=== PATIENT | female | born 1960 | race Caucasian/White ===

== ENCOUNTER → 2017-05-18 | Outpatient (CLI) | payer OTHER ==
[~2017-05-18] MED LIST: ADVIN25/60 INH; ALL100 PO; AMIL5TAB15 PO; ASPI81TA28 PO; ATOR-22 PO; ATOR-24 PO; BISO10TA4 PO; BISO5TAB3 PO; BUME2TAB3 PO; BUPR-79 PO; BUPR300T43 PO; BUSP-8 PO; BUSP15TA70 PO; CALC500C2 PO; CEFT1INJ6 IV; CHOL20007 PO; CLOP1TAB54 PO; CYAN10005 PO; DULO60CA44 PO; FAMO20TA11 PO; FLNIN; FLUT0.15 NAE; FLUTICASONE PROP INH; GABA-113 PO; HYDR-4079 PO; LVNIS40 SQ; METH-445 PO; METO5TAB2 PO; MONT1TAB5 PO; MULT-506 PO; NORT50CA PO; PANT40TA PO; QUET400T PO; SENN-61 PO; TRAZ100T29 PO; TRAZ1TAB52 PO; VENTOLIN INHALER INH; VNTHFA/IN INH
--- NOTE | 2017-05-18 12:43 | DIAGNOSTIC IMAGING REPORT ---
PELVIC COMPLETE NON OB, TRANSVAG-FEMALE PELVIS CLINICAL HISTORY: 56 years-old Female presenting with R19.00 Abdominal [id number]. TECHNIQUE: Real-time grayscale and color and spectral Doppler ultrasound imaging of the pelvis was performed first using a transabdominal probe and subsequently transvaginal for better characterization. COMPARISON: None. FINDINGS: Limited image quality secondary to patient body habitus. Uterus: Normal. Anteverted. The uterus measures 6.4 x 3.9 x 4.7 cm. Endometrial stripe measures 7 mm in thickness. Endometrium normal-appearing. Cervix normal. Right adnexa: Right ovary not visualized. Left adnexa: Left ovary not visualized. Other: Suspected bladder diverticulum extending into the left adnexa. IMPRESSION: Normal uterus. Nonvisualization of the ovaries. Electronically signed by: Chris Stuart M.D. 05/18/2017 12:42 PM Dictated Date/Time: 05/18/2017 12:39 PM
--- NOTE | 2017-05-18 12:43 | DIAGNOSTIC IMAGING REPORT ---
PELVIC COMPLETE NON OB, TRANSVAG-FEMALE PELVIS CLINICAL HISTORY: 56 years-old Female presenting with R19.00 Abdominal [id number]. TECHNIQUE: Real-time grayscale and color and spectral Doppler ultrasound imaging of the pelvis was performed first using a transabdominal probe and subsequently transvaginal for better characterization. COMPARISON: None. FINDINGS: Limited image quality secondary to patient body habitus. Uterus: Normal. Anteverted. The uterus measures 6.4 x 3.9 x 4.7 cm. Endometrial stripe measures 7 mm in thickness. Endometrium normal-appearing. Cervix normal. Right adnexa: Right ovary not visualized. Left adnexa: Left ovary not visualized. Other: Suspected bladder diverticulum extending into the left adnexa. IMPRESSION: Normal uterus. Nonvisualization of the ovaries. Electronically signed by: Chris Stuart M.D. 05/18/2017 12:42 PM Dictated Date/Time: 05/18/2017 12:39 PM
== END | disposition home or self-care (01) ==
LOC: C.ULTR 11:51
PROVIDERS: ATTEND Family Medicine
DX: R19.00 Intra-abdominal and pelvic swelling, mass and lump, unspecified site (principal)

== ENCOUNTER 2017-07-23 11:32 | Inpatient (IN) | payer OTHER ==
[~2017-07-23] VITALS: Ht 180.3 cm; Wt 193.5 kg
--- NOTE | 2017-07-23 12:25 | EMERGENCY ROOM VISIT NOTE ---
History Report prepared by Diane: Chano Chavarria Under the Supervision of: Dr. Will Crump M.D. First contact with patient: 12:13 Chief Complaint: NEURO SYMPTOMS Stated Complaint: STOKE A MONTH AGO, LEG CANT MOVE, TINGLING History of Present Illness The patient is a 56 year old female who presents to the Emergency Room with complaints of worsening left leg weakness that started around 10 hours ago. She states that she was awake, and around 0200 this morning, she noticed that her left leg "did not feel right", and she had problems moving the leg. The patient says that she also noticed tingling in her bilateral extremities starting around the same time this morning. She adds that she has had worsening balance issues starting this morning. The patient states that she had a similar problem with her left leg 3 weeks ago, where should could not move it, and she was seen at the [facility], and then sent to [place]. The patient says that she was told that she had a mini-stroke, and she received tPA, but it did not make a noticeable difference, so she was sent for rehab. She notes that she was discharged from rehab last week, but was still having some problems with weakness with her left leg, but this morning, the symptoms worsened. Per the patient's family, the patient was not able to walk into the hospital today, and usually is okay using a walker or cane. The patient says that it was not able to be determined what caused the mini-stroke. She states that she was put on Aspirin after the mini-stroke. The patient denies any left arm problems, facial numbness, cough, congestion, fevers, or headaches. The patient notes no history of atrial fibrillation or atrial flutter. She is not on any thyroid medications. Source of History: patient, family Onset: Around 10 hours ago Position: leg (left) Symptom Intensity: hard time moving it Quality: other (weakness) Timing: worsening Associated Symptoms: No fevers, No headache, No cough (or congestion), No numbness (facial) Note: Associated symptoms: Balance difficulties. Tingling bilateral extremities. Denies left arm problems, facial neuro problems. Review of Systems See HPI for pertinent positives & negatives. A total of 10 systems reviewed and were otherwise negative. Past Medical & Surgical Medical Problems: (1) Left leg weakness (2) TIA (transient ischemic attack) Family History No pertinent family history Social History Drug Use: none Marital Status: Occupation Status: disabled Current/Historical Medications Scheduled Allopurinol (Allopurinol), 1 TAB PO BID Amiloride Hcl (Amiloride Hcl), 1 TAB PO QAM Aspirin (Aspirin Ec), 81 MG PO QAM Atorvastatin (Lipitor), 20 MG PO QAM Bisoprolol Fumarate (Bisoprolol Fumarate), 5 MG PO QAM Bumetanide (Bumex), 2 MG PO QAM Bupropion (Wellbutrin Sr), 150 MG PO UD Buspirone Hcl (Buspirone Hcl), 15 MG PO TID Calcium Carbonate (Antacid) (Antacid), 0 PO UD Cholecalciferol (Vitamin D3), 1 TAB PO TID Clopidogrel Bisulfate (Plavix), 75 MG PO QAM Cyanocobalamin (Vitamin B-12), 1,000 MCG PO QAM Duloxetine Hcl (Cymbalta), 60 MG PO DAILY Famotidine (Pepcid), 20 MG PO UD Fluticasone Prop/Salmeterol (Advair Diskus 250/50 60 Dose), 1 PUFF INH BID Gabapentin (Neurontin), 900 MG PO HS Methocarbamol (Robaxin), 500 MG PO TID Metoclopramide Hcl (Metoclopramide Hcl), 5 MG PO QID Montelukast Sodium (Montelukast Sodium), 1 TAB PO DAILY Multivitamin (Multivitamin), 1 TAB PO DAILY Nortriptyline (Pamelor), 150 MG PO HS Quetiapine Fumarate (Seroquel), 400 MG PO HS Trazodone Hcl (Trazodone), 150 MG PO HS [Fluticasone Prop], 2 SPRAYS INH TID Scheduled PRN Hydrocodone/Acetaminophen 10MG/325MG (Dunellen 10MG/325MG), 1 TAB PO Q8H PRN for Pain [Ventolin Inhaler], 2 PUFFS INH Q4H PRN for Shortness of Breath Allergies Coded Allergies: Corticosteroids (Unverified Allergy, Intermediate, RASH, 07/23/17) Morphine (Unverified Allergy, Intermediate, MOUTH SWELLS/FACE SWELLS, ) Penicillins (Unverified Allergy, Intermediate, RASH/HIVES, 07/23/17) Prednisone (Unverified Allergy, Intermediate, RED RASH, 07/23/17) Pregabalin (Unverified Allergy, Intermediate, GOOFY, 07/23/17) Zolpidem (Unverified Allergy, Intermediate, UNSURE, 07/23/17) Physical Exam Vital Signs Date Time Temp Pulse Resp B/P (MAP) Pulse Ox O2 Delivery O2 Flow Rate FiO2 07/23/17 16:30 73 20 132/68 93 Room Air 07/23/17 16:00 72 20 142/94 94 Room Air 07/23/17 14:04 73 20 124/68 93 Room Air 07/23/17 13:11 77 20 130/81 95 Room Air 07/23/17 12:34 78 07/23/17 12:33 93 Room Air 07/23/17 12:29 36.8 78 20 126/81 95 Room Air Physical Exam GENERAL: Patient is in no acute distress. HEENT: No acute trauma, normocephalic atraumatic, mucous membranes moist, no nasal congestion, no scleral icterus. NECK: No stridor, no adenopathy, no meningismus, trachea is midline. LUNGS: Clear to auscultation bilaterally, no wheeze, no rhonchi, breath sounds equal. HEART: Without murmurs gallops or rubs, regular rate and rhythm. ABDOMEN: Soft, nontender, bowel sounds positive, no hernias, no peritonitis. EXTREMITIES: No cyanosis or edema, full range of motion of all the joints without pain or difficulty, no signs for acute trauma. NEUROLOGIC: No cerebellar deficits. Upper extremity strength equal, no facial droop or speech slur. Left leg is definitely weaker than right but exam is difficult secondary to patient's body habitus. SKIN: No rash, no jaundice, no diaphoresis. Medical Decision & Procedures ER Provider Diagnostic Interpretation: CT results as stated below per my review and radiologist interpretation: CT SCAN OF THE BRAIN WITHOUT IV CONTRAST CLINICAL HISTORY: Strokelike symptoms. COMPARISON STUDY: No priors. TECHNIQUE: Unenhanced axial CT scan of the brain is performed from the vertex to the skull base. A dose lowering technique was utilized adhering to the principles of ALARA. The examination is modestly degraded by motion artifact. CT DOSE: 884.08 mGy.cm FINDINGS: Brain parenchyma: The brain parenchyma is normal in appearance. There is no hemorrhage, mass effect, or evidence of acute territorial ischemia by CT criteria. Robles-white matter is preserved. No extra-axial fluid collection is seen. Ventricles, sulci, cisterns: Normal in configuration. Intracranial vasculature: The visualized intracranial vasculature at the skull base is normal in appearance. Calvarium: Unremarkable. Sinuses and mastoids: The visualized paranasal sinuses are clear. The mastoid air cells are well pneumatized. Orbits: The bony orbits are grossly intact. IMPRESSION: There is no hemorrhage, mass effect, or evidence of acute territorial ischemia by CT criteria noting a motion degraded examination. Electronically signed by: Will Hussein M.D. 07/23/2017 1:03 PM Dictated Date/Time: 07/23/2017 1:01 PM Laboratory Results 07/23/17 12:30 Red Blood Count 4.85, Mean Corpuscular Volume 85.4, Mean Corpuscular Hemoglobin 27.8, Mean Corpuscular Hemoglobin Concent 32.6, Mean Platelet Volume 9.8, Neutrophils (%) (Auto) 70.8, Lymphocytes (%) (Auto) 20.2, Monocytes (%) (Auto) 4.5, Eosinophils (%) (Auto) 4.0, Basophils (%) (Auto) 0.2, Neutrophils # (Auto) 6.32, Lymphocytes # (Auto) 1.80, Monocytes # (Auto) 0.40, Eosinophils # (Auto) 0.36, Basophils # (Auto) 0.02 07/23/17 12:30 Test 07/23/17 12:30 White Blood Count 8.93 K/uL (4.8-10.8) Red Blood Count 4.85 M/uL (4.2-5.4) Hemoglobin 13.5 g/dL (12.0-16.0) Hematocrit 41.4 % (37-47) Mean Corpuscular Volume 85.4 fL (80-100) Mean Corpuscular Hemoglobin 27.8 pg (25-34) Mean Corpuscular Hemoglobin Concent 32.6 g/dl (32-36) Platelet Count 268 K/uL (130-400) Mean Platelet Volume 9.8 fL (7.4-10.4) Neutrophils (%) (Auto) 70.8 % Lymphocytes (%) (Auto) 20.2 % Monocytes (%) (Auto) 4.5 % Eosinophils (%) (Auto) 4.0 % Basophils (%) (Auto) 0.2 % Neutrophils # (Auto) 6.32 K/uL (1.4-6.5) Lymphocytes # (Auto) 1.80 K/uL (1.2-3.4) Monocytes # (Auto) 0.40 K/uL (0.11-0.59) Eosinophils # (Auto) 0.36 K/uL (0-0.5) Basophils # (Auto) 0.02 K/uL (0-0.2) RDW Standard Deviation 46.8 fL (36.4-46.3) RDW Coefficient of Variation 15.0 % (11.5-14.5) Immature Granulocyte % (Auto) 0.3 % Immature Granulocyte # (Auto) 0.03 K/uL (0.00-0.02) Prothrombin Time 10.7 SECONDS (9.0-12.0) Prothromb Time International Ratio 1.0 (0.9-1.1) Activated Partial Thromboplast Time 25.4 SECONDS (21.0-31.0) Partial Thromboplastin Ratio 1.0 Urine Color YELLOW Urine Appearance CLEAR (CLEAR) Urine pH 6.0 (4.5-7.5) Urine Specific [place] 1.007 (1.000-1.030) Urine Protein NEG (NEG) Urine Glucose (UA) NEG (NEG) Urine Ketones NEG (NEG) Urine Occult Blood NEG (NEG) Urine Nitrite NEG (NEG) Urine Bilirubin NEG (NEG) Urine Urobilinogen NEG (NEG) Urine Leukocyte Esterase SMALL (NEG) Urine WBC (Auto) 10-30 /hpf (0-5) Urine RBC (Auto) 0-4 /hpf (0-4) Urine Hyaline Casts (Auto) 1-5 /lpf (0-5) Urine Epithelial Cells (Auto) >30 /lpf (0-5) Urine Bacteria (Auto) 1+ (NEG) Anion Gap 5.0 mmol/L (3-11) Est Creatinine Clear Calc Drug Dose 69.8 ml/min Estimated GFR () 39.8 Estimated GFR (Non- 34.3 BUN/Creatinine Ratio 8.3 (10-20) Calcium Level 9.2 mg/dl (8.5-10.1) Magnesium Level 2.1 mg/dl (1.8-2.4) Total Bilirubin 0.5 mg/dl (0.2-1) Direct Bilirubin 0.2 mg/dl (0-0.2) Aspartate Amino Transf (AST/SGOT) 23 U/L (15-37) Alanine Aminotransferase (ALT/SGPT) 42 U/L (12-78) Alkaline Phosphatase 98 U/L (45-117) Total Creatine Kinase 142 U/L (26-192) Creatine Kinase MB 3.0 ng/ml (0.5-3.6) Creatine Kinase MB Ratio 2.1 (0-3.0) Troponin I < 0.015 ng/ml (0-0.045) Total Protein 7.9 gm/dl (6.4-8.2) Albumin 3.6 gm/dl (3.4-5.0) Lipase 100 U/L (73-393) Thyroid Stimulating Hormone (TSH) 2.550 uIu/ml (0.300-4.500) Urine Opiates Screen POS (NEG) Urine Methadone, Qualitative NEG (NEG) Urine Barbiturates NEG (NEG) Urine Phencyclidine (PCP) Level NEG (NEG) Ur Amphetamine/Methamphetamine NEG (NEG) MDMA (Ecstasy) Screen POS (NEG) Urine Benzodiazepines Screen NEG (NEG) Urine Cocaine Metabolite NEG (NEG) Urine Marijuana (THC) NEG (NEG) Laboratory results reviewed by me. ECG Per My Interpretation Indication: weakness Rate (beats per minute): 82 Rhythm: normal sinus Findings: other (old inferior infarct, no ST elevation, no PVCs) ED Course 1213: The patient was evaluated in room C8. A complete history and physical exam was performed. 1413: I discussed the patient with Dr. Izzy De Jesus [facility] neurology - she says that she does not believe that this is a new stroke. We will talk to the patient about options, possibly physical therapy, based on what she can do at home. 1436: I reevaluated the patient and she is interested in some rehab. The shelter case manager is working on potential rehab options for her. 1717: Discussed the patient's case with Dr. Whit De Jesus [facility] stone derrickman and rigger. The patient will be evaluated for further management. 1718: Upon reexamination the patient is resting. I discussed results and treatment plan with the patient. She verbalizes agreement and understanding. The patient will be evaluated for further management. Medical Decision Differential diagnosis includes but is not limited to CVA, intracranial bleeding , UTI, electrolyte imbalance, anemia, infection, stroke. There is no leukocytosis or concerning anemia. No significant electrolyte abnormality, kidney failure or hepatitis. The patient appears to be in a euthyroid state. EKG shows a sinus rhythm, no acute ischemia. Cardiac enzyme testing 1 is not consistent with acute cardiac injury. Brain CT shows no acute bleed or mass-effect. Urinalysis shows contamination, no obvious infection. On exam, the patient's left leg was weaker than her right, no upper extremity findings, no speech slur. The patient was not toxic or febrile. I spoke with the on-call neurologist. The patient's weakness was felt likely secondary to her recent stroke, not a new stroke. The patient is not in any condition to be discharged home, she is too weak as per her family, they believe she requires further rehabilitation. Time was spent trying to get the patient placed into an inpatient rehab facility , this all failed. A hospital stay was recommended for now until placement can be achieved. I did review the records from the [facility], patient was diagnosed with a CVA, her stroke workup was negative. Case management has been involved, the on-call hospitalist was consulted. Medication Reconcilliation Current Medication List: was personally reviewed by me Blood Pressure Screening Patient's blood pressure: Normal blood pressure Consults Time Called: 1400 Consulting Physician: Dr. Izzy DE PAZ neurology Returned Call: 1413 I discussed the patient with Dr. Izzy DE PAZ neurology - she says that she does not believe that this is a new stroke. We will talk to the patient about options, possibly physical therapy, based on what she can do at home. Additional Consults: Time Called: 1715 Consulted Physician: Dr. Whit DE PAZ stone derrickman and rigger Returned Call: 1539 Additional Comments: Discussed the patient's case with Dr. Whit DE PAZ stone derrickman and rigger. The patient will be evaluated for further management. Impression Primary Impression: Left leg weakness Additional Impression: Status post CVA Scribe Attestation The scribe's documentation has been prepared under my direction and personally reviewed by me in its entirety. I confirm that the note above accurately reflects all work, treatment, procedures, and medical decision making performed by me. Departure Information Dispostion Being Evaluated By Hospitalist Referrals Etelvina Cazares DO (PCP) Patient Instructions [facility] Problem Qualifiers
[2017-07-23 12:43] LABS: BASO % 0.2 %; BASO ABS # 0.02 K/uL (0-0.2); EOS ABS # 0.36 K/uL (0-0.5); HEMATOCRIT 41.4 % (37-47); HEMOGLOBIN 13.5 g/dL (12.0-16.0); IG# 0.03 K/uL (0.00-0.02); LYMPH % 20.2 %; MEAN CELL VOLUME 85.4 fL (80-100); MEAN CORPUSCULAR HEMOGLOBIN 27.8 pg (25-34); MEAN CORPUSCULAR HGB CONC 32.6 g/dl (32-36); MEAN PLATELET VOLUME 9.8 fL (7.4-10.4); MONO % 4.5 %; NEUT % 70.8 %; NEUT ABS # 6.32 K/uL (1.4-6.5); PLATELET COUNT 268 K/uL (130-400); RED CELL DISTRIBUTION WIDTH SD 46.8 fL (36.4-46.3); WHITE BLOOD COUNT 8.93 K/uL (4.8-10.8)
[2017-07-23 12:52] LABS: PTT PATIENT 25.4 SECONDS (21.0-31.0)
[2017-07-23 13:01] LABS: ALBUMIN 3.6 gm/dl (3.4-5.0); ALT/SGPT 42 U/L (12-78); BLOOD UREA NITROGEN 14 mg/dl (7-18); CALCIUM 9.2 mg/dl (8.5-10.1); CARBON DIOXIDE 33 mmol/L (21-32); CREATININE 1.67 mg/dl (0.60-1.20); GLUCOSE 108 mg/dl (70-99); LIPASE 100 U/L (73-393); POTASSIUM 3.8 mmol/L (3.5-5.1); SODIUM 138 mmol/L (136-145)
--- NOTE | 2017-07-23 13:05 | DIAGNOSTIC IMAGING REPORT ---
CT SCAN OF THE BRAIN WITHOUT IV CONTRAST CLINICAL HISTORY: Strokelike symptoms. COMPARISON STUDY: No priors. TECHNIQUE: Unenhanced axial CT scan of the brain is performed from the vertex to the skull base. A dose lowering technique was utilized adhering to the principles of ALARA. The examination is modestly degraded by motion artifact. CT DOSE: 884.08 mGy.cm FINDINGS: Brain parenchyma: The brain parenchyma is normal in appearance. There is no hemorrhage, mass effect, or evidence of acute territorial ischemia by CT criteria. Robles-white matter is preserved. No extra-axial fluid collection is seen. Ventricles, sulci, cisterns: Normal in configuration. Intracranial vasculature: The visualized intracranial vasculature at the skull base is normal in appearance. Calvarium: Unremarkable. Sinuses and mastoids: The visualized paranasal sinuses are clear. The mastoid air cells are well pneumatized. Orbits: The bony orbits are grossly intact. IMPRESSION: There is no hemorrhage, mass effect, or evidence of acute territorial ischemia by CT criteria noting a motion degraded examination. Electronically signed by: Will Hussein M.D. 07/23/2017 1:03 PM Dictated Date/Time: 07/23/2017 1:01 PM
[2017-07-23 13:10] LABS: ALKALINE PHOSPHATASE 98 U/L (45-117); AST/SGOT 23 U/L (15-37); TOTAL PROTEIN 7.9 gm/dl (6.4-8.2)
[2017-07-23] MEDS ORDERED: FAMO20TA11 PO (13:15)
[2017-07-23] MEDS ORDERED: METO5TAB2 PO (13:15)
[2017-07-23] MEDS ORDERED: BUSP-8 PO (13:15)
[2017-07-23] MEDS ORDERED: GABA-113 PO (13:15)
[2017-07-23] MEDS ORDERED: ASPI81TA28 PO (13:15)
[2017-07-23] MEDS ORDERED: CYAN10005 PO (13:15)
[2017-07-23] MEDS ORDERED: METH500T37 PO (13:15)
[2017-07-23] MEDS ORDERED: BUPR-79 PO (13:15)
[2017-07-23] MEDS ORDERED: AMIL5TAB15 PO (13:15)
[2017-07-23] MEDS ORDERED: BISO10TA4 PO (13:15)
[2017-07-23] MEDS ORDERED: HYDR-4079 PO (13:15)
[2017-07-23] MEDS ORDERED: ALL100 PO (13:15)
[2017-07-23] MEDS ORDERED: ADVIN25/60 INH (13:15)
[2017-07-23] MEDS ORDERED: NORT50CA PO (13:15)
[2017-07-23] MEDS ORDERED: QUET400T PO (13:15)
[2017-07-23] MEDS ORDERED: MULT-506 PO (13:15)
[2017-07-23] MEDS ORDERED: CHOL20007 PO (13:15)
[2017-07-23] MEDS ORDERED: FLUTICASONE PROP INH (13:15)
[2017-07-23] MEDS ORDERED: BUME2TAB3 PO (13:15)
[2017-07-23] MEDS ORDERED: DULO60CA44 PO (13:15)
[2017-07-23] MEDS ORDERED: ATOR-22 PO (13:15)
[2017-07-23] MEDS ORDERED: CLOP1TAB54 PO (13:15)
[2017-07-23] MEDS ORDERED: TRAZ100T29 PO (13:15)
[2017-07-23] MEDS ORDERED: VENTOLIN INHALER INH (13:15)
[2017-07-23] MEDS ORDERED: MONT1TAB5 PO (13:15)
[2017-07-23] MEDS ORDERED: CALC500C2 PO (13:15)
[2017-07-23] MEDS ORDERED: MAGNESIUM HYDROXIDE SUSP 30 ML UDC PO PRN (17:45)
[2017-07-23] MEDS ORDERED: POLYETHYLENE (MIRALAX) 17 GM PACK PO PRN (17:45)
[2017-07-23] MEDS ORDERED: ONDANSETRON INJ 2 MG/ML 2 ML VIAL IV PRN (17:45)
[2017-07-23] MEDS ORDERED: ACETAMINOPHEN 325 MG TAB PO PRN (17:45)
[2017-07-23] MEDS ORDERED: ALUMINUM/MAGNESIUM/SIMETH (MAALOX MAX) 30 ML UDC PO PRN (17:45)
[2017-07-23 18:10] VITALS: O2SAT 93
--- NOTE | 2017-07-23 18:16 | History and Physical ---
History & Physical Date & Time of Service: Jul 23, 2017 at 17:50 Chief Complaint: Stoke A Month Ago, Leg Cant Move, Tingling Primary Care Physician: Etelvina Cazares DO History of Present Illness Source: patient, clinic records, hospital records Patient is a 56 y/o female, with PMHx of CVA treated w/ tPA, asthma, chronic back pain, depression w/ anxiety, bilateral lower extremity edema, gout, CKD stage III, HTN, HLD, peripheral neuropathy, vitamin D deficiency, and GERD, who presented to the ED because of worsening bilateral lower extremity weakness, L> R. Patient was seen in [facility] last week for LLE weakness. She was treated for CVA w/ tPA and transferred to [place]. Patient was placed on Plavix and ASA at discharged for a "mini stroke" and went to rehab. She was doing well at rehab and discharged home on Wednesday. Since Wednesday, she has noted progressive weakness in her lower extremities. +numbness/tingling to LLE. Has a h/o of peripheral neuropathy. Also noted, patient had bilateral lower extremity weakness prior to event last week- she was seeing outpatient PT. She usually is able to ambulated with a walker/cane, but has become too weak to do so. She states, "it feels like my knees are going to give out." Family is concerned and states they cannot care for her at home- ED tried to get patient into rehab but was unsuccessful; They spoke with Maryellen Shikha who may be able to take patient tomorrow. +edema to LLE, patient states this is chronic and looks better than usual. Patient denies any fever, chills, sweats, lightheadedness, dizziness, vision changes, CP, palpitations, edema, SOB, wheezing, cough, abdominal pain, nausea, vomiting, diarrhea, urinary symptoms, melena, muscle/ joint pain, anxiety/depression, active bleeding, or new skin discoloration/ changes. Past Medical/Surgical History CVA treated w/ tPA asthma chronic back pain depression w/ anxiety bilateral lower extremity edema gout HTN HLD CKD stage III peripheral neuropathy vitamin D deficiency GERD morbid obesity appendectomy cholecystectomy hernia repair bilateral knee replacements Family History Mother/father- heart disease Social History Smoking Status: Never Smoker Alcohol Use: none Drug Use: none Marital Status: Housing status: lives with family Occupational Status: disabled Allergies Coded Allergies: Corticosteroids (Unverified Allergy, Intermediate, RASH, 07/23/17) Morphine (Unverified Allergy, Intermediate, MOUTH SWELLS/FACE SWELLS, ) Penicillins (Unverified Allergy, Intermediate, RASH/HIVES, 07/23/17) Prednisone (Unverified Allergy, Intermediate, RED RASH, 07/23/17) Pregabalin (Unverified Allergy, Intermediate, GOOFY, 07/23/17) Zolpidem (Unverified Allergy, Intermediate, UNSURE, 07/23/17) Home Medications Scheduled Allopurinol (Allopurinol), 1 TAB PO BID Amiloride Hcl (Amiloride Hcl), 1 TAB PO QAM Aspirin (Aspirin Ec), 81 MG PO QAM Atorvastatin (Lipitor), 20 MG PO QAM Bisoprolol Fumarate (Bisoprolol Fumarate), 5 MG PO QAM Bumetanide (Bumex), 2 MG PO QAM Bupropion (Wellbutrin Sr), 150 MG PO UD Buspirone Hcl (Buspirone Hcl), 15 MG PO TID Calcium Carbonate (Antacid) (Antacid), 0 PO UD Cholecalciferol (Vitamin D3), 1 TAB PO TID Clopidogrel Bisulfate (Plavix), 75 MG PO QAM Cyanocobalamin (Vitamin B-12), 1,000 MCG PO QAM Duloxetine Hcl (Cymbalta), 60 MG PO DAILY Famotidine (Pepcid), 20 MG PO UD Fluticasone Prop/Salmeterol (Advair Diskus 250/50 60 Dose), 1 PUFF INH BID Gabapentin (Neurontin), 900 MG PO HS Methocarbamol (Robaxin), 500 MG PO TID Metoclopramide Hcl (Metoclopramide Hcl), 5 MG PO QID Montelukast Sodium (Montelukast Sodium), 1 TAB PO DAILY Multivitamin (Multivitamin), 1 TAB PO DAILY Nortriptyline (Pamelor), 150 MG PO HS Quetiapine Fumarate (Seroquel), 400 MG PO HS Trazodone Hcl (Trazodone), 150 MG PO HS [Fluticasone Prop], 2 SPRAYS INH TID Scheduled PRN Hydrocodone/Acetaminophen 10MG/325MG ([place] 10MG/325MG), 1 TAB PO Q8H PRN for Pain [Ventolin Inhaler], 2 PUFFS INH Q4H PRN for Shortness of Breath Physical Exam Vital Signs Date Time Temp Pulse Resp B/P (MAP) Pulse Ox O2 Delivery O2 Flow Rate FiO2 07/23/17 16:30 73 20 132/68 93 Room Air 07/23/17 16:00 72 20 142/94 94 Room Air 07/23/17 14:04 73 20 124/68 93 Room Air 07/23/17 13:11 77 20 130/81 95 Room Air 07/23/17 12:34 78 07/23/17 12:33 93 Room Air 07/23/17 12:29 36.8 78 20 126/81 95 Room Air General Appearance: no apparent distress, + obese Head: normocephalic, atraumatic Eyes: normal inspection, PERRL ENT: hearing grossly normal Neck: supple Respiratory/Chest: lungs clear, no respiratory distress, no accessory muscle use Cardiovascular: regular rate, rhythm Abdomen/GI: normal bowel sounds, non tender, soft Back: normal inspection Extremities/Musculoskelatal: no calf tenderness, + swelling (+1 pitting edema to LLE ) Neurologic/Psych: alert, normal mood/affect, oriented x 3, + sensory deficit ( decreased sensation to bilateral lower extremities ), + pertinent finding (no significant motor weakness, facial droop, slurred speech, pronator drift) Skin: normal color, warm/dry, no rash Diagnostics Laboratory Results Results Past 24 Hours Test 07/23/17 12:30 Range/Units White Blood Count 8.93 4.8-10.8 K/uL Red Blood Count 4.85 4.2-5.4 M/uL Hemoglobin 13.5 12.0-16.0 g/dL Hematocrit 41.4 37-47 % Mean Corpuscular Volume 85.4 80-100 fL Mean Corpuscular Hemoglobin 27.8 25-34 pg Mean Corpuscular Hemoglobin Concent 32.6 32-36 g/dl Platelet Count 268 130-400 K/uL Mean Platelet Volume 9.8 7.4-10.4 fL Neutrophils (%) (Auto) 70.8 % Lymphocytes (%) (Auto) 20.2 % Monocytes (%) (Auto) 4.5 % Eosinophils (%) (Auto) 4.0 % Basophils (%) (Auto) 0.2 % Neutrophils # (Auto) 6.32 1.4-6.5 K/uL Lymphocytes # (Auto) 1.80 1.2-3.4 K/uL Monocytes # (Auto) 0.40 0.11-0.59 K/uL Eosinophils # (Auto) 0.36 0-0.5 K/uL Basophils # (Auto) 0.02 0-0.2 K/uL RDW Standard Deviation 46.8 36.4-46.3 fL RDW Coefficient of Variation 15.0 11.5-14.5 % Immature Granulocyte % (Auto) 0.3 % Immature Granulocyte # (Auto) 0.03 0.00-0.02 K/uL Prothrombin Time 10.7 9.0-12.0 SECONDS Prothromb Time International Ratio 1.0 0.9-1.1 Activated Partial Thromboplast Time 25.4 21.0-31.0 SECONDS Partial Thromboplastin Ratio 1.0 Urine Color YELLOW Urine Appearance CLEAR CLEAR Urine pH 6.0 4.5-7.5 Urine Specific [place] 1.007 1.000-1.030 Urine Protein NEG NEG Urine Glucose (UA) NEG NEG Urine Ketones NEG NEG Urine Occult Blood NEG NEG Urine Nitrite NEG NEG Urine Bilirubin NEG NEG Urine Urobilinogen NEG NEG Urine Leukocyte Esterase SMALL NEG Urine WBC (Auto) 10-30 0-5 /hpf Urine RBC (Auto) 0-4 0-4 /hpf Urine Hyaline Casts (Auto) 1-5 0-5 /lpf Urine Epithelial Cells (Auto) >30 0-5 /lpf Urine Bacteria (Auto) 1+ NEG Sodium Level 138 136-145 mmol/L Potassium Level 3.8 3.5-5.1 mmol/L Chloride Level 100 98-107 mmol/L Carbon Dioxide Level 33 21-32 mmol/L Anion Gap 5.0 3-11 mmol/L Blood Urea Nitrogen 14 7-18 mg/dl Creatinine 1.67 0.60-1.20 mg/dl Est Creatinine Clear Calc Drug Dose 69.8 ml/min Estimated GFR () 39.8 Estimated GFR (Non- 34.3 BUN/Creatinine Ratio 8.3 10-20 Random Glucose 108 70-99 mg/dl Calcium Level 9.2 8.5-10.1 mg/dl Magnesium Level 2.1 1.8-2.4 mg/dl Total Bilirubin 0.5 0.2-1 mg/dl Direct Bilirubin 0.2 0-0.2 mg/dl Aspartate Amino Transf (AST/SGOT) 23 15-37 U/L Alanine Aminotransferase (ALT/SGPT) 42 12-78 U/L Alkaline Phosphatase 98 45-117 U/L Total Creatine Kinase 142 26-192 U/L Creatine Kinase MB 3.0 0.5-3.6 ng/ml Creatine Kinase MB Ratio 2.1 0-3.0 Troponin I < 0.015 0-0.045 ng/ml Total Protein 7.9 6.4-8.2 gm/dl Albumin 3.6 3.4-5.0 gm/dl Lipase 100 73-393 U/L Thyroid Stimulating Hormone (TSH) 2.550 0.300-4.500 uIu/ml Urine Opiates Screen POS NEG Urine Methadone, Qualitative NEG NEG Urine Barbiturates NEG NEG Urine Phencyclidine (PCP) Level NEG NEG Ur Amphetamine/Methamphetamine NEG NEG MDMA (Ecstasy) Screen POS NEG Urine Benzodiazepines Screen NEG NEG Urine Cocaine Metabolite NEG NEG Urine Marijuana (THC) NEG NEG Microbiology Results 07/23/17 Urine Culture, Received Pending Diagnostic Radiology CT SCAN OF THE BRAIN WITHOUT IV CONTRAST CLINICAL HISTORY: Strokelike symptoms. COMPARISON STUDY: No priors. TECHNIQUE: Unenhanced axial CT scan of the brain is performed from the vertex to the skull base. A dose lowering technique was utilized adhering to the principles of ALARA. The examination is modestly degraded by motion artifact. CT DOSE: 884.08 mGy.cm FINDINGS: Brain parenchyma: The brain parenchyma is normal in appearance. There is no hemorrhage, mass effect, or evidence of acute territorial ischemia by CT criteria. Robles-white matter is preserved. No extra-axial fluid collection is seen. Ventricles, sulci, cisterns: Normal in configuration. Intracranial vasculature: The visualized intracranial vasculature at the skull base is normal in appearance. Calvarium: Unremarkable. Sinuses and mastoids: The visualized paranasal sinuses are clear. The mastoid air cells are well pneumatized. Orbits: The bony orbits are grossly intact. IMPRESSION: There is no hemorrhage, mass effect, or evidence of acute territorial ischemia by CT criteria noting a motion degraded examination. Electronically signed by: Will Hussein M.D. 07/23/2017 1:03 PM Dictated Date/Time: 07/23/2017 1:01 PM The status of this report is Signed. Draft = Not yet reviewed or approved by Radiologist. Signed = Reviewed and approved by Radiologist. EKG CELIO ARGUELLES ID:[id number] 23-JUL-2017 12:28:09 [facility] Normal sinus rhythm Non-specific intra-ventricular conduction delay Cannot rule out Anterior infarct Left axis deviation Cannot rule out Inferior infarct Abnormal ECG No previous ECGs available Confirmed by ALYSON WICK MD ([id number]) on 07/23/2017 4:19:39 PM 25mm/s 10mm/mV 150Hz 8.0 SP2 12SL 241 LISET: 10 Referred by: Confirmed By: MD DELANO SHIELDS Vent. rate 82 BPM NM interval 190 ms QRS duration 124 ms QT/QTc 404/472 ms P-R-T axes 45 1960 (56 yr) Female Room: Loc:15 Rubber Stamp Maker:JEWELL Loja ind: Impression Assessment and Plan Patient is a 56 y/o female, with PMHx of CVA treated w/ tPA, asthma, chronic back pain, depression w/ anxiety, bilateral lower extremity edema, gout, CKD stage III, HTN, HLD, peripheral neuropathy, vitamin D deficiency, and GERD, who presented to the ED because of worsening bilateral lower extremity weakness, L> R. Bilateral lower extremity weakness- L>R: - Admit to med/surg - Head CT unremarkable - PT/OT consulted - CM consulted- hoping for 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: Follow PRP HTN: Continue Amiloride and Bisoprolol Peripheral neuropathy: - Continue b12 supplement and Gabapentin - Check b12/folate due to complaints of numbness/tingling; TSH WNL Vitamin D deficiency: - Continue Vitamin D supplement - Check Vitamin D level due to weakness Chronic lower extremity edema, L>R (normal): Continue Bumex Asthma- STABLE: Continue home inhalers Depression w/ anxiety: Continue Wellbutrin, Buspirone, Cymbalta, Seroquel, Trazodone, Nortriptyline Chronic back pain: Continue Robaxin and [place] PRN Gout: Continue Allopurinol Morbid obesity- noted GERD: Tums + Pepcid DVT prophylaxis: TEDs/SCDs, ambulation Dispo: From home, lives w/ daughter and parents- PT/OT and CM consulted Resident Physician Supervision Note: I was present with CLAUDIA Connelly during the history and exam. I discussed the case with the resident and agree with the findings and plan as documented in the note. Any exceptions or clarifications are listed here: 56 y/o F Hx CVA, morbid obesity, asthma, chronic back pain, depression w/ anxiety, bilateral lower extremity edema, gout, CKD III, HTN, HPL, peripheral neuropathy, GERD The pt essentially presents due to inability to ambulate. She has LE weakness and cannot support her own weight at present. We had intended to direct her from the ER to a rehab facility, however, this was not possible the same day and she therefore was assigned to overnight observation. OE AAO x 3 S1,2 R CTAB NT, ND Minimal LE edema P: Will proceed to rehab 07/24 - PT/OT eval pending Renal function is notably stable Cont Bisoprolol for HTN Cont meds as prescribed for asthma and depression Documented By: Jalen Sherman Resuscitation Status LEVEL I, FULL VTE Prophylaxis Will order VTE Prophylaxis: Yes
[2017-07-23 19:00] VITALS: BP 151/84; PULSE 77; TEMP 36.4; O2SAT 94; Ht 180.3 cm; Wt 193.5 kg
[2017-07-23] MEDS ORDERED: IV FLUIDS COMPLETED PRN (19:15)
[2017-07-23] MEDS ORDERED: ALBUTEROL HFA 8 GM INHALER INH PRN (19:45)
[2017-07-23] MEDS: FLUTICASONE/SALMETEROL 250/50 (ADVAIR) 14 PUFF/1 INHALER INH SCH (20:00)
[2017-07-23] MEDS ORDERED: GABAPENTIN 300 MG CAP PO SCH (21:00)
[2017-07-23] MEDS: FLUTICASONE PROPIONATE NA SPR 16 GM BTL SCH (21:00)
[2017-07-23] MEDS ORDERED: NURSING VERBAL MED ORDER ONE (21:00)
[2017-07-23] MEDS ORDERED: QUETIAPINE FUMARATE 200 MG TAB PO SCH (21:00)
[2017-07-23] MEDS ORDERED: NORTRIPTYLINE HCL 25 MG CAP PO SCH (21:00)
[2017-07-23] MEDS ORDERED: TRAZODONE HCL 50 MG TAB PO SCH (21:00)
[2017-07-23] MEDS: METOCLOPRAMIDE HCL 5 MG TAB PO SCH (21:11)
[2017-07-23] MEDS: METHOCARBAMOL 500 MG TAB PO SCH (21:11)
[2017-07-23] MEDS: BusPIRone 15 MG TAB PO SCH (21:11)
[2017-07-23] MEDS: ALLOPURINOL 100 MG TAB PO SCH (21:12)
[2017-07-23] MEDS: CHOLECALCIFEROL 1000 INTER.UNIT TAB PO SCH (21:12)
[2017-07-24 00:01] VITALS: BP 147/78; PULSE 70; TEMP 36.6; O2SAT 92
[2017-07-24 06:39] VITALS: BP 136/74; PULSE 87; O2SAT 94
[2017-07-24 07:03] VITALS: BP 115/73; PULSE 88; TEMP 36.8; O2SAT 92
[2017-07-24 07:17] VITALS: BP 138/87; PULSE 84; O2SAT 92
[2017-07-24] MEDS: FLUTICASONE/SALMETEROL 250/50 (ADVAIR) 14 PUFF/1 INHALER INH SCH (07:57)
[2017-07-24] MEDS ORDERED: FAMOTIDINE 20 MG TAB PO SCH (08:00)
[2017-07-24] MEDS ORDERED: CYANOCOBALAMIN 500 MCG TAB (VIT B-12) PO SCH (08:00)
[2017-07-24] MEDS ORDERED: BUMETANIDE 1 MG TAB PO SCH (08:00)
[2017-07-24] MEDS ORDERED: MULTIVITAMIN TAB PO SCH (08:00)
[2017-07-24] MEDS ORDERED: DULOXETINE HCL 60 MG CAP PO SCH (08:00)
[2017-07-24] MEDS ORDERED: MONTELUKAST SOD 10 MG TAB PO SCH (08:00)
[2017-07-24] MEDS: BusPIRone 15 MG TAB PO SCH ×2 (08:00→13:46)
[2017-07-24] MEDS: ALLOPURINOL 100 MG TAB PO SCH (08:00)
[2017-07-24] MEDS ORDERED: BuPROPion SR 150 MG TABCR PO SCH (08:00)
[2017-07-24] MEDS ORDERED: CLOPIDOGREL BISULFATE 75 MG TAB PO SCH (08:00)
[2017-07-24] MEDS: METHOCARBAMOL 500 MG TAB PO SCH ×2 (08:00→13:46)
[2017-07-24] MEDS ORDERED: ASPIRIN 81 MG ECTAB PO SCH (08:00)
[2017-07-24] MEDS ORDERED: ATORVASTATIN 20 MG TAB PO SCH (08:00)
[2017-07-24] MEDS: METOCLOPRAMIDE HCL 5 MG TAB PO SCH ×2 (08:01→12:17)
[2017-07-24] MEDS: CHOLECALCIFEROL 1000 INTER.UNIT TAB PO SCH ×2 (08:01→13:46)
[2017-07-24] MEDS: FLUTICASONE PROPIONATE NA SPR 16 GM BTL SCH (08:02)
[2017-07-24] MEDS: HYDROCODONE/ACETAMI 10/325 TAB PO PRN ×2 (08:06→16:04)
--- NOTE | 2017-07-24 10:51 | Hospitalist Progress Note ---
Hospitalist Progress Note Date of Service Jul 24, 2017. Subjective Pt evaluation today including: conversation w/ patient, conversation w/ content management consultant (Neurology) Voiding: no voiding problems Patient reports left lower extremity weakness similar to what took her to the hospital 3 weeks ago in [place] when she received TPA. She reports having a left-sided facial droop also at that time. She was transferred to [facility] where she said she had a number of tests of which she cannot recall the names. She reports she had CTs of the head but was not able to undergo a brain MRI due to claustrophobia. She was told she probably had a stroke. She is on aspirin and Plavix. She reports she went to rehab for 2 weeks and then came home from rehab 1 week ago. She reports her left lower extremity weakness was improved at that time but not completely resolved. She had a fall at home 1 week ago and then since then the left leg weakness returned. She has not been able to ambulate well at all. She denies any other weakness in any other extremity. Denies headaches, vision changes, she did have some paresthesias in the perioral region and bilateral hands and feet from last night through constantly till this morning. She denies chest pain or shortness of breath, denies heart palpitations. Denies abdominal pain or changes in bowel habits. Denies fecal or urinary incontinence. She has chronic lower back pain. Constitutional: No fever, No chills Eyes: + diplopia (Occasional) ENT: + problem reported (Some difficulty with speech for the last month) Respiratory: No problem reported Cardiovascular: No problem reported Abdomen: No problem reported Musculoskeletal: + problem reported (Chronic lower back pain) Psychiatric: + depression symptoms (Worsening lately, denies suicidal or homicidal ideations.) Skin: No rash All Other Systems: Reviewed and Negative Objective Vital Signs Date Time Temp Pulse Resp B/P (MAP) Pulse Ox O2 Delivery O2 Flow Rate FiO2 07/24/17 07:17 84 138/87 (104) 92 07/24/17 07:03 36.8 88 20 115/73 (87) 92 Room Air 07/24/17 06:39 87 18 136/74 (94) 94 Room Air 07/24/17 00:20 Room Air 07/24/17 00:01 36.6 70 21 147/78 (101) 92 Room Air 07/23/17 19:00 36.4 77 18 151/84 Room Air 07/23/17 19:00 36.4 77 18 151/84 (106) 94 Room Air 07/23/17 18:10 69 20 121/89 93 Room Air 07/23/17 16:30 73 20 132/68 93 Room Air 07/23/17 16:00 72 20 142/94 94 Room Air 07/23/17 14:04 73 20 124/68 93 Room Air 07/23/17 13:11 77 20 130/81 95 Room Air 07/23/17 12:34 78 07/23/17 12:33 93 Room Air 07/23/17 12:29 36.8 78 20 126/81 95 Room Air Physical Exam General Appearance: WD/WN, + obese (Morbidly obese) Eyes: normal inspection, sclerae normal ENT: hearing grossly normal, pharynx normal Neck: trachea midline Respiratory/Chest: lungs clear, normal breath sounds, no respiratory distress, no accessory muscle use Cardiovascular: regular rate, rhythm, no edema, no gallop, no murmur Abdomen: normal bowel sounds, non tender, soft, + pertinent finding (Very large pannus, no intertrigo) Extremities: non-tender, no calf tenderness, + swelling (Trace pitting edema left greater than right) Neurologic/Psychiatric: alert, normal mood/affect, oriented x 3, + pertinent finding (5 out of 5 strength throughout upper and lower extremities with the exception of 4-5 strength in the left hip flexors; sensation intact to light touch throughout lower extremities, unable to elicit DTRs in lower extremities) Skin: normal color, warm/dry, no rash Laboratory Results Last 24 Hours Test 07/23/17 12:30 07/24/17 06:47 White Blood Count 8.93 K/uL Red Blood Count 4.85 M/uL Hemoglobin 13.5 g/dL Hematocrit 41.4 % Mean Corpuscular Volume 85.4 fL Mean Corpuscular Hemoglobin 27.8 pg Mean Corpuscular Hemoglobin Concent 32.6 g/dl Platelet Count 268 K/uL Mean Platelet Volume 9.8 fL Neutrophils (%) (Auto) 70.8 % Lymphocytes (%) (Auto) 20.2 % Monocytes (%) (Auto) 4.5 % Eosinophils (%) (Auto) 4.0 % Basophils (%) (Auto) 0.2 % Neutrophils # (Auto) 6.32 K/uL Lymphocytes # (Auto) 1.80 K/uL Monocytes # (Auto) 0.40 K/uL Eosinophils # (Auto) 0.36 K/uL Basophils # (Auto) 0.02 K/uL RDW Standard Deviation 46.8 fL RDW Coefficient of Variation 15.0 % Immature Granulocyte % (Auto) 0.3 % Immature Granulocyte # (Auto) 0.03 K/uL Prothrombin Time 10.7 SECONDS Prothromb Time International Ratio 1.0 Activated Partial Thromboplast Time 25.4 SECONDS Partial Thromboplastin Ratio 1.0 Urine Color YELLOW Urine Appearance CLEAR Urine pH 6.0 Urine Specific [place] 1.007 Urine Protein NEG Urine Glucose (UA) NEG Urine Ketones NEG Urine Occult Blood NEG Urine Nitrite NEG Urine Bilirubin NEG Urine Urobilinogen NEG Urine Leukocyte Esterase SMALL Urine WBC (Auto) 10-30 /hpf Urine RBC (Auto) 0-4 /hpf Urine Hyaline Casts (Auto) 1-5 /lpf Urine Epithelial Cells (Auto) >30 /lpf Urine Bacteria (Auto) 1+ Sodium Level 138 mmol/L Potassium Level 3.8 mmol/L Chloride Level 100 mmol/L Carbon Dioxide Level 33 mmol/L Anion Gap 5.0 mmol/L Blood Urea Nitrogen 14 mg/dl Creatinine 1.67 mg/dl Est Creatinine Clear Calc Drug Dose 69.8 ml/min Estimated GFR () 39.8 Estimated GFR (Non- 34.3 BUN/Creatinine Ratio 8.3 Random Glucose 108 mg/dl Calcium Level 9.2 mg/dl Magnesium Level 2.1 mg/dl Total Bilirubin 0.5 mg/dl Direct Bilirubin 0.2 mg/dl Aspartate Amino Transf (AST/SGOT) 23 U/L Alanine Aminotransferase (ALT/SGPT) 42 U/L Alkaline Phosphatase 98 U/L Total Creatine Kinase 142 U/L Creatine Kinase MB 3.0 ng/ml Creatine Kinase MB Ratio 2.1 Troponin I < 0.015 ng/ml Total Protein 7.9 gm/dl Albumin 3.6 gm/dl Lipase 100 U/L Thyroid Stimulating Hormone (TSH) 2.550 uIu/ml Urine Opiates Screen POS Urine Methadone, Qualitative NEG Urine Barbiturates NEG Urine Phencyclidine (PCP) Level NEG Ur Amphetamine/Methamphetamine NEG MDMA (Ecstasy) Screen POS Urine Benzodiazepines Screen NEG Urine Cocaine Metabolite NEG Urine Marijuana (THC) NEG Vitamin B12 Level 837 pg/mL 25-Hydroxy Vitamin D Total 29.1 ng/ml Folate 5.94 ng/mL Assessment and Plan Patient is a 56 y/o female, with PMHx of recent presumed CVA treated w/ tPA, asthma, chronic lower back pain with spinal stenosis, depression w/ anxiety, bilateral lower extremity edema, gout, CKD stage III, HTN, HLD, peripheral neuropathy, vitamins B12 and d deficiency, and GERD, who presented to the ED because of worsening left lower extremity weakness Acute on chronic left lower extremity weakness-similar presentation to 3 weeks ago when she received TPA for presumed CVA although at that time had a left facial droop. Will request all records from [facility] today. Left lower extremity weakness had improved at rehab and then she fell again last week re-exacerbating the weakness. Suspect either due to spinal stenosis with radiculopathy or exacerbation of symptoms from previous presumed stroke. She was not able to have brain MRI at that time due to claustrophobia so stroke was never ruled in. Also with intermittent perioral and bilateral hand and foot paresthesias-not consistent with stroke symptoms Head CT unremarkable here - PT/OT consulted-will need SNF placement but needs 3 midnight stay -Consult neurology for further evaluation recommendations -Likely needs EMG/NCS as an outpatient -Checking B12 levels UA with contaminated sample-no need to treat with antibiotics h/o CVA, HLD: Continue ASA, Plavix, Lipitor but should be on higher intensity dose-will increase to 40 mg CKD stage III- unsure of baseline parent educator, but patient is aware that she does have this diagnosis. Creatinine here is 1.67 -: Follow PRP -Avoid nephrotoxins -Renally dose medications HTN: Stable -Patient's daughter is to bring her meds in from home to include Amiloride and Bisoprolol Peripheral neuropathy: Stable but likely contributing to falls - Continue b12 supplement and Gabapentin, Cymbalta, nortriptyline -TSH WNL -Follow-up B12 level Vitamin D deficiency: - Continue Vitamin D supplement - Check Vitamin D level due to weakness and falls Chronic lower extremity edema, L>R (normal): Continue Bumex Asthma- STABLE: -Continue home inhalers Advair and albuterol as needed Depression w/ anxiety: States has had worsening depressive symptoms. No SI or HI at this time -Continue home doses of Wellbutrin, Buspirone, Cymbalta, Seroquel, Trazodone, Nortriptyline Chronic back pain: No acute issues -Continue Robaxin and [place] PRN Gout: No acute issues -Continue Allopurinol Morbid obesity- noted Suspected gastroparesis-is on Reglan at home -Patient unsure of diagnosis -Continue Reglan 4 times daily GERD: No acute issues -Tums + Pepcid DVT prophylaxis: TEDs/SCDs, ambulation Dispo: From home, lives w/ daughter and parents- PT/OT and CM consulted-plan for SNF placement after 3 midnight stay on Wednesday
--- NOTE | 2017-07-24 11:41 | Neurology Consultation ---
Neurology Consultation Date of Consultation: Jul 24, 2017. Attending Physician: Neda Turner MD Primary Care Physician: Etelvina Cazares DO Reason for Consultation: Worsening left leg weakness History of Present Illness Source: patient, hospital records This is a 56-year-old female who presents due to worsening left leg weakness. She reports that approximately 3 weeks ago she went to [place] [facility] for sudden left lower extremity weakness. Was felt to likely be a stroke event and she received IV TPA and was transferred to [facility]. She reports that she was there for 4-5 days. Supposedly unremarkable workup. She was discharged to a rehab facility and was discharged from physical therapy on Wednesday and returned home. She lives with her daughter. She denied any significant improvement with her leg weakness after TPA. She was already taking aspirin and Plavix was added to her medications. She reports that she came in because of worsening left lower extremity weakness that seem to slowly be progressive over the week but seemed to be significant only worse on presentation. The only new symptom that she notes is possibly some intermittent double vision. She denies any loss of vision. She reports that her speech has been a little bit off for the last few weeks and then describes it more as easily forgetting what she was saying. She denies any new weakness. She does report some worsening low back pain for last couple months. She denies any shooting pain down her legs. Denies any injury to her back. Denies any numbness that is new in the lower extremities. She does report some baseline neuropathy in her feet. She denied that there was ever any numbness or weakness in her upper extremity with these events. She reports with the initial event 3 weeks ago she did have some possible mild left lower facial droop. She denied any facial droop with this episode. Denies any trouble eating or swallowing. She reports that when she got out of [facility] 3 weeks ago she was mainly in a wheelchair and was able to transfer a little bit. Sounds like she was having significant difficulty walking. Before this episode 3 weeks ago she reportedly would walk with a walker or cane. CT of the head report and images were reviewed by myself and unremarkable. No signs of acute changes or large ischemic stroke Patient reports that she is extremely claustrophobic and cannot do MRI. She reports that MRI was attempted at [facility] but she was not able to do it even with Ativan. Recent labs reviewed. Creatinine 1.6. B12 level and TSH unremarkable. UA was also unremarkable. Review of systems she reports a single episode of diffuse numbness and tingling in all of her extremities and face bilaterally. Past Medical/Surgical History Medical Problems: (1) Left leg weakness Status: Chronic (2) Status post CVA Status: Acute CVA treated w/ tPA 3 weeks ago at [facility] asthma chronic back pain depression w/ anxiety bilateral lower extremity edema gout HTN HLD CKD stage III peripheral neuropathy vitamin D deficiency GERD morbid obesity Family History CAD Social History Patient lives with her daughter. Ambulated with a cane or walker before her stroke like event 3 weeks ago. Since then has mainly been in a wheelchair with transferring. Denies any tobacco use. Alcohol Use: none Drug Use: none Marital Status: Occupation Status: disabled Allergies Coded Allergies: Corticosteroids (Unverified Allergy, Intermediate, RASH, 07/23/17) Morphine (Unverified Allergy, Intermediate, MOUTH SWELLS/FACE SWELLS, ) Penicillins (Unverified Allergy, Intermediate, RASH/HIVES, 07/23/17) Prednisone (Unverified Allergy, Intermediate, RED RASH, 07/23/17) Pregabalin (Unverified Allergy, Intermediate, GOOFY, 07/23/17) Zolpidem (Unverified Allergy, Intermediate, UNSURE, 07/23/17) Current Inpatient Medications Current Inpatient Medications Medications (Trade) Dose Ordered Sig/Nader Route Start Time Stop Time Status Last Admin Dose Admin Acetaminophen (Tylenol Tab) 650 mg Q4H PRN PO 07/23/17 17:45 08/22/17 17:44 Al Hydrox/Mg Hydrox/Simethicone (Maalox Max Susp) 15 ml Q4H PRN PO 07/23/17 17:45 08/22/17 17:44 Magnesium Hydroxide (Milk Of Magnesia Susp) 30 ml Q6H PRN PO 07/23/17 17:45 08/22/17 17:44 Polyethylene (Miralax Powder Packet) 17 gm DAILY PRN PO 07/23/17 17:45 08/22/17 17:44 Ondansetron HCl (Zofran Inj) 4 mg Q6H PRN IV 07/23/17 17:45 08/22/17 17:44 Allopurinol (Zyloprim Tab) 100 mg BID PO 07/23/17 20:00 08/22/17 20:59 07/24/17 08:00 100 MG Aspirin (Ecotrin Tab) 81 mg QAM PO 07/24/17 08:00 08/23/17 08:59 07/24/17 07:58 81 MG Bumetanide (Bumex Tab) 2 mg QAM PO 07/24/17 08:00 08/23/17 08:59 07/24/17 07:59 2 MG Clopidogrel Bisulfate (plAVix TAB) 75 mg QAM PO 07/24/17 08:00 08/23/17 08:59 07/24/17 07:59 75 MG Cyanocobalamin (Vitamin B-12 Tab) 1,000 mcg QAM PO 07/24/17 08:00 08/23/17 08:59 07/24/17 07:58 1,000 MCG Duloxetine HCl (Cymbalta Cap) 60 mg DAILY PO 07/24/17 08:00 08/23/17 08:59 07/24/17 08:00 60 MG Salmeterol Xinafoate/ Fluticasone (Advair Diskus 250/50 Inh) 1 puff BID INH 07/23/17 20:00 08/22/17 20:59 07/24/17 07:57 1 PUFF Gabapentin (Neurontin Cap) 900 mg HS PO 07/23/17 21:00 08/22/17 20:59 07/23/17 21:12 900 MG Acetaminophen/ Hydrocodone Bitart (Kouts 10/325 Tab) 1 tab Q8H PRN PO 07/23/17 17:45 08/06/17 17:44 07/24/17 08:06 1 TAB Methocarbamol (Robaxin Tab) 500 mg TID PO 07/23/17 20:00 08/22/17 20:59 07/24/17 08:00 500 MG Metoclopramide HCl (Reglan Tab) 5 mg QID PO 07/23/17 20:00 08/22/17 20:59 07/24/17 08:01 5 MG Montelukast Sodium (Singulair Tab) 10 mg QAM PO 07/24/17 08:00 08/23/17 07:59 07/24/17 07:59 10 MG Multivitamins (Multivitamin Tab) 1 tab DAILY PO 07/24/17 08:00 08/23/17 08:59 07/24/17 08:00 1 TAB Nortriptyline HCl (Pamelor Cap) 150 mg HS PO 07/23/17 21:00 08/22/17 20:59 07/23/17 21:12 150 MG Quetiapine Fumarate (seroQUEL TAB) 400 mg HS PO 07/23/17 21:00 08/22/17 20:59 07/23/17 21:12 400 MG Trazodone HCl (Desyrel Tab) 150 mg HS PO 07/23/17 21:00 08/22/17 20:59 07/23/17 21:12 150 MG Miscellaneous Information (Order Awaiting Action) 1 ea QS N/A 07/24/17 19:30 08/23/17 19:29 Miscellaneous Information (Order Awaiting Action) 1 ea QS N/A 07/23/17 20:00 08/22/17 19:59 Buspirone HCl (BusPAR TAB) 15 mg TID PO 07/23/17 20:00 08/22/17 19:59 07/24/17 08:00 15 MG Cholecalciferol (Vitamin D Tab) 2,000 inter.unit TID PO 07/23/17 20:00 08/22/17 19:59 07/24/17 08:01 2,000 INTER.UNIT Fluticasone Propionate (Flonase Nasal Watson) 2 sprays BID NA 07/23/17 21:00 08/22/17 20:59 07/24/17 08:02 2 SPRAYS Albuterol (Ventolin Hfa Inhaler) 4 puffs Q4H PRN INH 07/23/17 19:45 08/22/17 19:44 Miscellaneous (Iv Fluids Completed) 1 ea PRN PRN N/A 07/23/17 19:15 07/23/18 19:14 Famotidine (Pepcid Tab) 20 mg QAM PO 07/24/17 08:00 08/23/17 07:59 07/24/17 09:43 20 MG Bupropion HCl (Wellbutrin-Sr Tab) 150 mg QAM PO 07/24/17 08:00 08/23/17 07:59 07/24/17 09:09 150 MG Atorvastatin Calcium (Lipitor Tab) 40 mg QAM PO 07/25/17 08:00 08/23/17 08:59 Review of Systems Complete review of systems otherwise negative except for the above noted in HPI Physical Exam Vital Signs (Past 24 Hrs): Date Time Temp Pulse Resp B/P (MAP) Pulse Ox O2 Delivery O2 Flow Rate FiO2 07/24/17 08:10 Room Air 07/24/17 07:17 84 138/87 (104) 92 07/24/17 07:03 36.8 88 20 115/73 (87) 92 Room Air 07/24/17 06:39 87 18 136/74 (94) 94 Room Air 07/24/17 00:20 Room Air 07/24/17 00:01 36.6 70 21 147/78 (101) 92 Room Air 07/23/17 19:00 36.4 77 18 151/84 Room Air 07/23/17 19:00 36.4 77 18 151/84 (106) 94 Room Air 07/23/17 18:10 69 20 121/89 93 Room Air 07/23/17 16:30 73 20 132/68 93 Room Air 07/23/17 16:00 72 20 142/94 94 Room Air 07/23/17 14:04 73 20 124/68 93 Room Air 07/23/17 13:11 77 20 130/81 95 Room Air 07/23/17 12:34 78 07/23/17 12:33 93 Room Air 07/23/17 12:29 36.8 78 20 126/81 95 Room Air Gen.: Patient is alert and sitting in bed, in no acute distress. HEENT: Normocephalic /atraumatic, no scleral icterus Heart: Regular rate and rhythm Extremities: No gross deformities or rashes noted Neurological examination: Mental status: Patient is alert and oriented x3. Attention and concentration normal for the situation. Good fund of knowledge. Remote and recent memory intact. Speech is fluent without any dysarthria or aphasia noted Cranial nerve: Visual razo intact accounting. Funduscopic examination was unremarkable. No papilledema. Pupils equally round and reactive to light. Extraocular muscles intact without nystagmus. No facial asymmetry noted. Facial sensation intact. Tongue is midline. Good palatal elevation. Good shoulder shrug bilaterally. Hearing grossly intact to voice. Strength: 5/5 both proximal and distally in all extremities. There is no arm drift. Tone is normal. Sensation: Grossly intact to light touch in all extremities. Does report some moderate to severe decreased sensation to sharp in bilateral distal lower extremities Deep tendon reflexes: +1 in bilateral biceps, brachioradialis and patellar. Toes were equivocal to plantar stimulation Coordination: Patient had good finger to nose without dysmetria Station within the bed was normal Laboratory Results Past 24 Hours: 07/23/17 12:30 Red Blood Count 4.85, Mean Corpuscular Volume 85.4, Mean Corpuscular Hemoglobin 27.8, Mean Corpuscular Hemoglobin Concent 32.6, Mean Platelet Volume 9.8, Neutrophils (%) (Auto) 70.8, Lymphocytes (%) (Auto) 20.2, Monocytes (%) (Auto) 4.5, Eosinophils (%) (Auto) 4.0, Basophils (%) (Auto) 0.2, Neutrophils # (Auto) 6.32, Lymphocytes # (Auto) 1.80, Monocytes # (Auto) 0.40, Eosinophils # (Auto) 0.36, Basophils # (Auto) 0.02 07/23/17 12:30 Test 07/23/17 12:30 07/24/17 06:47 White Blood Count 8.93 K/uL (4.8-10.8) Red Blood Count 4.85 M/uL (4.2-5.4) Hemoglobin 13.5 g/dL (12.0-16.0) Hematocrit 41.4 % (37-47) Mean Corpuscular Volume 85.4 fL (80-100) Mean Corpuscular Hemoglobin 27.8 pg (25-34) Mean Corpuscular Hemoglobin Concent 32.6 g/dl (32-36) Platelet Count 268 K/uL (130-400) Mean Platelet Volume 9.8 fL (7.4-10.4) Neutrophils (%) (Auto) 70.8 % Lymphocytes (%) (Auto) 20.2 % Monocytes (%) (Auto) 4.5 % Eosinophils (%) (Auto) 4.0 % Basophils (%) (Auto) 0.2 % Neutrophils # (Auto) 6.32 K/uL (1.4-6.5) Lymphocytes # (Auto) 1.80 K/uL (1.2-3.4) Monocytes # (Auto) 0.40 K/uL (0.11-0.59) Eosinophils # (Auto) 0.36 K/uL (0-0.5) Basophils # (Auto) 0.02 K/uL (0-0.2) RDW Standard Deviation 46.8 fL (36.4-46.3) RDW Coefficient of Variation 15.0 % (11.5-14.5) Immature Granulocyte % (Auto) 0.3 % Immature Granulocyte # (Auto) 0.03 K/uL (0.00-0.02) Prothrombin Time 10.7 SECONDS (9.0-12.0) Prothromb Time International Ratio 1.0 (0.9-1.1) Activated Partial Thromboplast Time 25.4 SECONDS (21.0-31.0) Partial Thromboplastin Ratio 1.0 Urine Color YELLOW Urine Appearance CLEAR (CLEAR) Urine pH 6.0 (4.5-7.5) Urine Specific [place] 1.007 (1.000-1.030) Urine Protein NEG (NEG) Urine Glucose (UA) NEG (NEG) Urine Ketones NEG (NEG) Urine Occult Blood NEG (NEG) Urine Nitrite NEG (NEG) Urine Bilirubin NEG (NEG) Urine Urobilinogen NEG (NEG) Urine Leukocyte Esterase SMALL (NEG) Urine WBC (Auto) 10-30 /hpf (0-5) Urine RBC (Auto) 0-4 /hpf (0-4) Urine Hyaline Casts (Auto) 1-5 /lpf (0-5) Urine Epithelial Cells (Auto) >30 /lpf (0-5) Urine Bacteria (Auto) 1+ (NEG) Anion Gap 5.0 mmol/L (3-11) Est Creatinine Clear Calc Drug Dose 69.8 ml/min Estimated GFR () 39.8 Estimated GFR (Non- 34.3 BUN/Creatinine Ratio 8.3 (10-20) Calcium Level 9.2 mg/dl (8.5-10.1) Magnesium Level 2.1 mg/dl (1.8-2.4) Total Bilirubin 0.5 mg/dl (0.2-1) Direct Bilirubin 0.2 mg/dl (0-0.2) Aspartate Amino Transf (AST/SGOT) 23 U/L (15-37) Alanine Aminotransferase (ALT/SGPT) 42 U/L (12-78) Alkaline Phosphatase 98 U/L (45-117) Total Creatine Kinase 142 U/L (26-192) Creatine Kinase MB 3.0 ng/ml (0.5-3.6) Creatine Kinase MB Ratio 2.1 (0-3.0) Troponin I < 0.015 ng/ml (0-0.045) Total Protein 7.9 gm/dl (6.4-8.2) Albumin 3.6 gm/dl (3.4-5.0) Lipase 100 U/L (73-393) Thyroid Stimulating Hormone (TSH) 2.550 uIu/ml (0.300-4.500) Urine Opiates Screen POS (NEG) Urine Methadone, Qualitative NEG (NEG) Urine Barbiturates NEG (NEG) Urine Phencyclidine (PCP) Level NEG (NEG) Ur Amphetamine/Methamphetamine NEG (NEG) MDMA (Ecstasy) Screen POS (NEG) Urine Benzodiazepines Screen NEG (NEG) Urine Cocaine Metabolite NEG (NEG) Urine Marijuana (THC) NEG (NEG) Vitamin B12 Level 837 pg/mL (211-911) 25-Hydroxy Vitamin D Total 29.1 ng/ml (30-100) Folate 5.94 ng/mL (>5.38) Imaging As noted above in HPI Impression This is a 56-year-old female who presents with worsening left lower extremity weakness. I think this is likely a pseudo-flare from her strokelike event 3 weeks ago, since physical therapy was discontinued on Wednesday. Does not sound like she has any new focal neurological deficits highly specific for new stroke. Episode of full body numbness and tingling is nonspecific and could be related to metabolic or anxiety Episode of diplopia also nonspecific at this time. While the patient does report some worsening back pain over the last 2 months, nothing specific for lumbar radiculopathy such as shooting pain or numbness in that extremity. Plan Discussed the possibility of getting a repeat MRI of the brain to rule out repeat stroke and MRI of the lumbar spine to rule out lumbar lesion that could cause left lower extremity weakness. The patient reports that she is extremely claustrophobic and she has not been able to tolerate MRIs even with Ativan in the past. Recommend inpatient physical therapy and occupational therapy since it appears the family is unable to care for the patient in current state. Patient reports she already has an outpatient neurologist in [place]. Can follow-up with that neurologist for stroke follow-up and if no significant improvement in her left lower extremity weakness, could consider an EMG as an outpatient to rule out lumbar radiculopathy. Thank you for allowing me to participate in this patient's care. If there is any questions or concerns, feel free to call/page me
[2017-07-24 14:35] VITALS: BP 139/54; PULSE 73; TEMP 36.8; O2SAT 90
[2017-07-24] MEDS ORDERED: ATOR-22 PO (16:36)
[2017-07-24] MEDS ORDERED: FLNIN (16:36)
[2017-07-24] MEDS ORDERED: FAMO20TA11 PO (16:36)
--- NOTE | 2017-07-24 16:42 | Discharge Instructions ---
Discharge Instructions Date of Service Jul 24, 2017. Admission Reason for Admission: Left Leg Weakness Discharge Discharge Diagnosis / Problem: Left leg weakness Discharge Goals Goal(s): Improve disease control, Diagnostic testing, Therapeutic intervention Activity Recommendations Activity Level: Assistance Required Therapies: Physical Therapy, Occupational Therapy Exercise/Sports Limitations: gradually increase as tolerated . Additional Information Patient informed of condition: Yes Advance Directives: No DNR: No Level of Care: Acute Rehab Communicable Disease: No Prognosis: Stable Oxygen at (LPM): N/A Instructions / Follow-Up Instructions / Follow-Up Patient is a 56 y/o female, with PMHx of recent presumed CVA treated w/ tPA, asthma, chronic lower back pain with spinal stenosis, depression w/ anxiety, bilateral lower extremity edema, gout, CKD stage III, HTN, HLD, peripheral neuropathy, vitamins B12 and d deficiency, and GERD, who presented to the ED because of worsening left lower extremity weakness Acute on chronic left lower extremity weakness-similar presentation to 3 weeks ago when she received TPA for presumed CVA although at that time had a left facial droop. Requested all records from [facility] but did not arrive prior to discharge. Left lower extremity weakness had improved at rehab but not completely, and then she fell again last week re-exacerbating the weakness. Suspect either due to spinal stenosis with radiculopathy or exacerbation of symptoms from pseudo- flare of her previous presumed stroke. She was not able to have brain MRI at that time due to claustrophobia so stroke was never ruled in. Seen by neurology here who did recommend repeat brain MRI and lumbar spine MRI for further clarification, however patient just absolutely cannot tolerate getting an MRI due to claustrophobia. 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 Creatinine here is 1.67 -: Follow PRP periodically -Avoid nephrotoxins -Renally dose medications HTN: Stable -Continue amiloride and Bisoprolol-of note, the patient's daughter was to bring these in from home and she did not receive them today 07/24 Peripheral neuropathy: Stable but likely contributing to falls, B12 level normal as above - Continue b12 supplement and Gabapentin, Cymbalta, nortriptyline -TSH WNL Vitamin D deficiency: Vitamin D level 29 here - Continue Vitamin D supplement Chronic lower extremity edema, L>R (normal): Continue Bumex, amiloride Asthma- STABLE: -Continue home inhalers Advair and albuterol as needed Depression w/ anxiety: States has had worsening depressive symptoms. No SI or HI at this time -Continue home doses of Wellbutrin, Buspirone, Cymbalta, Seroquel, Trazodone, Nortriptyline Chronic back pain: No acute issues -Continue Robaxin and [place] PRN Gout: No acute issues -Continue Allopurinol Morbid obesity- noted -Could benefit from intensive weight loss program and/or referral for bariatric surgery Suspected gastroparesis? -Continue Reglan 4 times daily GERD: No acute issues -Tums + Pepcid DVT prophylaxis: TEDs/SCDs, ambulation Dispo: From home, lives w/ daughter and parents- PT/OT and CM consulted-plan for transfer to acute inpatient rehab today Current Hospital Diet Patient's current hospital diet: AHA Diet (Heart Healthy) Discharge Diet Recommended Diet: AHA Diet (Heart Healthy) Procedures Procedures Performed: CT head Pending Studies Studies pending at discharge: no Physician Orders On Transfer Special Precautions: Fall risk Vital Signs: Routine Weigh: Routine POLST Discussion: Not Applicable Laboratory Results Last 24 Hours Test 07/24/17 06:47 Vitamin B12 Level 837 pg/mL 25-Hydroxy Vitamin D Total 29.1 ng/ml Folate 5.94 ng/mL Medical Emergencies . Who to Call and When: Medical Emergencies: If at any time you feel your situation is an emergency, please call 911 immediately. . Non-Emergent Contact Non-Emergency issues call your: Primary Care Provider Call Non-Emergent contact if: your pain is not controlled, your pain is worsening, your pain is unusual for you, your pain is concerning you, you have any medication questions . . "Provider Documentation" section prepared by Neda Turner. . Core Measure Problem Core Measures: None
--- NOTE | 2017-07-24 16:46 | Discharge Summary ---
Discharge Summary Date of Service Jul 24, 2017. Discharge Summary Admission Date: Jul 24, 2017 at 10:12 Discharge Date: Jul 24, 2017 Discharge Disposition: Rehab Principal Diagnosis: Left leg weakness Problems/Secondary Diagnoses: History of CVA treated w/ tPA asthma Chronic lower back pain with spinal stenosis Depression w/ anxiety Bilateral lower extremity edema Gout CKD stage III HTN HLD Peripheral neuropathy Vitamin B12 deficiency Vitamin D deficiency GERD Morbid obesity, BMI 59.5 Gastroparesis Procedures: Head CT Consultations: Neurology Medication Reconciliation New Medications: Fluticasone Propionate (Fluticasone Propionate) 50 Mcg/Act Spr 2 SPRAYS NA BID for 30 Days Changed Medications: Atorvastatin (Lipitor) 20 Mg Tab 40 MG PO QAM for 30 Days (Changed from: 20 MG) Famotidine (Pepcid) 20 Mg Tab 20 MG PO QAM for 30 Days (Changed from: UD) Continued Medications: Allopurinol (Allopurinol) 100 Mg Tab 1 TAB PO BID Amiloride Hcl (Amiloride Hcl) 5 Mg Tab 1 TAB PO QAM Aspirin (Aspirin Ec) 81 Mg Tab 81 MG PO QAM Bisoprolol Fumarate (Bisoprolol Fumarate) 10 Mg Tab 5 MG PO QAM Bumetanide (Bumex) 2 Mg Tab 2 MG PO QAM Bupropion (Wellbutrin Sr) 150 Mg Ertab 150 MG PO UD Buspirone Hcl (Buspirone Hcl) 10 Mg Tab 15 MG PO TID Calcium Carbonate (Antacid) (Antacid) 500 Mg Chw 0 PO UD Cholecalciferol (Vitamin D3) 2,000 Unit Tab 1 TAB PO TID Clopidogrel Bisulfate (Plavix) 75 Mg Tab 75 MG PO QAM Cyanocobalamin (Vitamin B-12) 1,000 Mcg Tab 1000 MCG PO QAM Duloxetine Hcl (Cymbalta) 60 Mg Cap 60 MG PO DAILY Fluticasone Prop/Salmeterol (Advair Diskus 250/50 60 Dose) 1 Ea Aerp 1 PUFF INH BID Gabapentin (Neurontin) 300 Mg Cap 900 MG PO HS Hydrocodone/Acetaminophen 10MG/325MG (Yantic 10MG/325MG) Tab 1 TAB PO Q8H PRN for Pain PRN PAIN Methocarbamol (Robaxin) 500 Mg Tab 500 MG PO TID Metoclopramide Hcl (Metoclopramide Hcl) 5 Mg Tab 5 MG PO QID Montelukast Sodium (Montelukast Sodium) 10 Mg Tab 1 TAB PO DAILY Multivitamin (Multivitamin) Tab 1 TAB PO DAILY Nortriptyline (Pamelor) 50 Mg Cap 150 MG PO HS Quetiapine Fumarate (Seroquel) 400 Mg Tab 400 MG PO HS Trazodone Hcl (Trazodone) 100 Mg Tab 150 MG PO HS [Ventolin Inhaler] () 2 PUFFS INH Q4H PRN for Shortness of Breath Discontinued Medications: [Fluticasone Prop] () 2 SPRAYS INH TID Discharge Exam Patient reports left lower extremity weakness similar to what took her to the hospital 3 weeks ago in [place] when she received TPA. She reports having a left-sided facial droop also at that time. She was transferred to [facility] where she said she had a number of tests of which she cannot recall the names. She reports she had CTs of the head but was not able to undergo a brain MRI due to claustrophobia. She was told she probably had a stroke. She is on aspirin and Plavix. She reports she went to rehab for 2 weeks and then came home from rehab 1 week ago. She reports her left lower extremity weakness was improved at that time but not completely resolved. She had a fall at home 1 week ago and then since then the left leg weakness returned. She has not been able to ambulate well at all. She denies any other weakness in any other extremity. Denies headaches, vision changes, she did have some paresthesias in the perioral region and bilateral hands and feet from last night through constantly till this morning. She denies chest pain or shortness of breath, denies heart palpitations. Denies abdominal pain or changes in bowel habits. Denies fecal or urinary incontinence. She has chronic lower back pain. Constitutional: No fever, No chills Eyes: + diplopia (Occasional) ENT: + problem reported (Some difficulty with speech for the last month) Respiratory: No problem reported Cardiovascular: No problem reported Abdomen: No problem reported Musculoskeletal: + problem reported (Chronic lower back pain) Psychiatric: + depression symptoms (Worsening lately, denies suicidal or homicidal ideations.) Skin: No rash All Other Systems: Reviewed and Negative Physical Exam General Appearance: WD/WN, + obese (Morbidly obese) Eyes: normal inspection, sclerae normal ENT: hearing grossly normal, pharynx normal Neck: trachea midline Respiratory/Chest: lungs clear, normal breath sounds, no respiratory distress, no accessory muscle use Cardiovascular: regular rate, rhythm, no edema, no gallop, no murmur Abdomen: normal bowel sounds, non tender, soft, + pertinent finding (Very large pannus, no intertrigo) Extremities: non-tender, no calf tenderness, + swelling (Trace pitting edema left greater than right) Neurologic/Psychiatric: alert, normal mood/affect, oriented x 3, + pertinent finding (5 out of 5 strength throughout upper and lower extremities with the exception of 4-5 strength in the left hip flexors; sensation intact to light touch throughout lower extremities, unable to elicit DTRs in lower extremities) Skin: normal color, warm/dry, no rash Hospital Course Patient is a 56 y/o female, with PMHx of recent presumed CVA treated w/ tPA, asthma, chronic lower back pain with spinal stenosis, depression w/ anxiety, bilateral lower extremity edema, gout, CKD stage III, HTN, HLD, peripheral neuropathy, vitamins B12 and d deficiency, and GERD, who presented to the ED because of worsening left lower extremity weakness Acute on chronic left lower extremity weakness-similar presentation to 3 weeks ago when she received TPA for presumed CVA although at that time had a left facial droop. Requested all records from [facility] but did not arrive prior to discharge. Left lower extremity weakness had improved at rehab but not completely, and then she fell again last week re-exacerbating the weakness. Suspect either due to spinal stenosis with radiculopathy or exacerbation of symptoms from pseudo- flare of her previous presumed stroke. She was not able to have brain MRI at that time due to claustrophobia so stroke was never ruled in. Seen by neurology here who did recommend repeat brain MRI and lumbar spine MRI for further clarification, however patient just absolutely cannot tolerate getting an MRI due to claustrophobia. 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 Creatinine here is 1.67 -: Follow PRP periodically -Avoid nephrotoxins -Renally dose medications HTN: Stable -Continue amiloride and Bisoprolol-of note, the patient's daughter was to bring these in from home and she did not receive them today 07/24 Peripheral neuropathy: Stable but likely contributing to falls, B12 level normal as above - Continue b12 supplement and Gabapentin, Cymbalta, nortriptyline -TSH WNL Vitamin D deficiency: Vitamin D level 29 here - Continue Vitamin D supplement Chronic lower extremity edema, L>R (normal): Continue Bumex, amiloride Asthma- STABLE: -Continue home inhalers Advair and albuterol as needed Depression w/ anxiety: States has had worsening depressive symptoms. No SI or HI at this time -Continue home doses of Wellbutrin, Buspirone, Cymbalta, Seroquel, Trazodone, Nortriptyline Chronic back pain: No acute issues -Continue Robaxin and Yantic PRN Gout: No acute issues -Continue Allopurinol Morbid obesity- noted -Could benefit from intensive weight loss program and/or referral for bariatric surgery Suspected gastroparesis? -Continue Reglan 4 times daily GERD: No acute issues -Tums + Pepcid DVT prophylaxis: TEDs/SCDs, ambulation Dispo: From home, lives w/ daughter and parents- PT/OT and CM consulted-plan for transfer to acute inpatient rehab today Total Time Spent: Greater than 30 minutes This includes examination of the patient, discharge planning, medication reconciliation, and communication with other providers. Discharge Instructions Please refer to the electronic Patient Visit Report (Discharge Instructions) for additional information. Follow-Up With PCP within 1-2 weeks after discharge from rehab With neurology within 1 month-Dr. Eliane Magana at [facility] Additional Copies To Eliane Magana D.O.; Etelvina Cazares,
[2017-07-24 17:56] VITALS: BP 139/54; PULSE 73; TEMP 36.8; O2SAT 90
[2017-07-25] MEDS ORDERED: ATORVASTATIN 40 MG TAB PO SCH (08:00)
== END 2017-07-24 19:07 | DRG 556 ==
LOC: C.EDB 11:33 → C.4E 17:49 → ENRESERV 18:23 → OBSVTOIN 07-24 10:12
PROVIDERS: ADMIT Internal Medicine; ATTEND Family Medicine
DX: R29.898 Other symptoms and signs involving the musculoskeletal system (principal); Z68.43 Body mass index [BMI] 50.0-59.9, adult; I69.344 Monoplegia of lower limb following cerebral infarction affecting left non-dominant side; M54.16 Radiculopathy, lumbar region; M48.061 Spinal stenosis, lumbar region without neurogenic claudication; R60.0 Localized edema; F40.240 Claustrophobia; H53.2 Diplopia; R20.0 Anesthesia of skin; R40.2413 Glasgow coma scale score 13-15, at hospital admission; J45.909 Unspecified asthma, uncomplicated; F41.8 Other specified anxiety disorders; M10.9 Gout, unspecified; G62.9 Polyneuropathy, unspecified; K31.84 Gastroparesis; N18.3 Chronic kidney disease, stage 3 (moderate); I12.9 Hypertensive chronic kidney disease with stage 1 through stage 4 chronic kidney disease, or unspecified chronic kidney disease; K21.9 Gastro-esophageal reflux disease without esophagitis; E55.9 Vitamin D deficiency, unspecified; E53.8 Deficiency of other specified B group vitamins; E66.01 Morbid (severe) obesity due to excess calories; Z79.899 Other long term (current) drug therapy; Z79.82 Long term (current) use of aspirin; Z79.02 Long term (current) use of antithrombotics/antiplatelets; Z91.81 History of falling; Z88.8 Allergy status to other drugs, medicaments and biological substances; Z88.5 Allergy status to narcotic agent; Z88.0 Allergy status to penicillin

== ENCOUNTER 2017-10-01 16:10 | Inpatient (IN) | payer OTHER ==
[~2017-10-01] VITALS: Ht 167.6 cm; Wt 199.2 kg
[2017-10-01] VITALS (7 sets, daily range): BP systolic 90–104; BP diastolic 52–85; PULSE 94–114; TEMP 38.8–38.9; O2SAT 94–99; Ht 167.6 cm; Wt 199.2 kg
[~2017-10-01 16:10] MED LIST changes: -ATOR-24 PO; -BISO5TAB3 PO; -BUPR300T43 PO; -BUSP15TA70 PO; -CEFT1INJ6 IV; -FLUT0.15 NAE; -FLUTICASONE PROP INH; -LVNIS40 SQ; -METH-445 PO; +METH500T37 PO; -PANT40TA PO; -SENN-61 PO; -TRAZ1TAB52 PO; -VNTHFA/IN INH
[2017-10-01] MEDS ORDERED: ACETAMINOPHEN IV 1,000 MG in EMPTY BAG 0 ML IV STA (16:16)
--- NOTE | 2017-10-01 16:19 | EMERGENCY ROOM VISIT NOTE ---
History Report prepared by Diane: Rory Child Under the Supervision of: Dr. Tobi Iglesias M.D. First contact with patient: 16:11 Stated Complaint: SOB History of Present Illness The patient is a 57 year old female who presents to the Emergency Room with complaints of persistent shortness of breath that began prior to arrival. The HPI is limited secondary to the patient's respiratory distress. 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 Past Medical & Surgical Medical Problems: (1) Left leg weakness (2) Respiratory distress (3) TIA (transient ischemic attack) Family History Cancer Diabetes mellitus FH: gallbladder disease FH: lung disease Heart disease Hypertension Kidney disease Kidney stones Social History Smoking Status: Never Smoker Alcohol Use: none Drug Use: none Marital Status: single Housing Status: lives with family Occupation Status: unemployed Current/Historical Medications Scheduled Allopurinol (Allopurinol), 100 MG PO BID Amiloride Hcl (Amiloride Hcl), 5 MG PO QAM Aspirin (Aspirin Ec), 81 MG PO QAM Atorvastatin (Lipitor), 40 MG PO DAILY Bisoprolol Fumarate (Zebeta), 5 MG PO QAM Bumetanide (Bumex), 2 MG PO QAM Bupropion Hcl (Bupropion Hcl Xl), 300 MG PO DAILY Buspirone Hcl (Buspar), 15 MG PO TID Cholecalciferol (Vitamin D3), 2,000 INTER.UNIT PO DAILY Clopidogrel Bisulfate (Plavix), 75 MG PO QAM Cyanocobalamin (Vitamin B-12), 1,000 MCG PO QAM Duloxetine Hcl (Cymbalta), 120 MG PO DAILY Famotidine (Pepcid), 20 MG PO QAM Fluticasone Prop/Salmeterol (Advair Diskus 250/50 60 Dose), 1 PUFF INH BID Fluticasone Propionate (Nasal) (Flonase Allergy Relief), 2 SPRAYS RAQUEL DAILY Gabapentin (Neurontin), 900 MG PO HS Metoclopramide Hcl (Metoclopramide Hcl), 5 MG PO QID Montelukast Sodium (Montelukast Sodium), 10 MG PO DAILY Multivitamin (Multivitamin), 1 TAB PO DAILY Nortriptyline (Pamelor), 150 MG PO HS Pantoprazole (Protonix), 40 MG PO DAILY Quetiapine Fumarate (Seroquel), 400 MG PO HS Trazodone Hcl (Desyrel), 150 MG PO HS Scheduled PRN Albuterol Hfa (Ventolin Hfa), 2 PUFFS INH Q4H PRN for SOB/Wheezing Calcium Carbonate (Antacid) (Antacid), 500 MG PO UD PRN for Indigestion Hydrocodone/Acetaminophen 10MG/325MG ([place] 10MG/325MG), 1 TAB PO Q8H PRN for Pain Methocarbamol (Robaxin), 500 MG PO TID PRN for Muscle Relaxer Allergies Coded Allergies: Corticosteroids (Unverified Allergy, Intermediate, RASH, 07/23/17) Morphine (Unverified Allergy, Intermediate, MOUTH SWELLS/FACE SWELLS, ) Penicillins (Unverified Allergy, Intermediate, RASH/HIVES, 07/23/17) Prednisone (Unverified Allergy, Intermediate, RED RASH, 07/23/17) Pregabalin (Unverified Allergy, Intermediate, GOOFY, 07/23/17) Zolpidem (Unverified Allergy, Intermediate, UNSURE, 07/23/17) Physical Exam Vital Signs Date Time Temp Pulse Resp B/P (MAP) Pulse Ox O2 Delivery O2 Flow Rate FiO2 10/01/17 19:36 101 18 95 10/01/17 19:31 111/59 10/01/17 19:06 100 25 95 10/01/17 19:01 107/62 10/01/17 18:47 90 Room Air 10/01/17 18:47 95 Nasal Cannula 3.0 10/01/17 18:40 37.3 102 31 121/91 97 BiPAP 40 10/01/17 18:36 102 29 89 10/01/17 18:31 106/46 10/01/17 18:18 37.3 10/01/17 18:15 101 30 92 10/01/17 18:14 111/50 10/01/17 18:02 /91 10/01/17 17:45 102 28 98 10/01/17 17:40 102 31 97 10/01/17 17:16 121/91 10/01/17 17:10 0 10/01/17 17:00 98 BiPAP 40 10/01/17 16:42 165/79 10/01/17 16:40 111 0 96 10/01/17 16:28 162/68 10/01/17 16:23 115 10/01/17 16:22 39.5 114 26 162/68 97 CPAP 10/01/17 16:15 114 97 40 10/01/17 16:15 114 32 97 BiPAP/CPAP 40 Physical Exam Physical Exam GENERAL: She does appear distressed. ____ EYES: Conjunctivae and EOM are normal. Pupils are equal, round, and reactive to light. Right eye exhibits no discharge. Left eye exhibits no discharge. No scleral icterus. Exophthalmos noted.____ NECK: Normal range of motion. Neck supple. No JVD present. No spinous process tenderness present. No carotid bruit present. No rigidity. No tracheal deviation and normal range of motion present. No Brudzinski's sign and no Kernig 's sign noted. ____ CV: Normal rate, regular rhythm, normal heart sounds and intact distal pulses. Palpable radial pulses bue. Palpable DP pulses bilaterally. ____ PULM/CHEST: Patient in respiratory distress bilateral rhonchi and expiratory wheezes. ABD: The abdomen is soft. Bowel sounds are normal. She has no distension. No mass is present. There is no tenderness. There is no rebound, no guarding, no Sheets's sign and no tenderness at McBurney's point. Rovsig negative MUSC/SKEL: The left lower extremity is erythematous and swollen. NEURO: She is alert. She answers some questions. She has normal strength. GCS eye subscore is 4. GCS verbal subscore is 4. GCS motor subscore is 6. Cerebellar tests wnl. ____ Medical Decision & Procedures ER Provider Diagnostic Interpretation: Radiology results as stated below per my review and radiologist interpretation: CT HEAD WITHOUT CONTRAST (CT) CLINICAL HISTORY: Acute change in mental status COMPARISON STUDY: 07/23/2017 TECHNIQUE: Axial CT of the brain is performed from the vertex to the skull base. IV contrast was not administered for this examination. A dose lowering technique was utilized adhering to the principles of ALARA. CT DOSE: 712.55 mGy.cm FINDINGS: No intra or extra-axial mass lesions are visualized. There is no CT evidence of acute cortical infarction. There is no evidence of midline shift. There is no acute hemorrhage. No calvarial fractures are visualized. There are minimal white matter hypodensities likely on a small vessel basis. There is no evidence of pathologic ventricular dilatation. There is no evidence of acute sinusitis IMPRESSION: No acute intracranial findings Electronically signed by: Parish Ramesh M.D. 10/01/2017 5:13 PM Dictated Date/Time: 10/01/2017 5:[address] ANGIOGRAM OF THE CHEST CLINICAL HISTORY: Shortness of breath. Change in mental status. COMPARISON STUDY: Chest x-ray dated 10/01/2017 TECHNIQUE: Following the IV administration of 97 mL of Optiray-320, CT angiogram of the thorax was performed from the thoracic inlet to the lung bases utilizing the pulmonary embolus protocol. Images are reviewed in the axial, sagittal, and coronal planes. IV contrast was administered without complication. MIP imaging was performed. A dose lowering technique was utilized adhering to the principles of ALARA. CT DOSE: 669.72 mGy.cm FINDINGS: No pathologically enlarged axillary mediastinal or hilar lymph nodes were visualized. The ascending thoracic aorta measures 38 mm in diameter. The heart is mildly enlarged Pulmonary artery evaluation is limited due to respiratory motion artifact and the patient's large body habitus. No central emboli are visualized. If there is a strong clinical concern over the presence of pulmonary emboli, then correlation with serial leg ultrasonography should be considered in follow-up No pleural effusions are visualized. There is significant respiratory motion artifact. There are dependent airspace opacities, likely atelectatic. 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 IMPRESSION: 1. Technically limited study secondary to respiratory motion artifact and the patient's large body habitus 2. No central emboli identified 3. Tracheomalacia 4. Dependent airspace opacities likely atelectatic Electronically signed by: Parish Ramesh M.D. 10/01/2017 5:17 PM Dictated Date/Time: 10/01/2017 5:13 PM SINGLE VIEW CHEST CLINICAL HISTORY: Hypoxia. FINDINGS: An AP, portable, upright chest radiograph is obtained. No prior studies are available for comparison at the time of dictation. The examination is degraded by portable technique, large body habitus, and patient rotation. The heart appears enlarged. The pulmonary vasculature is noncongested. There are low lung volumes with bibasilar atelectasis. No airspace consolidation or large pleural effusion is identified. No pneumothorax is seen. The skeletal structures are osteopenic. The bony thorax is grossly intact. IMPRESSION: Mild cardiac enlargement with no acute cardiopulmonary abnormality. Electronically signed by: Will Hussein M.D. 10/01/2017 4:37 PM Dictated Date/Time: 10/01/2017 4:36 PM Laboratory Results 10/01/17 16:28 Red Blood Count 4.37, Mean Corpuscular Volume 83.3, Mean Corpuscular Hemoglobin 27.5, Mean Corpuscular Hemoglobin Concent 33.0, Mean Platelet Volume 9.2, Neutrophils (%) (Auto) 92.5, Lymphocytes (%) (Auto) 3.3, Monocytes (%) (Auto) 3.3, Eosinophils (%) (Auto) 0.3, Basophils (%) (Auto) 0.0, Neutrophils # (Auto) 11.49, Lymphocytes # (Auto) 0.41, Monocytes # (Auto) 0.41, Eosinophils # (Auto) 0.04, Basophils # (Auto) 0.00 10/01/17 16:28 Test 10/01/17 16:16 10/01/17 16:26 10/01/17 16:28 10/01/17 16:30 Bedside Blood Gas pH (LAB) 7.45 (7.35-7.45) Bedside Blood Gas pCO2 (LAB) 38 mmHg (35-46) Bedside Blood Gas pO2 (LAB) 53 mmHg (80-95) Bedside Blood Gas HCO3 (LAB) 26 meq/L (19-24) Bedside Blood Gas Total CO2 27 mEq/l (24-31) Bedside Blood Gas Base Excess (LAB) 2.0 meq/L (-9-1.8) Bedside Blood Gas O2 Saturation 89.0 % (90-95) White Blood Count 12.42 K/uL (4.8-10.8) Red Blood Count 4.37 M/uL (4.2-5.4) Hemoglobin 12.0 g/dL (12.0-16.0) Hematocrit 36.4 % (37-47) Mean Corpuscular Volume 83.3 fL (80-100) Mean Corpuscular Hemoglobin 27.5 pg (25-34) Mean Corpuscular Hemoglobin Concent 33.0 g/dl (32-36) Platelet Count 186 K/uL (130-400) Mean Platelet Volume 9.2 fL (7.4-10.4) Neutrophils (%) (Auto) 92.5 % Lymphocytes (%) (Auto) 3.3 % Monocytes (%) (Auto) 3.3 % Eosinophils (%) (Auto) 0.3 % Basophils (%) (Auto) 0.0 % Neutrophils # (Auto) 11.49 K/uL (1.4-6.5) Lymphocytes # (Auto) 0.41 K/uL (1.2-3.4) Monocytes # (Auto) 0.41 K/uL (0.11-0.59) Eosinophils # (Auto) 0.04 K/uL (0-0.5) Basophils # (Auto) 0.00 K/uL (0-0.2) Bedside Hemoglobin 11.9 g/dl (12.0-16.0) Bedside Hematocrit 35 % (37-47) RDW Standard Deviation 47.7 fL (36.4-46.3) RDW Coefficient of Variation 15.6 % (11.5-14.5) Immature Granulocyte % (Auto) 0.6 % Immature Granulocyte # (Auto) 0.07 K/uL (0.00-0.02) Prothrombin Time 11.1 SECONDS (9.0-12.0) Prothromb Time International Ratio 1.1 (0.9-1.1) Activated Partial Thromboplast Time 24.6 SECONDS (21.0-31.0) Partial Thromboplastin Ratio 0.9 Bedside Sodium 141 mEq/L (135-144) Bedside Potassium 3.5 mEq/L (3.3-5.0) Bedside Chloride 100 mEq/L (101-112) Bedside Total CO2 25 mEq/l (24-31) Anion Gap 21.0 mmol/L (16-25) Bedside Blood Urea Nitrogen 15 mg/dl (7-18) Bedside Creatinine 1.5 mg/dl (0.6-1.3) Est Creatinine Clear Calc Drug Dose 73.1 ml/min Estimated GFR () 41.0 Estimated GFR (Non- 35.4 BUN/Creatinine Ratio 9.5 (10-20) Bedside Glucose (other) 132 mg/dl (70-99) Calcium Level 8.7 mg/dl (8.5-10.1) Bedside Ionized Calcium (Ksenia) 1.10 mmol/l (1.12-1.32) Troponin I < 0.015 ng/ml (0-0.045) Pro-B-Type Natriuretic Peptide 576 pg/ml (0-900) Thyroid Stimulating Hormone (TSH) 1.380 uIu/ml (0.300-4.500) Lactic Acid Level 3.5 mmol/L (0.4-2.0) Test 10/01/17 16:52 10/01/17 17:35 10/01/17 18:00 10/01/17 18:58 Bedside Troponin I < 0.030 ng/ml (0-0.045) Influenza Type A Antigen Neg for Influ A (NEG) Influenza Type B Antigen Neg for Influ B (NEG) Urine Opiates Screen POS (NEG) Urine Methadone, Qualitative NEG (NEG) Urine Barbiturates NEG (NEG) Urine Phencyclidine (PCP) Level NEG (NEG) Ur Amphetamine/Methamphetamine NEG (NEG) MDMA (Ecstasy) Screen POS (NEG) Urine Benzodiazepines Screen NEG (NEG) Urine Cocaine Metabolite NEG (NEG) Urine Marijuana (THC) NEG (NEG) Laboratory results reviewed by me Medications Administered Medications (Trade) Dose Ordered Sig/Nader Route Start Time Stop Time Status Last Admin Dose Admin Acetaminophen 1000 mg/Empty Bag 100 ml @ 400 mls/hr NOW STAT IV 10/01/17 16:16 10/01/17 16:30 DC 10/01/17 16:40 400 MLS/HR Vancomycin HCl (Vancomycin 1gm Ed/Asu Omnicell) 1 gm NOW STAT IV 10/01/17 17:23 10/01/17 17:25 DC 10/01/17 18:22 1 GM Piperacillin Sod/ Tazobactam Sod (Zosyn Iv) 4.5 gm NOW STAT IV 10/01/17 17:23 10/01/17 17:25 DC 10/01/17 18:23 4.5 GM Sodium Chloride 500 ml @ 999 mls/hr Q31M STAT IV 10/01/17 17:23 10/01/17 17:53 DC 10/01/17 17:23 999 MLS/HR Thiamine HCl 200 mg/Sodium Chloride 52 ml @ 208 mls/hr NOW STAT IV 10/01/17 18:02 10/01/17 18:16 DC 10/01/17 18:23 208 MLS/HR ECG Per My Interpretation Indication: SOB/dyspnea Rate (beats per minute): 112 Rhythm: sinus tachycardia Findings: other (MI QRS QTC WNL. No ST elevation or depression. ) Change: FIRST EK. 1731: SECOND EKG: Sinus tachycardia with a rate of 103. MI is 208, QRS is 108. QTC is 453. No ST elevation or depression. ED Course 1540: Call from EMS from the field for respiratory distress. The patient was having severe respiratory distress and put on CPAP. Initially was going to be given DuoNeb, however the patient stopped wheezing. EMS reports that the patient appears to be in CHF exacerbation as she has peripheral edema and her blood pressure is elevated in the systolics 180s. One sublingual nitroglycerin was given. EMS reports that they feel like the patient is fatiguing and will need to be intubated. EMS was given authorization to use fentanyl and Versed as needed for post sedation per protocol. 1607: The patient was evaluated in room B01. A complete history and physical exam was performed. Patient was immediately started on BiPAP 12/. On lung auscultation she is wheezing bilaterally. DuoNeb also given. Patient's blood pressure stable, no nitroglycerin started at this time. Patient febrile. Ordered Acetaminophen 1000 mg/Empty Bag 100 ml @ 400 mls/hr IV. 1639: I reevaluated the patient and she is breathing more comfortably on BiPAP. She is answering more questions and following commands. Bedside VBG did not show any significant acidosis or hypercapnia. Cardiomegaly and Cephalization was noted by me on portable chest x-ray. Bedside Creatinine is 1.5. Given large swollen and erythematous left lower extremity, we are concerned for DVT. Given respiratory distress we are concerned for PE. We will proceed with a CT angio. 1648: I reevaluated the patient and her family is at bedside. They report she all of a sudden became ill. They state she developed chills this morning and started to become short of breath. The patient does not have a history of CHF, Diabetes, or thyroid disease. She does have a history of spinal stenosis and has been having trouble walking around due to the pain. She recently had a brain MRI. 1723: Labs show leukocytosis of 12.42, lactic acid of 3.5. Troponin and proBNP within normal limits. TSH within normal limits. Given the elevated lactic acid and proBNP within normal limits, ordered Sodium Chloride 500 ml @ 999 mls/ hr IV IV, Zosyn 4.5 gm IV, Vancomycin HCl 1 gm IV. I discussed the patient's case with Dr. Dickerson, [facility] Hospitalist. She understands the patient's condition and agrees to accept the patient. The patient will be further evaluated. I discussed the patient's case with Dr. Gross, [facility] Arboreal Scientist. He understands the patient's condition and agrees to accept the patient. The patient will be further evaluated. Medical Decision 1540: Call from EMS from the field for respiratory distress. The patient was having severe respiratory distress and put on CPAP. Initially was going to be given DuoNeb, however the patient stopped wheezing. EMS reports that the patient appears to be in CHF exacerbation as she has peripheral edema and her blood pressure is elevated in the systolics 180s. One sublingual nitroglycerin was given. EMS reports that they feel like the patient is fatiguing and will need to be intubated. EMS was given authorization to use fentanyl and Versed as needed for post sedation per protocol. 1607: The patient was evaluated in room B01. A complete history and physical exam was performed. Patient was immediately started on BiPAP 12/5. On lung auscultation she is wheezing bilaterally. DuoNeb also given. Patient's blood pressure stable, no nitroglycerin started at this time. Patient febrile. Ordered Acetaminophen 1000 mg/Empty Bag 100 ml @ 400 mls/hr IV. 1639: I reevaluated the patient and she is breathing more comfortably on BiPAP. She is answering more questions and following commands. Bedside VBG did not show any significant acidosis or hypercapnia. Cardiomegaly and Cephalization was noted by me on portable chest x-ray. Bedside Creatinine is 1.5. Given large swollen and erythematous left lower extremity, we are concerned for DVT. Given respiratory distress we are concerned for PE. We will proceed with a CT angio. 1648: I reevaluated the patient and her family is at bedside. They report she all of a sudden became ill. They state she developed chills this morning and started to become short of breath. The patient does not have a history of CHF, Diabetes, or thyroid disease. She does have a history of spinal stenosis and has been having trouble walking around due to the pain. She recently had a brain MRI. 1723: Labs show leukocytosis of 12.42, lactic acid of 3.5. Troponin and proBNP within normal limits. TSH within normal limits. Given the elevated lactic acid and proBNP within normal limits, ordered Sodium Chloride 500 ml @ 999 mls/ hr IV IV, Zosyn 4.5 gm IV, Vancomycin HCl 1 gm IV. I discussed the patient's case with Dr. Dickerson [facility] Hospitalist. She understands the patient's condition and agrees to accept the patient. The patient will be further evaluated. I discussed the patient's case with Dr. Gross [facility] Arboreal Scientist. He understands the patient's condition and agrees to accept the patient. The patient will be further evaluated. Medication Reconcilliation Current Medication List: was personally reviewed by me Blood Pressure Screening Patient's blood pressure: Normal blood pressure Consults Time Called: 173 Consulting Physician: Dr. Dickerson [facility] Hospitalist Returned Call: 173 I discussed the patient's case with Dr. Dickerson [facility] Hospitalist. She understands the patient's condition and agrees to accept the patient. The patient will be further evaluated. Additional Consults: Time Called: 1830 Consulted Physician: Dr. Gross [facility] Arboreal Scientist Returned Call: 1830 Additional Comments: I discussed the patient's case with Dr. Gross [facility] Arboreal Scientist. He understands the patient's condition and agrees to accept the patient. The patient will be further evaluated. Impression Primary Impression: Respiratory distress Critical Care I have personally spent greater than 90 minutes of critical care time in the direct management of this patient. This includes bedside care, interpretation of diagnostic studies, and testing, discussion with consultants, patient, and family members, and other required patient management activities. This 90 minutes is in excess of all separately billable procedures. Scribe Attestation The scribe's documentation has been prepared under my direction and personally reviewed by me in its entirety. I confirm that the note above accurately reflects all work, treatment, procedures, and medical decision making performed by me. The chart was completed utilizing [employer] Speech voice recognition software. Grammatical errors, random word insertions, pronoun errors, and incomplete sentences are an occasional consequence of this system due to software limitations, ambient noise, and hardware issues. Any formal questions or concerns about the content, text, or information contained within the body of this dictation should be directly addressed to the physician for clarification. Departure Information Dispostion Being Evaluated By Hospitalist
[2017-10-01] MEDS ORDERED: OPTIRAY 320 IV PRN (16:30)
[2017-10-01] MEDS ORDERED: ACETAMINOPHEN 1000 MG/100 ML IV IV ONE (16:38)
--- NOTE | 2017-10-01 16:38 | DIAGNOSTIC IMAGING REPORT ---
SINGLE VIEW CHEST CLINICAL HISTORY: Hypoxia. FINDINGS: An AP, portable, upright chest radiograph is obtained. No prior studies are available for comparison at the time of dictation. The examination is degraded by portable technique, large body habitus, and patient rotation. The heart appears enlarged. The pulmonary vasculature is noncongested. There are low lung volumes with bibasilar atelectasis. No airspace consolidation or large pleural effusion is identified. No pneumothorax is seen. The skeletal structures are osteopenic. The bony thorax is grossly intact. IMPRESSION: Mild cardiac enlargement with no acute cardiopulmonary abnormality. Electronically signed by: Will Hussein M.D. 10/01/2017 4:37 PM Dictated Date/Time: 10/01/2017 4:36 PM
[2017-10-01 16:39] LABS: ISTAT POTASSIUM 3.5 mEq/L (3.3-5.0); ISTAT SODIUM 142 mEq/L (135-144)
[2017-10-01 16:43] LABS: ISTAT CREATININE 1.5 mg/dl (0.6-1.3); ISTAT IONIZED CALCIUM 1.1 mmol/l (1.12-1.32); ISTAT POTASSIUM 3.5 mEq/L (3.3-5.0)
[2017-10-01 16:50] LABS: EOS % 0.3 %; EOS ABS # 0.04 K/uL (0-0.5); HEMATOCRIT 36.4 % (37-47); IG# 0.07 K/uL (0.00-0.02); LYMPH % 3.3 %; LYMPH ABS # 0.41 K/uL (1.2-3.4); MEAN CELL VOLUME 83.3 fL (80-100); MEAN CORPUSCULAR HEMOGLOBIN 27.5 pg (25-34); MEAN PLATELET VOLUME 9.2 fL (7.4-10.4); MONO % 3.3 %; MONO ABS # 0.41 K/uL (0.11-0.59); NEUT % 92.5 %; NEUT ABS # 11.49 K/uL (1.4-6.5); PLATELET COUNT 186 K/uL (130-400); RED CELL DISTRIBUTION WIDTH CV 15.6 % (11.5-14.5); RED CELL DISTRIBUTION WIDTH SD 47.7 fL (36.4-46.3); WHITE BLOOD COUNT 12.42 K/uL (4.8-10.8)
--- NOTE | 2017-10-01 17:14 | DIAGNOSTIC IMAGING REPORT ---
CT HEAD WITHOUT CONTRAST (CT) CLINICAL HISTORY: Acute change in mental status COMPARISON STUDY: 07/23/2017 TECHNIQUE: Axial CT of the brain is performed from the vertex to the skull base. IV contrast was not administered for this examination. A dose lowering technique was utilized adhering to the principles of ALARA. CT DOSE: 712.55 mGy.cm FINDINGS: No intra or extra-axial mass lesions are visualized. There is no CT evidence of acute cortical infarction. There is no evidence of midline shift. There is no acute hemorrhage. No calvarial fractures are visualized. There are minimal white matter hypodensities likely on a small vessel basis. There is no evidence of pathologic ventricular dilatation. There is no evidence of acute sinusitis IMPRESSION: No acute intracranial findings Electronically signed by: Parish Ramesh M.D. 10/01/2017 5:13 PM Dictated Date/Time: 10/01/2017 5:12 PM
[2017-10-01 17:17] LABS: BLOOD UREA NITROGEN 15 mg/dl (7-18); CALCIUM 8.7 mg/dl (8.5-10.1); CARBON DIOXIDE 28 mmol/L (21-32); CREATININE 1.62 mg/dl (0.60-1.20); GLUCOSE 125 mg/dl (70-99); POTASSIUM 3.5 mmol/L (3.5-5.1); SODIUM 140 mmol/L (136-145)
--- NOTE | 2017-10-01 17:18 | DIAGNOSTIC IMAGING REPORT ---
CT ANGIOGRAM OF THE CHEST CLINICAL HISTORY: Shortness of breath. Change in mental status. COMPARISON STUDY: Chest x-ray dated 10/01/2017 TECHNIQUE: Following the IV administration of 97 mL of Optiray-320, CT angiogram of the thorax was performed from the thoracic inlet to the lung bases utilizing the pulmonary embolus protocol. Images are reviewed in the axial, sagittal, and coronal planes. IV contrast was administered without complication. MIP imaging was performed. A dose lowering technique was utilized adhering to the principles of ALARA. CT DOSE: 669.72 mGy.cm FINDINGS: No pathologically enlarged axillary mediastinal or hilar lymph nodes were visualized. The ascending thoracic aorta measures 38 mm in diameter. The heart is mildly enlarged Pulmonary artery evaluation is limited due to respiratory motion artifact and the patient's large body habitus. No central emboli are visualized. If there is a strong clinical concern over the presence of pulmonary emboli, then correlation with serial leg ultrasonography should be considered in follow-up No pleural effusions are visualized. There is significant respiratory motion artifact. There are dependent airspace opacities, likely atelectatic. 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 IMPRESSION: 1. Technically limited study secondary to respiratory motion artifact and the patient's large body habitus 2. No central emboli identified 3. Tracheomalacia 4. Dependent airspace opacities likely atelectatic Electronically signed by: Parish Ramesh M.D. 10/01/2017 5:17 PM Dictated Date/Time: 10/01/2017 5:13 PM
[2017-10-01 17:21] LABS: INR 1.1 (0.9-1.1); PTT PATIENT 24.6 SECONDS (21.0-31.0)
[2017-10-01] MEDS ORDERED: VANCOMYCIN 1GM ED/ASU OMNICELL IV STA (17:23)
[2017-10-01] MEDS ORDERED: SODIUM CHLORIDE 0.9% 500ML 500 ML IV STA (17:23)
[2017-10-01] MEDS ORDERED: PIPERACILLIN/TAZOBACTAM 4.5 GM/100ML D5W IV STA (17:23)
[2017-10-01] MEDS ORDERED: THIAMINE HCL INJ 200 MG in SODIUM CHLORIDE 0.9% 50ML 50 ML IV STA (18:02)
[2017-10-01] MEDS ORDERED: BUPR300T43 PO (18:12)
[2017-10-01] MEDS ORDERED: TRAZ1TAB52 PO (18:12)
[2017-10-01] MEDS ORDERED: PANT40TA PO (18:12)
[2017-10-01] MEDS ORDERED: VNTHFA/IN INH (18:12)
[2017-10-01] MEDS ORDERED: FLUT0.15 NAE (18:12)
[2017-10-01] MEDS ORDERED: FAMO20TA11 PO (18:12)
[2017-10-01] MEDS ORDERED: BISO5TAB3 PO (18:12)
[2017-10-01] MEDS ORDERED: BUSP15TA70 PO (18:12)
[2017-10-01] MEDS ORDERED: ATOR-24 PO (18:12)
[2017-10-01] MEDS ORDERED: SODIUM CHLORIDE 0.9% 1000ML 1,000 ML IV SCH ×3 (18:16→20:15)
[2017-10-01 18:17] LABS: INFLUENZA B ANTIGEN Neg for Influ B (NEG)
--- NOTE | 2017-10-01 18:21 | Critical Care Consultation ---
Critical Care Consultation Date of Consultation: October 01, 2017. Attending Physician: Dr. Gross Reason for Consultation: Acute hypoxic respiratory failure, possible sepsis History of Present Illness 57 yo obese female comes to the ICU with sepsis secondary to possible pulmonary vs skin source. The patient recounts that she was SOB throughout the day and collapsed at home. In the ED, the patient was found to have a fever of 39.5, HR >100, RR>30 and lactic acid of 3.5. She was started on broad spectrum antibiotics and fluid bolus. Past Medical/Surgical History Asthma, former smoker, HTN, HLD, morbid obesity, ANDRZEJ on CPAP at night, CKD III, gout, Depression/Anxiety Family History No pertinent family history Social History Smoking Status: Former Smoker Allergies Coded Allergies: Corticosteroids (Unverified Allergy, Intermediate, RASH, 07/23/17) Morphine (Unverified Allergy, Intermediate, MOUTH SWELLS/FACE SWELLS, ) [place]ay (Verified Allergy, Intermediate, HIVES, 10/02/17) Penicillins (Unverified Allergy, Intermediate, RASH/HIVES, 07/23/17) Prednisone (Unverified Allergy, Intermediate, RED RASH, 07/23/17) Pregabalin (Unverified Allergy, Intermediate, GOOFY, 07/23/17) Zolpidem (Unverified Allergy, Intermediate, UNSURE, 07/23/17) Home Medications Scheduled Allopurinol (Allopurinol), 100 MG PO BID Amiloride Hcl (Amiloride Hcl), 5 MG PO QAM Aspirin (Aspirin Ec), 81 MG PO QAM Atorvastatin (Lipitor), 40 MG PO DAILY Bisoprolol Fumarate (Zebeta), 5 MG PO QAM Bumetanide (Bumex), 2 MG PO QAM Bupropion Hcl (Bupropion Hcl Xl), 300 MG PO DAILY Buspirone Hcl (Buspar), 15 MG PO TID Cholecalciferol (Vitamin D3), 2,000 INTER.UNIT PO DAILY Clopidogrel Bisulfate (Plavix), 75 MG PO QAM Cyanocobalamin (Vitamin B-12), 1,000 MCG PO QAM Duloxetine Hcl (Cymbalta), 120 MG PO DAILY Famotidine (Pepcid), 20 MG PO QAM Fluticasone Prop/Salmeterol (Advair Diskus 250/50 60 Dose), 1 PUFF INH BID Fluticasone Propionate (Nasal) (Flonase Allergy Relief), 2 SPRAYS RAQUEL DAILY Gabapentin (Neurontin), 900 MG PO HS Metoclopramide Hcl (Metoclopramide Hcl), 5 MG PO QID Montelukast Sodium (Montelukast Sodium), 10 MG PO DAILY Multivitamin (Multivitamin), 1 TAB PO DAILY Nortriptyline (Pamelor), 150 MG PO HS Pantoprazole (Protonix), 40 MG PO DAILY Quetiapine Fumarate (Seroquel), 400 MG PO HS Trazodone Hcl (Desyrel), 150 MG PO HS Scheduled PRN Albuterol Hfa (Ventolin Hfa), 2 PUFFS INH Q4H PRN for SOB/Wheezing Calcium Carbonate (Antacid) (Antacid), 500 MG PO UD PRN for Indigestion Hydrocodone/Acetaminophen 10MG/325MG ([place] 10MG/325MG), 1 TAB PO Q8H PRN for Pain Methocarbamol (Robaxin), 500 MG PO TID PRN for Muscle Relaxer Current Inpatient Medications Current Inpatient Medications Medications (Trade) Dose Ordered Sig/Nader Route Start Time Stop Time Status Last Admin Dose Admin Ioversol (Optiray 320) 100 ml UD PRN IV 10/01/17 16:30 10/05/17 16:29 Sodium Chloride 500 ml @ 999 mls/hr Q31M STAT IV 10/01/17 17:23 10/01/17 17:53 Physical Exam Date Time Temp Pulse Resp B/P (MAP) Pulse Ox O2 Delivery O2 Flow Rate FiO2 10/01/17 17:40 102 31 97 10/01/17 17:16 121/91 10/01/17 17:10 0 10/01/17 16:42 165/79 10/01/17 16:40 111 0 96 10/01/17 16:28 162/68 10/01/17 16:23 115 10/01/17 16:22 39.5 114 26 162/68 97 CPAP 10/01/17 16:15 114 97 40 10/01/17 16:15 114 32 97 BiPAP/CPAP 40 General Appearance: uncomfortable, mild distress, obese Eyes: no discharge, EOMI, conjunctivae normal, other (bilateral nystagmus ) Neck: normal range of motion, no tenderness, trachea midline, supple Respiratory: breath sounds normal, clear to auscultation, no respiratory distress Cardiovasular: regular rate/rhythm, normal S1S2, no M/G/R, no murmur Abdomen: non tender, no masses, no guarding, no organomegaly, other (distended ) Back: normal inspection Lower Extremities: edema, other (left LE erythema and edema consistent with cellulitis ) Neuro: alert, oriented x 3 Psychiatric: anxious Laboratory Results Last 24 Hours Test 10/01/17 16:16 10/01/17 16:26 10/01/17 16:28 10/01/17 16:30 Bedside Hemoglobin 11.9 g/dl 11.9 g/dl Bedside Hematocrit 35 % 35 % Bedside Blood Gas pH (LAB) 7.45 Bedside Blood Gas pCO2 (LAB) 38 mmHg Bedside Blood Gas pO2 (LAB) 53 mmHg Bedside Blood Gas HCO3 (LAB) 26 meq/L Bedside Blood Gas Total CO2 27 mEq/l Bedside Blood Gas Base Excess (LAB) 2.0 meq/L Bedside Blood Gas O2 Saturation 89.0 % Bedside Sodium 142 mEq/L 141 mEq/L Bedside Potassium 3.5 mEq/L 3.5 mEq/L White Blood Count 12.42 K/uL Red Blood Count 4.37 M/uL Hemoglobin 12.0 g/dL Hematocrit 36.4 % Mean Corpuscular Volume 83.3 fL Mean Corpuscular Hemoglobin 27.5 pg Mean Corpuscular Hemoglobin Concent 33.0 g/dl Platelet Count 186 K/uL Mean Platelet Volume 9.2 fL Neutrophils (%) (Auto) 92.5 % Lymphocytes (%) (Auto) 3.3 % Monocytes (%) (Auto) 3.3 % Eosinophils (%) (Auto) 0.3 % Basophils (%) (Auto) 0.0 % Neutrophils # (Auto) 11.49 K/uL Lymphocytes # (Auto) 0.41 K/uL Monocytes # (Auto) 0.41 K/uL Eosinophils # (Auto) 0.04 K/uL Basophils # (Auto) 0.00 K/uL RDW Standard Deviation 47.7 fL RDW Coefficient of Variation 15.6 % Immature Granulocyte % (Auto) 0.6 % Immature Granulocyte # (Auto) 0.07 K/uL Prothrombin Time 11.1 SECONDS Prothromb Time International Ratio 1.1 Activated Partial Thromboplast Time 24.6 SECONDS Partial Thromboplastin Ratio 0.9 Sodium Level 140 mmol/L Potassium Level 3.5 mmol/L Bedside Chloride 100 mEq/L Chloride Level 104 mmol/L Carbon Dioxide Level 28 mmol/L Bedside Total CO2 25 mEq/l Anion Gap 21.0 mmol/L Bedside Blood Urea Nitrogen 15 mg/dl Blood Urea Nitrogen 15 mg/dl Creatinine 1.62 mg/dl Bedside Creatinine 1.5 mg/dl Est Creatinine Clear Calc Drug Dose 73.1 ml/min Estimated GFR () 41.0 Estimated GFR (Non- 35.4 BUN/Creatinine Ratio 9.5 Bedside Glucose (other) 132 mg/dl Random Glucose 125 mg/dl Calcium Level 8.7 mg/dl Bedside Ionized Calcium (Ksenia) 1.10 mmol/l Troponin I < 0.015 ng/ml Pro-B-Type Natriuretic Peptide 576 pg/ml Thyroid Stimulating Hormone (TSH) 1.380 uIu/ml Lactic Acid Level 3.5 mmol/L Test 10/01/17 16:52 10/01/17 17:27 Bedside Troponin I < 0.030 ng/ml Assessment & Plan 57 yo female being admitted to the ICU for sepsis and acute hypoxic respiratory failure--pulmonary vs skin source Neuro -Recent h/o MCA stroke requiring tPA--cont. clopidogrel and ASA -H/o anxiety/depression--on numerous psych medications-- Buspirone, Duloxetine, Seroquel, Nortriptyline, Trazodone -Did not discuss patients regimen--defer to night/weekend team -H/o lumbar radiculopathy and neuropathy--> on gabapentin and hydrocodone -On exam, the patient had a questionable bilateral nystagmus--ordered a UDS -CT head was negative for intracranial pathology Cardio -H/o HTN, HLD, obesity -Cont. amlodipine, bisoprolol, atorvastatin, clopidogrel and ASA -Normal EF on ECHO during recent admission -Will repeat ECHO tomorrow -Carotid dopplers with moderate plaque, no critical stenosis -Cerebral vascular duplex scan--no hemodynamic significant stenosis -Lipids--WNL TC 102, LDL 138, HDL 38 Resp -H/o asthma, ANDRZEJ, former smoker -Acute hypoxic respiratory failure--on BIPAP in the ED -VBG demonstrated a metabolic alkalosis -Seen recently by pulm in the outpatient, PFT pending -CXR-showed cardiomegaly, but no consolidations -Chest CT- negative for PE, demonstrated tracheomalacia and atelectasis GI -h/o appendectomy, hernia repair, cholecystectomy -Ulcer ppx; IV Protonix -Follow LFT's, lipase Renal/lytes -Baseline Cr 1.22 jun 2017 -Cr today--1.62, K-3.5 -MIVF, replete electrolytes Heme -Hgb 12, Hct 36.4 , continue to follow CBC ID -Meets criteria for sepsis--fever 39.5, HR >100, RR >30 -WBC 12.42, lactic acid of 3.5 -Trend lactic acid, procalcitonin -Possible source pulmonary vs skin -Patient has a warm, red left lower extremity consistent with cellulitis -Patient given Vanc/Zosyn in the ED -Blood cultures, UA and urine cultures ordered and pending -Follow fever curve Endo -TSH 1.38 -A1C--5.8, follow blood sugars Lines -PIV intact DVT ppx -Lovenox Code status -Full code Resident Physician Supervision Note: Dr. Maxwell was resident physician during care of patient. I separately evaluated patient and did history and exam. I discussed the case with the resident and generally agree with the findings and plan. Sepsis with presumptive lower extremity source, looked at all skin, no obvious perirectal abscess no other complicated skin and soft tissue infection, no panniculitis I have personally spent 60 minutes of critical care time in the direct management of this patient. This is a life/limb threatening event. This includes time spent evaluating patient, direct bedside care, chart review, placing orders, interpretation of diagnostic studies, discussion with consultants, patient, and/or family members regarding treatment decisions, as well as other required patient management activities. This time is exclusive of all separately billable procedures, and teaching time and separate from and in addition to any other critical care service time. Documented By: Jevon Gross DO
[2017-10-01] MEDS ORDERED: PIPERACILL/TAZOBAC CONSULT ACTIVE PRN (18:30)
[2017-10-01] MEDS ORDERED: ICU PROTOCOL FOR HYPERGLYCEMIA PRN (18:30)
[2017-10-01] MEDS ORDERED: VANCOMYCIN CONSULT ACTIVE PRN (18:30)
--- NOTE | 2017-10-01 19:27 | History and Physical ---
History & Physical Date & Time of Service: October 01, 2017 at 17:40 Chief Complaint: SOB Primary Care Physician: Etelvina Cazares DO History of Present Illness Source: patient, family Patient is a 57yo C female with multiple medical comorbidities presenting to [facility] today with respiratory distress requiring rescue BiPAP. History obtained from nursing staff as well as patient's family secondary to patient somnolence. Per family, patient was in her usual state of health this morning. She had a routine appointment with her PCP - was prescribed antibiotics at that appointment presumably for a LLE cellulitis. After the appointment she was in her home with her family who reported her being very pale and cold with shaking chills. They also state that she became very confused and disoriented. She was walking down the [place] when she became acutely short of breath. 911 was called, patient collapsed prior to ambulance arrival. There was no loss of consciousness. Patient maintained a pulse and spontaneous breathing. EMS administered Nitro and placed her on a CPAP. On arrival to the ER she was found to be tachypnic. She was placed on BiPAP for increased work of breathing , ?hypoxia. ER Course: Vancomycin 1gm, Zosyn 4.45gm, Ofirmev 1gm, Tylenol Past Medical/Surgical History Medical Problems: 1. CVA s/p tPA July 2017 2. Asthma 3. Chronic back pain 4. Depression/anxiety 5. LE edema 6. LLE cellulitis 7. Gout 8. CKD Stage III 9. HTN 10. HLP 11. Peripheral neuropathy 12. Vitamin D deficiency 13. GERD 14. Tracheomalacia 15. Morbid obesity Past Surgical History: Appendectomy Cholecystectomy Hernia Bilateral knee repair Family History No pertinent family history Heart disease in mother and father Social History Social history obtained from family. Denies tobacco/EtOH or drug use. Active and independent in ADLs. Smoking Status: Unknown if Ever Smoked Allergies Coded Allergies: Corticosteroids (Unverified Allergy, Intermediate, RASH, 07/23/17) Morphine (Unverified Allergy, Intermediate, MOUTH SWELLS/FACE SWELLS, ) Penicillins (Unverified Allergy, Intermediate, RASH/HIVES, 07/23/17) Prednisone (Unverified Allergy, Intermediate, RED RASH, 07/23/17) Pregabalin (Unverified Allergy, Intermediate, GOOFY, 07/23/17) Zolpidem (Unverified Allergy, Intermediate, UNSURE, 07/23/17) Home Medications Scheduled Allopurinol (Allopurinol), 1 TAB PO BID Amiloride Hcl (Amiloride Hcl), 1 TAB PO QAM Aspirin (Aspirin Ec), 81 MG PO QAM Atorvastatin (Lipitor), 40 MG PO QAM Bisoprolol Fumarate (Bisoprolol Fumarate), 5 MG PO QAM Bumetanide (Bumex), 2 MG PO QAM Bupropion (Wellbutrin Sr), 150 MG PO UD Buspirone Hcl (Buspirone Hcl), 15 MG PO TID Calcium Carbonate (Antacid) (Antacid), 0 PO UD Cholecalciferol (Vitamin D3), 1 TAB PO TID Clopidogrel Bisulfate (Plavix), 75 MG PO QAM Cyanocobalamin (Vitamin B-12), 1,000 MCG PO QAM Duloxetine Hcl (Cymbalta), 60 MG PO DAILY Famotidine (Pepcid), 20 MG PO QAM Fluticasone Prop/Salmeterol (Advair Diskus 250/50 60 Dose), 1 PUFF INH BID Fluticasone Propionate (Fluticasone Propionate), 2 SPRAYS NA BID Gabapentin (Neurontin), 900 MG PO HS Methocarbamol (Robaxin), 500 MG PO TID Metoclopramide Hcl (Metoclopramide Hcl), 5 MG PO QID Montelukast Sodium (Montelukast Sodium), 1 TAB PO DAILY Multivitamin (Multivitamin), 1 TAB PO DAILY Nortriptyline (Pamelor), 150 MG PO HS Quetiapine Fumarate (Seroquel), 400 MG PO HS Trazodone Hcl (Trazodone), 150 MG PO HS Scheduled PRN Hydrocodone/Acetaminophen 10MG/325MG ([place] 10MG/325MG), 1 TAB PO Q8H PRN for Pain [Ventolin Inhaler], 2 PUFFS INH Q4H PRN for Shortness of Breath Review of Systems Unable to obtain secondary to patient somnolence. Family denies patient complaints to include wheeze/cough/SOB/CP/palpitations/abdominal pain/nausea/ vomiting/diarrhea Physical Exam Vital Signs Date Time Temp Pulse Resp B/P (MAP) Pulse Ox O2 Delivery O2 Flow Rate FiO2 10/01/17 16:23 115 10/01/17 16:22 39.5 114 26 162/68 97 CPAP 10/01/17 16:15 114 97 40 10/01/17 16:15 114 32 97 BiPAP/CPAP 40 General: morbidly obese female resting comfortably in bed, BiPAP mask in place , NAD, somnolent but arousable, answers some questions then drifts to sleep Skin: warm, dry, LLE cellulitis - warm/red/+edema with weeping wound, no bullae , no crepitus, no streaking HEENT: NC/AT, PERRL, anicteric sclera, conjunctiva without injection, neck supple, no JVD, no thyromegaly, trachea midline, dry mucus membranes Heart: +S1/S2, regular, tachycardic, no m/r/g Lungs: poor inspiratory effort, limited exam, equal air entry bilaterally, no rales/rhonchi/wheezes, diminished breath sounds in the bases Abd: obese, soft, NT/ND, no masses/organomegaly Extremities: warm, well perfused, 2+ pulses in UE/LE, LLE edema with cellulitis as above Neuro: unable to assess due to AMS. Patient wakes with verbal stimuli, follows some commands, somnolent and confused, moving all extremities with equal strength Diagnostics Laboratory Results Results Past 24 Hours Test 10/01/17 16:16 10/01/17 16:26 10/01/17 16:28 10/01/17 16:30 Range/Units Bedside Hemoglobin 11.9 11.9 12.0-16.0 g/dl Bedside Hematocrit 35 35 37-47 % Bedside Blood Gas pH (LAB) 7.45 7.35-7.45 Bedside Blood Gas pCO2 (LAB) 38 35-46 mmHg Bedside Blood Gas pO2 (LAB) 53 80-95 mmHg Bedside Blood Gas HCO3 (LAB) 26 19-24 meq/L Bedside Blood Gas Total CO2 27 24-31 mEq/l Bedside Blood Gas Base Excess (LAB) 2.0 -9-1.8 meq/L Bedside Blood Gas O2 Saturation 89.0 90-95 % Bedside Sodium 142 141 135-144 mEq/L Bedside Potassium 3.5 3.5 3.3-5.0 mEq/L White Blood Count 12.42 4.8-10.8 K/uL Red Blood Count 4.37 4.2-5.4 M/uL Hemoglobin 12.0 12.0-16.0 g/dL Hematocrit 36.4 37-47 % Mean Corpuscular Volume 83.3 80-100 fL Mean Corpuscular Hemoglobin 27.5 25-34 pg Mean Corpuscular Hemoglobin Concent 33.0 32-36 g/dl Platelet Count 186 130-400 K/uL Mean Platelet Volume 9.2 7.4-10.4 fL Neutrophils (%) (Auto) 92.5 % Lymphocytes (%) (Auto) 3.3 % Monocytes (%) (Auto) 3.3 % Eosinophils (%) (Auto) 0.3 % Basophils (%) (Auto) 0.0 % Neutrophils # (Auto) 11.49 1.4-6.5 K/uL Lymphocytes # (Auto) 0.41 1.2-3.4 K/uL Monocytes # (Auto) 0.41 0.11-0.59 K/uL Eosinophils # (Auto) 0.04 0-0.5 K/uL Basophils # (Auto) 0.00 0-0.2 K/uL RDW Standard Deviation 47.7 36.4-46.3 fL RDW Coefficient of Variation 15.6 11.5-14.5 % Immature Granulocyte % (Auto) 0.6 % Immature Granulocyte # (Auto) 0.07 0.00-0.02 K/uL Prothrombin Time 11.1 9.0-12.0 SECONDS Prothromb Time International Ratio 1.1 0.9-1.1 Activated Partial Thromboplast Time 24.6 21.0-31.0 SECONDS Partial Thromboplastin Ratio 0.9 Sodium Level 140 136-145 mmol/L Potassium Level 3.5 3.5-5.1 mmol/L Bedside Chloride 100 101-112 mEq/L Chloride Level 104 98-107 mmol/L Carbon Dioxide Level 28 21-32 mmol/L Bedside Total CO2 25 24-31 mEq/l Anion Gap 21.0 16-25 mmol/L Bedside Blood Urea Nitrogen 15 7-18 mg/dl Blood Urea Nitrogen 15 7-18 mg/dl Creatinine 1.62 0.60-1.20 mg/dl Bedside Creatinine 1.5 0.6-1.3 mg/dl Est Creatinine Clear Calc Drug Dose 73.1 ml/min Estimated GFR () 41.0 Estimated GFR (Non- 35.4 BUN/Creatinine Ratio 9.5 10-20 Bedside Glucose (other) 132 70-99 mg/dl Random Glucose 125 70-99 mg/dl Calcium Level 8.7 8.5-10.1 mg/dl Bedside Ionized Calcium (Ksenia) 1.10 1.12-1.32 mmol/l Troponin I < 0.015 0-0.045 ng/ml Pro-B-Type Natriuretic Peptide 576 0-900 pg/ml Thyroid Stimulating Hormone (TSH) 1.380 0.300-4.500 uIu/ml Lactic Acid Level 3.5 0.4-2.0 mmol/L Test 10/01/17 16:52 Range/Units Bedside Troponin I < 0.030 0-0.045 ng/ml Diagnostic Radiology SINGLE VIEW CHEST CLINICAL HISTORY: Hypoxia. FINDINGS: An AP, portable, upright chest radiograph is obtained. No prior studies are available for comparison at the time of dictation. The examination is degraded by portable technique, large body habitus, and patient rotation. The heart appears enlarged. The pulmonary vasculature is noncongested. There are low lung volumes with bibasilar atelectasis. No airspace consolidation or large pleural effusion is identified. No pneumothorax is seen. The skeletal structures are osteopenic. The bony thorax is grossly intact. IMPRESSION: Mild cardiac enlargement with no acute cardiopulmonary abnormality. CT ANGIOGRAM OF THE CHEST CLINICAL HISTORY: Shortness of breath. Change in mental status. COMPARISON STUDY: Chest x-ray dated 10/01/2017 TECHNIQUE: Following the IV administration of 97 mL of Optiray-320, CT angiogram of the thorax was performed from the thoracic inlet to the lung bases utilizing the pulmonary embolus protocol. Images are reviewed in the axial, sagittal, and coronal planes. IV contrast was administered without complication. MIP imaging was performed. A dose lowering technique was utilized adhering to the principles of ALARA. CT DOSE: 669.72 mGy.cm FINDINGS: No pathologically enlarged axillary mediastinal or hilar lymph nodes were visualized. The ascending thoracic aorta measures 38 mm in diameter. The heart is mildly enlarged Pulmonary artery evaluation is limited due to respiratory motion artifact and the patient's large body habitus. No central emboli are visualized. If there is a strong clinical concern over the presence of pulmonary emboli, then correlation with serial leg ultrasonography should be considered in follow-up No pleural effusions are visualized. There is significant respiratory motion artifact. There are dependent airspace opacities, likely atelectatic. 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 IMPRESSION: 1. Technically limited study secondary to respiratory motion artifact and the patient's large body habitus 2. No central emboli identified 3. Tracheomalacia 4. Dependent airspace opacities likely atelectatic [~ rep ct add3]] CT HEAD WITHOUT CONTRAST (CT) CLINICAL HISTORY: Acute change in mental status COMPARISON STUDY: 07/23/2017 TECHNIQUE: Axial CT of the brain is performed from the vertex to the skull base. IV contrast was not administered for this examination. A dose lowering technique was utilized adhering to the principles of ALARA. CT DOSE: 712.55 mGy.cm FINDINGS: No intra or extra-axial mass lesions are visualized. There is no CT evidence of acute cortical infarction. There is no evidence of midline shift. There is no acute hemorrhage. No calvarial fractures are visualized. There are minimal white matter hypodensities likely on a small vessel basis. There is no evidence of pathologic ventricular dilatation. There is no evidence of acute sinusitis IMPRESSION: No acute intracranial findings Electronically signed by: Parish Ramesh M.D. EKG Accelerated Junctional rhythm Left axis deviation Low voltage QRS Incomplete right bundle branch block Cannot rule out Anterior infarct , age undetermined Abnormal ECG When compared with ECG of 23-JUL-2017 12:28, Junctional rhythm has replaced Sinus rhythm Minimal criteria for Anterior infarct are now Present Impression Assessment and Plan 57yo C female with multiple medical comorbidities presenting with sepsis (Tc= 39.5, NI=999, RR=26, WBC=12.42 with left shift), elevated lactate=3.5 1. Sepsis - as above, patient 4/4 SIRS, qSOFA score of 2, elevated lactate. Source unclear to include urine, blood, skin (LLE cellulitis). UA +. CXR does not suggest acute PNA or pulmonary source. Influenza negative. -Check urine culture, blood cultures x 2 sets -Check LFTs and Lipase level -Repeat lactate in 6 hours -Procalcitonin -NSS x 1 liter then at 125mL/hr x 3 liters -Vancomycin and Zosyn for empiric antibiotic coverage 2. Respiratory distress - Patient with history of asthma, no prior intubations. On arrival tachypnic, mildly hypoxic per ABG. No wheezing appreciated on exam -Supplemental O2 as needed to maintain SaO2 > 94% -Albuterol PRN -Continue Advair and Singulair -Check 2D echocardiogram -Consider repeat CXR in AM -Consider repeat ABG 3. Prior CVA s/p tPA - patient with no focal deficits, CT head negative -Continue ASA -Continue Plavix -Continue Statin 4. Hypertension - patine presently mildly hypertensive -Hold antihypertensive agents - Amiloride, Bisoprolol and Bumex -Continue to monitor BP, can provide IV PRN agents if SBP markedly elevated 5. Anxiety/Depression - Continue Wellbutrin, Buspirone. Hold Trazodone, Seroquel and Nortriptyline due to sedating effects 6. Gout - stable -Continue Allopurinol 7. Chronic pain/Neuropathy - continue Cymbalta and Neurontin. Hold Robaxin and [place] due to sedating effects. 8. LLE cellulitis - no evidence of deeper soft tissue infection -LLE duplex US -Vancomycin and Zosyn as above -Wound care nursing evaluation -Further imaging if clinical deterioration 9. GERD - continue Reglan, Protonix IV 10. CKD - Monitor I/O, renal panel, electrolytes. Renal dosing where appropriate. Avoid nephrotoxic agents. 11. F/E/N - NSS x 1 liter bolus followed by 125mL/hr x 3 liters. Monitor electrolytes and replete as needed. NPO for now, may advance diet when patient' s mental status improves and no longer requiring NIPPV 12. Ppx - Lovenox, Protonix 13. Code - Full per discussion with family 14. Dispo - admit to MICU for respiratory distress/sepsis requiring rescue BiPAP Resuscitation Status FULL VTE Prophylaxis Will order VTE Prophylaxis: Yes
[2017-10-01] MEDS: BusPIRone 15 MG TAB PO SCH (21:00)
[2017-10-01] MEDS: MONTELUKAST SOD 10 MG TAB PO SCH (21:00)
[2017-10-01] MEDS ORDERED: GABAPENTIN 300 MG CAP PO SCH (21:00)
[2017-10-01] MEDS ORDERED: VANCOMYCIN IV 1,000 MG in SODIUM CHLORIDE 0.9% 250ML 250 ML IV SCH (21:00)
[2017-10-01] MEDS ORDERED: METOCLOPRAMIDE HCL 5 MG TAB PO SCH (21:00)
[2017-10-01] MEDS: FLUTICASONE/SALMETEROL 250/50 (ADVAIR) 14 PUFF/1 INHALER INH SCH (21:00)
[2017-10-01] MEDS: ALLOPURINOL 100 MG TAB PO SCH (21:00)
[2017-10-01 21:42] LABS: ALBUMIN 2.7 gm/dl (3.4-5.0); TOTAL PROTEIN 6.3 gm/dl (6.4-8.2)
[2017-10-01] MEDS: DOXYCYCLINE IV 100 MG in DEXTROSE 5% 100ML 100 ML IV SCH (21:43)
[2017-10-01] MEDS ORDERED: POTASSIUM PHOS 3 MMOL/1 ML INFUSION IV STA (22:13)
[2017-10-01] MEDS ORDERED: POTASSIUM CHLR 10 MEQ / WTR 100 ML IV STA (22:13)
[2017-10-01] MEDS ORDERED: ACETAMINOPHEN IV 650 MG in EMPTY BAG 0 ML IV PRN (22:15)
[2017-10-01] MEDS ORDERED: VANCOMYCIN IV 1,750 MG in SODIUM CHLORIDE 0.9% 500ML 500 ML IV ONE (22:15)
[2017-10-01] MEDS ORDERED: SODIUM CHLORIDE 0.9% 250ML 250 ML IV ONE (22:15)
[2017-10-01] MEDS ORDERED: MAGNESIUM SULFATE 1GM / D5W 100 ML IV STA (22:23)
[2017-10-01] MEDS ORDERED: POTASSIUM PHOSPHATE INJ 9 MMOL in SODIUM CHLORIDE 0.9% 250ML 250 ML IV STA (22:34)
--- NOTE | 2017-10-01 22:42 | Pharmacy Progress Note ---
Pharmacy Antibiotic Consult Date of Service: October 01, 2017. Pharmacy Dosing Scope Pharmacy is consulted to initiate vancomycin IV dosing therapy, order appropriate labs and adjust drug dose/frequency. Subjective The patient is a 57 year old female admitted on October 01, 2017 at 18:30. Objective Height (Feet): 5 Height (Inches): 6 Weight (Kilograms): 206.20 Lab Results (24hrs): Test 10/01/17 16:16 10/01/17 16:26 10/01/17 16:28 10/01/17 16:30 Bedside Hemoglobin 11.9 g/dl (12.0-16.0) 11.9 g/dl (12.0-16.0) Bedside Hematocrit 35 % (37-47) 35 % (37-47) Bedside Blood Gas pH (LAB) 7.45 (7.35-7.45) Bedside Blood Gas pCO2 (LAB) 38 mmHg (35-46) Bedside Blood Gas pO2 (LAB) 53 mmHg (80-95) Bedside Blood Gas HCO3 (LAB) 26 meq/L (19-24) Bedside Blood Gas Total CO2 27 mEq/l (24-31) Bedside Blood Gas Base Excess (LAB) 2.0 meq/L (-9-1.8) Bedside Blood Gas O2 Saturation 89.0 % (90-95) Bedside Sodium 142 mEq/L (135-144) 141 mEq/L (135-144) Bedside Potassium 3.5 mEq/L (3.3-5.0) 3.5 mEq/L (3.3-5.0) White Blood Count 12.42 K/uL (4.8-10.8) Red Blood Count 4.37 M/uL (4.2-5.4) Hemoglobin 12.0 g/dL (12.0-16.0) Hematocrit 36.4 % (37-47) Mean Corpuscular Volume 83.3 fL (80-100) Mean Corpuscular Hemoglobin 27.5 pg (25-34) Mean Corpuscular Hemoglobin Concent 33.0 g/dl (32-36) Platelet Count 186 K/uL (130-400) Mean Platelet Volume 9.2 fL (7.4-10.4) Neutrophils (%) (Auto) 92.5 % Lymphocytes (%) (Auto) 3.3 % Monocytes (%) (Auto) 3.3 % Eosinophils (%) (Auto) 0.3 % Basophils (%) (Auto) 0.0 % Neutrophils # (Auto) 11.49 K/uL (1.4-6.5) Lymphocytes # (Auto) 0.41 K/uL (1.2-3.4) Monocytes # (Auto) 0.41 K/uL (0.11-0.59) Eosinophils # (Auto) 0.04 K/uL (0-0.5) Basophils # (Auto) 0.00 K/uL (0-0.2) RDW Standard Deviation 47.7 fL (36.4-46.3) RDW Coefficient of Variation 15.6 % (11.5-14.5) Immature Granulocyte % (Auto) 0.6 % Immature Granulocyte # (Auto) 0.07 K/uL (0.00-0.02) Prothrombin Time 11.1 SECONDS (9.0-12.0) Prothromb Time International Ratio 1.1 (0.9-1.1) Activated Partial Thromboplast Time 24.6 SECONDS (21.0-31.0) Partial Thromboplastin Ratio 0.9 Sodium Level 140 mmol/L (136-145) Potassium Level 3.5 mmol/L (3.5-5.1) Bedside Chloride 100 mEq/L (101-112) Chloride Level 104 mmol/L (98-107) Carbon Dioxide Level 28 mmol/L (21-32) Bedside Total CO2 25 mEq/l (24-31) Anion Gap 21.0 mmol/L (16-25) Bedside Blood Urea Nitrogen 15 mg/dl (7-18) Blood Urea Nitrogen 15 mg/dl (7-18) Creatinine 1.62 mg/dl (0.60-1.20) Bedside Creatinine 1.5 mg/dl (0.6-1.3) Est Creatinine Clear Calc Drug Dose 73.1 ml/min Estimated GFR () 41.0 Estimated GFR (Non- 35.4 BUN/Creatinine Ratio 9.5 (10-20) Bedside Glucose (other) 132 mg/dl (70-99) Random Glucose 125 mg/dl (70-99) Calcium Level 8.7 mg/dl (8.5-10.1) Bedside Ionized Calcium (Ksenia) 1.10 mmol/l (1.12-1.32) Phosphorus Level 1.0 mg/dl (2.5-4.9) Magnesium Level 1.6 mg/dl (1.8-2.4) Total Bilirubin 1.1 mg/dl (0.2-1) Direct Bilirubin 0.5 mg/dl (0-0.2) Aspartate Amino Transf (AST/SGOT) 30 U/L (15-37) Alanine Aminotransferase (ALT/SGPT) 28 U/L (12-78) Alkaline Phosphatase 81 U/L (45-117) Troponin I < 0.015 ng/ml (0-0.045) Pro-B-Type Natriuretic Peptide 576 pg/ml (0-900) Total Protein 6.3 gm/dl (6.4-8.2) Albumin 2.7 gm/dl (3.4-5.0) Lipase 55 U/L (73-393) Thyroid Stimulating Hormone (TSH) 1.380 uIu/ml (0.300-4.500) Lactic Acid Level 3.5 mmol/L (0.4-2.0) Test 10/01/17 16:52 10/01/17 17:35 10/01/17 18:00 10/01/17 20:59 Bedside Troponin I < 0.030 ng/ml (0-0.045) Influenza Type A Antigen Neg for Influ A (NEG) Influenza Type B Antigen Neg for Influ B (NEG) Urine Opiates Screen POS (NEG) Urine Methadone, Qualitative NEG (NEG) Urine Barbiturates NEG (NEG) Urine Phencyclidine (PCP) Level NEG (NEG) Ur Amphetamine/Methamphetamine NEG (NEG) MDMA (Ecstasy) Screen POS (NEG) Urine Benzodiazepines Screen NEG (NEG) Urine Cocaine Metabolite NEG (NEG) Urine Marijuana (THC) NEG (NEG) Lactic Acid Level 3.1 mmol/L (0.4-2.0) Procalcitonin 66.57 ng/ml (0-0.5) Test 10/01/17 21:22 Blood Gas Sample Site L Radial Bedside Blood Gas pH (LAB) 7.45 (7.35-7.45) Bedside Blood Gas pCO2 (LAB) 38 mmHg (35-46) Bedside Blood Gas pO2 (LAB) 66 mmHg (80-95) Bedside Blood Gas HCO3 (LAB) 26 meq/L (19-24) Bedside Blood Gas Total CO2 27 mEq/l (24-31) Bedside Blood Gas Base Excess (LAB) 2.0 meq/L (-9-1.8) Bedside Blood Gas O2 Saturation 94.0 % (90-95) Lucius Test Pass Oxygen Delivery Device Cannula Assessment & Plan Assessment * 57 yo F admitted to ICU with sepsis 2nd cellulitis vs. other. * Procalcitonin significantly elevated * Morbidly obese - difficult to determine adequate vancomycin load * Will give additional vancomycin now (to supplement dose in ED) - will bring total dose administered up to 13 mg/kg * Will check random level in AM * OF NOTE: THIS LEVEL WILL BE CLOSE TO A PEAK (vs. typically draw trough levels ) and therefore may be significantly higher than therapeutic *trough* values. However, want to ensure loading dose was adequate especially 2nd severity of illness and therefore need to ensure level is not subtherapeutic * SCr 1.62 mg/dL - unknown baseline but has hx of CKD III Plan * Vancomycin 1750 mg IV x1 now * Random level with AM labs Pharmacy will continue to follow and will adjust dose/frequency as necessary. Thank you
[2017-10-01] MEDS: ACETAMINOPHEN IV 650 MG in EMPTY BAG 0 ML IV PRN (22:49)
--- NOTE | 2017-10-01 23:25 | Critical Care Progress Note ---
Critical Care Progress Note Date of Service October 01, 2017. Critical Care Progress Note I was approached by nursing staff at approximately 2200 in regards to patient fluid orders. On review of documentation, the patient received 1 L of normal saline initially in the emergency department. She had orders written for normal saline at 150 mL's per hour for 3 L total. The patient has had a precipitous drop in her blood pressure with systolic blood pressures in the 70s. These have been sustained for the last several minutes. At this point, after thorough review evaluation of the patient, I did elect to actively bolus the patient as she has had a minimal decline in her lactic acid over the last 6 hours. The patient will be actively bolused over the next several hours as she remains febrile as well. Patient is actively septic and becoming somewhat hemodynamically compromised. With a previously documented "normal" echocardiogram during previous visit, I am comfortable aggressively bolusing the patient and escalated care (.i.e vasoactives) in the event that she does not improve despite an aggressive IV fluid challenge. In addition, the patient was found to have multiple electrolyte abnormalities including hypophosphatemia as well as borderline hypokalemia of 3.5. In the critical setting, the patient' s potassium will be replaced to maintain values closer to 4.0. In addition, we will continue to trend labs including lactic acid, PRP, and phosphorus levels throughout the night. Clinically, the patient appears dehydrated. She has dry mucous membranes. Her skin is dry. She reports feeling thirsty. She does report poor p.o. intake over the last few days. She is continuing to mentate well. Patient will continue to be a LEVEL ONE FULL RESUSCITATION in the event of any changes. Will continue to monitor closely for any hemodynamic decompensation. I have personally spent 30 minutes of critical care time in the direct management of this patient. This is a life/limb threatening event. This includes time spent evaluating patient, direct bedside care, chart review, placing orders, interpretation of diagnostic studies, discussion with consultants, patient, and family members, as well as other required patient management activities. This time is exclusive of all separately billable procedures, and teaching time and separate from and in addition to any other critical care service time. Thank you for this consultation allow us to be part of this patient's care. Please refer to my attending physician's documentation for any further recommendations.
--- NOTE | 2017-10-01 23:25 | Procedure Note ---
Procedure Note Procedure Date October 01, 2017. Procedure Description Procedure Name: LEFT Arterial Line Procedure time out: side/site verified, patient ID confirmed, correct procedure Consent obtained: written (Consent obtained, signed, and on the chart per my attending.) Time of procedure: 23:45 Performed by: physician architecture internship Indications: diagnostic, therapeutic Contraindications: none Description: Procedure: Arterial Line Placement Attending: Dr. Gross APC: Tomás Armenta PA-C Indication: Monitoring on Pressors Anesthesia: Lidocaine 1% Consent was signed and placed on the chart prior to procedure. Indication, risks , and benefits were explained at length. A time-out was completed verifying correct patient, procedure, site, positioning , and implant(s) or special equipment if applicable. Lucius's test was performed to ensure adequate perfusion. Patient's LEFT wrist was prepped and draped in the usual sterile fashion. Ultrasound guidance was used to aid needle placement. A 20g Arrow arterial line was introduced into the LEFT Radial artery. Catheter was threaded, and the needle was removed with appropriate blood return. Good waveform was observed. The patient tolerated the procedure well. Confirmation of placement with ultrasound. Images saved to medical record. Blood Loss: Minimal Complications: None Procedural Ultrasound Guidance: Procedure Date: 10/01/2017 Indication: Hypotension, Need for frequent lab draws. Attending: Dr. Gross APC: Tomás Armenta PA-C Artery Identified: YES Line confirmed in Artery with ultrasound: YES Complications: NONE Patient tolerated procedure: WELL Complications: none Patient tolerated procedure: well Post-procedure vital signs: reviewed and stable
[2017-10-02] VITALS (29 sets, daily range): BP systolic 90–145; BP diastolic 52–95; PULSE 83–102; TEMP 37.9–39.1; O2SAT 93–100
[2017-10-02] MEDS ORDERED: PIPERACILL/TAZOBAC IV 3.375 GM in DEXTROSE 5% 100ML 100 ML IV SCH ×2
[2017-10-02] MEDS: PIPERACILL/TAZOBAC IV 4.5 GM in D5W 100 ML IV SCH ×3 (00:16→15:08)
[2017-10-02] MEDS: ENOXAPARIN 40 MG/0.4 ML SYR SQ SCH ×2 (01:07→22:32)
[2017-10-02] MEDS: NORMOSOL R 1,000 ML IV SCH ×4 (01:08→22:31)
[2017-10-02 04:52] LABS: HEMATOCRIT 33.8 % (37-47); HEMOGLOBIN 11.1 g/dL (12.0-16.0); MEAN CELL VOLUME 83.9 fL (80-100); MEAN CORPUSCULAR HEMOGLOBIN 27.5 pg (25-34); MEAN CORPUSCULAR HGB CONC 32.8 g/dl (32-36); MEAN PLATELET VOLUME 9.6 fL (7.4-10.4); PLATELET COUNT 178 K/uL (130-400); RED CELL DISTRIBUTION WIDTH SD 49.3 fL (36.4-46.3); WHITE BLOOD COUNT 22.32 K/uL (4.8-10.8)
[2017-10-02] MEDS: ACETAMINOPHEN IV 650 MG in EMPTY BAG 0 ML IV PRN ×3 (05:06→21:56)
[2017-10-02 05:11] LABS: CALCIUM 7.6 mg/dl (8.5-10.1); CREATININE 1.62 mg/dl (0.60-1.20)
[2017-10-02 05:18] LABS: ALBUMIN 2.4 gm/dl (3.4-5.0); PHOSPHORUS 3.3 mg/dl (2.5-4.9); TOTAL PROTEIN 6.3 gm/dl (6.4-8.2)
[2017-10-02 05:39] LABS: BASO ABS # 0.01 K/uL (0-0.2); IG# 0.15 K/uL (0.00-0.02); LYMPH % 2.9 %; LYMPH ABS # 0.65 K/uL (1.2-3.4); MONO % 3.6 %; MONO ABS # 0.81 K/uL (0.11-0.59); NEUT % 92.8 %
--- NOTE | 2017-10-02 06:56 | DIAGNOSTIC IMAGING REPORT ---
LEFT LOWER EXTREMITY VENOUS DOPPLER HISTORY: Left leg edema COMPARISON STUDY: None. FINDINGS: There is normal compressibility, flow, and augmentation within the left lower extremity deep venous system. IMPRESSION: No DVT within the left lower extremity. Electronically signed by: Ji Velasquez M.D. 10/02/2017 6:55 AM Dictated Date/Time: 10/02/2017 6:55 AM
--- NOTE | 2017-10-02 07:13 | DIAGNOSTIC IMAGING REPORT ---
CHEST ONE VIEW PORTABLE HISTORY: Pneumonia. COMPARISON: Chest 10/01/2017. FINDINGS: No pneumothorax. No pleural effusions. The heart remains mildly enlarged. Diffuse interstitial thickening and bibasilar linear densities persist. No new focal lung consolidations. IMPRESSION: 1. No change in the cardiomegaly and mild diffuse interstitial thickening. This could represent mild congestive change. 2. Bibasilar linear densities favor subsegmental atelectasis. Electronically signed by: Ji Velasuqez M.D. 10/02/2017 7:12 AM Dictated Date/Time: 10/02/2017 7:11 AM
--- NOTE | 2017-10-02 07:38 | Critical Care Progress Note ---
Critical Care Progress Note Date of Service October 02, 2017. ICU Day ICU Day Number: [address] Gross Subjective She is feeling better. No recollection of events last night. Wants something to drink. Left leg is sore. No complaint of dyspnea. No abdominal pain. No new focal neurological issues. Blood cultures showing gram + cocci which is likely from the cellulitic process. Meds reviewed and impressive array of psychoactive meds. Antibiotic coverage is comprehensive and should cover the isolate. WBC count noted and will track the trend. Volume replacement has achieved reduced HR and better B/P. May require additional bolus today. Objective HEENT--no target Pulmonary--diminished Cardio--rate is acceptable now. Tones are distant given the habitus GI--obesity Musculo--no acute target Derm--LLE erythema and warmth noted. Psych--calm and interactive with me today. Assessment & Plan Sepsis-- 1. Cardio--will bolus as required. Will discontinue a-line when consistent stability noted in absence of pressors and additional bolus 2. Pulmonary--BiPAP as required... Obesity/hypoventilation suggested 3. ID--coverage in place--await id of the organism for fine tuning of the treatment--skin care per nursing 4. Psych--impressive array of Rx. Will stop the Reglan. Consider reduction of the neurontin. 5. F/E/N--appropriate monitoring in place Data Medications: Current Inpatient Medications Medications (Trade) Dose Ordered Sig/Nader Route Start Time Stop Time Status Last Admin Dose Admin Ioversol (Optiray 320) 100 ml UD PRN IV 10/01/17 16:30 10/05/17 16:29 Enoxaparin Sodium (Lovenox Inj) 40 mg DAILY@2100 SQ 10/01/17 22:30 10/31/17 22:29 10/02/17 01:07 40 MG Miscellaneous Information (Icu Protocol For Hyperglycemia) 1 ea PRN PRN N/A 10/01/17 18:30 10/03/17 18:29 Miscellaneous Information (Consult) 1 ea UD PRN N/A 10/01/17 18:30 10/31/17 18:29 Miscellaneous Information (Consult) 1 ea UD PRN N/A 10/01/17 18:30 10/31/17 18:29 Acetaminophen 650 mg/Empty Bag 65 ml @ 260 mls/hr Q6H PRN IV 10/01/17 18:30 10/31/17 18:29 10/02/17 05:06 260 MLS/HR Albuterol Sulfate (Ventolin 0.5% 2.5MG/0.5ML Neb) 2.5 mg Q4 PRN INH 10/01/17 18:45 10/31/17 18:44 Allopurinol (Zyloprim Tab) 100 mg BID PO 10/01/17 21:00 10/31/17 20:59 Aspirin (Ecotrin Tab) 81 mg QAM PO 10/02/17 09:00 11/01/17 08:59 Atorvastatin Calcium (Lipitor Tab) 40 mg DAILY PO 10/02/17 09:00 11/01/17 08:59 Bupropion HCl (Wellbutrin-Xl Tab) 300 mg DAILY PO 10/02/17 09:00 11/01/17 08:59 Buspirone HCl (BusPAR TAB) 15 mg TID PO 10/01/17 21:00 10/31/17 20:59 Clopidogrel Bisulfate (plAVix TAB) 75 mg QAM PO 10/02/17 09:00 11/01/17 08:59 Duloxetine HCl (Cymbalta Cap) 120 mg DAILY PO 10/02/17 09:00 11/01/17 08:59 Salmeterol Xinafoate/ Fluticasone (Advair Diskus 250/50 Inh) 1 puff BID INH 10/01/17 21:00 10/31/17 20:59 Gabapentin (Neurontin Cap) 900 mg HS PO 10/01/17 21:00 10/31/17 20:59 Metoclopramide HCl (Reglan Tab) 5 mg QID PO 10/01/17 21:00 10/31/17 20:59 Pantoprazole Sodium 40 mg/ Syringe 10 ml @ 5 mls/min DAILY@11 IV 10/02/17 11:00 11/01/17 10:59 Montelukast Sodium (Singulair Tab) 10 mg HS PO 10/01/17 21:00 10/31/17 20:59 Doxycycline Hyclate 100 mg/ Dextrose 110 ml @ 50 mls/hr BID IV 10/01/17 22:00 10/11/17 21:59 10/01/17 21:43 50 MLS/HR Piperacillin Sod/ Tazobactam Sod 4.5 gm/Dextrose 120 ml @ 30 mls/hr Q8@0000,0800,1600 IV 10/02/17 00:00 10/12/17 00:00 10/02/17 00:16 30 MLS/HR Parenteral Electrolyte Solution 1,000 ml @ 125 mls/hr Q8H IV 10/01/17 22:15 10/31/17 22:14 10/02/17 02:42 125 MLS/HR Vital Signs: Date Time Temp Pulse Resp B/P (MAP) Pulse Ox O2 Delivery O2 Flow Rate FiO2 10/02/17 06:04 89 98 30 10/02/17 06:00 38.6 83 22 128/67 (87) 100 BiPAP 30 10/02/17 04:00 38.4 83 24 131/69 (89) 100 BiPAP 30 10/02/17 04:00 100 BiPAP 30 10/02/17 03:00 38.3 83 26 134/68 (90) 100 BiPAP 30 10/02/17 02:04 102 94 30 10/02/17 02:00 38.2 85 24 118/63 (81) 98 BiPAP 30 10/02/17 01:00 38.2 89 28 113/64 (80) 97 BiPAP 30 10/02/17 00:00 38.6 89 22 94/59 (71) 96 BiPAP 30 10/02/17 00:00 95 BiPAP 30 10/01/17 23:31 94 95 30 10/01/17 23:00 38.8 97 23 104/52 (69) 97 BiPAP 30 10/01/17 22:00 38.9 98 23 90/54 (66) 99 Nasal Cannula 3.0 10/01/17 21:27 100 94 30 10/01/17 20:39 38.9 104 29 103/85 (91) 95 Nasal Cannula 3.0 10/01/17 20:00 38.9 102 14 103/85 99 Nasal Cannula 3.0 30 10/01/17 19:36 101 18 95 10/01/17 19:31 111/59 10/01/17 19:06 100 25 95 10/01/17 19:01 107/62 10/01/17 18:47 90 Room Air 10/01/17 18:47 95 Nasal Cannula 3.0 10/01/17 18:40 37.3 102 31 121/91 97 BiPAP 40 10/01/17 18:36 102 29 89 10/01/17 18:31 106/46 10/01/17 18:18 37.3 10/01/17 18:15 101 30 92 10/01/17 18:14 111/50 10/01/17 18:02 /91 10/01/17 17:45 102 28 98 10/01/17 17:40 102 31 97 10/01/17 17:16 121/91 10/01/17 17:10 0 10/01/17 17:00 98 BiPAP 40 10/01/17 16:42 165/79 10/01/17 16:40 111 0 96 10/01/17 16:28 162/68 10/01/17 16:23 115 10/01/17 16:22 39.5 114 26 162/68 97 CPAP 10/01/17 16:15 114 97 40 10/01/17 16:15 114 32 97 BiPAP/CPAP 40 Laboratory Results: Last 24 Hours Test 10/01/17 16:16 10/01/17 16:26 10/01/17 16:28 10/01/17 16:30 Bedside Hemoglobin 11.9 g/dl 11.9 g/dl Bedside Hematocrit 35 % 35 % Bedside Blood Gas pH (LAB) 7.45 Bedside Blood Gas pCO2 (LAB) 38 mmHg Bedside Blood Gas pO2 (LAB) 53 mmHg Bedside Blood Gas HCO3 (LAB) 26 meq/L Bedside Blood Gas Total CO2 27 mEq/l Bedside Blood Gas Base Excess (LAB) 2.0 meq/L Bedside Blood Gas O2 Saturation 89.0 % Bedside Sodium 142 mEq/L 141 mEq/L Bedside Potassium 3.5 mEq/L 3.5 mEq/L White Blood Count 12.42 K/uL Red Blood Count 4.37 M/uL Hemoglobin 12.0 g/dL Hematocrit 36.4 % Mean Corpuscular Volume 83.3 fL Mean Corpuscular Hemoglobin 27.5 pg Mean Corpuscular Hemoglobin Concent 33.0 g/dl Platelet Count 186 K/uL Mean Platelet Volume 9.2 fL Neutrophils (%) (Auto) 92.5 % Lymphocytes (%) (Auto) 3.3 % Monocytes (%) (Auto) 3.3 % Eosinophils (%) (Auto) 0.3 % Basophils (%) (Auto) 0.0 % Neutrophils # (Auto) 11.49 K/uL Lymphocytes # (Auto) 0.41 K/uL Monocytes # (Auto) 0.41 K/uL Eosinophils # (Auto) 0.04 K/uL Basophils # (Auto) 0.00 K/uL RDW Standard Deviation 47.7 fL RDW Coefficient of Variation 15.6 % Immature Granulocyte % (Auto) 0.6 % Immature Granulocyte # (Auto) 0.07 K/uL Prothrombin Time 11.1 SECONDS Prothromb Time International Ratio 1.1 Activated Partial Thromboplast Time 24.6 SECONDS Partial Thromboplastin Ratio 0.9 Sodium Level 140 mmol/L Potassium Level 3.5 mmol/L Bedside Chloride 100 mEq/L Chloride Level 104 mmol/L Carbon Dioxide Level 28 mmol/L Bedside Total CO2 25 mEq/l Anion Gap 21.0 mmol/L Bedside Blood Urea Nitrogen 15 mg/dl Blood Urea Nitrogen 15 mg/dl Creatinine 1.62 mg/dl Bedside Creatinine 1.5 mg/dl Est Creatinine Clear Calc Drug Dose 73.1 ml/min Estimated GFR () 41.0 Estimated GFR (Non- 35.4 BUN/Creatinine Ratio 9.5 Bedside Glucose (other) 132 mg/dl Random Glucose 125 mg/dl Calcium Level 8.7 mg/dl Bedside Ionized Calcium (Ksenia) 1.10 mmol/l Phosphorus Level 1.0 mg/dl Magnesium Level 1.6 mg/dl Total Bilirubin 1.1 mg/dl Direct Bilirubin 0.5 mg/dl Aspartate Amino Transf (AST/SGOT) 30 U/L Alanine Aminotransferase (ALT/SGPT) 28 U/L Alkaline Phosphatase 81 U/L Troponin I < 0.015 ng/ml Pro-B-Type Natriuretic Peptide 576 pg/ml Total Protein 6.3 gm/dl Albumin 2.7 gm/dl Lipase 55 U/L Thyroid Stimulating Hormone (TSH) 1.380 uIu/ml Lactic Acid Level 3.5 mmol/L Test 10/01/17 16:52 10/01/17 17:35 10/01/17 18:00 10/01/17 20:59 Bedside Troponin I < 0.030 ng/ml Influenza Type A Antigen Neg for Influ A Influenza Type B Antigen Neg for Influ B Urine Opiates Screen POS Urine Methadone, Qualitative NEG Urine Barbiturates NEG Urine Phencyclidine (PCP) Level NEG Ur Amphetamine/Methamphetamine NEG MDMA (Ecstasy) Screen POS Urine Benzodiazepines Screen NEG Urine Cocaine Metabolite NEG Urine Marijuana (THC) NEG Lactic Acid Level 3.1 mmol/L Procalcitonin 66.57 ng/ml Test 10/01/17 21:22 10/02/17 04:37 10/02/17 06:11 10/02/17 06:34 Blood Gas Sample Site L Radial Art Line Bedside Blood Gas pH (LAB) 7.45 7.45 Bedside Blood Gas pCO2 (LAB) 38 mmHg 38 mmHg Bedside Blood Gas pO2 (LAB) 66 mmHg 89 mmHg Bedside Blood Gas HCO3 (LAB) 26 meq/L 26 meq/L Bedside Blood Gas Total CO2 27 mEq/l 27 mEq/l Bedside Blood Gas Base Excess (LAB) 2.0 meq/L 2.0 meq/L Bedside Blood Gas O2 Saturation 94.0 % 97.0 % Lucius Test Pass NA Oxygen Delivery Device Cannula BIPAP White Blood Count 22.32 K/uL Red Blood Count 4.03 M/uL Hemoglobin 11.1 g/dL Hematocrit 33.8 % Mean Corpuscular Volume 83.9 fL Mean Corpuscular Hemoglobin 27.5 pg Mean Corpuscular Hemoglobin Concent 32.8 g/dl Platelet Count 178 K/uL Mean Platelet Volume 9.6 fL Neutrophils (%) (Auto) 92.8 % Lymphocytes (%) (Auto) 2.9 % Monocytes (%) (Auto) 3.6 % Eosinophils (%) (Auto) 0.0 % Basophils (%) (Auto) 0.0 % Neutrophils # (Auto) 20.70 K/uL Lymphocytes # (Auto) 0.65 K/uL Monocytes # (Auto) 0.81 K/uL Eosinophils # (Auto) 0.00 K/uL Basophils # (Auto) 0.01 K/uL RDW Standard Deviation 49.3 fL RDW Coefficient of Variation 16.0 % Immature Granulocyte % (Auto) 0.7 % Immature Granulocyte # (Auto) 0.15 K/uL Toxic Vacuolation 1+ Sodium Level 139 mmol/L Chloride Level 106 mmol/L Carbon Dioxide Level 26 mmol/L Anion Gap 7.0 mmol/L Blood Urea Nitrogen 18 mg/dl Creatinine 1.62 mg/dl Est Creatinine Clear Calc Drug Dose 73.1 ml/min Estimated GFR () 41.0 Estimated GFR (Non- 35.4 BUN/Creatinine Ratio 11.1 Random Glucose 120 mg/dl Lactic Acid Level 2.2 mmol/L Calcium Level 7.6 mg/dl Phosphorus Level 3.3 mg/dl Magnesium Level 1.8 mg/dl Total Bilirubin 1.2 mg/dl Direct Bilirubin 0.6 mg/dl Aspartate Amino Transf (AST/SGOT) 36 U/L Alanine Aminotransferase (ALT/SGPT) 30 U/L Alkaline Phosphatase 88 U/L Total Protein 6.3 gm/dl Albumin 2.4 gm/dl Procalcitonin 74.32 ng/ml Random Vancomycin Level 17.8 mcg/ml Bedside Glucose 118 mg/dl Bedside FiO2 30 %
[2017-10-02] MEDS: FLUTICASONE/SALMETEROL 250/50 (ADVAIR) 14 PUFF/1 INHALER INH SCH ×2 (07:40→22:32)
[2017-10-02] MEDS: DOXYCYCLINE IV 100 MG in DEXTROSE 5% 100ML 100 ML IV SCH ×2 (07:41→21:48)
[2017-10-02 07:53] LABS: POTASSIUM 4.2 mmol/L (3.5-5.1)
[2017-10-02] MEDS ORDERED: VANCOMYCIN IV 2,250 MG in SODIUM CHLORIDE 0.9% 500ML 500 ML IV ONE (08:45)
[2017-10-02] MEDS: BusPIRone 15 MG TAB PO SCH ×2 (09:00→13:22)
[2017-10-02] MEDS: PANTOprazole INJ 40 MG in SYRINGE 0 ML IV SCH (10:23)
[2017-10-02] MEDS: ALBUTEROL 0.5% NEB SOLN 2.5 MG/0.5 ML VIAL INH PRN ×2 (10:27→20:35)
[2017-10-02] MEDS: BuPROPion XL 300 MG TABCR PO SCH (13:20)
[2017-10-02] MEDS: CLOPIDOGREL BISULFATE 75 MG TAB PO SCH (13:20)
[2017-10-02] MEDS: ASPIRIN 81 MG ECTAB PO SCH (13:20)
[2017-10-02] MEDS: DULOXETINE HCL 60 MG CAP PO SCH (13:21)
[2017-10-02] MEDS: ATORVASTATIN 40 MG TAB PO SCH (13:21)
[2017-10-02] MEDS: ALLOPURINOL 100 MG TAB PO SCH (13:21)
--- NOTE | 2017-10-02 13:41 | Progress Note ---
Subjective Date of Service: October 02, 2017. Subjective Pt evaluation today including: conversation w/ patient, conversation w/ excellence consultant Pt states she is feeling much improved. No SOB. She is still on O2, which is not her baseline. Is awaiting her first meal, but no abd concerns. Pt denies fever, chest pain, abd pain, n/v/c/d, LE pain or swelling. Problem List Medical Problems: (1) Status post CVA Status: Acute Review of Systems All Other Systems: Reviewed and Negative Objective Vital Signs Date Time Temp Pulse Resp B/P (MAP) Pulse Ox O2 Delivery O2 Flow Rate FiO2 10/02/17 12:00 Nasal Cannula 2.0 10/02/17 10:30 86 20 93 Nasal Cannula 2.0 10/02/17 10:00 38.9 88 22 123/64 (83) 95 Nasal Cannula 2.0 10/02/17 09:00 38.8 86 19 126/65 (85) 98 Nasal Cannula 2.0 10/02/17 08:00 100 CPAP 30 10/02/17 08:00 38.6 86 15 127/65 (85) 97 Nasal Cannula 2.0 10/02/17 06:04 89 98 30 10/02/17 06:00 38.6 83 22 128/67 (87) 100 BiPAP 30 10/02/17 04:00 38.4 83 24 131/69 (89) 100 BiPAP 30 10/02/17 04:00 100 BiPAP 30 10/02/17 03:00 38.3 83 26 134/68 (90) 100 BiPAP 30 10/02/17 02:04 102 94 30 10/02/17 02:00 38.2 85 24 118/63 (81) 98 BiPAP 30 10/02/17 01:00 38.2 89 28 113/64 (80) 97 BiPAP 30 10/02/17 00:00 38.6 89 22 94/59 (71) 96 BiPAP 30 10/02/17 00:00 95 BiPAP 30 10/01/17 23:31 94 95 30 10/01/17 23:00 38.8 97 23 104/52 (69) 97 BiPAP 30 10/01/17 22:00 38.9 98 23 90/54 (66) 99 Nasal Cannula 3.0 10/01/17 21:27 100 94 30 10/01/17 20:39 38.9 104 29 103/85 (91) 95 Nasal Cannula 3.0 10/01/17 20:00 38.9 102 14 103/85 99 Nasal Cannula 3.0 30 10/01/17 19:36 101 18 95 18 19:31 111/59 18 19:06 100 25 95 10/01/17 19:01 107/62 10/01/17 18:47 90 Room Air 10/01/17 18:47 95 Nasal Cannula 3.0 10/01/17 18:40 37.3 102 31 121/91 97 BiPAP 40 10/01/17 18:36 102 29 89 10/01/17 18:31 106/46 10/01/17 18:18 37.3 10/01/17 18:15 101 30 92 10/01/17 18:14 111/50 10/01/17 18:02 /91 10/01/17 17:45 102 28 98 10/01/17 17:40 102 31 97 10/01/17 17:16 121/91 10/01/17 17:10 0 10/01/17 17:00 98 BiPAP 40 10/01/17 16:42 165/79 10/01/17 16:40 111 0 96 10/01/17 16:28 162/68 10/01/17 16:23 115 10/01/17 16:22 39.5 114 26 162/68 97 CPAP 10/01/17 16:15 114 97 40 10/01/17 16:15 114 32 97 BiPAP/CPAP 40 Physical Exam General Appearance: no apparent distress, + obese Eyes: normal inspection, sclerae normal Respiratory/Chest: normal breath sounds, no respiratory distress Cardiovascular: regular rate, rhythm, no edema Abdomen: non tender, soft Extremities: non-tender, + swelling Neurologic/Psychiatric: alert, normal mood/affect, oriented x 3 Skin: warm/dry, + pertinent finding (LLE redness noted) Laboratory Results Last 24 Hours Test 10/01/17 16:26 10/01/17 16:28 10/01/17 16:30 10/01/17 16:52 Bedside Hemoglobin 11.9 g/dl 11.9 g/dl Bedside Hematocrit 35 % 35 % Bedside Blood Gas pH (LAB) 7.45 Bedside Blood Gas pCO2 (LAB) 38 mmHg Bedside Blood Gas pO2 (LAB) 53 mmHg Bedside Blood Gas HCO3 (LAB) 26 meq/L Bedside Blood Gas Total CO2 27 mEq/l Bedside Blood Gas Base Excess (LAB) 2.0 meq/L Bedside Blood Gas O2 Saturation 89.0 % Bedside Sodium 142 mEq/L 141 mEq/L Bedside Potassium 3.5 mEq/L 3.5 mEq/L White Blood Count 12.42 K/uL Red Blood Count 4.37 M/uL Hemoglobin 12.0 g/dL Hematocrit 36.4 % Mean Corpuscular Volume 83.3 fL Mean Corpuscular Hemoglobin 27.5 pg Mean Corpuscular Hemoglobin Concent 33.0 g/dl Platelet Count 186 K/uL Mean Platelet Volume 9.2 fL Neutrophils (%) (Auto) 92.5 % Lymphocytes (%) (Auto) 3.3 % Monocytes (%) (Auto) 3.3 % Eosinophils (%) (Auto) 0.3 % Basophils (%) (Auto) 0.0 % Neutrophils # (Auto) 11.49 K/uL Lymphocytes # (Auto) 0.41 K/uL Monocytes # (Auto) 0.41 K/uL Eosinophils # (Auto) 0.04 K/uL Basophils # (Auto) 0.00 K/uL RDW Standard Deviation 47.7 fL RDW Coefficient of Variation 15.6 % Immature Granulocyte % (Auto) 0.6 % Immature Granulocyte # (Auto) 0.07 K/uL Prothrombin Time 11.1 SECONDS Prothromb Time International Ratio 1.1 Activated Partial Thromboplast Time 24.6 SECONDS Partial Thromboplastin Ratio 0.9 Sodium Level 140 mmol/L Potassium Level 3.5 mmol/L Bedside Chloride 100 mEq/L Chloride Level 104 mmol/L Carbon Dioxide Level 28 mmol/L Bedside Total CO2 25 mEq/l Anion Gap 21.0 mmol/L Bedside Blood Urea Nitrogen 15 mg/dl Blood Urea Nitrogen 15 mg/dl Creatinine 1.62 mg/dl Bedside Creatinine 1.5 mg/dl Est Creatinine Clear Calc Drug Dose 73.1 ml/min Estimated GFR () 41.0 Estimated GFR (Non- 35.4 BUN/Creatinine Ratio 9.5 Bedside Glucose (other) 132 mg/dl Random Glucose 125 mg/dl Calcium Level 8.7 mg/dl Bedside Ionized Calcium ([place]) 1.10 mmol/l Phosphorus Level 1.0 mg/dl Magnesium Level 1.6 mg/dl Total Bilirubin 1.1 mg/dl Direct Bilirubin 0.5 mg/dl Aspartate Amino Transf (AST/SGOT) 30 U/L Alanine Aminotransferase (ALT/SGPT) 28 U/L Alkaline Phosphatase 81 U/L Troponin I < 0.015 ng/ml Pro-B-Type Natriuretic Peptide 576 pg/ml Total Protein 6.3 gm/dl Albumin 2.7 gm/dl Lipase 55 U/L Thyroid Stimulating Hormone (TSH) 1.380 uIu/ml Lactic Acid Level 3.5 mmol/L Bedside Troponin I < 0.030 ng/ml Test 10/01/17 17:35 10/01/17 18:00 10/01/17 20:59 10/01/17 21:22 Influenza Type A Antigen Neg for Influ A Influenza Type B Antigen Neg for Influ B Urine Opiates Screen POS Urine Methadone, Qualitative NEG Urine Barbiturates NEG Urine Phencyclidine (PCP) Level NEG Ur Amphetamine/Methamphetamine NEG MDMA (Ecstasy) Screen POS Urine Benzodiazepines Screen NEG Urine Cocaine Metabolite NEG Urine Marijuana (THC) NEG Lactic Acid Level 3.1 mmol/L Procalcitonin 66.57 ng/ml Blood Gas Sample Site L Radial Bedside Blood Gas pH (LAB) 7.45 Bedside Blood Gas pCO2 (LAB) 38 mmHg Bedside Blood Gas pO2 (LAB) 66 mmHg Bedside Blood Gas HCO3 (LAB) 26 meq/L Bedside Blood Gas Total CO2 27 mEq/l Bedside Blood Gas Base Excess (LAB) 2.0 meq/L Bedside Blood Gas O2 Saturation 94.0 % Lucius Test Pass Oxygen Delivery Device Cannula Test 10/02/17 04:37 10/02/17 06:11 10/02/17 06:34 10/02/17 08:40 White Blood Count 22.32 K/uL Red Blood Count 4.03 M/uL Hemoglobin 11.1 g/dL Hematocrit 33.8 % Mean Corpuscular Volume 83.9 fL Mean Corpuscular Hemoglobin 27.5 pg Mean Corpuscular Hemoglobin Concent 32.8 g/dl Platelet Count 178 K/uL Mean Platelet Volume 9.6 fL Neutrophils (%) (Auto) 92.8 % Lymphocytes (%) (Auto) 2.9 % Monocytes (%) (Auto) 3.6 % Eosinophils (%) (Auto) 0.0 % Basophils (%) (Auto) 0.0 % Neutrophils # (Auto) 20.70 K/uL Lymphocytes # (Auto) 0.65 K/uL Monocytes # (Auto) 0.81 K/uL Eosinophils # (Auto) 0.00 K/uL Basophils # (Auto) 0.01 K/uL RDW Standard Deviation 49.3 fL RDW Coefficient of Variation 16.0 % Immature Granulocyte % (Auto) 0.7 % Immature Granulocyte # (Auto) 0.15 K/uL Toxic Vacuolation 1+ Sodium Level 139 mmol/L Potassium Level 4.2 mmol/L Chloride Level 106 mmol/L Carbon Dioxide Level 26 mmol/L Anion Gap 7.0 mmol/L Blood Urea Nitrogen 18 mg/dl Creatinine 1.62 mg/dl Est Creatinine Clear Calc Drug Dose 73.1 ml/min Estimated GFR () 41.0 Estimated GFR (Non- 35.4 BUN/Creatinine Ratio 11.1 Random Glucose 120 mg/dl Lactic Acid Level 2.2 mmol/L Calcium Level 7.6 mg/dl Phosphorus Level 3.3 mg/dl Magnesium Level 1.8 mg/dl Total Bilirubin 1.2 mg/dl Direct Bilirubin 0.6 mg/dl Aspartate Amino Transf (AST/SGOT) 36 U/L Alanine Aminotransferase (ALT/SGPT) 30 U/L Alkaline Phosphatase 88 U/L Total Protein 6.3 gm/dl Albumin 2.4 gm/dl Procalcitonin 74.32 ng/ml Random Vancomycin Level 17.8 mcg/ml Bedside Glucose 118 mg/dl Blood Gas Sample Site Art Line Bedside Blood Gas pH (LAB) 7.45 Bedside Blood Gas pCO2 (LAB) 38 mmHg Bedside Blood Gas pO2 (LAB) 89 mmHg Bedside Blood Gas HCO3 (LAB) 26 meq/L Bedside Blood Gas Total CO2 27 mEq/l Bedside Blood Gas Base Excess (LAB) 2.0 meq/L Bedside Blood Gas O2 Saturation 97.0 % Lucius Test NA Oxygen Delivery Device BIPAP Bedside FiO2 30 % Urine Color DK YELLOW Urine Appearance CLEAR Urine pH 5.0 Urine Specific [place] 1.031 Urine Protein TRACE Urine Glucose (UA) NEG Urine Ketones NEG Urine Occult Blood TRACE Urine Nitrite NEG Urine Bilirubin NEG Urine Urobilinogen NEG Urine Leukocyte Esterase NEG Urine WBC (Auto) 1-5 /hpf Urine RBC (Auto) 0-4 /hpf Urine Hyaline Casts (Auto) 1-5 /lpf Urine Epithelial Cells (Auto) 20-30 /lpf Urine Bacteria (Auto) NEG Test 10/02/17 12:53 Bedside Glucose 101 mg/dl Assessment and Plan 57yo C female with multiple medical comorbidities presenting with sepsis (Tc= 39.5, TQ=690, RR=26, WBC=12.42 with left shift), elevated lactate=3.5 Sepsis - as above, patient 4/4 SIRS, qSOFA score of 2, elevated lactate. Source unclear to include urine, blood, skin (LLE cellulitis). UA +. CXR does not suggest acute PNA or pulmonary source. Influenza negative. -Check urine culture, blood cultures x 2 sets -Repeat lactate is trending down -Vancomycin and Zosyn for empiric antibiotic coverage LLE cellulitis - no evidence of deeper soft tissue infection -LLE duplex US neg for DVT -Vancomycin and Zosyn as above -Wound care nursing evaluation Respiratory distress - Patient with history of asthma, no prior intubations. On arrival tachypnic, mildly hypoxic per ABG. -Supplemental O2 as needed to maintain SaO2 > 94% -Albuterol PRN -Continue Advair and Singulair -Check 2D echocardiogram -Repeat CXR neg HypoMg, hypoPhos: replace and monitor Prior CVA s/p tPA - patient with no focal deficits, CT head negative -Continue ASA -Continue Plavix -Continue Statin Hypertension - patine presently mildly hypertensive -Hold antihypertensive agents - Amiloride, Bisoprolol and Bumex -Continue to monitor BP, can provide IV PRN agents if SBP markedly elevated Anxiety/Depression - Continue Wellbutrin, Buspirone. Hold Trazodone, Seroquel and Nortriptyline due to sedating effects Gout - stable -Continue Allopurinol Chronic pain/Neuropathy - continue Cymbalta and Neurontin. Hold Robaxin and [place] due to sedating effects. GERD - continue Reglan, Protonix IV CKD - Monitor I/O, renal panel, electrolytes Cr appears at baseline 1.6 F/E/N - NSS x 1 liter bolus followed by 125mL/hr x 3 liters. Monitor electrolytes and replete as needed. NPO for now, may advance diet when patient' s mental status improves and no longer requiring NIPPV Ppx - Lovenox, Protonix Code - Full per discussion with family L art line placed 10/01
[2017-10-02] MEDS ORDERED: ONDANSETRON INJ 2 MG/ML 2 ML VIAL IV STA (21:36)
[2017-10-02] MEDS ORDERED: ONDANSETRON INJ 2 MG/ML 2 ML VIAL ONE (21:37)
[2017-10-02] MEDS ORDERED: METOCLOPRAMIDE HCL INJ 5 MG/ML 2 ML VIAL IV. STA (21:55)
[2017-10-02] MEDS ORDERED: METOCLOPRAMIDE HCL INJ 5 MG/ML 2 ML VIAL ONE (22:00)
[2017-10-02] MEDS ORDERED: METOCLOPRAMIDE HCL INJ 5 MG/ML 2 ML VIAL IV. PRN (22:00)
[2017-10-03] VITALS (16 sets, daily range): BP systolic 88–154; BP diastolic 60–99; PULSE 89–96; TEMP 36.8–38.2; O2SAT 90–99
[2017-10-03] MEDS ORDERED: VANCOMYCIN IV 2,250 MG in SODIUM CHLORIDE 0.9% 500ML 500 ML IV ONE ×2
[2017-10-03] MEDS: PIPERACILL/TAZOBAC IV 4.5 GM in D5W 100 ML IV SCH ×3 (00:44→16:31)
[2017-10-03] MEDS: BusPIRone 15 MG TAB PO SCH ×4 (00:50→20:45)
[2017-10-03] MEDS: GABAPENTIN 600 MG TAB PO SCH ×2 (00:51→20:45)
[2017-10-03] MEDS: MONTELUKAST SOD 10 MG TAB PO SCH ×2 (00:51→20:45)
[2017-10-03] MEDS: ALLOPURINOL 100 MG TAB PO SCH ×3 (00:52→20:44)
[2017-10-03] MEDS ORDERED: ONDANSETRON INJ 2 MG/ML 2 ML VIAL ONE (03:28)
[2017-10-03] MEDS ORDERED: ONDANSETRON INJ 2 MG/ML 2 ML VIAL IV. PRN (03:30)
[2017-10-03 04:54] LABS: ALBUMIN 2.2 gm/dl (3.4-5.0); CALCIUM 7.5 mg/dl (8.5-10.1); CREATININE 1.38 mg/dl (0.60-1.20); PHOSPHORUS 2.6 mg/dl (2.5-4.9); POTASSIUM 3.6 mmol/L (3.5-5.1); TOTAL PROTEIN 6.2 gm/dl (6.4-8.2)
[2017-10-03] MEDS: ONDANSETRON INJ 2 MG/ML 2 ML VIAL IV. SCH ×3 (04:57→17:57)
[2017-10-03 05:40] LABS: BASO % 0.1 %; BASO ABS # 0.02 K/uL (0-0.2); EOS % 0.1 %; EOS ABS # 0.01 K/uL (0-0.5); HEMATOCRIT 31.5 % (37-47); HEMOGLOBIN 10.3 g/dL (12.0-16.0); IG# 0.07 K/uL (0.00-0.02); LYMPH % 4.5 %; LYMPH ABS # 0.76 K/uL (1.2-3.4); MEAN CELL VOLUME 83.3 fL (80-100); MEAN CORPUSCULAR HEMOGLOBIN 27.2 pg (25-34); MEAN PLATELET VOLUME 9.3 fL (7.4-10.4); MONO % 3.2 %; MONO ABS # 0.55 K/uL (0.11-0.59); NEUT % 91.7 %; NEUT ABS # 15.64 K/uL (1.4-6.5); PLATELET COUNT 159 K/uL (130-400); RED CELL DISTRIBUTION WIDTH CV 16.5 % (11.5-14.5); RED CELL DISTRIBUTION WIDTH SD 50.5 fL (36.4-46.3); WHITE BLOOD COUNT 17.05 K/uL (4.8-10.8)
[2017-10-03 05:57] LABS: MEAN CORPUSCULAR HGB CONC 32.7 g/dl (32-36)
[2017-10-03] MEDS: NORMOSOL R 1,000 ML IV SCH ×3 (05:57→21:34)
--- NOTE | 2017-10-03 06:34 | Critical Care Progress Note ---
Critical Care Progress Note Date of Service October 03, 2017. Critical Care Progress Note Throughout the night, the patient had increasing nausea and vomiting. In addition, she initially complained of a headache. Her physical exam was unremarkable without focal neurological deficits. She did seem to settle down with administration of Reglan after Zofran had failed. In addition, she responded well to IV Tylenol. Late in the morning, the patient did develop return of nausea and vomiting which did not respond to IV Zofran. At this point , given continued symptoms with associated complaints of headache, I did elect to perform CT of the head as well as abdomen and pelvis. CT of the head demonstrated no acute intra-abdominal pathology. Abdomen and pelvis CT demonstrates no acute obstructive changes, however the stomach is dilated. Will continue with Reglan at this point. Question the patient has a component of gastroparesis. We will continue to monitor.
--- NOTE | 2017-10-03 07:23 | DIAGNOSTIC IMAGING REPORT ---
CHEST ONE VIEW PORTABLE CLINICAL HISTORY: Pneumonia. Respiratory distress COMPARISON STUDY: 10/02/2017 FINDINGS: The heart remains enlarged. There is mild superior mediastinal prominence. There is persistent diffuse interstitial thickening. There is no lobar consolidation. There are no pleural effusions.[ IMPRESSION: Stable cardiomegaly and mild interstitial thickening/edema. No evidence of lobar consolidation Electronically signed by: Parish Ramesh M.D. 10/03/2017 7:21 AM Dictated Date/Time: 10/03/2017 7:20 AM
--- NOTE | 2017-10-03 07:30 | DIAGNOSTIC IMAGING REPORT ---
CT HEAD WITHOUT CONTRAST (CT) CLINICAL HISTORY: Severe headache, nausea, vomiting. COMPARISON STUDY: 10/01/2017 TECHNIQUE: Axial CT of the brain is performed from the vertex to the skull base. IV contrast was not administered for this examination. A dose lowering technique was utilized adhering to the principles of ALARA. CT DOSE: 687.98 mGy.cm FINDINGS: No intra or extra-axial mass lesions are visualized. There is no CT evidence of acute cortical infarction. There is no evidence of midline shift. There is no acute hemorrhage. No calvarial fractures are visualized. There are minimal white matter hypodensities likely on a small vessel basis. There is no evidence of pathologic ventricular dilatation. There is no evidence of acute sinusitis IMPRESSION: No acute intracranial findings Electronically signed by: Parish Ramesh M.D. 10/03/2017 7:29 AM Dictated Date/Time: 10/03/2017 7:28 AM
--- NOTE | 2017-10-03 07:43 | DIAGNOSTIC IMAGING REPORT ---
CT SCAN OF THE ABDOMEN AND PELVIS WITHOUT CONTRAST CLINICAL HISTORY: Nausea, vomiting, abdominal pain COMPARISON STUDY: No previous studies for comparison. TECHNIQUE: CT scan of the abdomen and pelvis was performed from the lung bases to the proximal femurs. Images are reviewed in the axial, sagittal, and coronal planes. IV contrast was not administered for this examination. A dose lowering technique was utilized adhering to the principles of ALARA. CT DOSE: 1888.96 mGy.cm FINDINGS: Evaluation is somewhat limited due to the patient's large body habitus, and lack of intravenous and oral contrast. Lower chest: There are dependent atelectatic changes present. Liver: There is hepatomegaly and hepatic steatosis. No focal masses are visualized. Gallbladder: Surgically absent Spleen: The spleen is enlarged measuring 14.7 cm Pancreas: Unremarkable. Adrenal glands: Unremarkable. Kidneys: There are bilateral nonobstructing intrarenal calculi. Left renal cortical calcifications are also suspected. There is right renal atrophy. No ureteral calculi are visualized. Bowel: There are no transition zones indicate a small bowel obstruction. There is no acute diverticulitis. The appendix is not visualized with certainty. There are no findings to indicate acute appendicitis. The stomach is distended. Peritoneum: There is no free air. There is trace free pelvic fluid likely physiologic. Vasculature: The abdominal aorta is normal in course and caliber. Adenopathy: None. Pelvic viscera: The left ovary appears enlarged measuring 56 mm. There is minimal infiltration of the fat superior to the left ovary.. Bladder is empty. There appears to be a Bales catheter present. Skeletal structures: There are multilevel degenerative changes present within the lumbar spine. IMPRESSION: 1. Hepatic steatosis, and hepatosplenomegaly 2. Bilateral nephrolithiasis. Right renal scarring. 3. Distended stomach 4. No evidence of small bowel obstruction. No evidence of free air 5. Nonspecific enlargement of the left ovary which measures 56 mm. There is nonspecific infiltration of the fat superior to the left ovary 6. This examination is limited due to the patient's very large body habitus Electronically signed by: Parish Ramesh M.D. 10/03/2017 7:41 AM Dictated Date/Time: 10/03/2017 7:29 AM
[2017-10-03] MEDS: DOXYCYCLINE IV 100 MG in DEXTROSE 5% 100ML 100 ML IV SCH ×2 (07:51→20:50)
[2017-10-03] MEDS: FLUTICASONE/SALMETEROL 250/50 (ADVAIR) 14 PUFF/1 INHALER INH SCH ×2 (07:54→20:41)
[2017-10-03] MEDS: DULOXETINE HCL 60 MG CAP PO SCH (07:56)
[2017-10-03] MEDS: ATORVASTATIN 40 MG TAB PO SCH (07:56)
[2017-10-03] MEDS: CLOPIDOGREL BISULFATE 75 MG TAB PO SCH (07:56)
[2017-10-03] MEDS: BuPROPion XL 300 MG TABCR PO SCH (07:57)
[2017-10-03] MEDS: ASPIRIN 81 MG ECTAB PO SCH (07:57)
--- NOTE | 2017-10-03 08:19 | Critical Care Progress Note ---
Critical Care Progress Note Date of Service October 03, 2017. ICU Day ICU Day Number: 2 Attending Subjective She is doing better. Cardiopulmonary status has been stable. B/P is stable. Had some GI distress last night. Images ok. Brain image for headache also noted. Temps are down. WBCs are down. Antibiotics tolerated. She was up out of bed yesterday. Objective Gen--she is feeling better and looking better AM today. HEENT--no target Pulmonary--diminished but acceptable Cardio--rate is acceptable now. Tones are distant given the habitus GI--obesity Musculo--no acute target Derm--LLE erythema and warmth noted. no worsening suggested Psych--calm and interactive with me today. Assessment & Plan Sepsis-- 1. Cardio--hemodynamics are stable. Will discontinue the a-line. 2. Pulmonary--BiPAP as required... Obesity/hypoventilation suggested 3. ID--coverage in place--await id of the organism for fine tuning of the treatment--skin care per nursing--gram +s noted 4. Psych--impressive array of Rx. Neurontin was reduced 5. F/E/N--appropriate monitoring in place- 6. Dispo--she can move from the ICU. Data Medications: Current Inpatient Medications Medications (Trade) Dose Ordered Sig/Nader Route Start Time Stop Time Status Last Admin Dose Admin Ioversol (Optiray 320) 100 ml UD PRN IV 10/01/17 16:30 10/05/17 16:29 Enoxaparin Sodium (Lovenox Inj) 40 mg DAILY@2100 SQ 10/01/17 22:30 10/31/17 22:29 10/02/17 22:32 40 MG Miscellaneous Information (Icu Protocol For Hyperglycemia) 1 ea PRN PRN N/A 10/01/17 18:30 10/03/17 18:29 Miscellaneous Information (Consult) 1 ea UD PRN N/A 10/01/17 18:30 10/31/17 18:29 Miscellaneous Information (Consult) 1 ea UD PRN N/A 10/01/17 18:30 10/31/17 18:29 Acetaminophen 650 mg/Empty Bag 65 ml @ 260 mls/hr Q6H PRN IV 10/01/17 18:30 10/31/17 18:29 10/02/17 21:56 260 MLS/HR Albuterol Sulfate (Ventolin 0.5% 2.5MG/0.5ML Neb) 2.5 mg Q4 PRN INH 10/01/17 18:45 10/31/17 18:44 10/02/17 20:35 2.5 MG Allopurinol (Zyloprim Tab) 100 mg BID PO 10/01/17 21:00 10/31/17 20:59 10/03/17 07:57 100 MG Aspirin (Ecotrin Tab) 81 mg QAM PO 10/02/17 09:00 11/01/17 08:59 10/03/17 07:57 81 MG Atorvastatin Calcium (Lipitor Tab) 40 mg DAILY PO 10/02/17 09:00 11/01/17 08:59 10/03/17 07:56 40 MG Bupropion HCl (Wellbutrin-Xl Tab) 300 mg DAILY PO 10/02/17 09:00 11/01/17 08:59 10/03/17 07:57 300 MG Buspirone HCl (BusPAR TAB) 15 mg TID PO 10/01/17 21:00 10/31/17 20:59 10/03/17 07:57 15 MG Clopidogrel Bisulfate (plAVix TAB) 75 mg QAM PO 10/02/17 09:00 11/01/17 08:59 10/03/17 07:56 75 MG Duloxetine HCl (Cymbalta Cap) 120 mg DAILY PO 10/02/17 09:00 11/01/17 08:59 10/03/17 07:56 120 MG Salmeterol Xinafoate/ Fluticasone (Advair Diskus 250/50 Inh) 1 puff BID INH 10/01/17 21:00 10/31/17 20:59 10/03/17 07:54 1 PUFF Pantoprazole Sodium 40 mg/ Syringe 10 ml @ 5 mls/min DAILY@11 IV 10/02/17 11:00 11/01/17 10:59 10/02/17 10:23 5 MLS/MIN Montelukast Sodium (Singulair Tab) 10 mg HS PO 10/01/17 21:00 10/31/17 20:59 10/03/17 00:51 10 MG Doxycycline Hyclate 100 mg/ Dextrose 110 ml @ 50 mls/hr BID IV 10/01/17 22:00 10/11/17 21:59 10/03/17 07:51 50 MLS/HR Piperacillin Sod/ Tazobactam Sod 4.5 gm/Dextrose 120 ml @ 30 mls/hr Q8@0000,0800,1600 IV 10/02/17 00:00 10/12/17 00:00 10/03/17 07:50 30 MLS/HR Parenteral Electrolyte Solution 1,000 ml @ 125 mls/hr Q8H IV 10/01/17 22:15 10/31/17 22:14 10/03/17 05:57 125 MLS/HR Gabapentin (Neurontin Tab) 600 mg HS PO 10/02/17 21:00 10/31/17 20:59 10/03/17 00:51 600 MG Metoclopramide HCl (Reglan Inj) 10 mg Q6H PRN IV. 10/02/17 22:00 11/01/17 21:59 Ondansetron HCl (Zofran Inj) 4 mg Q6H IV. 10/03/17 06:00 11/02/17 05:59 Vital Signs: Date Time Temp Pulse Resp B/P (MAP) Pulse Ox O2 Delivery O2 Flow Rate FiO2 10/03/17 06:00 37.5 95 24 134/75 (94) 96 10/03/17 05:01 37.6 96 20 126/74 (91) 90 10/03/17 05:00 37.6 95 22 154/68 (96) 91 10/03/17 04:44 96 Nasal Cannula 2.0 10/03/17 04:08 37.9 95 26 130/82 (98) 93 10/03/17 04:06 95 13 128/77 (94) 93 10/03/17 03:01 37.5 90 21 88/71 (77) 92 10/03/17 03:00 37.5 89 28 138/91 (107) 93 10/03/17 02:00 37.6 89 24 120/69 (86) 92 10/03/17 01:01 37.8 90 21 120/64 (82) 92 10/03/17 00:01 38.2 93 24 113/99 (104) 90 10/03/17 00:00 96 Nasal Cannula 2.0 10/02/17 23:02 38.8 95 22 90/62 (71) 93 10/02/17 23:00 38.8 95 27 92/68 (76) 93 10/02/17 22:01 38.9 98 20 128/71 (90) 93 10/02/17 22:00 38.9 98 22 111/65 (80) 93 10/02/17 21:01 39.0 101 27 145/95 (112) 94 10/02/17 21:00 39.0 102 17 131/85 (100) 94 10/02/17 20:35 99 18 96 Nasal Cannula 2.0 10/02/17 20:01 39.0 98 28 95/56 (69) 96 10/02/17 20:00 39.0 99 23 105/69 (81) 96 10/02/17 20:00 96 Nasal Cannula 2.0 10/02/17 19:02 38.6 95 23 91/76 (81) 98 10/02/17 19:00 38.6 95 18 140/68 (92) 96 10/02/17 18:00 38.1 90 19 133/63 (86) 94 Nasal Cannula 2.0 10/02/17 16:00 Nasal Cannula 2.0 10/02/17 16:00 37.9 87 25 107/52 (70) 96 10/02/17 15:00 38.6 88 19 95/55 (68) 97 Nasal Cannula 2.0 10/02/17 14:00 38.9 92 24 127/61 (83) 96 Nasal Cannula 2.0 10/02/17 13:01 38.8 90 22 102/58 (73) 98 Nasal Cannula 2.0 10/02/17 12:00 39.1 89 22 119/55 (76) 98 Nasal Cannula 2.0 10/02/17 12:00 Nasal Cannula 2.0 10/02/17 10:30 86 20 93 Nasal Cannula 2.0 10/02/17 10:00 38.9 88 22 123/64 (83) 95 Nasal Cannula 2.0 10/02/17 09:00 38.8 86 19 126/65 (85) 98 Nasal Cannula 2.0 Laboratory Results: Last 24 Hours Test 10/02/17 08:40 10/02/17 12:53 10/02/17 18:13 10/02/17 22:05 Urine Color DK YELLOW Urine Appearance CLEAR Urine pH 5.0 Urine Specific [place] 1.031 Urine Protein TRACE Urine Glucose (UA) NEG Urine Ketones NEG Urine Occult Blood TRACE Urine Nitrite NEG Urine Bilirubin NEG Urine Urobilinogen NEG Urine Leukocyte Esterase NEG Urine WBC (Auto) 1-5 /hpf Urine RBC (Auto) 0-4 /hpf Urine Hyaline Casts (Auto) 1-5 /lpf Urine Epithelial Cells (Auto) 20-30 /lpf Urine Bacteria (Auto) NEG Bedside Glucose 101 mg/dl 104 mg/dl Random Vancomycin Level 14.1 mcg/ml Test 10/03/17 04:19 10/03/17 05:13 10/03/17 05:25 Sodium Level 138 mmol/L Potassium Level 3.6 mmol/L Chloride Level 105 mmol/L Carbon Dioxide Level 24 mmol/L Anion Gap 9.0 mmol/L Blood Urea Nitrogen 16 mg/dl Creatinine 1.38 mg/dl Est Creatinine Clear Calc Drug Dose 85.8 ml/min Estimated GFR () 49.8 Estimated GFR (Non- 42.9 BUN/Creatinine Ratio 11.4 Random Glucose 151 mg/dl Lactic Acid Level 2.5 mmol/L Calcium Level 7.5 mg/dl Phosphorus Level 2.6 mg/dl Magnesium Level 2.1 mg/dl Total Bilirubin 0.8 mg/dl Direct Bilirubin 0.3 mg/dl Aspartate Amino Transf (AST/SGOT) 47 U/L Alanine Aminotransferase (ALT/SGPT) 31 U/L Alkaline Phosphatase 87 U/L Total Protein 6.2 gm/dl Albumin 2.2 gm/dl Procalcitonin 47.39 ng/ml White Blood Count 17.05 K/uL Red Blood Count 3.78 M/uL Hemoglobin 10.3 g/dL Hematocrit 31.5 % Mean Corpuscular Volume 83.3 fL Mean Corpuscular Hemoglobin 27.2 pg Mean Corpuscular Hemoglobin Concent 32.7 g/dl Platelet Count 159 K/uL Mean Platelet Volume 9.3 fL Neutrophils (%) (Auto) 91.7 % Lymphocytes (%) (Auto) 4.5 % Monocytes (%) (Auto) 3.2 % Eosinophils (%) (Auto) 0.1 % Basophils (%) (Auto) 0.1 % Neutrophils # (Auto) 15.64 K/uL Lymphocytes # (Auto) 0.76 K/uL Monocytes # (Auto) 0.55 K/uL Eosinophils # (Auto) 0.01 K/uL Basophils # (Auto) 0.02 K/uL RDW Standard Deviation 50.5 fL RDW Coefficient of Variation 16.5 % Immature Granulocyte % (Auto) 0.4 % Immature Granulocyte # (Auto) 0.07 K/uL Bedside Glucose 161 mg/dl
[2017-10-03] MEDS: PANTOprazole INJ 40 MG in SYRINGE 0 ML IV SCH (10:55)
[2017-10-03] MEDS ORDERED: VANCOMYCIN IV 2,000 MG in SODIUM CHLORIDE 0.9% 500ML 500 ML IV STA (12:15)
--- NOTE | 2017-10-03 12:33 | Pharmacy Progress Note ---
Pharmacy Antibiotic Prog Note Date of Service October 03, 2017. Subjective The patient is currently receiving vancomycin prn levels Objective Height (Feet): 5 Height (Inches): 6.00 Weight (Kilograms): 206.200 Lab Results (24hrs): Test 10/02/17 18:13 10/02/17 22:05 10/03/17 04:19 10/03/17 05:13 Bedside Glucose 104 mg/dl (70-90) Random Vancomycin Level 14.1 mcg/ml Sodium Level 138 mmol/L (136-145) Potassium Level 3.6 mmol/L (3.5-5.1) Chloride Level 105 mmol/L (98-107) Carbon Dioxide Level 24 mmol/L (21-32) Anion Gap 9.0 mmol/L (3-11) Blood Urea Nitrogen 16 mg/dl (7-18) Creatinine 1.38 mg/dl (0.60-1.20) Est Creatinine Clear Calc Drug Dose 85.8 ml/min Estimated GFR () 49.8 Estimated GFR (Non- 42.9 BUN/Creatinine Ratio 11.4 (10-20) Random Glucose 151 mg/dl (70-99) Lactic Acid Level 2.5 mmol/L (0.4-2.0) Calcium Level 7.5 mg/dl (8.5-10.1) Phosphorus Level 2.6 mg/dl (2.5-4.9) Magnesium Level 2.1 mg/dl (1.8-2.4) Total Bilirubin 0.8 mg/dl (0.2-1) Direct Bilirubin 0.3 mg/dl (0-0.2) Aspartate Amino Transf (AST/SGOT) 47 U/L (15-37) Alanine Aminotransferase (ALT/SGPT) 31 U/L (12-78) Alkaline Phosphatase 87 U/L (45-117) Total Protein 6.2 gm/dl (6.4-8.2) Albumin 2.2 gm/dl (3.4-5.0) Procalcitonin 47.39 ng/ml (0-0.5) White Blood Count 17.05 K/uL (4.8-10.8) Red Blood Count 3.78 M/uL (4.2-5.4) Hemoglobin 10.3 g/dL (12.0-16.0) Hematocrit 31.5 % (37-47) Mean Corpuscular Volume 83.3 fL (80-100) Mean Corpuscular Hemoglobin 27.2 pg (25-34) Mean Corpuscular Hemoglobin Concent 32.7 g/dl (32-36) Platelet Count 159 K/uL (130-400) Mean Platelet Volume 9.3 fL (7.4-10.4) Neutrophils (%) (Auto) 91.7 % Lymphocytes (%) (Auto) 4.5 % Monocytes (%) (Auto) 3.2 % Eosinophils (%) (Auto) 0.1 % Basophils (%) (Auto) 0.1 % Neutrophils # (Auto) 15.64 K/uL (1.4-6.5) Lymphocytes # (Auto) 0.76 K/uL (1.2-3.4) Monocytes # (Auto) 0.55 K/uL (0.11-0.59) Eosinophils # (Auto) 0.01 K/uL (0-0.5) Basophils # (Auto) 0.02 K/uL (0-0.2) RDW Standard Deviation 50.5 fL (36.4-46.3) RDW Coefficient of Variation 16.5 % (11.5-14.5) Immature Granulocyte % (Auto) 0.4 % Immature Granulocyte # (Auto) 0.07 K/uL (0.00-0.02) Test 10/03/17 05:25 10/03/17 10:41 Bedside Glucose 161 mg/dl (70-90) Random Vancomycin Level 15.8 mcg/ml Assessment & Plan Assessment * 57 yo F remains in ICU with sepsis 2nd cellulitis vs. other. * Improving per linux administrator progress note today - possible downgrade from ICU status * Antibiotics * Day 3 of Zosyn, vancomycin, doxycycline * Cultures * GPC x2 isolated from blood cultures * Staph species isolated from urine culture (note: Staph in urine can sometimes occur 2nd bloodstream infection seeding urine as compared to typical urine infection causing blood stream infection. Thus, Staph from urine may not be *source* of infection but rather a consequence of Staph bacteremia from other source) * Positive MRSA nasal swab * Renal * SCr improving - trended down from 1.6 to 1.4 mg/dL over 24 hours - unknown baseline but has hx of CKD III Vancomycin * Goal trough 15-20 mcg/mL * Random level ordered this afternoon was therapeutic at 15.8 mcg/mL * This was ordered 10 hours after a dose of 2250 mg of vancomycin * This level trended up from previous random level of 14.1 mcg/mL * OK to schedule vancomycin at this time 2nd improving renal function * Would anticipate that continued dosing of vancomycin 2250 mg IV q10h would likely cause a significant increase in trough level (2nd above) and also 2nd anticipated accumulation 2nd BMI - will dose slightly less aggressively to help maintain trough (or only have a modest increase in trough level) * Will check early trough (prior to 3rd dose of current regimen) 2nd changing renal function and severity of illness Plan * Vancomycin 2000 mg IV q10h * Trough 10/04 @ 0730 Pharmacy will continue to follow and will adjust dose/frequency as necessary. Thank you
[2017-10-03] MEDS ORDERED: SENNA 8.6 MG TAB PO ONE (13:45)
[2017-10-03] MEDS ORDERED: MAGNESIUM HYDROXIDE SUSP 30 ML UDC PO ONE (13:45)
--- NOTE | 2017-10-03 13:58 | Progress Note ---
Subjective Date of Service: October 03, 2017. Subjective Pt evaluation today including: conversation w/ patient Pt feels her R LE has improved in redness, swelling, and pain. She notes that she is very constipated. No SOB but she is still on O2. Pt states no further headache, n/v. She notes that "something was put on my CPAP and it made me sick ". She states some sort of adapter was put on it since she was admitted and she feels that it what made her feel so sick last night. ICU nursing noted AM bowel movement was small and hard. Floor nursing noted same with a smear of blood noted as well. Pt denies fever, chest pain, abd pain. Problem List Medical Problems: (1) Status post CVA Status: Acute Review of Systems All Other Systems: Reviewed and Negative Objective Vital Signs Date Time Temp Pulse Resp B/P (MAP) Pulse Ox O2 Delivery O2 Flow Rate FiO2 10/03/17 11:00 Nasal Cannula 2.0 10/03/17 10:56 36.9 90 20 116/67 (83) 99 Room Air 10/03/17 08:50 37.4 92 21 96 2.0 10/03/17 08:00 96 Nasal Cannula 2.0 10/03/17 08:00 37.4 92 21 133/76 (95) 96 Nasal Cannula 2.0 10/03/17 06:00 37.5 95 24 134/75 (94) 96 10/03/17 05:01 37.6 96 20 126/74 (91) 90 10/03/17 05:00 37.6 95 22 154/68 (96) 91 10/03/17 04:44 96 Nasal Cannula 2.0 10/03/17 04:08 37.9 95 26 130/82 (98) 93 10/03/17 04:06 95 13 128/77 (94) 93 10/03/17 03:01 37.5 90 21 88/71 (77) 92 10/03/17 03:00 37.5 89 28 138/91 (107) 93 10/03/17 02:00 37.6 89 24 120/69 (86) 92 10/03/17 01:01 37.8 90 21 120/64 (82) 92 10/03/17 00:01 38.2 93 24 113/99 (104) 90 5/20/18 00:00 96 Nasal Cannula 2.0 10/02/17 23:02 38.8 95 22 90/62 (71) 93 10/02/17 23:00 38.8 95 27 92/68 (76) 93 10/02/17 22:01 38.9 98 20 128/71 (90) 93 10/02/17 22:00 38.9 98 22 111/65 (80) 93 10/02/17 21:01 39.0 101 27 145/95 (112) 94 10/02/17 21:00 39.0 102 17 131/85 (100) 94 10/02/17 20:35 99 18 96 Nasal Cannula 2.0 10/02/17 20:01 39.0 98 28 95/56 (69) 96 10/02/17 20:00 39.0 99 23 105/69 (81) 96 10/02/17 20:00 96 Nasal Cannula 2.0 10/02/17 19:02 38.6 95 23 91/76 (81) 98 10/02/17 19:00 38.6 95 18 140/68 (92) 96 10/02/17 18:00 38.1 90 19 133/63 (86) 94 Nasal Cannula 2.0 10/02/17 16:00 Nasal Cannula 2.0 10/02/17 16:00 37.9 87 25 107/52 (70) 96 10/02/17 15:00 38.6 88 19 95/55 (68) 97 Nasal Cannula 2.0 10/02/17 14:00 38.9 92 24 127/61 (83) 96 Nasal Cannula 2.0 Physical Exam Comments: General Appearance: no apparent distress, + obese Eyes: normal inspection, sclerae normal Respiratory/Chest: normal breath sounds, no respiratory distress Cardiovascular: regular rate, rhythm, no edema Abdomen: non tender, soft Extremities: non-tender, + swelling-improved Neurologic/Psychiatric: alert, normal mood/affect, oriented x 3 Skin: warm/dry, + pertinent finding (LLE redness improved) Laboratory Results Last 24 Hours Test 10/02/17 18:13 10/02/17 22:05 10/03/17 04:19 10/03/17 05:13 Bedside Glucose 104 mg/dl Random Vancomycin Level 14.1 mcg/ml Sodium Level 138 mmol/L Potassium Level 3.6 mmol/L Chloride Level 105 mmol/L Carbon Dioxide Level 24 mmol/L Anion Gap 9.0 mmol/L Blood Urea Nitrogen 16 mg/dl Creatinine 1.38 mg/dl Est Creatinine Clear Calc Drug Dose 85.8 ml/min Estimated GFR () 49.8 Estimated GFR (Non- 42.9 BUN/Creatinine Ratio 11.4 Random Glucose 151 mg/dl Lactic Acid Level 2.5 mmol/L Calcium Level 7.5 mg/dl Phosphorus Level 2.6 mg/dl Magnesium Level 2.1 mg/dl Total Bilirubin 0.8 mg/dl Direct Bilirubin 0.3 mg/dl Aspartate Amino Transf (AST/SGOT) 47 U/L Alanine Aminotransferase (ALT/SGPT) 31 U/L Alkaline Phosphatase 87 U/L Total Protein 6.2 gm/dl Albumin 2.2 gm/dl Procalcitonin 47.39 ng/ml White Blood Count 17.05 K/uL Red Blood Count 3.78 M/uL Hemoglobin 10.3 g/dL Hematocrit 31.5 % Mean Corpuscular Volume 83.3 fL Mean Corpuscular Hemoglobin 27.2 pg Mean Corpuscular Hemoglobin Concent 32.7 g/dl Platelet Count 159 K/uL Mean Platelet Volume 9.3 fL Neutrophils (%) (Auto) 91.7 % Lymphocytes (%) (Auto) 4.5 % Monocytes (%) (Auto) 3.2 % Eosinophils (%) (Auto) 0.1 % Basophils (%) (Auto) 0.1 % Neutrophils # (Auto) 15.64 K/uL Lymphocytes # (Auto) 0.76 K/uL Monocytes # (Auto) 0.55 K/uL Eosinophils # (Auto) 0.01 K/uL Basophils # (Auto) 0.02 K/uL RDW Standard Deviation 50.5 fL RDW Coefficient of Variation 16.5 % Immature Granulocyte % (Auto) 0.4 % Immature Granulocyte # (Auto) 0.07 K/uL Test 10/03/17 05:25 10/03/17 10:41 Bedside Glucose 161 mg/dl Random Vancomycin Level 15.8 mcg/ml Assessment and Plan 57yo C female with multiple medical comorbidities presenting with sepsis (Tc= 39.5, BB=041, RR=26, WBC=12.42 with left shift), elevated lactate=3.5 Sepsis - as above, patient 4/4 SIRS, qSOFA score of 2, elevated lactate. Source unclear to include urine, blood, skin (LLE cellulitis). UA +. CXR does not suggest acute PNA or pulmonary source. Influenza negative. -Check urine culture, blood cultures x 2 sets -Repeat lactate is trending down -Vancomycin and Zosyn for empiric antibiotic coverage LLE cellulitis - no evidence of deeper soft tissue infection -LLE duplex US neg for DVT -Vancomycin and Zosyn as above -Wound care nursing evaluation Respiratory distress - Patient with history of asthma, no prior intubations. On arrival SOB, mildly hypoxic per ABG. -Supplemental O2 as needed to maintain SaO2 > 94% -Albuterol PRN -Continue Advair and Singulair -Check 2D echocardiogram -Repeat CXR neg HypoMg, hypoPhos: replace and monitor Constipation: added MOM, senna Prior CVA s/p tPA - patient with no focal deficits, CT head negative -Continue ASA -Continue Plavix -Continue Statin Hypertension - patine presently mildly hypertensive -Hold antihypertensive agents - Amiloride, Bisoprolol and Bumex -Continue to monitor BP, can provide IV PRN agents if SBP markedly elevated Anxiety/Depression - Continue Wellbutrin, Buspirone. Resume Trazodone, Seroquel and Nortriptyline due to sedating effects Gout - stable -Continue Allopurinol Chronic pain/Neuropathy - continue Cymbalta and Neurontin. Hold Robaxin and Afton due to sedating effects. GERD - continue Reglan, Protonix IV CKD - Monitor I/O, renal panel, electrolytes Cr appears at baseline 1.6 F/E/N - NSS x 1 liter bolus followed by 125mL/hr x 3 liters. Monitor electrolytes and replete as needed. NPO for now, may advance diet when patient' s mental status improves and no longer requiring NIPPV Ppx - Lovenox, Protonix Code - Full per discussion with family L art line placed 10/01
[2017-10-03] MEDS ORDERED: ALBUTEROL HFA 8 GM INHALER INH PRN (14:00)
[2017-10-03] MEDS ORDERED: NURSING VERBAL MED ORDER ONE (18:45)
[2017-10-03] MEDS ORDERED: HYDROCODONE/ACETAMI 10/325 TAB PO PRN (19:00)
[2017-10-03] MEDS ORDERED: ACETAMINOPHEN 325 MG TAB PO PRN (19:00)
[2017-10-03] MEDS: ENOXAPARIN 40 MG/0.4 ML SYR SQ SCH (20:42)
[2017-10-03] MEDS: NORTRIPTYLINE HCL 25 MG CAP PO SCH (20:43)
[2017-10-03] MEDS: QUETIAPINE FUMARATE 200 MG TAB PO SCH (20:44)
[2017-10-03] MEDS: TRAZODONE HCL 50 MG TAB PO SCH (21:32)
[2017-10-03] MEDS: VANCOMYCIN IV 2,000 MG in SODIUM CHLORIDE 0.9% 500ML 500 ML IV SCH (21:34)
[2017-10-04 00:09] VITALS: BP 113/74; PULSE 92; TEMP 36.9; O2SAT 92
[2017-10-04] MEDS: PIPERACILL/TAZOBAC IV 4.5 GM in D5W 100 ML IV SCH ×2 (00:33→08:10)
[2017-10-04] MEDS: ONDANSETRON INJ 2 MG/ML 2 ML VIAL IV. SCH ×5 (05:52→23:59)
[2017-10-04] MEDS ORDERED: NURSING VERBAL MED ORDER ONE ×3 (06:15→16:15)
--- NOTE | 2017-10-04 06:41 | Progress Note ---
Post ICU Progress Note Date & Time October 04, 2017 at 06:36 Vital Signs Vital Signs Past 12 Hours Date Time Temp Pulse Resp B/P (MAP) Pulse Ox O2 Delivery O2 Flow Rate FiO2 10/04/17 00:09 36.9 92 20 113/74 (87) 92 Room Air 10/04/17 00:00 Room Air Notes Mental Status: alert / awake Nausea / Vomiting: adequately controlled Pain: adequately controlled Airway Patency, RR, SpO2: see Notes BP & HR: stable & adequate Patient is a 57-year-old female initially admitted to the ICU for sepsis likely from her LEFT lower extremity source. In addition, she had had hypoxic respiratory failure for which she recovered well on BiPAP. She received broad- spectrum antibiotics and fluid boluses with good response. She never required pressors. She remained well and was eventually downgraded from ICU status. On evaluation this morning, the patient is sleeping. I did awaken the patient and she did not have her CPAP or oxygen in place. When questioned, she reports that her CPAP mask was dirty and she did not wish to clean it. I educated the patient on the need for continued use of her CPAP while sleeping as she does drop her oxygen saturations precipitously while sleeping. In addition, I did discuss this with nursing staff on the need to encourage CPAP at night. Consider outpatient follow up in 1 to 2 weeks with: PCP Repeat imaging needed: None at this time. Follow up cultures: Would recommend repeat set of blood cultures. Reviewed progress notes, labs, and inpatient medication list Continue current management Additional recommendations: As discussed above, please encourage patient to continue to utilize home CPAP settings while sleeping. Otherwise, she shows continued improvement. Thank you for allowing us to participate in the care of this patient. At this time, Critical Care Services will sign off on this case. Please feel free to reconsult as needed.
[2017-10-04] MEDS ORDERED: VANCOMYCIN TROUGH ONE (07:30)
[2017-10-04 07:37] LABS: BASO % 0.2 %; BASO ABS # 0.02 K/uL (0-0.2); EOS % 1.7 %; HEMOGLOBIN 10.6 g/dL (12.0-16.0); IG# 0.01 K/uL (0.00-0.02); LYMPH % 13.6 %; LYMPH ABS # 1.61 K/uL (1.2-3.4); MEAN CORPUSCULAR HEMOGLOBIN 27.8 pg (25-34); MEAN CORPUSCULAR HGB CONC 33.1 g/dl (32-36); MEAN PLATELET VOLUME 9.5 fL (7.4-10.4); MONO % 3.9 %; MONO ABS # 0.46 K/uL (0.11-0.59); NEUT % 80.5 %; NEUT ABS # 9.58 K/uL (1.4-6.5); PLATELET COUNT 163 K/uL (130-400); RED CELL DISTRIBUTION WIDTH CV 16.5 % (11.5-14.5); RED CELL DISTRIBUTION WIDTH SD 50.5 fL (36.4-46.3); WHITE BLOOD COUNT 11.88 K/uL (4.8-10.8)
[2017-10-04 07:49] VITALS: BP 129/81; PULSE 101; TEMP 36.7; O2SAT 90
[2017-10-04 08:05] LABS: CALCIUM 7.9 mg/dl (8.5-10.1); CREATININE 1.05 mg/dl (0.60-1.20); POTASSIUM 3.8 mmol/L (3.5-5.1)
[2017-10-04] MEDS: VANCOMYCIN IV 2,000 MG in SODIUM CHLORIDE 0.9% 500ML 500 ML IV SCH (08:10)
[2017-10-04] MEDS: FLUTICASONE/SALMETEROL 250/50 (ADVAIR) 14 PUFF/1 INHALER INH SCH ×2 (08:11→21:05)
[2017-10-04] MEDS: FAMOTIDINE 20 MG TAB PO SCH (08:11)
[2017-10-04] MEDS: MAGNESIUM HYDROXIDE SUSP 30 ML UDC PO SCH (08:11)
[2017-10-04] MEDS: ATORVASTATIN 40 MG TAB PO SCH (08:12)
[2017-10-04] MEDS: CLOPIDOGREL BISULFATE 75 MG TAB PO SCH (08:12)
[2017-10-04] MEDS: ALLOPURINOL 100 MG TAB PO SCH ×2 (08:12→21:17)
[2017-10-04] MEDS: DULOXETINE HCL 60 MG CAP PO SCH (08:12)
[2017-10-04] MEDS: BusPIRone 15 MG TAB PO SCH ×3 (08:12→21:13)
[2017-10-04] MEDS: ASPIRIN 81 MG ECTAB PO SCH (08:12)
[2017-10-04] MEDS: SENNA 8.6 MG TAB PO SCH (08:12)
[2017-10-04] MEDS: BuPROPion XL 300 MG TABCR PO SCH (08:12)
[2017-10-04] MEDS: MULTIVITAMIN TAB PO SCH (08:12)
[2017-10-04] MEDS ORDERED: MONTELUKAST SOD 10 MG TAB PO SCH (09:00)
--- NOTE | 2017-10-04 11:00 | Clinical Documentation Query ---
QUERY 1 OF [address] DE LA CRUZ, In your clinical opinion is this patient being managed for: ( x ) Metabolic encephalopathy ( ) Not Agree ( ) Other explanation of clinical findings (No explanation is considered a No Response) ( ) Unable to determine ( ) Need to Discuss (Phone CDS or qliq) (No discussion is considered a No Response) The medical record reflects the following clinical findings, treatment, and risk factors. Clinical Indicators: 57 yo female presenting with sepsis/LLE cellulitis. Per H/P pt became " very confused and disoriented" prior to ER presentation. H/P indicates "wakes with verbal stimuli, follows some commands, somnolent and confused". CT head negative for acute findings. O2 sat 97% on BIPAP, RR 32, HR 114 Treatment: IV fluids including boluses, IV tylenol, IV vancomycin and IV zosyn, follow lactic acid, ICU monitoring, orourke cultures, Risk Factors: age, sepsis, acute respiratory failure, LE cellulitis, UTI QUERY 2 OF 4 In your clinical opinion is this patient being managed for: ( x ) Acute hypoxic respiratory failure ( ) Not Agree ( ) Other explanation of clinical findings (No explanation is considered a No Response) ( ) Unable to determine ( ) Need to Discuss (Phone CDS or qliq) (No discussion is considered a No Response) The medical record reflects the following clinical findings, treatment, and risk factors. Clinical Indicators: Described in H/P as having increased work of breathing, "in respiratory distress". Treatment: BIPAP/O2 support, ABG, IV fluids with boluses, IV vancomycin, IV zosyn, repeat CXR Risk Factors: sepsis, CKD stage III, morbid obesity QUERY 3 OF 4 In your clinical opinion is this patient being managed for: (x ) Urinary tract infection ( ) Not Agree ( ) Other explanation of clinical findings (No explanation is considered a No Response) ( ) Unable to determine ( ) Need to Discuss (Phone CDS or qliq) (No discussion is considered a No Response) The medical record reflects the following clinical findings, treatment, and risk factors. Clinical Indicators: UA cx with coag neg staph, not saprophytic Treatment: UA cx, IV vancomycin Risk Factors: age, gender, morbid obesity QUERY 4 OF 4 In your clinical opinion is this patient being managed for: ( ) Septic shock ( x ) Not Agree - although BP was low it was transient and she never required pressor agents; I have documented that this was severe sepsis/septicemia ( ) Other explanation of clinical findings (No explanation is considered a No Response) ( ) Unable to determine ( ) Need to Discuss (Phone CDS or qliq) (No discussion is considered a No Response) The medical record reflects the following clinical findings, treatment, and risk factors. Clinical Indicators: VS 39.5,114, 26 initially BP 162/68 however within the first 6 hours of treatment, BP down to substantially to 90/54 requiring IV fluid boluses. Mental status somnolent, confused, difficulty following commands Treatment: ICU, IV fluid boluses, orourke cultures, IV vancomycin, IV zosyn, repeat lactic acid Risk Factors: sepsis, acute respiratory failure, cellulitis, UTI Please clarify and document your clinical opinion in the progress notes and discharge summary. Terms such as "probable", "suspected", "likely", "questionable", "possible", or "still to be ruled out" are acceptable. IF IN AGREEMENT, YOU MUST DOCUMENT ABOVE DIAGNOSTIC STATEMENT IN DAILY PROGRESS NOTES AND DISCHARGE SUMMARY. This document is not part of the patient's record. Thank You, Alexia West, ILANA [phone]
[2017-10-04] MEDS: DOXYCYCLINE IV 100 MG in DEXTROSE 5% 100ML 100 ML IV SCH (11:09)
[2017-10-04] MEDS: PANTOprazole INJ 40 MG in SYRINGE 0 ML IV SCH (11:09)
[2017-10-04] MEDS: NORMOSOL R 1,000 ML IV SCH (13:52)
[2017-10-04] MEDS ORDERED: BUMETANIDE IV 2 MG in SYRINGE 0 ML IV ONE (14:45)
[2017-10-04 15:42] VITALS: BP 136/85; PULSE 92; TEMP 36.4; O2SAT 91
[2017-10-04] MEDS: AMPICILLIN/SULBACTAM SOD INJ 3,000 MG in SODIUM CHLORIDE 0.9% 100ML 100 ML IV SCH ×2 (15:49→21:06)
[2017-10-04] MEDS ORDERED: HYDROCODONE/ACETAMI 10/325 TAB PO ONE (16:30)
[2017-10-04] MEDS: LACTOBACILLUS ACIDOPHILUS (FLORANEX) TAB PO SCH (18:26)
[2017-10-04] MEDS ORDERED: HYDROCODONE/ACETAMI 10/325 TAB PO SCH (19:00)
[2017-10-04] MEDS: KETOROLAC TROMETHAMINE 30 MG/ML VIAL IV PRN (19:08)
--- NOTE | 2017-10-04 20:36 | Progress Note ---
Subjective Date of Service: October 04, 2017. Subjective Pt evaluation today including: conversation w/ patient, physical exam, chart review, lab review, review of studies (CT chest, abd, pelvis ), review of inpatient medication list Pain: back (chronic), LLE PO Intake: improving Voiding: no voiding problems pt thinks the LLE (cellulitis) looks better she has dyspnea with minimal activity (moving in the bed causes dyspnea) asks that her hydrocodone 10mg tabs be scheduled TID as she takes it TID scheduled at home "for years" reports her chronic back pain is no different than baseline Problem List Medical Problems: (1) Status post CVA Status: Acute Review of Systems Constitutional: + fatigue, No fever, No chills Respiratory: + wheezing, + dyspnea on exertion, No dyspnea at rest Cardiac: + edema, No chest pain Abdomen: No pain Objective Vital Signs Date Time Temp Pulse Resp B/P (MAP) Pulse Ox O2 Delivery O2 Flow Rate FiO2 10/04/17 16:00 Room Air 10/04/17 15:42 36.4 92 18 136/85 (102) 91 Room Air 10/04/17 08:30 Room Air 10/04/17 07:49 36.7 101 18 129/81 (97) 90 Room Air 10/04/17 00:09 36.9 92 20 113/74 (87) 92 Room Air 10/04/17 00:00 Room Air Physical Exam General Appearance: + obese ENT: pharynx normal Neck: + JVD Respiratory/Chest: no respiratory distress, no accessory muscle use, + decreased breath sounds (bases) Cardiovascular: regular rate, rhythm, no gallop, no murmur Abdomen: normal bowel sounds, non tender, soft, no organomegaly, + pertinent finding (obese) Extremities: + swelling (severe, 4+, entire LLE; RLE about 1-2+ edema) Neurologic/Psychiatric: alert, oriented x 3 Skin: + pertinent finding (significant cellulitis extending from the left foot superior to the left knee/thigh; the redness stops in a linear fashion prior to the left groin; erythema is most intense and most warm medially and anteriorly; the redness is less laterally and posteriorly; no palpable crepitus or abscess of any location; mild tenderness along the length of the LLE ) Laboratory Results Last 24 Hours Test 5/21/18 07:22 White Blood Count 11.88 K/uL Red Blood Count 3.81 M/uL Hemoglobin 10.6 g/dL Hematocrit 32.0 % Mean Corpuscular Volume 84.0 fL Mean Corpuscular Hemoglobin 27.8 pg Mean Corpuscular Hemoglobin Concent 33.1 g/dl Platelet Count 163 K/uL Mean Platelet Volume 9.5 fL Neutrophils (%) (Auto) 80.5 % Lymphocytes (%) (Auto) 13.6 % Monocytes (%) (Auto) 3.9 % Eosinophils (%) (Auto) 1.7 % Basophils (%) (Auto) 0.2 % Neutrophils # (Auto) 9.58 K/uL Lymphocytes # (Auto) 1.61 K/uL Monocytes # (Auto) 0.46 K/uL Eosinophils # (Auto) 0.20 K/uL Basophils # (Auto) 0.02 K/uL RDW Standard Deviation 50.5 fL RDW Coefficient of Variation 16.5 % Immature Granulocyte % (Auto) 0.1 % Immature Granulocyte # (Auto) 0.01 K/uL Sodium Level 140 mmol/L Potassium Level 3.8 mmol/L Chloride Level 105 mmol/L Carbon Dioxide Level 29 mmol/L Anion Gap 5.0 mmol/L Blood Urea Nitrogen 12 mg/dl Creatinine 1.05 mg/dl Est Creatinine Clear Calc Drug Dose 112.8 ml/min Estimated GFR () 69.2 Estimated GFR (Non- 59.7 BUN/Creatinine Ratio 11.0 Random Glucose 86 mg/dl Calcium Level 7.9 mg/dl Vancomycin Level Trough 18.7 mcg/ml Assessment and Plan 57yo female - 1. severe sepsis with septicemia 2nd to group C strep from her severe LLE cellulitis - clinically improving based on her account as well as based on afebrile status and normalizing WBC count. Plan - * can narrow antibiotics from zosyn to unasyn to cover the bacteremia & cellulitis * can d/c vanco, change to doxy (this will cover the leg and urine) * repeat blood cx's in the AM to ensure sterility of blood * consider echo to r/o SBE although echo may be limited due to body habitus * consider ID consultation 2. acute hypoxic respiratory failure - resolved; 2nd to #1 and asthma? 3. suspected acute diastolic CHF - has had copious hydration during her stay. Stop fluids, bumex 2mg IV x 1. Echo. 4. acute kidney injury 2nd to #1 - resolved. 5. hypomagnesemia, hypophosphatemia - resolved. 6. DVT proph - lovenox 40mg daily. 7. morbid obesity with BMI 73 - noted. 8. asthma - w/o exacerbation at this time; continue home inhalers. 9. h/o gout - noted; no exacerbation at this time. 10. h/o stroke in July 2017 - cont asa, plavix for secondary stroke prevention. 11. HTN - controlled. 12. depression w/ anxiety - continue all outpatient medications. 13. chronic pain syndrome 2nd to chronic low back pain - restart hydrocodone/ tylenol 10's, 1 po TID, per her home regimen. 14. left ovarian cyst - she will need coil repair technician f/u after d/c. 15. metabolic encephalopathy 2nd to #1 - resolved. 16. coag neg staph UTI - has received several days of vancomcyin; can change to doxycycline to complete course. This will also cover the LLE cellulitis. PT, OT consults Continued [facility] stay due to: ambulation difficulties, multiple IV medications needed Discharge planning: uncertain
[2017-10-04] MEDS: TRAZODONE HCL 50 MG TAB PO SCH (21:13)
[2017-10-04] MEDS: GABAPENTIN 600 MG TAB PO SCH (21:14)
[2017-10-04] MEDS: HYDROCODONE/ACETAMI 10/325 TAB PO SCH (21:15)
[2017-10-04] MEDS: NORTRIPTYLINE HCL 25 MG CAP PO SCH (21:15)
[2017-10-04] MEDS: MONTELUKAST SOD 10 MG TAB PO SCH (21:16)
[2017-10-04] MEDS: QUETIAPINE FUMARATE 200 MG TAB PO SCH (21:16)
[2017-10-04] MEDS: DOXYCYCLINE HYCLATE 100 MG CAP PO SCH (21:17)
[2017-10-04] MEDS: ENOXAPARIN 40 MG/0.4 ML SYR SQ SCH (21:18)
[2017-10-04 23:41] VITALS: BP 109/70; PULSE 87; TEMP 36.6; O2SAT 92
[2017-10-05] MEDS: AMPICILLIN/SULBACTAM SOD INJ 3,000 MG in SODIUM CHLORIDE 0.9% 100ML 100 ML IV SCH ×4 (04:26→20:45)
[2017-10-05] MEDS: ONDANSETRON INJ 2 MG/ML 2 ML VIAL IV. SCH ×4 (06:00→23:48)
[2017-10-05] MEDS ORDERED: PERFLUTREN LIPID MICROSPHERE (DEFINITY) IV ONE (06:54)
[2017-10-05 07:22] VITALS: BP 107/71; PULSE 87; TEMP 36.6; O2SAT 92
[2017-10-05 07:22] LABS: BASO % 0.4 %; BASO ABS # 0.03 K/uL (0-0.2); EOS % 4.4 %; EOS ABS # 0.31 K/uL (0-0.5); HEMATOCRIT 30.9 % (37-47); HEMOGLOBIN 10.1 g/dL (12.0-16.0); IG# 0.03 K/uL (0.00-0.02); LYMPH % 22.9 %; MEAN CELL VOLUME 84.4 fL (80-100); MEAN CORPUSCULAR HEMOGLOBIN 27.6 pg (25-34); MEAN CORPUSCULAR HGB CONC 32.7 g/dl (32-36); MEAN PLATELET VOLUME 9.6 fL (7.4-10.4); MONO % 8.9 %; MONO ABS # 0.62 K/uL (0.11-0.59); NEUT ABS # 4.41 K/uL (1.4-6.5); PLATELET COUNT 162 K/uL (130-400); RED CELL DISTRIBUTION WIDTH CV 16.2 % (11.5-14.5); RED CELL DISTRIBUTION WIDTH SD 49.7 fL (36.4-46.3)
[2017-10-05 07:53] LABS: CALCIUM 8.1 mg/dl (8.5-10.1); CREATININE 1.06 mg/dl (0.60-1.20); POTASSIUM 3.5 mmol/L (3.5-5.1)
[2017-10-05] MEDS: MAGNESIUM HYDROXIDE SUSP 30 ML UDC PO SCH (08:09)
[2017-10-05] MEDS: FLUTICASONE/SALMETEROL 250/50 (ADVAIR) 14 PUFF/1 INHALER INH SCH ×2 (08:09→20:34)
[2017-10-05] MEDS: DOXYCYCLINE HYCLATE 100 MG CAP PO SCH ×2 (08:10→20:36)
[2017-10-05] MEDS: BuPROPion XL 300 MG TABCR PO SCH (08:10)
[2017-10-05] MEDS: HYDROCODONE/ACETAMI 10/325 TAB PO SCH ×3 (08:10→20:45)
[2017-10-05] MEDS: SENNA 8.6 MG TAB PO SCH (08:10)
[2017-10-05] MEDS: ALLOPURINOL 100 MG TAB PO SCH ×2 (08:10→20:37)
[2017-10-05] MEDS: CLOPIDOGREL BISULFATE 75 MG TAB PO SCH (08:11)
[2017-10-05] MEDS: ASPIRIN 81 MG ECTAB PO SCH (08:11)
[2017-10-05] MEDS: MULTIVITAMIN TAB PO SCH (08:11)
[2017-10-05] MEDS: FAMOTIDINE 20 MG TAB PO SCH (08:11)
[2017-10-05] MEDS: LACTOBACILLUS ACIDOPHILUS (FLORANEX) TAB PO SCH ×3 (08:11→16:37)
[2017-10-05] MEDS: BusPIRone 15 MG TAB PO SCH ×3 (08:11→20:36)
[2017-10-05] MEDS: DULOXETINE HCL 60 MG CAP PO SCH (08:11)
[2017-10-05] MEDS: ATORVASTATIN 40 MG TAB PO SCH (08:11)
--- NOTE | 2017-10-05 09:32 | ECHOCARDIOGRAM REPORT ---
*NOTICE TO RECEIVING LIBERTARIAN AGENCY This information is strictly Confidential and protected under [place] law. [place] law prohibits you from making any further disclosure of this information unless further disclosure is expressly permitted by the written consent of the person to whom it pertains or is authorized by law. A general authorization for the release of medical or other information is not sufficient for this purpose. Hospital accepts no responsibility if the information is made available to any other person, INCLUDING THE PATIENT. Interpretation Summary * Name: CELIO ARGUELLES Study Date: 10/05/2017 06:24 AM BP: 109/70 mmHg * Patient Location: .MS2W\S\W256\S\2 HR: 83 * : 1960 (M/d/yyyy) Gender: Female Height: 65 in * Age: 57 yrs Ethnicity: [place] Weight: 454 lb * Ordering Physician: Candido Bethea * Referring Physician: Self, Referred * Performed By: Felipa Dukes RDCS * * Reason For Study: Endocarditis * BSA: 2.8 m2 * -- Conclusions -- * Left ventricular systolic function is normal. * No regional wall motion abnormalities noted. * Ejection Fraction = 60-65%. * There is mild tricuspid regurgitation. * No obvious left sided valvular pathology. Procedure Details * A complete two-dimensional transthoracic echocardiogram was performed (2D, M-mode, Doppler and color flow Doppler). * The study was technically difficult. * The study was technically difficult, but visualization was adequate with the administration of Definity ultrasound contrast. * There were technical limitations due to patient'sbody habitus * A contrast injection of Definity was performed to improve assessment of LV function. * Contrast was injected into an intravenous site in the right arm. * One vial of Definity ultrasound contrast was diluted in normal saline to a total volume of 10 ml. A total of '2' ml of solution was administered during imaging. * Lot # [id number] of Definity utilized for procedure. * Expiration date 1APR19. * The attending nurse who injected the contrast agent was ILANA Carey. Left Ventricle * The left ventricle is normal in size. * There is normal left ventricular wall thickness. * Ejection Fraction = 60-65%. * Left ventricular systolic function is normal. * No regional wall motion abnormalities noted. Right Ventricle * The right ventricle is not well visualized. * The right ventricular systolic function is normal as assessed by tricuspid annular plane systolic excursion (TAPSE) (normal >1.5 cm). Atria * The left atrium is mildly dilated. * Right atrium not well visualized. * There is no evidence of atrial septal defect, but resolution does not allow assessment for a patent foramen ovale. Mitral Valve * The mitral valve anatomy is normal. * There is no mitral valve stenosis. * Significant mitral regurgitation is absent. Tricuspid Valve * The tricuspid valve is not well visualized, but is grossly normal. * There is no tricuspid stenosis. * There is mild tricuspid regurgitation. Aortic Valve * The aortic valve is trileaflet. * The aortic valve opens well. * No hemodynamically significant valvular aortic stenosis. * There is no significant aortic regurgitation. Pulmonic Valve * The pulmonic valve is not well visualized. Great Vessels * The aortic root is normal size. * The pulmonary is not well visualized. Pericardium/Pleural * There is no pericardial effusion. Great Vessels * Normal inferior vena cava size and collapsability with sniff indicates a normal right atrial pressure of 3 mmHg MMode 2D Measurements and Calculations IVSd 1.1 cm IVSs 2.2 cm LVIDd 6.2 cm LVIDs 4.3 cm LVPWd 1.1 cm LVPWs 1.6 cm IVS/LVPW 1.0 FS 31.1 % EDV(Teich) 194.9 ml ESV(Teich) 82.2 ml EF(Teich) 57.8 % EDV(cubed) 239.8 ml ESV(cubed) 78.5 ml EF(cubed) 67.3 % % IVS thick 99.3 % % LVPW thick 48.1 % LV mass(C)d 289.3 grams LV mass(C)dI 103.2 grams/m\S\2 LV mass(C)s 366.7 grams LV mass(C)sI 130.9 grams/m\S\2 SV(Teich) 112.7 ml SI(Teich) 40.2 ml/m\S\2 SV(cubed) 161.3 ml SI(cubed) 57.6 ml/m\S\2 Ao root diam 3.4 cm Ao root area 9.2 cm\S\2 ACS 2.7 cm LA dimension 4.1 cm LA/Ao 1.2 LVAd ap4 43.7 cm\S\2 LVLd ap4 9.1 cm EDV(MOD-sp4) 180.8 ml EDV(sp4-el) 177.4 ml LVAs ap4 25.4 cm\S\2 LVLs ap4 7.7 cm ESV(MOD-sp4) 76.4 ml ESV(sp4-el) 70.4 ml EF(MOD-sp4) 57.7 % EF(sp4-el) 60.3 % LVAd ap2 30.2 cm\S\2 LVLd ap2 8.3 cm EDV(MOD-sp2) 92.7 ml EDV(sp2-el) 93.1 ml LVAs ap2 17.3 cm\S\2 LVLs ap2 7.5 cm ESV(MOD-sp2) 36.5 ml ESV(sp2-el) 34.2 ml EF(MOD-sp2) 60.7 % EF(sp2-el) 63.3 % LVLd %diff -10.05 % EDV(MOD-bp) 133.9 ml LVLs %diff -3.93 % ESV(MOD-bp) 53.8 ml EF(MOD-bp) 59.8 % SV(MOD-sp4) 104.4 ml SI(MOD-sp4) 37.3 ml/m\S\2 SV(MOD-sp2) 56.3 ml SI(MOD-sp2) 20.1 ml/m\S\2 SV(MOD-bp) 80.1 ml SI(MOD-bp) 28.6 ml/m\S\2 SV(sp4-el) 106.9 ml SI(sp4-el) 38.2 ml/m\S\2 SV(sp2-el) 58.9 ml SI(sp2-el) 21.0 ml/m\S\2 Doppler Measurements and Calculations MV E max sujata 83.3 cm/sec MV A max sujata 54.0 cm/sec MV E/A 1.5 MV dec time 0.19 sec Ao V2 max 89.1 cm/sec Ao max PG 3.2 mmHg Ao max PG (full) -0.84 mmHg LV V1 max PG 4.0 mmHg LV V1 max 100.2 cm/sec PA V2 max 85.7 cm/sec PA max PG 3.0 mmHg TR max sujata 214.2 cm/sec
[2017-10-05] MEDS ORDERED: POTASSIUM CHLORIDE 20 MEQ TABCR PO ONE (10:30)
[2017-10-05] MEDS ORDERED: BUMETANIDE IV 2 MG in SYRINGE 0 ML IV ONE (10:30)
[2017-10-05 11:00] VITALS: O2SAT 85
[2017-10-05 16:12] VITALS: BP 129/86; PULSE 88; TEMP 36.4; O2SAT 94
--- NOTE | 2017-10-05 16:19 | DIAGNOSTIC IMAGING REPORT ---
L LOWER EXTREMITY WITHOUT HISTORY: 57 years-old Female severe cellulitis of entire left leg; eval for any abscess, etc acute pain and swelling of the left lower extremity with cellulitis COMPARISON: Duplex venous Doppler study 10/01/2017 TECHNIQUE: Multiple axial CT images of the left lower extremity were obtained without the use of IV contrast. Coronal and sagittal reformatted images were obtained from the axial data set and were submitted for review. A dose lowering technique was used consistent with the principals of ALARA. FINDINGS: Limited evaluation of the pelvic structures secondary to patient body habitus with beam hardening artifact. No acute process of the imaged pelvis identified. There is mild to moderate osteoarthritis about the bilateral femoral acetabular joints with chondrocalcinosis. The imaged pelvis appears intact. Bilateral knee arthroplasties are noted without evidence of hardware fracture or loosening. Prior patellar resurfacing. No acute fracture or dislocation is identified. Note is made of an os trigonum. Type I accessory navicular. Mild degenerative changes about the midfoot and hindfoot as well as the first MTP joint. Corticated ossifications within the region of the distal quadriceps tendon are noted measuring up to 8 mm. There is a moderate-sized joint effusion about the knee. There is extensive subcutaneous edema about the lower leg, greatest at the level of the mid calf to the level of the imaged foot. Less extensive subcutaneous edema is noted about the bilateral thighs. Skin thickening about the left calf also noted. There are multiple vascular calcifications about the left calf. No drainable fluid collections identified. There is moderate fatty atrophy involving the gastrocnemius musculature bilaterally, greatest within the medial heads. IMPRESSION: 1. Extensive subcutaneous edema about the left greater than right lower extremities, greatest at the level of the mid left calf extending distally without drainable fluid collection or opaque foreign body identified. Findings suggest cellulitis, venous stasis or lymphedema. 2. Bilateral knee arthroplasties with moderate left knee joint effusion. 3. No acute fracture or dislocation. The above report was generated using voice recognition software. It may contain grammatical, syntax or spelling errors. Electronically signed by: Ortega Todd M.D. 10/05/2017 4:17 PM Dictated Date/Time: 10/05/2017 4:09 PM
[2017-10-05] MEDS: ENOXAPARIN 40 MG/0.4 ML SYR SQ SCH (20:34)
[2017-10-05] MEDS: TRAZODONE HCL 50 MG TAB PO SCH (20:35)
[2017-10-05] MEDS: QUETIAPINE FUMARATE 200 MG TAB PO SCH (20:36)
[2017-10-05] MEDS: GABAPENTIN 600 MG TAB PO SCH (20:37)
[2017-10-05] MEDS: NORTRIPTYLINE HCL 25 MG CAP PO SCH (20:38)
[2017-10-05] MEDS: MONTELUKAST SOD 10 MG TAB PO SCH (20:38)
--- NOTE | 2017-10-05 21:37 | Progress Note ---
Subjective Date of Service: October 05, 2017. Subjective Pt evaluation today including: conversation w/ patient, physical exam, chart review, lab review, review of studies (CT LLE), conversation w/ personal consultant ( orthopedics), review of inpatient medication list Pain: LLE - although it may be modestly improved today PO Intake: improved Voiding: no voiding problems patient reports her breathing is more comfortable w/ less dyspnea today she DOES state she has had left knee swelling and pain beginning about the same time as the LLE cellulitis had knee replacement at [facility] several years ago prior to the LLE cellulitis she had not had pain/swelling in the knee moved bowels today Problem List Medical Problems: (1) Status post CVA Status: Acute Review of Systems Constitutional: No fever, No chills Respiratory: No cough, No sputum, No wheezing, No dyspnea at rest Cardiac: + edema, No chest pain Abdomen: No pain, No nausea, No diarrhea Objective Vital Signs Date Time Temp Pulse Resp B/P (MAP) Pulse Ox O2 Delivery O2 Flow Rate FiO2 10/05/17 20:00 Room Air 10/05/17 16:15 Room Air 10/05/17 16:12 36.4 88 18 129/86 (100) 94 Room Air 10/05/17 11:00 85 10/05/17 08:30 Room Air 10/05/17 07:22 36.6 87 20 107/71 (83) 92 Room Air 10/05/17 00:00 CPAP 10/04/17 23:41 36.6 87 20 109/70 (83) 92 CPAP Physical Exam General Appearance: no apparent distress, + obese ENT: pharynx normal Neck: + JVD (but looks better today) Respiratory/Chest: no respiratory distress, no accessory muscle use, + decreased breath sounds (bases) Cardiovascular: regular rate, rhythm, no gallop, no murmur Abdomen: normal bowel sounds, non tender, soft, no organomegaly Extremities: + pedal edema (1+ RLE), + swelling (severe edema, 3-4+, LLE, from the foot to the groin; edema may be slightly better than yesterday; left calf is markedly swollen and even tense; no obvious abscess ) Neurologic/Psychiatric: alert, oriented x 3 Skin: + pertinent finding (mod-severe erythema extending from just below the inguinal crease/upper thigh on left extending down the leg to the foot; the erythema is not as intensely red as yesterday nor is it as warm; no obvious abscess seen; anterior and medial aspects of the leg are worse than the lateral & posterior aspects of the leg ) Comments: musculo - left knee with TKR scar; there is a joint effusion and mild tenderness of the joint with active ROM Laboratory Results Last 24 Hours Test 10/05/17 06:52 10/05/17 21:02 White Blood Count 7.00 K/uL Red Blood Count 3.66 M/uL Hemoglobin 10.1 g/dL Hematocrit 30.9 % Mean Corpuscular Volume 84.4 fL Mean Corpuscular Hemoglobin 27.6 pg Mean Corpuscular Hemoglobin Concent 32.7 g/dl Platelet Count 162 K/uL Mean Platelet Volume 9.6 fL Neutrophils (%) (Auto) 63.0 % Lymphocytes (%) (Auto) 22.9 % Monocytes (%) (Auto) 8.9 % Eosinophils (%) (Auto) 4.4 % Basophils (%) (Auto) 0.4 % Neutrophils # (Auto) 4.41 K/uL Lymphocytes # (Auto) 1.60 K/uL Monocytes # (Auto) 0.62 K/uL Eosinophils # (Auto) 0.31 K/uL Basophils # (Auto) 0.03 K/uL RDW Standard Deviation 49.7 fL RDW Coefficient of Variation 16.2 % Immature Granulocyte % (Auto) 0.4 % Immature Granulocyte # (Auto) 0.03 K/uL Sodium Level 142 mmol/L Potassium Level 3.5 mmol/L Chloride Level 106 mmol/L Carbon Dioxide Level 31 mmol/L Anion Gap 5.0 mmol/L Blood Urea Nitrogen 12 mg/dl Creatinine 1.06 mg/dl Est Creatinine Clear Calc Drug Dose 111.7 ml/min Estimated GFR () 68.5 Estimated GFR (Non- 59.1 BUN/Creatinine Ratio 11.7 Random Glucose 82 mg/dl Calcium Level 8.1 mg/dl Magnesium Level 2.2 mg/dl Assessment and Plan 57yo female - 1. severe sepsis with septicemia 2nd to group C strep from her severe LLE cellulitis - clinically improving on exam. WBC count has normalized. No fever in 48+ hours. Repeat blood cx's today obtained to ensure sterility. Echo w/o obvious valvular vegetations. * continue unasyn to cover the bacteremia & cellulitis * continue doxy as this will cover the leg and urine * CT leg obtained today to r/o abscess, nec fasc, etc - no evidence of such; but does have left-sided joint effusion (see below) 2. acute hypoxic respiratory failure - resolved; 2nd to #1, ?asthma, and acute diastolic CHF. 3. acute diastolic CHF - repeat bumex 2mg IV x 1 today. Echo with preserved EF. Copious diuresis overnight. 4. acute kidney injury 2nd to #1 - resolved. 5. hypomagnesemia, hypophosphatemia - resolved. 6. DVT proph - lovenox 40mg daily. 7. morbid obesity with BMI 73 - noted. 8. asthma - w/o exacerbation at this time; continue home inhalers. 9. h/o gout - noted; no exacerbation at this time although left knee could theoretically be gouty arthritis - see below. 10. h/o stroke in July 2017 - cont asa, plavix for secondary stroke prevention. 11. HTN - controlled. 12. depression w/ anxiety - continue all outpatient medications. 13. chronic pain syndrome 2nd to chronic low back pain - hydrocodone/tylenol 10 's, 1 po TID, per her home regimen. 14. 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 15. metabolic encephalopathy 2nd to #1 - resolved. 16. coag neg staph UTI - finish doxycycline course. 17. left knee effusion in a previously replaced joint (done at [facility] ) - spoke with Dr. Dickerson from ortho who will consult; will likely need arthrocentesis to r/o septic joint. Could be gouty arthritis as well given her h/o gout. Check knee x-rays. Pain control. PT, OT consults Slowly progressing Continued [facility] stay due to: ambulation difficulties, multiple IV medications needed Discharge planning: uncertain
[2017-10-06 00:04] VITALS: BP 121/77; PULSE 83; TEMP 36.7; O2SAT 90
[2017-10-06] MEDS: AMPICILLIN/SULBACTAM SOD INJ 3,000 MG in SODIUM CHLORIDE 0.9% 100ML 100 ML IV SCH ×4 (02:30→21:21)
[2017-10-06] MEDS: ONDANSETRON INJ 2 MG/ML 2 ML VIAL IV. SCH ×4 (06:10→23:07)
[2017-10-06] MEDS: KETOROLAC TROMETHAMINE 30 MG/ML VIAL IV PRN (06:22)
[2017-10-06 07:10] LABS: CALCIUM 8.4 mg/dl (8.5-10.1); CREATININE 1.02 mg/dl (0.60-1.20); POTASSIUM 3.7 mmol/L (3.5-5.1)
[2017-10-06 07:26] VITALS: BP 150/84; PULSE 86; TEMP 36.7; O2SAT 90
[2017-10-06] MEDS: MAGNESIUM HYDROXIDE SUSP 30 ML UDC PO SCH (08:17)
[2017-10-06] MEDS: FLUTICASONE/SALMETEROL 250/50 (ADVAIR) 14 PUFF/1 INHALER INH SCH ×2 (08:17→20:48)
[2017-10-06] MEDS: LACTOBACILLUS ACIDOPHILUS (FLORANEX) TAB PO SCH ×3 (08:25→16:33)
[2017-10-06] MEDS: BusPIRone 15 MG TAB PO SCH ×3 (08:26→20:51)
[2017-10-06] MEDS: ATORVASTATIN 40 MG TAB PO SCH (08:27)
[2017-10-06] MEDS: DULOXETINE HCL 60 MG CAP PO SCH (08:27)
[2017-10-06] MEDS: MULTIVITAMIN TAB PO SCH (08:27)
[2017-10-06] MEDS: ASPIRIN 81 MG ECTAB PO SCH (08:27)
[2017-10-06] MEDS: FAMOTIDINE 20 MG TAB PO SCH (08:28)
[2017-10-06] MEDS: HYDROCODONE/ACETAMI 10/325 TAB PO SCH ×3 (08:28→21:20)
[2017-10-06] MEDS: CLOPIDOGREL BISULFATE 75 MG TAB PO SCH (08:28)
[2017-10-06] MEDS: DOXYCYCLINE HYCLATE 100 MG CAP PO SCH ×2 (08:29→20:52)
[2017-10-06] MEDS: BuPROPion XL 300 MG TABCR PO SCH (08:29)
[2017-10-06] MEDS: SENNA 8.6 MG TAB PO SCH (08:29)
[2017-10-06] MEDS: ALLOPURINOL 100 MG TAB PO SCH ×2 (08:29→21:17)
[2017-10-06] MEDS ORDERED: BUMETANIDE IV 2 MG in SYRINGE 0 ML IV ONE (08:45)
[2017-10-06] MEDS ORDERED: POTASSIUM CHLORIDE 20 MEQ TABCR PO ONE (08:45)
--- NOTE | 2017-10-06 09:56 | DIAGNOSTIC IMAGING REPORT ---
L KNEE 1 OR 2 VIEWS ROUTINE HISTORY: 57 years-old Female S/P LEFT TKA pain and swelling of the left lower extremity with history of prior left knee replacement COMPARISON: CT left lower extremity 10/05/2017 TECHNIQUE: 2 views of the left knee FINDINGS: Left knee arthroplasty with Gated tibial stem and prior patellar resurfacing noted. Crosstable lateral view is limited secondary to oblique positioning. There is asymmetric narrowing about the medial compartment which may be positional. No acute fracture or dislocation. Corticated densities are seen within the soft tissues superior to the patella, better characterized on comparison CT. Extensive soft tissue swelling about the leg without opaque foreign body. Moderate joint effusion. IMPRESSION: 1. Left knee total joint arthroplasty in place with apparent asymmetric medial joint space narrowing, possibly accentuated by patient positioning. 2. Extensive soft tissue prominence about the left leg. 3. Moderate joint effusion. The above report was generated using voice recognition software. It may contain grammatical, syntax or spelling errors. Electronically signed by: Ortega Todd M.D. 10/06/2017 9:55 AM Dictated Date/Time: 10/06/2017 9:52 AM
--- NOTE | 2017-10-06 14:51 | ORTHOPEDIC CONSULTATION ---
DATE OF CONSULTATION: 10/06/2017 CHIEF COMPLAINT: Left lower extremity cellulitis after knee replacement surgery done elsewhere. HISTORY OF PRESENT ILLNESS: The patient is a 57-year-old female, morbidly obese with multiple comorbidities who was admitted to the hospital here on 10/01/2017 with sepsis secondary to Strep. She had both of her knees replaced at the same time by Dr. Larios in [facility] about 5 years ago as per the patient. She states she had done quite well until a couple weeks ago when she started to develop some redness in her left leg. She was seen by her primary care doctor and put on some antibiotics. She subsequently got markedly worse about 5 days ago to the point where she was obtunded and was brought to the Emergency Room. She was admitted to the hospital and placed on antibiotics and she has responded pretty well from the septic standpoint. She continues to have significant redness and swelling of her leg, particularly below her knee. She states her knees have not been painful until just a couple weeks ago this left leg started hurting. No history of trauma. PAST MEDICAL HISTORY: Past medical history is significant for: 1. Cerebrovascular disease, status post TPA. 2. Asthma. 3. Gout. 4. Chronic stage III kidney disease. 5. Hypertension. 6. Peripheral neuropathy. 7. Gastroesophageal reflux disease. 8. Morbid obesity with a BMI of 73. 9. Tracheomalacia. 10. Vitamin D deficiency. 11. Lower extremity edema. 12. Depression/anxiety. PAST SURGICAL HISTORY: Previous surgeries include: 1. Bilateral knee replacement done 5 years ago. 2. Appendectomy. 3. Cholecystectomy. 4. Herniorrhaphy. The remainder of the past medical history is per the admission H and P. OBJECTIVE: VITAL SIGNS: Temperature is 36.7. Vital signs stable. PHYSICAL EXAMINATION: Physical examination shows a morbidly obese female. She is sitting up in a chair with her legs elevated and looks quite comfortable. EXTREMITIES: Examination of the left leg reveals a very large soft tissue envelope. She has got a markedly swollen and ecchymotic leg, particularly below the knee and calf area. She has got a healed incision anteriorly with a bit of a keloid. She does have a small abrasion with a patch over it managed by the wound clinic over the distal leg in the anterior ankle area. She can dorsiflex and plantarflex her foot appropriately. She has difficulty doing a straight leg raise on either side which is normal for her. Fairly mild warmth to the knee. It is difficult to assess for effusion based on her size. She is neurologically intact. X-RAYS: X-rays of the left knee were reviewed. It shows a total knee arthroplasty. She has got a tibial stem in place. It does look like she has even got varus deformity or significant polyethylene wear medially. No obvious lucency around the implant or signs of loosening or bone destruction. It is a posterior cruciate retaining implant. CT SCAN: A CT scan was done and reveals fluid in her knee joint. No obvious other abscess or pus collections. ULTRASOUND: Ultrasound was negative for DVT. LABORATORIES: Her white blood cell count yesterday was 7.0. Hemoglobin 10.1. Hematocrit 30.9. Sed rate 80. C-reactive protein was 10.90. Electrolytes are fairly normal. ASSESSMENT: This is a 57-year-old female, 5 years out from bilateral knee replacement, with multiple comorbidities including morbid obesity. She obvious has left lower extremity cellulitis. The issue is whether this either involves or came from her knee or has secondarily contaminated her knee. Unfortunately, the only way to tell us to aspirate the fluid and assess it. PLAN: We will aspirate her knee today and send it off for analysis. In the meantime, she will continue on IV antibiotics. This, certainly, fluid collection could be related to infection or could be just related to polyethylene wear as viewed on x-rays. We will aspirate today and send the fluid off for analysis. Any orthopedic questions can be directed at [phone]. There is no need from the orthopedic standpoint to alter her activity level. PROCEDURE: The patient's left knee was prepped with alcohol. I then aspirated the left knee with an 18 gauge spinal needle for about 20 mL of a slightly inflammatory fluid. There was no gross pus. We sent this off for a stat gram stain, aerobic, anaerobic culture as well as a cell count with differential and crystal analysis. If this patient does need a formal irrigation, debridement, polyethylene change, and possible antibiotic spacer, I think it is best done somewhere else. Based on her size and medical issues, I feel this is likely best treated at a tertiary care center if needed.
[2017-10-06 15:56] VITALS: BP 138/80; PULSE 85; TEMP 36.5; O2SAT 93
--- NOTE | 2017-10-06 19:07 | Progress Note ---
Subjective Date of Service: October 06, 2017. Subjective Pt evaluation today including: conversation w/ patient, physical exam, chart review, lab review, review of studies (knee x-rays, left), conversation w/ design studio consultant (orthopedics), review of inpatient medication list Pain: mild LLE, mild left knee PO Intake: normal, 100% of meals consumed Voiding: no voiding problems overall feels better left leg w/ less swelling she notes abdominal swelling persists breathing is also better denies any diarrhea left knee still is painful but not as severe has been accepted at [facility] when medically ready Problem List Medical Problems: (1) Status post CVA Status: Acute Review of Systems Constitutional: No fever, No chills Respiratory: No cough, No shortness of breath, No dyspnea on exertion Cardiac: No chest pain Abdomen: No pain, No nausea, No vomiting, No diarrhea Musculoskeletal: + see HPI, + joint pain Objective Vital Signs Date Time Temp Pulse Resp B/P (MAP) Pulse Ox O2 Delivery O2 Flow Rate FiO2 10/06/17 16:00 Room Air 10/06/17 15:56 36.5 85 20 138/80 (99) 93 Room Air High Flow Oxygen 10/06/17 08:45 Room Air 10/06/17 07:26 36.7 86 18 150/84 (106) 90 Room Air 10/06/17 00:04 36.7 83 18 121/77 (92) 90 CPAP 10/06/17 00:00 CPAP 10/05/17 20:00 Room Air Physical Exam General Appearance: no apparent distress, + obese ENT: pharynx normal Neck: + JVD Respiratory/Chest: no respiratory distress, no accessory muscle use, + decreased breath sounds (bases) Cardiovascular: regular rate, rhythm, no gallop, no murmur Abdomen: normal bowel sounds, non tender, soft, no organomegaly Extremities: + pedal edema (1-2+ on right, severe - 3-4+ edema on left; edema today slightly better b/l ), + pertinent finding (left knee with mild effusion and mild discomfort with active flexion/extension) Neurologic/Psychiatric: alert, oriented x 3 Skin: + pertinent finding (cellulitis of LLE improved today with less erythema ; the erythema is receding from the left inguinal region; less intensely red throughout the entire LLE; left calf w/ less edema today ) Laboratory Results Last 24 Hours Test 10/05/17 22:15 10/06/17 00:00 10/06/17 06:00 Erythrocyte Sedimentation Rate 80 mm/hr C-Reactive Protein 10.90 mg/dl Body Fluid Source KNEE Body Fluid Color YELLOW Body Fluid Appearance HAZY Body Fluid WBC 86248 /uL Body Fluid RBC 4000 /uL Body Fluid Polynuclear WBCs (%) 86.7 % Body Fluid Mononuclear WBCs (%) 13.3 % Synovial Fluid Crystals Sodium Level 139 mmol/L Potassium Level 3.7 mmol/L Chloride Level 103 mmol/L Carbon Dioxide Level 32 mmol/L Anion Gap 4.0 mmol/L Blood Urea Nitrogen 10 mg/dl Creatinine 1.02 mg/dl Est Creatinine Clear Calc Drug Dose 116.1 ml/min Estimated GFR () 71.7 Estimated GFR (Non- 61.9 BUN/Creatinine Ratio 9.4 Random Glucose 78 mg/dl Calcium Level 8.4 mg/dl Magnesium Level 2.1 mg/dl Assessment and Plan 57yo female - 1. severe sepsis with septicemia 2nd to group C strep from her severe LLE cellulitis - clinically improving. WBC count has normalized. No fever in 72 hours. Repeat blood cx's from 10/05 thus far negative. Echo w/o obvious valvular vegetations. * continue unasyn to cover the bacteremia & cellulitis * continue doxy as this will cover the leg and urine * CT leg 10/05 without abscess, phlegmon, nec fasc, etc (left knee effusion seen) * 2-week course of IV antibiotics to cover the bacteremia & cellulitis? Wound need midline PICC for such. 2. acute hypoxic respiratory failure - resolved. 3. acute diastolic CHF - repeat bumex 2mg IV x 1 today. Echo with preserved EF. BUN & CR thus far normal. 4. acute kidney injury 2nd to #1 - resolved. 5. hypomagnesemia, hypophosphatemia - resolved. 6. DVT proph - lovenox 40mg daily. 7. morbid obesity with BMI 73 8. asthma - w/o exacerbation at this time; continue home inhalers. 9. h/o gout - left knee aspiration done by orthopedics today. Crystal analysis was negative for gout/pseudogout crystals. 10. h/o stroke in July 2017 - cont asa, plavix for secondary stroke prevention. 11. HTN - controlled. 12. depression w/ anxiety - continue all outpatient medications. 13. chronic pain syndrome 2nd to chronic low back pain - continue hydrocodone/ tylenol 10's TID. 14. left ovarian cyst - she will need tightener f/u after d/c. 15. metabolic encephalopathy 2nd to #1 - resolved. 16. coag neg staph UTI - finish doxycycline course. day #6/7 of antibiotics 17. left knee effusion in a previously replaced joint (done at [facility] ) - s/p arthrocentesis today by Dr. Dickerson's team to r/o septic gout. Gram stain neg for pathogens. Crystal analysis negative for gout/pseudogout. Await culture. Appreciate Dr. iDckerson's consultation. If culture ends up being negative - 2nd to chronic inflammation from previous THR? reactive to her cellulitis left leg? other? cont PT, OT dispo - [facility] when medically ready Continued [facility] stay due to: ambulation difficulties, multiple IV medications needed Discharge planning: rehab hospital
[2017-10-06] MEDS: QUETIAPINE FUMARATE 200 MG TAB PO SCH (20:49)
[2017-10-06] MEDS: TRAZODONE HCL 50 MG TAB PO SCH (20:50)
[2017-10-06] MEDS: GABAPENTIN 600 MG TAB PO SCH (21:17)
[2017-10-06] MEDS: MONTELUKAST SOD 10 MG TAB PO SCH (21:17)
[2017-10-06] MEDS: NORTRIPTYLINE HCL 25 MG CAP PO SCH (21:18)
[2017-10-06] MEDS: ENOXAPARIN 40 MG/0.4 ML SYR SQ SCH (21:21)
[2017-10-06 23:37] VITALS: BP 122/74; PULSE 90; TEMP 36.8; O2SAT 88
[2017-10-06 23:47] VITALS: O2SAT 94
[2017-10-07] MEDS: AMPICILLIN/SULBACTAM SOD INJ 3,000 MG in SODIUM CHLORIDE 0.9% 100ML 100 ML IV SCH ×4 (03:29→20:45)
[2017-10-07] MEDS: ONDANSETRON INJ 2 MG/ML 2 ML VIAL IV. SCH ×4 (06:30→23:35)
[2017-10-07 07:46] LABS: CALCIUM 8.5 mg/dl (8.5-10.1); CREATININE 1.14 mg/dl (0.60-1.20)
[2017-10-07 07:56] VITALS: BP 132/84; PULSE 80; TEMP 36.7; O2SAT 92
[2017-10-07] MEDS ORDERED: POTASSIUM CHLORIDE 20 MEQ TABCR PO STA (08:37)
[2017-10-07] MEDS: DULOXETINE HCL 60 MG CAP PO SCH (09:14)
[2017-10-07] MEDS: ASPIRIN 81 MG ECTAB PO SCH (09:14)
[2017-10-07] MEDS: LACTOBACILLUS ACIDOPHILUS (FLORANEX) TAB PO SCH ×3 (09:14→18:03)
[2017-10-07] MEDS: CLOPIDOGREL BISULFATE 75 MG TAB PO SCH (09:14)
[2017-10-07] MEDS: SENNA 8.6 MG TAB PO SCH (09:14)
[2017-10-07] MEDS: ATORVASTATIN 40 MG TAB PO SCH (09:14)
[2017-10-07] MEDS: DOXYCYCLINE HYCLATE 100 MG CAP PO SCH ×2 (09:15→20:46)
[2017-10-07] MEDS: BuPROPion XL 300 MG TABCR PO SCH (09:15)
[2017-10-07] MEDS: FAMOTIDINE 20 MG TAB PO SCH (09:15)
[2017-10-07] MEDS ORDERED: BUMETANIDE IV 2 MG in SYRINGE 0 ML IV ONE (09:15)
[2017-10-07] MEDS: ALLOPURINOL 100 MG TAB PO SCH ×2 (09:15→20:46)
[2017-10-07] MEDS: BusPIRone 15 MG TAB PO SCH ×3 (09:16→20:45)
[2017-10-07] MEDS: MULTIVITAMIN TAB PO SCH (09:17)
[2017-10-07] MEDS: FLUTICASONE/SALMETEROL 250/50 (ADVAIR) 14 PUFF/1 INHALER INH SCH ×2 (09:17→20:45)
[2017-10-07] MEDS: MAGNESIUM HYDROXIDE SUSP 30 ML UDC PO SCH (09:20)
[2017-10-07] MEDS: HYDROCODONE/ACETAMI 10/325 TAB PO SCH ×3 (09:21→20:50)
[2017-10-07] MEDS ORDERED: BISACODYL 5 MG TABEC PO ONE (14:15)
[2017-10-07 15:08] VITALS: BP 115/76; PULSE 83; TEMP 36.5; O2SAT 93
[2017-10-07] MEDS ORDERED: BUMETANIDE IV 1 MG in SYRINGE 0 ML IV ONE (17:00)
--- NOTE | 2017-10-07 17:59 | PROGRESS NOTE ---
DATE: 10/07/2017 SUBJECTIVE: A 57-year-old female admitted with sepsis and lower extremity cellulitis with an underlying knee replacement in place. She is doing better today. She says her leg hurts less and she is having less knee pain. No other complaints. OBJECTIVE: VITAL SIGNS: Temperature is 36.5. Vital signs stable. PHYSICAL EXAMINATION: EXTREMITIES: Examination of left lower extremity reveals a markedly swollen leg, particularly below the knee. Her redness seems to have her improved slightly. Still markedly swollen. Very large soft tissue envelope. Difficult to appreciate a knee effusion. There is no warmth to her knee. Most all the redness is below her knee. She is neurologically intact. CULTURE RESULTS: Culture results are no growth to date. Gram stain was no organisms. Cell count of joint fluid shows 11 thousand WBCs with 86% PMN's. ASSESSMENT: A 57-year-old female, 5 years out from bilateral knee replacements done elsewhere with left lower extremity cellulitis and resolved sepsis. Her knee aspirate does reveal 11,000 white cells which is concerning for infection. There has been no growth to date. Her implants looked stable. Her knee exam does not appear clearly infectious. This is a very difficult situation to know exactly what to do as even with infection being on the antibiotics her cultures may not grow anything. The inflammatory effusion by cell count is certainly concerning for infection. Concerning this patient's size and stability of implants I would not recommend intervention unless these cultures grow something or her exam is more consistent with infection. Certainly if anyone wants to entertain another opinion I am certainly open to that or referral to a tertiary care center for a second opinion and definitive treatment if necessary. PLAN: At this point will continue to watch her cultures. Once again this is a very difficult to call to make. Any questions can be directed to me at [phone]. Plan for now is to just watch her leg and how her symptoms respond to the antibiotics. Will follow the culture results. She can weightbear as tolerated and resume normal activity. DVT prophylaxis as per the primary care service and she is going to need several weeks of IV antibiotics. CESARIO
[2017-10-07] MEDS: TRAZODONE HCL 50 MG TAB PO SCH (20:45)
[2017-10-07] MEDS: GABAPENTIN 600 MG TAB PO SCH (20:45)
[2017-10-07] MEDS: MONTELUKAST SOD 10 MG TAB PO SCH (20:46)
[2017-10-07] MEDS: QUETIAPINE FUMARATE 200 MG TAB PO SCH (20:46)
[2017-10-07] MEDS: NORTRIPTYLINE HCL 25 MG CAP PO SCH (20:46)
[2017-10-07] MEDS: ENOXAPARIN 40 MG/0.4 ML SYR SQ SCH (21:06)
--- NOTE | 2017-10-07 23:12 | Progress Note ---
Subjective Date of Service: October 07, 2017. Subjective Pt evaluation today including: conversation w/ patient, conversation w/ family (daughter by phone), physical exam, chart review, lab review, review of inpatient medication list Pain: minimal left knee pain today PO Intake: normal, eating all of meals Voiding: no voiding problems overall feels good no dyspnea or cough left leg feels and looks much better no bowel movement in 5+ days despite taking miralax no nausea/emesis/abd pain c/o mild left ankle pain today Problem List Medical Problems: (1) Status post CVA Status: Acute Review of Systems Constitutional: No fever, No chills Respiratory: No shortness of breath Cardiac: No chest pain Abdomen: No pain Musculoskeletal: + see HPI, + joint pain Objective Vital Signs Date Time Temp Pulse Resp B/P (MAP) Pulse Ox O2 Delivery O2 Flow Rate FiO2 10/07/17 15:08 36.5 83 18 115/76 (89) 93 Room Air 10/07/17 08:00 Room Air 10/07/17 07:56 36.7 80 18 132/84 (100) 92 Room Air 10/07/17 00:05 CPAP 10/06/17 23:47 94 CPAP 10/06/17 23:37 36.8 90 20 122/74 (90) 88 Room Air Physical Exam General Appearance: no apparent distress, + obese ENT: pharynx normal Neck: no JVD Respiratory/Chest: lungs clear, no respiratory distress, no accessory muscle use Cardiovascular: regular rate, rhythm, no gallop, no murmur Abdomen: normal bowel sounds, non tender, soft, no organomegaly, + pertinent finding (less distended today) Extremities: + pedal edema (RLE - 1+; LLE about 3+ - improved from prior exams) , + pertinent finding (left knee - mild joint effusion, mildly tender to palpation, large surgical scar present) Neurologic/Psychiatric: alert, normal mood/affect, oriented x 3 Skin: + pertinent finding (LLE - the erythema on the upper thigh is markedly better with near resolution of the erythema from the groin down to the knee; the remaining erythema inferior to the knee is much less and not as intensely red; the left calf is less tense today; blister on medial posterior aspect of left calf ruptured overnight; optifoam is in place) Comments: musculo - left ankle - mild synovitis present; with active ROM there is mild tenderness Laboratory Results Last 24 Hours Test 10/07/17 06:23 Sodium Level 140 mmol/L Potassium Level 4.0 mmol/L Chloride Level 104 mmol/L Carbon Dioxide Level 31 mmol/L Anion Gap 5.0 mmol/L Blood Urea Nitrogen 9 mg/dl Creatinine 1.14 mg/dl Est Creatinine Clear Calc Drug Dose 103.9 ml/min Estimated GFR () 62.7 Estimated GFR (Non- 54.1 BUN/Creatinine Ratio 8.2 Random Glucose 79 mg/dl Calcium Level 8.5 mg/dl Magnesium Level 2.2 mg/dl Assessment and Plan 57yo female - 1. severe sepsis with septicemia 2nd to group C strep from her severe LLE cellulitis - sepsis/septicemia resolved; cellulitis markedly improved. WBC count has normalized. No fever in several days. Repeat blood cx's from 10/05 thus far negative. Echo w/o obvious valvular vegetations. * continue unasyn to cover the bacteremia & cellulitis * continue doxy as this will cover the leg and urine; suspect we can stop the doxy soon * CT leg 10/05 without abscess, phlegmon, nec fasc, etc (left knee effusion seen) * 2-week course of IV antibiotics to cover the bacteremia & cellulitis? Wound need midline PICC for such. 2. acute hypoxic respiratory failure - resolved. 3. acute diastolic CHF - good diuresis over the last few days. Give 2mg of bumex this am, and 1mg this afternoon; repeat labs in am. 4. acute kidney injury 2nd to #1 - resolved. 5. hypomagnesemia, hypophosphatemia - resolved. 6. DVT proph - lovenox 40mg daily. 7. morbid obesity with BMI 73 8. asthma - w/o exacerbation at this time; continue home inhalers. 9. h/o gout - s/p arthrocentesis of left knee. Crystal analysis was negative for gout/pseudogout crystals. Left ankle arthritis could be gout; check uric acid level in am. 10. h/o stroke in July 2017 - cont asa, plavix for secondary stroke prevention. 11. HTN - controlled. 12. depression w/ anxiety - continue all outpatient medications. 13. chronic pain syndrome 2nd to chronic low back pain - continue hydrocodone/ tylenol 10's TID. 14. left ovarian cyst - she will need interior systems carpenter f/u after d/c. 15. metabolic encephalopathy 2nd to #1 - resolved. 16. coag neg staph UTI - finish doxycycline course. day #7/7 of antibiotics 17. left knee effusion in a previously replaced joint (done at [facility] ) - s/p arthrocentesis by Dr. Dickerson's team to r/o septic gout. Gram stain neg for pathogens. Culture thus far negative. Crystal analysis negative for gout/pseudogout. Appreciate Dr. Dickerson's consultation. If culture ends up being negative - 2nd to chronic inflammation from previous THR? reactive to her cellulitis left leg? other? 18. constipation - dulcolax tab x 1. Cont miralax. cont PT, OT dispo - [facility] when medically ready results of #17 will dictate plan of care Continued [facility] stay due to: ambulation difficulties, multiple IV medications needed Discharge planning: rehab hospital
[2017-10-07 23:28] VITALS: BP 127/80; PULSE 84; TEMP 36.5; O2SAT 94
[2017-10-08] MEDS: AMPICILLIN/SULBACTAM SOD INJ 3,000 MG in SODIUM CHLORIDE 0.9% 100ML 100 ML IV SCH ×3 (03:51→14:46)
[2017-10-08] MEDS: ONDANSETRON INJ 2 MG/ML 2 ML VIAL IV. SCH ×5 (05:30→23:39)
[2017-10-08 06:20] LABS: HEMATOCRIT 31.6 % (37-47); HEMOGLOBIN 10.1 g/dL (12.0-16.0); MEAN CELL VOLUME 83.4 fL (80-100); MEAN CORPUSCULAR HEMOGLOBIN 26.6 pg (25-34); MEAN PLATELET VOLUME 9.4 fL (7.4-10.4); PLATELET COUNT 218 K/uL (130-400); RED CELL DISTRIBUTION WIDTH CV 16.5 % (11.5-14.5); RED CELL DISTRIBUTION WIDTH SD 49.9 fL (36.4-46.3); WHITE BLOOD COUNT 9.29 K/uL (4.8-10.8)
[2017-10-08 06:55] LABS: CALCIUM 8.4 mg/dl (8.5-10.1); CREATININE 1.17 mg/dl (0.60-1.20); URIC ACID 4.5 mg/dl (2.6-7.2)
[2017-10-08 07:48] VITALS: BP 130/82; PULSE 82; TEMP 36.5; O2SAT 90
[2017-10-08] MEDS ORDERED: POTASSIUM CHLORIDE 20 MEQ TABCR PO STA (08:16)
[2017-10-08] MEDS ORDERED: SOD PHOSPHATE/SOD BIPHOSPHATE ENEMA 132 ML BTL PR STA (08:16)
[2017-10-08] MEDS ORDERED: BUMETANIDE IV 2 MG in SYRINGE 0 ML IV ONE (08:30)
[2017-10-08] MEDS: MAGNESIUM HYDROXIDE SUSP 30 ML UDC PO SCH (08:32)
[2017-10-08] MEDS: FLUTICASONE/SALMETEROL 250/50 (ADVAIR) 14 PUFF/1 INHALER INH SCH ×2 (08:32→20:38)
[2017-10-08] MEDS: CLOPIDOGREL BISULFATE 75 MG TAB PO SCH (08:33)
[2017-10-08] MEDS: ATORVASTATIN 40 MG TAB PO SCH (08:33)
[2017-10-08] MEDS: ALLOPURINOL 100 MG TAB PO SCH ×2 (08:33→20:47)
[2017-10-08] MEDS: MULTIVITAMIN TAB PO SCH (08:33)
[2017-10-08] MEDS: LACTOBACILLUS ACIDOPHILUS (FLORANEX) TAB PO SCH ×3 (08:34→17:25)
[2017-10-08] MEDS: DULOXETINE HCL 60 MG CAP PO SCH (08:34)
[2017-10-08] MEDS: DOXYCYCLINE HYCLATE 100 MG CAP PO SCH (08:34)
[2017-10-08] MEDS: FAMOTIDINE 20 MG TAB PO SCH (08:35)
[2017-10-08] MEDS: ASPIRIN 81 MG ECTAB PO SCH (08:35)
[2017-10-08] MEDS: BusPIRone 15 MG TAB PO SCH ×3 (08:35→20:45)
[2017-10-08] MEDS: BuPROPion XL 300 MG TABCR PO SCH (08:35)
[2017-10-08] MEDS: SENNA 8.6 MG TAB PO SCH (08:36)
[2017-10-08] MEDS: HYDROCODONE/ACETAMI 10/325 TAB PO SCH ×3 (08:36→20:46)
--- NOTE | 2017-10-08 08:38 | PROGRESS NOTE ---
DATE: 10/08/2017 SUBJECTIVE: This is a 57-year-old female status post bilateral knee replacements, admitted with sepsis and left lower extremity cellulitis. She continues to make improvements daily. Her knee does not bother her much today. She states her leg is getting better slowly daily. No new complaints. OBJECTIVE: VITAL SIGNS: Temperature 36.5. Vital signs stable. PHYSICAL EXAMINATION: Physical examination of the left leg reveals redness mostly all from the distal two-thirds of her coles down to be slightly improved. Still quite a bit of swelling, but redness and erythema have improved. I do not think much in the way of a knee effusion. No real particular pain with any motion. No warmth to the knee itself. CULTURE RESULTS: Culture results show no growth to date. ASSESSMENT: This is a 57-year-old female, 5 years out from bilateral knee replacement, admitted with sepsis and cellulitis. Sepsis is resolved. Her cellulitis is slowly improving. PLAN: Her joint effusion suggests possible infection based on cell count, but cultures have been no growth. She has been on antibiotics which make this a little difficult to interpret. In any case, she is not having much knee pain and the cellulitis seems to be all the below her knee replacement, so I would recommend continued IV antibiotics and observation and see how she does. We will continue to follow cultures. Any orthopedic questions can be directed to me at [phone].
--- NOTE | 2017-10-08 14:43 | Progress Note ---
Progress Note Date of Service October 08, 2017. Progress Note ID Consult Dictated #[id number] A/P: 1. GCS Sepsis 2. LLE cellulitis 3. Infected prosthetic knee joint -Would suggest change to rocephin 2g IV daily -Would give 4-6 weeks IV abx, suspect joint involvement/infected hardware with elevated ESR, knee effusion on ct scan and >11,000 wbc on knee aspirate -Knee culture negative to date, but received multiple IV abx prior to aspiration -Repeat blood culture and echo negative -Will need weekly cbc, cmp, esr while on therapy -Can follow with ID post d/c from hospital, may ultimately require transfer for ortho intervention -thank you
--- NOTE | 2017-10-08 15:15 | INFECT. DISEASE CONSULTATION ---
DATE OF CONSULTATION: 10/08/2017 HISTORY OF PRESENT ILLNESS: This is a 57-year-old female who was admitted 1 week ago secondary to respiratory distress. She was also recently seen by her primary care physician and was given antibiotics for left lower extremity cellulitis which did not improve. She initially had a white blood cell count as high as 22,000 on the which has improved now to 9.2. As part of her initial workup, blood cultures were obtained back on the and grew pansensitive group C strep. Repeat blood cultures were obtained on the and are negative to date. There was some concern for infection of left prosthetic knee and orthopedic surgery was consulted on the . She did undergo a bedside aspiration. Gram stain showed no organisms and cultures are negative; however, she has been on antibiotics since admission to the hospital. She currently is on Unasyn and is tolerating this well. Previously, she was on vancomycin. She states she is due to be discharged within the next few days to [facility] to continue ongoing IV antibiotics. She states she was having fevers and chills when she first presented. Looking back at records, she was persistently febrile from the through the with temperatures as high as 39 degrees consistently. She has been afebrile since 6:00 a.m. on the . Overall, she states she is feeling much better. On my examination, she is out of bed to chair. She denies any nausea, vomiting, diarrhea or abdominal pain. She states she is having significantly less pain in the left lower extremity, but does admit to some ongoing discomfort. Her remaining review of systems is reviewed and is unremarkable. PAST MEDICAL HISTORY: Significant for CVA, asthma, chronic back pain, depression, anxiety, gout, chronic kidney disease, hypertension, high cholesterol, peripheral neuropathy, vitamin D deficiency, GERD, tracheomalacia and morbid obesity. PAST SURGICAL HISTORY: Significant for appendectomy, cholecystectomy, hernia repair and bilateral knee replacements. FAMILY HISTORY: Noncontributory. SOCIAL HISTORY: Negative for alcohol, drug or tobacco use. ALLERGIES: SHE HAS MULTIPLE ALLERGIES INCLUDING CORTICOSTEROIDS, MORPHINE, PENICILLIN, ALTHOUGH SHE IS TOLERATING UNASYN, PREDNISONE AND AMBIEN. CURRENT MEDICATIONS: Dulcolax, bumetanide, potassium, Percocet, doxycycline, Toradol, Floranex, Augmentin, Unasyn, Pepcid, multivitamin, milk of magnesia, Senokot, Seroquel, trazodone, nortriptyline, Tylenol, Ventolin, Reglan, Zofran, Neurontin, aspirin, Lipitor, Plavix, Cymbalta, Lovenox, allopurinol, buspirone, Advair, Singulair. PHYSICAL EXAMINATION: VITAL SIGNS: She is afebrile, pulse 82, respiratory rate 20, blood pressure 130/82, oxygen saturation is 92-94%. GENERAL: She is awake, alert and oriented x3. She is in no acute distress. HEENT: Mucous membranes are moist. Extraocular muscles are intact. HEART: Regular. LUNGS: Clear. ABDOMEN: Soft. There is left lower extremity erythema. EXTREMITIES: There is chronic lower extremity edema bilaterally. Her left lower extremity is not warm to touch. There is minimal tenderness. Incision is clean, dry and intact. There is no wound dehiscence. LABORATORY STUDIES: CBC today, white blood cell count 9.2, hemoglobin 10.1, platelets 218. Sed rate on the was 80. Chemistry panel: Sodium 139, potassium 4.0, chloride 101, bicarbonate 31, BUN 10, creatinine 1.1, glucose 80. LFTs were normal. UA is negative. Knee fluid from the showed hazy appearance with 11,442 white blood cells, 86% neutrophils. Flu swab was negative. Cultures from the ER are growing group C strep, which is pansensitive. Repeat blood cultures on the are negative. A wound culture from the from aspiration is negative. She did have a CAT scan of the lower extremity on 05 of October, which showed subcutaneous edema without drainable fluid collection. There was a moderate left knee effusion noted. Most recent chest x-ray was done on the and was negative for consolidation. ASSESSMENT AND PLAN: Group C septicemia, likely secondary to cellulitis with considerable concern for infection of left knee prosthesis with greater than 11,000 white blood cells seen on aspiration. Her culture from the knee is negative and very well may remain negative secondary to being on multiple broad-spectrum antibiotics prior to knee aspiration. Her CAT scan does show knee effusion and I would err on the side of treating this as an infected knee joint even in the absence of a negative culture, especially with an elevated sed rate. I would recommend changing the patient to Rocephin 2 grams daily and treating for a period of 4-6 weeks. She was evaluated by orthopedic surgery and it was felt that if any surgical intervention would need to be done at a tertiary care center. She did have an echocardiogram done here which did not show any vegetations; however, I would prefer to treat for a longer period of time. Her repeat blood cultures are negative to date. Again, I would give anywhere between 4 and 6 weeks of IV antibiotics. She will need weekly laboratory studies including CBC, chemistry panel and sed rate. Thank you for this consultation.
[2017-10-08 16:00] VITALS: O2SAT 90
[2017-10-08 16:27] VITALS: BP 110/63; PULSE 88; TEMP 36.8; O2SAT 92
[2017-10-08] MEDS ORDERED: CEFTRIAXONE SOD INJ 2,000 MG in DEXTROSE 5% 50ML 50 ML IV SCH (20:00)
[2017-10-08] MEDS: TRAZODONE HCL 50 MG TAB PO SCH (20:45)
[2017-10-08] MEDS: GABAPENTIN 600 MG TAB PO SCH (20:45)
[2017-10-08] MEDS: QUETIAPINE FUMARATE 200 MG TAB PO SCH (20:46)
[2017-10-08] MEDS: NORTRIPTYLINE HCL 25 MG CAP PO SCH (20:46)
[2017-10-08] MEDS: MONTELUKAST SOD 10 MG TAB PO SCH (20:46)
[2017-10-08] MEDS: ENOXAPARIN 40 MG/0.4 ML SYR SQ SCH (20:47)
[2017-10-08 23:53] VITALS: BP 128/79; PULSE 91; TEMP 36.6; O2SAT 92
[2017-10-09] MEDS: ONDANSETRON INJ 2 MG/ML 2 ML VIAL IV. SCH ×2 (06:00→12:24)
[2017-10-09 06:08] LABS: HEMATOCRIT 31.4 % (37-47); HEMOGLOBIN 10.4 g/dL (12.0-16.0); MEAN CELL VOLUME 84.6 fL (80-100); MEAN CORPUSCULAR HGB CONC 33.1 g/dl (32-36); PLATELET COUNT 259 K/uL (130-400); RED CELL DISTRIBUTION WIDTH CV 16.3 % (11.5-14.5); WHITE BLOOD COUNT 8.61 K/uL (4.8-10.8)
[2017-10-09 06:45] LABS: CREATININE 1.15 mg/dl (0.60-1.20)
[2017-10-09 06:52] LABS: CALCIUM 8.6 mg/dl (8.5-10.1)
--- NOTE | 2017-10-09 06:56 | Progress Note ---
Subjective Date of Service: late entry for visit October 08, 2017. Subjective Pt evaluation today including: conversation w/ patient, conversation w/ family (pt's parents & daughter at bedside), physical exam, chart review, lab review, conversation w/ art sales consultant (Dr. Dickerson & Dr. Machado), review of inpatient medication list Pain: mild left knee pain PO Intake: eating 100% meals Voiding: no voiding problems overall feels much better abdomen feels less full of fluid no dyspnea or cough left knee with mild pain only no mention of left ankle pain today ready to go rehab at [facility] Problem List Medical Problems: (1) Status post CVA Status: Acute Review of Systems Constitutional: No fever, No chills Respiratory: No cough, No sputum, No wheezing, No shortness of breath Cardiac: No chest pain Abdomen: No pain, No constipation (finally had 2 stools today) Objective Vital Signs Date Time Temp Pulse Resp B/P (MAP) Pulse Ox O2 Delivery O2 Flow Rate FiO2 10/09/17 00:00 CPAP 10/08/17 23:53 36.6 91 20 128/79 (95) 92 Room Air 10/08/17 16:27 36.8 88 20 110/63 (79) 92 Room Air 10/08/17 16:00 90 Room Air 10/08/17 07:48 36.5 82 20 130/82 (98) 90 Room Air 10/08/17 07:32 Room Air Physical Exam General Appearance: no apparent distress, + obese ENT: pharynx normal Neck: + JVD Respiratory/Chest: lungs clear, no respiratory distress, no accessory muscle use Cardiovascular: regular rate, rhythm, no gallop, no murmur Abdomen: normal bowel sounds, non tender, soft, no organomegaly Extremities: + pedal edema (right leg - <1+; left leg 2-3+ edema extending to above the knee), + pertinent finding (left knee w/ mild effusion & minimal tenderness with active ROM) Neurologic/Psychiatric: alert, oriented x 3 Skin: + pertinent finding (cellulitis ABOVE the knee on left largely resolved; minimal erythema over the knee joint; mild cellulitis of the entire leg below the knee but markedly improved in comparision to prior exams; blistering on posterior calf area, medial aspect ) Laboratory Results Last 24 Hours Test 10/09/17 05:29 White Blood Count 8.61 K/uL Red Blood Count 3.71 M/uL Hemoglobin 10.4 g/dL Hematocrit 31.4 % Mean Corpuscular Volume 84.6 fL Mean Corpuscular Hemoglobin 28.0 pg Mean Corpuscular Hemoglobin Concent 33.1 g/dl RDW Standard Deviation 50.0 fL RDW Coefficient of Variation 16.3 % Platelet Count 259 K/uL Mean Platelet Volume 10.0 fL Assessment and Plan 57yo female - 1. severe sepsis with septicemia 2nd to group C strep from her severe LLE cellulitis - sepsis/septicemia resolved; cellulitis markedly improved. WBC count has normalized. No fever in several days. Repeat blood cx's from 10/05 thus far negative. Echo w/o obvious valvular vegetations. S/p arthrocentesis of left TKR joint - WBC 11,000 on cell counts, but gram stain /culture negative. Spoke with ID - at this time we are erring on side of caution to treat with prolonged IV antibiotic course to cover the joint. There is a possibility that since the arthrocentesis was 5+ days after initiation of antibiotics the culture could be falsely negative. Plan 4-6 weeks of IV rocephin 2gm daily. PICC placed today for this purpose. d/c unasyn d/c doxycycline 2. acute hypoxic respiratory failure - resolved. 3. acute diastolic CHF - continues to diurese very well with IV bumex with stable labs. Give another dose of IV bumex today. Re-eval in am. May need bumex 2mg BID at d/c (was taking 2mg daily before admission) 4. acute kidney injury 2nd to #1 - resolved. 5. hypomagnesemia, hypophosphatemia - resolved. 6. DVT proph - lovenox 40mg daily. 7. morbid obesity with BMI 70 8. asthma - w/o exacerbation at this time; continue home inhalers. 9. h/o gout - s/p arthrocentesis of left knee. Crystal analysis was negative for gout/pseudogout crystals. 10. h/o stroke in July 2017 - cont asa, plavix for secondary stroke prevention. 11. HTN - controlled. 12. depression w/ anxiety - continue all outpatient medications. 13. chronic pain syndrome 2nd to chronic low back pain - continue hydrocodone/ tylenol 10's TID. 14. left ovarian cyst - she will need book sorter f/u after d/c. 15. metabolic encephalopathy 2nd to #1 - resolved. 16. coag neg staph UTI - completed course of doxycycline. 17. left knee effusion in a previously replaced joint (done at [facility] by Dr. Donald Larios) - s/p arthrocentesis by Dr. Dickerson's team to r/o septic gout. Gram stain neg for pathogens. Culture thus far negative. Crystal analysis negative for gout/pseudogout. Appreciate Dr. Dickerson's consultation. See discussion above in #1 Re: antibiotics. Would advise f/u with Dr. Larios after d/c to determine if she would need anything surgical in the future. 18. constipation - resolved family updated at bedside today cont PT, OT dispo - [facility] perhaps on Wednesday Continued [facility] stay due to: ambulation difficulties, multiple IV medications needed Discharge planning: rehab hospital
[2017-10-09 07:56] VITALS: BP 133/78; PULSE 84; TEMP 36.5; O2SAT 94
[2017-10-09] MEDS: LACTOBACILLUS ACIDOPHILUS (FLORANEX) TAB PO SCH ×2 (08:47→12:24)
[2017-10-09] MEDS: FLUTICASONE/SALMETEROL 250/50 (ADVAIR) 14 PUFF/1 INHALER INH SCH (08:48)
[2017-10-09] MEDS: BusPIRone 15 MG TAB PO SCH ×2 (08:48→13:48)
[2017-10-09] MEDS: DULOXETINE HCL 60 MG CAP PO SCH (08:49)
[2017-10-09] MEDS: ATORVASTATIN 40 MG TAB PO SCH (08:50)
[2017-10-09] MEDS: ASPIRIN 81 MG ECTAB PO SCH (08:50)
[2017-10-09] MEDS: MULTIVITAMIN TAB PO SCH (08:50)
[2017-10-09] MEDS: FAMOTIDINE 20 MG TAB PO SCH (08:51)
[2017-10-09] MEDS: SENNA 8.6 MG TAB PO SCH (08:51)
[2017-10-09] MEDS: CLOPIDOGREL BISULFATE 75 MG TAB PO SCH (08:51)
[2017-10-09] MEDS: ALLOPURINOL 100 MG TAB PO SCH (08:52)
[2017-10-09] MEDS: BuPROPion XL 300 MG TABCR PO SCH (08:52)
[2017-10-09] MEDS: MAGNESIUM HYDROXIDE SUSP 30 ML UDC PO SCH (09:03)
[2017-10-09] MEDS: HYDROCODONE/ACETAMI 10/325 TAB PO SCH ×2 (09:03→13:48)
[2017-10-09] MEDS ORDERED: LVNIS40 SQ (10:01)
[2017-10-09] MEDS ORDERED: GABA-113 PO (10:01)
[2017-10-09] MEDS ORDERED: METO5TAB2 PO (10:01)
[2017-10-09] MEDS ORDERED: CEFT1INJ6 IV (10:01)
[2017-10-09] MEDS ORDERED: BUME2TAB3 PO (10:01)
[2017-10-09] MEDS ORDERED: SENN-61 PO (10:01)
--- NOTE | 2017-10-09 10:14 | Discharge Instructions ---
Discharge Instructions Date of Service October 09, 2017. Admission Reason for Admission: Sepsis Discharge Discharge Diagnosis / Problem: Group C Strep Septicemia,LLE cellulitis Discharge Goals Goal(s): Improve disease control, Diagnostic testing, Therapeutic intervention Activity Recommendations Activity Level: Assistance Required Therapies: Physical Therapy, Occupational Therapy Shower/Bathe: no limitations . Additional Information Patient informed of condition: Yes Advance Directives: No DNR: No Level of Care: Acute Rehab Communicable Disease: Yes Prognosis: Stable Oxygen at (LPM): N/A Bales Catheter: No Instructions / Follow-Up Instructions / Follow-Up This patient is a 57 yo female who presented with: 1. severe sepsis with septicemia 2nd to group C strep from her severe LLE cellulitis - sepsis/septicemia resolved; cellulitis markedly improved. WBC count has normalized. No fever in several days. Repeat blood cx's from 10/05 thus far negative. Echo w/o obvious valvular vegetations. S/p arthrocentesis of left TKR joint - WBC 11,000 on cell counts, but gram stain /culture negative however may be due to sterilization from previous antibiotics. Spoke with ID - at this time we are erring on side of caution to treat with prolonged IV antibiotic course to cover the joint. There is a possibility that since the arthrocentesis was 5+ days after initiation of antibiotics the culture could be falsely negative. Plan 6 weeks of IV rocephin 2gm daily. Today day #7 PICC placed today for this purpose. -Check weekly CBC, CMP, ESR, CRP 2. acute hypoxic respiratory failure - resolved. 3. acute diastolic CHF - continues to diurese very well with IV bumex with stable labs. Discharge on bumex 2mg daily with extra dose in PM for weight gain > 3 lbs/24hr (was taking 2mg daily before admission) -restart home amiloride 4. 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 hypomagnesemia, hypophosphatemia - resolved. 6. DVT proph - lovenox 40mg daily and would continue this at rehab given morbid obesity, relative sedentary state and acute inflammation 7. morbid obesity with BMI 70 -needs obesity management aggressively as outpatient 8. asthma - w/o exacerbation at this time; continue home inhalers. 9. h/o gout - s/p arthrocentesis of left knee. Crystal analysis was negative for gout/pseudogout crystals. 10. h/o stroke in July 2017 - cont asa, plavix, statin for secondary stroke prevention. 11. HTN - controlled. -restart home Bisoprolol,Amiloride -continue Bumex 12. depression w/ anxiety - continue all outpatient medications. 13. chronic pain syndrome 2nd to chronic low back pain - continue hydrocodone/ APAP prn 14. left ovarian enlargement seen on CT - she will need behavioral health professional f/u after d/c. 15. metabolic encephalopathy 2nd to #1 - resolved. 16. coag neg staph UTI - completed course of doxycycline. 17. left knee effusion in a previously replaced joint (done at [facility] by Dr. Donald Larios) - s/p arthrocentesis by Dr. Dickerson's team to r/o septic gout. Gram stain neg for pathogens. Culture thus far negative. Crystal analysis negative for gout/pseudogout. Appreciate Dr. Dickerson's consultation. See discussion above in #1 Re: antibiotics. Would advise f/u with Dr. Larios (her Orthopedic Surgeon) after d/c to determine if she would need anything surgical in the future. 18. constipation - resolved -continue Senna 19. GERD-continue pepcid, dc'd PPI and has not had any reflux complaints, especially in setting of terminologist antibiotics and risk of C. diff Discharge to [facility] today Current Hospital Diet Patient's current hospital diet: AHA Diet (Heart Healthy) Discharge Diet Recommended Diet: AHA Diet (Heart Healthy) Pending Studies Studies pending at discharge: no Physician Orders On Transfer Dressing Changes: Left calf daily optifoam changes for blisters IV Therapy: Rocephin 2 gm IV q24 hrs for 5 more weeks Vital Signs: Daily Weigh: Daily Additional Orders: Check CBC, CMP, CRP, ESR once weekly Follow up Orthopedic Surgery within 4 weeks Follow up with [facility] within 1 month Laboratory Results Last 24 Hours Test 10/09/17 05:29 White Blood Count 8.61 K/uL Red Blood Count 3.71 M/uL Hemoglobin 10.4 g/dL Hematocrit 31.4 % Mean Corpuscular Volume 84.6 fL Mean Corpuscular Hemoglobin 28.0 pg Mean Corpuscular Hemoglobin Concent 33.1 g/dl RDW Standard Deviation 50.0 fL RDW Coefficient of Variation 16.3 % Platelet Count 259 K/uL Mean Platelet Volume 10.0 fL Sodium Level 138 mmol/L Potassium Level 4.0 mmol/L Chloride Level 99 mmol/L Carbon Dioxide Level 31 mmol/L Anion Gap 8.0 mmol/L Blood Urea Nitrogen 11 mg/dl Creatinine 1.15 mg/dl Est Creatinine Clear Calc Drug Dose 100.6 ml/min Estimated GFR () 62.0 Estimated GFR (Non- 53.5 BUN/Creatinine Ratio 9.8 Random Glucose 82 mg/dl Calcium Level 8.6 mg/dl Medical Emergencies . Who to Call and When: Medical Emergencies: If at any time you feel your situation is an emergency, please call 911 immediately. . Non-Emergent Contact Non-Emergency issues call your: Primary Care Provider Call Non-Emergent contact if: temperature is above 101, your pain is not controlled, your pain is worsening, your pain is unusual for you, your pain is concerning you, you have any medication questions . . "Provider Documentation" section prepared by Neda Turner. . Core Measure Problem Core Measures: None
--- NOTE | 2017-10-09 10:18 | Discharge Summary ---
Discharge Summary Date of Service October 09, 2017. Discharge Summary Admission Date: October 01, 2017 at 18:30 Discharge Date: October 09, 2017 Discharge Disposition: Rehab ([facility]) Principal Diagnosis: Group C Strep septicemia, LLE cellulitis Problems/Secondary Diagnoses: Severe sepsis Left knee suspected septic arthritis- joint effusion in presence of joint replacement prosthesis Acute hypoxic respiratory failure Acute diastolic CHF Acute kidney injury Hypomagnesemia Hypophosphatemia Morbid obesity with BMI 70 Asthma -mild persistent without exacerbation Gout History of CVA HTN Major depressive disorder w/ anxiety Chronic pain syndrome Chronic low back pain Chronic opioid dependence Left ovarian enlargement Acute metabolic encephalopathy Coagulase negative staph UTI Constipation GERD Procedures: CT Head x 2 CTA Chest CXRx2 Venous Doppler LLE CT abd/pel LLE CT Left knee xray Consultations: Infectious Disease Orthopedic Surgery Medication Reconciliation New Medications: Ceftriaxone Sodium (Rocephin) 1 Gm Inj 2 GM IV Q24H for 35 Days Enoxaparin (Enoxaparin Sodium) 40 Mg/0.4 Ml Inj 40 MG SQ DAILY@2100 for 30 Days for DVT Prophylaxis Senna (Senokot) 8.6 Mg Tab 8.6 MG PO QAM for 30 Days, #30 TAB Changed Medications: Bumetanide (Bumex) 2 Mg Tab 2 MG PO QAM for 30 Days (Medication details modified) and take 2 mg po q1700 prn for weight gain> 3 lbs/24 hours Gabapentin (Neurontin) 300 Mg Cap 600 MG PO HS for 30 Days (Changed from: 900 MG) Metoclopramide Hcl (Metoclopramide Hcl) 5 Mg Tab 5 MG PO QID PRN for nausea for 30 Days (Medication details modified) Continued Medications: Albuterol Hfa (Ventolin Hfa) 200 Puffs/90443 Mcg Aers 2 PUFFS INH Q4H PRN for SOB/Wheezing, INHALER Allopurinol (Allopurinol) 100 Mg Tab 100 MG PO BID Amiloride Hcl (Amiloride Hcl) 5 Mg Tab 5 MG PO QAM Aspirin (Aspirin Ec) 81 Mg Tab 81 MG PO QAM Atorvastatin (Lipitor) 40 Mg Tab 40 MG PO DAILY, TAB Bisoprolol Fumarate (Zebeta) 5 Mg Tab 5 MG PO QAM, TAB Bupropion Hcl (Bupropion Hcl Xl) 300 Mg Tab 300 MG PO DAILY, TAB Buspirone Hcl (Buspar) 15 Mg Tab 15 MG PO TID, TAB Calcium Carbonate (Antacid) (Antacid) 500 Mg Chw 500 MG PO UD PRN for Indigestion TAKE PER PACKAGE DIRECTIONS Cholecalciferol (Vitamin D3) 2,000 Unit Tab 2000 INTER.UNIT PO DAILY Clopidogrel Bisulfate (Plavix) 75 Mg Tab 75 MG PO QAM Cyanocobalamin (Vitamin B-12) 1,000 Mcg Tab 1000 MCG PO QAM Duloxetine Hcl (Cymbalta) 60 Mg Cap 120 MG PO DAILY Famotidine (Pepcid) 20 Mg Tab 20 MG PO QAM, TAB Fluticasone Prop/Salmeterol (Advair Diskus 250/50 60 Dose) 1 Ea Aerp 1 PUFF INH BID Fluticasone Propionate (Nasal) (Flonase Allergy Relief) 50 Mcg/Act Spr 2 SPRAYS RAQUEL DAILY Hydrocodone/Acetaminophen 10MG/325MG (Warren 10MG/325MG) Tab 1 TAB PO Q8H PRN for Pain Methocarbamol (Robaxin) 500 Mg Tab 500 MG PO TID PRN for Muscle Relaxer Montelukast Sodium (Montelukast Sodium) 10 Mg Tab 10 MG PO DAILY Multivitamin (Multivitamin) Tab 1 TAB PO DAILY Nortriptyline (Pamelor) 50 Mg Cap 150 MG PO HS Quetiapine Fumarate (Seroquel) 400 Mg Tab 400 MG PO HS Trazodone Hcl (Desyrel) 150 Mg Tab 150 MG PO HS, TAB Discontinued Medications: Pantoprazole (Protonix) 40 Mg Tab 40 MG PO DAILY, TAB Discharge Exam Pt feeling well. Denies ZENG, dizziness, visual changes, no CP or SOB, no abd pain , no diarrhea or constipation. Thinks LLE is looking better. Physical Exam Vitals reviewed General Appearance: no apparent distress, + morbidly obese ENT: pharynx normal, no thrush Neck: obese, no adenopathy Respiratory/Chest: lungs clear, no respiratory distress, no accessory muscle use Cardiovascular: regular rate, rhythm, no gallop, no murmur Abdomen: normal bowel sounds, non tender, soft, no organomegaly Extremities: + pedal edema (right leg - <1+; left leg 2-3+ edema extending to above the knee), + pertinent finding (left knee w/ mild effusion & minimal tenderness with active ROM) Neurologic/Psychiatric: alert, oriented x 3 Skin: + pertinent finding (cellulitis ABOVE the knee on left largely resolved; minimal erythema over the knee joint; mild cellulitis of the entire leg below the knee but markedly improved in comparison to prior exams; blistering on posterior calf area, medial aspect with Optifoam in place Review of Systems: Constitutional: No fever, No chills Eyes: No worsening of vision ENT: No problem reported Respiratory: No problem reported Cardiovascular: No problem reported Abdomen: No problem reported Musculoskeletal: No problem reported Genitourinary - Female: No problem reported Neurologic: No problem reported Psychiatric: No problem reported Endocrine: No problem reported Hematologic / Lymphatic: No problem reported Integumentary: No problem reported Hospital Course This patient is a 57 yo female who presented with: 1. severe sepsis with septicemia 2nd to group C strep from her severe LLE cellulitis - sepsis/septicemia resolved; cellulitis markedly improved. WBC count has normalized. No fever in several days. Repeat blood cx's from 10/05 thus far negative. Echo w/o obvious valvular vegetations. S/p arthrocentesis of left TKR joint - WBC 11,000 on cell counts, but gram stain /culture negative however may be due to sterilization from previous antibiotics. Spoke with ID - at this time we are erring on side of caution to treat with prolonged IV antibiotic course to cover the joint. There is a possibility that since the arthrocentesis was 5+ days after initiation of antibiotics the culture could be falsely negative. Plan 6 weeks of IV rocephin 2gm daily. Today day #7 PICC placed today for this purpose. -Check weekly CBC, CMP, ESR, CRP 2. acute hypoxic respiratory failure - resolved. 3. acute diastolic CHF - continues to diurese very well with IV bumex with stable labs. Discharge on bumex 2mg daily with extra dose in PM for weight gain > 3 lbs/24hr (was taking 2mg daily before admission) -restart home amiloride 4. 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 hypomagnesemia, hypophosphatemia - resolved. 6. DVT proph - lovenox 40mg daily and would continue this at rehab given morbid obesity, relative sedentary state and acute inflammation 7. morbid obesity with BMI 70 -needs obesity management aggressively as outpatient 8. asthma - w/o exacerbation at this time; continue home inhalers. 9. h/o gout - s/p arthrocentesis of left knee. Crystal analysis was negative for gout/pseudogout crystals. 10. h/o stroke in July 2017 - cont asa, plavix, statin for secondary stroke prevention. 11. HTN - controlled. -restart home Bisoprolol,Amiloride -continue Bumex 12. depression w/ anxiety - continue all outpatient medications. 13. chronic pain syndrome 2nd to chronic low back pain - continue hydrocodone/ APAP prn 14. 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 15. metabolic encephalopathy 2nd to #1 - resolved. 16. coag neg staph UTI - completed course of doxycycline. 17. left knee effusion in a previously replaced joint (done at [facility] by Dr. Donald Larios) - s/p arthrocentesis by Dr. Dickerson's team to r/o septic gout. Gram stain neg for pathogens. Culture thus far negative. Crystal analysis negative for gout/pseudogout. Appreciate Dr. Dickerson's consultation. See discussion above in #1 Re: antibiotics. Would advise f/u with Dr. Larios (her Orthopedic Surgeon) after d/c to determine if she would need anything surgical in the future. 18. constipation - resolved -continue Senna 19. 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 diff Discharge to [facility] today Total Time Spent: Greater than 30 minutes This includes examination of the patient, discharge planning, medication reconciliation, and communication with other providers. Discharge Instructions Please refer to the electronic Patient Visit Report (Discharge Instructions) for additional information. 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
[2017-10-09 10:56] VITALS: O2SAT 94
[2017-10-09 11:04] VITALS: BP 133/78; PULSE 84; TEMP 36.5; O2SAT 94
[2017-10-11] MEDS ORDERED: BUME2TAB3 PO (15:34)
== END 2017-10-09 16:16 | DRG 871 ==
LOC: EDBD 16:10 → C.EDB 16:16 → EDBD 16:16 → MERGE 16:16 → C.MSICU 18:30 → UNDOADMIN 18:30 → ENRESERV 18:51 → C.MS2W 10-03 10:15
PROVIDERS: ADMIT Internal Medicine; ATTEND Family Medicine
PROC: 5A09457 Assistance with Respiratory Ventilation, 24-96 Consecutive Hours, Continuous Positive Airway Pressure (ICD-10-PCS; principal; 2017-10-01)
PROC: 03HC33Z Insertion of Infusion Device into Left Radial Artery, Percutaneous Approach (ICD-10-PCS; 2017-10-01)
PROC: 0S9D3ZX Drainage of Left Knee Joint, Percutaneous Approach, Diagnostic (ICD-10-PCS; 2017-10-06)
DX: A41.9 Sepsis, unspecified organism (principal); G93.41 Metabolic encephalopathy; J96.01 Acute respiratory failure with hypoxia; I50.31 Acute diastolic (congestive) heart failure; N17.9 Acute kidney failure, unspecified; L03.116 Cellulitis of left lower limb; Z68.45 Body mass index [BMI] 70 or greater, adult; F11.20 Opioid dependence, uncomplicated; N39.0 Urinary tract infection, site not specified; I13.0 Hypertensive heart and chronic kidney disease with heart failure and stage 1 through stage 4 chronic kidney disease, or unspecified chronic kidney disease; R65.20 Severe sepsis without septic shock; J45.909 Unspecified asthma, uncomplicated; M54.9 Dorsalgia, unspecified; F32.9 Major depressive disorder, single episode, unspecified; F41.9 Anxiety disorder, unspecified; M10.9 Gout, unspecified; N18.3 Chronic kidney disease, stage 3 (moderate); E78.5 Hyperlipidemia, unspecified; K21.9 Gastro-esophageal reflux disease without esophagitis; E66.01 Morbid (severe) obesity due to excess calories; N83.202 Unspecified ovarian cyst, left side; G62.9 Polyneuropathy, unspecified; E86.0 Dehydration; I95.9 Hypotension, unspecified; E83.42 Hypomagnesemia; K59.00 Constipation, unspecified; G89.4 Chronic pain syndrome; M25.462 Effusion, left knee; Z86.73 Personal history of transient ischemic attack (TIA), and cerebral infarction without residual deficits; Z79.82 Long term (current) use of aspirin; Z90.49 Acquired absence of other specified parts of digestive tract; Z88.5 Allergy status to narcotic agent; Z88.0 Allergy status to penicillin; Z80.9 Family history of malignant neoplasm, unspecified; Z83.3 Family history of diabetes mellitus; Z82.49 Family history of ischemic heart disease and other diseases of the circulatory system; Z84.1 Family history of disorders of kidney and ureter

== ENCOUNTER → 2017-11-15 | Outpatient (CLI) | payer OTHER ==
[~2017-11-15] MED LIST changes: -ATOR-22 PO; +ATOR-24 PO; -BISO10TA4 PO; +BISO5TAB3 PO; -BUPR-79 PO; +BUPR300T43 PO; -BUSP-8 PO; +BUSP15TA70 PO; -FLNIN; +FLUT0.15 NAE; +LVNIS40 SQ; +METH-445 PO; -METH500T37 PO; +SENN-61 PO; -TRAZ100T29 PO; +TRAZ1TAB52 PO; -VENTOLIN INHALER INH; +VNTHFA/IN INH
[2017-11-15 17:25] LABS: HEMATOCRIT 41.5 % (37-47); HEMOGLOBIN 12.8 g/dL (12.0-16.0); MEAN CELL VOLUME 84.7 fL (80-100); MEAN CORPUSCULAR HEMOGLOBIN 26.1 pg (25-34); MEAN CORPUSCULAR HGB CONC 30.8 g/dl (32-36); MEAN PLATELET VOLUME 10.1 fL (7.4-10.4); PLATELET COUNT 321 K/uL (130-400); RED CELL DISTRIBUTION WIDTH CV 15.6 % (11.5-14.5); RED CELL DISTRIBUTION WIDTH SD 48.6 fL (36.4-46.3); WHITE BLOOD COUNT 10.03 K/uL (4.8-10.8)
[2017-11-15 17:59] LABS: ALBUMIN 3.5 gm/dl (3.4-5.0); ALKALINE PHOSPHATASE 126 U/L (45-117); ALT/SGPT 39 U/L (12-78); AST/SGOT 32 U/L (15-37); BLOOD UREA NITROGEN 15 mg/dl (7-18); CARBON DIOXIDE 30 mmol/L (21-32); CREATININE 1.26 mg/dl (0.60-1.20); GLUCOSE 108 mg/dl (70-99); POTASSIUM 3.8 mmol/L (3.5-5.1); SODIUM 136 mmol/L (136-145); TOTAL PROTEIN 8.1 gm/dl (6.4-8.2)
== END | disposition home or self-care (01) ==
LOC: C.LABSPEC 17:11
PROVIDERS: ATTEND Family Medicine
DX: L03.90 Cellulitis, unspecified (principal)

== ENCOUNTER 2018-07-29 14:46 | Inpatient (IN) ==
[2018-07-29] MEDS ORDERED: SODIUM CHLORIDE 0.9% 1000ML 1,000 ML IV ONE (16:09)
[2018-07-29] MEDS ORDERED: ACETAMINOPHEN 325 MG TAB PO STA (16:11)
--- NOTE | 2018-07-29 16:28 | XRay Report ---
XR chest 1V portable CLINICAL HISTORY: weakness LEFT LEG CELLULITIS COMPARISON STUDY: 10/11/2017 FINDINGS: The cardiac and mediastinal contours remain stable. There is no focal pulmonary consolidati on. Slight interstitial prominence is likely secondary to technical factors given the patient's body habitus. This remain stable.[ IMPRESSION: No active disease in the chest. Electronically signed by: Parish Ramesh M.D. 07/29/2018 4:27 PM
[2018-07-29 16:47] LABS: Basophils # (auto) 0.02 K/uL (0-0.2); Basophils % (auto) 0.2 %; Eosinophils % (auto) 1.7 %; Hematocrit (blood only) 36.9 % (37-47); Immature Granulocytes # (auto) 0.03 K/uL (0.00-0.02); Immature Granulocytes % (auto) 0.2 %; Lymphocytes # (auto) 2.32 K/uL (1.2-3.4); Lymphocytes % (auto) 19.3 %; Mean Corpuscular Hgb Conc 32.5 g/dL (32-36); Mean Corpuscular Volume 83.9 fL (80-100); Mean Platelet Volume 9.6 fL (7.4-10.4); Monocytes # (auto) 0.74 K/uL (0.11-0.59); Monocytes % (auto) 6.1 %; Neutrophils # (auto) 8.73 K/uL (1.4-6.5); Neutrophils % (auto) 72.5 %; Platelet Count 239 K/uL (130-400); RDW Coefficient of Variation 15.6 % (11.5-14.5); RDW Standard Deviation 47.5 fL (36.4-46.3); White Blood Count 12.04 K/uL (4.8-10.8)
[2018-07-29 16:59] LABS: INR 1.1 (0.9-1.1); Partial Thromboplastin Time 27.4 Seconds (21.0-31.0); Prothrombin Time 10.9 Seconds (9.0-12.0)
[2018-07-29 17:05] LABS: Albumin Level 3.3 gm/dl (3.4-5.0); BUN Creatinine Ratio 11.5 (10-20); Calcium 8.5 mg/dl (8.5-10.1); Creatinine Clr Calc Pharmacy 86.1 ml/min; Est GFR (African American) 50.6; Est GFR (Non-African American) 43.7; Potassium 3.1 mmol/L (3.5-5.1)
[2018-07-29 17:07] LABS: Albumin Globulin Ratio 0.9 (0.9-2); Bilirubin,Total 0.4 mg/dl (0.2-1); Globulin 3.9 gm/dl (2.5-4.0); Total Protein 7.2 gm/dl (6.4-8.2)
[2018-07-29] MEDS ORDERED: cefTRIAXone SODIUM 2,000 MG in DEXTROSE 5% 50 ML IV STA (17:26)
[2018-07-29] MEDS ORDERED: VANCOMYCIN HCL 2,750 MG in SODIUM CHLORIDE 0.9% 500 ML IV STA (17:27)
--- NOTE | 2018-07-29 18:35 | History & Physical Report ---
Date of Service July 29, 2018 Assessment & Plan (1) Cellulitis of left lower leg: failed outpatient Rx with PO doxycycline. This has been an ongoing chronic issue for some time. Will continue Rocephin and vancomycin started in the emergency department. Consider ID consultation as Dr. Luo knows the patient well. Patient would really benefit from lymphedema treatment as an outpatient. Continue diuretics (2) CVA (cerebral vascular accident): History of 2 lacunar infarcts. No significant residual deficits. Continue aspirin and Plavix for secondary prevention. (3) Hypertension: Continue home medications. (4) Gout: I am concerned that the patient has an active gout flare in the left ankle. Doubt that the ankle is septic. Check uric acid level in the morning and place on indomethacin 25 mg 3 times daily. Obtain left ankle films tonight to exclude any fracture or other process. Continue allopurinol prophylaxis. (5) Asthma: Not in exacerbation at this time. Continue home inhalers. (6) Depression: Patient is on numerous psychotropic medications. I question if she has something to be on straight for depression such as schizoaffective disorder or depression with psychosis given the types of meds that she takes. She appears to have some prolongation of her QTC interval due to the numerous psychotropic medications. Plan to repeat EKG in the morning. She voiced no concerns regarding her mental health tonight. (7) Morbid obesity with BMI of 50.0-59.9, adult: BMI 57 (8) Hypokalemia: Likely due to Bumex diuretic. Replace tonight and recheck potassium in th e morning. Also check magnesium level in morning. Place on standing potassium supplementation. The low potassium is likely contributing to prolonged QTc interval on EKG. (9) Lymphedema: Would benefit from lymphedema treatments as an outpatient. (10) Prolonged QT interval: See discussion above. Repeat EKG in morning. (11) DVT prophylaxis: Placed on Lovenox 40 mg once daily in the morning Obtain PT OT consultations while here as the patient reports weakness. History of Present Illness Chief Complaint: left leg swelling and weeping Primary Care Provider: Etelvina Cazares DO 57yo female with h/o recurrent skin infections of the left leg along with morbid obesity - BMI 57 - presents with 1 month of leg swelling, redness, and weeping. She saw Dr. Candelaria Luo at the ID clinic this am who referred her to the ER for possible admission due to LLE cellulitis. No fevers, chills, or anorexia. She has been taking doxycycline prescribed by the [facility] ER about 1 week. She states that within the last 2 weeks she has had dopplers of both legs neither of which showed DVT. No improvement with the doxy. If anything the cellulitis has worsened. Uses a walker at home to ambulate but walks very little. Has been quite weak. She has had several falls including a fall at home about 1 week ago. NO head injury or syncope. Knees gave out - she felt quite weak. Allergies Allergy/AdvReac Type Severity Reaction Status Date / Time Corticosteroids Allergy Intermediate RASH Verified 07/29/18 18:00 (Glucocorticoids) morphine Allergy Intermediate MOUTH Verified 07/29/18 18:00 SWELLS/FACE SWELLS orange Allergy Intermediate HIVES Verified 07/29/18 18:00 Penicillins Allergy Intermediate RASH/HIVES Verified 07/29/18 18:00 prednisone Allergy Intermediate RED RASH Verified 07/29/18 18:00 pregabalin Allergy Intermediate GOOFY Verified 07/29/18 18:00 zolpidem Allergy Intermediate UNSURE Verified 07/29/18 18:00 Home Medications Home Medications Medication Instructions Recorded Confirmed Type albuterol sulfate [Ventolin HFA] 2 puff INHALATION Q4H PRN 02/08/18 07/29/18 History allopurinol 0 mg PO BID 02/08/18 07/29/18 History amiloride 5 mg PO DAILY 02/08/18 07/29/18 History aspirin [Aspir-81] 81 mg PO DAILY 02/08/18 07/29/18 History atorvastatin 40 mg PO QPM 02/08/18 07/29/18 History bisoprolol fumarate 5 mg PO DAILY 02/08/18 07/29/18 History bumetanide 0 mg PO DAILY 02/08/18 07/29/18 History bupropion HCl 300 mg PO QAM 02/08/18 07/29/18 History buspirone 15 mg PO TID 02/08/18 07/29/18 History cholecalciferol (vitamin D3) 2,000 unit PO TID 02/08/18 07/29/18 History [Vitamin D3] clopidogrel [Plavix] 75 mg PO DAILY 02/08/18 07/29/18 History cyanocobalamin (vitamin B-12) 1,000 mcg PO DAILY 02/08/18 07/29/18 History [Vitamin B-12] famotidine 0 mg PO DAILY 02/08/18 07/29/18 History fluticasone-salmeterol [Advair 1 inh INHALATION Q12H PRN 02/08/18 07/29/18 History Diskus] gabapentin 300 mg PO TID 02/08/18 07/29/18 History hydrocodone-acetaminophen 1 tab PO Q8H PRN 02/08/18 07/29/18 History methocarbamol 500 mg PO TID 02/08/18 07/29/18 History metoclopramide HCl 0 mg PO DAILY 02/08/18 07/29/18 History montelukast 10 mg PO PM 02/08/18 07/29/18 History multivitamin 1 tab PO DAILY 02/08/18 07/29/18 History nortriptyline 150 mg PO HS 02/08/18 07/29/18 History pantoprazole 40 mg PO DAILY 02/08/18 07/29/18 History trazodone 0 mg PO HS 02/08/18 07/29/18 History duloxetine 0 mg PO DAILY 07/29/18 07/29/18 History quetiapine 400 mg PO DAILY 07/29/18 07/29/18 History sertraline 100 mg PO DAILY 07/29/18 07/29/18 History Past Med/Surg History Medical History Cellulitis of left leg (Acute) Chronic pain (Chronic) TIA (transient ischemic attack) (Chronic) Left leg weakness (Chronic) Acquired solitary kidney Acid reflux Allergic rhinitis Asthma CKD (chronic kidney disease) stage 3, GFR 30-59 ml/min Cellulitis Chronic back pain Depression Gout Hyperlipidemia Hypertension 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 Surgical History H/O total knee replacement H/O ventral hernia repair History of appendectomy History of cholecystectomy Social History 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 Ability: Effective 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 Beliefs That Will Affect Care: None marital status details: ; lives with parents & 1 daughter Current Living Situation: Family Current Living Situation Comment: Lives in [place] current occupational status: disabled Other Information That Helps Us Care for You: No other: 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; 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 Feels Safe at Home: Yes Safety Concerns: Feels Safe At This Time Smoking Status: Former smoker Hx Alcohol Use: No Hx Substance Use: No Review of Systems Constitutional: + weight gain (due to edema); no fever, no chills and no anorexia Eyes: no worsening vision Ear, Nose, Mouth, Throat: no sore throat and no dysphagia Respiratory: no dyspnea on exertion Cardiovascular: no chest pain Gastrointestinal: no abdominal pain, no nausea, no vomiting, no diarrhea/loose stools and no blood in stools Genitourinary (Female): no dysuria Musculoskeletal: + back pain (chronic) left leg pain - coles Integumentary: + rash and + erythema Neurologic: no localized weakness 2 strokes - lacunes Psychiatric: + depression and + anxiety no diabetes Hematologic / Lymphatic: no easy bleeding and no easy bruising Physical Exam Vital Signs (Past 24 Hours): Last Vital Signs Temp 36.7 C 07/29/18 14:49 Pulse 71 07/29/18 18:05 Resp 16 07/29/18 18:05 BP 115/47 L 07/29/18 18:05 Pulse Ox 97 07/29/18 18:05 Constitutional: + morbidly obese; no acute distress and not ill appearing Eyes: PERRL ENMT: external ear and nose normal, oropharynx normal Neck: trachea midline, no thyromegaly Respiratory: normal respiratory effort, lungs clear to auscultation Cardiovascular: Rate/Rhythm: regular rate and regular rhythm Heart Sounds: normal S1 and normal S2; no murmur Vessels: posterior tibial pulses present and dorsalis pedis pulses present; no JVD Extremities: + edema severe; 3+ on left leg/calf, 2+ on right leg Gastrointestinal (Abdomen): normal bowel sounds, soft, nontender, no hepatosplenomegaly Musculoskeletal: left ankle with mild warmth and ?synovitis; most tender to touch over lateral malleolus left knee - TKR scar; no warmth, swelling or pain with passive ROM Skin: mod-severe stasis changes of LLE extending from just below the left knee down to the ankle; there are some macerated areas; there is warmth Neurologic: deep tendon reflexes 2+ bilaterally and moves all extremities Psychiatric: A+Ox3, euthymic affect Lymphatic: no cervical lymphadenopathy Results & Data Laboratory Results Laboratory Results - last 24 hr 07/29/18 07/29/18 07/29/18 16:28 16:28 16:28 WBC 12.04 H RBC 4.40 Hgb 12.0 Hct 36.9 L MCV 83.9 MCH 27.3 MCHC 32.5 RDW Std Deviation 47.5 H RDW Coeff of Cleo 15.6 H Plt Count 239 MPV 9.6 Immature Gran % (Auto) 0.2 Neut % (Auto) 72.5 Lymph % (Auto) 19.3 [place] % (Auto) 6.1 Eos % (Auto) 1.7 Baso % (Auto) 0.2 Immature Gran # (Auto) 0.03 H Neut # (Auto) 8.73 H Lymph # (Auto) 2.32 [place] # (Auto) 0.74 H Eos # (Auto) 0.20 Baso # (Auto) 0.02 PT 10.9 INR 1.1 APTT 27.4 PTT Ratio 1.0 Sodium 141 Potassium 3.1 L Chloride 100 Carbon Dioxide 36 H Anion Gap 5.0 BUN 16 Creatinine 1.36 H Est Cr Clr Drug Dosing 86.1 Est GFR ( Amer) 50.6 Est GFR (Non-Af Amer) 43.7 BUN/Creatinine Ratio 11.5 Glucose 100 H Lactate Calcium 8.5 Total Bilirubin 0.4 AST 17 ALT 23 Alkaline Phosphatase 110 Total Protein 7.2 Albumin 3.3 L Globulin 3.9 Albumin/Globulin Ratio 0.9 07/29/18 16:28 WBC RBC Hgb Hct MCV MCH MCHC RDW Std Deviation RDW Coeff of Cleo Plt Count MPV Immature Gran % (Auto) Neut % (Auto) Lymph % (Auto) [place] % (Auto) Eos % (Auto) Baso % (Auto) Immature Gran # (Auto) Neut # (Auto) Lymph # (Auto) [place] # (Auto) Eos # (Auto) Baso # (Auto) PT INR APTT PTT Ratio Sodium Potassium Chloride Carbon Dioxide Anion Gap BUN Creatinine Est Cr Clr Drug Dosing Est GFR ( Amer) Est GFR (Non-Af Amer) BUN/Creatinine Ratio Glucose Lactate 1.5 Calcium Total Bilirubin AST ALT Alkaline Phosphatase Total Protein Albumin Globulin Albumin/Globulin Ratio Diagnostic Findings cxr - no infiltrates EKG - NSR, QTc prolongation, flattened anterolateral ST changes Code Status & VTE Plan Code Status level 1 full code VTE Prophylaxis Plan VTE Prophylaxis will be ordered: Yes (1) CVA (cerebral vascular accident) CVA mechanism: other Qualified Code(s): I63.8 - Other cerebral infarction (2) Hypertension Hypertension type: essential hypertension Qualified Code(s): I10 - Essential (primary) hypertension (3) Gout Gout site: unspecified site Gout etiology: unspecified cause Chronicity: chronic Presence of tophus: without tophus Qualified Code(s): M1A.9XX0 - Chronic gout, unspecified, without tophus (tophi) (4) Asthma Asthma severity: mild Asthma persistence: persistent Asthma complication type: uncomplicated Qualified Code(s): J45.30 - Mild persistent asthma, uncomplicated (5) Depression Depression Type: unspecified Qualified Code(s): F32.9 - Major depressive disorder, single episode, unspecified
[2018-07-29] MEDS ORDERED: METOCLOPRAMIDE HCL 5 MG TABLET PO PRN (21:00)
[2018-07-29] MEDS ORDERED: ALBUTEROL HFA 8 GM INHALER INH PRN (21:00)
[2018-07-29] MEDS ORDERED: METHOCARBAMOL 500 MG TABLET PO SCH (21:00)
[2018-07-29] MEDS ORDERED: ONDANSETRON INJ 2 MG/ML 2 ML VIAL IV PRN (21:00)
[2018-07-29] MEDS ORDERED: FLUTICASONE/SALMETEROL 250/50 (ADVAIR) 14 PUFF/1 INHALER INH PRN (21:00)
--- NOTE | 2018-07-29 21:27 | XRay Report ---
XR ankle LT 2V CLINICAL HISTORY: Ankle pain. COMPARISON: 02/08/2018 DISCUSSION: No acute fractures are visualized. There is mild bimalleolar soft tissue swelling. There is calcaneal spurring. There are mild degenerative changes. IMPRESSION: Mild soft tissue swelling. No acute fractures. Mild degenerative change. No evidence of e rosive disease. Electronically signed by: Parish Ramesh M.D. 07/29/2018 9:26 PM
[2018-07-29] MEDS: TRAZODONE HCL 50 MG TAB PO SCH (22:28)
[2018-07-29] MEDS: BusPIRone 15 MG TAB PO SCH (22:28)
[2018-07-29] MEDS: INDOMETHACIN 25 MG CAP PO SCH (22:29)
[2018-07-29] MEDS: GABAPENTIN 300 MG CAP PO SCH (22:29)
[2018-07-29] MEDS: ATORVASTATIN 40 MG TAB PO SCH (22:29)
[2018-07-29] MEDS: NORTRIPTYLINE HCL 25 MG CAP PO SCH (22:30)
[2018-07-29] MEDS: ALLOPURINOL 100 MG TAB PO SCH (22:33)
[2018-07-29] MEDS: MONTELUKAST SODIUM 10 MG TABLET PO SCH (22:33)
[2018-07-29] MEDS: CHOLECALCIFEROL 1,000 UNITS TAB PO SCH (22:33)
[2018-07-29] MEDS: METHOCARBAMOL 500 MG TABLET PO SCH (22:42)
[2018-07-29] MEDS: HYDROCODONE/ACETAMINOPHEN 10/325 TAB PO PRN (22:45)
--- NOTE | 2018-07-30 00:05 | Emergency Department Note ---
Entered by Ruth Hutson acting as a scribe for Jevon Ng MD History of Present Illness General Chief complaint: Swelling/Edema to Extremity Stated complaint: SWOLEN LEFT LEFT WITH SORES Time Seen by Provider: 07/29/18 15:57 Source: family (daughter) History of Present Illness Onset (ago): week(s) 1 Location: left (leg swelling) Pain Consistency: + other (worsening) Maximum Pain Intensity: 10 Relieved By: + none Associated symptoms: + denies other symptoms (new weakness, abdominal pain) and + other (left leg pain and left ankle pain); no chest pain, no fever/chills, no headaches, no nausea/vomiting and no shortness of breath The patient is a 57 year old F who presents to the Emergency Room with c omplaints of worsening left leg swelling starting 1 week ago. The majority of the HPI was provided by the patients daughter. She states that the patient was hospitalized 1 week ago for a left leg infection and was prescribed Doxycycline. She notes that the patients leg has been getting worse instead of getting better. She adds that the patient has fallen twice in the past two weeks. The patient states that she is currently experiencing leg pain and ankle pain. The patient denies that she is experiencing a fever, chest pain, shortness of breath, new weakness, abdominal pain, headache, nausea, and vomiting. The patients daughter adds that the patient has a history of a stroke 3 years ago, cellulitis, and chronic back problems. She states that the patient is currently on blood thinners. Home Medications Home Medications Medication Instructions Recorded Confirmed Type albuterol sulfate [Ventolin HFA] 2 puff INHALATION Q4H PRN 02/08/18 07/29/18 History allopurinol 0 mg PO BID 02/08/18 07/29/18 History amiloride 5 mg PO DAILY 02/08/18 07/29/18 History aspirin [Aspir-81] 81 mg PO DAILY 02/08/18 07/29/18 History atorvastatin 40 mg PO QPM 02/08/18 07/29/18 History bisoprolol fumarate 5 mg PO DAILY 02/08/18 07/29/18 History bumetanide 0 mg PO DAILY 02/08/18 07/29/18 History bupropion HCl 300 mg PO QAM 02/08/18 07/29/18 History buspirone 15 mg PO TID 02/08/18 07/29/18 History cholecalciferol (vitamin D3) 2,000 unit PO TID 02/08/18 07/29/18 History [Vitamin D3] clopidogrel [Plavix] 75 mg PO DAILY 02/08/18 07/29/18 History cyanocobalamin (vitamin B-12) 1,000 mcg PO DAILY 02/08/18 07/29/18 History [Vitamin B-12] famotidine 0 mg PO DAILY 02/08/18 07/29/18 History fluticasone-salmeterol [Advair 1 inh INHALATION Q12H PRN 02/08/18 07/29/18 History Diskus] gabapentin 300 mg PO TID 02/08/18 07/29/18 History hydrocodone-acetaminophen 1 tab PO Q8H PRN 02/08/18 07/29/18 History methocarbamol 500 mg PO TID 02/08/18 07/29/18 History metoclopramide HCl 0 mg PO DAILY 02/08/18 07/29/18 History montelukast 10 mg PO PM 02/08/18 07/29/18 History multivitamin 1 tab PO DAILY 02/08/18 07/29/18 History nortriptyline 150 mg PO HS 02/08/18 07/29/18 History pantoprazole 40 mg PO DAILY 02/08/18 07/29/18 History trazodone 0 mg PO HS 02/08/18 07/29/18 History duloxetine 0 mg PO DAILY 07/29/18 07/29/18 History quetiapine 400 mg PO DAILY 07/29/18 07/29/18 History sertraline 100 mg PO DAILY 07/29/18 07/29/18 History Allergies Allergy/AdvReac Type Severity Reaction Status Date / Time Corticosteroids Allergy Intermediate RASH Verified 07/29/18 18:00 (Glucocorticoids) morphine Allergy Intermediate MOUTH Verified 07/29/18 18:00 SWELLS/FACE SWELLS orange Allergy Intermediate HIVES Verified 07/29/18 18:00 Penicillins Allergy Intermediate RASH/HIVES Verified 07/29/18 18:00 prednisone Allergy Intermediate RED RASH Verified 07/29/18 18:00 pregabalin Allergy Intermediate GOOFY Verified 07/29/18 18:00 zolpidem Allergy Intermediate UNSURE Verified 07/29/18 18:00 Past Med/Surg History Medical History Cellulitis of left leg (Acute) Chronic pain (Chronic) TIA (transient ischemic attack) (Chronic) Left leg weakness (Chronic) Acquired solitary kidney Acid reflux Allergic rhinitis Asthma CKD (chronic kidney disease) stage 3, GFR 30-59 ml/min Cellulitis Chronic back pain Depression Gout Hyperlipidemia Hypertension 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 Surgical History H/O total knee replacement H/O ventral hernia repair History of appendectomy History of cholecystectomy Social History 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 Ability: Effective [employer] Required: No Beliefs That Will Affect Care: None marital status details: ; lives with parents & 1 daughter Current Living Situation: Family Current Living Situation Comment: Lives in [place] current occupational status: disabled Other Information That Helps Us Care for You: No other: worked in [employer] in [employer]; worked for [employer] district Feels Safe at Home: Yes Safety Concerns: Feels Safe At This Time Smoking Status: Former smoker Hx Alcohol Use: No Hx Substance Use: No Review of Systems See HPI for pertinent positives & negatives. and A total of 10 systems reviewed and were otherwise negative Physical Exam Vital Signs Vital Signs - 24 hr 07/29/18 14:49 07/29/18 16:09 07/29/18 17:18 Temperature 36.7 C Temperature Source Oral Sepsis Recent Fever Within 48 Hours No Sepsis New/Unexplained Change in Mental Status No Sepsis Action Taken by Nursing No Action Required Pulse Rate 86 84 Pulse Rate [Apical] 75 Respiratory Rate 18 18 Respiratory Effort / Characteristics Non-Labored Spontaneous Respiratory Depth Normal Respiratory Pattern Regular Blood Pressure 116/65 Blood Pressure [Left Arm] 122/70 Blood Pressure Mean 82 Blood Pressure Mean [Left Arm] 87 Blood Pressure Position Sitting Pulse Oximetry 94 96 94 Oxygen Delivery Method Room Air Room Air 07/29/18 18:05 07/29/18 19:44 07/29/18 20:42 Temperature Temperature Source Sepsis Recent Fever Within 48 Hours Sepsis New/Unexplained Change in Mental Status Sepsis Action Taken by Nursing Pulse Rate 69 Pulse Rate [Apical] 71 71 Respiratory Rate 16 18 20 Respiratory Effort / Characteristics Respiratory Depth Respiratory Pattern Blood Pressure 112/59 L Blood Pressure [Left Arm] 115/47 L 118/55 L Blood Pressure Mean Blood Pressure Mean [Left Arm] 69 76 Blood Pressure Position Pulse Oximetry 97 95 95 Oxygen Delivery Method Room Air Room Air Room Air 07/29/18 20:57 Temperature 36.4 C L Temperature Source Sepsis Recent Fever Within 48 Hours Sepsis New/Unexplained Change in Mental Status Sepsis Action Taken by Nursing Pulse Rate 77 Pulse Rate [Apical] Respiratory Rate 23 Respiratory Effort / Characteristics Respiratory Depth Respiratory Pattern Blood Pressure 146/84 H Blood Pressure [Left Arm] Blood Pressure Mean Blood Pressure Mean [Left Arm] Blood Pressure Position Pulse Oximetry 95 Oxygen Delivery Method General: Chronically-ill appearing older female in no acute distress. HEENT: Normal cephalic atraumatic. Pupils are equal round and reactive to light. Extraocular movements are intact. Oropharynx is pink with moist mucous membranes. No swelling of the mouth lips or tongue. Neck: Supple with a midline trachea. No meningeal signs or stiffness, no JVD or bruits. No Stridor. Chest: Clear to auscultation bilaterally. No wheezes or rhonchi. No increased work of breathing. Heart: regular rate and rhythm. Abdomen: Soft nontender, nondistended without rebound guarding or rigidity. Large pannus. Extremities: No cyanosis clubbing or edema. No calf tenderness or assymetry. Left lower extremity redness and swelling up to the knee. There is weeping. Normal pulses. Spine/Back. Non tender to palpation. No CVA tenderness Skin: Good turgor without rashes. Neurologic exam: Cranial nerves two through 12 are intact. Motor and sensation are intact and symmetrical throughout. Course 1601: Past medical records reviewed. The patient was evaluated in room C10, and a complete history and physical examination were performed. 1719: I re-evaluated the patient and updated her on her test results. The patients family does not feel that the patient is safe to go home. The patient will be admitted. 1731: I reviewed the patient's case with Dr. Bethea, [facility] Hospitalist. He will evaluate the patient for further management. Consultations Consultation #1: I reviewed the patient's case with Dr. Bethea [facility] Hospitalist. He will evaluate the patient for further management. Time: 17:31 Administered Medications Hydrocodone Bitart/Acetaminophen ([place] 10/325) 1 tab PO Q8H PRN PRN Reason: Pain Stop: 08/12/18 20:59 Last Admin: 07/29/18 22:45 Dose: 1 tab Documented by: [id number] Allopurinol (Zyloprim) 100 mg PO BID [facility] Stop: 08/28/18 20:59 Last Admin: 07/29/18 22:33 Dose: 100 mg Documented by: [id number] Atorvastatin Calcium (Lipitor) 40 mg PO QPM [facility] Stop: 08/28/18 20:59 Last Admin: 07/29/18 22:29 Dose: 40 mg Documented by: [id number] Buspirone HCl (Buspar) 15 mg PO TID [facility] Stop: 08/28/18 20:59 Last Admin: 07/29/18 22:28 Dose: 15 mg Documented by: [id number] Gabapentin (Neurontin) 300 mg PO TID [facility] Stop: 08/28/18 20:59 Last Admin: 07/29/18 22:29 Dose: 300 mg Documented by: [id number] Indomethacin (Indocin) 25 mg PO TID [facility] Stop: 08/28/18 20:59 Last Admin: 07/29/18 22:29 Dose: 25 mg Documented by: [id number] Methocarbamol (Robaxin) 500 mg PO TID [facility] Stop: 08/28/18 20:59 Last Admin: 07/29/18 22:42 Dose: 500 mg Documented by: [id number] Montelukast Sodium (Singulair) 10 mg PO PM [facility] Stop: 08/28/18 20:59 Last Admin: 07/29/18 22:33 Dose: 10 mg Documented by: [id number] Nortriptyline HCl (Pamelor) 150 mg PO HS [facility] Stop: 08/28/18 20:59 Last Admin: 07/29/18 22:30 Dose: 150 mg Documented by: [id number] Trazodone HCl (Desyrel) 150 mg PO HS [facility] Stop: 08/28/18 20:59 Last Admin: 07/29/18 22:28 Dose: 150 mg Documented by: [id number] Vitamin D (Vitamin D3) 2,000 units PO TID [facility] Stop: 08/28/18 20:59 Last Admin: 07/29/18 22:33 Dose: 2,000 units Documented by: [id number] Discontinued Medications Acetaminophen (Tylenol) 650 mg PO NOW STA Stop: 07/29/18 16:12 Last Admin: 07/29/18 16:33 Dose: 650 mg Documented by: [id number] Sodium Chloride (Nss 1000ml) 1,000 mls @ 999 mls/hr IV .Q1H1M ONE Stop: 07/29/18 17:09 Last Infusion: 07/29/18 20:04 Dose: 0 mls/hr Documented by: [id number] Infusion: 07/29/18 20:04 Dose: 0 mls/hr Documented by: [id number] Admin: 07/29/18 16:34 Dose: 999 mls/hr Documented by: [id number] Ceftriaxone Sodium 2,000 mg/ (Dextrose) 70 mls @ 140 mls/hr IV NOW STA Stop: 07/29/18 17:55 Last Infusion: 07/29/18 20:05 Dose: 0 mls/hr Documented by: [id number] Admin: 07/29/18 18:03 Dose: 140 mls/hr Documented by: [id number] Vancomycin HCl 2,750 mg/ (Sodium Chloride) 555 mls @ 200 mls/hr IV NOW STA Stop: 07/29/18 20:13 Last Infusion: 07/29/18 21:42 Dose: 0 mls/hr Documented by: [id number] Admin: 07/29/18 18:04 Dose: 200 mls/hr Documented by: [id number] Methocarbamol (Robaxin) 500 mg PO TID [facility]ARD[facility] Stop: 08/28/18 20:59 Last Admin: 07/29/18 22:59 Dose: Not Given Documented by: [id number] Medical Decision Making Differential Diagnosis Differential Diagnosis includes: cellulitis, sepsis, DVT, electrolyte or metabolic abnormality Medical Records Attestation: I reviewed the patient's medical records. Home Medications Current Medication List: was personally reviewed by me Laboratory Data Attestation: I reviewed the patient's lab results. Result diagrams: 07/29/18 16:28 07/29/18 16:28 Lab Results 07/29/18 07/29/18 07/29/18 Range/Units 16:28 16:28 16:28 WBC 12.04 H (4.8-10.8) K/uL RBC 4.40 (4.2-5.4) M/uL Hgb 12.0 (12.0-16.0) g/dL Hct 36.9 L (37-47) % MCV 83.9 (80-100) fL MCH 27.3 (25-34) pg MCHC 32.5 (32-36) g/dL RDW Std Deviation 47.5 H (36.4-46.3) fL RDW Coeff of Cleo 15.6 H (11.5-14.5) % Plt Count 239 (130-400) K/uL MPV 9.6 (7.4-10.4) fL Immature Gran % (Auto) 0.2 % Neut % (Auto) 72.5 % Lymph % (Auto) 19.3 % [place] % (Auto) 6.1 % Eos % (Auto) 1.7 % Baso % (Auto) 0.2 % Immature Gran # (Auto) 0.03 H (0.00-0.02) K/uL Neut # (Auto) 8.73 H (1.4-6.5) K/uL Lymph # (Auto) 2.32 (1.2-3.4) K/uL [place] # (Auto) 0.74 H (0.11-0.59) K/uL Eos # (Auto) 0.20 (0-0.5) K/uL Baso # (Auto) 0.02 (0-0.2) K/uL PT 10.9 (9.0-12.0) Seconds INR 1.1 (0.9-1.1) APTT 27.4 (21.0-31.0) Seconds PTT Ratio 1.0 Sodium 141 (136-145) mmol/L Potassium 3.1 L (3.5-5.1) mmol/L Chloride 100 (98-107) mmol/L Carbon Dioxide 36 H (21-32) mmol/L Anion Gap 5.0 (3-11) BUN 16 (7-18) mg/dl Creatinine 1.36 H (0.6-1.2) mg/dl Est Cr Clr Drug Dosing 86.1 ml/min Est GFR ( Amer) 50.6 Est GFR (Non-Af Amer) 43.7 BUN/Creatinine Ratio 11.5 (10-20) Glucose 100 H (70-99) mg/dl Lactate (0.4-2.0) mmol/L Calcium 8.5 (8.5-10.1) mg/dl Total Bilirubin 0.4 (0.2-1) mg/dl AST 17 (15-37) U/L ALT 23 (12-78) U/L Alkaline Phosphatase 110 (45-117) U/L Total Protein 7.2 (6.4-8.2) gm/dl Albumin 3.3 L (3.4-5.0) gm/dl Globulin 3.9 (2.5-4.0) gm/dl Albumin/Globulin Ratio 0.9 (0.9-2) 07/29/18 Range/Units 16:28 WBC (4.8-10.8) K/uL RBC (4.2-5.4) M/uL Hgb (12.0-16.0) g/dL Hct (37-47) % MCV (80-100) fL MCH (25-34) pg MCHC (32-36) g/dL RDW Std Deviation (36.4-46.3) fL RDW Coeff of Cleo (11.5-14.5) % Plt Count (130-400) K/uL MPV (7.4-10.4) fL Immature Gran % (Auto) % Neut % (Auto) % Lymph % (Auto) % [place] % (Auto) % Eos % (Auto) % Baso % (Auto) % Immature Gran # (Auto) (0.00-0.02) K/uL Neut # (Auto) (1.4-6.5) K/uL Lymph # (Auto) (1.2-3.4) K/uL [place] # (Auto) (0.11-0.59) K/uL Eos # (Auto) (0-0.5) K/uL Baso # (Auto) (0-0.2) K/uL PT (9.0-12.0) Seconds INR (0.9-1.1) APTT (21.0-31.0) Seconds PTT Ratio Sodium (136-145) mmol/L Potassium (3.5-5.1) mmol/L Chloride (98-107) mmol/L Carbon Dioxide (21-32) mmol/L Anion Gap (3-11) BUN (7-18) mg/dl Creatinine (0.6-1.2) mg/dl Est Cr Clr Drug Dosing ml/min Est GFR ( Amer) Est GFR (Non-Af Amer) BUN/Creatinine Ratio (10-20) Glucose (70-99) mg/dl Lactate 1.5 (0.4-2.0) mmol/L Calcium (8.5-10.1) mg/dl Total Bilirubin (0.2-1) mg/dl AST (15-37) U/L ALT (12-78) U/L Alkaline Phosphatase (45-117) U/L Total Protein (6.4-8.2) gm/dl Albumin (3.4-5.0) gm/dl Globulin (2.5-4.0) gm/dl Albumin/Globulin Ratio (0.9-2) Imaging Data Radiologist's Impression: Radiology results as stated below per my review and the radiologist's interpretation: XR chest 1V portable CLINICAL HISTORY: weakness LEFT LEG CELLULITIS COMPARISON STUDY: 10/11/2017 FINDINGS: The cardiac and mediastinal contours remain stable. There is no focal pulmonary consolidation. Slight interstitial prominence is likely secondary to technical factors given the patient's body habitus. This remain stable.[ IMPRESSION: No active disease in the chest. Electronically signed by: Parsih Ramesh M.D. 07/29/2018 4:27 PM ECG Data Attestation: I personally reviewed and interpreted this ECG as follows: Indication: other (leg swelling) Rate (beats per minute): 83 Rhythm: normal sinus Findings: no acute ischemic change and no ectopy Comparison ECG Date: from (10/11/17) Change: no significant change Blood Pressure Blood Pressure Findings: Low blood pressure Blood Pressure Disposition: further management by hospitalist [facility] Narrative This patient comes in as described above. she has a red left lower extremity consistent with cellulitis .she has had recurrent cellulitis in this leg. She was seen about a week ago and put on doxycycline and despite this is not getting any better she saw Dr. Luo, her infectious disease specialist sent her to the ER. IV access established her white count is mildly elevated. She has no significant electrolyte abnormalities. She does have baseline renal insufficiency. She has no neurologic deficits in the leg. There is no crepitus. I have reviewed her past medical history, we did give her IV Rocephin as well as IV vancomycin blood cultures were obtained. I did talk to the dru nunez's and the family about possibly using [facility] as outpatient treatment however they feel that she is too weak and she keeps falling and given her weakness and inability to care for self, I feel that inpatient treatment is most appropriate the family agrees I have consulted the hospitalist to see her in the ER for these measures. Impression & Plan Cellulitis of left lower leg, Weakness, Platelet inhibition due to Plavix, Leg pain, left Discharge Plan Visit Data *Final* Discharge Date/Time: 07/29/18 20:42 Chief Complaint: Swelling/Edema to Extremity Stated Complaint: SWOLEN LEFT LEFT WITH SORES ED Provider: Jevon Ng Discharge Problem: Cellulitis of left lower leg, Weakness, Platelet inhibition due to Plavix, Leg pain, left Patient Disposition: Admitted As Inpatient Discharge Instructions Interventions: ED Discharge Assessment Last Done: 07/29/18 20:42 The scribe's documentation has been prepared under my direction and personally reviewed by me in its entirety. I confirm that the note above accurately reflects all work, treatment, procedures, and medical decision making performed by me.
[2018-07-30] MEDS ORDERED: VANCOMYCIN CONSULT ACTIVE PRN (00:21)
[2018-07-30] MEDS ORDERED: POTASSIUM CHLORIDE 10 MEQ TABCR PO STA ×2 (00:25→08:00)
[2018-07-30] MEDS ORDERED: VANCOMYCIN HCL 2,750 MG in SODIUM CHLORIDE 0.9% 500 ML IV ONE (01:00)
[2018-07-30 07:29] LABS: BUN Creatinine Ratio 11.8 (10-20); Calcium 8.1 mg/dl (8.5-10.1); Creatinine Clr Calc Pharmacy 106.5 ml/min; Est GFR (African American) 65.5; Est GFR (Non-African American) 56.5; Magnesium 1.7 mg/dl (1.8-2.4); Potassium 3.3 mmol/L (3.5-5.1)
[2018-07-30 07:34] LABS: Uric Acid 8.7 mg/dl (2.6-7.2)
[2018-07-30] MEDS ORDERED: MAGNESIUM SULFATE / D5W 1 GM/100 ML BAG IV ONE (08:15)
[2018-07-30] MEDS: INDOMETHACIN 25 MG CAP PO SCH ×3 (08:33→20:14)
[2018-07-30] MEDS: BusPIRone 15 MG TAB PO SCH ×3 (08:34→20:14)
[2018-07-30] MEDS: CHOLECALCIFEROL 1,000 UNITS TAB PO SCH ×3 (08:34→20:17)
[2018-07-30] MEDS: ALLOPURINOL 100 MG TAB PO SCH ×2 (08:34→20:17)
[2018-07-30] MEDS: CYANOCOBALAMIN 500 MCG TABLET (VITAMIN B-12) PO SCH (08:35)
[2018-07-30] MEDS: QUETIAPINE FUMARATE 200 MG TAB PO SCH (08:35)
[2018-07-30] MEDS: SERTRALINE HCL 100 MG TABLET PO SCH (08:36)
[2018-07-30] MEDS: METOPROLOL SUCC 50MG EXT REL TAB PO SCH (08:36)
[2018-07-30] MEDS: PANTOprazole 40 MG TAB PO SCH (08:36)
[2018-07-30] MEDS: GABAPENTIN 300 MG CAP PO SCH ×3 (08:37→20:15)
[2018-07-30] MEDS: BUMETANIDE 1 MG TAB PO SCH (08:37)
[2018-07-30] MEDS: BuPROPion XL 300 MG TABCR PO SCH (08:38)
[2018-07-30] MEDS: FAMOTIDINE 20 MG TAB PO SCH (08:38)
[2018-07-30] MEDS: DULOXETINE HCL 30 MG CAP PO SCH (08:38)
[2018-07-30] MEDS: MULTIVITAMIN TAB PO SCH (08:38)
[2018-07-30] MEDS: METHOCARBAMOL 500 MG TABLET PO SCH ×3 (08:39→20:17)
[2018-07-30] MEDS: ENOXAPARIN INJ 40 MG/0.4 ML SYR SQ SCH (08:39)
[2018-07-30] MEDS: ASPIRIN 81 MG ECTAB PO SCH (08:41)
[2018-07-30] MEDS: POTASSIUM CHLORIDE 20 MEQ TABCR PO SCH ×3 (08:43→20:15)
[2018-07-30] MEDS: CLOPIDOGREL BISULFATE 75 MG TAB PO SCH (08:46)
[2018-07-30] MEDS: MAGNESIUM OXIDE 400 MG TAB PO SCH ×2 (08:46→20:15)
[2018-07-30] MEDS ORDERED: NON-FORMULARY MEDICATION (Bisoprolol Fumarate 5 MG) PO SCH (09:00)
[2018-07-30] MEDS ORDERED: AMILORIDE 5 MG PO SCH (09:00)
--- NOTE | 2018-07-30 10:56 | Hospitalist Progress Note ---
Date of Service July 30, 2018 Assessment & Plan (1) Cellulitis of left lower leg: (2) CVA (cerebral vascular accident): (3) Hypertension: (4) Gout: (5) Asthma: (6) Depression: (7) Morbid obesity with BMI of 50.0-59.9, adult: (8) Hypokalemia: (9) Lymphedema: (10) Prolonged QT interval: (11) DVT prophylaxis: 57-year-old female admitted because of left lower extremity cellulitis failed outpatient treatment Significant past medical history of cellulitis, MRSA, CVA, hypertension, gout, asthma, CKD, depression, TIA, Cellulitis of left lower leg: failed outpatient Rx with PO doxycycline. History of MRSA Significant improvement after IV Rocephin and vancomycin, will continue current antibiotic, follow-up culture and sensitivities, We will follow-up consult from ID, Patient would really benefit from lymphedema treatment as an outpatient. Has ordered a Doppler ultrasound to rule out DVT PTOT, raise lower extremity when in bed (History of CVA, hypertension, gout, will continue current medication include aspirin and Plavix, Asthma: Stable, continue home inhalers. Depression, morbid obesity, BMI 57, stable continue current medication, DVT prophylaxis: Lovenox, Obtain PT OT consultations while here as the patient reports weakness. Subjective Constitutional: + weight gain (due to edema); no fever, no chills and no anorexia Musculoskeletal: + back pain (chronic) Integumentary: + rash and + erythema Psychiatric: + depression and + anxiety Physical Exam Vital Signs (Past 24 Hours): Last Vital Signs Temp 36.6 C 07/30/18 07:33 Pulse 70 07/30/18 07:33 Resp 20 07/30/18 07:33 BP 122/68 07/30/18 07:33 Pulse Ox 94 07/30/18 07:33 (1) CVA (cerebral vascular accident) CVA mechanism: other Qualified Code(s): I63.8 - Other cerebral infarction (2) Hypertension Hypertension type: essential hypertension Qualified Code(s): I10 - Essential (primary) hypertension (3) Gout Gout site: unspecified site Gout etiology: unspecified cause Chronicity: chronic Presence of tophus: without tophus Qualified Code(s): M1A.9XX0 - Chronic gout, unspecified, without tophus (tophi) (4) Asthma Asthma severity: mild Asthma persistence: persistent Asthma complication type: uncomplicated Qualified Code(s): J45.30 - Mild persistent asthma, uncomplicated (5) Depression Depression Type: unspecified Qualified Code(s): F32.9 - Major depressive disorder, single episode, unspecified
[2018-07-30] MEDS: VANCOMYCIN HCL 2,000 MG in SODIUM CHLORIDE 0.9% 500 ML IV SCH (11:56)
--- NOTE | 2018-07-30 14:58 | Ultrasound Report ---
ULTRASOUND LEFT LOWER EXTREMITY VENOUS CLINICAL HISTORY: Left lower extremity edema and cellulitis. COMPARISON STUDY: Left lower extremity venous ultrasound dated 02/08/2018. TECHNIQUE: Real-time, grayscale, and color Doppler sonography of the deep veins of the left lower ext remity was performed from the inguinal crease to the calf. Compression and augmentation were utilized . The examination is degraded by large body habitus. FINDINGS: There is no sonographic evidence of deep venous thrombosis identified in the left lower ext remity. The common femoral, superficial femoral, and popliteal veins are patent and normally compress ible. The greater saphenous vein and the profunda femoris vein at the junction with the common femora l vein are clear. The calf vessels were not visualized. Soft tissue edema is noted in the calf. IMPRESSION: There is no sonographic evidence of above knee deep venous thrombosis identified in the l eft lower extremity. The calf vessels were not visualized. Electronically signed by: Will Hussein M.D. 07/30/2018 2:57 PM
--- NOTE | 2018-07-30 15:03 | Pharmacy Report ---
Pharmacy Abx Initial Consult - Date of Service July 30, 2018 - Pharmacy Dosing Scope Date of Consult: 07/30/18 Consultation requested by: Dr. Bethea. Pharmacy is consulted to initiate Vancomycin IV dosing therapy, order appropriate labs and adjust drug dose/frequency. - Subjective The patient is a 57 year old F admitted on 07/29/18 19:24. - Objective Height: 5 ft 11 in Weight: 185.6 kg Vital Signs (Past 12hrs): Vital Signs Temp Pulse Resp BP Pulse Ox 07/30/18 07:33 36.6 C 70 20 122/68 94 Lab Results (24hrs): Laboratory Tests (24 Hours) 07/30/18 07/29/18 07/29/18 06:32 16:28 16:28 WBC 12.04 H Neut # (Auto) 8.73 H Creatinine 1.10 1.36 H Est Cr Clr Drug Dosing 106.5 86.1 Micro Results: 07/29/18 16:31 Blood Culture - Pending Blood 07/29/18 16:28 Blood Culture - Pending Blood - Assessment & Plan Assessment * 57 year old F with obesity (BMI > 57 kg/m2) admitted for LLE Cellulitis. * Patient is allergic to Penicillins = rash/hives. Plan Vancomycin ordered for treatment of Cellulitis. Vancomycin IV * Estimated PK Parameters: Vd 0.55 L/kg, Raj 0.093 hr-1, t1/2 7.5 hr * Loading dose: Vancomycin 2750 mg (15 mg/kg) given twice, 8 hrs apart. * Maintenance dose: Vancomycin 2000 mg IV (10.8 mg/kg) every 12 hours * Goal trough level for Cellulitis: 12 to 20 mcg/mL * Trough Vanco level ordered for 07/31/18 before dose at 1200 * A less than traditional dose has been selected due to likelihood of drug accumulation in obese patient. Pharmacy will continue to follow and will adjust dose/frequency as necessary. Thank you.
[2018-07-30] MEDS: HYDROCODONE/ACETAMINOPHEN 10/325 TAB PO PRN (15:51)
[2018-07-30] MEDS: cefTRIAXone SODIUM 2,000 MG in DEXTROSE 5% 50 ML IV SCH (17:58)
[2018-07-30] MEDS: TRAZODONE HCL 50 MG TAB PO SCH (20:14)
[2018-07-30] MEDS: NORTRIPTYLINE HCL 25 MG CAP PO SCH (20:15)
[2018-07-30] MEDS: ATORVASTATIN 40 MG TAB PO SCH (20:15)
[2018-07-30] MEDS: MONTELUKAST SODIUM 10 MG TABLET PO SCH (20:17)
[2018-07-31] MEDS: HYDROCODONE/ACETAMINOPHEN 10/325 TAB PO PRN ×2 (00:10→17:58)
[2018-07-31] MEDS: VANCOMYCIN HCL 2,000 MG in SODIUM CHLORIDE 0.9% 500 ML IV SCH ×2 (00:12→12:04)
[2018-07-31 06:50] LABS: Basophils # (auto) 0.01 K/uL (0-0.2); Basophils % (auto) 0.1 %; Eosinophils # (auto) 0.25 K/uL (0-0.5); Hematocrit (blood only) 34.7 % (37-47); Hemoglobin 10.8 g/dL (12.0-16.0); Immature Granulocytes # (auto) 0.02 K/uL (0.00-0.02); Immature Granulocytes % (auto) 0.2 %; Lymphocytes # (auto) 2.04 K/uL (1.2-3.4); Lymphocytes % (auto) 24.9 %; Mean Corpuscular Hgb Conc 31.1 g/dL (32-36); Mean Corpuscular Volume 85.3 fL (80-100); Mean Platelet Volume 9.8 fL (7.4-10.4); Monocytes # (auto) 0.48 K/uL (0.11-0.59); Monocytes % (auto) 5.9 %; Neutrophils % (auto) 65.9 %; Platelet Count 216 K/uL (130-400); RDW Coefficient of Variation 15.7 % (11.5-14.5); Red Blood Count 4.07 M/uL (4.2-5.4)
[2018-07-31 07:24] LABS: BUN Creatinine Ratio 12.5 (10-20); Creatinine Clr Calc Pharmacy 103.6 ml/min; Est GFR (African American) 63.4; Est GFR (Non-African American) 54.7; Magnesium 2.2 mg/dl (1.8-2.4); Potassium 3.6 mmol/L (3.5-5.1)
[2018-07-31] MEDS: CHOLECALCIFEROL 1,000 UNITS TAB PO SCH ×3 (09:29→20:40)
[2018-07-31] MEDS: MULTIVITAMIN TAB PO SCH (09:29)
[2018-07-31] MEDS: GABAPENTIN 300 MG CAP PO SCH ×3 (09:29→20:39)
[2018-07-31] MEDS: CLOPIDOGREL BISULFATE 75 MG TAB PO SCH (09:30)
[2018-07-31] MEDS: POTASSIUM CHLORIDE 20 MEQ TABCR PO SCH ×3 (09:30→20:38)
[2018-07-31] MEDS: PANTOprazole 40 MG TAB PO SCH (09:30)
[2018-07-31] MEDS: CYANOCOBALAMIN 500 MCG TABLET (VITAMIN B-12) PO SCH (09:30)
[2018-07-31] MEDS: DULOXETINE HCL 30 MG CAP PO SCH (09:30)
[2018-07-31] MEDS: ALLOPURINOL 100 MG TAB PO SCH ×2 (09:30→20:40)
[2018-07-31] MEDS: BusPIRone 15 MG TAB PO SCH ×3 (09:30→20:38)
[2018-07-31] MEDS: SERTRALINE HCL 100 MG TABLET PO SCH (09:30)
[2018-07-31] MEDS: BUMETANIDE 1 MG TAB PO SCH (09:30)
[2018-07-31] MEDS: INDOMETHACIN 25 MG CAP PO SCH ×3 (09:31→20:38)
[2018-07-31] MEDS: MAGNESIUM OXIDE 400 MG TAB PO SCH ×2 (09:31→20:39)
[2018-07-31] MEDS: ASPIRIN 81 MG ECTAB PO SCH (09:31)
[2018-07-31] MEDS: FAMOTIDINE 20 MG TAB PO SCH (09:31)
[2018-07-31] MEDS: BuPROPion XL 300 MG TABCR PO SCH (09:32)
[2018-07-31] MEDS: METOPROLOL SUCC 50MG EXT REL TAB PO SCH (09:32)
[2018-07-31] MEDS: METHOCARBAMOL 500 MG TABLET PO SCH ×3 (09:32→20:46)
[2018-07-31] MEDS: ENOXAPARIN INJ 40 MG/0.4 ML SYR SQ SCH (09:33)
--- NOTE | 2018-07-31 09:35 | Hospitalist Progress Note ---
Date of Service July 31, 2018 Assessment & Plan (1) Cellulitis of left lower leg: (2) CVA (cerebral vascular accident): (3) Hypertension: (4) Gout: (5) Asthma: (6) Depression: (7) Morbid obesity with BMI of 50.0-59.9, adult: (8) Hypokalemia: (9) Lymphedema: (10) Prolonged QT interval: (11) DVT prophylaxis: 57-year-old female admitted because of left lower extremity cellulitis failed outpatient treatment Significant past medical history of cellulitis, MRSA, CVA, hypertension, gout, asthma, CKD, depression, TIA, Cellulitis of left lower leg: failed outpatient Rx with PO doxycycline. History of MRSA ContinueSignificant improvement after IV Rocephin and vancomycin, will continue current antibiotic, follow-up culture and sensitivities, Possible discontinue Rocephin continue Vanco, and oral Zyvox to home follow-up consult from ID, Patient would really benefit from lymphedema treatment as an outpatient. Has ordered a Doppler ultrasound , which has rule out DVT PTOT, raise lower extremity when in bed History of CVA, hypertension, gout, will continue current medication include aspirin and Plavix, Asthma: Stable, continue home inhalers. Depression, morbid obesity, BMI 57, stable continue current medication, DVT prophylaxis: Lovenox, cont PT OT consultations while here as the patient reports weakness. Patient expressed intention to go to rehab Subjective Generally doing well, left lower extremity erythema and hot is obvious improving, the size of Erythema is diminishing, no fever, no chills and no anorexia Mild back pain chronic which is not new Denies fever and chill, Denies cough sputum Denies dysuria urgency and frequency Physical Exam Vital Signs (Past 24 Hours): Last Vital Signs Temp 36.4 C L 07/31/18 07:50 Pulse 66 07/31/18 07:50 Resp 18 07/31/18 07:50 BP 132/78 07/31/18 07:50 Pulse Ox 95 07/31/18 07:50 Physical Exam: Constitutional, Pleasant,Conversational, no acute distress and not ill appearing Eyes, PERRL ENMT, external ear and nose normal, oropharynx normal, trachea midline, no thyromegaly Respiratory, normal respiratory effort, lungs clear to auscultation Cardiovascular: Rate/Rhythm: regular rate and regular rhythm Heart Sounds: normal S1 and normal S2; no murmur Extremities: Left lower extremity+ edema, Seems better than yesterday, Less erythema less hot,The borderline of erythema has been diminished, A few Superficial skin breakdown in different place, measuring 0.5-1 cm,The posterior superficial skin breakdown has minimal drainage , otherwise others no drainage Gastrointestinal (Abdomen) normal bowel sounds, soft, nontender, no hepatosplenomegaly left knee - TKR scar; no warmth, swelling or pain with passive ROM Skin Psychiatric A+Ox3, euthymic affect Neurological evaluation cranial nerves II through XII was intact no deficit Results & Data Laboratory Results Laboratory Results - last 24 hr 07/31/18 07/31/18 06:17 06:17 WBC 8.20 RBC 4.07 L Hgb 10.8 L Hct 34.7 L MCV 85.3 MCH 26.5 MCHC 31.1 L RDW Std Deviation 49.0 H RDW Coeff of Cleo 15.7 H Plt Count 216 MPV 9.8 Immature Gran % (Auto) 0.2 Neut % (Auto) 65.9 Lymph % (Auto) 24.9 [place] % (Auto) 5.9 Eos % (Auto) 3.0 Baso % (Auto) 0.1 Immature Gran # (Auto) 0.02 Neut # (Auto) 5.40 Lymph # (Auto) 2.04 [place] # (Auto) 0.48 Eos # (Auto) 0.25 Baso # (Auto) 0.01 Sodium 140 Potassium 3.6 Chloride 104 Carbon Dioxide 32 Anion Gap 4.0 BUN 14 Creatinine 1.13 Est Cr Clr Drug Dosing 103.6 Est GFR ( Amer) 63.4 Est GFR (Non-Af Amer) 54.7 BUN/Creatinine Ratio 12.5 Glucose 98 Calcium 8.0 L Magnesium 2.2 Microbiology 07/29/18 16:31 Blood Blood Culture - Preliminary No growth to date. 07/29/18 16:28 Blood Blood Culture - Preliminary No growth to date. (1) CVA (cerebral vascular accident) CVA mechanism: other Qualified Code(s): I63.8 - Other cerebral infarction (2) Hypertension Hypertension type: essential hypertension Qualified Code(s): I10 - Essential (primary) hypertension (3) Gout Gout site: unspecified site Gout etiology: unspecified cause Chronicity: chronic Presence of tophus: without tophus Qualified Code(s): M1A.9XX0 - Chronic gout, unspecified, without tophus (tophi) (4) Asthma Asthma severity: mild Asthma persistence: persistent Asthma complication type: uncomplicated Qualified Code(s): J45.30 - Mild persistent asthma, uncomplicated (5) Depression Depression Type: unspecified Qualified Code(s): F32.9 - Major depressive disorder, single episode, unspecified
[2018-07-31] MEDS ORDERED: Nursing to Pharmacy 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 ONE (09:57)
[2018-07-31] MEDS ORDERED: VANCOMYCIN TROUGH ONE (11:30)
--- NOTE | 2018-07-31 15:21 | Pharmacy Report ---
Pharmacy Abx Dose Progress Nt - Date of Service July 31, 2018 - Pharmacy Dosing Scope The patient was receiving the following antimicrobial agents per Pharmacy consult: Vancomycin 2000 mg IV every 12 hours - Objective Vital Signs (Past 12hrs): Vital Signs Temp Pulse Resp BP Pulse Ox 07/31/18 07:50 36.4 C L 66 18 132/78 95 Lab Results (24hrs): Laboratory Tests (24 Hours) 07/31/18 07/31/18 07/31/18 11:25 06:17 06:17 WBC 8.20 Neut # (Auto) 5.40 Creatinine 1.13 Est Cr Clr Drug Dosing 103.6 Vancomycin Trough 23.5 - Risk Factors for Resistance * History of infection with a multidrug-resistant organism: MRSA - Assessment & Plan Assessment * 57 year old F receiving Vancomycin and Rocephin for treatment of LLE Cellu litis. * Day # 3 of antimicrobial therapy * Patient is morbidly obese- BMI = 57 kg/m2 * Blood cultures obtained 07/29 show no growth to date. * Patient has a history of MRSA infection per Dr. Quiñonez's notes. * Vanco level was obtained today before the 3rd maintenance dose even though not at steady state d/t patient being obese and at high risk for accumulation. * Trough = 23.5 mcg/ml was higher than goal as anticipated. Vancomycin dose was started before it could be held and then stopped 1.5 hrs into the infusion. Patient received around 1100 mg of Vanco today at noon. Plan Vancomycin IV * Trough level of 23.5 mcg/mL is supratherapeutic. * Vancomycin on hold for now. Will re-assess tomorrow after we obtain a random Vanco level with AM labs. * Goal trough level for Cellulitis: 12-20 mcg/mL * Will possibly extend interval of Vancomycin dosing based on level tomorrow. Pharmacy will continue to follow and will adjust dose/frequency as necessary. Thank you.
[2018-07-31] MEDS: cefTRIAXone SODIUM 2,000 MG in DEXTROSE 5% 50 ML IV SCH (17:59)
[2018-07-31] MEDS: TRAZODONE HCL 50 MG TAB PO SCH (20:38)
[2018-07-31] MEDS: MICONAZOLE NITRATE POWDER 43 GM EXT PRN (20:38)
[2018-07-31] MEDS: QUETIAPINE FUMARATE 200 MG TAB PO SCH (20:39)
[2018-07-31] MEDS: ATORVASTATIN 40 MG TAB PO SCH (20:39)
[2018-07-31] MEDS: NORTRIPTYLINE HCL 25 MG CAP PO SCH (20:39)
[2018-07-31] MEDS: MONTELUKAST SODIUM 10 MG TABLET PO SCH (20:40)
[2018-08-01] MEDS: QUETIAPINE FUMARATE 200 MG TAB PO SCH ×2 (06:58→21:21)
[2018-08-01] MEDS: ALLOPURINOL 100 MG TAB PO SCH ×2 (07:46→21:21)
[2018-08-01] MEDS: CLOPIDOGREL BISULFATE 75 MG TAB PO SCH (07:46)
[2018-08-01] MEDS: BuPROPion XL 300 MG TABCR PO SCH (07:46)
[2018-08-01] MEDS: GABAPENTIN 300 MG CAP PO SCH ×3 (07:46→21:21)
[2018-08-01] MEDS: SERTRALINE HCL 100 MG TABLET PO SCH (07:46)
[2018-08-01] MEDS: PANTOprazole 40 MG TAB PO SCH (07:46)
[2018-08-01] MEDS: CYANOCOBALAMIN 500 MCG TABLET (VITAMIN B-12) PO SCH (07:46)
[2018-08-01] MEDS: CHOLECALCIFEROL 1,000 UNITS TAB PO SCH ×3 (07:46→21:21)
[2018-08-01] MEDS: MULTIVITAMIN TAB PO SCH (07:46)
[2018-08-01] MEDS: METOPROLOL SUCC 50MG EXT REL TAB PO SCH (07:46)
[2018-08-01] MEDS: BUMETANIDE 1 MG TAB PO SCH (07:47)
[2018-08-01] MEDS: FAMOTIDINE 20 MG TAB PO SCH (07:47)
[2018-08-01] MEDS: ASPIRIN 81 MG ECTAB PO SCH (07:47)
[2018-08-01] MEDS: MAGNESIUM OXIDE 400 MG TAB PO SCH ×2 (07:47→21:20)
[2018-08-01] MEDS: DULOXETINE HCL 30 MG CAP PO SCH (07:47)
[2018-08-01] MEDS: POTASSIUM CHLORIDE 20 MEQ TABCR PO SCH ×3 (07:47→21:20)
[2018-08-01] MEDS: ENOXAPARIN INJ 40 MG/0.4 ML SYR SQ SCH (07:48)
[2018-08-01] MEDS: BusPIRone 15 MG TAB PO SCH ×3 (07:48→21:20)
[2018-08-01] MEDS: INDOMETHACIN 25 MG CAP PO SCH ×3 (07:48→21:20)
[2018-08-01] MEDS: METHOCARBAMOL 500 MG TABLET PO SCH ×3 (07:48→21:22)
[2018-08-01] MEDS: HYDROCODONE/ACETAMINOPHEN 10/325 TAB PO PRN ×2 (08:24→16:13)
[2018-08-01 09:13] LABS: Creatinine Clr Calc Pharmacy 93.9 ml/min; Est GFR (Non-African American) 46.6
--- NOTE | 2018-08-01 10:43 | Pharmacy Report ---
Pharmacy Abx Dose Short Note - Date of Service August 01, 2018 - Assessment & Plan Laboratory Tests 07/31/18 08/01/18 11:25 08:05 Vancomycin Trough 23.5 Random Vancomycin 14.7 Assessment 57 year old F receiving Vancomycin for treatment of LLE cellulitis Day #4 of antimicrobial therapy. Plan Vancomycin * Trough level of 14.7 mcg/mL is therapeutic * Trough level yesterday was 23.5 mcg/mL. Patient received majority of the next scheduled Vanco dose, which would have brought the level up to ~35 mcg/mL. Based on the 2 levels, new calculated half-life is 17 hours. * Change to 2000 mg IV every 20 hours. Patient is expected to accumulate, so extended the dosing interval. * Goal trough level for Cellulitis : ~15 mcg/mL * Trough level ordered for: 08/03/18 at 0230 Pharmacy will continue to follow and will adjust dose/frequency as necessary. Thank you.
[2018-08-01] MEDS: VANCOMYCIN HCL 2,000 MG in SODIUM CHLORIDE 0.9% 500 ML IV SCH (11:24)
--- NOTE | 2018-08-01 17:43 | Hospitalist Progress Note ---
Date of Service August 01, 2018 Assessment & Plan (1) Cellulitis of left lower leg: - Ongoing issue and failed outpatient Doxycycline; follows with ID - Dr. Luo - Initially treated with Rocephin 2 g IV daily and Vancomycin - will convert to just Vancomycin - Reviewed outpatient records and discussed with Dr. Luo - was working process for starting Dalvance she is not sure where in the process this is but her office did start this -- Recommendation was to continue Vancomycin for now with conversion to this - this cannot be given in the hospital and likely either through [facility] vs home infusion and likely needs approval and insurance assessment - Likely will need a US guided peripheral line vs PICC - could continue Vancomycin while in SNF for rehab and close ID follow-up to set up Dalvance Present on Admission?: Yes (2) CVA (cerebral vascular accident): - History of 2 lacunar infarcts. No significant residual deficits. Continue aspirin and Plavix for secondary prevention. Present on Admission?: Yes (3) Hypertension: - STABLE - Toprol XL 50 mg daily Present on Admission?: Yes (4) Gout: - Possible gout flare - uric acid was 8.7 on admission; Can continue Indomethacin 25 mg TID - Allopurinol 100 mg BID Present on Admission?: Yes (5) Asthma: - No current exacerbation - Albuterol PRN; Fluticasone/Salmeterol BID; Montelukast 10 mg daily Present on Admission?: Yes (6) Depression: - STABLE - Bupropion 300 mg AM; Buspirone 15 mg TID; Duloxetine 30 mg daily; Nortriptyline 150 mg HS; Seroquel 400 mg daily Present on Admission?: Yes (7) Lymphedema: - Would benefit from lymphedema treatments as an outpatient - Bumex 2 mg daily Present on Admission?: Yes (8) Morbid obesity with BMI of 50.0-59.9, adult: BMI 60 Present on Admission?: Yes (9) DVT prophylaxis: - Lovenox Disposition: PT/OT; patient is hoping for rehab Subjective Patient reports feeling well today. Erythema is reducing in the lower extremity. She denies any complaints. Review of outpatient records states ID was working on converting to Dalvance for Abx coverage and did discuss this with Dr. Luo Constitutional: + weight gain (due to edema of legs/abdomen); no fever and no chills Eyes: no worsening vision Respiratory: no cough and no dyspnea Cardiovascular: + edema; no chest pain and no palpitations Gastrointestinal: no abdominal pain, no nausea, no vomiting, no constipation and no diarrhea/loose stools Genitourinary (Female): no dysuria Musculoskeletal: + back pain (chronic) Integumentary: + rash and + erythema Physical Exam Vital Signs (Past 24 Hours): Last Vital Signs Temp 36.3 C L 08/01/18 16:04 Pulse 68 08/01/18 16:04 Resp 18 08/01/18 16:04 BP 119/72 08/01/18 16:04 Pulse Ox 95 08/01/18 16:04 Constitutional: + morbidly obese; no acute distress and not ill appearing Eyes: + anicteric sclerae ENMT: Ears: no hearing impairment Neck: normal visual inspection and trachea midline Respiratory: normal respiratory effort, lungs clear to auscultation Cardiovascular: Rate/Rhythm: regular rate and regular rhythm Heart Sounds: no murmur Vessels: no JVD Extremities: + edema (L > R) Gastrointestinal (Abdomen): Inspection/Auscultation: normal bowel sounds Percussion/Palpation: abdomen soft; abdomen nontender Musculoskeletal: Head/Neck/Chest: normocephalic, head atraumatic and neck supple Skin: + rash (reducing erythema of L coles (site is marked); some chronic venous stasis) Neurologic: moves all extremities Psychiatric: A+Ox3, euthymic affect Lymphatic: no cervical lymphadenopathy (1) CVA (cerebral vascular accident) CVA mechanism: other Qualified Code(s): I63.8 - Other cerebral infarction (2) Hypertension Hypertension type: essential hypertension Qualified Code(s): I10 - Essential (primary) hypertension (3) Gout Gout site: unspecified site Gout etiology: unspecified cause Chronicity: chronic Presence of tophus: without tophus Qualified Code(s): M1A.9XX0 - Chronic gout, unspecified, without tophus (tophi) (4) Asthma Asthma severity: mild Asthma persistence: persistent Asthma complication type: uncomplicated Qualified Code(s): J45.30 - Mild persistent asthma, uncomplicated (5) Depression Depression Type: unspecified Qualified Code(s): F32.9 - Major depressive disorder, single episode, unspecified
[2018-08-01] MEDS: TRAZODONE HCL 50 MG TAB PO SCH (21:20)
[2018-08-01] MEDS: ATORVASTATIN 40 MG TAB PO SCH (21:20)
[2018-08-01] MEDS: MONTELUKAST SODIUM 10 MG TABLET PO SCH (21:21)
[2018-08-01] MEDS: NORTRIPTYLINE HCL 25 MG CAP PO SCH (21:21)
[2018-08-02] MEDS: VANCOMYCIN HCL 2,000 MG in SODIUM CHLORIDE 0.9% 500 ML IV SCH (06:16)
[2018-08-02] MEDS: HYDROCODONE/ACETAMINOPHEN 10/325 TAB PO PRN ×2 (06:25→19:51)
[2018-08-02 06:32] LABS: Creatinine Clr Calc Pharmacy 94.7 ml/min; Est GFR (African American) 54.5
[2018-08-02] MEDS: CHOLECALCIFEROL 1,000 UNITS TAB PO SCH ×3 (08:08→21:25)
[2018-08-02] MEDS: MULTIVITAMIN TAB PO SCH (08:08)
[2018-08-02] MEDS: METOPROLOL SUCC 50MG EXT REL TAB PO SCH (08:08)
[2018-08-02] MEDS: ALLOPURINOL 100 MG TAB PO SCH ×2 (08:09→21:25)
[2018-08-02] MEDS: FAMOTIDINE 20 MG TAB PO SCH (08:09)
[2018-08-02] MEDS: METHOCARBAMOL 500 MG TABLET PO SCH ×3 (08:09→21:24)
[2018-08-02] MEDS: BuPROPion XL 300 MG TABCR PO SCH (08:09)
[2018-08-02] MEDS: INDOMETHACIN 25 MG CAP PO SCH ×3 (08:09→21:23)
[2018-08-02] MEDS: PANTOprazole 40 MG TAB PO SCH (08:09)
[2018-08-02] MEDS: MAGNESIUM OXIDE 400 MG TAB PO SCH ×2 (08:09→21:24)
[2018-08-02] MEDS: DULOXETINE HCL 30 MG CAP PO SCH (08:09)
[2018-08-02] MEDS: ASPIRIN 81 MG ECTAB PO SCH (08:09)
[2018-08-02] MEDS: GABAPENTIN 300 MG CAP PO SCH ×3 (08:09→21:24)
[2018-08-02] MEDS: POTASSIUM CHLORIDE 20 MEQ TABCR PO SCH ×3 (08:09→21:23)
[2018-08-02] MEDS: BusPIRone 15 MG TAB PO SCH ×3 (08:09→21:23)
[2018-08-02] MEDS: BUMETANIDE 1 MG TAB PO SCH (08:10)
[2018-08-02] MEDS: CLOPIDOGREL BISULFATE 75 MG TAB PO SCH (08:10)
[2018-08-02] MEDS: ENOXAPARIN INJ 40 MG/0.4 ML SYR SQ SCH ×2 (08:10→21:17)
[2018-08-02] MEDS: SERTRALINE HCL 100 MG TABLET PO SCH (08:10)
[2018-08-02] MEDS: CYANOCOBALAMIN 500 MCG TABLET (VITAMIN B-12) PO SCH (08:12)
[2018-08-02] MEDS ORDERED: BISACODYL 5 MG TABEC PO PRN (09:56)
[2018-08-02] MEDS ORDERED: POLYETHYLENE (MIRALAX) 17 GM PACK PO PRN (09:56)
[2018-08-02] MEDS: DOCUSATE SODIUM 100 MG CAP PO SCH ×2 (11:02→21:29)
--- NOTE | 2018-08-02 16:51 | Hospitalist Progress Note ---
Date of Service August 02, 2018 Assessment & Plan (1) Cellulitis of left lower leg: - Ongoing issue and failed outpatient Doxycycline; follows with ID - Dr. Luo - Initially treated with Rocephin 2 g IV daily and Vancomycin - will convert to just Vancomycin to complete x 14 days - course to complete on 08/11 - Reviewed outpatient records and discussed with Dr. Luo - was working process for starting Dalvance she is not sure where in the process this is but her office did start this -- Recommendation was to continue Vancomycin for now with conversion to this - this cannot be given in the hospital and likely either through [facility] vs home infusion and likely needs approval and insurance assessment - Will place U/S Guided peripheral line but could place PICC if unable to do peripheral - plan to give dose of Vanc in-house - Rx provided to case management (2) CVA (cerebral vascular accident): - History of 2 lacunar infarcts. No significant residual deficits. Continue aspirin and Plavix for secondary prevention. (3) Hypertension: - STABLE - Toprol XL 50 mg daily (4) Gout: - Possible gout flare - uric acid was 8.7 on admission; Can continue Ind omethacin 25 mg TID to complete today 08/02 Ant - Allopurinol 100 mg BID (5) Asthma: - No current exacerbation - Albuterol PRN; Fluticasone/Salmeterol BID; Montelukast 10 mg daily (6) Depression: - STABLE - Bupropion 300 mg AM; Buspirone 15 mg TID; Duloxetine 30 mg daily; Nortriptyline 150 mg HS; Seroquel 400 mg daily (7) Lymphedema: - Would benefit from lymphedema treatments as an outpatient - Bumex 2 mg daily (8) Morbid obesity with BMI of 50.0-59.9, adult: BMI 60 (9) DVT prophylaxis: - Lovenox Disposition: Anticipating D/C to [facility] tomorrow after antibiotics Subjective Reports feeling well overall today. No specific complaints. No pain in the LLE and this continues to reduce in erythema. Has some chronic venous stasis changes and likely will remain with some mild erythema Constitutional: no fever and no chills Respiratory: no cough and no dyspnea Cardiovascular: + edema; no chest pain and no palpitations Gastrointestinal: + constipation; no abdominal pain, no nausea, no vomiting and no diarrhea/loose stools Genitourinary (Female): no dysuria Musculoskeletal: + back pain (chronic) Integumentary: + rash and + erythema Physical Exam Vital Signs (Past 24 Hours): Last Vital Signs Temp 36.5 C 08/02/18 15:57 Pulse 69 08/02/18 15:57 Resp 20 08/02/18 15:57 BP 136/81 08/02/18 15:57 Pulse Ox 95 08/02/18 15:57 Constitutional: + morbidly obese; no acute distress and not ill appearing Eyes: + anicteric sclerae ENMT: Ears: no hearing impairment Neck: normal visual inspection and trachea midline Respiratory: normal respiratory effort, lungs clear to auscultation Auscultation: + diminished lung sounds Cardiovascular: Rate/Rhythm: regular rate and regular rhythm Heart Sounds: no murmur Vessels: no JVD Extremities: + edema (L > R) Gastrointestinal (Abdomen): Inspection/Auscultation: normal bowel sounds Percussion/Palpation: abdomen soft; abdomen nontender Musculoskeletal: Head/Neck/Chest: normocephalic, head atraumatic and neck supple Skin: + rash (reducing erythema of L coles (site is marked); some chronic venous stasis) Neurologic: moves all extremities Psychiatric: A+Ox3, euthymic affect Lymphatic: no cervical lymphadenopathy (1) CVA (cerebral vascular accident) CVA mechanism: other Qualified Code(s): I63.8 - Other cerebral infarction (2) Hypertension Hypertension type: essential hypertension Qualified Code(s): I10 - Essential (primary) hypertension (3) Gout Gout site: unspecified site Gout etiology: unspecified cause Chronicity: chronic Presence of tophus: without tophus Qualified Code(s): M1A.9XX0 - Chronic gout, unspecified, without tophus (tophi) (4) Asthma Asthma severity: mild Asthma persistence: persistent Asthma complication type: uncomplicated Qualified Code(s): J45.30 - Mild persistent asthma, uncomplicated (5) Depression Depression Type: unspecified Qualified Code(s): F32.9 - Major depressive disorder, single episode, unspecified
[2018-08-02] MEDS: MICONAZOLE NITRATE POWDER 43 GM EXT PRN (21:16)
[2018-08-02] MEDS: TRAZODONE HCL 50 MG TAB PO SCH (21:23)
[2018-08-02] MEDS: NORTRIPTYLINE HCL 25 MG CAP PO SCH (21:24)
[2018-08-02] MEDS: ATORVASTATIN 40 MG TAB PO SCH (21:24)
[2018-08-02] MEDS: MONTELUKAST SODIUM 10 MG TABLET PO SCH (21:25)
[2018-08-02] MEDS: QUETIAPINE FUMARATE 200 MG TAB PO SCH (21:25)
[2018-08-02 23:52] VITALS: TEMP 97.5
[2018-08-03 02:30] LABS: Hematocrit (blood only) 35.1 % (37-47); Hemoglobin 11.2 g/dL (12.0-16.0); Mean Corpuscular Hgb Conc 31.9 g/dL (32-36); Mean Corpuscular Volume 84.4 fL (80-100); Mean Platelet Volume 9.5 fL (7.4-10.4); Platelet Count 207 K/uL (130-400); RDW Coefficient of Variation 15.6 % (11.5-14.5); RDW Standard Deviation 47.8 fL (36.4-46.3); Red Blood Count 4.16 M/uL (4.2-5.4); White Blood Count 8.99 K/uL (4.8-10.8)
[2018-08-03] MEDS ORDERED: VANCOMYCIN TROUGH ONE (02:30)
[2018-08-03 02:48] LABS: Creatinine Clr Calc Pharmacy 75.7 ml/min; Est GFR (African American) 41.9; Est GFR (Non-African American) 36.2
[2018-08-03 03:09] LABS: INR 1.1 (0.9-1.1); Partial Thromboplastin Time 27.3 Seconds (21.0-31.0)
[2018-08-03] MEDS: VANCOMYCIN HCL 2,000 MG in SODIUM CHLORIDE 0.9% 500 ML IV SCH (04:05)
[2018-08-03] MEDS: HYDROCODONE/ACETAMINOPHEN 10/325 TAB PO PRN (06:11)
[2018-08-03 07:09] VITALS: O2SAT 94
[2018-08-03] MEDS: ALLOPURINOL 100 MG TAB PO SCH (07:35)
[2018-08-03] MEDS: POTASSIUM CHLORIDE 20 MEQ TABCR PO SCH ×2 (07:35→13:01)
[2018-08-03] MEDS: GABAPENTIN 300 MG CAP PO SCH ×2 (07:35→13:01)
[2018-08-03] MEDS: CYANOCOBALAMIN 500 MCG TABLET (VITAMIN B-12) PO SCH (07:35)
[2018-08-03] MEDS: MAGNESIUM OXIDE 400 MG TAB PO SCH (07:36)
[2018-08-03] MEDS: BUMETANIDE 1 MG TAB PO SCH (07:36)
[2018-08-03] MEDS: DULOXETINE HCL 30 MG CAP PO SCH (07:36)
[2018-08-03] MEDS: CHOLECALCIFEROL 1,000 UNITS TAB PO SCH ×2 (07:36→13:01)
[2018-08-03] MEDS: ASPIRIN 81 MG ECTAB PO SCH (07:36)
[2018-08-03] MEDS: METOPROLOL SUCC 50MG EXT REL TAB PO SCH (07:36)
[2018-08-03] MEDS: SERTRALINE HCL 100 MG TABLET PO SCH (07:36)
[2018-08-03] MEDS: CLOPIDOGREL BISULFATE 75 MG TAB PO SCH (07:36)
[2018-08-03] MEDS: FAMOTIDINE 20 MG TAB PO SCH (07:36)
[2018-08-03] MEDS: MULTIVITAMIN TAB PO SCH (07:36)
[2018-08-03] MEDS: PANTOprazole 40 MG TAB PO SCH (07:37)
[2018-08-03] MEDS: METHOCARBAMOL 500 MG TABLET PO SCH ×2 (07:37→13:01)
[2018-08-03] MEDS: BuPROPion XL 300 MG TABCR PO SCH (07:37)
[2018-08-03] MEDS: BusPIRone 15 MG TAB PO SCH ×2 (07:37→13:01)
[2018-08-03] MEDS: DOCUSATE SODIUM 100 MG CAP PO SCH (07:38)
[2018-08-03] MEDS: ENOXAPARIN INJ 40 MG/0.4 ML SYR SQ SCH (07:38)
--- NOTE | 2018-08-03 11:00 | Pharmacy Report ---
Pharmacy Abx Dose Short Note - Date of Service August 03, 2018 - Assessment & Plan Assessment 57 year old F receiving Vancomycin for treatment of cellulitis Day # 6 of antimicrobial therapy. Plan Laboratory Tests 08/03/18 02:16 Vancomycin Trough 16.5 Vancomycin * Trough level of 16.5 mcg/mL is therapeutic * Goal trough level for cellulitis : 15 to 20 mcg/mL * Patient is being transferred to SNF today. * Spoke with case mgmt regarding dosing as an outpatient. May either continue Vancomcyin 2000 mg IV q20h or Vancomycin 2500mg IV q24h. They will follow up with facililty regarding the dose. * Would recommend rechecking Vanco trough level in 2-3 days and make adjustments as necessary. * Also would recommend checking renal function every 2 days. Pharmacy will continue to follow and will adjust dose/frequency as necessary. Thank you.
[2018-08-03 11:24] VITALS: BP 119/75; PULSE 69
--- NOTE | 2018-08-03 13:47 | Discharge Summary ---
Date of Service August 03, 2018 Admission HPI Per Admitting Provider 57yo female with h/o recurrent skin infections of the left leg along with morbid obesity - BMI 57 - presents with 1 month of leg swelling, redness, and weeping. She saw Dr. Candelaria Luo at the ID clinic this am who referred her to the ER for possible admission due to LLE cellulitis. No fevers, chills, or anorexia. She has been taking doxycycline prescribed by the [facility] ER about 1 week. She states that within the last 2 weeks she has had dopplers of both legs neither of which showed DVT. No improvement with the doxy. If anything the cellulitis has worsened. Uses a walker at home to ambulate but walks very little. Has been quite weak. She has had several falls including a fall at home about 1 week ago. NO head injury or syncope. Knees gave out - she felt quite weak. Principal Diagnosis LLE Cellulitis Discharge Exam Constitutional + morbidly obese; no acute distress and not ill appearing Eyes + anicteric sclerae ENMT external ear and nose normal, oropharynx normal Ears: no hearing impairment Neck trachea midline, no thyromegaly normal visual inspection and trachea midline Respiratory normal respiratory effort, lungs clear to auscultation Auscultation: + diminished lung sounds Cardiovascular Rate/Rhythm: regular rate and regular rhythm Heart Sounds: no murmur Vessels: no JVD Extremities: + edema (L > R) Gastrointestinal (Abdomen) normal bowel sounds, soft, nontender, no hepatosplenomegaly Inspection/Auscultation: normal bowel sounds Percussion/Palpation: abdomen soft; abdomen nontender Musculoskeletal Head/Neck/Chest: normocephalic, head atraumatic and neck supple U/S guided peripheral line placed in R forearm Skin + rash (reducing erythema of L coles (site is marked); some chronic venous stasis) Neurologic moves all extremities Psychiatric A+Ox3, euthymic affect Lymphatic no cervical lymphadenopathy Discharge Data Allergies Allergy/AdvReac Type Severity Reaction Status Date / Time Corticosteroids Allergy Intermediate RASH Verified 07/29/18 18:00 (Glucocorticoids) morphine Allergy Intermediate MOUTH Verified 07/29/18 18:00 SWELLS/FACE SWELLS orange Allergy Intermediate HIVES Verified 07/29/18 18:00 Penicillins Allergy Intermediate RASH/HIVES Verified 07/29/18 18:00 prednisone Allergy Intermediate RED RASH Verified 07/29/18 18:00 pregabalin Allergy Intermediate GOOFY Verified 07/29/18 18:00 zolpidem Allergy Intermediate UNSURE Verified 07/29/18 18:00 Consultations 07/29/18 17:24 ED Decision to Admit Stat 07/31/18 09:26 Consult Case Management - Discharge Planning Routine Ordered Studies ULTRASOUND LEFT LOWER EXTREMITY VENOUS FINDINGS: There is no sonographic evidence of deep venous thrombosis identified in the left lower extremity. The common femoral, superficial femoral, and popliteal veins are patent and normally compressible. The greater saphenous vein and the profunda femoris vein at the junction with the common femoral vein are clear. The calf vessels were not visualized. Soft tissue edema is noted in the calf. IMPRESSION: There is no sonographic evidence of above knee deep venous thrombosis identified in the left lower extremity. The calf vessels were not visualized. XR ankle LT 2V DISCUSSION: No acute fractures are visualized. There is mild bimalleolar soft tissue swelling. There is calcaneal spurring. There are mild degenerative changes. IMPRESSION: Mild soft tissue swelling. No acute fractures. Mild degenerative change. No evidence of erosive disease. Hospital Course (1) Cellulitis of left lower leg: - Ongoing issue and failed outpatient Doxycycline; follows with ID - Dr. Luo - Initially treated with Rocephin 2 g IV daily and Vancomycin - will convert to just Vancomycin to complete x 14 days - course to complete on 08/11 - Reviewed outpatient records and discussed with Dr. Luo - was working process for starting Dalvance, she is not sure where in the process this is but her office did start this -- Recommendation was to continue Vancomycin for now with conversion to this - this cannot be given in the hospital/SNF and likely either through MTU vs home infusion and likely needs approval and insurance assessment - Recommend F/U with ID - U/S Guided peripheral line in R forearm - Rx for Vanc dosing and troughs supplied to facility (2) CVA (cerebral vascular accident): - History of 2 lacunar infarcts. No significant residual deficits. Continue aspirin and Plavix for secondary prevention. (3) Hypertension: - STABLE - Bisoprolol 5 mg daily (4) Gout: - Possible gout flare - uric acid was 8.7 on admission; Indomethacin 25 mg TID completed on 08/02 - Allopurinol 100 mg BID (5) Asthma: - No current exacerbation - Albuterol PRN; Fluticasone/Salmeterol BID; Montelukast 10 mg daily (6) Depression: - STABLE - Bupropion 300 mg AM; Buspirone 15 mg TID; Duloxetine 30 mg daily; Nortriptyline 150 mg HS; Seroquel 400 mg daily (7) Lymphedema: - Would benefit from lymphedema treatments as an outpatient - Bumex 2 mg daily; Amiloride daily (8) Morbid obesity with BMI of 50.0-59.9, adult: BMI 60 Total Time Total Time Spent Total Time Spent (In Minutes): Greater than 30 minutes Discharge Plan Discharge Items Patient Disposition: Transfer Intermediate Fac Reason For Visit: LLE CELLULITIS Discharge Diagnosis: Left Lower Extremity Cellulitis; H/O MRSA Discharge Goals: Decrease discomfort, Improve disease control and Increase independence Activity: Resume your previous activity Weightbearing: Left weightbearing and Right weightbearing Non-emergency contact: Primary Care Provider Call non-emergency contact if: you have any medication questions, your symptoms worsen and you have a fever Follow-up/Referrals: Etelvina Cazares DO [Primary Care Provider] - Diet: Regular Addtl Provider Instructions: Cellulitis of left lower leg: - Initially placed on Doxycycline as outpatient but failed treatment - Was placed on Rocephin and Vancomycin with good response. Given her history of MRSA will continue Vancomyin to complete a 14 day course which is due to end on 08/11/18. - U/S guided peripheral line was placed in R forearm - Patient follows with Infectious Disease - Dr. Luo - recommend close F/U in her office as they are working on getting Dalvance approved for the patient Renal Function: - Baseline appears to be around 1.2-1.47 on labs here. Currently at 1.59 and recommend repeat BMP in 2 days to reassess given need for Vancomyin as this could cause further rise in kidney function - Could also monitor daily weights and hold diuretics 1-2 days to reduce insult on the kidneys. Previous CVA (cerebral vascular accident): - History of 2 lacunar infarcts. No significant residual deficits. Continue aspirin and Plavix for secondary prevention. Hypertension: - STABLE - Bisoprolol 5 mg daily Gout: - Allopurinol 100 mg BID Asthma: - No current exacerbation - Albuterol PRN; Fluticasone/Salmeterol BID; Montelukast 10 mg daily Depression: - STABLE - Bupropion 300 mg AM; Buspirone 15 mg TID; Duloxetine 30 mg daily; Nortriptyline 150 mg HS; Seroquel 400 mg daily Lymphedema: - Would benefit from lymphedema treatments as an outpatient - Bumex 2 mg daily and Amiloride 5 mg daily Prescriptions: New docusate sodium 100 mg Capsule 100 mg PO BID 30 Days Qty: 60 RF: 0 vancomycin 1,000 mg recon soln 2,500 mg IV DAILY Qty: 10 RF: 0 trazodone 150 mg Tablet 150 mg PO HS 3 Days Qty: 3 RF: 0 Continued multivitamin Tablet 1 tab PO DAILY RF: 0 atorvastatin 40 mg tablet 40 mg PO QPM RF: 0 methocarbamol 500 mg Tablet 500 mg PO TID RF: 0 fluticasone propion-salmeterol [Advair Diskus] 250-50 mcg/dose Blister With Device 1 inh INHALATION Q12H PRN (Reason: Shortness Of Breath) RF: 0 cyanocobalamin (vitamin B-12) [Vitamin B-12] 1,000 mcg Tablet 1,000 mcg PO DAILY RF: 0 clopidogrel [Plavix] 75 mg Tablet 75 mg PO DAILY RF: 0 aspirin [Aspir-81] 81 mg Tablet,Delayed Release (Dr/Ec) 81 mg PO DAILY RF: 0 bisoprolol fumarate 5 mg Tablet 5 mg PO DAILY RF: 0 amiloride 5 mg Tablet 5 mg PO DAILY RF: 0 pantoprazole 40 mg Tablet,Delayed Release (Dr/Ec) 40 mg PO DAILY RF: 0 gabapentin 300 mg capsule 300 mg PO TID RF: 0 montelukast 10 mg Tablet 10 mg PO PM RF: 0 albuterol sulfate [Ventolin HFA] 90 mcg/actuation Hfa Aerosol Inhaler 2 puff INHALATION Q4H PRN (Reason: Shortness Of Breath Or Wheezing) RF: 0 nortriptyline 50 mg Capsule 150 mg PO HS RF: 0 buspirone 15 mg Tablet 15 mg PO TID RF: 0 bupropion HCl 300 mg Tablet Extended Release 24 Hr 300 mg PO QAM RF: 0 cholecalciferol (vitamin D3) [Vitamin D3] 2,000 unit Capsule 2,000 unit PO TID RF: 0 sertraline 100 mg tablet 100 mg PO DAILY RF: 0 quetiapine 400 mg tablet 400 mg PO DAILY RF: 0 hydrocodone-acetaminophen 10-325 mg Tablet 1 tab PO Q8H PRN (Reason: Pain) 3 Days Qty: 9 RF: 0 Changed bumetanide 2 mg Tablet 2 mg PO DAILY Qty: 0 RF: 0 allopurinol 100 mg Tablet 100 mg PO BID Qty: 0 RF: 0 famotidine 20 mg Tablet 20 mg PO DAILY Qty: 0 RF: 0 metoclopramide HCl 5 mg Tablet 5 mg PO AC PRN (Reason: nausea) Qty: 0 RF: 0 duloxetine 30 mg capsule,delayed release(DR/EC) 30 mg PO DAILY Qty: 0 RF: 0 Stand-Alone Forms: [facility] Discharge Orders: Discharge Order (Routine); Ordered 08/03/18 Ordered By: Avani Hall Skilled Items Patient informed of condition?: Yes DNR: No Discharge Level of Care: Skilled Communicable Disease: Yes (MRSA) Discharge Prognosis: Stable Admission Data Admit Date/Time: 07/29/18 19:24 Attending Provider: Christian Urbano Admit Provider: Candido Bethea Primary Care Provider: Etelvina Cazares Other Providers: Candido Bethea Service: Medical Other Interventions: Discharge Summary Assessment (RN) Last Done: 08/03/18 11:23 Pending Studies at Discharge: No DC Date/Time DO NOT enter until pt leaves facility: 08/03/18 13:15
== END 2018-08-03 13:15 | DRG 603 ==
LOC: ED 14:46 → 4W 19:24 → SUATTDRO 19:24 → 4W 20:42

== ENCOUNTER 2018-10-17 08:47 | Inpatient (IN) ==
--- NOTE | 2018-09-29 09:38 | PAT Medication Instructions ---
Medication Instructions Date of Service September 29, 2018 Home Medications Medication Instructions Recorded allopurinol 100 mg PO BID #0 tab 08/03/18 metoclopramide HCl 5 mg PO AC PRN #0 tab 08/03/18 albuterol sulfate [Ventolin HFA] 2 puff INHALATION Q4H PRN amiloride 5 mg PO QAM aspirin [Aspir-81] 81 mg PO QAM atorvastatin 40 mg PO QPM bisoprolol fumarate 5 mg PO QAM bupropion HCl 300 mg PO QAM buspirone 15 mg PO TID cholecalciferol (vitamin D3) 2,000 unit PO TID clopidogrel [Plavix] 75 mg PO QAM cyanocobalamin (vitamin B-12) 1,000 mcg PO DAILY fluticasone propion-salmeterol 1 inh INHALATION Q12H PRN gabapentin 300 mg PO TID methocarbamol 500 mg PO TID montelukast 10 mg PO PM multivitamin 1 tab PO QAM nortriptyline 150 mg PO HS pantoprazole 40 mg PO QAM quetiapine 400 mg PO HS sertraline 100 mg PO QAM allopurinol 100 mg PO BID metoclopramide HCl 5 mg PO AC PRN bumetanide 2 mg PO QAM duloxetine 30 mg PO QAM famotidine 20 mg PO QAM ASK your prescriber and surgeon aspirin [Aspir-81] 81 mg PO QAM clopidogrel [Plavix] 75 mg PO QAM DO NOT take the morning of surgery amiloride 5 mg PO QAM cholecalciferol (vitamin D3) 2,000 unit PO TID cyanocobalamin (vitamin B-12) 1,000 mcg PO DAILY methocarbamol 500 mg PO TID multivitamin 1 tab PO QAM metoclopramide HCl 5 mg PO AC PRN bumetanide 2 mg PO QAM Take morning of surgery With a small sip of water, OTHERWISE NOTHING TO EAT OR DRINK AFTER MIDNIGHT: albuterol sulfate [Ventolin HFA] 2 puff INHALATION Q4H PRN (use if needed; please bring with you to hospital day of surgery if possible) bisoprolol fumarate 5 mg PO QAM bupropion HCl 300 mg PO QAM buspirone 15 mg PO TID fluticasone propion-salmeterol 1 inh INHALATION Q12H PRN (if needed) gabapentin 300 mg PO TID pantoprazole 40 mg PO QAM sertraline 100 mg PO QAM allopurinol 100 mg PO BID duloxetine 30 mg PO QAM famotidine 20 mg PO QAM Take evening before surgery albuterol sulfate [Ventolin HFA] 2 puff INHALATION Q4H PRN (if needed) atorvastatin 40 mg PO QPM buspirone 15 mg PO TID cholecalciferol (vitamin D3) 2,000 unit PO TID fluticasone propion-salmeterol 1 inh INHALATION Q12H PRN (if needed) gabapentin 300 mg PO TID methocarbamol 500 mg PO TID montelukast 10 mg PO PM nortriptyline 150 mg PO HS quetiapine 400 mg PO HS allopurinol 100 mg PO BID metoclopramide HCl 5 mg PO AC PRN (if needed) Other Notes If you have any questions please call us at [phone] or [phone] or [phone] or [phone]
--- NOTE | 2018-10-03 11:40 | Anesthesiology Consultation ---
Date of Service October 03, 2018 Assessment & Plan (1) Encounter for pre-operative examination: - ASA/plavix instructions per surgeon/prescriber. Chart Review Chart Review: Acceptable Risk for Surgery and Patient seen in Pre Admission Testing Teaching & Discussion Pre-Anesthesia Teaching/Discussion Notes: Instructed NPO after midnight before surgery,except medications with 15 cc of water. Medication instructions provided according to the PAT guidelines. History Surgery Operation Date: 10/17/18 13:00 Proposed Procedures p Right Reverse Shoulder Replacement - Jevon Longoria DO Height/Weight Height: 5 ft 11 in Weight: 186.7 kg Allergies Allergy/AdvReac Type Severity Reaction Status Date / Time Corticosteroids Allergy Intermediate RASH Verified 09/21/18 08:44 (Glucocorticoids) morphine Allergy Intermediate MOUTH Verified 09/21/18 08:44 SWELLS/FACE SWELLS orange Allergy Intermediate HIVES Verified 09/21/18 08:44 Penicillins Allergy Intermediate RASH/HIVES Verified 09/21/18 08:44 prednisone Allergy Intermediate RED RASH Verified 09/21/18 08:44 pregabalin Allergy Intermediate GOOFY Verified 09/21/18 08:44 zolpidem Allergy Intermediate UNSURE Verified 09/21/18 08:44 Medications Home Medications Medication Instructions Recorded Confirmed Last Taken albuterol sulfate [Ventolin HFA] 2 puff INHALATION Q4H PRN 02/08/18 09/21/18 Unknown amiloride 5 mg PO QAM 02/08/18 09/21/18 07/29/18 aspirin [Aspir-81] 81 mg PO QAM 02/08/18 09/21/18 07/29/18 atorvastatin 40 mg PO QPM 02/08/18 09/21/18 Unknown bisoprolol fumarate 5 mg PO QAM 02/08/18 09/21/18 Unknown bupropion HCl 300 mg PO QAM 02/08/18 09/21/18 07/29/18 buspirone 15 mg PO TID 02/08/18 09/21/18 07/29/18 cholecalciferol (vitamin D3) 2,000 unit PO TID 02/08/18 09/21/18 Unknown [Vitamin D3] clopidogrel [Plavix] 75 mg PO QAM 02/08/18 09/21/18 Unknown cyanocobalamin (vitamin B-12) 1,000 mcg PO DAILY 02/08/18 09/21/18 Unknown [Vitamin B-12] fluticasone propion-salmeterol 1 inh INHALATION Q12H PRN 02/08/18 09/21/18 Unknown [Advair Diskus] gabapentin 300 mg PO TID 02/08/18 09/21/18 Unknown methocarbamol 500 mg PO TID 02/08/18 09/21/18 Unknown montelukast 10 mg PO PM 02/08/18 09/21/18 Unknown multivitamin 1 tab PO QAM 02/08/18 09/21/18 Unknown nortriptyline 150 mg PO HS 02/08/18 09/21/18 Unknown pantoprazole 40 mg PO QAM 02/08/18 09/21/18 Unknown quetiapine 400 mg PO HS 07/29/18 09/21/18 Unknown sertraline 100 mg PO QAM 07/29/18 09/21/18 Unknown allopurinol 100 mg PO BID #0 tab 08/03/18 09/21/18 Unknown metoclopramide HCl 5 mg PO AC PRN #0 tab 08/03/18 09/21/18 Unknown bumetanide 2 mg PO QAM 09/21/18 09/21/18 Unknown duloxetine 30 mg PO QAM 09/21/18 09/21/18 Unknown famotidine 20 mg PO QAM 09/21/18 09/21/18 Unknown Past Medical History Medical History Chronic pain TIA (transient ischemic attack) 2017- ON PLAVIX Left leg weakness Acid reflux CONTROLLED Asthma STABLE CKD (chronic kidney disease) stage 3, GFR 30-59 ml/min Chronic back pain 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; 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- DISCOVERED WITH INCIDENTAL IMAGING Depression Gout Hyperlipidemia Hypertension Morbid obesity Exercise / Class Metabolic Activity III < 4 Walking/Shop/Light housework (USES WALKER PRN) Past Family History Family History Father Coronary heart disease [place] x 2 Diabetes Mother Diabetes Other Cancer Hypertension Past Surgical History Surgical History H/O total knee replacement B/L H/O ventral hernia repair History of appendectomy History of carpal tunnel release B/L History of cholecystectomy Past Anesthesia History No Hx of Anesthesia Complications and No Family Hx of Anesthesia Complications History of PONV No Hx of PONV and No Hx of Motion Sickness Social History Smoking Status: Never smoker Do You Dip or Chew Tobacco: No Hx Alcohol Use: No Hx Substance Use: No substance use type: does not use Review of Systems Controlled acid reflux. Patient denies chest pain, shortness of breath, cough, wheezing, palpitations. Physical Exam Vital Signs VITALS BP 121/66 P 64 TEMP 97.6 SP02 94%RA RESP 18 PHYSICAL Full neck and c-spine range of motion. Full TMJ range of motion. TMD 3 finger breaths Mallampati Score 3 Dentition: edentulous; full dentures on upper Lungs: clear throughout to auscultation Cardiac: regular rate and rhythm, no murmurs noted Spine: normal Carotid arteries: negative bruit Extremities: no edema Testing Laboratory Results 10/03/18 12:27 10/03/18 12:27 10/03/18 10/03/18 12:27 12:27 PT 10.6 INR 1.0 APTT 26.8 Blood Type O Positive Antibody Screen NEGATIVE Electrocardiogram Date: 07/30/18 NSR at 72bpm. Septal infarct (cited on/before 10/01/17 per cardio), possible lateral infarct (cited on/before 10/01/17 per cardio), possible inferior infarct (cannot r/o inferior infarct per 07/23/17 EKG per cardio). Patient s/p ECHO done 10/05/17 Chest X-Ray Date: 07/29/18 Findings: + NAD Echocardiogram Date: 10/05/17 EF 60-65%. No RWMA. Mild TR. Technically difficult study.
[2018-10-03 13:14] LABS: Basophils # (auto) 0.01 K/uL (0-0.2); Basophils % (auto) 0.1 %; Eosinophils # (auto) 0.25 K/uL (0-0.5); Hematocrit (blood only) 39.4 % (37-47); Hemoglobin 12.6 g/dL (12.0-16.0); Immature Granulocytes # (auto) 0.02 K/uL (0.00-0.02); Immature Granulocytes % (auto) 0.2 %; Lymphocytes # (auto) 1.72 K/uL (1.2-3.4); Lymphocytes % (auto) 20.3 %; Mean Corpuscular Volume 82.4 fL (80-100); Mean Platelet Volume 9.7 fL (7.4-10.4); Monocytes # (auto) 0.47 K/uL (0.11-0.59); Monocytes % (auto) 5.6 %; Neutrophils # (auto) 5.99 K/uL (1.4-6.5); Neutrophils % (auto) 70.8 %; Platelet Count 256 K/uL (130-400); RDW Coefficient of Variation 16.1 % (11.5-14.5); RDW Standard Deviation 48.8 fL (36.4-46.3); Red Blood Count 4.78 M/uL (4.2-5.4); White Blood Count 8.46 K/uL (4.8-10.8)
[2018-10-03 13:26] LABS: Partial Thromboplastin Time 26.8 Seconds (21.0-31.0); Prothrombin Time 10.6 Seconds (9.0-12.0)
[2018-10-03 13:30] LABS: BUN Creatinine Ratio 10.3 (10-20); Calcium 9.1 mg/dl (8.5-10.1); Creatinine Clr Calc Pharmacy 93.7 ml/min; Est GFR (African American) 56.2; Est GFR (Non-African American) 48.5
--- NOTE | 2018-10-11 15:15 | History & Physical Report ---
Date of Service October 11, 2018 Assessment & Plan (1) Rotator cuff arthropathy of right shoulder: We will proceed with a right reverse shoulder arthroplasty. Postoperatively she will be kept overnight at the hospital for postop medical management. She plans to use a energy physical therapy upon discharge. We will have to watch her lab values and her medical status closely postoperatively. Present on Admission?: Yes History of Present Illness Chief Complaint: Rotator cuff arthropathy of the right shoulder Primary Care Provider: Etelvina Cazares DO Kriss is a 58-year-old female who is been having a year long history of increasing right shoulder pain. She denies any acute injuries or traumas. MRI and x-rays of her shoulder were diagnostic for advanced osteoarthritis with small rotator cuff tear. She has been unable to get her arm above chest level for a long time. She recently had bilateral knee replacements and did well with those. Unfortunately her shoulders significantly affecting her quality of life. She has failed extensive conservative treatment including injections as well as physical therapy. She has multiple chronic medical comorbidities. After long discussions in the office, she is elected proceed with a reverse right shoulder arthroplasty. Allergies Allergy/AdvReac Type Severity Reaction Status Date / Time Corticosteroids Allergy Intermediate RASH Verified 09/21/18 08:44 (Glucocorticoids) morphine Allergy Intermediate MOUTH Verified 09/21/18 08:44 SWELLS/FACE SWELLS orange Allergy Intermediate HIVES Verified 09/21/18 08:44 Penicillins Allergy Intermediate RASH/HIVES Verified 09/21/18 08:44 prednisone Allergy Intermediate RED RASH Verified 09/21/18 08:44 pregabalin Allergy Intermediate GOOFY Verified 09/21/18 08:44 zolpidem Allergy Intermediate UNSURE Verified 09/21/18 08:44 Home Medications Home Medications Medication Instructions Recorded Confirmed Type albuterol sulfate [Ventolin HFA] 2 puff INHALATION Q4H PRN 02/08/18 09/21/18 History amiloride 5 mg PO QAM 02/08/18 09/21/18 History aspirin [Aspir-81] 81 mg PO QAM 02/08/18 09/21/18 History atorvastatin 40 mg PO QPM 02/08/18 09/21/18 History bisoprolol fumarate 5 mg PO QAM 02/08/18 09/21/18 History bupropion HCl 300 mg PO QAM 02/08/18 09/21/18 History buspirone 15 mg PO TID 02/08/18 09/21/18 History cholecalciferol (vitamin D3) 2,000 unit PO TID 02/08/18 09/21/18 History [Vitamin D3] clopidogrel [Plavix] 75 mg PO QAM 02/08/18 09/21/18 History cyanocobalamin (vitamin B-12) 1,000 mcg PO DAILY 02/08/18 09/21/18 History [Vitamin B-12] fluticasone propion-salmeterol 1 inh INHALATION Q12H PRN 02/08/18 09/21/18 History [Advair Diskus] gabapentin 300 mg PO TID 02/08/18 09/21/18 History methocarbamol 500 mg PO TID 02/08/18 09/21/18 History montelukast 10 mg PO PM 02/08/18 09/21/18 History multivitamin 1 tab PO QAM 02/08/18 09/21/18 History nortriptyline 150 mg PO HS 02/08/18 09/21/18 History pantoprazole 40 mg PO QAM 02/08/18 09/21/18 History quetiapine 400 mg PO HS 07/29/18 09/21/18 History sertraline 100 mg PO QAM 07/29/18 09/21/18 History allopurinol 100 mg PO BID #0 tab 08/03/18 09/21/18 Rx metoclopramide HCl 5 mg PO AC PRN #0 tab 08/03/18 09/21/18 Rx bumetanide 2 mg PO QAM 09/21/18 09/21/18 History duloxetine 30 mg PO QAM 09/21/18 09/21/18 History famotidine 20 mg PO QAM 09/21/18 09/21/18 History Past Med/Surg History Medical History Chronic pain TIA (transient ischemic attack) 2017- ON PLAVIX Left leg weakness Acid reflux CONTROLLED Asthma STABLE CKD (chronic kidney disease) stage 3, GFR 30-59 ml/min Chronic back pain 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; 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- DISCOVERED WITH INCIDENTAL IMAGING Depression Gout Hyperlipidemia Hypertension Morbid obesity Surgical History H/O total knee replacement B/L H/O ventral hernia repair History of appendectomy History of carpal tunnel release B/L History of cholecystectomy Family History Father Coronary heart disease [place] x 2 Diabetes Mother Diabetes Other Cancer Hypertension Social History Preferred Language: Khmer 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 Ability: Effective Vp Scientific Required: No Beliefs That Will Affect Care: None marital status details: ; lives with parents & 1 daughter Current Living Situation: Family Current Living Situation Comment: Lives in [place] current occupational status: disabled Other Information That Helps Us Care for You: No other: worked in [employer] in [employer]; worked for [employer] district Feels Safe at Home: Yes Safety Concerns: Feels Safe At This Time Smoking Status: Never smoker Do You Dip or Chew Tobacco: No Second Hand Expos ure: No Tobacco Cessation Education Requested by Patient: No Hx Alcohol Use: No Hx Substance Use: No Review of Systems All systems reviewed & are unremarkable except as noted in HPI & below Physical Exam Constitutional: WD/WN, vitals as above Eyes: PERRL, conjunctivae normal, anicteric sclerae ENMT: external ear and nose normal, oropharynx normal Neck: trachea midline, no thyromegaly Respiratory: normal respiratory effort Cardiovascular: RRR, no murmur, no edema Gastrointestinal (Abdomen): normal bowel sounds, soft, nontender, no hepatosplenomegaly Musculoskeletal: Physical examination of the right shoulder reveals decreased range of motion and significant weakness. There is tenderness palpation along the anterior glenohumeral joint line. The right upper extremity is neurovascularly intact. Psychiatric: A+Ox3, euthymic affect Results & Data Diagnostic Findings Radiographs of the right shoulder show some signs of osteoarthritis with blunting of the greater tuberosity. There is [id number] articulation, osteophyte formation, and subchondral sclerosis.
[~2018-10-17 08:47] MED LIST changes: +ACETAMINOPHEN 500 MG TAB PO SCH; -ADVIN25/60 INH; -ALL100 PO; -AMIL5TAB15 PO; -ASPI81TA28 PO; -ATOR-24 PO; -BISO5TAB3 PO; -BUME2TAB3 PO; -BUPR300T43 PO; -BUSP15TA70 PO; -CALC500C2 PO; +CEFAZOLIN 3000MG 65 ML IV SCH; -CHOL20007 PO; -CLOP1TAB54 PO; -CYAN10005 PO; -DULO60CA44 PO; -FAMO20TA11 PO; +FAMOTIDINE 20 MG TAB PO SCH; -FLUT0.15 NAE; -GABA-113 PO; +GABAPENTIN 300 MG x 2 PO SCH; -HYDR-4079 PO; +LR 15ML/HR IV SCH; +LR 60ML/HR IV SCH; -LVNIS40 SQ; -METH-445 PO; -METO5TAB2 PO; -MONT1TAB5 PO; -MULT-506 PO; -NORT50CA PO; -QUET400T PO; +ROPIVACAINE 0.5% 5 MG/ML 30 ML VIAL ONE; +ROPIVACAINE 0.5% HCL/PF 150 MG, BUPIVACAINE 0.5% MPF 30 ML, EPINEPHrine 30MG/30ML (OR U... INFIL SCH; -SENN-61 PO; +TRANEXAMIC ACID 1,000 MG **IV Intra-op IV SCH; +TRANEXAMIC ACID 1,000 MG **IV Pre-op IV SCH; -TRAZ1TAB52 PO; -VNTHFA/IN INH
[2018-10-17] MEDS ORDERED: BUPIVACAINE 0.5 % 5 MG/1 ML PF 10ML VIAL ONE (09:11)
[2018-10-17] MEDS ORDERED: VANCOMYCIN HCL 2,750 MG in SODIUM CHLORIDE 0.9% 500 ML IV SCH ×2 (10:00→22:00)
[2018-10-17] MEDS ORDERED: VANCOMYCIN HCL 2,000 MG in SODIUM CHLORIDE 0.9% 500 ML IV SCH (10:00)
[2018-10-17] MEDS ORDERED: MIDAZOLAM HCL 1 MG/ML 2ML VIAL ONE (10:02)
[2018-10-17] MEDS ORDERED: fentaNYL citrate 100 MCG/2 ML VIAL ONE ×2 (10:02→11:47)
[2018-10-17] MEDS ORDERED: ONDANSETRON INJ 2 MG/ML 2 ML VIAL ONE (10:03)
[2018-10-17] MEDS ORDERED: PROPOFOL IV EMULSION 10 MG/ML 20 ML VIAL IV ONE (10:03)
[2018-10-17] MEDS ORDERED: SUCCINYLCHOLINE CHLORIDE 20 MG/ML 10 ML VIAL ONE (10:03)
[2018-10-17] MEDS ORDERED: KETAMINE HCL INJ 50 MG/ML 10 ML VIAL ONE (10:07)
[2018-10-17] MEDS ORDERED: POVIDONE-IODINE OP SOLN 30 ML BTL ONE (11:01)
[2018-10-17] MEDS ORDERED: ROPIVACAINE 0.5% 5 MG/ML 30 ML VIAL ONE (11:02)
--- NOTE | 2018-10-17 11:26 | History & Physical Bridge Note ---
Date of Service October 17, 2018 History & Physical Bridge Note I have examined the patient, reviewed the History & Physical and in the interval since the performance of the History & Physical I have noted the following changes of clinical significance: no changes noted
[2018-10-17] MEDS ORDERED: ONDANSETRON INJ 2 MG/ML 2 ML VIAL IV PRN ×2 (11:58→14:34)
[2018-10-17] MEDS ORDERED: fentaNYL citrate 100 MCG/2 ML VIAL IV PRN (11:58)
[2018-10-17] MEDS ORDERED: ePHEDrine sulfate 50 MG/ML AMP IV PRN (11:58)
[2018-10-17] MEDS ORDERED: ATROPINE SULFATE 0.1 MG/ML 10ML SYR IV PRN (11:58)
[2018-10-17] MEDS ORDERED: PHENYLEPHRINE 100MCG/ML 5ML SYR ONE (12:13)
[2018-10-17] MEDS ORDERED: ePHEDrine sulfate 50 MG/ML SYR ONE (12:13)
--- NOTE | 2018-10-17 13:32 | Operative Report ---
Post Operative Report Pre & Post Diagnosis Operation Date: 10/17/18 11:20 Pre-Op Diagnosis: Primary osteoarthritis of the right shoulder Post-Op Diagnosis: Primary osteoarthritis of the right shoulder Procedure Operation Date: 10/17/18 11:20 Actual Procedures p Right Reverse Shoulder Replacement(Right) - Jevon Longoria DO Surgeon Jevon Longoria DO [employer] Jevon Bain PAC Estimated Blood Loss 350 Findings Consistent with Post-Op Diagnosis Specimens Right humeral head Complications none Disposition Disposition: Recovery Room Indications Kriss is a pleasant 58-year-old female with multiple medical comorbidities. She is been dealing with severe right shoulder pain. X-rays and clinical examination were diagnostic for advanced osteoarthritis of the right shoulder. She is morbidly obese and has chronic kidney disease. She is fairly unhealthy. Her right shoulder has been severely affecting her quality of life. After failing extensive conservative treatment, she elected to proceed with a right reverse shoulder arthroplasty. I thought a reverse shoulder arthroplasty would be her best option given her body habitus and her lack of motion. Description of Procedure This case took about 50% longer than a standard reverse shoulder arthroplasty. She had a BMI of 57. This led to increased time with dissection and increased difficulty with retraction throughout the case. Implants used: I used a [employer] Comprehensive reverse total shoulder arthroplasty system with a size 15 press fit mini humeral stem, a standard humeral tray and a standard humeral bearing, a 25 mm mini baseplate with a 6.5 mm central screw and superior and inferior locking screws, and a size 36 mm eccentric eccentric glenosphere. The patient arrived at [facility] for the above procedure. There w ere seen in the preoperative holding area and the operative extremity was identified and signed. They were given a preoperative antibiotic and an interscalene nerve block. They were taken back to the operating room, laid on table in supine position, and put under general anesthesia. They were then put into the beachchair position. The shoulder was then prepped and draped in sterile fashion. A timeout was done and the patient in the operative extremity was properly identified. A deltopectoral approach was used. Dissection was taken down through the fascia and the deltoid was retracted laterally and the conjoined tendon was retracted medially. The anterior shoulder was exposed. The long head of the biceps tendon was tenodesed to the upper border of the pectoralis major. The subscap ularis was then released off the lesser tuberosity with a centimeter of cuff tissue remaining. The inferior capsule was released and the humeral head was dislocated. A canal finding reamer was sent down the center of the humeral canal. Sequential reaming up to a size 15 reamer was done. Off that reamer, a proximal humeral resection guide was placed. The proximal humerus was resected at 135 of inclination and 25 of retroversion. Osteophytes were then removed and the glenoid was exposed. Time was spent doing a complete capsular and labral release. The glenoid guide was then placed in the inferior aspect of the glenoid. A 3.2 mm Steinmann pin was then placed into the glenoid vault at 10 of inclination. The glenoid baseplate was then reamed. The final size 25 mm mini baseplate was then impacted in the place. A 6.5 mm central screw was then placed followed by superior and inferior locking screws. A 36 mm eccentric glenoid sphere was then impacted into place. Surrounding soft tissues were then injected with 100 cc an orthopedic pain control cocktail. The proximal humerus was then exposed. Sequential broaching of the humerus up to a size 15 broach was done. Off that broach a standard humeral tray was trialed. The shoulder was then reduced, brought through a full range of motion and felt to be stable. The shoulder was then dislocated and the broach was removed. The final size 15 mini press-fit humeral stem was then impacted into place. A standard humeral bearing was then snapped onto a standard humeral tray and the ring-lock mechanism was engaged. The humeral tray was then impacted onto the humeral stem. The shoulder was once again reduced, brought through a full range of motion and felt to be stable. The subscapularis was then tenodesed back to the lesser tuberosity with transosseous FiberWire sutures and side to side sutures with the arm in 45 of external rotation. A dilute betadyne lavage was then done for 3 minutes. The joint was then irrigated with normal saline solution. Hemostasis was obtained. The skin was then closed with 2-0 Vicryl, 3-0V lock suture, and pop. A soft dressing and a regular arm sling was placed. The patient was then extubated and transferred to a hospital bed. They were taken to the postanesthesia care unit in stable condition. They tolerated the procedure well. I attest to the content of the Intraoperative Record and any orders documented therein. Any exceptions are noted below.
--- NOTE | 2018-10-17 14:16 | Anesthesiology Progress Note ---
Date of Service October 17, 2018 Anesthesia Post Procedure Vital Signs Vital Signs: Temp Pulse Resp BP Pulse Ox 10/17/18 14:10 75 16 115/73 97 10/17/18 14:00 74 16 140/65 99 10/17/18 13:52 97.2 F L 76 14 108/74 98 10/17/18 09:38 97.7 F 78 20 135/65 96 Pain Intensity Right Shoulder: Pain Intensity: 8 Transfer of Care Handoff Completed per policy Notes Mental Status: alert / awake / arousable and participated in evaluation Patient Amnestic to Procedure: Yes Nausea / Vomiting: adequately controlled Pain: adequately controlled Airway Patency, RR, SpO2: stable & adequate BP & HR: stable & adequate Hydration State: stable & adequate Anesthetic Complications: no major complications apparent and Pt Satisfied with anesthetic care
--- NOTE | 2018-10-17 14:23 | XRay Report ---
XR shoulder RT min 2V routine HISTORY: 58 years-old Female Post shoulder surgery right shoulder arthroplasty COMPARISON: Chest radiograph 07/29/2018 TECHNIQUE: 2 views of the right shoulder FINDINGS: Reverse right shoulder total joint arthroplasty with overlying skin pop. There is satisfactory al ignment without acute fracture. Expected postsurgical soft tissue swelling and deep tissue air. Moder ate degenerative changes about the right AC joint. IMPRESSION: Reverse right shoulder total joint arthroplasty demonstrates satisfactory alignment. The above report was generated using voice recognition software. It may contain grammatical, syntax o r spelling errors. Electronically signed by: Ortega Todd M.D. 10/17/2018 2:22 PM
[2018-10-17] MEDS ORDERED: VANCOMYCIN CONSULT ACTIVE PRN (14:34)
[2018-10-17] MEDS ORDERED: NALOXONE HCL 0.4 MG/1 ML VIAL/CARP IV PRN (14:34)
[2018-10-17] MEDS ORDERED: BusPIRone 15 MG TAB PO SCH (14:34)
[2018-10-17] MEDS ORDERED: BISACODYL 10 MG SUPP PR PRN (14:34)
[2018-10-17] MEDS ORDERED: MAGNESIUM HYDROXIDE SUSP 30 ML UDC PO PRN (14:34)
[2018-10-17] MEDS ORDERED: HYDROmorphone INJ 0.5 MG/0.5 ML SYR IV PRN (14:34)
[2018-10-17] MEDS ORDERED: FLUTICASONE/SALMETEROL 250/50 (ADVAIR) 14 PUFF/1 INHALER INH PRN (14:34)
[2018-10-17] MEDS ORDERED: METOCLOPRAMIDE HCL INJ 5 MG/ML 2 ML VIAL IV PRN (14:34)
[2018-10-17] MEDS ORDERED: ALBUTEROL HFA 8 GM INHALER INH PRN (14:34)
[2018-10-17] MEDS: SODIUM CHLORIDE 0.9% 1000ML 1,000 ML IV SCH (16:17)
[2018-10-17] MEDS: CHOLECALCIFEROL 1,000 UNITS TAB PO SCH ×2 (16:44→20:10)
[2018-10-17] MEDS: GABAPENTIN 300 MG CAP PO SCH ×2 (16:44→20:09)
[2018-10-17] MEDS: BUSPIRONE HCL 7.5 MG TAB PO SCH ×2 (16:46→21:27)
[2018-10-17] MEDS: HYDROCODONE/ACETAMINOPHEN 10/325 TAB PO PRN (19:51)
[2018-10-17] MEDS: ALLOPURINOL 100 MG TAB PO SCH (20:09)
[2018-10-17] MEDS: DOCUSATE SODIUM 100 MG CAP PO SCH (20:10)
[2018-10-17] MEDS ORDERED: SENNA 8.6 MG TAB PO SCH (21:00)
[2018-10-17] MEDS ORDERED: ATORVASTATIN 40 MG TAB PO SCH (21:00)
[2018-10-17] MEDS ORDERED: QUETIAPINE FUMARATE 200 MG TAB PO SCH (21:00)
[2018-10-17] MEDS ORDERED: MONTELUKAST SODIUM 10 MG TABLET PO SCH (21:00)
[2018-10-17] MEDS ORDERED: NORTRIPTYLINE HCL 25 MG CAP PO SCH (21:00)
[2018-10-18] MEDS ORDERED: MICONAZOLE NITRATE POWDER 43 GM EXT PRN (03:32)
[2018-10-18] MEDS: HYDROCODONE/ACETAMINOPHEN 10/325 TAB PO PRN (03:59)
[2018-10-18] MEDS: SODIUM CHLORIDE 0.9% 1000ML 1,000 ML IV SCH (05:03)
[2018-10-18 06:35] LABS: Basophils # (auto) 0.02 K/uL (0-0.2); Basophils % (auto) 0.2 %; Eosinophils # (auto) 0.12 K/uL (0-0.5); Eosinophils % (auto) 1.2 %; Hematocrit (blood only) 34.8 % (37-47); Hemoglobin 10.9 g/dL (12.0-16.0); Immature Granulocytes # (auto) 0.02 K/uL (0.00-0.02); Immature Granulocytes % (auto) 0.2 %; Lymphocytes # (auto) 1.11 K/uL (1.2-3.4); Lymphocytes % (auto) 10.8 %; Mean Corpuscular Hgb Conc 31.3 g/dL (32-36); Mean Corpuscular Volume 82.5 fL (80-100); Mean Platelet Volume 9.5 fL (7.4-10.4); Monocytes % (auto) 5.9 %; Neutrophils # (auto) 8.38 K/uL (1.4-6.5); Neutrophils % (auto) 81.7 %; Platelet Count 197 K/uL (130-400); RDW Coefficient of Variation 15.9 % (11.5-14.5); RDW Standard Deviation 48.1 fL (36.4-46.3); Red Blood Count 4.22 M/uL (4.2-5.4); White Blood Count 10.25 K/uL (4.8-10.8)
[2018-10-18] MEDS ORDERED: HYDROmorphone HCL 2 MG TAB PO PRN (07:05)
[2018-10-18 07:11] LABS: BUN Creatinine Ratio 8.4 (10-20); Calcium 8.4 mg/dl (8.5-10.1); Creatinine Clr Calc Pharmacy 85.8 ml/min; Est GFR (African American) 59.7; Est GFR (Non-African American) 51.5; Potassium 3.6 mmol/L (3.5-5.1)
--- NOTE | 2018-10-18 07:11 | Orthopedic Progress Note ---
Date of Service October 18, 2018 Assessment & Plan (1) Rotator cuff arthropathy of right shoulder: Overall she is doing fairly well. She is having some soreness in the shoulder but is to be expected. She says the [place] is not helping her at all some going to switch her to oxycodone. She will be seen by physical therapy today for range of motion exercises. She is orthopedically stable for discharge when a bed becomes available at a rehab facility. She can follow-up with orthopedics in 2 weeks. Present on Admission?: Yes Subjective Kriss was seen and examined at bedside this morning. Unfortunately she is having a lot of soreness in the shoulder. There is nothing that is unexpected. She was able to get a little bit of sleep last night. She has no other complaints. Physical Exam Musculoskeletal: On physical examination of her right shoulder, the dressing is clean and dry. She is wearing her sling as instructed. Her radial, median, and ulnar nerves are checked and intact at the wrist. Her axillary nerve was not checked yet. Results & Data Vital Signs (Past 12 Hours) Vital Signs Temp Pulse Resp BP Pulse Ox 10/18/18 04:34 36.6 C 77 18 143/85 H 97 10/17/18 23:50 36.6 C 75 18 121/80 96 10/17/18 19:40 36.8 C 73 18 114/75 98 Laboratory Results H & H 10/03/18 10/18/18 Range/Units 12:27 06:15 Hgb 12.6 10.9 L (12.0-16.0) g/dL Hct 39.4 34.8 L (37-47) % Coagulation 10/03/18 Range/Units 12:27 INR 1.0 (0.9-1.1) Diagnostic Findings Postoperative x-rays of the right shoulder show the prosthesis to be in anatomic alignment without any evidence of fracture, dislocation, or loosening.
[2018-10-18] MEDS ORDERED: OXYCODONE/APAP 7.5/325MG TAB PO PRN (07:12)
[2018-10-18] MEDS ORDERED: OXYCODONE HCL IR 5 MG TAB (IMMEDIATE RELEASE) PO PRN (07:14)
[2018-10-18] MEDS: BUSPIRONE HCL 7.5 MG TAB PO SCH ×2 (08:53→13:31)
[2018-10-18] MEDS: ALLOPURINOL 100 MG TAB PO SCH (08:54)
[2018-10-18] MEDS: CHOLECALCIFEROL 1,000 UNITS TAB PO SCH ×2 (08:54→13:31)
[2018-10-18] MEDS: GABAPENTIN 300 MG CAP PO SCH ×2 (08:54→13:32)
[2018-10-18] MEDS: DOCUSATE SODIUM 100 MG CAP PO SCH (08:55)
[2018-10-18] MEDS: METOCLOPRAMIDE HCL 5 MG TABLET PO PRN ×2 (08:55→13:32)
[2018-10-18] MEDS ORDERED: PANTOprazole 40 MG TAB PO SCH (09:00)
[2018-10-18] MEDS ORDERED: CLOPIDOGREL BISULFATE 75 MG TAB PO SCH (09:00)
[2018-10-18] MEDS ORDERED: DULOXETINE HCL 30 MG CAP PO SCH (09:00)
[2018-10-18] MEDS ORDERED: SERTRALINE HCL 100 MG TABLET PO SCH (09:00)
[2018-10-18] MEDS ORDERED: BuPROPion XL 300 MG TABCR PO SCH (09:00)
[2018-10-18] MEDS ORDERED: ASPIRIN 81 MG ECTAB PO SCH (09:00)
[2018-10-18] MEDS ORDERED: MULTIVITAMIN TAB PO SCH (09:00)
[2018-10-18] MEDS ORDERED: BUMETANIDE 1 MG TAB PO SCH (09:00)
[2018-10-18] MEDS ORDERED: FAMOTIDINE 20 MG TAB PO SCH (09:00)
--- NOTE | 2018-10-18 10:16 | Anesthesiology Progress Note ---
Date of Service October 18, 2018 Anesthesia Post Procedure Vital Signs Vital Signs: Temp Pulse Pulse Pulse Resp BP Pulse Ox 10/18/18 08:30 36.6 C 86 18 139/84 90 10/18/18 04:34 36.6 C 77 18 143/85 H 97 10/17/18 23:50 36.6 C 75 18 121/80 96 10/17/18 19:40 36.8 C 73 18 114/75 98 10/17/18 17:44 36.3 C L 70 17 122/70 97 10/17/18 16:40 36.3 C L 68 16 105/72 96 10/17/18 15:40 36.4 C L 68 17 122/81 94 10/17/18 15:10 70 20 115/79 94 10/17/18 14:40 36.4 C L 73 18 128/81 96 10/17/18 14:25 36.4 C L 72 16 107/78 97 10/17/18 14:10 75 16 115/73 97 10/17/18 14:00 74 16 140/65 99 10/17/18 13:52 36.2 C L 76 14 108/74 98 Notes Mental Status: alert / awake / arousable and participated in evaluation Nausea / Vomiting: adequately controlled Pain: adequately controlled Airway Patency, RR, SpO2: stable & adequate BP & HR: stable & adequate Hydration State: stable & adequate
--- NOTE | 2018-10-19 06:34 | Discharge Summary ---
Date of Service October 19, 2018 Admission HPI Per Admitting Provider Kriss is a 58-year-old female who is been having a year long history of increasing right shoulder pain. She denies any acute injuries or traumas. MRI and x-rays of her shoulder were diagnostic for advanced osteoarthritis with small rotator cuff tear. She has been unable to get her arm above chest level for a long time. She recently had bilateral knee replacements and did well with those. Unfortunately her shoulders significantly affecting her quality of life. She has failed extensive conservative treatment including injections as well as physical therapy. She has multiple chronic medical comorbidities. After long discussions in the office, she is elected proceed with a reverse right shoulder arthroplasty. Specialty Data Orthopedic H & H 10/03/18 10/18/18 Range/Units 12:27 06:15 Hgb 12.6 10.9 L (12.0-16.0) g/dL Hct 39.4 34.8 L (37-47) % Coagulation 10/03/18 Range/Units 12:27 INR 1.0 (0.9-1.1) Discharge Data Consultations 10/17/18 14:34 Consult Case Management - Discharge Planning Routine Procedures Performed Operation Date: 10/17/18 11:20 Actual Procedures p Right Reverse Shoulder Replacement(Right) - Jevon Longoria DO Hospital Course (1) Rotator cuff arthropathy of right shoulder: On October 17, 2018 Trevor arrived at [facility] and underwent a right reverse shoulder arthroplasty without complication. She had a general anesthetic and a right interscalene nerve block. Postoperatively she was placed in arm sling and discharged to general orthopedic floors. Her hospital course was uneventful. On postop day #1 her H&H was stable and her pain was well controlled. She was able to participate well with physical therapy. She had concerns about returning home so [facility]. She will follow-up with orthopedics in 2 weeks. Discharge Instructions Home Medications Medication Instructions Recorded Confirmed amiloride 5 mg PO QAM 02/08/18 10/17/18 aspirin [Aspir-81] 81 mg PO QAM 02/08/18 10/17/18 atorvastatin 40 mg PO QPM 02/08/18 10/17/18 bisoprolol fumarate 5 mg PO QAM 02/08/18 10/17/18 bupropion HCl 300 mg PO QAM 02/08/18 10/17/18 buspirone 15 mg PO TID 02/08/18 10/17/18 cholecalciferol (vitamin D3) 2,000 unit PO TID 02/08/18 10/17/18 [Vitamin D3] clopidogrel [Plavix] 75 mg PO QAM 02/08/18 10/17/18 cyanocobalamin (vitamin B-12) 1,000 mcg PO DAILY 02/08/18 10/17/18 [Vitamin B-12] gabapentin 300 mg PO TID 02/08/18 10/17/18 methocarbamol 500 mg PO TID 02/08/18 10/17/18 montelukast 10 mg PO PM 02/08/18 10/17/18 multivitamin 1 tab PO QAM 02/08/18 10/17/18 nortriptyline 150 mg PO HS 02/08/18 10/17/18 pantoprazole 40 mg PO QAM 02/08/18 10/17/18 quetiapine 400 mg PO HS 07/29/18 10/17/18 sertraline 100 mg PO QAM 07/29/18 10/17/18 bumetanide 2 mg PO QAM 09/21/18 10/17/18 duloxetine 30 mg PO QAM 09/21/18 10/17/18 famotidine 20 mg PO QAM 09/21/18 10/17/18 Previous Rx's Medication Instructions Recorded allopurinol 100 mg PO BID #0 tab 08/03/18 metoclopramide HCl 5 mg PO AC PRN #0 tab 08/03/18 albuterol sulfate HFA 90 2 puff INHALATION Q4H PRN #18 gm 10/17/18 mcg/actuation aerosol inhaler fluticasone 250 mcg-salmeterol 50 1 inh INHALATION Q12H PRN #60 ea 10/17/18 mcg/dose blistr powdr for inhalation oxycodone 5 mg PO Q6H PRN #40 cap 10/18/18
== END 2018-10-18 18:13 | DRG 483 ==
LOC: ASU 08:47 → 3E 13:59

== ENCOUNTER 2019-06-16 16:20 | Inpatient (IN) ==
[2019-06-16] MEDS ORDERED: VANCOMYCIN HCL 2,750 MG in SODIUM CHLORIDE 0.9% 500 ML IV ONE (19:23)
[2019-06-16] MEDS ORDERED: VANCOMYCIN CONSULT ACTIVE PRN ×2 (19:23→21:27)
[2019-06-16] MEDS ORDERED: CEFEPIME 2,000 MG/20 ML VIAL IV STA (19:23)
[2019-06-16 19:55] LABS: Basophils # (auto) 0.02 K/uL (0-0.2); Basophils % (auto) 0.2 %; Eosinophils % (auto) 3.2 %; Hematocrit (blood only) 37.9 % (37-47); Hemoglobin 12.2 g/dL (12.0-16.0); Immature Granulocytes # (auto) 0.02 K/uL (0.00-0.02); Immature Granulocytes % (auto) 0.2 %; Lymphocytes # (auto) 2.36 K/uL (1.2-3.4); Lymphocytes % (auto) 25.1 %; Mean Corpuscular Hemoglobin 25.9 pg (25-34); Mean Corpuscular Hgb Conc 32.2 g/dL (32-36); Mean Corpuscular Volume 80.5 fL (80-100); Monocytes # (auto) 0.66 K/uL (0.11-0.59); Neutrophils # (auto) 6.03 K/uL (1.4-6.5); Neutrophils % (auto) 64.3 %; Platelet Count 262 K/uL (130-400); RDW Coefficient of Variation 15.8 % (11.5-14.5); RDW Standard Deviation 46.6 fL (36.4-46.3); Red Blood Count 4.71 M/uL (4.2-5.4); White Blood Count 9.39 K/uL (4.8-10.8)
--- NOTE | 2019-06-16 20:02 | XRay Report ---
XR chest 1V portable HISTORY: 58 years-old Female SEPSIS acute sepsis COMPARISON: Chest radiograph 07/29/2018 TECHNIQUE: Portable AP view of the chest FINDINGS: Cardiac silhouette is enlarged, unchanged linear subsegmental atelectasis/scarring of the retrocardia c left lung base. No pneumothorax, pleural effusion, focal airspace consolidation or overt pulmonary edema. Right shoulder arthroplasty. Degenerative changes of the left shoulder and spine. IMPRESSION: Cardiomegaly without acute process. ACT 112: Negative or not required by law. The above report was generated using voice recognition software. It may contain grammatical, syntax o r spelling errors. Electronically signed by: Ortega Todd M.D. 06/16/2019 8:01 PM
--- NOTE | 2019-06-16 20:04 | XRay Report ---
XR tibia fibula RT 2V, XR foot RT 2V HISTORY: 58 years-old Female cellulitis eval for osseous involvement acute pain and swelling of the right lower leg and foot COMPARISON: None available TECHNIQUE: 2 views of the right tibia and fibula and 2 views of the right foot FINDINGS: TIBIA/FIBULA: Diffuse soft tissue prominence of the lower leg. There are a few tiny soft tissue calcifications note d. No opaque foreign body identified. No acute fracture, dislocation or bony erosion. Right knee tota l joint arthroplasty with suggested knee joint effusion. No evidence of hardware complication. FOOT: Prominent spurring of the calcaneus with mild to moderate multifocal osteoarthritis. No acute fractur e, dislocation or bony erosion identified. Diffuse soft tissue prominence. Type II accessory navicula r. IMPRESSION: 1. Diffuse soft tissue prominence without acute fracture or dislocation. 2. Degenerative changes as above. ACT 112: Negative or not required by law. The above report was generated using voice recognition software. It may contain grammatical, syntax o r spelling errors. Electronically signed by: Ortega Todd M.D. 06/16/2019 8:03 PM
[2019-06-16 20:11] LABS: Partial Thromboplastin Time 26.7 Seconds (21.0-31.0); Prothrombin Time 10.5 Seconds (9.0-12.0)
--- NOTE | 2019-06-16 20:25 | History & Physical Report ---
Date of Service June 16, 2019 Assessment & Plan (1) Cellulitis of right lower leg: Admit tele failed outpatient treatment with Keflex and Clindamycin Complicated by underlying lymphedema IV Vanco and IV Cefepime Pain control DVT prophylaxis = sub-q heparin (2) CKD (chronic kidney disease) stage 3, GFR 30-59 ml/min: Will monitor renal function. (3) Hypertension: Continue Bystolic, bumetanide, and amiloride. (4) Hyperlipidemia: Continue atorvastatin (5) Depression with anxiety: Continue aripiprazole in am, and Seroquel at night Continue bupropion, buspirone, Cymbalta, sertraline, trazodone, and nortriptyline. (6) Gout: Continue allopurinol (7) Acid reflux: Continue Protonix and Pepcid. (8) History of CVA (cerebrovascular accident): Continue Plavix and aspirin (9) Asthma: Continue Advair diskus, prn albuterol nebs, and montelukast. (10) Lumbar spinal stenosis: Continue gabapentin, methocarbamol prn, and oxycodone prn. History of Present Illness 58 y/o female presented to the ED with redness and pain of the right lower leg and ankle. She reports that she chronically uses Keflex to prevent cellulitis and that she was recently started on Clindamycin. However the redness and the pain worsened. No F/C, cough, SOB, chest pain, N/V/D. Primary Care Provider: Etelvina Cazares DO Allergies Allergy/AdvReac Type Severity Reaction Status Date / Time Corticosteroids Allergy Intermediate RASH Verified 06/16/19 19:43 (Glucocorticoids) morphine Allergy Intermediate MOUTH Verified 06/16/19 19:43 SWELLS/FACE SWELLS orange Allergy Intermediate HIVES Verified 06/16/19 19:43 Penicillins Allergy Intermediate RASH/HIVES Verified 06/16/19 19:43 prednisone Allergy Intermediate RED RASH Verified 06/16/19 19:43 pregabalin Allergy Intermediate GOOFY Verified 06/16/19 19:43 zolpidem Allergy Intermediate UNSURE Verified 06/16/19 19:43 orange (food color) Allergy Mild rash Verified 06/16/19 19:43 Home Medications Home Medications Medication Instructions Recorded Confirmed Type albuterol sulfate 90 mcg/actuation 2 puff INHALATION Q4H PRN #18 gm 10/17/18 06/16/19 Rx aerosol inhaler fluticasone 250 mcg-salmeterol 50 1 inh INHALATION Q12H PRN #60 ea 10/17/18 06/16/19 Rx mcg/dose blistr powdr for inhalation amiloride 5 mg tablet 5 mg PO QAM #30 tab 11/03/18 06/16/19 Rx bisoprolol fumarate 5 mg tablet 5 mg PO QAM #30 tab 11/03/18 06/16/19 Rx bupropion HCl 300 mg 24 hr tablet, 300 mg PO QAM #30 tab 11/03/18 06/16/19 Rx extended release famotidine 20 mg tablet 20 mg PO QAM #30 tab 11/03/18 06/16/19 Rx acetaminophen 500 mg tablet 500 mg PO Q4H PRN #30 tab 11/09/18 06/16/19 Rx aspirin 81 mg tablet,delayed 81 mg PO QAM #30 tab 11/09/18 06/16/19 Rx release buspirone 15 mg tablet 15 mg PO TID #30 tab 11/09/18 06/16/19 Rx calcium carbonate 300 mg (750 mg) 900 mg PO DAILY PRN #30 tab 11/09/18 06/16/19 Rx chewable tablet cholecalciferol (vitamin D3) 50 2,000 unit PO TID #30 cap 11/09/18 06/16/19 Rx mcg (2,000 unit) capsule cyanocobalamin (vitamin B-12) 1,000 mcg PO DAILY #30 tab 11/09/18 06/16/19 Rx 1,000 mcg tablet fluticasone propionate 50 2 sprays INTRANASAL DAILY #9.9 gm 11/09/18 06/16/19 Rx mcg/actuation nasal spray,suspension gabapentin 300 mg capsule 300 mg PO TID #90 cap 11/09/18 06/16/19 Rx methocarbamol 500 mg tablet See Rx Instructions PO TID PRN #90 11/09/18 06/16/19 Rx tab montelukast 10 mg tablet 10 mg PO PM #30 tab 11/09/18 06/16/19 Rx multivitamin 1 tab PO QAM #30 tab 11/09/18 06/16/19 Rx quetiapine 400 mg tablet 400 mg PO HS #30 tab 11/09/18 06/16/19 Rx aripiprazole 2 mg tablet 2 mg PO DAILY 01/31/19 06/16/19 History compress.stocking,knee,reg,med #2 ea 01/31/19 01/31/19 Rx duloxetine 30 mg capsule,delayed 30 mg PO QAM #90 cap 01/31/19 06/16/19 Rx release metoclopramide HCl 5 mg tablet 5 mg PO QID PRN tab 01/31/19 06/16/19 History sertraline 100 mg tablet 200 mg PO DAILY tab 01/31/19 06/16/19 History trazodone 150 mg tablet 150 mg PO HS tab 01/31/19 06/16/19 History cephalexin 500 mg capsule 500 mg PO Q12H #60 cap 02/27/19 06/16/19 Rx bumetanide 2 mg tablet 2 mg PO .COMPLEX #45 tab 04/12/19 06/16/19 Rx pantoprazole 40 mg tablet,delayed 40 mg PO QAM #30 tab 04/17/19 06/16/19 Rx release nortriptyline 50 mg capsule 150 mg PO HS #90 cap 04/24/19 06/16/19 Rx atorvastatin 40 mg tablet 40 mg PO DAILY #90 tab 04/27/19 06/16/19 Rx clopidogrel 75 mg tablet 75 mg PO DAILY #90 tab 04/27/19 06/16/19 Rx oxycodone 5 mg tablet 5 mg PO Q6H PRN #90 tab 06/05/19 06/16/19 Rx allopurinol 100 mg tablet 100 mg PO BID #180 tab 06/07/19 06/16/19 Rx clindamycin HCl 300 mg PO QID 06/16/19 06/16/19 History Past Med/Surg History Medical History Acid reflux Allergic rhinitis Arthritis Asthma Chronic back pain Chronic cutaneous venous stasis ulcer (Resolved) CKD (chronic kidney disease) stage 3, GFR 30-59 ml/min 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; 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- DISCOVERED WITH INCIDENTAL IMAGING Degenerative joint disease, shoulder, right (Resolved) Depression with anxiety Gout History of CVA (cerebrovascular accident) Hyperlipidemia Hypertension Left leg weakness (Resolved) Lumbar spinal stenosis Lymphedema Morbid obesity Other ovarian cyst, left side Peripheral neuropathy TIA (transient ischemic attack) 2017- ON [place] Vitamin D deficiency Surgical History H/O total knee replacement B/L H/O ventral hernia repair History of appendectomy History of carpal tunnel release B/L History of cholecystectomy S/P tonsillectomy and adenoidectomy Status post total shoulder arthroplasty (10/17/18) R Family History Father Coronary heart disease MT x 2 Diabetes Lung disease Hypertension Gallbladder disease Myocardial infarction Mother Diabetes Gallbladder disease Hypertension Coronary heart disease Myocardial infarction S/P CABG x 3 Sister Hodgkins lymphoma Brother Kidney disease Grandmother Breast cancer Aunt Ovarian cancer Other Cancer Social History Preferred Language: Serbian 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 Ability: Effective Art Coordinator Required: No Beliefs That Will Affect Care: None marital status details: ; lives with parents & 1 daughter Current Living Situation: Family Current Living Situation Comment: Lives in [place] current occupational status: disabled Other Information That Helps Us Care for You: No other: 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 Lungs- CTA b/l no R/r/W. Heart- regular rhythm; no murmur, no gallop, no rub appreciated Abdomen- normal bowel sounds, soft, nontender. Extremities- no calf tenderness; peripheral pulses intact, + chronic lymphedema to b/l lower ext. 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 Skin- bright erythema from right ankle to mid calf. +tenderness to the touch. Results & Data Vital Signs (Past 12 Hours) Vital Signs Temp Pulse Resp BP Pulse Ox 06/16/19 16:23 36.8 C 82 18 129/86 98 Laboratory Results Laboratory Results WBC 9.39 K/uL (4.8-10.8) 06/16/19 19:42 RBC 4.71 M/uL (4.2-5.4) 06/16/19 19:42 Hgb 12.2 g/dL (12.0-16.0) 06/16/19 19:42 Hct 37.9 % (37-47) 06/16/19 19:42 MCV 80.5 fL (80-100) 06/16/19 19:42 MCH 25.9 pg (25-34) 06/16/19 19:42 MCHC 32.2 g/dL (32-36) 06/16/19 19:42 RDW Std Deviation 46.6 fL (36.4-46.3) H 06/16/19 19:42 RDW Coeff of Cleo 15.8 % (11.5-14.5) H 06/16/19 19:42 Plt Count 262 K/uL (130-400) 06/16/19 19:42 MPV 10.0 fL (7.4-10.4) 06/16/19 19:42 Immature Gran % (Auto) 0.2 % 06/16/19 19:42 Neut % (Auto) 64.3 % 06/16/19 19:42 Lymph % (Auto) 25.1 % 06/16/19 19:42 Whiteside % (Auto) 7.0 % 06/16/19 19:42 Eos % (Auto) 3.2 % 06/16/19 19:42 Baso % (Auto) 0.2 % 06/16/19 19:42 Immature Gran # (Auto) 0.02 K/uL (0.00-0.02) 06/16/19 19:42 Neut # (Auto) 6.03 K/uL (1.4-6.5) 06/16/19 19:42 Lymph # (Auto) 2.36 K/uL (1.2-3.4) 06/16/19 19:42 Whiteside # (Auto) 0.66 K/uL (0.11-0.59) H 06/16/19 19:42 Eos # (Auto) 0.30 K/uL (0-0.5) 06/16/19 19:42 Baso # (Auto) 0.02 K/uL (0-0.2) 06/16/19 19:42 PT 10.5 Seconds (9.0-12.0) 06/16/19 19:42 INR 1.0 (0.9-1.1) 06/16/19 19:42 APTT 26.7 Seconds (21.0-31.0) 06/16/19 19:42 PTT Ratio 1.0 06/16/19 19:42 Sodium 139 mmol/L (136-145) 06/16/19 19:42 Potassium 3.3 mmol/L (3.5-5.1) L 06/16/19 19:42 Chloride 99 mmol/L (98-107) 06/16/19 19:42 Carbon Dioxide 36 mmol/L (21-32) H 06/16/19 19:42 Anion Gap 4.0 (3-11) 06/16/19 19:42 BUN 12 mg/dl (7-18) 06/16/19 19:42 Creatinine 1.31 mg/dl (0.6-1.2) H 06/16/19 19:42 Est Cr Clr Drug Dosing 86.7 ml/min 06/16/19 19:42 Est GFR ( Amer) 52.6 06/16/19 19:42 Est GFR (Non-Af Amer) 45.4 06/16/19 19:42 BUN/Creatinine Ratio 9.2 (10-20) L 06/16/19 19:42 Glucose 98 mg/dl (70-99) 06/16/19 19:42 Lactate 1.1 mmol/L (0.4-2.0) 06/16/19 19:42 Calcium 8.9 mg/dl (8.5-10.1) 06/16/19 19:42 Magnesium 2.1 mg/dl (1.8-2.4) 06/16/19 19:42 Total Bilirubin 0.4 mg/dl (0.2-1) 06/16/19 19:42 AST 17 U/L (15-37) 06/16/19 19:42 ALT 23 U/L (12-78) 06/16/19 19:42 Alkaline Phosphatase 103 U/L (45-117) 06/16/19 19:42 Total Protein 7.5 gm/dl (6.4-8.2) 06/16/19 19:42 Albumin 3.2 gm/dl (3.4-5.0) L 06/16/19 19:42 Globulin 4.3 gm/dl (2.5-4.0) H 06/16/19 19:42 Albumin/Globulin Ratio 0.8 (0.9-2) L 06/16/19 19:42 Hepatitis C Ab Screen Neg (Neg) 06/16/19 19:42 Diagnostic Findings [facility], [place] [phone] XRay Report Patient: CELIO ARGUELLES Date: 06/16/19 MR#: [id number]: [address] Acct ID:[id number]: [address] Date: 1960[facility] [place] [place] [address] Age: 58Location: ED Sex: F Room/Bed: Att Phy:Diagnosis: SWOLLEN LEG CELLULITIS Ijeoma Phy: Etelvina Cazares, DOService Date: 06/16/19 Fam Phy:Interpreting Phy: Reinaldo Todd Admit Phy: Ordering Phy: Giles Burleson M.D. cc: ~ XR chest 1V portable HISTORY: 58 years-old Female SEPSIS acute sepsis COMPARISON: Chest radiograph 07/29/2018 TECHNIQUE: Portable AP view of the chest FINDINGS: Cardiac silhouette is enlarged, unchanged linear subsegmental atelectasis/scarring of the retrocardiac left lung base. No pneumothorax, pleu ral effusion, focal airspace consolidation or overt pulmonary edema. Right shoulder arthroplasty. Degenerative changes of the left shoulder and spine. IMPRESSION: Cardiomegaly without acute process. ACT 112: Negative or not required by law. The above report was generated using voice recognition software. It may contain grammatical, syntax or spelling errors. Electronically signed by: Ortega Todd M.D. 06/16/2019 8:01 PM Dictated: 06/16/191999 Transcribed: 06/16/191999 [facility] [place] [phone] XRay Report Patient: CELIO ARGUELLES Date: 06/16/19 MR#: [id number]: [address] Acct ID:[id number]: [address] [facility] Zip: [place] [address] Age: 58Location: ED Sex: F Room/Bed: Att Phy:Diagnosis: SWOLLEN LEG CELLULITIS Ijeoma Phy: Etelvina Cazares, DOService Date: 06/16/19 Fam Phy:Interpreting Phy: Reinaldo Todd Admit Phy: Ordering Phy: Giles Burleson M.D. cc: ~ XR tibia fibula RT 2V, XR foot RT 2V HISTORY: 58 years-old Female cellulitis eval for osseous involvement acute pain and swelling of the right lower leg and foot COMPARISON: None available TECHNIQUE: 2 views of the right tibia and fibula and 2 views of the right foot FINDINGS: TIBIA/FIBULA: Diffuse soft tissue prominence of the lower leg. There are a few tiny soft tissue calcifications noted. No opaque foreign body identified. No acute fracture, dislocation or bony erosion. Right knee total joint arthroplasty with suggested knee joint effusion. No evidence of hardware complication. FOOT: Prominent spurring of the calcaneus with mild to moderate multifocal osteoarthritis. No acute fracture, dislocation or bony erosion identified. Diffuse soft tissue prominence. Type II accessory navicular. IMPRESSION: 1. Diffuse soft tissue prominence without acute fracture or dislocation. 2. Degenerative changes as above. ACT 112: Negative or not required by law. The above report was generated using voice recognition software. It may contain grammatical, syntax or spelling errors. Electronically signed by: Ortega Todd M.D. 06/16/2019 8:03 PM Code Status & VTE Plan VTE Prophylaxis Plan VTE Prophylaxis will be ordered: Yes PG Care Time/CCT Total # of Minutes Spent Total Time Spent: 55 Total Time Spent with Patient: Total time spent is greater than 50% in coordination of care (as documented) at patient's floor/unit and/or counseling patient: Coding Level of Care Code 98384 Initial Inpt Care Lvl 3 Diagnoses Cellulitis of right lower leg L03.115 CKD (chronic kidney disease) stage 3, GFR 30-59 ml/min N18.3 Hypertension I10 Hyperlipidemia E78.5 Depression with anxiety F41.8 Gout M1A.9XX0 Gout site: unspecified site Gout etiology: unspecified cause Chronicity: chronic Presence of tophus: without tophus Acid reflux K21.9 History of CVA (cerebrovascular accident) Z86.73 Asthma J45.30 Asthma severity: mild Asthma persistence: persistent Asthma complication type: uncomplicated Lumbar spinal stenosis M48.061 (1) Gout Gout site: unspecified site Gout etiology: unspecified cause Chronicity: chronic Presence of tophus: without tophus Qualified Code(s): M1A.9XX0 - Chronic gout, unspecified, without tophus (tophi) (2) Asthma Asthma severity: mild Asthma persistence: persistent Asthma complication type: uncomplicated Qualified Code(s): J45.30 - Mild persistent asthma, uncomplicated
[2019-06-16 20:28] LABS: Albumin Level 3.2 gm/dl (3.4-5.0); BUN Creatinine Ratio 9.2 (10-20); Calcium 8.9 mg/dl (8.5-10.1); Creatinine Clr Calc Pharmacy 86.7 ml/min; Est GFR (African American) 52.6; Est GFR (Non-African American) 45.4; Magnesium 2.1 mg/dl (1.8-2.4); Potassium 3.3 mmol/L (3.5-5.1)
[2019-06-16 20:31] LABS: Albumin Globulin Ratio 0.8 (0.9-2); Bilirubin,Total 0.4 mg/dl (0.2-1); Globulin 4.3 gm/dl (2.5-4.0); Total Protein 7.5 gm/dl (6.4-8.2)
[2019-06-16] MEDS ORDERED: HYDROmorphone INJ 0.5 MG/0.5 ML SYR ONE (20:54)
[2019-06-16] MEDS ORDERED: HYDROmorphone INJ 0.5 MG/0.5 ML SYR IV PRN (21:27)
[2019-06-16] MEDS ORDERED: ALUMINUM/MAGNESIUM SUSP 30 ML UDC PO PRN (21:27)
[2019-06-16] MEDS ORDERED: ONDANSETRON INJ 2 MG/ML 2 ML VIAL IV PRN (21:27)
[2019-06-16] MEDS ORDERED: ALBUTEROL 0.083% NEBU SOLN 3 ML VIAL NEB PRN (21:27)
[2019-06-16] MEDS ORDERED: INFLUENZA ADMINISTRATION CHARGE ONE (21:37)
[2019-06-16] MEDS ORDERED: INFLUENZA VIRUS QUAD VACCINE 0.5 ML SYR IM ONE (21:37)
[2019-06-16] MEDS: NORTRIPTYLINE HCL 25 MG CAP PO SCH (22:37)
[2019-06-16] MEDS: BusPIRone 15 MG TAB PO SCH (22:38)
[2019-06-16] MEDS: QUETIAPINE FUMARATE 200 MG TAB PO SCH (22:38)
[2019-06-16] MEDS: CHOLECALCIFEROL 1,000 UNITS 25 MCG TAB PO SCH (22:38)
[2019-06-16] MEDS: MONTELUKAST SODIUM 10 MG TABLET PO SCH (22:39)
[2019-06-16] MEDS: TRAZODONE HCL 50 MG TAB PO SCH (22:39)
[2019-06-16] MEDS: allopurinoL 100 MG TAB PO SCH (22:39)
[2019-06-16] MEDS: HEPARIN SOD 5,000 UNIT/0.5 ML VIAL SQ SCH (22:47)
[2019-06-16] MEDS: GABAPENTIN 300 MG CAP PO SCH (22:47)
--- NOTE | 2019-06-17 03:14 | Emergency Department Note ---
Entered by Dena Cordero acting as a scribe for History of Present Illness General Chief complaint: Edema To Extremity Stated complaint: SWOLLEN LEG CELLULITIS Time Seen by Provider: 06/16/19 18:37 History of Present Illness Provider complaint: right ankle infection Onset (ago): day(s) 5 Location: ankle and right Pain Consistency: + other (worsening) Maximum Pain Intensity: 6 Associated symptoms: + denies other symptoms (diarrhea) and + other (right ankle swelling, wrapped ankle today); no fever/chills and no nausea/vomiting Treatments prior to arrival: other (been on suppressive Keflex for 1 year, on clindamycin for 2 days ) The patient is a 58 year old female who presents to the ED with complaints of worsening right ankle infection that started 5 days ago. The patient states that she has a right ankle blister with pain and swelling that radiates up her right leg. The patient states that she went to the ED in [place] 2 days ago and was given IV clindamycin. The patient states that she was discharged with a multiple day course of the same antibiotic. The patient notes that Dr. Ferguson prescri bed her suppressive Kefliex 1 year ago and she has been taking it ever since. The patient states that she spoke with Dr. Ferguson today and she recommended her to come back to the ED for IV antibiotics. The patient notes that she wrapped her ankle today to prevent from further infection. The patient denies having a fever, nausea, vomiting and diarrhea. Home Medications Home Medications Medication Instructions Recorded Confirmed Type albuterol sulfate 90 mcg/actuation 2 puff INHALATION Q4H PRN #18 gm 10/17/18 06/16/19 Rx aerosol inhaler fluticasone 250 mcg-salmeterol 50 1 inh INHALATION Q12H PRN #60 ea 10/17/18 0 06/16/19 Rx mcg/dose blistr powdr for inhalation amiloride 5 mg tablet 5 mg PO QAM #30 tab 11/03/18 06/16/19 Rx bisoprolol fumarate 5 mg tablet 5 mg PO QAM #30 tab 11/03/18 06/16/19 Rx bupropion HCl 300 mg 24 hr tablet, 300 mg PO QAM #30 tab 11/03/18 06/16/19 Rx extended release famotidine 20 mg tablet 20 mg PO QAM #30 tab 11/03/18 06/16/19 Rx acetaminophen 500 mg tablet 500 mg PO Q4H PRN #30 tab 11/09/18 06/16/19 Rx aspirin 81 mg tablet,delayed 81 mg PO QAM #30 tab 11/09/18 06/16/19 Rx release buspirone 15 mg tablet 15 mg PO TID #30 tab 11/09/18 06/16/19 Rx calcium carbonate 300 mg (750 mg) 900 mg PO DAILY PRN #30 tab 11/09/18 06/16/19 Rx chewable tablet cholecalciferol (vitamin D3) 50 2,000 unit PO TID #30 cap 11/09/18 06/16/19 Rx mcg (2,000 unit) capsule cyanocobalamin (vitamin B-12) 1,000 mcg PO DAILY #30 tab 11/09/18 06/16/19 Rx 1,000 mcg tablet fluticasone propionate 50 2 sprays INTRANASAL DAILY #9.9 gm 11/09/18 06/16/19 Rx mcg/actuation nasal spray,suspension gabapentin 300 mg capsule 300 mg PO TID #90 cap 11/09/18 06/16/19 Rx methocarbamol 500 mg tablet See Rx Instructions PO TID PRN #90 11/09/18 06/16/19 Rx tab montelukast 10 mg tablet 10 mg PO PM #30 tab 11/09/18 06/16/19 Rx multivitamin 1 tab PO QAM #30 tab 11/09/18 06/16/19 Rx quetiapine 400 mg tablet 400 mg PO HS #30 tab 11/09/18 06/16/19 Rx aripiprazole 2 mg tablet 2 mg PO DAILY 01/31/19 06/16/19 History compress.stocking,knee,reg,med #2 ea 01/31/19 01/31/19 Rx duloxetine 30 mg capsule,delayed 30 mg PO QAM #90 cap 01/31/19 06/16/19 Rx release metoclopramide HCl 5 mg tablet 5 mg PO QID PRN tab 01/31/19 06/16/19 History sertraline 100 mg tablet 200 mg PO DAILY tab 01/31/19 06/16/19 History trazodone 150 mg tablet 150 mg PO HS tab 01/31/19 06/16/19 History cephalexin 500 mg capsule 500 mg PO Q12H #60 cap 02/27/19 06/16/19 Rx bumetanide 2 mg tablet 2 mg PO .COMPLEX #45 tab 04/12/19 06/16/19 Rx pantoprazole 40 mg tablet,delayed 40 mg PO QAM #30 tab 04/17/19 06/16/19 Rx release nortriptyline 50 mg capsule 150 mg PO HS #90 cap 04/24/19 06/16/19 Rx atorvastatin 40 mg tablet 40 mg PO DAILY #90 tab 04/27/19 06/16/19 Rx clopidogrel 75 mg tablet 75 mg PO DAILY #90 tab 04/27/19 06/16/19 Rx oxycodone 5 mg tablet 5 mg PO Q6H PRN #90 tab 06/05/19 06/16/19 Rx allopurinol 100 mg tablet 100 mg PO BID #180 tab 06/07/19 06/16/19 Rx clindamycin HCl 300 mg PO QID 06/16/19 06/16/19 History Allergies Allergy/AdvReac Type Severity Reaction Status Date / Time Corticosteroids Allergy Intermediate RASH Verified 06/16/19 19:43 (Glucocorticoids) morphine Allergy Intermediate MOUTH Verified 06/16/19 19:43 SWELLS/FACE SWELLS orange Allergy Intermediate HIVES Verified 06/16/19 19:43 Penicillins Allergy Intermediate RASH/HIVES Verified 06/16/19 19:43 prednisone Allergy Intermediate RED RASH Verified 06/16/19 19:43 pregabalin Allergy Intermediate GOOFY Verified 06/16/19 19:43 zolpidem Allergy Intermediate UNSURE Verified 06/16/19 19:43 orange (food color) Allergy Mild rash Verified 06/16/19 19:43 Past Med/Surg History Medical History Acid reflux Allergic rhinitis Arthritis Asthma Chronic back pain Chronic cutaneous venous stasis ulcer (Resolved) CKD (chronic kidney disease) stage 3, GFR 30-59 ml/min 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; 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- DISCOVERED WITH INCIDENTAL IMAGING Degenerative joint disease, shoulder, right (Resolved) Depression with anxiety Gout History of CVA (cerebrovascular accident) Hyperlipidemia Hypertension Left leg weakness (Resolved) Lumbar spinal stenosis Lymphedema Morbid obesity Other ovarian cyst, left side Peripheral neuropathy TIA (transient ischemic attack) 2017- ON [place] Vitamin D deficiency Surgical History H/O total knee replacement B/L H/O ventral hernia repair History of appendectomy History of carpal tunnel release B/L History of cholecystectomy S/P tonsillectomy and adenoidectomy Status post total shoulder arthroplasty (10/17/18) R Family History Father Coronary heart disease [place] x 2 Diabetes Lung disease Hypertension Gallbladder disease Myocardial infarction Mother Diabetes Gallbladder disease Hypertension Coronary heart disease Myocardial infarction S/P CABG x 3 Sister Hodgkins lymphoma Brother Kidney disease Grandmother Breast cancer Aunt Ovarian cancer Other Cancer Social History Preferred Language: Azerbaijani 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 Ability: Effective Device Repair Technician Required: No Beliefs That Will Affect Care: None marital status details: ; lives with parents & 1 daughter Current Living Situation: Family Current Living Situation Comment: Lives in [place] current occupational status: disabled Other Information That Helps Us Care for You: No other: worked in [employer] in [place]; worked for [employer] district Feels Safe at Home: Yes Safety Concerns: Feels Safe At This Time Smoking Status: Never smoker Second Hand Exposure: No ; Hx Alcohol Use: No Hx Substance Use: No Physical Activity Frequency: Does not Exercise Seatbelt Use: sometimes Review of Systems See HPI for pertinent positives & negatives. and A total of 10 systems reviewed and were otherwise negative Physical Exam Vital Signs Vital Signs - 24 hr 06/16/19 16:23 Temperature 36.8 C Temperature Source Oral Pulse Rate 82 Respiratory Rate 18 Blood Pressure 129/86 Blood Pressure Mean 100 Pulse Oximetry 98 Oxygen Delivery Method Room Air Sepsis Recent Fever Within 48 Hours No Sepsis New/Unexplained Change in Mental Status No Sepsis Action Taken by Nursing No Action Required GENERAL: Awake, alert, well-appearing, in no distress, BMI is 55.3 HENT: Normocephalic, atraumatic. Oropharynx unremarkable. EYES: Normal conjunctiva. Sclera non-icteric. NECK: Supple. No nuchal rigidity. FROM. No JVD. RESPIRATORY: Clear to auscultation bilaterally. CARDIAC: Regular rate, normal rhythm. Extremities warm and well perfused. Pulses equal. ABDOMEN: Soft, non-distended. No tenderness to palpation. No rebound or guarding. No masses. RECTAL: Deferred. MUSCULOSKELETAL: Chest examination reveals no tenderness. The back is symmetrical on inspection without obvious abnormality. There is no CVA tenderness to palpation. No joint edema. LOWER EXTREMITIES: 2+ bilateral lower extremity edema. RLE distal with erythema, warmth and tenderness. 3cm right lateral hindfoot bullae with smaller 0.5-1cm bullae of anterior lower leg that are Nikolsky negative. NEURO: Normal sensorium. No sensory or motor deficits noted. SKIN: No rash or jaundice noted. Course Course 1908: Past medical records reviewed. The patient was evaluated in room B10. A complete history and physical exam was performed. 223: I discussed the patient's case with Dr. [facility], Hospitalist. He will evaluate the patient for further management. Consultations Consultation #1: I discussed the patient's case with Dr. Marj LOVE, Hospitalist. He will evaluate the patient for further management. Time: :31 Administered Medications Allopurinol (Zyloprim) 100 mg PO BID LEOBARDO Stop: 07/16/19 21:26 Last Admin: 06/16/19 22:39 Dose: 100 mg Documented by: [id number] Buspirone HCl (Buspar) 15 mg PO TID LEOBARDO Stop: 07/16/19 21:26 Last Admin: 06/16/19 22:38 Dose: 15 mg Documented by: [id number] Gabapentin (Neurontin) 300 mg PO TID LEOBARDO Stop: 07/16/19 21:26 Last Admin: 06/16/19 22:47 Dose: 300 mg Documented by: [id number] Heparin Sodium (Porcine) (Heparin Sodium (Porcine)) 5,000 units SQ Q8 LEOBARDO Stop: 07/16/19 21:59 Last Admin: 06/16/19 22:47 Dose: Not Given Documented by: [id number] Montelukast Sodium (Singulair) 10 mg PO PM LEOBARDO Stop: 07/16/19 21:26 Last Admin: 06/16/19 22:39 Dose: 10 mg Documented by: [id number] Nortriptyline HCl (Pamelor) 150 mg PO HS LEOBARDO Stop: 07/16/19 21:26 Last Admin: 06/16/19 22:37 Dose: 150 mg Documented by: [id number] Quetiapine Fumarate (Seroquel) 400 mg PO HS LEOBARDO Stop: 07/16/19 21:26 Last Admin: 06/16/19 22:38 Dose: 400 mg Documented by: [id number] Trazodone HCl (Desyrel) 150 mg PO HS LEOBARDO Stop: 07/16/19 21:26 Last Admin: 06/16/19 22:39 Dose: 150 mg Documented by: [id number] Vitamin D (Vitamin D3) 2,000 units PO TID LEOBARDO Stop: 07/16/19 21:26 Last Admin: 06/16/19 22:38 Dose: 2,000 units Documented by: [id number] Discontinued Medications Hydromorphone HCl (Dilaudid) Confirm Administered Dose 0.5 mg .ROUTE .STK-MED ONE Stop: 06/16/19 20:55 Last Admin: 06/16/19 20:55 Dose: 0.5 mg Documented by: [id number] Cefepime HCl (Maxipime) 2,000 mg in 20 mls @ 5 mls/min IV NOW STA; Protocol Stop: 06/16/19 19:26 Last Admin: 06/16/19 20:46 Dose: 5 mls/min Documented by: [id number] Vancomycin HCl 2,750 mg/ (Sodium Chloride) 555 mls @ 200 mls/hr IV NOW ONE Stop: 06/16/19 22:09 Last Infusion: 06/16/19 23:13 Dose: 0 mls/hr Documented by: [id number] Admin: 06/16/19 20:26 Dose: 200 mls/hr Documented by: [id number] Miscellaneous Information (Consult) 1 ea N/A UD PRN PRN Reason: Consult Stop: 07/16/19 19:22 Last Admin: 06/16/19 20:46 Dose: 1 ea Documented by: [id number] Medical Decision Making Differential Diagnosis Differential diagnosis: Etiologies such as cellulitis, abscess, osteomyelitis, MRSA infection, DVT, necrotizing fasciitis, dermatitis, drug eruption, as well as others were entertained. Medical Records Attestation: I reviewed the patient's medical records. Home Medications Current Medication List: was personally reviewed by me Laboratory Data Attestation: I reviewed the patient's lab results. Result diagrams: 06/16/19 19:42 06/16/19 19:42 Lab Results 06/16/19 06/16/19 06/16/19 Range/Units 19:42 19:42 19:42 WBC 9.39 (4.8-10.8) K/uL RBC 4.71 (4.2-5.4) M/uL Hgb 12.2 (12.0-16.0) g/dL Hct 37.9 (37-47) % MCV 80.5 (80-100) fL MCH 25.9 (25-34) pg MCHC 32.2 (32-36) g/dL RDW Std Deviation 46.6 H (36.4-46.3) fL RDW Coeff of Cleo 15.8 H (11.5-14.5) % Plt Count 262 (130-400) K/uL MPV 10.0 (7.4-10.4) fL Immature Gran % (Auto) 0.2 % Neut % (Auto) 64.3 % Lymph % (Auto) 25.1 % [place] % (Auto) 7.0 % Eos % (Auto) 3.2 % Baso % (Auto) 0.2 % Immature Gran # (Auto) 0.02 (0.00-0.02) K/uL Neut # (Auto) 6.03 (1.4-6.5) K/uL Lymph # (Auto) 2.36 (1.2-3.4) K/uL [place] # (Auto) 0.66 H (0.11-0.59) K/uL Eos # (Auto) 0.30 (0-0.5) K/uL Baso # (Auto) 0.02 (0-0.2) K/uL PT 10.5 (9.0-12.0) Seconds INR 1.0 (0.9-1.1) APTT 26.7 (21.0-31.0) Seconds PTT Ratio 1.0 Sodium 139 (136-145) mmol/L Potassium 3.3 L (3.5-5.1) mmol/L Chloride 99 (98-107) mmol/L Carbon Dioxide 36 H (21-32) mmol/L Anion Gap 4.0 (3-11) BUN 12 (7-18) mg/dl Creatinine 1.31 H (0.6-1.2) mg/dl Est Cr Clr Drug Dosing 86.7 ml/min Est GFR ( Amer) 52.6 Est GFR (Non-Af Amer) 45.4 BUN/Creatinine Ratio 9.2 L (10-20) Glucose 98 (70-99) mg/dl Lactate (0.4-2.0) mmol/L Calcium 8.9 (8.5-10.1) mg/dl Magnesium 2.1 (1.8-2.4) mg/dl Total Bilirubin 0.4 (0.2-1) mg/dl AST 17 (15-37) U/L ALT 23 (12-78) U/L Alkaline Phosphatase 103 (45-117) U/L Total Protein 7.5 (6.4-8.2) gm/dl Albumin 3.2 L (3.4-5.0) gm/dl Globulin 4.3 H (2.5-4.0) gm/dl Albumin/Globulin Ratio 0.8 L (0.9-2) Hepatitis C Ab Screen (Neg) 06/16/19 06/16/19 Range/Units 19:42 19:42 WBC (4.8-10.8) K/uL RBC (4.2-5.4) M/uL Hgb (12.0-16.0) g/dL Hct (37-47) % MCV (80-100) fL MCH (25-34) pg MCHC (32-36) g/dL RDW Std Deviation (36.4-46.3) fL RDW Coeff of Cleo (11.5-14.5) % Plt Count (130-400) K/uL MPV (7.4-10.4) fL Immature Gran % (Auto) % Neut % (Auto) % Lymph % (Auto) % [place] % (Auto) % Eos % (Auto) % Baso % (Auto) % Immature Gran # (Auto) (0.00-0.02) K/uL Neut # (Auto) (1.4-6.5) K/uL Lymph # (Auto) (1.2-3.4) K/uL [place] # (Auto) (0.11-0.59) K/uL Eos # (Auto) (0-0.5) K/uL Baso # (Auto) (0-0.2) K/uL PT (9.0-12.0) Seconds INR (0.9-1.1) APTT (21.0-31.0) Seconds PTT Ratio Sodium (136-145) mmol/L Potassium (3.5-5.1) mmol/L Chloride (98-107) mmol/L Carbon Dioxide (21-32) mmol/L Anion Gap (3-11) BUN (7-18) mg/dl Creatinine (0.6-1.2) mg/dl Est Cr Clr Drug Dosing ml/min Est GFR ( Amer) Est GFR (Non-Af Amer) BUN/Creatinine Ratio (10-20) Glucose (70-99) mg/dl Lactate 1.1 (0.4-2.0) mmol/L Calcium (8.5-10.1) mg/dl Magnesium (1.8-2.4) mg/dl Total Bilirubin (0.2-1) mg/dl AST (15-37) U/L ALT (12-78) U/L Alkaline Phosphatase (45-117) U/L Total Protein (6.4-8.2) gm/dl Albumin (3.4-5.0) gm/dl Globulin (2.5-4.0) gm/dl Albumin/Globulin Ratio (0.9-2) Hepatitis C Ab Screen Neg (Neg) Imaging Data Radiologist's Impression: Radiology results as stated below per my review and the radiologist's interpretation: XR chest 1V portable HISTORY: 58 years-old Female SEPSIS acute sepsis COMPARISON: Chest radiograph 07/29/2018 TECHNIQUE: Portable AP view of the chest FINDINGS: Cardiac silhouette is enlarged, unchanged linear subsegmental atelectasis/sc arring of the retrocardiac left lung base. No pneumothorax, pleural effusion, focal airspace consolidation or overt pulmonary edema. Right shoulder arthroplasty. Degenerative changes of the left shoulder and spine. IMPRESSION: Cardiomegaly without acute process. ACT 112: Negative or not required by law. The above report was generated using voice recognition software. It may contain grammatical, syntax or spelling errors. Electronically signed by: Ortega Todd M.D. 06/16/2019 8:01 PM XR tibia fibula RT 2V, XR foot RT 2V HISTORY: 58 years-old Female cellulitis eval for osseous involvement acute pain and swelling of the right lower leg and foot COMPARISON: None available TECHNIQUE: 2 views of the right tibia and fibula and 2 views of the right foot FINDINGS: TIBIA/FIBULA: Diffuse soft tissue prominence of the lower leg. There are a few tiny soft tissue calcifications noted. No opaque foreign body identified. No acute fracture, dislocation or bony erosion. Right knee total joint arthroplasty with suggested knee joint effusion. No evidence of hardware complication. FOOT: Prominent spurring of the calcaneus with mild to moderate multifocal osteoarthritis. No acute fracture, dislocation or bony erosion identified. Diffuse soft tissue prominence. Type II accessory navicular. IMPRESSION: 1. Diffuse soft tissue prominence without acute fracture or dislocation. 2. Degenerative changes as above. ACT 112: Negative or not required by law. The above report was generated using voice recognition software. It may contain grammatical, syntax or spelling errors. Electronically signed by: Ortega Todd M.D. 06/16/2019 8:03 PM ECG Data Attestation: I personally reviewed and interpreted this ECG as follows: Indication: + weakness Rate (beats per minute): 74 Rhythm: + normal sinus ECG [place]: + Left axis deviation ECG ST segments: no ST depression and no ST elevation ECG Findings: + Other (QTC 404); no PACs and no PVCs Blood Pressure Blood Pressure Findings: Normal blood pressure Blood Pressure Disposition: did not require urgent referral MDM Narrative The patient is a pleasant 58-year-old woman with a past medical history of recurrent cellulitis on suppressive Keflex chronically, history of lymphedema, HTN, CKD who presents emergency department with worsening right lower leg redness and swelling over the past week seen at [place] emergency department several days ago treated with IV clindamycin and discharged with oral clindamycin per HPI. Of note, blood cultures were drawn per the family and were negative. On arrival the patient is in no acute distress, afebrile stable vital signs. On exam the patient has 2+ edema of bLE, right lower leg and foot with erythema, warmth, and tenderness with intact bullae that is Nikolsky negative. There is no crepitus. Given the patient's risk factors and failed outpatient treatment decision was made for admission for IV antibiotics. The patient was agreeable with this. Blood work was drawn and pending. The patient was ordered for cefepime and vancomycin. Case was discussed with Dr. Cortez, [facility] hospitalist, who evaluate the patient for admission. Chest x-ray negative for acute process. Plain films of the right lower extremity negative for osseous involvement. WBC, H/H and platelets within normal limits. Chemistry without acidosis. Creatinine 1.3 within prior range of values. Lactate within normal limits. Electrolytes and LFTs unremarkable. Impression & Plan Cellulitis, Lymphedema, Recurrent cellulitis of lower extremity, CKD (chronic kidney disease) Discharge Plan Visit Data *Final* Discharge Date/Time: 06/16/19 21:03 Chief Complaint: Edema To Extremity Stated Complaint: SWOLLEN LEG CELLULITIS ED Provider: Giles Burleson Discharge Problem: Cellulitis, Lymphedema, Recurrent cellulitis of lower extremity, CKD (chronic kidney disease) Patient Disposition: Admitted As Inpatient Discharge Instructions Interventions: ED Discharge Assessment Last Done: 06/16/19 21:03 Discharge Problem: Cellulitis Qualifiers: Site of cellulitis: extremity Site of cellulitis of extremity: lower extremity Laterality: right Qualified Code(s): L03.115 - Cellulitis of right lower limb The scribe's documentation has been prepared under my direction and personally reviewed by me in its entirety. I confirm that the note above accurately reflects all work, treatment, procedures, and medical decision making performed by me.
[2019-06-17] MEDS ORDERED: VANCOMYCIN HCL 1,750 MG in SODIUM CHLORIDE 0.9% 500 ML IV SCH (04:00)
[2019-06-17] MEDS: HEPARIN SOD 5,000 UNIT/0.5 ML VIAL SQ SCH ×3 (05:39→20:55)
[2019-06-17] MEDS: OXYCODONE/ACETAMINOPHEN 5mg/325mg TAB PO PRN ×3 (05:44→23:45)
[2019-06-17] MEDS ORDERED: CEFEPIME 2,000 MG in SYRINGE 0 ML IV SCH (08:00)
[2019-06-17 08:06] LABS: Hematocrit (blood only) 36.1 % (37-47); Hemoglobin 11.4 g/dL (12.0-16.0); Mean Corpuscular Hemoglobin 25.4 pg (25-34); Mean Corpuscular Hgb Conc 31.6 g/dL (32-36); Mean Corpuscular Volume 80.4 fL (80-100); Mean Platelet Volume 10.1 fL (7.4-10.4); Platelet Count 215 K/uL (130-400); RDW Coefficient of Variation 15.9 % (11.5-14.5); RDW Standard Deviation 46.7 fL (36.4-46.3); Red Blood Count 4.49 M/uL (4.2-5.4); White Blood Count 6.03 K/uL (4.8-10.8)
[2019-06-17 08:40] LABS: Calcium 8.7 mg/dl (8.5-10.1); Est GFR (African American) 60.3; Potassium 3.2 mmol/L (3.5-5.1)
--- NOTE | 2019-06-17 09:12 | Pharmacy Report ---
Pharmacy Abx Initial Consult - Date of Service June 17, 2019 - Pharmacy Dosing Scope Date of Consult: 06/16/2019 Consultation requested by: Dr. Cortez Pharmacy is consulted to initiate Vancomycin IV dosing therapy, order appropriate labs and adjust drug dose/frequency. - Subjective The patient is a 58 year old F admitted on 06/16/19 20:22. - Objective Height: 5 ft 11 in Weight: 177.1 kg Vital Signs (Past 12hrs): Vital Signs Temp Pulse Pulse Resp BP BP Pulse Ox 06/17/19 08:22 36.5 C 73 20 111/72 94 06/17/19 07:00 72 06/17/19 04:00 36.5 C 70 18 114/56 L 95 06/17/19 00:04 79 06/16/19 23:00 36.5 C 72 19 111/63 95 06/16/19 22:23 74 06/16/19 22:00 36.5 C 74 18 104/72 93 Lab Results (24hrs): Laboratory Tests (24 Hours) 06/17/19 06/17/19 06/16/19 07:25 07:25 19:42 WBC 6.03 Neut # (Auto) Creatinine 1.17 1.31 H Est Cr Clr Drug Dosing 96.0 86.7 06/16/19 19:42 WBC 9.39 Neut # (Auto) 6.03 Creatinine Est Cr Clr Drug Dosing Micro Results: 06/16/19 20:12 Aerobic Blood Culture - Pending Blood Anaerobic Blood Culture - Pending 06/16/19 19:42 Aerobic Blood Culture - Pending Blood Anaerobic Blood Culture - Pending - Risk Factors for Resistance * Antimicrobial use within the last 90 days: * Cephalexin and Clindamycin - Assessment & Plan Assessment 58 year old F admitted on 06/16/2019 for RLE cellulitis that failed outpatient tx * PMHx significant for lymphedema with chronic venous stasis ulcer, CKD-III * Upon presentation, patient was afebrile, WBCs 9400, SCr 1.31, Lactic acid 1.1 * Today, WBCs 6000, SCr 1.17 (Baseline ~1.1) * Blood cultures pending Plan IV Vancomycin and Cefepime for treatment of cellulitis Vancomycin IV * Estimated PK Parameters: Vd 0.55 L/kg, Raj 0.084 hr-1, t1/2 12 hrs * Loading dose: 2750 mg (15 mg/kg) * Maintenance dose: 1750 mg IV (9 mg/kg) every 12 hours * Goal trough level: ~15 mcg/mL * Trough level ordered for 06/18/2019 @ 0330 * A less than traditional dose and/or extended dosing interval has/have been selected due to likelihood of drug accumulation in obese patient/patient with h/o CKD. Cefepime * 2 g IV every 12 hours * Dose appropriate for indication and renal function Pharmacy will continue to follow and will adjust dose/frequency as necessary. Thank you.
[2019-06-17] MEDS: BuPROPion XL 300 MG TABCR PO SCH (09:36)
[2019-06-17] MEDS: CLOPIDOGREL BISULFATE 75 MG TAB PO SCH (09:37)
[2019-06-17] MEDS: FAMOTIDINE 20 MG TAB PO SCH (09:37)
[2019-06-17] MEDS: CYANOCOBALAMIN 500 MCG TABLET (VITAMIN B-12) PO SCH (09:37)
[2019-06-17] MEDS: MULTIVITAMIN TAB PO SCH (09:37)
[2019-06-17] MEDS: ATORVASTATIN 40 MG TAB PO SCH (09:37)
[2019-06-17] MEDS: DULOXETINE HCL 30 MG CAP PO SCH (09:37)
[2019-06-17] MEDS: SERTRALINE HCL 100 MG TABLET PO SCH (09:37)
[2019-06-17] MEDS: PANTOprazole 40 MG TAB PO SCH (09:38)
[2019-06-17] MEDS: FLUTICASONE PROPIONATE NA SPR 16 GM BTL SCH (09:38)
[2019-06-17] MEDS: ARIPIprazole 1 MG/ML ORAL SOLN 150 ML BTL PO SCH (09:38)
[2019-06-17] MEDS: ASPIRIN 81 MG ECTAB PO SCH (09:38)
[2019-06-17] MEDS: BusPIRone 15 MG TAB PO SCH ×3 (09:39→20:54)
[2019-06-17] MEDS: GABAPENTIN 300 MG CAP PO SCH ×3 (09:39→20:53)
[2019-06-17] MEDS: CHOLECALCIFEROL 1,000 UNITS 25 MCG TAB PO SCH ×3 (09:39→20:55)
[2019-06-17] MEDS: allopurinoL 100 MG TAB PO SCH ×2 (09:40→20:50)
[2019-06-17] MEDS: BUMETANIDE 1 MG TAB PO SCH (10:08)
[2019-06-17] MEDS ORDERED: POTASSIUM CHLORIDE 20 MEQ TABCR PO STA (10:09)
[2019-06-17 10:20] LABS: Appearance Urine Clear (Clear); Bacteria Urine Automated Negative (Negative); Bilirubin Urine Negative (Negative); Blood Urine Negative (Negative); Color Urine Yellow; Epithelial Cell Urine Auto >30 /lpf (0-5); Glucose Urine UA Negative (Negative); Ketones Urine Negative (Negative); Leukocyte Esterase Urine 1+ (Negative); Nitrite Urine Negative (Negative); Protein Urine Negative (Negative); RBC Urine Automated 0-4 /hpf (0-4); Specific Gravity Urine 1.016 (1.000-1.030); Urobilinogen Urine Negative (Negative); pH Urine 6.5 (4.5-7.5)
--- NOTE | 2019-06-17 14:41 | Hospitalist Progress Note ---
Date of Service June 17, 2019 Assessment & Plan (1) Cellulitis of right lower leg: failed outpatient treatment with prophylactic Keflex and Clindamycin Complicated by underlying lymphedema since nasal MRSA is neg, will stop Vanco since it is all superficial, will change Cefepime to Cefazolin. even though she was on Keflex prophylactically, the tissue penetration of Cefazolin is far superior to oral Keflex analgesics wound care to blisters (2) CKD (chronic kidney disease) stage 3, GFR 30-59 ml/min: Will monitor renal function. eGFR=52 (3) Hypertension: Continue Bystolic, bumetanide, and amiloride. (4) Hyperlipidemia: Continue atorvastatin (5) Depression with anxiety: Continue aripiprazole in am, and Seroquel at night Continue bupropion, buspirone, Cymbalta, sertraline, trazodone, and nortriptyline. (6) Gout: Continue allopurinol (7) Acid reflux: Continue Protonix and Pepcid. (8) History of CVA (cerebrovascular accident): Continue Plavix and aspirin (9) Asthma: Continue Advair diskus, prn albuterol nebs, and montelukast. (10) Lumbar spinal stenosis: Continue gabapentin, methocarbamol prn, and oxycodone prn. (11) Morbid obesity with BMI of 50.0-59.9, adult: BMI=54.5 would benefit from halfway weight loss measures would even consider gastric sleeve surgery (12) Hypokalemia: due to diuretics replete and monitor Present on Admission?: Yes (13) DVT prophylaxis: sq [facility] mobilize as tolerated MISCELLANEOUS * dispo planned to home Present on Admission?: Yes Subjective 58WF p/w RLE and ankle redness and pain. she reports that the redness and pain are about 25% improved compared to on admission she is chronically on prophylactic Keflex due to recurrent cellulitis and she was recently started on Clindamycin for this cellulitis but the redness and pain are worsening. No F/C or drainage. no trauma. K=3.2 her nasal MRSA is negative. Review of Systems Review of Systems: Positive ROS: as in Subjective Constitutional: no fevers HENT: Negative for sore throat. Respiratory: Negative for cough and SOB. Cardiovascular: Negative for chest pain and palpitations. Gastrointestinal: Negative for abdominal pain, diarrhea, nausea and vomiting. Genitourinary: Negative for dysuria. Neurological: Negative for focal weakness and headaches. Physical Exam Physical Exam: Abnormal Exam: RLE from ankle to half way up coles, there is mild-moderate redness. there are several intact blisters around front and lateral ankle, the largest being over R lateral calcaneus. Constitutional: No distress. morbidly obese HENT: Mouth/Throat: Oropharynx is clear and moist. Eyes: Conjunctivae are normal. No scleral icterus. Cardiovascular: Normal RRR and normal heart sounds. No murmur heard. no gallop and no friction rub. Pulmonary/Chest: Effort normal and breath sounds normal. No respiratory distress. no wheezing no rales. Abdominal: Soft. Bowel sounds are normal. no distension. There is no tenderness. Neurological: alert. Psychiatric: Mood, affect and judgment normal. Results & Data ([facility]) Vital Signs (Past 12 Hours) Vital Signs Temp Pulse Pulse Resp BP Pulse Ox 06/17/19 14:31 36.6 C 67 18 116/79 92 06/17/19 11:56 36.5 C 64 20 113/75 93 06/17/19 08:22 36.5 C 73 20 111/72 94 06/17/19 07:00 72 06/17/19 04:00 36.5 C 70 18 114/56 L 95 Laboratory Results WBC=6 hgb=11.4 (MCV=80.4) yed=549 coags normal creat=1.17 BUN=12 K=3.2 Coding Level of Care Code 91931 Subseq Hosp Care Lvl 2 Diagnoses Cellulitis of right lower leg L03.115 CKD (chronic kidney disease) stage 3, GFR 30-59 ml/min N18.3 Hypertension I10 Hyperlipidemia E78.5 Depression with anxiety F41.8 Gout M1A.9XX0 Chronicity: chronic Gout etiology: unspecified cause Gout site: unspecified site Presence of tophus: without tophus Acid reflux K21.9 History of CVA (cerebrovascular accident) Z86.73 Asthma J45.30 Asthma complication type: uncomplicated Asthma persistence: persistent Asthma severity: mild Lumbar spinal stenosis M48.061 Morbid obesity with BMI of 50.0-59.9, adult E66.01; Z68.43 Hypokalemia E87.6 DVT prophylaxis Z29.9 (1) Gout Chronicity: chronic Gout etiology: unspecified cause Gout site: unspecified site Presence of tophus: without tophus Qualified Code(s): M1A.9XX0 - Chronic gout, unspecified, without tophus (tophi) (2) Asthma Asthma complication type: uncomplicated Asthma persistence: persistent Asthma severity: mild Qualified Code(s): J45.30 - Mild persistent asthma, uncomplicated
--- NOTE | 2019-06-17 17:11 | Electrocardiogram Report ---
Test Reason : Blood Pressure : / mmHG Vent. Rate : 074 BPM Atrial Rate : 074 BPM P-R Int : 200 ms QRS Dur : 090 ms QT Int : 416 ms P-R-T Axes : 041 -30 089 degrees QTc Int : 462 ms Normal sinus rhythm Left axis deviation Inferior infarct Anterior infarct Abnormal ECG When compared with ECG of 30-JUL-2018 06:57, QT has shortened Confirmed by Jai Watkins ([id number]) on 06/17/2019 5:11:17 PM Referred By: Candelaria Luo Confirmed By:Jai Watkins
[2019-06-17] MEDS: CEFAZOLIN 2000MG 2,000 MG/15 ML SYR IV SCH ×2 (17:24→23:45)
[2019-06-17] MEDS: NORTRIPTYLINE HCL 25 MG CAP PO SCH (20:51)
[2019-06-17] MEDS: TRAZODONE HCL 50 MG TAB PO SCH (20:52)
[2019-06-17] MEDS: QUETIAPINE FUMARATE 200 MG TAB PO SCH (20:53)
[2019-06-17] MEDS: POTASSIUM CHLORIDE 20 MEQ TABCR PO SCH (20:54)
[2019-06-17] MEDS: MONTELUKAST SODIUM 10 MG TABLET PO SCH (20:54)
[2019-06-18] MEDS ORDERED: VANCOMYCIN TROUGH ONE (03:30)
[2019-06-18] MEDS: OXYCODONE/ACETAMINOPHEN 5mg/325mg TAB PO PRN ×2 (03:57→16:29)
[2019-06-18] MEDS: HEPARIN SOD 5,000 UNIT/0.5 ML VIAL SQ SCH ×3 (05:32→20:28)
[2019-06-18 07:43] LABS: Hematocrit (blood only) 36.5 % (37-47); Hemoglobin 11.6 g/dL (12.0-16.0); Mean Corpuscular Hemoglobin 25.3 pg (25-34); Mean Corpuscular Hgb Conc 31.8 g/dL (32-36); Mean Corpuscular Volume 79.5 fL (80-100); Platelet Count 243 K/uL (130-400); RDW Coefficient of Variation 15.9 % (11.5-14.5); RDW Standard Deviation 46.7 fL (36.4-46.3); Red Blood Count 4.59 M/uL (4.2-5.4); White Blood Count 7.14 K/uL (4.8-10.8)
[2019-06-18 08:09] LABS: BUN Creatinine Ratio 9.3 (10-20); Calcium 8.7 mg/dl (8.5-10.1); Creatinine Clr Calc Pharmacy 90.2 ml/min; Est GFR (African American) 55.7; Potassium 3.9 mmol/L (3.5-5.1)
[2019-06-18] MEDS: CEFAZOLIN 2000MG 2,000 MG/15 ML SYR IV SCH ×3 (08:47→23:46)
[2019-06-18] MEDS: MULTIVITAMIN TAB PO SCH (08:48)
[2019-06-18] MEDS: CHOLECALCIFEROL 1,000 UNITS 25 MCG TAB PO SCH ×3 (08:49→20:24)
[2019-06-18] MEDS: PANTOprazole 40 MG TAB PO SCH (08:49)
[2019-06-18] MEDS: DULOXETINE HCL 30 MG CAP PO SCH (08:49)
[2019-06-18] MEDS: ATORVASTATIN 40 MG TAB PO SCH (08:49)
[2019-06-18] MEDS: BusPIRone 15 MG TAB PO SCH ×3 (08:49→20:25)
[2019-06-18] MEDS: allopurinoL 100 MG TAB PO SCH ×2 (08:49→20:27)
[2019-06-18] MEDS: CLOPIDOGREL BISULFATE 75 MG TAB PO SCH (08:49)
[2019-06-18] MEDS: POTASSIUM CHLORIDE 20 MEQ TABCR PO SCH ×2 (08:49→20:27)
[2019-06-18] MEDS: FAMOTIDINE 20 MG TAB PO SCH (08:50)
[2019-06-18] MEDS: GABAPENTIN 300 MG CAP PO SCH ×3 (08:50→20:25)
[2019-06-18] MEDS: BUMETANIDE 1 MG TAB PO SCH (08:50)
[2019-06-18] MEDS: ASPIRIN 81 MG ECTAB PO SCH (08:50)
[2019-06-18] MEDS: FLUTICASONE PROPIONATE NA SPR 16 GM BTL SCH (08:51)
[2019-06-18] MEDS: CYANOCOBALAMIN 500 MCG TABLET (VITAMIN B-12) PO SCH (08:51)
[2019-06-18] MEDS: SERTRALINE HCL 100 MG TABLET PO SCH (08:51)
[2019-06-18] MEDS: BuPROPion XL 300 MG TABCR PO SCH (08:51)
[2019-06-18] MEDS: ARIPIprazole 1 MG/ML ORAL SOLN 150 ML BTL PO SCH (08:51)
--- NOTE | 2019-06-18 13:34 | Hospitalist Progress Note ---
Date of Service June 18, 2019 Assessment & Plan (1) Cellulitis of right lower leg: failed outpatient treatment with prophylactic Keflex and Clindamycin Complicated by underlying lymphedema ... since nasal MRSA is neg and clinically not susp for MRSA, stopped Vanco PLAN: * IV Cefazolin. even though she was on Keflex prophylactically, the tissue penetration of Cefazolin is far superior to oral Keflex * analgesics * wound care to blisters (2) CKD (chronic kidney disease) stage 3, GFR 30-59 ml/min: Will monitor renal function. eGFR=52 (3) Hypertension: Continue Bystolic, bumetanide, and amiloride. (4) Hyperlipidemia: Continue atorvastatin (5) Depression with anxiety: Continue aripiprazole in am, and Seroquel at night Continue bupropion, buspirone, Cymbalta, sertraline, trazodone, and nortriptyline. (6) Gout: Continue allopurinol (7) Acid reflux: Continue Protonix and Pepcid. (8) History of CVA (cerebrovascular accident): Continue Plavix and aspirin (9) Asthma: Continue Advair diskus, prn albuterol nebs, and montelukast. (10) Lumbar spinal stenosis: Continue gabapentin, methocarbamol prn, and oxycodone prn. 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 continued slow improvement in cellulitis redness and pain. 35% improved compared to admission. blisters remain intact. no drainage. no fevers. requesting cardiac monitoring to be discontinued. tele stickers making chest wall red, irritated and burning. she is chronically on prophylactic Keflex due to recurrent cellulitis and she was recently started on Clindamycin for this cellulitis but the redness and pain are worsening. nasal MRSA is negative. Review of Systems Review of Systems: Positive ROS: as in Subjective Constitutional: no fevers HENT: Negative for sore throat. Respiratory: Negative for cough and SOB. Cardiovascular: Negative for chest pain and palpitations. Gastrointestinal: Negative for abdominal pain, diarrhea, nausea and vomiting. Genitourinary: Negative for dysuria. Neurological: Negative for focal weakness and headaches. Physical Exam Physical Exam: Abnormal Exam: RLE from ankle to half way up coles, there is mild-moderate redness. there are several intact blisters around front and lateral ankle, the largest being over R lateral calcaneus. chest wall with erythematous patches where prior telemetry stickers were Constitutional: No distress. morbidly obese HENT: Mouth/Throat: Oropharynx is clear and moist. Eyes: Conjunctivae are normal. No scleral icterus. Cardiovascular: Normal RRR and normal heart sounds. No murmur heard. no gallop and no friction rub. Pulmonary/Chest: Effort normal and breath sounds normal. No respiratory distress. no wheezing no rales. Abdominal: Soft. Bowel sounds are normal. no distension. There is no tenderness. Neurological: alert. Psychiatric: Mood, affect and judgment normal. Results & Data ([facility]) Vital Signs (Past 12 Hours) Vital Signs Temp Pulse Pulse Pulse Resp BP Pulse Ox 06/18/19 12:00 36.6 C 62 18 108/67 94 06/18/19 08:10 63 06/18/19 08:04 36.6 C 70 20 127/77 94 06/18/19 04:00 36.5 C 67 18 110/72 92 Coding Level of Care Code 35897 Subseq Hosp Care Lvl 2 Diagnoses Cellulitis of right lower leg L03.115 CKD (chronic kidney disease) stage 3, GFR 30-59 ml/min N18.3 Hypertension I10 Hyperlipidemia E78.5 Depression with anxiety F41.8 Gout M1A.9XX0 Chronicity: chronic Gout etiology: unspecified cause Gout site: unspecified site Presence of tophus: without tophus Acid reflux K21.9 History of CVA (cerebrovascular accident) Z86.73 Asthma J45.30 Asthma complication type: uncomplicated Asthma persistence: persistent Asthma severity: mild Lumbar spinal stenosis M48.061 Morbid obesity with BMI of 50.0-59.9, adult E66.01; Z68.43 Hypokalemia E87.6 DVT prophylaxis Z29.9 (1) Gout Chronicity: chronic Gout etiology: unspecified cause Gout site: unspecified site Presence of tophus: without tophus Qualified Code(s): M1A.9XX0 - Chronic gout, unspecified, without tophus (tophi) (2) Asthma Asthma complication type: uncomplicated Asthma persistence: persistent Asthma severity: mild Qualified Code(s): J45.30 - Mild persistent asthma, uncomplicated
[2019-06-18] MEDS: MONTELUKAST SODIUM 10 MG TABLET PO SCH (20:25)
[2019-06-18] MEDS: TRAZODONE HCL 50 MG TAB PO SCH (20:26)
[2019-06-18] MEDS: QUETIAPINE FUMARATE 200 MG TAB PO SCH (20:26)
[2019-06-18] MEDS: NORTRIPTYLINE HCL 25 MG CAP PO SCH (20:28)
[2019-06-19] MEDS: OXYCODONE/ACETAMINOPHEN 5mg/325mg TAB PO PRN ×3 (04:00→13:56)
[2019-06-19] MEDS: HEPARIN SOD 5,000 UNIT/0.5 ML VIAL SQ SCH ×3 (06:01→21:24)
[2019-06-19] MEDS: ACETAMINOPHEN 325 MG TAB PO PRN (06:06)
[2019-06-19] MEDS: TRIAMCINOLONE ACET 0.025% CR 15 GM TUBE EXT PRN (06:13)
[2019-06-19] MEDS: SERTRALINE HCL 100 MG TABLET PO SCH (08:02)
[2019-06-19] MEDS: FAMOTIDINE 20 MG TAB PO SCH (08:03)
[2019-06-19] MEDS: DULOXETINE HCL 30 MG CAP PO SCH (08:03)
[2019-06-19] MEDS: CEFAZOLIN 2000MG 2,000 MG/15 ML SYR IV SCH ×2 (08:03→16:22)
[2019-06-19] MEDS: ASPIRIN 81 MG ECTAB PO SCH (08:03)
[2019-06-19] MEDS: CLOPIDOGREL BISULFATE 75 MG TAB PO SCH (08:03)
[2019-06-19] MEDS: ATORVASTATIN 40 MG TAB PO SCH (08:03)
[2019-06-19] MEDS: BUMETANIDE 1 MG TAB PO SCH (08:04)
[2019-06-19] MEDS: allopurinoL 100 MG TAB PO SCH ×2 (08:04→20:47)
[2019-06-19] MEDS: ARIPIprazole 1 MG/ML ORAL SOLN 150 ML BTL PO SCH (08:04)
[2019-06-19] MEDS: POTASSIUM CHLORIDE 20 MEQ TABCR PO SCH ×2 (08:04→20:45)
[2019-06-19] MEDS: MULTIVITAMIN TAB PO SCH (08:05)
[2019-06-19] MEDS: PANTOprazole 40 MG TAB PO SCH (08:05)
[2019-06-19] MEDS: BuPROPion XL 300 MG TABCR PO SCH (08:05)
[2019-06-19] MEDS: CYANOCOBALAMIN 500 MCG TABLET (VITAMIN B-12) PO SCH (08:05)
[2019-06-19] MEDS: GABAPENTIN 300 MG CAP PO SCH ×3 (08:06→20:46)
[2019-06-19] MEDS: BusPIRone 15 MG TAB PO SCH ×3 (08:06→20:45)
[2019-06-19] MEDS: CHOLECALCIFEROL 1,000 UNITS 25 MCG TAB PO SCH ×3 (08:07→20:47)
[2019-06-19] MEDS: FLUTICASONE PROPIONATE NA SPR 16 GM BTL SCH (08:09)
[2019-06-19] MEDS: MAGNESIUM HYDROXIDE SUSP 30 ML UDC PO PRN (08:11)
[2019-06-19] MEDS: MICONAZOLE NITRATE POWDER 43 GM EXT PRN (13:43)
--- NOTE | 2019-06-19 17:53 | Hospitalist Progress Note ---
Date of Service June 19, 2019 Assessment & Plan (1) Cellulitis of right lower leg: Failed outpatient treatment with prophylactic Keflex and Clindamycin Complicated by underlying lymphedema since nasal MRSA is neg and clinically not susp for MRSA, stopped Vanco IV Cefazolin. even though she was on Keflex prophylactically, the tissue penetration of Cefazolin is far superior to oral Kefle analgesics wound care to blisters (2) CKD (chronic kidney disease) stage 3, GFR 30-59 ml/min: Will monitor renal function. Avoid nephrotoxic agents eGFR=52 (3) Hypertension: Continue Bystolic, bumetanide, and amiloride. (4) Hyperlipidemia: Continue atorvastatin (5) Depression with anxiety: Continue aripiprazole in am, and Seroquel at night Continue bupropion, buspirone, Cymbalta, sertraline, trazodone, and nortriptyline. (6) Gout: Continue allopurinol (7) Acid reflux: Continue Protonix and Pepcid. (8) History of CVA (cerebrovascular accident): Continue Plavix and aspirin (9) Asthma: Continue Advair diskus, prn albuterol nebs, and montelukast. (10) Lumbar spinal stenosis: Continue gabapentin, methocarbamol prn, and oxycodone prn. (11) Morbid obesity with BMI of 50.0-59.9, adult: BMI=54.5 would benefit from assisted weight loss measures would even consider gastric sleeve surgery (12) Hypokalemia: due to diuretics replete and monitor (13) DVT prophylaxis: sq [facility] mobilize as tolerated dispo planned to home when improved enough discontinue cardiac monitoring triamcinolone cream to chest wall rash Subjective Patient seen and examined at the bedside. She is slowly improving. Tolerating antibiotics okay. Demarcation lines are decreasing of her right lower extremity but it is still swollen and warm to touch. Patient is afebrile. Patient denies fever, chills, chest pain, shortness of breath, abdominal pain, frequency, urgency. Review of Systems Review of Systems: All systems reviewed & are unremarkable except as noted in HPI & below Physical Exam Constitutional: WD/WN, vitals as above well developed and + morbidly obese Eyes: PERRL, conjunctivae normal, anicteric sclerae ENMT: external ear and nose normal, oropharynx normal Neck: trachea midline, no thyromegaly Respiratory: normal respiratory effort, lungs clear to auscultation Cardiovascular: Rate/Rhythm: regular rate and regular rhythm Gastrointestinal (Abdomen): normal bowel sounds, soft, nontender, no hepatosplenomegaly Musculoskeletal: no cyanosis or clubbing, extremities motor strength 5/5 Skin: no rashes, warm and dry Neurologic: patellar DTR's 2+ bilat, sensation intact Psychiatric: A+Ox3, euthymic affect Lymphatic: no cervical or axillary lymphadenopathy Results & Data ([facility]) Vital Signs (Past 12 Hours) Vital Signs Temp Pulse Pulse Resp BP BP Pulse Ox 06/19/19 15:12 36.5 C 67 17 126/82 96 06/19/19 11:30 36.6 C 68 16 104/73 92 06/19/19 08:06 36.5 C 71 18 95/56 L 94 PG Care Time/CCT Total # of Minutes Spent Total Time Spent with Patient: Total time spent is greater than 50% in coordination of care (as documented) at patient's floor/unit and/or counseling patient: Coding Level of Care Code 39084 Subseq Hosp Care Lvl 3 Diagnoses Cellulitis of right lower leg L03.115 CKD (chronic kidney disease) stage 3, GFR 30-59 ml/min N18.3 Hypertension I10 Hyperlipidemia E78.5 Depression with anxiety F41.8 Gout M1A.9XX0 Gout site: unspecified site Gout etiology: unspecified cause Chronicity: chronic Presence of tophus: without tophus Acid reflux K21.9 History of CVA (cerebrovascular accident) Z86.73 Asthma J45.30 Asthma severity: mild Asthma persistence: persistent Asthma complication type: uncomplicated Lumbar spinal stenosis M48.061 Morbid obesity with BMI of 50.0-59.9, adult E66.01; Z68.43 Hypokalemia E87.6 DVT prophylaxis Z29.9 (1) Gout Gout site: unspecified site Gout etiology: unspecified cause Chronicity: chronic Presence of tophus: without tophus Qualified Code(s): M1A.9XX0 - Chronic gout, unspecified, without tophus (tophi) (2) Asthma Asthma severity: mild Asthma persistence: persistent Asthma complication type: uncomplicated Qualified Code(s): J45.30 - Mild persistent asthma, uncomplicated
[2019-06-19] MEDS: TRAZODONE HCL 50 MG TAB PO SCH (20:45)
[2019-06-19] MEDS: QUETIAPINE FUMARATE 200 MG TAB PO SCH (20:46)
[2019-06-19] MEDS: NORTRIPTYLINE HCL 25 MG CAP PO SCH (20:46)
[2019-06-19] MEDS: MONTELUKAST SODIUM 10 MG TABLET PO SCH (20:47)
[2019-06-20] MEDS: CEFAZOLIN 2000MG 2,000 MG/15 ML SYR IV SCH ×3 (00:21→15:39)
[2019-06-20 05:58] LABS: Basophils # (auto) 0.01 K/uL (0-0.2); Basophils % (auto) 0.1 %; Eosinophils # (auto) 0.28 K/uL (0-0.5); Eosinophils % (auto) 4.1 %; Hemoglobin 11.8 g/dL (12.0-16.0); Immature Granulocytes # (auto) 0.01 K/uL (0.00-0.02); Immature Granulocytes % (auto) 0.1 %; Lymphocytes # (auto) 2.36 K/uL (1.2-3.4); Lymphocytes % (auto) 34.8 %; Mean Corpuscular Hemoglobin 25.1 pg (25-34); Mean Corpuscular Hgb Conc 31.1 g/dL (32-36); Mean Corpuscular Volume 80.7 fL (80-100); Mean Platelet Volume 9.8 fL (7.4-10.4); Monocytes # (auto) 0.48 K/uL (0.11-0.59); Monocytes % (auto) 7.1 %; Neutrophils # (auto) 3.64 K/uL (1.4-6.5); Neutrophils % (auto) 53.8 %; Platelet Count 230 K/uL (130-400); RDW Coefficient of Variation 15.8 % (11.5-14.5); RDW Standard Deviation 46.7 fL (36.4-46.3); Red Blood Count 4.71 M/uL (4.2-5.4); White Blood Count 6.78 K/uL (4.8-10.8)
[2019-06-20] MEDS: HEPARIN SOD 5,000 UNIT/0.5 ML VIAL SQ SCH ×3 (06:01→21:01)
[2019-06-20] MEDS: OXYCODONE/ACETAMINOPHEN 5mg/325mg TAB PO PRN ×2 (06:08→14:33)
[2019-06-20 06:29] LABS: Albumin Level 2.8 gm/dl (3.4-5.0); BUN Creatinine Ratio 9.5 (10-20); Calcium 8.6 mg/dl (8.5-10.1); Creatinine Clr Calc Pharmacy 81.5 ml/min; Est GFR (African American) 49.4; Est GFR (Non-African American) 42.6; Potassium 4.2 mmol/L (3.5-5.1)
[2019-06-20 06:32] LABS: Albumin Globulin Ratio 0.7 (0.9-2); Bilirubin,Total 0.2 mg/dl (0.2-1); Globulin 3.8 gm/dl (2.5-4.0); Total Protein 6.6 gm/dl (6.4-8.2)
[2019-06-20] MEDS: ARIPIprazole 1 MG/ML ORAL SOLN 150 ML BTL PO SCH (08:51)
[2019-06-20] MEDS: BUMETANIDE 1 MG TAB PO SCH (08:52)
[2019-06-20] MEDS: ASPIRIN 81 MG ECTAB PO SCH (08:53)
[2019-06-20] MEDS: DULOXETINE HCL 30 MG CAP PO SCH (08:53)
[2019-06-20] MEDS: POTASSIUM CHLORIDE 20 MEQ TABCR PO SCH ×2 (08:53→20:55)
[2019-06-20] MEDS: BusPIRone 15 MG TAB PO SCH ×3 (08:53→20:55)
[2019-06-20] MEDS: FLUTICASONE PROPIONATE NA SPR 16 GM BTL SCH (08:54)
[2019-06-20] MEDS: ATORVASTATIN 40 MG TAB PO SCH (08:54)
[2019-06-20] MEDS: MULTIVITAMIN TAB PO SCH (08:54)
[2019-06-20] MEDS: FAMOTIDINE 20 MG TAB PO SCH (08:55)
[2019-06-20] MEDS: GABAPENTIN 300 MG CAP PO SCH ×3 (08:55→20:53)
[2019-06-20] MEDS: CYANOCOBALAMIN 500 MCG TABLET (VITAMIN B-12) PO SCH (08:56)
[2019-06-20] MEDS: PANTOprazole 40 MG TAB PO SCH (08:56)
[2019-06-20] MEDS: CLOPIDOGREL BISULFATE 75 MG TAB PO SCH (08:56)
[2019-06-20] MEDS: CHOLECALCIFEROL 1,000 UNITS 25 MCG TAB PO SCH ×3 (08:57→20:56)
[2019-06-20] MEDS: BuPROPion XL 300 MG TABCR PO SCH (08:58)
[2019-06-20] MEDS: SERTRALINE HCL 100 MG TABLET PO SCH (08:58)
[2019-06-20] MEDS: allopurinoL 100 MG TAB PO SCH ×2 (08:58→20:53)
[2019-06-20] MEDS: TRIAMCINOLONE ACET 0.025% CR 15 GM TUBE EXT PRN (08:59)
--- NOTE | 2019-06-20 09:04 | Hospitalist Progress Note ---
Date of Service June 20, 2019 Assessment & Plan (1) Cellulitis of right lower leg: Failed outpatient treatment with prophylactic Keflex and Clindamycin Complicated by underlying lymphedema since nasal MRSA is neg and clinically not susp for MRSA, stopped Vanco IV Cefazolin. even though she was on Keflex prophylactically, the tissue penetration of Cefazolin is far superior to oral Kefle analgesics Wound care, consulted Dr. Betts. wound care to blisters (2) CKD (chronic kidney disease) stage 3, GFR 30-59 ml/min: Will monitor renal function. Avoid nephrotoxic agents eGFR=52 (3) Hypertension: Continue Bystolic, bumetanide, and amiloride. (4) Hyperlipidemia: Continue atorvastatin (5) Depression with anxiety: Continue aripiprazole in am, and Seroquel at night Continue bupropion, buspirone, Cymbalta, sertraline, trazodone, and nortriptyline. (6) Gout: Continue allopurinol (7) Acid reflux: Continue Protonix and Pepcid. (8) History of CVA (cerebrovascular accident): Continue Plavix and aspirin (9) Asthma: Continue Advair diskus, prn albuterol nebs, and montelukast. (10) Lumbar spinal stenosis: Continue gabapentin, methocarbamol prn, and oxycodone prn. (11) Morbid obesity with BMI of 50.0-59.9, adult: BMI=54.5 would benefit from snf weight loss measures would even consider gastric sleeve surgery (12) Hypokalemia: due to diuretics replete and monitor (13) DVT prophylaxis: sq [facility] mobilize as tolerated dispo planned to home when improved enough discontinue cardiac monitoring triamcinolone cream to chest wall rash Subjective Patient seen and examined at the bedside. She is slowly improving. Tolerating antibiotics okay. Demarcation lines are decreasing of her right lower extremity but it is still swollen and warm to touch. Patient is afebrile. Patient denies fever, chills, chest pain, shortness of breath, abdominal pain, frequency, urgency. Review of Systems Review of Systems: All systems reviewed & are unremarkable except as noted in HPI & below Physical Exam Constitutional: WD/WN, vitals as above well developed and + morbidly obese Eyes: PERRL, conjunctivae normal, anicteric sclerae ENMT: external ear and nose normal, oropharynx normal Neck: trachea midline, no thyromegaly Respiratory: normal respiratory effort, lungs clear to auscultation Cardiovascular: Rate/Rhythm: regular rate and regular rhythm Gastrointestinal (Abdomen): normal bowel sounds, soft, nontender, no hepatosplenomegaly Musculoskeletal: no cyanosis or clubbing, extremities motor strength 5/5 Skin: no rashes, warm and dry Neurologic: patellar DTR's 2+ bilat, sensation intact Psychiatric: A+Ox3, euthymic affect Lymphatic: no cervical or axillary lymphadenopathy Results & Data ([facility]) Vital Signs (Past 12 Hours) Vital Signs Temp Pulse Resp BP Pulse Ox 06/19/19 22:52 36.5 C 72 18 118/78 92 PG Care Time/CCT Total # of Minutes Spent Total Time Spent with Patient: Total time spent is greater than 50% in coordination of care (as documented) at patient's floor/unit and/or counseling patient: Coding Level of Care Code 24533 Subseq Hosp Care Lvl 3 Diagnoses Cellulitis of right lower leg L03.115 CKD (chronic kidney disease) stage 3, GFR 30-59 ml/min N18.3 Hypertension I10 Hyperlipidemia E78.5 Depression with anxiety F41.8 Gout M1A.9XX0 Chronicity: chronic Gout etiology: unspecified cause Gout site: unspecified site Presence of tophus: without tophus Acid reflux K21.9 History of CVA (cerebrovascular accident) Z86.73 Asthma J45.30 Asthma complication type: uncomplicated Asthma persistence: persistent Asthma severity: mild Lumbar spinal stenosis M48.061 Morbid obesity with BMI of 50.0-59.9, adult E66.01; Z68.43 Hypokalemia E87.6 DVT prophylaxis Z29.9 (1) Gout Chronicity: chronic Gout etiology: unspecified cause Gout site: unspecified site Presence of tophus: without tophus Qualified Code(s): M1A.9XX0 - Chronic gout, unspecified, without tophus (tophi) (2) Asthma Asthma complication type: uncomplicated Asthma persistence: persistent Asthma severity: mild Qualified Code(s): J45.30 - Mild persistent asthma, uncomplicated
[2019-06-20] MEDS ORDERED: INFLUENZA ADMINISTRATION CHARGE ONE (14:45)
[2019-06-20] MEDS: TRAZODONE HCL 50 MG TAB PO SCH (20:53)
--- NOTE | 2019-06-20 20:53 | Wound Consultation ---
Date of Consultation June 20, 2019 Assessment & Plan (1) Cellulitis of right lower leg: Wound of right lateral foot needs debridement. After obtaining permission topical Xylocaine was applied. Using scissors and forceps, the wound was debrided of nonviable skin, fibrin and slough. There is no bleeding. Patient tolerated the procedure well with no complications. This represents non- excisional debridement less than 20 cm. Wound will be dressed with Aquacel Ag and a Coban lite wrap. We will see patient in the office after discharge. Thank you for allowing me to participate in the care of this patient. Patient is to to call with any questions. History of Present Illness Reason for Consultation: Right lower extremity cellulitis Attending Physician: Wilmer Cesar MD History of Present Illness This is a 58-year-old female with a history of GERD, allergic rhinitis, asthma, chronic back pain, CKD stage III, gout, history of CVA, dyslipidemia, hypertension and lymphedema who was admitted with cellulitis with failure of outpatient therapy. Patient at baseline wears compression stockings. She stated that wound began to swell with the cellulitis and she was unable to keep her compression stocking on. She failed a course of Keflex and clindamycin. Patient now with blistering on her right lower extremity. Patient states she is improving and has no other complaints. Allergies Allergy/AdvReac Type Severity Reaction Status Date / Time Corticosteroids Allergy Intermediate RASH Verified 06/16/19 19:43 (Glucocorticoids) morphine Allergy Intermediate MOUTH Verified 06/16/19 19:43 SWELLS/FACE SWELLS orange Allergy Intermediate HIVES Verified 06/16/19 19:43 Penicillins Allergy Intermediate RASH/HIVES Verified 06/16/19 19:43 prednisone Allergy Intermediate RED RASH Verified 06/16/19 19:43 pregabalin Allergy Intermediate GOOFY Verified 06/16/19 19:43 zolpidem Allergy Intermediate UNSURE Verified 06/16/19 19:43 orange (food color) Allergy Mild rash Verified 06/16/19 19:43 Home Medications Home Medications Medication Instructions Recorded Confirmed Type albuterol sulfate 90 mcg/actuation 2 puff INHALATION Q4H PRN #18 gm 10/17/18 06/16/19 Rx aerosol inhaler fluticasone 250 mcg-salmeterol 50 1 inh INHALATION Q12H PRN #60 ea 10/17/18 06/16/19 Rx mcg/dose blistr powdr for inhalation amiloride 5 mg tablet 5 mg PO QAM #30 tab 11/03/18 06/16/19 Rx bisoprolol fumarate 5 mg tablet 5 mg PO QAM #30 tab 11/03/18 06/16/19 Rx bupropion HCl 300 mg 24 hr tablet, 300 mg PO QAM #30 tab 11/03/18 06/16/19 Rx extended release famotidine 20 mg tablet 20 mg PO QAM #30 tab 11/03/18 06/16/19 Rx acetaminophen 500 mg tablet 500 mg PO Q4H PRN #30 tab 11/09/18 06/16/19 Rx aspirin 81 mg tablet,delayed 81 mg PO QAM #30 tab 11/09/18 06/16/19 Rx release buspirone 15 mg tablet 15 mg PO TID #30 tab 11/09/18 06/16/19 Rx calcium carbonate 300 mg (750 mg) 900 mg PO DAILY PRN #30 tab 11/09/18 06/16/19 Rx chewable tablet cholecalciferol (vitamin D3) 50 2,000 unit PO TID #30 cap 11/09/18 06/16/19 Rx mcg (2,000 unit) capsule cyanocobalamin (vitamin B-12) 1,000 mcg PO DAILY #30 tab 11/09/18 06/16/19 Rx 1,000 mcg tablet fluticasone propionate 50 2 sprays INTRANASAL DAILY #9.9 gm 11/09/18 06/16/19 Rx mcg/actuation nasal spray,suspension gabapentin 300 mg capsule 300 mg PO TID #90 cap 11/09/18 06/16/19 Rx methocarbamol 500 mg tablet See Rx Instructions PO TID PRN #90 11/09/18 06/16/19 Rx tab montelukast 10 mg tablet 10 mg PO PM #30 tab 11/09/18 06/16/19 Rx multivitamin 1 tab PO QAM #30 tab 11/09/18 06/16/19 Rx quetiapine 400 mg tablet 400 mg PO HS #30 tab 11/09/18 06/16/19 Rx aripiprazole 2 mg tablet 2 mg PO DAILY 01/31/19 06/16/19 History compress.stocking,knee,reg,med #2 ea 01/31/19 01/31/19 Rx duloxetine 30 mg capsule,delayed 30 mg PO QAM #90 cap 01/31/19 06/16/19 Rx release metoclopramide HCl 5 mg tablet 5 mg PO QID PRN tab 01/31/19 06/16/19 History sertraline 100 mg tablet 200 mg PO DAILY tab 01/31/19 06/16/19 History trazodone 150 mg tablet 150 mg PO HS tab 01/31/19 06/16/19 History cephalexin 500 mg capsule 500 mg PO Q12H #60 cap 02/27/19 06/16/19 Rx bumetanide 2 mg tablet 2 mg PO .COMPLEX #45 tab 04/12/19 06/16/19 Rx pantoprazole 40 mg tablet,delayed 40 mg PO QAM #30 tab 04/17/19 06/16/19 Rx release nortriptyline 50 mg capsule 150 mg PO HS #90 cap 04/24/19 06/16/19 Rx atorvastatin 40 mg tablet 40 mg PO DAILY #90 tab 04/27/19 06/16/19 Rx clopidogrel 75 mg tablet 75 mg PO DAILY #90 tab 04/27/19 06/16/19 Rx oxycodone 5 mg tablet 5 mg PO Q6H PRN #90 tab 06/05/19 06/16/19 Rx allopurinol 100 mg tablet 100 mg PO BID #180 tab 06/07/19 06/16/19 Rx clindamycin HCl 300 mg PO QID 06/16/19 06/16/19 History Patient History Medical History Acid reflux Allergic rhinitis Arthritis Asthma Chronic back pain Chronic cutaneous venous stasis ulcer (Resolved) CKD (chronic kidney disease) stage 3, GFR 30-59 ml/min 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; 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- DISCOVERED WITH INCIDENTAL IMAGING Degenerative joint disease, shoulder, right (Resolved) Depression with anxiety Gout History of CVA (cerebrovascular accident) Hyperlipidemia Hypertension Left leg weakness (Resolved) Lumbar spinal stenosis Lymphedema (Acute) Morbid obesity Other ovarian cyst, left side Peripheral neuropathy TIA (transient ischemic attack) 2017- ON [place] Vitamin D deficiency Surgical History H/O total knee replacement B/L H/O ventral hernia repair History of appendectomy History of carpal tunnel release B/L History of cholecystectomy S/P tonsillectomy and adenoidectomy Status post total shoulder arthroplasty (10/17/18) R Family History Father Coronary heart disease ND x 2 Diabetes Lung disease Hypertension Gallbladder disease Myocardial infarction Mother Diabetes Gallbladder disease Hypertension Coronary heart disease Myocardial infarction S/P CABG x 3 Sister Hodgkins lymphoma Brother Kidney disease Grandmother Breast cancer Aunt Ovarian cancer Other Cancer Social History Preferred Language: French 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 Ability: Effective 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 Beliefs That Will Affect Care: None marital status details: ; lives with parents & 1 daughter Current Living Situation: Family Current Living Situation Comment: Lives in [place] current occupational status: disabled Other Information That Helps Us Care for You: No other: worked in [employer] in [employer]; 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 Wound is an intact blister at this time. Right lateral foot wound measuring 8 x 7 cm. Wound is covered with nonviable skin, fibrin and slough. There is moderate drainage. Wound #3, right medial distal ankle measuring 2.2 x 3.2. Right medial proximal ankle measuring 0.5 x 1 centimeter. Results & Data Vital Signs (Past 12 Hours) Vital Signs Temp Pulse Resp BP Pulse Ox 06/20/19 15:13 36.6 C 70 18 172/85 H 93 PG Care Time/CCT Total # of Minutes Spent Total Time Spent with Patient: Total time spent is greater than 50% in coordination of care (as documented) at patient's floor/unit and/or counseling patient: Coding Level of Care Code 46003 Inpt Consult Level 3 Diagnoses Cellulitis of right lower leg L03.115
[2019-06-20] MEDS: NORTRIPTYLINE HCL 25 MG CAP PO SCH (20:54)
[2019-06-20] MEDS: QUETIAPINE FUMARATE 200 MG TAB PO SCH (20:56)
[2019-06-20] MEDS: MONTELUKAST SODIUM 10 MG TABLET PO SCH (20:57)
[2019-06-20] MEDS: MICONAZOLE NITRATE POWDER 43 GM EXT PRN (20:59)
[2019-06-21] MEDS: CEFAZOLIN 2000MG 2,000 MG/15 ML SYR IV SCH ×4 (00:25→23:27)
[2019-06-21] MEDS: OXYCODONE/ACETAMINOPHEN 5mg/325mg TAB PO PRN ×3 (05:26→19:27)
[2019-06-21] MEDS: HEPARIN SOD 5,000 UNIT/0.5 ML VIAL SQ SCH ×3 (05:27→21:36)
[2019-06-21 06:00] LABS: Basophils # (auto) 0.01 K/uL (0-0.2); Basophils % (auto) 0.1 %; Eosinophils # (auto) 0.27 K/uL (0-0.5); Eosinophils % (auto) 3.7 %; Hematocrit (blood only) 40.2 % (37-47); Hemoglobin 12.6 g/dL (12.0-16.0); Immature Granulocytes # (auto) 0.01 K/uL (0.00-0.02); Immature Granulocytes % (auto) 0.1 %; Lymphocytes # (auto) 2.26 K/uL (1.2-3.4); Lymphocytes % (auto) 31.1 %; Mean Corpuscular Hemoglobin 25.4 pg (25-34); Mean Corpuscular Hgb Conc 31.3 g/dL (32-36); Mean Platelet Volume 9.8 fL (7.4-10.4); Monocytes # (auto) 0.33 K/uL (0.11-0.59); Monocytes % (auto) 4.5 %; Neutrophils # (auto) 4.39 K/uL (1.4-6.5); Neutrophils % (auto) 60.5 %; Platelet Count 253 K/uL (130-400); RDW Coefficient of Variation 16.1 % (11.5-14.5); RDW Standard Deviation 46.9 fL (36.4-46.3); Red Blood Count 4.96 M/uL (4.2-5.4); White Blood Count 7.27 K/uL (4.8-10.8)
[2019-06-21 06:41] LABS: Albumin Level 3.1 gm/dl (3.4-5.0); BUN Creatinine Ratio 10.7 (10-20); Calcium 9.1 mg/dl (8.5-10.1); Creatinine Clr Calc Pharmacy 77.6 ml/min; Est GFR (African American) 46.5; Est GFR (Non-African American) 40.2; Potassium 4.1 mmol/L (3.5-5.1)
[2019-06-21 06:43] LABS: Albumin Globulin Ratio 0.7 (0.9-2); Bilirubin,Total 0.2 mg/dl (0.2-1); Globulin 4.2 gm/dl (2.5-4.0); Total Protein 7.3 gm/dl (6.4-8.2)
--- NOTE | 2019-06-21 07:34 | Hospitalist Progress Note ---
Date of Service June 21, 2019 Assessment & Plan (1) Cellulitis of right lower leg: Failed outpatient treatment with prophylactic Keflex and Clindamycin Complicated by underlying lymphedema since nasal MRSA is neg and clinically not susp for MRSA, stopped Vanco IV Cefazolin.Even though she was on Keflex prophylactically, the tissue penetration of Cefazolin is far superior to oral Keflex analgesics Wound care, consulted Dr. Betts. wound care to blisters (2) CKD (chronic kidney disease) stage 3, GFR 30-59 ml/min: Will monitor renal function. Avoid nephrotoxic agents eGFR=52 (3) Hypertension: Continue Bystolic, bumetanide, and amiloride. (4) Hyperlipidemia: Continue atorvastatin (5) Depression with anxiety: Continue aripiprazole in am, and Seroquel at night Continue bupropion, buspirone, Cymbalta, sertraline, trazodone, and nortriptyline. (6) Gout: Continue allopurinol (7) Acid reflux: Continue Protonix and Pepcid. (8) History of CVA (cerebrovascular accident): Continue Plavix and aspirin (9) Asthma: Continue Advair diskus, prn albuterol nebs, and montelukast. (10) Lumbar spinal stenosis: Continue gabapentin, methocarbamol prn, and oxycodone prn. (11) Morbid obesity with BMI of 50.0-59.9, adult: BMI=54.5 would benefit from group home weight loss measures would even consider gastric sleeve surgery (12) Hypokalemia: due to diuretics replete and monitor (13) DVT prophylaxis: sq [facility] mobilize as tolerated dispo planned to home when improved enough discontinue cardiac monitoring triamcinolone cream to chest wall rash (14) ANDRZEJ (obstructive sleep apnea): Continue BIPAP HS Present on Admission?: Yes Subjective Patient seen and examined at the bedside. She is slowly improving. Tolerating antibiotics okay. Demarcation lines are decreasing of her right lower extremity but it is still swollen and warm to touch. Patient is afebrile. Patient denies fever, chills, chest pain, shortness of breath, abdominal pain, frequency, urgency. Review of Systems Review of Systems: All systems reviewed & are unremarkable except as noted in HPI & below Physical Exam Constitutional: WD/WN, vitals as above well developed and + morbidly obese Eyes: PERRL, conjunctivae normal, anicteric sclerae ENMT: external ear and nose normal, oropharynx normal Neck: trachea midline, no thyromegaly Respiratory: normal respiratory effort, lungs clear to auscultation Cardiovascular: Rate/Rhythm: regular rate and regular rhythm Gastrointestinal (Abdomen): normal bowel sounds, soft, nontender, no hepatosplenomegaly Musculoskeletal: no cyanosis or clubbing, extremities motor strength 5/5 Skin: no rashes, warm and dry Neurologic: patellar DTR's 2+ bilat, sensation intact Psychiatric: A+Ox3, euthymic affect Lymphatic: no cervical or axillary lymphadenopathy Results & Data ([facility]) Vital Signs (Past 12 Hours) Vital Signs Temp Pulse Resp BP BP Pulse Ox 06/21/19 06:39 36.4 C L 74 16 125/76 94 06/20/19 22:57 36.3 C L 73 16 134/80 94 PG Care Time/CCT Total # of Minutes Spent Total Time Spent with Patient: Total time spent is greater than 50% in coordination of care (as documented) at patient's floor/unit and/or counseling patient: Coding Level of Care Code 14151 Subseq Hosp Care Lvl 3 Diagnoses Cellulitis of right lower leg L03.115 CKD (chronic kidney disease) stage 3, GFR 30-59 ml/min N18.3 Hypertension I10 Hyperlipidemia E78.5 Depression with anxiety F41.8 Gout M1A.9XX0 Chronicity: chronic Gout etiology: unspecified cause Gout site: unspecified site Presence of tophus: without tophus Acid reflux K21.9 History of CVA (cerebrovascular accident) Z86.73 Asthma J45.30 Asthma complication type: uncomplicated Asthma persistence: persistent Asthma severity: mild Lumbar spinal stenosis M48.061 Morbid obesity with BMI of 50.0-59.9, adult E66.01; Z68.43 Hypokalemia E87.6 DVT prophylaxis Z29.9 ANDRZEJ (obstructive sleep apnea) G47.33 (1) Gout Chronicity: chronic Gout etiology: unspecified cause Gout site: unspecified site Presence of tophus: without tophus Qualified Code(s): M1A.9XX0 - Chronic gout, unspecified, without tophus (tophi) (2) Asthma Asthma complication type: uncomplicated Asthma persistence: persistent Asthma severity: mild Qualified Code(s): J45.30 - Mild persistent asthma, uncomplicated
[2019-06-21] MEDS: ARIPIprazole 1 MG/ML ORAL SOLN 150 ML BTL PO SCH (09:00)
[2019-06-21] MEDS: PANTOprazole 40 MG TAB PO SCH (09:00)
[2019-06-21] MEDS: BuPROPion XL 300 MG TABCR PO SCH (09:01)
[2019-06-21] MEDS: ASPIRIN 81 MG ECTAB PO SCH (09:01)
[2019-06-21] MEDS: BUMETANIDE 1 MG TAB PO SCH (09:01)
[2019-06-21] MEDS: CYANOCOBALAMIN 500 MCG TABLET (VITAMIN B-12) PO SCH (09:01)
[2019-06-21] MEDS: CHOLECALCIFEROL 1,000 UNITS 25 MCG TAB PO SCH ×3 (09:01→21:42)
[2019-06-21] MEDS: DULOXETINE HCL 30 MG CAP PO SCH (09:02)
[2019-06-21] MEDS: GABAPENTIN 300 MG CAP PO SCH ×3 (09:02→21:42)
[2019-06-21] MEDS: BusPIRone 15 MG TAB PO SCH ×3 (09:02→21:44)
[2019-06-21] MEDS: FLUTICASONE PROPIONATE NA SPR 16 GM BTL SCH (09:02)
[2019-06-21] MEDS: CLOPIDOGREL BISULFATE 75 MG TAB PO SCH (09:02)
[2019-06-21] MEDS: POTASSIUM CHLORIDE 20 MEQ TABCR PO SCH ×2 (09:02→21:46)
[2019-06-21] MEDS: allopurinoL 100 MG TAB PO SCH ×2 (09:02→21:39)
[2019-06-21] MEDS: ATORVASTATIN 40 MG TAB PO SCH (09:02)
[2019-06-21] MEDS: MULTIVITAMIN TAB PO SCH (09:02)
[2019-06-21] MEDS: SERTRALINE HCL 100 MG TABLET PO SCH (09:03)
[2019-06-21] MEDS: FAMOTIDINE 20 MG TAB PO SCH (10:04)
[2019-06-21] MEDS: ACETAMINOPHEN 325 MG TAB PO PRN (15:33)
[2019-06-21] MEDS: QUETIAPINE FUMARATE 200 MG TAB PO SCH (21:40)
[2019-06-21] MEDS: MONTELUKAST SODIUM 10 MG TABLET PO SCH (21:41)
[2019-06-21] MEDS: TRAZODONE HCL 50 MG TAB PO SCH (21:45)
[2019-06-21] MEDS: NORTRIPTYLINE HCL 25 MG CAP PO SCH (21:46)
[2019-06-22] MEDS: HEPARIN SOD 5,000 UNIT/0.5 ML VIAL SQ SCH ×3 (06:17→21:36)
[2019-06-22 06:54] LABS: Basophils # (auto) 0.02 K/uL (0-0.2); Basophils % (auto) 0.3 %; Eosinophils # (auto) 0.32 K/uL (0-0.5); Eosinophils % (auto) 4.6 %; Hematocrit (blood only) 36.5 % (37-47); Hemoglobin 11.7 g/dL (12.0-16.0); Immature Granulocytes # (auto) 0.01 K/uL (0.00-0.02); Immature Granulocytes % (auto) 0.1 %; Lymphocytes % (auto) 34.2 %; Mean Corpuscular Hemoglobin 25.5 pg (25-34); Mean Corpuscular Hgb Conc 32.1 g/dL (32-36); Mean Corpuscular Volume 79.7 fL (80-100); Mean Platelet Volume 9.6 fL (7.4-10.4); Monocytes # (auto) 0.37 K/uL (0.11-0.59); Monocytes % (auto) 5.3 %; Neutrophils % (auto) 55.5 %; Platelet Count 245 K/uL (130-400); RDW Coefficient of Variation 16.1 % (11.5-14.5); RDW Standard Deviation 46.8 fL (36.4-46.3); Red Blood Count 4.58 M/uL (4.2-5.4); White Blood Count 7.02 K/uL (4.8-10.8)
[2019-06-22 07:21] LABS: Albumin Level 2.9 gm/dl (3.4-5.0); BUN Creatinine Ratio 10.9 (10-20); Calcium 8.7 mg/dl (8.5-10.1); Creatinine Clr Calc Pharmacy 81.5 ml/min; Est GFR (African American) 49.4; Est GFR (Non-African American) 42.6; Potassium 4.1 mmol/L (3.5-5.1)
[2019-06-22 07:24] LABS: Albumin Globulin Ratio 0.7 (0.9-2); Bilirubin,Total 0.3 mg/dl (0.2-1); Globulin 3.9 gm/dl (2.5-4.0); Total Protein 6.8 gm/dl (6.4-8.2)
[2019-06-22] MEDS: OXYCODONE/ACETAMINOPHEN 5mg/325mg TAB PO PRN ×3 (07:42→21:59)
[2019-06-22] MEDS: CEFAZOLIN 2000MG 2,000 MG/15 ML SYR IV SCH ×2 (07:58→16:18)
[2019-06-22] MEDS: FLUTICASONE PROPIONATE NA SPR 16 GM BTL SCH (09:26)
[2019-06-22] MEDS: ARIPIprazole 1 MG/ML ORAL SOLN 150 ML BTL PO SCH (09:27)
[2019-06-22] MEDS: ASPIRIN 81 MG ECTAB PO SCH (09:27)
[2019-06-22] MEDS: FAMOTIDINE 20 MG TAB PO SCH (09:27)
[2019-06-22] MEDS: CYANOCOBALAMIN 500 MCG TABLET (VITAMIN B-12) PO SCH (09:27)
[2019-06-22] MEDS: PANTOprazole 40 MG TAB PO SCH (09:27)
[2019-06-22] MEDS: BuPROPion XL 300 MG TABCR PO SCH (09:27)
[2019-06-22] MEDS: GABAPENTIN 300 MG CAP PO SCH ×3 (09:27→21:31)
[2019-06-22] MEDS: MULTIVITAMIN TAB PO SCH (09:28)
[2019-06-22] MEDS: ATORVASTATIN 40 MG TAB PO SCH (09:28)
[2019-06-22] MEDS: BUMETANIDE 1 MG TAB PO SCH (09:28)
[2019-06-22] MEDS: BusPIRone 15 MG TAB PO SCH ×3 (09:28→21:29)
[2019-06-22] MEDS: DULOXETINE HCL 30 MG CAP PO SCH (09:28)
[2019-06-22] MEDS: allopurinoL 100 MG TAB PO SCH ×2 (09:28→21:36)
[2019-06-22] MEDS: SERTRALINE HCL 100 MG TABLET PO SCH (09:28)
[2019-06-22] MEDS: CHOLECALCIFEROL 1,000 UNITS 25 MCG TAB PO SCH ×3 (09:28→21:35)
[2019-06-22] MEDS: CLOPIDOGREL BISULFATE 75 MG TAB PO SCH (09:28)
[2019-06-22] MEDS: POTASSIUM CHLORIDE 20 MEQ TABCR PO SCH ×2 (09:29→21:30)
--- NOTE | 2019-06-22 14:09 | Hospitalist Progress Note ---
Date of Service June 22, 2019 Assessment & Plan (1) Cellulitis of right lower leg: Failed outpatient treatment with prophylactic Keflex and Clindamycin Complicated by underlying lymphedema since nasal MRSA is neg and clinically not susp for MRSA, stopped Vanco IV Cefazolin.Even though she was on Keflex prophylactically, the tissue penetration of Cefazolin is far superior to oral Keflex analgesics Wound care, consulted Dr. Betts. wound care to blisters PICC today for use on d/c (2) CKD (chronic kidney disease) stage 3, GFR 30-59 ml/min: Will monitor renal function. Avoid nephrotoxic agents eGFR=52 (3) Hypertension: Continue Bystolic, bumetanide, and amiloride. (4) Hyperlipidemia: Continue atorvastatin (5) Depression with anxiety: Continue aripiprazole in am, and Seroquel at night Continue bupropion, buspirone, Cymbalta, sertraline, trazodone, and nortriptyline. (6) Gout: Continue allopurinol (7) Acid reflux: Continue Protonix and Pepcid. (8) History of CVA (cerebrovascular accident): Continue Plavix and aspirin (9) Asthma: Continue Advair diskus, prn albuterol nebs, and montelukast. (10) Lumbar spinal stenosis: Continue gabapentin, methocarbamol prn, and oxycodone prn. (11) Morbid obesity with BMI of 50.0-59.9, adult: BMI=54.5 would benefit from [facility] weight loss measures (12) Hypokalemia: due to diuretics replete and monitor (13) DVT prophylaxis: sq [facility] mobilize as tolerated dispo planned to home when improved enough discontinue cardiac monitoring triamcinolone cream to chest wall rash (14) ANDRZEJ (obstructive sleep apnea): Continue BIPAP HS Subjective Pt feels her R LE is much improved. 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 Tolerating PO without issue. Pt denies fever, SOB, chest pain, abd pain, n/v/c/d. No major LE pain. Review of Systems Review of Systems: Pertinent positives and negatives reviewed in HPI--all others negative Physical Exam Constitutional: WD/WN, vitals as above Eyes: normal visual razo by confrontation and + anicteric sclerae Neck: normal visual inspection and trachea midline Respiratory: normal respiratory effort, lungs clear to auscultation Cardiovascular: Rate/Rhythm: regular rate and regular rhythm Gastrointestinal (Abdomen): Inspection/Auscultation: abdomen not distended Percussion/Palpation: abdomen soft; abdomen nontender Musculoskeletal: Head/Neck/Chest: normocephalic and head atraumatic negative for edema, peripheral pulses intact Skin: R LE with bandaging in place, clean and dry. No redness noted above bandaging Neurologic: awake; not confused Speech / Cognition: normal speech Psychiatric: A+Ox3, euthymic affect Results & Data ([facility]) Vital Signs (Past 12 Hours) Vital Signs Temp Pulse Resp BP Pulse Ox 06/22/19 10:50 36.5 C 75 16 142/82 H 95 06/22/19 07:45 36.4 C L 75 16 125/75 95 PG Care Time/CCT Total # of Minutes Spent Total Time Spent with Patient: Total time spent is greater than 50% in coordination of care (as documented) at patient's floor/unit and/or counseling patient: Coding Level of Care Code 77742 Subseq Hosp Care Lvl 3 Diagnoses Cellulitis of right lower leg L03.115 CKD (chronic kidney disease) stage 3, GFR 30-59 ml/min N18.3 Hypertension I10 Hyperlipidemia E78.5 Depression with anxiety F41.8 Gout M1A.9XX0 Gout site: unspecified site Gout etiology: unspecified cause Chronicity: chronic Presence of tophus: without tophus Acid reflux K21.9 History of CVA (cerebrovascular accident) Z86.73 Asthma J45.30 Asthma severity: mild Asthma persistence: persistent Asthma complication type: uncomplicated Lumbar spinal stenosis M48.061 Morbid obesity with BMI of 50.0-59.9, adult E66.01; Z68.43 Hypokalemia E87.6 DVT prophylaxis Z29.9 ANDRZEJ (obstructive sleep apnea) G47.33 (1) Gout Gout site: unspecified site Gout etiology: unspecified cause Chronicity: chronic Presence of tophus: without tophus Qualified Code(s): M1A.9XX0 - Chronic gout, unspecified, without tophus (tophi) (2) Asthma Asthma severity: mild Asthma persistence: persistent Asthma complication type: uncomplicated Qualified Code(s): J45.30 - Mild persistent asthma, uncomplicated
[2019-06-22] MEDS: TRAZODONE HCL 50 MG TAB PO SCH (21:30)
[2019-06-22] MEDS: NORTRIPTYLINE HCL 25 MG CAP PO SCH (21:32)
[2019-06-22] MEDS: QUETIAPINE FUMARATE 200 MG TAB PO SCH (21:33)
[2019-06-22] MEDS: MONTELUKAST SODIUM 10 MG TABLET PO SCH (21:34)
[2019-06-22] MEDS: ACETAMINOPHEN 325 MG TAB PO PRN (22:42)
[2019-06-23] MEDS: CEFAZOLIN 2000MG 2,000 MG/15 ML SYR IV SCH ×4 (00:02→23:51)
[2019-06-23] MEDS: OXYCODONE/ACETAMINOPHEN 5mg/325mg TAB PO PRN ×2 (02:18→07:57)
[2019-06-23] MEDS: HEPARIN SOD 5,000 UNIT/0.5 ML VIAL SQ SCH ×3 (05:30→21:13)
[2019-06-23] MEDS: ACETAMINOPHEN 325 MG TAB PO PRN (05:30)
[2019-06-23 05:40] LABS: Basophils # (auto) 0.02 K/uL (0-0.2); Basophils % (auto) 0.3 %; Eosinophils # (auto) 0.36 K/uL (0-0.5); Eosinophils % (auto) 4.6 %; Hematocrit (blood only) 38.2 % (37-47); Hemoglobin 12.2 g/dL (12.0-16.0); Immature Granulocytes # (auto) 0.01 K/uL (0.00-0.02); Immature Granulocytes % (auto) 0.1 %; Lymphocytes # (auto) 2.45 K/uL (1.2-3.4); Lymphocytes % (auto) 31.6 %; Mean Corpuscular Hemoglobin 25.4 pg (25-34); Mean Corpuscular Hgb Conc 31.9 g/dL (32-36); Mean Corpuscular Volume 79.6 fL (80-100); Mean Platelet Volume 9.3 fL (7.4-10.4); Monocytes # (auto) 0.31 K/uL (0.11-0.59); Neutrophils % (auto) 59.4 %; Platelet Count 258 K/uL (130-400); RDW Standard Deviation 46.5 fL (36.4-46.3); White Blood Count 7.75 K/uL (4.8-10.8)
[2019-06-23 06:10] LABS: Albumin Level 3.2 gm/dl (3.4-5.0); BUN Creatinine Ratio 11.3 (10-20); Calcium 9.1 mg/dl (8.5-10.1); Creatinine Clr Calc Pharmacy 78.1 ml/min; Est GFR (African American) 46.9; Est GFR (Non-African American) 40.5; Potassium 4.2 mmol/L (3.5-5.1)
[2019-06-23 06:12] LABS: Albumin Globulin Ratio 0.8 (0.9-2); Bilirubin,Total 0.2 mg/dl (0.2-1); Globulin 4.2 gm/dl (2.5-4.0); Total Protein 7.4 gm/dl (6.4-8.2)
[2019-06-23] MEDS: allopurinoL 100 MG TAB PO SCH ×2 (09:13→21:17)
[2019-06-23] MEDS: CLOPIDOGREL BISULFATE 75 MG TAB PO SCH (09:14)
[2019-06-23] MEDS: ATORVASTATIN 40 MG TAB PO SCH (09:14)
[2019-06-23] MEDS: ARIPIprazole 1 MG/ML ORAL SOLN 150 ML BTL PO SCH (09:14)
[2019-06-23] MEDS: CHOLECALCIFEROL 1,000 UNITS 25 MCG TAB PO SCH ×3 (09:14→21:18)
[2019-06-23] MEDS: MULTIVITAMIN TAB PO SCH (09:14)
[2019-06-23] MEDS: BuPROPion XL 300 MG TABCR PO SCH (09:15)
[2019-06-23] MEDS: CYANOCOBALAMIN 500 MCG TABLET (VITAMIN B-12) PO SCH (09:15)
[2019-06-23] MEDS: DULOXETINE HCL 30 MG CAP PO SCH (09:15)
[2019-06-23] MEDS: PANTOprazole 40 MG TAB PO SCH (09:15)
[2019-06-23] MEDS: BUMETANIDE 1 MG TAB PO SCH (09:16)
[2019-06-23] MEDS: FAMOTIDINE 20 MG TAB PO SCH (09:16)
[2019-06-23] MEDS: SERTRALINE HCL 100 MG TABLET PO SCH (09:16)
[2019-06-23] MEDS: ASPIRIN 81 MG ECTAB PO SCH (09:16)
[2019-06-23] MEDS: GABAPENTIN 300 MG CAP PO SCH ×3 (09:17→21:14)
[2019-06-23] MEDS: POTASSIUM CHLORIDE 20 MEQ TABCR PO SCH ×2 (09:17→21:15)
[2019-06-23] MEDS: BusPIRone 15 MG TAB PO SCH ×3 (09:18→21:17)
[2019-06-23] MEDS: FLUTICASONE PROPIONATE NA SPR 16 GM BTL SCH (09:19)
[2019-06-23] MEDS: MAGNESIUM HYDROXIDE SUSP 30 ML UDC PO PRN (10:26)
--- NOTE | 2019-06-23 13:20 | Hospitalist Progress Note ---
Date of Service June 23, 2019 Assessment & Plan (1) Cellulitis of right lower leg: Failed outpatient treatment with prophylactic Keflex and Clindamycin Complicated by underlying lymphedema since nasal MRSA is neg and clinically not susp for MRSA, stopped Vanco IV Cefazolin.Even though she was on Keflex prophylactically, the tissue penetration of Cefazolin is far superior to oral Keflex Wound care, consulted Dr. Betts, bedside debridement on 06/20 US guided IV placed on 06/22 and working well (2) CKD (chronic kidney disease) stage 3, GFR 30-59 ml/min: Will monitor renal function. Avoid nephrotoxic agents eGFR=52 (3) Hypertension: Continue Bystolic, bumetanide, and amiloride. (4) Hyperlipidemia: Continue atorvastatin (5) Depression with anxiety: Continue aripiprazole in am, and Seroquel at night Continue bupropion, buspirone, Cymbalta, sertraline, trazodone, and nortriptyline. (6) Gout: Continue allopurinol (7) Acid reflux: Continue Protonix and Pepcid. (8) History of CVA (cerebrovascular accident): Continue Plavix and aspirin (9) Asthma: Continue Advair diskus, prn albuterol nebs, and montelukast. (10) Lumbar spinal stenosis: Continue gabapentin, methocarbamol prn, and oxycodone prn. 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 Tolerating PO without issue. Pt denies fever, SOB, chest pain, abd pain, n/v/c/d. No major LE pain. Review of Systems Review of Systems: Pertinent positives and negatives reviewed in HPI--all others negative Physical Exam Constitutional: WD/WN, vitals as above Eyes: normal visual razo by confrontation and + anicteric sclerae Neck: normal visual inspection and trachea midline Respiratory: normal respiratory effort, lungs clear to auscultation Cardiovascular: Rate/Rhythm: regular rate and regular rhythm Gastrointestinal (Abdomen): Inspection/Auscultation: abdomen not distended Percussion/Palpation: abdomen soft; abdomen nontender Musculoskeletal: Head/Neck/Chest: normocephalic and head atraumatic neg LE swelling Neurologic: awake; not confused Speech / Cognition: normal speech Psychiatric: A+Ox3, euthymic affect Results & Data ([facility]) Vital Signs (Past 12 Hours) Vital Signs Temp Pulse Resp BP Pulse Ox 06/23/19 07:30 36.3 C L 70 18 125/75 94 PG Care Time/CCT Total # of Minutes Spent Total Time Spent with Patient: Total time spent is greater than 50% in coordination of care (as documented) at patient's floor/unit and/or counseling patient: Coding Level of Care Code 88386 Subseq Hosp Care Lvl 2 Diagnoses Cellulitis of right lower leg L03.115 CKD (chronic kidney disease) stage 3, GFR 30-59 ml/min N18.3 Hypertension I10 Hyperlipidemia E78.5 Depression with anxiety F41.8 Gout M1A.9XX0 Gout site: unspecified site Gout etiology: unspecified cause Chronicity: chronic Presence of tophus: without tophus Acid reflux K21.9 History of CVA (cerebrovascular accident) Z86.73 Asthma J45.30 Asthma severity: mild Asthma persistence: persistent Asthma complication type: uncomplicated Lumbar spinal stenosis M48.061 Morbid obesity with BMI of 50.0-59.9, adult E66.01; Z68.43 Hypokalemia E87.6 ANDRZEJ (obstructive sleep apnea) G47.33 DVT prophylaxis Z29.9 (1) Gout Gout site: unspecified site Gout etiology: unspecified cause Chronicity: chronic Presence of tophus: without tophus Qualified Code(s): M1A.9XX0 - Chronic gout, unspecified, without tophus (tophi) (2) Asthma Asthma severity: mild Asthma persistence: persistent Asthma complication type: uncomplicated Qualified Code(s): J45.30 - Mild persistent asthma, uncomplicated
[2019-06-23] MEDS: TRAZODONE HCL 50 MG TAB PO SCH (21:12)
[2019-06-23] MEDS: QUETIAPINE FUMARATE 200 MG TAB PO SCH (21:16)
[2019-06-23] MEDS: MONTELUKAST SODIUM 10 MG TABLET PO SCH (21:17)
[2019-06-23] MEDS: NORTRIPTYLINE HCL 25 MG CAP PO SCH (21:19)
[2019-06-24] MEDS: HEPARIN SOD 5,000 UNIT/0.5 ML VIAL SQ SCH (05:14)
[2019-06-24 07:32] LABS: Basophils # (auto) 0.02 K/uL (0-0.2); Basophils % (auto) 0.3 %; Eosinophils # (auto) 0.45 K/uL (0-0.5); Eosinophils % (auto) 6.1 %; Hematocrit (blood only) 37.8 % (37-47); Hemoglobin 11.9 g/dL (12.0-16.0); Immature Granulocytes # (auto) 0.01 K/uL (0.00-0.02); Immature Granulocytes % (auto) 0.1 %; Lymphocytes # (auto) 2.55 K/uL (1.2-3.4); Lymphocytes % (auto) 34.4 %; Mean Corpuscular Hemoglobin 25.5 pg (25-34); Mean Corpuscular Hgb Conc 31.5 g/dL (32-36); Mean Corpuscular Volume 81.1 fL (80-100); Mean Platelet Volume 10.1 fL (7.4-10.4); Monocytes # (auto) 0.39 K/uL (0.11-0.59); Monocytes % (auto) 5.3 %; Neutrophils # (auto) 3.99 K/uL (1.4-6.5); Neutrophils % (auto) 53.8 %; Platelet Count 216 K/uL (130-400); RDW Coefficient of Variation 16.2 % (11.5-14.5); Red Blood Count 4.66 M/uL (4.2-5.4); White Blood Count 7.41 K/uL (4.8-10.8)
[2019-06-24 08:00] LABS: Albumin Level 3.1 gm/dl (3.4-5.0); BUN Creatinine Ratio 12.1 (10-20); Calcium 9.2 mg/dl (8.5-10.1); Creatinine Clr Calc Pharmacy 83.3 ml/min; Est GFR (African American) 50.7; Est GFR (Non-African American) 43.8; Potassium 4.3 mmol/L (3.5-5.1)
[2019-06-24 08:03] LABS: Albumin Globulin Ratio 0.8 (0.9-2); Bilirubin,Total 0.3 mg/dl (0.2-1); Globulin 3.8 gm/dl (2.5-4.0); Total Protein 6.9 gm/dl (6.4-8.2)
[2019-06-24] MEDS: CEFAZOLIN 2000MG 2,000 MG/15 ML SYR IV SCH (08:26)
[2019-06-24] MEDS: ARIPIprazole 1 MG/ML ORAL SOLN 150 ML BTL PO SCH (09:26)
[2019-06-24] MEDS: BusPIRone 15 MG TAB PO SCH (09:27)
[2019-06-24] MEDS: DULOXETINE HCL 30 MG CAP PO SCH (09:28)
[2019-06-24] MEDS: BUMETANIDE 1 MG TAB PO SCH (09:28)
[2019-06-24] MEDS: FLUTICASONE PROPIONATE NA SPR 16 GM BTL SCH (09:28)
[2019-06-24] MEDS: ASPIRIN 81 MG ECTAB PO SCH (09:28)
[2019-06-24] MEDS: POTASSIUM CHLORIDE 20 MEQ TABCR PO SCH (09:29)
[2019-06-24] MEDS: ATORVASTATIN 40 MG TAB PO SCH (09:29)
[2019-06-24] MEDS: MULTIVITAMIN TAB PO SCH (09:30)
[2019-06-24] MEDS: GABAPENTIN 300 MG CAP PO SCH (09:30)
[2019-06-24] MEDS: FAMOTIDINE 20 MG TAB PO SCH (09:31)
[2019-06-24] MEDS: PANTOprazole 40 MG TAB PO SCH (09:31)
[2019-06-24] MEDS: CLOPIDOGREL BISULFATE 75 MG TAB PO SCH (09:31)
[2019-06-24] MEDS: CYANOCOBALAMIN 500 MCG TABLET (VITAMIN B-12) PO SCH (09:32)
[2019-06-24] MEDS: BuPROPion XL 300 MG TABCR PO SCH (09:32)
[2019-06-24] MEDS: CHOLECALCIFEROL 1,000 UNITS 25 MCG TAB PO SCH (09:32)
[2019-06-24] MEDS: SERTRALINE HCL 100 MG TABLET PO SCH (09:32)
[2019-06-24] MEDS: allopurinoL 100 MG TAB PO SCH (09:33)
[2019-06-24] MEDS: TRIAMCINOLONE ACET 0.025% CR 15 GM TUBE EXT PRN (09:38)
--- NOTE | 2019-06-24 11:05 | Discharge Summary ---
Date of Service June 24, 2019 Principal Diagnosis Pt feels much better today. She is ready to go home. Bandaging was changed this AM and she states that there is no redness or swelling at all. She has no pain to the area at this point either. Eating without issue. Pt denies fever, SOB, chest pain, abd pain, n/v/c/d. Called by nursing just prior to pt d/c. She was transferring to wheelchair for d/c and misjudged positioning leading to a fall to the ground onto her knees. Some pain to b/l LE and nursing reports a superficial abrasion. Pt states no pain out of proportion to fall and still planning for d/c. Discharge Exam Constitutional WD/WN, vitals as above Eyes normal visual razo by confrontation and + anicteric sclerae Neck normal visual inspection and trachea midline Respiratory normal respiratory effort, lungs clear to auscultation Cardiovascular Rate/Rhythm: regular rate and regular rhythm Gastrointestinal (Abdomen) Inspection/Auscultation: abdomen not distended Percussion/Palpation: abdomen soft; abdomen nontender Musculoskeletal Head/Neck/Chest: normocephalic and head atraumatic neg LE edema Skin Bandaging in place, clean and dry. No redness seen around bandage. Neurologic awake; not confused Speech / Cognition: normal speech Psychiatric A+Ox3, euthymic affect Discharge Data Allergies Allergy/AdvReac Type Severity Reaction Status Date / Time Corticosteroids Allergy Intermediate RASH Verified 06/16/19 19:43 (Glucocorticoids) morphine Allergy Intermediate MOUTH Verified 06/16/19 19:43 SWELLS/FACE SWELLS orange Allergy Intermediate HIVES Verified 06/16/19 19:43 Penicillins Allergy Intermediate RASH/HIVES Verified 06/16/19 19:43 prednisone Allergy Intermediate RED RASH Verified 06/16/19 19:43 pregabalin Allergy Intermediate GOOFY Verified 06/16/19 19:43 zolpidem Allergy Intermediate UNSURE Verified 06/16/19 19:43 orange (food color) Allergy Mild rash Verified 06/16/19 19:43 Consultations 06/16/19 19:31 ED Decision to Admit Stat 06/20/19 10:21 Consult Wound Care Provider Routine Hospital Course (1) Cellulitis of right lower leg: Failed outpatient treatment with prophylactic Keflex and Clindamycin Complicated by underlying lymphedema since nasal MRSA is neg and clinically not susp for MRSA, stopped Vanco IV Cefazolin.Even though she was on Keflex prophylactically, the tissue penetration of Cefazolin is far superior to oral Keflex Wound care, consulted Dr. Betts, bedside debridement on 06/20 US guided IV placed on 06/22 and working well HHN in place to deliver abx and equipment. Pt has had outpt IV abx in the past and is able to manage this with help from her family Last day of abx 06/30 Advised f/u with [facility] early next week, pt prefers to arrange herself (2) CKD (chronic kidney disease) stage 3, GFR 30-59 ml/min: Will monitor renal function. Avoid nephrotoxic agents eGFR=52 (3) Hypertension: Continue Bystolic, bumetanide, and amiloride. (4) Hyperlipidemia: Continue atorvastatin (5) Depression with anxiety: Continue aripiprazole in am, and Seroquel at night Continue bupropion, buspirone, Cymbalta, sertraline, trazodone, and nortriptyline. (6) Gout: Continue allopurinol (7) Acid reflux: Continue Protonix and Pepcid. (8) History of CVA (cerebrovascular accident): Continue Plavix and aspirin (9) Asthma: Continue Advair diskus, prn albuterol nebs, and montelukast. (10) Lumbar spinal stenosis: Continue gabapentin, methocarbamol prn, and oxycodone prn. (11) Morbid obesity with BMI of 50.0-59.9, adult: BMI=54.5 would benefit from intermediate weight loss measures (12) Hypokalemia: due to diuretics replete and monitor (13) ANDRZEJ (obstructive sleep apnea): Continue BIPAP HS (14) DVT prophylaxis: sq [facility] triamcinolone cream to chest wall rash Total Time Total Time Spent Total Time Spent (In Minutes): >30 Total Time Includes: Examination of the Patient, Discharge Planning, Medication Reconciliation, 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 With Other Providers and Other Discharge Plan Discharge Items Patient Disposition: Home - Home Health Services Reason For Visit: CELLULITIS R LEG Discharge Diagnosis: Right leg cellulitis Activity: Resume your previous activity Non-emergency contact: Primary Care Provider Call non-emergency contact if: you have any medication questions, your symptoms worsen and your pain is not controlled Follow-up/Referrals: Etelvina Cazares, [Primary Care Provider] - (1-2 weeks We will call you on wednesday with the date and time of your follow up appointment.) Diet: Low Sodium (2gm) Addtl Attending Provider Instructions: Home Health Nursing will meet you at your home around 5:00pm today. Please let them know if you will not be home at that time. They will be dropping off your supplies and teaching you and your family how to use them, so it is important that you are home when they arrive. You should be seen by your [facility] in [place] next week, preferably by Wednesday or Wednesday. Pending Studies at Discharge: No Stand-Alone Forms: [facility], Smoking Cessation Medications and DC Order Prescriptions: New cefazolin in 0.9% sod chloride 2 gram/100 mL solution 2 gm IV Q8H 6 Days Qty: 1800 RF: 0 Continued fluticasone propion-salmeterol [Advair Diskus] 250-50 mcg/dose blister with device 1 inh INHALATION Q12H PRN (Reason: Shortness Of Breath) Qty: 60 RF: 5 albuterol sulfate [Ventolin HFA] 90 mcg/actuation HFA aerosol inhaler 2 puff INHALATION Q4H PRN (Reason: Shortness Of Breath Or Wheezing) Qty: 18 RF: 2 amiloride 5 mg tablet 5 mg PO QAM Qty: 30 RF: 4 bisoprolol fumarate 5 mg tablet 5 mg PO QAM Qty: 30 RF: 5 bupropion HCl 300 mg tablet extended release 24 hr 300 mg PO QAM Qty: 30 RF: 5 famotidine 20 mg tablet 20 mg PO QAM Qty: 30 RF: 0 bumetanide 2 mg tablet 2 mg PO .COMPLEX Qty: 45 RF: 5 pantoprazole 40 mg tablet,delayed release (DR/EC) 40 mg PO QAM Qty: 30 RF: 5 nortriptyline 50 mg capsule 150 mg PO HS Qty: 90 RF: 4 atorvastatin 40 mg tablet 40 mg PO DAILY Qty: 90 RF: 1 clopidogrel [Plavix] 75 mg tablet 75 mg PO DAILY Qty: 90 RF: 1 oxycodone 5 mg tablet 5 mg PO Q6H PRN (Reason: pain) Qty: 90 RF: 0 allopurinol 100 mg tablet 100 mg PO BID Qty: 180 RF: 2 metoclopramide HCl 5 mg tablet 5 mg PO QID PRN (Reason: acid reflux) RF: 0 aripiprazole [Abilify] 2 mg tablet 2 mg PO DAILY RF: 0 trazodone 150 mg tablet 150 mg PO HS RF: 0 sertraline 100 mg tablet 200 mg PO DAILY RF: 0 duloxetine 30 mg capsule,delayed release(DR/EC) 30 mg PO QAM Qty: 90 RF: 1 (DME) compress.stocking,knee,reg,med misc See Dose Instructions .ROUTE .MEDSUPPLY Qty: 2 RF: 0 acetaminophen 500 mg tablet 500 mg PO Q4H PRN (Reason: fever or pain) Qty: 30 RF: 0 aspirin [Aspir-81] 81 mg tablet,delayed release (DR/EC) 81 mg PO QAM Qty: 30 RF: 0 buspirone 15 mg tablet 15 mg PO TID Qty: 30 RF: 0 calcium carbonate 300 mg (750 mg) tablet,chewable 900 mg PO DAILY PRN (Reason: dyspepsia) Qty: 30 RF: 0 fluticasone propionate 50 mcg/actuation spray,suspension 2 sprays intranasal DAILY Qty: 9.9 RF: 3 gabapentin 300 mg capsule 300 mg PO TID Qty: 90 RF: 3 quetiapine 400 mg tablet 400 mg PO HS Qty: 30 RF: 0 multivitamin tablet 1 tab PO QAM Qty: 30 RF: 0 montelukast 10 mg tablet 10 mg PO PM Qty: 30 RF: 0 methocarbamol 500 mg tablet See Patient Comments mg PO TID PRN (Reason: Chronic Back Pain) Qty: 90 RF: 0 cyanocobalamin (vitamin B-12) [Vitamin B-12] 1,000 mcg tablet 1,000 mcg PO DAILY Qty: 30 RF: 0 cholecalciferol (vitamin D3) [Vitamin D3] 2,000 unit capsule 2,000 unit PO TID Qty: 30 RF: 0 Discontinued cephalexin [Keflex] 500 mg capsule 500 mg PO Q12H Qty: 60 RF: 5 clindamycin HCl 300 mg Capsule 300 mg PO QID RF: 0 Discharge Orders: Discharge Order (Routine); Ordered 06/24/19 Ordered By: Paulina Uriarte/Other Patient Handouts: Cellulitis Dc Admission Data Admit Date/Time: 06/16/19 20:22 Attending Provider: Paulina Mckinney Admit Provider: Horace Cortez Primary Care Provider: Etelvina Cazares Other Providers: Horace Cortez ; Charlie Betts Other Interventions: Discharge Summary Assessment (RN) Last Done: 06/24/19 12:37 DC Date/Time DO NOT enter until pt leaves facility: 06/24/19 13:41 Coding Level of Care Code D/C Day Management >30 mins Diagnoses Cellulitis of right lower leg L03.115 CKD (chronic kidney disease) stage 3, GFR 30-59 ml/min N18.3 Hypertension I10 Hyperlipidemia E78.5 Depression with anxiety F41.8 Gout [id number] Chronicity: chronic Gout etiology: unspecified cause Gout site: unspecified site Presence of tophus: without tophus Acid reflux K21.9 History of CVA (cerebrovascular accident) Z86.73 Asthma J45.30 Asthma complication type: uncomplicated Asthma persistence: persistent Asthma severity: mild Lumbar spinal stenosis M48.061 Morbid obesity with BMI of 50.0-59.9, adult E66.01; Z68.43 Hypokalemia E87.6 ANDRZEJ (obstructive sleep apnea) G47.33 DVT prophylaxis Z29.9
== END 2019-06-24 13:41 | disposition home health service (06) | DRG 603 ==
LOC: ED 16:20 → SUATTDRO 20:22 → 2W 20:22 → 3N 06-19 11:31

== ENCOUNTER 2020-10-24 17:28 | Inpatient (IN) ==
--- NOTE | 2020-10-24 19:07 | Emergency Department Note ---
Impression & Plan Recurrent cellulitis of lower leg, CKD (chronic kidney disease) stage 3, GFR 30-59 ml/min, Bilateral lower extremity edema ED Provider Note Provider: Dougie Martinez MD DATE OF SERVICE: 10/24/2020 CHIEF COMPLAINT: Leg swelling and pain HISTORY OF PRESENT ILLNESS: Patient is a 60-year-old female history of CKD, CVA, hypertension, lymphedema presenting here today referred by her primary doctor due to persistent refractory lower extremity swelling. Patient reports she had history of cellulitis here treated at [facility] several times. Has had multiple courses of Keflex and doxycycline per her report without improvement. States the left leg is worse than the right but both are painful and left in particular is been having some clear drainage. Denies fever or chills. Denies any numbness or tingling in the legs. Patient denies any other rashes or systemic symptoms. Patient denies any trauma. Patient referred by her doctor today she states for likely admission given her failed outpatient treatment. Patient does report that she has some difficulty ambulating due to h er legs and at times gets a bit short of breath. No chest pain reported. REVIEW OF SYSTEMS: A total of 10 review of systems was obtained and negative except as stated above in the HPI. PAST MEDICAL HISTORY: As noted above MEDICATIONS: Reviewed home medication list SOCIAL HISTORY: Smoker, lives at home PHYSICAL EXAM: GENERAL: alert and oriented in no acute distress on stretcher Head: normocephalic and atraumatic EYES: No injection, discharge or icterus. NECK: Trachea midline. Supple. ENT: Mucous membranes pink and moist. LUNGS: Airway patent. No retractions. Breath sounds clear but diminished bases HEART: Regular rate and rhythm. No chest wall tenderness ABDOMEN: Soft and non-tender, without guarding or rebound. SKIN: Acyanotic, warm, dry except for the lower extremities as delineated below EXTREMITIES: Bilateral lower extremities with some 1-2+ edema slightly left greater than right. Left greater than right erythema of the feet to mid calves. No posterior calf tenderness. No fluctuance noted. A few healing abrasions on the right coles are appreciated without crepitus or fluctuance. Several areas of weeping serous fluid from the left leg noted. NEUROLOGICAL: No focal deficits. No aphasia. No facial droop or slurred speech. Ambulatory with some assistance from wheelchair Patient's laboratory studies and imaging reviewed. Differential includes Cellulitis, abscess, MRSA infection, DVT, necrotizing fasciitis, dermatitis, drug eruption, allergic reaction, as well as other pathologies. IMPRESSION/MEDICAL DECISION MAKING: Patient presents referred by her doctor for concerns for worsening leg swelling/lymphedema/cellulitis. Patient does not appear septic. Low suspicion given the bilateral nature that this is DVT. Likely combination of her lymphedema possibly infectious but they are quite erythematous on exam. Doubt necrotizing fasciitis. Has been ongoing and failed outpatient treat with antibiotics per her report. Patient does report some slight shortness of breath with ambulation but she does have a somewhat large BMI likely contributing. Not hypoxic or tachycardic. Low suspicion given this and the exam for acute PE. EKG and chest x-ray completed look for possible fluid overload such as CHF although no significant history. Chest x-ray not impressive for this per my review and radiology results. No history of diabetes reported. No significant leukocytosis and renal function appears at baseline with CKD. Given her complaints with the bilateral nature of her legs and some swelling skin culture was taken from the left leg and we will start her on daptomycin. Discussed with the hospitalist further care here at the hospital. The patient was in agreement with this plan. DIAGNOSIS: Lower extremity cellulitis recurrent, lower extremity edema, CKD DISPOSITION: Hospitalist will evaluate Patient was agreeable with this plan. 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- DISCOVERED WITH INCIDENTAL IMAGING Degenerative joint disease, shoulder, right Depression with anxiety Gout History of CVA (cerebrovascular accident) Hyperlipidemia Hypertension Left leg weakness Lumbar spinal stenosis Lymphedema MRSA (methicillin resistant staph aureus) culture positive Other ovarian cyst, left side Peripheral neuropathy Prediabetes Recurrent cellulitis of lower leg TIA (transient ischemic attack) 2017- ON PLAVIX Vitamin D deficiency Surgical History H/O total knee replacement B/L H/O ventral hernia repair History of appendectomy History of carpal tunnel release B/L History of cholecystectomy S/P tonsillectomy and adenoidectomy Status post total shoulder arthroplasty (10/17/18) R Family History Mother Diabetes Gallbladder disease Hypertension Coronary heart disease Myocardial infarction S/P CABG x 3 Sister Hodgkins lymphoma Brother Kidney disease Grandmother Breast cancer Aunt Ovarian cancer Father Peripheral vascular disease Daughter Diabetes Other Cancer Denies family history of Prostate cancer Colorectal cancer Social History Smoking Status: Never smoker Age Started Using Tobacco: 22; Age Quit Using Tobacco: 24; Years Smoked: 2; Second Hand Exposure: No; Hx Alcohol Use: No Hx Substance Use: No Preferred Language: Frisian 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 Ability: Effective Visual Impairment: Limited Hearing Ability: Normal Detention Attendant Required: No Beliefs That Will Affect Care: None marital status details: ; lives with parents & 1 daughter Current Living Situation: Family Current Living Situation Comment: Lives in [place] current occupational status: disabled other: 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 [employer]; 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 Feels Safe at Home: Yes Childhood Exposure to Second-Hand Smoke: No caffeine: Yes Dental Care, Regularly: No Physical Activity Frequency: Does not Exercise Seatbelt Use: always Sunscreen Use: Yes Assistive Devices: Walker Allergies Allergies Allergy/AdvReac Type Severity Reaction Status Date / Time Corticosteroids Allergy Intermediate RASH Verified 10/24/20 15:00 (Glucocorticoids) morphine Allergy Intermediate MOUTH Verified 10/24/20 15:00 SWELLS/FACE SWELLS orange Allergy Intermediate HIVES Verified 10/24/20 15:00 Penicillins Allergy Intermediate RASH/HIVES Verified 10/24/20 15:00 prednisone Allergy Intermediate RED RASH Verified 10/24/20 15:00 pregabalin Allergy Intermediate GOOFY Verified 10/24/20 15:00 zolpidem Allergy Intermediate UNSURE Verified 10/24/20 15:00 orange (food color) Allergy Mild rash Verified 10/24/20 15:00 Home Meds Home Medications Medication Instructions Recorded Confirmed metoclopramide HCl 5 mg tablet 5 mg PO QID PRN tab 01/31/19 10/24/20 trazodone 150 mg tablet 150 mg PO HS tab 01/31/19 10/24/20 acetaminophen 1,000 mg PO Q4H PRN 10/24/20 10/24/20 Previous Rx's Medication Instructions Recorded bupropion HCl 300 mg 24 hr tablet, 300 mg PO QAM #30 tab 11/03/18 extended release aspirin 81 mg tablet,delayed 81 mg PO QAM #30 tab 11/09/18 release buspirone 15 mg tablet 15 mg PO TID #30 tab 11/09/18 calcium carbonate 300 mg (750 mg) 900 mg PO DAILY PRN #30 tab 11/09/18 chewable tablet cholecalciferol (vitamin D3) 50 2,000 unit PO TID #30 cap 11/09/18 mcg (2,000 unit) capsule multivitamin 1 tab PO QAM #30 tab 11/09/18 quetiapine 400 mg tablet 400 mg PO HS #30 tab 11/09/18 aripiprazole 2 mg tablet 2 mg PO DAILY #90 tab 02/20/20 allopurinol 100 mg tablet 100 mg PO BID #180 tab 02/21/20 albuterol sulfate 2.5 mg/0.5 mL 5 mg INHALATION QID PRN #30 ea 03/01/20 solution for nebulization pantoprazole 40 mg tablet,delayed 40 mg PO QAM #30 tab 05/16/20 release atorvastatin 40 mg tablet 40 mg PO DAILY #90 tab 05/21/20 clopidogrel 75 mg tablet 75 mg PO DAILY #90 tab 05/21/20 furosemide 20 mg tablet See Rx Instructions .ROUTE 06/10/20 .COMPLEX #90 tab famotidine 20 mg tablet 20 mg PO QAM #90 tab 06/20/20 nortriptyline 50 mg capsule 150 mg PO HS #90 cap 06/20/20 gabapentin 300 mg capsule 300 mg PO TID #90 cap 07/03/20 amiloride 5 mg tablet 5 mg PO DAILY #90 tab 07/22/20 duloxetine 30 mg capsule,delayed 30 mg PO QAM #90 cap 07/22/20 release bisoprolol fumarate 5 mg tablet 5 mg PO DAILY #90 tab 08/19/20 cyanocobalamin (vitamin B-12) 1,000 mcg PO DAILY #30 tab 09/25/20 1,000 mcg tablet sertraline 100 mg tablet 200 mg PO DAILY #180 tab 10/02/20 albuterol sulfate 90 mcg/actuation 2 puff INHALATION Q4H PRN #18 gm 06/03/21 aerosol inhaler montelukast 10 mg tablet 10 mg PO PM #30 tab 10/17/20 Results & Data (ED) Vital Signs Vital Signs - 24 hr 10/24/20 17:49 10/24/20 19:47 10/24/20 20:00 Temperature 36.8 C Temperature Source Oral Pulse Rate 81 75 Pulse Rate from SpO2 Sensor 75 73 Respiratory Rate 18 15 Blood Pressure 138/61 144/71 H 148/70 H Blood Pressure Mean 86 95 96 Pulse Oximetry 94 97 96 Oxygen Delivery Method Room Air Sepsis Recent Fever Within 48 Hours No Sepsis New/Unexplained Change in Mental Status No Sepsis Action Taken by Nursing No Action Required 10/24/20 20:30 10/24/20 21:00 10/24/20 21:31 Temperature Temperature Source Pulse Rate 75 75 71 Pulse Rate from SpO2 Sensor 76 Respiratory Rate 23 21 18 Blood Pressure 141/93 H 163/94 H 148/62 H Blood Pressure Mean 109 117 90 Pulse Oximetry 97 Oxygen Delivery Method Sepsis Recent Fever Within 48 Hours Sepsis New/Unexplained Change in Mental Status Sepsis Action Taken by Nursing 10/24/20 22:01 10/24/20 22:30 10/24/20 23:00 Temperature Temperature Source Pulse Rate 68 67 71 Pulse Rate from SpO2 Sensor Respiratory Rate 19 20 18 Blood Pressure 120/92 144/94 H 134/86 Blood Pressure Mean 101 110 102 Pulse Oximetry Oxygen Delivery Method Sepsis Recent Fever Within 48 Hours Sepsis New/Unexplained Change in Mental Status Sepsis Action Taken by Nursing Laboratory Data Result diagrams: 10/24/20 19:34 10/24/20 19:34 Lab Results 10/24/20 10/24/20 10/24/20 Range/Units 19:00 19:00 19:34 WBC 8.85 (4.8-10.8) K/uL RBC 4.29 (4.2-5.4) M/uL Hgb 11.1 L (12.0-16.0) g/dL Hct 35.8 L (37-47) % MCV 83.4 (80-100) fL MCH 25.9 (25-34) pg MCHC 31.0 L (32-36) g/dL RDW Std Deviation 51.4 H (36.4-46.3) fL RDW Coeff of Cleo 16.8 H (11.5-14.5) % Plt Count 249 (130-400) K/uL MPV 9.6 (7.4-10.4) fL Immature Gran % (Auto) 0.1 % Neut % (Auto) 65.3 % Lymph % (Auto) 24.4 % Walton % (Auto) 7.5 % Eos % (Auto) 2.6 % Baso % (Auto) 0.1 % Neut # (Auto) 5.78 (1.4-6.5) K/uL Lymph # (Auto) 2.16 (1.2-3.4) K/uL Walton # (Auto) 0.66 H (0.11-0.59) K/uL Eos # (Auto) 0.23 (0-0.5) K/uL Baso # (Auto) 0.01 (0-0.2) K/uL Immature Gran # (Auto) 0.01 (0.00-0.02) K/uL ESR (0-30) mm/hr Sodium (136-145) mmol/L Potassium (3.5-5.1) mmol/L Chloride (98-107) mmol/L Carbon Dioxide (21-32) mmol/L Anion Gap (3-11) BUN (7-18) mg/dl Creatinine (0.6-1.2) mg/dl Est Cr Clr Drug Dosing ml/min Est GFR ( Amer) ml/min Est GFR (Non-Af Amer) ml/min BUN/Creatinine Ratio (10-20) Glucose (70-99) mg/dl Calcium (8.5-10.1) mg/dl Total Bilirubin (0.2-1) mg/dl AST (15-37) U/L ALT (12-78) U/L Alkaline Phosphatase (45-117) U/L Troponin I (0-0.045) ng/ml C-Reactive Protein (0-0.29) mg/dl NT-Pro-B Natriuret Pep (0-900) pg/ml Total Protein (6.4-8.2) gm/dl Albumin (3.4-5.0) gm/dl Globulin (2.5-4.0) gm/dl Albumin/Globulin Ratio (0.9-2) COVID-19 Eval Order Covid19 at [facility] SARS-CoV-2 (PCR) NEGATIVE (Negative) 10/24/20 10/24/20 Range/Units 19:34 19:34 WBC (4.8-10.8) K/uL RBC (4.2-5.4) M/uL Hgb (12.0-16.0) g/dL Hct (37-47) % MCV (80-100) fL MCH (25-34) pg MCHC (32-36) g/dL RDW Std Deviation (36.4-46.3) fL RDW Coeff of Cleo (11.5-14.5) % Plt Count (130-400) K/uL MPV (7.4-10.4) fL Immature Gran % (Auto) % Neut % (Auto) % Lymph % (Auto) % Walton % (Auto) % Eos % (Auto) % Baso % (Auto) % Neut # (Auto) (1.4-6.5) K/uL Lymph # (Auto) (1.2-3.4) K/uL Walton # (Auto) (0.11-0.59) K/uL Eos # (Auto) (0-0.5) K/uL Baso # (Auto) (0-0.2) K/uL Immature Gran # (Auto) (0.00-0.02) K/uL ESR 48 H (0-30) mm/hr Sodium 140 (136-145) mmol/L Potassium 3.7 (3.5-5.1) mmol/L Chloride 105 (98-107) mmol/L Carbon Dioxide 31 (21-32) mmol/L Anion Gap 5.0 (3-11) BUN 15 (7-18) mg/dl Creatinine 1.42 H (0.6-1.2) mg/dl Est Cr Clr Drug Dosing 87.6 ml/min Est GFR ( Amer) 47.1 ml/min Est GFR (Non-Af Amer) 40.6 ml/min BUN/Creatinine Ratio 10.4 (10-20) Glucose 107 H (70-99) mg/dl Calcium 8.5 (8.5-10.1) mg/dl Total Bilirubin 0.4 (0.2-1) mg/dl AST 15 (15-37) U/L ALT 26 (12-78) U/L Alkaline Phosphatase 104 (45-117) U/L Troponin I < 0.015 (0-0.045) ng/ml C-Reactive Protein 2.73 H (0-0.29) mg/dl NT-Pro-B Natriuret Pep 92 (0-900) pg/ml Total Protein 6.9 (6.4-8.2) gm/dl Albumin 3.3 L (3.4-5.0) gm/dl Globulin 3.6 (2.5-4.0) gm/dl Albumin/Globulin Ratio 0.9 (0.9-2) COVID-19 Eval Order SARS-CoV-2 (PCR) (Negative) Administered Medications Miscellaneous Information (Daptomycin Consult Active) 1 ea N/A UD PRN PRN Reason: Consult Stop: 11/23/20 20:03 Last Admin: 10/24/20 21:23 Dose: 1 ea Documented by: [id number] Discontinued Medications Daptomycin 525 mg/ Syringe 10.5 mls @ 5.25 mls/min IV NOW ONE; Protocol Stop: 10/24/20 20:05 Last Admin: 10/24/20 21:14 Dose: 5.25 mls/min Documented by: [id number] Imaging Data Radiologist's Impression: Chest X-Ray 10/24/20 19:19 XR chest 1V portable CLINICAL HISTORY: leg swelling COMPARISON STUDY: 06/16/2019 FINDINGS: The cardiac and mediastinal contours remain stable. There is no evidence of failure. There is no focal pulmonary consolidation. There are no pleural effusions. There are postsurgical changes of a reverse total right shoulder arthroplasty.[ IMPRESSION: No active disease in the chest. ACT 112: Negative or not required by law. Electronically signed by: Parish Ramesh M.D. 10/24/2020 8:08 PM Discharge Plan Visit Data Chief Complaint: Infection Stated Complaint: SENT BY / HOOD ED Provider: Dougie Martinez Discharge Problem: Recurrent cellulitis of lower leg, CKD (chronic kidney disease) stage 3, GFR 30-59 ml/min, Bilateral lower extremity edema Patient Disposition: Being Evaluated by Hospitalist Forms Stand Alone Forms: My [facility] Prescriptions Prescriptions: No Action bupropion HCl 300 mg tablet extended release 24 hr 300 mg PO QAM Qty: 30 RF: 5 allopurinol 100 mg tablet 100 mg PO BID Qty: 180 RF: 2 albuterol sulfate 2.5 mg/0.5 mL solution for nebulization 5 mg inhalation QID PRN (Reason: shortness of breath or wheezing) Qty: 30 RF: 1 pantoprazole 40 mg tablet,delayed release (DR/EC) 40 mg PO QAM Qty: 30 RF: 5 atorvastatin 40 mg tablet 40 mg PO DAILY Qty: 90 RF: 1 clopidogrel [Plavix] 75 mg tablet 75 mg PO DAILY Qty: 90 RF: 1 furosemide [Lasix] 20 mg tablet See Rx Instructions .ROUTE .COMPLEX Qty: 90 RF: 3 gabapentin 300 mg capsule 300 mg PO TID Qty: 90 RF: 3 amiloride 5 mg tablet 5 mg PO DAILY Qty: 90 RF: 1 duloxetine 30 mg capsule,delayed release(DR/EC) 30 mg PO QAM Qty: 90 RF: 1 bisoprolol fumarate 5 mg tablet 5 mg PO DAILY Qty: 90 RF: 1 cyanocobalamin (vitamin B-12) [Vitamin B-12] 1,000 mcg tablet 1,000 mcg PO DAILY Qty: 30 RF: 0 sertraline 100 mg tablet 200 mg PO DAILY Qty: 180 RF: 1 metoclopramide HCl 5 mg tablet 5 mg PO QID PRN (Reason: acid reflux) RF: 0 trazodone 150 mg tablet 150 mg PO HS RF: 0 aspirin [Aspir-81] 81 mg tablet,delayed release (DR/EC) 81 mg PO QAM Qty: 30 RF: 0 buspirone 15 mg tablet 15 mg PO TID Qty: 30 RF: 0 calcium carbonate 300 mg (750 mg) tablet,chewable 900 mg PO DAILY PRN (Reason: dyspepsia) Qty: 30 RF: 0 quetiapine 400 mg tablet 400 mg PO HS Qty: 30 RF: 0 multivitamin tablet 1 tab PO QAM Qty: 30 RF: 0 cholecalciferol (vitamin D3) [Vitamin D3] 2,000 unit capsule 2,000 unit PO TID Qty: 30 RF: 0 aripiprazole [Abilify] 2 mg tablet 2 mg PO DAILY Qty: 90 RF: 1 famotidine 20 mg tablet 20 mg PO QAM Qty: 90 RF: 1 nortriptyline 50 mg capsule 150 mg PO HS Qty: 90 RF: 3 albuterol sulfate [Ventolin HFA] 90 mcg/actuation HFA aerosol inhaler 2 puff INHALATION Q4H PRN (Reason: Shortness Of Breath Or Wheezing) Qty: 18 RF: 2 montelukast 10 mg tablet 10 mg PO PM Qty: 30 RF: 0 acetaminophen 500 mg tablet 1,000 mg PO Q4H PRN (Reason: fever or pain) RF: 0 Referrals Referrals: Etelvina Cazares DO [Primary Care Provider] - Discharge Problem: CKD (chronic kidney disease) stage 3, GFR 30-59 ml/min Qualifiers: Chronic kidney disease stage 3 subtype: stage 3b (GFR 30-44) Qualified Code(s): N18.32 - Chronic kidney disease, stage 3b
[2020-10-24 19:43] LABS: Basophils # (auto) 0.01 K/uL (0-0.2); Basophils % (auto) 0.1 %; Eosinophils # (auto) 0.23 K/uL (0-0.5); Eosinophils % (auto) 2.6 %; Hematocrit (blood only) 35.8 % (37-47); Hemoglobin 11.1 g/dL (12.0-16.0); Immature Granulocytes # (auto) 0.01 K/uL (0.00-0.02); Immature Granulocytes % (auto) 0.1 %; Lymphocytes # (auto) 2.16 K/uL (1.2-3.4); Lymphocytes % (auto) 24.4 %; Mean Corpuscular Hemoglobin 25.9 pg (25-34); Mean Corpuscular Volume 83.4 fL (80-100); Mean Platelet Volume 9.6 fL (7.4-10.4); Monocytes # (auto) 0.66 K/uL (0.11-0.59); Monocytes % (auto) 7.5 %; Neutrophils # (auto) 5.78 K/uL (1.4-6.5); Neutrophils % (auto) 65.3 %; Platelet Count 249 K/uL (130-400); RDW Coefficient of Variation 16.8 % (11.5-14.5); RDW Standard Deviation 51.4 fL (36.4-46.3); Red Blood Count 4.29 M/uL (4.2-5.4); White Blood Count 8.85 K/uL (4.8-10.8)
[2020-10-24 20:00] LABS: Alanine Aminotransferase 26 U/L (12-78); Albumin Level 3.3 gm/dl (3.4-5.0); Aspartate Aminotransferase 15 U/L (15-37); BUN Creatinine Ratio 10.4 (10-20); Blood Urea Nitrogen 15 mg/dl (7-18); C Reactive Protein 2.73 mg/dl (0-0.29); Calcium 8.5 mg/dl (8.5-10.1); Carbon Dioxide 31 mmol/L (21-32); Chloride 105 mmol/L (98-107); Creatinine Clr Calc Pharmacy 87.6 ml/min; Est GFR (African American) 47.1 ml/min; Est GFR (Non-African American) 40.6 ml/min; Glucose 107 mg/dl (70-99); Potassium 3.7 mmol/L (3.5-5.1); Sodium 140 mmol/L (136-145)
[2020-10-24] MEDS ORDERED: DAPTOmycin 525 MG in SYRINGE 0 ML IV ONE (20:04)
[2020-10-24 20:05] LABS: Albumin Globulin Ratio 0.9 (0.9-2); Alkaline Phosphatase 104 U/L (45-117); Bilirubin,Total 0.4 mg/dl (0.2-1); Globulin 3.6 gm/dl (2.5-4.0); NT Pro B Type Natriuretic Pept 92 pg/ml (0-900); Total Protein 6.9 gm/dl (6.4-8.2); Troponin I < 0.015 ng/ml (0-0.045)
--- NOTE | 2020-10-24 20:09 | XRay Report ---
XR chest 1V portable CLINICAL HISTORY: leg swelling COMPARISON STUDY: 06/16/2019 FINDINGS: The cardiac and mediastinal contours remain stable. There is no evidence of failure. There is no focal pulmonary consolidation. There are no pleural effusions. There are postsurgical changes o f a reverse total right shoulder arthroplasty.[ IMPRESSION: No active disease in the chest. ACT 112: Negative or not required by law. Electronically signed by: Parish Ramesh M.D. 10/24/2020 8:08 PM
--- NOTE | 2020-10-24 22:37 | History & Physical Report ---
Date of Service October 24, 2020 Assessment & Plan (1) Cellulitis: Kriss Tristan is a 60-year-old female with past medical history significant for hypertension, hyperlipidemia, prediabetes, history of CVA, recurrent cellulitis, current bilateral lower extremity edema, and asthma; who presents for concerns of worsening lower extremity edema and concerns for cellulitis. Cellulitis left lower extremity: -In the ED was started on daptomycin given concerns for erythematous changes to lower extremity -Elevated CRP, elevated ESR; negative WBC -XR ankle not demonstrating any acute erosions or bony changes -Continue daptomycin at this time, do not think this represents a diabetic foot infection at this time given relatively well-controlled blood sugars -Concern for potential osteomyelitis given difficulty with ambulation and elevated ESR and CRP -Unfortunately due to weight patient is unable to undergo MRI and current CT scan with weight allowance unavailable at this time -Will order CT left lower extremity for potential examination of osteomyelitis concerns Bilateral lower extremity edema: -Notable history of lymphedema requiring multiple neuropathic pain medications and diuretics -Ultrasound duplex of left lower extremity negative for DVT Prediabetes: -Last A1c 6.1 in June 2020 -Recheck A1c in a.m. Hypertension -Continue home regimen Hyperlipidemia: -Continue home regimen Chronic kidney disease stage III: -Baseline creatinine appears to be 1.4 over the last year -No acute change noted on BMP we will continue to monitor in the setting of antibiotic usage Peripheral neuropathy: -Continue home pain management regimen Asthma/COPD: -Consideration of PFTs as outpatient given patient's significant smoking history -Continue albuterol nebs as needed for wheeze/shortness of breath Diet: Heart healthy, carb consistent CODE STATUS: Full code DVT prophylaxis: Heparin (2) Bilateral lower extremity edema: (3) Prediabetes: (4) Hypertension: (5) Hyperlipidemia: (6) CKD (chronic kidney disease) stage 3, GFR 30-59 ml/min: (7) Peripheral neuropathy: (8) Depression with anxiety: (9) Asthma: History of Present Illness Primary Care Provider: Etelvina Cazares DO Kriss Tristan is a 60-year-old female with past medical history significant for hypertension, hyperlipidemia, prediabetes, history of CVA, recurrent cellulitis, current bilateral lower extremity edema, and asthma; who presents for concerns of worsening lower extremity edema and concerns for cellulitis. Over the last 2 months patient has noticed that she is having increasing swelling and difficulty with walking both of her legs. However additionally notes that this has worsened over the last week with her left leg being more swollen than her right also noticing more redness and tenderness to touch over that leg. Noticed that it probably started around her ankle and that has progressed up towards her knee at this point time. Has had increasing difficulty with walking around over this time as she had pain in her left heel, this was new from her normal pains that she experiences on a regular basis as a result of her edema. Endorses that she typically has some redness over her air shins but this is more due to her lymphedema than anything. Denies fevers, chills, sweats, nausea, vomiting, abdominal pain, shortness of breath, wheeze, chest pain, palpitations, lightheadedness. Allergies Allergy/AdvReac Type Severity Reaction Status Date / Time Corticosteroids Allergy Intermediate RASH Verified 10/24/20 15:00 (Glucocorticoids) morphine Allergy Intermediate MOUTH Verified 10/24/20 15:00 SWELLS/FACE SWELLS orange Allergy Intermediate HIVES Verified 10/24/20 15:00 Penicillins Allergy Intermediate RASH/HIVES Verified 10/24/20 15:00 prednisone Allergy Intermediate RED RASH Verified 10/24/20 15:00 pregabalin Allergy Intermediate GOOFY Verified 10/24/20 15:00 zolpidem Allergy Intermediate UNSURE Verified 10/24/20 15:00 orange (food color) Allergy Mild rash Verified 10/24/20 15:00 Home Medications Medication Instructions Recorded Confirmed Type bupropion HCl 300 mg 24 hr tablet, 300 mg PO QAM #30 tab 11/03/18 10/24/20 Rx extended release aspirin 81 mg tablet,delayed 81 mg PO QAM #30 tab 11/09/18 10/24/20 Rx release buspirone 15 mg tablet 15 mg PO TID #30 tab 11/09/18 10/24/20 Rx calcium carbonate 300 mg (750 mg) 900 mg PO DAILY PRN #30 tab 11/09/18 10/24/20 Rx chewable tablet cholecalciferol (vitamin D3) 50 2,000 unit PO TID #30 cap 11/09/18 10/24/20 Rx mcg (2,000 unit) capsule multivitamin 1 tab PO QAM #30 tab 11/09/18 10/24/20 Rx quetiapine 400 mg tablet 400 mg PO HS #30 tab 11/09/18 10/24/20 Rx metoclopramide HCl 5 mg tablet 5 mg PO QID PRN tab 01/31/19 10/24/20 History trazodone 150 mg tablet 150 mg PO HS tab 01/31/19 10/24/20 History aripiprazole 2 mg tablet 2 mg PO DAILY #90 tab 02/20/20 10/24/20 Rx allopurinol 100 mg tablet 100 mg PO BID #180 tab 02/21/20 10/24/20 Rx albuterol sulfate 2.5 mg/0.5 mL 5 mg INHALATION QID PRN #30 ea 03/01/20 10/24/20 Rx solution for nebulization pantoprazole 40 mg tablet,delayed 40 mg PO QAM #30 tab 05/16/20 10/24/20 Rx release atorvastatin 40 mg tablet 40 mg PO DAILY #90 tab 05/21/20 10/24/20 Rx clopidogrel 75 mg tablet 75 mg PO DAILY #90 tab 05/21/20 10/24/20 Rx furosemide 20 mg tablet See Rx Instructions .ROUTE 06/10/20 10/24/20 Rx .COMPLEX #90 tab famotidine 20 mg tablet 20 mg PO QAM #90 tab 06/20/20 10/24/20 Rx nortriptyline 50 mg capsule 150 mg PO HS #90 cap 06/20/20 10/24/20 Rx gabapentin 300 mg capsule 300 mg PO TID #90 cap 07/03/20 10/24/20 Rx amiloride 5 mg tablet 5 mg PO DAILY #90 tab 07/22/20 10/24/20 Rx duloxetine 30 mg capsule,delayed 30 mg PO QAM #90 cap 07/22/20 10/24/20 Rx release bisoprolol fumarate 5 mg tablet 5 mg PO DAILY #90 tab 08/19/20 10/24/20 Rx cyanocobalamin (vitamin B-12) 1,000 mcg PO DAILY #30 tab 09/25/20 10/24/20 Rx 1,000 mcg tablet sertraline 100 mg tablet 200 mg PO DAILY #180 tab 10/02/20 10/24/20 Rx albuterol sulfate 90 mcg/actuation 2 puff INHALATION Q4H PRN #18 gm 10/17/20 10/24/20 Rx aerosol inhaler montelukast 10 mg tablet 10 mg PO PM #30 tab 10/17/20 10/24/20 Rx acetaminophen 1,000 mg PO Q4H PRN 10/24/20 10/24/20 History 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- DISCOVERED WITH INCIDENTAL IMAGING Degenerative joint disease, shoulder, right Depression with anxiety Gout History of CVA (cerebrovascular accident) Hyperlipidemia Hypertension Left leg weakness Lumbar spinal stenosis Lymphedema MRSA (methicillin resistant staph aureus) culture positive Other ovarian cyst, left side Peripheral neuropathy Prediabetes Recurrent cellulitis of lower leg TIA (transient ischemic attack) 2017- ON PLAVIX Vitamin D deficiency Surgical History H/O total knee replacement B/L H/O ventral hernia repair History of appendectomy History of carpal tunnel release B/L History of cholecystectomy S/P tonsillectomy and adenoidectomy Status post total shoulder arthroplasty (10/17/18) R Family History Mother Diabetes Gallbladder disease Hypertension Coronary heart disease Myocardial infarction S/P CABG x 3 Sister Hodgkins lymphoma Brother Kidney disease Grandmother Breast cancer Aunt Ovarian cancer Father Peripheral vascular disease Daughter Diabetes Other Cancer Denies family history of Prostate cancer Colorectal cancer Social History Smoking Status: Former smoker Age Started Using Tobacco: 22; Age Quit Using Tobacco: 24; Years Smoked: 2; Smoking End Date: 20 years ago; Second Hand Exposure: No; Hx Alcohol Use: No Hx Substance Use: No Preferred Language: Mexican 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 Ability: Effective Visual Impairment: Limited Hearing Ability: Normal Sink Maker Required: No Beliefs That Will Affect Care: Religion Religion Beliefs: Jehovah'S Witness marital status details: ; lives with parents & 1 daughter Current Living Situation: Family Current Living Situation Comment: Lives in [place] current occupational status: disabled Other Information That Helps Us Care for You: No other: 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; 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 Feels Safe at Home: Yes Safety Concerns: Feels Safe At This Time Childhood Exposure to Second-Hand Smoke: No caffeine: Yes Dental Care, Regularly: No Physical Activity Frequency: Does not Exercise Seatbelt Use: always Sunscreen Use: Yes Assistive Devices: Denture - Upper and Glasses Review of Systems Review of Systems: All systems reviewed & are unremarkable except as noted in HPI & below Physical Exam Eyes: PERRL, conjunctivae normal, anicteric sclerae Respiratory: normal respiratory effort; no respiratory distress and no labored breathing Auscultation: + wheezes; no crackles, no rales and no rhonchi Cardiovascular: Rate/Rhythm: regular rate and regular rhythm Heart Sounds: no gallop, no murmur and no cardiac rub Vessels: normal peripheral pulses; no JVD Extremities: + calf tenderness and + pedal edema; no varicosities Gastrointestinal (Abdomen): Inspection/Auscultation: normal bowel sounds; abdomen not distended Percussion/Palpation: abdomen soft; abdomen nontender and no guarding Skin: + induration, + skin tightening, + dry skin and + erythema; no wound Neurologic: PERRL, EOMI, accommodation nl, no face palsy, no dysarthria CN's II-XI intact bilaterally and moves all extremities Psychiatric: Orientation: alert and oriented x 3 Results & Data Results & Data ([facility]) Vital Signs (Past 12 Hours) Vital Signs Temp Pulse Resp BP Pulse Ox 10/24/20 17:49 36.8 C 81 18 138/61 94 Laboratory Results 10/24/20 10/24/20 10/24/20 Range/Units 19:34 19:34 19:34 WBC 8.85 (4.8-10.8) K/uL RBC 4.29 (4.2-5.4) M/uL Hgb 11.1 L (12.0-16.0) g/dL Hct 35.8 L (37-47) % MCV 83.4 (80-100) fL MCH 25.9 (25-34) pg MCHC 31.0 L (32-36) g/dL RDW Std Deviation 51.4 H (36.4-46.3) fL RDW Coeff of Cleo 16.8 H (11.5-14.5) % Plt Count 249 (130-400) K/uL MPV 9.6 (7.4-10.4) fL Immature Gran % (Auto) 0.1 % Neut % (Auto) 65.3 % Lymph % (Auto) 24.4 % [place] % (Auto) 7.5 % Eos % (Auto) 2.6 % Baso % (Auto) 0.1 % Neut # (Auto) 5.78 (1.4-6.5) K/uL Lymph # (Auto) 2.16 (1.2-3.4) K/uL [place] # (Auto) 0.66 H (0.11-0.59) K/uL Eos # (Auto) 0.23 (0-0.5) K/uL Baso # (Auto) 0.01 (0-0.2) K/uL Immature Gran # (Auto) 0.01 (0.00-0.02) K/uL ESR 48 H (0-30) mm/hr Sodium 140 (136-145) mmol/L Potassium 3.7 (3.5-5.1) mmol/L Chloride 105 (98-107) mmol/L Carbon Dioxide 31 (21-32) mmol/L Anion Gap 5.0 (3-11) BUN 15 (7-18) mg/dl Creatinine 1.42 H (0.6-1.2) mg/dl Est Cr Clr Drug Dosing 87.6 ml/min Est GFR ( Amer) 47.1 ml/min Est GFR (Non-Af Amer) 40.6 ml/min BUN/Creatinine Ratio 10.4 (10-20) Glucose 107 H (70-99) mg/dl Calcium 8.5 (8.5-10.1) mg/dl Total Bilirubin 0.4 (0.2-1) mg/dl AST 15 (15-37) U/L ALT 26 (12-78) U/L Alkaline Phosphatase 104 (45-117) U/L Troponin I < 0.015 (0-0.045) ng/ml C-Reactive Protein 2.73 H (0-0.29) mg/dl NT-Pro-B Natriuret Pep 92 (0-900) pg/ml Total Protein 6.9 (6.4-8.2) gm/dl Albumin 3.3 L (3.4-5.0) gm/dl Globulin 3.6 (2.5-4.0) gm/dl Albumin/Globulin Ratio 0.9 (0.9-2) COVID-19 Eval Order SARS-CoV-2 (PCR) (Negative) 10/24/20 10/24/20 Range/Units 19:00 19:00 WBC (4.8-10.8) K/uL RBC (4.2-5.4) M/uL Hgb (12.0-16.0) g/dL Hct (37-47) % MCV (80-100) fL MCH (25-34) pg MCHC (32-36) g/dL RDW Std Deviation (36.4-46.3) fL RDW Coeff of Cleo (11.5-14.5) % Plt Count (130-400) K/uL MPV (7.4-10.4) fL Immature Gran % (Auto) % Neut % (Auto) % Lymph % (Auto) % [place] % (Auto) % Eos % (Auto) % Baso % (Auto) % Neut # (Auto) (1.4-6.5) K/uL Lymph # (Auto) (1.2-3.4) K/uL [place] # (Auto) (0.11-0.59) K/uL Eos # (Auto) (0-0.5) K/uL Baso # (Auto) (0-0.2) K/uL Immature Gran # (Auto) (0.00-0.02) K/uL ESR (0-30) mm/hr Sodium (136-145) mmol/L Potassium (3.5-5.1) mmol/L Chloride (98-107) mmol/L Carbon Dioxide (21-32) mmol/L Anion Gap (3-11) BUN (7-18) mg/dl Creatinine (0.6-1.2) mg/dl Est Cr Clr Drug Dosing ml/min Est GFR ( Amer) ml/min Est GFR (Non-Af Amer) ml/min BUN/Creatinine Ratio (10-20) Glucose (70-99) mg/dl Calcium (8.5-10.1) mg/dl Total Bilirubin (0.2-1) mg/dl AST (15-37) U/L ALT (12-78) U/L Alkaline Phosphatase (45-117) U/L Troponin I (0-0.045) ng/ml C-Reactive Protein (0-0.29) mg/dl NT-Pro-B Natriuret Pep (0-900) pg/ml Total Protein (6.4-8.2) gm/dl Albumin (3.4-5.0) gm/dl Globulin (2.5-4.0) gm/dl Albumin/Globulin Ratio (0.9-2) COVID-19 Eval Order Covid19 at [facility] SARS-CoV-2 (PCR) NEGATIVE (Negative) Medications Administered Current Inpatient Medications Miscellaneous Information (Daptomycin Consult Active) 1 ea N/A UD PRN PRN Reason: Consult Stop: 11/23/20 20:03 Last Admin: 10/24/20 21:23 Dose: 1 ea Documented by: Supervising Physician Co-Signing Physician Notes Patient seen and examined, chart reviewed, case discussed with Dr. Jurado and I agree with his assessment and plan as documented above. Briefly, patient is a 60yo female with morbid obesity, chronic venous stasis presenting with LLE cellulitis. She is afebrile, HD stable, non-toxic in appearance. No evidence of ascending infection. On exam she is nontoxic inappearance Skin - chronic venous stasis changes of bilateral LE. LLE with increased edema, redness and warmth, area of serous drainage on lateral portion of leg, small eschar on left 4th toe. Onychomycosis HEENT - NC/AT, PERRL, MMM Heart - +S1/S2, regular, no m/r/g Lungs - CTA Abd - +BS, soft, NT/ND Ext - As above Labs and images reviewed Assessment/Plan - Cellulitis LLE, negative for DVT -Daptomycin -Monitor for progression -Remainder of plan as above Resident Activity Tracking Resident Involvement: Resident Care Provided Care Provided: Adult Hospital Medicine (1) Asthma Asthma complication type: uncomplicated Asthma persistence: persistent Asthma severity: mild Qualified Code(s): J45.30 - Mild persistent asthma, uncomplicated
[2020-10-25] MEDS ORDERED: ALUMINUM/MAGNESIUM SUSP 30 ML UDC PO PRN (02:11)
[2020-10-25] MEDS ORDERED: ALBUTEROL 0.5% NEB SOLN 2.5 MG/0.5 ML VIAL INH PRN (02:11)
[2020-10-25] MEDS ORDERED: MAGNESIUM HYDROXIDE SUSP 30 ML UDC PO PRN (02:11)
[2020-10-25] MEDS ORDERED: POLYETHYLENE (MIRALAX) 17 GM PACK PO PRN (02:11)
[2020-10-25] MEDS ORDERED: ONDANSETRON INJ 2 MG/ML 2 ML VIAL IV PRN (02:11)
--- NOTE | 2020-10-25 05:43 | Billing Data ---
Date of Service October 24, 2020 Coding Level of Care Code 24585 OBS Care - Level 3
[2020-10-25] MEDS: HEPARIN SOD 5,000 UNIT/0.5 ML VIAL SQ SCH ×3 (05:50→20:41)
[2020-10-25 06:10] LABS: Basophils # (auto) 0.02 K/uL (0-0.2); Basophils % (auto) 0.3 %; Eosinophils # (auto) 0.19 K/uL (0-0.5); Eosinophils % (auto) 2.5 %; Hematocrit (blood only) 35.9 % (37-47); Hemoglobin 11.1 g/dL (12.0-16.0); Immature Granulocytes # (auto) 0.01 K/uL (0.00-0.02); Immature Granulocytes % (auto) 0.1 %; Lymphocytes # (auto) 1.94 K/uL (1.2-3.4); Lymphocytes % (auto) 25.4 %; Mean Corpuscular Hemoglobin 25.7 pg (25-34); Mean Corpuscular Hgb Conc 30.9 g/dL (32-36); Mean Corpuscular Volume 83.1 fL (80-100); Mean Platelet Volume 9.4 fL (7.4-10.4); Monocytes # (auto) 0.51 K/uL (0.11-0.59); Monocytes % (auto) 6.7 %; Neutrophils # (auto) 4.97 K/uL (1.4-6.5); Platelet Count 222 K/uL (130-400); RDW Coefficient of Variation 16.9 % (11.5-14.5); RDW Standard Deviation 51.4 fL (36.4-46.3); Red Blood Count 4.32 M/uL (4.2-5.4); White Blood Count 7.64 K/uL (4.8-10.8)
[2020-10-25 06:22] LABS: Estimated Average Glucose 128 mg/dl; Hemoglobin A1C 6.1 % (4.5-5.6)
--- NOTE | 2020-10-25 06:30 | Ultrasound Report ---
US venous doppler LE LT HISTORY: 60 years-old Female calf pain with mobility acute pain and swelling of the left calf COMPARISON: Doppler study 04/04/2020 TECHNIQUE: Multiple real-time sonographic images of the left lower extremity deep venous structures w ere obtained assessing grayscale appearance, color and spectral flow FINDINGS: Normal flow, compressibility, phasicity and augmentation. IMPRESSION: No sonographic evidence of deep venous thrombosis. ACT 112: Negative or not required by law. The above report was generated using voice recognition software. It may contain grammatical, syntax o r spelling errors. Electronically signed by: Reinaldo Todd M.D. 10/25/2020 6:29 AM
[2020-10-25 06:42] LABS: BUN Creatinine Ratio 9.6 (10-20); Creatinine Clr Calc Pharmacy 99.5 ml/min; Est GFR (African American) 54.9 ml/min; Est GFR (Non-African American) 47.4 ml/min; Magnesium 2.2 mg/dl (1.8-2.4); Phosphorus 3.6 mg/dl (2.5-4.9); Potassium 3.9 mmol/L (3.5-5.1)
--- NOTE | 2020-10-25 07:55 | XRay Report ---
LEFT ANKLE 3 VIEWS HISTORY: left ankle pain COMPARISON: None. FINDINGS: There is no fracture or dislocation. Plantar and posterior calcaneal spurs are noted, uncha nged. There is diffuse soft tissue swelling. Mild osteoarthritis at the tibiotalar joint. No soft tis monica gas identified. No radiopaque foreign bodies. No bony destruction to suggest an osteomyelitis. IMPRESSION: Diffuse soft tissue swelling within the left ankle. No underlying bony destruction. ACT 112: Negative or not required by law. Electronically signed by: Ji Velasquez M.D. 10/25/2020 7:54 AM
--- NOTE | 2020-10-25 08:33 | CT Scan Report ---
CT ankle LT wo con CT DOSE: 422.31 mGy.cm CLINICAL HISTORY: Cellulitis. Evaluate for osteomyelitis. TECHNIQUE: Helical images were acquired in the transverse plane. No intravenous contrast was administ ered. A dose lowering technique was utilized adhering to the principles of ALARA. COMPARISON STUDY: X-ray study dated 10/24/2020 FINDINGS: There is diffuse cutaneous and subcutaneous edema consistent with the clinical history of cellulitis. There is diffuse muscular atrophy. No fractures are visualized. There are no bony destructive changes to indicate osteomyelitis. There are mild osteoarthritic changes within the ankle and visualized portions of the midfoot. There is calcaneal spurring. IMPRESSION: 1. Diffuse cutaneous and subcutaneous edema consistent with the clinical history of cellulitis 2. No evidence of acute osteomyelitis 3. General change 4. Muscular atrophy ACT 112: Negative or not required by law. Electronically signed by: Parish Ramesh M.D. 10/25/2020 8:32 AM
[2020-10-25] MEDS: FUROSEMIDE 40 MG TAB PO SCH (08:52)
[2020-10-25] MEDS: aMILoride HCL 5 MG TAB PO SCH (08:53)
[2020-10-25] MEDS: allopurinoL 100 MG TAB PO SCH ×2 (08:53→20:40)
[2020-10-25] MEDS: buPROPion XL 300 MG TABCR PO SCH (08:53)
[2020-10-25] MEDS: busPIRone 15 MG TAB PO SCH ×3 (08:54→20:39)
[2020-10-25] MEDS: BISOPROLOL FUMARATE 5 MG TAB PO SCH (08:54)
[2020-10-25] MEDS: GABAPENTIN 300 MG CAP PO SCH ×3 (08:55→20:40)
[2020-10-25] MEDS: METOCLOPRAMIDE HCL 5 MG TABLET PO PRN (08:56)
[2020-10-25] MEDS: DULoxetine HCL 30 MG CAP PO SCH (08:56)
[2020-10-25] MEDS: SERTRALINE HCL 100 MG TABLET PO SCH (08:57)
[2020-10-25] MEDS: ARIPIprazole 1 MG/ML ORAL SOLN 150 ML BTL PO SCH (08:57)
[2020-10-25] MEDS: FAMOTIDINE 20 MG TAB PO SCH (08:58)
[2020-10-25] MEDS: ASPIRIN 81 MG ECTAB PO SCH (08:58)
[2020-10-25] MEDS: ATORVASTATIN 40 MG TAB PO SCH (08:58)
[2020-10-25] MEDS: CLOPIDOGREL BISULFATE 75 MG TAB PO SCH (08:58)
--- NOTE | 2020-10-25 09:16 | Hospitalist Progress Note ---
Date of Service October 25, 2020 Assessment & Plan (1) Cellulitis: Kriss Tristan is a 60-year-old female with past medical history significant for hypertension, hyperlipidemia, prediabetes, history of CVA, recurrent cellulitis, current bilateral lower extremity edema, and asthma; who presents for concerns of worsening lower extremity edema and concerns for cellulitis. Cellulitis left lower extremity: In the ED was started on daptomycin given concerns for erythematous changes to lower extremity. Elevated CRP, elevated ESR; negative WBC XR ankle not demonstrating any acute erosions or bony changes. Area of erythema outlined, appears to be receding. -Trend daily CBC -Monitor for clinical improvement -Continue Daptomycin day 1 -CT negative for osteomyelitis Bilateral lower extremity edema: -Notable history of lymphedema requiring multiple neuropathic pain medications and diuretics -Ultrasound duplex of left lower extremity negative for DVT Prediabetes: Last A1c 6.1 in June 2020 -A1c on 6.1. Hypertension -Continue home regimen Hyperlipidemia: -Continue home regimen Chronic kidney disease stage III: -Baseline creatinine appears to be 1.4 over the last year -No acute change noted on BMP we will continue to monitor in the setting of antibiotic usage Peripheral neuropathy: -Continue home pain management regimen Asthma/COPD: -Consideration of PFTs as outpatient given patient's significant smoking history -Continue albuterol nebs as needed for wheeze/shortness of breath -Started on LABA/ICS combo FENa: Heart healthy carb consistent Code Status: Full code DVT PPX: Heparin PT/OT: Consulted Dispo: Malgorzata Dickerson MD PGY 2, FCM This chart was completed utilizing [employer] voice recognition software. Grammatical errors, random word insertions, pronoun errors, and in complete sentences are an occasional consequence of the system. Any questions or concerns about the content, text, or information contained within the body of this dictation should be addressed directly to the physician for clarification. Admission and Anticipated Discharge Date Admission Date: October 24, 2020 Supervising Physician Co-Signing Physician Notes I personally examined the patient and verified all mae points of history and exam, discussed case, and agree with decision making with Dr Dickerson. Leg still hurts a lot and still has a large area that is red, but she does notice a good bit better than before. Vitals noted, in general she is awake and alert pleasant no distress. HEENT normocephalic atraumatic mucous membranes moist. Breathing unlabored no accessory muscle use good effort. Left lower extremity shows a large area of erythema completely asymmetric from the right, it is tender to palpation, but the erythema appears to have significantly receded probably a good 3 to 4 inches down from where her line was drawn. Left lower extremity cellulitis in the context of venous stasisseems to have been a fairly large area, reportedly failed multiple outpatient antibiotic regimens, raising high concern for MRSA. Continue daptomycin until there is even more ongoing clinical improvementthen probably safe for home on Doxy or Bactrim. Otherwise as above Subjective Patient lying in bed this morning in no acute distress. Relate a history similar to that described in the H&P. She endorses some left lower extremity pain. Notes that she received a CT scan this morning. Reports tolerating her diet, voiding, stooling no acute distress. Concerns related to cellulitis in her lower extremity questions answered. Physical Exam Physical Exam: General: Morbidly obese female lying in bed in no acute distress HEENT: Normocephalic atraumatic Cardiac: Regular rate and rhythm I did not appreciate significant murmurs rubs or gallops, normal S1, normal S2, 1+ pedal edema, negative calf tenderness Respiratory: Clear to auscultation bilaterally bilateral wheezes appreciated otherwise no crackles or rhonchi. Symmetrical chest expansion GI: Distended abdomen, soft, nontender, no rebound, no guarding MSK: Moves all extremities Neuro: Alert and oriented x4 Psych: Calm and cooperative with interview Results & Data Results & Data ([facility]) Vital Signs (Past 12 Hours) Vital Signs Temp Pulse Pulse Resp BP BP Pulse Ox 10/25/20 08:39 36.7 C 72 18 131/83 96 10/25/20 01:45 36.4 C L 76 16 153/69 H 96 10/25/20 01:35 80 18 155/90 H 98 10/24/20 23:40 84 18 162/88 H 98 10/24/20 23:00 71 18 134/86 10/24/20 22:30 67 20 144/94 H 10/24/20 22:01 68 19 120/92 10/24/20 21:31 71 18 148/62 H Laboratory Results 10/25/20 10/25/20 10/25/20 Range/Units 08:36 05:49 05:49 WBC (4.8-10.8) K/uL RBC (4.2-5.4) M/uL Hgb (12.0-16.0) g/dL Hct (37-47) % MCV (80-100) fL MCH (25-34) pg MCHC (32-36) g/dL RDW Std Deviation (36.4-46.3) fL RDW Coeff of Cleo (11.5-14.5) % Plt Count (130-400) K/uL MPV (7.4-10.4) fL Immature Gran % (Auto) % Neut % (Auto) % Lymph % (Auto) % Holt % (Auto) % Eos % (Auto) % Baso % (Auto) % Neut # (Auto) (1.4-6.5) K/uL Lymph # (Auto) (1.2-3.4) K/uL Holt # (Auto) (0.11-0.59) K/uL Eos # (Auto) (0-0.5) K/uL Baso # (Auto) (0-0.2) K/uL Immature Gran # (Auto) (0.00-0.02) K/uL ESR (0-30) mm/hr Sodium 141 (136-145) mmol/L Potassium 3.9 (3.5-5.1) mmol/L Chloride 107 (98-107) mmol/L Carbon Dioxide 29 (21-32) mmol/L Anion Gap 5.0 (3-11) BUN 12 (7-18) mg/dl Creatinine 1.25 H (0.6-1.2) mg/dl Est Cr Clr Drug Dosing 99.5 ml/min Est GFR ( Amer) 54.9 ml/min Est GFR (Non-Af Amer) 47.4 ml/min BUN/Creatinine Ratio 9.6 L (10-20) Glucose 94 (70-99) mg/dl POC Glucose 101 H (70-99) mg/dl Estimat Average Glucose 128 mg/dl Hemoglobin A1c 6.1 H (4.5-5.6) % Calcium 8.0 L (8.5-10.1) mg/dl Phosphorus 3.6 (2.5-4.9) mg/dl Magnesium 2.2 (1.8-2.4) mg/dl Total Bilirubin (0.2-1) mg/dl AST (15-37) U/L ALT (12-78) U/L Alkaline Phosphatase (45-117) U/L Troponin I (0-0.045) ng/ml C-Reactive Protein (0-0.29) mg/dl NT-Pro-B Natriuret Pep (0-900) pg/ml Total Protein (6.4-8.2) gm/dl Albumin (3.4-5.0) gm/dl Globulin (2.5-4.0) gm/dl Albumin/Globulin Ratio (0.9-2) COVID-19 Eval Order SARS-CoV-2 (PCR) (Negative) 10/25/20 10/25/20 10/24/20 Range/Units 05:49 01:50 19:34 WBC 7.64 (4.8-10.8) K/uL RBC 4.32 (4.2-5.4) M/uL Hgb 11.1 L (12.0-16.0) g/dL Hct 35.9 L (37-47) % MCV 83.1 (80-100) fL MCH 25.7 (25-34) pg MCHC 30.9 L (32-36) g/dL RDW Std Deviation 51.4 H (36.4-46.3) fL RDW Coeff of Cleo 16.9 H (11.5-14.5) % Plt Count 222 (130-400) K/uL MPV 9.4 (7.4-10.4) fL Immature Gran % (Auto) 0.1 % Neut % (Auto) 65.0 % Lymph % (Auto) 25.4 % Holt % (Auto) 6.7 % Eos % (Auto) 2.5 % Baso % (Auto) 0.3 % Neut # (Auto) 4.97 (1.4-6.5) K/uL Lymph # (Auto) 1.94 (1.2-3.4) K/uL Holt # (Auto) 0.51 (0.11-0.59) K/uL Eos # (Auto) 0.19 (0-0.5) K/uL Baso # (Auto) 0.02 (0-0.2) K/uL Immature Gran # (Auto) 0.01 (0.00-0.02) K/uL ESR 48 H (0-30) mm/hr Sodium (136-145) mmol/L Potassium (3.5-5.1) mmol/L Chloride (98-107) mmol/L Carbon Dioxide (21-32) mmol/L Anion Gap (3-11) BUN (7-18) mg/dl Creatinine (0.6-1.2) mg/dl Est Cr Clr Drug Dosing ml/min Est GFR ( Amer) ml/min Est GFR (Non-Af Amer) ml/min BUN/Creatinine Ratio (10-20) Glucose (70-99) mg/dl POC Glucose 105 H (70-99) mg/dl Estimat Average Glucose mg/dl Hemoglobin A1c (4.5-5.6) % Calcium (8.5-10.1) mg/dl Phosphorus (2.5-4.9) mg/dl Magnesium (1.8-2.4) mg/dl Total Bilirubin (0.2-1) mg/dl AST (15-37) U/L ALT (12-78) U/L Alkaline Phosphatase (45-117) U/L Troponin I (0-0.045) ng/ml C-Reactive Protein (0-0.29) mg/dl NT-Pro-B Natriuret Pep (0-900) pg/ml Total Protein (6.4-8.2) gm/dl Albumin (3.4-5.0) gm/dl Globulin (2.5-4.0) gm/dl Albumin/Globulin Ratio (0.9-2) COVID-19 Eval Order SARS-CoV-2 (PCR) (Negative) 10/24/20 10/24/20 10/24/20 Range/Units 19:34 19:34 19:00 WBC 8.85 (4.8-10.8) K/uL RBC 4.29 (4.2-5.4) M/uL Hgb 11.1 L (12.0-16.0) g/dL Hct 35.8 L (37-47) % MCV 83.4 (80-100) fL MCH 25.9 (25-34) pg MCHC 31.0 L (32-36) g/dL RDW Std Deviation 51.4 H (36.4-46.3) fL RDW Coeff of Cleo 16.8 H (11.5-14.5) % Plt Count 249 (130-400) K/uL MPV 9.6 (7.4-10.4) fL Immature Gran % (Auto) 0.1 % Neut % (Auto) 65.3 % Lymph % (Auto) 24.4 % Holt % (Auto) 7.5 % Eos % (Auto) 2.6 % Baso % (Auto) 0.1 % Neut # (Auto) 5.78 (1.4-6.5) K/uL Lymph # (Auto) 2.16 (1.2-3.4) K/uL Holt # (Auto) 0.66 H (0.11-0.59) K/uL Eos # (Auto) 0.23 (0-0.5) K/uL Baso # (Auto) 0.01 (0-0.2) K/uL Immature Gran # (Auto) 0.01 (0.00-0.02) K/uL ESR (0-30) mm/hr Sodium 140 (136-145) mmol/L Potassium 3.7 (3.5-5.1) mmol/L Chloride 105 (98-107) mmol/L Carbon Dioxide 31 (21-32) mmol/L Anion Gap 5.0 (3-11) BUN 15 (7-18) mg/dl Creatinine 1.42 H (0.6-1.2) mg/dl Est Cr Clr Drug Dosing 87.6 ml/min Est GFR ( Amer) 47.1 ml/min Est GFR (Non-Af Amer) 40.6 ml/min BUN/Creatinine Ratio 10.4 (10-20) Glucose 107 H (70-99) mg/dl POC Glucose (70-99) mg/dl Estimat Average Glucose mg/dl Hemoglobin A1c (4.5-5.6) % Calcium 8.5 (8.5-10.1) mg/dl Phosphorus (2.5-4.9) mg/dl Magnesium (1.8-2.4) mg/dl Total Bilirubin 0.4 (0.2-1) mg/dl AST 15 (15-37) U/L ALT 26 (12-78) U/L Alkaline Phosphatase 104 (45-117) U/L Troponin I < 0.015 (0-0.045) ng/ml C-Reactive Protein 2.73 H (0-0.29) mg/dl NT-Pro-B Natriuret Pep 92 (0-900) pg/ml Total Protein 6.9 (6.4-8.2) gm/dl Albumin 3.3 L (3.4-5.0) gm/dl Globulin 3.6 (2.5-4.0) gm/dl Albumin/Globulin Ratio 0.9 (0.9-2) COVID-19 Eval Order SARS-CoV-2 (PCR) NEGATIVE (Negative) 10/24/20 Range/Units 19:00 WBC (4.8-10.8) K/uL RBC (4.2-5.4) M/uL Hgb (12.0-16.0) g/dL Hct (37-47) % MCV (80-100) fL MCH (25-34) pg MCHC (32-36) g/dL RDW Std Deviation (36.4-46.3) fL RDW Coeff of Cleo (11.5-14.5) % Plt Count (130-400) K/uL MPV (7.4-10.4) fL Immature Gran % (Auto) % Neut % (Auto) % Lymph % (Auto) % Holt % (Auto) % Eos % (Auto) % Baso % (Auto) % Neut # (Auto) (1.4-6.5) K/uL Lymph # (Auto) (1.2-3.4) K/uL Holt # (Auto) (0.11-0.59) K/uL Eos # (Auto) (0-0.5) K/uL Baso # (Auto) (0-0.2) K/uL Immature Gran # (Auto) (0.00-0.02) K/uL ESR (0-30) mm/hr Sodium (136-145) mmol/L Potassium (3.5-5.1) mmol/L Chloride (98-107) mmol/L Carbon Dioxide (21-32) mmol/L Anion Gap (3-11) BUN (7-18) mg/dl Creatinine (0.6-1.2) mg/dl Est Cr Clr Drug Dosing ml/min Est GFR ( Amer) ml/min Est GFR (Non-Af Amer) ml/min BUN/Creatinine Ratio (10-20) Glucose (70-99) mg/dl POC Glucose (70-99) mg/dl Estimat Average Glucose mg/dl Hemoglobin A1c (4.5-5.6) % Calcium (8.5-10.1) mg/dl Phosphorus (2.5-4.9) mg/dl Magnesium (1.8-2.4) mg/dl Total Bilirubin (0.2-1) mg/dl AST (15-37) U/L ALT (12-78) U/L Alkaline Phosphatase (45-117) U/L Troponin I (0-0.045) ng/ml C-Reactive Protein (0-0.29) mg/dl NT-Pro-B Natriuret Pep (0-900) pg/ml Total Protein (6.4-8.2) gm/dl Albumin (3.4-5.0) gm/dl Globulin (2.5-4.0) gm/dl Albumin/Globulin Ratio (0.9-2) COVID-19 Eval Order Covid19 at [facility] SARS-CoV-2 (PCR) (Negative) Medications Administered Current Inpatient Medications Acetaminophen (Acetaminophen 500 Mg Tab) 1,000 mg PO Q4H PRN PRN Reason: fever or pain Stop: 11/24/20 02:25 Al Hydrox/Mg Hydrox/Simethicone (Aluminum/Magnesium Susp 30 Ml Udc) 30 ml PO Q6H PRN PRN Reason: Dyspepsia Stop: 11/24/20 02:10 Albuterol (Albuterol 0.5% Neb Soln 2.5 Mg/0.5 Ml Vial) 5 mg INH QIDR PRN PRN Reason: shortness of breath or wheezing Stop: 11/24/20 02:10 Allopurinol (Allopurinol 100 Mg Tab) 100 mg PO BID [facility] Stop: 11/24/20 08:59 Last Admin: 10/25/20 08:53 Dose: 100 mg Documented by: Amiloride HCl (Amiloride Hcl 5 Mg Tab) 5 mg PO DAILY [facility] Stop: 11/24/20 08:59 Last Admin: 10/25/20 08:53 Dose: 5 mg Documented by: Aripiprazole (Aripiprazole 1 Mg/Ml Oral Soln 150 Ml Btl) 2 mg PO DAILY [facility] Stop: 11/24/20 08:59 Last Admin: 10/25/20 08:57 Dose: 2 mg Documented by: Aspirin (Aspirin 81 Mg Ectab) 81 mg PO QAM [facility] Stop: 11/24/20 08:59 Last Admin: 10/25/20 08:58 Dose: 81 mg Documented by: Atorvastatin Calcium (Atorvastatin 40 Mg Tab) 40 mg PO DAILY [facility] Stop: 11/24/20 08:59 Last Admin: 10/25/20 08:58 Dose: 40 mg Documented by: Bisoprolol Fumarate (Bisoprolol Fumarate 5 Mg Tab) 5 mg PO DAILY [facility] Stop: 11/24/20 08:59 Last Admin: 10/25/20 08:54 Dose: 5 mg Documented by: Bupropion HCl (Bupropion Xl 300 Mg Tabcr) 300 mg PO QAM [facility] Stop: 11/24/20 08:59 Last Admin: 10/25/20 08:53 Dose: 300 mg Documented by: Buspirone HCl (Buspirone 15 Mg Tab) 15 mg PO TID [facility] Stop: 11/24/20 08:59 Last Admin: 10/25/20 08:54 Dose: 15 mg Documented by: Clopidogrel Bisulfate (Clopidogrel Bisulfate 75 Mg Tab) 75 mg PO DAILY [facility] Stop: 11/24/20 08:59 Last Admin: 10/25/20 08:58 Dose: 75 mg Documented by: Duloxetine HCl (Duloxetine Hcl 30 Mg Cap) 30 mg PO QAM [facility] Stop: 11/24/20 08:59 Last Admin: 10/25/20 08:56 Dose: 30 mg Documented by: Famotidine (Famotidine 20 Mg Tab) 20 mg PO QAM [facility] Stop: 11/24/20 08:59 Last Admin: 10/25/20 08:58 Dose: 20 mg Documented by: Furosemide (Furosemide 40 Mg Tab) 40 mg PO QAM [facility] Stop: 11/24/20 08:59 Last Admin: 10/25/20 08:52 Dose: 40 mg Documented by: Gabapentin (Gabapentin 300 Mg Cap) 300 mg PO TID [facility] Stop: 11/24/20 08:59 Last Admin: 10/25/20 08:55 Dose: 300 mg Documented by: Heparin Sodium (Porcine) (Heparin Sod 5,000 Unit/0.5 Ml Vial) 5,000 units SQ Q8 [facility] Stop: 11/24/20 05:59 Last Admin: 10/25/20 05:50 Dose: 5,000 units Documented by: Daptomycin 525 mg/ Syringe 10.5 mls @ 0 mls/min IV Q24H [facility]; Protocol Stop: 11/01/20 20:59 Magnesium Hydroxide (Magnesium Hydroxide Susp 30 Ml Udc) 30 ml PO Q6H PRN PRN Reason: Constipation Stop: 11/24/20 02:10 Metoclopramide HCl (Metoclopramide Hcl 5 Mg Tablet) 5 mg PO QID PRN PRN Reason: acid reflux Stop: 11/24/20 02:10 Last Admin: 10/25/20 08:56 Dose: 5 mg Documented by: Miscellaneous Information (Daptomycin Consult Active) 1 ea N/A UD PRN PRN Reason: Consult Stop: 11/23/20 20:03 Last Admin: 10/24/20 21:23 Dose: 1 ea Documented by: Montelukast Sodium (Montelukast Sodium 10 Mg Tablet) 10 mg PO PM [facility] Stop: 11/24/20 20:59 Nortriptyline HCl (Nortriptyline Hcl 25 Mg Cap) 150 mg PO HS [facility] Stop: 11/24/20 20:59 Ondansetron HCl (Ondansetron Inj 2 Mg/Ml 2 Ml Vial) 4 mg IV Q6H PRN PRN Reason: Nausea Stop: 11/24/20 02:10 Polyethylene Glycol (Polyethylene (Miralax) 17 Gm Pack) 17 gm PO DAILY PRN PRN Reason: Constipation Stop: 11/24/20 02:10 Quetiapine Fumarate (Quetiapine Fumarate 200 Mg Tab) 400 mg PO HS [facility] Stop: 11/24/20 20:59 Sertraline HCl (Sertraline Hcl 100 Mg Tablet) 200 mg PO DAILY [facility] Stop: 11/24/20 08:59 Last Admin: 10/25/20 08:57 Dose: 200 mg Documented by: Trazodone HCl (Trazodone Hcl 50 Mg Tab) 150 mg PO HS [facility] Stop: 11/24/20 20:59 Resident Activity Tracking Resident Involvement: Resident Care Provided Care Provided: Adult [facility] Medicine
[2020-10-25] MEDS: ACETAMINOPHEN 500 MG TAB PO PRN (14:30)
--- NOTE | 2020-10-25 19:04 | Billing Data ---
Date of Service October 25, 2020 Coding Level of Care Code 48072 Subseq Obs Care Lvl 3
[2020-10-25] MEDS: DAPTOmycin 525 MG in SYRINGE 0 ML IV SCH (20:36)
[2020-10-25] MEDS: NORTRIPTYLINE HCL 25 MG CAP PO SCH (20:37)
[2020-10-25] MEDS: QUEtiapine FUMARATE 200 MG TAB PO SCH (20:39)
[2020-10-25] MEDS: traZODone HCL 50 MG TAB PO SCH (20:39)
[2020-10-25] MEDS: MONTELUKAST SODIUM 10 MG TABLET PO SCH (20:40)
[2020-10-26] MEDS: HEPARIN SOD 5,000 UNIT/0.5 ML VIAL SQ SCH ×3 (05:37→21:23)
[2020-10-26 07:24] LABS: Basophils # (auto) 0.02 K/uL (0-0.2); Basophils % (auto) 0.3 %; Eosinophils # (auto) 0.22 K/uL (0-0.5); Eosinophils % (auto) 3.4 %; Hematocrit (blood only) 36.4 % (37-47); Hemoglobin 11.2 g/dL (12.0-16.0); Immature Granulocytes # (auto) 0.01 K/uL (0.00-0.02); Immature Granulocytes % (auto) 0.2 %; Lymphocytes # (auto) 2.33 K/uL (1.2-3.4); Lymphocytes % (auto) 35.9 %; Mean Corpuscular Hemoglobin 25.8 pg (25-34); Mean Corpuscular Hgb Conc 30.8 g/dL (32-36); Mean Corpuscular Volume 83.9 fL (80-100); Mean Platelet Volume 9.5 fL (7.4-10.4); Monocytes % (auto) 7.7 %; Neutrophils # (auto) 3.41 K/uL (1.4-6.5); Neutrophils % (auto) 52.5 %; Platelet Count 245 K/uL (130-400); RDW Coefficient of Variation 16.9 % (11.5-14.5); RDW Standard Deviation 52.7 fL (36.4-46.3); Red Blood Count 4.34 M/uL (4.2-5.4); White Blood Count 6.49 K/uL (4.8-10.8)
[2020-10-26 07:44] LABS: BUN Creatinine Ratio 10.6 (10-20); Calcium 7.9 mg/dl (8.5-10.1); Creatinine Clr Calc Pharmacy 101.1 ml/min; Est GFR (Non-African American) 48.3 ml/min
--- NOTE | 2020-10-26 07:45 | Electrocardiogram Report ---
Test Reason : Blood Pressure : / mmHG Vent. Rate : 071 BPM Atrial Rate : 071 BPM P-R Int : 184 ms QRS Dur : 104 ms QT Int : 422 ms P-R-T Axes : 006 -28 016 degrees QTc Int : 458 ms Normal sinus rhythm Low voltage QRS Inferior infarct (cited on or before 23-JUL-2017) Anterior infarct Abnormal ECG When compared with ECG of 16-JUN-2019 19:31, No significant change Confirmed by Jai Watkins ([id number]) on 10/26/2020 7:45:11 AM Referred By: Etelvina Cazares Confirmed By:Jai Watkins
[2020-10-26] MEDS: ACETAMINOPHEN 500 MG TAB PO PRN ×2 (09:35→21:21)
[2020-10-26] MEDS: busPIRone 15 MG TAB PO SCH ×3 (09:35→21:20)
[2020-10-26] MEDS: GABAPENTIN 300 MG CAP PO SCH ×3 (09:36→21:21)
[2020-10-26] MEDS: ASPIRIN 81 MG ECTAB PO SCH (09:37)
[2020-10-26] MEDS: allopurinoL 100 MG TAB PO SCH ×2 (09:37→21:21)
[2020-10-26] MEDS: CLOPIDOGREL BISULFATE 75 MG TAB PO SCH (10:05)
[2020-10-26] MEDS: ARIPIprazole 1 MG/ML ORAL SOLN 150 ML BTL PO SCH (10:06)
[2020-10-26] MEDS: FUROSEMIDE 40 MG TAB PO SCH (10:06)
[2020-10-26] MEDS: buPROPion XL 300 MG TABCR PO SCH (10:07)
[2020-10-26] MEDS: ATORVASTATIN 40 MG TAB PO SCH (10:07)
[2020-10-26] MEDS: aMILoride HCL 5 MG TAB PO SCH (10:07)
[2020-10-26] MEDS: BISOPROLOL FUMARATE 5 MG TAB PO SCH (10:07)
[2020-10-26] MEDS: FAMOTIDINE 20 MG TAB PO SCH (10:08)
[2020-10-26] MEDS: DULoxetine HCL 30 MG CAP PO SCH (10:08)
[2020-10-26] MEDS: SERTRALINE HCL 100 MG TABLET PO SCH (10:08)
--- NOTE | 2020-10-26 17:58 | Hospitalist Progress Note ---
Date of Service October 26, 2020 Assessment & Plan (1) Cellulitis: continue dapto follow area of pustules, may need debrided but hopefully not (2) Prediabetes: A1c 6.1 (3) Ambulatory dysfunction: PT/OT eval and treat, might need rehab (4) Morbid obesity with BMI of 50.0-59.9, adult: (5) CKD (chronic kidney disease) stage 3, GFR 30-59 ml/min: (6) Asthma: (7) DVT prophylaxis: heparin SQ (8) Discharge planning issues: contingent on how she does w PT/OT Admission and Anticipated Discharge Date Admission Date: October 26, 2020 Subjective leg maybe feeling a little better defiitely no worse maybe the same. Also notes that she has had a lot of difficulty getting aroundreally cannot walk around well at home - even preceding cellulitis Review of Systems Review of Systems: All systems reviewed & are unremarkable except as noted in HPI & below Physical Exam Physical Exam: gen aaox3 pleasant nad heent nc at mmm breathing unlabored no accessory muscles good effort skin shows her left lower extremity erythema to be more resolved than yesterday, definitely well down from previously drawn line - probably ~5-6 inches down. erythema now mostly dull maroon consistent with resolving cellulitis, there are a few pustules that are very tender and a little more warm and red, but they do feel very superficial. Results & Data Results & Data ([facility]) Vital Signs (Past 12 Hours) Vital Signs Temp Pulse Resp BP Pulse Ox 10/26/20 15:37 98.1 F 71 18 144/60 H 94 10/26/20 07:53 97.5 F L 67 20 115/73 96 PG Care Time/CCT Total # of Minutes Spent Total Time Spent with Patient: Total time spent is greater than 50% in coordination of care (as documented) at patient's floor/unit and/or counseling patient: Coding Level of Care Code 33821 Subseq Hosp Care Lvl 3 Diagnoses Cellulitis L03.90 Prediabetes R73.03 Ambulatory dysfunction R26.2 Morbid obesity with BMI of 50.0-59.9, adult E66.01; Z68.43 CKD (chronic kidney disease) stage 3, GFR 30-59 ml/min N18.32 Chronic kidney disease stage 3 subtype: stage 3b (GFR 30-44) Asthma J45.30 Asthma severity: mild Asthma persistence: persistent Asthma complication type: uncomplicated DVT prophylaxis Z29.9 Discharge planning issues Z02.9 (1) CKD (chronic kidney disease) stage 3, GFR 30-59 ml/min Chronic kidney disease stage 3 subtype: stage 3b (GFR 30-44) Qualified Code(s): N18.32 - Chronic kidney disease, stage 3b (2) Asthma Asthma severity: mild Asthma persistence: persistent Asthma complication type: uncomplicated Qualified Code(s): J45.30 - Mild persistent asthma, uncomplicated
[2020-10-26] MEDS: DAPTOmycin 525 MG in SYRINGE 0 ML IV SCH (21:21)
[2020-10-26] MEDS: traZODone HCL 50 MG TAB PO SCH (21:25)
[2020-10-26] MEDS: MONTELUKAST SODIUM 10 MG TABLET PO SCH (21:25)
[2020-10-26] MEDS: NORTRIPTYLINE HCL 25 MG CAP PO SCH (21:26)
[2020-10-26] MEDS: QUEtiapine FUMARATE 200 MG TAB PO SCH (21:26)
[2020-10-27] MEDS: HEPARIN SOD 5,000 UNIT/0.5 ML VIAL SQ SCH ×3 (06:19→20:34)
[2020-10-27] MEDS: ACETAMINOPHEN 500 MG TAB PO PRN ×2 (07:27→11:19)
[2020-10-27] MEDS: aMILoride HCL 5 MG TAB PO SCH (08:20)
[2020-10-27] MEDS: ASPIRIN 81 MG ECTAB PO SCH (08:21)
[2020-10-27] MEDS: allopurinoL 100 MG TAB PO SCH ×2 (08:22→20:33)
[2020-10-27] MEDS: busPIRone 15 MG TAB PO SCH ×3 (08:22→20:33)
[2020-10-27] MEDS: ATORVASTATIN 40 MG TAB PO SCH (08:22)
[2020-10-27] MEDS: GABAPENTIN 300 MG CAP PO SCH ×3 (08:23→20:33)
[2020-10-27] MEDS: buPROPion XL 300 MG TABCR PO SCH (08:23)
[2020-10-27] MEDS: FAMOTIDINE 20 MG TAB PO SCH (08:23)
[2020-10-27] MEDS: FUROSEMIDE 40 MG TAB PO SCH (08:24)
[2020-10-27] MEDS: DULoxetine HCL 30 MG CAP PO SCH (08:24)
[2020-10-27] MEDS: ARIPIprazole 1 MG/ML ORAL SOLN 150 ML BTL PO SCH (08:24)
[2020-10-27] MEDS: SERTRALINE HCL 100 MG TABLET PO SCH (08:24)
[2020-10-27] MEDS: CLOPIDOGREL BISULFATE 75 MG TAB PO SCH (08:25)
[2020-10-27] MEDS: BISOPROLOL FUMARATE 5 MG TAB PO SCH (08:25)
[2020-10-27] MEDS: CEFDINIR 300 MG CAP PO SCH ×2 (11:19→20:33)
--- NOTE | 2020-10-27 20:13 | Hospitalist Progress Note ---
Date of Service October 27, 2020 Assessment & Plan (1) Cellulitis: Interestingly MSSAtherefore for that, the daptomycin was not needed, but interestingly she did fail Keflex and doxycycline as an outpatient prior, suggesting that almost certainly this polymicrobial. The recession of her erythema had to have been gram-positive given that she was only on daptomycin, but her concern on wanting to see the final results of the gram-negative is quite reasonable given what all she had failed prior. That said, at this point time after discussion with pharmacy, we will switch her to cefdinir pending final sensitivities. Anticipation of going home once we have a clear-cut antibiotic regimen for discharge. (2) Prediabetes: A1c 6.1, lifestyle change would be of benefit (3) Ambulatory dysfunction: PT/OT eval and treat, and fortunately she appears to be stable for outpatient therapy rather than needing rehab (4) Morbid obesity with BMI of 50.0-59.9, adult: (5) CKD (chronic kidney disease) stage 3, GFR 30-59 ml/min: (6) Asthma: (7) DVT prophylaxis: heparin SQ (8) Discharge planning issues: Anticipate home with outpatient PT/OT, once sensitivities are back and we are able to put together a final antibiotic regimen. Admission and Anticipated Discharge Date Admission Date: October 26, 2020 Subjective Leg still hurts, able to get around some, leg is feeling better than before. In discussion of culture results, and overall clinical progress, given that she had been on 2 courses of antibiotics prior to admission, she would much prefer waiting until cultures are finalized before going home. Review of Systems Review of Systems: All systems reviewed & are unremarkable except as noted in HPI & below Physical Exam Physical Exam: General she is awake and alert pleasant no distress. HEENT normocephalic atraumatic mucous membranes are moist. Skin shows left lower extremity erythema now really faded to more of a dull maroon, almost chronic venous stasis staining type of in appearance. The small areas of pustules from yesterday have now spontaneously opened up and are simply shallow ulcerations with no exudate. And the erythema has dramatically receded (probably 6+ inches) from the previously drawn line. Results & Data Results & Data ([facility]) Vital Signs (Past 12 Hours) Vital Signs Temp Pulse Pulse Resp BP BP Pulse Ox 10/27/20 16:00 98.1 F 75 18 135/84 92 10/27/20 12:03 97.3 F L 63 18 120/69 93 PG Care Time/CCT Total # of Minutes Spent Total Time Spent with Patient: Total time spent is greater than 50% in coordination of care (as documented) at patient's floor/unit and/or counseling patient: Coding Level of Care Code 65056 Subseq Hosp Care Lvl 2 Diagnoses Cellulitis L03.90 Prediabetes R73.03 Ambulatory dysfunction R26.2 Morbid obesity with BMI of 50.0-59.9, adult E66.01; Z68.43 CKD (chronic kidney disease) stage 3, GFR 30-59 ml/min N18.32 Chronic kidney disease stage 3 subtype: stage 3b (GFR 30-44) Asthma J45.30 Asthma severity: mild Asthma persistence: persistent Asthma complication type: uncomplicated DVT prophylaxis Z29.9 Discharge planning issues Z02.9 (1) CKD (chronic kidney disease) stage 3, GFR 30-59 ml/min Chronic kidney disease stage 3 subtype: stage 3b (GFR 30-44) Qualified Code(s): N18.32 - Chronic kidney disease, stage 3b (2) Asthma Asthma severity: mild Asthma persistence: persistent Asthma complication type: uncomplicated Qualified Code(s): J45.30 - Mild persistent asthma, uncomplicated
[2020-10-27] MEDS: MONTELUKAST SODIUM 10 MG TABLET PO SCH (20:33)
[2020-10-27] MEDS: NORTRIPTYLINE HCL 25 MG CAP PO SCH (20:33)
[2020-10-27] MEDS: QUEtiapine FUMARATE 200 MG TAB PO SCH (20:34)
[2020-10-27] MEDS: traZODone HCL 50 MG TAB PO SCH (20:34)
[2020-10-28] MEDS: HEPARIN SOD 5,000 UNIT/0.5 ML VIAL SQ SCH ×3 (05:34→22:27)
[2020-10-28 07:34] LABS: BUN Creatinine Ratio 9.9 (10-20); Calcium 8.3 mg/dl (8.5-10.1); Creatinine Clr Calc Pharmacy 100.3 ml/min; Est GFR (African American) 55.4 ml/min; Est GFR (Non-African American) 47.8 ml/min
[2020-10-28] MEDS: ACETAMINOPHEN 500 MG TAB PO PRN ×3 (08:33→22:33)
[2020-10-28] MEDS: allopurinoL 100 MG TAB PO SCH ×2 (08:39→22:34)
[2020-10-28] MEDS: ARIPIprazole 1 MG/ML ORAL SOLN 150 ML BTL PO SCH (08:39)
[2020-10-28] MEDS: aMILoride HCL 5 MG TAB PO SCH (08:39)
[2020-10-28] MEDS: ASPIRIN 81 MG ECTAB PO SCH (08:39)
[2020-10-28] MEDS: BISOPROLOL FUMARATE 5 MG TAB PO SCH (08:40)
[2020-10-28] MEDS: CEFDINIR 300 MG CAP PO SCH ×2 (08:40→22:33)
[2020-10-28] MEDS: busPIRone 15 MG TAB PO SCH ×3 (08:40→22:25)
[2020-10-28] MEDS: buPROPion XL 300 MG TABCR PO SCH (08:40)
[2020-10-28] MEDS: ATORVASTATIN 40 MG TAB PO SCH (08:40)
[2020-10-28] MEDS: CLOPIDOGREL BISULFATE 75 MG TAB PO SCH (08:43)
[2020-10-28] MEDS: FUROSEMIDE 40 MG TAB PO SCH (08:44)
[2020-10-28] MEDS: SERTRALINE HCL 100 MG TABLET PO SCH (08:44)
[2020-10-28] MEDS: DULoxetine HCL 30 MG CAP PO SCH (08:44)
[2020-10-28] MEDS: GABAPENTIN 300 MG CAP PO SCH ×3 (08:44→22:25)
[2020-10-28] MEDS: FAMOTIDINE 20 MG TAB PO SCH (10:22)
--- NOTE | 2020-10-28 10:48 | Hospitalist Progress Note ---
Date of Service October 28, 2020 Assessment & Plan (1) Cellulitis: Interestingly MSSAtherefore for that, the daptomycin was not needed, but interestingly she did fail Keflex and doxycycline as an outpatient prior, suggesting that almost certainly this polymicrobial. The recession of her erythema had to have been gram-positive given that she was only on daptomycin, but her concern on wanting to see the final results of the gram-negative is quite reasonable given what all she had failed prior. I personally called micro and the gram negative is not yet speciated nor sensitized That said, at this point time after discussion with pharmacy, we will switch her to cefdinir pending final sensitivities. Anticipation of going home once we have a clear-cut antibiotic regimen for discharge. (2) Prediabetes: A1c 6.1, lifestyle change would be of benefit however morbid obesity makes exercise difficult may benefit from nutrition counselling post discharge (3) Ambulatory dysfunction: PT/OT eval and treat, and fortunately she appears to be stable for outpatient therapy rather than needing rehab (4) Morbid obesity with BMI of 50.0-59.9, adult: (5) CKD (chronic kidney disease) stage 3, GFR 30-59 ml/min: (6) Asthma: (7) DVT prophylaxis: heparin SQ (8) Discharge planning issues: Anticipate home with outpatient PT/OT, once sensitivities are back and we are able to put together a final antibiotic regimen. Admission and Anticipated Discharge Date Admission Date: October 26, 2020 Subjective Leg still hurts, able to get around some, leg is feeling better than before. In discussion of culture results, and overall clinical progress, given that she had been on 2 courses of antibiotics prior to admission, she would much prefer waiting until cultures are finalized before going home. I did phone lab and the gram negatives are not identified Review of Systems Review of Systems: Mild distress and fatigue no headache, no visual changes no speech or swallowing issues no chest pain, pressure or palpitations no shortness of breath, cough or wheezes no abdominal pain, nausea or vomiting, diarrhea or constipation no dysuria, hematuria or frequency no focal joint pain or swelling no back pain, CVA tenderness or radicular pain no bruising, bleeding or rashes no focal signs of weakness or numbness or altered sensation no complaints of anxiety or depression.. Physical Exam Physical Exam: The patient appeared well nourished and normally developed. Vital signs as documented. Head exam is normocephalic atraumatic Neck is without JVD, thyromegaly, or carotid bruits. Lungs are clear to auscultation, no focal loss of breath sounds Cardiac exam, Rhythm is regular.. No murmurs, rubs or gallops. Abdominal exam reveals normal bowel sounds, soft non tender, no masses Extremities are venous stasis changes with open areas. Erythema has receded from line of demarcation Neurologic exam is alert and oriented neuropathy is present Skin is with healing open areas to the lower extremity Psychologically is without concerns for anxiety or depression Results & Data Results & Data ([facility]) Vital Signs (Past 12 Hours) Vital Signs Temp Pulse Resp BP Pulse Ox 10/28/20 08:21 97.5 F L 69 16 129/78 94 PG Care Time/CCT Total # of Minutes Spent Total Time Spent with Patient: Total time spent is greater than 50% in coordination of care (as documented) at patient's floor/unit and/or counseling patient: Coding Level of Care Code 61624 Subseq Hosp Care Lvl 2 Diagnoses Cellulitis L03.90 Prediabetes R73.03 Ambulatory dysfunction R26.2 Morbid obesity with BMI of 50.0-59.9, adult E66.01; Z68.43 CKD (chronic kidney disease) stage 3, GFR 30-59 ml/min N18.32 Chronic kidney disease stage 3 subtype: stage 3b (GFR 30-44) Asthma J45.30 Asthma complication type: uncomplicated Asthma persistence: persistent Asthma severity: mild DVT prophylaxis Z29.9 Discharge planning issues Z02.9 (1) CKD (chronic kidney disease) stage 3, GFR 30-59 ml/min Chronic kidney disease stage 3 subtype: stage 3b (GFR 30-44) Qualified Code(s): N18.32 - Chronic kidney disease, stage 3b (2) Asthma Asthma complication type: uncomplicated Asthma persistence: persistent Asthma severity: mild Qualified Code(s): J45.30 - Mild persistent asthma, uncomplicated
[2020-10-28] MEDS: traZODone HCL 50 MG TAB PO SCH (22:36)
[2020-10-28] MEDS: QUEtiapine FUMARATE 200 MG TAB PO SCH (22:36)
[2020-10-28] MEDS: NORTRIPTYLINE HCL 25 MG CAP PO SCH (22:36)
[2020-10-28] MEDS: MONTELUKAST SODIUM 10 MG TABLET PO SCH (22:37)
[2020-10-29] MEDS: HEPARIN SOD 5,000 UNIT/0.5 ML VIAL SQ SCH ×2 (06:45→13:16)
[2020-10-29] MEDS: METOCLOPRAMIDE HCL 5 MG TABLET PO PRN (08:53)
[2020-10-29] MEDS: ARIPIprazole 1 MG/ML ORAL SOLN 150 ML BTL PO SCH (08:53)
[2020-10-29] MEDS: aMILoride HCL 5 MG TAB PO SCH (08:53)
[2020-10-29] MEDS: GABAPENTIN 300 MG CAP PO SCH ×2 (08:53→13:16)
[2020-10-29] MEDS: allopurinoL 100 MG TAB PO SCH (08:53)
[2020-10-29] MEDS: ASPIRIN 81 MG ECTAB PO SCH (08:54)
[2020-10-29] MEDS: BISOPROLOL FUMARATE 5 MG TAB PO SCH (08:54)
[2020-10-29] MEDS: FUROSEMIDE 40 MG TAB PO SCH (08:54)
[2020-10-29] MEDS: DULoxetine HCL 30 MG CAP PO SCH (08:54)
[2020-10-29] MEDS: buPROPion XL 300 MG TABCR PO SCH (08:54)
[2020-10-29] MEDS: busPIRone 15 MG TAB PO SCH ×2 (08:55→13:16)
[2020-10-29] MEDS: ATORVASTATIN 40 MG TAB PO SCH (08:55)
[2020-10-29] MEDS: CLOPIDOGREL BISULFATE 75 MG TAB PO SCH (08:55)
[2020-10-29] MEDS: SERTRALINE HCL 100 MG TABLET PO SCH (08:55)
[2020-10-29] MEDS: CEFDINIR 300 MG CAP PO SCH (08:55)
[2020-10-29] MEDS: ACETAMINOPHEN 500 MG TAB PO PRN (09:02)
[2020-10-29] MEDS: FAMOTIDINE 20 MG TAB PO SCH (09:27)
--- NOTE | 2020-10-29 20:22 | Discharge Summary ---
Date of Service October 29, 2020 Admission HPI Per Admitting Provider Kriss Tristan is a 60-year-old female with past medical history significant for hypertension, hyperlipidemia, prediabetes, history of CVA, recurrent cellulitis, current bilateral lower extremity edema, and asthma; who presents for concerns of worsening lower extremity edema and concerns for cellulitis. Over the last 2 months patient has noticed that she is having increasing swelling and difficulty with walking both of her legs. However additionally notes that this has worsened over the last week with her left leg being more swollen than her right also noticing more redness and tenderness to touch over that leg. Noticed that it probably started around her ankle and that has progressed up towards her knee at this point time. Has had increasing difficulty with walking around over this time as she had pain in her left heel, this was new from her normal pains that she experiences on a regular basis as a result of her edema. Endorses that she typically has some redness over her air shins but this is more due to her lymphedema than anything. Denies fevers, chills, sweats, nausea, vomiting, abdominal pain, shortness of breath, wheeze, chest pain, palpitations, lightheadedness. Principal Diagnosis Polymicrobial lower extremity infection Chronic venous stasis changes to lower extremities secondary to morbid obesity Discharge Exam Emanation of her legs showed continue lack of erythema compared to lines of demarcation 3 open areas on her left leg which will be cared for by wound care and also family. Discharge Data Allergies Allergy/AdvReac Type Severity Reaction Status Date / Time Corticosteroids Allergy Intermediate RASH Verified 10/24/20 15:00 (Glucocorticoids) morphine Allergy Intermediate MOUTH Verified 10/24/20 15:00 SWELLS/FACE SWELLS orange Allergy Intermediate HIVES Verified 10/24/20 15:00 Penicillins Allergy Intermediate RASH/HIVES Verified 10/27/20 09:49 prednisone Allergy Intermediate RED RASH Verified 10/24/20 15:00 pregabalin Allergy Intermediate GOOFY Verified 10/24/20 15:00 zolpidem Allergy Intermediate UNSURE Verified 10/24/20 15:00 orange (food color) Allergy Mild rash Verified 10/24/20 15:00 Consultations 10/24/20 20:12 ED Decision to Admit Stat Ordered Studies 10/24/20 22:04 CT ankle LT wo con Routine 10/24/20 22:46 US venous doppler LE LT Urgent Hospital Course (1) Cellulitis: Interestingly MSSAtherefore for that, the daptomycin was not needed, but interestingly she did fail Keflex and doxycycline as an outpatient prior, suggesting that almost certainly this polymicrobial. The recession of her erythema had to have been gram-positive given that she was only on daptomycin, but her concern on wanting to see the final results of the gram-negative. Labs having difficulty identifying it may be Pasteurella species. Given the fact t hat she is improved dramatically on cefdinir and has been on oral cefdinir for 48 hours we will continue this medication at discharge but call her if the sensitivities result in a way that needs her antibiotics amended. Patient denies animal bites . (2) Prediabetes: A1c 6.1, lifestyle change would be of benefit however morbid obesity makes exercise difficult may benefit from nutrition counselling post discharge (3) Ambulatory dysfunction: PT/OT eval and treat, and fortunately she appears to be stable for ou tpatient therapy rather than needing rehab (4) Morbid obesity with BMI of 50.0-59.9, adult: (5) CKD (chronic kidney disease) stage 3, GFR 30-59 ml/min: (6) Asthma: (7) Discharge planning issues: Anticipate home with outpatient PT/OT, once sensitivities are back and we are able to put together a final antibiotic regimen. Total Time Total Time Spent Total Time Spent (In Minutes): It required greater than 30 minutes to prepare this patient for discharge Discharge Plan Discharge Items Patient Disposition: Home - Self-Care Reason For Visit: LEFT LEG CELLULITIS Discharge Diagnosis: left lower extremity skin infection Activity: Per Instructions section Activity Comment: elevate your legs as much as able Non-emergency contact: Primary Care Provider Call non-emergency contact if: your symptoms worsen and you have a fever Follow-up/Referrals: Etelvina Cazares DO [Primary Care Provider] - 11/05/20 8:30 am Diet: Carb Consistent or DM2 Addtl Attending Provider Instructions: Wash your legs with gentle soap and water and dry all open areas completely, place a dry sterile dressing, even a large band aide over any open areas eat a low salt low sugar diet to help reduce swelling keep legs elevated as much as able when sitting follow up with your primary care doctor in one week or less finish all of your antibiotics Pending Studies at Discharge: Yes Stand-Alone Forms: My [facility], Smoking Cessation Medications and DC Order Prescriptions: New cefdinir 300 mg Capsule 300 mg PO BID Qty: 20 RF: 0 Continued bupropion HCl 300 mg tablet extended release 24 hr 300 mg PO QAM Qty: 30 RF: 5 allopurinol 100 mg tablet 100 mg PO BID Qty: 180 RF: 2 albuterol sulfate 2.5 mg/0.5 mL solution for nebulization 5 mg inhalation QID PRN (Reason: shortness of breath or wheezing) Qty: 30 RF: 1 pantoprazole 40 mg tablet,delayed release (DR/EC) 40 mg PO QAM Qty: 30 RF: 5 atorvastatin 40 mg tablet 40 mg PO DAILY Qty: 90 RF: 1 clopidogrel [Plavix] 75 mg tablet 75 mg PO DAILY Qty: 90 RF: 1 furosemide [Lasix] 20 mg tablet See Rx Instructions .ROUTE .COMPLEX Qty: 90 RF: 3 gabapentin 300 mg capsule 300 mg PO TID Qty: 90 RF: 3 amiloride 5 mg tablet 5 mg PO DAILY Qty: 90 RF: 1 duloxetine 30 mg capsule,delayed release(DR/EC) 30 mg PO QAM Qty: 90 RF: 1 bisoprolol fumarate 5 mg tablet 5 mg PO DAILY Qty: 90 RF: 1 cyanocobalamin (vitamin B-12) [Vitamin B-12] 1,000 mcg tablet 1,000 mcg PO DAILY Qty: 30 RF: 0 sertraline 100 mg tablet 200 mg PO DAILY Qty: 180 RF: 1 metoclopramide HCl 5 mg tablet 5 mg PO QID PRN (Reason: acid reflux) RF: 0 trazodone 150 mg tablet 150 mg PO HS RF: 0 aspirin [Aspir-81] 81 mg tablet,delayed release (DR/EC) 81 mg PO QAM Qty: 30 RF: 0 buspirone 15 mg tablet 15 mg PO TID Qty: 30 RF: 0 calcium carbonate 300 mg (750 mg) tablet,chewable 900 mg PO DAILY PRN (Reason: dyspepsia) Qty: 30 RF: 0 quetiapine 400 mg tablet 400 mg PO HS Qty: 30 RF: 0 multivitamin tablet 1 tab PO QAM Qty: 30 RF: 0 cholecalciferol (vitamin D3) [Vitamin D3] 2,000 unit capsule 2,000 unit PO TID Qty: 30 RF: 0 aripiprazole [Abilify] 2 mg tablet 2 mg PO DAILY Qty: 90 RF: 1 famotidine 20 mg tablet 20 mg PO QAM Qty: 90 RF: 1 nortriptyline 50 mg capsule 150 mg PO HS Qty: 90 RF: 3 albuterol sulfate [Ventolin HFA] 90 mcg/actuation HFA aerosol inhaler 2 puff INHALATION Q4H PRN (Reason: Shortness Of Breath Or Wheezing) Qty: 18 RF: 2 montelukast 10 mg tablet 10 mg PO PM Qty: 30 RF: 0 acetaminophen 500 mg tablet 1,000 mg PO Q4H PRN (Reason: fever or pain) RF: 0 Discharge Orders: Discharge Order (Routine); Ordered 10/29/20 Ordered By: Sundeep Uriarte/Other Patient Handouts: Prediabetes, 5 Steps for Eating Healthier, A1C Admission Data Admit Date/Time: 10/26/20 11:43 Attending Provider: Sundeep Painter Admit Provider: Bret Jurado Primary Care Provider: Etelvina Cazares Other Providers: Awilda Dickerson Other Interventions: Discharge Summary Assessment (RN) Last Done: 10/29/20 08:00 Coding Level of Care Code D/C Day Management >30 mins Diagnoses Cellulitis L03.90 Prediabetes R73.03 Ambulatory dysfunction R26.2 Morbid obesity with BMI of 50.0-59.9, adult E66.01; Z68.43 CKD (chronic kidney disease) stage 3, GFR 30-59 ml/min N18.32 Chronic kidney disease stage 3 subtype: stage 3b (GFR 30-44) Asthma J45.30 Asthma severity: mild Asthma persistence: persistent Asthma complication type: uncomplicated Discharge planning issues Z02.9
== END 2020-10-29 16:28 | disposition home or self-care (01) | DRG 603 ==
LOC: ED 17:28 → 3N 17:28 → SUATTDRO 23:28 → 3N 10-25 01:36 → SUATTDRO 10-26 11:43

== ENCOUNTER 2021-03-29 03:03 | Inpatient (IN) ==
[2021-03-29 05:50] LABS: Basophils # (auto) 0.02 K/uL (0-0.2); Basophils % (auto) 0.2 %; Eosinophils # (auto) 0.48 K/uL (0-0.5); Eosinophils % (auto) 5.1 %; Hematocrit (blood only) 37.3 % (37-47); Hemoglobin 11.5 g/dL (12.0-16.0); Immature Granulocytes # (auto) 0.01 K/uL (0.00-0.02); Immature Granulocytes % (auto) 0.1 %; Lymphocytes # (auto) 2.13 K/uL (1.2-3.4); Lymphocytes % (auto) 22.5 %; Mean Corpuscular Hemoglobin 25.3 pg (25-34); Mean Corpuscular Hgb Conc 30.8 g/dL (32-36); Mean Corpuscular Volume 82.2 fL (80-100); Mean Platelet Volume 9.6 fL (7.4-10.4); Monocytes # (auto) 0.51 K/uL (0.11-0.59); Monocytes % (auto) 5.4 %; Neutrophils % (auto) 66.7 %; Platelet Count 270 K/uL (130-400); RDW Coefficient of Variation 17.2 % (11.5-14.5); RDW Standard Deviation 51.8 fL (36.4-46.3); Red Blood Count 4.54 M/uL (4.2-5.4); White Blood Count 9.45 K/uL (4.8-10.8)
[2021-03-29 05:58] LABS: Prothrombin Time 10.6 Seconds (9.0-12.0)
[2021-03-29 06:07] LABS: Alanine Aminotransferase 34 U/L (12-78); Albumin Level 3.2 gm/dl (3.4-5.0); Aspartate Aminotransferase 24 U/L (15-37); BUN Creatinine Ratio 7.9 (10-20); Blood Urea Nitrogen 10 mg/dl (7-18); Calcium 8.6 mg/dl (8.5-10.1); Carbon Dioxide 35 mmol/L (21-32); Chloride 104 mmol/L (98-107); Creatinine Clr Calc Pharmacy 82.8 ml/min; Est GFR (African American) 51.4 ml/min; Est GFR (Non-African American) 44.4 ml/min; Glucose 90 mg/dl (70-99); Magnesium 2.2 mg/dl (1.8-2.4); Potassium 3.6 mmol/L (3.5-5.1); Sodium 141 mmol/L (136-145)
[2021-03-29 06:18] LABS: Albumin Globulin Ratio 0.8 (0.9-2); Alkaline Phosphatase 108 U/L (45-117); Bilirubin,Total 0.4 mg/dl (0.2-1); Globulin 4.2 gm/dl (2.5-4.0); Total Protein 7.4 gm/dl (6.4-8.2); Troponin I < 0.015 ng/ml (0-0.045)
[2021-03-29 07:18] LABS: Appearance Urine Clear (Clear); Bilirubin Urine Negative (Negative); Blood Urine Negative (Negative); Color Urine Yellow; Glucose Urine UA Negative (Negative); Ketones Urine Negative (Negative); Leukocyte Esterase Urine Negative (Negative); Nitrite Urine Negative (Negative); Protein Urine Negative (Negative); Urobilinogen Urine Negative (Negative); pH Urine 5.5 (4.5-7.5)
[2021-03-29] MEDS ORDERED: cefTRIAXone SODIUM 2,000 MG/70 ML BAG IV STA (08:33)
--- NOTE | 2021-03-29 09:10 | History & Physical Report ---
Date of Service March 29, 2021 History of Present Illness Primary Care Provider: Etelvina Cazares DO Allergies Allergy/AdvReac Type Severity Reaction Status Date / Time Corticosteroids Allergy Intermediate RASH Verified 03/25/21 15:28 (Glucocorticoids) morphine Allergy Intermediate MOUTH Verified 03/25/21 15:28 SWELLS/FACE SWELLS orange Allergy Intermediate HIVES Verified 03/25/21 15:28 Penicillins Allergy Intermediate RASH/HIVES Verified 03/25/21 15:28 prednisone Allergy Intermediate RED RASH Verified 03/25/21 15:28 pregabalin Allergy Intermediate GOOFY Verified 03/25/21 15:28 zolpidem Allergy Intermediate UNSURE Verified 03/25/21 15:28 orange (food color) Allergy Mild rash Verified 03/25/21 15:28 Home Medications Medication Instructions Recorded Confirmed Type clopidogrel 75 mg tablet (Plavix) 75 mg PO DAILY #90 tab 05/21/20 03/29/21 Rx cyanocobalamin (vitamin B-12) 1,000 mcg PO DAILY #30 tab 09/25/20 03/29/21 Rx 1,000 mcg tablet (Vitamin B-12) pantoprazole 40 mg tablet,delayed 40 mg PO QAM #30 tab 11/04/20 03/29/21 Rx release montelukast 10 mg tablet 10 mg PO PM #90 tab 11/12/20 03/29/21 Rx bisoprolol fumarate 5 mg tablet 5 mg PO DAILY #90 tab 11/14/20 03/29/21 Rx aripiprazole 2 mg tablet (Abilify) 2 mg PO DAILY #90 tab 12/02/20 03/29/21 Rx mupirocin 2 % topical ointment 1 applic TOPICAL BID #30 g 01/15/21 03/29/21 Rx albuterol sulfate 90 mcg/actuation 2 puff INHALATION Q4H PRN #18 gm 01/27/21 03/29/21 Rx aerosol inhaler (Ventolin HFA) aspirin 81 mg tablet,delayed 81 mg PO QAM #90 tab 01/29/21 03/29/21 Rx release atorvastatin 40 mg tablet 40 mg PO DAILY #90 tab 01/29/21 03/29/21 Rx bupropion HCl 300 mg 24 hr tablet, 300 mg PO QAM #90 tab 01/29/21 03/29/21 Rx extended release buspirone 15 mg tablet 15 mg PO TID #270 tab 01/29/21 03/29/21 Rx calcium carbonate 300 mg (750 mg) 900 mg PO DAILY PRN #270 tab 01/29/21 03/29/21 Rx chewable tablet cholecalciferol (vitamin D3) 50 2,000 unit PO TID #270 cap 01/29/21 03/29/21 Rx mcg (2,000 unit) capsule (Vitamin D3) famotidine 20 mg tablet 20 mg PO QAM #90 tab 01/29/21 03/29/21 Rx multivitamin 1 tab PO QAM #90 tab 01/29/21 03/29/21 Rx quetiapine 400 mg tablet 400 mg PO HS #90 tab 01/29/21 03/29/21 Rx sertraline 100 mg tablet 200 mg PO DAILY #180 tab 01/29/21 03/29/21 Rx trazodone 150 mg tablet 150 mg PO HS #90 tab 01/29/21 03/29/21 Rx gabapentin 300 mg capsule 300 mg PO TID #270 cap 01/31/21 03/29/21 Rx allopurinol 100 mg tablet 100 mg PO BID #180 tab 02/03/21 03/29/21 Rx amiloride 5 mg tablet 5 mg PO DAILY #90 tab 02/17/21 03/29/21 Rx nortriptyline 50 mg capsule 150 mg PO HS #270 cap 02/17/21 03/29/21 Rx duloxetine 30 mg capsule,delayed 30 mg PO QAM #90 cap 02/19/21 03/29/21 Rx release acetaminophen 500 mg tablet 1,000 mg PO Q4H PRN #90 tab 03/20/21 03/29/21 Rx metoclopramide HCl 5 mg tablet 5 mg PO QID PRN #90 tab 03/20/21 03/29/21 Rx albuterol sulfate 2.5 mg INHALATION Q6H #180 ml 03/21/21 03/29/21 Rx cyclobenzaprine 5 mg tablet 5 mg PO TID PRN #30 tab 03/25/21 03/29/21 Rx furosemide 20 mg tablet (Lasix) 40 mg PO BID #90 tab 03/25/21 03/29/21 Rx sulfamethoxazole 800 1 tab PO BID 10 Days #20 tab 11/09/21 11/13/21 Rx mg-trimethoprim 160 mg tablet (Bactrim DS) Past Med/Surg History Medical History Acid reflux Allergic rhinitis Arthritis Asthma Bilateral lower extremity edema (~08/2020) Chronic back pain Chronic cutaneous venous stasis ulcer CKD (chronic kidney disease) stage 3, GFR 30-59 ml/min Congenital kidney disease Degenerative joint disease, shoulder, right Depression with anxiety Gout History of CVA (cerebrovascular accident) Hyperlipidemia Hypertension Left leg weakness Lumbar spinal stenosis Lymphedema MRSA (methicillin resistant staph aureus) culture positive Other ovarian cyst, left side Peripheral neuropathy Prediabetes Recurrent cellulitis of lower leg TIA (transient ischemic attack) Vitamin D deficiency Surgical History H/O total knee replacement H/O ventral hernia repair History of appendectomy History of carpal tunnel release History of cholecystectomy S/P tonsillectomy and adenoidectomy Status post total shoulder arthroplasty (10/17/18) Family History Mother Diabetes Gallbladder disease Hypertension Coronary heart disease Myocardial infarction S/P CABG x 3 Sister Hodgkins lymphoma Brother Kidney disease Grandmother Breast cancer Aunt Ovarian cancer Father Peripheral vascular disease Daughter Diabetes Other Cancer Denies family history of Prostate cancer Colorectal cancer Social History Smoking Status: Never smoker Age Started Using Tobacco: 22; Age Quit Using Tobacco: 24; Years Smoked: 2; Second Hand Exposure: No; Hx Alcohol Use: No Hx Substance Use: No Preferred Language: Afghan 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 Ability: Effective Visual Impairment: Limited Hearing Ability: Normal [employer] Required: No Beliefs That Will Affect Care: Baptism Baptism Beliefs: Hinduism marital status details: ; lives with parents & 1 daughter Current Living Situation: Family Current Living Situation Comment: Lives in [place] current occupational status: disabled other: 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; 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 Feels Safe at Home: Yes Childhood Exposure to Second-Hand Smoke: No caffeine: Yes Dental Care, Regularly: No Physical Activity Frequency: Does not Exercise Seatbelt Use: always Sunscreen Use: Yes Results & Data Results & Data ([facility]) Vital Signs (Past 12 Hours) Vital Signs Temp Pulse Pulse Resp BP BP Pulse Ox 03/29/21 08:00 80 20 150/104 H 93 03/29/21 07:01 80 18 117/100 94 03/29/21 04:30 84 L 03/29/21 03:20 36.7 C 83 20 120/98 95 Code Status & VTE Plan VTE Prophylaxis Plan VTE Prophylaxis will be ordered: Yes PG Care Time/CCT Total # of Minutes Spent Total Time Spent with Patient: Total time spent is greater than 50% in coordination of care (as documented) at patient's floor/unit and/or counseling patient: Coding
--- NOTE | 2021-03-29 10:49 | XRay Report ---
XR chest 1V portable CLINICAL HISTORY: weakness. Evaluate cardiopulmonary status COMPARISON STUDY: 10/24/2020 TECHNIQUE: 1 view of the chest FINDINGS: Single frontal view of the chest demonstrates the cardiomediastinal silhouette to be within normal li mits. There is a decreased inspiratory effort with elevation of the hemidiaphragms and crowding of th e bronchovascular markings at the lung bases and centrally. The lungs are clear of alveolar opacities . There is no evidence for pleural effusion. There is no evidence for vascular congestion. There is n o acute osseous pathology. IMPRESSION: There is a decreased inspiratory effort with otherwise no acute chest disease. ACT 112: Negative or not required by law. Electronically signed by: Ry Hamm M.D. 03/29/2021 10:47 AM
--- NOTE | 2021-03-29 10:50 | XRay Report ---
XR ankle LT min 3V routine CLINICAL HISTORY: fall. Left ankle pain COMPARISON STUDY: 10/24/2020 TECHNIQUE: 3 left ankle views FINDINGS: Bones: There is no evidence for an acute fracture or dislocation. There is a small calcaneal spur at the origin of the plantar fascia. There is no lytic or blastic lesion. Joints: The joint spaces are maintained. The bones are in anatomic alignment. Soft tissues: There is diffuse soft tissue swelling surrounding the ankle which appears to relate to the patient's body habitus. There is no radiopaque foreign body. IMPRESSION: No acute osseous pathology. ACT 112: Negative or not required by law. Electronically signed by: Ry Hamm M.D. 03/29/2021 10:49 AM
[2021-03-29 11:28] LABS: Creatine Kinase 227 U/L (26-192)
[2021-03-29] MEDS ORDERED: ONDANSETRON INJ 2 MG/ML 2 ML VIAL IV PRN (15:48)
--- NOTE | 2021-03-29 15:57 | 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 Note ---
Date of Service: March 29, 2021 Spoke with admitting provider regarding concern for extensive psychiatric medication polypharmacy and could this be contributing to recent medical chall enges. Plan for full consult but for now based on review of medications and recent family medicine PCP appointment it appears she has been taking: -abilify 2 mg qd -seroquel 400 mg qhs -Wellbutrin XL 300mg qd -trazodone 150mg qhs -sertraline 200mg qd -cymbalta 30 mg qd -buspar 15 mg TID -nortriptyline 150mg qhs -gabapentin 300mg TID Will attempt to verify with patient's psychiatrist on Wednesday when the office is open if she signs TEENA. For now will go off of most recent [facility] med note. Appears psych history of depression and anxiety. Given extensive use of multiple high doses of SSRI/SNRI/buspar/trazodone and then also nortriptyline there is certainly concern for serotonin syndrome on this regimen. Additionally it's unclear what the indication would be for the use of an antipsychotic and if it is being used for depression augmentation then certainly should only be using one medication within this class (there is no data to suggest that dual antipsychotic therapy has any benefit and rather just increases side effect burden and risks). Therefore recommend the following psych medications for current hospitalization: -c/w abilify 2mg qd -c/w wellbutrin xl 300mg qd -decrease trazodone to 50 mg qhs -decrease sertraline to 100 mg qd and then after two days decrease to 50mg and then after 2 more days stop -c/w cymbalta 30 mg qd -hold buspar for now -hold seroquel for now -can c/w nortriptyline and gabapentin if felt to be helpful for nerve pain, otherwise would discontinue Will see for full psych consult tomorrow
[2021-03-29] MEDS ORDERED: metOLazone 5 MG TABLET PO ONE (16:30)
[2021-03-29] MEDS: ACETAMINOPHEN 325 MG TAB PO PRN (16:38)
[2021-03-29] MEDS: ARIPIprazole 1 MG/ML ORAL SOLN 150 ML BTL PO SCH (17:16)
[2021-03-29] MEDS: CHOLECALCIFEROL 1,000 UNITS 25 MCG TAB PO SCH ×2 (17:17→21:21)
[2021-03-29] MEDS: aMILoride HCL 5 MG TAB PO SCH (17:17)
[2021-03-29] MEDS: FAMOTIDINE 20 MG TAB PO SCH (17:17)
[2021-03-29] MEDS: busPIRone 15 MG TAB PO SCH ×2 (17:17→20:39)
[2021-03-29] MEDS: BISOPROLOL FUMARATE 5 MG TAB PO SCH (17:17)
[2021-03-29] MEDS: buPROPion XL 300 MG TABCR PO SCH (17:17)
[2021-03-29] MEDS: GABAPENTIN 300 MG CAP PO SCH ×2 (17:18→21:21)
[2021-03-29] MEDS: ATORVASTATIN 40 MG TAB PO SCH (17:18)
[2021-03-29] MEDS: ASPIRIN 81 MG ECTAB PO SCH (17:18)
[2021-03-29] MEDS: PANTOprazole 40 MG TAB PO SCH (17:18)
[2021-03-29] MEDS: FUROSEMIDE 40 MG TAB PO SCH (17:19)
[2021-03-29] MEDS: DULoxetine HCL 30 MG CAP PO SCH (17:19)
[2021-03-29] MEDS: SERTRALINE HCL 100 MG TABLET PO SCH (17:19)
[2021-03-29] MEDS: CLOPIDOGREL BISULFATE 75 MG TAB PO SCH (17:19)
[2021-03-29] MEDS: ENOXAPARIN INJ 40 MG/0.4 ML SYR SQ SCH (17:20)
[2021-03-29] MEDS: CYANOCOBALAMIN 500 MCG TABLET (VITAMIN B-12) PO SCH (17:20)
--- NOTE | 2021-03-29 18:13 | XRay Report ---
XR KUB/Abdomen 1 view CLINICAL HISTORY: urinary retention- ? stool burden. COMPARISON STUDY: No previous studies for comparison. TECHNIQUE: Single view of the abdomen. FINDINGS: The bowel gas pattern is within normal limits without evidence for dilatation or obstruction. There i s no significant fecal stasis. There is evidence for hepatomegaly with the tip of the liver extending below the iliac crest. No abnormal calcifications are seen along the course of the urinary tracts bi laterally. No acute osseous pathology. IMPRESSION: 1.No acute intra-abdominal abnormality. No evidence for fecal stasis. ACT 112: Negative or not required by law. Electronically signed by: Ry Hamm M.D. 03/29/2021 6:11 PM
--- NOTE | 2021-03-29 18:31 | History & Physical Report ---
Date of Service March 29, 2021 Assessment & Plan (1) Ambulatory dysfunction: Plan: I believe that her ambulatory dysfunction is mostly in part due to her habitus In addition, she is on multiple psychiatric medications that could be contributing to her ambulatory dysfunction. She is on multiple antipsychotics (trazodone, Abilify, and Seroquel), and SSRI and SNRI (Zoloft and Cymbalta) in addition to gabapentin, nortriptyline, BuSpar, and Wellbutrin. I have consulted psychiatry to help guide transition/de-escalation of these medications as some of these have unfavorable side effects that could be contributing to her increasing weight and swelling. Appreciate recommendations I do not see any evidence of infection or metabolic cause to her ambulatory dys function other than possibly polypharmacy (2) Bilateral lower extremity edema: Plan: Likely related to her morbid obesity but also her ANDRZEJ and noncompliance with her CPAP is likely contributing to this Continue her Lasix with 1 dose of Zaroxolyn. Will potentially give additional doses pending response (3) ANDRZEJ (obstructive sleep apnea): Plan: CPAP while she is here She reports that her CPAP was recalled. We will try to attempt setting her up with a new machine upon discharge (4) CKD (chronic kidney disease) stage 3, GFR 30-59 ml/min: Plan: At baseline Renally adjust medications when needed (5) Hypertension: Plan: Continue Amaryl ride, bisoprolol as prior to hospitalization (6) Hyperlipidemia: Plan: Continue Lipitor as prior to hospitalization (7) Depression with anxiety: Plan: As reported above patient is on multiple antipsychiatric medications that are likely contributing to her falls (due to polypharmacy) I have consulted psych to help adjust these medications. Appreciate recommendations (8) Asthma: Plan: Patient with a history of asthma. We will continue her Singulair I suspect she likely has a big component of obesity hypoventilation syndrome Plan: Full code Lovenox for DVT prophylaxis Consult PT/OT Admission and Anticipated Discharge Date Admission Date: March 29, 2021 History of Present Illness Chief Complaint: Cannot walk Primary Care Provider: Etelvina Cazares DO Mrs. Tristan is a 60-year-old white female who is morbidly obese. She has a PMHx of morbid obesity, chronic lymphedema, ANDRZEJ (not using her CPAP), CKD, asthma (although I suspect is likely obesity hypoventilation syndrome), HTN, HLD, peripheral neuropathy, mixed anxiety depression and chronic low back pain. She was brought to the emergency department today due to the inability to walk. She has chronic lymphedema and takes Lasix 80 mg daily. Despite this, reports increasing swelling of her legs which is prohibiting her ability to walk. She came to the ED where she was found to be hemodynamically stable and not hypoxic. Her lab data was unremarkable (creatinine 1.32 which is her baseline). She does have a slightly elevated CK at 222 but otherwise the rest of her lab data was unremarkable. Her Covid test was negative. Chest x-ray was negative. A Phillips catheter was inserted that yielded 1500 cc. Patient reports that she did not feel the urge to urinate and has not been having difficulty urinating. She was found to have multiple wounds of her bilateral lower extremities that were covered in dog care. She reports that these are chronic and she was to see the wound clinic this upcoming week to establish care. She denies fevers, chills, or mucopurulent drainage of the legs. She was unable to ambulate and was an unsafe discharge from the ED thus was hospitalized for further evaluation and care. Allergies Allergy/AdvReac Type Severity Reaction Status Date / Time Corticosteroids Allergy Intermediate RASH Verified 03/25/21 15:28 (Glucocorticoids) morphine Allergy Intermediate MOUTH Verified 03/25/21 15:28 SWELLS/FACE SWELLS orange Allergy Intermediate HIVES Verified 03/25/21 15:28 Penicillins Allergy Intermediate RASH/HIVES Verified 03/25/21 15:28 prednisone Allergy Intermediate RED RASH Verified 03/25/21 15:28 pregabalin Allergy Intermediate GOOFY Verified 03/25/21 15:28 zolpidem Allergy Intermediate UNSURE Verified 03/25/21 15:28 orange (food color) Allergy Mild rash Verified 03/25/21 15:28 Home Medications Medication Instructions Recorded Confirmed Type clopidogrel 75 mg tablet (Plavix) 75 mg PO DAILY #90 tab 05/21/20 03/29/21 Rx cyanocobalamin (vitamin B-12) 1,000 mcg PO DAILY #30 tab 09/25/20 03/29/21 Rx 1,000 mcg tablet (Vitamin B-12) pantoprazole 40 mg tablet,delayed 40 mg PO QAM #30 tab 11/04/20 03/29/21 Rx release montelukast 10 mg tablet 10 mg PO PM #90 tab 11/12/20 03/29/21 Rx bisoprolol fumarate 5 mg tablet 5 mg PO DAILY #90 tab 11/14/20 03/29/21 Rx mupirocin 2 % topical ointment 1 applic TOPICAL BID #30 g 01/15/21 03/29/21 Rx albuterol sulfate 90 mcg/actuation 2 puff INHALATION Q4H PRN #18 gm 01/27/21 03/29/21 Rx aerosol inhaler (Ventolin HFA) aspirin 81 mg tablet,delayed 81 mg PO QAM #90 tab 01/29/21 03/29/21 Rx release atorvastatin 40 mg tablet 40 mg PO DAILY #90 tab 01/29/21 03/29/21 Rx bupropion HCl 300 mg 24 hr tablet, 300 mg PO QAM #90 tab 01/29/21 03/29/21 Rx extended release calcium carbonate 300 mg (750 mg) 900 mg PO DAILY PRN #270 tab 01/29/21 03/29/21 Rx chewable tablet cholecalciferol (vitamin D3) 50 2,000 unit PO TID #270 cap 01/29/21 03/29/21 Rx mcg (2,000 unit) capsule (Vitamin D3) famotidine 20 mg tablet 20 mg PO QAM #90 tab 01/29/21 03/29/21 Rx multivitamin 1 tab PO QAM #90 tab 01/29/21 03/29/21 Rx gabapentin 300 mg capsule 300 mg PO TID #270 cap 01/31/21 03/29/21 Rx allopurinol 100 mg tablet 100 mg PO BID #180 tab 02/03/21 03/29/21 Rx nortriptyline 50 mg capsule 150 mg PO HS #270 cap 02/17/21 03/29/21 Rx duloxetine 30 mg capsule,delayed 30 mg PO QAM #90 cap 02/19/21 03/29/21 Rx release acetaminophen 500 mg tablet 1,000 mg PO Q4H PRN #90 tab 03/20/21 03/29/21 Rx metoclopramide HCl 5 mg tablet 5 mg PO QID PRN #90 tab 03/20/21 03/29/21 Rx albuterol sulfate 2.5 mg INHALATION Q6H #180 ml 03/21/21 03/29/21 Rx amiloride 5 mg tablet 5 mg PO DAILY #90 tab 04/02/21 03/29/21 Rx ciprofloxacin HCl 0.3 % eye drops 1 drp OPR Q4HWA 5 Days #1 btl 04/02/21 Rx furosemide 20 mg tablet (Lasix) 40 mg PO BID #90 tab 04/02/21 03/29/21 Rx sertraline 100 mg tablet 50 mg PO DAILY 5 Days #5 tab 04/02/21 Rx trazodone 50 mg tablet 50 mg PO HS #30 tab 04/02/21 Rx Past Med/Surg History Medical History (Updated 04/02/21 @ 09:51 by Candido Bethea) Acid reflux Allergic rhinitis Arthritis Asthma Bilateral lower extremity edema (~08/2020) Chronic back pain Chronic cutaneous venous stasis ulcer CKD (chronic kidney disease) stage 3, GFR 30-59 ml/min 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; 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- DISCOVERED WITH INCIDENTAL IMAGING Degenerative joint disease, shoulder, right Depression with anxiety Gout History of CVA (cerebrovascular accident) Hyperlipidemia Hypertension Left leg weakness Lumbar spinal stenosis Lymphedema MDD (major depressive disorder), recurrent episode, moderate MRSA (methicillin resistant staph aureus) culture positive Other ovarian cyst, left side Peripheral neuropathy Prediabetes Recurrent cellulitis of lower leg TIA (transient ischemic attack) 2017- ON PLAVIX Vitamin D deficiency Surgical History H/O total knee replacement B/L H/O ventral hernia repair History of appendectomy History of carpal tunnel release B/L History of cholecystectomy S/P tonsillectomy and adenoidectomy Status post total shoulder arthroplasty (10/17/18) R Family History Mother Diabetes Gallbladder disease Hypertension Coronary heart disease Myocardial infarction S/P CABG x 3 Sister Hodgkins lymphoma Brother Kidney disease Grandmother Breast cancer Aunt Ovarian cancer Father , 02/11/20. 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 Beliefs That Will Affect Care: Scientology Scientology Beliefs: Jew marital status details: ; lives with parents & 1 daughter Current Living Situation: Family Current Living Situation Comment: daughter and mom current occupational status: disabled other: worked in [employer] in [employer]; 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 Feels Safe at Home: Yes Childhood Exposure to Second-Hand Smoke: No caffeine: Yes Dental Care, Regularly: No Physical Activity Frequency: Does not Exercise Seatbelt Use: always Sunscreen Use: Yes Assistive Devices: Walker Review of Systems Review of Systems: All systems reviewed and are unremarkable except as noted in HPI and below Denies fevers, chills, headache, nasal congestion, sore throat, cough, chest pain, shortness of breath, palpitations, orthopnea, PND, abdominal pain, nausea, vomiting, diarrhea, constipation, dysuria, hematuria, frequency, back pain, joint pain, easy bruising or bleeding, skin lesions or Physical Exam Physical Exam: General: Resting comfortably in her hospital bed. NAD. HEENT: Head is AT/NC buccal mucosa is moist and pink Neck: Difficult to assess for JVD or hepatojugular reflex due to size of the neck and girth Cardiac: Very distant heart sounds but appears RRR Lungs: Very diminished/distant due to habitus without W/R/R Abdomen: Normoactive X4. Abdomen morbidly obese and difficult to examine. Does not appear to be tender throughout Extremities: Significant lymphedema of the bilateral lower extremities with associated 2+ pitting edema. She does have serous drainage from the legs with multiple superficial wounds that do not have any mucopurulent drainage. They do not appear to be actively infected Neuro: A&O X4 cranial nerves II through XII are grossly intact no focal neuro deficits Skin: See above Psych: Appropriate affect pleasant and cooperative Results & Data Results & Data ([facility]) Vital Signs (Past 12 Hours) Vital Signs Temp Pulse Pulse Pulse Resp BP Pulse Ox 03/29/21 15:50 36.4 C L 84 20 148/81 H 98 03/29/21 15:14 85 20 137/75 98 03/29/21 13:29 76 20 147/75 H 97 03/29/21 13:00 80 20 97 03/29/21 10:00 80 20 139/92 93 03/29/21 08:00 80 20 150/104 H 93 03/29/21 07:01 80 18 117/100 94 Laboratory Results 03/29/21 05:35 03/29/21 05:35 Covid: Negative TSH: 2.6 INR: 1.0 CK: 222 Urinalysis is negative for nitrites and leukocytes Diagnostic Findings CXR: No acute cardiopulmonary process Code Status & VTE Plan VTE Prophylaxis Plan VTE Prophylaxis will be ordered: Yes Supervising Physician Co-Signing Physician Notes Attending note: patient seen and examined with Candelaria TAYLOR. I agree with her assessment and plan, history, ROS and examination. I personally reviewed labs and imaging. I discussed the case with the ED physician. patient feeling better after phillips drained 1500mL of urine, no further abdominal discomfort - Urinary retention: 1500mL, keep phillips, would keep for 10-14 days as bladder likely over distended and would not be able to contract properly for some time - Polypharmacy: patient takes numerous psychiatric medications, can likely be tapered back, will consult psychiatry for their recommendations lives with her elderly mother who cannot lift her or provide care, will get PT/OT assessments to make sure she is strong enough for home, may need rehab PG Care Time/CCT Total # of Minutes Spent Total Time Spent with Patient: Total time spent is greater than 50% in coordination of care (as documented) at patient's floor/unit and/or counseling patient: Coding Level of Care Code 94776 Initial Inpt Care Lvl 3 Diagnoses Ambulatory dysfunction R26.2 Bilateral lower extremity edema R60.0 ANDRZEJ (obstructive sleep apnea) G47.33 CKD (chronic kidney disease) stage 3, GFR 30-59 ml/min N18.32 Chronic kidney disease stage 3 subtype: stage 3b (GFR 30-44) Hypertension I10 Hyperlipidemia E78.5 Depression with anxiety F41.8 Asthma J45.30 Asthma complication type: uncomplicated Asthma persistence: persistent Asthma severity: mild (1) CKD (chronic kidney disease) stage 3, GFR 30-59 ml/min Chronic kidney disease stage 3 subtype: stage 3b (GFR 30-44) Qualified Code(s): N18.32 - Chronic kidney disease, stage 3b (2) Asthma Asthma complication type: uncomplicated Asthma persistence: persistent Asthma severity: mild Qualified Code(s): J45.30 - Mild persistent asthma, uncomplicated
[2021-03-29] MEDS: NORTRIPTYLINE HCL 25 MG CAP PO SCH (20:37)
[2021-03-29] MEDS: allopurinoL 100 MG TAB PO SCH (20:38)
[2021-03-29] MEDS: MONTELUKAST SODIUM 10 MG TABLET PO SCH (20:38)
[2021-03-29] MEDS: MUPIROCIN 2% OINT 22 GM TUBE EXT SCH (20:39)
[2021-03-29] MEDS ORDERED: traZODone HCL 50 MG TAB PO SCH (21:00)
[2021-03-29] MEDS ORDERED: QUEtiapine FUMARATE 200 MG TAB PO SCH (21:00)
[2021-03-29] MEDS ORDERED: FUROSEMIDE 40 MG TAB PO SCH (21:00)
--- NOTE | 2021-03-30 07:14 | Electrocardiogram Report ---
Test Reason : Blood Pressure : / mmHG Vent. Rate : 081 BPM Atrial Rate : 081 BPM P-R Int : 220 ms QRS Dur : 094 ms QT Int : 410 ms P-R-T Axes : 044 -30 144 degrees QTc Int : 476 ms Sinus rhythm with 1st degree A-V block Left axis deviation Low voltage QRS Inferior infarct Possible Anterior infarct Abnormal ECG When compared with ECG of 24-OCT-2020 20:08, NV interval has increased Confirmed by Jai Watkins ([id number]) on 03/30/2021 7:14:04 AM Referred By: Confirmed By:Jai Watkins
[2021-03-30] MEDS ORDERED: PERFLUTREN LIPID MICROSPHERE (DEFINITY) IV ONE (07:46)
[2021-03-30] MEDS: aMILoride HCL 5 MG TAB PO SCH (08:12)
[2021-03-30] MEDS: BISOPROLOL FUMARATE 5 MG TAB PO SCH (08:12)
[2021-03-30] MEDS: CYANOCOBALAMIN 500 MCG TABLET (VITAMIN B-12) PO SCH (08:12)
[2021-03-30] MEDS: buPROPion XL 300 MG TABCR PO SCH (08:13)
[2021-03-30] MEDS: DULoxetine HCL 30 MG CAP PO SCH (08:13)
[2021-03-30] MEDS: ARIPIprazole 1 MG/ML ORAL SOLN 150 ML BTL PO SCH (08:13)
[2021-03-30] MEDS: GABAPENTIN 300 MG CAP PO SCH ×3 (08:13→20:13)
[2021-03-30] MEDS: CLOPIDOGREL BISULFATE 75 MG TAB PO SCH (08:13)
[2021-03-30] MEDS: ASPIRIN 81 MG ECTAB PO SCH (08:13)
[2021-03-30] MEDS: CHOLECALCIFEROL 1,000 UNITS 25 MCG TAB PO SCH ×3 (08:13→20:14)
[2021-03-30] MEDS: PANTOprazole 40 MG TAB PO SCH (08:13)
[2021-03-30] MEDS: SERTRALINE HCL 100 MG TABLET PO SCH (08:13)
[2021-03-30] MEDS: busPIRone 15 MG TAB PO SCH ×2 (08:13→13:09)
[2021-03-30] MEDS: allopurinoL 100 MG TAB PO SCH ×2 (08:13→20:13)
[2021-03-30] MEDS: ATORVASTATIN 40 MG TAB PO SCH (08:13)
[2021-03-30] MEDS: FAMOTIDINE 20 MG TAB PO SCH (08:13)
[2021-03-30] MEDS: MUPIROCIN 2% OINT 22 GM TUBE EXT SCH ×2 (08:13→20:15)
[2021-03-30] MEDS: FUROSEMIDE 40 MG TAB PO SCH ×2 (08:14→17:52)
[2021-03-30] MEDS: ENOXAPARIN INJ 40 MG/0.4 ML SYR SQ SCH ×2 (08:14→20:15)
[2021-03-30] MEDS: ACETAMINOPHEN 325 MG TAB PO PRN (08:19)
--- NOTE | 2021-03-30 09:59 | XCELERA ---
[id number]
[2021-03-30 11:11] LABS: Hematocrit (blood only) 35.6 % (37-47); Hemoglobin 10.7 g/dL (12.0-16.0); Mean Corpuscular Hemoglobin 24.7 pg (25-34); Mean Corpuscular Hgb Conc 30.1 g/dL (32-36); Mean Corpuscular Volume 82.2 fL (80-100); Mean Platelet Volume 9.9 fL (7.4-10.4); Platelet Count 244 K/uL (130-400); RDW Coefficient of Variation 17.2 % (11.5-14.5); RDW Standard Deviation 52.1 fL (36.4-46.3); Red Blood Count 4.33 M/uL (4.2-5.4); White Blood Count 8.11 K/uL (4.8-10.8)
[2021-03-30 11:31] LABS: BUN Creatinine Ratio 7.1 (10-20); Calcium 8.8 mg/dl (8.5-10.1); Creatinine Clr Calc Pharmacy 80.9 ml/min; Est GFR (Non-African American) 43.2 ml/min; Potassium 3.8 mmol/L (3.5-5.1)
--- NOTE | 2021-03-30 13:25 | Psychiatric Consultation ---
Date of Consultation March 30, 2021 Impression / Recommendations Impression 60 yo woman with psych history of depression and anxiety and one prior psychiatric hospitalization (>10 years ago) who was admitted for mobility challenges and lymphedema. Psychiatry was consulted for recommendations regarding her psychiatric medication management. Diagnostically consistent with MDD and likely RAGHU. She has a long history of depression but no history of psychotic features or primary psychotic disorders nor inez. As noted in supplemental note yesterday-she was at very high risk for serotonin syndrome given extensive psychiatric polypharmacy and there remains no justifiable indication for dual antipsychotic treatment. Also given her low motivation, low energy, and metabolic disorder likely now impacting her ability to ambulate this is even more reason to remove any potential medications that can contribute negatively to weight gain and metabolic side effects. Discussed all psychiatric medication changes which she agreed with. Encouraged outpatient therapy to help address ongoing depression which she agrees to, psych liason will attempt to find her a provider. Also discussed trying to set her up with outpt psych follow-up given that she hasn't seen her provider in over a y ear. Discussed that after 3-4 weeks of reduced medication regimen and after starting therapy, if symptoms persist her outpatient providers could consider increasing cymbalta and after maximizing if symptoms persisted could maximize Wellbutrin. Would not add any other psychiatric medications. She is not deemed to be at acute risk of harm to self given denial of SI and no history of past attempts. Appropriate for outpatient level of psychiatric care. (1) MDD (major depressive disorder), recurrent episode, moderate: -discontinue prior to admission medications of buspar, abilify and seroquel; tapering to discontinuation sertraline and reducing trazodone -wellbutrin xl 300mg qd -cymbalta 30 mg qd -trazodone from 150 mg to 50 mg qhs -nortriptyline 150 mg hs -gabapentin 300 mg TID -discontinue abilify 2mg qd -decrease sertraline to 100 mg qd and then on 04/01 decrease to 50mg and then on 04/03 stop -d/c'd buspar -d/c'd seroquel Risk Factors Assessment Do You Have Access To A Gun?: No Previous Attempt: No Protective Factors Assessment Stable Relationships: Yes Supportive Family: Yes Psych History Identifying Data 60 yo woman with psych history of depression and anxiety and one prior psychiatric hospitalization (>10 years ago) who was admitted for mobility challenges and lymphedema. Psychiatry was consulted for recommendations regarding her psychiatric medication management. Chief Complaint "I've been depressed for a long time". History of Present Illness Trevor describes a long history of depression with symptoms of low energy, low motivation, low mood which she thinks do contribute to some of her challenges getting up and moving around at home. Confirmed with her that she had been taking multiple psychiatric medications prior to admission and all at the same time. She noted that she has not seen her psychiatric provider in over a year but that the office has been providing her with refills for her medications. She acknowledges multiple depressive symptoms with PHQ-9 score of 16-highest for anhedonia and low mood as well as sleep, appetite and energy level changes. She answered no to q9 and again denies any thoughts of SI. She can speak to reasons to live and has no access to guns (daughter has them locked away). No substance use and no significant family psychiatric history. Reviewed her medications with her and the changes I recommended. She agreed with this as well with the plan to discontinue abilify. She has not found her medications to be helpful with the exception of cymbalta, nortriptyline and gabapentin for nerve pain. No hx inez or psychosis. Appears antipsyhcotics were started for depression treatment augmentation. Past Psychiatric History Previous Psych History: see HPI Outpatient Services: psychiatrist through [facility], no therapist Do You Have Access To A Gun?: No Allergies Allergy/AdvReac Type Severity Reaction Status Date / Time Corticosteroids Allergy Intermediate RASH Verified 03/25/21 15:28 (Glucocorticoids) morphine Allergy Intermediate MOUTH Verified 03/25/21 15:28 SWELLS/FACE SWELLS orange Allergy Intermediate HIVES Verified 03/25/21 15:28 Penicillins Allergy Intermediate RASH/HIVES Verified 03/25/21 15:28 prednisone Allergy Intermediate RED RASH Verified 03/25/21 15:28 pregabalin Allergy Intermediate GOOFY Verified 03/25/21 15:28 zolpidem Allergy Intermediate UNSURE Verified 03/25/21 15:28 orange (food color) Allergy Mild rash Verified 03/25/21 15:28 Home Medications Medication Instructions Recorded Confirmed Type clopidogrel 75 mg tablet (Plavix) 75 mg PO DAILY #90 tab 05/21/20 03/29/21 Rx cyanocobalamin (vitamin B-12) 1,000 mcg PO DAILY #30 tab 09/25/20 03/29/21 Rx 1,000 mcg tablet (Vitamin B-12) pantoprazole 40 mg tablet,delayed 40 mg PO QAM #30 tab 11/04/20 03/29/21 Rx release montelukast 10 mg tablet 10 mg PO PM #90 tab 11/12/20 03/29/21 Rx bisoprolol fumarate 5 mg tablet 5 mg PO DAILY #90 tab 11/14/20 03/29/21 Rx aripiprazole 2 mg tablet (Abilify) 2 mg PO DAILY #90 tab 12/02/20 03/29/21 Rx mupirocin 2 % topical ointment 1 applic TOPICAL BID #30 g 01/15/21 03/29/21 Rx albuterol sulfate 90 mcg/actuation 2 puff INHALATION Q4H PRN #18 gm 01/27/21 03/29/21 Rx aerosol inhaler (Ventolin HFA) aspirin 81 mg tablet,delayed 81 mg PO QAM #90 tab 01/29/21 03/29/21 Rx release atorvastatin 40 mg tablet 40 mg PO DAILY #90 tab 01/29/21 03/29/21 Rx bupropion HCl 300 mg 24 hr tablet, 300 mg PO QAM #90 tab 01/29/21 03/29/21 Rx extended release buspirone 15 mg tablet 15 mg PO TID #270 tab 01/29/21 03/29/21 Rx calcium carbonate 300 mg (750 mg) 900 mg PO DAILY PRN #270 tab 01/29/21 03/29/21 Rx chewable tablet cholecalciferol (vitamin D3) 50 2,000 unit PO TID #270 cap 01/29/21 03/29/21 Rx mcg (2,000 unit) capsule (Vitamin D3) famotidine 20 mg tablet 20 mg PO QAM #90 tab 01/29/21 03/29/21 Rx multivitamin 1 tab PO QAM #90 tab 01/29/21 03/29/21 Rx quetiapine 400 mg tablet 400 mg PO HS #90 tab 01/29/21 03/29/21 Rx sertraline 100 mg tablet 200 mg PO DAILY #180 tab 01/29/21 03/29/21 Rx trazodone 150 mg tablet 150 mg PO HS #90 tab 01/29/21 03/29/21 Rx gabapentin 300 mg capsule 300 mg PO TID #270 cap 01/31/21 03/29/21 Rx allopurinol 100 mg tablet 100 mg PO BID #180 tab 02/03/21 03/29/21 Rx amiloride 5 mg tablet 5 mg PO DAILY #90 tab 02/17/21 03/29/21 Rx nortriptyline 50 mg capsule 150 mg PO HS #270 cap 02/17/21 03/29/21 Rx duloxetine 30 mg capsule,delayed 30 mg PO QAM #90 cap 02/19/21 03/29/21 Rx release acetaminophen 500 mg tablet 1,000 mg PO Q4H PRN #90 tab 03/20/21 03/29/21 Rx metoclopramide HCl 5 mg tablet 5 mg PO QID PRN #90 tab 03/20/21 03/29/21 Rx albuterol sulfate 2.5 mg INHALATION Q6H #180 ml 03/21/21 03/29/21 Rx cyclobenzaprine 5 mg tablet 5 mg PO TID PRN #30 tab 03/25/21 03/29/21 Rx furosemide 20 mg tablet (Lasix) 40 mg PO BID #90 tab 03/25/21 03/29/21 Rx sulfamethoxazole 800 1 tab PO BID 10 Days #20 tab 03/25/21 03/29/21 Rx mg-trimethoprim 160 mg tablet (Bactrim DS) Family History none Substance Abuse History none Personal History Living Arrangements: Home Employment Status: Disabled Beliefs That Will Affect Care: Uatsdin Patient History Medical History (Updated 03/30/21 @ 13:14 by Myrna Shah MD) Acid reflux Allergic rhinitis Arthritis Asthma Bilateral lower extremity edema (~08/2020) Chronic back pain Chronic cutaneous venous stasis ulcer CKD (chronic kidney disease) stage 3, GFR 30-59 ml/min 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; 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- DISCOVERED WITH INCIDENTAL IMAGING Degenerative joint disease, shoulder, right Depression with anxiety Gout History of CVA (cerebrovascular accident) Hyperlipidemia Hypertension Left leg weakness Lumbar spinal stenosis Lymphedema MDD (major depressive disorder), recurrent episode, moderate MRSA (methicillin resistant staph aureus) culture positive Other ovarian cyst, left side Peripheral neuropathy Prediabetes Recurrent cellulitis of lower leg TIA (transient ischemic attack) 2017- ON PLAVIX Vitamin D deficiency Surgical History H/O total knee replacement B/L H/O ventral hernia repair History of appendectomy History of carpal tunnel release B/L History of cholecystectomy S/P tonsillectomy and adenoidectomy Status post total shoulder arthroplasty (10/17/18) R Family History Mother Diabetes Gallbladder disease Hypertension Coronary heart disease Myocardial infarction S/P CABG x 3 Sister Hodgkins lymphoma Brother Kidney disease Grandmother Breast cancer Aunt Ovarian cancer Father , 02/11/20. Peripheral vascular disease Daughter Diabetes Other Cancer Denies family history of Prostate cancer Colorectal cancer Social History Smoking Status: Former smoker Age Started Using Tobacco: 22; Age Quit Using Tobacco: 24; Years Smoked: 2; Second Hand Exposure: No; Do You Dip or Chew Tobacco: No; Tobacco Cessation Education Requested by Patient: No Hx Alcohol Use: No Hx Substance Use: No Preferred Language: Swedish 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 Ability: Effective Visual Impairment: Limited Hearing Ability: Normal Health Services Rn Required: No Beliefs That Will Affect Care: Uatsdin Uatsdin Beliefs: Mormon marital status details: ; lives with parents & 1 daughter Current Living Situation: Family Current Living Situation Comment: daughter and mom current occupational status: disabled Other Information That Helps Us Care for You: No other: 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; 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 Feels Safe at Home: Yes Safety Concerns: Feels Safe At This Time Childhood Exposure to Second-Hand Smoke: No caffeine: Yes Dental Care, Regularly: No Physical Activity Frequency: Does not Exercise Seatbelt Use: always Sunscreen Use: Yes Assistive Devices: Walker Physical Exam Psychiatric: Orientation: alert and oriented x 3 Apperance: appropriately dressed and appropriately groomed Eye Contact: good eye contact Motor Behavior: no abnormal motor movements Speech: normal rate/rhythm/volume of s peech Affect: + constricted affect Mood: + depressed mood and + anxious mood Thought Process: linear/logical thought process Thought Content: reality based without delusions Suicidal Thoughts: denies suicidal thoughts Homicidal Thoughts: denies homicidal thoughts Hallucinations: no auditory hallucinations and no visual hallucinations Cognition: recent memory grossly intact, remote memory grossly intact, attention grossly intact and language grossly intact Estimated Intelligence: consistent with education level Insight: + fair insight Judgement: + fair judgement Vital Signs (Past 24 Hours): Last Vital Signs Temp 36.6 C 03/30/21 08:16 Pulse 71 03/30/21 08:16 Resp 18 03/30/21 08:16 BP 120/70 03/30/21 08:16 Pulse Ox 96 03/30/21 08:16 Review of Systems All systems reviewed & are unremarkable except as noted in HPI & below Results & Data (PSY) Medications Administered Acetaminophen (Acetaminophen 325 Mg Tab) 650 mg PO Q4H PRN PRN Reason: pain/fever Stop: 04/28/21 15:47 Last Admin: 03/30/21 08:19 Dose: 650 mg Documented by: [id number] Admin: 03/29/21 16:38 Dose: 650 mg Documented by: [id number] Allopurinol (Allopurinol 100 Mg Tab) 100 mg PO BID [facility] Stop: 04/28/21 20:59 Last Admin: 03/30/21 08:13 Dose: 100 mg Documented by: [id number] Admin: 03/29/21 20:38 Dose: 100 mg Documented by: [id number] Amiloride HCl (Amiloride Hcl 5 Mg Tab) 5 mg PO DAILY [facility] Stop: 04/28/21 16:14 Last Admin: 03/30/21 08:12 Dose: 5 mg Documented by: [id number] Admin: 03/29/21 17:17 Dose: 5 mg Documented by: [id number] Aripiprazole (Aripiprazole 1 Mg/Ml Oral Soln 150 Ml Btl) 2 mg PO DAILY LEOBARDO Stop: 04/28/21 16:14 Last Admin: 03/30/21 08:13 Dose: 2 mg Documented by: [id number] Admin: 03/29/21 17:16 Dose: 2 mg Documented by: [id number] Aspirin (Aspirin 81 Mg Ectab) 81 mg PO QAM [facility]ARDO Stop: 04/28/21 16:29 Last Admin: 03/30/21 08:13 Dose: 81 mg Documented by: [id number] Admin: 03/29/21 17:18 Dose: 81 mg Documented by: [id number] Atorvastatin Calcium (Atorvastatin 40 Mg Tab) 40 mg PO DAILY [facility] Stop: 04/28/21 16:29 Last Admin: 03/30/21 08:13 Dose: 40 mg Documented by: [id number] Admin: 03/29/21 17:18 Dose: 40 mg Documented by: [id number] Bisoprolol Fumarate (Bisoprolol Fumarate 5 Mg Tab) 5 mg PO DAILY [facility]ARDO Stop: 04/28/21 16:29 Last Admin: 03/30/21 08:12 Dose: 5 mg Documented by: [id number] Admin: 03/29/21 17:17 Dose: 5 mg Documented by: [id number] Bupropion HCl (Bupropion Xl 300 Mg Tabcr) 300 mg PO QAM [facility] Stop: 04/28/21 16:29 Last Admin: 03/30/21 08:13 Dose: 300 mg Documented by: [id number] Admin: 03/29/21 17:17 Dose: 300 mg Documented by: [id number] Buspirone HCl (Buspirone 15 Mg Tab) 15 mg PO TID LEOBARDO Stop: 04/28/21 16:29 Last Admin: 03/30/21 08:13 Dose: 15 mg Documented by: [id number] Admin: 03/29/21 20:39 Dose: 15 mg Documented by: [id number] Admin: 03/29/21 17:17 Dose: 15 mg Documented by: [id number] Clopidogrel Bisulfate (Clopidogrel Bisulfate 75 Mg Tab) 75 mg PO DAILY [facility] Stop: 04/28/21 16:29 Last Admin: 03/30/21 08:13 Dose: 75 mg Documented by: [id number] Admin: 03/29/21 17:19 Dose: 75 mg Documented by: [id number] Cyanocobalamin (Cyanocobalamin 500 Mcg Tablet (Vitamin B-12)) 1,000 mcg PO DAILY [facility]OB[facility] Stop: 04/28/21 16:29 Last Admin: 03/30/21 08:12 Dose: 1,000 mcg Documented by: [id number] Admin: 03/29/21 17:20 Dose: 1,000 mcg Documented by: [id number] Duloxetine HCl (Duloxetine Hcl 30 Mg Cap) 30 mg PO QAM [facility] Stop: 04/28/21 16:29 Last Admin: 03/30/21 08:13 Dose: 30 mg Documented by: [id number] Admin: 03/29/21 17:19 Dose: 30 mg Documented by: [id number] Enoxaparin Sodium (Enoxaparin Inj 40 Mg/0.4 Ml Syr) 40 mg SQ Q12 [facility] Stop: 04/28/21 16:59 Last Admin: 03/30/21 08:14 Dose: 40 mg Documented by: [id number] Admin: 03/29/21 17:20 Dose: 40 mg Documented by: [id number] Famotidine (Famotidine 20 Mg Tab) 20 mg PO QAM [facility] Stop: 04/28/21 16:29 Last Admin: 03/30/21 08:13 Dose: 20 mg Documented by: [id number] Admin: 03/29/21 17:17 Dose: 20 mg Documented by: [id number] Furosemide (Furosemide 40 Mg Tab) 40 mg PO [id number] [facility] Stop: 04/28/21 16:59 Last Admin: 03/30/21 08:14 Dose: 40 mg Documented by: [id number] Admin: 03/29/21 17:19 Dose: 40 mg Documented by: [id number] Gabapentin (Gabapentin 300 Mg Cap) 300 mg PO TID LEOBARDO Stop: 04/28/21 16:29 Last Admin: 03/30/21 08:13 Dose: 300 mg Documented by: [id number] Admin: 03/29/21 21:21 Dose: 300 mg Documented by: [id number] Admin: 03/29/21 17:18 Dose: 300 mg Documented by: [id number] Montelukast Sodium (Montelukast Sodium 10 Mg Tablet) 10 mg PO PM [facility] Stop: 04/28/21 20:59 Last Admin: 03/29/21 20:38 Dose: 10 mg Documented by: [id number] Mupirocin (Mupirocin 2% Oint 22 Gm Tube) 1 appln EXT BID [facility] Stop: 04/28/21 20:59 Last Admin: 03/30/21 08:13 Dose: 1 appln Documented by: [id number] Admin: 03/29/21 20:39 Dose: 1 appln Documented by: [id number] Nortriptyline HCl (Nortriptyline Hcl 25 Mg Cap) 150 mg PO HS [facility]ARDO Stop: 04/28/21 20:59 Last Admin: 03/29/21 20:37 Dose: 150 mg Documented by: [id number] Pantoprazole Sodium (Pantoprazole 40 Mg Tab) 40 mg PO QAM [facility] Stop: 04/28/21 16:29 Last Admin: 03/30/21 08:13 Dose: 40 mg Documented by: [id number] Admin: 03/29/21 17:18 Dose: 40 mg Documented by: [id number] Quetiapine Fumarate (Quetiapine Fumarate 200 Mg Tab) 400 mg PO HS [facility] Stop: 04/28/21 20:59 Last Admin: 03/29/21 20:37 Dose: 400 mg Documented by: [id number] Sertraline HCl (Sertraline Hcl 100 Mg Tablet) 200 mg PO DAILY [facility] Stop: 04/28/21 16:29 Last Admin: 03/30/21 08:13 Dose: 200 mg Documented by: [id number] Admin: 03/29/21 17:19 Dose: 200 mg Documented by: [id number] Trazodone HCl (Trazodone Hcl 50 Mg Tab) 150 mg PO HS [facility] Stop: 04/28/21 20:59 Last Admin: 03/29/21 20:37 Dose: 150 mg Documented by: [id number] Vitamin D (Cholecalciferol 1,000 Units 25 Mcg Tab) 2,000 units PO TID [facility] Stop: 04/28/21 16:29 Last Admin: 03/30/21 08:13 Dose: 2,000 units Documented by: [id number] Admin: 03/29/21 21:21 Dose: 2,000 units Documented by: [id number] Admin: 03/29/21 17:17 Dose: 2,000 units Documented by: [id number] Coding Level of Care Code 24994 Inpt Consult Level 3 Diagnoses MDD (major depressive disorder), recurrent episode, moderate F33.1
--- NOTE | 2021-03-30 18:01 | Hospitalist Progress Note ---
Date of Service March 30, 2021 Assessment & Plan (1) Ambulatory dysfunction: Plan: I believe that her ambulatory dysfunction is mostly in part due to her habitus In addition, I believe polypharmacy may be contributing to her ambulatory dysfunction she is on multiple antipsychotics (trazodone, Abilify, and Seroquel), and SSRI and SNRI (Zoloft and Cymbalta) in addition to gabapentin, nortriptyline, BuSpar, and Wellbutrin. I have consulted psychiatry to help guide transition/de-escalation of these medications as some of these have unfavorable side effects that could be contributing to her increasing weight and swelling. Appreciate recommendations I do not see any evidence of infection or metabolic cause to her ambulatory dysfunction other than possibly polypharmacy Of note, Bales catheter was inserted while patient was in the emergency department not for retention issues but seemed mostly for convenience. At any rate, this yielded 1500 cc which was alarming. Patient was not complaining of urinary retention. A KUB was done showing no obstructing pattern/stool burden that would cause urinary retention. At any rate, and discussion with her and her routineshe reports that she only voids approximately 3 times a day. I suspect her bladder has been stretched and can likely hold large volumes. Given her habitus, she is not likely getting up to the bathroom often so this is probably normal for her. Will DC Bales catheter and monitor output. Nursing staff can bladder scan if needed (2) Bilateral lower extremity edema: Plan: Likely related to her morbid obesity but also her ANDRZEJ and noncompliance with her CPAP is likely contributing to this Continue her usual dose of Lasix Did receive 1 dose of Zaroxolyn which seemed to have helped her lower extremity edema greatly but this is all lymphedema/habitus related Did obtain an echocardiogram that shows a preserved EF of 60 to 65% with no regional wall motion abnormalities however her right ventricle appears severely dilated (likely due to obesity hypoventilation syndrome) (3) ANDRZEJ (obstructive sleep apnea): Plan: CPAP while she is here She reports that her CPAP was recalled--she likely has obesity hypoventilation syndrome and associated significant right heart strain because of this Would advise case management help with getting her set up with an updated CPAP (4) CKD (chronic kidney disease) stage 3, GFR 30-59 ml/min: Plan: At baseline Renally adjust medications when needed (5) Hypertension: Plan: Continue amiloride, bisoprolol as prior to hospitalization (6) Hyperlipidemia: Plan: Continue Lipitor as prior to hospitalization (7) Depression with anxiety: Plan: As reported above patient is on multiple antipsychiatric medications that are likely contributing to her falls (due to polypharmacy) I have consulted psych to help adjust these medications. Appreciate recommendations (8) Asthma: Plan: Patient with a history of asthma. We will continue her Singulair I suspect she likely has a big component of obesity hypoventilation syndrome Plan: Full code Lovenox for DVT prophylaxis PT/OT on board and recommending rehab. Consult case management Admission and Anticipated Discharge Date Admission Date: March 29, 2021 Subjective Patient seen on daily rounds today. Sitting upright in her wheelchair. Vocalizes no significant complaints or concerns. Reports that the "swelling in her legs is down greatly". She denies fevers, chills, chest pain, shortness of breath, abdominal pain, nausea or vomiting When inquiring further about her voiding, she reports that she only voids approximately 3 times a day and in large amounts. (Inquired as Bales catheter was inserted in the ED not because patient could not void but mostly for convenience but yielded 1500 cc which was a large amount and concerning). KUB showed no evidence of stool burden. Urinalysis is not grossly infected. I did reach out to psych regarding polypharmacy with antipsychotic medications and mood stabilizers. I believe this is likely contributing to her ambulatory dysfunction and weight gain/edema. Psych is helping with medication changes. Review of Systems Review of Systems: All systems reviewed and are unremarkable except as noted in HPI and below Denies fevers, chills, headache, nasal congestion, sore throat, cough, chest pain, shortness of breath, palpitations, orthopnea, PND, abdominal pain, nausea, vomiting, diarrhea, constipation, dysuria, hematuria, frequency, back pain, joint pain or swelling, easy bruising or bleeding, skin lesions or rashes. Physical Exam Physical Exam: General: Resting comfortably in her wheelchair. She is morbidly obese but does not appear to be in any acute distress NAD. HEENT: Head is AT/NC buccal mucosa is moist and pink Neck: No JVD. Negative hepatojugular reflex Cardiac: Very distant heart sounds likely due to habitus without M/G/R Lungs: Speaking full sentences without conversational dyspnea or labored breathing. No accessory muscle use. Diminished breath sounds throughout likely due to habitus without wheezes, rales or rhonchi Abdomen: Abdomen difficult to examine due to her large habitus. Extremely large pannus that is nearly touching the ground while she is sitting in her wheelchair. Bowel sounds appear to be normoactive x4. Soft and nontender Extremities: + Adiposity/lymphedema. She did have superimposed 3+ pitting edema yesterday that seems to have improved greatly today Neuro: A&O X4 cranial nerves II through XII are grossly intact no focal neuro deficits Skin: Stasis dermatitis of the bilateral lower extremities with some sup erficial/noninfected wounds Psych: Appropriate affect pleasant and cooperative Results & Data Results & Data ([facility]) Vital Signs (Past 12 Hours) Vital Signs Temp Pulse Resp BP Pulse Ox 03/30/21 15:07 36.7 C 72 17 125/70 95 03/30/21 08:16 36.6 C 71 18 120/70 96 Laboratory Results 03/30/21 10:58 03/30/21 10:58 PG Care Time/CCT Total # of Minutes Spent Total Time Spent with Patient: Total time spent is greater than 50% in coordination of care (as documented) at patient's floor/unit and/or counseling patient: Coding Level of Care Code 54795 Subseq Hosp Care Lvl 2 Diagnoses Ambulatory dysfunction R26.2 Bilateral lower extremity edema R60.0 ANDRZEJ (obstructive sleep apnea) G47.33 CKD (chronic kidney disease) stage 3, GFR 30-59 ml/min N18.32 Chronic kidney disease stage 3 subtype: stage 3b (GFR 30-44) Hypertension I10 Hyperlipidemia E78.5 Depression with anxiety F41.8 Asthma J45.30 Asthma severity: mild Asthma persistence: persistent Asthma complication type: uncomplicated (1) CKD (chronic kidney disease) stage 3, GFR 30-59 ml/min Chronic kidney disease stage 3 subtype: stage 3b (GFR 30-44) Qualified Code(s): N18.32 - Chronic kidney disease, stage 3b (2) Asthma Asthma severity: mild Asthma persistence: persistent Asthma complication type: uncomplicated Qualified Code(s): J45.30 - Mild persistent asthma, uncomplicated
[2021-03-30] MEDS: NORTRIPTYLINE HCL 25 MG CAP PO SCH (20:13)
[2021-03-30] MEDS: MONTELUKAST SODIUM 10 MG TABLET PO SCH (20:14)
[2021-03-30] MEDS: traZODone HCL 50 MG TAB PO SCH (20:15)
[2021-03-31] MEDS: FAMOTIDINE 20 MG TAB PO SCH (07:36)
[2021-03-31] MEDS: CLOPIDOGREL BISULFATE 75 MG TAB PO SCH (07:36)
[2021-03-31] MEDS: GABAPENTIN 300 MG CAP PO SCH ×3 (07:36→19:48)
[2021-03-31] MEDS: SERTRALINE HCL 100 MG TABLET PO SCH (07:36)
[2021-03-31] MEDS: aMILoride HCL 5 MG TAB PO SCH (07:37)
[2021-03-31] MEDS: CHOLECALCIFEROL 1,000 UNITS 25 MCG TAB PO SCH ×3 (07:37→19:48)
[2021-03-31] MEDS: DULoxetine HCL 30 MG CAP PO SCH (07:37)
[2021-03-31] MEDS: ENOXAPARIN INJ 40 MG/0.4 ML SYR SQ SCH ×2 (07:37→19:49)
[2021-03-31] MEDS: CYANOCOBALAMIN 500 MCG TABLET (VITAMIN B-12) PO SCH (07:37)
[2021-03-31] MEDS: FUROSEMIDE 40 MG TAB PO SCH (07:37)
[2021-03-31] MEDS: PANTOprazole 40 MG TAB PO SCH (07:38)
[2021-03-31] MEDS: ASPIRIN 81 MG ECTAB PO SCH (07:38)
[2021-03-31] MEDS: ATORVASTATIN 40 MG TAB PO SCH (07:38)
[2021-03-31] MEDS: allopurinoL 100 MG TAB PO SCH ×2 (07:38→19:48)
[2021-03-31] MEDS: BISOPROLOL FUMARATE 5 MG TAB PO SCH (07:38)
[2021-03-31] MEDS: buPROPion XL 300 MG TABCR PO SCH (07:38)
[2021-03-31] MEDS: CYCLOBENZAPRINE HCL 5 MG TAB PO PRN ×2 (07:39→19:48)
[2021-03-31] MEDS: MUPIROCIN 2% OINT 22 GM TUBE EXT SCH ×2 (07:39→19:49)
[2021-03-31] MEDS: CIPROFLOXACIN HCL 0.3% OP SOLN 2.5 ML BTL OPR SCH ×2 (18:19→19:49)
[2021-03-31] MEDS: FUROSEMIDE 20 MG TAB PO SCH (18:20)
--- NOTE | 2021-03-31 19:44 | Hospitalist Progress Note ---
Date of Service March 31, 2021 Assessment & Plan (1) Ambulatory dysfunction: Plan: likely multifactorial -- psychotropic polypharmacy, volume overload state, etc. appreciate psych consultation -- meds were pared down. volume overload - diuresing well. check b12 level am. no evidence of gout or inflammatory arthropathy on exam today. cont PT/OT. [facility] at d/c. (2) Bilateral lower extremity edema: Plan: likely acute/chronic diastolic CHF cont lasix cont amiloride (3) ANDRZEJ (obstructive sleep apnea): Plan: CPAP while she is here She reports that her CPAP was recalled--she likely has obesity hypoventilation syndrome and associated significant right heart strain because of this will need referral back to pulmonary/sleep post-d/c to get CPAP set back up for her (4) CKD (chronic kidney disease) stage 3, GFR 30-59 ml/min: Plan: At baseline Renally adjust medications when needed BMP am (5) Hypertension: Plan: Continue amiloride, bisoprolol controlled (6) Hyperlipidemia: Plan: Continue Lipitor (7) Depression with anxiety: Plan: appreciate psych recommendations (8) Asthma: Plan: no exacerbation at this time (9) Morbid obesity with BMI of 50.0-59.9, adult: Plan: BMI 54 (10) Conjunctivitis: Plan: RIGHT start cipro eye drops x 7 days Plan: Full code Lovenox for DVT prophylaxis (40mg BID) PT/OT on board and recommending rehab - [facility] after d/c anemia - check b12, iron studies in am Admission and Anticipated Discharge Date Admission Date: March 29, 2021 Subjective pt states that she is "feeling much better" than from admission abd bloating improved more awake, alert - not so sleepy denies pain in ankles/feet/legs (had such upon admission) eating fine requests phillips be kept in place another 24 hours Review of Systems Review of Systems: gen - improved weakness/fatigue cv - no orthopnea; no cp pulm - no dyspnea at rest Gi - no pain or nausea Physical Exam Physical Exam: gen - NAD, morbidly obese mouth - MMM eyes - injected right conjunctiva neck - no JVD heart - RRR, s1 s2 lungs - decreased BS bases o/w CTA b/l abd - soft NT ND BS+ ext - 2+ edema b/l, wraps in place, stasis changes b/l shins; no cellulitis musculo - ankles/feet w/o synovitis Results & Data Results & Data ([facility]) Vital Signs (Past 12 Hours) Vital Signs Temp Pulse Resp BP Pulse Ox 03/31/21 16:08 36.5 C 61 16 104/67 91 03/31/21 13:43 92 PG Care Time/CCT Total # of Minutes Spent Total Time Spent with Patient: Total time spent is greater than 50% in coordination of care (as documented) at patient's floor/unit and/or counseling patient: Coding Level of Care Code 19229 Subseq Hosp Care Lvl 2 Diagnoses Ambulatory dysfunction R26.2 Bilateral lower extremity edema R60.0 ANDRZEJ (obstructive sleep apnea) G47.33 CKD (chronic kidney disease) stage 3, GFR 30-59 ml/min N18.32 Chronic kidney disease stage 3 subtype: stage 3b (GFR 30-44) Hypertension I10 Hyperlipidemia E78.5 Depression with anxiety F41.8 Asthma J45.30 Asthma complication type: uncomplicated Asthma persistence: persistent Asthma severity: mild Morbid obesity with BMI of 50.0-59.9, adult E66.01; Z68.43 Conjunctivitis H10.9 (1) CKD (chronic kidney disease) stage 3, GFR 30-59 ml/min Chronic kidney disease stage 3 subtype: stage 3b (GFR 30-44) Qualified Code(s): N18.32 - Chronic kidney disease, stage 3b (2) Asthma Asthma complication type: uncomplicated Asthma persistence: persistent Asthma severity: mild Qualified Code(s): J45.30 - Mild persistent asthma, uncomplicated
[2021-03-31] MEDS: traZODone HCL 50 MG TAB PO SCH (19:48)
[2021-03-31] MEDS: MONTELUKAST SODIUM 10 MG TABLET PO SCH (19:49)
[2021-03-31] MEDS: NORTRIPTYLINE HCL 25 MG CAP PO SCH (19:49)
[2021-04-01 06:54] LABS: BUN Creatinine Ratio 8.4 (10-20); Calcium 9.3 mg/dl (8.5-10.1); Creatinine Clr Calc Pharmacy 78.6 ml/min; Est GFR (African American) 48.3 ml/min; Est GFR (Non-African American) 41.7 ml/min; Potassium 3.6 mmol/L (3.5-5.1)
[2021-04-01 07:04] LABS: Ferritin 34.6 ng/ml (8-388)
[2021-04-01] MEDS: CIPROFLOXACIN HCL 0.3% OP SOLN 2.5 ML BTL OPR SCH ×4 (09:06→20:24)
[2021-04-01] MEDS: ENOXAPARIN INJ 40 MG/0.4 ML SYR SQ SCH ×2 (09:07→20:24)
[2021-04-01] MEDS: SERTRALINE HCL 100 MG TABLET PO SCH (09:07)
[2021-04-01] MEDS: aMILoride HCL 5 MG TAB PO SCH (09:07)
[2021-04-01] MEDS: ATORVASTATIN 40 MG TAB PO SCH (09:08)
[2021-04-01] MEDS: CYANOCOBALAMIN 500 MCG TABLET (VITAMIN B-12) PO SCH (09:08)
[2021-04-01] MEDS: ASPIRIN 81 MG ECTAB PO SCH (09:08)
[2021-04-01] MEDS: FAMOTIDINE 20 MG TAB PO SCH (09:09)
[2021-04-01] MEDS: CHOLECALCIFEROL 1,000 UNITS 25 MCG TAB PO SCH ×3 (09:09→20:23)
[2021-04-01] MEDS: FUROSEMIDE 20 MG TAB PO SCH (09:09)
[2021-04-01] MEDS: buPROPion XL 300 MG TABCR PO SCH (09:09)
[2021-04-01] MEDS: CYCLOBENZAPRINE HCL 5 MG TAB PO PRN ×3 (09:10→20:23)
[2021-04-01] MEDS: DULoxetine HCL 30 MG CAP PO SCH (09:10)
[2021-04-01] MEDS: GABAPENTIN 300 MG CAP PO SCH ×3 (09:10→20:24)
[2021-04-01] MEDS: allopurinoL 100 MG TAB PO SCH ×2 (09:10→20:24)
[2021-04-01] MEDS: BISOPROLOL FUMARATE 5 MG TAB PO SCH (09:11)
[2021-04-01] MEDS: PANTOprazole 40 MG TAB PO SCH (09:11)
[2021-04-01] MEDS: CLOPIDOGREL BISULFATE 75 MG TAB PO SCH (09:11)
[2021-04-01] MEDS: MUPIROCIN 2% OINT 22 GM TUBE EXT SCH ×2 (09:12→20:24)
[2021-04-01] MEDS ORDERED: IRON SUCROSE 200 MG in 0.9 % SODIUM CHLORIDE 100 ML IV ONE (10:02)
--- NOTE | 2021-04-01 13:02 | 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 Note ---
Date of Service: April 01, 2021 Attempted to see patient multiple times today but each time she was receiving care or in the midst of another evaluation. Therefore will re-assess tomorrow. Per psych liason's encounter with her yesterday mood and sleep have been stable even with medication reductions which is encouraging. Plan: -attempt re-eval tomorrow
--- NOTE | 2021-04-01 13:34 | Ultrasound Report ---
ULTRASOUND BILATERAL LOWER EXTREMITY VENOUS CLINICAL HISTORY: Chronic lower extremity edema. COMPARISON STUDY: Left lower extremity venous ultrasound dated 10/24/2020 TECHNIQUE: Real-time, grayscale, and color Doppler sonography of the deep veins of the right and left lower extremity was performed from the inguinal crease to the calf. Compression and augmentation wer e utilized. FINDINGS: There is no sonographic evidence of deep venous thrombosis identified in the right or left lower extremity. The common femoral, superficial femoral, and popliteal veins are patent and normally compressible bilaterally. The greater saphenous vein and the profunda femoris vein at the junction w ith the common femoral vein are clear in both legs. The visualized calf veins are patent bilaterally. IMPRESSION: There is no sonographic evidence of deep venous thrombosis identified in the right or lef t lower extremity. ACT 112: Negative or not required by law. Electronically signed by: Will Hussein M.D. 04/01/2021 1:32 PM
[2021-04-01] MEDS: ACETAMINOPHEN 325 MG TAB PO PRN (13:44)
[2021-04-01] MEDS ORDERED: FUROSEMIDE 40 MG TAB PO SCH (17:00)
[2021-04-01] MEDS: traZODone HCL 50 MG TAB PO SCH (20:23)
[2021-04-01] MEDS: MONTELUKAST SODIUM 10 MG TABLET PO SCH (20:23)
[2021-04-01] MEDS: NORTRIPTYLINE HCL 25 MG CAP PO SCH (20:23)
--- NOTE | 2021-04-01 21:59 | Hospitalist Progress Note ---
Date of Service April 01, 2021 Assessment & Plan (1) Ambulatory dysfunction: Plan: likely multifactorial -- psychotropic polypharmacy, volume overload state, probable viral URI. COVID neg again today RSV neg with the conjunctivitis could have rhinovirus, adenovirus, etc appreciate psych consultation -- meds were pared down significantly. volume overload - has diuresed copiously; suspect we are about at euvolemia. b12 level wnl. no evidence of gout or inflammatory arthropathy on exam today. cont PT/OT. [facility] at d/c. (2) Bilateral lower extremity edema: Plan: likely acute/chronic diastolic CHF much improved HCO3 rising on BMP - hold diuretics after tonight's dose re-eval with BMP in am (3) ANDRZEJ (obstructive sleep apnea): Plan: CPAP while she is here She reports that her CPAP was recalled--she likely has obesity hypoventilation syndrome and associated significant right heart strain because of this will need referral back to pulmonary/sleep post-d/c to get CPAP set back up for her (4) CKD (chronic kidney disease) stage 3, GFR 30-59 ml/min: Plan: At baseline Renally adjust medications when needed BMP am (5) Hypertension: Plan: Continue beta rose hold diuretics (6) Hyperlipidemia: Plan: Continue Lipitor (7) Depression with anxiety: Plan: appreciate psych recommendations for her complex med regimen (8) Asthma: Plan: no exacerbation at this time (9) Morbid obesity with BMI of 50.0-59.9, adult: Plan: BMI 54 (10) Conjunctivitis: Plan: RIGHT likely viral, but in the event it is bacterial, cipro eye drops x 7 days (11) Viral URI: Plan: COVID neg x 2 RSV neg 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 d/c phillips Admission and Anticipated Discharge Date Admission Date: March 29, 2021 Subjective pt c/o ongoing runny nose, dry cough, fatigue, occasional chills, right eye itchiness symptoms present for ~1 week no fever eating fair no dyspnea Review of Systems Review of Systems: gen - fatigue, no fever HENT - some mild sore throat CV - no chest pain; no orthopnea GI - no N/V/D Physical Exam Physical Exam: gen - NAD, morbidly obese mouth - MMM eyes - injected right conjunctiva - worse today; no drainage; left eye clear nose - congested neck - mild JVD heart - RRR, s1 s2 lungs - decreased BS bases o/w CTA b/l abd - soft NT ND BS+ ext - 1-2+ edema b/l, wraps in place, stasis changes b/l shins; no cellulitis psych - a/o x 3 Results & Data Results & Data ([facility]) Vital Signs (Past 12 Hours) Vital Signs Temp Pulse Resp BP BP Pulse Ox 04/01/21 12:34 36.6 C 67 16 110/77 92 04/01/21 12:00 37.2 C 66 18 122/77 94 Laboratory Results Laboratory Results - last 24 hr 04/01/21 04/01/21 04/01/21 05:41 05:41 14:30 Sodium 136 Potassium 3.6 Chloride 92 L Carbon Dioxide 40 H Anion Gap 4.0 BUN 12 Creatinine 1.39 H Est Cr Clr Drug Dosing 78.6 Est GFR ( Amer) 48.3 Est GFR (Non-Af Amer) 41.7 BUN/Creatinine Ratio 8.4 L Glucose 94 Calcium 9.3 Ferritin 34.6 Vitamin B12 1323 H COVID-19 Eval Order SARS-CoV-2 (PCR) RSV (Molecular) Negative 04/01/21 04/01/21 14:30 14:30 Sodium Potassium Chloride Carbon Dioxide Anion Gap BUN Creatinine Est Cr Clr Drug Dosing Est GFR ( Amer) Est GFR (Non-Af Amer) BUN/Creatinine Ratio Glucose Calcium Ferritin Vitamin B12 COVID-19 Eval Order Covid19 at [facility] SARS-CoV-2 (PCR) NEGATIVE RSV (Molecular) PG Care Time/CCT Total # of Minutes Spent Total Time Spent with Patient: Total time spent is greater than 50% in coordination of care (as documented) at patient's floor/unit and/or counseling patient: Coding Level of Care Code 38891 Subseq Hosp Care Lvl 3 Diagnoses Ambulatory dysfunction R26.2 Bilateral lower extremity edema R60.0 ANDRZEJ (obstructive sleep apnea) G47.33 CKD (chronic kidney disease) stage 3, GFR 30-59 ml/min N18.32 Chronic kidney disease stage 3 subtype: stage 3b (GFR 30-44) Hypertension I10 Hyperlipidemia E78.5 Depression with anxiety F41.8 Asthma J45.30 Asthma complication type: uncomplicated Asthma persistence: persistent Asthma severity: mild Morbid obesity with BMI of 50.0-59.9, adult E66.01; Z68.43 Conjunctivitis H10.9 Viral URI J06.9 Iron deficiency anemia D50.9 (1) CKD (chronic kidney disease) stage 3, GFR 30-59 ml/min Chronic kidney disease stage 3 subtype: stage 3b (GFR 30-44) Qualified Code(s): N18.32 - Chronic kidney disease, stage 3b (2) Asthma Asthma complication type: uncomplicated Asthma persistence: persistent Asthma severity: mild Qualified Code(s): J45.30 - Mild persistent asthma, uncomplicated
--- NOTE | 2021-04-01 22:43 | Emergency Department Note ---
Impression & Plan Fall as cause of accidental injury at home as place of occurrence, Morbid obesity with BMI of 50.0-59.9, adult, CKD (chronic kidney disease), Venous stasis of both lower extremities, Acute urinary retention ED Provider Note CHIEF COMPLAINT: Fall, could not get up HISTORY OF PRESENT ILLNESS: This 60-year-old female patient presents to the emergency department after falling at home. Patient states she laid on the floor for several hours and finally her mother called 911. She denies any s ignificant injuries from the fall but states that her abdomen is full of fluid. Last time this happened they "needed to drain urine," she states. Patient states she urinated twice today. She does have a history of renal failure. Patient states she also has difficulty with her balance and often falls. She denies hitting her head or losing consciousness. She denies any syncope, chest pain or shortness of breath. REVIEW OF SYSTEMS: A review of systems was performed with positives and pertin ent negatives listed in the history of present illness. 10 systems were reviewed and are otherwise negative. ALLERGIES: see below MEDICATIONS: see below PMH: see below SOCIAL HISTORY: see below DDx: Infection, dehydration, metabolic abnormality, hypo/hyperglycemia, electrolyte disturbance, anemia, hypoxia, cardiac sources, intracerebral event, toxicologic, neurologic, as well as other pathologies. PHYSICAL EXAM: Vital signs reviewed. General: Chronically ill-appearing 60-year-old female, morbidly obese, disheveled but in no significant distress. HEENT: No scleral icterus, PERRLA, neck supple. Atraumatic. Cardiovascular: Regular rate and rhythm, no extra sounds. Pulmonary: Clear to auscultation bilaterally, normal work of breathing. Abdomen: Soft, obese, nontender, nondistended, positive bowel sounds. Exam is significantly limited by body habitus. Musculoskeletal: Venous stasis ulcerations bilaterally with erythema. Animal hair stuck in the wounds to the distal bilateral lower extremities. Tissue appears to be inflamed and erythematous however no clear discharge. No laceration Neurologic: Patient awake alert and oriented x 3, speech is clear Skin: Warm, dry, otherwise see above. EMERGENCY DEPARTMENT COURSE/MDM: This patient was evaluated and appeared to be in no distress. IV access was obtained and laboratory work was drawn. The patient was placed on a shelter monitor. Laboratory work reveals a normal white count, normal lactate and troponin. UA is negative however the Bales catheter drained 1500 cc of urine. Patient was given 2 g of IV ceftriaxone for the lower extremity wounds and nursing staff cleansed and dressed them. to the patient's inability to ambulate, she was referred to the hospitalist service for further management. MONITORING: An order for cardiac monitoring was placed and the patient is noted to be in a sinus rhythm with a first-degree AV block at 80 bpm. RADIOLOGY: See below EKG: Sinus rhythm with a first-degree AV block at 81 bpm. Left axis deviation with anterior Q waves. Overall low voltage. Possible previous anterior and inferior infarct. 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- DISCOVERED WITH INCIDENTAL IMAGING Degenerative joint disease, shoulder, right Depression with anxiety Gout History of CVA (cerebrovascular accident) Hyperlipidemia Hypertension Left leg weakness Lumbar spinal stenosis Lymphedema MDD (major depressive disorder), recurrent episode, moderate MRSA (methicillin resistant staph aureus) culture positive Other ovarian cyst, left side Peripheral neuropathy Prediabetes Recurrent cellulitis of lower leg TIA (transient ischemic attack) 2017- ON PLAVIX Vitamin D deficiency Surgical History H/O total knee replacement B/L H/O ventral hernia repair History of appendectomy History of carpal tunnel release B/L History of cholecystectomy S/P tonsillectomy and adenoidectomy Status post total shoulder arthroplasty (10/17/18) R Family History Mother Diabetes Gallbladder disease Hypertension Coronary heart disease Myocardial infarction S/P CABG x 3 Sister Hodgkins lymphoma Brother Kidney disease Grandmother Breast cancer Aunt Ovarian cancer Father , 02/11/20. Peripheral vascular disease Daughter Diabetes Other Cancer Denies family history of Prostate cancer Colorectal cancer Social History Smoking Status: Former smoker Age Started Using Tobacco: 22; Age Quit Using Tobacco: 24; Years Smoked: 2; Second Hand Exposure: No; Do You Dip or Chew Tobacco: No; Tobacco Cessation Education Requested by Patient: No Hx Alcohol Use: No Hx Substance Use: No Preferred Language: German 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 Ability: Effective Visual Impairment: Limited Hearing Ability: Normal Document Scanner Required: No Beliefs That Will Affect Care: Baptist Baptist Beliefs: Faith marital status details: ; lives with parents & 1 daughter Current Living Situation: Family Current Living Situation Comment: daughter and mom current occupational status: disabled Other Information That Helps Us Care for You: No other: worked in [employer] in [place]; worked for [employer] Feels Safe at Home: Yes Safety Concerns: Feels Safe At This Time Childhood Exposure to Second-Hand Smoke: No caffeine: Yes Dental Care, Regularly: No Physical Activity Frequency: Does not Exercise Seatbelt Use: always Sunscreen Use: Yes Assistive Devices: Walker Allergies Allergies Allergy/AdvReac Type Severity Reaction Status Date / Time Corticosteroids Allergy Intermediate RASH Verified 03/25/21 15:28 (Glucocorticoids) morphine Allergy Intermediate MOUTH Verified 03/25/21 15:28 SWELLS/FACE SWELLS orange Allergy Intermediate HIVES Verified 03/25/21 15:28 Penicillins Allergy Intermediate RASH/HIVES Verified 03/25/21 15:28 prednisone Allergy Intermediate RED RASH Verified 03/25/21 15:28 pregabalin Allergy Intermediate GOOFY Verified 03/25/21 15:28 zolpidem Allergy Intermediate UNSURE Verified 03/25/21 15:28 orange (food color) Allergy Mild rash Verified 03/25/21 15:28 Home Meds Previous Rx's Medication Instructions Recorded clopidogrel 75 mg tablet (Plavix) 75 mg PO DAILY #90 tab 05/21/20 cyanocobalamin (vitamin B-12) 1,000 mcg PO DAILY #30 tab 09/25/20 1,000 mcg tablet (Vitamin B-12) pantoprazole 40 mg tablet,delayed 40 mg PO QAM #30 tab 11/04/20 release montelukast 10 mg tablet 10 mg PO PM #90 tab 11/12/20 bisoprolol fumarate 5 mg tablet 5 mg PO DAILY #90 tab 11/14/20 aripiprazole 2 mg tablet (Abilify) 2 mg PO DAILY #90 tab 12/02/20 mupirocin 2 % topical ointment 1 applic TOPICAL BID #30 g 01/15/21 albuterol sulfate 90 mcg/actuation 2 puff INHALATION Q4H PRN #18 gm 01/27/21 aerosol inhaler (Ventolin HFA) aspirin 81 mg tablet,delayed 81 mg PO QAM #90 tab 01/29/21 release atorvastatin 40 mg tablet 40 mg PO DAILY #90 tab 01/29/21 bupropion HCl 300 mg 24 hr tablet, 300 mg PO QAM #90 tab 01/29/21 extended release buspirone 15 mg tablet 15 mg PO TID #270 tab 01/29/21 calcium carbonate 300 mg (750 mg) 900 mg PO DAILY PRN #270 tab 01/29/21 chewable tablet cholecalciferol (vitamin D3) 50 2,000 unit PO TID #270 cap 01/29/21 mcg (2,000 unit) capsule (Vitamin D3) famotidine 20 mg tablet 20 mg PO QAM #90 tab 01/29/21 multivitamin 1 tab PO QAM #90 tab 01/29/21 quetiapine 400 mg tablet 400 mg PO HS #90 tab 01/29/21 trazodone 150 mg tablet 150 mg PO HS #90 tab 01/29/21 gabapentin 300 mg capsule 300 mg PO TID #270 cap 01/31/21 allopurinol 100 mg tablet 100 mg PO BID #180 tab 02/03/21 amiloride 5 mg tablet 5 mg PO DAILY #90 tab 02/17/21 nortriptyline 50 mg capsule 150 mg PO HS #270 cap 02/17/21 duloxetine 30 mg capsule,delayed 30 mg PO QAM #90 cap 02/19/21 release acetaminophen 500 mg tablet 1,000 mg PO Q4H PRN #90 tab 03/20/21 metoclopramide HCl 5 mg tablet 5 mg PO QID PRN #90 tab 03/20/21 albuterol sulfate 2.5 mg INHALATION Q6H #180 ml 03/21/21 cyclobenzaprine 5 mg tablet 5 mg PO TID PRN #30 tab 03/25/21 furosemide 20 mg tablet (Lasix) 40 mg PO BID #90 tab 03/25/21 sulfamethoxazole 800 1 tab PO BID 10 Days #20 tab 03/25/21 mg-trimethoprim 160 mg tablet (Bactrim DS) sertraline 100 mg tablet 200 mg PO DAILY #180 tab 03/31/21 Results & Data (ED) Home Medications Current Medication List: was personally reviewed by me Laboratory Data Attestation: I reviewed the patient's lab results. Result diagrams: 04/02/21 05:59 04/02/21 05:52 Lab Results 03/29/21 03/29/21 03/29/21 Range/Units 05:35 05:35 05:35 WBC 9.45 (4.8-10.8) K/uL RBC 4.54 (4.2-5.4) M/uL Hgb 11.5 L (12.0-16.0) g/dL Hct 37.3 (37-47) % MCV 82.2 (80-100) fL MCH 25.3 (25-34) pg MCHC 30.8 L (32-36) g/dL RDW Std Deviation 51.8 H (36.4-46.3) fL RDW Coeff of Cleo 17.2 H (11.5-14.5) % Plt Count 270 (130-400) K/uL MPV 9.6 (7.4-10.4) fL Immature Gran % (Auto) 0.1 % Neut % (Auto) 66.7 % Lymph % (Auto) 22.5 % Preston % (Auto) 5.4 % Eos % (Auto) 5.1 % Baso % (Auto) 0.2 % Neut # (Auto) 6.30 (1.4-6.5) K/uL Lymph # (Auto) 2.13 (1.2-3.4) K/uL Preston # (Auto) 0.51 (0.11-0.59) K/uL Eos # (Auto) 0.48 (0-0.5) K/uL Baso # (Auto) 0.02 (0-0.2) K/uL Immature Gran # (Auto) 0.01 (0.00-0.02) K/uL PT 10.6 (9.0-12.0) Seconds INR 1.0 (0.9-1.1) Sodium 141 (136-145) mmol/L Potassium 3.6 (3.5-5.1) mmol/L Chloride 104 (98-107) mmol/L Carbon Dioxide 35 H (21-32) mmol/L Anion Gap 2.0 L (3-11) BUN 10 (7-18) mg/dl Creatinine 1.32 H (0.6-1.2) mg/dl Est Cr Clr Drug Dosing 82.8 ml/min Est GFR ( Amer) 51.4 ml/min Est GFR (Non-Af Amer) 44.4 ml/min BUN/Creatinine Ratio 7.9 L (10-20) Glucose 90 (70-99) mg/dl Lactate (0.4-2.0) mmol/L Calcium 8.6 (8.5-10.1) mg/dl Magnesium 2.2 (1.8-2.4) mg/dl Total Bilirubin 0.4 (0.2-1) mg/dl AST 24 (15-37) U/L ALT 34 (12-78) U/L Alkaline Phosphatase 108 (45-117) U/L Total Creatine Kinase 227 H (26-192) U/L Troponin I < 0.015 (0-0.045) ng/ml Total Protein 7.4 (6.4-8.2) gm/dl Albumin 3.2 L (3.4-5.0) gm/dl Globulin 4.2 H (2.5-4.0) gm/dl Albumin/Globulin Ratio 0.8 L (0.9-2) Procalcitonin (0-0.5) ng/ml TSH 2.670 (0.300-4.500) uIu/ml Urine Color Urine Appearance (Clear) Urine pH (4.5-7.5) Ur Specific [place] (1.000-1.030) Urine Protein (Negative) Urine Glucose (UA) (Negative) Urine Ketones (Negative) Urine Blood (Negative) Urine Nitrite (Negative) Urine Bilirubin (Negative) Urine Urobilinogen (Negative) Ur Leukocyte Esterase (Negative) COVID-19 Eval Order SARS-CoV-2 (PCR) (Negative) 03/29/21 03/29/21 03/29/21 Range/Units 05:35 05:35 06:38 WBC (4.8-10.8) K/uL RBC (4.2-5.4) M/uL Hgb (12.0-16.0) g/dL Hct (37-47) % MCV (80-100) fL MCH (25-34) pg MCHC (32-36) g/dL RDW Std Deviation (36.4-46.3) fL RDW Coeff of Cleo (11.5-14.5) % Plt Count (130-400) K/uL MPV (7.4-10.4) fL Immature Gran % (Auto) % Neut % (Auto) % Lymph % (Auto) % Preston % (Auto) % Eos % (Auto) % Baso % (Auto) % Neut # (Auto) (1.4-6.5) K/uL Lymph # (Auto) (1.2-3.4) K/uL Preston # (Auto) (0.11-0.59) K/uL Eos # (Auto) (0-0.5) K/uL Baso # (Auto) (0-0.2) K/uL Immature Gran # (Auto) (0.00-0.02) K/uL PT (9.0-12.0) Seconds INR (0.9-1.1) Sodium (136-145) mmol/L Potassium (3.5-5.1) mmol/L Chloride (98-107) mmol/L Carbon Dioxide (21-32) mmol/L Anion Gap (3-11) BUN (7-18) mg/dl Creatinine (0.6-1.2) mg/dl Est Cr Clr Drug Dosing ml/min Est GFR ( Amer) ml/min Est GFR (Non-Af Amer) ml/min BUN/Creatinine Ratio (10-20) Glucose (70-99) mg/dl Lactate 1.0 (0.4-2.0) mmol/L Calcium (8.5-10.1) mg/dl Magnesium (1.8-2.4) mg/dl Total Bilirubin (0.2-1) mg/dl AST (15-37) U/L ALT (12-78) U/L Alkaline Phosphatase (45-117) U/L Total Creatine Kinase (26-192) U/L Troponin I (0-0.045) ng/ml Total Protein (6.4-8.2) gm/dl Albumin (3.4-5.0) gm/dl Globulin (2.5-4.0) gm/dl Albumin/Globulin Ratio (0.9-2) Procalcitonin < 0.05 (0-0.5) ng/ml TSH (0.300-4.500) uIu/ml Urine Color Yellow Urine Appearance Clear (Clear) Urine pH 5.5 (4.5-7.5) Ur Specific [place] 1.010 (1.000-1.030) Urine Protein Negative (Negative) Urine Glucose (UA) Negative (Negative) Urine Ketones Negative (Negative) Urine Blood Negative (Negative) Urine Nitrite Negative (Negative) Urine Bilirubin Negative (Negative) Urine Urobilinogen Negative (Negative) Ur Leukocyte Esterase Negative (Negative) COVID-19 Eval Order SARS-CoV-2 (PCR) (Negative) 03/29/21 03/29/21 Range/Units 06:58 06:58 WBC (4.8-10.8) K/uL RBC (4.2-5.4) M/uL Hgb (12.0-16.0) g/dL Hct (37-47) % MCV (80-100) fL MCH (25-34) pg MCHC (32-36) g/dL RDW Std Deviation (36.4-46.3) fL RDW Coeff of Cleo (11.5-14.5) % Plt Count (130-400) K/uL MPV (7.4-10.4) fL Immature Gran % (Auto) % Neut % (Auto) % Lymph % (Auto) % Preston % (Auto) % Eos % (Auto) % Baso % (Auto) % Neut # (Auto) (1.4-6.5) K/uL Lymph # (Auto) (1.2-3.4) K/uL Preston # (Auto) (0.11-0.59) K/uL Eos # (Auto) (0-0.5) K/uL Baso # (Auto) (0-0.2) K/uL Immature Gran # (Auto) (0.00-0.02) K/uL PT (9.0-12.0) Seconds INR (0.9-1.1) Sodium (136-145) mmol/L Potassium (3.5-5.1) mmol/L Chloride (98-107) mmol/L Carbon Dioxide (21-32) mmol/L Anion Gap (3-11) BUN (7-18) mg/dl Creatinine (0.6-1.2) mg/dl Est Cr Clr Drug Dosing ml/min Est GFR ( Amer) ml/min Est GFR (Non-Af Amer) ml/min BUN/Creatinine Ratio (10-20) Glucose (70-99) mg/dl Lactate (0.4-2.0) mmol/L Calcium (8.5-10.1) mg/dl Magnesium (1.8-2.4) mg/dl Total Bilirubin (0.2-1) mg/dl AST (15-37) U/L ALT (12-78) U/L Alkaline Phosphatase (45-117) U/L Total Creatine Kinase (26-192) U/L Troponin I (0-0.045) ng/ml Total Protein (6.4-8.2) gm/dl Albumin (3.4-5.0) gm/dl Globulin (2.5-4.0) gm/dl Albumin/Globulin Ratio (0.9-2) Procalcitonin (0-0.5) ng/ml TSH (0.300-4.500) uIu/ml Urine Color Urine Appearance (Clear) Urine pH (4.5-7.5) Ur Specific [place] (1.000-1.030) Urine Protein (Negative) Urine Glucose (UA) (Negative) Urine Ketones (Negative) Urine Blood (Negative) Urine Nitrite (Negative) Urine Bilirubin (Negative) Urine Urobilinogen (Negative) Ur Leukocyte Esterase (Negative) COVID-19 Eval Order Covid19 at [facility] SARS-CoV-2 (PCR) NEGATIVE (Negative) Administered Medications Acetaminophen (Acetaminophen 325 Mg Tab) 650 mg PO Q4H PRN PRN Reason: pain/fever Stop: 04/28/21 15:47 Last Admin: 04/01/21 13:44 Dose: 650 mg Documented by: [id number] Admin: 03/30/21 08:19 Dose: 650 mg Documented by: [id number] Admin: 03/29/21 16:38 Dose: 650 mg Documented by: [id number] Allopurinol (Allopurinol 100 Mg Tab) 100 mg PO BID LEOBARDO Stop: 04/28/21 20:59 Last Admin: 04/02/21 09:04 Dose: 100 mg Documented by: [id number] Admin: 04/01/21 20:24 Dose: 100 mg Documented by: [id number] Admin: 04/01/21 09:10 Dose: 100 mg Documented by: [id number] Admin: 03/31/21 19:48 Dose: 100 mg Documented by: [id number] Admin: 03/31/21 07:38 Dose: 100 mg Documented by: [id number] Admin: 03/30/21 20:13 Dose: 100 mg Documented by: [id number] Admin: 03/30/21 08:13 Dose: 100 mg Documented by: [id number] Admin: 03/29/21 20:38 Dose: 100 mg Documented by: [id number] Amiloride HCl (Amiloride Hcl 5 Mg Tab) 5 mg PO DAILY LEOBARDO Stop: 04/28/21 16:14 Last Admin: 04/01/21 09:07 Dose: 5 mg Documented by: [id number] Admin: 03/31/21 07:37 Dose: 5 mg Documented by: [id number] Admin: 03/30/21 08:12 Dose: 5 mg Documented by: [id number] Admin: 03/29/21 17:17 Dose: 5 mg Documented by: [id number] Aspirin (Aspirin 81 Mg Ectab) 81 mg PO QAM LEOBARDO Stop: 04/28/21 16:29 Last Admin: 04/02/21 09:03 Dose: 81 mg Documented by: [id number] Admin: 04/01/21 09:08 Dose: 81 mg Documented by: [id number] Admin: 03/31/21 07:38 Dose: 81 mg Documented by: [id number] Admin: 03/30/21 08:13 Dose: 81 mg Documented by: [id number] Admin: 03/29/21 17:18 Dose: 81 mg Documented by: [id number] Atorvastatin Calcium (Atorvastatin 40 Mg Tab) 40 mg PO DAILY LEOBARDO Stop: 04/28/21 16:29 Last Admin: 04/02/21 09:02 Dose: 40 mg Documented by: [id number] Admin: 04/01/21 09:08 Dose: 40 mg Documented by: [id number] Admin: 03/31/21 07:38 Dose: 40 mg Documented by: [id number] Admin: 03/30/21 08:13 Dose: 40 mg Documented by: [id number] Admin: 03/29/21 17:18 Dose: 40 mg Documented by: [id number] Bisoprolol Fumarate (Bisoprolol Fumarate 5 Mg Tab) 5 mg PO DAILY LEOBARDO Stop: 04/28/21 16:29 Last Admin: 04/02/21 09:02 Dose: 5 mg Documented by: [id number] Admin: 04/01/21 09:11 Dose: 5 mg Documented by: [id number] Admin: 03/31/21 07:38 Dose: 5 mg Documented by: [id number] Admin: 03/30/21 08:12 Dose: 5 mg Documented by: [id number] Admin: 03/29/21 17:17 Dose: 5 mg Documented by: [id number] Bupropion HCl (Bupropion Xl 300 Mg Tabcr) 300 mg PO QAM LEOBARDO Stop: 04/28/21 16:29 Last Admin: 04/02/21 09:04 Dose: 300 mg Documented by: [id number] Admin: 04/01/21 09:09 Dose: 300 mg Documented by: [id number] Admin: 03/31/21 07:38 Dose: 300 mg Documented by: [id number] Admin: 03/30/21 08:13 Dose: 300 mg Documented by: [id number] Admin: 03/29/21 17:17 Dose: 300 mg Documented by: [id number] Ciprofloxacin (Ciprofloxacin Hcl 0.3% Op Soln 2.5 Ml Btl) 1 drops OPR Q4HWA LEOBARDO Stop: 04/10/21 16:29 Last Admin: 04/02/21 11:32 Dose: 1 drops Documented by: [id number] Admin: 04/02/21 09:02 Dose: 1 drops Documented by: [id number] Admin: 04/01/21 20:24 Dose: 1 drops Documented by: [id number] Admin: 04/01/21 17:16 Dose: 1 drops Documented by: [id number] Admin: 04/01/21 11:53 Dose: 1 drops Documented by: [id number] Admin: 04/01/21 09:06 Dose: 1 drops Documented by: [id number] Admin: 03/31/21 19:49 Dose: 1 drops Documented by: [id number] Admin: 03/31/21 18:19 Dose: 1 drops Documented by: [id number] Clopidogrel Bisulfate (Clopidogrel Bisulfate 75 Mg Tab) 75 mg PO DAILY [facility] Stop: 04/28/21 16:29 Last Admin: 04/02/21 09:03 Dose: 75 mg Documented by: [id number] Admin: 04/01/21 09:11 Dose: 75 mg Documented by: [id number] Admin: 03/31/21 07:36 Dose: 75 mg Documented by: [id number] Admin: 03/30/21 08:13 Dose: 75 mg Documented by: [id number] Admin: 03/29/21 17:19 Dose: 75 mg Documented by: [id number] Cyanocobalamin (Cyanocobalamin 500 Mcg Tablet (Vitamin B-12)) 1,000 mcg PO VIRGEN LY LEOBARDO Stop: 04/28/21 16:29 Last Admin: 04/02/21 09:04 Dose: 1,000 mcg Documented by: [id number] Admin: 04/01/21 09:08 Dose: 1,000 mcg Documented by: [id number] Admin: 03/31/21 07:37 Dose: 1,000 mcg Documented by: [id number] Admin: 03/30/21 08:12 Dose: 1,000 mcg Documented by: [id number] Admin: 03/29/21 17:20 Dose: 1,000 mcg Documented by: [id number] Cyclobenzaprine HCl (Cyclobenzaprine Hcl 5 Mg Tab) 5 mg PO TID PRN PRN Reason: muscle spasm Stop: 04/28/21 15:47 Last Admin: 04/02/21 11:03 Dose: 5 mg Documented by: [id number] Admin: 04/01/21 20:23 Dose: 5 mg Documented by: [id number] Admin: 04/01/21 13:43 Dose: 5 mg Documented by: [id number] Admin: 04/01/21 09:10 Dose: 5 mg Documented by: [id number] Admin: 03/31/21 19:48 Dose: 5 mg Documented by: [id number] Admin: 03/31/21 07:39 Dose: 5 mg Documented by: [id number] Duloxetine HCl (Duloxetine Hcl 30 Mg Cap) 30 mg PO QAM [facility] Stop: 04/28/21 16:29 Last Admin: 04/02/21 09:02 Dose: 30 mg Documented by: [id number] Admin: 04/01/21 09:10 Dose: 30 mg Documented by: [id number] Admin: 03/31/21 07:37 Dose: 30 mg Documented by: [id number] Admin: 03/30/21 08:13 Dose: 30 mg Documented by: [id number] Admin: 03/29/21 17:19 Dose: 30 mg Documented by: [id number] Enoxaparin Sodium (Enoxaparin Inj 40 Mg/0.4 Ml Syr) 40 mg SQ Q12 LEOBARDO Stop: 04/28/21 16:59 Last Admin: 04/02/21 09:05 Dose: 40 mg Documented by: [id number] Admin: 04/01/21 20:24 Dose: 40 mg Documented by: [id number] Admin: 04/01/21 09:07 Dose: 40 mg Documented by: [id number] Admin: 03/31/21 19:49 Dose: 40 mg Documented by: [id number] Admin: 03/31/21 07:37 Dose: 40 mg Documented by: [id number] Admin: 03/30/21 20:15 Dose: 40 mg Documented by: [id number] Admin: 03/30/21 08:14 Dose: 40 mg Documented by: [id number] Admin: 03/29/21 17:20 Dose: 40 mg Documented by: [id number] Famotidine (Famotidine 20 Mg Tab) 20 mg PO QAM LEOBARDO Stop: 04/28/21 16:29 Last Admin: 04/02/21 09:04 Dose: 20 mg Documented by: [id number] Admin: 04/01/21 09:09 Dose: 20 mg Documented by: [id number] Admin: 03/31/21 07:36 Dose: 20 mg Documented by: [id number] Admin: 03/30/21 08:13 Dose: 20 mg Documented by: [id number] Admin: 03/29/21 17:17 Dose: 20 mg Documented by: [id number] Furosemide (Furosemide 40 Mg Tab) 40 mg PO BID17 LEOBARDO Stop: 05/01/21 16:59 Last Admin: 04/01/21 17:18 Dose: 40 mg Documented by: [id number] Gabapentin (Gabapentin 300 Mg Cap) 300 mg PO TID LEOBARDO Stop: 04/28/21 16:29 Last Admin: 04/02/21 09:03 Dose: 300 mg Documented by: [id number] Admin: 04/01/21 20:24 Dose: 300 mg Documented by: [id number] Admin: 04/01/21 13:41 Dose: 300 mg Documented by: [id number] Admin: 04/01/21 09:10 Dose: 300 mg Documented by: [id number] Admin: 03/31/21 19:48 Dose: 300 mg Documented by: [id number] Admin: 03/31/21 13:40 Dose: 300 mg Documented by: [id number] Admin: 03/31/21 07:36 Dose: 300 mg Documented by: [id number] Admin: 03/30/21 20:13 Dose: 300 mg Documented by: [id number] Admin: 03/30/21 13:09 Dose: 300 mg Documented by: [id number] Admin: 03/30/21 08:13 Dose: 300 mg Documented by: [id number] Admin: 03/29/21 21:21 Dose: 300 mg Documented by: [id number] Admin: 03/29/21 17:18 Dose: 300 mg Documented by: [id number] Iron Sucrose 300 mg/ Sodium (Chloride) 265 mls @ 176.667 mls/hr IV 1100 ONE Stop: 04/02/21 12:29 Last Admin: 04/02/21 11:31 Dose: 176.7 mls/hr Documented by: [id number] Montelukast Sodium (Montelukast Sodium 10 Mg Tablet) 10 mg PO PM LEOBARDO Stop: 04/28/21 20:59 Last Admin: 04/01/21 20:23 Dose: 10 mg Documented by: [id number] Admin: 03/31/21 19:49 Dose: 10 mg Documented by: [id number] Admin: 03/30/21 20:14 Dose: 10 mg Documented by: [id number] Admin: 03/29/21 20:38 Dose: 10 mg Documented by: [id number] Mupirocin (Mupirocin 2% Oint 22 Gm Tube) 1 appln EXT BID LEOBARDO Stop: 04/28/21 20:59 Last Admin: 04/02/21 09:05 Dose: 1 appln Documented by: [id number] Admin: 04/01/21 20:24 Dose: 1 appln Documented by: [id number] Admin: 04/01/21 09:12 Dose: 1 appln Documented by: [id number] Admin: 03/31/21 19:49 Dose: 1 appln Documented by: [id number] Admin: 03/31/21 07:39 Dose: 1 appln Documented by: [id number] Admin: 03/30/21 20:15 Dose: 1 appln Documented by: [id number] Admin: 03/30/21 08:13 Dose: 1 appln Documented by: [id number] Admin: 03/29/21 20:39 Dose: 1 appln Documented by: [id number] Nortriptyline HCl (Nortriptyline Hcl 25 Mg Cap) 150 mg PO HS LEOBARDO Stop: 04/28/21 20:59 Last Admin: 04/01/21 20:23 Dose: 150 mg Documented by: [id number] Admin: 03/31/21 19:49 Dose: 150 mg Documented by: [id number] Admin: 03/30/21 20:13 Dose: 150 mg Documented by: [id number] Admin: 03/29/21 20:37 Dose: 150 mg Documented by: [id number] Pantoprazole Sodium (Pantoprazole 40 Mg Tab) 40 mg PO QAM LEOBARDO Stop: 04/28/21 16:29 Last Admin: 04/02/21 09:03 Dose: 40 mg Documented by: [id number] Admin: 04/01/21 09:11 Dose: 40 mg Documented by: [id number] Admin: 03/31/21 07:38 Dose: 40 mg Documented by: [id number] Admin: 03/30/21 08:13 Dose: 40 mg Documented by: [id number] Admin: 03/29/21 17:18 Dose: 40 mg Documented by: [id number] Sertraline HCl (Sertraline Hcl 100 Mg Tablet) 100 mg PO DAILY LEOBARDO Stop: 04/30/21 08:59 Last Admin: 04/02/21 09:04 Dose: 100 mg Documented by: [id number] Admin: 04/01/21 09:07 Dose: 100 mg Documented by: [id number] Admin: 03/31/21 07:36 Dose: 100 mg Documented by: [id number] Trazodone HCl (Trazodone Hcl 50 Mg Tab) 50 mg PO HS LEOBARDO Stop: 04/29/21 20:59 Last Admin: 04/01/21 20:23 Dose: 50 mg Documented by: [id number] Admin: 03/31/21 19:48 Dose: 50 mg Documented by: [id number] Admin: 03/30/21 20:15 Dose: 50 mg Documented by: [id number] Vitamin D (Cholecalciferol 1,000 Units 25 Mcg Tab) 2,000 units PO TID LEOBARDO Stop: 04/28/21 16:29 Last Admin: 04/02/21 09:03 Dose: 2,000 units Documented by: [id number] Admin: 04/01/21 20:23 Dose: 2,000 units Documented by: [id number] Admin: 04/01/21 13:41 Dose: 2,000 units Documented by: [id number] Admin: 04/01/21 09:09 Dose: 2,000 units Documented by: [id number] Admin: 03/31/21 19:48 Dose: 2,000 units Documented by: [id number] Admin: 03/31/21 13:40 Dose: 2,000 units Documented by: [id number] Admin: 03/31/21 07:37 Dose: 2,000 units Documented by: [id number] Admin: 03/30/21 20:14 Dose: 2,000 units Documented by: [id number] Admin: 03/30/21 13:09 Dose: 2,000 units Documented by: [id number] Admin: 03/30/21 08:13 Dose: 2,000 units Documented by: [id number] Admin: 03/29/21 21:21 Dose: 2,000 units Documented by: [id number] Admin: 03/29/21 17:17 Dose: 2,000 units Documented by: [id number] Discontinued Medications Aripiprazole (Aripiprazole 1 Mg/Ml Oral Soln 150 Ml Btl) 2 mg PO DAILY LEOBARDO Stop: 04/28/21 16:14 Last Admin: 03/30/21 08:13 Dose: 2 mg Documented by: [id number] Admin: 03/29/21 17:16 Dose: 2 mg Documented by: [id number] Buspirone HCl (Buspirone 15 Mg Tab) 15 mg PO TID [facility] Stop: 04/28/21 16:29 Last Admin: 03/30/21 13:09 Dose: 15 mg Documented by: [id number] Admin: 03/30/21 08:13 Dose: 15 mg Documented by: [id number] Admin: 03/29/21 20:39 Dose: 15 mg Documented by: [id number] Admin: 03/29/21 17:17 Dose: 15 mg Documented by: [id number] Furosemide (Furosemide 40 Mg Tab) 40 mg PO [id number] [facility] Stop: 04/28/21 16:59 Last Admin: 03/31/21 07:37 Dose: 40 mg Documented by: [id number] Admin: 03/30/21 17:52 Dose: 40 mg Documented by: [id number] Admin: 03/30/21 08:14 Dose: 40 mg Documented by: [id number] Admin: 03/29/21 17:19 Dose: 40 mg Documented by: [id number] Furosemide (Furosemide 20 Mg Tab) 60 mg PO [id number] [facility] Stop: 04/30/21 16:59 Last Admin: 04/01/21 09:09 Dose: 60 mg Documented by: [id number] Admin: 03/31/21 18:20 Dose: 60 mg Documented by: [id number] Ceftriaxone Sodium (Rocephin) 2,000 mg in 70 mls @ 140 mls/hr IV NOW STA Stop: 03/29/21 09:02 Last Infusion: 03/29/21 09:16 Dose: 0 mls/hr Documented by: [id number] Admin: 03/29/21 08:45 Dose: 140 mls/hr Documented by: [id number] Iron Sucrose 200 mg/ Sodium (Chloride) 110 mls @ 220 mls/hr IV TODAY ONE Stop: 04/01/21 10:31 Last Infusion: 04/01/21 12:31 Dose: 0 mls/hr Documented by: [id number] Admin: 04/01/21 11:53 Dose: 220 mls/hr Documented by: [id number] Metolazone (Metolazone 5 Mg Tablet) 5 mg PO ONE ONE Stop: 03/29/21 16:31 Last Admin: 03/29/21 16:38 Dose: 5 mg Documented by: [id number] Perflutren Lipid Microsphere (Perflutren Lipid Microsphere (Definity)) 2 ml IV ONCE ONE Stop: 03/30/21 07:47 Last Admin: 03/30/21 07:47 Dose: 2 ml Documented by: [id number] Potassium Chloride (Potassium Chloride Crtab 20 Meq Tabcr) 40 meq PO NOW STA Stop: 04/02/21 09:52 Last Admin: 04/02/21 11:02 Dose: 40 meq Documented by: [id number] Quetiapine Fumarate (Quetiapine Fumarate 200 Mg Tab) 400 mg PO HS [facility] Stop: 04/28/21 20:59 Last Admin: 03/29/21 20:37 Dose: 400 mg Documented by: [id number] Sertraline HCl (Sertraline Hcl 100 Mg Tablet) 200 mg PO DAILY [facility] Stop: 04/28/21 16:29 Last Admin: 03/30/21 08:13 Dose: 200 mg Documented by: [id number] Admin: 03/29/21 17:19 Dose: 200 mg Documented by: [id number] Trazodone HCl (Trazodone Hcl 50 Mg Tab) 150 mg PO HS [facility] Stop: 04/28/21 20:59 Last Admin: 03/29/21 20:37 Dose: 150 mg Documented by: [id number] Imaging Data Radiologist's Impression: Ankle X-Ray 03/29/21 05:10 XR ankle LT min 3V routine CLINICAL HISTORY: fall. Left ankle pain COMPARISON STUDY: 10/24/2020 TECHNIQUE: 3 left ankle views FINDINGS: Bones: There is no evidence for an acute fracture or dislocation. There is a small calcaneal spur at the origin of the plantar fascia. There is no lytic or blastic lesion. Joints: The joint spaces are maintained. The bones are in anatomic alignment. Soft tissues: There is diffuse soft tissue swelling surrounding the ankle which appears to relate to the patient's body habitus. There is no radiopaque foreign body. IMPRESSION: No acute osseous pathology. ACT 112: Negative or not required by law. Electronically signed by: Ry Hamm M.D. 03/29/2021 10:49 AM Chest X-Ray 03/29/21 05:11 XR chest 1V portable CLINICAL HISTORY: weakness. Evaluate cardiopulmonary status COMPARISON STUDY: 10/24/2020 TECHNIQUE: 1 view of the chest FINDINGS: Single frontal view of the chest demonstrates the cardiomediastinal silhouette to be within normal limits. There is a decreased inspiratory effort with elevation of the hemidiaphragms and crowding of the bronchovascular markings at the lung bases and centrally. The lungs are clear of alveolar opacities. There is no evidence for pleural effusion. There is no evidence for vascular congestion. There is no acute osseous pathology. IMPRESSION: There is a decreased inspiratory effort with otherwise no acute chest disease. ACT 112: Negative or not required by law. Electronically signed by: Ry Hamm M.D. 03/29/2021 10:47 AM Blood Pressure Blood Pressure Findings: Elevated blood pressure Blood Pressure Disposition: further management by hospitalist Discharge Plan Visit Data Chief Complaint: Fall Stated Complaint: FALL ED Provider: Hellen Mendosa Discharge Problem: Fall as cause of accidental injury at home as place of occurrence, Morbid obesity with BMI of 50.0-59.9, adult, CKD (chronic kidney disease), Venous stasis of both lower extremities, Acute urinary retention Patient Disposition: Admitted As Inpatient Discharge Instructions Interventions: ED Discharge Assessment Last Done: 03/29/21 13:00 Discharge Problem: Fall as cause of accidental injury at home as place of occurrence Qualifiers: Encounter type: initial encounter Qualified Code(s): W19.XXXA - Unspecified fall, initial encounter CKD (chronic kidney disease) Qualifiers: Chronic kidney disease stage: stage 3 (moderate) Chronic kidney disease stage 3 subtype: unspecified whether 3a or 3b Qualified Code(s): N18.30 - Chronic kidney disease, stage 3 unspecified
[2021-04-02 07:01] LABS: BUN Creatinine Ratio 8.2 (10-20); Calcium 9.4 mg/dl (8.5-10.1); Creatinine Clr Calc Pharmacy 74.3 ml/min; Est GFR (African American) 45.1 ml/min; Est GFR (Non-African American) 38.9 ml/min; Magnesium 2.2 mg/dl (1.8-2.4); Potassium 3.2 mmol/L (3.5-5.1)
[2021-04-02] MEDS: ATORVASTATIN 40 MG TAB PO SCH (09:02)
[2021-04-02] MEDS: DULoxetine HCL 30 MG CAP PO SCH (09:02)
[2021-04-02] MEDS: BISOPROLOL FUMARATE 5 MG TAB PO SCH (09:02)
[2021-04-02] MEDS: CIPROFLOXACIN HCL 0.3% OP SOLN 2.5 ML BTL OPR SCH ×3 (09:02→15:16)
[2021-04-02] MEDS: ASPIRIN 81 MG ECTAB PO SCH (09:03)
[2021-04-02] MEDS: CLOPIDOGREL BISULFATE 75 MG TAB PO SCH (09:03)
[2021-04-02] MEDS: CHOLECALCIFEROL 1,000 UNITS 25 MCG TAB PO SCH ×2 (09:03→14:13)
[2021-04-02] MEDS: PANTOprazole 40 MG TAB PO SCH (09:03)
[2021-04-02] MEDS: GABAPENTIN 300 MG CAP PO SCH ×2 (09:03→14:13)
[2021-04-02] MEDS: SERTRALINE HCL 100 MG TABLET PO SCH (09:04)
[2021-04-02] MEDS: allopurinoL 100 MG TAB PO SCH (09:04)
[2021-04-02] MEDS: FAMOTIDINE 20 MG TAB PO SCH (09:04)
[2021-04-02] MEDS: buPROPion XL 300 MG TABCR PO SCH (09:04)
[2021-04-02] MEDS: CYANOCOBALAMIN 500 MCG TABLET (VITAMIN B-12) PO SCH (09:04)
[2021-04-02] MEDS: MUPIROCIN 2% OINT 22 GM TUBE EXT SCH (09:05)
[2021-04-02] MEDS: ENOXAPARIN INJ 40 MG/0.4 ML SYR SQ SCH (09:05)
[2021-04-02] MEDS ORDERED: POTASSIUM CHLORIDE CRTAB 20 MEQ TABCR PO STA (09:51)
[2021-04-02] MEDS ORDERED: IRON SUCROSE 300 MG in SODIUM CHLORIDE 0.9% 250 ML IV ONE (11:00)
[2021-04-02] MEDS: CYCLOBENZAPRINE HCL 5 MG TAB PO PRN (11:03)
--- NOTE | 2021-04-02 12:24 | Psychiatric Progress Note ---
Date of Service April 02, 2021 Impression / Recommendations Impression 60 yo woman with psych history of depression and anxiety and one prior psychiatric hospitalization (>10 years ago) who was admitted for mobility challenges and lymphedema. Psychiatry was consulted for recommendations regarding her psychiatric medication management. Diagnostically consistent with MDD and likely RAGHU. She has a long history of depression but no history of psychotic features or primary psychotic disorders nor inez. As noted in supplemental note yesterday-she was at very high risk for serotonin syndrome given extensive psychiatric polypharmacy and there remains no justifiable indication for dual antipsychotic treatment. Also given her low motivation, low energy, and metabolic disorder likely now impacting her ability to ambulate this is even more reason to remove any potential medications that can contribute negatively to weight gain and metabolic side effects. Remains stable with medication changes. Plan for discontinuation of sertraline in next few days. (1) MDD (major depressive disorder), recurrent episode, moderate: -stable from psychiatric standpoint for discharge -wellbutrin xl 300mg qd -cymbalta 30 mg qd -trazodone 50 mg qhs -nortriptyline 150 mg hs -gabapentin 300 mg TID -decrease sertraline to 50 mg qd today and stop in 5 days. -psych liason setting up follow-up for psychiatry and information to schedule therapy once she completes rehab Risk Factors Assessment Do You Have Access To A Gun?: No Previous Attempt: No Protective Factors Assessment Stable Relationships: Yes Supportive Family: Yes Interval History Identifying Information 60 yo woman with psych history of depression and anxiety and one prior psychiatric hospitalization (>10 years ago) who was admitted for mobility challenges and lymphedema. Psychiatry was consulted for recommendations regarding her psychiatric medication management. Chief Complaint "I'm good, I haven't had to take any naps". Review of Systems Notes See subjective Subjective Subjective Patient was seen & assessed and interval progress reviewed. She hasn't noticed any negative effects from the medication adjustments. Reports euthymic mood without SI. She slept well and hasn't been tired during the day noting she hasn't taken any daytime naps. Reviewed that having her CPAP her has also helped with this. Reviewed medication adjustments made to her psych meds while she was here and plan to discontinue sertraline with ongoing taper to discontinuation which she remains in agreement with. No SSRI withdrawal side effects. No psy chosis. Agrees to follow-up with psychiatry and to start therapy. Physical Exam Psychiatric Orientation: alert and oriented x 3 Apperance: appropriately dressed and appropriately groomed Eye Contact: good eye contact Motor Behavior: no abnormal motor movements Speech: normal rate/rhythm/volume of speech Affect: euthymic affect Mood: no depressed mood and no anxious mood Thought Process: goal directed thought process Thought Content: reality based without delusions Suicidal Thoughts: denies suicidal thoughts Homicidal Thoughts: denies homicidal thoughts Hallucinations: no auditory hallucinations and no visual hallucinations Cognition: attention grossly intact and language grossly intact Estimated Intelligence: consistent with education level Insight: + fair insight Judgement: + fair judgement Vital Signs (Past 24 Hours) Last Vital Signs Temp 36.7 C 04/02/21 11:36 Pulse 69 04/02/21 11:36 Resp 18 04/02/21 11:36 BP 111/68 04/02/21 11:36 Pulse Ox 90 04/02/21 11:36 Results & Data ([facility]) Laboratory Results Laboratory Results - last 24 hr 04/01/21 04/01/21 04/01/21 14:30 14:30 14:30 Hgb Sodium Potassium Chloride Carbon Dioxide Anion Gap BUN Creatinine Est Cr Clr Drug Dosing Est GFR ( Amer) Est GFR (Non-Af Amer) BUN/Creatinine Ratio Glucose Calcium Magnesium Iron Transferrin Transferrin % Sat COVID-19 Eval Order Covid19 at [facility] SARS-CoV-2 (PCR) NEGATIVE RSV (Molecular) Negative 04/02/21 04/02/21 05:52 05:59 Hgb 11.8 L Sodium 136 Potassium 3.2 L Chloride 89 L Carbon Dioxide 42 H* Anion Gap 5.0 BUN 12 Creatinine 1.47 H Est Cr Clr Drug Dosing 74.3 Est GFR ( Amer) 45.1 Est GFR (Non-Af Amer) 38.9 BUN/Creatinine Ratio 8.2 L Glucose 100 H Calcium 9.4 Magnesium 2.2 Iron 52 Transferrin 217 Transferrin % Sat 17 COVID-19 Eval Order SARS-CoV-2 (PCR) RSV (Molecular) Current Inpatient Medications Current Inpatient Medications: Current Inpatient Medications Acetaminophen (Acetaminophen 325 Mg Tab) 650 mg PO Q4H PRN PRN Reason: pain/fever Stop: 04/28/21 15:47 Last Admin: 04/01/21 13:44 Dose: 650 mg Documented by: Allopurinol (Allopurinol 100 Mg Tab) 100 mg PO BID [facility] Stop: 04/28/21 20:59 Last Admin: 04/02/21 09:04 Dose: 100 mg Documented by: Amiloride HCl (Amiloride Hcl 5 Mg Tab) 5 mg PO DAILY [facility] Stop: 04/28/21 16:14 Last Admin: 04/01/21 09:07 Dose: 5 mg Documented by: Aspirin (Aspirin 81 Mg Ectab) 81 mg PO QAM [facility] Stop: 04/28/21 16:29 Last Admin: 04/02/21 09:03 Dose: 81 mg Documented by: Atorvastatin Calcium (Atorvastatin 40 Mg Tab) 40 mg PO DAILY [facility] Stop: 04/28/21 16:29 Last Admin: 04/02/21 09:02 Dose: 40 mg Documented by: Bisoprolol Fumarate (Bisoprolol Fumarate 5 Mg Tab) 5 mg PO DAILY [facility] Stop: 04/28/21 16:29 Last Admin: 04/02/21 09:02 Dose: 5 mg Documented by: Bupropion HCl (Bupropion Xl 300 Mg Tabcr) 300 mg PO QAM [facility] Stop: 04/28/21 16:29 Last Admin: 04/02/21 09:04 Dose: 300 mg Documented by: Ciprofloxacin (Ciprofloxacin Hcl 0.3% Op Soln 2.5 Ml Btl) 1 drops OPR Q4HWA [facility] Stop: 04/10/21 16:29 Last Admin: 04/02/21 11:32 Dose: 1 drops Documented by: Clopidogrel Bisulfate (Clopidogrel Bisulfate 75 Mg Tab) 75 mg PO DAILY [facility] Stop: 04/28/21 16:29 Last Admin: 04/02/21 09:03 Dose: 75 mg Documented by: Cyanocobalamin (Cyanocobalamin 500 Mcg Tablet (Vitamin B-12)) 1,000 mcg PO DAILY [facility] Stop: 04/28/21 16:29 Last Admin: 04/02/21 09:04 Dose: 1,000 mcg Documented by: Cyclobenzaprine HCl (Cyclobenzaprine Hcl 5 Mg Tab) 5 mg PO TID PRN PRN Reason: muscle spasm Stop: 04/28/21 15:47 Last Admin: 04/02/21 11:03 Dose: 5 mg Documented by: Duloxetine HCl (Duloxetine Hcl 30 Mg Cap) 30 mg PO QAM [facility] Stop: 04/28/21 16:29 Last Admin: 04/02/21 09:02 Dose: 30 mg Documented by: Enoxaparin Sodium (Enoxaparin Inj 40 Mg/0.4 Ml Syr) 40 mg SQ Q12 [facility] Stop: 04/28/21 16:59 Last Admin: 04/02/21 09:05 Dose: 40 mg Documented by: Famotidine (Famotidine 20 Mg Tab) 20 mg PO QAM [facility] Stop: 04/28/21 16:29 Last Admin: 04/02/21 09:04 Dose: 20 mg Documented by: Furosemide (Furosemide 40 Mg Tab) 40 mg PO BID17 [facility] Stop: 05/01/21 16:59 Last Admin: 04/01/21 17:18 Dose: 40 mg Documented by: Gabapentin (Gabapentin 300 Mg Cap) 300 mg PO TID [facility] Stop: 04/28/21 16:29 Last Admin: 04/02/21 09:03 Dose: 300 mg Documented by: Iron Sucrose 300 mg/ Sodium (Chloride) 265 mls @ 176.667 mls/hr IV 1100 ONE Stop: 04/02/21 12:29 Last Admin: 04/02/21 11:31 Dose: 176.7 mls/hr Documented by: Montelukast Sodium (Montelukast Sodium 10 Mg Tablet) 10 mg PO PM [facility] Stop: 04/28/21 20:59 Last Admin: 04/01/21 20:23 Dose: 10 mg Documented by: Mupirocin (Mupirocin 2% Oint 22 Gm Tube) 1 appln EXT BID [facility] Stop: 04/28/21 20:59 Last Admin: 04/02/21 09:05 Dose: 1 appln Documented by: Nortriptyline HCl (Nortriptyline Hcl 25 Mg Cap) 150 mg PO HS [facility] Stop: 04/28/21 20:59 Last Admin: 04/01/21 20:23 Dose: 150 mg Documented by: Ondansetron HCl (Ondansetron Inj 2 Mg/Ml 2 Ml Vial) 4 mg IV Q6H PRN PRN Reason: Nausea Stop: 04/28/21 15:47 Pantoprazole Sodium (Pantoprazole 40 Mg Tab) 40 mg PO QAM [facility] Stop: 04/28/21 16:29 Last Admin: 04/02/21 09:03 Dose: 40 mg Documented by: Sertraline HCl (Sertraline Hcl 100 Mg Tablet) 100 mg PO DAILY [facility] Stop: 04/30/21 08:59 Last Admin: 04/02/21 09:04 Dose: 100 mg Documented by: Trazodone HCl (Trazodone Hcl 50 Mg Tab) 50 mg PO HS [facility] Stop: 04/29/21 20:59 Last Admin: 04/01/21 20:23 Dose: 50 mg Documented by: Vitamin D (Cholecalciferol 1,000 Units 25 Mcg Tab) 2,000 units PO TID [facility] Stop: 04/28/21 16:29 Last Admin: 04/02/21 09:03 Dose: 2,000 units Documented by:
--- NOTE | 2021-04-02 14:48 | Discharge Summary ---
Date of Service date of admission - 2020 date of discharge - April 02, 2021 Admission HPI Per Admitting Provider Mrs. Tristan is a 60-year-old white female who is morbidly obese. She has a PMHx of morbid obesity, chronic lymphedema, ANDRZEJ (not using her CPAP), CKD, asthma (although I suspect is likely obesity hypoventilation syndrome), HTN, HLD, peripheral neuropathy, mixed anxiety depression and chronic low back pain. She was brought to the emergency department today due to the inability to walk. She has chronic lymphedema and takes Lasix 80 mg daily. Despite this, reports increasing swelling of her legs which is prohibiting her ability to walk. She came to the ED where she was found to be hemodynamically stable and not hypoxic. Her lab data was unremarkable (creatinine 1.32 which is her baseline). She does have a slightly elevated CK at 222 but otherwise the rest of her lab data was unremarkable. Her Covid test was negative. Chest x-ray was negative. A Phillips catheter was inserted that yielded 1500 cc. Patient reports that she did not feel the urge to urinate and has not been having difficulty urinating. She was found to have multiple wounds of her bilateral lower extremities that were covered in dog care. She reports that these are chronic and she was to see the wound clinic this upcoming week to establish care. She denies fevers, chills, or mucopurulent drainage of the legs. She was unable to ambulate and was an unsafe discharge from the ED thus was hospitalized for further evaluation and care. Principal Diagnosis 1. ambulatory dysfunction 2. acute diastolic CHF 3. urinary retention 4. viral URI 5. psychiatric medication polypharmacy Discharge Exam gen - NAD, morbidly obese mouth - MMM eyes - injected right conjunctiva, no significant drainage; left eye clear nose - congested neck - mild JVD heart - RRR, s1 s2, no obvious murmur lungs - decreased BS bases, o/w CTA b/l abd - soft NT ND BS+ ext - 1-2+ edema b/l, wraps in place, stasis changes b/l shins; no cellulitis psych - a/o x 3 Discharge Data Allergies Allergy/AdvReac Type Severity Reaction Status Date / Time Corticosteroids Allergy Intermediate RASH Verified 03/25/21 15:28 (Glucocorticoids) morphine Allergy Intermediate MOUTH Verified 03/25/21 15:28 SWELLS/FACE SWELLS orange Allergy Intermediate HIVES Verified 03/25/21 15:28 Penicillins Allergy Intermediate RASH/HIVES Verified 03/25/21 15:28 prednisone Allergy Intermediate RED RASH Verified 03/25/21 15:28 pregabalin Allergy Intermediate GOOFY Verified 03/25/21 15:28 zolpidem Allergy Intermediate UNSURE Verified 03/25/21 15:28 orange (food color) Allergy Mild rash Verified 03/25/21 15:28 Consultations Psychiatry Wound Care PT, OT Procedures Performed 1. Venofer x 1 infusion 2. Echocardiogram - * mildly dilated left ventricle with normal systolic function, EF 60-65% * no regional wall motion abnormalities * mild LVH * no diastolic dysfunction * right ventricle with severe dilatation; systolic function normal * dilated right atrium * no valvular abnormalities * normal RV systolic pressure Ordered Studies Ankle X-Ray 03/29/21 05:10 XR ankle LT min 3V routine CLINICAL HISTORY: fall. Left ankle pain COMPARISON STUDY: 10/24/2020 TECHNIQUE: 3 left ankle views FINDINGS: Bones: There is no evidence for an acute fracture or dislocation. There is a small calcaneal spur at the origin of the plantar fascia. There is no lytic or blastic lesion. Joints: The joint spaces are maintained. The bones are in anatomic alignment. Soft tissues: There is diffuse soft tissue swelling surrounding the ankle which appears to relate to the patient's body habitus. There is no radiopaque foreign body. IMPRESSION: No acute osseous pathology. ACT 112: Negative or not required by law. Electronically signed by: Ry Hamm M.D. 03/29/2021 10:49 AM Chest X-Ray 03/29/21 05:11 XR chest 1V portable CLINICAL HISTORY: weakness. Evaluate cardiopulmonary status COMPARISON STUDY: 10/24/2020 TECHNIQUE: 1 view of the chest FINDINGS: Single frontal view of the chest demonstrates the cardiomediastinal silhouette to be within normal limits. There is a decreased inspiratory effort with elevation of the hemidiaphragms and crowding of the bronchovascular markings at the lung bases and centrally. The lungs are clear of alveolar opacities. There is no evidence for pleural effusion. There is no evidence for vascular congestion. There is no acute osseous pathology. IMPRESSION: There is a decreased inspiratory effort with otherwise no acute chest disease. ACT 112: Negative or not required by law. Electronically signed by: Ry Hamm M.D. 03/29/2021 10:47 AM KUB X-Ray 03/29/21 15:48 XR KUB/Abdomen 1 view CLINICAL HISTORY: urinary retention- ? stool burden. COMPARISON STUDY: No previous studies for comparison. TECHNIQUE: Single view of the abdomen. FINDINGS: The bowel gas pattern is within normal limits without evidence for dilatation or obstruction. There is no significant fecal stasis. There is evidence for hepatomegaly with the tip of the liver extending below the iliac crest. No abnormal calcifications are seen along the course of the urinary tracts bilaterally. No acute osseous pathology. IMPRESSION: 1.No acute intra-abdominal abnormality. No evidence for fecal stasis. ACT 112: Negative or not required by law. Electronically signed by: Ry Hamm M.D. 03/29/2021 6:11 PM Venous Doppler Study 04/01/21 10:11 ULTRASOUND BILATERAL LOWER EXTREMITY VENOUS CLINICAL HISTORY: Chronic lower extremity edema. COMPARISON STUDY: Left lower extremity venous ultrasound dated 10/24/2020 TECHNIQUE: Real-time, grayscale, and color Doppler sonography of the deep veins of the right and left lower extremity was performed from the inguinal crease to the calf. Compression and augmentation were utilized. FINDINGS: There is no sonographic evidence of deep venous thrombosis identified in the right or left lower extremity. The common femoral, superficial femoral, and popliteal veins are patent and normally compressible bilaterally. The greater saphenous vein and the profunda femoris vein at the junction with the common femoral vein are clear in both legs. The visualized calf veins are patent bilaterally. IMPRESSION: There is no sonographic evidence of deep venous thrombosis identified in the right or left lower extremity. ACT 112: Negative or not required by law. Electronically signed by: Will Hussein M.D. 04/01/2021 1:32 PM Hospital Course (1) Ambulatory dysfunction: Likely multifactorial -- psychotropic polypharmacy, volume overload state leading to severe lower extremity edema, viral URI, etc may have all contributed. Was seen by psychiatry and her psychotropic medications were pared down significantly. Volume overload - was diuresed during the visit. B12 level was wnl. She no evidence of gout or inflammatory arthropathy on exam that would have caused difficulty ambulating. Received PT/OT while here and will transfer to [facility] at discharge for ongoing rehab. (2) Bilateral lower extremity edema: Acute/chronic diastolic CHF. much improved with IV diuresis. Resume lasix and amiloride post-discharge. (3) ANDRZEJ (obstructive sleep apnea): She reports that her CPAP machine was recalled. In addition to ANDRZEJ she likely has obesity hypoventilation syndrome and associated significant right heart strain because of this (see full echo results above). Will need referral back to pulmonary/sleep post-d/c to get CPAP set back up for her. While at [facility] please continue CPAP 10cm H20. (4) CKD (chronic kidney disease) stage 3, GFR 30-59 ml/min: Baseline Cr 1.2 to 1.4. Discharge Cr level was 1.4. (5) Hypertension: Continue beta rose Continue lasix + amiloride (6) Hyperlipidemia: Continue Lipitor (7) Depression with anxiety: Psychiatry was heavily involved in medication management. Discharge regimen: * wellbutrin XL 300mg daily (no change) * cymbalta 30mg daily (no change) * gabapentin 300mg TID (no change) * nortriptyline 150mg HS (no change) * sertraline 50mg daily x 5 days, then discontinue completely * trazodone 50mg HS (dose decreased from 150mg ) Buspar, abilify, and seroquel were fully discontinued. With the above changes the patient did not feel so groggy/sleepy throughout the day. She will need close psychiatric follow-up post-discharge for her complex med regimen. (8) Asthma: Minimal wheezing during the visit, likely due to her URI. (9) Morbid obesity with BMI of 50.0-59.9, adult: BMI 54 (10) Conjunctivitis: RIGHT likely viral, but in the event it is bacterial, cipro eye drops x 7 days (11) Viral URI: COVID neg x 2 RSV neg with associated right sided conjunctivitis (12) Iron deficiency anemia: Ferritin = 34. 2nd to gastric bypass state. venofer 200mg IV x 1 then venofer 300mg IV x 1 given while here. patient counseled she will need additional IV iron in the future. b12 level wnl. Discharge hemoglobin 11.8. (13) Urinary retention: s/p phillips insertion in the ER at time of presentation. By report had 1000cc of urine in bladder? Phillips was removed just prior to discharge. Will need to watch carefully for recurrent retention while at [facility]. (14) Acute on chronic heart failure with preserved ejection fraction (HFpEF): Acute/chronic diastolic CHF as above. Diuresed copious amount of fluid during the visit. Discharge weight 175kg. She does have significant RV dilatation on echo putting her at risk of cor pulmonale. Cardiology f/u advised. Continue beta rose. Continue lasix. Continue amiloride. Total Time Total Time Spent Total Time Spent (In Minutes): 45 Discharge Plan Discharge Items Patient Disposition: Transfer Inpatient Rehab Fac Reason For Visit: URINARY RETENTION, LEG WOUNDS Discharge Diagnosis: 1. ambulatory dysfunction - likely multifactorial including fluid overload,viral URI, and potentially polypharmacy from numerous psychiatric medications. 2. acute diastolic CHF/fluid overload - improved with aggressive diuresis. 3. bilateral leg wounds from chronic venous insufficiency/lymphedema - stable. 4. iron deficiency anemia - likely due to previous gastric bypass; IV iron given on 04/01 and 04/02. 5. viral upper respiratory infection - COVID x 2 negative; RSV negative. 6. right eye conjunctivitis - likely due to #5; cannot exclude bacterial cause. 7. psychiatric medication polypharmacy - seen by psychiatry during the stay. Activity: Resume your previous activity Non-emergency contact: Primary Care Provider and Junior Financial Analyst Call non-emergency contact if: you have any medication questions and your symptoms worsen Follow-up/Referrals: [facility] [Other] - 04/14/21 2:15 pm (Therapy appointment, please call to reschedule if unable to attend) [facility] [Other] - 04/15/21 10:00 am (Psychiatry ~ Medication Management) Sherman Sanchez MD [Physician] - 04/08/21 10:30 am (WILL HELP WITH CPAP.) Jai Watkins MD [Physician] - 05/01/21 9:45 am Etelvina Cazares DO [Primary Care Provider] - Diet: Heart Healthy Fluids: 2000ml (8 cups) Addtl Attending Provider Instructions: 1. patient will need to see psychiatry after she discharges from [facility]. [facility] will be assisting with those arrangements. While at [facility], if psych services are available, would consult them to follow all of her recent medication changes. 2. sertraline 50mg once daily for 5 days then stop. Last dose will be on 04/07/21. 3. CPAP of 10cm of H20 at night-time/sleep and with naps. 4. recheck BMP and mag levels in 3 days for stability. 5. RESUME LASIX 40mg twice daily on 04/03/21. 6. RESUME AMILORIDE the AM of 04/04/21. 7. wound care to lower extremity wounds per protocol. 8. daily weights please due to recent acute diastolic CHF/volume overload. 9. patient had urinary retention at time of admission on 03/29. Catheter was removed AM of 04/02. Please continue to observe for urinary retention issues. 10. Patient will need to see Dr Sherman Sanchez, her sleep doctor, to obtain a new CPAP machine. The pt's current CPAP machine was recalled. Pending Studies at Discharge: No Stand-Alone Forms: [facility] Skilled Items Patient informed of condition?: Yes DNR: No Discharge Level of Care: Acute rehab Communicable Disease: Yes (nonspecific, resolving viral URI; NOT COVID, NOT RSV) Discharge Prognosis: Improving Lines: None Urinary Catheter: No Medications and DC Order Prescriptions: Continued clopidogrel [Plavix] 75 mg tablet 75 mg PO DAILY Qty: 90 RF: 1 cyanocobalamin (vitamin B-12) [Vitamin B-12] 1,000 mcg tablet 1,000 mcg PO DAILY Qty: 30 RF: 0 pantoprazole 40 mg tablet,delayed release (DR/EC) 40 mg PO QAM Qty: 30 RF: 5 montelukast 10 mg tablet 10 mg PO PM Qty: 90 RF: 1 bisoprolol fumarate 5 mg tablet 5 mg PO DAILY Qty: 90 RF: 1 mupirocin 2 % ointment 1 applic topical BID Qty: 30 RF: 3 albuterol sulfate [Ventolin HFA] 90 mcg/actuation HFA aerosol inhaler 2 puff INHALATION Q4H PRN (Reason: Shortness Of Breath Or Wheezing) Qty: 18 RF: 3 multivitamin Tablet 1 tab PO QAM Qty: 90 RF: 1 famotidine 20 mg tablet 20 mg PO QAM Qty: 90 RF: 1 cholecalciferol (vitamin D3) [Vitamin D3] 50 mcg (2,000 unit) capsule 2,000 unit PO TID Qty: 270 RF: 1 calcium carbonate 300 mg (750 mg) tablet,chewable 900 mg PO DAILY PRN (Reason: dyspepsia) Qty: 270 RF: 0 bupropion HCl 300 mg tablet extended release 24 hr 300 mg PO QAM Qty: 90 RF: 1 atorvastatin 40 mg tablet 40 mg PO DAILY Qty: 90 RF: 1 aspirin 81 mg tablet,delayed release (DR/EC) 81 mg PO QAM Qty: 90 RF: 1 gabapentin 300 mg capsule 300 mg PO TID Qty: 270 RF: 1 allopurinol 100 mg tablet 100 mg PO BID Qty: 180 RF: 1 nortriptyline 50 mg capsule 150 mg PO HS Qty: 270 RF: 1 duloxetine 30 mg capsule,delayed release(DR/EC) 30 mg PO QAM Qty: 90 RF: 1 metoclopramide HCl 5 mg tablet 5 mg PO QID PRN (Reason: acid reflux) Qty: 90 RF: 0 acetaminophen 500 mg tablet 1,000 mg PO Q4H PRN (Reason: fever or pain) Qty: 90 RF: 0 albuterol sulfate 2.5 mg /3 mL (0.083 %) solution for nebulization 2.5 mg inhalation Q6H Qty: 180 RF: 1 amiloride 5 mg tablet 5 mg PO DAILY Qty: 90 RF: 1 furosemide [Lasix] 20 mg tablet 40 mg PO BID Qty: 90 RF: 5 Changed trazodone 50 mg tablet 50 mg PO HS Qty: 30 RF: 2 sertraline 100 mg tablet 50 mg PO DAILY 5 Days Qty: 5 RF: 0 Discontinued aripiprazole [Abilify] 2 mg tablet 2 mg PO DAILY Qty: 90 RF: 1 quetiapine 400 mg tablet 400 mg PO HS Qty: 90 RF: 1 buspirone 15 mg tablet 15 mg PO TID Qty: 270 RF: 1 sulfamethoxazole-trimethoprim [Bactrim DS] 800-160 mg tablet 1 tab PO BID 10 Days Qty: 20 RF: 0 cyclobenzaprine 5 mg tablet 5 mg PO TID PRN (Reason: muscle spasm) Qty: 30 RF: 1 Discharge Orders: Discharge Order (Routine); Ordered 04/02/21 Ordered By: Candido Bethea Admission Data Admit Date/Time: 03/29/21 09:09 Attending Provider: Candido Bethea Admit Provider: Christian Urbano Primary Care Provider: Etelvina Cazares Other Providers: Christian Urbano ; Myrna Shah ; Jayne Bullard ; Janis Silva ; Chris Cornejo ; [facility] Coding Level of Care Code D/C DAY MANAGEMENT >30 MINS Diagnoses Ambulatory dysfunction R26.2 Bilateral lower extremity edema R60.0 ANDRZEJ (obstructive sleep apnea) G47.33 CKD (chronic kidney disease) stage 3, GFR 30-59 ml/min N18.32 Chronic kidney disease stage 3 subtype: stage 3b (GFR 30-44) Hypertension I10 Hyperlipidemia E78.5 Depression with anxiety F41.8 Asthma J45.30 Asthma complication type: uncomplicated Asthma persistence: persistent Asthma severity: mild Morbid obesity with BMI of 50.0-59.9, adult E66.01; Z68.43 Conjunctivitis H10.9 Viral URI J06.9 Iron deficiency anemia D50.9 Urinary retention R33.9 Acute on chronic heart failure with preserved ejection fraction (HFpEF) I50.33
== END 2021-04-02 16:08 | DRG 91 ==
LOC: ED 03:03 → EDINP 09:09 → SUATTDRO 09:09 → EDINP 13:00 → 3E 15:44

== ENCOUNTER 2021-09-16 11:11 | Inpatient (IN) ==
[2021-09-16] MEDS ORDERED: ACETAMINOPHEN 1,000 MG/100 ML VIAL IV STA (11:48)
[2021-09-16] MEDS ORDERED: SODIUM CHLORIDE 0.9% 1000ML 2,000 ML IV ONE (11:48)
[2021-09-16] MEDS ORDERED: ALBUT/IPRATROP 3MG/0.5MG NEB 3 ML VIAL NEB STA (11:48)
[2021-09-16] MEDS ORDERED: FAMOTIDINE 20MG IV PUSH 20 MG/5 ML SYR IV STA (11:49)
[2021-09-16] MEDS ORDERED: CEFEPIME 2,000 MG/20 ML VIAL IV STA (11:50)
[2021-09-16 12:22] LABS: Basophils # (auto) 0.01 K/uL (0-0.2); Basophils % (auto) 0.1 %; Eosinophils # (auto) 0.03 K/uL (0-0.5); Eosinophils % (auto) 0.3 %; Hematocrit (blood only) 38.5 % (37-47); Hemoglobin 12.5 g/dL (12.0-16.0); Immature Granulocytes # (auto) 0.01 K/uL (0.00-0.02); Immature Granulocytes % (auto) 0.1 %; Lymphocytes # (auto) 0.53 K/uL (1.2-3.4); Lymphocytes % (auto) 5.1 %; Mean Corpuscular Hemoglobin 27.4 pg (25-34); Mean Corpuscular Hgb Conc 32.5 g/dL (32-36); Mean Corpuscular Volume 84.2 fL (80-100); Monocytes # (auto) 0.62 K/uL (0.11-0.59); Neutrophils # (auto) 9.17 K/uL (1.4-6.5); Neutrophils % (auto) 88.4 %; Platelet Count 203 K/uL (130-400); RDW Coefficient of Variation 16.3 % (11.5-14.5); RDW Standard Deviation 49.7 fL (36.4-46.3); Red Blood Count 4.57 M/uL (4.2-5.4); White Blood Count 10.37 K/uL (4.8-10.8)
[2021-09-16 12:32] LABS: INR 1.1 (0.9-1.1); Partial Thromboplastin Ratio 0.9; Partial Thromboplastin Time 24.8 Seconds (21.0-31.0); Prothrombin Time 11.4 Seconds (9.0-12.0)
[2021-09-16 12:58] LABS: Albumin Globulin Ratio 1.1 (0.9-2); Albumin Level 3.6 gm/dl (3.4-5.0); BUN Creatinine Ratio 9.8 (10-20); Bilirubin,Total 0.7 mg/dl (0.2-1.0); C Reactive Protein 8.37 mg/dl (0-0.5); Calcium 8.8 mg/dl (8.5-10.1); Creatinine Clr Calc Pharmacy 76.1 ml/min; Est GFR (African American) 42.7 ml/min; Est GFR (Non-African American) 36.8 ml/min; Globulin 3.3 gm/dl (2.5-4.0); Magnesium 1.4 mg/dl (1.7-2.4); Phosphorus 1.8 mg/dl (2.5-4.9); Potassium 3.6 mmol/L (3.5-5.1); Total Protein 6.9 gm/dl (6.0-8.3)
[2021-09-16 13:02] LABS: Troponin I High Sensitivity 5.6 pg/ml (0-14)
--- NOTE | 2021-09-16 13:03 | XRay Report ---
XR chest 1V portable HISTORY: SEPSIS COMPARISON: Chest 08/11/2021. FINDINGS: There is a right shoulder prosthesis again noted. The cardiac silhouette remains borderline enlarged. No focal lung consolidations to suggest pneumonia. No evidence for pulmonary edema. No ple ural effusions. No pneumothorax. IMPRESSION: No significant change compared to the prior study. No acute process. ACT 112: Negative or not required by law. Electronically signed by: Ji Velasquez M.D. 09/16/2021 1:02 PM
--- NOTE | 2021-09-16 13:05 | XRay Report ---
XR foot LT 2V CLINICAL HISTORY: plantar ulcer, fever, eval for bony involvement. COMPARISON STUDY: Left ankle 03/29/2021. FINDINGS: There is a 2.3 cm focal skin ulceration at the plantar aspect of the midfoot. No underlying bony destruction to suggest an osteomyelitis. There is soft tissue swelling within the mid to distal left foot. There are plantar and posterior calcaneal spurs. Mild to moderate degenerative changes wi thin the left foot. The Lisfranc joint is intact. No fracture or dislocation. IMPRESSION: A 2.3 cm skin ulceration at the plantar aspect of the mid foot. No underlying bony destr uction to suggest an osteomyelitis. ACT 112: Negative or not required by law. Electronically signed by: Ji Velasquez M.D. 09/16/2021 1:04 PM
[2021-09-16] MEDS ORDERED: DAPTOmycin 725 MG in SYRINGE 0 ML IV ONE (13:10)
[2021-09-16] MEDS: MAGNESIUM SULFATE / D5W 1 GM/100 ML BAG IV SCH ×5 (14:14→21:02)
--- NOTE | 2021-09-16 14:24 | History & Physical Report ---
Date of Service September 16, 2021 Assessment & Plan (1) Sepsis: Plan: Sepsis without shock and no further evidence of organ dysfunction secondary to likely left lower leg cellulitis - SIRS- 3 qSOFA- 1 - WBC 10 with NLR 4.5:1- normal lactate - PCT 0.32, CRP 8.37 - blood culture and MRSA swab pending- patient with negative MRSA swab in 11/04 - Urine culture pending - X ray performed of the left lower leg- negative for osteo or GAS - COVID/FLU pending to rule out URI symptoms - Continue with Cefepime 2GM IV q8 and Daptomycin 6mg/kg daily IV - Received 1 liter crystalloid in EMD- continue with 1 more liter of LR bolus for tachycardia and urine output (2) Cellulitis: Plan: As above- will obtain Ultrasound of Left lower extremity to rule out DVT (3) COVID-19: Plan: COVID 19 positive- day of illness ~ day 2 - GFR 36.8 - symptoms of nasal congestion and overall body weakness - Follow renal function and consider remdesivir in AM - supportive care at this time - isolation precautions (4) Asthma: Plan: Continue LAVINIA inhaler and PRN nebulizer (5) Severe obstructive sleep apnea: Plan: CPAP 13 with 2L oxygen bled in continue - remains with elevated HCO3 likely component of obesity hypoventilation syndrome as well (6) CKD (chronic kidney disease) stage 3, GFR 30-59 ml/min: Plan: 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 at 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 - continue to follow with volume resuscitation (7) Dyslipidemia: Plan: Continue statin- atorvastatin 40mg - history of TCVA as well - continue with Plavix and ASA (8) Hypertension: Plan: Continue for now- hold bumex and metolazone--- replete electrolytes - likely restart in morning pending hemodyanmics over the pm (9) Chronic heart failure with preserved ejection fraction: Plan: As above- follow hemodyanmics - likely diurese in the morning following volume from crystalloid and electrolyte replacement - Last ECHO 08/05 with EF 60-65% mild LVH normal valves and normal RVSP (10) Acid reflux: Plan: Continue pantoprazole 40 mg PO daily (11) Peripheral neuropathy: Plan: Continue gabapentin (12) DJD (degenerative joint disease): Plan: As above (13) Lymphedema: Plan: Chronic - continue metolazone and bumex in the morning likely (14) Hypomagnesemia: Plan: Secondary to loss with diruetics and decrease intake as well as water loss from fever - replete to ~2.4 until diet picks up - noted with muscle cramps in legs and back (15) Hypophosphatemia: Plan: - As above- 12mmol NAPO4 - replete following mag (16) Allergic rhinitis: Plan: Likely component of sinus congestion and lacrimation - she reports that she does get this every year - follow with COVID and influenza (17) Anxiety and depression: Plan: Continue Buproprion, Nortriptyline, Duloxetine History of Present Illness Primary Care Provider: Etelvina Cazares, DO 61 YOF with medical history of: HTN, COPD, ANDRZEJ, HFpEF, Morbid Obesity, RV dilation, iron deficiency anemia(requiring venofir), GERD, Anxiety/Depression, CKDIII, DJD, bilateral knee replacements, Lymphedema. Patient presents to the EMD today for complaints of fatigue, headache, fevers and increase in left lower leg erythema and swelling. Patient was previously being treated for left lower extremity cellulitis at [facility]- where she just completed a course of doxycycline ~ 2 weeks ago. Since that time she has noted increase in the erythema to the leg. She also has a wound on her left lateral foot that was from a blister that was reportedly cut out- she reports that she is dressing that every day with [employer] at home. It is currently not dressed. Patient also endorses that for the past 2 days she has had an increase in frontal headache with congestion, draining clear sinus drainage and awakening in the morning with sore throat. This was also associated with myalgias, and left eye redness and itching. She reports that she had some optic abx eye drops at home that she used and this is mostly resolved. Lacrimation from that eye was clear. She reports that she has not had any diarrhea and her appetite has remained normal, however she is noted to have low magnesium and low phosphorus. In the EMD she had an appropriate sepsis work up to include blood cultures, PCT, Lactate, and CBC. She was started on Daptomycin and Cefepime. She was given 1 liter of crystalloid and 1 gm of Magnesium. Patient will receive another liter of crystalloid as she has not voided since she has been here and continue with mag and phos placement. Wound care consultation for her left foot ulceration, as well as Ultrasound of left lower leg to evaluate for DVT. Patient overall states she feels better than when she came in but remains febrile. Awaiting COVID and influenza test, will add on MRSA swab as well. Allergies Allergy/AdvReac Type Severity Reaction Status Date / Time Corticosteroids Allergy Intermediate RASH Verified 09/16/21 15:01 (Glucocorticoids) morphine Allergy Intermediate MOUTH Verified 09/16/21 15:01 SWELLS/FACE SWELLS orange Allergy Intermediate HIVES Verified 09/16/21 15:01 Penicillins Allergy Intermediate RASH/HIVES Verified 09/16/21 15:01 prednisone Allergy Intermediate RED RASH Verified 09/16/21 15:01 pregabalin Allergy Intermediate GOOFY Verified 09/16/21 15:01 zolpidem Allergy Intermediate UNSURE Verified 09/16/21 15:01 adhesive Allergy Mild Skin rash Verified 09/20/21 14:42 localized orange (food color) Allergy Mild rash Verified 09/16/21 15:01 Home Medications Medication Instructions Recorded Confirmed Type cyanocobalamin (vitamin B-12) 1,000 mcg PO DAILY #30 tab 09/25/20 09/16/21 Rx 1,000 mcg tablet (Vitamin B-12) bupropion HCl 300 mg 24 hr tablet, 300 mg PO QAM #90 tab 01/29/21 09/16/21 Rx extended release allopurinol 100 mg tablet 100 mg PO BID #180 tab 02/03/21 09/16/21 Rx duloxetine 30 mg capsule,delayed 30 mg PO QAM #90 cap 02/19/21 09/16/21 Rx release amiloride 5 mg tablet 5 mg PO DAILY #90 tab 04/02/21 09/16/21 Rx trazodone 50 mg tablet 50 mg PO HS #30 tab 04/02/21 09/16/21 Rx clopidogrel 75 mg tablet (Plavix) 75 mg PO DAILY #90 tab 04/18/21 09/16/21 Rx pantoprazole 40 mg tablet,delayed 40 mg PO QAM #30 tab 04/18/21 09/16/21 Rx release CPAP Supplies #1 ea 04/22/21 09/12/21 Rx albuterol sulfate 90 mcg/actuation 2 puff INHALATION Q4H PRN #18 gm 05/21/21 09/16/21 Rx aerosol inhaler (Ventolin HFA) montelukast 10 mg tablet 10 mg PO PM #90 tab 05/29/21 09/16/21 Rx fluticasone 250 mcg-salmeterol 50 1 inh INHALATION BID #1 inhaler 06/25/21 09/16/21 Rx mcg/dose blistr powdr for inhalation (Advair Diskus) gabapentin 300 mg capsule 300 mg PO TID #270 cap 06/27/21 09/16/21 Rx bumetanide 2 mg tablet 4 mg PO BID #120 tab 07/15/21 09/16/21 Rx albuterol sulfate 2.5 mg INHALATION Q6H #180 ml 07/18/21 09/16/21 Rx aspirin 81 mg tablet,delayed 81 mg PO QAM #90 tab 07/18/21 09/16/21 Rx release atorvastatin 40 mg tablet 40 mg PO DAILY #90 tab 07/18/21 09/16/21 Rx calcium carbonate 300 mg (750 mg) 900 mg PO DAILY PRN #270 tab 07/18/21 09/16/21 Rx chewable tablet cholecalciferol (vitamin D3) 50 2,000 unit PO TID #270 cap 07/18/21 09/16/21 Rx mcg (2,000 unit) capsule (Vitamin D3) famotidine 20 mg tablet 20 mg PO QAM #90 tab 07/18/21 09/16/21 Rx multivitamin 1 tab PO QAM #90 tab 07/18/21 09/16/21 Rx nortriptyline 50 mg capsule 150 mg PO HS #270 cap 07/18/21 09/16/21 Rx buspirone 15 mg tablet 15 mg PO TID #270 tab 09/11/21 09/16/21 Rx metolazone 5 mg tablet 5 mg PO DAILY PRN #30 tab 09/12/21 09/16/21 Rx acetaminophen 500 mg tablet 1,000 mg PO Q4H PRN #90 tab 09/16/21 09/16/21 Rx metoclopramide HCl 5 mg tablet 5 mg PO QID PRN #90 tab 09/16/21 09/16/21 Rx betamethasone dipropionate 0.05 % 1 applic TOPICAL BID PRN #45 g 09/22/21 Rx topical cream enoxaparin 40 mg/0.4 mL 40 mg SUBCUT QAM #7 ml 09/22/21 Rx subcutaneous syringe (Lovenox) Past Med/Surg History Medical History (Updated 09/20/21 @ 15:03 by Neda Turner MD) Acid reflux Allergic rhinitis Arthritis Cellulitis and abscess of left leg Chronic back pain Chronic cutaneous venous stasis ulcer Chronic heart failure with preserved ejection fraction Chronic knee pain after total replacement of both knee joints CKD (chronic kidney disease) stage 3, GFR 30-59 ml/min 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; 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- DISCOVERED WITH INCIDENTAL IMAGING Degenerative joint disease, shoulder, right Dyslipidemia Gout Heart failure with preserved ejection fraction History of CVA (cerebrovascular accident) Hypertension Left leg weakness Lumbar spinal stenosis Lymphedema Morbid obesity with BMI of 50.0-59.9, adult MRSA (methicillin resistant staph aureus) culture positive Other ovarian cyst, left side Peripheral neuropathy Prediabetes Recurrent cellulitis of lower leg Sepsis TIA (transient ischemic attack) 2017- ON PLAVIX Venous stasis of both lower extremities Vitamin D deficiency Surgical History H/O total knee replacement B/L H/O ventral hernia repair History of appendectomy History of carpal tunnel release B/L History of cholecystectomy S/P tonsillectomy and adenoidectomy Status post total shoulder arthroplasty (10/17/18) R Family History Mother Diabetes Gallbladder disease Hypertension Coronary heart disease Myocardial infarction S/P CABG x 3 Sister Hodgkins lymphoma Brother Kidney disease Grandmother Breast cancer Aunt Ovarian cancer Father , 02/11/20. Peripheral vascular disease Daughter Diabetes Other Cancer Denies family history of Prostate cancer Colorectal cancer Social History Smoking Status: Former smoker Age Started Using Tobacco: 22; Age Quit Using Tobacco: 24; Years Smoked: 2; Second Hand Exposure: No; Hx Alcohol Use: No Hx Substance Use: No Preferred Language: Arabic 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 Ability: Effective Visual Impairment: Limited Hearing Ability: Normal Lining [place] Required: No Beliefs That Will Affect Care: None and [employer] L[employer] Beliefs: Congregational marital status: marital status details: ; lives with parents & 1 daughter Current Living Situation: Family Current Living Situation Comment: daughter and mom current occupational status: disabled other: 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; 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 Feels Safe at Home: Yes Safety Concerns: Feels Safe At This Time Childhood Exposure to Second-Hand Smoke: No caffeine: Yes Dental Care, Regularly: No Physical Activity Frequency: Does not Exercise Seatbelt Use: always Sunscreen Use: Yes Assistive Devices: CPAP, Nebulizer and Walker Review of Systems Review of Systems: REVIEW OF SYSTEMS: Constitutional: (+) fever, sweats or chills Eyes: No diplopia, no worsening or blurred vision ENT: (+) sinus pressure, nasal drainage, left eye lacrimation, sore throat, normal hearing, no trouble swallowing Respiratory: No cough, sputum, dyspnea at rest or on exertion Cardiovascular: No chest pain, tightness or palpitations Abdomen: (+) nausea, No pain, vomiting, diarrhea or constipation Musculoskeletal: (+) knee joint pain, left calf pain, swelling Neurologic: No weakness, numbness/tingling, or balance problems Psychiatric: No anxiety or depression Skin: (+) erythema and warmth left leg, chronic venous ulceration Physical Exam Physical Exam: PHYSICAL EXAM: General: awake, alert, no apparent distress Head: Normocephalic, atraumatic, headache ENT: PERRLA, EOMI, no pharyngeal exudate, mucous membranes drym, left eye with some injectate to medial aspect, no drainage, Neuro: AAO x 3, speech clear and appropriate, strength intact bilaterally 5/5, sensation intact and equal all extremities and dermatomes, no pronator drift Chest: equal rise and fall of the chest, no accessory muscle use, no heaves or thrills, Clear to auscultation, on room air, Cardiac: Regular rate and rhythm, telemetry reviewed, skin warm dry, cap refill <3 seconds, peripheral pulses +2 no JVD, no murmur, +2 edema left leg GI: NABS x 4 quadrants, soft, nontender to palpation, no rebound, guarding or tenderness : Spontaneously voiding, denies pain, no CVA tenderness, Psych: Normal mood and affect Skin: chronic venous ulcerations bilaterally lt>rt, scabs to both legs, left lateral foot ulceration without drainage and granulation of the wound bed, no surrounding pain or bogginess Results & Data Results & Data ([facility]) Vital Signs (Past 12 Hours) Vital Signs Temp Pulse Resp BP Pulse Ox 09/16/21 13:15 101 H 27 H 95 09/16/21 13:00 102 H 27 H 09/16/21 12:45 109 H 29 H 09/16/21 12:30 101 H 23 97 09/16/21 12:15 102 H 26 H 09/16/21 12:00 104 H 27 H 09/16/21 11:46 102 H 18 95 09/16/21 11:45 101 H 24 97 09/16/21 11:40 101 H 26 H 97 09/16/21 11:16 38.2 C H 107 H 18 148/70 H 90 Laboratory Results Abnormal lab results 09/16/21 09/16/21 09/16/21 Range/Units 11:54 11:54 11:54 RDW Std Deviation 49.7 H (36.4-46.3) fL RDW Coeff of Cleo 16.3 H (11.5-14.5) % Neut # (Auto) 9.17 H (1.4-6.5) K/uL Lymph # (Auto) 0.53 L (1.2-3.4) K/uL [place] # (Auto) 0.62 H (0.11-0.59) K/uL ESR 75 H (0-30) mm/hr Sodium 133 L (136-145) mmol/L Chloride 93 L (98-107) mmol/L Carbon Dioxide 33 H (21-32) mmol/L Creatinine 1.53 H (0.6-1.2) mg/dl BUN/Creatinine Ratio 9.8 L (10-20) Glucose 123 H (70-99(Fasting)) mg/dl Phosphorus 1.8 L (2.5-4.9) mg/dl Magnesium 1.4 L (1.7-2.4) mg/dl C-Reactive Protein 8.37 H (0-0.5) mg/dl Diagnostic Findings Chest X-Ray 09/16/21 11:46 XR chest 1V portable HISTORY: SEPSIS COMPARISON: Chest 08/11/2021. FINDINGS: There is a right shoulder prosthesis again noted. The cardiac silhouette remains borderline enlarged. No focal lung consolidations to suggest pneumonia. No evidence for pulmonary edema. No pleural effusions. No pneumothorax. IMPRESSION: No significant change compared to the prior study. No acute process. ACT 112: Negative or not required by law. Electronically signed by: Ji Velasquez M.D. 09/16/2021 1:02 PM Foot X-Ray 09/16/21 11:49 XR foot LT 2V CLINICAL HISTORY: plantar ulcer, fever, eval for bony involvement. COMPARISON STUDY: Left ankle 03/29/2021. FINDINGS: There is a 2.3 cm focal skin ulceration at the plantar aspect of the midfoot. No underlying bony destruction to suggest an osteomyelitis. There is soft tissue swelling within the mid to distal left foot. There are plantar and posterior calcaneal spurs. Mild to moderate degenerative changes within the left foot. The Lisfranc joint is intact. No fracture or dislocation. IMPRESSION: A 2.3 cm skin ulceration at the plantar aspect of the mid foot. No underlying bony destruction to suggest an osteomyelitis. ACT 112: Negative or not required by law. Electronically signed by: Ji Velasquez M.D. 09/16/2021 1:04 PM Medications Administered Home Medications cyanocobalamin (vitamin B-12) 1,000 mcg tablet (Vitamin B-12) 1,000 mcg PO DAILY #30 tab 09/25/20 [Rx Confirmed 09/12/21] bupropion HCl 300 mg 24 hr tablet, extended release 300 mg PO QAM #90 tab 01/29/21 [Rx Confirmed 09/12/21] allopurinol 100 mg tablet 100 mg PO BID #180 tab 02/03/21 [Rx Confirmed 09/12/21] duloxetine 30 mg capsule,delayed release 30 mg PO QAM #90 cap 02/19/21 [Rx Confirmed 09/12/21] amiloride 5 mg tablet 5 mg PO DAILY #90 tab 04/02/21 [Rx Confirmed 09/12/21] trazodone 50 mg tablet 50 mg PO HS #30 tab 04/02/21 [Rx Confirmed 09/12/21] clopidogrel 75 mg tablet (Plavix) 75 mg PO DAILY #90 tab 04/18/21 [Rx Confirmed 09/12/21] pantoprazole 40 mg tablet,delayed release 40 mg PO QAM #30 tab 04/18/21 [Rx Confirmed 09/12/21] CPAP Supplies #1 ea 04/22/21 [Rx Confirmed 09/12/21] albuterol sulfate 90 mcg/actuation aerosol inhaler (Ventolin HFA) 2 puff INHALATION Q4H PRN #18 gm 05/21/21 [Rx Confirmed 09/12/21] montelukast 10 mg tablet 10 mg PO PM #90 tab 05/29/21 [Rx Confirmed 09/12/21] fluticasone 250 mcg-salmeterol 50 mcg/dose blistr powdr for inhalation (Advair Diskus) 1 inh INHALATION BID #1 inhaler 06/25/21 [Rx Confirmed 09/12/21] gabapentin 300 mg capsule 300 mg PO TID #270 cap 06/27/21 [Rx Confirmed 09/12/21] bumetanide 2 mg tablet 4 mg PO BID #120 tab 07/15/21 [Rx Confirmed 09/12/21] albuterol sulfate 2.5 mg INHALATION Q6H #180 ml 07/18/21 [Rx Confirmed 09/12/21] aspirin 81 mg tablet,delayed release 81 mg PO QAM #90 tab 07/18/21 [Rx Confirmed 09/12/21] atorvastatin 40 mg tablet 40 mg PO DAILY #90 tab 07/18/21 [Rx Confirmed 09/12/21] calcium carbonate 300 mg (750 mg) chewable tablet 900 mg PO DAILY PRN #270 tab 07/18/21 [Rx Confirmed 09/12/21] cholecalciferol (vitamin D3) 50 mcg (2,000 unit) capsule (Vitamin D3) 2,000 unit PO TID #270 cap 07/18/21 [Rx Confirmed 09/12/21] famotidine 20 mg tablet 20 mg PO QAM #90 tab 07/18/21 [Rx Confirmed 09/12/21] multivitamin 1 tab PO QAM #90 tab 07/18/21 [Rx Confirmed 09/12/21] nortriptyline 50 mg capsule 150 mg PO HS #270 cap 07/18/21 [Rx Confirmed 09/12/21] betamethasone dipropionate 0.05 % topical cream 1 applic TOPICAL BID PRN #45 g 08/19/21 [Rx Confirmed 09/12/21] buspirone 15 mg tablet 15 mg PO TID #270 tab 09/11/21 [Rx Confirmed 09/12/21] metolazone 5 mg tablet 5 mg PO DAILY PRN #30 tab 09/12/21 [Rx Confirmed 09/12/21] acetaminophen 500 mg tablet 1,000 mg PO Q4H PRN #90 tab 09/16/21 [Rx] metoclopramide HCl 5 mg tablet 5 mg PO QID PRN #90 tab 09/16/21 [Rx] Active Medications Magnesium Sulfate/Dextrose (Magnesium Sulfate / D5w) 1 gm in 100 mls @ 100 mls/hr IV Q1H LEOBARDO Stop: 09/16/21 15:10 Last Admin: 09/16/21 14:14 Dose: 100 mls/hr Documented by: Magnesium Sulfate/Dextrose (Magnesium Sulfate / D5w) 1 gm in 100 mls @ 50 mls/hr IV Q2H LEOBARDO Stop: 09/16/21 20:29 Miscellaneous Information (Daptomycin Consult Active) 1 ea N/A UD PRN PRN Reason: Consult Stop: 10/16/21 13:09 Magnesium Sulfate/Dextrose (Magnesium Sulfate / D5w) 1 gm in 100 mls @ 100 mls/hr IV Q1H LEOBARDO Stop: 09/16/21 15:10 Last Admin: 09/16/21 14:14 Dose: 100 mls/hr Documented by: [id number] Discontinued Medications Albuterol (Albut/Ipratrop 3mg/0.5mg Neb 3 Ml Vial) 3 ml NEB NOW STA; Protocol Stop: 09/16/21 11:49 Last Admin: 09/16/21 12:26 Dose: 3 ml Documented by: [id number] Sodium Chloride (Nss 1000ml) 2,000 mls @ 999 mls/hr IV .Q2H1M ONE Stop: 09/16/21 13:48 Last Infusion: 09/16/21 14:15 Dose: 0 mls/hr Documented by: [id number] Admin: 09/16/21 12:27 Dose: 999 mls/hr Documented by: [id number] Acetaminophen (Ofirmev) 1,000 mg in 100 mls @ 400 mls/hr IV NOW STA Stop: 09/16/21 12:02 Last Infusion: 09/16/21 13:02 Dose: 0 mls/hr Documented by: [id number] Admin: 09/16/21 12:25 Dose: 400 mls/hr Documented by: [id number] Famotidine (Pepcid 20mg Iv Push) 20 mg in 5 mls @ 2.5 mls/min IV NOW STA Stop: 09/16/21 11:50 Last Admin: 09/16/21 12:25 Dose: 2.5 mls/min Documented by: [id number] Cefepime HCl (Maxipime) 2,000 mg in 20 mls @ 5 mls/min IV NOW STA; Protocol Stop: 09/16/21 11:53 Last Admin: 09/16/21 12:25 Dose: 5 mls/min Documented by: [id number] Daptomycin 725 mg/ Syringe 14.5 mls @ 7.25 mls/min IV NOW ONE; Protocol Stop: 09/16/21 13:11 Last Admin: 09/16/21 14:07 Dose: 7.25 mls/min Documented by: [id number] ECG Additional Comments: Accelerated Junctional rhythm Left axis deviation Low voltage QRS Incomplete right bundle branch block Possible Anterolateral infarct (cited on or before 01-OCT-2017) Abnormal ECG When compared with ECG of 29-MAR-2021 05:30, Junctional rhythm has replaced Sinus rhythm Nonspecific T wave abnormality no longer evident in Inferior leads Code Status & VTE Plan Code Status CODE: FULL VTE: SCDS, Lovenox 40mg sub q daily VTE Prophylaxis Plan VTE Prophylaxis will be ordered: Yes Supervising Physician Co-Signing Physician Notes Attending addendum: I have physically seen this patient, have supervised the NOVA's activities, and agree with the H&P unless as otherwise noted. Assessment and Plan: Sepsis/left lower extremity cellulitis- SIRS Follow blood cultures Follow MRSA swab Follow urine culture and sensitivities Empiric cefepime 2 g IV every 8 hours and daptomycin 6 mg kilogram IV daily Order ultrasound left lower extremity assess for possible DVT COVID-19 infection- Primarily head and neck symptoms of nasal congestion, with some generalized body weakness If progressive symptoms, placed on remdesivir IV Asthma/ANDRZEJ- Continue usual inhalers CPAP 13 with 2 L oxygen at bedtime Remaining orders and notations as noted PG Care Time/CCT Total # of Minutes Spent Total Time Spent with Patient: Total time spent is greater than 50% in coordination of care (as documented) at patient's floor/unit and/or counseling patient: Coding Level of Care Code 84565 Initial Inpt Care Lvl 3 Diagnoses Sepsis A41.9 Cellulitis L03.90 Asthma J45.909 Severe obstructive sleep apnea G47.33 CKD (chronic kidney disease) stage 3, GFR 30-59 ml/min N18.32 Chronic kidney disease stage 3 subtype: stage 3b (GFR 30-44) Dyslipidemia E78.5 Hypertension I10 Chronic heart failure with preserved ejection fraction I50.32 Acid reflux K21.9 Peripheral neuropathy G62.9 DJD (degenerative joint disease) M19.90 Lymphedema I89.0 Hypomagnesemia E83.42 Hypophosphatemia E83.39 Allergic rhinitis J30.9 Anxiety and depression F41.9; F32.A COVID-19 U07.1 (1) CKD (chronic kidney disease) stage 3, GFR 30-59 ml/min Chronic kidney disease stage 3 subtype: stage 3b (GFR 30-44) Qualified Code(s): N18.32 - Chronic kidney disease, stage 3b
[2021-09-16 15:15] LABS: Influenza A virus by PCR Negative (Neg); Influenza B virus by PCR Negative (Neg); RSV by PCR Negative (Neg)
[2021-09-16 15:18] LABS: SARS CoV2 RNA(COVID-19) InHosp POSITIVE (Negative)
--- NOTE | 2021-09-16 16:23 | Emergency Department Note ---
Impression & Plan SIRS (systemic inflammatory response syndrome), Hypomagnesemia, Hypophosphatemia, Cellulitis of left lower extremity, Chronic ulcer of left foot, COVID-19 ED Provider Note NAME: CELIO ARGUELLES AGE: 61 SEX: F ARRIVES VIA: Walk-In INFORMANT: Patient ED PROVIDER(S): Giles Burleson MD CHIEF COMPLAINT: SOB, body aches PLAN: Disposition: Admit MEDICAL DECISION MAKING: The patient is a pleasant 61-year-old woman with a past medical history of morb id obesity, CKD, hypertension, hyperlipidemia, chronic heart failure with preserved EF, GERD, chronic back pain, lymphedema who presents to the emergency department from home for evaluation of generalized fatigue, body aches and shortness of breath with mild cough and congestion that evolved over the past several days. The patient follows with the wound clinic for a chronic left plantar ulcer and she reports she was seen yesterday for this. On arrival the patient is acute on chronically ill-appearing but no acute distress, febrile to 38.2 with heart rate in the 100s and vital signs otherwise stable. O2 saturation was 90% upon arrival and so the patient was placed on supplemental oxygen. Left lower extremity with edema of the foot and ankle extending proximally to lower leg with mild warmth and tenderness. There is a chronic 3 cm lateral plantar ulcer of the left midfoot. No crepitus. EKG without overt acute ischemia. Chest x-ray negative for acute cardiopulmonary process. Plan films of the left foot does not show evidence of osseous involvement. WBC, H/H and platelets within normal limits. Chemistry without metabolic acidosis. Creatinine 1.5 similar to prior ranges of values in the setting of CKD. Magnesium 1.4 and phosphorus 1.8 with repletion provided. High-sensitivit y troponin 5.6, within normal limits. ESR and CRP are elevated at 75 and 8.3, respectively. Procalcitonin is not significantly elevated. Influenza and COVID-19 PCR pending. Given the patient's presentation with SIRS criteria infectious source of her left foot ulcer the patient was in agreement with plan for admission. She was treated empirically with cefepime and daptomycin. 30cc/kg of ideal body weight administer. Patient hemodynamically stable. Case was discussed with Dr. Garcia, [facility] hospitalist, who will evaluate the patient for admission. Covid-19 PCR subsequently positive. Management per admitting team who is aware. Triage Nursing notes reviewed and agree them. Prior medical records reviewed Vital Signs: reviewed and remarkable for fever, tachycardia. Differential diagnosis: Viral syndrome, otitis, pharyngitis, pneumonia, influenza, meningitis, urinary tract infection, sepsis, bacteremia, as well as other pathologies. ER treatment provided: See below. Diagnostics interpreted by me: ECG: Sinus tachycardia, 102 bpm, incomplete right bundle branch block, no overt ST elevation or depression, QTC 443, QRS 108. Cardiac Monitoring: An order for continuous cardiac monitoring was placed and de monstrated Sinus tachycardia, 102 bpm, no ectopy., Laboratory studies: See below Imaging studies: See below Consultation(s): Case was discussed with Dr. Garcia, [facility] hospitalist, who will evaluate the patient for admission. HPI: The patient is a pleasant 61-year-old woman with a past medical history of morbid obesity, CKD, hypertension, hyperlipidemia, chronic heart failure with preserved EF, GERD, chronic back pain, lymphedema who presents to the emergency department from home for evaluation of generalized fatigue, body aches and shortness of breath with mild cough and congestion that evolved over the past several days. The patient follows with the wound clinic for a chronic left plantar ulcer and she reports she was seen yesterday for this. ROS: See above HPI for pertinent positives & negatives. A total of 10 systems reviewed and were otherwise negative. VITALS:See Below PHYSICAL EXAMINATION: GENERAL: Awake, alert, acute on chronically ill-appearing, in no distress, BMI 66.8. HENT: Normocephalic, atraumatic. Oropharynx with dry mucous membranes and otherwise unremarkable. EYES: Normal conjunctiva. Sclera non-icteric. NECK: Supple. No nuchal rigidity. FROM. No JVD. RESPIRATORY: Clear to auscultation. CARDIAC: Tachycardic rate, normal rhythm. Extremities warm and well perfused. Pulses equal. ABDOMEN: Soft, non-distended. No tenderness to palpation. No rebound or guarding. No masses. RECTAL: Deferred. MUSCULOSKELETAL: Chest examination reveals no tenderness. The back is symmetrical on inspection without obvious abnormality. There is no CVA tenderness to palpation. No joint edema. LOWER EXTREMITIES: Left lower extremity with edema of the foot and ankle extending proximally to lower leg with mild warmth and tenderness. There is a chronic 3 cm lateral plantar ulcer of the left midfoot. No crepitus. NEURO: Normal sensorium. No sensory or motor deficits noted. SKIN: No rash or jaundice noted. ED COURSE: Times/Reassessments: Procedures: None PDMP: Reviewed and no issues Critical Care: I have personally spent greater than 45 minutes of critical care time in the direct management of this patient. This includes bedside care, interpretation of diagnostic studies, and testing, discussion with consultants, patient, and family members, and other required patient management activities. This 45 minutes is in excess of all separately billable procedures. 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- DISCOVERED WITH INCIDENTAL IMAGING Degenerative joint disease, shoulder, right Dyslipidemia Gout Heart failure with preserved ejection fraction History of CVA (cerebrovascular accident) Hypertension Left leg weakness Lumbar spinal stenosis Lymphedema Morbid obesity with BMI of 50.0-59.9, adult MRSA (methicillin resistant staph aureus) culture positive Other ovarian cyst, left side Peripheral neuropathy Prediabetes Recurrent cellulitis of lower leg TIA (transient ischemic attack) 2017- ON [place] Venous stasis of both lower extremities Vitamin D deficiency Surgical History H/O total knee replacement B/L H/O ventral hernia repair History of appendectomy History of carpal tunnel release B/L History of cholecystectomy S/P tonsillectomy and adenoidectomy Status post total shoulder arthroplasty (10/17/18) R Family History Mother Diabetes Gallbladder disease Hypertension Coronary heart disease Myocardial infarction S/P CABG x 3 Sister Hodgkins lymphoma Brother Kidney disease Grandmother Breast cancer Aunt Ovarian cancer Father , 02/11/20. 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 Beliefs That Will Affect Care: None and Taoist Taoist Beliefs: Jew marital status details: ; lives with parents & 1 daughter Current Living Situation: Family Current Living Situation Comment: daughter and mom current occupational status: disabled other: worked in [employer] in [employer]; worked for [employer] district Feels Safe at Home: Yes Safety Concerns: Feels Safe At This Time Childhood Exposure to Second-Hand Smoke: No caffeine: Yes Dental Care, Regularly: No Physical Activity Frequency: Does not Exercise Seatbelt Use: always Sunscreen Use: Yes Assistive Devices: BiPap, Denture - Upper, Glasses and Walker Allergies Allergies Allergy/AdvReac Type Severity Reaction Status Date / Time Corticosteroids Allergy Intermediate RASH Verified 09/16/21 15:01 (Glucocorticoids) morphine Allergy Intermediate MOUTH Verified 09/16/21 15:01 SWELLS/FACE SWELLS orange Allergy Intermediate HIVES Verified 09/16/21 15:01 Penicillins Allergy Intermediate RASH/HIVES Verified 09/16/21 15:01 prednisone Allergy Intermediate RED RASH Verified 09/16/21 15:01 pregabalin Allergy Intermediate GOOFY Verified 09/16/21 15:01 zolpidem Allergy Intermediate UNSURE Verified 09/16/21 15:01 orange (food color) Allergy Mild rash Verified 09/16/21 15:01 Home Meds Previous Rx's Medication Instructions Recorded cyanocobalamin (vitamin B-12) 1,000 mcg PO DAILY #30 tab 09/25/20 1,000 mcg tablet (Vitamin B-12) bupropion HCl 300 mg 24 hr tablet, 300 mg PO QAM #90 tab 01/29/21 extended release allopurinol 100 mg tablet 100 mg PO BID #180 tab 02/03/21 duloxetine 30 mg capsule,delayed 30 mg PO QAM #90 cap 02/19/21 release amiloride 5 mg tablet 5 mg PO DAILY #90 tab 04/02/21 trazodone 50 mg tablet 50 mg PO HS #30 tab 04/02/21 clopidogrel 75 mg tablet (Plavix) 75 mg PO DAILY #90 tab 04/18/21 pantoprazole 40 mg tablet,delayed 40 mg PO QAM #30 tab 04/18/21 release CPAP Supplies #1 ea 04/22/21 albuterol sulfate 90 mcg/actuation 2 puff INHALATION Q4H PRN #18 gm 05/21/21 aerosol inhaler (Ventolin HFA) montelukast 10 mg tablet 10 mg PO PM #90 tab 05/29/21 fluticasone 250 mcg-salmeterol 50 1 inh INHALATION BID #1 inhaler 06/25/21 mcg/dose blistr powdr for inhalation (Advair Diskus) gabapentin 300 mg capsule 300 mg PO TID #270 cap 06/27/21 bumetanide 2 mg tablet 4 mg PO BID #120 tab 07/15/21 albuterol sulfate 2.5 mg INHALATION Q6H #180 ml 07/18/21 aspirin 81 mg tablet,delayed 81 mg PO QAM #90 tab 07/18/21 release atorvastatin 40 mg tablet 40 mg PO DAILY #90 tab 07/18/21 calcium carbonate 300 mg (750 mg) 900 mg PO DAILY PRN #270 tab 07/18/21 chewable tablet cholecalciferol (vitamin D3) 50 2,000 unit PO TID #270 cap 07/18/21 mcg (2,000 unit) capsule (Vitamin D3) famotidine 20 mg tablet 20 mg PO QAM #90 tab 07/18/21 multivitamin 1 tab PO QAM #90 tab 07/18/21 nortriptyline 50 mg capsule 150 mg PO HS #270 cap 07/18/21 betamethasone dipropionate 0.05 % 1 applic TOPICAL BID PRN #45 g 08/19/21 topical cream buspirone 15 mg tablet 15 mg PO TID #270 tab 09/11/21 metolazone 5 mg tablet 5 mg PO DAILY PRN #30 tab 09/12/21 acetaminophen 500 mg tablet 1,000 mg PO Q4H PRN #90 tab 09/16/21 metoclopramide HCl 5 mg tablet 5 mg PO QID PRN #90 tab 09/16/21 Results & Data (ED) Vital Signs Vital Signs - 24 hr 09/16/21 11:16 09/16/21 11:40 09/16/21 11:45 Temperature 38.2 C H Temperature Source Temporal Artery Scan Pulse Rate 107 H 101 H 101 H Pulse Rate from SpO2 Sensor Respiratory Rate 18 26 H 24 Respiratory Effort / Characteristics Blood Pressure 148/70 H Blood Pressure Mean 96 Pulse Oximetry 90 97 97 Oxygen Delivery Method Room Air Oxygen Flow Rate 1 Sepsis Recent Fever Within 48 Hours Yes Sepsis New/Unexplained Change in Mental Status No Sepsis Action Taken by Nursing Physician Notified 09/16/21 11:46 09/16/21 12:00 09/16/21 12:15 Temperature Temperature Source Pulse Rate 102 H 104 H 102 H Pulse Rate from SpO2 Sensor Respiratory Rate 18 27 H 26 H Respiratory Effort / Characteristics Non-Labored Blood Pressure Blood Pressure Mean Pulse Oximetry 95 Oxygen Delivery Method Nasal Cannula Oxygen Flow Rate 1 Sepsis Recent Fever Within 48 Hours Sepsis New/Unexplained Change in Mental Status Sepsis Action Taken by Nursing 09/16/21 12:16 09/16/21 12:30 09/16/21 12:45 Temperature Temperature Source Pulse Rate 101 H 109 H Pulse Rate from SpO2 Sensor 101 H Respiratory Rate 23 29 H Respiratory Effort / Characteristics Spontaneous Blood Pressure Blood Pressure Mean Pulse Oximetry 97 Oxygen Delivery Method Nasal Cannula Oxygen Flow Rate Sepsis Recent Fever Within 48 Hours Sepsis New/Unexplained Change in Mental Status Sepsis Action Taken by Nursing 09/16/21 13:00 09/16/21 13:15 09/16/21 13:30 Temperature Temperature Source Pulse Rate 102 H 101 H 101 H Pulse Rate from SpO2 Sensor Respiratory Rate 27 H 27 H Respiratory Effort / Characteristics Non-Labored Spontaneous Non-Labored Spontaneous Blood Pressure Blood Pressure Mean Pulse Oximetry 95 93 Oxygen Delivery Method Nasal Cannula Nasal Cannula Oxygen Flow Rate 1 1 Sepsis Recent Fever Within 48 Hours Sepsis New/Unexplained Change in Mental Status Sepsis Action Taken by Nursing 09/16/21 13:45 09/16/21 14:00 Temperature Temperature Source Pulse Rate 101 H 97 H Pulse Rate from SpO2 Sensor Respiratory Rate 19 Respiratory Effort / Characteristics Blood Pressure 114/60 Blood Pressure Mean 78 Pulse Oximetry 99 95 Oxygen Delivery Method Oxygen Flow Rate Sepsis Recent Fever Within 48 Hours Sepsis New/Unexplained Change in Mental Status Sepsis Action Taken by Nursing Laboratory Data Attestation: I reviewed the patient's lab results. Result diagrams: 09/16/21 11:54 09/16/21 11:54 Lab Results 09/16/21 09/16/21 09/16/21 Range/Units 11:54 11:54 11:54 WBC (4.8-10.8) K/uL RBC (4.2-5.4) M/uL Hgb (12.0-16.0) g/dL Hct (37-47) % MCV (80-100) fL MCH (25-34) pg MCHC (32-36) g/dL RDW Std Deviation (36.4-46.3) fL RDW Coeff of Cleo (11.5-14.5) % Plt Count (130-400) K/uL MPV (7.4-10.4) fL Immature Gran % (Auto) % Neut % (Auto) % Lymph % (Auto) % [place] % (Auto) % Eos % (Auto) % Baso % (Auto) % Neut # (Auto) (1.4-6.5) K/uL Lymph # (Auto) (1.2-3.4) K/uL [place] # (Auto) (0.11-0.59) K/uL Eos # (Auto) (0-0.5) K/uL Baso # (Auto) (0-0.2) K/uL Immature Gran # (Auto) (0.00-0.02) K/uL ESR 75 H (0-30) mm/hr PT (9.0-12.0) Seconds INR (0.9-1.1) APTT (21.0-31.0) Seconds PTT Ratio Sodium 133 L (136-145) mmol/L Potassium 3.6 (3.5-5.1) mmol/L Chloride 93 L (98-107) mmol/L Carbon Dioxide 33 H (21-32) mmol/L Anion Gap 7 (3-11) BUN 15 (6-23) mg/dl Creatinine 1.53 H (0.6-1.2) mg/dl Est Cr Clr Drug Dosing 76.1 ml/min Est GFR ( Amer) 42.7 ml/min Est GFR (Non-Af Amer) 36.8 ml/min BUN/Creatinine Ratio 9.8 L (10-20) Glucose 123 H (70-99(Fasting)) mg/dl Lactate (0.4-2.0) mmol/L Calcium 8.8 (8.5-10.1) mg/dl Phosphorus 1.8 L (2.5-4.9) mg/dl Magnesium 1.4 L (1.7-2.4) mg/dl Total Bilirubin 0.7 (0.2-1.0) mg/dl AST 21 (13-39) U/L ALT 17 (7-52) U/L Alkaline Phosphatase 89 (34-104) U/L Troponin I High Sens 5.6 (0-14) pg/ml C-Reactive Protein 8.37 H (0-0.5) mg/dl Total Protein 6.9 (6.0-8.3) gm/dl Albumin 3.6 (3.4-5.0) gm/dl Globulin 3.3 (2.5-4.0) gm/dl Albumin/Globulin Ratio 1.1 (0.9-2) Procalcitonin 0.32 (0-0.5) ng/ml 09/16/21 09/16/21 09/16/21 Range/Units 11:54 11:54 11:54 WBC 10.37 (4.8-10.8) K/uL RBC 4.57 (4.2-5.4) M/uL Hgb 12.5 (12.0-16.0) g/dL Hct 38.5 (37-47) % MCV 84.2 (80-100) fL MCH 27.4 (25-34) pg MCHC 32.5 (32-36) g/dL RDW Std Deviation 49.7 H (36.4-46.3) fL RDW Coeff of Cleo 16.3 H (11.5-14.5) % Plt Count 203 (130-400) K/uL MPV 10.0 (7.4-10.4) fL Immature Gran % (Auto) 0.1 % Neut % (Auto) 88.4 % Lymph % (Auto) 5.1 % [place] % (Auto) 6.0 % Eos % (Auto) 0.3 % Baso % (Auto) 0.1 % Neut # (Auto) 9.17 H (1.4-6.5) K/uL Lymph # (Auto) 0.53 L (1.2-3.4) K/uL [place] # (Auto) 0.62 H (0.11-0.59) K/uL Eos # (Auto) 0.03 (0-0.5) K/uL Baso # (Auto) 0.01 (0-0.2) K/uL Immature Gran # (Auto) 0.01 (0.00-0.02) K/uL ESR (0-30) mm/hr PT 11.4 (9.0-12.0) Seconds INR 1.1 (0.9-1.1) APTT 24.8 (21.0-31.0) Seconds PTT Ratio 0.9 Sodium (136-145) mmol/L Potassium (3.5-5.1) mmol/L Chloride (98-107) mmol/L Carbon Dioxide (21-32) mmol/L Anion Gap (3-11) BUN (6-23) mg/dl Creatinine (0.6-1.2) mg/dl Est Cr Clr Drug Dosing ml/min Est GFR ( Amer) ml/min Est GFR (Non-Af Amer) ml/min BUN/Creatinine Ratio (10-20) Glucose (70-99(Fasting)) mg/dl Lactate 1.4 (0.4-2.0) mmol/L Calcium (8.5-10.1) mg/dl Phosphorus (2.5-4.9) mg/dl Magnesium (1.7-2.4) mg/dl Total Bilirubin (0.2-1.0) mg/dl AST (13-39) U/L ALT (7-52) U/L Alkaline Phosphatase (34-104) U/L Troponin I High Sens (0-14) pg/ml C-Reactive Protein (0-0.5) mg/dl Total Protein (6.0-8.3) gm/dl Albumin (3.4-5.0) gm/dl Globulin (2.5-4.0) gm/dl Albumin/Globulin Ratio (0.9-2) Procalcitonin (0-0.5) ng/ml Administered Medications Acetaminophen (Acetaminophen 325 Mg Tab) 650 mg PO Q4H PRN PRN Reason: Pain or Fever Stop: 10/16/21 18:33 Last Admin: 09/16/21 21:02 Dose: 650 mg Documented by: [id number] Albuterol (Albuterol 0.083% Nebu Soln 3 Ml Vial) 2.5 mg INH Q6R [facility]; Protocol Stop: 10/16/21 18:33 Last Admin: 09/16/21 20:38 Dose: Not Given Documented by: [id number] Admin: 09/16/21 20:35 Dose: 2.5 mg Documented by: [id number] Allopurinol (Allopurinol 100 Mg Tab) 100 mg PO BID [facility] Stop: 10/16/21 20:59 Last Admin: 09/16/21 21:33 Dose: 100 mg Documented by: [id number] Bumetanide (Bumetanide 1 Mg Tab) 4 mg PO BID [facility] Stop: 10/16/21 20:59 Last Admin: 09/16/21 21:33 Dose: 4 mg Documented by: [id number] Buspirone HCl (Buspirone 15 Mg Tab) 15 mg PO TID [facility] Stop: 10/16/21 20:59 Last Admin: 09/16/21 21:33 Dose: 15 mg Documented by: [id number] Gabapentin (Gabapentin 300 Mg Cap) 300 mg PO TID [facility] Stop: 10/16/21 20:59 Last Admin: 09/16/21 21:34 Dose: 300 mg Documented by: [id number] Cefepime HCl 2,000 mg/ Syringe 20 mls @ 5 mls/min IV Q8H [facility]; Protocol Stop: 09/23/21 19:59 Last Admin: 09/16/21 21:32 Dose: 5 mls/min Documented by: [id number] Sodium Phosphate 12 mmol/ (Dextrose) 254 mls @ 88 mls/hr IV NOW ONE Stop: 09/16/21 23:08 Last Admin: 09/16/21 22:14 Dose: 88 mls/hr Documented by: [id number] Nortriptyline HCl (Nortriptyline Hcl 25 Mg Cap) 150 mg PO HS [facility] Stop: 10/16/21 20:59 Last Admin: 09/16/21 21:34 Dose: 150 mg Documented by: [id number] Discontinued Medications Acetaminophen (Acetaminophen 325 Mg Tab) Confirm Administered Dose 650 mg .ROUTE .STK-MED ONE Stop: 09/16/21 18:43 Last Admin: 09/16/21 18:57 Dose: 650 mg Documented by: [id number] Albuterol (Albut/Ipratrop 3mg/0.5mg Neb 3 Ml Vial) 3 ml NEB NOW STA; Protocol Stop: 09/16/21 11:49 Last Admin: 09/16/21 12:26 Dose: 3 ml Documented by: [id number] Sodium Chloride (Nss 1000ml) 2,000 mls @ 999 mls/hr IV .Q2H1M ONE Stop: 09/16/21 13:48 Last Infusion: 09/16/21 14:15 Dose: 0 mls/hr Documented by: [id number] Admin: 09/16/21 12:27 Dose: 999 mls/hr Documented by: [id number] Acetaminophen (Ofirmev) 1,000 mg in 100 mls @ 400 mls/hr IV NOW STA Stop: 09/16/21 12:02 Last Infusion: 09/16/21 13:02 Dose: 0 mls/hr Documented by: [id number] Admin: 09/16/21 12:25 Dose: 400 mls/hr Documented by: [id number] Famotidine (Pepcid 20mg Iv Push) 20 mg in 5 mls @ 2.5 mls/min IV NOW STA Stop: 09/16/21 11:50 Last Admin: 09/16/21 12:25 Dose: 2.5 mls/min Documented by: [id number] Cefepime HCl (Maxipime) 2,000 mg in 20 mls @ 5 mls/min IV NOW STA; Protocol Stop: 09/16/21 11:53 Last Admin: 09/16/21 12:25 Dose: 5 mls/min Documented by: [id number] Magnesium Sulfate/Dextrose (Magnesium Sulfate / D5w) 1 gm in 100 mls @ 100 mls/hr IV Q1H [facility] Stop: 09/16/21 15:10 Last Infusion: 09/16/21 16:32 Dose: 0 mls/hr Documented by: [id number] Admin: 09/16/21 15:17 Dose: 100 mls/hr Documented by: [id number] Infusion: 09/16/21 15:14 Dose: 100 mls/hr Documented by: [id number] Admin: 09/16/21 14:14 Dose: 100 mls/hr Documented by: [id number] Daptomycin 725 mg/ Syringe 14.5 mls @ 7.25 mls/min IV NOW ONE; Protocol Stop: 09/16/21 13:11 Last Admin: 09/16/21 14:07 Dose: 7.25 mls/min Documented by: [id number] Magnesium Sulfate/Dextrose (Magnesium Sulfate / D5w) 1 gm in 100 mls @ 50 mls/hr IV Q2H [facility] Stop: 09/16/21 20:29 Last Admin: 09/16/21 21:02 Dose: 50 mls/hr Documented by: [id number] Infusion: 09/16/21 20:57 Dose: 50 mls/hr Documented by: [id number] Admin: 09/16/21 18:57 Dose: 50 mls/hr Documented by: [id number] Infusion: 09/16/21 18:39 Dose: 0 mls/hr Documented by: [id number] Admin: 09/16/21 16:39 Dose: 50 mls/hr Documented by: [id number] Lactated Ringer's (Lr) 1,000 mls @ 999 mls/hr IV .Q1H1M ONE Stop: 09/16/21 19:34 Last Infusion: 09/16/21 22:07 Dose: 0 mls/hr Documented by: [id number] Admin: 09/16/21 21:02 Dose: 999 mls/hr Documented by: [id number] Imaging Data Radiologist's Impression: Chest X-Ray 09/16/21 11:46 XR chest 1V portable HISTORY: SEPSIS COMPARISON: Chest 08/11/2021. FINDINGS: There is a right shoulder prosthesis again noted. The cardiac silhouette remains borderline enlarged. No focal lung consolidations to suggest pneumonia. No evidence for pulmonary edema. No pleural effusions. No pneumoth orax. IMPRESSION: No significant change compared to the prior study. No acute process. ACT 112: Negative or not required by law. Electronically signed by: Ji Velasquez M.D. 09/16/2021 1:02 PM Foot X-Ray 09/16/21 11:49 XR foot LT 2V CLINICAL HISTORY: plantar ulcer, fever, eval for bony involvement. COMPARISON STUDY: Left ankle 03/29/2021. FINDINGS: There is a 2.3 cm focal skin ulceration at the plantar aspect of the midfoot. No underlying bony destruction to suggest an osteomyelitis. There is soft tissue swelling within the mid to distal left foot. There are plantar and posterior calcaneal spurs. Mild to moderate degenerative changes within the left foot. The Lisfranc joint is intact. No fracture or dislocation. IMPRESSION: A 2.3 cm skin ulceration at the plantar aspect of the mid foot. No underlying bony destruction to suggest an osteomyelitis. ACT 112: Negative or not required by law. Electronically signed by: Ji Velasquez M.D. 09/16/2021 1:04 PM Discharge Plan Visit Data Chief Complaint: Fever Stated Complaint: FEVER ED Provider: Giles Burleson Discharge Problem: SIRS (systemic inflammatory response syndrome), Hypomagnesemia, Hypophosphatemia, Cellulitis of left lower extremity, Chronic ulcer of left foot, COVID-19 Patient Disposition: Admitted As Inpatient Discharge Instructions Interventions: ED Discharge Assessment Last Done: 09/16/21 17:56 Discharge Problem: Chronic ulcer of left foot Qualifiers: Non-pressure ulcer stage: unspecified non-pressure ulcer stage Qualified Code(s): L97.529 - Non-pressure chronic ulcer of other part of left foot with unspecified severity
--- NOTE | 2021-09-16 18:15 | Ultrasound Report ---
LEFT LOWER EXTREMITY VENOUS DOPPLER HISTORY: Left leg swelling. evaluate for DVT COMPARISON STUDY: None. FINDINGS: There is normal compressibility, flow, and augmentation within the left lower extremity manuelito p venous system. IMPRESSION: No DVT within the left lower extremity. ACT 112: Negative or not required by law. Electronically signed by: Ji Velasquez M.D. 09/16/2021 6:13 PM
[2021-09-16] MEDS ORDERED: SODIUM PHOSPHATE 3 MMOL/1 ML INFUSION IV ONE (18:34)
[2021-09-16] MEDS ORDERED: LACTATED RINGER'S 1,000 ML IV ONE (18:34)
[2021-09-16] MEDS ORDERED: ACETAMINOPHEN 500 MG TAB PO PRN (18:34)
[2021-09-16] MEDS ORDERED: ALBUTEROL HFA 8 GM INHALER INH PRN (18:34)
[2021-09-16] MEDS ORDERED: ACETAMINOPHEN 325 MG TAB ONE (18:42)
[2021-09-16] MEDS ORDERED: ALBUTEROL 0.083% NEBU SOLN 3 ML VIAL ONE (19:51)
[2021-09-16] MEDS ORDERED: SODIUM PHOSPHATE 12 MMOL in DEXTROSE 5% 250 ML IV ONE (20:15)
[2021-09-16] MEDS: ALBUTEROL 0.083% NEBU SOLN 3 ML VIAL INH SCH ×3 (20:35→23:39)
[2021-09-16] MEDS: ACETAMINOPHEN 325 MG TAB PO PRN (21:02)
[2021-09-16 21:19] LABS: Appearance Urine Clear (Clear); Bilirubin Urine Negative (Negative); Blood Urine Negative (Negative); Color Urine Yellow; Glucose Urine UA Negative (Negative); Ketones Urine Negative (Negative); Leukocyte Esterase Urine Negative (Negative); Nitrite Urine Negative (Negative); Protein Urine Negative (Negative); Specific Gravity Urine 1.016 (1.000-1.030); Urobilinogen Urine Negative (Negative)
[2021-09-16] MEDS: CEFEPIME 2,000 MG in SYRINGE 0 ML IV SCH (21:32)
[2021-09-16] MEDS: BUMETANIDE 1 MG TAB PO SCH (21:33)
[2021-09-16] MEDS: allopurinoL 100 MG TAB PO SCH (21:33)
[2021-09-16] MEDS: busPIRone 15 MG TAB PO SCH (21:33)
[2021-09-16] MEDS: NORTRIPTYLINE HCL 25 MG CAP PO SCH (21:34)
[2021-09-16] MEDS: GABAPENTIN 300 MG CAP PO SCH (21:34)
[2021-09-17] MEDS: CEFEPIME 2,000 MG in SYRINGE 0 ML IV SCH ×3 (04:02→20:02)
[2021-09-17] MEDS: ACETAMINOPHEN 325 MG TAB PO PRN ×2 (05:43→10:29)
[2021-09-17] MEDS: ALBUTEROL 0.083% NEBU SOLN 3 ML VIAL INH SCH (07:41)
[2021-09-17] MEDS: BUMETANIDE 1 MG TAB PO SCH ×2 (08:58→16:24)
[2021-09-17] MEDS: DULoxetine HCL 30 MG CAP PO SCH (08:58)
[2021-09-17] MEDS: allopurinoL 100 MG TAB PO SCH ×2 (08:58→20:08)
[2021-09-17] MEDS: GABAPENTIN 300 MG CAP PO SCH ×3 (08:59→20:06)
[2021-09-17] MEDS: PANTOprazole 40 MG TAB PO SCH (08:59)
[2021-09-17] MEDS: buPROPion XL 300 MG TABCR PO SCH (08:59)
[2021-09-17] MEDS: CLOPIDOGREL BISULFATE 75 MG TAB PO SCH (08:59)
[2021-09-17] MEDS: ATORVASTATIN 40 MG TAB PO SCH (08:59)
[2021-09-17] MEDS: busPIRone 15 MG TAB PO SCH ×3 (08:59→20:07)
[2021-09-17] MEDS: ASPIRIN 81 MG ECTAB PO SCH (08:59)
[2021-09-17] MEDS: aMILoride HCL 5 MG TAB PO SCH (08:59)
[2021-09-17] MEDS: ENOXAPARIN INJ 40 MG/0.4 ML SYR SQ SCH (09:00)
[2021-09-17] MEDS: FLUTICASONE/VILANTEROL 200/25MCG 14 PUFFS/INHALER INH SCH (09:00)
[2021-09-17] MEDS ORDERED: ALBUTEROL 0.083% NEBU SOLN 3 ML VIAL INH PRN (09:48)
[2021-09-17 10:46] LABS: Basophils # (auto) 0.01 K/uL (0-0.2); Basophils % (auto) 0.1 %; Eosinophils # (auto) 0.09 K/uL (0-0.5); Eosinophils % (auto) 0.9 %; Hematocrit (blood only) 38.6 % (37-47); Hemoglobin 12.3 g/dL (12.0-16.0); Immature Granulocytes # (auto) 0.02 K/uL (0.00-0.02); Immature Granulocytes % (auto) 0.2 %; Lymphocytes # (auto) 1.99 K/uL (1.2-3.4); Lymphocytes % (auto) 19.3 %; Mean Corpuscular Hemoglobin 27.7 pg (25-34); Mean Corpuscular Hgb Conc 31.9 g/dL (32-36); Mean Corpuscular Volume 86.9 fL (80-100); Mean Platelet Volume 9.6 fL (7.4-10.4); Monocytes # (auto) 0.99 K/uL (0.11-0.59); Monocytes % (auto) 9.6 %; Neutrophils # (auto) 7.23 K/uL (1.4-6.5); Neutrophils % (auto) 69.9 %; Platelet Count 211 K/uL (130-400); RDW Coefficient of Variation 16.7 % (11.5-14.5); RDW Standard Deviation 53.6 fL (36.4-46.3); Red Blood Count 4.44 M/uL (4.2-5.4); White Blood Count 10.33 K/uL (4.8-10.8)
[2021-09-17 11:55] LABS: BUN Creatinine Ratio 9.7 (10-20); Calcium 8.4 mg/dl (8.5-10.1); Creatinine Clr Calc Pharmacy 75.9 ml/min; Est GFR (African American) 42.4 ml/min; Est GFR (Non-African American) 36.6 ml/min; Magnesium 2.2 mg/dl (1.7-2.4); Potassium 3.2 mmol/L (3.5-5.1)
[2021-09-17] MEDS: oxyCODONE HCL IR 5 MG TAB (IMMEDIATE RELEASE) PO PRN ×3 (12:40→22:02)
[2021-09-17] MEDS ORDERED: POTASSIUM CHLORIDE CRTAB 20 MEQ TABCR PO STA (13:16)
--- NOTE | 2021-09-17 13:29 | Hospitalist Progress Note ---
Date of Service September 17, 2021 Assessment & Plan (1) Sepsis: Plan: Sepsis without shock and no further evidence of organ dysfunction secondary to likely left lower leg cellulitis With septicemia, now growing Gram positive bacilli in BCxs - SIRS- 3 qSOFA- 1 - WBC 10 with NLR 4.5:1- normal lactate - PCT 0.32, CRP 8.37 -MRSA swab negative -UA neg for infection - X ray performed of the left lower leg- negative for osteo or gas - Continue with Cefepime 2GM IV q8 and Daptomycin 6mg/kg daily IV -repeat BCxs today no further IVFs needed and is now back on home Bumex Wound cx to be collected by Wound Nurse (2) Cellulitis: Plan: As above- Doppler Left lower extremity to rule out DVT is negative (3) COVID-19: Plan: COVID 19 positive symptoms started 09/14 - GFR 36.8 and stable from yesterday - symptoms of nasal congestion and overall body weakness. CXR no PNA, not hypoxic -start Remdesevir 09/17 -is allergic to steroids-will not give Dexamethasone - isolation precautions (4) Hypokalemia: Plan: replace with KCl 20 meq po x 1 today follow BMP in AM (5) Asthma: Plan: Continue LAVINIA inhaler and PRN nebulizer (6) Severe obstructive sleep apnea: Plan: CPAP 13 with 2L oxygen bled in continue - remains with elevated HCO3 likely component of obesity hypoventilation syndrome as well (7) CKD (chronic kidney disease) stage 3, GFR 30-59 ml/min: Plan: CKD IIIa [employer] is at baseline - continue to follow with volume resuscitation (8) Dyslipidemia: Plan: Continue statin- atorvastatin 40mg - history of CVA as well - continue with Plavix and ASA although not sure why on DAPT (9) Hypertension: Plan: continue bumex, amlioride (10) Chronic heart failure with preserved ejection fraction: Plan: As above- follow hemodyanmics - restarted home bumex after receiving IVFs on admission for sepsis - Last ECHO 08/05 with EF 60-65% mild LVH normal valves and normal RVSP (11) Acid reflux: Plan: Continue pantoprazole 40 mg PO daily (12) Peripheral neuropathy: Plan: Continue gabapentin, nortriptyline (13) DJD (degenerative joint disease): (14) Lymphedema: Plan: Chronic - continue bumex, hold metolazone (15) Hypomagnesemia: Plan: Secondary to loss with diruetics and decrease intake as well as water loss from fever had muscle cramps which are now resolved mag repleted and now normal (16) Hypophosphatemia: Plan: - replete following mag (17) Allergic rhinitis: Plan: Likely component of sinus congestion and lacrimation - she reports that she does get this every year - follow with COVID and influenza (18) Anxiety and depression: Plan: Continue Bupropion, Nortriptyline, Duloxetine, buspar Plan: DVT prophylaxis-Lovenox Dispo-continued stay on med tele Admission and Anticipated Discharge Date Admission Date: September 16, 2021 Subjective Pt having a lot of pain in left leg. No SOB or CP. No nausea, is eating and drinking Tele with NSR, rates 70-80s Review of Systems Review of Systems: All systems reviewed & are unremarkable except as noted in HPI & below Physical Exam Constitutional: WD/WN, vitals as above + morbidly obese Eyes: + anicteric sclerae Neck: trachea midline, no thyromegaly Respiratory: normal respiratory effort, lungs clear to auscultation Cardiovascular: Rate/Rhythm: regular rate and regular rhythm Heart Sounds: no murmur Extremities: + edema (1+ pitting edema left leg) Chest (Breasts): Chest: normal inspection of chest Gastrointestinal (Abdomen): normal bowel sounds, soft, nontender, no hepatosplenomegaly Musculoskeletal: Extremities: extremities normal to inspection; no cyanosis and no clubbing Skin: + ulcer (left lateral foot to subcutaneous fat,2x1cm) and + erythema (left leg and medial thigh) Neurologic: moves all extremities and awake; no focal motor deficits Psychiatric: A+Ox3, euthymic affect Results & Data Results & Data ([facility]) Vital Signs (Past 12 Hours) Vital Signs Temp Pulse Pulse Resp BP BP Pulse Ox 09/17/21 12:16 36.7 C 83 19 158/77 H 95 09/17/21 08:13 36.9 C 81 17 116/70 97 09/17/21 07:50 83 09/17/21 07:41 86 20 97 09/17/21 04:49 36.8 C 84 18 129/68 96 09/17/21 02:32 87 21 97 Laboratory Results 09/17/21 09/17/21 09/17/21 Range/Units 10:18 10:18 07:57 WBC 10.33 (4.8-10.8) K/uL RBC 4.44 (4.2-5.4) M/uL Hgb 12.3 (12.0-16.0) g/dL Hct 38.6 (37-47) % MCV 86.9 (80-100) fL MCH 27.7 (25-34) pg MCHC 31.9 L (32-36) g/dL RDW Std Deviation 53.6 H (36.4-46.3) fL RDW Coeff of Cleo 16.7 H (11.5-14.5) % Plt Count 211 (130-400) K/uL MPV 9.6 (7.4-10.4) fL Immature Gran % (Auto) 0.2 % Neut % (Auto) 69.9 % Lymph % (Auto) 19.3 % Custer % (Auto) 9.6 % Eos % (Auto) 0.9 % Baso % (Auto) 0.1 % Neut # (Auto) 7.23 H (1.4-6.5) K/uL Lymph # (Auto) 1.99 (1.2-3.4) K/uL Custer # (Auto) 0.99 H (0.11-0.59) K/uL Eos # (Auto) 0.09 (0-0.5) K/uL Baso # (Auto) 0.01 (0-0.2) K/uL Immature Gran # (Auto) 0.02 (0.00-0.02) K/uL Sodium 138 (136-145) mmol/L Potassium 3.2 L (3.5-5.1) mmol/L Chloride 94 L (98-107) mmol/L Carbon Dioxide 33 H (21-32) mmol/L Anion Gap 11 (3-11) BUN 15 (6-23) mg/dl Creatinine 1.54 H (0.6-1.2) mg/dl Est Cr Clr Drug Dosing 75.9 ml/min Est GFR ( Amer) 42.4 ml/min Est GFR (Non-Af Amer) 36.6 ml/min BUN/Creatinine Ratio 9.7 L (10-20) Glucose 104 H (70-99(Fasting)) mg/dl POC Glucose 131 H (70-99) mg/dl Calcium 8.4 L (8.5-10.1) mg/dl Phosphorus 4.0 D (2.5-4.9) mg/dl Magnesium 2.2 (1.7-2.4) mg/dl Urine Color Urine Appearance (Clear) Urine pH (4.5-7.5) Ur Specific Hooper (1.000-1.030) Urine Protein (Negative) Urine Glucose (UA) (Negative) Urine Ketones (Negative) Urine Blood (Negative) Urine Nitrite (Negative) Urine Bilirubin (Negative) Urine Urobilinogen (Negative) Ur Leukocyte Esterase (Negative) Nasal Screen MRSA (PCR) (Negative) SARS-CoV-2 (PCR) (Negative) Hepatitis C Ab (EIA) Hep C Ab Signal/Cutoff Influenza Type A (PCR) (Neg) Influenza Type B (PCR) (Neg) RSV (RT-PCR) (Neg) 09/16/21 09/16/21 09/16/21 Range/Units 21:08 20:19 14:28 WBC (4.8-10.8) K/uL RBC (4.2-5.4) M/uL Hgb (12.0-16.0) g/dL Hct (37-47) % MCV (80-100) fL MCH (25-34) pg MCHC (32-36) g/dL RDW Std Deviation (36.4-46.3) fL RDW Coeff of Cleo (11.5-14.5) % Plt Count (130-400) K/uL MPV (7.4-10.4) fL Immature Gran % (Auto) % Neut % (Auto) % Lymph % (Auto) % Custer % (Auto) % Eos % (Auto) % Baso % (Auto) % Neut # (Auto) (1.4-6.5) K/uL Lymph # (Auto) (1.2-3.4) K/uL Custer # (Auto) (0.11-0.59) K/uL Eos # (Auto) (0-0.5) K/uL Baso # (Auto) (0-0.2) K/uL Immature Gran # (Auto) (0.00-0.02) K/uL Sodium (136-145) mmol/L Potassium (3.5-5.1) mmol/L Chloride (98-107) mmol/L Carbon Dioxide (21-32) mmol/L Anion Gap (3-11) BUN (6-23) mg/dl Creatinine (0.6-1.2) mg/dl Est Cr Clr Drug Dosing ml/min Est GFR ( Amer) ml/min Est GFR (Non-Af Amer) ml/min BUN/Creatinine Ratio (10-20) Glucose (70-99(Fasting)) mg/dl POC Glucose 150 H (70-99) mg/dl Calcium (8.5-10.1) mg/dl Phosphorus (2.5-4.9) mg/dl Magnesium (1.7-2.4) mg/dl Urine Color Yellow Urine Appearance Clear (Clear) Urine pH 6.0 (4.5-7.5) Ur Specific Hooper 1.016 (1.000-1.030) Urine Protein Negative (Negative) Urine Glucose (UA) Negative (Negative) Urine Ketones Negative (Negative) Urine Blood Negative (Negative) Urine Nitrite Negative (Negative) Urine Bilirubin Negative (Negative) Urine Urobilinogen Negative (Negative) Ur Leukocyte Esterase Negative (Negative) Nasal Screen MRSA (PCR) Negative (Negative) SARS-CoV-2 (PCR) (Negative) Hepatitis C Ab (EIA) Hep C Ab Signal/Cutoff Influenza Type A (PCR) (Neg) Influenza Type B (PCR) (Neg) RSV (RT-PCR) (Neg) 09/16/21 09/16/21 Range/Units 14:14 11:54 WBC (4.8-10.8) K/uL RBC (4.2-5.4) M/uL Hgb (12.0-16.0) g/dL Hct (37-47) % MCV (80-100) fL MCH (25-34) pg MCHC (32-36) g/dL RDW Std Deviation (36.4-46.3) fL RDW Coeff of Cleo (11.5-14.5) % Plt Count (130-400) K/uL MPV (7.4-10.4) fL Immature Gran % (Auto) % Neut % (Auto) % Lymph % (Auto) % Custer % (Auto) % Eos % (Auto) % Baso % (Auto) % Neut # (Auto) (1.4-6.5) K/uL Lymph # (Auto) (1.2-3.4) K/uL Custer # (Auto) (0.11-0.59) K/uL Eos # (Auto) (0-0.5) K/uL Baso # (Auto) (0-0.2) K/uL Immature Gran # (Auto) (0.00-0.02) K/uL Sodium (136-145) mmol/L Potassium (3.5-5.1) mmol/L Chloride (98-107) mmol/L Carbon Dioxide (21-32) mmol/L Anion Gap (3-11) BUN (6-23) mg/dl Creatinine (0.6-1.2) mg/dl Est Cr Clr Drug Dosing ml/min Est GFR ( Amer) ml/min Est GFR (Non-Af Amer) ml/min BUN/Creatinine Ratio (10-20) Glucose (70-99(Fasting)) mg/dl POC Glucose (70-99) mg/dl Calcium (8.5-10.1) mg/dl Phosphorus (2.5-4.9) mg/dl Magnesium (1.7-2.4) mg/dl Urine Color Urine Appearance (Clear) Urine pH (4.5-7.5) Ur Specific Hooper (1.000-1.030) Urine Protein (Negative) Urine Glucose (UA) (Negative) Urine Ketones (Negative) Urine Blood (Negative) Urine Nitrite (Negative) Urine Bilirubin (Negative) Urine Urobilinogen (Negative) Ur Leukocyte Esterase (Negative) Nasal Screen MRSA (PCR) (Negative) SARS-CoV-2 (PCR) POSITIVE A* (Negative) Hepatitis C Ab (EIA) Pending Hep C Ab Signal/Cutoff Pending Influenza Type A (PCR) Negative (Neg) Influenza Type B (PCR) Negative (Neg) RSV (RT-PCR) Negative (Neg) PG Care Time/CCT Total # of Minutes Spent Total Time Spent with Patient: Total time spent is greater than 50% in coordination of care (as documented) at patient's floor/unit and/or counseling patient: Coding Level of Care Code 10183 Subseq Hosp Care Lvl 3 Diagnoses Sepsis A41.9 Cellulitis L03.90 COVID-19 U07.1 Asthma J45.909 Severe obstructive sleep apnea G47.33 CKD (chronic kidney disease) stage 3, GFR 30-59 ml/min N18.32 Chronic kidney disease stage 3 subtype: stage 3b (GFR 30-44) Dyslipidemia E78.5 Hypertension I10 Chronic heart failure with preserved ejection fraction I50.32 Acid reflux K21.9 Peripheral neuropathy G62.9 DJD (degenerative joint disease) M19.90 Lymphedema I89.0 Hypomagnesemia E83.42 Hypophosphatemia E83.39 Allergic rhinitis J30.9 Anxiety and depression F41.9; F32.A Hypokalemia E87.6 (1) CKD (chronic kidney disease) stage 3, GFR 30-59 ml/min Chronic kidney disease stage 3 subtype: stage 3b (GFR 30-44) Qualified Code(s): N18.32 - Chronic kidney disease, stage 3b
[2021-09-17] MEDS ORDERED: REMDESIVIR 200 MG in SODIUM CHLORIDE 0.9% 210 ML IV ONE (13:45)
[2021-09-17] MEDS: DAPTOmycin 725 MG in SYRINGE 0 ML IV SCH (13:56)
[2021-09-17] MEDS: NORTRIPTYLINE HCL 25 MG CAP PO SCH (20:07)
[2021-09-18] MEDS: CEFEPIME 2,000 MG in SYRINGE 0 ML IV SCH ×3 (03:24→19:52)
[2021-09-18 06:42] LABS: Albumin Level 3.2 gm/dl (3.4-5.0); BUN Creatinine Ratio 11.2 (10-20); Bilirubin Direct 0.3 mg/dl (0-0.2); Bilirubin,Total 0.9 mg/dl (0.2-1.0); C Reactive Protein 27.7 mg/dl (0-0.5); Calcium 7.9 mg/dl (8.5-10.1); Creatinine Clr Calc Pharmacy 86.5 ml/min; Est GFR (African American) 50.1 ml/min; Est GFR (Non-African American) 43.3 ml/min; Magnesium 1.9 mg/dl (1.7-2.4); Potassium 3.2 mmol/L (3.5-5.1); Total Protein 6.5 gm/dl (6.0-8.3)
[2021-09-18 06:49] LABS: Basophils # (auto) 0.01 K/uL (0-0.2); Basophils % (auto) 0.1 %; Eosinophils # (auto) 0.26 K/uL (0-0.5); Eosinophils % (auto) 2.8 %; Hematocrit (blood only) 35.7 % (37-47); Hemoglobin 11.6 g/dL (12.0-16.0); Immature Granulocytes # (auto) 0.01 K/uL (0.00-0.02); Immature Granulocytes % (auto) 0.1 %; Lymphocytes % (auto) 17.3 %; Mean Corpuscular Hemoglobin 27.6 pg (25-34); Mean Corpuscular Hgb Conc 32.5 g/dL (32-36); Mean Corpuscular Volume 84.8 fL (80-100); Mean Platelet Volume 9.6 fL (7.4-10.4); Monocytes # (auto) 1.14 K/uL (0.11-0.59); Monocytes % (auto) 12.3 %; Neutrophils # (auto) 6.25 K/uL (1.4-6.5); Neutrophils % (auto) 67.4 %; Platelet Count 192 K/uL (130-400); RDW Coefficient of Variation 16.8 % (11.5-14.5); Red Blood Count 4.21 M/uL (4.2-5.4); White Blood Count 9.27 K/uL (4.8-10.8)
[2021-09-18] MEDS: GABAPENTIN 300 MG CAP PO SCH ×3 (07:55→19:51)
[2021-09-18] MEDS: allopurinoL 100 MG TAB PO SCH ×2 (07:55→19:51)
[2021-09-18] MEDS: CLOPIDOGREL BISULFATE 75 MG TAB PO SCH (07:56)
[2021-09-18] MEDS: ASPIRIN 81 MG ECTAB PO SCH (07:56)
[2021-09-18] MEDS: buPROPion XL 300 MG TABCR PO SCH (07:56)
[2021-09-18] MEDS: PANTOprazole 40 MG TAB PO SCH (07:56)
[2021-09-18] MEDS: DULoxetine HCL 30 MG CAP PO SCH (07:56)
[2021-09-18] MEDS: aMILoride HCL 5 MG TAB PO SCH (07:56)
[2021-09-18] MEDS: ATORVASTATIN 40 MG TAB PO SCH (07:56)
[2021-09-18] MEDS: busPIRone 15 MG TAB PO SCH ×3 (07:57→19:51)
[2021-09-18] MEDS: FLUTICASONE/VILANTEROL 200/25MCG 14 PUFFS/INHALER INH SCH (07:57)
[2021-09-18] MEDS: oxyCODONE HCL IR 5 MG TAB (IMMEDIATE RELEASE) PO PRN ×3 (07:58→19:51)
[2021-09-18] MEDS: ENOXAPARIN INJ 40 MG/0.4 ML SYR SQ SCH (07:58)
--- NOTE | 2021-09-18 09:00 | Electrocardiogram Report ---
Test Reason : Blood Pressure : / mmHG Vent. Rate : 102 BPM Atrial Rate : 104 BPM P-R Int : 000 ms QRS Dur : 108 ms QT Int : 340 ms P-R-T Axes : 000 -41 069 degrees QTc Int : 443 ms Sinus rhythm Left axis deviation Low voltage QRS Incomplete right bundle branch block Anterolateral infarct (cited on or before 01-OCT-2017) Abnormal ECG When compared with ECG of 29-MAR-2021 05:30, No significant change Confirmed by Corey Gross ([id number] on 09/18/2021 8:59:52 AM Referred By: ED Confirmed By:Corey Gross
[2021-09-18] MEDS ORDERED: POTASSIUM CHLORIDE CRTAB 20 MEQ TABCR PO STA (09:29)
[2021-09-18] MEDS ORDERED: MAGNESIUM SULFATE / D5W 1 GM/100 ML BAG IV ONE (09:30)
[2021-09-18] MEDS: REMDESIVIR 100 MG in SODIUM CHLORIDE 0.9% 230 ML IV SCH (12:03)
[2021-09-18] MEDS: DAPTOmycin 725 MG in SYRINGE 0 ML IV SCH (14:11)
[2021-09-18] MEDS: BUMETANIDE 1 MG TAB PO SCH (14:12)
--- NOTE | 2021-09-18 18:48 | Hospitalist Progress Note ---
Date of Service September 18, 2021 Assessment & Plan (1) Sepsis: Plan: Sepsis without shock and no further evidence of organ dysfunction secondary to likely left lower leg cellulitis With septicemia, now growing corynebacterium in BCxs Repeat blood cultures-no growth to date Wound culture from foot with pinpoint growth - WBC 10 with NLR 4.5:1- normal lactate - PCT 0.32, CRP 8.37 and now trended upward to 27 -MRSA swab negative -UA neg for infection - X ray performed of the left lower leg- negative for osteo or gas - Continue with Cefepime 2GM IV q8 and Daptomycin 6mg/kg daily IV but can likely de-escalate antibiotics-we will discuss with pharmacy -Follow repeat blood cultures -Follow wound culture -With some left knee pain but no evidence of septic joint-consult orthopedics and check knee x-ray if persists by tomorrow-does have prosthetic joint (2) Cellulitis: Plan: As above- Doppler Left lower extremity to rule out DVT is negative (3) COVID-19: Plan: COVID 19 positive symptoms started 09/14 - symptoms of nasal congestion and overall body weakness. CXR no PNA, not hypoxic Of note, she also had COVID approximately 3 months ago but would have to consider this a recurrent infection -Continue Remdesevir started on 09/17 -is allergic to steroids-will not give Dexamethasone - isolation precautions (4) Hypokalemia: Plan: Low again today, replace with oral potassium chloride follow BMP and magnesium in AM (5) Asthma: Plan: Continue LAVINIA inhaler and PRN nebulizer (6) Severe obstructive sleep apnea: Plan: CPAP 13 with 2L oxygen bled in continue - remains with elevated HCO3 likely component of obesity hypoventilation syndrome as well (7) CKD (chronic kidney disease) stage 3, GFR 30-59 ml/min: Plan: CKD IIIa [employer] is at baseline - continue to follow with volume resuscitation (8) Dyslipidemia: Plan: Continue statin- atorvastatin 40mg - history of CVA as well - continue with Plavix and ASA although not sure why on DAPT (9) Hypertension: Plan: continue bumex, amlioride (10) Chronic heart failure with preserved ejection fraction: Plan: As above- follow hemodyanmics - restarted home bumex after receiving IVFs on admission for sepsis - Last ECHO 08/05 with EF 60-65% mild LVH normal valves and normal RVSP (11) Acid reflux: Plan: Continue pantoprazole 40 mg PO daily (12) Peripheral neuropathy: Plan: Continue gabapentin, nortriptyline (13) DJD (degenerative joint disease): 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 (14) Lymphedema: Plan: Chronic - continue bumex, hold metolazone (15) Hypomagnesemia: Plan: Secondary to loss with diruetics and decrease intake as well as water loss from fever had muscle cramps which are now resolved mag repleted and now low normal (16) Hypophosphatemia: Plan: Replaced (17) Allergic rhinitis: Plan: Likely component of sinus congestion and lacrimation - she reports that she does get this every year - follow with COVID and influenza (18) Anxiety and depression: Plan: Continue Bupropion, Nortriptyline, Duloxetine, buspar Plan: DVT prophylaxis-Lovenox Dispo-continued stay on med tele Admission and Anticipated Discharge Date Admission Date: September 16, 2021 Subjective Feeling better today having some pain in the left knee but was able to walk on it to the bathroom. No chest pain or shortness of breath. No abdominal pains or diarrhea. No bowel movement today. She is having a runny nose. She reports that she had COVID 12 weeks ago also with URI symptoms. Telemetry with normal sinus rhythm with rates in the 80s Review of Systems Review of Systems: All systems reviewed & are unremarkable except as noted in HPI & below Physical Exam Constitutional: WD/WN, vitals as above + morbidly obese Eyes: + anicteric sclerae Neck: trachea midline, no thyromegaly Respiratory: normal respiratory effort, lungs clear to auscultation Cardiovascular: Rate/Rhythm: regular rate and regular rhythm Heart Sounds: no murmur Extremities: + edema (1+ pitting edema left leg) Chest (Breasts): Chest: normal inspection of chest Gastrointestinal (Abdomen): normal bowel sounds, soft, nontender, no hepatosplenomegaly Musculoskeletal: Extremities: + extremities abnormal to inspection (Left knee positive mild effusion, no erythema, TKA scar), no cyanosis and no clubbing Skin: + ulcer (left lateral foot to subcutaneous fat,2x1cm) and + erythema (left leg and medial thigh, less than previous) Neurologic: moves all extremities and awake; no focal motor deficits Psychiatric: A+Ox3, euthymic affect Results & Data Results & Data ([facility]) Vital Signs (Past 12 Hours) Vital Signs Temp Pulse Resp BP Pulse Ox 09/18/21 18:26 36.6 C 99 H 17 176/78 H 95 09/18/21 14:45 36.6 C 95 H 19 168/73 H 93 09/18/21 11:37 36.6 C 100 H 19 143/69 H 92 09/18/21 07:29 36.9 C 94 H 18 107/68 92 Laboratory Results 09/18/21 09/18/21 09/16/21 Range/Units 05:42 05:42 11:54 WBC 9.27 (4.8-10.8) K/uL RBC 4.21 (4.2-5.4) M/uL Hgb 11.6 L (12.0-16.0) g/dL Hct 35.7 L (37-47) % MCV 84.8 (80-100) fL MCH 27.6 (25-34) pg MCHC 32.5 (32-36) g/dL RDW Std Deviation 52.0 H (36.4-46.3) fL RDW Coeff of Cleo 16.8 H (11.5-14.5) % Plt Count 192 (130-400) K/uL MPV 9.6 (7.4-10.4) fL Immature Gran % (Auto) 0.1 % Neut % (Auto) 67.4 % Lymph % (Auto) 17.3 % Bowie % (Auto) 12.3 % Eos % (Auto) 2.8 % Baso % (Auto) 0.1 % Neut # (Auto) 6.25 (1.4-6.5) K/uL Lymph # (Auto) 1.60 (1.2-3.4) K/uL Bowie # (Auto) 1.14 H (0.11-0.59) K/uL Eos # (Auto) 0.26 (0-0.5) K/uL Baso # (Auto) 0.01 (0-0.2) K/uL Immature Gran # (Auto) 0.01 (0.00-0.02) K/uL Sodium 135 L (136-145) mmol/L Potassium 3.2 L (3.5-5.1) mmol/L Chloride 95 L (98-107) mmol/L Carbon Dioxide 32 (21-32) mmol/L Anion Gap 8 (3-11) BUN 15 (6-23) mg/dl Creatinine 1.34 H (0.6-1.2) mg/dl Est Cr Clr Drug Dosing 86.5 ml/min Est GFR ( Amer) 50.1 ml/min Est GFR (Non-Af Amer) 43.3 ml/min BUN/Creatinine Ratio 11.2 (10-20) Glucose 92 (70-99(Fasting)) mg/dl Calcium 7.9 L (8.5-10.1) mg/dl Magnesium 1.9 (1.7-2.4) mg/dl Total Bilirubin 0.9 (0.2-1.0) mg/dl Direct Bilirubin 0.3 H (0-0.2) mg/dl AST 31 (13-39) U/L ALT 17 (7-52) U/L Alkaline Phosphatase 81 (34-104) U/L C-Reactive Protein 27.70 H (0-0.5) mg/dl Total Protein 6.5 (6.0-8.3) gm/dl Albumin 3.2 L (3.4-5.0) gm/dl Hepatitis C Ab (EIA) NON-REACTIVE (NON-REACTIVE) Hep C Ab Signal/Cutoff 0.02 (<1.00) PG Care Time/CCT Total # of Minutes Spent Total Time Spent with Patient: Total time spent is greater than 50% in coordination of care (as documented) at patient's floor/unit and/or counseling patient: Coding Level of Care Code 05399 Subseq Hosp Care Lvl 2 Diagnoses Sepsis A41.9 Cellulitis L03.90 COVID-19 U07.1 Hypokalemia E87.6 Asthma J45.909 Severe obstructive sleep apnea G47.33 CKD (chronic kidney disease) stage 3, GFR 30-59 ml/min N18.32 Chronic kidney disease stage 3 subtype: stage 3b (GFR 30-44) Dyslipidemia E78.5 Hypertension I10 Chronic heart failure with preserved ejection fraction I50.32 Acid reflux K21.9 Peripheral neuropathy G62.9 DJD (degenerative joint disease) M19.90 Lymphedema I89.0 Hypomagnesemia E83.42 Hypophosphatemia E83.39 Allergic rhinitis J30.9 Anxiety and depression F41.9; F32.A (1) CKD (chronic kidney disease) stage 3, GFR 30-59 ml/min Chronic kidney disease stage 3 subtype: stage 3b (GFR 30-44) Qualified Code(s): N18.32 - Chronic kidney disease, stage 3b
[2021-09-18] MEDS: NORTRIPTYLINE HCL 25 MG CAP PO SCH (19:51)
[2021-09-19] MEDS: oxyCODONE HCL IR 5 MG TAB (IMMEDIATE RELEASE) PO PRN ×3 (03:54→19:48)
[2021-09-19] MEDS: CEFEPIME 2,000 MG in SYRINGE 0 ML IV SCH ×3 (04:48→19:48)
[2021-09-19 06:35] LABS: Creatinine Clr Calc Pharmacy 95.9 ml/min; Est GFR (African American) 56.7 ml/min; Est GFR (Non-African American) 48.9 ml/min
[2021-09-19] MEDS: busPIRone 15 MG TAB PO SCH ×3 (08:12→19:47)
[2021-09-19] MEDS: allopurinoL 100 MG TAB PO SCH ×2 (08:12→19:47)
[2021-09-19] MEDS: GABAPENTIN 300 MG CAP PO SCH ×3 (08:12→19:48)
[2021-09-19] MEDS: aMILoride HCL 5 MG TAB PO SCH (08:13)
[2021-09-19] MEDS: CLOPIDOGREL BISULFATE 75 MG TAB PO SCH (08:13)
[2021-09-19] MEDS: buPROPion XL 300 MG TABCR PO SCH (08:13)
[2021-09-19] MEDS: DULoxetine HCL 30 MG CAP PO SCH (08:13)
[2021-09-19] MEDS: PANTOprazole 40 MG TAB PO SCH (08:14)
[2021-09-19] MEDS: ATORVASTATIN 40 MG TAB PO SCH (08:14)
[2021-09-19] MEDS: ASPIRIN 81 MG ECTAB PO SCH (08:14)
[2021-09-19] MEDS: FLUTICASONE/VILANTEROL 200/25MCG 14 PUFFS/INHALER INH SCH (08:14)
[2021-09-19] MEDS: ENOXAPARIN INJ 40 MG/0.4 ML SYR SQ SCH (08:15)
[2021-09-19 09:17] LABS: BUN Creatinine Ratio 11.8 (10-20); Calcium 8.7 mg/dl (8.5-10.1); Creatinine Clr Calc Pharmacy 97.6 ml/min; Est GFR (African American) 57.9 ml/min; Est GFR (Non-African American) 49.9 ml/min; Potassium 3.6 mmol/L (3.5-5.1)
[2021-09-19] MEDS: REMDESIVIR 100 MG in SODIUM CHLORIDE 0.9% 230 ML IV SCH (12:35)
[2021-09-19] MEDS ORDERED: oxyCODONE HCL IR 5 MG TAB (IMMEDIATE RELEASE) PO STA (12:43)
--- NOTE | 2021-09-19 13:35 | Hospitalist Progress Note ---
Date of Service September 19, 2021 Assessment & Plan (1) Sepsis: Plan: Sepsis without shock and no further evidence of organ dysfunction secondary to likely left lower leg cellulitis With septicemia, now growing corynebacterium in BCxs Repeat blood cultures-no growth to date Wound culture from foot negative - WBC 10 with NLR 4.5:1- normal lactate - PCT 0.32, CRP 8.37 and then trended upward to 27 -MRSA swab negative -UA neg for infection - X ray left foot- negative for osteo or gas -now with pain in left knee with TKA in place and left hip - Continue with Cefepime 2GM IV q8 and Daptomycin 6mg/kg daily IV -Follow repeat blood cultures -check xrays left knee and hip, consult Ortho given severe pain and concern for joint infection--> has TKA in place (2) Cellulitis: Plan: As above- Doppler Left lower extremity to rule out DVT is negative (3) COVID-19: Plan: COVID 19 positive symptoms started 09/14 - symptoms of nasal congestion and overall body weakness. CXR no PNA, not hypoxic DOing well from this stndpoint, very mild symptoms Of note, she also had COVID approximately 3 months ago but would have to consider this a recurrent infection -Continue Remdesevir started on 09/17 -is allergic to steroids-will not give Dexamethasone - isolation precautions (4) Hypokalemia: Plan: replaced and resolved follow BMP and magnesium in AM (5) Asthma: Plan: Continue LAVINIA inhaler and PRN nebulizer no acute issues (6) Severe obstructive sleep apnea: Plan: CPAP 13 with 2L oxygen bled in continue - remains with elevated HCO3 likely component of obesity hypoventilation syndrome as well (7) CKD (chronic kidney disease) stage 3, GFR 30-59 ml/min: Plan: 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 - continue to follow with volume resuscitation (8) Dyslipidemia: Plan: Continue statin- atorvastatin 40mg - history of CVA as well - continue with Plavix and ASA although not sure why on DAPT (9) Hypertension: Plan: continue bumex, amlioride (10) Chronic heart failure with preserved ejection fraction: Plan: As above- follow hemodyanmics - restarted home bumex after receiving IVFs on admission for sepsis - Last ECHO 08/05 with EF 60-65% mild LVH normal valves and normal RVSP (11) Acid reflux: Plan: Continue pantoprazole 40 mg PO daily (12) Peripheral neuropathy: Plan: Continue gabapentin, nortriptyline (13) DJD (degenerative joint disease): 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 (14) Lymphedema: Plan: Chronic - continue bumex, hold metolazone (15) Hypomagnesemia: Plan: Secondary to loss with diruetics and decrease intake as well as water loss from fever had muscle cramps which are now resolved mag repleted and now normal (16) Hypophosphatemia: Plan: Replaced (17) Allergic rhinitis: Plan: Likely component of sinus congestion and lacrimation - she reports that she does get this every year - follow with COVID and influenza (18) Anxiety and depression: Plan: Continue Bupropion, Nortriptyline, Duloxetine, buspar (19) Left knee pain: Plan: check xrays consult Ortho (20) Left hip pain: Plan: check xray consult Ortho Plan: DVT prophylaxis-Lovenox Dispo-continued stay on med tele Admission and Anticipated Discharge Date Admission Date: September 16, 2021 Subjective Having more severe left knee and now left hip pain today. SHe was able to bear weight but was quite painful. Oxycodone 10mg not touching pain now. No SOB or chest pain Tele with NSR normal rates Review of Systems Review of Systems: All systems reviewed & are unremarkable except as noted in HPI & below Physical Exam Constitutional: WD/WN, vitals as above + morbidly obese Eyes: + anicteric sclerae Neck: trachea midline, no thyromegaly Respiratory: normal respiratory effort, lungs clear to auscultation Cardiovascular: Rate/Rhythm: regular rate and regular rhythm Heart Sounds: no murmur Extremities: + edema (1+ pitting edema left leg) Chest (Breasts): Chest: normal inspection of chest Gastrointestinal (Abdomen): normal bowel sounds, soft, nontender, no hepatosplenomegaly Musculoskeletal: Extremities: + extremities abnormal to inspection (Left knee positive mild effusion, mild erythema, TKA scar), no cyanosis and no clubbing Left hip with +TTP over lateral hip and also pain with hip flexion Skin: + rash (left groin darkly erythematous,well demarcated,c/w Joyce), + ulcer (left lateral foot to subcutaneous fat,2x1cm) and + erythema (left leg and medial thigh, less than previous) Neurologic: moves all extremities and awake; no focal motor deficits Psychiatric: A+Ox3, euthymic affect Results & Data Results & Data ([facility]) Vital Signs (Past 12 Hours) Vital Signs Temp Pulse Pulse Resp BP BP Pulse Ox 09/19/21 11:08 36.7 C 93 H 18 123/68 93 09/19/21 07:56 36.7 C 90 16 132/82 88 L 09/19/21 06:27 88 09/19/21 03:26 36.8 C 97 H 20 106/68 91 Laboratory Results 09/19/21 09/19/21 Range/Units 08:41 05:37 Sodium 136 (136-145) mmol/L Potassium 3.6 (3.5-5.1) mmol/L Chloride 94 L (98-107) mmol/L Carbon Dioxide 35 H (21-32) mmol/L Anion Gap 7 (3-11) BUN 14 (6-23) mg/dl Creatinine 1.19 1.21 H (0.6-1.2) mg/dl Est Cr Clr Drug Dosing 97.6 95.9 ml/min Est GFR ( Amer) 57.9 56.7 ml/min Est GFR (Non-Af Amer) 49.9 48.9 ml/min BUN/Creatinine Ratio 11.8 (10-20) Glucose 141 H (70-99(Fasting)) mg/dl Calcium 8.7 (8.5-10.1) mg/dl PG Care Time/CCT Total # of Minutes Spent Total Time Spent with Patient: Total time spent is greater than 50% in coordination of care (as documented) at patient's floor/unit and/or counseling patient: Coding Level of Care Code 77466 Subseq Hosp Care Lvl 3 Diagnoses Sepsis A41.9 Cellulitis L03.90 COVID-19 U07.1 Hypokalemia E87.6 Asthma J45.909 Severe obstructive sleep apnea G47.33 CKD (chronic kidney disease) stage 3, GFR 30-59 ml/min N18.32 Chronic kidney disease stage 3 subtype: stage 3b (GFR 30-44) Dyslipidemia E78.5 Hypertension I10 Chronic heart failure with preserved ejection fraction I50.32 Acid reflux K21.9 Peripheral neuropathy G62.9 DJD (degenerative joint disease) M19.90 Lymphedema I89.0 Hypomagnesemia E83.42 Hypophosphatemia E83.39 Allergic rhinitis J30.9 Anxiety and depression F41.9; F32.A Left knee pain M25.562 Left hip pain M25.552 (1) CKD (chronic kidney disease) stage 3, GFR 30-59 ml/min Chronic kidney disease stage 3 subtype: stage 3b (GFR 30-44) Qualified Code(s): N18.32 - Chronic kidney disease, stage 3b
[2021-09-19] MEDS: BUMETANIDE 1 MG TAB PO SCH (14:35)
[2021-09-19] MEDS: DAPTOmycin 725 MG in SYRINGE 0 ML IV SCH (14:36)
[2021-09-19] MEDS: MICONAZOLE NITRATE POWDER 43 GM EXT SCH ×2 (14:37→22:34)
--- NOTE | 2021-09-19 15:03 | XRay Report ---
XR knee LT 1 or 2V routine CLINICAL HISTORY: left knee pain,bacteremia COMPARISON: Left tibia and fibula radiographs February 08, 2018. Left knee radiographs October 06, 2017. FINDINGS: Evaluation is mildly compromised given difficulty positioning. No acute fracture is noted. Alignment of the total left knee arthroplasty is anatomic. No definite periprosthetic lucency. Suspe cted joint effusion is present. There is left knee soft tissue swelling. Well-corticated ossicles adj acent to the left knee are chronic. IMPRESSION: 1. Status post total left knee arthroplasty. No periprosthetic fracture. No definite periprosthetic l ucency. 2. Probable moderate to large left knee joint effusion. 3. Knee soft tissue swelling. ACT 112: Negative or not required by law. Electronically signed by: Biju Vergara M.D. 09/19/2021 3:01 PM
--- NOTE | 2021-09-19 15:08 | XRay Report ---
XR hip LT min 2V CLINICAL HISTORY: left hip pain,bacteremia COMPARISON STUDY: None. FINDINGS: Study is significantly limited from a technical standpoint due to the patient's body habitu s. No definite fracture or dislocation within the left hip. There is moderate osteoarthritis within t he left hip. The visualized pelvic bones are intact. No erosive changes identified. IMPRESSION: Limited study from a technical standpoint. No definite fracture or dislocation within th e left hip. ACT 112: Negative or not required by law. Electronically signed by: Ji Velasquez M.D. 09/19/2021 3:07 PM
--- NOTE | 2021-09-19 15:16 | Orthopedic Consultation ---
Date of Service September 19, 2021 Assessment & Plan (1) Chronic knee pain after total replacement of both knee joints: Patient has acute on chronic left knee pain with a knee replacement performed 15 years ago. She has multiple Of cellulitis over the years and certainly could have a knee infection. It certainly could be chronic as well. She got severe malalignment of the knee and it so difficult for me to imagine that she walks on this on a regular basis. Organ to aspirate her knee today and sent it off for analysis. Continue medical management and antibiotic treatment. She can mobilize as tolerated. We will follow-up on these results. Patient's knee was prepped with alcohol. I aspirated her knee for about 30 cc of slightly to moderately inflammatory of fluid. We sent this off for stat gram stain aerobic anaerobic culture as well as cell count with a differential and crystal analysis. (2) Cellulitis and abscess of left leg: (3) Sepsis: History of Present Illness Reason for Consultation: . Left leg pain Requesting Physician: . Attending Physician: Neda Turner MD . 61-year-old female with multiple medical comorbidities including morbid obesity who is 15 years out from bilateral knee replacements done in the [facility] by Dr. Larios. She says she is done reasonably well ever since the surgery but that never great. Over the past several days she has had increased pain and discomfort in the left leg. She does have multiple bouts of cellulitis and wounds in her lower left leg and foot. She was admitted for sepsis.We were consulted for evaluation of her left leg pain.Her knee replacements were done approximately 15 years ago and do boys. Describes mostly pain in her entire left leg globally. Allergies Allergy/AdvReac Type Severity Reaction Status Date / Time Corticosteroids Allergy Intermediate RASH Verified 09/16/21 15:01 (Glucocorticoids) morphine Allergy Intermediate MOUTH Verified 09/16/21 15:01 SWELLS/FACE SWELLS orange Allergy Intermediate HIVES Verified 09/16/21 15:01 Penicillins Allergy Intermediate RASH/HIVES Verified 09/16/21 15:01 prednisone Allergy Intermediate RED RASH Verified 09/16/21 15:01 pregabalin Allergy Intermediate GOOFY Verified 09/16/21 15:01 zolpidem Allergy Intermediate UNSURE Verified 09/16/21 15:01 orange (food color) Allergy Mild rash Verified 09/16/21 15:01 Home Medications Medication Instructions Recorded Confirmed Type cyanocobalamin (vitamin B-12) 1,000 mcg PO DAILY #30 tab 09/25/20 09/16/21 Rx 1,000 mcg tablet (Vitamin B-12) bupropion HCl 300 mg 24 hr tablet, 300 mg PO QAM #90 tab 01/29/21 09/16/21 Rx extended release allopurinol 100 mg tablet 100 mg PO BID #180 tab 02/03/21 09/16/21 Rx duloxetine 30 mg capsule,delayed 30 mg PO QAM #90 cap 02/19/21 09/16/21 Rx release amiloride 5 mg tablet 5 mg PO DAILY #90 tab 04/02/21 09/16/21 Rx trazodone 50 mg tablet 50 mg PO HS #30 tab 04/02/21 09/16/21 Rx clopidogrel 75 mg tablet (Plavix) 75 mg PO DAILY #90 tab 04/18/21 09/16/21 Rx pantoprazole 40 mg tablet,delayed 40 mg PO QAM #30 tab 04/18/21 09/16/21 Rx release CPAP Supplies #1 ea 04/22/21 09/12/21 Rx albuterol sulfate 90 mcg/actuation 2 puff INHALATION Q4H PRN #18 gm 05/21/21 09/16/21 Rx aerosol inhaler (Ventolin HFA) montelukast 10 mg tablet 10 mg PO PM #90 tab 05/29/21 09/16/21 Rx fluticasone 250 mcg-salmeterol 50 1 inh INHALATION BID #1 inhaler 06/25/21 09/16/21 Rx mcg/dose blistr powdr for inhalation (Advair Diskus) gabapentin 300 mg capsule 300 mg PO TID #270 cap 06/27/21 09/16/21 Rx bumetanide 2 mg tablet 4 mg PO BID #120 tab 07/15/21 09/16/21 Rx albuterol sulfate 2.5 mg INHALATION Q6H #180 ml 07/18/21 09/16/21 Rx aspirin 81 mg tablet,delayed 81 mg PO QAM #90 tab 07/18/21 09/16/21 Rx release atorvastatin 40 mg tablet 40 mg PO DAILY #90 tab 07/18/21 09/16/21 Rx calcium carbonate 300 mg (750 mg) 900 mg PO DAILY PRN #270 tab 07/18/21 09/16/21 Rx chewable tablet cholecalciferol (vitamin D3) 50 2,000 unit PO TID #270 cap 07/18/21 09/16/21 Rx mcg (2,000 unit) capsule (Vitamin D3) famotidine 20 mg tablet 20 mg PO QAM #90 tab 07/18/21 09/16/21 Rx multivitamin 1 tab PO QAM #90 tab 07/18/21 09/16/21 Rx nortriptyline 50 mg capsule 150 mg PO HS #270 cap 07/18/21 09/16/21 Rx betamethasone dipropionate 0.05 % 1 applic TOPICAL BID PRN #45 g 08/19/21 09/16/21 Rx topical cream buspirone 15 mg tablet 15 mg PO TID #270 tab 09/11/21 09/16/21 Rx metolazone 5 mg tablet 5 mg PO DAILY PRN #30 tab 09/12/21 09/16/21 Rx acetaminophen 500 mg tablet 1,000 mg PO Q4H PRN #90 tab 09/16/21 09/16/21 Rx metoclopramide HCl 5 mg tablet 5 mg PO QID PRN #90 tab 09/16/21 09/16/21 Rx Past Med/Surg History Medical History (Updated 09/19/21 @ 15:14 by Ivan Dickerson MD) Acid reflux Allergic rhinitis Arthritis Cellulitis and abscess of left leg Chronic back pain Chronic cutaneous venous stasis ulcer Chronic heart failure with preserved ejection fraction Chronic knee pain after total replacement of both knee joints CKD (chronic kidney disease) stage 3, GFR 30-59 ml/min 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; 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- DISCOVERED WITH INCIDENTAL IMAGING Degenerative joint disease, shoulder, right Dyslipidemia Gout Heart failure with preserved ejection fraction History of CVA (cerebrovascular accident) Hypertension Left leg weakness Lumbar spinal stenosis Lymphedema Morbid obesity with BMI of 50.0-59.9, adult MRSA (methicillin resistant staph aureus) culture positive Other ovarian cyst, left side Peripheral neuropathy Prediabetes Recurrent cellulitis of lower leg Sepsis TIA (transient ischemic attack) 2017- ON PLAVIX Venous stasis of both lower extremities Vitamin D deficiency Surgical History H/O total knee replacement B/L H/O ventral hernia repair History of appendectomy History of carpal tunnel release B/L History of cholecystectomy S/P tonsillectomy and adenoidectomy Status post total shoulder arthroplasty (10/17/18) R Family History Mother Diabetes Gallbladder disease Hypertension Coronary heart disease Myocardial infarction S/P CABG x 3 Sister Hodgkins lymphoma Brother Kidney disease Grandmother Breast cancer Aunt Ovarian cancer Father , 02/11/20. 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 Beliefs That Will Affect Care: None and Hindu Hindu Beliefs: Quaker marital status: marital status details: ; lives with parents & 1 daughter Current Living Situation: Family Current Living Situation Comment: daughter and mom current occupational status: disabled other: worked in [employer] in [employer]; worked for [employer] district Feels Safe at Home: Yes Safety Concerns: Feels Safe At This Time Childhood Exposure to Second-Hand Smoke: No caffeine: Yes Dental Care, Regularly: No Physical Activity Frequency: Does not Exercise Seatbelt Use: always Sunscreen Use: Yes Assistive Devices: CPAP, Nebulizer and Walker Review of Systems All systems reviewed & are unremarkable except as noted in HPI & below. Physical Exam . Physical examination reveals a morbidly obese Dougie female. She is lying in bed and looks reasonably comfortable. Examination of the left leg reveals very large soft tissue envelope. She got an anterior incision to her left knee. She does have some mild cellulitis distally in both legs. She has pain with any type of palpation of her entire leg. She is got pain with any type of provocative maneuvers. She has difficulty doing a straight leg raise. She can dorsiflex and plantarflex her foot appropriately. She does appear to have some degree of a knee effusion. She is tender over the greater bursa. Does not seem to have as much pain with hip motion. Results & Data Results & Data Laboratory Results . Lab results reveal normal white cell count. Her sed rate and C-reactive protein are elevated. Diagnostic Findings .X-rays of the left knee and hip reveal a left total knee replacement with a tibial stem. She got marked varus alignment to her knee. She does appear to have a knee joint effusion. X-rays of the left hip Are very poor quality due to the soft tissue envelope. Some mild degenerative change. No signs of bone destruction or osteomyelitis. PG Care Time/CCT Total # of Minutes Spent Total Time Spent with Patient: Total time spent is greater than 50% in coordination of care (as documented) at patient's floor/unit and/or counseling patient: Coding Level of Care Code 25356 Inpt Consult Level 4 Diagnoses Chronic knee pain after total replacement of both knee joints M25.561; M25.562; G89.28; Z96.653 Cellulitis and abscess of left leg L03.116; L02.416 Sepsis A41.9
[2021-09-19 16:26] LABS: Appearance Synovial Fluid CLOUDY; Color Synovial Fluid YELLOW; Mononuclear WBC Synovial 3.1 %; Polynuclear WBC Synovial 96.9 %; RBC Synovial Fluid (A) 13000 /uL; Source Synovial Fluid KNEE; WBC Synovial Fluid (A) 26320 /ul (0-200)
[2021-09-19] MEDS: ACETAMINOPHEN 325 MG TAB PO PRN (19:47)
[2021-09-19] MEDS: NORTRIPTYLINE HCL 25 MG CAP PO SCH (19:48)
[2021-09-19] MEDS: HYDROmorphone INJ 0.5 MG/0.5 ML SYR IV PRN (23:18)
[2021-09-20] MEDS: CEFEPIME 2,000 MG in SYRINGE 0 ML IV SCH ×3 (03:42→20:51)
[2021-09-20] MEDS: ACETAMINOPHEN 325 MG TAB PO PRN ×2 (05:35→20:52)
[2021-09-20] MEDS: oxyCODONE HCL IR 5 MG TAB (IMMEDIATE RELEASE) PO PRN ×2 (05:36→20:52)
[2021-09-20] MEDS: HYDROmorphone INJ 0.5 MG/0.5 ML SYR IV PRN ×2 (06:18→12:38)
[2021-09-20 07:42] LABS: Basophils # (auto) 0.02 K/uL (0-0.2); Basophils % (auto) 0.2 %; Eosinophils # (auto) 0.61 K/uL (0-0.5); Eosinophils % (auto) 5.9 %; Hematocrit (blood only) 36.9 % (37-47); Hemoglobin 11.9 g/dL (12.0-16.0); Immature Granulocytes # (auto) 0.02 K/uL (0.00-0.02); Immature Granulocytes % (auto) 0.2 %; Lymphocytes # (auto) 1.63 K/uL (1.2-3.4); Lymphocytes % (auto) 15.9 %; Mean Corpuscular Hemoglobin 27.5 pg (25-34); Mean Corpuscular Hgb Conc 32.2 g/dL (32-36); Mean Corpuscular Volume 85.2 fL (80-100); Mean Platelet Volume 9.6 fL (7.4-10.4); Monocytes # (auto) 0.92 K/uL (0.11-0.59); Monocytes % (auto) 8.9 %; Neutrophils # (auto) 7.08 K/uL (1.4-6.5); Neutrophils % (auto) 68.9 %; Platelet Count 265 K/uL (130-400); RDW Coefficient of Variation 16.3 % (11.5-14.5); RDW Standard Deviation 51.5 fL (36.4-46.3); Red Blood Count 4.33 M/uL (4.2-5.4); White Blood Count 10.28 K/uL (4.8-10.8)
[2021-09-20] MEDS: PANTOprazole 40 MG TAB PO SCH (07:56)
[2021-09-20] MEDS: aMILoride HCL 5 MG TAB PO SCH (07:57)
[2021-09-20] MEDS: ASPIRIN 81 MG ECTAB PO SCH (07:57)
[2021-09-20] MEDS: GABAPENTIN 300 MG CAP PO SCH ×3 (07:57→20:55)
[2021-09-20] MEDS: DULoxetine HCL 30 MG CAP PO SCH (07:58)
[2021-09-20] MEDS: CLOPIDOGREL BISULFATE 75 MG TAB PO SCH (07:58)
[2021-09-20] MEDS: buPROPion XL 300 MG TABCR PO SCH (07:58)
[2021-09-20] MEDS: ATORVASTATIN 40 MG TAB PO SCH (07:59)
[2021-09-20] MEDS: allopurinoL 100 MG TAB PO SCH ×2 (07:59→20:55)
[2021-09-20] MEDS: busPIRone 15 MG TAB PO SCH ×3 (07:59→20:54)
[2021-09-20] MEDS: ENOXAPARIN INJ 40 MG/0.4 ML SYR SQ SCH (08:00)
[2021-09-20] MEDS: MICONAZOLE NITRATE POWDER 43 GM EXT SCH ×2 (08:00→21:06)
[2021-09-20] MEDS: FLUTICASONE/VILANTEROL 200/25MCG 14 PUFFS/INHALER INH SCH (08:00)
[2021-09-20 08:48] LABS: Albumin Globulin Ratio 0.8 (0.9-2); Albumin Level 3.3 gm/dl (3.4-5.0); BUN Creatinine Ratio 15.2 (10-20); Bilirubin,Total 1.5 mg/dl (0.2-1.0); C Reactive Protein 33.39 mg/dl (0-0.5); Creatinine Clr Calc Pharmacy 109.8 ml/min; Est GFR (African American) 67.3 ml/min; Est GFR (Non-African American) 58.1 ml/min; Magnesium 1.9 mg/dl (1.7-2.4); Potassium 3.4 mmol/L (3.5-5.1); Total Protein 7.3 gm/dl (6.0-8.3)
--- NOTE | 2021-09-20 09:04 | Progress Notes ---
DATE OF SERVICE: 09/20/2021. SUBJECTIVE: A 61-year-old female admitted with sepsis, status post bilateral knee replacements with persistent progressive left leg pain and discomfort. Her symptoms are essentially unchanged from yes terday. Continues to have just diffuse leg discomfort. Right leg side seems to be doing okay. No o ther complaints. OBJECTIVE: VITAL SIGNS: Temperature 36.6. Vital signs are stable. GENERAL: Shows a morbidly obese female. She is lying in bed. Does not look uncomfortable. EXTREMITIES: Examination of the left leg reveals a very large soft tissue envelope. She is unable t o do a straight leg raise. Difficult to assess effusion. She is diffusely tender anywhere palpated around her leg. LABORATORY DATA: Her white cell count is normal. Hemoglobin 11.9. Sed rate is 129. Electrolytes a nd CRP are pending. Cell count on her knee joint fluid revealed 26,000 white cells with 97% polys. Crystal analysis is p ending. Gram stain is many WBCs, but no organisms. ASSESSMENT: A 61-year-old white female with multiple medical comorbidities including morbid obesity, now 15 years out from a knee replacement done in [place] with increasing left leg pain, most consiste nt with some degree of infection in this knee replacement based on the aspirate results. This is effie y complex situation in this morbidly obese patient who had an extensive knee surgery 15 years ago wit h a stemmed implant. There are no obvious signs of loosening of the implants. Treatment options typi elvira include irrigation, debridement and placement of antibiotic spacer versus just an I and D and i mplant retention. I feel this case is too complex and outside my comfort zone based on her obesity, the fact that these are revision implants and the fact that she has got instability in her knee on x- ray along with the fact that we do not know what implants are in there. In light of this, I would re commend she be transferred to a tertiary care center where there is better personnel to manage this c omplex problem in this very complex patient with multiple medical comorbidities, instability in her k nee, chronic wear, morbid obesity with an open wounds and infection. Once again, I would recommend a transfer to a tertiary care center for definitive care. In the meantime, continue IV antibiotics. We can continue to follow the culture growths and see if there is any bacteria growing. Any orthoped ic questions can be directed to me at [phone]. Job ID: [id number]
[2021-09-20] MEDS ORDERED: MAGNESIUM SULFATE / D5W 1 GM/100 ML BAG IV ONE (10:16)
[2021-09-20] MEDS ORDERED: POTASSIUM CHLORIDE CRTAB 20 MEQ TABCR PO STA (10:16)
[2021-09-20] MEDS: REMDESIVIR 100 MG in SODIUM CHLORIDE 0.9% 230 ML IV SCH (11:24)
[2021-09-20] MEDS: DAPTOmycin 725 MG in SYRINGE 0 ML IV SCH (13:21)
--- NOTE | 2021-09-20 14:24 | Hospitalist Progress Note ---
Date of Service September 20, 2021 Assessment & Plan (1) Sepsis: Plan: Sepsis without shock and no further evidence of organ dysfunction secondary to likely left lower leg cellulitis and now with left knee septic arthritis With septicemia, growing corynebacterium in BCxs Repeat blood cultures-remain no growth to date Wound culture from foot negative -Has never had a leukocytosis, lactate is negative - PCT initially 0.32 but now trending upward to 0.6, CRP 8.37 on admission and continues to trend upward to 33, sed rate also continues to trend upward to 129 today -MRSA swab negative -UA neg for infection - X ray left foot- negative for osteo or gas, x-ray left hip with arthritis, x- ray of left knee with moderate to large effusion and valgus appearance of artificial knee -now with pain in left knee with TKA in place and left hip-with evidence of left knee septic arthritis on joint aspiration by orthopedics - Continue with Cefepime 2GM IV q8 and Daptomycin 6mg/kg daily IV for broad- spectrum coverage -Follow repeat blood cultures -Pharmacy has asked the microbiology lab to do sensitivities on the corynebacterium -With bilateral TKAs and evidence of left knee septic arthritis, orthopedics has recommended transfer to tertiary care facility for washout and possible hardware removal-patient has been accepted at [facility] but they do not want her transferred until Wednesday as they would not do surgery over the weekend (2) Septic arthritis: Plan: Left knee Status post arthrocentesis by orthopedics-synovial fluid with 26,000 WBCs with 97% polys Gram stain with many WBCs, no organisms Fluid culture pending Continue broad-spectrum antibiotics Plan for transfer to [facility] due to super morbid obesity, also with long stem implant in the left making this a complex surgery if needs removal of hardware. At a minimum, needs a washout of the left knee (3) Elevated LFTs: Plan: Total bilirubin mildly elevated at 1.5 and AST elevated at 55 from previous Could be secondary to ongoing infection, antibiotics She has no abdominal pain or tenderness Follow LFTs (4) Contact dermatitis: Plan: With localized rash at all sites of telemetry pads Removed telemetry Treat with hydrocortisone locally Added adhesive to allergy list (5) Cellulitis: Plan: Treatment with antibiotics Doppler Left lower extremity to rule out DVT is negative (6) COVID-19: Plan: COVID 19 positive symptoms started 5/1 - symptoms of nasal congestion, intermittent headaches and overall body weakness. CXR no PNA, not hypoxic Doing well from this standpoint, very mild symptoms Of note, she also had COVID approximately 3 months ago but would have to consider this a recurrent infection -Continue Remdesevir started on 09/17 -is allergic to steroids-will not give Dexamethasone -Maintain isolation precautions (7) Hypokalemia: Plan: Continues to be mildly low Is on chronic loop diuretics Increase potassium dose to 40 M EQ now and 20 M EQ p.o. 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 at 1.05 - continue to follow with volume resuscitation (11) Dyslipidemia: Plan: Continue statin- atorvastatin 40mg - history of CVA as well - continue with Plavix and ASA although not sure why on DAPT (12) Hypertension: Plan: continue bumex, amlioride (13) Chronic heart failure with preserved ejection fraction: Plan: As above- follow hemodyanmics - restarted home bumex after receiving IVFs on admission for sepsis - Last ECHO 08/05 with EF 60-65% mild LVH normal valves and normal RVSP (14) Acid reflux: Plan: Continue pantoprazole 40 mg PO daily (15) Peripheral neuropathy: Plan: Continue gabapentin, nortriptyline (16) DJD (degenerative joint disease): 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 (17) Lymphedema: Plan: Chronic - continue bumex, holding home metolazone (18) Hypomagnesemia: Plan: Secondary to loss with diruetics and decrease intake as well as water loss from fever had muscle cramps which are now resolved mag repleted and now normal (19) Hypophosphatemia: Plan: Replaced on admission (20) Allergic rhinitis: Plan: Likely component of sinus congestion and lacrimation - she reports that she does get this every year - follow with COVID and influenza (21) Anxiety and depression: Plan: Continue Bupropion, Nortriptyline, Duloxetine, buspar (22) Left hip pain: Plan: X-ray shows arthritis Difficult examination Do not suspect septic joint in the hip Plan: DVT prophylaxis-Lovenox Dispo-continued stay but can downgrade to medical/surgical unit, remain on COVID precautions Admission and Anticipated Discharge Date Admission Date: September 16, 2021 Subjective Patient still having significant pain in the left leg and knee, does not feel its improved from yesterday. Still able to ambulate to the bathroom and back with assistance. Denies chest pain or shortness of breath. Still has an occasional headache which improves with Tylenol. Still some stuffy nose. No diarrhea or abdominal pains. Hip pain is somewhat improved. I discussed her care with orthopedic surgery-recommended transfer to tertiary care facility for surgical washout and possible antibiotic spacer or removal of hardware of the left knee. I discussed her care with orthopedic surgery and hospitalist service at [facility]-they will accept her in transfer but not until Wednesday. Telemetry with normal sinus rhythm, normal rates Review of Systems Review of Systems: All systems reviewed & are unremarkable except as noted in HPI & below Physical Exam Constitutional: WD/WN, vitals as above + morbidly obese Eyes: + anicteric sclerae Neck: trachea midline, no thyromegaly Respiratory: normal respiratory effort, lungs clear to auscultation Cardiovascular: Rate/Rhythm: regular rate and regular rhythm Heart Sounds: no murmur Extremities: + edema (1+ pitting edema left leg) Chest (Breasts): Chest: normal inspection of chest Gastrointestinal (Abdomen): normal bowel sounds, soft, nontender, no hepatosplenomegaly Musculoskeletal: Extremities: + extremities abnormal to inspection (Left knee positive mild effusion, mild erythema, TKA scar), no cyanosis and no clubbing Knee: + effusion, + skin erythema (Mild over lateral knee) and + joint line tenderness (Left knee medial and lateral) Skin: + rash (left groin darkly erythematous,well demarcated,c/w Joyce), + ulcer (left lateral foot to subcutaneous fat,2x1cm) and + erythema (left leg and medial thigh much improved from previous) Neurologic: moves all extremities and awake; no focal motor deficits Psychiatric: A+Ox3, euthymic affect Results & Data Results & Data ([facility]) Vital Signs (Past 12 Hours) Vital Signs Temp Pulse Pulse Resp BP Pulse Ox 09/20/21 11:03 36.5 C 102 H 20 117/69 94 09/20/21 09:11 89 09/20/21 07:38 36.6 C 87 20 112/62 91 09/20/21 03:13 86 20 133/80 98 09/20/21 02:42 22 Laboratory Results 09/20/21 09/20/21 09/20/21 Range/Units 07:10 07:10 07:10 WBC 10.28 (4.8-10.8) K/uL RBC 4.33 (4.2-5.4) M/uL Hgb 11.9 L (12.0-16.0) g/dL Hct 36.9 L (37-47) % MCV 85.2 (80-100) fL MCH 27.5 (25-34) pg MCHC 32.2 (32-36) g/dL RDW Std Deviation 51.5 H (36.4-46.3) fL RDW Coeff of Cleo 16.3 H (11.5-14.5) % Plt Count 265 (130-400) K/uL MPV 9.6 (7.4-10.4) fL Immature Gran % (Auto) 0.2 % Neut % (Auto) 68.9 % Lymph % (Auto) 15.9 % Milam % (Auto) 8.9 % Eos % (Auto) 5.9 % Baso % (Auto) 0.2 % Neut # (Auto) 7.08 H (1.4-6.5) K/uL Lymph # (Auto) 1.63 (1.2-3.4) K/uL Milam # (Auto) 0.92 H (0.11-0.59) K/uL Eos # (Auto) 0.61 H (0-0.5) K/uL Baso # (Auto) 0.02 (0-0.2) K/uL Immature Gran # (Auto) 0.02 (0.00-0.02) K/uL ESR 129 H (0-30) mm/hr Sodium (136-145) mmol/L Potassium (3.5-5.1) mmol/L Chloride (98-107) mmol/L Carbon Dioxide (21-32) mmol/L Anion Gap (3-11) BUN (6-23) mg/dl Creatinine (0.6-1.2) mg/dl Est Cr Clr Drug Dosing ml/min Est GFR ( Amer) ml/min Est GFR (Non-Af Amer) ml/min BUN/Creatinine Ratio (10-20) Glucose (70-99(Fasting)) mg/dl Calcium (8.5-10.1) mg/dl Magnesium (1.7-2.4) mg/dl Total Bilirubin (0.2-1.0) mg/dl AST (13-39) U/L ALT (7-52) U/L Alkaline Phosphatase (34-104) U/L Total Creatine Kinase (26-192) U/L C-Reactive Protein (0-0.5) mg/dl Total Protein (6.0-8.3) gm/dl Albumin (3.4-5.0) gm/dl Globulin (2.5-4.0) gm/dl Albumin/Globulin Ratio (0.9-2) Procalcitonin 0.61 H (0-0.5) ng/ml Fluid Comment Synovial Source Synovial Color Synovial Appearance Synovial WBC (0-200) /ul Synovial RBC /uL Synovial Polynuclear % % Synovial Mononuclear % % Synovial Crystals 09/20/21 09/19/21 09/19/21 Range/Units 07:10 Unknown Unknown WBC (4.8-10.8) K/uL RBC (4.2-5.4) M/uL Hgb (12.0-16.0) g/dL Hct (37-47) % MCV (80-100) fL MCH (25-34) pg MCHC (32-36) g/dL RDW Std Deviation (36.4-46.3) fL RDW Coeff of Cleo (11.5-14.5) % Plt Count (130-400) K/uL MPV (7.4-10.4) fL Immature Gran % (Auto) % Neut % (Auto) % Lymph % (Auto) % Milam % (Auto) % Eos % (Auto) % Baso % (Auto) % Neut # (Auto) (1.4-6.5) K/uL Lymph # (Auto) (1.2-3.4) K/uL Milam # (Auto) (0.11-0.59) K/uL Eos # (Auto) (0-0.5) K/uL Baso # (Auto) (0-0.2) K/uL Immature Gran # (Auto) (0.00-0.02) K/uL ESR (0-30) mm/hr Sodium 136 (136-145) mmol/L Potassium 3.4 L (3.5-5.1) mmol/L Chloride 95 L (98-107) mmol/L Carbon Dioxide 32 (21-32) mmol/L Anion Gap 9 (3-11) BUN 16 (6-23) mg/dl Creatinine 1.05 (0.6-1.2) mg/dl Est Cr Clr Drug Dosing 109.8 ml/min Est GFR ( Amer) 67.3 ml/min Est GFR (Non-Af Amer) 58.1 ml/min BUN/Creatinine Ratio 15.2 (10-20) Glucose 107 H (70-99(Fasting)) mg/dl Calcium 9.0 (8.5-10.1) mg/dl Magnesium 1.9 (1.7-2.4) mg/dl Total Bilirubin 1.5 H (0.2-1.0) mg/dl AST 55 H (13-39) U/L ALT 40 (7-52) U/L Alkaline Phosphatase 117 H (34-104) U/L Total Creatine Kinase 168 (26-192) U/L C-Reactive Protein 33.39 H (0-0.5) mg/dl Total Protein 7.3 (6.0-8.3) gm/dl Albumin 3.3 L (3.4-5.0) gm/dl Globulin 4.0 (2.5-4.0) gm/dl Albumin/Globulin Ratio 0.8 L (0.9-2) Procalcitonin (0-0.5) ng/ml Fluid Comment Synovial Source KNEE Synovial Color YELLOW Synovial Appearance CLOUDY Synovial WBC 96280 H (0-200) /[place] [address] /uL Synovial Polynuclear % 96.9 % Synovial Mononuclear % 3.1 % Synovial Crystals Pending 09/19/21 09/19/21 Range/Units 05:41 05:41 WBC (4.8-10.8) K/uL RBC (4.2-5.4) M/uL Hgb (12.0-16.0) g/dL Hct (37-47) % MCV (80-100) fL MCH (25-34) pg MCHC (32-36) g/dL RDW Std Deviation (36.4-46.3) fL RDW Coeff of Cleo (11.5-14.5) % Plt Count (130-400) K/uL MPV (7.4-10.4) fL Immature Gran % (Auto) % Neut % (Auto) % Lymph % (Auto) % Milam % (Auto) % Eos % (Auto) % Baso % (Auto) % Neut # (Auto) (1.4-6.5) K/uL Lymph # (Auto) (1.2-3.4) K/uL Milam # (Auto) (0.11-0.59) K/uL Eos # (Auto) (0-0.5) K/uL Baso # (Auto) (0-0.2) K/uL Immature Gran # (Auto) (0.00-0.02) K/uL ESR 108 H (0-30) mm/hr Sodium (136-145) mmol/L Potassium (3.5-5.1) mmol/L Chloride (98-107) mmol/L Carbon Dioxide (21-32) mmol/L Anion Gap (3-11) BUN (6-23) mg/dl Creatinine (0.6-1.2) mg/dl Est Cr Clr Drug Dosing ml/min Est GFR ( Amer) ml/min Est GFR (Non-Af Amer) ml/min BUN/Creatinine Ratio (10-20) Glucose (70-99(Fasting)) mg/dl Calcium (8.5-10.1) mg/dl Magnesium (1.7-2.4) mg/dl Total Bilirubin (0.2-1.0) mg/dl AST (13-39) U/L ALT (7-52) U/L Alkaline Phosphatase (34-104) U/L Total Creatine Kinase (26-192) U/L C-Reactive Protein 28.88 H (0-0.5) mg/dl Total Protein (6.0-8.3) gm/dl Albumin (3.4-5.0) gm/dl Globulin (2.5-4.0) gm/dl Albumin/Globulin Ratio (0.9-2) Procalcitonin (0-0.5) ng/ml Fluid Comment Synovial Source Synovial Color Synovial Appearance Synovial WBC (0-200) /ul Synovial RBC /uL Synovial Polynuclear % % Synovial Mononuclear % % Synovial Crystals Diagnostic Findings Hip X-Ray 09/19/21 14:02 XR hip LT min 2V CLINICAL HISTORY: left hip pain,bacteremia COMPARISON STUDY: None. FINDINGS: Study is significantly limited from a technical standpoint due to the patient's body habitus. No definite fracture or dislocation within the left hip. There is moderate osteoarthritis within the left hip. The visualized pelvic bones are intact. No erosive changes identified. IMPRESSION: Limited study from a technical standpoint. No definite fracture or dislocation within the left hip. ACT 112: Negative or not required by law. Electronically signed by: Ji Velasquez M.D. 09/19/2021 3:07 PM Knee X-Ray 09/19/21 14:02 XR knee LT 1 or 2V routine CLINICAL HISTORY: left knee pain,bacteremia COMPARISON: Left tibia and fibula radiographs February 08, 2018. Left knee radiographs October 06, 2017. FINDINGS: Evaluation is mildly compromised given difficulty positioning. No acute fracture is noted. Alignment of the total left knee arthroplasty is anatomic. No definite periprosthetic lucency. Suspected joint effusion is present. There is left knee soft tissue swelling. Well-corticated ossicles adjacent to the left knee are chronic. IMPRESSION: 1. Status post total left knee arthroplasty. No periprosthetic fracture. No definite periprosthetic lucency. 2. Probable moderate to large left knee joint effusion. 3. Knee soft tissue swelling. ACT 112: Negative or not required by law. Electronically signed by: Biju Vergara M.D. 09/19/2021 3:01 PM PG Care Time/CCT Total # of Minutes Spent Total Time Spent with Patient: Total time spent is greater than 50% in coordination of care (as documented) at patient's floor/unit and/or counseling patient: Coding Level of Care Code 87167 Subseq Hosp Care Lvl 3 Diagnoses Sepsis A41.9 Cellulitis L03.90 COVID-19 U07.1 Hypokalemia E87.6 Asthma J45.909 Severe obstructive sleep apnea G47.33 CKD (chronic kidney disease) stage 3, GFR 30-59 ml/min N18.32 Chronic kidney disease stage 3 subtype: stage 3b (GFR 30-44) Dyslipidemia E78.5 Hypertension I10 Chronic heart failure with preserved ejection fraction I50.32 Acid reflux K21.9 Peripheral neuropathy G62.9 DJD (degenerative joint disease) M19.90 Lymphedema I89.0 Hypomagnesemia E83.42 Hypophosphatemia E83.39 Allergic rhinitis J30.9 Anxiety and depression F41.9; F32.A Left hip pain M25.552 Septic arthritis M00.9 Contact dermatitis L25.9 Elevated LFTs R79.89 (1) CKD (chronic kidney disease) stage 3, GFR 30-59 ml/min Chronic kidney disease stage 3 subtype: stage 3b (GFR 30-44) Qualified Code(s): N18.32 - Chronic kidney disease, stage 3b
[2021-09-20] MEDS: BUMETANIDE 1 MG TAB PO SCH (15:47)
[2021-09-20] MEDS: HYDROCORTISONE 1% OINT 30 GM TUBE EXT SCH ×2 (15:47→21:05)
[2021-09-20] MEDS ORDERED: CALCIUM CARBONATE 500 MG CHEWABLE TAB PO PRN (15:58)
[2021-09-20] MEDS: POTASSIUM CHLORIDE CRTAB 20 MEQ TABCR PO SCH (20:53)
[2021-09-20] MEDS: NORTRIPTYLINE HCL 25 MG CAP PO SCH (20:53)
[2021-09-20] MEDS: MONTELUKAST SODIUM 10 MG TABLET PO SCH (21:05)
[2021-09-21] MEDS: CEFEPIME 2,000 MG in SYRINGE 0 ML IV SCH ×3 (03:27→20:58)
[2021-09-21] MEDS: oxyCODONE HCL IR 5 MG TAB (IMMEDIATE RELEASE) PO PRN (04:03)
[2021-09-21] MEDS: ACETAMINOPHEN 325 MG TAB PO PRN (04:04)
[2021-09-21] MEDS: HYDROmorphone INJ 0.5 MG/0.5 ML SYR IV PRN ×2 (05:20→18:07)
[2021-09-21] MEDS: POLYETHYLENE (MIRALAX) 17 GM PACK PO PRN (05:27)
[2021-09-21 06:16] LABS: Basophils # (auto) 0.01 K/uL (0-0.2); Basophils % (auto) 0.1 %; Eosinophils # (auto) 0.57 K/uL (0-0.5); Eosinophils % (auto) 5.3 %; Hematocrit (blood only) 36.2 % (37-47); Hemoglobin 11.9 g/dL (12.0-16.0); Immature Granulocytes # (auto) 0.04 K/uL (0.00-0.02); Immature Granulocytes % (auto) 0.4 %; Lymphocytes # (auto) 1.61 K/uL (1.2-3.4); Lymphocytes % (auto) 14.8 %; Mean Corpuscular Hemoglobin 28.2 pg (25-34); Mean Corpuscular Hgb Conc 32.9 g/dL (32-36); Mean Corpuscular Volume 85.8 fL (80-100); Monocytes # (auto) 0.83 K/uL (0.11-0.59); Monocytes % (auto) 7.6 %; Neutrophils # (auto) 7.79 K/uL (1.4-6.5); Neutrophils % (auto) 71.8 %; Platelet Count 314 K/uL (130-400); RDW Coefficient of Variation 16.2 % (11.5-14.5); RDW Standard Deviation 51.6 fL (36.4-46.3); Red Blood Count 4.22 M/uL (4.2-5.4); White Blood Count 10.85 K/uL (4.8-10.8)
[2021-09-21 06:47] LABS: Albumin Level 3.2 gm/dl (3.4-5.0); Bilirubin Direct 0.3 mg/dl (0-0.2); Bilirubin,Total 1.1 mg/dl (0.2-1.0); C Reactive Protein 27.56 mg/dl (0-0.5); Calcium 8.9 mg/dl (8.5-10.1); Creatinine Clr Calc Pharmacy 100.8 ml/min; Est GFR (Non-African American) 52.6 ml/min; Magnesium 1.9 mg/dl (1.7-2.4); Potassium 3.6 mmol/L (3.5-5.1); Total Protein 7.2 gm/dl (6.0-8.3)
[2021-09-21] MEDS: FLUTICASONE/VILANTEROL 200/25MCG 14 PUFFS/INHALER INH SCH (07:55)
[2021-09-21] MEDS: CYANOCOBALAMIN (B-12) 500 MCG TABLET PO SCH (07:56)
[2021-09-21] MEDS: MULTIVITAMIN TAB PO SCH (07:56)
[2021-09-21] MEDS: FAMOTIDINE 20 MG TAB PO SCH (07:56)
[2021-09-21] MEDS: busPIRone 15 MG TAB PO SCH ×3 (07:57→21:05)
[2021-09-21] MEDS: ENOXAPARIN INJ 40 MG/0.4 ML SYR SQ SCH (07:57)
[2021-09-21] MEDS: POTASSIUM CHLORIDE CRTAB 20 MEQ TABCR PO SCH ×2 (07:57→21:06)
[2021-09-21] MEDS: GABAPENTIN 300 MG CAP PO SCH ×3 (07:58→21:05)
[2021-09-21] MEDS: ATORVASTATIN 40 MG TAB PO SCH (07:58)
[2021-09-21] MEDS: PANTOprazole 40 MG TAB PO SCH (07:58)
[2021-09-21] MEDS: allopurinoL 100 MG TAB PO SCH ×2 (07:58→21:04)
[2021-09-21] MEDS: aMILoride HCL 5 MG TAB PO SCH (07:58)
[2021-09-21] MEDS: ASPIRIN 81 MG ECTAB PO SCH (07:59)
[2021-09-21] MEDS: buPROPion XL 300 MG TABCR PO SCH (07:59)
[2021-09-21] MEDS: CLOPIDOGREL BISULFATE 75 MG TAB PO SCH (07:59)
[2021-09-21] MEDS: HYDROCORTISONE 1% OINT 30 GM TUBE EXT SCH ×2 (07:59→21:05)
[2021-09-21] MEDS: MICONAZOLE NITRATE POWDER 43 GM EXT SCH ×2 (07:59→21:06)
[2021-09-21] MEDS: DULoxetine HCL 30 MG CAP PO SCH (07:59)
--- NOTE | 2021-09-21 08:56 | Progress Notes ---
DATE OF SERVICE: 09/21/2021. SUBJECTIVE: A 61-year-old female admitted with sepsis and what appears to be a left knee infection a fter knee replacement. She continues to just have left leg pain. Really no interval change. Not an y better, not any worse. OBJECTIVE: VITAL SIGNS: Temperature 36.4. Vital signs are stable. GENERAL: Shows a pleasant, obese, middle-aged female. She is sitting up in bed and eating breakfast . She looks comfortable. EXTREMITIES: Examination of the left leg reveals a large soft tissue envelope. She has got well-hea led incision. She is diffusely tender to palpate anywhere. She has difficulty doing a straight leg raise. No redness or warmth. LABORATORY DATA: Shows white cell count 10.85. Hemoglobin 11.9. Electrolytes are stable. Culture results in the left knee are showing no growth. ASSESSMENT: A 61-year-old female with multiple medical comorbidities, status post bilateral knee rep lacements in the past as well as a shoulder replacement with what appears to be a left septic knee. She was admitted with sepsis, which seems to be under control. Based on her size and medical situati on considering the revision implants and then an alignment of the knee, this is too complex of an iss ue for us to manage here. We have contacted [facility] and they are willing to take her early next week for management. She will likely need irrigation, debridement and possible antibiotic spacer and rev ision surgery at some point. She is at high risk of recurrence with her medical comorbidities and op en wounds. PLAN: Continue antibiotic management. Recommend transferring to [facility] when bed available and are willing to accept. If there are any other orthopedic issues or questions, please feel free to contac t me or Dr. Longoria. I can be contacted at [phone]. Job ID: [id number]
[2021-09-21] MEDS: REMDESIVIR 100 MG in SODIUM CHLORIDE 0.9% 230 ML IV SCH (11:24)
[2021-09-21] MEDS: BUMETANIDE 1 MG TAB PO SCH (13:48)
[2021-09-21] MEDS: DAPTOmycin 725 MG in SYRINGE 0 ML IV SCH (13:48)
--- NOTE | 2021-09-21 19:15 | Hospitalist Progress Note ---
Date of Service September 21, 2021 Assessment & Plan (1) Sepsis: Plan: Sepsis without shock and no further evidence of organ dysfunction secondary to likely left lower leg cellulitis and now with left knee septic arthritis With septicemia, growing corynebacterium in BCxs Repeat blood cultures-remain no growth to date Wound culture from foot negative -Has never had a leukocytosis however WBC count now starting to trend upward. Lactate is negative - PCT initially 0.32 but now trending upward to 0.6, CRP 8.37 on admission and trended upward to 33 but now coming back down ESR also continues to trend upward to 129 -MRSA swab negative -UA neg for infection - X ray left foot- negative for osteo or gas, x-ray left hip with arthritis, x- ray of left knee with moderate to large effusion and valgus appearance of artificial knee -with pain in left knee with TKA in place and left hip-with evidence of left knee septic arthritis on joint aspiration by orthopedics -Synovial fluid Gram stain with many polys but no organisms, culture no growth to date preliminary - Continue with Cefepime 2GM IV q8 and Daptomycin 6mg/kg daily IV for broad- spectrum coverage -Follow repeat blood cultures and synovial fluid cultures -Pharmacy has asked the microbiology lab to do sensitivities on the corynebacterium-pending -With bilateral TKAs and evidence of left knee septic arthritis, orthopedics has recommended transfer to tertiary care facility for washout and possible hardware removal-patient has been accepted at [facility] but they do not want her transferred until Wednesday as they would not do surgery over the weekend-equal opportunity specialist to call Wednesday morning to ensure that she is on the waiting list for a bed on Wednesday (2) Septic arthritis: Plan: Left knee Status post arthrocentesis by orthopedics-synovial fluid with 26,000 WBCs with 97% polys Gram stain with many WBCs, no organisms Fluid culture pending but no growth to date Continue broad-spectrum antibiotics Plan for transfer to [facility] due to super morbid obesity, also with long stem implant in the left making this a complex surgery if needs removal of hardware. At a minimum, needs a washout of the left knee (3) Elevated LFTs: Plan: Total bilirubin mildly elevated but now improved to 1.1, AST mildly elevated at 67 alkaline phosphatase mildly elevated 125 Could be secondary to ongoing infection, antibiotics She has no abdominal pain or tenderness Follow LFTs (4) Contact dermatitis: Plan: With localized rash at all sites of telemetry pads on chest Removed telemetry Treat with hydrocortisone locally Added adhesive to allergy list (5) Cellulitis: Plan: Continue treatment with antibiotics Erythema is definitely improving on the left lower extremity since admission Doppler Left lower extremity to rule out DVT is negative (6) COVID-19: Plan: COVID 19 positive symptoms started 09/14 - symptoms of nasal congestion, intermittent headaches and overall body weakness. CXR no PNA, not hypoxic Doing well from this standpoint, very mild symptoms Of note, she also had COVID approximately 3 months ago but would have to consider this a recurrent infection -Has now completed a 5-day course of Remdesevir -is allergic to steroids-will not give Dexamethasone -Maintain isolation precautions (7) Hypokalemia: Plan: Finally improving with replacement Is on chronic loop diuretics Continue potassium chloride 20 M EQ p.o. twice daily follow BMP and magnesium in AM (8) Asthma: Plan: Continue LAVINIA inhaler and PRN nebulizer no acute issues (9) Severe obstructive sleep apnea: Plan: CPAP 13 with 2L oxygen bled in continue - remains with elevated HCO3 likely component of obesity hypoventilation syndrome as well (10) CKD (chronic kidney disease) stage 3, GFR 30-59 ml/min: Plan: CKD IIIa [employer] is at baseline at 1.1 - continue to follow with volume resuscitation (11) Dyslipidemia: Plan: Continue statin- atorvastatin 40mg - history of CVA as well - continue with Plavix and ASA although not sure why on DAPT (12) Hypertension: Plan: continue bumex, amiloride (13) Chronic heart failure with preserved ejection fraction: Plan: As above- follow hemodynamics - restarted home bumex after receiving IVFs on admission for sepsis - Last ECHO 08/05 with EF 60-65% mild LVH normal valves and normal RVSP (14) Acid reflux: Plan: Continue pantoprazole 40 mg PO daily (15) Peripheral neuropathy: Plan: Continue gabapentin, nortriptyline (16) DJD (degenerative joint disease): 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 (17) Lymphedema: Plan: Chronic - continue bumex, holding home metolazone due to significant electrolyte abnormalities on admission (18) Hypomagnesemia: Plan: Secondary to loss with diruetics and decrease intake as well as water loss from fever had muscle cramps which are now resolved mag repleted and now normal (19) Hypophosphatemia: Plan: Replaced on admission (20) Allergic rhinitis: Plan: Likely component of sinus congestion and lacrimation - she reports that she does get this every year - follow with COVID and influenza (21) Anxiety and depression: Plan: Continue Bupropion, Nortriptyline, Duloxetine, buspar (22) Left hip pain: Plan: X-ray shows arthritis Difficult examination Do not suspect septic joint in the hip Plan: DVT prophylaxis-Lovenox Dispo-continued stay on medical/surgical unit, remain on COVID precautions, awaiting transfer to [facility] hopefully on Wednesday if bed available Admission and Anticipated Discharge Date Admission Date: September 16, 2021 Subjective Patient still having significant pain in the left knee but was able to ambulate to the bathroom back a few times today. She has not moved her bowels in 2 days but took MiraLAX today. Denies chest pains or shortness of breath, no nausea. She is eating and drinking, no abdominal pain. Review of Systems Review of Systems: All systems reviewed & are unremarkable except as noted in HPI & below Physical Exam Constitutional: WD/WN, vitals as above + morbidly obese Eyes: + anicteric sclerae Neck: trachea midline, no thyromegaly Respiratory: normal respiratory effort, lungs clear to auscultation Cardiovascular: Rate/Rhythm: regular rate and regular rhythm Heart Sounds: no murmur Extremities: + edema (1+ pitting edema left leg) Chest (Breasts): Chest: normal inspection of chest Gastrointestinal (Abdomen): normal bowel sounds, soft, nontender, no hepatosplenomegaly Musculoskeletal: Extremities: + extremities abnormal to inspection (Left knee positive mild effusion, mild erythema, TKA scar), no cyanosis and no clubbing Knee: + effusion, + skin erythema (Mild over lateral knee) and + joint line tenderness (Left knee medial and lateral) Skin: + rash (left groin rash now completely resolved), + ulcer (left lateral foot to subcutaneous fat,2x1cm) and + erythema (left leg and medial thigh much improved from previous) Neurologic: moves all extremities and awake; no focal motor deficits Psychiatric: A+Ox3, euthymic affect Results & Data Results & Data ([facility]) Vital Signs (Past 12 Hours) Vital Signs Temp Pulse Resp BP Pulse Ox 09/21/21 07:54 36.4 C L 90 18 116/75 96 Laboratory Results 09/21/21 09/21/21 09/21/21 Range/Units 05:38 05:38 05:38 WBC 10.85 H (4.8-10.8) K/uL RBC 4.22 (4.2-5.4) M/uL Hgb 11.9 L (12.0-16.0) g/dL Hct 36.2 L (37-47) % MCV 85.8 (80-100) fL MCH 28.2 (25-34) pg MCHC 32.9 (32-36) g/dL RDW Std Deviation 51.6 H (36.4-46.3) fL RDW Coeff of Cleo 16.2 H (11.5-14.5) % Plt Count 314 (130-400) K/uL MPV 10.0 (7.4-10.4) fL Immature Gran % (Auto) 0.4 % Neut % (Auto) 71.8 % Lymph % (Auto) 14.8 % [place] % (Auto) 7.6 % Eos % (Auto) 5.3 % Baso % (Auto) 0.1 % Neut # (Auto) 7.79 H (1.4-6.5) K/uL Lymph # (Auto) 1.61 (1.2-3.4) K/uL [place] # (Auto) 0.83 H (0.11-0.59) K/uL Eos # (Auto) 0.57 H (0-0.5) K/uL Baso # (Auto) 0.01 (0-0.2) K/uL Immature Gran # (Auto) 0.04 H (0.00-0.02) K/uL ESR 128 H (0-30) mm/hr Sodium 136 (136-145) mmol/L Potassium 3.6 (3.5-5.1) mmol/L Chloride 95 L (98-107) mmol/L Carbon Dioxide 32 (21-32) mmol/L Anion Gap 9 (3-11) BUN 16 (6-23) mg/dl Creatinine 1.14 (0.6-1.2) mg/dl Est Cr Clr Drug Dosing 100.8 ml/min Est GFR ( Amer) 61.0 ml/min Est GFR (Non-Af Amer) 52.6 ml/min BUN/Creatinine Ratio 14.0 (10-20) Glucose 101 H (70-99(Fasting)) mg/dl Calcium 8.9 (8.5-10.1) mg/dl Magnesium 1.9 (1.7-2.4) mg/dl Total Bilirubin 1.1 H (0.2-1.0) mg/dl Direct Bilirubin 0.3 H (0-0.2) mg/dl AST 67 H (13-39) U/L ALT 51 (7-52) U/L Alkaline Phosphatase 125 H (34-104) U/L C-Reactive Protein 27.56 H (0-0.5) mg/dl Total Protein 7.2 (6.0-8.3) gm/dl Albumin 3.2 L (3.4-5.0) gm/dl PG Care Time/CCT Total # of Minutes Spent Total Time Spent with Patient: Total time spent is greater than 50% in coordination of care (as documented) at patient's floor/unit and/or counseling patient: Coding Level of Care Code 76658 Subseq Hosp Care Lvl 2 Diagnoses Sepsis A41.9 Septic arthritis M00.9 Elevated LFTs R79.89 Contact dermatitis L25.9 Cellulitis L03.90 COVID-19 U07.1 Hypokalemia E87.6 Asthma J45.909 Severe obstructive sleep apnea G47.33 CKD (chronic kidney disease) stage 3, GFR 30-59 ml/min N18.32 Chronic kidney disease stage 3 subtype: stage 3b (GFR 30-44) Dyslipidemia E78.5 Hypertension I10 Chronic heart failure with preserved ejection fraction I50.32 Acid reflux K21.9 Peripheral neuropathy G62.9 DJD (degenerative joint disease) M19.90 Lymphedema I89.0 Hypomagnesemia E83.42 Hypophosphatemia E83.39 Allergic rhinitis J30.9 Anxiety and depression F41.9; F32.A Left hip pain M25.552 (1) CKD (chronic kidney disease) stage 3, GFR 30-59 ml/min Chronic kidney disease stage 3 subtype: stage 3b (GFR 30-44) Qualified Code(s): N18.32 - Chronic kidney disease, stage 3b
[2021-09-21] MEDS: MONTELUKAST SODIUM 10 MG TABLET PO SCH (21:06)
[2021-09-21] MEDS: NORTRIPTYLINE HCL 25 MG CAP PO SCH (21:06)
[2021-09-22] MEDS: oxyCODONE HCL IR 5 MG TAB (IMMEDIATE RELEASE) PO PRN ×2 (02:40→21:16)
[2021-09-22] MEDS: CEFEPIME 2,000 MG in SYRINGE 0 ML IV SCH ×3 (04:24→20:18)
[2021-09-22 07:43] LABS: Basophils # (auto) 0.02 K/uL (0-0.2); Basophils % (auto) 0.2 %; Eosinophils # (auto) 0.58 K/uL (0-0.5); Eosinophils % (auto) 5.1 %; Hematocrit (blood only) 35.8 % (37-47); Hemoglobin 11.4 g/dL (12.0-16.0); Immature Granulocytes # (auto) 0.05 K/uL (0.00-0.02); Immature Granulocytes % (auto) 0.4 %; Lymphocytes % (auto) 16.6 %; Mean Corpuscular Hemoglobin 27.3 pg (25-34); Mean Corpuscular Hgb Conc 31.8 g/dL (32-36); Mean Corpuscular Volume 85.9 fL (80-100); Mean Platelet Volume 9.9 fL (7.4-10.4); Monocytes # (auto) 0.89 K/uL (0.11-0.59); Monocytes % (auto) 7.8 %; Neutrophils # (auto) 8.01 K/uL (1.4-6.5); Neutrophils % (auto) 69.9 %; Platelet Count 354 K/uL (130-400); RDW Coefficient of Variation 16.5 % (11.5-14.5); RDW Standard Deviation 51.6 fL (36.4-46.3); Red Blood Count 4.17 M/uL (4.2-5.4); White Blood Count 11.45 K/uL (4.8-10.8)
[2021-09-22] MEDS: FLUTICASONE/VILANTEROL 200/25MCG 14 PUFFS/INHALER INH SCH (07:51)
[2021-09-22] MEDS: PANTOprazole 40 MG TAB PO SCH (07:51)
[2021-09-22] MEDS: HYDROCORTISONE 1% OINT 30 GM TUBE EXT SCH ×2 (07:51→20:26)
[2021-09-22] MEDS: ASPIRIN 81 MG ECTAB PO SCH (07:51)
[2021-09-22] MEDS: CYANOCOBALAMIN (B-12) 500 MCG TABLET PO SCH (07:52)
[2021-09-22] MEDS: DULoxetine HCL 30 MG CAP PO SCH (07:52)
[2021-09-22] MEDS: allopurinoL 100 MG TAB PO SCH ×2 (07:52→20:24)
[2021-09-22] MEDS: busPIRone 15 MG TAB PO SCH ×3 (07:52→20:25)
[2021-09-22] MEDS: MULTIVITAMIN TAB PO SCH (07:53)
[2021-09-22] MEDS: FAMOTIDINE 20 MG TAB PO SCH (07:53)
[2021-09-22] MEDS: GABAPENTIN 300 MG CAP PO SCH ×3 (07:53→20:25)
[2021-09-22] MEDS: ATORVASTATIN 40 MG TAB PO SCH (07:53)
[2021-09-22] MEDS: aMILoride HCL 5 MG TAB PO SCH (07:54)
[2021-09-22] MEDS: POTASSIUM CHLORIDE CRTAB 20 MEQ TABCR PO SCH ×2 (07:54→20:27)
[2021-09-22] MEDS: ENOXAPARIN INJ 40 MG/0.4 ML SYR SQ SCH (07:54)
[2021-09-22] MEDS: CLOPIDOGREL BISULFATE 75 MG TAB PO SCH (07:54)
[2021-09-22] MEDS: buPROPion XL 300 MG TABCR PO SCH (07:54)
[2021-09-22 08:01] LABS: Albumin Globulin Ratio 0.8 (0.9-2); Albumin Level 3.2 gm/dl (3.4-5.0); Bilirubin,Total 0.9 mg/dl (0.2-1.0); C Reactive Protein 22.06 mg/dl (0-0.5); Est GFR (African American) 56.7 ml/min; Est GFR (Non-African American) 48.9 ml/min; Globulin 3.8 gm/dl (2.5-4.0); Magnesium 1.9 mg/dl (1.7-2.4); Potassium 3.7 mmol/L (3.5-5.1)
[2021-09-22] MEDS: HYDROmorphone INJ 0.5 MG/0.5 ML SYR IV PRN ×3 (11:00→22:41)
[2021-09-22] MEDS: MICONAZOLE NITRATE POWDER 43 GM EXT SCH ×2 (11:00→20:26)
[2021-09-22] MEDS: BUMETANIDE 1 MG TAB PO SCH (14:14)
[2021-09-22] MEDS: DAPTOmycin 725 MG in SYRINGE 0 ML IV SCH (14:17)
--- NOTE | 2021-09-22 15:54 | Discharge Summary ---
Date of Service September 22, 2021 Admission HPI Per Admitting Provider 61 YOF with medical history of: HTN, COPD, ANDRZEJ, HFpEF, Morbid Obesity, RV dilation, iron deficiency anemia(requiring venofir), GERD, Anxiety/Depression, CKDIII, DJD, bilateral knee replacements, Lymphedema. Patient presents to the EMD today for complaints of fatigue, headache, fevers and increase in left lower leg erythema and swelling. Patient was previously being treated for left lower extremity cellulitis at [facility]- where she just completed a course of doxycycline ~ 2 weeks ago. Since that time she has noted increase in the erythema to the leg. She also has a wound on her left lateral foot that was from a blister that was reportedly cut out- she reports that she is dressing that every day with [employer] at home. It is currently not dressed. Patient also endorses that for the past 2 days she has had an increase in frontal headache with congestion, draining clear sinus drainage and awakening in the morning with sore throat. This was also associated with myalgias, and left eye redness and itching. She reports that she had some optic abx eye drops at home that she used and this is mostly resolved. Lacrimation from that eye was clear. She reports that she has not had any diarrhea and her appetite has remained normal, however she is noted to have low magnesium and low phosphorus. In the EMD she had an appropriate sepsis work up to include blood cultures, PCT, Lactate, and CBC. She was started on Daptomycin and Cefepime. She was given 1 liter of crystalloid and 1 gm of Magnesium. Patient will receive another liter of crystalloid as she has not voided since she has been here and continue with mag and phos placement. Wound care consultation for her left foot ulceration, as well as Ultrasound of left lower leg to evaluate for DVT. Patient overall states she feels better than when she came in but remains febrile. Awaiting COVID and influenza test, will add on MRSA swab as well. Principal Diagnosis Transfer to tertiary center 1. Sepsis- resolved 2. Prosthetic Joint Infection- left kneeneeds I&D at the least with potential explantation/removal of hardware 3. Covid-19-- asymptomatic Discharge Exam General: Resting comfortably in her hospital bed. She does not appear ill or toxic. NAD. HEENT: Head is AT/NC. Buccal mucosa is moist and pink Neck: No JVD. Negative hepatojugular reflex Cardiac: RRR but very distant heart soundslikely due to habitus Lungs: Breathing comfortably on ambient air. No accessory muscle use. Diminished breath sounds throughout (likely due to habitus) without wheezes, rales or rhonchi Abdomen: Normoactive X4. Soft and nontender in all quadrants. Extremities: Bilateral lower extremities extremely large (from adiposity/habitus). Old incisions over bilateral knees. Left knee is not erythematous but is edematous. Vascular changes to the bilateral lower extremities Neuro: A&O X4. Cranial nerves II through XII are grossly intact. No focal neuro deficits Skin: See above Psych: Appropriate affect. Pleasant and cooperative Discharge Data Allergies Allergy/AdvReac Type Severity Reaction Status Date / Time Corticosteroids Allergy Intermediate RASH Verified 09/16/21 15:01 (Glucocorticoids) morphine Allergy Intermediate MOUTH Verified 09/16/21 15:01 SWELLS/FACE SWELLS orange Allergy Intermediate HIVES Verified 09/16/21 15:01 Penicillins Allergy Intermediate RASH/HIVES Verified 09/16/21 15:01 prednisone Allergy Intermediate RED RASH Verified 09/16/21 15:01 pregabalin Allergy Intermediate GOOFY Verified 09/16/21 15:01 zolpidem Allergy Intermediate UNSURE Verified 09/16/21 15:01 adhesive Allergy Mild Skin rash Verified 09/20/21 14:42 localized orange (food color) Allergy Mild rash Verified 09/16/21 15:01 Consultations 09/16/21 13:12 ED Decision to Admit Stat 09/19/21 13:54 Consult Orthopedic Surgery Routine Assessment & Plan (1) Chronic knee pain after total replacement of both knee joints: Patient has acute on chronic left knee pain with a knee replacement performed 15 years ago. She has multiple Of cellulitis over the years and certainly could have a knee infection. It certainly could be chronic as well. She got severe malalignment of the knee and it so difficult for me to imagine that she walks on this on a regular basis. Organ to aspirate her knee today and sent it off for analysis. Continue medical management and antibiotic treatment. She can mobilize as tolerated. We will follow-up on these results. Patient's knee was prepped with alcohol. I aspirated her knee for about 30 cc of slightly to moderately inflammatory of fluid. We sent this off for stat gram stain aerobic anaerobic culture as well as cell count with a differential and crystal analysis. (2) Cellulitis and abscess of left leg: (3) Sepsis: 09/22/21 10:58 Burn CD for patient Routine Ordered Studies 09/16/21 14:11 US venous doppler LE LT Urgent IMPRESSION: No DVT within the left lower extremity. Hospital Course (1) Sepsis: Initially with tachycardia, tachypnea and fever sepsis without shock and no further evidence of organ dysfunction secondary to likely left lower leg cellulitis and now with left knee septic arthritis - Source is likely left prosthetic joint infection. - Blood cultures positive: corynebacterium in BCxs - Repeat blood cultures-remain no growth to date - Wound culture from foot negative - arthrocentesis (left knee) with high WBC count but NG (taken after started on abx) - Urine culture: No growth - CXR: no acute pathology - X ray left foot- negative for osteo or gas, x-ray left hip with arthritis, x- ray of left knee with moderate to large effusion and valgus appearance of artificial knee Has since defervesced and has remained hemodynamically stable but her inflammatory markers, WBC count, and procalcitonin are uptrending (likely due to PJI)--> transfer to tertiary center for I&D and potential removal of hardware - Continue with Cefepime 2GM IV q8 and Daptomycin 6mg/kg daily IV for broad- spectrum coverage -Pharmacy has asked the microbiology lab to do sensitivities on the corynebacterium-pending -With bilateral TKAs (initial done in [place] by Dr. Larios) and evidence of left knee septic arthritis, orthopedics has recommended transfer to tertiary care facility for I&D and likely removal of hardware/explantation. patient has been accepted at [facility] under the care of Dr. Richmond. Did speak to orthopedic surgeon (Dr. Dhillon) (2) Septic arthritis: Left knee Initial TKA done by Dr. Larios ([place]) Status post arthrocentesis by orthopedics-synovial fluid with 26,000 WBCs with 97% polys Gram stain with many WBCs, no organisms Fluid culture pending but no growth to date Continue broad-spectrum antibiotics Arthrocentesis done after being on antibiotics X days thus likely skewed results Plan is for transfer to [facility] for explantation/removal of hardware and I&D. Given revision rods in place, cannot be done at our facilityneeds tertiary center Would need 6 weeks of IV antibiotics. Would be inclined to utilize blood cultures. That said, linezolid may be an appropriate option. There is concern that corny bacterium can cause a biofilm. Could consider oral rifampin X 3 weeks. Would recommend ID consult to help guide antibiotic regimen and length of treatment (3) Cellulitis: Continue treatment with antibiotics Erythema is definitely improving on the left lower extremity since admission Doppler Left lower extremity is negative for DVT (4) COVID-19: COVID 19 positive symptoms started 09/14 -Patient is vaccinated, boosted, and has a history of COVID diagnosed 07/08 - symptoms initially: Nasal congestion, intermittent headaches and overall body weakness. CXR no PNA, not hypoxic Doing well from this standpoint, very mild symptoms Of note, she also had COVID approximately 3 months ago but would have to consider this a recurrent infection -Has now completed a 5-day course of Remdesevir -Did not give dexamethasone given reported "allergy" -Maintain isolation precautions (5) Elevated LFTs: TB up to 1.5 with AST/ALT of 55/40 She has no abdominal pain or tenderness LFTs downtrendingcontinue to follow Likely COVID induced. Also on statin therapy. Hold statin therapy (especially in the setting of daptomycin). Would benefit from a drug holiday (6) Contact dermatitis: With localized rash at all sites of telemetry pads on chest Removed telemetry Treat with hydrocortisone locally Added adhesive to allergy list (7) Hypokalemia: Finally improving with replacement Is on chronic loop diuretics Continue potassium chloride 20 M EQ p.o. twice daily follow BMP and magnesium in AM (8) Asthma: Continue LAVINIA inhaler and PRN nebulizer no acute issues (9) Severe obstructive sleep apnea: CPAP 13 with 2L oxygen bled in continue - remains with elevated HCO3 likely component of obesity hypoventilation syndrome as well (10) CKD (chronic kidney disease) stage 3, GFR 30-59 ml/min: CKD IIIa [employer]LE[employer] is at baseline at 1.1 - continue to follow with volume resuscitation (11) Dyslipidemia: Currently holding statin therapy - history of CVA as well -takes dual antiplatelet therapy but will hold this given anticipated surgical need (12) Hypertension: continue bumex, amiloride (13) Chronic heart failure with preserved ejection fraction: As above- follow hemodynamics - restarted home bumex after receiving IVFs on admission for sepsis - Last ECHO 08/05 with EF 60-65% mild LVH normal valves and normal RVSP (14) Acid reflux: Continue pantoprazole 40 mg PO daily (15) Peripheral neuropathy: Continue gabapentin, nortriptyline (16) DJD (degenerative joint disease): With a history of bilateral TKAs (17) Lymphedema: Chronic - continue bumex, holding home metolazone due to significant electrolyte abnormalities on admission (18) Hypomagnesemia: Secondary to loss with diruetics and decrease intake as well as water loss from fever had muscle cramps which are now resolved mag repleted and now normal (19) Hypophosphatemia: Replaced on admission (20) Allergic rhinitis: Likely component of sinus congestion and lacrimation - she reports that she does get this every year - follow with COVID and influenza (21) Anxiety and depression: Continue Bupropion, Nortriptyline, Duloxetine, buspar (22) Left hip pain: X-ray shows arthritis Difficult examination Do not suspect septic joint in the hip DVT prophylaxis-Lovenox Dispo-continued stay on medical/surgical unit, remain on COVID precautions, awaiting transfer to [facility] hopefully on Wednesday if bed available Total Time Total Time Spent Total Time Spent (In Minutes): 90 minutes including time spent with patient, preparation of documentation, discussion with [facility] (discussion with hospitalist, and orthopedic surgeon) and coronation of care. Discharge Plan Discharge Items Patient Disposition: Transfer Acute Care Hospital Reason For Visit: SEPSIS Discharge Diagnosis: 1. Sepsis- resolved 2. Prosthetic Joint Infection- left knee 3. Covid-19-- asymptomatic Activity: As commented below Activity Comment: transfer to tertiary clinic Non-emergency contact: Primary Care Provider and Specialist Call non-emergency contact if: you have any medication questions and you have a fever Follow-up/Referrals: Etelvina Cazares DO [Primary Care Provider] - Diet: Low Sodium (2gm) Addtl Attending Provider Instructions: patient hospitalized with sepsis syndrome (tachycardia, fever, tachypnea) from cellulitis of the left leg. Found to have a prosthetic joint infection (arthrocentesis performed) and Bacteremia Seen by Orthopedics who is recommending an I&D (At the least) with likely explantation of revision rods (which is reason for transfer and unable to be performed here) transfer to [facility] under the care of Dr. Domenica Raza (accepting provider). Currently empirically on cefepime and daptomycin. Blood culture with Corynebacterium. Joint aspiration with no growth (but obtained after being on antibiotics X days). Advised infectious disease consult to help guide antibiotic coverage. Likely needs 6 weeks from washout. May consider rifampin; however, Corynebacterium is not a pathogen that typically causes a biofilm) Patient takes chronic Plavix/aspirin. Would hold these until after surgery Patient currently medically and HD stable Pending Studies at Discharge: No Stand-Alone Forms: My [facility] Skilled Items Patient informed of condition?: Yes DNR: No Discharge Level of Care: Other Communicable Disease: No Discharge Prognosis: Stable Lines: Peripheral IV Urinary Catheter: No Medications and DC Order Prescriptions: New enoxaparin [Lovenox] 40 mg/0.4 mL Syringe 40 mg subcut QAM Qty: 7 RF: 0 Continued cyanocobalamin (vitamin B-12) [Vitamin B-12] 1,000 mcg tablet 1,000 mcg PO DAILY Qty: 30 RF: 0 bupropion HCl 300 mg tablet extended release 24 hr 300 mg PO QAM Qty: 90 RF: 1 allopurinol 100 mg tablet 100 mg PO BID Qty: 180 RF: 1 duloxetine 30 mg capsule,delayed release(DR/EC) 30 mg PO QAM Qty: 90 RF: 1 pantoprazole 40 mg tablet,delayed release (DR/EC) 40 mg PO QAM Qty: 30 RF: 5 (DME) CPAP Supplies Misc See Rx Instructions .Route Qty: 1 RF: 0 albuterol sulfate [Ventolin HFA] 90 mcg/actuation HFA aerosol inhaler 2 puff INHALATION Q4H PRN (Reason: Shortness Of Breath Or Wheezing) Qty: 18 RF: 3 montelukast 10 mg tablet 10 mg PO PM Qty: 90 RF: 1 gabapentin 300 mg capsule 300 mg PO TID Qty: 270 RF: 1 albuterol sulfate 2.5 mg /3 mL (0.083 %) solution for nebulization 2.5 mg inhalation Q6H Qty: 180 RF: 1 famotidine 20 mg tablet 20 mg PO QAM Qty: 90 RF: 1 cholecalciferol (vitamin D3) [Vitamin D3] 50 mcg (2,000 unit) capsule 2,000 unit PO TID Qty: 270 RF: 1 multivitamin Tablet 1 tab PO QAM Qty: 90 RF: 1 calcium carbonate 300 mg (750 mg) tablet,chewable 900 mg PO DAILY PRN (Reason: dyspepsia) Qty: 270 RF: 0 nortriptyline 50 mg capsule 150 mg PO HS Qty: 270 RF: 1 buspirone 15 mg tablet 15 mg PO TID Qty: 270 RF: 1 metoclopramide HCl 5 mg tablet 5 mg PO QID PRN (Reason: acid reflux) Qty: 90 RF: 0 acetaminophen 500 mg tablet 1,000 mg PO Q4H PRN (Reason: fever or pain) Qty: 90 RF: 0 betamethasone dipropionate 0.05 % cream 1 applic topical BID PRN (Reason: skin irritation) Qty: 45 RF: 3 fluticasone propion-salmeterol [Advair Diskus] 250-50 mcg/dose blister with device 1 inh inhalation BID Qty: 1 RF: 11 bumetanide 2 mg tablet 4 mg PO BID Qty: 120 RF: 2 metolazone 5 mg tablet 5 mg PO DAILY PRN (Reason: weight gain, edema, dyspnea) Qty: 30 RF: 2 trazodone 50 mg tablet 50 mg PO HS Qty: 30 RF: 2 amiloride 5 mg tablet 5 mg PO DAILY Qty: 90 RF: 1 Discontinued clopidogrel [Plavix] 75 mg tablet 75 mg PO DAILY Qty: 90 RF: 1 atorvastatin 40 mg tablet 40 mg PO DAILY Qty: 90 RF: 1 aspirin 81 mg tablet,delayed release (DR/EC) 81 mg PO QAM Qty: 90 RF: 1 Discharge Orders: Discharge Order (Routine); Ordered 09/23/21 Ordered By: Candelaria Kim Admission Data Admit Date/Time: 09/16/21 14:10 Attending Provider: Naveed Dorantes Admit Provider: Fabian Garcia Primary Care Provider: Etelvina Cazares Other Providers: Sharron Betancourt ; Fabian Garcia ; Jevon Longoria Other Interventions: Discharge Summary Assessment (RN) Last Done: 09/23/21 09:57 Supervising Physician Co-Signing Physician Notes Patient seen and examined at bedside. Discussed discharge planning and obtained phsycial exam. I reviwed case with patient and ZOEY Kim. Answered all questions. I reviewed above note and agree with it. Patient will be discharged. Patient meri be transferred to tertiary care center for further treatment of prosthetic joint. will remain on antibiotics Coding Level of Care Code D/C DAY MANAGEMENT >30 MINS Diagnoses Sepsis A41.9 Septic arthritis M00.9 Elevated LFTs R79.89 Contact dermatitis L25.9 Cellulitis L03.90 COVID-19 U07.1 Hypokalemia E87.6 Asthma J45.909 Severe obstructive sleep apnea G47.33 CKD (chronic kidney disease) stage 3, GFR 30-59 ml/min N18.32 Chronic kidney disease stage 3 subtype: stage 3b (GFR 30-44) Dyslipidemia E78.5 Hypertension I10 Chronic heart failure with preserved ejection fraction I50.32 Acid reflux K21.9 Peripheral neuropathy G62.9 DJD (degenerative joint disease) M19.90 Lymphedema I89.0 Hypomagnesemia E83.42 Hypophosphatemia E83.39 Allergic rhinitis J30.9 Anxiety and depression F41.9; F32.A Left hip pain M25.552
[2021-09-22] MEDS: NORTRIPTYLINE HCL 25 MG CAP PO SCH (20:26)
[2021-09-22] MEDS: MONTELUKAST SODIUM 10 MG TABLET PO SCH (20:26)
[2021-09-23] MEDS: oxyCODONE HCL IR 5 MG TAB (IMMEDIATE RELEASE) PO PRN ×3 (03:33→12:36)
[2021-09-23] MEDS: HYDROmorphone INJ 0.5 MG/0.5 ML SYR IV PRN (04:29)
[2021-09-23] MEDS: CEFEPIME 2,000 MG in SYRINGE 0 ML IV SCH ×2 (04:31→12:36)
[2021-09-23] MEDS: POLYETHYLENE (MIRALAX) 17 GM PACK PO PRN (08:05)
[2021-09-23] MEDS: ENOXAPARIN INJ 40 MG/0.4 ML SYR SQ SCH (08:05)
[2021-09-23] MEDS: PANTOprazole 40 MG TAB PO SCH (08:07)
[2021-09-23] MEDS: MULTIVITAMIN TAB PO SCH (08:07)
[2021-09-23] MEDS: ATORVASTATIN 40 MG TAB PO SCH (08:08)
[2021-09-23] MEDS: FAMOTIDINE 20 MG TAB PO SCH (08:08)
[2021-09-23] MEDS: buPROPion XL 300 MG TABCR PO SCH (08:08)
[2021-09-23] MEDS: CYANOCOBALAMIN (B-12) 500 MCG TABLET PO SCH (08:08)
[2021-09-23] MEDS: aMILoride HCL 5 MG TAB PO SCH (08:08)
[2021-09-23] MEDS: DULoxetine HCL 30 MG CAP PO SCH (08:08)
[2021-09-23] MEDS: allopurinoL 100 MG TAB PO SCH (08:08)
[2021-09-23] MEDS: busPIRone 15 MG TAB PO SCH (08:09)
[2021-09-23] MEDS: FLUTICASONE/VILANTEROL 200/25MCG 14 PUFFS/INHALER INH SCH (08:09)
[2021-09-23] MEDS: GABAPENTIN 300 MG CAP PO SCH (08:09)
[2021-09-23] MEDS: MICONAZOLE NITRATE POWDER 43 GM EXT SCH (08:09)
[2021-09-23] MEDS: POTASSIUM CHLORIDE CRTAB 20 MEQ TABCR PO SCH (08:10)
[2021-09-23] MEDS: HYDROCORTISONE 1% OINT 30 GM TUBE EXT SCH (08:53)
[2021-09-23] MEDS ORDERED: HYDROmorphone INJ 1 MG/ML SYRINGE IV ONE (09:04)
[2021-09-23] MEDS ORDERED: COUGH DROP (SUGAR FREE) LOZ 24 LOZ/1 BOX BUCCAL STA (11:00)
--- NOTE | 2021-09-23 13:28 | Hospitalist Progress Note ---
Date of Service September 22, 2021 Assessment & Plan (1) Sepsis: Plan: Initially with tachycardia, tachypnea and fever sepsis without shock and no further evidence of organ dysfunction secondary to likely left lower leg cellulitis and now with left knee septic arthritis - Source is likely left prosthetic joint infection. 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 Larios) and evidence of left knee septic arthritis, orthopedics has recommended transfer to tertiary care facility for I&D and likely removal of hardware/explantation. patient has been accepted at [facility] under the care of Dr. Richmond. Did speak to orthopedic surgeon (Dr. Dhillon) (2) Septic arthritis: Plan: Left knee Initial TKA done by Dr. Larios ([place]) Status post arthrocentesis by orthopedics-synovial fluid with 26,000 WBCs with 97% polys Gram stain with many WBCs, no organisms Fluid culture pending but no growth to date Continue broad-spectrum antibiotics Arthrocentesis done after being on antibiotics X days thus likely skewed results Plan is for transfer to [facility] for explantation/removal of hardware and I&D. Given revision rods in place, cannot be done at our facilityneeds tertiary center Would need 6 weeks of IV antibiotics. Would be inclined to utilize blood cultures. That said, linezolid may be an appropriate option. There is concern that corny bacterium can cause a biofilm. Could consider oral rifampin X 3 weeks. Would recommend ID consult to help guide antibiotic regimen and length of treatment (3) Cellulitis: Plan: Continue treatment with antibiotics Erythema is definitely improving on the left lower extremity since admission Doppler Left lower extremity is negative for DVT (4) COVID-19: Plan: COVID 19 positive symptoms started 09/14 -Patient is vaccinated, boosted, and has a history of COVID diagnosed 07/08 - symptoms initially: Nasal congestion, intermittent headaches and overall body weakness. CXR no PNA, not hypoxic Doing well from this standpoint, very mild symptoms Of note, she also had COVID approximately 3 months ago but would have to consider this a recurrent infection -Has now completed a 5-day course of Remdesevir -Did not give dexamethasone given reported "allergy" -Maintain isolation precautions (5) Elevated LFTs: Plan: TB up to 1.5 with AST/ALT of 55/40 She has no abdominal pain or tenderness LFTs downtrendingcontinue to follow Likely COVID induced. Also on statin therapy. Hold statin therapy (especially in the setting of daptomycin). Would benefit from a drug holiday (6) Contact dermatitis: Plan: With localized rash at all sites of telemetry pads on chest Removed telemetry Treat with hydrocortisone locally Added adhesive to allergy list (7) Hypokalemia: Plan: Finally improving with replacement Is on chronic loop diuretics Continue potassium chloride 20 M EQ p.o. 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.1 - continue to follow with volume resuscitation (11) Dyslipidemia: Plan: Currently holding statin therapy - history of CVA as well -takes dual antiplatelet therapy but will hold this given anticipated surgical need (12) Hypertension: Plan: continue bumex, amiloride (13) Chronic heart failure with preserved ejection fraction: Plan: As above- follow hemodynamics - restarted home bumex after receiving IVFs on admission for sepsis - Last ECHO 08/05 with EF 60-65% mild LVH normal valves and normal RVSP (14) Acid reflux: Plan: Continue pantoprazole 40 mg PO daily (15) Peripheral neuropathy: Plan: Continue gabapentin, nortriptyline (16) DJD (degenerative joint disease): 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 (17) Lymphedema: Plan: Chronic - continue bumex, holding home metolazone due to significant electrolyte abnormalities on admission (18) Hypomagnesemia: Plan: Secondary to loss with diruetics and decrease intake as well as water loss from fever had muscle cramps which are now resolved mag repleted and now normal (19) Hypophosphatemia: Plan: Replaced on admission (20) Allergic rhinitis: Plan: Likely component of sinus congestion and lacrimation - she reports that she does get this every year - follow with COVID and influenza (21) Anxiety and depression: Plan: Continue Bupropion, Nortriptyline, Duloxetine, buspar (22) Left hip pain: Plan: X-ray shows arthritis Difficult examination Do not suspect septic joint in the hip Plan: DVT prophylaxis-Lovenox Dispo-continued stay on medical/surgical unit, remain on COVID precautions, awaiting transfer to [facility] hopefully on Wednesday if bed available Admission and Anticipated Discharge Date Admission Date: September 16, 2021 Subjective Patient seen on daily rounds today. Awaiting transportation to [facility] for washout of left knee with potential explantation/removal of hardware given prosthetic joint infection. Is having pain and requiring IV Dilaudid. Otherwise, afebrile. Denies fevers, chills, chest pain, shortness of breath, abdominal pain, nausea or vomiting. Review of Systems Review of Systems: All systems reviewed and are unremarkable except as noted in HPI and below Denies fevers, chills, headache, nasal congestion, sore throat, cough, chest pain, shortness of breath, palpitations, orthopnea, PND, abdominal pain, nausea, vomiting, diarrhea, constipation, dysuria, hematuria, frequency, back pain, easy bruising or bleeding, skin lesions or rashes. Physical Exam Physical Exam: General: Resting comfortably in her hospital bed. She does not appear ill or toxic. NAD. HEENT: Head is AT/NC. Buccal mucosa is moist and pink Neck: No JVD. Negative hepatojugular reflex Cardiac: RRR but very distant heart soundslikely due to habitus Lungs: Breathing comfortably on ambient air. No accessory muscle use. Diminished breath sounds throughout (likely due to habitus) without wheezes, rales or rhonchi Abdomen: Normoactive X4. Soft and nontender in all quadrants. Extremities: Bilateral lower extremities extremely large (from adiposity/habitus). Old incisions over bilateral knees. Left knee is not erythematous but is edematous. Vascular changes to the bilateral lower extremities Neuro: A&O X4. Cranial nerves II through XII are grossly intact. No focal neuro deficits Skin: See above Psych: Appropriate affect. Pleasant and cooperative Results & Data Results & Data ([facility]) Vital Signs (Past 12 Hours) Vital Signs Temp Pulse Pulse Resp BP BP Pulse Ox 09/23/21 09:57 36.9 C 84 18 174/75 H 122/63 93 09/23/21 09:55 36.9 C 84 18 174/75 H 122/63 93 09/23/21 08:02 36.9 C 84 18 122/63 93 09/23/21 03:10 86 16 93 PG Care Time/CCT Total # of Minutes Spent Total Time Spent with Patient: Total time spent is greater than 50% in coordination of care (as documented) at patient's floor/unit and/or counseling patient: Prolonged Care Time 90 min including calling [facility] 3X and speaking with multiple providers including the hospitalist, orthopedic surgeon (twice), discussion with case management and attending provider. Coding Level of Care Code 52119 Subseq Hosp Care Lvl 2 Diagnoses Sepsis A41.9 Septic arthritis M00.9 Cellulitis L03.90 COVID-19 U07.1 Elevated LFTs R79.89 Contact dermatitis L25.9 Hypokalemia E87.6 Asthma J45.909 Severe obstructive sleep apnea G47.33 CKD (chronic kidney disease) stage 3, GFR 30-59 ml/min N18.32 Chronic kidney disease stage 3 subtype: stage 3b (GFR 30-44) Dyslipidemia E78.5 Hypertension I10 Chronic heart failure with preserved ejection fraction I50.32 Acid reflux K21.9 Peripheral neuropathy G62.9 DJD (degenerative joint disease) M19.90 Lymphedema I89.0 Hypomagnesemia E83.42 Hypophosphatemia E83.39 Allergic rhinitis J30.9 Anxiety and depression F41.9; F32.A Left hip pain M25.552 (1) CKD (chronic kidney disease) stage 3, GFR 30-59 ml/min Chronic kidney disease stage 3 subtype: stage 3b (GFR 30-44) Qualified Code(s): N18.32 - Chronic kidney disease, stage 3b
== END 2021-09-23 13:48 | disposition short-term general hospital (02) | DRG 559 ==
LOC: ED 11:11 → 2W 14:10 → SUATTDRO 14:10 → 2W 17:56
DX: E83.39 Other disorders of phosphorus metabolism; R09.81 Nasal congestion; M00.9 Pyogenic arthritis, unspecified; Z79.82 Long term (current) use of aspirin; N18.31 Chronic kidney disease, stage 3a; R53.1 Weakness; E87.6 Hypokalemia; R17 Unspecified jaundice; E78.5 Hyperlipidemia, unspecified; K21.9 Gastro-esophageal reflux disease without esophagitis; Z83.3 Family history of diabetes mellitus; Y92.009 Unspecified place in unspecified non-institutional (private) residence as the place of occurrence of the external cause; J44.0 Chronic obstructive pulmonary disease with (acute) lower respiratory infection; I13.0 Hypertensive heart and chronic kidney disease with heart failure and stage 1 through stage 4 chronic kidney disease, or unspecified chronic kidney disease; F41.8 Other specified anxiety disorders; Z88.5 Allergy status to narcotic agent; Y79.2 Prosthetic and other implants, materials and accessory orthopedic devices associated with adverse incidents; L25.9 Unspecified contact dermatitis, unspecified cause; I50.32 Chronic diastolic (congestive) heart failure; T50.2X5A Adverse effect of carbonic-anhydrase inhibitors, benzothiadiazides and other diuretics, initial encounter; U07.1 COVID-19; E83.42 Hypomagnesemia; T84.54XA Infection and inflammatory reaction due to internal left knee prosthesis, initial encounter; L02.416 Cutaneous abscess of left lower limb; Z88.0 Allergy status to penicillin; G62.9 Polyneuropathy, unspecified; E66.2 Morbid (severe) obesity with alveolar hypoventilation; D50.9 Iron deficiency anemia, unspecified; J45.909 Unspecified asthma, uncomplicated; B96.89 Other specified bacterial agents as the cause of diseases classified elsewhere; Z96.653 Presence of artificial knee joint, bilateral; Q60.0 Renal agenesis, unilateral; Z68.44 Body mass index [BMI] 60.0-69.9, adult; L03.116 Cellulitis of left lower limb; A41.9 Sepsis, unspecified organism; L97.529 Non-pressure chronic ulcer of other part of left foot with unspecified severity

== ENCOUNTER 2023-01-15 11:46 | Observation (INO) ==
--- NOTE | 2023-01-15 12:35 | XRay Report ---
XR chest 1V not portable CLINICAL HISTORY: fluid overload TECHNIQUE: Single frontal radiograph of the chest was obtained. Comparison: Comparison is made to chest radiograph 09/16/2021 FINDINGS: Right shoulder arthroplasty is seen. The cardiomediastinal silhouette is normal. The lungs are clear. No evidence of pleural effusion or pneumothorax. IMPRESSION: No acute chest disease. ACT 112: Negative or not required by law. Electronically signed by: Christian Duran M.D. 01/15/2023 12:34 PM
[2023-01-15 12:55] LABS: Basophils # (auto) 0.04 K/uL (0.00-0.20); Basophils % (auto) 0.5 %; Eosinophils # (auto) 0.69 K/uL (0.00-0.50); Eosinophils % (auto) 8.4 %; Hematocrit (blood only) 38.3 % (37.0-47.0); Hemoglobin 11.8 g/dl (12.0-16.0); Immature Granulocytes # (auto) 0.01 K/uL (0.01-0.20); Immature Granulocytes % (auto) 0.1 %; Lymphocytes # (auto) 1.93 K/uL (1.20-3.40); Lymphocytes % (auto) 23.6 %; Mean Corpuscular Hemoglobin 25.8 pg (25.0-34.0); Mean Corpuscular Hgb Conc 30.8 g/dL (32.0-36.0); Mean Corpuscular Volume 83.6 fL (80.0-100.0); Mean Platelet Volume 10.1 fL (9.4-12.4); Monocytes # (auto) 0.57 K/uL (0.11-0.59); Neutrophils # (auto) 4.94 K/uL (1.40-6.50); Neutrophils % (auto) 60.4 %; Platelet Count 295 K/uL (130-400); RDW Coefficient of Variation 16.1 % (11.5-14.5); RDW Standard Deviation 49.2 fL (36.4-46.3); Red Blood Count 4.58 M/uL (4.20-5.40); White Blood Count 8.18 K/ul (4.8-10.8)
[2023-01-15 13:04] LABS: Prothrombin Time 10.9 Seconds (9.0-12.0)
[2023-01-15 13:23] LABS: Albumin Globulin Ratio 1.3 (0.9-2); Albumin Level 3.8 gm/dl (3.4-5.0); BUN Creatinine Ratio 11.9 (10-20); Bilirubin,Total 0.4 mg/dl (0.2-1.0); Calcium 8.9 mg/dl (8.6-10.3); Creatinine Clr Calc Pharmacy 79.7 ml/min; Est GFR (African American) 49.8 ml/min; Globulin 2.9 gm/dl (2.5-4.0); Potassium 4.1 mmol/L (3.5-5.1); Total Protein 6.7 gm/dl (6.0-8.3)
[2023-01-15 13:27] LABS: Troponin I High Sensitivity 4.5 pg/ml (0-14)
[2023-01-15] MEDS ORDERED: FUROSEMIDE 40 MG/4 ML VIAL IV ONE (13:50)
--- NOTE | 2023-01-15 14:15 | Ultrasound Report ---
ULTRASOUND LEFT LOWER EXTREMITY VENOUS CLINICAL HISTORY: Left leg swelling. COMPARISON STUDY: Left lower extremity venous ultrasound dated 10/14/2021. TECHNIQUE: Real-time, grayscale, and color Doppler sonography of the deep veins of the left lower ext remity was performed from the inguinal crease to the calf. Compression and augmentation were utilized . The examination is degraded by large body habitus. FINDINGS: There is no sonographic evidence of deep venous thrombosis identified in the left lower ext remity. The common femoral, superficial femoral, and popliteal veins are patent and normally compress ible. The greater saphenous vein and the profunda femoris vein at the junction with the common femora l vein are clear. The visualized calf veins are patent. Soft tissue edema is noted in the calf. IMPRESSION: There is no sonographic evidence of deep venous thrombosis identified in the left lower e xtremity. ACT 112: Negative or not required by law. Electronically signed by: Will Hussein M.D. 01/15/2023 2:13 PM
[2023-01-15] MEDS ORDERED: IOVERSOL 350 MG 125mL Prefilled Syringe IV ONE (14:33)
--- NOTE | 2023-01-15 14:56 | CT Scan Report ---
CT OF THE ABDOMEN AND PELVIS WITH CONTRAST CLINICAL HISTORY: increased weight, ? ascites, recent L ALLA, obese COMPARISON STUDY: CT of the abdomen and pelvis April 28, 2022. TECHNIQUE: Following IV administration of 60 mL of Optiray, axial images of the abdomen and pelvis we re obtained from the lung bases to the proximal femurs. Images were reviewed in the axial, sagittal, and coronal planes. IV contrast was administered without complication. Automated exposure control wa s utilized for the study. A dose lowering technique was utilized adhering to the principles of ALARA . CT DOSE: 1891.76 mGy.cm FINDINGS: Lung bases are unremarkable. No pneumatosis, free air or portal venous gas is present. Ther e is no biliary ductal dilatation status post cholecystectomy. No hepatic lesions are present. Spleen , adrenal glands and pancreas are unremarkable. There is no peripancreatic infiltration. Marked right renal atrophy is unchanged. There is mild right collecting system dilatation. Scarring within the le ft kidney is noted. Numerous bilateral renal calculi measure up to 7 mm. There are no ureteral calcul i. Bales balloon within the bladder is present. There is no evidence for a bowel obstruction. The george iber and wall thickness of small and large bowel are normal. A low-attenuation 7.5 x 4.3 cm left adne xal lesion remains unchanged since prior CT and ultrasound. No ascites is present. No fluid collectio n is identified within the abdomen or pelvis. Anterior abdominal wall skin thickening and subcutaneou s stranding is partially imaged. No fluid collection is identified. IMPRESSION: 1. No bowel obstruction. No bowel wall thickening. No ascites. 2. Bilateral nephrolithiasis. Mild right collecting system dilatation. No ureteral calculi. Right angelo al atrophy. 3. Subcutaneous stranding and skin thickening of the lower anterior abdominal wall, partially imaged. This could reflect cellulitis or edema. No fluid collection identified. 4. No change in an indeterminate 7.5 x 4.3 cm left ovarian cystic lesion. ACT 112: Negative or not required by law. Electronically signed by: Biju Vergara M.D. 01/15/2023 2:54 PM
--- NOTE | 2023-01-15 15:12 | Emergency Department Note ---
Impression & Plan Abdominal wall cellulitis, Venous stasis dermatitis, Cellulitis of left leg ED Provider Note CHIEF COMPLAINT: Increased weight, abdominal discomfort, left lower extremity swelling and redness HISTORY OF PRESENT ILLNESS: This 62-year-old patient past medical history of morbid obesity, recent left TKA, CHF, venous stasis, dyslipidemia, hypertension, prediabetes, chronic kidney disease and lymphedema presents to the emergency department with complaints of discomfort in the left lower extremity, redness and warmth. She did see her primary care provider prior to arrival who acknowledged weight gain over the last several weeks. Patient is complaining of abdominal swelling and swelling in the left leg. She does not think the right leg is swollen. Patient denies any history of liver disease or alcohol abuse. She has been taking her medications as prescribed. She has recently been on Bumex and states initially her urine output was good but seems to have slowed down since starting medication REVIEW OF SYSTEMS: A review of systems was performed with positives and pertinent negatives listed in the history of present illness. 10 systems were reviewed and are otherwise negative. ALLERGIES: see below MEDICATIONS: see below PMH: see below SOCIAL HISTORY: see below DDx: DVT, CHF, abdominal ascites, venous stasis, cellulitis among others PHYSICAL EXAM: Vital signs reviewed. General: Chronically ill-appearing 62-year-old female, in no significant distress. HEENT: No scleral icterus, PERRLA, neck supple. Atraumatic. Cardiovascular: Regular rate and rhythm, no extra sounds. Pulmonary: Clear to auscultation bilaterally, normal work of breathing. Abdomen: Soft, limited by body habitus. No tympany to percussion. Large abdominal pannus with erythematous change, please see below Musculoskeletal: Atraumatic, no peripheral edema. Neurologic: Patient awake alert and oriented x 3, speech is clear Skin: Warm,Large erythematous rash across the lower abdomen/pannus. No evidence of abscess or open skin. Venous stasis changes in the bilateral lower extremities with more significant erythematous change to the left lower extremity. Positive warmth. EMERGENCY DEPARTMENT COURSE/MDM: This patient was evaluated and appeared to be in no significant distress. External medical records were reviewed. IV access was obtained and laboratory work was drawn. The patient was placed on the vehicle monitor technician noted to be in a normal sinus rhythm. Patient was hydrated with normal saline solution. Physical examination is concerning for cellulitis of the left lower extremity superimposed on venous stasis changes. The abdominal pannus is inflamed and red without obvious source of open skin/drainage. CT imaging of the abdomen pelvis was performed and reveals no fluid collection. Patient was medicated with 2 g of IV ceftriaxone after discussion with the clinical pharmacist. I did discuss the case with Dr. Shaw of the hospitalist service who agreed to evaluate the patient for admission and further management. Patient was made aware of the plan and agreed. MONITORING: An order for cardiac monitoring was placed and the patient is noted to be in a normal sinus rhythm at 81 beats per minute. RADIOLOGY: CT imaging of the abdomen pelvis per radiology below. Large erythematous rash across the lower abdomen/pannus. EKG: To my interpretation reveals a normal sinus rhythm at 76 bpm. Previous inferior infarct, anterior septal infarct with Q waves noted. Possible LVH. QTc is 445. When compared to previous dated September 16, 2021, incomplete right bundle branch block is no longer present but an inferior infarct is now present. DISPOSITION: Admission Past Med/Surg History Medical History Acid reflux Acute urinary retention Allergic rhinitis Ambulatory dysfunction Anemia Arthritis Asthma Cellulitis and abscess of left leg Chronic back pain Chronic cutaneous venous stasis ulcer Chronic heart failure with preserved ejection fraction CKD (chronic kidney disease) stage 3, GFR 30-59 ml/min Congenital kidney disease Conjunctivitis Degenerative joint disease, shoulder, right Dependent lymphedema Depression with anxiety Dyslipidemia Fall as cause of accidental injury at home as place of occurrence Fatty liver Gout History of COVID-19 History of CVA (cerebrovascular accident) History of revision of total replacement of left knee joint Hyperlipidemia Hypertension Hypertension Hypokalemia Iron deficiency anemia Lumbar spinal stenosis Lymphedema MDD (major depressive disorder), recurrent episode, moderate Morbid obesity with BMI of 50.0-59.9, adult MRSA (methicillin resistant staph aureus) culture positive ANDRZEJ (obstructive sleep apnea) Other ovarian cyst, left side Peripheral neuropathy Port-A-Cath in place Prediabetes Recurrent cellulitis of lower leg Sepsis Septic arthritis Sleep apnea Stage 3b chronic kidney disease TIA (transient ischemic attack) Venous stasis of both lower extremities Viral URI Surgical History H/O knee surgery (12/2021) H/O ventral hernia repair History of appendectomy History of bilateral knee replacement (10/16/22) History of carpal tunnel release History of cholecystectomy S/P tonsillectomy and adenoidectomy Status post total shoulder arthroplasty (10/17/18) Family History Mother Diabetes Coronary heart disease Myocardial infarction S/P CABG x 3 Hypertension Gallbladder disease Sister Hodgkins lymphoma Brother Kidney disease Grandmother Breast cancer Aunt Ovarian cancer Father Peripheral vascular disease Daughter Diabetes Other Cancer No family history of adverse response to anesthesia Denies family history of Prostate cancer Colorectal cancer Social History Smoking Status: Former smoker Age Started Using Tobacco: 22; Age Quit Using Tobacco: 24; Second Hand Exposure: No; Do You Dip or Chew Tobacco: No; Hx Alcohol Use: No Hx Substance Use: No Preferred Language: [place] 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 Ability: Effective Visual Impairment: Limited Hearing Ability: Normal 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: No Beliefs That Will Affect Care: None marital status: marital status details: ; lives with parents & 1 daughter Current Living Situation: Family Current Living Situation Comment: daughter and mom current occupational status: disabled other: 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 [employer]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; 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 Feels Safe at Home: Yes Childhood Exposure to Second-Hand Smoke: No Diet: regular Diet Comment: regular caffeine: No Dental Care, Regularly: No Physical Activity Frequency: Does not Exercise Seatbelt Use: always Sunscreen Use: Yes Assistive Devices: CPAP, Denture - Upper, Glasses, Nebulizer and Walker Allergies Allergies Allergy/AdvReac Type Severity Reaction Status Date / Time Corticosteroids Allergy Intermediate RASH Verified 01/15/23 15:23 (Glucocorticoids) morphine Allergy Intermediate MOUTH Verified 01/15/23 15:23 SWELLS/FACE SWELLS orange Allergy Intermediate HIVES Verified 01/15/23 15:23 Penicillins Allergy Intermediate RASH/HIVES Verified 01/15/23 15:23 prednisone Allergy Intermediate RED RASH Verified 01/15/23 15:23 adhesive Allergy Mild Skin rash Verified 01/15/23 15:23 localized zolpidem Allergy Unknown UNSURE Verified 01/15/23 15:23 pregabalin AdvReac Intermediate GOOFY Verified 09/01/23 15:23 Home Meds Home Medications Medication Instructions Recorded Confirmed albuterol sulfate 2.5 mg/3 mL 2.5 mg inhalation Q6H PRN 10/14/21 01/15/23 (0.083 %) solution for nebulization Shortness Of Breath calcium carbonate 300 mg (750 mg) 900 mg PO QAM 03/03/22 01/15/23 chewable tablet (Tums) cyanocobalamin (vitamin B-12) 1,000 mcg PO QAM 03/03/22 01/15/23 1,000 mcg tablet (Vitamin B-12) famotidine 20 mg tablet 20 mg PO HS 10/05/22 01/15/23 metoclopramide HCl 5 mg tablet 5 mg PO DAILY 11/02/22 01/15/23 doxycycline monohydrate 100 mg 100 mg PO BID 01/15/23 01/15/23 capsule Previous Rx's Medication Instructions Recorded albuterol sulfate 90 mcg/actuation 2 puff inhalation Q4H PRN 05/21/21 aerosol inhaler (Ventolin HFA) Shortness Of Breath Or Wheezing #18 grams fluticasone 250 mcg-salmeterol 50 1 inh inhalation BID #1 inhaler 06/25/21 mcg/dose blistr powdr for inhalation (Advair Diskus) cholecalciferol (vitamin D3) 50 2,000 unit PO TID #270 caps 07/18/21 mcg (2,000 unit) capsule (Vitamin D3) multivitamin 1 tab PO QAM #90 tabs 07/18/21 acetaminophen 500 mg tablet 1,000 mg PO Q4H PRN fever or pain 09/16/21 #90 tabs duloxetine 60 mg capsule,delayed 60 mg PO QAM #90 caps 05/01/22 release spironolactone 25 mg tablet 25 mg PO BID #60 tabs 06/09/22 cetirizine 10 mg tablet (Zyrtec) 10 mg PO DAILY #90 tabs 07/03/22 montelukast 10 mg tablet 10 mg PO QPM #90 tabs 10/16/22 bupropion HCl 300 mg 24 hr tablet, 300 mg PO QAM #90 tabs 10/23/22 extended release Klor-Con M20 20 mEq 40 meq PO BID #120 tabs 10/28/22 tablet,extended release (potassium chloride) bumetanide 1 mg tablet 1 mg PO BID #60 tabs 10/29/22 pantoprazole 40 mg tablet,delayed 40 mg PO BID #180 tabs 11/19/22 release buspirone 15 mg tablet 15 mg PO TID #270 tabs 11/20/22 allopurinol 100 mg tablet 100 mg PO BID #180 tabs 12/14/22 gabapentin 300 mg capsule 300 mg PO TID #270 caps 12/14/22 hydralazine 50 mg tablet 50 mg PO BID #60 tabs 12/28/22 cephalexin 500 mg capsule 500 mg PO BID 5 days #10 caps 01/17/23 Results & Data (ED) Vital Signs Vital Signs - 24 hr 01/15/23 11:50 01/15/23 12:38 01/15/23 12:58 Temperature 36.2 C L Temperature Source Temporal Artery Scan Pulse Rate 81 75 Pulse Rate [Left Finger] 77 Pulse Rhythm Regular Pulse Strength Normal Respiratory Rate 18 17 Respiratory Effort / Characteristics Non-Labored Spontaneous Respiratory Depth Normal Normal Blood Pressure 152/82 H Blood Pressure [Left Arm] 169/84 H Blood Pressure Mean 105 Blood Pressure Mean [Left Arm] 112 Blood Pressure Position Sitting Pulse Oximetry 98 97 Oxygen Delivery Method Room Air Room Air Sepsis Recent Fever Within 48 Hours No Sepsis New/Unexplained Change in Mental Status No Sepsis Action Taken by Nursing No Action Required 01/15/23 14:20 01/15/23 16:51 Temperature Temperature Source Pulse Rate 75 Pulse Rate [Left Finger] 82 Pulse Rhythm Pulse Strength Respiratory Rate 20 Respiratory Effort / Characteristics Non-Labored Respiratory Depth Normal Blood Pressure Blood Pressure [Left Arm] 172/82 H Blood Pressure Mean Blood Pressure Mean [Left Arm] 112 Blood Pressure Position Pulse Oximetry 98 Oxygen Delivery Method Room Air Sepsis Recent Fever Within 48 Hours Sepsis New/Unexplained Change in Mental Status Sepsis Action Taken by [facility] Medications Current Medication List: was personally reviewed by me Laboratory Data Attestation: I reviewed the patient's lab results. 01/15/23 12:19 01/15/23 12:19 Lab Results 01/15/23 01/15/23 01/15/23 Range/Units 12:19 12:19 12:19 WBC 8.18 (4.8-10.8) K/ul RBC 4.58 (4.20-5.40) M/uL Hgb 11.8 L (12.0-16.0) g/dl Hct 38.3 (37.0-47.0) % MCV 83.6 (80.0-100.0) fL MCH 25.8 (25.0-34.0) pg MCHC 30.8 L (32.0-36.0) g/dL RDW Std Deviation 49.2 H (36.4-46.3) fL RDW Coeff of Cleo 16.1 H (11.5-14.5) % Plt Count 295 (130-400) K/uL MPV 10.1 (9.4-12.4) fL Immature Gran % (Auto) 0.1 % Neut % (Auto) 60.4 % Lymph % (Auto) 23.6 % [place] % (Auto) 7.0 % Eos % (Auto) 8.4 % Baso % (Auto) 0.5 % Neut # (Auto) 4.94 (1.40-6.50) K/uL Lymph # (Auto) 1.93 (1.20-3.40) K/uL [place] # (Auto) 0.57 (0.11-0.59) K/uL Eos # (Auto) 0.69 H (0.00-0.50) K/uL Baso # (Auto) 0.04 (0.00-0.20) K/uL Immature Gran # (Auto) 0.01 (0.01-0.20) K/uL PT 10.9 (9.0-12.0) Seconds INR 1.0 (0.9-1.1) APTT 29.0 (21.0-31.0) Seconds PTT Ratio 1.0 Sodium 141 (136-145) mmol/L Potassium 4.1 (3.5-5.1) mmol/L Chloride 103 (98-107) mmol/L Carbon Dioxide 32 (21-32) mmol/L Anion Gap 6 (3-11) BUN 16 (6-23) mg/dl Creatinine 1.34 H (0.6-1.2) mg/dl Est Cr Clr Drug Dosing 79.7 ml/min Est GFR ( Amer) 49.8 ml/min Est GFR (Non-Af Amer) 43.0 ml/min BUN/Creatinine Ratio 11.9 (10-20) Glucose 119 H (70-99(Fasting)) mg/dl Calcium 8.9 (8.6-10.3) mg/dl Total Bilirubin 0.4 (0.2-1.0) mg/dl AST 19 (13-39) U/L ALT 16 (7-52) U/L Alkaline Phosphatase 77 (34-104) U/L Troponin I High Sens 4.5 (0-14) pg/ml B-Natriuretic Peptide (0-100) pg/ml Total Protein 6.7 (6.0-8.3) gm/dl Albumin 3.8 (3.4-5.0) gm/dl Globulin 2.9 (2.5-4.0) gm/dl Albumin/Globulin Ratio 1.3 (0.9-2) Urine Color Urine Appearance (Clear) Urine pH (4.5-7.5) Ur Specific [place] (1.000-1.030) Urine Protein (Negative) Urine Glucose (UA) (Negative) Urine Ketones (Negative) Urine Blood (Negative) Urine Nitrite (Negative) Urine Bilirubin (Negative) Urine Urobilinogen (Negative) Ur Leukocyte Esterase (Negative) 01/15/23 01/15/23 Range/Units 12:19 15:20 WBC (4.8-10.8) K/ul RBC (4.20-5.40) M/uL Hgb (12.0-16.0) g/dl Hct (37.0-47.0) % MCV (80.0-100.0) fL MCH (25.0-34.0) pg MCHC (32.0-36.0) g/dL RDW Std Deviation (36.4-46.3) fL RDW Coeff of Cleo (11.5-14.5) % Plt Count (130-400) K/uL MPV (9.4-12.4) fL Immature Gran % (Auto) % Neut % (Auto) % Lymph % (Auto) % [place] % (Auto) % Eos % (Auto) % Baso % (Auto) % Neut # (Auto) (1.40-6.50) K/uL Lymph # (Auto) (1.20-3.40) K/uL [place] # (Auto) (0.11-0.59) K/uL Eos # (Auto) (0.00-0.50) K/uL Baso # (Auto) (0.00-0.20) K/uL Immature Gran # (Auto) (0.01-0.20) K/uL PT (9.0-12.0) Seconds INR (0.9-1.1) APTT (21.0-31.0) Seconds PTT Ratio Sodium (136-145) mmol/L Potassium (3.5-5.1) mmol/L Chloride (98-107) mmol/L Carbon Dioxide (21-32) mmol/L Anion Gap (3-11) BUN (6-23) mg/dl Creatinine (0.6-1.2) mg/dl Est Cr Clr Drug Dosing ml/min Est GFR ( Amer) ml/min Est GFR (Non-Af Amer) ml/min BUN/Creatinine Ratio (10-20) Glucose (70-99(Fasting)) mg/dl Calcium (8.6-10.3) mg/dl Total Bilirubin (0.2-1.0) mg/dl AST (13-39) U/L ALT (7-52) U/L Alkaline Phosphatase (34-104) U/L Troponin I High Sens (0-14) pg/ml B-Natriuretic Peptide 17 (0-100) pg/ml Total Protein (6.0-8.3) gm/dl Albumin (3.4-5.0) gm/dl Globulin (2.5-4.0) gm/dl Albumin/Globulin Ratio (0.9-2) Urine Color Yellow Urine Appearance Clear (Clear) Urine pH 6.5 (4.5-7.5) Ur Specific [place] 1.007 (1.000-1.030) Urine Protein Negative (Negative) Urine Glucose (UA) Negative (Negative) Urine Ketones Negative (Negative) Urine Blood Negative (Negative) Urine Nitrite Negative (Negative) Urine Bilirubin Negative (Negative) Urine Urobilinogen Negative (Negative) Ur Leukocyte Esterase Negative (Negative) Administered Medications Discontinued Medications Acetaminophen (Acetaminophen 325 Mg Tab) 650 mg PO Q6H PRN PRN Reason: pain Stop: 02/14/23 19:14 Last Admin: 01/17/23 08:17 Dose: 650 mg Documented By: Admin: 01/16/23 20:00 Dose: 650 mg Documented By: Admin: 01/16/23 09:56 Dose: 650 mg Documented By: Admin: 01/15/23 19:21 Dose: 650 mg Documented By: Allopurinol (Allopurinol 100 Mg Tab) 100 mg PO BID LEOBARDO Stop: 02/14/23 20:59 Last Admin: 01/17/23 08:17 Dose: 100 mg Documented By: Admin: 01/16/23 20:05 Dose: 100 mg Documented By: Admin: 01/16/23 09:49 Dose: 100 mg Documented By: Admin: 01/15/23 22:48 Dose: 100 mg Documented By: SHEBA Bupropion HCl (Bupropion Xl 300 Mg Tabcr) 300 mg PO QAM LEOBARDO Stop: 02/15/23 08:59 Last Admin: 01/17/23 08:16 Dose: 300 mg Documented By: Admin: 01/16/23 09:49 Dose: 300 mg Documented By: JENNIFER Buspirone HCl (Buspirone 15 Mg Tab) 15 mg PO TID LEOBARDO Stop: 02/14/23 20:59 Last Admin: 01/17/23 08:16 Dose: 15 mg Documented By: Admin: 01/16/23 20:02 Dose: 15 mg Documented By: Admin: 01/16/23 15:21 Dose: 15 mg Documented By: Admin: 01/16/23 09:49 Dose: 15 mg Documented By: Admin: 01/15/23 22:48 Dose: 15 mg Documented By: SHEBA Cetirizine HCl (Cetirizine Hcl 10 Mg Tablet) 10 mg PO DAILY LEOBARDO Stop: 02/15/23 08:59 Last Admin: 01/17/23 08:16 Dose: 10 mg Documented By: Admin: 01/16/23 09:49 Dose: 10 mg Documented By: CEF Cyanocobalamin (Cyanocobalamin (B-12) 500 Mcg Tablet) 1,000 mcg PO QAM LEOBARDO Stop: 02/15/23 08:59 Last Admin: 01/17/23 08:16 Dose: 1,000 mcg Documented By: Admin: 01/16/23 09:48 Dose: 1,000 mcg Documented By: CEF Doxycycline Hyclate (Doxycycline Hyclate 100 Mg Cap) 100 mg PO BID LEOBARDO Stop: 01/23/23 08:59 Last Admin: 01/17/23 08:16 Dose: 100 mg Documented By: Admin: 01/16/23 20:03 Dose: 100 mg Documented By: Admin: 01/16/23 09:48 Dose: 100 mg Documented By: CEF Enoxaparin Sodium (Enoxaparin Inj 40 Mg/0.4 Ml Syr) 40 mg SQ Q12H LEOBARDO Stop: 02/14/23 20:59 Last Admin: 01/17/23 08:20 Dose: 40 mg Documented By: Admin: 01/16/23 20:05 Dose: 40 mg Documented By: Admin: 01/16/23 09:52 Dose: 40 mg Documented By: Admin: 01/15/23 22:51 Dose: 40 mg Documented By: SMN Famotidine (Famotidine 20 Mg Tab) 20 mg PO HS LEOBARDO Stop: 02/14/23 20:59 Last Admin: 01/16/23 20:03 Dose: 20 mg Documented By: Admin: 01/15/23 22:51 Dose: 20 mg Documented By: SMN Fluticasone/Vilanterol (Fluticasone/Vilanterol 200/25mcg 14 Puffs/Inhaler) 1 puffs INH DAILY LEOBARDO Stop: 02/15/23 08:59 Last Admin: 01/17/23 08:17 Dose: 1 puffs Documented By: Admin: 01/16/23 09:49 Dose: 1 puffs Documented By: CEF Furosemide (Furosemide 40 Mg/4 Ml Vial) 40 mg IV ONE ONE Stop: 01/15/23 13:51 Last Admin: 01/15/23 14:19 Dose: 40 mg Documented By: ES Furosemide (Furosemide 40 Mg/4 Ml Vial) 40 mg IV BID17 LEOBARDO Stop: 02/15/23 08:59 Last Admin: 01/17/23 08:21 Dose: 40 mg Documented By: Admin: 01/16/23 17:43 Dose: 40 mg Documented By: Admin: 01/16/23 09:53 Dose: 40 mg Documented By: CEF Gabapentin (Gabapentin 300 Mg Cap) 300 mg PO TID LEOBARDO Stop: 02/14/23 20:59 Last Admin: 01/17/23 08:17 Dose: 300 mg Documented By: Admin: 01/16/23 20:00 Dose: 300 mg Documented By: Admin: 01/16/23 15:21 Dose: 300 mg Documented By: Admin: 01/16/23 09:48 Dose: 300 mg Documented By: Admin: 01/15/23 22:47 Dose: 300 mg Documented By: SHEBA Hydralazine HCl (Hydralazine Tab 50 Mg Tab) 50 mg PO BID LEOBARDO Stop: 02/14/23 20:59 Last Admin: 01/17/23 08:16 Dose: 50 mg Documented By: Admin: 01/16/23 20:01 Dose: 50 mg Documented By: Admin: 01/16/23 09:57 Dose: 50 mg Documented By: Admin: 01/15/23 22:50 Dose: 50 mg Documented By: SHEBA Ceftriaxone Sodium (Rocephin) 2,000 mg in 70 mls @ 140 mls/hr IV NOW STA Stop: 01/15/23 15:48 Last Infusion: 01/15/23 16:10 Dose: 0 mls/hr Documented By: Admin: 01/15/23 15:32 Dose: 140 mls/hr Documented By: Ceftriaxone Sodium 2,000 mg/ (Dextrose) 70 mls @ 100 mls/hr IV Q24H LEOBARDO; Protocol Stop: 01/23/23 14:59 Last Infusion: 01/16/23 16:20 Dose: 0 mls/hr Documented By: Admin: 01/16/23 15:26 Dose: 100 mls/hr Documented By: JENNIFER Ibuprofen (Ibuprofen 200 Mg Tab) 400 mg PO NOW ONE Stop: 01/16/23 14:44 Last Admin: 01/16/23 15:21 Dose: 400 mg Documented By: JENNIFER Ioversol (Ioversol 350 Mg 125ml Prefilled Syringe) 60 ml IV ONCE ONE Stop: 01/15/23 14:34 Last Admin: 01/15/23 14:33 Dose: 60 ml Documented By: VANI Ketorolac Tromethamine (Ketorolac Tromethamine 15 Mg/Ml Vial) 10 mg IV NOW ONE Stop: 01/16/23 00:26 Last Admin: 01/16/23 00:52 Dose: 10 mg Documented By: SHEBA Montelukast Sodium (Montelukast Sodium 10 Mg Tablet) 10 mg PO QPM LEOBARDO Stop: 02/14/23 20:59 Last Admin: 01/16/23 20:04 Dose: 10 mg Documented By: Admin: 01/15/23 22:50 Dose: 10 mg Documented By: SHEBA Nitroglycerin (Nitroglycerin Sl 0.4 Mg/Tab Tab) 0.4 mg SL Q5M PRN PRN Reason: Chest Pain Stop: 02/15/23 09:37 Last Admin: 01/16/23 09:45 Dose: 0.4 mg Documented By: CEF Pantoprazole Sodium (Pantoprazole 40 Mg Tab) 40 mg PO BID LEOBARDO Stop: 02/14/23 20:59 Last Admin: 01/17/23 08:17 Dose: 40 mg Documented By: Admin: 01/16/23 20:01 Dose: 40 mg Documented By: Admin: 01/16/23 09:48 Dose: 40 mg Documented By: Admin: 01/15/23 22:47 Dose: 40 mg Documented By: [facility] Potassium Chloride (Potassium Chloride Crtab 20 Meq Tabcr) 40 meq PO BID LEOBARDO Stop: 02/14/23 20:59 Last Admin: 01/17/23 08:16 Dose: 40 meq Documented By: Admin: 01/16/23 20:04 Dose: 40 meq Documented By: [facility] Admin: 01/16/23 09:47 Dose: 40 meq Documented By: Admin: 01/15/23 22:49 Dose: 40 meq Documented By: [facility] Spironolactone (Spironolactone 25 Mg Tab) 25 mg PO BID LEOBARDO Stop: 02/14/23 20:59 Last Admin: 01/17/23 08:17 Dose: 25 mg Documented By: Admin: 01/16/23 20:02 Dose: 25 mg Documented By: [facility] Admin: 01/16/23 09:48 Dose: 25 mg Documented By: Admin: 01/15/23 22:49 Dose: 25 mg Documented By: [facility] Imaging Data Radiologist's Impression: Chest X-Ray 01/15/23 11:54 XR chest 1V not portable CLINICAL HISTORY: fluid overload TECHNIQUE: Single frontal radiograph of the chest was obtained. Comparison: Comparison is made to chest radiograph 09/16/2021 FINDINGS: Right shoulder arthroplasty is seen. The cardiomediastinal silhouette is normal. The lungs are clear. No evidence of pleural effusion or pneumothorax. IMPRESSION: No acute chest disease. ACT 112: Negative or not required by law. Electronically signed by: Christian Duran M.D. 01/15/2023 12:34 PM Venous Doppler Study 01/15/23 12:57 ULTRASOUND LEFT LOWER EXTREMITY VENOUS CLINICAL HISTORY: Left leg swelling. COMPARISON STUDY: Left lower extremity venous ultrasound dated 10/14/2021. TECHNIQUE: Real-time, grayscale, and color Doppler sonography of the deep veins of the left lower extremity was performed from the inguinal crease to the calf. Compression and augmentation were utilized. The examination is degraded by large body habitus. FINDINGS: There is no sonographic evidence of deep venous thrombosis identified in the left lower extremity. The common femoral, superficial femoral, and popliteal veins are patent and normally compressible. The greater saphenous vein and the profunda femoris vein at the junction with the common femoral vein are clear. The visualized calf veins are patent. Soft tissue edema is noted in the calf. IMPRESSION: There is no sonographic evidence of deep venous thrombosis identified in the left lower extremity. ACT 112: Negative or not required by law. Electronically signed by: Will Hussein M.D. 01/15/2023 2:13 PM Abdomen/Pelvis CT 01/15/23 13:02 CT OF THE ABDOMEN AND PELVIS WITH CONTRAST CLINICAL HISTORY: increased weight, ? ascites, recent L ALLA, obese COMPARISON STUDY: CT of the abdomen and pelvis April 28, 2022. TECHNIQUE: Following IV administration of 60 mL of Optiray, axial images of the abdomen and pelvis were obtained from the lung bases to the proximal femurs. Images were reviewed in the axial, sagittal, and coronal planes. IV contrast was administered without complication. Automated exposure control was utilized for the study. A dose lowering technique was utilized adhering to the principles of ALARA. CT DOSE: 1891.76 mGy.cm FINDINGS: Lung bases are unremarkable. No pneumatosis, free air or portal venous gas is present. There is no biliary ductal dilatation status post cholecystectomy. No hepatic lesions are present. Spleen, adrenal glands and pancreas are unremarkable. There is no peripancreatic infiltration. Marked right renal atrophy is unchanged. There is mild right collecting system dilatation. Scarring within the left kidney is noted. Numerous bilateral renal calculi measure up to 7 mm. There are no ureteral calculi. Bales balloon within the bladder is present. There is no evidence for a bowel obstruction. The caliber and wall thickness of small and large bowel are normal. A low-attenuation 7.5 x 4.3 cm left adnexal lesion remains unchanged since prior CT and ultrasound. No ascites is present. No fluid collection is identified within the abdomen or pelvis. Anterior abdominal wall skin thickening and subcutaneous stranding is partially imaged. No fluid collection is identified. IMPRESSION: 1. No bowel obstruction. No bowel wall thickening. No ascites. 2. Bilateral nephrolithiasis. Mild right collecting system dilatation. No ureteral calculi. Right renal atrophy. 3. Subcutaneous stranding and skin thickening of the lower anterior abdominal wall, partially imaged. This could reflect cellulitis or edema. No fluid collection identified. 4. No change in an indeterminate 7.5 x 4.3 cm left ovarian cystic lesion. ACT 112: Negative or not required by law. Electronically signed by: Biju Vergara M.D. 01/15/2023 2:54 PM Discharge Plan Visit Data Chief Complaint: Swelling/Edema to Extremity Stated Complaint: REF BY DR. CASTRO, SWELLING IN [place] AND L LEG ED Provider: Hellen Mendosa Discharge Problem: Abdominal wall cellulitis, Venous stasis dermatitis, Cellulitis of left leg Patient Disposition: Admitted As Inpatient Discharge Instructions Interventions: ED Discharge Assessment Last Done: 01/15/23 20:19
[2023-01-15] MEDS ORDERED: cefTRIAXone SODIUM 2,000 MG/70 ML BAG IV STA (15:19)
[2023-01-15 15:35] LABS: Appearance Urine Clear (Clear); Bilirubin Urine Negative (Negative); Blood Urine Negative (Negative); Color Urine Yellow; Glucose Urine UA Negative (Negative); Ketones Urine Negative (Negative); Leukocyte Esterase Urine Negative (Negative); Nitrite Urine Negative (Negative); Protein Urine Negative (Negative); Specific Gravity Urine 1.007 (1.000-1.030); Urobilinogen Urine Negative (Negative); pH Urine 6.5 (4.5-7.5)
--- NOTE | 2023-01-15 15:48 | History & Physical Report ---
Date of Service January 15, 2023 Assessment & Plan (1) Edema of left lower extremity: Plan: Pt is a 62 yo female with PMH of anemia, HFpEF, CKD stage 3, CVA/TIA? in 2017, HLD, HTN, and peripheral neuropathy who presents to the hospital from her PCP office due to concerns for CHF exacerbation and DVT/PE. Dyspnea on exertion, LLE edema - possible etiologies include acute on ?chronic HFpEF, obesity hypoventilation syndrome, venous stasis, asthma exacerbation - suspect venous stasis as the main cause of her LE edema considering neg BNP and lack of lung exam findings - left lower extremity doppler negative for DVT - CXR neg; no wheezing or crackles heard on lung exam - last echo 09/2021 showed EF 60-65% w/o significant LV disease; repeat pending - s/p 40 mg IV lasix in ER- robust response with ~4 L out; continue diuresis with IV lasix 40 mg BID Panniculitis, LLE cellulitis - CTAP showed findings consistent with overlying cellulitis - s/p 2g ceftriaxone ER (first day 01/15) - will continue tx with ceftriaxone 2g daily HTN - chronic and uncontrolled with new addition ~2 weeks ago of hydralazine 50 mg BID - suspect untreated ANDRZEJ may be contributing to hard to treat BP - continue home medications: hydralazine 50 mg BID, spironolactone 25 mg BID - despite CKD, may be beneficial to consider use of ACEi/ARB for further BP control CKD, stage 3 - Cr stable and at baseline - in the setting of additional diuresis, continue to follow kidney function Untreated ANDRZEJ - pt previously compliant with CPAP but w/o due to machine recalls - encouraged pt to discuss new CPAP machine with PCP Asthma - do not believe pt is in an acute exacerbation considering her vitals and exam - continue home daily inhaler Hx of left knee joint infection - recent replacement October 2022 - continue outpatient doxy 100 mg BID Diet: heart healthy DVT ppx: lovenox BID Code: full Dispo: admit to med/surg (2) Cellulitis: (3) Chronic venous stasis dermatitis of both lower extremities: (4) Severe obstructive sleep apnea: (5) Asthma: (6) Chronic ulcer of left foot: (7) Morbid obesity with BMI of 50.0-59.9, adult: (8) CKD (chronic kidney disease) stage 3, GFR 30-59 ml/min: (9) Hypertension: (10) History of CVA (cerebrovascular accident): History of Present Illness Chief Complaint: FREDDY Primary Care Provider: Etelvina Cazares DO Pt is a 62 yo female with PMH of anemia, HFpEF, CKD stage 3, CVA/TIA? in 2017, HLD, HTN, and peripheral neuropathy who presents to the hospital from her PCP office due to concerns for CHF exacerbation and DVT/PE. Pt states ~2 weeks ago she noticed that her legs began to swell. She tends to have baseline swelling left>right but this swelling has been progressive. This prompted her to see her PCP today who referred her to the ER. Her left leg is now 3x the normal size- so much that she is unable to wear her typical compression stockings. Her left leg is also painful. She notes that with this swelling came increased shortness of breath with activity. She also has orthopnea- she sleeps sitting up to avoid issues breathing at night which is not new. She has a hx of sleep apnea requiring CPAP which she was previously compliant with but she has been without her CPAP machine for greater than a year due to a machine recall. In the last 1-2 days she has also noticed increased pain and redness of her abdomen. She states she had cellulitis of her leg/abdomen maybe 10 years ago, but no issues with it since. She is currently on doxycycline 100 mg BID x4 weeks due to a left knee joint infection (previously on vanco- C. striatum tx). Pt's left knee was replaced in October 2022. Pt has been compliant with her home medications. She was recently started on hydralazine 50 mg BID for blood pressure control. She measures her BP at home and tends to get no lower than 145/90. Last echo 09/2021 showed normal LV size and function and EF 60-65%. Previous echo to that 07/2021 showed mildly dilated LV and LVH with normal function and EF 60-65%. Pt was hypertensive in the ER. Otherwise, vitals stable. Pt's weight increased 8.3 kg since last documented weight 12/28/2022. Her weight was recorded at 163.3 on 11/19/2022. In the ER, labs showed no leukocytosis, Hgb 11.8 (baseline appears ~10-11), platelets 295, coagulation studies WNL, electrolytes WNL, Cr 1.34 (baseline appears ~1.3-1.5), troponin neg, BNP neg, and UA neg. CXR neg. Doppler of left LE neg. CTAP showed bilateral nephrolithiasis, subcutaneous stranding of the skin of the lower anterior abdominal wall which may represent a cellulitis /edema, and stable left ovarian cyst. Pt received 40 mg IV lasix and 2g ceftriaxone in the ER. Allergies Allergy/AdvReac Type Severity Reaction Status Date / Time Corticosteroids Allergy Intermediate RASH Verified 01/15/23 15:23 (Glucocorticoids) morphine Allergy Intermediate MOUTH Verified 01/15/23 15:23 SWELLS/FACE SWELLS orange Allergy Intermediate HIVES Verified 01/15/23 15:23 Penicillins Allergy Intermediate RASH/HIVES Verified 01/15/23 15:23 prednisone Allergy Intermediate RED RASH Verified 01/15/23 15:23 adhesive Allergy Mild Skin rash Verified 01/15/23 15:23 localized zolpidem Allergy Unknown UNSURE Verified 01/15/23 15:23 pregabalin AdvReac Intermediate GOOFY Verified 01/15/23 15:23 Home Medications Medication Instructions Recorded Confirmed Type albuterol sulfate 90 mcg/actuation 2 puff inhalation Q4H PRN 05/21/21 01/15/23 Rx aerosol inhaler (Ventolin HFA) Shortness Of Breath Or Wheezing #18 grams fluticasone 250 mcg-salmeterol 50 1 inh inhalation BID #1 inhaler 06/25/21 01/15/23 Rx mcg/dose blistr powdr for inhalation (Advair Diskus) cholecalciferol (vitamin D3) 50 2,000 unit PO TID #270 caps 07/18/21 01/15/23 Rx mcg (2,000 unit) capsule (Vitamin D3) multivitamin 1 tab PO QAM #90 tabs 07/18/21 01/15/23 Rx acetaminophen 500 mg tablet 1,000 mg PO Q4H PRN fever or pain 09/16/21 01/15/23 Rx #90 tabs albuterol sulfate 2.5 mg/3 mL 2.5 mg inhalation Q6H PRN 10/14/21 01/15/23 History (0.083 %) solution for nebulization Shortness Of Breath calcium carbonate 300 mg (750 mg) 900 mg PO QAM 03/03/22 01/15/23 History chewable tablet (Tums) cyanocobalamin (vitamin B-12) 1,000 mcg PO QAM 03/03/22 01/15/23 History 1,000 mcg tablet (Vitamin B-12) duloxetine 60 mg capsule,delayed 60 mg PO QAM #90 caps 05/01/22 01/15/23 Rx release spironolactone 25 mg tablet 25 mg PO BID #60 tabs 06/09/22 01/15/23 Rx cetirizine 10 mg tablet (Zyrtec) 10 mg PO DAILY #90 tabs 07/03/22 01/15/23 Rx famotidine 20 mg tablet 20 mg PO HS 10/05/22 01/15/23 History montelukast 10 mg tablet 10 mg PO QPM #90 tabs 10/16/22 01/15/23 Rx bupropion HCl 300 mg 24 hr tablet, 300 mg PO QAM #90 tabs 10/23/22 01/15/23 Rx extended release Klor-Con M20 20 mEq 40 meq PO BID #120 tabs 10/28/22 01/15/23 Rx tablet,extended release (potassium chloride) bumetanide 1 mg tablet 1 mg PO BID #60 tabs 10/29/22 01/15/23 Rx metoclopramide HCl 5 mg tablet 5 mg PO DAILY 11/02/22 01/15/23 History pantoprazole 40 mg tablet,delayed 40 mg PO BID #180 tabs 11/19/22 01/15/23 Rx release buspirone 15 mg tablet 15 mg PO TID #270 tabs 11/20/22 01/15/23 Rx allopurinol 100 mg tablet 100 mg PO BID #180 tabs 12/14/22 01/15/23 Rx gabapentin 300 mg capsule 300 mg PO TID #270 caps 12/14/22 01/15/23 Rx hydralazine 50 mg tablet 50 mg PO BID #60 tabs 12/28/22 01/15/23 Rx doxycycline monohydrate 100 mg 100 mg PO BID 01/15/23 01/15/23 History capsule Past Med/Surg History Medical History Acid reflux Acute urinary retention Allergic rhinitis Ambulatory dysfunction Anemia Arthritis Asthma Cellulitis and abscess of left leg Chronic back pain Chronic cutaneous venous stasis ulcer Chronic heart failure with preserved ejection fraction CKD (chronic kidney disease) stage 3, GFR 30-59 ml/min Congenital kidney disease Conjunctivitis Degenerative joint disease, shoulder, right Dependent lymphedema Depression with anxiety Dyslipidemia Fall as cause of accidental injury at home as place of occurrence Fatty liver Gout History of COVID-19 History of CVA (cerebrovascular accident) History of revision of total replacement of left knee joint Hyperlipidemia Hypertension Hypertension Hypokalemia Iron deficiency anemia Lumbar spinal stenosis Lymphedema MDD (major depressive disorder), recurrent episode, moderate Morbid obesity with BMI of 50.0-59.9, adult MRSA (methicillin resistant staph aureus) culture positive ANDRZEJ (obstructive sleep apnea) Other ovarian cyst, left side Peripheral neuropathy Port-A-Cath in place Prediabetes Recurrent cellulitis of lower leg Sepsis Septic arthritis Sleep apnea Stage 3b chronic kidney disease TIA (transient ischemic attack) Venous stasis of both lower extremities Viral URI Surgical History H/O knee surgery (12/2021) H/O ventral hernia repair History of appendectomy History of bilateral knee replacement (10/16/22) History of carpal tunnel release History of cholecystectomy S/P tonsillectomy and adenoidectomy Status post total shoulder arthroplasty (10/17/18) Family History Mother Diabetes Coronary heart disease Myocardial infarction S/P CABG x 3 Hypertension Gallbladder disease Sister Hodgkins lymphoma Brother Kidney disease Grandmother Breast cancer Aunt Ovarian cancer Father Peripheral vascular disease Daughter Diabetes Other Cancer No family history of adverse response to anesthesia Denies family history of Prostate cancer Colorectal cancer Social History Smoking Status: Former smoker Age Started Using Tobacco: 22; Age Quit Using Tobacco: 24; Second Hand Exposure: No; Do You Dip or Chew Tobacco: No; Hx Alcohol Use: No Hx Substance Use: No Preferred Language: Italian 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 Ability: Effective Visual Impairment: Limited Hearing Ability: Normal 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 Beliefs That Will Affect Care: Orthodox Orthodox Beliefs: Jehovah'S Witness marital status: marital status details: ; lives with parents & 1 daughter Current Living Situation: Family Current Living Situation Comment: daughter and mom current occupational status: disabled other: 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 Eyes: Conjunctivae normal. Respiratory: CTA bilaterally. Non labored breathing. No rhonchi, wheezing, or crackles. Cardiovascular: RRR. No murmurs noted. LLE > RLE edema. LLE 3+ pitting edema. Gastrointestinal (Abdomen): Soft, tender to superficial touch due to overlying soft tissue infection. No discrete masses noted. Skin: Warm to touch and erythematous abdominal pannus. Erythematous left lower extremities from ankle to inferior to left knee- painful to touch. ~1cm open ulcer located on the lateral, plantar surface of left foot. No purulence noted at any site. Chronic venous stasis changes noted of right lower extremities. Neurologic: Sensation grossly intact. No FND appreciated. Psychiatric: Speech of normal pace and content. Mood and affect congruent. Results & Data Results & Data Vital Signs (Past 12 Hours) Vital Signs Temp Pulse Pulse Resp BP BP Pulse Ox 01/15/23 14:20 82 20 172/82 H 98 01/15/23 12:58 75 01/15/23 12:38 77 17 169/84 H 97 01/15/23 11:50 36.2 C L 81 18 152/82 H 98 O2 Del Method 01/15/23 14:20 Room Air 01/15/23 12:58 01/15/23 12:38 Room Air 01/15/23 11:50 Room Air Supervising Physician Co-Signing Physician Notes Patient seen and examined, chart reviewed, case discussed with Isabel Bolden, and I agree with the assessment and plan as above except as otherwise noted Labs and images reviewed Kriss Tristan is a 62-year-old female with a past medical history of pre-DM, CVA, dyslipidemia, CKD 3, chronic left foot ulceration, asthma, severe ANDRZEJ, HFpEF, fatty liver disease, anxiety/depression BNP: 17 High-sensitivity troponin: Normal No transaminitis Creatinine baseline approximately 1.31.5, admitting creatinine 1.34 Coag panel normal No leukocytosis Hemoglobin baseline 10.311.7, admitting creatinine 11.8. Borderline low normocytic. CXR: No acute findings Left lower extremity Doppler: No evidence of DVT CTA/P: No bowel obstruction. No ascites. Bilateral nephrolithiasis, mild right collecting dilatation. Subcutaneous stranding and skin thickening of lower anterior abdominal wall? Cellulitis versus edema. No fluid collection/abscess noted. Unchanged indeterminate 7.5 x 4.3 cm left ovarian cyst noted CTAchest 12/22/2022 without PE or acute findings. This was performed for exertional dyspnea and atypical chest pain. Follows with cardiology for HFpEF. Seen 12/22/2022 for atypical chest pain with a normal cardiac work-up at [place]. Was seen by [facility] cardiology 12/28 for follow-up, exertional dyspnea had improved with minimal edema. Was continued on Bumex twice daily, low-sodium diet, spironolactone. Blood pressure generally elevated at home and was started on hydralazine 50 mg twice daily. Echo 09/2021: Technically limited, EF is 60-65% Dry weight: Approximately 168.2 kg, weight day of admission 177.8 kg standing approximately 9 kg over normal weight. Seen at bedside, erythematous panniculitis in the lower abdomen is noted. Left leg is asymmetrically enlarged, with asymmetrical erythema/warmth and pretibial tenderness suspicious for venous stasis and superimposed left-sided cellulitis. No evidence of DVT on evaluation above. Given that patient has no pulmonary edema and a normal BNP suspect that this is more likely severe venous stasis and volume overload than CHF, she does not have any hypoxia or JVD. Has had a very brisk output to 40 mg of Lasix, recommend continuing twice daily 17 with the addition of venous stasis precautions including leg elevation for at minimum 30 minutes 3 times a day while on diuretics. Agree with treatment of cellulitis with Rocephin. Patient does not appear septic. Patient with inadequately controlled hypertension as an outpatient, significant improvement in pressures following initial Lasix likely due to vasodilatory effect. Continue home medications, recently started hydralazine twice daily, goal inpatient BSG less than systolic 180. May increase to 3 times daily if needed Resident Activity Tracking Resident Involvement: Resident Care Provided Care Provided: Adult Hospital Medicine (2) Cellulitis Laterality: left Site of cellulitis: extremity Site of cellulitis of extremity: lower extremity Qualified Code(s): L03.116 - Cellulitis of left lower limb (6) Chronic ulcer of left foot Non-pressure ulcer stage: unspecified non-pressure ulcer stage Qualified Code(s): L97.529 - Non-pressure chronic ulcer of other part of left foot with unspecified severity (8) CKD (chronic kidney disease) stage 3, GFR 30-59 ml/min Chronic kidney disease stage 3 subtype: stage 3b (GFR 30-44) Qualified Code(s): N18.32 - Chronic kidney disease, stage 3b
[2023-01-15] MEDS: ACETAMINOPHEN 325 MG TAB PO PRN (19:21)
[2023-01-15] MEDS: GABAPENTIN 300 MG CAP PO SCH (22:47)
[2023-01-15] MEDS: PANTOprazole 40 MG TAB PO SCH (22:47)
[2023-01-15] MEDS: allopurinoL 100 MG TAB PO SCH (22:48)
[2023-01-15] MEDS: busPIRone 15 MG TAB PO SCH (22:48)
[2023-01-15] MEDS: POTASSIUM CHLORIDE CRTAB 20 MEQ TABCR PO SCH (22:49)
[2023-01-15] MEDS: SPIRONOLACTONE 25 MG TAB PO SCH (22:49)
[2023-01-15] MEDS: hydrALAZINE TAB 50 MG TAB PO SCH (22:50)
[2023-01-15] MEDS: MONTELUKAST SODIUM 10 MG TABLET PO SCH (22:50)
[2023-01-15] MEDS: FAMOTIDINE 20 MG TAB PO SCH (22:51)
[2023-01-15] MEDS: ENOXAPARIN INJ 40 MG/0.4 ML SYR SQ SCH (22:51)
[2023-01-16] MEDS ORDERED: KETOROLAC TROMETHAMINE 15 MG/ML VIAL IV ONE (00:25)
[2023-01-16 06:01] LABS: BUN Creatinine Ratio 10.3 (10-20); Calcium 8.5 mg/dl (8.6-10.3); Creatinine Clr Calc Pharmacy 67.7 ml/min; Est GFR (African American) 41.7 ml/min; Hematocrit (blood only) 35.4 % (37.0-47.0); Hemoglobin 11.6 g/dl (12.0-16.0); Mean Corpuscular Hemoglobin 26.4 pg (25.0-34.0); Mean Corpuscular Hgb Conc 32.8 g/dL (32.0-36.0); Mean Corpuscular Volume 80.6 fL (80.0-100.0); Platelet Count 278 K/uL (130-400); RDW Coefficient of Variation 15.9 % (11.5-14.5); Red Blood Count 4.39 M/uL (4.20-5.40); White Blood Count 7.99 K/ul (4.8-10.8)
[2023-01-16] MEDS ORDERED: NITROGLYCERIN SL 0.4 MG/TAB TAB SL PRN (09:38)
[2023-01-16] MEDS: POTASSIUM CHLORIDE CRTAB 20 MEQ TABCR PO SCH ×2 (09:47→20:04)
[2023-01-16] MEDS: DOXYCYCLINE HYCLATE 100 MG CAP PO SCH ×2 (09:48→20:03)
[2023-01-16] MEDS: GABAPENTIN 300 MG CAP PO SCH ×3 (09:48→20:00)
[2023-01-16] MEDS: SPIRONOLACTONE 25 MG TAB PO SCH ×2 (09:48→20:02)
[2023-01-16] MEDS: CYANOCOBALAMIN (B-12) 500 MCG TABLET PO SCH (09:48)
[2023-01-16] MEDS: PANTOprazole 40 MG TAB PO SCH ×2 (09:48→20:01)
[2023-01-16] MEDS: CETIRIZINE HCL 10 MG TABLET PO SCH (09:49)
[2023-01-16] MEDS: allopurinoL 100 MG TAB PO SCH ×2 (09:49→20:05)
[2023-01-16] MEDS: buPROPion XL 300 MG TABCR PO SCH (09:49)
[2023-01-16] MEDS: FLUTICASONE/VILANTEROL 200/25MCG 14 PUFFS/INHALER INH SCH (09:49)
[2023-01-16] MEDS: busPIRone 15 MG TAB PO SCH ×3 (09:49→20:02)
[2023-01-16] MEDS: ENOXAPARIN INJ 40 MG/0.4 ML SYR SQ SCH ×2 (09:52→20:05)
[2023-01-16] MEDS: FUROSEMIDE 40 MG/4 ML VIAL IV SCH ×2 (09:53→17:43)
[2023-01-16] MEDS: ACETAMINOPHEN 325 MG TAB PO PRN ×2 (09:56→20:00)
[2023-01-16] MEDS: hydrALAZINE TAB 50 MG TAB PO SCH ×2 (09:57→20:01)
--- NOTE | 2023-01-16 10:50 | XCELERA ---
[id number] \\[email or web address]\[id number]
--- NOTE | 2023-01-16 13:00 | Hospitalist Progress Note ---
Date of Service January 16, 2023 Assessment & Plan (1) Edema of left lower extremity: Plan: Pt is a 62 yo female with PMH of anemia, HFpEF, CKD stage 3, CVA/TIA? in 2017, HLD, HTN, and peripheral neuropathy who presents to the hospital from her PCP office due to concerns for CHF exacerbation and DVT/PE. chest pain: Patient complained of substernal chest pressure this morning said it has been going on and off for a few weeks Stat EKG did not show any ST changes, only evidence of age inderterminate infarct. Trop was normal 2 D ECHO did not show any wall motion abnormality, EF 55-60% She follow up with cardiology outpatient Dyspnea on exertion - possible etiologies include acute on ?chronic HFpEF, obesity hypoventilation syndrome, - CXR neg; no wheezing or crackles heard on lung exam - last echo 09/2021 showed EF 60-65% w/o significant LV disease; repeat pending - s/p 40 mg IV lasix in ER, continue diuresis with IV lasix 40 mg BID Cellulitis - present on left lower extremity and abdominal pannus - CTAP showed findings consistent with overlying cellulitis -- left lower extremity doppler negative for DVT - s/p 2g ceftriaxone ER (first day 01/15) - will continue tx with ceftriaxone 2g daily HTN - chronic and uncontrolled with new addition ~2 weeks ago of hydralazine 50 mg BID - suspect untreated ANDRZEJ may be contributing to hard to treat BP - continue home medications: hydralazine 50 mg BID, spironolactone 25 mg BID - despite CKD, may be beneficial to consider use of ACEi/ARB for further BP control CKD, stage 3 - Cr stable and at baseline - in the setting of additional diuresis, continue to follow kidney function Untreated ANDRZEJ - pt previously compliant with CPAP but w/o due to machine recalls - encouraged pt to discuss new CPAP machine with PCP Diet: heart healthy DVT ppx: lovenox BID Code: full Dispo: admit to med/surg (2) Cellulitis: (3) Chronic venous stasis dermatitis of both lower extremities: (4) Severe obstructive sleep apnea: (5) Asthma: (6) Chronic ulcer of left foot: (7) Morbid obesity with BMI of 50.0-59.9, adult: (8) CKD (chronic kidney disease) stage 3, GFR 30-59 ml/min: (9) Hypertension: (10) History of CVA (cerebrovascular accident): Plan continue to monitor Admission and Anticipated Discharge Date Admission Date: January 15, 2023 Subjective patient complained of substernal chest pain this morning Review of Systems Review of Systems: All systems reviewed are negative, apart from the ones contained in the history. Physical Exam Physical Exam: The patient is awake, alert and oriented 3, well developed and well nourished, normocephalic and atraumatic, lying in bed and in no acute distress. HEENT--PERRL, EOMI, mucous membranes and oropharynx mildly dry Neck--supple. No JVD. No bruits. Thyroid normal, trachea midline, no adenopathy. Heart--normal S1 and S2. No murmurs, rubs or gallops. Lungs--clear bilaterally, no respiratory distress, no accessory muscle use. Abdomen--normal bowel sounds and soft. Mild epigastric and left sided abdominal pain Extremities--no cyanosis or clubbing. No edema. Dermatologic--stasis dermatitis. Neurologic--cranial nerves II through XII grossly intact. Rheumatologic--normal range of motion. Psychiatric--normal affect. Results & Data Results & Data Vital Signs (Past 12 Hours) Vital Signs Temp Pulse Resp BP Pulse Ox O2 Del Method FiO2 01/16/23 09:34 Room Air 01/16/23 09:14 97.7 F 85 16 121/69 97 Room Air 01/16/23 08:09 97.7 F 71 20 111/71 97 Room Air 01/16/23 03:22 17 21 PG Care Time/CCT Total # of Minutes Spent Total Time Spent with Patient: Total time spent is greater than 50% in coordination of care (as documented) at patient's floor/unit and/or counseling patient: Coding Level of Care Code 67002 SUB INP/OBS CARE 2/35MIN Diagnoses Edema of left lower extremity R60.0 Cellulitis L03.116 Site of cellulitis: extremity Site of cellulitis of extremity: lower extremity Laterality: left Chronic venous stasis dermatitis of both lower extremities I87.2 Severe obstructive sleep apnea G47.33 Asthma J45.909 Chronic ulcer of left foot L97.529 Non-pressure ulcer stage: unspecified non-pressure ulcer stage Morbid obesity with BMI of 50.0-59.9, adult E66.01; Z68.43 CKD (chronic kidney disease) stage 3, GFR 30-59 ml/min N18.32 Chronic kidney disease stage 3 subtype: stage 3b (GFR 30-44) Hypertension I10 History of CVA (cerebrovascular accident) Z86.73 Time Spent (min) 35 (2) Cellulitis Site of cellulitis: extremity Site of cellulitis of extremity: lower extremity Laterality: left Qualified Code(s): L03.116 - Cellulitis of left lower limb (6) Chronic ulcer of left foot Non-pressure ulcer stage: unspecified non-pressure ulcer stage Qualified Code(s): L97.529 - Non-pressure chronic ulcer of other part of left foot with unspecified severity (8) CKD (chronic kidney disease) stage 3, GFR 30-59 ml/min Chronic kidney disease stage 3 subtype: stage 3b (GFR 30-44) Qualified Code(s): N18.32 - Chronic kidney disease, stage 3b
[2023-01-16] MEDS ORDERED: IBUPROFEN 200 MG TAB PO ONE (14:43)
[2023-01-16] MEDS ORDERED: cefTRIAXone SODIUM 2,000 MG in DEXTROSE 5% 50 ML IV SCH (15:00)
--- NOTE | 2023-01-16 15:43 | CT Scan Report ---
CT head/brain wo con CLINICAL HISTORY: Headache Technique: Contiguous axial CT images of the head were acquired from the base of the skull to the effie roland without intravenous contrast administration. Images were viewed in brain, subdural and [facility]. Automated dose lowering techniques and/or adjustment according to patient size were utilized for this exam. Comparison: Comparison is made to CT head 10/03/2017 Findings: The ventricles, basal cisterns, and cerebral sulci are normal. There is no acute intracranial hemorrh age or evidence of acute territorial infarction. Neither mass effect, shift of the midline structures , nor abnormal extra-axial fluid collections are shown. Imaged portions of the paranasal sinuses and mastoid air cells are clear. The orbits appear normal. There are no acute fractures of the calvaria or scalp swelling. Impression: No acute intracranial hemorrhage, no evidence of acute territorial infarction or other acute intracra nial disease process. ACT 112: Negative or not required by law. Electronically signed by: Christian Duran M.D. 01/16/2023 3:42 PM
[2023-01-16] MEDS: FAMOTIDINE 20 MG TAB PO SCH (20:03)
[2023-01-16] MEDS: MONTELUKAST SODIUM 10 MG TABLET PO SCH (20:04)
[2023-01-17 06:06] LABS: Hematocrit (blood only) 37.9 % (37.0-47.0); Mean Corpuscular Hgb Conc 31.7 g/dL (32.0-36.0); Mean Corpuscular Volume 82.2 fL (80.0-100.0); Mean Platelet Volume 10.1 fL (9.4-12.4); Platelet Count 270 K/uL (130-400); RDW Coefficient of Variation 16.1 % (11.5-14.5); RDW Standard Deviation 48.4 fL (36.4-46.3); Red Blood Count 4.61 M/uL (4.20-5.40); White Blood Count 7.23 K/ul (4.8-10.8)
[2023-01-17 06:58] LABS: BUN Creatinine Ratio 12.1 (10-20); Calcium 8.8 mg/dl (8.6-10.3); Creatinine Clr Calc Pharmacy 70.4 ml/min; Est GFR (African American) 43.8 ml/min; Est GFR (Non-African American) 37.8 ml/min; Potassium 4.1 mmol/L (3.5-5.1)
[2023-01-17] MEDS: buPROPion XL 300 MG TABCR PO SCH (08:16)
[2023-01-17] MEDS: CETIRIZINE HCL 10 MG TABLET PO SCH (08:16)
[2023-01-17] MEDS: CYANOCOBALAMIN (B-12) 500 MCG TABLET PO SCH (08:16)
[2023-01-17] MEDS: DOXYCYCLINE HYCLATE 100 MG CAP PO SCH (08:16)
[2023-01-17] MEDS: busPIRone 15 MG TAB PO SCH (08:16)
[2023-01-17] MEDS: hydrALAZINE TAB 50 MG TAB PO SCH (08:16)
[2023-01-17] MEDS: POTASSIUM CHLORIDE CRTAB 20 MEQ TABCR PO SCH (08:16)
[2023-01-17] MEDS: allopurinoL 100 MG TAB PO SCH (08:17)
[2023-01-17] MEDS: ACETAMINOPHEN 325 MG TAB PO PRN (08:17)
[2023-01-17] MEDS: PANTOprazole 40 MG TAB PO SCH (08:17)
[2023-01-17] MEDS: FLUTICASONE/VILANTEROL 200/25MCG 14 PUFFS/INHALER INH SCH (08:17)
[2023-01-17] MEDS: SPIRONOLACTONE 25 MG TAB PO SCH (08:17)
[2023-01-17] MEDS: GABAPENTIN 300 MG CAP PO SCH (08:17)
[2023-01-17] MEDS: ENOXAPARIN INJ 40 MG/0.4 ML SYR SQ SCH (08:20)
[2023-01-17] MEDS: FUROSEMIDE 40 MG/4 ML VIAL IV SCH (08:21)
--- NOTE | 2023-01-17 12:00 | Discharge Summary ---
Date of Service January 17, 2023 Admission HPI Per Admitting Provider Pt is a 62 yo female with PMH of anemia, HFpEF, CKD stage 3, CVA/TIA? in 2017, HLD, HTN, and peripheral neuropathy who presents to the hospital from her PCP office due to concerns for CHF exacerbation and DVT/PE. Pt states ~2 weeks ago she noticed that her legs began to swell. She tends to have baseline swelling left>right but this swelling has been progressive. This prompted her to see her PCP today who referred her to the ER. Her left leg is now 3x the normal size- so much that she is unable to wear her typical compression stockings. Her left leg is also painful. She notes that with this swelling came increased shortness of breath with activity. She also has orthopnea- she sleeps sitting up to avoid issues breathing at night which is not new. She has a hx of sleep apnea requiring CPAP which she was previously compliant with but she has been without her CPAP machine for greater than a year due to a machine recall. In the last 1-2 days she has also noticed increased pain and redness of her abdomen. She states she had cellulitis of her leg/abdomen maybe 10 years ago, but no issues with it since. She is currently on doxycycline 100 mg BID x4 weeks due to a left knee joint infection (previously on vanco- C. striatum tx). Pt's left knee was replaced in October 2022. Pt has been compliant with her home medications. She was recently started on hydralazine 50 mg BID for blood pressure control. She measures her BP at home and tends to get no lower than 145/90. Last echo 09/2021 showed normal LV size and function and EF 60-65%. Previous echo to that 07/2021 showed mildly dilated LV and LVH with normal function and EF 60-65%. Pt was hypertensive in the ER. Otherwise, vitals stable. Pt's weight increased 8.3 kg since last documented weight 12/28/2022. Her weight was recorded at 163.3 on 11/19/2022. In the ER, labs showed no leukocytosis, Hgb 11.8 (baseline appears ~10-11), platelets 295, coagulation studies WNL, electrolytes WNL, Cr 1.34 (baseline appears ~1.3-1.5), troponin neg, BNP neg, and UA neg. CXR neg. Doppler of left LE neg. CTAP showed bilateral nephrolithiasis, subcutaneous stranding of the skin of the lower anterior abdominal wall which may represent a cellulitis/edema, and stable left ovarian cyst. Pt received 40 mg IV lasix and 2g ceftriaxone in the ER. Principal Diagnosis left lower extremity cellulitis Discharge Exam The patient is awake, alert and oriented 3, well developed and well nourished, normocephalic and atraumatic, lying in bed and in no acute distress. HEENT--PERRL, EOMI, mucous membranes and oropharynx mildly dry Neck--supple. No JVD. No bruits. Thyroid normal, trachea midline, no adenopathy. Heart--normal S1 and S2. No murmurs, rubs or gallops. Lungs--clear bilaterally, no respiratory distress, no accessory muscle use. Abdomen--normal bowel sounds and soft. Mild epigastric and left sided abdominal pain Extremities--no cyanosis or clubbing. No edema. Dermatologic--stasis dermatitis. Neurologic--cranial nerves II through XII grossly intact. Rheumatologic--normal range of motion. Psychiatric--normal affect. Discharge Data Allergies Allergy/AdvReac Type Severity Reaction Status Date / Time Corticosteroids Allergy Intermediate RASH Verified 01/15/23 15:23 (Glucocorticoids) morphine Allergy Intermediate MOUTH Verified 01/15/23 15:23 SWELLS/FACE SWELLS orange Allergy Intermediate HIVES Verified 01/15/23 15:23 Penicillins Allergy Intermediate RASH/HIVES Verified 01/15/23 15:23 prednisone Allergy Intermediate RED RASH Verified 01/15/23 15:23 adhesive Allergy Mild Skin rash Verified 01/15/23 15:23 localized zolpidem Allergy Unknown UNSURE Verified 01/15/23 15:23 pregabalin AdvReac Intermediate GOOFY Verified 01/15/23 15:23 Consultations 01/15/23 15:26 ED Decision to Admit Stat Ordered Studies 01/15/23 12:57 US venous doppler LE LT Stat 01/15/23 13:02 CT abd pelvis IV con only Stat 01/16/23 14:38 CT head/brain wo con Urgent Hospital Course (1) Edema of left lower extremity: Pt is a 62 yo female with PMH of anemia, HFpEF, CKD stage 3, CVA/TIA? in 2017, HLD, HTN, and peripheral neuropathy who presents to the hospital from her PCP office due to concerns for CHF exacerbation and DVT/PE. chest pain: Patient complained of substernal chest pressure this morning said it has been going on and off for a few weeks Stat EKG did not show any ST changes, only evidence of age inderterminate infarc t. Trop was normal 2 D ECHO did not show any wall motion abnormality, EF 55-60% She follow up with cardiology outpatient Dyspnea on exertion - possible etiologies include acute on ?chronic HFpEF, obesity hypoventilation syndrome, - CXR neg; no wheezing or crackles heard on lung exam - last echo 09/2021 showed EF 60-65% w/o significant LV disease; repeat pending - s/p 40 mg IV lasix in ER, continue diuresis with IV lasix 40 mg BID Cellulitis - present on left lower extremity and abdominal pannus - CTAP showed findings consistent with overlying cellulitis -- left lower extremity doppler negative for DVT - s/p 2g ceftriaxone ER (first day 01/15) - will continue tx with ceftriaxone 2g daily HTN - chronic and uncontrolled with new addition ~2 weeks ago of hydralazine 50 mg BID - suspect untreated ANDRZEJ may be contributing to hard to treat BP - continue home medications: hydralazine 50 mg BID, spironolactone 25 mg BID - despite CKD, may be beneficial to consider use of ACEi/ARB for further BP control CKD, stage 3 - Cr stable and at baseline - in the setting of additional diuresis, continue to follow kidney function Untreated ANDRZEJ - pt previously compliant with CPAP but w/o due to machine recalls - encouraged pt to discuss new CPAP machine with PCP Diet: heart healthy DVT ppx: lovenox BID Code: full Dispo: admit to med/surg (2) Cellulitis: (3) Chronic venous stasis dermatitis of both lower extremities: (4) Severe obstructive sleep apnea: (5) Asthma: (6) Chronic ulcer of left foot: (7) Morbid obesity with BMI of 50.0-59.9, adult: (8) CKD (chronic kidney disease) stage 3, GFR 30-59 ml/min: (9) Hypertension: (10) History of CVA (cerebrovascular accident): Plan continue to monitor Total Time Total Time Spent Total Time Spent (In Minutes): 35 Discharge Plan Discharge Items Patient Disposition: Home - Self-Care Reason For Visit: FLUID OVERLOAD Discharge Diagnosis: left lower extremity cellulitis Activity: Resume your previous activity Non-emergency contact: Primary Care Provider and [employer] Call non-emergency contact if: you have any medication questions and your symptoms worsen Follow-up/Referrals: Etelvina Cazares DO [Primary Care Provider] - Diet: Heart Healthy Addtl Attending Provider Instructions: please make appointment to follow up with your outside sales representative Pending Studies at Discharge: No Stand-Alone Forms: [facility] A Fourth Act, Smoking Cessation Medications and DC Order Prescriptions: New cephalexin 500 mg capsule 500 mg PO BID 5 Days Qty: 10 0RF Continued albuterol sulfate [Ventolin HFA] 90 mcg/actuation HFA aerosol inhaler 2 puff INHALATION Q4H PRN (Reason: Shortness Of Breath Or Wheezing) Qty: 18 3RF cholecalciferol (vitamin D3) [Vitamin D3] 50 mcg (2,000 unit) capsule 2,000 unit PO TID Qty: 270 1RF multivitamin Tablet 1 tab PO QAM Qty: 90 1RF acetaminophen 500 mg tablet 1,000 mg PO Q4H PRN (Reason: fever or pain) Qty: 90 0RF spironolactone 25 mg tablet 25 mg PO BID Qty: 60 11RF montelukast 10 mg tablet 10 mg PO QPM Qty: 90 1RF bupropion HCl 300 mg tablet extended release 24 hr 300 mg PO QAM Qty: 90 1RF potassium chloride [Klor-Con M20] 20 mEq tablet,ER particles/crystals 40 meq PO BID Qty: 120 1RF bumetanide 1 mg tablet 1 mg PO BID Qty: 60 5RF buspirone 15 mg tablet 15 mg PO TID Qty: 270 1RF gabapentin 300 mg capsule 300 mg PO TID Qty: 270 1RF allopurinol 100 mg tablet 100 mg PO BID Qty: 180 1RF duloxetine 60 mg capsule,delayed release(DR/EC) 60 mg PO QAM Qty: 90 1RF metoclopramide HCl 5 mg tablet 5 mg PO DAILY Rx Instructions: last taken months ago hydralazine 50 mg tablet 50 mg PO BID Qty: 60 11RF fluticasone propion-salmeterol [Advair Diskus] 250-50 mcg/dose blister with device 1 inh inhalation BID Qty: 1 11RF cetirizine [Zyrtec] 10 mg tablet 10 mg PO DAILY Qty: 90 1RF pantoprazole 40 mg tablet,delayed release (DR/EC) 40 mg PO BID Qty: 180 1RF albuterol sulfate 2.5 mg /3 mL (0.083 %) solution for nebulization 2.5 mg inhalation Q6H PRN (Reason: Shortness Of Breath) cyanocobalamin (vitamin B-12) [Vitamin B-12] 1,000 mcg tablet 1,000 mcg PO QAM calcium carbonate [Tums] 300 mg (750 mg) tablet,chewable 900 mg PO QAM famotidine 20 mg tablet 20 mg PO HS doxycycline monohydrate 100 mg capsule 100 mg PO BID Rx Instructions: STARTED 01/07/23 FOR 4 WEEKS. Discharge Orders: Discharge Order (Routine); Ordered 01/17/23 Ordered By: Leonel Uriarte/Other Patient Handouts: ED Cellulitis Admission Data Admit Date/Time: 01/15/23 17:06 Attending Provider: Leonel Boyd Admit Provider: Isabel Coats Primary Care Provider: Etelvina Cazares Other Providers: Chris Howell Other Interventions: Discharge Summary Assessment (RN) Last Done: 01/17/23 10:28 Coding Level of Care Code 39225 INP/OBS DISCH >30 MIN Diagnoses Edema of left lower extremity R60.0 Cellulitis L03.116 Site of cellulitis: extremity Site of cellulitis of extremity: lower extremity Laterality: left Chronic venous stasis dermatitis of both lower extremities I87.2 Severe obstructive sleep apnea G47.33 Asthma J45.909 Chronic ulcer of left foot L97.529 Non-pressure ulcer stage: unspecified non-pressure ulcer stage Morbid obesity with BMI of 50.0-59.9, adult E66.01; Z68.43 CKD (chronic kidney disease) stage 3, GFR 30-59 ml/min N18.32 Chronic kidney disease stage 3 subtype: stage 3b (GFR 30-44) Hypertension I10 History of CVA (cerebrovascular accident) Z86.73 Time Spent (min) 35
--- NOTE | 2023-01-18 17:07 | Electrocardiogram Report ---
Test Reason : Blood Pressure : / mmHG Vent. Rate : 076 BPM Atrial Rate : 076 BPM P-R Int : 154 ms QRS Dur : 084 ms QT Int : 396 ms P-R-T Axes : -06 -28 -05 degrees QTc Int : 445 ms Normal sinus rhythm Minimal voltage criteria for LVH, may be normal variant Inferior infarct , age undetermined Anteroseptal infarct (cited on or before 01-OCT-2017) Nonspecific T wave abnormality Abnormal ECG When compared with ECG of 16-SEP-2021 12:09, No significant change Confirmed by Jai Watkins ([id number]) on 01/18/2023 5:06:52 PM Referred By: Isidra Ogden Confirmed By:Jai Watkins
--- NOTE | 2023-01-18 20:26 | Electrocardiogram Report ---
Test Reason : Blood Pressure : / mmHG Vent. Rate : 080 BPM Atrial Rate : 080 BPM P-R Int : 158 ms QRS Dur : 084 ms QT Int : 392 ms P-R-T Axes : 055 -25 008 degrees QTc Int : 452 ms Normal sinus rhythm Inferior infarct (cited on or before 23-JUL-2017) Anteroseptal infarct (cited on or before 01-OCT-2017) Abnormal ECG When compared with ECG of 15-JAN-2023 12:11, No significant change was found Confirmed by Jai Watkins ([id number]) on 01/18/2023 8:26:18 PM Referred By: Isidra Ogden Confirmed By:Jai Watkins
== END 2023-01-17 13:13 | disposition home or self-care (01) | DRG 602 ==
LOC: ED 11:46 → 3E 17:06 → SUATTDRO 17:06 → INTOOBSV 17:06 → 3E 20:19

== ENCOUNTER 2023-08-23 14:49 | Inpatient (IN) ==
[2023-08-23 16:09] LABS: Basophils # (auto) 0.04 K/uL (0.00-0.20); Basophils % (auto) 0.4 %; Eosinophils # (auto) 0.53 K/uL (0.00-0.50); Eosinophils % (auto) 5.4 %; Hematocrit (blood only) 40.9 % (37.0-47.0); Hemoglobin 12.9 g/dl (12.0-16.0); Immature Granulocytes # (auto) 0.02 K/uL (0.01-0.20); Immature Granulocytes % (auto) 0.2 %; Lymphocytes % (auto) 18.3 %; Mean Corpuscular Hemoglobin 27.3 pg (25.0-34.0); Mean Corpuscular Hgb Conc 31.5 g/dL (32.0-36.0); Mean Corpuscular Volume 86.5 fL (80.0-100.0); Mean Platelet Volume 9.8 fL (9.4-12.4); Monocytes # (auto) 0.59 K/uL (0.11-0.59); Neutrophils # (auto) 6.84 K/uL (1.40-6.50); Neutrophils % (auto) 69.7 %; Platelet Count 305 K/uL (130-400); RDW Coefficient of Variation 15.2 % (11.5-14.5); RDW Standard Deviation 47.8 fL (36.4-46.3); Red Blood Count 4.73 M/uL (4.20-5.40); White Blood Count 9.82 K/ul (4.8-10.8)
[2023-08-23 16:23] LABS: Alanine Aminotransferase 16 U/L (7-52); Albumin Level 3.8 gm/dl (3.4-5.0); Alkaline Phosphatase 90 U/L (34-104); Anion Gap 5 (3-11); Aspartate Aminotransferase 19 U/L (13-39); BUN Creatinine Ratio 9.2 (10-20); Bilirubin,Total 0.4 mg/dl (0.2-1.0); Blood Urea Nitrogen 13 mg/dl (6-23); Carbon Dioxide 33 mmol/L (21-32); Chloride 100 mmol/L (98-107); Est GFR (African American) 46.4 ml/min; Globulin 3.8 gm/dl (2.5-4.0); Glucose 98 mg/dl (70-99(Fasting)); Potassium 3.9 mmol/L (3.5-5.1); Sodium 138 mmol/L (136-145); Total Protein 7.6 gm/dl (6.0-8.3)
--- NOTE | 2023-08-23 16:23 | XRay Report ---
XR chest 1V not portable CLINICAL HISTORY: Chest pain, nonspecific TECHNIQUE: Single frontal radiograph of the chest was obtained. Comparison: Comparison is made to chest radiograph 07/03/2023 FINDINGS: Right shoulder reverse arthroplasty is seen. The cardiomediastinal silhouette is stable. The lungs ar e clear. No evidence of pleural effusion or pneumothorax. IMPRESSION: No acute chest disease. ACT 112: Negative or not required by law. Electronically signed by: Christian Duran M.D. 08/23/2023 4:22 PM
[2023-08-23 16:31] LABS: Troponin I High Sensitivity 5.3 pg/ml (0-14)
[2023-08-23 16:38] LABS: Partial Thromboplastin Ratio 1.1; Partial Thromboplastin Time 32 Seconds (21-31); Prothrombin Time 11.1 Seconds (9.0-12.0)
--- NOTE | 2023-08-23 17:30 | Emergency Department Note ---
History of Present Illness General Chief complaint: Swelling/Edema to Extremity Stated complaint: TROUBLE BREATHING,STOMACH PAIN Time Seen by Provider: 08/23/23 17:10 Source: patient, RN notes reviewed and old records reviewed (Cardiology office visit on 07-05-2023 for CHF) Mode of arrival: ambulatory Limitations: no limitations History of Present Illness Maximum Pain Intensity: 9 This patient 62-year-old female who comes in after having extensive swelling of her abdomen and legs. This been going on for 2 to 3 weeks but worse over the last couple days she is on Bumex twice a day as well as spironolactone. She has not been weighing herself but she estimates she may have gained up to 50 pounds. She has had some increasing shortness of breath no fever she says her pannus is gotten significant larger and irritated. No nausea or vomiting she says she cannot eat however because it is uncomfortable due to her large pannus. She called Dr. Cazares who recommend she come to the ER and felt she would likely need IV Lasix and admission according to the patient. Home Medications Medication Instructions Recorded Confirmed Type fluticasone 250 mcg-salmeterol 50 1 inh inhalation BID #1 inhaler 06/25/21 08/23/23 Rx mcg/dose blistr powdr for inhalation (Advair Diskus) cholecalciferol (vitamin D3) 50 2,000 unit PO TID #270 caps 07/18/21 08/23/23 Rx mcg (2,000 unit) capsule (Vitamin D3) acetaminophen 500 mg tablet 1,000 mg (2 x 500 mg) PO Q4H PRN 09/16/21 08/23/23 Rx fever or pain #90 tabs calcium carbonate (Tums) 900 mg PO QAM 03/03/22 08/23/23 History cyanocobalamin (vitamin B-12) 1,000 mcg PO QAM 03/03/22 08/23/23 History 1,000 mcg tablet (Vitamin B-12) cetirizine 10 mg tablet (Zyrtec) 10 mg PO DAILY #90 tabs 07/03/22 08/23/23 Rx buspirone 15 mg tablet 15 mg PO TID #270 tabs 11/20/22 08/23/23 Rx gabapentin 300 mg capsule 300 mg PO TID #270 caps 12/14/22 08/23/23 Rx TENS unit electrodes #1 ea 02/02/23 07/12/23 Rx bupropion HCl 300 mg 24 hr tablet, 300 mg PO QAM #90 tabs 02/08/23 08/23/23 Rx extended release montelukast 10 mg tablet 10 mg PO QPM #90 tabs 02/08/23 08/23/23 Rx doxycycline monohydrate 100 mg 100 mg PO BID #180 caps 03/19/23 08/23/23 Rx capsule famotidine 20 mg tablet 20 mg PO HS #90 tabs 03/23/23 08/23/23 Rx bumetanide 1 mg tablet 2 mg (2 x 1 mg) PO BID #360 tabs 04/28/23 08/23/23 Rx allopurinol 100 mg tablet 100 mg PO BID #180 tabs 05/04/23 08/23/23 Rx pantoprazole 40 mg tablet,delayed 40 mg PO BID #180 tabs 05/26/23 08/23/23 Rx release albuterol sulfate 2.5 mg/3 mL 2.5 mg (3 mL) inhalation Q6H PRN 06/25/23 08/23/23 Rx (0.083 %) solution for nebulization Shortness Of Breath #90 mL albuterol sulfate 90 mcg/actuation 2 puff inhalation Q4H PRN 06/25/23 08/23/23 Rx aerosol inhaler (Ventolin HFA) Shortness Of Breath Or Wheezing #18 grams aspirin 81 mg tablet,delayed 81 mg PO DAILY 06/25/23 08/23/23 History release duloxetine 60 mg capsule,delayed 60 mg PO BID 06/25/23 08/23/23 History release multivitamin 1 tab PO QAM #90 tabs 06/25/23 08/23/23 Rx spironolactone 50 mg tablet 50 mg PO BID 06/25/23 08/23/23 History Klor-Con M20 20 mEq See Rx Instructions PO BID #120 06/30/23 08/23/23 Rx tablet,extended release (potassium tabs chloride) tramadol 50 mg tablet See Rx Instructions PO Q6H PRN 07/27/23 08/23/23 Rx pain #90 tabs Allergies Allergy/AdvReac Type Severity Reaction Status Date / Time Corticosteroids Allergy Intermediate RASH Verified 07/12/23 10:06 (Glucocorticoids) morphine Allergy Intermediate MOUTH Verified 07/12/23 10:06 SWELLS/FACE SWELLS orange Allergy Intermediate HIVES Verified 07/12/23 10:06 Penicillins Allergy Intermediate RASH/HIVES Verified 07/12/23 10:06 prednisone Allergy Intermediate RED RASH Verified 07/12/23 10:06 adhesive Allergy Mild Skin rash Verified 07/12/23 10:06 localized zolpidem Allergy Unknown UNSURE Verified 07/12/23 10:06 pregabalin AdvReac Intermediate GOOFY Verified 07/12/23 10:06 Past Med/Surg History Medical History History of revision of total replacement of left knee joint Fatty liver Dependent lymphedema Stage 3b chronic kidney disease History of COVID-19 09/2021 at [facility] [place], while you being for the knee infection. Anemia reason for procedure. iron infusions recently. Septic arthritis Sepsis 09/2021 r/t left knee infection Dyslipidemia Hypertension Chronic heart failure with preserved ejection fraction Iron deficiency anemia Venous stasis of both lower extremities Morbid obesity with BMI of 50.0-59.9, adult MDD (major depressive disorder), recurrent episode, moderate Ambulatory dysfunction Prediabetes MRSA (methicillin resistant staph aureus) culture positive 09/2021 s/p left knee infection History of CVA (cerebrovascular accident) states it was a "mini stroke" 2017 Other ovarian cyst, left side Peripheral neuropathy Lumbar spinal stenosis Depression with anxiety Degenerative joint disease, shoulder, right Chronic cutaneous venous stasis ulcer hx -- has since resolved. 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- DISCOVERED WITH INCIDENTAL IMAGING Lymphedema left side Gout Asthma Hyperlipidemia CKD (chronic kidney disease) stage 3, GFR 30-59 ml/min monitoring Chronic back pain Acid reflux TIA (transient ischemic attack) 2017- On Plavix Surgical History History of bilateral knee replacement (10/16/22) H/O knee surgery (12/2021) L knee washout w/ polyexchange S/P tonsillectomy and adenoidectomy Status post total shoulder arthroplasty (10/17/18) R History of carpal tunnel release B/L H/O ventral hernia repair History of appendectomy History of cholecystectomy Family History Mother Diabetes Coronary heart disease Myocardial infarction S/P CABG x 3 Hypertension Gallbladder disease Sister Hodgkins lymphoma Brother Kidney disease Grandmother Breast cancer Aunt Ovarian cancer Father , 02/11/20. Peripheral vascular disease Daughter Diabetes Other Cancer No family history of adverse response to anesthesia Denies family history of Prostate cancer Colorectal cancer Social History Smoking Status: Former smoker Tobacco Type: Cigarettes Age Started Using Tobacco: 22; Age Quit Using Tobacco: 24; Second Hand Exposure: No; Do You Dip or Chew Tobacco: No; Hx Alcohol Use: No Hx Substance Use: No Preferred Language: Trinidadian 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 Ability: Effective Visual Impairment: Limited Hearing Ability: Normal Network Security Administrator Required: No Beliefs That Will Affect Care: None marital status: marital status details: ; lives with parents & 1 daughter Current Living Situation: Family Current Living Situation Comment: daughter and mom current occupational status: disabled other: worked in [employer] in [employer]; worked for [employer] Feels Safe at Home: Yes Childhood Exposure to Second-Hand Smoke: No Diet: regular Diet Comment: regular caffeine: No Dental Care, Regularly: No Physical Activity Frequency: Does not Exercise Seatbelt Use: always Sunscreen Use: Yes Assistive Devices: CPAP, Denture - Upper, Glasses, Nebulizer and Walker Review of Systems A total of 10 systems reviewed and were otherwise negative Physical Exam Vital Signs Vital Signs - 24 hr 08/23/23 15:01 08/23/23 19:08 Temperature 36.2 C L Temperature Source Temporal Artery Scan Pulse Rate 98 H Pulse Rate [Finger] 77 Pulse Rhythm Regular Pulse Rhythm [Finger] Regular Pulse Strength Normal Respiratory Rate 20 20 Respiratory Effort / Characteristics Non-Labored Spontaneous Non-Labored Respiratory Depth Normal Normal Respiratory Pattern Regular Regular Blood Pressure 109/75 Blood Pressure [Left Arm] 122/74 Blood Pressure Mean 86 Blood Pressure Mean [Left Arm] 90 Pulse Oximetry 98 96 Oxygen Delivery Method Room Air Room Air Sepsis Recent Fever Within 48 Hours No Sepsis New/Unexplained Change in Mental Status No Sepsis Action Taken by Nursing No Action Required General: Well developed well nourished chronically ill-appearing older female who appears in no acute distress, breathing comfortably on room air. Normal speech HEENT: Normal cephalic atraumatic. Pupils are equal round and reactive to light. Extraocular movements are intact. Oropharynx is pink with moist mucous membranes. No swelling of the mouth lips or tongue. Neck: Supple with a midline trachea. No meningeal signs or stiffness, no JVD or bruits. No Stridor. Chest: Clear to auscultation bilaterally. No wheezes or rhonchi. No increased work of breathing. Heart: Regular rate and rhythm without murmurs or gallops. Abdomen: Soft nontender, nondistended without rebound guarding or rigidity. There is a very large somewhat edematous pannus that extends below her knees Extremities: She does have edema left greater than right. no calf tenderness or assymetry Spine/Back. Non tender to palpation. No CVA tenderness Skin: Good turgor without rashes. Neurologic exam: Cranial nerves two through 12 are intact. Motor and sensation are intact and symmetrical throughout. Course Administered Medications Discontinued Medications Bumetanide 1 mg/ Syringe 4 mls @ 4 mls/min IV ONE ONE Stop: 08/23/23 17:24 Last Admin: 08/23/23 21:11 Dose: 4 mls/min Documented By: BRYN Medical Decision Making Differential Diagnosis CHF, fluid overload, electrolyte or metabolic abnormality, cardiac disease Medical Records Attestation: I reviewed the patient's medical records. Home Medications Current Medication List: was personally reviewed by me Laboratory Data Attestation: I reviewed the patient's lab results. 08/23/23 15:50 08/23/23 15:50 Lab Results 08/23/23 Range/Units 15:50 WBC 9.82 (4.8-10.8) K/ul RBC 4.73 (4.20-5.40) M/uL Hgb 12.9 (12.0-16.0) g/dl Hct 40.9 (37.0-47.0) % MCV 86.5 (80.0-100.0) fL MCH 27.3 (25.0-34.0) pg MCHC 31.5 L (32.0-36.0) g/dL RDW Std Deviation 47.8 H (36.4-46.3) fL RDW Coeff of Cleo 15.2 H (11.5-14.5) % Plt Count 305 (130-400) K/uL MPV 9.8 (9.4-12.4) fL Immature Gran % (Auto) 0.2 % Neut % (Auto) 69.7 % Lymph % (Auto) 18.3 % [place] % (Auto) 6.0 % Eos % (Auto) 5.4 % Baso % (Auto) 0.4 % Neut # (Auto) 6.84 H (1.40-6.50) K/uL Lymph # (Auto) 1.80 (1.20-3.40) K/uL [place] # (Auto) 0.59 (0.11-0.59) K/uL Eos # (Auto) 0.53 H (0.00-0.50) K/uL Baso # (Auto) 0.04 (0.00-0.20) K/uL Immature Gran # (Auto) 0.02 (0.01-0.20) K/uL ESR 65 H (0-30) mm/hr PT 11.1 (9.0-12.0) Seconds INR 1.0 (0.9-1.1) APTT 32 H (21-31) Seconds PTT Ratio 1.1 Sodium 138 (136-145) mmol/L Potassium 3.9 (3.5-5.1) mmol/L Chloride 100 (98-107) mmol/L Carbon Dioxide 33 H (21-32) mmol/L Anion Gap 5 (3-11) BUN 13 (6-23) mg/dl Creatinine 1.42 H (0.6-1.2) mg/dl Est Cr Clr Drug Dosing Not Reportable Est GFR ( Amer) 46.4 ml/min Est GFR (Non-Af Amer) 40.0 ml/min BUN/Creatinine Ratio 9.2 L (10-20) Glucose 98 (70-99(Fasting)) mg/dl Calcium 9.0 (8.6-10.3) mg/dl Magnesium 1.7 (1.7-2.4) mg/dl Total Bilirubin 0.4 (0.2-1.0) mg/dl AST 19 (13-39) U/L ALT 16 (7-52) U/L Alkaline Phosphatase 90 (34-104) U/L Troponin I High Sens 5.3 (0-14) pg/ml C-Reactive Protein 4.32 H (0-0.5) mg/dl B-Natriuretic Peptide 6 (0-100) pg/ml Total Protein 7.6 (6.0-8.3) gm/dl Albumin 3.8 (3.4-5.0) gm/dl Globulin 3.8 (2.5-4.0) gm/dl Albumin/Globulin Ratio 1.0 (0.9-2) Imaging Data Attestation: I personally reviewed and interpreted this imaging study as follows: My Impression: Chest x-rayno acute infiltrate, failure, pneumothorax. There is some mild increased interstitial markings Radiologist's Impression: Chest X-Ray 08/23/23 15:04 XR chest 1V not portable CLINICAL HISTORY: Chest pain, nonspecific TECHNIQUE: Single frontal radiograph of the chest was obtained. Comparison: Comparison is made to chest radiograph 07/03/2023 FINDINGS: Right shoulder reverse arthroplasty is seen. The cardiomediastinal silhouette is stable. The lungs are clear. No evidence of pleural effusion or pneumothorax. IMPRESSION: No acute chest disease. ACT 112: Negative or not required by law. Electronically signed by: Christian Duran M.D. 08/23/2023 4:22 PM ECG Data Attestation: I personally reviewed and interpreted this ECG as follows: Indication: + SOB/dyspnea Rate (beats per minute): 96 Rhythm: + normal sinus ECG Intervals/blocks: + Normal QRS, + Normal QT and + Normal MI ECG [place]: + Normal ECG ST segments: + Normal ST segments ECG Findings: + Poor R wave progression; no PACs or no PVCs Comparison ECG Date: from (07/03/2023) Change: no significant change MDM Narrative This patient comes in described above. I saw her in the [place]. She had a significant weight gain she has some increasing shortness of breath she has a been fluid overloaded. She has had increased size in her pannus and lower extremity edema. She is been taking her Bumex and spironolactone at home. IV access was established and did order 1 mg of IV Bumex. Chest x-ray shows no overt CHF. she may have some mild CHF. She has no significant electrolyte or metabolic abnormality has chronic renal insufficiency. EKG shows no ischemic changes. Given her significant weight gain and difficulty with this at home. I do think she needs to be admitted/observed for further IV diuresis. [facility] Impression & Plan CHF (congestive heart failure), Lower extremity edema, Hypertension, Weakness Discharge Plan Visit Data Chief Complaint: Swelling/Edema to Extremity Stated Complaint: TROUBLE BREATHING,STOMACH PAIN ED Provider: Jevon Ng Discharge Problem: CHF (congestive heart failure), Lower extremity edema, Hypertension, Weakness Discharge Instructions Interventions: ED Discharge Assessment Last Done: 08/23/23 22:47 Discharge Problem: CHF (congestive heart failure) Qualifiers: Heart failure type: unspecified Heart failure chronicity: acute on chronic Q ualified Code(s): I50.9 - Heart failure, unspecified Hypertension Qualifiers: Hypertension type: unspecified Qualified Code(s): I10 - Essential (primary) hypertension
--- NOTE | 2023-08-23 18:34 | History & Physical Report ---
Date of Service August 23, 2023 Assessment & Plan (1) Acute on chronic heart failure with preserved ejection fraction: Plan: Worsening HAYES Last echo on 01/16/2023 revealed LVEF at 60-65% BNP WNL Strict I&O monitoring Daily weights 1500 mL fluid restrict Increase Bumex to 4mg IV BID, consider adding metolazone if not effective Consult [facility] CHF (2) Abdominal pannus: Plan: Significant swelling/pain of the abdominal pannus over the past 2 weeks; patient reports that it is tripled in size Suspect increase in size due to HFpEF as above Continue spironolactone Continue potassium supplementation Acetaminophen as needed for pain 1-5 Tramadol q4h as needed for pain 6-10 CRP and ESR ordered, pending No signs of acute panniculitis on physical exam; given no leukocytosis, will defer antibiotics at this time (3) Severe obstructive sleep apnea: Plan: Patient has an upcoming sleep study Amenable to using CPAP HS while inpatient (4) History of sepsis: Plan: 09/2021 left knee infection Continue doxycycline as chronic suppressive therapy (5) Lower extremity edema: Plan: Clinically, suspect venous stasis (6) Stage 3b chronic kidney disease: (7) Morbid obesity with BMI of 50.0-59.9, adult: (8) Hypertension: Plan Disposition: Admit to [facility] telemetry Full code AHA, low-sodium diet (1500 mL fluid restriction) VTE PPx: Heparin 7500u SQ q12h History of Present Illness Chief Complaint: Swelling/Edema to Extremity Primary Care Provider: Etelvnia Cazares DO Trevor is a 62yo female with PMH of HFpEF, CAD, arthritis, CVA, CKD stage III, DJD, and severe ANDRZEJ. She presented for increased swelling in the abdomen and left lower leg, with associated shortness of breath on 08/22. Patient reports that her abdominal pannus has tripled in size over the past 2 weeks. This has put increased pain on her lower extremities bilaterally, and her legs completely numb. She endorses pain along the crease of her abdominal pannus, which she describes as a burning, constant pain; rates it 10/10 at present. She has been taking tramadol (50 mg x 2 tablets) every 6 hours, which does not help. Patient notes increased dyspnea on exertion as well. She ambulates with a walker at baseline. She had a fall last week (was not using walker at time); no head strike; struck her right knee. No supplemental oxygen at home. Patient reports that she took her regular morning medications today, and that there have been no recent change in medications. She takes Bumex 1mg tablets 4 times daily. Last BM was yesterday. Patient's SpO2 was 98% on RA at time of admission; vitals otherwise stable. ED course: Bumex 1mg IV ROS: Patient endorses headache, dizziness with standing, HAYES, abdominal pain, trouble eating (4 after the first few bites), nausea, and numbness in the lower extremities bilaterally. Patient denies fever, chills, night sweats, chest pain, chest palpitations, cough, pleuritic CP, SOB at rest, vomiting, diarrhea, urinary symptoms, or blood in the urine/stool. Allergies Allergy/AdvReac Type Severity Reaction Status Date / Time Corticosteroids Allergy Intermediate RASH Verified 08/24/23 01:40 (Glucocorticoids) morphine Allergy Intermediate MOUTH Verified 08/24/23 01:40 SWELLS/FACE SWELLS orange Allergy Intermediate HIVES Verified 08/24/23 01:40 Penicillins Allergy Intermediate RASH/HIVES Verified 08/24/23 01:40 prednisone Allergy Intermediate RED RASH Verified 08/24/23 01:40 adhesive Allergy Mild Skin rash Verified 08/24/23 01:40 localized zolpidem Allergy Unknown UNSURE Verified 08/24/23 01:40 pregabalin AdvReac Intermediate GOOFY Verified 08/24/23 01:40 Home Medications Medication Instructions Recorded Confirmed Type fluticasone 250 mcg-salmeterol 50 1 inh inhalation BID #1 inhaler 06/25/21 08/23/23 Rx mcg/dose blistr powdr for inhalation (Advair Diskus) cholecalciferol (vitamin D3) 50 2,000 unit PO TID #270 caps 07/18/21 08/23/23 Rx mcg (2,000 unit) capsule (Vitamin D3) acetaminophen 500 mg tablet 1,000 mg (2 x 500 mg) PO Q4H PRN 09/16/21 08/23/23 Rx fever or pain #90 tabs calcium carbonate (Tums) 900 mg PO QAM 03/03/22 08/23/23 History cyanocobalamin (vitamin B-12) 1,000 mcg PO QAM 10/18/22 04/08/24 History 1,000 mcg tablet (Vitamin B-12) cetirizine 10 mg tablet (Zyrtec) 10 mg PO DAILY #90 tabs 07/03/22 08/23/23 Rx buspirone 15 mg tablet 15 mg PO TID #270 tabs 11/20/22 08/23/23 Rx gabapentin 300 mg capsule 300 mg PO TID #270 caps 12/14/22 08/23/23 Rx TENS unit electrodes #1 ea 02/02/23 07/12/23 Rx bupropion HCl 300 mg 24 hr tablet, 300 mg PO QAM #90 tabs 02/08/23 08/23/23 Rx extended release montelukast 10 mg tablet 10 mg PO QPM #90 tabs 02/08/23 08/23/23 Rx doxycycline monohydrate 100 mg 100 mg PO BID #180 caps 03/19/23 08/23/23 Rx capsule famotidine 20 mg tablet 20 mg PO HS #90 tabs 03/23/23 08/23/23 Rx bumetanide 1 mg tablet 2 mg (2 x 1 mg) PO BID #360 tabs 04/28/23 08/23/23 Rx allopurinol 100 mg tablet 100 mg PO BID #180 tabs 05/04/23 08/23/23 Rx pantoprazole 40 mg tablet,delayed 40 mg PO BID #180 tabs 05/26/23 08/23/23 Rx release albuterol sulfate 2.5 mg/3 mL 2.5 mg (3 mL) inhalation Q6H PRN 06/25/23 08/23/23 Rx (0.083 %) solution for nebulization Shortness Of Breath #90 mL albuterol sulfate 90 mcg/actuation 2 puff inhalation Q4H PRN 06/25/23 08/23/23 Rx aerosol inhaler (Ventolin HFA) Shortness Of Breath Or Wheezing #18 grams aspirin 81 mg tablet,delayed 81 mg PO DAILY 06/25/23 08/23/23 History release duloxetine 60 mg capsule,delayed 60 mg PO BID 06/25/23 08/23/23 History release multivitamin 1 tab PO QAM #90 tabs 06/25/23 08/23/23 Rx spironolactone 50 mg tablet 50 mg PO BID 06/25/23 08/23/23 History Klor-Con M20 20 mEq See Rx Instructions PO BID #120 06/30/23 08/23/23 Rx tablet,extended release (potassium tabs chloride) tramadol 50 mg tablet See Rx Instructions PO Q6H PRN 07/27/23 08/23/23 Rx pain #90 tabs Past Med/Surg History Medical History History of revision of total replacement of left knee joint Fatty liver Dependent lymphedema Stage 3b chronic kidney disease History of COVID-19 09/2021 at [facility] [place], while you being for the knee infection. Anemia reason for procedure. iron infusions recently. Septic arthritis Sepsis 09/2021 r/t left knee infection Dyslipidemia Hypertension Chronic heart failure with preserved ejection fraction Iron deficiency anemia Venous stasis of both lower extremities Morbid obesity with BMI of 50.0-59.9, adult MDD (major depressive disorder), recurrent episode, moderate Ambulatory dysfunction Prediabetes MRSA (methicillin resistant staph aureus) culture positive 09/2021 s/p left knee infection History of CVA (cerebrovascular accident) states it was a "mini stroke" 2017 Other ovarian cyst, left side Peripheral neuropathy Lumbar spinal stenosis Depression with anxiety Degenerative joint disease, shoulder, right Chronic cutaneous venous stasis ulcer hx -- has since resolved. 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- DISCOVERED WITH INCIDENTAL IMAGING Lymphedema left side Gout Asthma Hyperlipidemia CKD (chronic kidney disease) stage 3, GFR 30-59 ml/min monitoring Chronic back pain Acid reflux TIA (transient ischemic attack) 2017- On Plavix Surgical History History of bilateral knee replacement (10/16/22) H/O knee surgery (12/2021) L knee washout w/ polyexchange S/P tonsillectomy and adenoidectomy Status post total shoulder arthroplasty (10/17/18) R History of carpal tunnel release B/L H/O ventral hernia repair History of appendectomy History of cholecystectomy Family History Mother Diabetes Coronary heart disease Myocardial infarction S/P CABG x 3 Hypertension Gallbladder disease Sister Hodgkins lymphoma Brother Kidney disease Grandmother Breast cancer Aunt Ovarian cancer Father , 02/11/20. 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 Beliefs That Will Affect Care: None marital status: marital status details: ; lives with parents & 1 daughter Current Living Situation: Family Current Living Situation Comment: daughter and mom current occupational status: disabled other: worked in [place] in [employer]; worked for [employer] Feels Safe at Home: Yes Safety Concerns: Feels Safe At This Time Childhood Exposure to Second-Hand Smoke: No Diet: regular Diet Comment: regular caffeine: No Dental Care, Regularly: No Physical Activity Frequency: Does not Exercise Seatbelt Use: always Sunscreen Use: Yes Assistive Devices: Denture - Upper, Glasses and Walker Review of Systems Review of Systems: See HPI above Physical Exam Physical Exam: General: no acute distress; pleasant affect; non-toxic appearing; well- nourished; cooperative; SpO2 98% on RA HEENT: normocephalic, atraumatic; no scleral icterus; PERRLA w/ EOMs intact; moist mucus membrane; vision and hearing grossly intact Neck: supple; no lymphadenopathy; trachea midline Skin: warm, dry without signs of tenting; no cyanosis; no rashes, bruising, lesions, or erythema noted CV: chest wall NTP; RRR; S1/S2 normal; no murmurs/rubs/gallops; pulses intact and symmetric at radial, DP, and PT Lungs: no acute respiratory distress; symmetrical chest wall expansion; clear breath sounds across all lung razo w/o adventitious sounds; no wheezing ABD: Soft, NTP; BS present; no rebound/guarding; significant distention secondary to body habitus/abdominal pannus Pannus: Mild erythema in the creases, but no signs of active infection MSK: no tics or fasciculations; +1 pitting edema in the LEs b/l Neuro: A&Ox3; normal mood and affect; fluent speech; no focal deficits; no sensation in the lower extremities bilaterally Results & Data Results & Data Vital Signs (Past 12 Hours) Vital Signs Temp Pulse Resp BP Pulse Ox O2 Del Method 08/23/23 15:01 36.2 C L 98 H 20 109/75 98 Room Air Laboratory Results Abnormal lab results 08/23/23 Range/Units 15:50 MCHC 31.5 L (32.0-36.0) g/dL RDW Std Deviation 47.8 H (36.4-46.3) fL RDW Coeff of Cleo 15.2 H (11.5-14.5) % Neut # (Auto) 6.84 H (1.40-6.50) K/uL Eos # (Auto) 0.53 H (0.00-0.50) K/uL APTT 32 H (21-31) Seconds Carbon Dioxide 33 H (21-32) mmol/L Creatinine 1.42 H (0.6-1.2) mg/dl BUN/Creatinine Ratio 9.2 L (10-20) Diagnostic Findings Chest X-Ray 08/23/23 15:04 XR chest 1V not portable CLINICAL HISTORY: Chest pain, nonspecific TECHNIQUE: Single frontal radiograph of the chest was obtained. Comparison: Comparison is made to chest radiograph 07/03/2023 FINDINGS: Right shoulder reverse arthroplasty is seen. The cardiomediastinal silhouette is stable. The lungs are clear. No evidence of pleural effusion or pneumothorax. IMPRESSION: No acute chest disease. ACT 112: Negative or not required by law. Electronically signed by: Christian Duran M.D. 08/23/2023 4:22 PM Code Status & VTE Plan Code Status Full code VTE Prophylaxis Plan VTE Prophylaxis will be ordered: Yes Supervising Physician Co-Signing Physician Notes I personally saw and examined the patient. I independently reviewed the labs, EKG, imaging, problem list, medication list, past medical history and family h istory. I verified all mae points and agree with Ji Kan PA-C with the following exceptions and/or additions: 8-year-old female with heart failure with preserved ejection fraction presents to the ER with weight gain (30lb), swelling of the pannus, shortness of breath on exertion and bilateral leg edema. Slow progressive worsening of symptoms. O/E A&Ox3, HS RRR, no murmurs, Chest reduced breath sounds throughout, no respiratory distress, Abdomen SNT, large pannus without signs of infection either fungal or bacterial but mildly erythematous with pitting edema, B/l pitting edema 3+ to abdomen A/P Acute on chronic HFpEF - likely obesity hypoventilation, ANDRZEJ leading to mainly right sided heart failure. Consult [facility] provider, Increase bumex to 4mg IV BID, Strict I&Os, daily weights, monitor BMP. TTE withing the last year therefore will not repeat Abdominal pannus - low suspicion of infection at this time given exam and lab work PG Care Time/CCT Total # of Minutes Spent Total Time Spent with Patient: Total time spent is greater than 50% in coordination of care (as documented) at patient's floor/unit and/or counseling patient: Coding [place] [address] INT INP/OBS CARE 3/75MIN Patient Type Established Medical Decision Making High Complexity Diagnoses Acute on chronic heart failure with preserved ejection fraction I50.33 Abdominal pannus E65 Severe obstructive sleep apnea G47.33 History of sepsis Z86.19 Lower extremity edema R60.0 Stage 3b chronic kidney disease N18.32 Morbid obesity with BMI of 50.0-59.9, adult E66.01; Z68.43 Primary hypertension I10 Hypertension type: primary hypertension (8) Hypertension Hypertension type: primary hypertension Qualified Code(s): I10 - Essential (primary) hypertension
[2023-08-23 20:58] LABS: Magnesium 1.7 mg/dl (1.7-2.4)
[2023-08-23] MEDS: BUMETANIDE 1 MG in SYRINGE 0 ML IV ONE (21:11)
[2023-08-23 22:41] LABS: C Reactive Protein 4.32 mg/dl (0-0.5)
[2023-08-23] MEDS ORDERED: ALBUTEROL HFA 8 GM INHALER INH PRN (22:47)
[2023-08-23] MEDS ORDERED: ALBUTEROL 0.083% NEBU SOLN 3 ML VIAL INH PRN (22:47)
[2023-08-24] MEDS: Patient's HEIGHT &/or WEIGHT Needed STA
[2023-08-24] MEDS: PANTOprazole 40 MG TAB PO SCH
[2023-08-24] MEDS: BUMETANIDE 2 MG in SYRINGE 0 ML IV ONE (01:42)
[2023-08-24] MEDS: HEPARIN SOD 5,000 UNIT/0.5 ML VIAL SQ SCH (01:43)
[2023-08-24] MEDS: MICONAZOLE NITRATE POWDER 85 GM EXT SCH (01:44)
[2023-08-24 04:17] LABS: Basophils # (auto) 0.05 K/uL (0.00-0.20); Basophils % (auto) 0.5 %; Eosinophils % (auto) 5.6 %; Hematocrit (blood only) 41.1 % (37.0-47.0); Hemoglobin 12.9 g/dl (12.0-16.0); Immature Granulocytes # (auto) 0.02 K/uL (0.01-0.20); Immature Granulocytes % (auto) 0.2 %; Lymphocytes # (auto) 2.29 K/uL (1.20-3.40); Lymphocytes % (auto) 21.3 %; Mean Corpuscular Hemoglobin 27.1 pg (25.0-34.0); Mean Corpuscular Hgb Conc 31.4 g/dL (32.0-36.0); Mean Corpuscular Volume 86.3 fL (80.0-100.0); Mean Platelet Volume 9.8 fL (9.4-12.4); Monocytes # (auto) 0.75 K/uL (0.11-0.59); Neutrophils # (auto) 7.03 K/uL (1.40-6.50); Neutrophils % (auto) 65.4 %; Platelet Count 334 K/uL (130-400); RDW Coefficient of Variation 15.2 % (11.5-14.5); RDW Standard Deviation 47.7 fL (36.4-46.3); Red Blood Count 4.76 M/uL (4.20-5.40); White Blood Count 10.74 K/ul (4.8-10.8)
[2023-08-24 04:23] LABS: BUN Creatinine Ratio 9.2 (10-20); C Reactive Protein 3.94 mg/dl (0-0.5); Calcium 9.1 mg/dl (8.6-10.3); Creatinine Clr Calc Pharmacy 74.9 ml/min; Est GFR (African American) 46.8 ml/min; Est GFR (Non-African American) 40.4 ml/min; Potassium 3.6 mmol/L (3.5-5.1)
[2023-08-24] MEDS: ACETAMINOPHEN 325 MG TAB PO PRN (06:02)
[2023-08-24] MEDS: DOXYCYCLINE HYCLATE 100 MG CAP PO SCH (06:37)
[2023-08-24] MEDS ORDERED: diphenhydrAMINE 50 MG/ML VIAL IV PRN (06:43)
[2023-08-24] MEDS: HYDROmorphone INJ 0.5 MG/0.5 ML SYR IV ONE (07:57)
[2023-08-24] MEDS: busPIRone 15 MG TAB PO SCH (08:15)
[2023-08-24] MEDS: allopurinoL 100 MG TAB PO SCH (08:15)
[2023-08-24] MEDS: CALCIUM CARBONATE 500 MG CHEWABLE TAB PO SCH (08:16)
[2023-08-24] MEDS: POTASSIUM CHLORIDE CRTAB 20 MEQ TABCR PO SCH ×2 (08:17→20:40)
[2023-08-24] MEDS: SPIRONOLACTONE 25 MG TAB PO SCH (08:17)
[2023-08-24] MEDS: GABAPENTIN 300 MG CAP PO SCH (08:17)
[2023-08-24] MEDS: CETIRIZINE HCL 10 MG TABLET PO SCH (08:18)
[2023-08-24] MEDS: DULoxetine HCL 60 MG CAP PO SCH (08:18)
[2023-08-24] MEDS: ASPIRIN 81 MG ECTAB PO SCH (08:18)
[2023-08-24] MEDS: buPROPion XL 300 MG TABCR PO SCH (08:18)
[2023-08-24] MEDS: FLUTICASONE/VILANTEROL 200/25MCG 14 PUFFS/INHALER INH SCH (08:19)
[2023-08-24] MEDS ORDERED: BUMETANIDE 2 MG in SYRINGE 0 ML IV SCH (09:00)
[2023-08-24] MEDS: BUMETANIDE 4 MG in SYRINGE 0 ML IV SCH (09:08)
[2023-08-24 11:20] LABS: Thyroid Stimulating Hormone 5.274 uIu/ml (0.300-4.500)
[2023-08-24 11:55] LABS: T4 Free Thyroxine 0.99 ng/dl (0.61-1.60)
--- NOTE | 2023-08-24 11:57 | Hospitalist Progress Note ---
Date of Service August 24, 2023 Assessment & Plan (1) Acute on chronic heart failure with preserved ejection fraction: Plan: most of her exam is c/w right heart disease findings (LE edema, body wall edema, JVD, etc) she is voiding very well s/p bumex this am will lower her dose to 3mg BID to avoid VARINDER requests phillips - will place plan limited echo to recheck LV and RV function plan CT a/p - r/o signs of cirrhosis in light of morbid obesity check TFTs cont aldactone at home dose of 50mg BID appreciate Ashlyn Griffin's consultation from CHF clinic (2) Abdominal pannus: Plan: She is very tender over her pannus Plan to obtain CT a/p to r/o abd wall cellulitis, deep abscess, other pathology No discrete signs of acute panniculitis on physical exam (3) Severe obstructive sleep apnea: Plan: Patient has an upcoming sleep study Amenable to using CPAP HS while inpatient (4) History of sepsis: Plan: 09/2021 - left prosthetic knee infection with bacteremia - corynebacterium striatum hospitalized [facility] s/p revision tibial polyethylene liner in her TKR along with arthrotomy and debridement with sharp excisional debridement new rotating platform tibial insert placed initially on IV daptomycin for the next few months following initial surgery, but late summer 2021 had recurrent infection in the left knee requiring additional surgery cultures from the knee showed corynebacterium ultimately was on IV vancomycin fall 2021, then later changed to PO tedizolid 2022 tedizolid no longer available, and linezolid was not an option 12/2022 ID notes indicate she was then placed on doxycycline as chronic suppressive therapy has been on such since that time (5) Lower extremity edema: Plan: LLE with chronic lymphedema, but overall her edema in both legs has been much worse the last few weeks - likely due to #1 due to worsening LLE edema in particular will obtain venous duplex study - r/o DVT (6) Stage 3b chronic kidney disease: Plan: baseline Cr about 1.4 bmp daily while here (7) Morbid obesity with BMI of 50.0-59.9, adult: Plan: BMI 53 today (8) Hypertension: (9) Abdominal pain: Plan: etiology uncertain thus, obtain CT a/p (10) Low back pain: Plan: chronic, but worse acutely b/l "hip" pain may be radicular pain from her l-spine check l-spine CT and go from there (11) Bilateral hip pain: Plan: 2nd to referred pain from l-spine vs intrinsic hip disease vs other check x-rays b/l hips check CT lumbar spine increase tramadol to 75mg prn (12) Solitary kidney, congenital: Plan: 1 functioning kidney only Plan DVT proph - Heparin 7500u SQ q12h if renal function remains stable then increase to TID dosing Admission and Anticipated Discharge Date Admission Date: August 23, 2023 Subjective multiple complaints this am including - 1. shortness of breath with exertion 2. LE edema, L>R, along with increase in abdominal girth and size of her pannus 3. b/l "hip pain" and thigh pain - points to outer lateral aspect of both hips, but then points the groin b/l; states pain radiates to about mid-thigh anteriorly. "sharp" in quality, and hurts "all the time." 4. acute/chronic low back pain - severe pain right now, much worse than baseline. Pain is worst in the midline lumbar region. No recent fall or injury 5. abd pain - multiple locations, but especially the upper abdomen 6. poor appetite for about 1 week; no fevers or chills; feels "full" with trying to eat 7. requests phillips catheter placement Review of Systems Review of Systems: gen - appetite has been poor-fair for several days; +weight gain; no fevers cv - no chest pain pulm - dyspnea GI - no vomiting despite the abd pain Physical Exam Physical Exam: gen - morbidly obese, looks uncomfortable neck - suspected JVD present mouth - MMM heart - RRR, s1 s2 lungs - CTA b/l; no rales abd - very large abdomen with large amount of pannus that hangs over her pelvis and across the upper thighs; she is tender in the upper quadrants of abdomen as well as over her pannus; there is no evidence of abd wall cellulitis although there is macerated skin over the lowest most portion of the pannus; no HSM; BS+ ext - 1-2+ edema b/l shins, pulses 2+ b/l feet skin - stasis changes b/l shins; macerated skin over central/midline pannus neuro - strength 5/5 b/l hip flexion and b/l ankle dorsiflexion/plantarflexion musculo - VERY tender to palpation over R trochanteric bursal area; no pain in either hip with passive ROM Results & Data Results & Data Vital Signs (Past 12 Hours) Vital Signs Temp Pulse Pulse Resp BP BP Pulse Ox 08/24/23 10:07 131/71 08/24/23 10:07 80 17 97 08/24/23 10:00 88 24 08/24/23 09:00 86 15 100 08/24/23 08:00 88 20 110/65 96 08/24/23 08:00 84 14 98 08/24/23 07:33 68 08/24/23 07:00 119/78 08/24/23 07:00 70 20 98 08/24/23 06:05 08/24/23 06:00 116/74 08/24/23 06:00 78 19 97 08/24/23 05:43 89 17 99 08/24/23 05:00 117/77 08/24/23 05:00 82 17 97 08/24/23 04:00 80 23 99 08/24/23 04:00 126/70 08/24/23 03:00 80 28 H 96 08/24/23 03:00 119/70 08/24/23 02:00 135/84 08/24/23 02:00 80 16 97 08/24/23 01:41 89 17 116/74 98 08/24/23 01:32 82 20 99 08/24/23 01:32 116/74 08/24/23 01:31 08/24/23 01:31 36.4 C 84 17 116/74 97 08/24/23 01:00 08/24/23 01:00 87 14 98 08/24/23 00:10 87 13 99 08/24/23 00:00 89 20 97 Laboratory Results Laboratory Results - last 24 hr 08/23/23 08/24/23 15:50 03:41 WBC 9.82 10.74 RBC 4.73 4.76 Hgb 12.9 12.9 Hct 40.9 41.1 MCV 86.5 86.3 MCH 27.3 27.1 MCHC 31.5 L 31.4 L RDW Std Deviation 47.8 H 47.7 H RDW Coeff of Cleo 15.2 H 15.2 H Plt Count 305 334 MPV 9.8 9.8 Immature Gran % (Auto) 0.2 0.2 Neut % (Auto) 69.7 65.4 Lymph % (Auto) 18.3 21.3 Newton % (Auto) 6.0 7.0 Eos % (Auto) 5.4 5.6 Baso % (Auto) 0.4 0.5 Neut # (Auto) 6.84 H 7.03 H Lymph # (Auto) 1.80 2.29 Newton # (Auto) 0.59 0.75 H Eos # (Auto) 0.53 H 0.60 H Baso # (Auto) 0.04 0.05 Immature Gran # (Auto) 0.02 0.02 ESR 65 H PT 11.1 INR 1.0 APTT 32 H PTT Ratio 1.1 Sodium 138 140 Potassium 3.9 3.6 Chloride 100 100 Carbon Dioxide 33 H 34 H Anion Gap 5 6 BUN 13 13 Creatinine 1.42 H 1.41 H Est Cr Clr Drug Dosing Not Reportable 74.9 Est GFR ( Amer) 46.4 46.8 Est GFR (Non-Af Amer) 40.0 40.4 BUN/Creatinine Ratio 9.2 L 9.2 L Glucose 98 108 H Calcium 9.0 9.1 Magnesium 1.7 Total Bilirubin 0.4 AST 19 ALT 16 Alkaline Phosphatase 90 Troponin I High Sens 5.3 C-Reactive Protein 4.32 H 3.94 H B-Natriuretic Peptide 6 Total Protein 7.6 Albumin 3.8 Globulin 3.8 Albumin/Globulin Ratio 1.0 TSH 5.274 H Free T4 Pending PG Care Time/CCT Total # of Minutes Spent Total Time Spent with Patient: Total time spent is greater than 50% in coordination of care (as documented) at patient's floor/unit and/or counseling patient: Coding Level of Care Code 73945 SUB INP/OBS CARE 3/50MIN Diagnoses Acute on chronic heart failure with preserved ejection fraction I50.33 Abdominal pannus E65 Severe obstructive sleep apnea G47.33 History of sepsis Z86.19 Lower extremity edema R60.0 Stage 3b chronic kidney disease N18.32 Morbid obesity with BMI of 50.0-59.9, adult E66.01; Z68.43 Primary hypertension I10 Hypertension type: unspecified Abdominal pain R10.9 Low back pain M54.50 Bilateral hip pain M25.551; M25.552 Solitary kidney, congenital Q60.0 (8) Hypertension Hypertension type: unspecified Qualified Code(s): I10 - Essential (primary) hypertension
--- NOTE | 2023-08-24 14:08 | Heart Failure Consultation ---
Date of Consultation August 24, 2023 Assessment & Plan (1) Acute on chronic heart failure with preserved ejection fraction: (2) Lower extremity edema: (3) Abdominal pannus: (4) Dependent lymphedema: (5) Morbid obesity with BMI of 50.0-59.9, adult: Plan 1. Chronic heart failure with preserved EF: BNP is unremarkable however she is morbidly obese so it may be falsely low. CXR negative. She is likely hypervolemic however difficult exam given morbid obesity. Overall her weight is down from her previous heart failure eval in 2021. Her dry weight is unclear. She has also been actively trying to lose weight over the past year. She estimates she has acutely gained 30-40 lb in the past few weeks. Etiology is unclear. She denies any dietary indiscretion. Suspect her edema is secondary to venous insufficiency/lymphedema. She confirms she's taking Bumex 2 mg BID at home. She is not taking any Metolazone, previously discontinued. She is not having any currently pulmonary symptoms and is tolerating room air. She got 4 mg IV this am. Currently getting IV Bumex 3 mg BID. Continue Spironolactone 50 mg BID. Would continue this with a goal of 1-2L negative per day. Continue to monitor kidney function and electrolytes.Daily STANDING weights. Strict I&Os. 1500 ml fluid restriction. She's requesting a phillips cath which will help with monitoring. Unclear if her volume overload is driving any of her musculoskeletal complaints but will likely benefit from optimization of her volume status regardless. Discussed the nature of heart failure and the goals of the program. She is agreeable to re-establishing follow up. 2. Hypertension: Well controlled. Continue current regimen 3. OHS/ANDRZEJ: Sleep study pending. Continue CPAP. Disposition: Will continue to follow during hospitalization. I will be away from the hospital tomorrow but return . Please contact Dr. Watkins if needed. History of Present Illness Attending Physician: Candido Bethea MD History of Present Illness Ms. Tristan is a very pleasant 62-year-old female with a history significant for heart failure with preserved EF, obstructive sleep apnea, CKD (congenital absent left kidney), TIA, lymphedema, asthma, hypertension, dyslipidemia, morbid obesity, and iron deficiency anemia. She is status post gastric bypass per records. She presented for cardiology consultation on 05/01/2021 regarding CHF and dilated RV. Her last visit with the heart failure program was 08/2021. She was taking Bumex 4 mg BID at that time. She has been routinely following with [facility]. She has had the following studies/procedures: 1. Echo 03/30/2021 [facility]: Mildly dilated LV. EF 60-65%. Normal wall motion. Mild LVH. RV not fully visualized but appears severely dilated with grossly normal systolic function. Dilated right atrium. No significant valvular abnormalities. Normal RVSP. 2. Echo 07/15/2021 [facility]: Mildly dilated LV with normal systolic function. EF 60-65%. Normal wall motion. Mild LVH. RV not well visualized. Normal RV systolic function. No significant valvular abnormalities. Normal RVSP. 3. 09/21/21 Echo: Normal LV size/function. No RWMA. EF 60-65%. No valvular abnormalities. 4. 01/16/23 Echo: Normal LV size/function. E F60-65%. No RWMA. Moderate concentric LVH. No significant valvular disease. Normal RVSP. She presented to the ED yesterday with significant swelling in her legs and abdomen x 2-3 weeks. She notices her pannus has gotten significantly larger. She notes early satiety. CXR negative for acute disease. EKG without changes. BNP 6. She was treated with IV Bumex. Fluid restriction recommended. Patient was evaluated in the ED today. She is laying mostly flat without any complaints of dyspnea. She notes her abdomen/pannus remains edematous. She notes 100 lb weight loss in recent months but suspect she has acutely gained 30-50 lb in the past few weeks. She reports good diuretic compliance at home- 2 mg BID. She does not weigh herself daily. She states she was as low as 363 but suspects she was 379 lb at home this week. She denies cough, wheezing, palpitations. Allergies Allergy/AdvReac Type Severity Reaction Status Date / Time Corticosteroids Allergy Intermediate RASH Verified 08/24/23 01:40 (Glucocorticoids) morphine Allergy Intermediate MOUTH Verified 08/24/23 01:40 SWELLS/FACE SWELLS orange Allergy Intermediate HIVES Verified 08/24/23 01:40 Penicillins Allergy Intermediate RASH/HIVES Verified 08/24/23 01:40 prednisone Allergy Intermediate RED RASH Verified 08/24/23 01:40 adhesive Allergy Mild Skin rash Verified 08/24/23 01:40 localized zolpidem Allergy Unknown UNSURE Verified 08/24/23 01:40 pregabalin AdvReac Intermediate GOOFY Verified 08/24/23 01:40 Home Medications Medication Instructions Recorded Confirmed Type fluticasone 250 mcg-salmeterol 50 1 inh inhalation BID #1 inhaler 06/25/21 08/23/23 Rx mcg/dose blistr powdr for inhalation (Advair Diskus) cholecalciferol (vitamin D3) 50 2,000 unit PO TID #270 caps 07/18/21 08/23/23 Rx mcg (2,000 unit) capsule (Vitamin D3) acetaminophen 500 mg tablet 1,000 mg (2 x 500 mg) PO Q4H PRN 09/16/21 08/23/23 Rx fever or pain #90 tabs calcium carbonate (Tums) 900 mg PO QAM 03/03/22 08/23/23 History cyanocobalamin (vitamin B-12) 1,000 mcg PO QAM 03/03/22 08/23/23 History 1,000 mcg tablet (Vitamin B-12) cetirizine 10 mg tablet (Zyrtec) 10 mg PO DAILY #90 tabs 07/03/22 08/23/23 Rx buspirone 15 mg tablet 15 mg PO TID #270 tabs 11/20/22 08/23/23 Rx gabapentin 300 mg capsule 300 mg PO TID #270 caps 12/14/22 08/23/23 Rx TENS unit electrodes #1 ea 02/02/23 07/12/23 Rx bupropion HCl 300 mg 24 hr tablet, 300 mg PO QAM #90 tabs 02/08/23 08/23/23 Rx extended release montelukast 10 mg tablet 10 mg PO QPM #90 tabs 02/08/23 08/23/23 Rx doxycycline monohydrate 100 mg 100 mg PO BID #180 caps 03/19/23 08/23/23 Rx capsule famotidine 20 mg tablet 20 mg PO HS #90 tabs 03/23/23 08/23/23 Rx bumetanide 1 mg tablet 2 mg (2 x 1 mg) PO BID #360 tabs 04/28/23 08/23/23 Rx allopurinol 100 mg tablet 100 mg PO BID #180 tabs 05/04/23 08/23/23 Rx pantoprazole 40 mg tablet,delayed 40 mg PO BID #180 tabs 05/26/23 08/23/23 Rx release albuterol sulfate 2.5 mg/3 mL 2.5 mg (3 mL) inhalation Q6H PRN 06/25/23 08/23/23 Rx (0.083 %) solution for nebulization Shortness Of Breath #90 mL albuterol sulfate 90 mcg/actuation 2 puff inhalation Q4H PRN 06/25/23 08/23/23 Rx aerosol inhaler (Ventolin HFA) Shortness Of Breath Or Wheezing #18 grams aspirin 81 mg tablet,delayed 81 mg PO DAILY 06/25/23 08/23/23 History release duloxetine 60 mg capsule,delayed 60 mg PO BID 06/25/23 08/23/23 History release multivitamin 1 tab PO QAM #90 tabs 06/25/23 08/23/23 Rx spironolactone 50 mg tablet 50 mg PO BID 06/25/23 08/23/23 History Klor-Con M20 20 mEq See Rx Instructions PO BID #120 06/30/23 08/23/23 Rx tablet,extended release (potassium tabs chloride) tramadol 50 mg tablet See Rx Instructions PO Q6H PRN 07/27/23 08/23/23 Rx pain #90 tabs Patient History Medical History History of revision of total replacement of left knee joint Fatty liver Dependent lymphedema Stage 3b chronic kidney disease History of COVID-19 09/20[place] [facility] [place] while you being for the knee infection. Anemia reason for procedure. iron infusions recently. Septic arthritis Sepsis 09/2021 r/t left knee infection Dyslipidemia Hypertension Chronic heart failure with preserved ejection fraction Iron deficiency anemia Venous stasis of both lower extremities Morbid obesity with BMI of 50.0-59.9, adult MDD (major depressive disorder), recurrent episode, moderate Ambulatory dysfunction Prediabetes MRSA (methicillin resistant staph aureus) culture positive 09/2021 s/p left knee infection History of CVA (cerebrovascular accident) states it was a "mini stroke" 2017 Other ovarian cyst, left side Peripheral neuropathy Lumbar spinal stenosis Depression with anxiety Degenerative joint disease, shoulder, right Chronic cutaneous venous stasis ulcer hx -- has since resolved. 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- DISCOVERED WITH INCIDENTAL IMAGING Lymphedema left side Gout Asthma Hyperlipidemia CKD (chronic kidney disease) stage 3, GFR 30-59 ml/min monitoring Chronic back pain Acid reflux TIA (transient ischemic attack) 2017- On Plavix Surgical History History of bilateral knee replacement (10/16/22) H/O knee surgery (12/2021) L knee washout w/ polyexchange S/P tonsillectomy and adenoidectomy Status post total shoulder arthroplasty (10/17/18) R History of carpal tunnel release B/L H/O ventral hernia repair History of appendectomy History of cholecystectomy Family History Mother Diabetes Coronary heart disease Myocardial infarction S/P CABG x 3 Hypertension Gallbladder disease Sister Hodgkins lymphoma Brother Kidney disease Grandmother Breast cancer Aunt Ovarian cancer Father , 02/11/20. 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 Required: No Beliefs That Will Affect Care: None marital status: marital status details: ; lives with parents & 1 daughter Current Living Situation: Family Current Living Situation Comment: daughter and mom current occupational status: disabled other: 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 Alert and oriented. HEENT: Anicteric sclera. Neck: + JVD usp to the mandible at 30 degrees. +HJR Cardiac: PMI was nonpalpable. No ventricular heave. Regular. Normal S1-S2. No murmurs, rubs, or gallops. Pulmonary: Clear to auscultation bilaterally without wheezes, rales, or rhonchi. Abdomen: Obese. Soft, nontender, nondistended, with normoactive bowel sounds. No bruits noted. Extremities: 2+ radial pulses bilaterally. 2+ posterior tibialis pulses bilaterally. 1+ left lower extremity edema. Trace right lower extremity edema more consistent with lymphedema. No cyanosis. Chronic stasis changes. Psychiatric: Affect appears appropriate. Results & Data Vital Signs (Past 12 Hours) Vital Signs Pulse Resp BP Pulse Ox O2 Del Method O2 Flow Rate 08/24/23 12:00 80 14 98 08/24/23 11:00 77 17 92 08/24/23 10:07 131/71 08/24/23 10:07 80 17 97 08/24/23 10:00 88 24 08/24/23 09:00 86 15 100 08/24/23 08:00 88 20 110/65 96 2 08/24/23 08:00 84 14 98 08/24/23 07:33 68 08/24/23 07:00 119/78 08/24/23 07:00 70 20 98 08/24/23 06:05 Room Air 08/24/23 06:00 116/74 08/24/23 06:00 78 19 97 Room Air 08/24/23 05:43 89 17 99 08/24/23 05:00 117/77 08/24/23 05:00 82 17 97 08/24/23 04:00 80 23 99 08/24/23 04:00 126/70 08/24/23 03:00 80 28 H 96 08/24/23 03:00 119/70 08/24/23 02:00 135/84 08/24/23 02:00 80 16 97 Heart Failure Data/Metrics Heart Failure Type: HFpEF (EF > 50%) Ejection Fraction: 60-65% Coding Level of Care Code 96854 INT INP/OBS CARE 3/75MIN Diagnoses Acute on chronic heart failure with preserved ejection fraction I50.33 Lower extremity edema R60.0 Abdominal pannus E65 Dependent lymphedema I89.0 Morbid obesity with BMI of 50.0-59.9, adult E66.01; Z68.43
[2023-08-24] MEDS: OPTIRAY 320 125ml IV ONE (15:03)
--- NOTE | 2023-08-24 16:21 | Ultrasound Report ---
US venous doppler LE LT CLINICAL HISTORY: severe edema, eval DVT TECHNIQUE: Left lower extremity real-time compression venous ultrasound with Color Doppler imaging. U tilizing real-time ultrasonic imaging multiple real time high-resolution ultrasonic images with compr ession and noncompression maneuvers of the deep venous system in addition to color doppler imaging we re performed from the common femoral vein through the proximal calf veins. COMPARISON: Comparison is made to left lower extremity ultrasound 01/15/2023 FINDINGS/IMPRESSION: Currently there is normal compressibility of the deep venous system from the common femoral vein thro ugh the proximal calf veins. Limited evaluation of the calf veins due to overlying edema. Peroneal v eins are not visualized. ACT 112: Negative or not required by law. Electronically signed by: Christian Duran M.D. 08/24/2023 4:20 PM
--- NOTE | 2023-08-24 16:30 | CT Scan Report ---
ABDOMEN AND PELVIS CT WITH IV CONTRAST CT DOSE: 1489.02 mGy.cm HISTORY: Acute severe generalized abdominal pain severe diffuse abd pain swelling TECHNIQUE: Multiaxial CT images of the abdomen and pelvis were performed following the IV administrat ion of 118 cc of Optiray, A dose lowering technique was utilized adhering to the principles of ALARA . COMPARISON STUDY: CT lumbar spine of same day, CT abdomen and pelvis 04/01/2023 FINDINGS: No acute lower thoracic abnormality identified. No free air. Unremarkable spleen, pancreas and adrenal glands. Cholecystectomy with likely postsurgical biliary ductal dilation. The liver is mi ldly large. Cortical scarring of the right left kidneys with atrophic right kidney. Numerous nonshadowing calculi of the kidneys are felt to 5 mm on the right. Calcifications of the left kidney measure up to 10 mm. No ureteral calculi or hydronephrosis. Decompressed urinary bladder with Bales catheter in place. Un remarkable uterus. 4.4 cm stable cystic focus of the left adnexum which is indeterminate. Atheroscler osis of the aorta and branch vessels. Nonspecific mildly enlarged bilateral iliac and inguinal chain lymph nodes measure up to approximately 10 to 12 mm, similar to prior. Subcutaneous edema of the ante rior abdominal wall pannus. No bowel obstruction or bowel wall thickening. Pelvic floor relaxation. Mild to moderate colonic feca l retention. No CT evidence of acute appendicitis. Multilevel degenerative changes of the spine with multilevel central canal and neural foraminal narrowing. IMPRESSION: 1. Nonobstructing bilateral nephrolithiasis. No ureteral calculi or hydronephrosis. 2. Bilateral cortical scarring with atrophic right kidney redemonstrated. 3. No bowel obstruction or bowel wall thickening. 5. Additional findings as above. ACT 112: Negative or not required by law. The above report was generated using voice recognition software. It may contain grammatical, syntax o r spelling errors. Electronically signed by: Reinaldo Todd M.D. 08/24/2023 4:28 PM
--- NOTE | 2023-08-24 16:50 | CT Scan Report ---
CT lumbar spine w con CLINICAL HISTORY: ?radicular pain of legs, low back pain COMPARISON STUDY: None. TECHNIQUE: Multiaxial CT images of the lumbar spine were performed following the intravenous administ ration of contrast and reformatted in the sagittal and coronal planes. FINDINGS: Mild levoscoliosis of the lumbar spine. No fracture or subluxation. Moderate to severe face t degenerative changes throughout the lumbar spine. There is severe disc space narrowing at L1-L2, L2 -L3, and L5-S1. Mild disc space narrowing at L3-L4 and L4-L5. The visualized sacrum is intact. Bilate ral sacroiliac joints are within normal limits. Left-sided nephrolithiasis. No hydronephrosis. There is an atrophic right kidney. Paravertebral soft tissues are unremarkable. Moderate central canal narr owing at L2-L3 and L3-L4 due to the broad-based posterior disc bulges and ligamentum/facet hypertroph y. Mild central canal narrowing throughout the remaining lumbar spine. There is moderate to severe mu ltilevel neural foraminal narrowing at L2-L3, L3-L4, L4-5, and L5-S1. This most pronounced within the lower lumbar spine. IMPRESSION: 1. No fracture or subluxation within the lumbar spine. 2. Degenerative changes as described above. 3. Mild levoscoliosis. 4. Left-sided nephrolithiasis. ACT 112: Negative or not required by law. Electronically signed by: Ji Velasquez M.D. 08/24/2023 4:49 PM
--- NOTE | 2023-08-24 16:56 | XRay Report ---
XR hip LT min 2V, XR hip RT min 2V CLINICAL HISTORY: L anterior hip pain TECHNIQUE: 2 views of the bilateral hips were obtained. Comparison: None available at the time of this dictation. FINDINGS: Exam is limited by underpenetration. There is no evidence of an acute fracture. Joint spaces are well -preserved. No soft tissue abnormality is seen. IMPRESSION: Exam is limited by underpenetration however there is no acute fracture. ACT 112: Negative or not required by law. Electronically signed by: Christian Duran M.D. 08/24/2023 4:53 PM
[2023-08-24] MEDS: BUMETANIDE 3 MG in SYRINGE 0 ML IV SCH (18:07)
[2023-08-24] MEDS: traMADol HCL 50 MG TABLET PO PRN ×2 (20:36)
[2023-08-24] MEDS: FAMOTIDINE 20 MG TAB PO SCH (20:36)
[2023-08-24] MEDS: MONTELUKAST SODIUM 10 MG TABLET PO SCH (20:37)
--- NOTE | 2023-08-24 21:21 | XCELERA ---
[id number]___[id number]
[2023-08-25 07:22] LABS: BUN Creatinine Ratio 8.7 (10-20); Calcium 8.7 mg/dl (8.6-10.3); Creatinine Clr Calc Pharmacy 76.5 ml/min; Est GFR (Non-African American) 41.5 ml/min; Magnesium 1.8 mg/dl (1.7-2.4); Potassium 3.7 mmol/L (3.5-5.1)
[2023-08-25] MEDS: ONDANSETRON INJ 2 MG/ML 2 ML VIAL IV PRN (08:06)
[2023-08-25] MEDS: BUMETANIDE 2 MG in SYRINGE 0 ML IV SCH (08:10)
[2023-08-25] MEDS: FAMOTIDINE 20MG IV PUSH 20 MG/5 ML SYR IV STA (09:26)
[2023-08-25] MEDS: HEPARIN SOD 5,000 UNIT/0.5 ML VIAL SQ SCH (13:11)
--- NOTE | 2023-08-25 20:49 | Hospitalist Progress Note ---
Date of Service August 25, 2023 Assessment & Plan (1) Acute on chronic heart failure with preserved ejection fraction: Plan: most of her exam is c/w right heart disease findings (LE edema, body wall edema, JVD, etc) repeat limited echo with intact LV and RV function no evidence of cirrhosis on CT abd/pelvis renal function stable TSH minimally elevated cont aldactone at home dose of 50mg BID cont bumex 2mg IV BID - excellent diuresis with these 2 diuretics cause of decompensation -- noncompliance with diet? noncompliance with medicines? appreciate Ashlyn Griffin's consultation from CHF clinic BMP am (2) Abdominal pannus: Plan: She is very tender over her pannus but it is better today following diuresis CT a/p without abd wall cellulitis, deep abscess, panniculitis No discrete signs of acute panniculitis on physical exam does have candidiasis - will Rx as below wound care consult to help with ulcerated skin areas of pannus (3) Severe obstructive sleep apnea: Plan: Patient has an upcoming sleep study Amenable to using CPAP HS while inpatient (4) History of sepsis: Plan: 09/2021 - left prosthetic knee infection with bacteremia - corynebacterium striatum hospitalized [facility] s/p revision tibial polyethylene liner in her TKR along with arthrotomy and debridement with sharp excisional debridement new rotating platform tibial insert placed initially on IV daptomycin for the next few months following initial surgery, but late summer 2021 had recurrent infection in the left knee requiring additional surgery cultures from the knee showed corynebacterium ultimately was on IV vancomycin fall 2021, then later changed to PO tedizolid 2022 tedizolid no longer available, and linezolid was not an option 12/2022 ID notes indicate she was then placed on doxycycline as chronic suppressive therapy has been on such since that time doxy could be contributing to chronic GERD and GI issues (5) Lower extremity edema: Plan: LLE with chronic lymphedema, but overall her edema in both legs has been much worse the last few weeks - likely due to #1 due to worsening LLE edema in particular obtained venous duplex study - NO DVT seen (6) Stage 3b chronic kidney disease: Plan: baseline Cr about 1.4 bmp daily while here Cr stable overnight despite copious diuresis (7) Morbid obesity with BMI of 50.0-59.9, adult: Plan: BMI 50 today (8) Hypertension: Plan: on bumex/aldactone (9) Abdominal pain: Plan: CT a/p yesterday without acute pathology she does have chronic GERD issues as below does have chronic nausea issues as noted in this progress note the sheer weight of her abdominal pannus could be contributing to pain cont PPI/carafate cont diuresis to help with abd wall swelling (10) Low back pain: Plan: chronic, but worse acutely b/l "hip" pain likely radicular pain from her l-spine checked l-spine CT - severe DJD/stenosis/etc no compression fractures seen tramadol prn (11) Bilateral hip pain: Plan: likely 2nd to referred pain from l-spine as l-spine CT showed severe DJD b/l hip x-rays without significant OA can't rule out trochanteric bursitis contributing cont tramadol 75mg prn (12) Solitary kidney, congenital: Plan: 1 functioning kidney only (13) Acid reflux: Plan: severe at baseline despite taking PPI twice daily at home along with pepcid daily add carafate qid EGD 2021 - normal esophagus and stomach, but bx of duodenum showed duodenitis the latter could be due to chronic acid issues, celiac, etc consider H. Pylori stool ag check TTG - r/o celiac the duodenitis could be one of the reasons she has chronic nausea (14) Candidiasis of skin: Plan: pannus, skin folds of groin/pannus, etc mod-severe clotrimazole powder TID liberally to pannus/skin folds add diflucan 100mg BID x 7 days QTc on EKG wnl wound care consult to help heal the macerated/ulcerated regions Plan DVT proph - Heparin 7500u SQ TID (increase dose from BID to TID due to stable renal function) updated pt's daughter by phone this evening Admission and Anticipated Discharge Date Admission Date: August 23, 2023 Subjective all presenting symptoms improved including dyspnea, abd pain, b/l leg pains, and general aches/pains she has less distension of her abd/pannus she did have nausea this am then proceeded to vomit this "came out of the clear blue" she does report frequent nausea at home multiple times each week often worse following meals doesn't typically vomit at home, however does get "heartburn alot" takes copious tums Review of Systems Review of Systems: gen - no fevers; was able to eat breakfast/lunch despite the N/V this am cv - no chest pain; LE edema improved GI - mild abd pain - unchanged from prior visit pulm - dyspnea improved Physical Exam Physical Exam: gen - morbidly obese, looks much better today neck - suspected JVD present - mild mouth - MMM heart - RRR, s1 s2, no murmur lungs - CTA b/l; no rales or wheeze abd - very large abdomen with large amount of pannus that hangs over her pelvis and across the upper thighs - this is much improved today; she is nontender in the upper quadrants of abdomen today but her pannus is still uncomfortable to touch; there is no evidence of abd wall cellulitis although there is macerated skin over the lowest most portion of the pannus; no HSM; BS+ ext - <1+ edema b/l shins, pulses 2+ b/l feet skin - stasis changes b/l shins; macerated skin over central/midline pannus Results & Data Results & Data Vital Signs (Past 12 Hours) Vital Signs Temp Pulse Pulse Resp BP Pulse Ox O2 Del Method 08/25/23 20:47 36.7 C 79 20 125/68 96 Room Air 08/25/23 17:20 133/86 08/25/23 15:54 36.9 C 75 16 113/49 L 94 Room Air 08/25/23 15:00 79 08/25/23 11:52 36.6 C 60 16 147/70 H 96 Room Air Laboratory Results Laboratory Results - last 24 hr 08/25/23 06:13 Sodium 139 Potassium 3.7 Chloride 97 L Carbon Dioxide 36 H Anion Gap 6 BUN 12 Creatinine 1.38 H Est Cr Clr Drug Dosing 76.5 Est GFR ( Amer) 48.0 Est GFR (Non-Af Amer) 41.5 BUN/Creatinine Ratio 8.7 L Glucose 102 H Calcium 8.7 Magnesium 1.8 PG Care Time/CCT Total # of Minutes Spent Total Time Spent with Patient: Total time spent is greater than 50% in coordination of care (as documented) at patient's floor/unit and/or counseling patient: Coding Level of Care Code 82862 SUB INP/OBS CARE 3/50MIN Diagnoses Acute on chronic heart failure with preserved ejection fraction I50.33 Abdominal pannus E65 Severe obstructive sleep apnea G47.33 History of sepsis Z86.19 Lower extremity edema R60.0 Stage 3b chronic kidney disease N18.32 Morbid obesity with BMI of 50.0-59.9, adult E66.01; Z68.43 Primary hypertension I10 Hypertension type: unspecified Abdominal pain R10.9 Low back pain M54.50 Bilateral hip pain M25.551; M25.552 Solitary kidney, congenital Q60.0 Acid reflux K21.9 Candidiasis of skin B37.2 (8) Hypertension Hypertension type: unspecified Qualified Code(s): I10 - Essential (primary) hypertension
[2023-08-25] MEDS: MAGNESIUM OXIDE 400 MG TAB PO SCH (21:25)
[2023-08-25] MEDS: MICONAZOLE NITRATE POWDER 85 GM EXT SCH (21:26)
[2023-08-25] MEDS: FLUCONAZOLE 100 MG TAB PO SCH (21:30)
[2023-08-25] MEDS: SUCRALFATE 1 GM/10 ML UDC PO SCH (21:31)
[2023-08-26 06:52] LABS: BUN Creatinine Ratio 8.1 (10-20); Calcium 8.9 mg/dl (8.6-10.3); Creatinine Clr Calc Pharmacy 63.5 ml/min; Est GFR (African American) 39.9 ml/min; Est GFR (Non-African American) 34.4 ml/min; Potassium 3.9 mmol/L (3.5-5.1)
--- NOTE | 2023-08-26 11:40 | Heart Failure Progress Note ---
Date of Service August 26, 2023 Assessment & Plan (1) Acute on chronic heart failure with preserved ejection fraction: (2) Lower extremity edema: (3) Abdominal pannus: (4) Dependent lymphedema: (5) Morbid obesity with BMI of 50.0-59.9, adult: Plan 1. Chronic heart failure with preserved EF: BNP is unremarkable however she is morbidly obese so it may be falsely low. CXR negative. She is likely hypervolemic however difficult exam given morbid obesity. Weight is trending down. Her actual dry weight is unclear. She has also been actively trying to lose weight over the past year. Etiology is unclear. She denies any dietary indiscretion. She's diuresing well, suspect possibly noncompliance? Suspect her edema is secondary to venous insufficiency/lymphedema. She confirms she's taking Bumex 2 mg BID at home. She is not taking any Metolazone, previously discontinued. She is not having any currently pulmonary symptoms and is tolerating room air. Currently getting IV Bumex 2 mg IV BID. Continue Spironolactone 50 mg BID. Would continue this with a goal of 1-2L negative per day. Continue to monitor kidney function and electrolytes.Daily STANDING weights. Strict I&Os. 1500 ml fluid restriction. She's requesting a phillips cath which will help with monitoring. Unclear if her volume overload is driving any of her musculoskeletal complaints but will likely benefit from optimization of her volume status regardless. Discussed the nature of heart failure and the goals of the program. She is agreeable to re-establishing follow up. 2. Hypertension: Well controlled. Continue current regimen 3. OHS/ANDRZEJ: Sleep study pending. Continue CPAP. Disposition: Will continue to follow during hospitalization. Anticipate close outpatient follow up in the heart failure clinic. Admission and Anticipated Discharge Date Admission Date: August 23, 2023 Subjective Patient reports feeling somewhat improved today. She has had copious amounts of diuresis- net negative 13L in 48 hours. She continues to have pain and pressure in her pannus however it is better than admission. She also has other various MSK complaints which are chronic. She denies shortness of breath. She is not requiring any supplemental O2. Lower extremity edema is improving and erythema is less. Weight was 362 lb today on standing scale. Repeat echo stable from previous. Physical Exam Physical Exam: Gen.: No acute distress. Alert and oriented. HEENT: Anicteric sclera. Neck: + JVD fpc to the mandible at 30 degrees. +HJR Cardiac: PMI was nonpalpable. No ventricular heave. Regular. Normal S1-S2. No murmurs, rubs, or gallops. Pulmonary: Clear to auscultation bilaterally without wheezes, rales, or rhonchi. Abdomen: Obese. Soft, nontender, nondistended, with normoactive bowel sounds. No bruits noted. Extremities: 2+ radial pulses bilaterally. 2+ posterior tibialis pulses bilatera lly. 1+ left lower extremity edema. Trace right lower extremity edema more consistent with lymphedema. No cyanosis. Chronic stasis changes. Psychiatric: Affect appears appropriate. Results & Data Vital Signs (Past 12 Hours) Vital Signs Temp Pulse Pulse Resp BP Pulse Ox O2 Del Method 08/26/23 07:39 98.1 F 69 16 131/79 96 Room Air 08/26/23 07:00 74 08/26/23 03:11 81 23 97 08/26/23 03:08 97.7 F 76 20 148/70 H 94 Room Air, CPAP 08/26/23 00:11 78 08/25/23 23:50 97.9 F 73 20 150/67 H 94 Room Air, CPAP PG Care Time/CCT Total # of Minutes Spent Total Time Spent with Patient: Total time spent is greater than 50% in coordination of care (as documented) at patient's floor/unit and/or counseling patient: Heart Failure Data/Metrics Heart Failure Type: HFpEF (EF > 50%) Ejection Fraction: 60-65% Coding Level of Care Code 74704 SUB INP/OBS CARE 3/50MIN Diagnoses Acute on chronic heart failure with preserved ejection fraction I50.33 Lower extremity edema R60.0 Abdominal pannus E65 Dependent lymphedema I89.0 Morbid obesity with BMI of 50.0-59.9, adult E66.01; Z68.43
--- NOTE | 2023-08-26 19:18 | Hospitalist Progress Note ---
Date of Service August 26, 2023 Assessment & Plan (1) Acute on chronic heart failure with preserved ejection fraction: Plan: most of her exam is c/w right heart disease findings (LE edema, body wall edema, JVD, etc) repeat limited echo with intact LV and RV function no evidence of cirrhosis on CT abd/pelvis renal function stable TSH minimally elevated cont aldactone at home dose of 50mg BID cont bumex 2mg IV BID today; then place on hold pending tomorrow's AM labs (Creatinine gail a little overnight and she is developing contraction alkalosis) cause of decompensation -- noncompliance with diet? noncompliance with medicines? appreciate Ashlyn Griffin's consultation from CHF clinic BMP am (2) Abdominal pannus: Plan: She was very tender over her pannus at time of admission but it is significantly better (pain essentially gone) following diuresis CT a/p without abd wall cellulitis, deep abscess, panniculitis No discrete signs of acute panniculitis on physical exam does have candidiasis of the abdominal wall pannus - will Rx as below wound care consult appreciated (to help with ulcerated skin areas of pannus) (3) Severe obstructive sleep apnea: Plan: Patient has an upcoming sleep study Amenable to using CPAP HS while inpatient (4) History of sepsis: Plan: 09/2021 - left prosthetic knee infection with bacteremia - corynebacterium striatum hospitalized [facility] s/p revision tibial polyethylene liner in her TKR along with arthrotomy and debridement with sharp excisional debridement new rotating platform tibial insert placed initially on IV daptomycin for the next few months following initial surgery, but late summer 2021 had recurrent infection in the left knee requiring additional surgery cultures from the knee showed corynebacterium ultimately was on IV vancomycin fall 2021, then later changed to PO tedizolid 2022 tedizolid no longer available, and linezolid was not an option 12/2022 ID notes indicate she was then placed on doxycycline as chronic suppressive therapy has been on such since that time doxy could be contributing to chronic GERD and GI issues (5) Lower extremity edema: Plan: LLE with chronic lymphedema, but overall her edema in both legs has been much worse the last few weeks - likely due to #1 due to worsening LLE edema in particular obtained venous duplex study - NO DVT seen (6) Stage 3b chronic kidney disease: Plan: baseline Cr about 1.4 Cr today 1.6 may be approaching euvolemia or mildly volume contracted bmp daily while here (7) Morbid obesity with BMI of 50.0-59.9, adult: Plan: BMI 50 (8) Hypertension: Plan: on bumex/aldactone (9) Abdominal pain: Plan: essentially resolved CT a/p without acute pathology she does have chronic GERD issues as below the sheer weight of her abdominal pannus could have been contributing to pain cont PPI/carafate cont diuresis to help with abd wall swelling (10) Low back pain: Plan: chronic, but worse acutely b/l "hip" pain likely radicular pain from her l-spine right thigh pain laterally could be L3 or L4 radicular pain or IT band tendonitis/trochanteric bursitis checked l-spine CT - severe DJD/stenosis/etc no compression fractures seen tramadol prn increase gabapentin to 400mg TID (11) Bilateral hip pain: Plan: likely 2nd to referred pain from l-spine as l-spine CT showed severe DJD b/l hip x-rays without significant OA can't rule out trochanteric bursitis contributing cont tramadol 75mg prn (12) Solitary kidney, congenital: Plan: 1 functioning kidney only (13) Acid reflux: Plan: severe at baseline despite taking PPI twice daily at home along with pepcid daily add carafate qid EGD 2021 - normal esophagus and stomach, but bx of duodenum showed duodenitis the latter could be due to chronic acid issues, celiac, etc consider H. Pylori stool ag checked TTG - r/o celiac the duodenitis could be one of the reasons she has chronic nausea (14) Candidiasis of skin: Plan: pannus, skin folds of groin/pannus, etc mod-severe clotrimazole powder TID liberally to pannus/skin folds diflucan 100mg BID x 7 days QTc on EKG wnl wound care consult to help heal the macerated/ulcerated regions -- recs appreciated Plan DVT proph - Heparin 7500u SQ TID updated pt's daughter by phone 08/25/23 home this weekend? cleared by PT/OT for home Admission and Anticipated Discharge Date Admission Date: August 23, 2023 Subjective tele overnight wnl no further N/V carafate liquid helping her heartburn only complaint is that of right lateral thigh pain from the hip region down to the knee toothache, throbbing in quality abd pain essentially resolved bloating/body wall edema improved dyspnea improved Review of Systems Review of Systems: gen - eating well cv - no orthopnea; Leg edema much better pulm - dyspnea improved GI - no further vomiting episodes Physical Exam Physical Exam: gen - morbidly obese, looks very good today neck - suspected JVD resolved mouth - MMM heart - RRR, s1 s2, no murmur lungs - CTA b/l; no rales or wheeze abd - pannus/body wall edema improved & smaller in size; nontender today to palpation; BS+ skin - stasis changes b/l shins ext - no edema; pulses 2+ b/l Results & Data Results & Data Vital Signs (Past 12 Hours) Vital Signs Temp Pulse Resp BP Pulse Ox O2 Del Method 08/26/23 15:39 36.7 C 77 20 114/73 91 Room Air 08/26/23 07:39 36.7 C 69 16 131/79 96 Room Air Laboratory Results Laboratory Results - last 24 hr 08/26/23 05:58 Sodium 139 Potassium 3.9 Chloride 97 L Carbon Dioxide 37 H Anion Gap 5 BUN 13 Creatinine 1.61 H Est Cr Clr Drug Dosing 63.5 Est GFR ( Amer) 39.9 Est GFR (Non-Af Amer) 34.4 BUN/Creatinine Ratio 8.1 L Glucose 92 Calcium 8.9 IgA Pending Tiss Transglutamin IgA Pending Celiac Disease Interp Pending PG Care Time/CCT Total # of Minutes Spent Total Time Spent with Patient: Total time spent is greater than 50% in coordination of care (as documented) at patient's floor/unit and/or counseling patient: Coding Level of Care Code 91810 SUB INP/OBS CARE 2/35MIN Diagnoses Acute on chronic heart failure with preserved ejection fraction I50.33 Abdominal pannus E65 Severe obstructive sleep apnea G47.33 History of sepsis Z86.19 Lower extremity edema R60.0 Stage 3b chronic kidney disease N18.32 Morbid obesity with BMI of 50.0-59.9, adult E66.01; Z68.43 Primary hypertension I10 Hypertension type: unspecified Abdominal pain R10.9 Low back pain M54.50 Bilateral hip pain M25.551; M25.552 Solitary kidney, congenital Q60.0 Acid reflux K21.9 Candidiasis of skin B37.2 (8) Hypertension Hypertension type: unspecified Qualified Code(s): I10 - Essential (primary) hypertension
[2023-08-26] MEDS: GABAPENTIN 400 MG CAP PO SCH (19:51)
--- NOTE | 2023-08-26 21:02 | Electrocardiogram Report ---
Test Reason : Blood Pressure : / mmHG Vent. Rate : 096 BPM Atrial Rate : 096 BPM P-R Int : 154 ms QRS Dur : 090 ms QT Int : 368 ms P-R-T Axes : 033 -30 018 degrees QTc Int : 465 ms Normal sinus rhythm Left axis deviation Minimal voltage criteria for LVH, may be normal variant ( R in aVL ) Inferior infarct (cited on or before 23-JUL-2017) Anterior infarct (cited on or before 01-OCT-2017) Abnormal ECG When compared with ECG of 03-JUL-2023 15:04, No significant change Confirmed by Jai Watkins ([id number]) on 08/26/2023 9:02:07 PM Referred By: Confirmed By:Jai Watkins
[2023-08-27 07:50] LABS: BUN Creatinine Ratio 10.9 (10-20); Calcium 9.2 mg/dl (8.6-10.3); Est GFR (African American) 38.7 ml/min; Est GFR (Non-African American) 33.4 ml/min; Potassium 3.9 mmol/L (3.5-5.1)
[2023-08-27] MEDS: POLYETHYLENE (MIRALAX) 17 GM PACK PO SCH (09:38)
[2023-08-27] MEDS: diphenhydrAMINE Capsule 25 MG CAP PO ONE (09:38)
[2023-08-27] MEDS: bisacodyL 5 MG TABEC PO ONE (09:38)
--- NOTE | 2023-08-27 12:57 | Heart Failure Progress Note ---
Date of Service August 27, 2023 Assessment & Plan (1) Acute on chronic heart failure with preserved ejection fraction: (2) Lower extremity edema: (3) Abdominal pannus: (4) Dependent lymphedema: (5) Morbid obesity with BMI of 50.0-59.9, adult: Plan 1. Chronic heart failure with preserved EF: BNP is unremarkable however she is morbidly obese so it may be falsely low. CXR negative. She is likely hypervolemic however difficult exam given morbid obesity. Weight is trending down. Her actual dry weight is unclear. She has also been actively trying to lose weight over the past year. Etiology is unclear. She denies any dietary indiscretion. She's diuresing well, suspect possibly noncompliance at home? Suspect her edema is secondary to venous insufficiency/lymphedema. She confirms she's taking Bumex 2 mg BID at home. She is not taking any Metolazone, previously discontinued. She is not having any currently pulmonary symptoms and is tolerating room air. Currently getting IV Bumex 2 mg IV BID. Continue Spironolactone 50 mg BID. Would continue this with a goal of 1-2L negative per day. Continue to monitor kidney function and electrolytes.Daily STANDING weights. Strict I&Os. 1500 ml fluid restriction. She will need to closely monitor her fluid intake at home. Unclear if her volume overload is driving any of her musculoskeletal complaints but will likely benefit from optimization of her volume status regardless. Discussed the nature of heart failure and the goals of the program. She is agreeable to re-establishing follow up. Would recommend adding SGLT2i to further optimize her HFpEF- Jardiance 10 mg daily. 2. Hypertension: Well controlled. Continue current regimen 3. OHS/ANDRZEJ: Sleep study pending. Continue CPAP. Disposition: Will continue to follow during hospitalization. Anticipate close outpatient follow up in the heart failure clinic. 09/03/23 at 1100 Admission and Anticipated Discharge Date Admission Date: August 23, 2023 Subjective Patient feeling well today. Continues to improve each day. Abdomen less edematous. Lower extremity edema improving. She denies orthopnea or PND. She continues to maintain a negative fluid balance each day- net negative 17 L. Weight is downtrending. She denies chest pain, palpitaitons, cough. Physical Exam Physical Exam: Gen.: No acute distress. Alert and oriented. HEENT: Anicteric sclera. Neck: JVD improved. - HJR Cardiac: PMI was nonpalpable. No ventricular heave. Regular. Normal S1-S2. No murmurs, rubs, or gallops. Pulmonary: Clear to auscultation bilaterally without wheezes, rales, or rhonchi. Abdomen: Obese. Soft, nontender, nondistended, with normoactive bowel sounds. No bruits noted. Extremities: 2+ radial pulses bilaterally. 2+ posterior tibialis pulses bilaterally. Trace+ bilateral lower extremity edema. No cyanosis. Chronic stasis changes. Kerlex dressing at the ankles. Psychiatric: Affect appears appropriate. Results & Data Vital Signs (Past 12 Hours) Vital Signs Temp Pulse Pulse Resp BP Pulse Ox O2 Del Method 08/27/23 11:34 97.7 F 67 20 147/90 H 94 Room Air 08/27/23 07:56 97.5 F L 68 18 133/78 92 Room Air 08/27/23 07:03 73 08/27/23 04:01 98.6 F 66 17 111/71 94 Room Air 08/27/23 03:27 62 17 95 PG Care Time/CCT Total # of Minutes Spent Total Time Spent with Patient: Total time spent is greater than 50% in coordination of care (as documented) at patient's floor/unit and/or counseling patient: Heart Failure Data/Metrics Heart Failure Type: HFpEF (EF > 50%) Ejection Fraction: 60-65% Coding Level of Care Code 48481 SUB INP/OBS CARE 3/50MIN Diagnoses Acute on chronic heart failure with preserved ejection fraction I50.33 Lower extremity edema R60.0 Abdominal pannus E65 Dependent lymphedema I89.0 Morbid obesity with BMI of 50.0-59.9, adult E66.01; Z68.43
[2023-08-27] MEDS: MAGNESIUM HYDROXIDE SUSP 30 ML UDC PO ONE (18:28)
[2023-08-27] MEDS: traMADol HCL 50 MG TABLET PO PRN (18:29)
--- NOTE | 2023-08-27 19:04 | Hospitalist Progress Note ---
Date of Service August 27, 2023 Assessment & Plan (1) Acute on chronic heart failure with preserved ejection fraction: Plan: most of her exam is c/w right heart disease findings (LE edema, body wall edema, JVD, etc) repeat limited echo with intact LV and RV function no evidence of cirrhosis on CT abd/pelvis renal function stable TSH minimally elevated cont aldactone at home dose of 50mg BID has had COPIOUS diuresis since admission and now Cr is 1.6 - above her baseline hold bumex today but hopefully can resume tomorrow cause of decompensation -- noncompliance with diet? noncompliance with medicines? suspect latter appreciate Ashlyn Griffin's consultation from CHF clinic adding jardiance BMP am (2) Abdominal pannus: Plan: She was very tender over her pannus at time of admission but it is significantly better following diuresis CT a/p without abd wall cellulitis, deep abscess, panniculitis still with no discrete signs of acute panniculitis on physical exam does have candidiasis of the abdominal wall pannus - will Rx as below wound care consult appreciated (to help with ulcerated skin areas of pannus) (3) Severe obstructive sleep apnea: Plan: Patient has an upcoming sleep study Amenable to using CPAP HS while inpatient (4) History of sepsis: Plan: 09/2021 - left prosthetic knee infection with bacteremia - corynebacterium striatum hospitalized [facility] s/p revision tibial polyethylene liner in her TKR along with arthrotomy and debridement with sharp excisional debridement new rotating platform tibial insert placed initially on IV daptomycin for the next few months following initial surgery, but late summer 2021 had recurrent infection in the left knee requiring additional surgery cultures from the knee showed corynebacterium ultimately was on IV vancomycin fall 2021, then later changed to PO tedizolid 2022 tedizolid no longer available, and linezolid was not an option 12/2022 ID notes indicate she was then placed on doxycycline as chronic suppressive therapy has been on such since that time doxy could be contributing to chronic GERD and GI issues (5) Lower extremity edema: Plan: LLE with chronic lymphedema, but overall her edema in both legs has been much worse the last few weeks - likely due to #1 due to worsening LLE edema in particular obtained venous duplex study - NO DVT seen edema resolved s/p diuresis (6) Stage 3b chronic kidney disease: Plan: baseline Cr about 1.4 Cr today again 1.6 hold bumex today bmp am (7) Morbid obesity with BMI of 50.0-59.9, adult: Plan: BMI 50 (8) Hypertension: Plan: on bumex/aldactone (9) Abdominal pain: Plan: essentially resolved CT a/p without acute pathology she does have chronic GERD issues as below the sheer weight of her abdominal pannus could have been contributing to pain cont PPI/carafate cont diuresis to help with abd wall swelling much of her pain today is due to the ulcerated skin areas on abd wall (10) Low back pain: Plan: chronic, but worse acutely b/l "hip" pain likely radicular pain from her l-spine right thigh pain laterally could be L3 or L4 radicular pain or IT band tendonitis/trochanteric bursitis checked l-spine CT - severe DJD/stenosis/etc no compression fractures seen cont increased gabapentin to 400mg TID increase tramadol to 100mg prn if this doesn't help then change to oxy or norco ideally would use steroids but she has "allergy" to such (11) Bilateral hip pain: Plan: likely 2nd to referred pain from l-spine as l-spine CT showed severe DJD b/l hip x-rays without significant OA can't rule out trochanteric bursitis contributing cont tramadol but increase to 100mg prn (12) Solitary kidney, congenital: Plan: 1 functioning kidney only (13) Acid reflux: Plan: severe at baseline despite taking PPI twice daily at home along with pepcid daily add carafate qid EGD 2021 - normal esophagus and stomach, but bx of duodenum showed duodenitis the latter could be due to chronic acid issues, celiac, etc consider H. Pylori stool ag checked TTG - r/o celiac the duodenitis could be one of the reasons she has chronic nausea (14) Candidiasis of skin: Plan: pannus, skin folds of groin/pannus, etc mod-severe clotrimazole powder TID liberally to pannus/skin folds diflucan 100mg BID x 7 days - day #2 QTc on EKG wnl wound care consult to help heal the macerated/ulcerated regions -- recs appreciated Plan DVT proph - Heparin 7500u SQ TID updated pt's daughter by phone 08/25/23 and at bedside today hopefully home this weekend depending on control of her back pain cleared by PT/OT for home Admission and Anticipated Discharge Date Admission Date: August 23, 2023 Subjective tele overnight wnl dyspnea improved only abd pain is that of discomfort over macerated areas of abdominal wall pannus main complaint is that of low back pain and radicular pain of RLE tramadol helps but only lasts 3-4 hours eating fair family at bedside Review of Systems Review of Systems: gen - no fevers or chills cv - no chest pain pulm - no dyspnea at rest; no HAYES GI - no n/v Physical Exam Physical Exam: gen - morbidly obese, looks well, comfortable neck - JVD resolved mouth - MMM heart - RRR, s1 s2, no murmur lungs - CTA b/l; no rales or wheeze abd - pannus/body wall edema significantly improved; nontender to palpation; BS+ skin - stasis changes b/l shins; areas of macerated skin/ulceration on lower abdominal wall still quite irritated ext - no edema; pulses 2+ b/l Results & Data Results & Data Vital Signs (Past 12 Hours) Vital Signs Temp Pulse Pulse Resp BP Pulse Ox O2 Del Method 08/27/23 15:59 36.6 C 76 18 147/74 H 93 Room Air 08/27/23 15:44 83 08/27/23 11:34 36.5 C 67 20 147/90 H 94 Room Air 08/27/23 07:56 36.4 C L 68 18 133/78 92 Room Air Laboratory Results Laboratory Results - last 24 hr 08/27/23 06:55 Sodium 137 Potassium 3.9 Chloride 97 L Carbon Dioxide 35 H Anion Gap 5 BUN 18 Creatinine 1.65 H Est Cr Clr Drug Dosing 62.0 Est GFR ( Amer) 38.7 Est GFR (Non-Af Amer) 33.4 BUN/Creatinine Ratio 10.9 Glucose 103 H Calcium 9.2 PG Care Time/CCT Total # of Minutes Spent Total Time Spent with Patient: Total time spent is greater than 50% in coordination of care (as documented) at patient's floor/unit and/or counseling patient: Coding Level of Care Code 50445 SUB INP/OBS CARE 2/35MIN Diagnoses Acute on chronic heart failure with preserved ejection fraction I50.33 Abdominal pannus E65 Severe obstructive sleep apnea G47.33 History of sepsis Z86.19 Lower extremity edema R60.0 Stage 3b chronic kidney disease N18.32 Morbid obesity with BMI of 50.0-59.9, adult E66.01; Z68.43 Primary hypertension I10 Hypertension type: unspecified Abdominal pain R10.9 Low back pain M54.50 Bilateral hip pain M25.551; M25.552 Solitary kidney, congenital Q60.0 Acid reflux K21.9 Candidiasis of skin B37.2 (8) Hypertension Hypertension type: unspecified Qualified Code(s): I10 - Essential (primary) hypertension
[2023-08-27] MEDS: DICLOFENAC SOD 1% GEL 100 GM TUBE EXT SCH (20:05)
--- NOTE | 2023-08-27 22:28 | Podiatry Consultation ---
Date of Consultation August 27, 2023 Assessment & Plan (1) Diabetes mellitus type 2 with neurological manifestations: (2) Diabetic foot ulcer: (3) Chronic ulcer of left foot with fat layer exposed: (4) Chronic ulcer of right foot with fat layer exposed: Plan patient was examined and evaluated. We discussed at length etiology and treatment of her bilateral foot ulcerations. We did discuss that because she has not had wound care in a while, they would benefit from sharp debridement. This was performed at bedside utilizing a #15 blade to the level of the subcutaneous fat. This was a sharp excisional debridement. The wounds were dressed with Aquacel AG and a dry sterile dressing. She should continue to have these changed on a regular basis and may benefit from a more regular and dramatic debridement moving forward. This is especially true if she will remain inpatient for a while, rather than having sharp debridement performed every 2 weeks or so. For now, with this debridement, she should continue with wound care by nursing while inpatient here. We will sign off for now, though if the foot becomes more of a problem, we can be reconsulted as necessary. History of Present Illness Reason for Consultation: B/L Diabetic foot ulcers Attending Physician: Candido Bethea MD History of Present Illness patient seen at bedside. She states that she has a long-standing history of bilateral diabetic foot ulcerations and then she sees the [facility] for these on a regular basis. Still, with worsening systemic signs of infection and diabetic concerns, her ulcerations have been neglected for some time. She denies any new foot complaints and believes the ulcers are stable but simply not healing. She mentioned this to her hospitalist to consult us for evaluation and care. She denies any new pain or local infection. She has been having wound care here in the hospital with Aquasol AG applied with a daily dressing change. She states that it was last changed yesterday. She states that she was admitted for treatment of significant abdominal swelling and global health concerns, but has been improving since being in the hospital. She has no new complaints Allergies Allergy/AdvReac Type Severity Reaction Status Date / Time Corticosteroids Allergy Intermediate RASH Verified 08/24/23 01:40 (Glucocorticoids) morphine Allergy Intermediate MOUTH Verified 08/24/23 01:40 SWELLS/FACE SWELLS orange Allergy Intermediate HIVES Verified 08/24/23 01:40 Penicillins Allergy Intermediate RASH/HIVES Verified 08/24/23 01:40 prednisone Allergy Intermediate RED RASH Verified 08/24/23 01:40 adhesive Allergy Mild Skin rash Verified 08/24/23 01:40 localized zolpidem Allergy Unknown UNSURE Verified 08/24/23 01:40 pregabalin AdvReac Intermediate GOOFY Verified 08/24/23 01:40 Home Medications Medication Instructions Recorded Confirmed Type fluticasone 250 mcg-salmeterol 50 1 inh inhalation BID #1 inhaler 06/25/21 08/23/23 Rx mcg/dose blistr powdr for inhalation (Advair Diskus) cholecalciferol (vitamin D3) 50 2,000 unit PO TID #270 caps 07/18/21 08/23/23 Rx mcg (2,000 unit) capsule (Vitamin D3) acetaminophen 500 mg tablet 1,000 mg (2 x 500 mg) PO Q4H PRN 09/16/21 08/23/23 Rx fever or pain #90 tabs calcium carbonate (Tums) 900 mg PO QAM 03/03/22 08/23/23 History cyanocobalamin (vitamin B-12) 1,000 mcg PO QAM 03/03/22 08/23/23 History 1,000 mcg tablet (Vitamin B-12) cetirizine 10 mg tablet (Zyrtec) 10 mg PO DAILY #90 tabs 07/03/22 08/23/23 Rx buspirone 15 mg tablet 15 mg PO TID #270 tabs 11/20/22 08/23/23 Rx gabapentin 300 mg capsule 300 mg PO TID #270 caps 12/14/22 08/23/23 Rx TENS unit electrodes #1 ea 02/02/23 07/12/23 Rx bupropion HCl 300 mg 24 hr tablet, 300 mg PO QAM #90 tabs 02/08/23 08/23/23 Rx extended release montelukast 10 mg tablet 10 mg PO QPM #90 tabs 02/08/23 08/23/23 Rx doxycycline monohydrate 100 mg 100 mg PO BID #180 caps 03/19/23 08/23/23 Rx capsule famotidine 20 mg tablet 20 mg PO HS #90 tabs 03/23/23 08/23/23 Rx bumetanide 1 mg tablet 2 mg (2 x 1 mg) PO BID #360 tabs 04/28/23 08/23/23 Rx allopurinol 100 mg tablet 100 mg PO BID #180 tabs 05/04/23 08/23/23 Rx pantoprazole 40 mg tablet,delayed 40 mg PO BID #180 tabs 05/26/23 08/23/23 Rx release albuterol sulfate 2.5 mg/3 mL 2.5 mg (3 mL) inhalation Q6H PRN 06/25/23 08/23/23 Rx (0.083 %) solution for nebulization Shortness Of Breath #90 mL albuterol sulfate 90 mcg/actuation 2 puff inhalation Q4H PRN 06/25/23 08/23/23 Rx aerosol inhaler (Ventolin HFA) Shortness Of Breath Or Wheezing #18 grams aspirin 81 mg tablet,delayed 81 mg PO DAILY 06/25/23 08/23/23 History release duloxetine 60 mg capsule,delayed 60 mg PO BID 06/25/23 08/23/23 History release multivitamin 1 tab PO QAM #90 tabs 06/25/23 08/23/23 Rx spironolactone 50 mg tablet 50 mg PO BID 06/25/23 08/23/23 History Klor-Con M20 20 mEq See Rx Instructions PO BID #120 06/30/23 08/23/23 Rx tablet,extended release (potassium tabs chloride) tramadol 50 mg tablet See Rx Instructions PO Q6H PRN 07/27/23 08/23/23 Rx pain #90 tabs Patient History Medical History History of revision of total replacement of left knee joint Fatty liver Dependent lymphedema Stage 3b chronic kidney disease History of COVID-19 09/2021 at [facility], while you being for the knee infection. Anemia reason for procedure. iron infusions recently. Septic arthritis Sepsis 09/2021 r/t left knee infection Dyslipidemia Hypertension Chronic heart failure with preserved ejection fraction Iron deficiency anemia Venous stasis of both lower extremities Morbid obesity with BMI of 50.0-59.9, adult MDD (major depressive disorder), recurrent episode, moderate Ambulatory dysfunction Prediabetes MRSA (methicillin resistant staph aureus) culture positive 09/2021 s/p left knee infection History of CVA (cerebrovascular accident) states it was a "mini stroke" 2017 Other ovarian cyst, left side Peripheral neuropathy Lumbar spinal stenosis Depression with anxiety Degenerative joint disease, shoulder, right Chronic cutaneous venous stasis ulcer hx -- has since resolved. 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- DISCOVERED WITH INCIDENTAL IMAGING Lymphedema left side Gout Asthma Hyperlipidemia CKD (chronic kidney disease) stage 3, GFR 30-59 ml/min monitoring Chronic back pain Acid reflux TIA (transient ischemic attack) 2017- On Plavix Surgical History History of bilateral knee replacement (10/16/22) H/O knee surgery (12/2021) L knee washout w/ polyexchange S/P tonsillectomy and adenoidectomy Status post total shoulder arthroplasty (10/17/18) R History of carpal tunnel release B/L H/O ventral hernia repair History of appendectomy History of cholecystectomy Family History Mother Diabetes Coronary heart disease Myocardial infarction S/P CABG x 3 Hypertension Gallbladder disease Sister Hodgkins lymphoma Brother Kidney disease Grandmother Breast cancer Aunt Ovarian cancer Father , 02/11/20. Peripheral vascular disease Daughter Diabetes Other Cancer No family history of adverse response to anesthesia Denies family history of Prostate cancer Colorectal cancer Social History Smoking Status: Former smoker Tobacco Type: Cigarettes Age Started Using Tobacco: 22; Age Quit Using Tobacco: 24; Second Hand Exposure: No; Do You Dip or Chew Tobacco: No; Hx Alcohol Use: No Hx Substance Use: No Preferred Language: Norwegian 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 Ability: Effective Visual Impairment: Limited Hearing Ability: Normal [employer] Work[employer] Required: No Beliefs That Will Affect Care: None marital status: marital status details: ; lives with parents & 1 daughter Current Living Situation: Family Current Living Situation Comment: daughter and mom current occupational status: disabled other: 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; 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 Feels Safe at Home: Yes Childhood Exposure to Second-Hand Smoke: No Diet: regular Diet Comment: regular caffeine: No Dental Care, Regularly: No Physical Activity Frequency: Does not Exercise Seatbelt Use: always Sunscreen Use: Yes Assistive Devices: Denture - Upper, Glasses and Walker Review of Systems Review of Systems: All systems reviewed & are unremarkable except as noted in HPI & below Constitutional: + weakness and + weight gain; no fever a nd no chills Eyes: no problem reported Ear, Nose, Mouth, Throat: no problem reported Respiratory: no problem reported Cardiovascular: no problem reported Gastrointestinal: + nausea Genitourinary: no problem reported Musculoskeletal: + stiffness and + muscle weakness Integumentary: + non-healing lesions and + skin ulcer Neurologic: + loss of sensation, + numbness and + pa resthesia Psychiatric: no behavioral changes and no problem reported Physical Exam Physical Exam: bilateral lower extremity exam: DP/PT pulses 1/4 bilaterally. CFT is brisk to the digits. Advanced trophic changes are noted to the bilateral lower extremity, including thinning skin, absent hair growth, and distal cooling. No necrosis is noted. There are well-circumscribed neuropathic ulcerations noted sub-fifth metatarsal base. They are fairly symmetrical, with the right foot having a 15 mm neuropathic ulcer measuring 0.2 cm deep. The right foot ulcer is around 12 mm in diameter and 0.3 cm deep. Wound beds were 80% granular, he was able to be debrided to 100% granular with sharp debridement at bedside. No deep probing was noted. The wound margins are well adhered. This probes past the level of the skin, to the level of the subcutaneous tissue without any bone involvement. Otherwise, protective sensation is absent with no pain on palpation or sharp debridement as well. No abnormal reflexes noted. Other than moderate semirigid flatfoot deformities, no biomechanical abnormalities are noted. Constitutional: WD/WN, vitals as above + morbidly obese Eyes: PERRL, conjunctivae normal, anicteric sclerae ENMT: external ear and nose normal, oropharynx normal Mouth: + poor dentition Neck: trachea midline, no thyromegaly Respiratory: normal respiratory effort and + respiratory distress Cardiovascular: Rate/Rhythm: regular rate and regular rhythm Vessels: posterior tibial pulses present and dorsalis pedis pulses present Extremities: normal capillary refill, + pedal edema and + edema Gastrointestinal (Abdomen): Inspection/Auscultation: + abdomen distended and + abdominal edema Percussion/Palpation: + abdomen tender Musculoskeletal: Head/Neck/Chest: normocephalic and head atraumatic Spine: + limited cervical ROM Extremities: + limited ROM of extremities and + leg externally rotated Skin: no rashes, warm and dry + ulcer, + hair thinning and + nails dystrophic; no erythema and no eschar Neurologic: moves all extremities; + abnormal sensation to monofilament and no focal motor deficits Psychiatric: A+Ox3, euthymic affect Results & Data Vital Signs (Past 12 Hours) Vital Signs Temp Pulse Pulse Resp BP Pulse Ox O2 Del Method 08/27/23 19:00 36.7 C 74 18 124/77 93 Room Air 08/27/23 15:59 36.6 C 76 18 147/74 H 93 Room Air 08/27/23 15:44 83 08/27/23 11:34 36.5 C 67 20 147/90 H 94 Room Air
[2023-08-28 08:06] LABS: BUN Creatinine Ratio 12.6 (10-20); Calcium 9.4 mg/dl (8.6-10.3); Creatinine Clr Calc Pharmacy 64.2 ml/min; Est GFR (African American) 40.5 ml/min; Est GFR (Non-African American) 34.9 ml/min; Potassium 4.5 mmol/L (3.5-5.1)
[2023-08-28] MEDS: EMPAGLIFLOZIN 10 MG TAB PO SCH (09:27)
[2023-08-28] MEDS: BUMETANIDE 2 MG in SYRINGE 0 ML IV ONE (10:30)
--- NOTE | 2023-08-28 18:33 | Hospitalist Progress Note ---
Date of Service August 28, 2023 Assessment & Plan (1) Acute on chronic heart failure with preserved ejection fraction: Plan: either approaching euvolemia or is indeed compensated today most of her exam has been c/w right heart disease findings (LE edema, body wall edema, JVD, etc) repeat limited echo this admission with intact LV and RV function no evidence of cirrhosis on CT abd/pelvis renal function stable - does have baseline CKD TSH minimally elevated - doubt playing a role in her presentation cont aldactone at home dose of 50mg BID resume bumex today but only give 2mg x 1 Cr today 1.5 cause of decompensation -- noncompliance with diet? noncompliance with medicines? suspect latter appreciate Ashlyn Griffin's consultation from CHF clinic added jardiance BMP am (2) Abdominal pannus: Plan: She was very tender over her pannus at time of admission but it is significantly better following diuresis CT a/p without abd wall cellulitis, deep abscess, panniculitis still with no discrete signs of acute panniculitis on physical exam does have candidiasis of the abdominal wall pannus - will Rx as below wound care consult appreciated (to help with ulcerated skin areas of pannus) she follows with wound care center in [place]; has appointment there on 09/01/23 (3) Severe obstructive sleep apnea: Plan: Patient has an upcoming sleep study Amenable to using CPAP HS while inpatient (4) History of sepsis: Plan: 09/2021 - left prosthetic knee infection with bacteremia - corynebacterium striatum hospitalized [facility] s/p revision tibial polyethylene liner in her TKR along with arthrotomy and debridement with sharp excisional debridement new rotating platform tibial insert placed initially on IV daptomycin for the next few months following initial surgery, but late summer 2021 had recurrent infection in the left knee requiring a dditional surgery cultures from the knee showed corynebacterium ultimately was on IV vancomycin fall 2021, then later changed to PO tedizolid 2022 tedizolid no longer available, and linezolid was not an option 12/2022 ID notes indicate she was then placed on doxycycline as chronic suppressive therapy has been on such since that time doxy could be contributing to chronic GERD and GI issues (5) Lower extremity edema: Plan: resolved with diuresis due to worsening LLE edema in particular obtained venous duplex study early in the hospitalization - NO DVT seen (6) Stage 3b chronic kidney disease: Plan: baseline Cr about 1.4 Cr today 1.5 resume bumex today bmp am (7) Morbid obesity with BMI of 50.0-59.9, adult: Plan: BMI 50 (8) Hypertension: Plan: on bumex/aldactone (9) Abdominal pain: Plan: resolved except for abdominal wall discomfort from the large area of macerated skin left lower pannus CT a/p without acute pathology she does have chronic GERD issues as below the sheer weight of her abdominal pannus could have been contributing to pain cont PPI/carafate cont diuresis to help with abd wall swelling (10) Low back pain: Plan: chronic, but worse acutely b/l "hip" pain likely radicular pain from her l-spine right thigh pain laterally could be L3 or L4 radicular pain or IT band tendonitis/trochanteric bursitis checked l-spine CT - severe DJD/stenosis/etc no compression fractures seen cont increased gabapentin to 400mg TID cont increased tramadol dosing of 100mg prn ideally would use steroids but she has "allergy" to such (11) Bilateral hip pain: Plan: likely 2nd to referred pain from l-spine as l-spine CT showed severe DJD b/l hip x-rays without significant OA can't rule out trochanteric bursitis contributing cont tramadol 100mg prn (12) Solitary kidney, congenital: Plan: 1 functioning kidney only (13) Acid reflux: Plan: severe at baseline despite taking PPI twice daily at home along with pepcid daily add carafate qid EGD 2021 - normal esophagus and stomach, but bx of duodenum showed duodenitis the latter could be due to chronic acid issues, celiac, etc consider H. Pylori stool ag checked TTG - r/o celiac the duodenitis could be one of the reasons she has chronic nausea (14) Candidiasis of skin: Plan: pannus, skin folds of groin/pannus, etc mod-severe clotrimazole powder TID liberally to pannus/skin folds diflucan 100mg BID x 7 days - day #3 QTc on EKG wnl wound care consult to help heal the macerated/ulcerated regions -- recs appreciated Plan DVT proph - Heparin [id number] SQ TID updated pt's daughter by phone 4/10/24 and at bedside yesterday left message for daughter this evening cleared by PT/OT for home d/c phillips in am tomorrow home tomorrow ?? Admission and Anticipated Discharge Date Admission Date: August 23, 2023 Subjective no events overnight tele wnl only complaint is pain over the macerated/ulcerated areas over the lower left ab dominal wall pannus back and right leg pain improved with higher dose of tramadol eating well no dyspnea ok with phillips coming out tomorrow am Review of Systems Review of Systems: cv - no cp, no orthopnea; edema of legs resolved pulm - no dyspnea or cough GI - no N/V Physical Exam Physical Exam: gen - morbidly obese, looks well today neck - no JVD mouth - MMM heart - RRR, s1 s2, no murmur lungs - CTA b/l; no rales or wheeze abd - pannus/body wall edema significantly improved and/or resolved; nontender to palpation; BS+ skin - stasis changes b/l shins; areas of macerated skin/ulceration on lower abdominal wall on left still quite irritated; no active bleeding during my exam ext - no edema; pulses 2+ b/l; left leg is larger than right leg - baseline psych - a/o x 3 Results & Data Results & Data Vital Signs (Past 12 Hours) Vital Signs Temp Pulse Pulse Resp BP BP Pulse Ox 08/28/23 16:08 84 08/28/23 16:02 36.3 C L 75 18 133/78 93 08/28/23 13:08 36.4 C L 76 20 154/80 H 93 08/28/23 12:08 08/28/23 08:00 36.6 C 72 16 121/73 93 08/28/23 07:38 67 O2 Del Method 08/28/23 16:08 08/28/23 16:02 Room Air 08/28/23 13:08 Room Air 08/28/23 12:08 CPAP 08/28/23 08:00 Room Air 08/28/23 07:38 Laboratory Results Laboratory Results - last 24 hr 08/28/23 06:59 Sodium 137 Potassium 4.5 Chloride 98 Carbon Dioxide 34 H Anion Gap 5 BUN 20 Creatinine 1.59 H Est Cr Clr Drug Dosing 64.2 Est GFR ( Amer) 40.5 Est GFR (Non-Af Amer) 34.9 BUN/Creatinine Ratio 12.6 Glucose 86 Calcium 9.4 PG Care Time/CCT Total # of Minutes Spent Total Time Spent with Patient: Total time spent is greater than 50% in coordination of care (as documented) at patient's floor/unit and/or counseling patient: Coding Level of Care Code 91355 SUB INP/OBS CARE 2/35MIN Diagnoses Acute on chronic heart failure with preserved ejection fraction I50.33 Abdominal pannus E65 Severe obstructive sleep apnea G47.33 History of sepsis Z86.19 Lower extremity edema R60.0 Stage 3b chronic kidney disease N18.32 Morbid obesity with BMI of 50.0-59.9, adult E66.01; Z68.43 Primary hypertension I10 Hypertension type: unspecified Abdominal pain R10.9 Low back pain M54.50 Bilateral hip pain M25.551; M25.552 Solitary kidney, congenital Q60.0 Acid reflux K21.9 Candidiasis of skin B37.2 (8) Hypertension Hypertension type: unspecified Qualified Code(s): I10 - Essential (primary) hypertension
[2023-08-29 08:21] LABS: BUN Creatinine Ratio 16.7 (10-20); Calcium 9.5 mg/dl (8.6-10.3); Creatinine Clr Calc Pharmacy 65.5 ml/min; Est GFR (African American) 41.4 ml/min; Est GFR (Non-African American) 35.7 ml/min; Magnesium 2.5 mg/dl (1.7-2.4); Potassium 4.5 mmol/L (3.5-5.1)
[2023-08-29] MEDS: BUMETANIDE 1 MG TAB PO SCH (10:00)
--- NOTE | 2023-08-29 12:00 | Hospitalist Progress Note ---
Date of Service August 29, 2023 Assessment & Plan (1) Acute on chronic heart failure with preserved ejection fraction: Plan: compensated today transitioned back to usual diuretic regimen of bumex 2mg BID + aldactone 50mg BID repeat limited echo this admission with intact LV and RV function no evidence of cirrhosis on CT abd/pelvis renal function stable - does have baseline CKD TSH minimally elevated - doubt playing a role in her presentation - would recheck TSH in about 1 month as outpatient Cr stable today at 1.5 cause of decompensation -- noncompliance with diet? noncompliance with medicines? suspect latter appreciate Ashlyn Griffin's consultation from CHF clinic Ms Tristan will f/u with Ms Griffin post-discharge added jardiance BMP am (2) Abdominal pannus: Plan: She was very tender over her pannus at time of admission but it is significantly better following diuresis CT a/p without abd wall cellulitis, deep abscess, panniculitis still with no discrete signs of acute panniculitis on physical exam does have candidiasis of the abdominal wall pannus - will Rx as below wound care consult appreciated (to help with ulcerated skin areas of pannus) previously kaltostat sheets, ABDs, or skin protector managers advised for these 2 areas of ulceration despite such had significant bleeding this am informal correspondence had with on-call plastic surgery plan - change ABD pads to [employer] ag with optifoams will have wound care see again tomorrow she follows with wound care center in [place]; has appointment there on 09/01/23 (3) Severe obstructive sleep apnea: Plan: Patient has an upcoming sleep study Amenable to using CPAP HS while inpatient (4) History of sepsis: Plan: 09/2021 - left prosthetic knee infection with bacteremia - corynebacterium striatum hospitalized [facility] s/p revision tibial polyethylene liner in her TKR along with arthrotomy and debridement with sharp excisional debridement new rotating platform tibial insert placed initially on IV daptomycin for the next few months following initial surgery, but late summer 2021 had recurrent infection in the left knee requiring additional surgery cultures from the knee showed corynebacterium ultimately was on IV vancomycin fall 2021, then later changed to PO tedizolid 2022 tedizolid no longer available, and linezolid was not an option 12/2022 ID notes indicate she was then placed on doxycycline as chronic suppressive therapy has been on such since that time doxy could be contributing to chronic GERD and GI issues (5) Lower extremity edema: Plan: resolved with diuresis due to worsening LLE edema in particular obtained venous duplex study early in the hospitalization - NO DVT seen (6) Stage 3b chronic kidney disease: Plan: baseline Cr about 1.4 Cr today again 1.5 bmp am (7) Morbid obesity with BMI of 50.0-59.9, adult: Plan: BMI 50 (8) Hypertension: Plan: on bumex/aldactone (9) Abdominal pain: Plan: resolved except for abdominal wall discomfort from the large area of macerated skin left lower pannus CT a/p without acute pathology she does have chronic GERD issues as below the sheer weight of her abdominal pannus could have been contributing to pain cont PPI/carafate cont diuresis to help with abd wall swelling (10) Low back pain: Plan: chronic, but worse acutely b/l "hip" pain likely radicular pain from her l-spine right thigh pain laterally could be L3 or L4 radicular pain or IT band tendonitis/trochanteric bursitis checked l-spine CT - severe DJD/stenosis/etc no compression fractures seen cont increased gabapentin to 400mg TID cont increased tramadol dosing of 100mg prn ideally would use steroids but she has "allergy" to such overall her back & RLE pains are improved today (11) Bilateral hip pain: Plan: likely 2nd to referred pain from l-spine as l-spine CT showed severe DJD b/l hip x-rays without significant OA can't rule out trochanteric bursitis contributing cont tramadol 100mg prn (12) Solitary kidney, congenital: Plan: 1 functioning kidney only (13) Acid reflux: Plan: severe at baseline despite taking PPI twice daily at home along with pepcid daily add carafate qid EGD 2021 - normal esophagus and stomach, but bx of duodenum showed duodenitis the latter could be due to chronic acid issues, celiac, etc check H. Pylori stool ag checked TTG - r/o celiac the duodenitis could be one of the reasons she has chronic nausea (14) Candidiasis of skin: Plan: pannus, skin folds of groin/pannus, etc mod-severe clotrimazole powder TID liberally to pannus/skin folds diflucan 100mg BID x 7 days - day #4 QTc on EKG wnl wound care consult appreciated for macerated/ulcerated regions Plan DVT proph - Heparin [id number] SQ TID but hold this afternoon's dose due to the bleeding she had this am updated pt's daughter by phone again this evening cleared by PT/OT for home home tomorrow if no recurrent bleeding from the pannus Admission and Anticipated Discharge Date Admission Date: August 23, 2023 Subjective tele stable overnight phillips removed - voiding spontaneously scant dyspnea with activity - none at rest no LE edema abdominal pannus edema/body wall edema near baseline had episode of significant bleeding from the abdominal wall pannus this am did stop ultimately, but bleeding was brisk only discomfort is that related to the ulcerated regions eating well feels good overall Review of Systems Review of Systems: cv - no orthopnea or chest pain pulm - no cough GI - no abd pain or N/V Physical Exam Physical Exam: gen - morbidly obese, looks well neck - no or minimal JVD at 30 degrees mouth - MMM heart - RRR, s1 s2, no murmur lungs - CTA b/l; no rales or wheeze; excellent airation abd - pannus/body wall edema resolved; nontender to palpation; BS+; soft skin - stasis changes b/l shins; areas of macerated skin/ulceration on lower abdominal wall on left; 2nd cluster of tiny ulcers on the far left lateral pannus; no active bleeding during my visit; no surrounding cellulitis; recent yeast rash is improved in these areas ext - no edema; pulses 2+ b/l; left leg is larger than right leg - baseline psych - a/o x 3 Results & Data Results & Data Vital Signs (Past 12 Hours) Vital Signs Temp Pulse Pulse Resp BP BP Pulse Ox 08/29/23 11:32 36.7 C 70 18 127/68 92 08/29/23 08:00 69 08/29/23 07:00 36.3 C L 66 18 118/75 92 08/29/23 04:00 36.7 C 66 18 130/80 96 08/29/23 02:27 75 18 96 O2 Del Method 08/29/23 11:32 Room Air 08/29/23 08:00 08/29/23 07:00 Room Air 08/29/23 04:00 CPAP 04/14/24 02:27 Laboratory Results Laboratory Results - last 24 hr 08/29/23 07:35 Sodium 136 Potassium 4.5 Chloride 97 L Carbon Dioxide 34 H Anion Gap 5 BUN 26 H Creatinine 1.56 H Est Cr Clr Drug Dosing 65.5 Est GFR ( Amer) 41.4 Est GFR (Non-Af Amer) 35.7 BUN/Creatinine Ratio 16.7 Glucose 89 Calcium 9.5 Magnesium 2.5 H PG Care Time/CCT Total # of Minutes Spent Total Time Spent with Patient: Total time spent is greater than 50% in coordination of care (as documented) at patient's floor/unit and/or counseling patient: Coding Level of Care Code 64180 SUB INP/OBS CARE 3/50MIN Diagnoses Acute on chronic heart failure with preserved ejection fraction I50.33 Abdominal pannus E65 Severe obstructive sleep apnea G47.33 History of sepsis Z86.19 Lower extremity edema R60.0 Stage 3b chronic kidney disease N18.32 Morbid obesity with BMI of 50.0-59.9, adult E66.01; Z68.43 Primary hypertension I10 Hypertension type: unspecified Abdominal pain R10.9 Low back pain M54.50 Bilateral hip pain M25.551; M25.552 Solitary kidney, congenital Q60.0 Acid reflux K21.9 Candidiasis of skin B37.2 (8) Hypertension Hypertension type: unspecified Qualified Code(s): I10 - Essential (primary) hypertension
[2023-08-29] MEDS: EUCERIN CR 120 GM JAR EXT SCH (14:07)
--- NOTE | 2023-08-30 10:01 | Heart Failure Progress Note ---
Date of Service August 30, 2023 Assessment & Plan (1) Acute on chronic heart failure with preserved ejection fraction: (2) Lower extremity edema: (3) Abdominal pannus: (4) Dependent lymphedema: (5) Morbid obesity with BMI of 50.0-59.9, adult: Plan 1. Chronic heart failure with preserved EF: BNP is unremarkable however she is morbidly obese so it may be falsely low. CXR negative on admission. BUN/Cr bumped yesterday. She is likely near euvolemic however difficult exam given m orbid obesity. Weight is trending down. Suspect her dry weight is between 340- 345 lb. She has also been actively trying to lose weight over the past year. Etiology of exacerbation is unclear. She denies any dietary indiscretion. She's diuresing well, suspect possibly noncompliance at home? however she denies this. Suspect her edema is secondary to venous insufficiency/lymphedema. She confirms she's taking Bumex 2 mg BID at home. She is not taking any Metolazone, previously discontinued. She is not having any currently pulmonary symptoms and is tolerating room air. Continue Bumex 2 mg PO BID on discharge. Continue Spironolactone 50 mg BID. Daily STANDING weights. Strict I&Os. 1500 ml fluid restriction. She will need to closely monitor her fluid intake at home. Unclear if her volume overload is driving any of her musculoskeletal complaints but will likely benefit from optimization of her volume status regardless. Discussed the nature of heart failure and the goals of the program. She is agreeable to re-establishing follow up. Continue Jardiance 10 mg daily. 2. Hypertension: Well controlled. Continue current regimen 3. OHS/ANDRZEJ: Sleep study pending. Continue CPAP. Disposition: Will continue to follow during hospitalization. She is stable for discharge from a HF standpoint. Anticipate close outpatient follow up in the heart failure clinic. 09/06/23 at 1030 Admission and Anticipated Discharge Date Admission Date: August 23, 2023 Subjective Patient is feeling well. No breathing difficulties today. She has been ambulating around her room without difficulty. She continues to have some pain in her abdominal area. Her edema has improved significantly. She is net negative 19L. Weight is 347 lb on the standing scale today. Renal function bumped yesterday. She has been transitioned back to PO Bumex and continues with negative balance. Physical Exam Physical Exam: Gen.: No acute distress. Alert and oriented. HEENT: Anicteric sclera. Neck: JVD improved. - HJR Cardiac: PMI was nonpalpable. No ventricular heave. Regular. Normal S1-S2. No murmurs, rubs, or gallops. Pulmonary: Clear to auscultation bilaterally without wheezes, rales, or rhonchi. Abdomen: Obese. large pannus. Dressing. Soft, nontender, nondistended, with normoactive bowel sounds. No bruits noted. Extremities: 2+ radial pulses bilaterally. 2+ posterior tibialis pulses bilaterally. Trace+ bilateral lower extremity edema. No cyanosis. Chronic stasis changes. Kerlex dressing at the ankles. Psychiatric: Affect appears appropriate. Results & Data Vital Signs (Past 12 Hours) Vital Signs Temp Pulse Pulse Resp BP BP Pulse Ox 08/30/23 07:52 97.9 F 67 16 125/78 92 08/30/23 07:20 67 08/30/23 03:43 97.7 F 73 18 124/76 93 08/29/23 23:42 97.5 F L 76 20 166/83 H 94 08/29/23 23:11 74 O2 Del Method 08/30/23 07:52 Room Air 08/30/23 07:20 08/30/23 03:43 Room Air 08/29/23 23:42 Room Air 08/29/23 23:11 PG Care Time/CCT Total # of Minutes Spent Total Time Spent with Patient: Total time spent is greater than 50% in coordination of care (as documented) at patient's floor/unit and/or counseling patient: Coding Level of Care Code 62019 SUB INP/OBS CARE 3/50MIN Diagnoses Acute on chronic heart failure with preserved ejection fraction I50.33 Lower extremity edema R60.0 Abdominal pannus E65 Dependent lymphedema I89.0 Morbid obesity with BMI of 50.0-59.9, adult E66.01; Z68.43
[2023-08-30 10:16] LABS: Hematocrit (blood only) 44.1 % (37.0-47.0); Hemoglobin 13.9 g/dl (12.0-16.0)
[2023-08-30 10:32] LABS: BUN Creatinine Ratio 16.9 (10-20); Calcium 9.7 mg/dl (8.6-10.3); Est GFR (African American) 35.3 ml/min; Est GFR (Non-African American) 30.5 ml/min; Potassium 4.3 mmol/L (3.5-5.1)
--- NOTE | 2023-08-30 18:12 | Discharge Summary ---
Date of Service August 30, 2023 Admission HPI Per Admitting Provider Trevor is a 62yo female with PMH of HFpEF, CAD, arthritis, CVA, CKD stage III, DJD, and severe ANDRZEJ. She presented for increased swelling in the abdomen and left lower leg, with associated shortness of breath on 08/22. Patient reports that her abdominal pannus has tripled in size over the past 2 weeks. This has put increased pain on her lower extremities bilaterally, and her legs completely numb. She endorses pain along the crease of her abdominal pannus, which she describes as a burning, constant pain; rates it 10/10 at present. She has been taking tramadol (50 mg x 2 tablets) every 6 hours, which does not help. Patient notes increased dyspnea on exertion as well. She ambulates with a walker at baseline. She had a fall last week (was not using walker at time); no head strike; struck her right knee. No supplemental oxygen at home. Patient reports that she took her regular morning medications today, and that there have been no recent change in medications. She takes Bumex 1mg tablets 4 times daily. Last BM was yesterday. Patient's SpO2 was 98% on RA at time of admission; vitals otherwise stable. ED course: Bumex 1mg IV ROS: Patient endorses headache, dizziness with standing, HAYES, abdominal pain, trouble eating (4 after the first few bites), nausea, and numbness in the lower extremities bilaterally. Patient denies fever, chills, night sweats, chest pain, chest palpitations, cough, pleuritic CP, SOB at rest, vomiting, diarrhea, urinary symptoms, or blood in the urine/stool. Discharge Exam gen - morbidly obese, looks well neck - no or minimal JVD at 30 degrees mouth - MMM heart - RRR, s1 s2, no murmur lungs - CTA b/l; no rales or wheeze; excellent airation abd - pannus/body wall edema resolved; nontender to palpation; BS+; soft skin - stasis changes b/l shins; areas of macerated skin/ulceration on lower abdominal wall on left; 2nd cluster of tiny ulcers on the far left lateral pannus; no active bleeding during my visit; no surrounding cellulitis; recent yeast rash is improved in these areas ext - no edema; pulses 2+ b/l; left leg is larger than right leg - baseline psych - a/o x 3 Discharge Data Allergies Allergy/AdvReac Type Severity Reaction Status Date / Time Corticosteroids Allergy Intermediate RASH Verified 08/24/23 01:40 (Glucocorticoids) morphine Allergy Intermediate MOUTH Verified 08/24/23 01:40 SWELLS/FACE SWELLS orange Allergy Intermediate HIVES Verified 08/24/23 01:40 Penicillins Allergy Intermediate RASH/HIVES Verified 08/24/23 01:40 prednisone Allergy Intermediate RED RASH Verified 08/24/23 01:40 adhesive Allergy Mild Skin rash Verified 08/24/23 01:40 localized zolpidem Allergy Unknown UNSURE Verified 08/24/23 01:40 pregabalin AdvReac Intermediate GOOFY Verified 08/24/23 01:40 Consultations 08/23/23 17:59 ED Decision to Admit Stat 08/23/23 23:42 [facility] Program Referral Routine 08/27/23 08:08 Consult Podiatry Routine Ordered Studies 08/24/23 11:50 CT Abd and Pelvis [CT abd pelvis IV con only] Routine CT lumbar spine w con Routine US venous doppler LE LT Routine Hospital Course (1) Acute on chronic heart failure with preserved ejection fraction: compensated today transitioned back to usual diuretic regimen of bumex 2mg BID + aldactone 50mg BID repeat limited echo this admission with intact LV and RV function no evidence of cirrhosis on CT abd/pelvis renal function stable - does have baseline CKD TSH minimally elevated - doubt playing a role in her presentation - would recheck TSH in about 1 month as outpatient Cr stable today at 1.5 cause of decompensation -- noncompliance with diet? noncompliance with medicines? suspect latter appreciate Ashlyn Griffin's consultation from CHF clinic Ms Tristan will f/u with Ms Griffin post-discharge added jardiance BMP am (2) Abdominal pannus: She was very tender over her pannus at time of admission but it is significantly better following diuresis CT a/p without abd wall cellulitis, deep abscess, panniculitis still with no discrete signs of acute panniculitis on physical exam does have candidiasis of the abdominal wall pannus - will Rx as below wound care consult appreciated (to help with ulcerated skin areas of pannus) previously kaltostat sheets, ABDs, or skin protector managers advised for these 2 areas of ulceration despite such had significant bleeding this am informal correspondence had with on-call plastic surgery plan - change ABD pads to aquacel ag with optifoams will have wound care see again tomorrow she follows with wound care center in [place]; has appointment there on 09/01/23 (3) Severe obstructive sleep apnea: Patient has an upcoming sleep study Amenable to using CPAP HS while inpatient (4) History of sepsis: 09/2021 - left prosthetic knee infection with bacteremia - corynebacterium striatum hospitalized [facility] s/p revision tibial polyethylene liner in her TKR along with arthrotomy and debridement with sharp excisional debridement new rotating platform tibial insert placed initially on IV daptomycin for the next few months following initial surgery, but late summer 2021 had recurrent infection in the left knee requiring additional surgery cultures from the knee showed corynebacterium ultimately was on IV vancomycin fall 2021, then later changed to PO tedizolid 2022 tedizolid no longer available, and linezolid was not an option 12/2022 ID notes indicate she was then placed on doxycycline as chronic suppressive therapy has been on such since that time doxy could be contributing to chronic GERD and GI issues (5) Lower extremity edema: resolved with diuresis due to worsening LLE edema in particular obtained venous duplex study early in the hospitalization - NO DVT seen (6) Stage 3b chronic kidney disease: baseline Cr about 1.4 Cr today again 1.5 bmp am (7) Morbid obesity with BMI of 50.0-59.9, adult: BMI 50 (8) Hypertension: on bumex/aldactone (9) Abdominal pain: resolved except for abdominal wall discomfort from the large area of macerated skin left lower pannus CT a/p without acute pathology she does have chronic GERD issues as below the sheer weight of her abdominal pannus could have been contributing to pain cont PPI/carafate cont diuresis to help with abd wall swelling (10) Low back pain: chronic, but worse acutely b/l "hip" pain likely radicular pain from her l-spine right thigh pain laterally could be L3 or L4 radicular pain or IT band tendonitis/trochanteric bursitis checked l-spine CT - severe DJD/stenosis/etc no compression fractures seen cont increased gabapentin to 400mg TID cont increased tramadol dosing of 100mg prn ideally would use steroids but she has "allergy" to such overall her back & RLE pains are improved today (11) Bilateral hip pain: likely 2nd to referred pain from l-spine as l-spine CT showed severe DJD b/l hip x-rays without significant OA can't rule out trochanteric bursitis contributing cont tramadol 100mg prn (12) Solitary kidney, congenital: 1 functioning kidney only (13) Acid reflux: severe at baseline despite taking PPI twice daily at home along with pepcid daily add carafate qid EGD 2021 - normal esophagus and stomach, but bx of duodenum showed duodenitis the latter could be due to chronic acid issues, celiac, etc check H. Pylori stool ag checked TTG - r/o celiac the duodenitis could be one of the reasons she has chronic nausea (14) Candidiasis of skin: pannus, skin folds of groin/pannus, etc mod-severe clotrimazole powder TID liberally to pannus/skin folds diflucan 100mg BID x 7 days - day #4 QTc on EKG wnl wound care consult appreciated for macerated/ulcerated regions Plan DVT proph - Heparin [id number] SQ TID but hold this afternoon's dose due to the bleeding she had this am updated pt's daughter by phone again this evening cleared by PT/OT for home home tomorrow if no recurrent bleeding from the pannus Home Health Attestation I certify that this patient is under my care and that I, or a physicians respiratory therapist assistant working with me, had a face to-face encounter that meets the home health [id number] encounter requirements with this patient. The encounter with the patient was in whole, or in part, for the following medical condition, which is the primary reason for home health care (list medical condition): I certify that, based on my findings, the following services are medically necessary home health services: My clinical findings support the need for the above services because: Further, I certify that my clinical findings support that this patient is homebound (i.e. absences from home require considerable and taxing effort and are for medical reasons or synagogue services or infrequently or of short duration when for other reasons) because: Certification for Home Health Services: Based on the above findings, I certify that this patient is confined to the home and needs intermittent fdc care, physical therapy and/or speech therapy or continues to need occupational therapy. The patient is under my care, and I have initiated the establishment of the plan of care. This patient will be followed by a physician who will periodically review the plan of care. Discharge Plan Discharge Items Patient Disposition: Home - Home Health Services Reason For Visit: Abdominal pain & swelling Discharge Diagnosis: 1. congestive heart failure exacerbation with resulting fluid weight gain - MUCH improved 2. abdominal swelling - due to #1 - much improved 3. lumbar spinal stenosis with resulting pain in your right leg and low back 4. hives - etiology uncertain 5. ulcers of both feet 6. abdominal wall ulcers and skin irritation 7. yeast infection of groin 8. history of infected knee joint 9. severe reflux disease / heartburn Activity: Resume your previous activity Non-emergency contact: Primary Care Provider, Specialist and Director Underwriter Sales Call non-emergency contact if: you have any medication questions, your symptoms worsen, your pain is not controlled, you have a fever, your wound has increased redness, your wound has increased drainage and your wound pain has increased Follow-up/Referrals: Etelvina Cazares DO [Primary Care Provider] - 09/08/23 8:20 am Candelraia Griffin PA-C [Physician 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 Skills Instructor] - 09/06/23 10:30 am (Congestive Heart Failure Program Appointment Information Early follow up is essential to managing your heart failure. An appointment has been scheduled for you with the [facility] within 7 days of discharge. Anticipate this visit to be 30-60 minutes long. Please expect a b2b sales manager phone call from one of our nurses approximately 48 hours from discharge. They will also be placing an order for lab work to be completed 1-2 days prior to your heart failure follow up appointment. Please be sure to have this done so we can go over the results when you come in. Office Location The cardiology office building is located in front of the hospital at [address] Bring the following with you to your follow-up doctor appointments: Please bring your daily weight log any discharge paperwork all of your medication bottles with you to this visit. ) Marv Patel MD [Physician] - 09/01/23 8:30 am (to determine cause of hives; to check to see about your prednisone/steroid allergy) Diet: Heart Healthy Fluids: 1800ml (7 cups) Add Attending Provider Instructions: Call your Primary Care doctor or CLAUDIA Roth (cardiology office) if any of the following symptoms or problems start or get worse: * Shortness of breath or difficulty breathing * Wake up at night short of breath * Chest pain * Cough * Swelling of your hands, feet, or legs * More fatigued or tired with your normal activity * Palpitations - sudden fast heart beats WEIGHT * Weigh yourself every morning after using the bathroom. * Use the same scale. * Wear the same amount of clothing. * Write your weight down on a chart. * Call your Primary Care doctor or global vp creative + content marketing if you gain more than 2-3 pounds in 1-2 days. This is typically one of the first signs of fluid weight gain from heart problems. MEDICATIONS * Use this discharge instruction sheet for medication instructions. * Take your medications at the time your doctor ordered. * Do not skip a dose of your medicines. * If you miss a dose of medicine, take it as soon as possible, but DO NOT DOUBLE A DOSE. * Read your medicine information when you get home. * Know all of the side effects of your medicine. If in doubt, ask your pharmacist * Call your Primary Care doctor's office if you have any side effects. * Be sure all of your doctors know what medicine and herbs you take (including cold, flu, and herbal medicine). Take the following with you to your follow-up doctor appointments: * Weight Chart * Medication List * List of questions Do not drink excessive alcohol, beer or wine. [facility] Bottom Bleacher Provider Instructions: Mrs Tristan, You were treated for fluid build-up in your lungs/abdomen/legs with diuretics during your stay. The fluid build-up was due to congestive heart failure. You improved nicely with a considerable amount of weight loss. Your abdominal pains improved as the fluid improved. Additional problems treated included yeast infection of the skin in the lower abdomen, ulcers on both feet, ulcerations of the lower abdominal wall skin, back pain from spinal stenosis, and heartburn troubles. All of these improved during your stay. Recommendations - 1. please do NOT take your bumetanide or your spironolactone until TOMORROW late afternoon/early evening on 08/31/23. Skip tonight's doses and tomorrow morning's doses. 2. for yeast infection of skin - * fluconazole 100mg x 4 more doses, first dose TONIGHT * nystatin powder - up to three times daily to any red, itchy skin areas under the breasts, skin folds, etc 3. ulcerated areas on the abdominal wall - * TOMORROW please remove the Optifoam dressings and the Aquacel Ag dressings (the latter are light blue) * you may want to wet the Aquacel Ag dressings with some saline (you can buy saline at [facility]) to remove them more easily * cleanse the ulcerated areas with the sterile saline * pat dry with a clean towel * then place NEW Aquacel Ag on the ulcerated areas * cover the Aquacel Ag with the optifoam dressings Then be sure to follow-up on Wednesday, 08/31, with the Wound [facility] in [place] for further guidance 4. ulcers on feet - follow similar instructions as listed in #3 above; change the dressings on your feet TOMORROW 5. HOLD your potassium supplements tonight and tomorrow am; resume tomorrow EVENING, 08/31/23 6. we increased the dose of your gabapentin to 400mg three times daily; note the increased dose 7. we started a new medicine for your congestive heart failure called "jardiance"; take this daily; start TOMORROW 08/31/23 Follow-up - see separate section RETURN to [facility] if - * you have fever over 100 degrees * you have worsening shortness of breath * you have severe abdominal pains * you have any concerns about the ulcers on your feet or the abdominal wall * you have severe back pain that is not responding to your tramadol * any other concerns It was our pleasure to care for you! -Dr Bethea Pending Studies at Discharge: Yes Studies:: Testing for celiac disease; testing for H pylori infection (a bacterium that can cause chronic stomach problems) Stand-Alone Forms: My [facility] [employer], Smoking Cessation Medications and DC Order Prescriptions: New fluconazole [Diflucan] 100 mg Tablet 100 mg PO BID 2 Days Qty: 4 0RF diclofenac sodium [Voltaren Arthritis Pain] 1 % Gel 4 g EXT QID Qty: 1 0RF Rx Instructions: purchase [id number]; may use 4 grams on your lower back, either knee, either hip, back of neck. Jardiance 10 mg Tablet 10 mg PO DAILY Qty: 30 1RF Rx Instructions: for congestive heart failure sucralfate 1 gram tablet 1 g PO AC PRN (Reason: heartburn/stomach upset) Qty: 30 0RF nystatin 100,000 unit/gram powder 1 applic topical TID PRN (Reason: yeast rash under breasts, abdominal skin folds) Qty: 30 0RF Continued cholecalciferol (vitamin D3) [Vitamin D3] 50 mcg (2,000 unit) capsule 2,000 unit PO TID Qty: 270 1RF acetaminophen 500 mg tablet 1,000 mg PO Q4H PRN (Reason: fever or pain) Qty: 90 0RF buspirone 15 mg tablet 15 mg PO TID Qty: 270 1RF montelukast 10 mg tablet 10 mg PO QPM Qty: 90 1RF bupropion HCl 300 mg tablet extended release 24 hr 300 mg PO QAM Qty: 90 1RF allopurinol 100 mg tablet 100 mg PO BID Qty: 180 1RF pantoprazole 40 mg tablet,delayed release (DR/EC) 40 mg PO BID Qty: 180 1RF fluticasone propion-salmeterol [Advair Diskus] 250-50 mcg/dose blister with device 1 inh inhalation BID Qty: 1 11RF cetirizine [Zyrtec] 10 mg tablet 10 mg PO DAILY Qty: 90 1RF (DME) TENS unit electrodes Pad See Rx Instructions .Route Qty: 1 0RF Rx Instructions: As directed famotidine 20 mg tablet 20 mg PO HS Qty: 90 3RF aspirin 81 mg tablet,delayed release (DR/EC) 81 mg PO DAILY duloxetine 60 mg capsule,delayed release(DR/EC) 60 mg PO BID albuterol sulfate [Ventolin HFA] 90 mcg/actuation HFA aerosol inhaler 2 puff INHALATION Q4H PRN (Reason: Shortness Of Breath Or Wheezing) Qty: 18 3RF albuterol sulfate 2.5 mg /3 mL (0.083 %) solution for nebulization 2.5 mg inhalation Q6H PRN (Reason: Shortness Of Breath) Qty: 90 1RF multivitamin Tablet 1 tab PO QAM Qty: 90 1RF doxycycline monohydrate 100 mg capsule 100 mg PO BID Qty: 180 0RF cyanocobalamin (vitamin B-12) [Vitamin B-12] 1,000 mcg tablet 1,000 mcg PO QAM Tums 300 mg (750 mg) tablet,chewable 900 mg PO QAM Changed gabapentin 400 mg capsule 400 mg PO TID Qty: 60 0RF Rx Instructions: note the increased dose tramadol 50 mg tablet 50 - 100 mg PO Q6H PRN (Reason: pain) Qty: 20 0RF Rx Instructions: 1-2 tabs orally every 6 hours PRN; Held bumetanide 1 mg tablet 2 mg PO BID Qty: 360 3RF Hold Instructions: Resume with your evening dose on 08/31/23. potassium chloride [Klor-Con M20] 20 mEq tablet,ER particles/crystals See Rx Instructions PO BID Qty: 120 1RF Hold Instructions: hold until the evening of 08/31/23 Rx Instructions: 40mEq in AM 20mEq in PM spironolactone 50 mg tablet 50 mg PO BID Hold Instructions: resume with your EVENING dose on 08/31/23. Discharge Orders: Discharge Order (Routine); Ordered 08/30/23 Ordered By: Candido Bethea Admission Data Admit Date/Time: 08/23/23 19:15 Attending Provider: Candido Bethea Admit Provider: Candido Varma Primary Care Provider: Etelvina Cazares Other Providers: Candido Varma; Candelaria Griffin; Dougie Kumar Coding Diagnoses Acute on chronic heart failure with preserved ejection fraction I50.33 Abdominal pannus E65 Severe obstructive sleep apnea G47.33 History of sepsis Z86.19 Lower extremity edema R60.0 Stage 3b chronic kidney disease N18.32 Morbid obesity with BMI of 50.0-59.9, adult E66.01; Z68.43 Primary hypertension I10 Hypertension type: unspecified Abdominal pain R10.9 Low back pain M54.50 Bilateral hip pain M25.551; M25.552 Solitary kidney, congenital Q60.0 Acid reflux K21.9 Candidiasis of skin B37.2
[2023-08-31 01:38] LABS: IgA Serum 356 mg/dL (47-310); Tis Trans IgA <1.0 U/mL
== END 2023-08-30 19:18 | disposition home health service (06) | DRG 264 ==
LOC: ED 14:49 → EDINP 19:15 → SUATTDRO 19:15 → 2N 22:47
DX: M70.61 Trochanteric bursitis, right hip; I50.33 Acute on chronic diastolic (congestive) heart failure; I89.0 Lymphedema, not elsewhere classified; Q60.0 Renal agenesis, unilateral; Z79.899 Other long term (current) drug therapy; I13.0 Hypertensive heart and chronic kidney disease with heart failure and stage 1 through stage 4 chronic kidney disease, or unspecified chronic kidney disease; E65 Localized adiposity; B37.2 Candidiasis of skin and nail; E78.5 Hyperlipidemia, unspecified; E66.2 Morbid (severe) obesity with alveolar hypoventilation; L97.422 Non-pressure chronic ulcer of left heel and midfoot with fat layer exposed; N18.32 Chronic kidney disease, stage 3b; E87.3 Alkalosis; K21.9 Gastro-esophageal reflux disease without esophagitis; Z88.0 Allergy status to penicillin; Z88.8 Allergy status to other drugs, medicaments and biological substances; M70.62 Trochanteric bursitis, left hip; L97.412 Non-pressure chronic ulcer of right heel and midfoot with fat layer exposed; Z86.16 Personal history of COVID-19; K29.80 Duodenitis without bleeding; G47.33 Obstructive sleep apnea (adult) (pediatric); E11.40 Type 2 diabetes mellitus with diabetic neuropathy, unspecified; Z87.891 Personal history of nicotine dependence; M54.16 Radiculopathy, lumbar region; E11.22 Type 2 diabetes mellitus with diabetic chronic kidney disease; Z88.5 Allergy status to narcotic agent; Z79.82 Long term (current) use of aspirin; E11.621 Type 2 diabetes mellitus with foot ulcer; Z68.43 Body mass index [BMI] 50.0-59.9, adult

== ENCOUNTER 2023-10-27 14:47 | Inpatient (IN) ==
[2023-10-27 15:55] LABS: Basophils # (auto) 0.06 K/uL (0.00-0.20); Basophils % (auto) 0.6 %; Eosinophils # (auto) 0.58 K/uL (0.00-0.50); Hematocrit (blood only) 42.9 % (37.0-47.0); Hemoglobin 13.8 g/dl (12.0-16.0); Immature Granulocytes # (auto) 0.03 K/uL (0.01-0.20); Immature Granulocytes % (auto) 0.3 %; Lymphocytes # (auto) 1.77 K/uL (1.20-3.40); Lymphocytes % (auto) 18.3 %; Mean Corpuscular Hemoglobin 27.1 pg (25.0-34.0); Mean Corpuscular Hgb Conc 32.2 g/dL (32.0-36.0); Mean Corpuscular Volume 84.1 fL (80.0-100.0); Mean Platelet Volume 10.1 fL (9.4-12.4); Monocytes # (auto) 0.58 K/uL (0.11-0.59); Neutrophils # (auto) 6.64 K/uL (1.40-6.50); Neutrophils % (auto) 68.8 %; Platelet Count 321 K/uL (130-400); RDW Coefficient of Variation 14.6 % (11.5-14.5); RDW Standard Deviation 44.2 fL (36.4-46.3); White Blood Count 9.66 K/ul (4.8-10.8)
[2023-10-27 16:03] LABS: Alanine Aminotransferase 15 U/L (7-52); Albumin Globulin Ratio 0.9 (0.9-2); Alkaline Phosphatase 88 U/L (34-104); Anion Gap 5 (3-11); Aspartate Aminotransferase 18 U/L (13-39); BUN Creatinine Ratio 15.2 (10-20); Bilirubin,Total 0.6 mg/dl (0.2-1.0); Blood Urea Nitrogen 24 mg/dl (6-23); Calcium 9.4 mg/dl (8.6-10.3); Carbon Dioxide 34 mmol/L (21-32); Chloride 98 mmol/L (98-107); Est GFR (African American) 40.5 ml/min; Est GFR (Non-African American) 34.9 ml/min; Globulin 4.3 gm/dl (2.5-4.0); Glucose 92 mg/dl (70-99(Fasting)); Potassium 4.1 mmol/L (3.5-5.1); Sodium 137 mmol/L (136-145); Total Protein 8.3 gm/dl (6.0-8.3)
--- NOTE | 2023-10-27 16:17 | XRay Report ---
XR chest 1V not portable CLINICAL HISTORY: SOB TECHNIQUE: Single frontal radiograph of the chest was obtained. Comparison: Comparison is made to chest radiograph 08/23/2023 FINDINGS: Right shoulder arthroplasty is seen. The cardiomediastinal silhouette is normal. The lungs are clear. No evidence of pleural effusion or pneumothorax. IMPRESSION: No acute abnormalities and in particular no radiographic evidence of pneumonia. ACT 112: Negative or not required by law. Electronically signed by: Christian Duran M.D. 10/27/2023 4:15 PM
--- NOTE | 2023-10-27 17:11 | Emergency Department Note ---
Impression & Plan Edema of abdominal wall, Fluid overload, Edema of both lower extremities, CRF (chronic renal failure), Failure of outpatient treatment ED Provider Note NAME: CELIO ARGUELLES AGE: 63 SEX: F : 1960 ARRIVES VIA: Walk-In INFORMANT: [Patient] ED PROVIDER(S): [Will Crump MD] CHIEF COMPLAINT: Edema, swelling HISTORY OF PRESENT ILLNESS: The patient is a 63-year-old female who states that in the last week, the size of her abdominal wall has doubled. She has had increasing leg edema as well and is a short of breath. No fever. The patient states that her doctors office increased her diuretic but it has not helped. She presents for evaluation, the last time this happened, she required a hospital stay and IV diuresis. There has been no diarrhea or vomiting. She has not had coughing. She has noticed some burning at the end of her urination. PMHx/PSHx/Social Hx: See Below PHYSICAL EXAM: GENERAL: Patient is in no acute distress. HEENT: No acute trauma, normocephalic atraumatic, mucous membranes moist, no nasal congestion. NECK: No stridor, no adenopathy, no meningismus, trachea is midline. LUNGS: Clear to auscultation bilaterally when listening anterior, no wheeze, no rhonchi, breath sounds equal. HEART: 2/6 systolic murmur, regular rate and rhythm. ABDOMEN: Soft, nontender, no peritonitis. Abdominal wall edema that hangs down across the pelvis and upper legs. No warmth to suggest cellulitis. EXTREMITIES: No cyanosis, full range of motion of all the joints without pain or difficulty. Moderate bilateral pedal edema. NEUROLOGIC: Oriented x 3, no acute motor or sensory deficits, no focal weakness. SKIN: No jaundice, no diaphoresis. DIFFERENTIAL DIAGNOSIS: Edema, renal failure, electrolyte imbalance, fluid overload, medication noncompliance, CHF, among others. EMERGENCY DEPARTMENT PROCEDURES: MEDICAL DECISION MAKING: There is no leukocytosis or concerning anemia. There is a normal platelet count. There is some renal insufficiency but this appears baseline when looking back at previous testing. No electrolyte abnormality in need of emergent correction. No concerning liver enzyme elevation. Urinalysis does not show infection. Chest x-ray does not show CHF or pneumonia. On exam, the patient had pedal edema and edema of her abdominal wall. The patient has had this issue before. She is going require IV diuresis. A Bales catheter was placed to help monitor her urine output. She was given 3 mg of IV Bumex. I did speak with the patient, I did speak with case management, the on-call hospitalist was consulted. The reason for the sudden increase in the amount of fluid across her abdominal wall is unclear. She has failed outpatient management this week. Prior/Outside records/notes reviewed: None ECG per my interpretation: Indication was shortness of breath. The ECG shows a normal sinus rhythm with a rate of 84. There is a potential old anterior and old inferior infarct. There is no acute ST elevation, no PVCs. The QTc is 397. Continuous Cardiac Monitoring per my interpretation: An order was placed for continuous cardiac monitoring. The monitor shows a rate of 85 with normal sinus rhythm. Imaging/x-ray results per my interpretation: Chest x-ray does not show CHF or pneumonia. Chronic Medical/Social conditions affecting care: Obesity Care/Management discussed with: Case management, the on-call hospitalist. Level of care consideration(s): After review of the information above and other included data: --I believe the patient requires escalation of care to admission DISPOSITION: Admission Past Med/Surg History Problem List Failure of outpatient treatment (Acute) CRF (chronic renal failure) (Acute) Edema of both lower extremities (Acute) Fluid overload (Acute) Edema of abdominal wall (Acute) Ulcer of both feet Volume overload Preoperative cardiovascular examination Lymphadenopathy of left cervical region Urticaria Chronic ulcer of left foot with fat layer exposed Diabetic foot ulcer Diabetes mellitus type 2 with neurological manifestations Candidiasis of skin Solitary kidney, congenital Bilateral hip pain Low back pain Weakness (Acute) History of sepsis Lower extremity edema (Acute) CHF (congestive heart failure) (Acute) Abdominal pannus Fatty liver Dependent lymphedema Stage 3b chronic kidney disease Anemia reason for procedure. iron infusions recently. 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 Other ovarian cyst, left side Vitamin D deficiency Peripheral neuropathy Lumbar spinal stenosis 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- DISCOVERED WITH INCIDENTAL IMAGING Gout CKD (chronic kidney disease) stage 3, GFR 30-59 ml/min monitoring Chronic back pain Acid reflux Medical History Hx-TIA (transient ischemic attack) 2017 > ASA for prevention > no residual effects Hx of sepsis 09/2021 r/t left knee infection Hx MRSA infection 09/2021 s/p left knee infection > resolved > continues with doxycycline daily for prevention Hypertension Lumbar spinal stenosis Arthritis Allergic rhinitis Gout Other ovarian cyst, left side present, just monitoring Acid reflux Severe obstructive sleep apnea cpap Stage 3 chronic kidney disease follows with Dr. Wood Fatty liver CHF (congestive heart failure) follows with Ashlyn Griffin Solitary kidney, congenital Diabetes mellitus, type 2 Ulcer of foot one ulcer present to bottom of bilat feet > follows with wound clinic at [place] Chronic ulcer of right foot with fat layer exposed sees wound clinic > bilat feet at present History of COVID-19 09/2021 Septic arthritis resolved Iron deficiency anemia Venous stasis of both lower extremities MDD (major depressive disorder), recurrent episode, moderate Ambulatory dysfunction uses walker Depression with anxiety Degenerative joint disease, shoulder, right Lymphedema left leg and abdomen / chronic Asthma well controlled, rare res inh use Hyperlipidemia no meds Surgical History History of revision of total replacement of left knee joint History of cardiac cath History of colonoscopy History of esophagogastroduodenoscopy (EGD) History of bilateral knee replacement (10/16/22) H/O knee surgery (12/2021) S/P tonsillectomy and adenoidectomy Status post total shoulder arthroplasty (10/17/18) History of carpal tunnel release H/O ventral hernia repair History of appendectomy History of cholecystectomy Family History Mother Diabetes Coronary heart disease Myocardial infarction S/P CABG x 3 Hypertension Gallbladder disease Sister Hodgkins lymphoma Brother Kidney disease Grandmother Breast cancer Aunt Ovarian cancer Father Peripheral vascular disease Daughter Diabetes Other Cancer No family history of adverse response to anesthesia Denies family history of Prostate cancer Colorectal cancer Social History Smoking Status: Former smoker Tobacco Type: Cigarettes Age Started Using Tobacco: 22; Age Quit Using Tobacco: 24; Second Hand Exposure: No; Do You Dip or Chew Tobacco: No; Hx Alcohol Use: No Hx Substance Use: No Preferred Language: Mohawk 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 Ability: Effective Visual Impairment: Limited Hearing Ability: Normal Sap Senior Developer Required: No Beliefs That Will Affect Care: None marital status: marital status details: ; lives with parents & 1 daughter Current Living Situation: Parent and Family Current Living Situation Comment: daughter and mom current occupational status: disabled other: worked in [employer] in [employer]; 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 Feels Safe at Home: Yes Childhood Exposure to Second-Hand Smoke: No Diet: regular Diet Comment: regular caffeine: No Dental Care, Regularly: No Physical Activity Frequency: Does not Exercise Seatbelt Use: always Sunscreen Use: Yes Assistive Devices: CPAP and Walker Allergies Allergies Allergy/AdvReac Type Severity Reaction Status Date / Time Corticosteroids Allergy Intermediate RASH Verified 10/21/23 15:37 (Glucocorticoids) morphine Allergy Intermediate MOUTH Verified 10/21/23 15:37 SWELLS/FACE SWELLS Penicillins Allergy Intermediate RASH/HIVES Verified 10/21/23 15:37 prednisone Allergy Intermediate RED RASH Verified 10/21/23 15:37 adhesive Allergy Mild Skin rash Verified 10/21/23 15:37 localized zolpidem Allergy Unknown UNSURE Verified 10/21/23 15:37 pregabalin AdvReac Intermediate GOOFY Verified 10/21/23 15:37 Home Meds Home Medications Medication Instructions Recorded Confirmed calcium carbonate (Tums) 900 mg PO QAM 03/03/22 10/27/23 cyanocobalamin (vitamin B-12) 1,000 mcg PO QAM 03/03/22 10/27/23 1,000 mcg tablet (Vitamin B-12) aspirin 81 mg tablet,delayed 81 mg PO QAM 06/25/23 10/27/23 release duloxetine 60 mg capsule,delayed 60 mg PO BID 06/25/23 10/27/23 release spironolactone 50 mg tablet 50 mg PO BID 06/25/23 10/27/23 gabapentin 400 mg capsule 400 mg PO 4XD 09/09/23 10/27/23 buspirone 15 mg tablet 20 mg PO TID 10/20/23 10/27/23 cetirizine 10 mg tablet (Zyrtec) 10 mg PO BID 10/20/23 10/27/23 doxycycline hyclate 100 mg tablet 100 mg PO BID 10/20/23 10/27/23 empagliflozin 10 mg tablet 10 mg PO QAM 10/20/23 10/27/23 (Jardiance) losartan 25 mg tablet 25 mg PO QAM 10/20/23 10/27/23 Previous Rx's Medication Instructions Recorded fluticasone 250 mcg-salmeterol 50 1 inh inhalation BID #1 inhaler 06/25/21 mcg/dose blistr powdr for inhalation (Advair Diskus) cholecalciferol (vitamin D3) 50 2,000 unit PO TID #270 caps 07/18/21 mcg (2,000 unit) capsule (Vitamin D3) acetaminophen 500 mg tablet 1,000 mg (2 x 500 mg) PO Q4H PRN 09/16/21 fever or pain #90 tabs bupropion HCl 300 mg 24 hr tablet, 300 mg PO QAM #90 tabs 02/08/23 extended release famotidine 20 mg tablet 20 mg PO HS #90 tabs 03/23/23 pantoprazole 40 mg tablet,delayed 40 mg PO BID #180 tabs 05/26/23 release albuterol sulfate 2.5 mg/3 mL 2.5 mg (3 mL) inhalation Q6H PRN 06/25/23 (0.083 %) solution for nebulization Shortness Of Breath #90 mL multivitamin 1 tab PO QAM #90 tabs 06/25/23 diclofenac sodium 1 % topical gel 4 g EXT QID #1 tube 08/30/23 (Voltaren Arthritis Pain) nystatin 100,000 unit/gram topical 1 applic topical TID PRN yeast 08/30/23 powder rash under breasts, abdominal skin folds #30 grams sucralfate 1 gram tablet 1 g PO AC PRN heartburn/stomach 08/30/23 upset #30 tabs Klor-Con M20 20 mEq See Rx Instructions PO BID #120 09/14/23 tablet,extended release (potassium tabs chloride) hydroxyzine HCl 25 mg tablet 25 mg PO .qhs Allergy #30 tabs 09/17/23 allopurinol 100 mg tablet 100 mg PO BID #180 tabs 09/21/23 montelukast 10 mg tablet 10 mg PO QPM #90 tabs 09/21/23 albuterol sulfate 90 mcg/actuation 2 puff inhalation Q4H PRN 09/27/23 aerosol inhaler (Ventolin HFA) Shortness Of Breath Or Wheezing #18 grams CPAP Supplies #1 ea 09/28/23 CPAP Machine #1 ea 09/29/23 bumetanide 1 mg tablet 2 mg (2 x 1 mg) PO BID #360 tabs 10/21/23 Results & Data (ED) Vital Signs Vital Signs - 24 hr 10/27/23 14:48 10/27/23 16:48 Temperature 36.9 C Temperature Source Temporal Artery Scan Pulse Rate 95 H Pulse Rate [Apical] 85 Pulse Rhythm Regular Pulse Strength Normal Respiratory Rate 20 18 Respiratory Effort / Characteristics Non-Labored Spontaneous Respiratory Depth Normal Blood Pressure 155/76 H Blood Pressure [Right Arm] 146/78 H Blood Pressure Mean 102 Blood Pressure Mean [Right Arm] 100 Blood Pressure Position Sitting Pulse Oximetry 98 98 Oxygen Delivery Method Room Air Room Air Sepsis Recent Fever Within 48 Hours No Sepsis New/Unexplained Change in Mental Status N/A Sepsis Action Taken by Nursing No Action Required Home Medications Current Medication List: was personally reviewed by me Laboratory Data Attestation: I reviewed the patient's lab results. 10/27/23 15:26 10/27/23 15:26 Lab Results 10/27/23 Range/Units 15:26 WBC 9.66 (4.8-10.8) K/ul RBC 5.10 (4.20-5.40) M/uL Hgb 13.8 (12.0-16.0) g/dl Hct 42.9 (37.0-47.0) % MCV 84.1 (80.0-100.0) fL MCH 27.1 (25.0-34.0) pg MCHC 32.2 (32.0-36.0) g/dL RDW Std Deviation 44.2 (36.4-46.3) fL RDW Coeff of Cleo 14.6 H (11.5-14.5) % Plt Count 321 (130-400) K/uL MPV 10.1 (9.4-12.4) fL Immature Gran % (Auto) 0.3 % Neut % (Auto) 68.8 % Lymph % (Auto) 18.3 % [place] % (Auto) 6.0 % Eos % (Auto) 6.0 % Baso % (Auto) 0.6 % Neut # (Auto) 6.64 H (1.40-6.50) K/uL Lymph # (Auto) 1.77 (1.20-3.40) K/uL [place] # (Auto) 0.58 (0.11-0.59) K/uL Eos # (Auto) 0.58 H (0.00-0.50) K/uL Baso # (Auto) 0.06 (0.00-0.20) K/uL Immature Gran # (Auto) 0.03 (0.01-0.20) K/uL Sodium 137 (136-145) mmol/L Potassium 4.1 (3.5-5.1) mmol/L Chloride 98 (98-107) mmol/L Carbon Dioxide 34 H (21-32) mmol/L Anion Gap 5 (3-11) BUN 24 H (6-23) mg/dl Creatinine 1.58 H (0.6-1.2) mg/dl Est Cr Clr Drug Dosing Not Reportable Est GFR ( Amer) 40.5 ml/min Est GFR (Non-Af Amer) 34.9 ml/min BUN/Creatinine Ratio 15.2 (10-20) Glucose 92 (70-99(Fasting)) mg/dl Calcium 9.4 (8.6-10.3) mg/dl Magnesium 1.9 (1.7-2.4) mg/dl Total Bilirubin 0.6 (0.2-1.0) mg/dl AST 18 (13-39) U/L ALT 15 (7-52) U/L Alkaline Phosphatase 88 (34-104) U/L Total Protein 8.3 (6.0-8.3) gm/dl Albumin 4.0 (3.4-5.0) gm/dl Globulin 4.3 H (2.5-4.0) gm/dl Albumin/Globulin Ratio 0.9 (0.9-2) Administered Medications Heparin Sodium (Porcine) (Heparin Sod 5,000 Unit/0.5 Ml Vial) 5,000 units SQ Q8 LEOBARDO Stop: 11/26/23 21:59 Last Admin: 10/27/23 22:11 Dose: 5,000 units Documented By: JES Insulin Aspart (Insulin Aspart Per Unit Charge) 0 units SC ACHS LEOBARDO Stop: 11/26/23 20:59 Last Admin: 10/27/23 22:17 Dose: Not Given Documented By: NRTello Discontinued Medications Acetaminophen (Acetaminophen 500 Mg Tab) 1,000 mg PO NOW STA Stop: 10/27/23 17:50 Last Admin: 10/27/23 18:22 Dose: 1,000 mg Documented By: CC Bumetanide 3 mg/ Syringe 12 mls @ 4 mls/min IV ONE ONE Stop: 10/27/23 17:03 Last Admin: 10/27/23 18:31 Dose: 4 mls/min Documented By: CC Bumetanide 3 mg/ Syringe 12 mls @ 4 mls/min IV ONE ONE Stop: 10/27/23 21:02 Last Admin: 10/27/23 20:50 Dose: 4 mls/min Documented By: JES Imaging Data Radiologist's Impression: Chest X-Ray 10/27/23 14:53 XR chest 1V not portable CLINICAL HISTORY: SOB TECHNIQUE: Single frontal radiograph of the chest was obtained. Comparison: Comparison is made to chest radiograph 08/23/2023 FINDINGS: Right shoulder arthroplasty is seen. The cardiomediastinal silhouette is normal. The lungs are clear. No evidence of pleural effusion or pneumothorax. IMPRESSION: No acute abnormalities and in particular no radiographic evidence of pneumonia. ACT 112: Negative or not required by law. Electronically signed by: Christian Duran M.D. 10/27/2023 4:15 PM Discharge Plan Visit Data Chief Complaint: Swelling/Edema to Extremity Stated Complaint: SEVERE SWELLING, FLUID RETENTION ED Provider: Will Crump Discharge Problem: Edema of abdominal wall, Fluid overload, Edema of both lower extremities, CRF (chronic renal failure), Failure of outpatient treatment Patient Disposition: Admitted As Inpatient Condition: Good Discharge Instructions Interventions: ED Discharge Assessment Last Done: 10/27/23 20:19 Discharge Problem: Fluid overload Qualifiers: Hypervolemia type: unspecified Qualified Code(s): E87.70 - Fluid overload, unspecified CRF (chronic renal failure) Qualifiers: Chronic kidney disease stage: unspecified stage Qualified Code(s): N18.9 - Chronic kidney disease, unspecified
--- NOTE | 2023-10-27 17:12 | History & Physical Report ---
Date of Service October 27, 2023 Assessment & Plan (1) Acute on chronic heart failure with preserved ejection fraction: Plan: Admit to [facility] telemetry on pulse oximetry Currently stable and nontoxic-appearing Presented to the ED today due to ongoing swelling and weight gain despite increased doses of home Bumex from 2 mg p.o. twice daily to 3 mg p.o. twice daily Similar to her last admission in August of this year, it appears that dietary indiscretion is the primary factor Continue to stress importance of limiting sodium/fluid intake, patient should not be adding sodium to her food and should limit the amount of soda and total amount of water she drinks daily Bales catheter has been placed and patient was given 3 mg of IV Bumex prior to admission Will plan to continue with 3 mg of IV Bumex twice daily for now, patient was likely over diuresed during last admission when she was initially on 4 mg IV twice daily Monitor intake output every shift, daily renal function electrolytes Monitor daily weight SQ heparin for DVT prophylaxis heart healthy diet with 2 g sodium and 1500 ml fluid restriction AM CBC, CMP, mag, PT/INR (2) Volume overload: Plan: Patient's weight is 175 kg today, up from 165 kg as of 10/21/2023 Heart failure team was consulted during last admission and estimated patient's dry weight to be near [id number] LBS Rest of care per acute on chronic heart failure plan (3) Diabetes mellitus type 2 with neurological manifestations: Plan: Monitor BSG ACHS, goal is [id number] Last hemoglobin A1c 06/25/2023 was 5.9 Will plan to hold Jardiance for now Start conservative management as her glucose on arrival was in the 90s, correction factor 50 with carb ratio of 15 ACHS This regimen is needed (4) Stage 3b chronic kidney disease: Plan: Renal function is currently stable, monitor daily renal function electrolytes with IV diuresis (5) Hypertension: Plan: Stable Continue losartan, will hold spironolactone for now with IV diuresis (6) History of CVA (cerebrovascular accident): Plan: -Continue aspirin and statin (7) Hx MRSA infection: Plan: Continue prophylactic doxycycline (8) Ulcer of both feet: Plan: Patient is followed in the wound care clinic for chronic ulcers on the plantar aspect of the bilateral feet appear clean and noninfected at this time Patient was last seen in the wound care clinic last week Will place a wound care nurse consult to follow the patient while admitted Plan Patient was discussed with Avani at the time of the admission History of Present Illness Chief Complaint: Swelling Primary Care Provider: Etelvina Cazares DO Monterroso is a 63-year-old female with a past medical history significant for heart failure with preserved ejection fraction, coronary artery disease, previous stroke, CKD stage III, severe sleep apnea, morbid obesity history of septic arthritis in the left knee now on chronic doxycycline prophylaxis, GERD who presented to [facility] ED on 10/17/2023 due to progressive abdominal swelling despite increased doses of oral diuretics outpatient. The patient is followed in the heart failure clinic and was admitted to [facility] from 08/23/23-08/30/23 of this year for acute exacerbation of her chronic heart failure thought to mainly be due to dietary indiscretion. She required IV diuresis and had approximately 15 kg weight loss between her last admission and discharge. She was recently seen in the heart failure clinic on 10/21/2023 and was told to increase her p.o. Bumex from 2 mg twice daily to 3 mg twice daily did not have improvement in her swelling. She remained stable while in the ER today. Labs including CBC and CMP were unremarkable. Chest x- ray was read as negative for acute findings. Prior to admission the patient had a Bales catheter placed and was ordered 3 mg IV Bumex. Patient was lying in bed in no acute distress at the time of the exam with her daughter and mother bedside, history was obtained from all. Patient confirms the above history despite increasing dose of Bumex 3 mg twice daily she is continue to gain weight and swelling in her abdomen. Has noticed some increased shortness of breath with exertion but is otherwise been in her normal state of health. I asked to if she was sticking to her sodium and fluid restrictions at home, she initially said yes, I then asked her specifically how much sodium and daily fluid intake she was using. She responded with, "well, I only use salt for cooking and I have been drinking 4 16 ounce bottles of water daily". Her family then added that she is still drinking multiple bottles of Pepsi a day as well. She confirms this stating that she typically drinks 2 -3 16 ounce bottles of Pepsi daily as well. I explained to her that Pepsi will also have a good amount of sodium per bottle, she responded with "oh yeah, I have never thought that". She denies recent fever, chills, chest pain, cough, nausea/vomiting, dysuria, hematuria, melena, diarrhea, and recent trauma. She states that her abdomen is always painful when it becomes the swollen. We discussed CODE STATUS, she wishes to be a full code at this time and for her daughter to make medical decisions for her if she cannot make them herself. Please refer to Dr. Varma's attestation for any changes to the treatment plan Allergies Allergy/AdvReac Type Severity Reaction Status Date / Time Corticosteroids Allergy Intermediate RASH Verified 10/21/23 15:37 (Glucocorticoids) morphine Allergy Intermediate MOUTH Verified 10/21/23 15:37 SWELLS/FACE SWELLS Penicillins Allergy Intermediate RASH/HIVES Verified 10/21/23 15:37 prednisone Allergy Intermediate RED RASH Verified 10/21/23 15:37 adhesive Allergy Mild Skin rash Verified 10/21/23 15:37 localized zolpidem Allergy Unknown UNSURE Verified 10/21/23 15:37 pregabalin AdvReac Intermediate GOOFY Verified 10/21/23 15:37 Home Medications Medication Instructions Recorded Confirmed Type fluticasone 250 mcg-salmeterol 50 1 inh inhalation BID #1 inhaler 06/25/2105/09 Rx mcg/dose blistr powdr for inhalation (Advair Diskus) cholecalciferol (vitamin D3) 50 2,000 unit PO TID #270 caps 07/18/21 10/27/23 Rx mcg (2,000 unit) capsule (Vitamin D3) acetaminophen 500 mg tablet 1,000 mg (2 x 500 mg) PO Q4H PRN 09/16/21 10/27/23 Rx fever or pain #90 tabs calcium carbonate (Tums) 900 mg PO QAM 03/03/22 10/27/23 History cyanocobalamin (vitamin B-12) 1,000 mcg PO QAM 03/03/22 10/27/23 History 1,000 mcg tablet (Vitamin B-12) bupropion HCl 300 mg 24 hr tablet, 300 mg PO QAM #90 tabs 02/08/23 10/27/23 Rx extended release famotidine 20 mg tablet 20 mg PO HS #90 tabs 03/23/23 10/27/23 Rx pantoprazole 40 mg tablet,delayed 40 mg PO BID #180 tabs 05/26/23 10/27/23 Rx release albuterol sulfate 2.5 mg/3 mL 2.5 mg (3 mL) inhalation Q6H PRN 06/25/23 10/27/23 Rx (0.083 %) solution for nebulization Shortness Of Breath #90 mL aspirin 81 mg tablet,delayed 81 mg PO QAM 06/25/23 10/27/23 History release duloxetine 60 mg capsule,delayed 60 mg PO BID 06/25/23 10/27/23 History release multivitamin 1 tab PO QAM #90 tabs 06/25/23 10/27/23 Rx spironolactone 50 mg tablet 50 mg PO BID 06/25/23 10/27/23 History diclofenac sodium 1 % topical gel 4 g EXT QID #1 tube 08/30/23 10/27/23 Rx (Voltaren Arthritis Pain) nystatin 100,000 unit/gram topical 1 applic topical TID PRN yeast 08/30/23 10/27/23 Rx powder rash under breasts, abdominal skin folds #30 grams sucralfate 1 gram tablet 1 g PO AC PRN heartburn/stomach 08/30/23 10/27/23 Rx upset #30 tabs gabapentin 400 mg capsule 400 mg PO 4XD 09/09/23 10/27/23 History Klor-Con M20 20 mEq See Rx Instructions PO BID #120 09/14/23 10/27/23 Rx tablet,extended release (potassium tabs chloride) hydroxyzine HCl 25 mg tablet 25 mg PO .qhs Allergy #30 tabs 09/17/23 10/27/23 Rx allopurinol 100 mg tablet 100 mg PO BID #180 tabs 09/21/23 10/27/23 Rx montelukast 10 mg tablet 10 mg PO QPM #90 tabs 09/21/23 10/27/23 Rx albuterol sulfate 90 mcg/actuation 2 puff inhalation Q4H PRN 09/27/23 10/27/23 Rx aerosol inhaler (Ventolin HFA) Shortness Of Breath Or Wheezing #18 grams CPAP Supplies #1 ea 09/28/23 10/27/23 Rx CPAP Machine #1 ea 09/29/23 10/27/23 Rx buspirone 15 mg tablet 20 mg PO TID 10/20/23 10/27/23 History cetirizine 10 mg tablet (Zyrtec) 10 mg PO BID 10/20/23 10/27/23 History doxycycline hyclate 100 mg tablet 100 mg PO BID 10/20/23 10/27/23 History empagliflozin 10 mg tablet 10 mg PO QAM 10/20/23 10/27/23 History (Jardiance) losartan 25 mg tablet 25 mg PO QAM 10/20/23 10/27/23 History bumetanide 1 mg tablet 2 mg (2 x 1 mg) PO BID #360 tabs 10/21/23 10/27/23 Rx Past Med/Surg History Problem List Failure of outpatient treatment (Acute) CRF (chronic renal failure) (Acute) Edema of both lower extremities (Acute) Fluid overload (Acute) Edema of abdominal wall (Acute) Ulcer of both feet Volume overload Preoperative cardiovascular examination Lymphadenopathy of left cervical region Urticaria Chronic ulcer of left foot with fat layer exposed Diabetic foot ulcer Diabetes mellitus type 2 with neurological manifestations Candidiasis of skin Solitary kidney, congenital Bilateral hip pain Low back pain Weakness (Acute) History of sepsis Lower extremity edema (Acute) CHF (congestive heart failure) (Acute) Abdominal pannus Fatty liver Dependent lymphedema Stage 3b chronic kidney disease Anemia reason for procedure. iron infusions recently. 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 Other ovarian cyst, left side Vitamin D deficiency Peripheral neuropathy Lumbar spinal stenosis 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- DISCOVERED WITH INCIDENTAL IMAGING Gout CKD (chronic kidney disease) stage 3, GFR 30-59 ml/min monitoring Chronic back pain Acid reflux Medical History Hx-TIA (transient ischemic attack) 2017 > ASA for prevention > no residual effects Hx of sepsis 09/2021 r/t left knee infection Hx MRSA infection 09/2021 s/p left knee infection > resolved > continues with doxycycline daily for prevention Hypertension Lumbar spinal stenosis Arthritis Allergic rhinitis Gout Other ovarian cyst, left side present, just monitoring Acid reflux Severe obstructive sleep apnea cpap Stage 3 chronic kidney disease follows with Dr. Wood Fatty liver CHF (congestive heart failure) follows with Ashlyn Gaby Solitary kidney, congenital Diabetes mellitus, type 2 Ulcer of foot one ulcer present to bottom of bilat feet > follows with wound clinic at [place] Chronic ulcer of right foot with fat layer exposed sees wound clinic > bilat feet at present History of COVID-19 09/2021 Septic arthritis resolved Iron deficiency anemia Venous stasis of both lower extremities MDD (major depressive disorder), recurrent episode, moderate Ambulatory dysfunction uses walker Depression with anxiety Degenerative joint disease, shoulder, right Lymphedema left leg and abdomen / chronic Asthma well controlled, rare res inh use Hyperlipidemia no meds Surgical History History of revision of total replacement of left knee joint History of cardiac cath History of colonoscopy History of esophagogastroduodenoscopy (EGD) History of bilateral knee replacement (10/16/22) H/O knee surgery (12/2021) S/P tonsillectomy and adenoidectomy Status post total shoulder arthroplasty (10/17/18) History of carpal tunnel release H/O ventral hernia repair History of appendectomy History of cholecystectomy Family History Mother Diabetes Coronary heart disease Myocardial infarction S/P CABG x 3 Hypertension Gallbladder disease Sister Hodgkins lymphoma Brother Kidney disease Grandmother Breast cancer Aunt Ovarian cancer Father Peripheral vascular disease Daughter Diabetes Other Cancer No family history of adverse response to anesthesia Denies family history of Prostate cancer Colorectal cancer Social History Smoking Status: Former smoker Tobacco Type: Cigarettes Age Started Using Tobacco: 22; Age Quit Using Tobacco: 24; Second Hand Exposure: No; Do You Dip or Chew Tobacco: No; Hx Alcohol Use: No Hx Substance Use: No Preferred Language: Syriac 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 Ability: Effective Visual Impairment: Limited Hearing Ability: Normal 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 Required: No Beliefs That Will Affect Care: None marital status: marital status details: ; lives with parents & 1 daughter Current Living Situation: Parent and Family Current Living Situation Comment: daughter and mom current occupational status: disabled other: worked in [employer] in [employer]; 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 Feels Safe at Home: Yes Childhood Exposure to Second-Hand Smoke: No Diet: regular Diet Comment: regular caffeine: No Dental Care, Regularly: No Physical Activity Frequency: Does not Exercise Seatbelt Use: always Sunscreen Use: Yes Assistive Devices: CPAP and Walker Physical Exam Physical Exam: Physical Exam: General: In no acute distress, stated age, morbidly obese, non-toxic appearing HEENT: Normocephalic, atraumatic, no scleral icterus, pupils around round, symmetrical, and reactive to light, moist mucus membranes, trachea midline, no thyromegaly Chest/Pulm: No respiratory distress, symmetrical chest expansion, clear breath sounds throughout Cardiac: RRR, no murmurs noted Abdomen: Extremely large abdomen/pannus, pannus is erythematous but appears consistent with stasis than infection, normoactive bowel sounds, soft, mildly tender to palpation in the distal pelvis , otherwise non-tender, no signs of infection/skin breakdown on inspection of the underside of the pannus/groin Musculoskeletal: Symmetrical and without signs of acute trauma, upper and lower extremities with full ROM, no atrophy, spasticity, or flaccidity Extremities: Radial, dorsalis pedis, and posterior tibial pulses are intact and symmetrical, 3+ edema noted in the BL LE's Skin: Patient with chronic plantar ulcers on the lateral aspect of the feet which do not appear infected at this time Neuro: Alert and oriented to person, place, month, year, and president, no focal defects, no tremors noted Psych: No acute distress, calm and cooperative during the exam Results & Data Results & Data Vital Signs (Past 12 Hours) Vital Signs Temp Pulse Pulse Resp BP BP Pulse Ox 10/27/23 16:48 85 18 146/78 H 98 10/27/23 14:48 36.9 C 95 H 20 155/76 H 98 O2 Del Method 10/27/23 16:48 Room Air 10/27/23 14:48 Room Air Laboratory Results Abnormal lab results 10/27/23 10/27/23 Range/Units 15:26 Unknown RDW Coeff of Cleo 14.6 H (11.5-14.5) % Neut # (Auto) 6.64 H (1.40-6.50) K/uL Eos # (Auto) 0.58 H (0.00-0.50) K/uL Carbon Dioxide 34 H (21-32) mmol/L BUN 24 H (6-23) mg/dl Creatinine 1.58 H (0.6-1.2) mg/dl Globulin 4.3 H (2.5-4.0) gm/dl Urine Glucose (UA) 2+ H (Negative) Diagnostic Findings Chest X-Ray 10/27/23 14:53 XR chest 1V not portable CLINICAL HISTORY: SOB TECHNIQUE: Single frontal radiograph of the chest was obtained. Comparison: Comparison is made to chest radiograph 08/23/2023 FINDINGS: Right shoulder arthroplasty is seen. The cardiomediastinal silhouette is normal. The lungs are clear. No evidence of pleural effusion or pneumothorax. IMPRESSION: No acute abnormalities and in particular no radiographic evidence of pneumonia. ACT 112: Negative or not required by law. Electronically signed by: Christian Duran M.D. 10/27/2023 4:15 PM ECG Additional Comments: Normal sinus rhythm Low voltage QRS possible Inferior infarct (cited on or before 23-JUL-2017) Poor R wave progression, consider anterior SD vs. lead placement vs. LVH Abnormal ECG Code Status & VTE Plan Code Status full code VTE Prophylaxis Plan VTE Prophylaxis will be ordered: Yes Supervising Physician Co-Signing Physician Notes I personally saw and examined the patient. I verified all mae points and agree with Crow Andrew PA-C with the following exceptions and/or additions: 63 year old female presents to the ER with weight gain and increased abdominal s welling. O/E HS RRR, no murmurs, Chest CTAB, Large abdominal pannus with pitting edema and pedal edema A/P Acute on chronic HFpEF - Bumex 3mg IV BID, spironolactone 50mg PO BID, I&Os, daily weights PG Care Time/CCT Total # of Minutes Spent Total Time Spent with Patient: Total time spent is greater than 50% in coordination of care (as documented) at patient's floor/unit and/or counseling patient: Coding [place] [address] INT INP/OBS CARE 3/75MIN Patient Type Established Medical Decision Making High Complexity Diagnoses Acute on chronic heart failure with preserved ejection fraction I50.33 Volume overload E87.70 Diabetes mellitus type 2 with neurological manifestations E11.49 Stage 3b chronic kidney disease N18.32 Primary hypertension I10 Hypertension type: unspecified History of CVA (cerebrovascular accident) Z86.73 Hx MRSA infection Z86.14 Ulcer of both feet L97.519; L97.529 (5) Hypertension Hypertension type: unspecified Qualified Code(s): I10 - Essential (primary) hypertension
[2023-10-27 17:26] LABS: Magnesium 1.9 mg/dl (1.7-2.4)
[2023-10-27 17:34] LABS: Appearance Urine Clear (Clear); Bilirubin Urine Negative (Negative); Blood Urine Negative (Negative); Color Urine Yellow; Glucose Urine UA 2+ (Negative); Ketones Urine Negative (Negative); Leukocyte Esterase Urine Negative (Negative); Nitrite Urine Negative (Negative); Protein Urine Negative (Negative); Urobilinogen Urine Negative (Negative); pH Urine 6.5 (4.5-7.5)
--- NOTE | 2023-10-27 17:49 | Electrocardiogram Report ---
Test Reason : Blood Pressure : / mmHG Vent. Rate : 084 BPM Atrial Rate : 084 BPM P-R Int : 182 ms QRS Dur : 080 ms QT Int : 336 ms P-R-T Axes : 063 -04 040 degrees QTc Int : 397 ms Normal sinus rhythm Low voltage QRS possible Inferior infarct (cited on or before 23-JUL-2017) Poor R wave progression, consider anterior AR vs. lead placement vs. LVH Abnormal ECG Confirmed by Norris Bower ([id number]) on 10/27/2023 5:48:40 PM Referred By: Confirmed By:Prashanth Bower
[2023-10-27] MEDS ORDERED: GLUCOSE 40% GEL 15 GM TUBE PO PRN (18:06)
[2023-10-27] MEDS ORDERED: GLUCAGON FOR INJ 1 MG VIAL SQ PRN (18:06)
[2023-10-27] MEDS ORDERED: DEXTROSE 50% 50 ML SYRINGE IV PRN (18:06)
[2023-10-27] MEDS ORDERED: CARBOHYDRATES FOR HYPOGLYCEMIA PO PRN (18:06)
[2023-10-27] MEDS ORDERED: GLUCOSE 10 TAB/TUBE PO PRN (18:06)
[2023-10-27] MEDS: ACETAMINOPHEN 500 MG TAB PO STA (18:22)
[2023-10-27] MEDS: BUMETANIDE 3 MG in SYRINGE 0 ML IV ONE ×2 (18:31→20:50)
[2023-10-27] MEDS: HEPARIN SOD 5,000 UNIT/0.5 ML VIAL SQ SCH (22:11)
[2023-10-27] MEDS ORDERED: ALBUTEROL 0.083% NEBU SOLN 3 ML VIAL INH PRN (22:11)
[2023-10-27] MEDS: INSULIN ASPART PER UNIT CHARGE SC SCH (22:17)
[2023-10-27] MEDS: DOXYCYCLINE HYCLATE 100 MG CAP PO SCH (23:26)
[2023-10-27] MEDS: GABAPENTIN 400 MG CAP PO SCH (23:26)
[2023-10-27] MEDS: allopurinoL 100 MG TAB PO STA (23:26)
[2023-10-27] MEDS: DULoxetine HCL 60 MG CAP PO STA (23:26)
[2023-10-27] MEDS: SPIRONOLACTONE 25 MG TAB PO STA (23:27)
[2023-10-27] MEDS: FAMOTIDINE 20 MG TAB PO STA (23:27)
[2023-10-27] MEDS: PANTOprazole 40 MG TAB PO STA (23:27)
[2023-10-28] MEDS: ACETAMINOPHEN 325 MG TAB PO PRN (01:35)
[2023-10-28 08:25] LABS: Basophils # (auto) 0.04 K/uL (0.00-0.20); Basophils % (auto) 0.6 %; Eosinophils # (auto) 0.44 K/uL (0.00-0.50); Eosinophils % (auto) 6.5 %; Hematocrit (blood only) 39.1 % (37.0-47.0); Hemoglobin 12.7 g/dl (12.0-16.0); Immature Granulocytes # (auto) 0.01 K/uL (0.01-0.20); Immature Granulocytes % (auto) 0.1 %; Lymphocytes # (auto) 1.83 K/uL (1.20-3.40); Lymphocytes % (auto) 27.1 %; Mean Corpuscular Hemoglobin 27.3 pg (25.0-34.0); Mean Corpuscular Hgb Conc 32.5 g/dL (32.0-36.0); Mean Corpuscular Volume 84.1 fL (80.0-100.0); Mean Platelet Volume 9.9 fL (9.4-12.4); Monocytes % (auto) 5.9 %; Neutrophils # (auto) 4.04 K/uL (1.40-6.50); Neutrophils % (auto) 59.8 %; Platelet Count 235 K/uL (130-400); RDW Coefficient of Variation 14.5 % (11.5-14.5); RDW Standard Deviation 44.5 fL (36.4-46.3); Red Blood Count 4.65 M/uL (4.20-5.40); White Blood Count 6.76 K/ul (4.8-10.8)
[2023-10-28 08:34] LABS: Albumin Globulin Ratio 0.9 (0.9-2); Albumin Level 3.2 gm/dl (3.4-5.0); BUN Creatinine Ratio 14.2 (10-20); Bilirubin,Total 0.7 mg/dl (0.2-1.0); Calcium 8.5 mg/dl (8.6-10.3); Creatinine Clr Calc Pharmacy 67.4 ml/min; Est GFR (African American) 41.5 ml/min; Est GFR (Non-African American) 35.8 ml/min; Globulin 3.6 gm/dl (2.5-4.0); Magnesium 1.9 mg/dl (1.7-2.4); Potassium 3.6 mmol/L (3.5-5.1); Total Protein 6.8 gm/dl (6.0-8.3)
[2023-10-28 08:42] LABS: Prothrombin Time 11.2 Seconds (9.0-12.0)
[2023-10-28] MEDS: BUMETANIDE 3 MG in SYRINGE 0 ML IV SCH (08:48)
[2023-10-28] MEDS: FLUTICASONE/VILANTEROL 200/25MCG 14 PUFFS/INHALER INH SCH (08:49)
[2023-10-28] MEDS: DULoxetine HCL 60 MG CAP PO SCH (08:49)
[2023-10-28] MEDS: POTASSIUM CHLORIDE CRTAB 20 MEQ TABCR PO SCH ×2 (08:49→18:06)
[2023-10-28] MEDS: ASPIRIN 81 MG ECTAB PO SCH (08:50)
[2023-10-28] MEDS: PANTOprazole 40 MG TAB PO SCH ×2 (08:50→20:45)
[2023-10-28] MEDS: buPROPion XL 300 MG TABCR PO SCH (08:50)
[2023-10-28] MEDS: SPIRONOLACTONE 25 MG TAB PO SCH (08:50)
[2023-10-28] MEDS: allopurinoL 100 MG TAB PO SCH (08:51)
[2023-10-28] MEDS: LOSARTAN POTASSIUM 25 MG TAB PO SCH (08:51)
--- NOTE | 2023-10-28 11:30 | Hospitalist Progress Note ---
Date of Service October 28, 2023 Assessment & Plan (1) Acute on chronic heart failure with preserved ejection fraction: Plan: Admit to [facility] telemetry on pulse oximetry Currently stable and nontoxic-appearing Presented to the ED today due to ongoing swelling and weight gain despite increased doses of home Bumex from 2 mg p.o. twice daily to 3 mg p.o. twice daily Similar to her last admission in August of this year, it appears that dietary indiscretion is the primary factor Continue to stress importance of limiting sodium/fluid intake, patient should not be adding sodium to her food and should limit the amount of soda and total amount of water she drinks daily Bales catheter has been placed and patient was given 3 mg of IV Bumex prior to admission Will plan to continue with 3 mg of IV Bumex twice daily for now, patient was likely over diuresed during last admission when she was initially on 4 mg IV twice daily Monitor intake output every shift, daily renal function electrolytes Monitor daily weight SQ heparin for DVT prophylaxis heart healthy diet with 2 g sodium and 1500 ml fluid restriction AM CBC, CMP, mag, PT/INR (2) Volume overload: Plan: Patient's weight is 175 kg today, up from 165 kg as of 10/21/2023 Heart failure team was consulted during last admission and estimated patient's dry weight to be near [id number] LBS Rest of care per acute on chronic heart failure plan (3) Diabetes mellitus type 2 with neurological manifestations: Plan: Monitor BSG ACHS, goal is [id number] Last hemoglobin A1c 06/25/2023 was 5.9 Will plan to hold Jardiance for now Start conservative management as her glucose on arrival was in the 90s, correction factor 50 with carb ratio of 15 ACHS This regimen is needed (4) Stage 3b chronic kidney disease: Plan: Renal function is currently stable, monitor daily renal function electrolytes with IV diuresis BMP daily (5) Hypertension: Plan: Stable Continue losartan, will hold spironolactone for now with IV diuresis (6) History of CVA (cerebrovascular accident): Plan: -Continue aspirin and statin (7) Hx MRSA infection: Plan: Continue prophylactic doxycycline (8) Ulcer of both feet: Plan: Patient is followed in the wound care clinic for chronic ulcers on the plantar aspect of the bilateral feet appear clean and noninfected at this time Patient was last seen in the wound care clinic last week Will place a wound care nurse consult to follow the patient while admitted Plan Patient was discussed with Avain at the time of the admission Admission and Anticipated Discharge Date Admission Date: October 27, 2023 Subjective reports feet pain, back pain Review of Systems Review of Systems: All systems reviewed & are unremarkable except as noted in Subjective Physical Exam Physical Exam: head atraumatic neck supple chest CTA b/l heart S1S2 , no murmur abdomen obese, nt, nd , bs extremities no edema, pulses decreased Results & Data Results & Data Vital Signs (Past 12 Hours) Vital Signs Temp Pulse Pulse Resp BP Pulse Ox O2 Del Method 10/28/23 11:25 36.7 C 76 20 119/71 93 Room Air 10/28/23 08:04 36.5 C 63 18 133/76 94 Room Air 10/28/23 07:12 83 10/28/23 01:15 81 10/28/23 00:56 Room Air 10/28/23 00:54 36.4 C L 79 18 124/77 97 Room Air PG Care Time/CCT Total # of Minutes Spent Total Time Spent with Patient: Total time spent is greater than 50% in coordination of care (as documented) at patient's floor/unit and/or counseling patient: Coding Level of Care Code 63379 SUB INP/OBS CARE 3/50MIN Diagnoses Acute on chronic heart failure with preserved ejection fraction I50.33 Volume overload E87.70 Diabetes mellitus type 2 with neurological manifestations E11.49 Stage 3b chronic kidney disease N18.32 Primary hypertension I10 Hypertension type: unspecified History of CVA (cerebrovascular accident) Z86.73 Hx MRSA infection Z86.14 Ulcer of both feet L97.519; L97.529 (5) Hypertension Hypertension type: unspecified Qualified Code(s): I10 - Essential (primary) hypertension
--- NOTE | 2023-10-28 16:32 | Cardiology Consultation ---
Date of Consultation October 28, 2023 Assessment & Plan (1) Acute on chronic heart failure with preserved ejection fraction: Plan 1. Acute on chronic heart failure with preserved ejection fraction: Unclear precipitant. Possibly some dietary indiscretion. Diuretics were increased recently without significant effect. However, she seems to have had a robust diuresis with intravenous bumetanide. Electrolytes and renal function are stable. He would seem reasonable to continue the current regimen until we see some element hypovolemia represented either by vital signs or lab results. At that point we can consider switching her back to her usual outpatient diuretic regimen. Already on Jardiance and spironolactone for HFpEF. History of Present Illness Reason for Consultation: Decompensated heart failure with preserved ejection fraction Requesting Physician: Lesley Attending Physician: Tanya Sutton MD History of Present Illness The patient is a 63-year-old woman with a long history of heart failure with preserved ejection fraction. She monitors her weight at home and typically experiences some increased abdominal girth with volume overload. She has been seen on an outpatient basis in diuretics adjusted in order to prevent recurrent edema. However, she states that over the past 2 weeks she has noticed some worsening edema in her abdomen and presented to the emergency room for evaluation. She thinks she has gained between 10 and 20 lb over that time frame. Curiously, she did not report any associated symptoms. She has not had significant breathing difficulty or orthopnea. She does have a fleeting sense of palpitation which is not new. No associated chest pain. Some dizziness which she describes more as a woozy feeling at times, but no presyncope or syncope. She does have some chronic lower extremity swelling in the left leg but none in the right. She has not noticed any change recently. She is minimally ambulatory due to a remote back injury. However, she is ambulatory with a walker around her residence and uses scooter or electric wheelchair when she is out for more extended durations. She states she is currently feeling better than she did at admission and has noted significant improvement in her ab dominal swelling. Allergies Allergy/AdvReac Type Severity Reaction Status Date / Time Corticosteroids Allergy Intermediate RASH Verified 10/21/23 15:37 (Glucocorticoids) morphine Allergy Intermediate MOUTH Verified 10/21/23 15:37 SWELLS/FACE SWELLS Penicillins Allergy Intermediate RASH/HIVES Verified 10/21/23 15:37 prednisone Allergy Intermediate RED RASH Verified 10/21/23 15:37 adhesive Allergy Mild Skin rash Verified 10/21/23 15:37 localized zolpidem Allergy Unknown UNSURE Verified 10/21/23 15:37 pregabalin AdvReac Intermediate GOOFY Verified 10/21/23 15:37 Home Medications Medication Instructions Recorded Confirmed Type fluticasone 250 mcg-salmeterol 50 1 inh inhalation BID #1 inhaler 06/25/21 10/27/23 Rx mcg/dose blistr powdr for inhalation (Advair Diskus) cholecalciferol (vitamin D3) 50 2,000 unit PO TID #270 caps 07/18/21 10/27/23 Rx mcg (2,000 unit) capsule (Vitamin D3) acetaminophen 500 mg tablet 1,000 mg (2 x 500 mg) PO Q4H PRN 09/16/21 10/27/23 Rx fever or pain #90 tabs calcium carbonate (Tums) 900 mg PO QAM 03/03/22 10/27/23 History cyanocobalamin (vitamin B-12) 1,000 mcg PO QAM 03/03/22 10/27/23 History 1,000 mcg tablet (Vitamin B-12) bupropion HCl 300 mg 24 hr tablet, 300 mg PO QAM #90 tabs 02/08/23 10/27/23 Rx extended release famotidine 20 mg tablet 20 mg PO HS #90 tabs 03/23/23 10/27/23 Rx pantoprazole 40 mg tablet,delayed 40 mg PO BID #180 tabs 05/26/23 10/27/23 Rx release albuterol sulfate 2.5 mg/3 mL 2.5 mg (3 mL) inhalation Q6H PRN 06/25/23 10/27/23 Rx (0.083 %) solution for nebulization Shortness Of Breath #90 mL aspirin 81 mg tablet,delayed 81 mg PO QAM 06/25/23 10/27/23 History release duloxetine 60 mg capsule,delayed 60 mg PO BID 06/25/23 10/27/23 History release multivitamin 1 tab PO QAM #90 tabs 06/25/23 10/27/23 Rx spironolactone 50 mg tablet 50 mg PO BID 06/25/23 10/27/23 History diclofenac sodium 1 % topical gel 4 g EXT QID #1 tube 08/30/23 10/27/23 Rx (Voltaren Arthritis Pain) nystatin 100,000 unit/gram topical 1 applic topical TID PRN yeast 08/30/23 10/27/23 Rx powder rash under breasts, abdominal skin folds #30 grams sucralfate 1 gram tablet 1 g PO AC PRN heartburn/stomach 08/30/23 10/27/23 Rx upset #30 tabs gabapentin 400 mg capsule 400 mg PO 4XD 09/09/23 10/27/23 History Klor-Con M20 20 mEq See Rx Instructions PO BID #120 09/14/23 10/27/23 Rx tablet,extended release (potassium tabs chloride) hydroxyzine HCl 25 mg tablet 25 mg PO .qhs Allergy #30 tabs 09/17/23 10/27/23 Rx allopurinol 100 mg tablet 100 mg PO BID #180 tabs 09/21/23 10/27/23 Rx montelukast 10 mg tablet 10 mg PO QPM #90 tabs 09/21/23 10/27/23 Rx albuterol sulfate 90 mcg/actuation 2 puff inhalation Q4H PRN 09/27/23 10/27/23 Rx aerosol inhaler (Ventolin HFA) Shortness Of Breath Or Wheezing #18 grams CPAP Supplies #1 ea 09/28/23 10/27/23 Rx CPAP Machine #1 ea 09/29/23 10/27/23 Rx buspirone 15 mg tablet 20 mg PO TID 10/20/23 10/27/23 History cetirizine 10 mg tablet (Zyrtec) 10 mg PO BID 10/20/23 10/27/23 History doxycycline hyclate 100 mg tablet 100 mg PO BID 10/20/23 10/27/23 History empagliflozin 10 mg tablet 10 mg PO QAM 10/20/23 10/27/23 History (Jardiance) losartan 25 mg tablet 25 mg PO QAM 10/20/23 10/27/23 History bumetanide 1 mg tablet 2 mg (2 x 1 mg) PO BID #360 tabs 10/21/23 10/27/23 Rx Patient History Medical History Hx-TIA (transient ischemic attack) 2017 > ASA for prevention > no residual effects Hx of sepsis 09/2021 r/t left knee infection Hx MRSA infection 09/2021 s/p left knee infection > resolved > continues with doxycycline daily for prevention Hypertension Lumbar spinal stenosis Arthritis Allergic rhinitis Gout Other ovarian cyst, left side present, just monitoring Acid reflux Severe obstructive sleep apnea cpap Stage 3 chronic kidney disease follows with Dr. Wood Fatty liver CHF (congestive heart failure) follows with Ashlyn Gaby Solitary kidney, congenital Diabetes mellitus, type 2 Ulcer of foot one ulcer present to bottom of bilat feet > follows with wound clinic at [facility] Chronic ulcer of right foot with fat layer exposed sees wound clinic > bilat feet at present History of COVID-19 09/2021 Septic arthritis resolved Iron deficiency anemia Venous stasis of both lower extremities MDD (major depressive disorder), recurrent episode, moderate Ambulatory dysfunction uses walker Depression with anxiety Degenerative joint disease, shoulder, right Lymphedema left leg and abdomen / chronic Asthma well controlled, rare res inh use Hyperlipidemia no meds Surgical History History of revision of total replacement of left knee joint History of cardiac cath History of colonoscopy History of esophagogastroduodenoscopy (EGD) History of bilateral knee replacement (10/16/22) H/O knee surgery (12/2021) S/P tonsillectomy and adenoidectomy Status post total shoulder arthroplasty (10/17/18) History of carpal tunnel release H/O ventral hernia repair History of appendectomy History of cholecystectomy Family History Mother Diabetes Coronary heart disease Myocardial infarction S/P CABG x 3 Hypertension Gallbladder disease Sister Hodgkins lymphoma Brother Kidney disease Grandmother Breast cancer Aunt Ovarian cancer Father Peripheral vascular disease Daughter Diabetes Other Cancer No family history of adverse response to anesthesia Denies family history of Prostate cancer Colorectal cancer Social History Smoking Status: Former smoker Tobacco Type: Cigarettes Age Started Using Tobacco: 22; Age Quit Using Tobacco: 24; Second Hand Exposure: No; Do You Dip or Chew Tobacco: No; Hx Alcohol Use: No Hx Substance Use: No Preferred Language: Belarusian 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 Ability: Effective Visual Impairment: Limited Hearing Ability: Normal Auditing Control Clerk Required: No Beliefs That Will Affect Care: None marital status: marital status details: ; lives with parents & 1 daughter Current Living Situation: Parent and Family Current Living Situation Comment: daughter and mom current occupational status: disabled other: worked in [employer] in [employer]; 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 Mood affect appear normal. She answered all questions appropriately. HEENT: Sclerae are anicteric. Pupils are equal and reactive to light and accommodation. Extraocular movements were intact. Neuro: Cranial nerves intact Lungs: Lungs are clear to auscultation bilaterally. There are no rales wheezes or rhonchi. She has normal respiratory effort without use of accessory muscles. There is normal pulmonary excursion. Cardiac: The rhythm was regular. S1 and S2 were normal. Systolic murmur. The PMI was not markedly displaced on palpation. Abdomen: Obese Extremities: Patient has bilateral radial pulses that are equal in intensity. There is no evidence cyanosis or clubbing. Mild lower extremity edema involving the left leg. Protective boot in place. No edema on the right leg. Skin: There are no rashes noted on examination today. Multiple small scabs diffusely. Results & Data Vital Signs (Past 12 Hours) Vital Signs Temp Pulse Pulse Resp BP Pulse Ox O2 Del Method 10/28/23 15:24 75 10/28/23 15:03 36.6 C 100 H 20 108/71 95 Room Air 10/28/23 11:25 36.7 C 76 20 119/71 93 Room Air 10/28/23 08:04 36.5 C 63 18 133/76 94 Room Air 10/28/23 07:12 83 Laboratory Results Abnormal Lab Results 10/27/23 10/27/23 10/27/23 15:26 18:58 22:17 WBC RBC Hgb Hct MCV MCH MCHC RDW Std Deviation RDW Coeff of Cleo Plt Count MPV Immature Gran % (Auto) Neut % (Auto) Lymph % (Auto) [place] % (Auto) Eos % (Auto) Baso % (Auto) Neut # (Auto) Lymph # (Auto) [place] # (Auto) Eos # (Auto) Baso # (Auto) Immature Gran # (Auto) PT INR Sodium Potassium Chloride Carbon Dioxide Anion Gap BUN Creatinine Est Cr Clr Drug Dosing Est GFR ( Amer) Est GFR (Non-Af Amer) BUN/Creatinine Ratio Glucose POC Glucose 83 92 Calcium Magnesium 1.9 Total Bilirubin AST ALT Alkaline Phosphatase Total Protein Albumin Globulin Albumin/Globulin Ratio Urine Color Urine Appearance Urine pH Ur Specific [place] Urine Protein Urine Glucose (UA) Urine Ketones Urine Blood Urine Nitrite Urine Bilirubin Urine Urobilinogen Ur Leukocyte Esterase Nasal Screen MRSA (PCR) 10/27/23 10/28/23 10/28/23 Unknown 07:56 08:21 WBC 6.76 RBC 4.65 Hgb 12.7 Hct 39.1 MCV 84.1 MCH 27.3 MCHC 32.5 RDW Std Deviation 44.5 RDW Coeff of Cleo 14.5 Plt Count 235 MPV 9.9 Immature Gran % (Auto) 0.1 Neut % (Auto) 59.8 Lymph % (Auto) 27.1 [place] % (Auto) 5.9 Eos % (Auto) 6.5 Baso % (Auto) 0.6 Neut # (Auto) 4.04 Lymph # (Auto) 1.83 [place] # (Auto) 0.40 Eos # (Auto) 0.44 Baso # (Auto) 0.04 Immature Gran # (Auto) 0.01 PT 11.2 INR 1.0 Sodium 139 Potassium 3.6 Chloride 99 Carbon Dioxide 35 H Anion Gap 5 BUN 22 Creatinine 1.55 H Est Cr Clr Drug Dosing 67.4 Est GFR ( Amer) 41.5 Est GFR (Non-Af Amer) 35.8 BUN/Creatinine Ratio 14.2 Glucose 89 POC Glucose 106 H Calcium 8.5 L Magnesium 1.9 Total Bilirubin 0.7 AST 16 ALT 12 Alkaline Phosphatase 71 Total Protein 6.8 Albumin 3.2 L Globulin 3.6 Albumin/Globulin Ratio 0.9 Urine Color Yellow Urine Appearance Clear Urine pH 6.5 Ur Specific [place] 1.010 Urine Protein Negative Urine Glucose (UA) 2+ H Urine Ketones Negative Urine Blood Negative Urine Nitrite Negative Urine Bilirubin Negative Urine Urobilinogen Negative Ur Leukocyte Esterase Negative Nasal Screen MRSA (PCR) Negative 10/28/23 10/28/23 12:13 16:42 WBC RBC Hgb Hct MCV MCH MCHC RDW Std Deviation RDW Coeff of Cleo Plt Count MPV Immature Gran % (Auto) Neut % (Auto) Lymph % (Auto) [place] % (Auto) Eos % (Auto) Baso % (Auto) Neut # (Auto) Lymph # (Auto) [place] # (Auto) Eos # (Auto) Baso # (Auto) Immature Gran # (Auto) PT INR Sodium Potassium Chloride Carbon Dioxide Anion Gap BUN Creatinine Est Cr Clr Drug Dosing Est GFR ( Amer) Est GFR (Non-Af Amer) BUN/Creatinine Ratio Glucose POC Glucose 87 98 Calcium Magnesium Total Bilirubin AST ALT Alkaline Phosphatase Total Protein Albumin Globulin Albumin/Globulin Ratio Urine Color Urine Appearance Urine pH Ur Specific [place] Urine Protein Urine Glucose (UA) Urine Ketones Urine Blood Urine Nitrite Urine Bilirubin Urine Urobilinogen Ur Leukocyte Esterase Nasal Screen MRSA (PCR) Diagnostic Findings Echocardiogram 08/24/2023: Ejection fraction 65-70%. Mild LVH. Dilated right ventricle normal RV function. No significant valvular heart disease. Chest x-ray obtained the time admission did not reveal any acute cardiopulmonary abnormalities. No pneumonia. ECG Additional Comments: EKG obtained the time admission revealed normal sinus rhythm poor R-wave progression in the precordial leads. PG Care Time/CCT Total # of Minutes Spent Total Time Spent with Patient: Total time spent is greater than 50% in coordination of care (as documented) at patient's floor/unit and/or counseling patient: Coding Level of Care Code 49161 IN/OBS CONSULT LVL 4,60M Diagnoses Acute on chronic heart failure with preserved ejection fraction I50.33
--- NOTE | 2023-10-28 17:50 | Electrocardiogram Report ---
Test Reason : Blood Pressure : / mmHG Vent. Rate : 071 BPM Atrial Rate : 071 BPM P-R Int : 162 ms QRS Dur : 080 ms QT Int : 472 ms P-R-T Axes : -03 -24 -09 degrees QTc Int : 512 ms Normal sinus rhythm Poor R wave progression, consider anterior MD vs. lead placement vs. LVH Abnormal ECG When compared with ECG of 27-OCT-2023 15:14, QT has lengthened Confirmed by Norris Bower ([id number]) on 10/28/2023 5:50:28 PM Referred By: REFERRED SELF Confirmed By:Prashanth Bower
[2023-10-28] MEDS: BUMETANIDE 2 MG in SYRINGE 0 ML IV SCH (17:58)
[2023-10-28] MEDS: SUCRALFATE 1 GM TAB PO PRN (20:34)
[2023-10-28] MEDS ORDERED: FAMOTIDINE 20 MG TAB PO SCH (21:00)
[2023-10-28] MEDS: NYSTATIN POWDER 15GM BTL EXT SCH (21:19)
[2023-10-29 05:52] LABS: Basophils # (auto) 0.04 K/uL (0.00-0.20); Basophils % (auto) 0.5 %; Eosinophils # (auto) 0.41 K/uL (0.00-0.50); Hematocrit (blood only) 38.7 % (37.0-47.0); Hemoglobin 12.7 g/dl (12.0-16.0); Immature Granulocytes # (auto) 0.02 K/uL (0.01-0.20); Immature Granulocytes % (auto) 0.2 %; Lymphocytes # (auto) 2.27 K/uL (1.20-3.40); Lymphocytes % (auto) 27.6 %; Mean Corpuscular Hemoglobin 27.6 pg (25.0-34.0); Mean Corpuscular Hgb Conc 32.8 g/dL (32.0-36.0); Mean Corpuscular Volume 84.1 fL (80.0-100.0); Mean Platelet Volume 9.9 fL (9.4-12.4); Monocytes # (auto) 0.52 K/uL (0.11-0.59); Monocytes % (auto) 6.3 %; Neutrophils # (auto) 4.96 K/uL (1.40-6.50); Neutrophils % (auto) 60.4 %; Platelet Count 246 K/uL (130-400); RDW Coefficient of Variation 14.6 % (11.5-14.5); RDW Standard Deviation 44.4 fL (36.4-46.3); White Blood Count 8.22 K/ul (4.8-10.8)
[2023-10-29 06:09] LABS: Albumin Globulin Ratio 0.9 (0.9-2); Albumin Level 3.2 gm/dl (3.4-5.0); BUN Creatinine Ratio 12.6 (10-20); Bilirubin,Total 0.6 mg/dl (0.2-1.0); Calcium 8.7 mg/dl (8.6-10.3); Creatinine Clr Calc Pharmacy 62.4 ml/min; Est GFR (African American) 37.9 ml/min; Est GFR (Non-African American) 32.7 ml/min; Globulin 3.4 gm/dl (2.5-4.0); Magnesium 1.9 mg/dl (1.7-2.4); Potassium 3.7 mmol/L (3.5-5.1); Total Protein 6.6 gm/dl (6.0-8.3)
[2023-10-29 06:21] LABS: Prothrombin Time 11.1 Seconds (9.0-12.0)
--- NOTE | 2023-10-29 13:36 | Hospitalist Progress Note ---
Date of Service October 29, 2023 Assessment & Plan (1) Acute on chronic heart failure with preserved ejection fraction: Plan: Admit to [facility] telemetry on pulse oximetry on Bumex 2 mg bid (2) Volume overload: Plan: Patient's weight is 175 kg today, up from 165 kg as of 10/21/2023 Heart failure team was consulted during last admission and estimated patient's dry weight to be near [id number] LBS Rest of care per acute on chronic heart failure plan (3) Diabetes mellitus type 2 with neurological manifestations: Plan: Monitor BSG ACHS, goal is [id number] Last hemoglobin A1c 06/25/2023 was 5.9 Will plan to hold Jardiance for now Start conservative management as her glucose on arrival was in the 90s, correction factor 50 with carb ratio of 15 ACHS This regimen is needed (4) Stage 3b chronic kidney disease: Plan: Renal function is currently stable, monitor daily renal function electrolytes with IV diuresis BMP daily creatinine is trending up stop spironolactone repeat bmp (5) Hypertension: Plan: Stable hold losartan, will hold spironolactone for now with IV diuresis (6) History of CVA (cerebrovascular accident): Plan: -Continue aspirin and statin (7) Hx MRSA infection: Plan: Continue prophylactic doxycycline (8) Ulcer of both feet: Plan: Patient is followed in the wound care clinic for chronic ulcers on the plantar aspect of the bilateral feet appear clean and noninfected at this time Patient was last seen in the wound care clinic last week Will place a wound care nurse consult to follow the patient while admitted (9) Chest pain: Plan: chest wall tenderness, pain with cough obtain CT chest cough meds Plan Patient was discussed with Avani at the time of the admission Admission and Anticipated Discharge Date Admission Date: October 27, 2023 Subjective right chest pain Review of Systems Review of Systems: All systems reviewed & are unremarkable except as noted in Subjective Physical Exam Physical Exam: head atraumatic neck supple chest CTA b/l heart S1S2 , no murmur abdomen obese, nt, nd , bs extremities no edema, pulses decreased Results & Data Results & Data Vital Signs (Past 12 Hours) Vital Signs Temp Pulse Pulse Resp BP Pulse Ox O2 Del Method 10/29/23 11:37 36.7 C 76 18 119/76 90 Room Air 10/29/23 09:25 Room Air 10/29/23 07:46 70 10/29/23 07:42 36.6 C 77 18 113/76 95 Room Air 10/29/23 03:49 36.6 C 70 16 107/71 94 Room Air PG Care Time/CCT Total # of Minutes Spent Total Time Spent with Patient: Total time spent is greater than 50% in coordination of care (as documented) at patient's floor/unit and/or counseling patient: Coding Level of Care Code 57346 SUB INP/OBS CARE 2/35MIN Diagnoses Acute on chronic heart failure with preserved ejection fraction I50.33 Volume overload E87.70 Diabetes mellitus type 2 with neurological manifestations E11.49 Stage 3b chronic kidney disease N18.32 Primary hypertension I10 Hypertension type: unspecified History of CVA (cerebrovascular accident) Z86.73 Hx MRSA infection Z86.14 Ulcer of both feet L97.519; L97.529 Chest pain R07.9 (5) Hypertension Hypertension type: unspecified Qualified Code(s): I10 - Essential (primary) hypertension
--- NOTE | 2023-10-29 14:37 | CT Scan Report ---
CT SCAN OF THE CHEST WITHOUT IV CONTRAST CLINICAL HISTORY: Atypical chest pain. COMPARISON STUDY: Chest x-ray dated 10/27/2023. Chest CT dated 10/11/2017 TECHNIQUE: CT scan of the thorax was performed from the thoracic inlet to the upper abdomen. Images are reviewed in the axial, sagittal, and coronal planes. IV contrast was not administered for this ex amination as per the referring clinician. A dose lowering technique was utilized [facility]. [facility] DOSE: 899.64 mGy.cm FINDINGS: Thyroid: Mildly enlarged and heterogeneous. Thoracic aorta: There is atherosclerotic calcification of the thoracic aorta, which is normal in whit serenity and demonstrates standard 3-vessel arch anatomy. Heart: The heart is top normal in size and without pericardial effusion. The coronary arteries are de nsely calcified. Lungs and pleural spaces: There is no airspace consolidation or pleural effusion. The trachea and norma tral airways are clear. Scarring/atelectasis is noted at the lung bases. Foci of air trapping are see n in the lower lungs. Mediastinum: There is no mediastinal lymphadenopathy. Libby: Not well assessed without IV contrast. Axillae: There is no axillary lymphadenopathy. Upper abdomen: Partially visualized upper abdominal viscera is within normal limits. Skeletal structures: The skeletal structures are osteopenic. No lytic or blastic bony lesions are see n. A right shoulder arthroplasty is in place. Arthritic change is noted at the left sternoclavicular joint and in the left shoulder. IMPRESSION: 1. There is no airspace consolidation or pleural effusion. 2. Advanced coronary artery atherosclerosis. 3. Additional findings as above. ACT 112: Negative or not required by law. Electronically signed by: Will Hussein M.D. 10/29/2023 2:35 PM
--- NOTE | 2023-10-29 19:22 | Cardiology Progress Note ---
Date of Service October 29, 2023 Assessment & Plan (1) Acute on chronic heart failure with preserved ejection fraction: Plan 1. Acute on chronic heart failure with preserved ejection fraction: She has affected a very aggressive diuresis. Feeling better. Renal function and electr olytes are stable. At this point I think we can continue her current diuretic regimen. At some point will see a rise in the BUN and creatinine will know that she has an element of intravascular depletion at that point we can resume her outpatient diuretic regimen. 2. Chest pain: Tender to palpation. I do not believe this is cardiac in nature. Admission and Anticipated Discharge Date Admission Date: October 27, 2023 Subjective This afternoon the patient claimed he feeling well. She did report some right- sided chest discomfort that was worse with palpation. No breathing difficulty. She feels like her edema is improving. Review of Systems Review of Systems: Per HPI Physical Exam Physical Exam: She is alert and oriented x3. Mood affect appear normal. She answered all questions appropriately. HEENT: Sclerae are anicteric. Pupils are equal and reactive to light and accommodation. Extraocular movements were intact. Neuro: Cranial nerves intact Chest: Tender to palpation along the right pectoral area. Lungs: Lungs are clear to auscultation bilaterally. There are no rales wheezes or rhonchi. She has normal respiratory effort without use of accessory muscles. There is normal pulmonary excursion. Cardiac: The rhythm was regular. S1 and S2 were normal. Systolic murmur. The PMI was not markedly displaced on palpation. Abdomen: Obese Extremities: Patient has bilateral radial pulses that are equal in intensity. There is no evidence cyanosis or clubbing. Mild lower extremity edema involving the left leg. Protective boot in place. No edema on the right leg. Skin: There are no rashes noted on examination today. Multiple small scabs diffusely. Results & Data Vital Signs (Past 12 Hours) Vital Signs Temp Pulse Pulse Resp BP BP Pulse Ox 10/29/23 15:58 36.8 C 76 18 104/66 98 10/29/23 15:09 84 10/29/23 11:37 36.7 C 76 18 119/76 90 10/29/23 09:25 10/29/23 07:46 70 10/29/23 07:42 36.6 C 77 18 113/76 95 O2 Del Method 10/29/23 15:58 Room Air 10/29/23 15:09 10/29/23 11:37 Room Air 10/29/23 09:25 Room Air 10/29/23 07:46 10/29/23 07:42 Room Air Laboratory Results Abnormal Lab Results 10/28/23 10/29/23 10/29/23 20:07 05:18 08:04 WBC 8.22 RBC 4.60 Hgb 12.7 Hct 38.7 MCV 84.1 MCH 27.6 MCHC 32.8 RDW Std Deviation 44.4 RDW Coeff of Cleo 14.6 H Plt Count 246 MPV 9.9 Immature Gran % (Auto) 0.2 Neut % (Auto) 60.4 Lymph % (Auto) 27.6 [place] % (Auto) 6.3 Eos % (Auto) 5.0 Baso % (Auto) 0.5 Neut # (Auto) 4.96 Lymph # (Auto) 2.27 [place] # (Auto) 0.52 Eos # (Auto) 0.41 Baso # (Auto) 0.04 Immature Gran # (Auto) 0.02 PT 11.1 INR 1.0 Sodium 139 Potassium 3.7 Chloride 99 Carbon Dioxide 34 H Anion Gap 6 BUN 21 Creatinine 1.67 H Est Cr Clr Drug Dosing 62.4 Est GFR ( Amer) 37.9 Est GFR (Non-Af Amer) 32.7 BUN/Creatinine Ratio 12.6 Glucose 92 POC Glucose 109 H 84 Calcium 8.7 Magnesium 1.9 Total Bilirubin 0.6 AST 15 ALT 11 Alkaline Phosphatase 65 Total Protein 6.6 Albumin 3.2 L Globulin 3.4 Albumin/Globulin Ratio 0.9 10/29/23 10/29/23 12:12 17:06 WBC RBC Hgb Hct MCV MCH MCHC RDW Std Deviation RDW Coeff of Cleo Plt Count MPV Immature Gran % (Auto) Neut % (Auto) Lymph % (Auto) [place] % (Auto) Eos % (Auto) Baso % (Auto) Neut # (Auto) Lymph # (Auto) [place] # (Auto) Eos # (Auto) Baso # (Auto) Immature Gran # (Auto) PT INR Sodium Potassium Chloride Carbon Dioxide Anion Gap BUN Creatinine Est Cr Clr Drug Dosing Est GFR ( Amer) Est GFR (Non-Af Amer) BUN/Creatinine Ratio Glucose POC Glucose 95 96 Calcium Magnesium Total Bilirubin AST ALT Alkaline Phosphatase Total Protein Albumin Globulin Albumin/Globulin Ratio PG Care Time/CCT Total # of Minutes Spent Total Time Spent with Patient: Total time spent is greater than 50% in coordination of care (as documented) at patient's floor/unit and/or counseling patient: Coding Level of Care Code 40675 SUB INP/OBS CARE 2/35MIN Diagnoses Acute on chronic heart failure with preserved ejection fraction I50.33
[2023-10-30 07:46] LABS: Basophils # (auto) 0.03 K/uL (0.00-0.20); Basophils % (auto) 0.4 %; Eosinophils # (auto) 0.53 K/uL (0.00-0.50); Eosinophils % (auto) 6.2 %; Hematocrit (blood only) 39.1 % (37.0-47.0); Hemoglobin 12.8 g/dl (12.0-16.0); Immature Granulocytes # (auto) 0.02 K/uL (0.01-0.20); Immature Granulocytes % (auto) 0.2 %; Lymphocytes # (auto) 2.33 K/uL (1.20-3.40); Lymphocytes % (auto) 27.4 %; Mean Corpuscular Hemoglobin 27.4 pg (25.0-34.0); Mean Corpuscular Hgb Conc 32.7 g/dL (32.0-36.0); Mean Corpuscular Volume 83.7 fL (80.0-100.0); Mean Platelet Volume 9.8 fL (9.4-12.4); Monocytes % (auto) 7.1 %; Neutrophils # (auto) 4.99 K/uL (1.40-6.50); Neutrophils % (auto) 58.7 %; Platelet Count 233 K/uL (130-400); RDW Coefficient of Variation 14.6 % (11.5-14.5); Red Blood Count 4.67 M/uL (4.20-5.40)
[2023-10-30] MEDS: guaiFENesin SUGAR FREE 200 MG/10 ML UDC PO PRN (07:46)
[2023-10-30 08:20] LABS: Albumin Globulin Ratio 0.9 (0.9-2); Albumin Level 3.3 gm/dl (3.4-5.0); BUN Creatinine Ratio 12.7 (10-20); Bilirubin,Total 0.5 mg/dl (0.2-1.0); Calcium 8.9 mg/dl (8.6-10.3); Creatinine Clr Calc Pharmacy 62.1 ml/min; Est GFR (African American) 38.2 ml/min; Est GFR (Non-African American) 32.9 ml/min; Globulin 3.6 gm/dl (2.5-4.0); Potassium 3.6 mmol/L (3.5-5.1); Total Protein 6.9 gm/dl (6.0-8.3)
[2023-10-30] MEDS: ONDANSETRON INJ 2 MG/ML 2 ML VIAL IV PRN (09:22)
--- NOTE | 2023-10-30 11:43 | CT Scan Report ---
CT hip RT wo con HISTORY: 63 years-old Female hip pain acute right hip pain status post trauma COMPARISON: Radiograph 08/24/2023, CT abdomen and pelvis 08/24/2023 TECHNIQUE: Multiple axial CT images of the right hip were obtained without IV contrast. A dose loweri ng technique was used consistent with the principals of ISELA. FINDINGS: Indeterminate partially imaged left adnexal cystic structure redemonstrated, or 0.6 cm. Bales cathete r noted within a decompressed urinary bladder. Nonspecific mildly enlarged right inguinal chain lymph nodes measuring up to 1.4 cm. No drainable flu id collections. Moderate to severe right hip osteoarthritis. No acute fracture, dislocation or avascu lar necrosis. The imaged right hemipelvis appears intact. IMPRESSION: 1. Moderate to severe right hip osteoarthritis. 2. No acute fracture or dislocation. 3. Likely physiologic mildly enlarged right inguinal chain lymph nodes. ACT 112: Negative or not required by law. The above report was generated using voice recognition software. It may contain grammatical, syntax o r spelling errors. Electronically signed by: Reinaldo Todd M.D. 10/30/2023 11:42 AM
--- NOTE | 2023-10-30 13:10 | Hospitalist Progress Note ---
Date of Service October 30, 2023 Assessment & Plan (1) Acute on chronic heart failure with preserved ejection fraction: Plan: Admit to [facility] telemetry on pulse oximetry on Bumex 2 mg bid (2) Volume overload: Plan: Patient's weight is 175 kg today, up from 165 kg as of 10/21/2023 Heart failure team was consulted during last admission and estimated patient's dry weight to be near [id number] LBS Rest of care per acute on chronic heart failure plan (3) Diabetes mellitus type 2 with neurological manifestations: Plan: Monitor BSG ACHS, goal is [id number] Last hemoglobin A1c 06/25/2023 was 5.9 Will plan to hold Jardiance for now Start conservative management as her glucose on arrival was in the 90s, correction factor 50 with carb ratio of 15 ACHS This regimen is needed (4) Stage 3b chronic kidney disease: Plan: Renal function is currently stable, monitor daily renal function electrolytes with IV diuresis BMP daily creatinine is trending up stop spironolactone (5) Hypertension: Plan: Stable hold losartan, will hold spironolactone for now with IV diuresis (6) History of CVA (cerebrovascular accident): Plan: -Continue aspirin and statin (7) Hx MRSA infection: Plan: Continue prophylactic doxycycline (8) Ulcer of both feet: Plan: Patient is followed in the wound care clinic for chronic ulcers on the plantar aspect of the bilateral feet appear clean and noninfected at this time Patient was last seen in the wound care clinic last week Will place a wound care nurse consult to follow the patient while admitted (9) Chest pain: Plan: chest wall tenderness, pain with cough CT chest no acute findings cough meds (10) Hip pain, right: Plan: can not walk obtain CT right hip Plan Patient was discussed with Avani at the time of the admission Admission and Anticipated Discharge Date Admission Date: October 27, 2023 Subjective This afternoon the patient claimed he feeling well. She did report some right- sided chest discomfort that was worse with palpation. No breathing difficulty. She feels like her edema is improving. 10/29 reports right hip pain , vomiting today Review of Systems Review of Systems: All systems reviewed & are unremarkable except as noted in Subjective Physical Exam Physical Exam: head atraumatic neck supple chest CTA b/l heart S1S2 , no murmur abdomen obese, nt, nd , bs extremities no edema, pulses decreased Results & Data Results & Data Vital Signs (Past 12 Hours) Vital Signs Temp Pulse Pulse Resp BP Pulse Ox O2 Del Method 10/30/23 12:28 36.7 C 74 18 114/67 93 Room Air 10/30/23 07:56 36.6 C 73 18 101/57 L 95 Room Air 10/30/23 07:08 72 10/30/23 03:35 37 C 74 18 112/75 93 Room Air PG Care Time/CCT Total # of Minutes Spent Total Time Spent with Patient: Total time spent is greater than 50% in coordination of care (as documented) at patient's floor/unit and/or counseling patient: Coding Level of Care Code 72653 SUB INP/OBS CARE 2/35MIN Diagnoses Acute on chronic heart failure with preserved ejection fraction I50.33 Volume overload E87.70 Diabetes mellitus type 2 with neurological manifestations E11.49 Stage 3b chronic kidney disease N18.32 Primary hypertension I10 Hypertension type: unspecified History of CVA (cerebrovascular accident) Z86.73 Hx MRSA infection Z86.14 Ulcer of both feet L97.519; L97.529 Chest pain R07.9 Hip pain, right M25.551 (5) Hypertension Hypertension type: unspecified Qualified Code(s): I10 - Essential (primary) h ypertension
--- NOTE | 2023-10-30 13:28 | Cardiology Progress Note ---
Date of Service October 30, 2023 Assessment & Plan (1) Acute on chronic heart failure with preserved ejection fraction: Plan 1. Acute on chronic heart failure with preserved ejection fraction: She has affected a very aggressive diuresis. Feeling better. Renal function and electr olytes are stable. At this point I think we can continue her current diuretic regimen. At some point will see a rise in the BUN and creatinine will know that she has an element of intravascular depletion at that point we can resume her outpatient diuretic regimen. 2. Chest pain: Improved Admission and Anticipated Discharge Date Admission Date: October 27, 2023 Subjective This afternoon the patient claimed he feeling well. She denies breathing difficulty. She feels like she is losing weight and her edema is improving. Review of Systems Review of Systems: Per HPI. Chest pain improved Physical Exam Physical Exam: She is alert and oriented x3. Mood affect appear normal. She answered all questions appropriately. HEENT: Sclerae are anicteric. Pupils are equal and reactive to light and accommodation. Extraocular movements were intact. Lungs: Normal respiratory effort. Abdomen: Obese Extremities: Patient has bilateral radial pulses that are equal in intensity. There is no evidence cyanosis or clubbing. Mild lower extremity edema involving the left leg. Protective boot in place. No edema on the right leg. Skin: There are no rashes noted on examination today. Multiple small scabs diffusely. Results & Data Vital Signs (Past 12 Hours) Vital Signs Temp Pulse Pulse Resp BP Pulse Ox O2 Del Method 10/30/23 12:28 36.7 C 74 18 114/67 93 Room Air 10/30/23 07:56 36.6 C 73 18 101/57 L 95 Room Air 10/30/23 07:08 72 10/30/23 03:35 37 C 74 18 112/75 93 Room Air Laboratory Results Abnormal Lab Results 10/29/23 10/29/23 10/30/23 17:06 20:07 06:42 WBC 8.50 RBC 4.67 Hgb 12.8 Hct 39.1 MCV 83.7 MCH 27.4 MCHC 32.7 RDW Std Deviation 44.0 RDW Coeff of Cleo 14.6 H Plt Count 233 MPV 9.8 Immature Gran % (Auto) 0.2 Neut % (Auto) 58.7 Lymph % (Auto) 27.4 Travis % (Auto) 7.1 Eos % (Auto) 6.2 Baso % (Auto) 0.4 Neut # (Auto) 4.99 Lymph # (Auto) 2.33 Travis # (Auto) 0.60 H Eos # (Auto) 0.53 H Baso # (Auto) 0.03 Immature Gran # (Auto) 0.02 PT 11.0 INR 1.0 Sodium 138 Potassium 3.6 Chloride 97 L Carbon Dioxide 36 H Anion Gap 5 BUN 21 Creatinine 1.66 H Est Cr Clr Drug Dosing 62.1 Est GFR ( Amer) 38.2 Est GFR (Non-Af Amer) 32.9 BUN/Creatinine Ratio 12.7 Glucose 87 POC Glucose 96 107 H Calcium 8.9 Magnesium 2.0 Total Bilirubin 0.5 AST 14 ALT 11 Alkaline Phosphatase 65 Total Protein 6.9 Albumin 3.3 L Globulin 3.6 Albumin/Globulin Ratio 0.9 10/30/23 10/30/23 08:14 12:06 WBC RBC Hgb Hct MCV MCH MCHC RDW Std Deviation RDW Coeff of Cleo Plt Count MPV Immature Gran % (Auto) Neut % (Auto) Lymph % (Auto) Travis % (Auto) Eos % (Auto) Baso % (Auto) Neut # (Auto) Lymph # (Auto) Travis # (Auto) Eos # (Auto) Baso # (Auto) Immature Gran # (Auto) PT INR Sodium Potassium Chloride Carbon Dioxide Anion Gap BUN Creatinine Est Cr Clr Drug Dosing Est GFR ( Amer) Est GFR (Non-Af Amer) BUN/Creatinine Ratio Glucose POC Glucose 102 H 98 Calcium Magnesium Total Bilirubin AST ALT Alkaline Phosphatase Total Protein Albumin Globulin Albumin/Globulin Ratio PG Care Time/CCT Total # of Minutes Spent Total Time Spent with Patient: Total time spent is greater than 50% in coordination of care (as documented) at patient's floor/unit and/or counseling patient: Coding Level of Care Code 42579 SUB INP/OBS CARE 2/35MIN Diagnoses Acute on chronic heart failure with preserved ejection fraction I50.33
[2023-10-30] MEDS: POLYETHYLENE (MIRALAX) 17 GM PACK PO SCH (20:46)
[2023-10-31 07:34] LABS: Hemoglobin 12.6 g/dl (12.0-16.0); Mean Corpuscular Hemoglobin 27.5 pg (25.0-34.0); Mean Corpuscular Hgb Conc 32.3 g/dL (32.0-36.0); Mean Corpuscular Volume 85.2 fL (80.0-100.0); Mean Platelet Volume 9.8 fL (9.4-12.4); Platelet Count 220 K/uL (130-400); RDW Coefficient of Variation 14.5 % (11.5-14.5); RDW Standard Deviation 44.5 fL (36.4-46.3); Red Blood Count 4.58 M/uL (4.20-5.40); White Blood Count 8.11 K/ul (4.8-10.8)
[2023-10-31 08:06] LABS: Est GFR (African American) 40.5 ml/min; Est GFR (Non-African American) 34.9 ml/min; Potassium 4.5 mmol/L (3.5-5.1)
[2023-10-31 08:07] LABS: BUN Creatinine Ratio 14.6 (10-20); Calcium 9.5 mg/dl (8.6-10.3); Creatinine Clr Calc Pharmacy 64.4 ml/min
--- NOTE | 2023-10-31 11:02 | Hospitalist Progress Note ---
Date of Service October 31, 2023 Assessment & Plan (1) Acute on chronic heart failure with preserved ejection fraction: Plan: Admit to [facility] telemetry on pulse oximetry on Bumex 2 mg bid reports feeling better (2) Volume overload: Plan: Patient's weight is 175 kg today, up from 165 kg as of 10/21/2023 Heart failure team was consulted during last admission and estimated patient's dry weight to be near [id number] LBS Rest of care per acute on chronic heart failure plan (3) Diabetes mellitus type 2 with neurological manifestations: Plan: Monitor BSG ACHS, goal is [id number] Last hemoglobin A1c 06/25/2023 was 5.9 Will plan to hold Jardiance for now Start conservative management as her glucose on arrival was in the 90s, co rrection factor 50 with carb ratio of 15 ACHS This regimen is needed (4) Stage 3b chronic kidney disease: Plan: Renal function is currently stable, monitor daily renal function electrolytes with IV diuresis BMP daily creatinine is stable stopped spironolactone (5) Hypertension: Plan: Stable hold losartan, will hold spironolactone for now with IV diuresis (6) History of CVA (cerebrovascular accident): Plan: -Continue aspirin and statin (7) Hx MRSA infection: Plan: Continue prophylactic doxycycline (8) Ulcer of both feet: Plan: Patient is followed in the wound care clinic for chronic ulcers on the plantar aspect of the bilateral feet appear clean and noninfected at this time Patient was last seen in the wound care clinic last week Will place a wound care nurse consult to follow the patient while admitted (9) Chest pain: Plan: chest wall tenderness, pain with cough CT chest no acute findings cough meds (10) Hip pain, right: Plan: can not walk CT right hip moderate to severe OA PT recommends rehab (11) Lymphoma: Plan: newly diagnosed follow up with oncology as outpatient Plan Patient was discussed with Avani at the time of the admission Admission and Anticipated Discharge Date Admission Date: October 27, 2023 Subjective reports right hip pain , denies SOB, reports right chest pain Review of Systems Review of Systems: All systems reviewed & are unremarkable except as noted in Subjective Physical Exam Physical Exam: head atraumatic neck supple chest CTA b/l heart S1S2 , no murmur abdomen obese, nt, nd , bs extremities no edema, pulses decreased Results & Data Results & Data Vital Signs (Past 12 Hours) Vital Signs Temp Pulse Pulse Resp BP Pulse Ox O2 Del Method 10/31/23 07:57 36.6 C 64 18 122/73 96 Room Air 10/31/23 07:06 73 10/31/23 03:40 36.6 C 68 16 106/68 95 Room Air, BiPAP 10/30/23 23:14 36.5 C 68 16 107/71 97 Room Air Laboratory Results Abnormal lab results 10/30/23 10/30/23 10/31/23 Range/Units 17:14 20:18 07:11 Carbon Dioxide 36 H (21-32) mmol/L Creatinine 1.58 H (0.6-1.2) mg/dl POC Glucose 112 H 101 H (70-99) mg/dl 10/31/23 Range/Units 08:11 Carbon Dioxide (21-32) mmol/L Creatinine (0.6-1.2) mg/dl POC Glucose 104 H (70-99) mg/dl PG Care Time/CCT Total # of Minutes Spent Total Time Spent with Patient: Total time spent is greater than 50% in coordination of care (as documented) at patient's floor/unit and/or counseling patient: Coding Level of Care Code 96602 SUB INP/OBS CARE 2/35MIN Diagnoses Acute on chronic heart failure with preserved ejection fraction I50.33 Volume overload E87.70 Diabetes mellitus type 2 with neurological manifestations E11.49 Stage 3b chronic kidney disease N18.32 Primary hypertension I10 Hypertension type: unspecified History of CVA (cerebrovascular accident) Z86.73 Hx MRSA infection Z86.14 Ulcer of both feet L97.519; L97.529 Chest pain R07.9 Hip pain, right M25.551 Lymphoma C85.90 (5) Hypertension Hypertension type: unspecified Qualified Code(s): I10 - Essential (primary) hypertension
[2023-11-01] MEDS: traMADol HCL 50 MG TABLET PO STA (05:38)
[2023-11-01] MEDS: MAGNESIUM HYDROXIDE SUSP 30 ML UDC PO ONE (11:07)
[2023-11-01 12:06] LABS: BUN Creatinine Ratio 16.3 (10-20); Calcium 9.8 mg/dl (8.6-10.3); Est GFR (African American) 39.9 ml/min; Est GFR (Non-African American) 34.4 ml/min
--- NOTE | 2023-11-01 16:07 | Hospitalist Progress Note ---
Date of Service November 01, 2023 Assessment & Plan (1) Acute on chronic heart failure with preserved ejection fraction: Plan: Continue on med/tele with ongoing significant volume loss Continue Bumex 2 mg IV BID - current daily net negative 2160 over 24 hours is appropriate rate Given increasing bicarb however will give a dose of acetazolamide 250mg IV today Daily standing weights, strict I&Os Reduce potassium supplementation to allow for re-introduction of spironolactone and possibly reduction of bumex Weight at end of admission 08/29 (which may have been an over shot as Cr significantly bumped on discharge) 157kg. Current weight this admission 176kg -> 168.3kg although this is recorded as the bed scale and should be standing weight. [facility] CHF referral consult (2) Constipation: Plan: Add milk of magnesia to MiraLAX - if not effective will discuss enema tomorrow (3) Diabetes mellitus type 2 with neurological manifestations: Plan: Hemoglobin A1c 5.9 in June, repeat with a.m. labs Not requiring insulin for multiple doses and glucose well controlled - stop insulin and BSG checks Mainly on Jardiance for heart failure rather than diabetes - will restart on this (4) Stage 3b chronic kidney disease: Plan: Stable - continue to monitor as weight gets closer to her dry weight (5) Hypertension: Plan: Stable with current diuresis (6) History of CVA (cerebrovascular accident): Plan: -Continue aspirin and statin (7) Hx MRSA infection: Plan: Continue prophylactic doxycycline (8) Ulcer of both feet: Plan: - Continue wound care per wound care nurse (9) Hip pain, right: Plan: can not walk CT right hip moderate to severe OA PT recommends rehab, OT ordered (10) Lymphoma: Plan: newly diagnosed follow up with oncology as outpatient Plan VTE Prophylaxis - heparin 5000 units q8h Diet - heart healthy, low Na, T2DM Disposition - continued admission on med/tele Admission and Anticipated Discharge Date Admission Date: October 27, 2023 Subjective Patient last seen by myself on admission. She reports feeling significant improvement since admission with weight reduction and abdominal girth size. Bales catheter remains in place which she still feels like she needs given poor mobilization. PT recommending rehabilitation. She reports no BM since Wednesday - reports milk of magnesia usually works. Review of Systems Review of Systems: All systems reviewed & are unremarkable except as noted in HPI & below Physical Exam Constitutional: well developed; + not well nourished and no acute distress Respiratory: normal respiratory effort, lungs clear to auscultation Cardiovascular: Rate/Rhythm: regular rate and regular rhythm Heart Sounds: no murmur Extremities: + pedal edema (trace, wrinkled skin) Gastrointestinal (Abdomen): normal bowel sounds, soft, nontender, no hepatosplenomegaly Inspection/Auscultation: + abdomen abnormal to inspection (large abdominal pannus much less edematous than admission) Results & Data Results & Data Vital Signs (Past 12 Hours) Vital Signs Temp Pulse Pulse Resp BP Pulse Ox O2 Del Method 11/01/23 15:45 64 11/01/23 14:34 36.4 C L 68 18 123/75 93 Room Air 11/01/23 12:03 36.4 C L 63 18 122/76 96 Room Air 11/01/23 07:27 36.7 C 64 18 120/76 94 Room Air 11/01/23 06:11 62 Laboratory Results Abnormal lab results 11/01/23 11/01/23 11/01/23 Range/Units 08:00 11:27 12:16 Chloride 95 L (98-107) mmol/L Carbon Dioxide 34 H (21-32) mmol/L BUN 26 H (6-23) mg/dl Creatinine 1.60 H (0.6-1.2) mg/dl POC Glucose 100 H 114 H (70-99) mg/dl PG Care Time/CCT Total # of Minutes Spent Total Time Spent with Patient: Total time spent is greater than 50% in coordination of care (as documented) at patient's floor/unit and/or counseling patient: Coding Level of Care Code 56969 SUB INP/OBS CARE 2/35MIN Diagnoses Acute on chronic heart failure with preserved ejection fraction I50.33 Constipation K59.00 Diabetes mellitus type 2 with neurological manifestations E11.49 Stage 3b chronic kidney disease N18.32 Primary hypertension I10 Hypertension type: unspecified History of CVA (cerebrovascular accident) Z86.73 Hx MRSA infection Z86.14 Ulcer of both feet L97.519; L97.529 Hip pain, right M25.551 Lymphoma C85.90 (5) Hypertension Hypertension type: unspecified Qualified Code(s): I10 - Essential (primary) hypertension
[2023-11-01] MEDS: acetaZOLAMIDE 250 MG in SYRINGE 0 ML IV ONE (16:54)
[2023-11-01] MEDS: MAGNESIUM HYDROXIDE SUSP 30 ML UDC PO PRN (20:44)
[2023-11-02 06:23] LABS: Hematocrit (blood only) 41.1 % (37.0-47.0); Hemoglobin 13.4 g/dl (12.0-16.0); Mean Corpuscular Hemoglobin 27.5 pg (25.0-34.0); Mean Corpuscular Hgb Conc 32.6 g/dL (32.0-36.0); Mean Corpuscular Volume 84.4 fL (80.0-100.0); Platelet Count 243 K/uL (130-400); RDW Coefficient of Variation 14.4 % (11.5-14.5); RDW Standard Deviation 43.8 fL (36.4-46.3); Red Blood Count 4.87 M/uL (4.20-5.40); White Blood Count 7.77 K/ul (4.8-10.8)
[2023-11-02 06:28] LABS: Calcium 9.4 mg/dl (8.6-10.3); Creatinine Clr Calc Pharmacy 57.7 ml/min; Est GFR (African American) 37.9 ml/min; Est GFR (Non-African American) 32.7 ml/min; Potassium 3.5 mmol/L (3.5-5.1)
[2023-11-02 07:07] LABS: Estimated Average Glucose 117 mg/dl; Hemoglobin A1C 5.7 % (4.5-5.6)
[2023-11-02] MEDS: EMPAGLIFLOZIN 10 MG TAB PO SCH (08:45)
[2023-11-02] MEDS: POTASSIUM CHLORIDE CRTAB 20 MEQ TABCR PO SCH (08:45)
[2023-11-02] MEDS ORDERED: BUMETANIDE 1 MG in SYRINGE 0 ML IV SCH (09:00)
[2023-11-02] MEDS: SPIRONOLACTONE 25 MG TAB PO SCH (09:35)
[2023-11-02] MEDS: BUMETANIDE 1 MG TAB PO SCH (09:35)
--- NOTE | 2023-11-02 14:46 | Hospitalist Progress Note ---
Date of Service November 02, 2023 Assessment & Plan (1) Acute on chronic heart failure with preserved ejection fraction: Plan: Continue on med/tele with ongoing significant volume loss Reduce bumetanide to 1mg PO BID (possibly will need 1-2mg BID on discharge and will see if she is still having a negative balance with spironolactone Daily standing weights, strict I&Os Continue to monitor potassium on reduced supplementation and spironolactone Weight at end of admission 08/29 (which may have been an over shot as Cr significantly bumped on discharge) 157kg. 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 labs Not requiring insulin for multiple doses and glucose well controlled - stop insulin and BSG checks Mainly on Jardiance for heart failure rather than diabetes - restarted on this (4) Stage 3b chronic kidney disease: Plan: Stable - continue to monitor as weight gets closer to her dry weight (5) Hypertension: Plan: Stable with current diuresis (6) History of CVA (cerebrovascular accident): Plan: -Continue aspirin and statin (7) Hx MRSA infection: Plan: Continue prophylactic doxycycline (8) Ulcer of both feet: Plan: - Continue wound care per wound care nurse (9) Hip pain, right: Plan: can not walk CT right hip moderate to severe OA PT/OT - planning on rehab on discharge (10) Lymphoma: Plan: newly diagnosed follow up with oncology as outpatient Plan VTE Prophylaxis - heparin 5000 units q8h Diet - heart healthy, low Na, T2DM Disposition - continued admission on med/tele, if stable on current oral regimen can be discharged once rehab bed available Admission and Anticipated Discharge Date Admission Date: October 27, 2023 Subjective Stable from yesterday. She reports much improved since admission. Feels she is the lightest she has been for some time. Review of Systems Review of Systems: All systems reviewed & are unremarkable except as noted in HPI & below Physical Exam Constitutional: well developed; + not well nourished and no acute distress Respiratory: normal respiratory effort, lungs clear to auscultation Cardiovascular: Rate/Rhythm: regular rate and regular rhythm Heart Sounds: no murmur Extremities: + pedal edema (trace, wrinkled skin) Gastrointestinal (Abdomen): normal bowel sounds, soft, nontender, no hepatosplenomegaly Inspection/Auscultation: + abdomen abnormal to inspection (large abdominal pannus much less edematous than admission) Results & Data Results & Data Vital Signs (Past 12 Hours) Vital Signs Temp Pulse Pulse Pulse Resp BP Pulse Ox 11/02/23 11:30 36.4 C L 68 18 119/75 96 11/02/23 07:40 69 11/02/23 07:36 36.6 C 66 99/63 L 94 11/02/23 07:25 11/02/23 03:33 36.4 C L 75 20 136/83 97 O2 Del Method 11/02/23 11:30 Room Air 11/02/23 07:40 11/02/23 07:36 Room Air 11/02/23 07:25 Room Air 11/02/23 03:33 CPAP PG Care Time/CCT Total # of Minutes Spent Total Time Spent with Patient: Total time spent is greater than 50% in coordination of care (as documented) at patient's floor/unit and/or counseling patient: Coding Level of Care Code 20096 SUB INP/OBS CARE 2/35MIN Diagnoses Acute on chronic heart failure with preserved ejection fraction I50.33 Constipation K59.00 Diabetes mellitus type 2 with neurological manifestations E11.49 Stage 3b chronic kidney disease N18.32 Primary hypertension I10 Hypertension type: unspecified History of CVA (cerebrovascular accident) Z86.73 Hx MRSA infection Z86.14 Ulcer of both feet L97.519; L97.529 Hip pain, right M25.551 Lymphoma C85.90 (5) Hypertension Hypertension type: unspecified Qualified Code(s): I10 - Essential (primary) hypertension
[2023-11-03 07:56] LABS: BUN Creatinine Ratio 19.1 (10-20); Calcium 9.4 mg/dl (8.6-10.3); Creatinine Clr Calc Pharmacy 55.7 ml/min; Est GFR (African American) 36.3 ml/min; Est GFR (Non-African American) 31.3 ml/min; Potassium 3.6 mmol/L (3.5-5.1)
[2023-11-03] MEDS: hydrOXYzine HCl 25 MG TAB PO PRN (17:10)
--- NOTE | 2023-11-03 21:23 | Hospitalist Progress Note ---
Date of Service November 03, 2023 Assessment & Plan (1) Acute on chronic heart failure with preserved ejection fraction: Plan: appears compensated current weight is well below any prior listed weight in the record remains on bumex 1mg BID + aldactone 25mg qam BMP is stable remains on empaglifozin 10mg daily f/u with [facility] - Ashlyn TAYLOR - post-d/c cause of decompensation - dietary indiscretion? of note - echo 08/2023 with preserved biventricular function (2) Constipation: Plan: resolved (3) Diabetes mellitus type 2 with neurological manifestations: Plan: Hemoglobin A1c 5.7% this admission Mainly on Jardiance for heart failure rather than diabetes BSGs have been stopped (4) Stage 3b chronic kidney disease: Plan: baseline Cr mid 1's BMP stable today repeat BMP am (5) Hypertension: Plan: stable, controlled (6) History of CVA (cerebrovascular accident): Plan: Continue aspirin and statin for secondary prevention (7) Hx MRSA infection: Plan: left knee Continue chronic, suppressive, prophylactic doxycycline 100mg BID (8) Ulcer of both feet: Plan: Plantar aspect - b/l Continue wound care per wound care nurse (9) Hip pain, right: Plan: CT right hip moderate to severe OA She has exquisite tenderness of the right trochanteric bursa c/w hip bursitis Would need to discuss with Dr Patel from allergy safety of using IV or PO dexamethasone or intra-bursal injection Can't exclude L-spine DJD contributing to pain but much less likely (10) Lymphoma: Plan: newly diagnosed spring 2023 needs excisional lymph node bx per patient, a-port placement, etc prior to starting chemo follow up with oncology as outpatient Plan * VTE Prophylaxis - heparin 5000 units q8h * Morbid obesity - BMI 46.8 * Rash on chest - contact dermatitis - atarax prn itching; ideally steroids would be helpful but would need to speak with Dr Patel from allergy * Right chest dermatomal pain - t-spine DJD? Prior CT of thoracic spine in early 2023 showed -- There is moderate multilevel intervertebral disc space narrowing and spondylotic spurring with moderate to severe facet arthrosis. No acute fracture or subluxation. There is suboptimal dilation of the central canal and neuroforamina by CT technique. There is a moderate-sized left lateral recess disc osteophyte complex at the T6-T7 level resulting in at least moderate left lateral recess and mild to moderate left foraminal narrowing. If we utilize steroids for suspected R hip bursitis this should help this issue as well. CT chest this admission without acute pathology. It was a non-contrast study but the description of the pain is not suggestive of PE. * Dispo - rehab at [facility] (first choice); 2nd choice - SNF at [facility] or [facility] Admission and Anticipated Discharge Date Admission Date: October 27, 2023 Subjective tele stable overnight pt sitting in the chair comfortably denies any dyspnea states that her abdominal swelling is MUCH better has 3 main complaints - 1. itching and redness at prior sites of monitor leads 2. right lateral hip pain - worse at night, can't lay on that side, turning of the leg makes the pain worse 3. pain starting anterior chest at about the nipple line or slightly lower, moving in a dermatomal fashion to the right and wrapping around to the posterior back at the same dermatomal area; hurts with movement, taking deep breaths when asked about her recently diagnosed B-cell lymphoma she reports she was to have port placement recently and chemo was being planned but due to recurrent admissions unable to do such Review of Systems Review of Systems: gen - good appetite cv - no substernal chest pain; edema much improved pulm - no cough, no dyspnea at rest skin - only 1 area of open skin irritation on left (lower abd wall pannus) Physical Exam Physical Exam: gen - morbidly obese, NAD, sitting in chair, pleasant neck - no JVD mouth - MMM, no thrush heart - RRR, s1 s2 lungs - CTA b/l abd - large abdominal wall pannus; NT; ND; soft; no obvious HSM skin - scattered erythematous papules on upper chest, arms, etc; area of skin irritation/skin breakdown left sided abd wall pannus (undersurface); rest of skin looks good; there are multiple patches of erythema in the shape of tele monitor leads on chest wall ext - trace edema b/l, pulses 2+ b/l musculo - very tender over the expected location of the greater trochanter of right hip; +tenderness with internal and external rotation of hip and forced adduction; overall passive ROM is reduced relative to left hip Results & Data Results & Data Vital Signs (Past 12 Hours) Vital Signs Temp Pulse Pulse Resp BP Pulse Ox O2 Del Method 11/03/23 19:48 36.6 C 63 16 115/76 93 Room Air 11/03/23 15:58 72 11/03/23 15:15 36.6 C 65 18 143/78 H 93 Room Air 11/03/23 11:29 36.7 C 77 20 128/87 97 Room Air Laboratory Results Laboratory Results - last 24 hr 11/03/23 05:26 Sodium 138 Potassium 3.6 Chloride 101 Carbon Dioxide 30 Anion Gap 7 BUN 33 H Creatinine 1.73 H Est Cr Clr Drug Dosing 55.7 Est GFR ( Amer) 36.3 Est GFR (Non-Af Amer) 31.3 BUN/Creatinine Ratio 19.1 Glucose 86 Calcium 9.4 PG Care Time/CCT Total # of Minutes Spent Total Time Spent with Patient: Total time spent is greater than 50% in coordination of care (as documented) at patient's floor/unit and/or counseling patient: Coding Level of Care Code 05305 SUB INP/OBS CARE 2/35MIN Diagnoses Acute on chronic heart failure with preserved ejection fraction I50.33 Constipation K59.00 Diabetes mellitus type 2 with neurological manifestations E11.49 Stage 3b chronic kidney disease N18.32 Primary hypertension I10 Hypertension type: unspecified History of CVA (cerebrovascular accident) Z86.73 Hx MRSA infection Z86.14 Ulcer of both feet L97.519; L97.529 Hip pain, right M25.551 Lymphoma C85.90 (5) Hypertension Hypertension type: unspecified Qualified Code(s): I10 - Essential (primary) hypertension
[2023-11-04 06:35] LABS: BUN Creatinine Ratio 19.5 (10-20); Creatinine Clr Calc Pharmacy 56.9 ml/min; Est GFR (African American) 37.3 ml/min; Est GFR (Non-African American) 32.2 ml/min; Potassium 3.7 mmol/L (3.5-5.1)
[2023-11-04] MEDS ORDERED: EPINEPHrine INJ 1 MG/ML AMP IM PRN (19:23)
--- NOTE | 2023-11-04 20:59 | Hospitalist Progress Note ---
Date of Service November 04, 2023 Assessment & Plan (1) Acute on chronic heart failure with preserved ejection fraction: Plan: appears compensated current weight is well below any prior listed weight in the record remains on bumex 1mg BID + aldactone 25mg qam with stable BMPs cont empaglifozin 10mg daily f/u with [facility] clinic - Ashlyn TAYLOR - post-d/c cause of decompensation - dietary indiscretion? of note - echo 08/2023 with preserved biventricular function (2) Constipation: Plan: resolved (3) Diabetes mellitus type 2 with neurological manifestations: Plan: Hemoglobin A1c 5.7% this admission Mainly on Jardiance for heart failure rather than diabetes BSGs have been stopped (4) Stage 3b chronic kidney disease: Plan: baseline Cr mid 1's BMP stable again today repeat BMP am (5) Hypertension: Plan: stable, controlled (6) History of CVA (cerebrovascular accident): Plan: Continue aspirin and statin for secondary prevention (7) Hx MRSA infection: Plan: left knee Continue chronic, suppressive, prophylactic doxycycline 100mg BID (8) Ulcer of both feet: Plan: Plantar aspect - b/l Continue wound care per wound care nurse (9) Hip pain, right: Plan: CT right hip moderate to severe OA She has exquisite tenderness of the right trochanteric bursa c/w hip bursitis I sent [place] Correspondence to Dr Patel from allergy and Dr Patel is ok with use of dexamethasone Even if patient has true prednisone allergy typically dexamethasone is tolerated in fact, I see in her records she has had dexamethasone on at least 2 other occasions w/o incident Can't exclude L-spine DJD contributing to pain but much less likely (10) Lymphoma: Plan: newly diagnosed spring 2023 needs excisional lymph node bx per patient, a-port placement, etc prior to starting chemo follow up with oncology as outpatient Plan * VTE Prophylaxis - heparin 5000 units q8h * Morbid obesity - BMI 46.8 * Rash on chest - contact dermatitis - dexamethasone 4mg po x 1 now * Right chest dermatomal pain - t-spine DJD? Prior CT of thoracic spine in early 2023 showed -- There is moderate multilevel intervertebral disc space narrowing and spondylotic spurring with moderate to severe facet arthrosis. No acute fracture or subluxation. There is suboptimal dilation of the central canal and neuroforamina by CT technique. There is a moderate-sized left lateral recess disc osteophyte complex at the T6-T7 level resulting in at least moderate left lateral recess and mild to moderate left foraminal narrowing. If we utilize steroids for suspected R hip bursitis this should help this issue as well. CT chest this admission without acute pathology. It was a non-contrast study but the description of the pain is not suggestive of PE. * Dispo - rehab I called & spoke with biomedical equipment support specialist (Dr Brennen walton) - unfortunately the denial for [facility] was upheld, but director willing to approve SNF Made patient aware of the [facility] denial Admission and Anticipated Discharge Date Admission Date: October 27, 2023 Subjective patient sitting in chair denies any new complaints right hip pain continues to be problematic continues with dermatomal pain right chest that wraps around to the right back skin continues to be itchy upper chest (multiple lesions) she is willing to try dexamethasone for the above issues tele overnight wnl Review of Systems Review of Systems: gen - no fevers or chills; good appetite cv - no orthopnea pulm - no dyspnea GI - no abd pain Physical Exam Physical Exam: gen - morbidly obese, NAD, sitting in chair, looks well neck - no JVD mouth - MMM, no thrush heart - RRR, s1 s2, no murmur lungs - CTA b/l abd - large abdominal wall pannus; NT; ND; soft; no obvious HSM skin - scattered erythematous papules on upper chest, arms, etc; there are multiple patches of erythema in the shape of tele monitor leads on chest wall - unchanged ext - no edema b/l, pulses 2+ b/l musculo - very tender over the expected location of the greater trochanter of right hip Results & Data Results & Data Vital Signs (Past 12 Hours) Vital Signs Temp Pulse Pulse Resp BP Pulse Ox O2 Del Method 11/04/23 19:37 36.6 C 76 18 152/80 H 97 Room Air 11/04/23 15:22 36.4 C L 63 18 114/82 96 Room Air 11/04/23 15:00 Room Air 11/04/23 12:57 66 11/04/23 11:37 36.3 C L 73 18 156/87 H 97 Room Air Laboratory Results Laboratory Results - last 24 hr 11/04/23 05:52 Sodium 140 Potassium 3.7 Chloride 103 Carbon Dioxide 30 Anion Gap 7 BUN 33 H Creatinine 1.69 H Est Cr Clr Drug Dosing 56.9 Est GFR ( Amer) 37.3 Est GFR (Non-Af Amer) 32.2 BUN/Creatinine Ratio 19.5 Glucose 97 Calcium 9.0 PG Care Time/CCT Total # of Minutes Spent Total Time Spent with Patient: Total time spent is greater than 50% in coordination of care (as documented) at patient's floor/unit and/or counseling patient: Coding Level of Care Code 03627 SUB INP/OBS CARE 2/35MIN Diagnoses Acute on chronic heart failure with preserved ejection fraction I50.33 Constipation K59.00 Diabetes mellitus type 2 with neurological manifestations E11.49 Stage 3b chronic kidney disease N18.32 Primary hypertension I10 Hypertension type: unspecified History of CVA (cerebrovascular accident) Z86.73 Hx MRSA infection Z86.14 Ulcer of both feet L97.519; L97.529 Hip pain, right M25.551 Lymphoma C85.90 (5) Hypertension Hypertension type: unspecified Qualified Code(s): I10 - Essential (primary) hypertension
[2023-11-04] MEDS: dexAMETHasone 4 MG TAB PO ONE (21:16)
[2023-11-05 06:15] LABS: Hematocrit (blood only) 42.6 % (37.0-47.0); Hemoglobin 13.9 g/dl (12.0-16.0); Mean Corpuscular Hemoglobin 27.7 pg (25.0-34.0); Mean Corpuscular Hgb Conc 32.6 g/dL (32.0-36.0); Mean Platelet Volume 10.3 fL (9.4-12.4); Platelet Count 279 K/uL (130-400); RDW Coefficient of Variation 14.9 % (11.5-14.5); RDW Standard Deviation 45.2 fL (36.4-46.3); Red Blood Count 5.01 M/uL (4.20-5.40); White Blood Count 8.77 K/ul (4.8-10.8)
[2023-11-05 06:30] LABS: BUN Creatinine Ratio 20.5 (10-20); Calcium 9.6 mg/dl (8.6-10.3); Creatinine Clr Calc Pharmacy 57.9 ml/min; Est GFR (African American) 38.2 ml/min; Est GFR (Non-African American) 32.9 ml/min; Potassium 4.1 mmol/L (3.5-5.1)
[2023-11-05] MEDS: dexAMETHasone 4 MG TAB PO SCH (11:48)
[2023-11-05 15:51] VITALS: BP 152/76; PULSE 77; RESP 15; TEMP 98.1; O2SAT 93
--- NOTE | 2023-11-05 17:45 | Discharge Summary ---
Date of Service November 05, 2023 Admission HPI Per Admitting Provider Kriss is a 63-year-old female with a past medical history significant for heart failure with preserved ejection fraction, coronary artery disease, previous stroke, CKD stage III, severe sleep apnea, morbid obesity history of septic arthritis in the left knee now on chronic doxycycline prophylaxis, GERD who presented to the [facility] ED on 10/17/2023 due to progressive abdominal swelling despite increased doses of oral diuretics outpatient. The patient is followed in the heart failure clinic and was admitted to [facility] from 08/23/23-08/30/23 of this year for acute exacerbation of her chronic heart failure thought to mainly be due to dietary indiscretion. She required IV diuresis and had approximately 15 kg weight loss between her last admission and discharge. She was recently seen in the heart failure clinic on 10/21/2023 and was told to increase her p.o. Bumex from 2 mg twice daily to 3 mg twice daily did not have improvement in her swelling. She remained stable while in the ER today. Labs including CBC and CMP were unremarkable. Chest x- ray was read as negative for acute findings. Prior to admission the patient had a Bales catheter placed and was ordered 3 mg IV Bumex. Patient was lying in bed in no acute distress at the time of the exam with her daughter and mother bedside, history was obtained from all. Patient confirms the above history despite increasing dose of Bumex 3 mg twice daily she is continue to gain weight and swelling in her abdomen. Has noticed some increased shortness of breath with exertion but is otherwise been in her normal state of health. I asked to if she was sticking to her sodium and fluid restrictions at home, she initially said yes, I then asked her specifically how much sodium and daily fluid intake she was using. She responded with, "well, I only use salt for cooking and I have been drinking 4 16 ounce bottles of water daily". Her family then added that she is still drinking multiple bottles of Pepsi a day as well. She confirms this stating that she typically drinks 2 -3 16 ounce bottles of Pepsi daily as well. I explained to her that Pepsi will also have a good amount of sodium per bottle, she responded with "oh yeah, I have never thought that". She denies recent fever, chills, chest pain, cough, nausea/vomiting, dysuria, hematuria, melena, diarrhea, and recent trauma. She states that her abdomen is always painful when it becomes the swollen. We discussed CODE STATUS, she wishes to be a full code at this time and for her daughter to make medical decisions for her if she cannot make them herself. Please refer to Dr. Varma's attestation for any changes to the treatment plan Discharge Exam gen - morbidly obese, NAD, sitting in chair, looks well neck - no JVD mouth - MMM, no thrush heart - RRR, s1 s2, no murmur lungs - CTA b/l abd - large abdominal wall pannus; NT; ND; soft; no obvious HSM skin - scattered erythematous papules on upper chest, arms, etc; there are multiple patches of erythema in the shape of tele monitor leads on chest wall - unchanged ext - no edema b/l, pulses 2+ b/l musculo - very tender over the expected location of the greater trochanter of right hip Discharge Data Allergies Allergy/AdvReac Type Severity Reaction Status Date / Time Corticosteroids Allergy Intermediate RASH Verified 10/21/23 15:37 (Glucocorticoids) morphine Allergy Intermediate MOUTH Verified 10/21/23 15:37 SWELLS/FACE SWELLS Penicillins Allergy Intermediate RASH/HIVES Verified 10/21/23 15:37 prednisone Allergy Intermediate RED RASH Verified 10/21/23 15:37 adhesive Allergy Mild Skin rash Verified 10/21/23 15:37 localized zolpidem Allergy Unknown UNSURE Verified 10/21/23 15:37 pregabalin AdvReac Intermediate GOOFY Verified 10/21/23 15:37 Consultations 10/28/23 11:31 Consult Cardiology Routine 11/01/23 16:30 [facility] Referral Routine Ordered Studies 10/29/23 13:17 CT chest without contrast [CT chest diagnostic wo con] Urgent 10/30/23 10:37 CT hip RT wo con Stat Hospital Course (1) Acute on chronic heart failure with preserved ejection fraction: appears compensated current weight is well below any prior listed weight in the record remains on bumex 1mg BID + aldactone 25mg qam with stable BMPs cont empaglifozin 10mg daily f/u with [facility]F clinic - Ashlyn TAYLOR - post-d/c cause of decompensation - dietary indiscretion? of note - echo 08/2023 with preserved biventricular function (2) Constipation: resolved (3) Diabetes mellitus type 2 with neurological manifestations: Hemoglobin A1c 5.7% this admission Mainly on Jardiance for heart failure rather than diabetes BSGs have been stopped (4) Stage 3b chronic kidney disease: baseline Cr mid 1's BMP stable again today repeat BMP am (5) Hypertension: stable, controlled (6) History of CVA (cerebrovascular accident): Continue aspirin and statin for secondary prevention (7) Hx MRSA infection: left knee Continue chronic, suppressive, prophylactic doxycycline 100mg BID (8) Ulcer of both feet: Plantar aspect - b/l Continue wound care per wound care nurse (9) Hip pain, right: CT right hip moderate to severe OA She has exquisite tenderness of the right trochanteric bursa c/w hip bursitis I sent [place] Correspondence to Dr Patel from allergy and Dr Patel is ok with use of dexamethasone Even if patient has true prednisone allergy typically dexamethasone is tolerated in fact, I see in her records she has had dexamethasone on at least 2 other occasions w/o incident Can't exclude L-spine DJD contributing to pain but much less likely (10) Lymphoma: newly diagnosed spring 2023 needs excisional lymph node bx per patient, a-port placement, etc prior to starting chemo follow up with oncology as outpatient Plan * VTE Prophylaxis - heparin 5000 units q8h * Morbid obesity - BMI 46.8 * Rash on chest - contact dermatitis - dexamethasone 4mg po x 1 now * Right chest dermatomal pain - t-spine DJD? Prior CT of thoracic spine in early 2023 showed -- There is moderate multilevel intervertebral disc space narrowing and spondylotic spurring with moderate to severe facet arthrosis. No acute fracture or subluxation. There is suboptimal dilation of the central canal and neuroforamina by CT technique. There is a moderate-sized left lateral recess disc osteophyte complex at the T6-T7 level resulting in at least moderate left lateral recess and mild to moderate left foraminal narrowing. If we utilize steroids for suspected R hip bursitis this should help this issue as well. CT chest this admission without acute pathology. It was a non-contrast study but the description of the pain is not suggestive of PE. * Dispo - rehab I called & spoke with adjunct faculty for medical terminology (Dr Brennen walton) - unfortunately the denial for [facility] was upheld, but director willing to approve SNF Made patient aware of the [facility] denial Discharge Plan Discharge Items Reason For Visit: VOLUME OVERLOAD, HFPEF EXACERBATION Discharge Diagnosis: 1. fluid overload from congestive heart failure - improved 2. right hip arthritis 3. suspected right hip bursitis 4. bilateral foot ulcers 5. diabetes Condition on Discharge: Good Activity: Resume your previous activity Non-emergency contact: Primary Care Provider and [facility] Call non-emergency contact if: you have any medication questions, your symptoms worsen, your wound has increased redness, your wound has increased drainage and your wound pain has increased Follow-up/Referrals: Etelvina Cazares DO [Primary Care Provider] - Candelaria Griffin PA-C [Physician Liaison Officer] - 11/11/23 3:30 pm (CHF clinic) Naz Zepeda MD [Physician] - (please contact the [facility] to reschedule your appointment ) Diet: Carb Consistent or DM2 and Heart Healthy Fluids: 1800ml (7 cups) Addtl Attending Provider Instructions: Mrs Tristan, You were treated for fluid overload/water retention due to congestive heart failure. You improved with use of IV diuretics. During your stay you also complained of severe right hip pain. CT scan of the hip showed moderate to severe hip arthritis (see handout). I also believe you have bursitis of your hip (see handout). We initiated dexamethasone steroid for your hip arthritis/bursitis, your rash on your chest/arms, and the mild discomfort on the right chest that radiates to the back. You tolerated the dexamethasone well while here without any side effects or reaction. Recommendations - 1. Dexamethasone steroid - 4mg daily x 5 days, first dose 11/06/23. Know that steroids can cause fluid retention. Take with food. 2. Lower your potassium supplement to 20meq once daily. 3. Lower your spironolactone to 25mg twice daily (you had been on 50mg twice daily). 4. Check your weight every morning. If you gain more than 3 pounds in 1-2 days please contact Ms Griffin's office. Use the same scale each day. 5. I have prescribed an epi-pen in the event you have an anaphylactic reaction to one of your medicines. See handout on its use. This is for emergency purposes only in the event of an anaphylactic reaction. See handout on anaphylaxis. 6. We will contact you next week with follow-up appointment information with your family doctor. 7. Please contact the cancer center to reschedule your visit with them to discuss the lymphoma. Return to [facility] if - * you have fevers over 100 degrees * you have severe, intractable pain of your right hip * you have severe chest pain or back pain * you have any concerns about your skin * you have worsening shortness of breath * any other concerns It was our pleasure to care for you! Pending Studies at Discharge: No Stand-Alone Forms: My [facility] Dedicated Devices, Smoking Cessation Medications and DC Order Prescriptions: New epinephrine 0.3 mg/0.3 mL auto-injector 0.3 mg IM .qdaily PRN (Reason: anaphylaxis) Qty: 2 0RF dexamethasone 4 mg tablet 4 mg PO DAILY 5 Days Qty: 5 0RF Rx Instructions: start 11/06/23; take with food. Continued cholecalciferol (vitamin D3) [Vitamin D3] 50 mcg (2,000 unit) capsule 2,000 unit PO TID Qty: 270 1RF acetaminophen 500 mg tablet 1,000 mg PO Q4H PRN (Reason: fever or pain) Qty: 90 0RF bupropion HCl 300 mg tablet extended release 24 hr 300 mg PO QAM Qty: 90 1RF pantoprazole 40 mg tablet,delayed release (DR/EC) 40 mg PO BID Qty: 180 1RF montelukast 10 mg tablet 10 mg PO QPM Qty: 90 1RF allopurinol 100 mg tablet 100 mg PO BID Qty: 180 1RF albuterol sulfate [Ventolin HFA] 90 mcg/actuation HFA aerosol inhaler 2 puff INHALATION Q4H PRN (Reason: Shortness Of Breath Or Wheezing) Qty: 18 3RF (DME) CPAP Supplies Misc See Rx Instructions .Route Qty: 1 0RF Rx Instructions: As directed (DME) CPAP Machine Misc See Rx Instructions .Route Qty: 1 0RF Rx Instructions: As directed 11cm water pressure fluticasone propion-salmeterol [Advair Diskus] 250-50 mcg/dose blister with device 1 inh inhalation BID Qty: 1 11RF famotidine 20 mg tablet 20 mg PO HS Qty: 90 3RF aspirin 81 mg tablet,delayed release (DR/EC) 81 mg PO QAM duloxetine 60 mg capsule,delayed release(DR/EC) 60 mg PO BID albuterol sulfate 2.5 mg /3 mL (0.083 %) solution for nebulization 2.5 mg inhalation Q6H PRN (Reason: Shortness Of Breath) Qty: 90 1RF Rx Instructions: needed multivitamin Tablet 1 tab PO QAM Qty: 90 1RF gabapentin 400 mg capsule 400 mg PO 4XD hydroxyzine HCl 25 mg tablet 25 mg PO .qhs Qty: 30 11RF cyanocobalamin (vitamin B-12) [Vitamin B-12] 1,000 mcg tablet 1,000 mcg PO QAM Tums 300 mg (750 mg) tablet,chewable 900 mg PO QAM diclofenac sodium [Voltaren Arthritis Pain] 1 % Gel 4 g EXT QID Qty: 1 0RF Rx Instructions: purchase [id number]; may use 4 grams on your lower back, either knee, either hip, back of neck. nystatin 100,000 unit/gram powder 1 applic topical TID PRN (Reason: yeast rash under breasts, abdominal skin folds) Qty: 30 0RF sucralfate 1 gram tablet 1 g PO AC PRN (Reason: heartburn/stomach upset) Qty: 30 0RF bumetanide 1 mg tablet 2 mg PO BID Qty: 360 3RF Rx Instructions: take every morning and every afternoon. Increase to 3 mg twice daily as needed for weight gains. doxycycline hyclate 100 mg Tablet 100 mg PO BID cetirizine [Zyrtec] 10 mg tablet 10 mg PO BID losartan 25 mg tablet 25 mg PO QAM buspirone 15 mg tablet 20 mg PO TID Jardiance 10 mg tablet 10 mg PO QAM Rx Instructions: for congestive heart failure Changed potassium chloride [Klor-Con M20] 20 mEq tablet,ER particles/crystals 20 meq PO DAILY Qty: 120 1RF spironolactone 50 mg tablet 25 mg PO BID Qty: 0 0RF Krames/Other Patient Handouts: Using an Epinephrine Autoinjector, OA Hip, Understanding Trochanteric Bursitis, ED Anaphylaxis Admission Data Admit Date/Time: 10/27/23 17:25 Attending Provider: Candido Bethea Admit Provider: Candido Varma Primary Care Provider: Etelvina Cazares Other Providers: Rafiq Torre; [facility]; Candelaria Griffin; [facility]; [place] Coding Diagnoses Acute on chronic heart failure with preserved ejection fraction I50.33 Constipation K59.00 Diabetes mellitus type 2 with neurological manifestations E11.49 Stage 3b chronic kidney disease N18.32 Primary hypertension I10 Hypertension type: unspecified History of CVA (cerebrovascular accident) Z86.73 Hx MRSA infection Z86.14 Ulcer of both feet L97.519; L97.529 Hip pain, right M25.551 Lymphoma C85.90
[2023-11-05] MEDS ORDERED: EPINEPHrine ADULT AUTO-INJECT 0.3 MG SYR IM PRN (18:10)
== END 2023-11-05 18:50 | disposition home or self-care (01) | DRG 291 ==
LOC: ED 14:47 → EDINP 17:25 → SUATTDRO 17:25 → EDINP 20:19 → 2N 10-28 00:48
DX: E11.42 Type 2 diabetes mellitus with diabetic polyneuropathy; M16.11 Unilateral primary osteoarthritis, right hip; E11.22 Type 2 diabetes mellitus with diabetic chronic kidney disease; Z88.5 Allergy status to narcotic agent; Z86.73 Personal history of transient ischemic attack (TIA), and cerebral infarction without residual deficits; M70.61 Trochanteric bursitis, right hip; Q60.0 Renal agenesis, unilateral; Z88.0 Allergy status to penicillin; K59.00 Constipation, unspecified; N18.32 Chronic kidney disease, stage 3b; C85.90 Non-Hodgkin lymphoma, unspecified, unspecified site; Z87.891 Personal history of nicotine dependence; L97.518 Non-pressure chronic ulcer of other part of right foot with other specified severity; I25.10 Atherosclerotic heart disease of native coronary artery without angina pectoris; E66.01 Morbid (severe) obesity due to excess calories; E11.621 Type 2 diabetes mellitus with foot ulcer; Z68.43 Body mass index [BMI] 50.0-59.9, adult; Z86.14 Personal history of Methicillin resistant Staphylococcus aureus infection; L97.528 Non-pressure chronic ulcer of other part of left foot with other specified severity; I50.33 Acute on chronic diastolic (congestive) heart failure; I13.0 Hypertensive heart and chronic kidney disease with heart failure and stage 1 through stage 4 chronic kidney disease, or unspecified chronic kidney disease

== ENCOUNTER 2023-11-21 17:24 | Inpatient (IN) ==
--- NOTE | 2023-11-21 17:49 | Emergency Department Note ---
Impression & Plan Cellulitis, Acute exacerbation of CHF (congestive heart failure), CKD (chronic kidney disease) stage 3, GFR 30-59 ml/min, HAYES (dyspnea on exertion) ED Provider Note NAME: CELIO ARGUELLES AGE: 63 SEX: F : 1960 ARRIVES VIA: Walk-In INFORMANT: Patient, triage note ED PROVIDER(S): Du Bella MD CHIEF COMPLAINT: Shortness of breath, abdominal swelling MEDICAL DECISION MAKING: Patient presented due to concern for increasing shortness of breath. IV was established and blood work is obtained as the patient does have associated lower abdominal swelling and redness CT abdomen pelvis was ordered. This was ordered without IV contrast given the prior history of CKD. Blood work shows a white count of 11. The patient did receive empiric Rocephin at the time of presentation due to concern for cellulitis. H&H is normal with a normal platelet count. Kidney function with a creatinine 2.2. This is slightly worse compared to her prior. Magnesium slight low at 1.3. Troponin and BNP negative procalcitonin is not elevated. Urinalysis does not show signs of blood or infection. Patient CT of the abdomen pelvis does show skin thickening and fat stranding in the lower pannus. Nonobstructive kidney stones and cortical scarring noted. The patient's chest x-ray does not show any evidence of obvious pneumonia. I did inform the patient of the findings. Patient was ordered Bumex IV 2 mg. I did speak with the inpatient medicine service Dr. Lim and the patient was admitted to the medicine service. Discussion w/ other healthcare providers: None Prior /Outside records reviewed: None Differential diagnosis: Reactive airway disease, pneumonia, pneumothorax, COPD, CHF, ACS, pulmonary embolism, musculoskeletal, GERD as well as other pathologies were considered. Diagnostics, as interpreted by me: ECG: Normal sinus rhythm, rate of 99, normal DC and QRS, prolonged QTc, left axis deviation, Q waves anteriorly and laterally. No significant changes from comparison EKG from October 28, 2023. Cardiac monitoring: An order was placed for continuous cardiac monitoring. The monitor shows a rate of 95 with sinus rhythm. Patient was placed on pulse oximetry Medical decision rules: None Imaging studies: I informally interpreted the patient's chest x-ray does not show obvious pneumonia or pneumothorax with formal report to follow. HPI: Patient presents due to concern for worsening shortness of breath and associated abdominal swelling. The patient states that she has had more distended and fluid-filled abdomen. Patient does complain of lower abdominal pain. She does state that she did lose 100 pounds and that she did have a lot of excess tissue but this has been more prominent in the last week or so. The patient believes she is gained about 20 pounds in a week. Patient was recently started on metolazone yesterday in combination with her Bumex treatments but she has not noticed a difference. The patient does complain of exertional dyspnea. The patient does not sleep laying down. She cannot describe whether or not she has orthopnea or PND. Patient denies any cough or fever. She does follow with Ashlyn Griffin with heart failure clinic. Patient denies any increase in salt or processed foods in the diet states that she is compliant with her medications. Patient denies any leg swelling or calf pain. PAST MEDICAL HISTORY: See Below PAST SURGICAL HISTORY: See Below SOCIAL HISTORY: See Below HOME MEDICATIONS: See Below ALLERGIES: See Below VITALS: See Below PHYSICAL EXAMINATION: GENERAL: NAD, non-toxic. BMI 53. EYE EXAM: Normal conjunctiva. PERRL, no anisocoria and EOM's grossly intact w/o pain. OROPHARYNX: Moist mucus membranes, grossly normal dentition. NECK: Trachea midline, no stridor. LUNGS: Bibasilar crackles. Normal chest wall mechanics. HEART: NSR, no MRG. ABDOMEN: Abdomen soft, lower abdominal pain with pannus extending well below her pelvis, associated soft tissue redness and occasional breaks in the skin, TTP but without crepitus. No masses, no rebound or guarding. BACK: No CVA TTP. SKIN: No rashes and no bruising. UPPER EXTREMITIES: Upper extremities are grossly normal. LOWER EXTREMITIES: Grossly normal, no edema. NEURO EXAM: A&O x3, cranial nerves II-XII grossly intact, normal speech, moves all 4 extremities. Past Med/Surg History Problem List (Updated 11/21/23 @ 21:52 by Du Bella MD) HAYES (dyspnea on exertion) (Acute) CKD (chronic kidney disease) stage 3, GFR 30-59 ml/min (Acute) Acute exacerbation of CHF (congestive heart failure) (Acute) Cellulitis (Acute) Hx MRSA infection 09/2021 s/p left knee infection > resolved > continues with doxycycline daily for prevention Cellulitis of suprapubic region Acute on chronic heart failure VARINDER (acute kidney injury) Osteoarthritis of hip Constipation Lymphoma Hip pain, right Failure of outpatient treatment (Acute) CRF (chronic renal failure) (Acute) Edema of both lower extremities (Acute) Fluid overload (Acute) Edema of abdominal wall (Acute) Ulcer of both feet Volume overload Lymphadenopathy of left cervical region Urticaria Chronic ulcer of left foot with fat layer exposed Diabetic foot ulcer Diabetes mellitus type 2 with neurological manifestations Candidiasis of skin Solitary kidney, congenital Bilateral hip pain Low back pain Weakness (Acute) History of sepsis Lower extremity edema (Acute) CHF (congestive heart failure) (Acute) Abdominal pannus Fatty liver Dependent lymphedema Stage 3b chronic kidney disease Anemia reason for procedure. iron infusions recently. 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 Other ovarian cyst, left side Vitamin D deficiency Peripheral neuropathy Lumbar spinal stenosis 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- DISCOVERED WITH INCIDENTAL IMAGING Gout CKD (chronic kidney disease) stage 3, GFR 30-59 ml/min monitoring Chronic back pain Acid reflux Medical History Hx-TIA (transient ischemic attack) 2017 > ASA for prevention > no residual effects Hx of sepsis 09/2021 r/t left knee infection Hypertension Lumbar spinal stenosis Arthritis Allergic rhinitis Gout Other ovarian cyst, left side present, just monitoring Acid reflux Severe obstructive sleep apnea cpap Stage 3 chronic kidney disease follows with Dr. Wood Fatty liver CHF (congestive heart failure) follows with Ashlyn Griffin Solitary kidney, congenital Diabetes mellitus, type 2 Ulcer of foot one ulcer present to bottom of bilat feet > follows with wound clinic at [facility] Chronic ulcer of right foot with fat layer exposed sees wound clinic > bilat feet at present History of COVID-19 09/2021 Septic arthritis resolved Iron deficiency anemia Venous stasis of both lower extremities MDD (major depressive disorder), recurrent episode, moderate Ambulatory dysfunction uses walker Depression with anxiety Degenerative joint disease, shoulder, right Lymphedema left leg and abdomen / chronic Asthma well controlled, rare res inh use Hyperlipidemia no meds Surgical History History of revision of total replacement of left knee joint History of cardiac cath remote hx over 20 yrs ago, no stents History of colonoscopy History of esophagogastroduodenoscopy (EGD) History of bilateral knee replacement (10/16/22) H/O knee surgery (12/2021) L knee washout w/ polyexchange S/P tonsillectomy and adenoidectomy Status post total shoulder arthroplasty (10/17/18) right History of carpal tunnel release B/L H/O ventral hernia repair History of appendectomy History of cholecystectomy Family History Mother Diabetes Coronary heart disease Myocardial infarction S/P CABG x 3 Hypertension Gallbladder disease Sister Hodgkins lymphoma Brother Kidney disease Grandmother Breast cancer Aunt Ovarian cancer Father , 02/11/20. 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 Required: No Beliefs That Will Affect Care: None marital status: marital status details: ; lives with parents & 1 daughter Current Living Situation: Parent and Family Current Living Situation Comment: daughter and mom current occupational status: disabled other: worked in [place] in [employer]; 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 Feels Safe at Home: Yes Childhood Exposure to Second-Hand Smoke: No Diet: regular Diet Comment: regular caffeine: No Dental Care, Regularly: No Physical Activity Frequency: Does not Exercise Seatbelt Use: always Sunscreen Use: Yes Assistive Devices: Walker Allergies Allergies Allergy/AdvReac Type Severity Reaction Status Date / Time Corticosteroids Allergy Intermediate RASH Verified 11/19/23 10:22 (Glucocorticoids) morphine Allergy Intermediate MOUTH Verified 11/19/23 10:22 SWELLS/FACE SWELLS Penicillins Allergy Intermediate RASH/HIVES Verified 11/19/23 10:22 prednisone Allergy Intermediate RED RASH Verified 11/19/23 10:22 adhesive Allergy Mild Skin rash Verified 11/19/23 10:22 localized zolpidem Allergy Unknown UNSURE Verified 11/19/23 10:22 pregabalin AdvReac Intermediate GOOFY Verified 11/19/23 10:22 Home Meds Home Medications Medication Instructions Recorded Confirmed calcium carbonate (Tums) 900 mg PO QAM 03/03/22 11/21/23 cyanocobalamin (vitamin B-12) 1,000 mcg PO QAM 03/03/22 11/21/23 1,000 mcg tablet (Vitamin B-12) aspirin 81 mg tablet,delayed 81 mg PO QAM 06/25/23 11/21/23 release duloxetine 60 mg capsule,delayed 60 mg PO BID 06/25/23 11/21/23 release gabapentin 400 mg capsule 400 mg PO 4XD 09/09/23 11/21/23 buspirone 15 mg tablet 20 mg PO TID 10/20/23 11/21/23 cetirizine 10 mg tablet (Zyrtec) 10 mg PO BID 10/20/23 11/21/23 doxycycline hyclate 100 mg tablet 100 mg PO BID 10/20/23 11/21/23 empagliflozin 10 mg tablet 10 mg PO QAM 10/20/23 11/21/23 (Jardiance) losartan 25 mg tablet 25 mg PO QAM 10/20/23 11/21/23 Previous Rx's Medication Instructions Recorded fluticasone 250 mcg-salmeterol 50 1 inh inhalation BID #1 inhaler 06/25/21 mcg/dose blistr powdr for inhalation (Advair Diskus) cholecalciferol (vitamin D3) 50 2,000 unit PO TID #270 caps 07/18/21 mcg (2,000 unit) capsule (Vitamin D3) acetaminophen 500 mg tablet 1,000 mg (2 x 500 mg) PO Q4H PRN 09/16/21 fever or pain #90 tabs bupropion HCl 300 mg 24 hr tablet, 300 mg PO QAM #90 tabs 02/08/23 extended release famotidine 20 mg tablet 20 mg PO HS #90 tabs 11/07/23 pantoprazole 40 mg tablet,delayed 40 mg PO BID #180 tabs 05/26/23 release albuterol sulfate 2.5 mg/3 mL 2.5 mg (3 mL) inhalation Q6H PRN 06/25/23 (0.083 %) solution for nebulization Shortness Of Breath #90 mL multivitamin 1 tab PO QAM #90 tabs 06/25/23 diclofenac sodium 1 % topical gel 4 g EXT QID #1 tube 08/30/23 (Voltaren Arthritis Pain) nystatin 100,000 unit/gram topical 1 applic topical TID PRN yeast 08/30/23 powder rash under breasts, abdominal skin folds #30 grams hydroxyzine HCl 25 mg tablet 25 mg PO .qhs Allergy #30 tabs 09/17/23 allopurinol 100 mg tablet 100 mg PO BID #180 tabs 09/21/23 montelukast 10 mg tablet 10 mg PO QPM #90 tabs 09/21/23 albuterol sulfate 90 mcg/actuation 2 puff inhalation Q4H PRN 09/27/23 aerosol inhaler (Ventolin HFA) Shortness Of Breath Or Wheezing #18 grams CPAP Supplies #1 ea 09/28/23 CPAP Machine #1 ea 09/29/23 bumetanide 1 mg tablet 2 mg (2 x 1 mg) PO BID #360 tabs 11/05/23 epinephrine 0.3 mg/0.3 mL 0.3 mg (0.3 mL) IM .qdaily PRN 11/05/23 injection, auto-injector anaphylaxis #2 ea spironolactone 50 mg tablet 25 mg (1/2 x 50 mg) PO BID #0 tabs 11/05/23 sucralfate 1 gram tablet 1 g PO AC PRN heartburn/stomach 11/05/23 upset #30 tabs Klor-Con M20 20 mEq 20 meq PO DAILY #90 tabs 11/10/23 tablet,extended release (potassium chloride) metolazone 5 mg tablet 5 mg PO DAILY PRN Fluid Retention 11/19/23 #14 tabs Results & Data (ED) Vital Signs Vital Signs - 24 hr 11/21/23 17:33 11/21/23 17:46 11/21/23 19:04 Temperature 36.6 C Temperature Source Temporal Artery Scan Pulse Rate 104 H 95 H Pulse Rate [Apical] 93 H Respiratory Rate 19 18 Respiratory Effort / Characteristics Non-Labored Spontaneous Non-Labored Respiratory Depth Normal Normal Respiratory Pattern Regular Blood Pressure 102/61 Blood Pressure [Left Arm] 138/97 Blood Pressure Mean 74 Blood Pressure Mean [Left Arm] 110 Pulse Oximetry 94 96 Oxygen Delivery Method Room Air Room Air Sepsis Recent Fever Within 48 Hours No Sepsis New/Unexplained Change in Mental Status No Sepsis Action Taken by Nursing No Action Required 11/21/23 19:04 Temperature Temperature Source Pulse Rate Pulse Rate [Apical] Respiratory Rate Respiratory Effort / Characteristics Respiratory Depth Respiratory Pattern Blood Pressure Blood Pressure [Left Arm] Blood Pressure Mean Blood Pressure Mean [Left Arm] Pulse Oximetry 96 Oxygen Delivery Method Room Air Sepsis Recent Fever Within 48 Hours Sepsis New/Unexplained Change in Mental Status Sepsis Action Taken by Residential Medications Current Medication List: was personally reviewed by me Laboratory Data Attestation: I reviewed the patient's lab results. 11/21/23 17:50 11/21/23 17:50 Lab Results 11/21/23 11/21/23 Range/Units 17:50 20:00 WBC 11.08 H (4.8-10.8) K/ul RBC 5.15 (4.20-5.40) M/uL Hgb 14.3 (12.0-16.0) g/dl Hct 43.1 (37.0-47.0) % MCV 83.7 (80.0-100.0) fL MCH 27.8 (25.0-34.0) pg MCHC 33.2 (32.0-36.0) g/dL RDW Std Deviation 44.3 (36.4-46.3) fL RDW Coeff of Cleo 14.5 (11.5-14.5) % Plt Count 335 (130-400) K/uL MPV 10.1 (9.4-12.4) fL Immature Gran % (Auto) 0.3 % Neut % (Auto) 71.7 % Lymph % (Auto) 16.5 % [place] % (Auto) 6.3 % Eos % (Auto) 4.7 % Baso % (Auto) 0.5 % Neut # (Auto) 7.95 H (1.40-6.50) K/uL Lymph # (Auto) 1.83 (1.20-3.40) K/uL [place] # (Auto) 0.70 H (0.11-0.59) K/uL Eos # (Auto) 0.52 H (0.00-0.50) K/uL Baso # (Auto) 0.05 (0.00-0.20) K/uL Immature Gran # (Auto) 0.03 (0.01-0.20) K/uL ESR 66 H (0-30) mm/hr PT 11.3 (9.0-12.0) Seconds INR 1.0 (0.9-1.1) APTT 27 (21-31) Seconds PTT Ratio 1.0 Sodium 137 (136-145) mmol/L Potassium 3.5 (3.5-5.1) mmol/L Chloride 97 L (98-107) mmol/L Carbon Dioxide 30 (21-32) mmol/L Anion Gap 10 (3-11) BUN 35 H (6-23) mg/dl Creatinine 2.26 H (0.6-1.2) mg/dl Est Cr Clr Drug Dosing 43.7 ml/min Est GFR ( Amer) 26.3 ml/min Est GFR (Non-Af Amer) 22.7 ml/min BUN/Creatinine Ratio 15.5 (10-20) Glucose 98 (70-99(Fasting)) mg/dl Calcium 9.7 (8.6-10.3) mg/dl Magnesium 1.3 L (1.7-2.4) mg/dl Total Bilirubin 0.5 (0.2-1.0) mg/dl AST 19 (13-39) U/L ALT 22 (7-52) U/L Alkaline Phosphatase 87 (34-104) U/L Troponin I High Sens 4.4 (0-14) pg/ml B-Natriuretic Peptide 13 (0-100) pg/ml Total Protein 7.6 (6.0-8.3) gm/dl Albumin 3.9 (3.4-5.0) gm/dl Globulin 3.7 (2.5-4.0) gm/dl Albumin/Globulin Ratio 1.1 (0.9-2) Procalcitonin 0.04 (0-0.5) ng/ml Urine Color Yellow Urine Appearance Clear (Clear) Urine pH 5.5 (4.5-7.5) Ur Specific [place] 1.010 (1.000-1.030) Urine Protein Negative (Negative) Urine Glucose (UA) Negative (Negative) Urine Ketones Negative (Negative) Urine Blood Negative (Negative) Urine Nitrite Negative (Negative) Urine Bilirubin Negative (Negative) Urine Urobilinogen Negative (Negative) Ur Leukocyte Esterase Negative (Negative) Administered Medications Daptomycin 425 mg/ Syringe 8.5 mls @ 4.25 mls/min IV Q24H [facility]; Protocol Stop: 11/28/23 19:59 Last Admin: 11/21/23 21:05 Dose: 4.25 mls/min Documented By: VIKRAM Discontinued Medications Ceftriaxone Sodium (Rocephin) 2,000 mg in 50 mls @ 100 mls/hr IV NOW STA Stop: 11/21/23 18:28 Last Infusion: 11/21/23 19:11 Dose: Infused Documented By: Admin: 11/21/23 18:37 Dose: 100 mls/hr Documented By: JES Bumetanide 2 mg/ Syringe 8 mls @ 4 mls/min IV ONE ONE Stop: 11/21/23 19:06 Last Admin: 11/21/23 19:48 Dose: Not Given Documented By: VIKRAM Cefepime HCl 2,000 mg/ Syringe 20 mls @ 5 mls/min IV NOW STA; Protocol Stop: 11/21/23 20:01 Last Admin: 11/21/23 21:06 Dose: 5 mls/min Documented By: VIKRAM Potassium Chloride (Potassium Chloride Crtab 20 Meq Tabcr) 20 meq PO NOW STA Stop: 11/21/23 20:22 Last Admin: 11/21/23 21:05 Dose: 20 meq Documented By: VIKRAM Imaging Data Radiologist's Impression: Abdomen/Pelvis CT 11/21/23 17:59 CT abd pelvis wo con CLINICAL HISTORY: lower abdominal pain/swelling TECHNIQUE: Helical axial images of the abdomen and pelvis were obtained. Automated dose lowering techniques and/or adjustment according to patient size were utilized for this exam. This exam was performed without intravenous contrast. CT DOSE: 2862.97 mGy.cm COMPARISON: Comparison is made to CT abdomen pelvis 08/24/2023 FINDINGS: Lower chest: No acute abnormality. Liver: Unremarkable. No focal lesions are seen. Gallbladder and biliary tree: Patient is status post cholecystectomy. No intra- or extrahepatic biliary ductal dilation. Pancreas: Unremarkable, no focal lesions. Spleen: Unremarkable. Adrenals: Unremarkable. Kidneys and ureters: Atrophic appearance of the right kidney is seen with bilateral cortical scarring. Calcifications are seen in the left kidney. Bladder: Unremarkable. Reproductive organs: Left ovarian cyst is seen. Bowel: Unremarkable. Lymph nodes Retroperitoneal: Unremarkable. Pelvic: Subcentimeter lymph nodes are noted. Mesenteric: Unremarkable. Peritoneum: Normal. Vessels: Atherosclerotic calcifications are seen. Abdominal wall: There is prominent skin thickening and fat stranding in the inferior pannus. No abnormal fluid collection is seen. Bones: Degenerative changes in the visualized spine. IMPRESSION: 1. Skin thickening and fat stranding in the lower pannus. Clinical correlation is recommended to exclude cellulitis. No acute abnormality within the abdomen. 2. Nonobstructive nephrolithiasis and cortical scarring. ACT 112: Negative or not required by law. Electronically signed by: Christian Duran M.D. 11/21/2023 6:40 PM Chest X-Ray 11/21/23 17:59 XR chest 1V portable CLINICAL HISTORY: Dyspnea TECHNIQUE: Single frontal radiograph of the chest was obtained. Comparison: Comparison is made to chest radiograph 10/27/2023 FINDINGS: Right reverse arthroplasty is seen. Calcified aortic knob is seen. The lungs are clear. No evidence of pleural effusion or pneumothorax. IMPRESSION: No acute abnormalities and in particular no radiographic evidence of pneumonia. ACT 112: Negative or not required by law. Electronically signed by: Christian Duran M.D. 11/21/2023 6:54 PM Discharge Plan Visit Data Chief Complaint: Abdominal Pain Stated Complaint: ABDOMINAL PAIN, SWELLING ED Provider: Du Bella Discharge Problem: Cellulitis, Acute exacerbation of CHF (congestive heart failure), CKD (chronic kidney disease) stage 3, GFR 30-59 ml/min, HAYES (dyspnea on exertion) Patient Disposition: Admitted As Inpatient Discharge Instructions Interventions: ED Discharge Assessment Last Done: 11/21/23 20:50 Discharge Problem: Cellulitis Qualifiers: Site of cellulitis: trunk Site of cellulitis of trunk: abdominal wall Qualified Code(s): L03.311 - Cellulitis of abdominal wall Acute exacerbation of CHF (congestive heart failure) Qualifiers: Heart failure type: unspecified Qualified Code(s): I50.9 - Heart failure, unspecified CKD (chronic kidney disease) stage 3, GFR 30-59 ml/min Qualifiers: Chronic kidney disease stage 3 subtype: stage 3a (GFR 45-59) Qualified Code(s): N18.31 - Chronic kidney disease, stage 3a
[2023-11-21 18:33] LABS: Basophils # (auto) 0.05 K/uL (0.00-0.20); Basophils % (auto) 0.5 %; Eosinophils # (auto) 0.52 K/uL (0.00-0.50); Eosinophils % (auto) 4.7 %; Hematocrit (blood only) 43.1 % (37.0-47.0); Hemoglobin 14.3 g/dl (12.0-16.0); Immature Granulocytes # (auto) 0.03 K/uL (0.01-0.20); Immature Granulocytes % (auto) 0.3 %; Lymphocytes # (auto) 1.83 K/uL (1.20-3.40); Lymphocytes % (auto) 16.5 %; Mean Corpuscular Hemoglobin 27.8 pg (25.0-34.0); Mean Corpuscular Hgb Conc 33.2 g/dL (32.0-36.0); Mean Corpuscular Volume 83.7 fL (80.0-100.0); Mean Platelet Volume 10.1 fL (9.4-12.4); Monocytes % (auto) 6.3 %; Neutrophils # (auto) 7.95 K/uL (1.40-6.50); Neutrophils % (auto) 71.7 %; Platelet Count 335 K/uL (130-400); RDW Coefficient of Variation 14.5 % (11.5-14.5); RDW Standard Deviation 44.3 fL (36.4-46.3); Red Blood Count 5.15 M/uL (4.20-5.40); White Blood Count 11.08 K/ul (4.8-10.8)
[2023-11-21] MEDS: cefTRIAXone SODIUM 2,000 MG/50 ML BAG IV STA (18:37)
[2023-11-21 18:39] LABS: Albumin Globulin Ratio 1.1 (0.9-2); Albumin Level 3.9 gm/dl (3.4-5.0); BUN Creatinine Ratio 15.5 (10-20); Bilirubin,Total 0.5 mg/dl (0.2-1.0); Calcium 9.7 mg/dl (8.6-10.3); Creatinine Clr Calc Pharmacy 43.7 ml/min; Est GFR (African American) 26.3 ml/min; Est GFR (Non-African American) 22.7 ml/min; Globulin 3.7 gm/dl (2.5-4.0); Magnesium 1.3 mg/dl (1.7-2.4); Potassium 3.5 mmol/L (3.5-5.1); Total Protein 7.6 gm/dl (6.0-8.3)
--- NOTE | 2023-11-21 18:41 | CT Scan Report ---
CT abd pelvis wo con CLINICAL HISTORY: lower abdominal pain/swelling TECHNIQUE: Helical axial images of the abdomen and pelvis were obtained. Automated dose lowering tech niques and/or adjustment according to patient size were utilized for this exam. This exam was perfor med without intravenous contrast. CT DOSE: 2862.97 mGy.cm COMPARISON: Comparison is made to CT abdomen pelvis 08/24/2023 FINDINGS: Lower chest: No acute abnormality. Liver: Unremarkable. No focal lesions are seen. Gallbladder and biliary tree: Patient is status post cholecystectomy. No intra- or extrahepatic bilia ry ductal dilation. Pancreas: Unremarkable, no focal lesions. Spleen: Unremarkable. Adrenals: Unremarkable. Kidneys and ureters: Atrophic appearance of the right kidney is seen with bilateral cortical scarring . Calcifications are seen in the left kidney. Bladder: Unremarkable. Reproductive organs: Left ovarian cyst is seen. Bowel: Unremarkable. Lymph nodes Retroperitoneal: Unremarkable. Pelvic: Subcentimeter lymph nodes are noted. Mesenteric: Unremarkable. Peritoneum: Normal. Vessels: Atherosclerotic calcifications are seen. Abdominal wall: There is prominent skin thickening and fat stranding in the inferior pannus. No abnor mal fluid collection is seen. Bones: Degenerative changes in the visualized spine. IMPRESSION: 1. Skin thickening and fat stranding in the lower pannus. Clinical correlation is recommended to exc lude cellulitis. No acute abnormality within the abdomen. 2. Nonobstructive nephrolithiasis and cortical scarring. ACT 112: Negative or not required by law. Electronically signed by: Christian Duran M.D. 11/21/2023 6:40 PM
[2023-11-21 18:46] LABS: Troponin I High Sensitivity 4.4 pg/ml (0-14)
--- NOTE | 2023-11-21 18:55 | XRay Report ---
XR chest 1V portable CLINICAL HISTORY: Dyspnea TECHNIQUE: Single frontal radiograph of the chest was obtained. Comparison: Comparison is made to chest radiograph 10/27/2023 FINDINGS: Right reverse arthroplasty is seen. Calcified aortic knob is seen. The lungs are clear. No evidence o f pleural effusion or pneumothorax. IMPRESSION: No acute abnormalities and in particular no radiographic evidence of pneumonia. ACT 112: Negative or not required by law. Electronically signed by: Christian Duran M.D. 11/21/2023 6:54 PM
[2023-11-21 19:04] LABS: Partial Thromboplastin Time 27 Seconds (21-31); Prothrombin Time 11.3 Seconds (9.0-12.0)
--- NOTE | 2023-11-21 19:19 | History & Physical Report ---
Date of Service November 21, 2023 Assessment & Plan (1) Cellulitis of suprapubic region: Plan: Worsening abdominal pain over the past week Hx of cellulitis of abdominal pannus Hx of MRSA infection Mild leukocytosis at 11.08; afebrile CRP/ESR ordered, pending Daptomycin IV q24h Cefepime IV q8h A.m. CBC, BMP, mag, CRP (2) VARINDER (acute kidney injury): Plan: BUN 35, creatinine 2.26 (baseline 1.5), EGFR 22.7 on arrival Avoid all nephrotoxic agents Patient with a left sided absent kidney; congenital Hold losartan, Jardiance Suspect this acute kidney injury may be secondary to starting metolazone 2 days ago Will hold off on Bumex for now and continue to monitor fluids (3) Diabetes mellitus type 2 with neurological manifestations: Plan: Last A1c at 5.7% on 11/02/2023 Patient with controlled glucoses on most recent hospital admission not requiring insulin Will defer for now (4) CHF (congestive heart failure): Plan: Patient follows with the heart failure clinic Last echo on 08/24/2023 revealed LVEF at 65 to 70% Daily weights Strict I&O monitoring Given patient is euvolemic on arrival and the main concern is abdominal pain/VARINDER, will hold diuretics at this time Hold Bumex, spironolactone Discontinue metolazone Continue potassium as it is low normal, and can restart diuresis pending a.m. BMP (5) Congenital kidney disease: Plan: Left-sided absent kidney; congenital Avoid nephrotoxic agents (6) Hypomagnesemia: Plan: Magnesium 1.3 on arrival Magnesium sulfate 1 g IV x 2 Recheck a.m. mag (7) Severe obstructive sleep apnea: Plan: CPAP at bedtime (8) Hx MRSA infection: Plan: Left knee infection 09/2021 Daptomycin (as above) (9) Abdominal pannus: (10) Hypertension: Plan Disposition: Admit to [facility] telemetry Full code Heart healthy, low-sodium diet; will defer fluid restriction at this time VTE PPx: Heparin 7500u SQ q12h History of Present Illness Chief Complaint: Abdominal Pain Primary Care Provider: CARRIE Monaco Trevor is a 63-year-old female with a PMH of congenital kidney disease, CVA, gout, CKD, HTN, dyslipidemia, severe ANDRZEJ, anxiety, depression, CHF, abdominal pannus, sepsis secondary to MRSA infection, and T2DM. She presented on 11/20 for worsening abdominal pain over the past several days. Patient reports she is up around 20 pounds over the past week. Recent discharge from [facility] on 11/04. The patient was started on metolazone on Saturday 11/18 in combination with Bumex, but she has not felt it has helped with her weight gain. She endorses swelling in her abdominal pannus. Her pain is generalized, and she characterizes it as a sharp, constant pain; rated 9/10 at present. She took Tylenol this morning, but this did not help. Pain is usually exacerbated when she lays flat. Not worse when she eats. She took all her regular morning medications today; no recent changes other than starting metolazone 2 days ago. She does watch her salt intake at home; no recent change in diet. She ambulates with a walker at baseline. No supplemental oxygen at home. She reports good compliance with her CPAP at night. SOB is mostly with exertion; she denies orthopnea. The rash on her abdominal pannus is not itchy, but it does hurt. History of cellulitis. She has been applying powder to her pannus, but this does not help. Patient denies smoking, tobacco use, and recent alcohol use. ED course: Rocephin 2000 mg IV ROS: Patient endorses lightheadedness when walking, ZENG, HAYES, generalized abdominal pain across the pannus, rash on abdomen, nausea, and swelling in legs. Patient denies fever, chills, night-sweats, dizziness, changes in vision, chest pain, chest palpitations, chest pressure/tightness, SOB at rest, wheezing, cough, vomiting, diarrhea, changes in urinary/bowel habits, burning with urination, itchy abdomen or blood in the urine/stool. Allergies Allergy/AdvReac Type Severity Reaction Status Date / Time Corticosteroids Allergy Intermediate RASH Verified 11/19/23 10:22 (Glucocorticoids) morphine Allergy Intermediate MOUTH Verified 11/19/23 10:22 SWELLS/FACE SWELLS Penicillins Allergy Intermediate RASH/HIVES Verified 11/19/23 10:22 prednisone Allergy Intermediate RED RASH Verified 11/19/23 10:22 adhesive Allergy Mild Skin rash Verified 11/19/23 10:22 localized zolpidem Allergy Unknown UNSURE Verified 11/19/23 10:22 pregabalin AdvReac Intermediate GOOFY Verified 11/19/23 10:22 Home Medications Medication Instructions Recorded Confirmed Type fluticasone 250 mcg-salmeterol 50 1 inh inhalation BID #1 inhaler 06/25/21 11/21/23 Rx mcg/dose blistr powdr for inhalation (Advair Diskus) cholecalciferol (vitamin D3) 50 2,000 unit PO TID #270 caps 07/18/21 11/21/23 Rx mcg (2,000 unit) capsule (Vitamin D3) acetaminophen 500 mg tablet 1,000 mg (2 x 500 mg) PO Q4H PRN 09/16/21 11/21/23 Rx fever or pain #90 tabs calcium carbonate (Tums) 900 mg PO QAM 03/03/22 11/21/23 History cyanocobalamin (vitamin B-12) 1,000 mcg PO QAM 03/03/22 11/21/23 History 1,000 mcg tablet (Vitamin B-12) bupropion HCl 300 mg 24 hr tablet, 300 mg PO QAM #90 tabs 02/08/23 11/21/23 Rx extended release famotidine 20 mg tablet 20 mg PO HS #90 tabs 03/23/23 11/21/23 Rx pantoprazole 40 mg tablet,delayed 40 mg PO BID #180 tabs 05/26/23 11/21/23 Rx release albuterol sulfate 2.5 mg/3 mL 2.5 mg (3 mL) inhalation Q6H PRN 06/25/23 11/21/23 Rx (0.083 %) solution for nebulization Shortness Of Breath #90 mL aspirin 81 mg tablet,delayed 81 mg PO QAM 06/25/23 11/21/23 History release duloxetine 60 mg capsule,delayed 60 mg PO BID 06/25/23 11/21/23 History release multivitamin 1 tab PO QAM #90 tabs 06/25/23 11/21/23 Rx diclofenac sodium 1 % topical gel 4 g EXT QID #1 tube 08/30/23 11/21/23 Rx (Voltaren Arthritis Pain) nystatin 100,000 unit/gram topical 1 applic topical TID PRN yeast 08/30/23 11/21/23 Rx powder rash under breasts, abdominal skin folds #30 grams gabapentin 400 mg capsule 400 mg PO 4XD 09/09/23 11/21/23 History hydroxyzine HCl 25 mg tablet 25 mg PO .qhs Allergy #30 tabs 09/17/23 11/21/23 Rx allopurinol 100 mg tablet 100 mg PO BID #180 tabs 09/21/23 11/21/23 Rx montelukast 10 mg tablet 10 mg PO QPM #90 tabs 09/21/23 11/21/23 Rx albuterol sulfate 90 mcg/actuation 2 puff inhalation Q4H PRN 09/27/23 11/21/23 Rx aerosol inhaler (Ventolin HFA) Shortness Of Breath Or Wheezing #18 grams CPAP Supplies #1 ea 09/28/23 11/19/23 Rx CPAP Machine #1 ea 09/29/23 11/19/23 Rx buspirone 15 mg tablet 20 mg PO TID 10/20/23 11/21/23 History cetirizine 10 mg tablet (Zyrtec) 10 mg PO BID 10/20/23 11/21/23 History doxycycline hyclate 100 mg tablet 100 mg PO BID 10/20/23 11/21/23 History empagliflozin 10 mg tablet 10 mg PO QAM 10/20/23 11/21/23 History (Jardiance) losartan 25 mg tablet 25 mg PO QAM 10/20/23 11/21/23 History bumetanide 1 mg tablet 2 mg (2 x 1 mg) PO BID #360 tabs 11/05/23 11/21/23 Rx epinephrine 0.3 mg/0.3 mL 0.3 mg (0.3 mL) IM .qdaily PRN 11/05/23 11/21/23 Rx injection, auto-injector anaphylaxis #2 ea spironolactone 50 mg tablet 25 mg (1/2 x 50 mg) PO BID #0 tabs 11/05/23 11/21/23 Rx sucralfate 1 gram tablet 1 g PO AC PRN heartburn/stomach 11/05/23 11/21/23 Rx upset #30 tabs Klor-Con M20 20 mEq 20 meq PO DAILY #90 tabs 11/10/23 11/21/23 Rx tablet,extended release (potassium chloride) metolazone 5 mg tablet 5 mg PO DAILY PRN Fluid Retention 11/19/23 11/21/23 Rx #14 tabs Past Med/Surg History Problem List (Updated 11/21/23 @ 21:52 by Du Bella MD) HAYES (dyspnea on exertion) (Acute) CKD (chronic kidney disease) stage 3, GFR 30-59 ml/min (Acute) Acute exacerbation of CHF (congestive heart failure) (Acute) Cellulitis (Acute) Hx MRSA infection 09/2021 s/p left knee infection > resolved > continues with doxycycline daily for prevention Cellulitis of suprapubic region Acute on chronic heart failure VARINDER (acute kidney injury) Osteoarthritis of hip Constipation Lymphoma Hip pain, right Failure of outpatient treatment (Acute) CRF (chronic renal failure) (Acute) Edema of both lower extremities (Acute) Fluid overload (Acute) Edema of abdominal wall (Acute) Ulcer of both feet Volume overload Lymphadenopathy of left cervical region Urticaria Chronic ulcer of left foot with fat layer exposed Diabetic foot ulcer Diabetes mellitus type 2 with neurological manifestations Candidiasis of skin Solitary kidney, congenital Bilateral hip pain Low back pain Weakness (Acute) History of sepsis Lower extremity edema (Acute) CHF (congestive heart failure) (Acute) Abdominal pannus Fatty liver Dependent lymphedema Stage 3b chronic kidney disease Anemia reason for procedure. iron infusions recently. 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 Other ovarian cyst, left side Vitamin D deficiency Peripheral neuropathy Lumbar spinal stenosis 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- DISCOVERED WITH INCIDENTAL IMAGING Gout CKD (chronic kidney disease) stage 3, GFR 30-59 ml/min monitoring Chronic back pain Acid reflux Medical History Hx-TIA (transient ischemic attack) 2017 > ASA for prevention > no residual effects Hx of sepsis 09/2021 r/t left knee infection Hypertension Lumbar spinal stenosis Arthritis Allergic rhinitis Gout Other ovarian cyst, left side present, just monitoring Acid reflux Severe obstructive sleep apnea cpap Stage 3 chronic kidney disease follows with Dr. Wood Fatty liver CHF (congestive heart failure) follows with [facility] Solitary kidney, congenital Diabetes mellitus, type 2 Ulcer of foot one ulcer present to bottom of bilat feet > follows with wound clinic at [place] Chronic ulcer of right foot with fat layer exposed sees wound clinic > bilat feet at present History of COVID-19 09/2021 Septic arthritis resolved Iron deficiency anemia Venous stasis of both lower extremities MDD (major depressive disorder), recurrent episode, moderate Ambulatory dysfunction uses walker Depression with anxiety Degenerative joint disease, shoulder, right Lymphedema left leg and abdomen / chronic Asthma well controlled, rare res inh use Hyperlipidemia no meds Surgical History History of revision of total replacement of left knee joint History of cardiac cath remote hx over 20 yrs ago, no stents History of colonoscopy History of esophagogastroduodenoscopy (EGD) History of bilateral knee replacement (10/16/22) H/O knee surgery (12/2021) L knee washout w/ polyexchange S/P tonsillectomy and adenoidectomy Status post total shoulder arthroplasty (10/17/18) right History of carpal tunnel release B/L H/O ventral hernia repair History of appendectomy History of cholecystectomy Family History Mother Diabetes Coronary heart disease Myocardial infarction S/P CABG x 3 Hypertension Gallbladder disease Sister Hodgkins lymphoma Brother Kidney disease Grandmother Breast cancer Aunt Ovarian cancer Father , 02/11/20. Peripheral vascular disease Daughter Diabetes Other Cancer No family history of adverse response to anesthesia Denies family history of Prostate cancer Colorectal cancer Social History Smoking Status: Former smoker Tobacco Type: Cigarettes Age Started Using Tobacco: 22; Age Quit Using Tobacco: 24; Second Hand Exposure: No; Do You Dip or Chew Tobacco: No; Hx Alcohol Use: No Hx Substance Use: No Preferred Language: Citizen Of [place] 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 Ability: Effective Visual Impairment: Limited Hearing Ability: Normal Precision Grinder External Required: No Beliefs That Will Affect Care: None marital status: marital status details: ; lives with parents & 1 daughter Current Living Situation: Parent and Family Current Living Situation Comment: daughter and mom current occupational status: disabled other: worked in [employer] in [place]; 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 Feels Safe at Home: Yes Childhood Exposure to Second-Hand Smoke: No Diet: regular Diet Comment: regular caffeine: No Dental Care, Regularly: No Physical Activity Frequency: Does not Exercise Seatbelt Use: always Sunscreen Use: Yes Assistive Devices: Walker Review of Systems Review of Systems: See HPI above Physical Exam Physical Exam: General: no acute distress; pleasant affect; non-toxic appearing; well- nourished; cooperative; SpO2 96% on RA HEENT: normocephalic, atraumatic; no scleral icterus; PERRLA w/ EOMs intact; moist mucus membrane; vision and hearing grossly intact Neck: supple; no lymphadenopathy; trachea midline Skin: warm, dry without signs of tenting; no cyanosis; no rashes, bruising, lesions, or erythema noted CV: chest wall NTP; RRR; S1/S2 normal; no murmurs/rubs/gallops; pulses intact and symmetric at radial, DP, and PT Lungs: no acute respiratory distress; symmetrical chest wall expansion; clear breath sounds across all lung razo w/o adventitious sounds; no wheezing ABD: Soft, NTP; BS present; suboptimal exam secondary to patient's body habitus; abdominal pannus with mild erythema in the lower transverse quadrants bilaterally; skin breakdown along the left under crease of pannus MSK: no tics or fasciculations; no edema noted in the LEs b/l; dark brown skin crackling extending from the knees to the ankles; patient demonstrates ability to wiggle toes bilaterally Neuro: A&Ox3; normal mood and affect; fluent speech; no focal deficits; diminish ed sensation bilaterally in the lower extremities Results & Data Results & Data Vital Signs (Past 12 Hours) Vital Signs Temp Pulse Pulse Resp BP BP Pulse Ox 11/21/23 19:04 96 11/21/23 19:04 93 H 18 138/97 96 11/21/23 17:46 95 H 11/21/23 17:33 36.6 C 104 H 19 102/61 94 O2 Del Method 11/21/23 19:04 Room Air 11/21/23 19:04 Room Air 11/21/23 17:46 11/21/23 17:33 Room Air Laboratory Results Abnormal lab results 11/21/23 Range/Units 17:50 WBC 11.08 H (4.8-10.8) K/ul Neut # (Auto) 7.95 H (1.40-6.50) K/uL [place] # (Auto) 0.70 H (0.11-0.59) K/uL Eos # (Auto) 0.52 H (0.00-0.50) K/uL Chloride 97 L (98-107) mmol/L BUN 35 H (6-23) mg/dl Creatinine 2.26 H (0.6-1.2) mg/dl Magnesium 1.3 L (1.7-2.4) mg/dl Diagnostic Findings Abdomen/Pelvis CT 11/21/23 17:59 CT abd pelvis wo con CLINICAL HISTORY: lower abdominal pain/swelling TECHNIQUE: Helical axial images of the abdomen and pelvis were obtained. Automated dose lowering techniques and/or adjustment according to patient size were utilized for this exam. This exam was performed without intravenous contrast. CT DOSE: 2862.97 mGy.cm COMPARISON: Comparison is made to CT abdomen pelvis 08/24/2023 FINDINGS: Lower chest: No acute abnormality. Liver: Unremarkable. No focal lesions are seen. Gallbladder and biliary tree: Patient is status post cholecystectomy. No intra- or extrahepatic biliary ductal dilation. Pancreas: Unremarkable, no focal lesions. Spleen: Unremarkable. Adrenals: Unremarkable. Kidneys and ureters: Atrophic appearance of the right kidney is seen with bilateral cortical scarring. Calcifications are seen in the left kidney. Bladder: Unremarkable. Reproductive organs: Left ovarian cyst is seen. Bowel: Unremarkable. Lymph nodes Retroperitoneal: Unremarkable. Pelvic: Subcentimeter lymph nodes are noted. Mesenteric: Unremarkable. Peritoneum: Normal. Vessels: Atherosclerotic calcifications are seen. Abdominal wall: There is prominent skin thickening and fat stranding in the inferior pannus. No abnormal fluid collection is seen. Bones: Degenerative changes in the visualized spine. IMPRESSION: 1. Skin thickening and fat stranding in the lower pannus. Clinical correlation is recommended to exclude cellulitis. No acute abnormality within the abdomen. 2. Nonobstructive nephrolithiasis and cortical scarring. ACT 112: Negative or not required by law. Electronically signed by: Christian Duran M.D. 11/21/2023 6:40 PM Chest X-Ray 11/21/23 17:59 XR chest 1V portable CLINICAL HISTORY: Dyspnea TECHNIQUE: Single frontal radiograph of the chest was obtained. Comparison: Comparison is made to chest radiograph 10/27/2023 FINDINGS: Right reverse arthroplasty is seen. Calcified aortic knob is seen. The lungs are clear. No evidence of pleural effusion or pneumothorax. IMPRESSION: No acute abnormalities and in particular no radiographic evidence of pneumonia. ACT 112: Negative or not required by law. Electronically signed by: Christian Duran M.D. 11/21/2023 6:54 PM ECG Additional Comments: ECG revealed NSR at 99 bpm; QTc 541 (caution use of QT prolonging agents) Code Status & VTE Plan Code Status Full code VTE Prophylaxis Plan VTE Prophylaxis will be ordered: Yes Supervising Physician Co-Signing Physician Notes Attending addendum: I have physically seen this patient, have supervised the NOVA's activities, and agree with the H&P unless as otherwise noted. Assessment and Plan: Cellulitis of abdominal wall/suprapubic region- History of MRSA infection Daptomycin IV Cefepime IV Serial CBC with differential, BMP, mag and CRP Acute kidney injury superimposed on CKD- Creatinine 2.26, with base 1.51 Likely brought on by addition of metolazone to bumetanide while on losartan and Jardiance, all of which will be held Repeat laboratories in a.m., and restart bumetanide when indicated Diabetes mellitus- Most recent A1c 5.7 on 11/02/2023 Hold on testing at this point unless a.m. glucose on BMP is abnormal Hypomagnesemia- Magnesium 1.3 on admission Will replace with IV mag 2 g and recheck laboratories in a.m. Holding bumetanide and metolazone as noted above CHF/hypertension- Holding medications as noted above Restart as needed PG Care Time/CCT Total # of Minutes Spent Total Time Spent with Patient: Total time spent is greater than 50% in coordination of care (as documented) at patient's floor/unit and/or counseling patient: Coding [place] [address] INT INP/OBS CARE 3/75MIN Patient Type Established Medical Decision Making High Complexity Diagnoses Cellulitis of suprapubic region L03.319 VARINDER (acute kidney injury) N17.9 Diabetes mellitus type 2 with neurological manifestations E11.49 CHF (congestive heart failure) I50.9 Heart failure chronicity: acute on chronic Heart failure type: unspecified Congenital kidney disease N28.9 Hypomagnesemia E83.42 Severe obstructive sleep apnea G47.33 Hx MRSA infection Z86.14 Abdominal pannus E65 Primary hypertension I10 Hypertension type: unspecified (4) CHF (congestive heart failure) Heart failure chronicity: acute on chronic Heart failure type: unspecified Qualified Code(s): I50.9 - Heart failure, unspecified (10) Hypertension Hypertension type: unspecified Qualified Code(s): I10 - Essential (primary) hypertension
[2023-11-21] MEDS: BUMETANIDE 2 MG in SYRINGE 0 ML IV ONE (19:48)
[2023-11-21 20:12] LABS: Appearance Urine Clear (Clear); Bilirubin Urine Negative (Negative); Blood Urine Negative (Negative); Color Urine Yellow; Glucose Urine UA Negative (Negative); Ketones Urine Negative (Negative); Leukocyte Esterase Urine Negative (Negative); Nitrite Urine Negative (Negative); Protein Urine Negative (Negative); Urobilinogen Urine Negative (Negative); pH Urine 5.5 (4.5-7.5)
[2023-11-21] MEDS ORDERED: SUCRALFATE 1 GM TAB PO PRN (20:50)
[2023-11-21] MEDS ORDERED: ALBUTEROL HFA 8 GM INHALER INH PRN (20:50)
[2023-11-21] MEDS ORDERED: ALBUTEROL 0.083% NEBU SOLN 3 ML VIAL INH PRN (20:50)
[2023-11-21] MEDS: POTASSIUM CHLORIDE CRTAB 20 MEQ TABCR PO STA (21:05)
[2023-11-21] MEDS: DAPTOmycin 425 MG in SYRINGE 0 ML IV SCH (21:05)
[2023-11-21] MEDS: CEFEPIME 2,000 MG in SYRINGE 0 ML IV STA (21:06)
[2023-11-21] MEDS: PANTOprazole 40 MG TAB PO SCH (22:20)
[2023-11-21] MEDS: CETIRIZINE HCL 10 MG TABLET PO SCH (22:20)
[2023-11-21] MEDS: GABAPENTIN 400 MG CAP PO SCH (22:20)
[2023-11-21] MEDS: allopurinoL 100 MG TAB PO SCH (22:20)
[2023-11-21] MEDS: DULoxetine HCL 60 MG CAP PO SCH (22:20)
[2023-11-21] MEDS: busPIRone 5 MG TAB PO SCH (22:21)
[2023-11-21] MEDS: FAMOTIDINE 20 MG TAB PO SCH (22:21)
[2023-11-21] MEDS: MONTELUKAST SODIUM 10 MG TABLET PO SCH (22:21)
[2023-11-21] MEDS: HEPARIN SOD 5,000 UNIT/0.5 ML VIAL SQ SCH (22:21)
[2023-11-21] MEDS: hydrOXYzine HCl 25 MG TAB PO SCH (22:21)
[2023-11-21] MEDS: DICLOFENAC SOD 1% GEL 100 GM TUBE EXT SCH (22:31)
[2023-11-21 22:35] LABS: C Reactive Protein 4.1 mg/dl (0-0.5)
[2023-11-22 04:48] LABS: BUN Creatinine Ratio 18.6 (10-20); C Reactive Protein 3.69 mg/dl (0-0.5); Calcium 8.5 mg/dl (8.6-10.3); Creatinine Clr Calc Pharmacy 50.9 ml/min; Est GFR (African American) 31.6 ml/min; Est GFR (Non-African American) 27.3 ml/min; Magnesium 1.4 mg/dl (1.7-2.4)
[2023-11-22 04:49] LABS: Basophils # (auto) 0.05 K/uL (0.00-0.20); Basophils % (auto) 0.5 %; Eosinophils % (auto) 4.7 %; Hematocrit (blood only) 35.8 % (37.0-47.0); Hemoglobin 11.9 g/dl (12.0-16.0); Immature Granulocytes # (auto) 0.02 K/uL (0.01-0.20); Immature Granulocytes % (auto) 0.2 %; Lymphocytes # (auto) 2.56 K/uL (1.20-3.40); Lymphocytes % (auto) 24.1 %; Mean Corpuscular Hemoglobin 27.7 pg (25.0-34.0); Mean Corpuscular Hgb Conc 33.2 g/dL (32.0-36.0); Mean Corpuscular Volume 83.3 fL (80.0-100.0); Mean Platelet Volume 10.3 fL (9.4-12.4); Monocytes # (auto) 0.93 K/uL (0.11-0.59); Monocytes % (auto) 8.7 %; Neutrophils # (auto) 6.58 K/uL (1.40-6.50); Neutrophils % (auto) 61.8 %; Platelet Count 266 K/uL (130-400); RDW Coefficient of Variation 14.6 % (11.5-14.5); RDW Standard Deviation 43.8 fL (36.4-46.3); White Blood Count 10.64 K/ul (4.8-10.8)
[2023-11-22] MEDS: FLUTICASONE/VILANTEROL 200/25MCG 14 PUFFS/INHALER INH SCH (07:46)
[2023-11-22] MEDS: POTASSIUM CHLORIDE CRTAB 20 MEQ TABCR PO SCH (07:49)
[2023-11-22] MEDS: buPROPion XL 300 MG TABCR PO SCH (07:51)
[2023-11-22] MEDS: CEFEPIME 2,000 MG in SYRINGE 0 ML IV SCH (07:52)
[2023-11-22] MEDS: CALCIUM CARBONATE 500 MG CHEWABLE TAB PO SCH (07:54)
[2023-11-22] MEDS: ASPIRIN 81 MG ECTAB PO SCH (07:55)
--- NOTE | 2023-11-22 12:07 | Hospitalist Progress Note ---
Date of Service November 22, 2023 Assessment & Plan (1) Cellulitis of suprapubic region: Plan: Patient presents to the hospital with Worsening abdominal pain over the past week Hx of cellulitis of abdominal pannus Hx of MRSA infection Leukocytosis and also elevated CRP on admission Daptomycin IV q24h Cefepime IV q8h A.m. CBC, BMP, mag, CRP (2) VARINDER (acute kidney injury): Plan: Serum creatinine 1.9 today Avoid all nephrotoxic agents Patient with a left sided absent kidney; congenital Hold losartan, Jardiance Will continue IV Bumex in spite of the elevated creatinine, patient still has significant abdominal wall edema which is impairing wound healing. (3) Diabetes mellitus type 2 with neurological manifestations: Plan: Last A1c at 5.7% on 11/02/2023 Patient with controlled glucoses on most recent hospital admission not requiring insulin Will defer for now (4) CHF (congestive heart failure): Plan: Patient follows with the heart failure clinic Last echo on 08/24/2023 revealed LVEF at 65 to 70% Daily weights Strict I&O monitoring Given patient is euvolemic on arrival and the main concern is abdominal pain/VARINDER, will hold diuretics at this time Hold Bumex, spironolactone Discontinue metolazone Continue potassium as it is low normal, and can restart diuresis pending a.m. BMP (5) Congenital kidney disease: Plan: Left-sided absent kidney; congenital Avoid nephrotoxic agents (6) Hypomagnesemia: Plan: Magnesium 1.3 on arrival Magnesium sulfate 1 g IV x 2 Recheck a.m. mag (7) Severe obstructive sleep apnea: Plan: CPAP at bedtime (8) Hx MRSA infection: Plan: Left knee infection 09/2021 Daptomycin (as above) (9) Abdominal pannus: Plan: Significant abdominal wall edema which is impairing wound healing Will continue IV Bumex and antibiotics (10) Hypertension: (11) Chronic heart failure with preserved ejection fraction: Plan: Ejection fraction is preserved Patient appears compensated however still has abdominal edema which mostly could be due to lymphedema. However we will continue Bumex for now Monitor input and output, daily weight. Plan Disposition: Continue to monitor in the hospital, continue antibiotics and diuretics. Full code Heart healthy, low-sodium diet; will defer fluid restriction at this time VTE PPx: Heparin 7500u SQ q12h Admission and Anticipated Discharge Date Admission Date: November 21, 2023 Subjective Patient seen and examined, still feels she has a lot of weight around the abdomen and also she has gained about 20 to 30 pounds of weight overall in the past few months. Review of Systems Review of Systems: All systems reviewed are negative, apart from the ones contained in the history. Physical Exam Physical Exam: The patient is awake, alert and oriented 3, Morbidly obese HEENT--PERRL, EOMI, mucous membranes and oropharynx mildly dry Neck--supple. No JVD. No bruits. Thyroid normal, trachea midline, no adenopathy. Heart--normal S1 and S2. No murmurs, rubs or gallops. Lungs--clear bilaterally, no respiratory distress, no accessory muscle use. Abdomen--normal bowel sounds and soft. Area of cellulitis around the pannus Extremities--no cyanosis or clubbing. No edema. Dermatologic--normal skin turgor, normal color, no abnormal lymph nodes, no rash. Neurologic--cranial nerves II through XII grossly intact. Rheumatologic--normal range of motion. Psychiatric--normal affect. Results & Data Results & Data Vital Signs (Past 12 Hours) Vital Signs Temp Pulse Pulse Resp BP BP Pulse Ox 11/22/23 10:28 98.4 F 70 20 142/68 H 95 11/22/23 07:20 11/22/23 07:20 11/22/23 07:20 84 20 126/60 98 11/22/23 06:41 83 11/22/23 06:12 76 18 97 11/22/23 06:06 65 23 141/63 H 97 11/22/23 05:51 66 19 98 11/22/23 05:42 64 23 97 11/22/23 05:30 77 19 96 11/22/23 05:21 75 16 97 11/22/23 05:00 77 18 98 11/22/23 04:51 68 17 96 11/22/23 04:33 66 15 93 11/22/23 04:18 83 18 142/70 H 96 11/22/23 04:03 83 22 96 11/22/23 04:00 142/70 H 11/22/23 04:00 142/70 H 11/22/23 04:00 142/70 H 11/22/23 03:41 82 17 96 11/22/23 03:35 83 17 95 11/22/23 03:29 84 19 95 11/22/23 03:14 82 16 94 11/22/23 02:50 87 16 96 11/22/23 02:42 84 21 94 11/22/23 02:39 85 20 94 11/22/23 02:24 86 16 95 11/22/23 02:12 88 14 96 11/22/23 02:03 90 18 97 11/22/23 02:00 115/57 L 11/22/23 02:00 115/57 L 11/22/23 01:51 89 22 96 11/22/23 01:24 90 20 95 11/22/23 01:12 87 19 96 11/22/23 01:09 88 20 96 11/22/23 00:54 85 19 96 11/22/23 00:48 86 18 96 11/22/23 00:36 88 21 95 11/22/23 00:21 92 H 20 97 11/22/23 00:15 90 20 96 11/22/23 00:06 89 19 96 Pulse Ox O2 Del Method O2 Del Method O2 Flow Rate 11/22/23 10:28 Nasal Cannula 2 11/22/23 07:20 Room Air 11/22/23 07:20 95 Room Air 11/22/23 07:20 Room Air 11/22/23 06:41 11/22/23 06:12 11/22/23 06:06 11/22/23 05:51 11/22/23 05:42 11/22/23 05:30 11/22/23 05:21 11/22/23 05:00 11/22/23 04:51 11/22/23 04:33 11/22/23 04:18 11/22/23 04:03 11/22/23 04:00 11/22/23 04:00 11/22/23 04:00 11/22/23 03:41 11/22/23 03:35 11/22/23 03:29 11/22/23 03:14 11/22/23 02:50 11/22/23 02:42 11/22/23 02:39 11/22/23 02:24 11/22/23 02:12 11/22/23 02:03 11/22/23 02:00 11/22/23 02:00 11/22/23 01:51 11/22/23 01:24 11/22/23 01:12 11/22/23 01:09 11/22/23 00:54 11/22/23 00:48 11/22/23 00:36 11/22/23 00:21 11/22/23 00:15 11/22/23 00:06 PG Care Time/CCT Total # of Minutes Spent Total Time Spent with Patient: Total time spent is greater than 50% in coordination of care (as documented) at patient's floor/unit and/or counseling patient: Coding Level of Care Code 37616 SUB INP/OBS CARE 2/35MIN Diagnoses Cellulitis of suprapubic region L03.319 VARINDER (acute kidney injury) N17.9 Diabetes mellitus type 2 with neurological manifestations E11.49 CHF (congestive heart failure) I50.9 Heart failure chronicity: acute on chronic Heart failure type: unspecified Congenital kidney disease N28.9 Hypomagnesemia E83.42 Severe obstructive sleep apnea G47.33 Hx MRSA infection Z86.14 Abdominal pannus E65 Primary hypertension I10 Hypertension type: unspecified Chronic heart failure with preserved ejection fraction I50.32 Time Spent (min) 35 (4) CHF (congestive heart failure) Heart failure chronicity: acute on chronic Heart failure type: unspecified Qualified Code(s): I50.9 - Heart failure, unspecified (10) Hypertension Hypertension type: unspecified Qualified Code(s): I10 - Essential (primary) hypertension
[2023-11-22] MEDS: traMADol HCL 50 MG TABLET PO STA (12:36)
[2023-11-22] MEDS: POTASSIUM CHLORIDE CRTAB 20 MEQ TABCR PO STA (12:36)
[2023-11-22] MEDS: MAGNESIUM SULFATE / D5W 1 GM/100 ML BAG IV SCH (12:40)
--- NOTE | 2023-11-22 15:56 | Electrocardiogram Report ---
Test Reason : Blood Pressure : / mmHG Vent. Rate : 099 BPM Atrial Rate : 099 BPM P-R Int : 176 ms QRS Dur : 078 ms QT Int : 422 ms P-R-T Axes : 049 -37 073 degrees QTc Int : 541 ms Normal sinus rhythm Left axis deviation Minimal voltage criteria for LVH, may be normal variant Nonspecific ST abnormality Inferior infarct (cited on or before 21-NOV-2023) Anterolateral infarct (cited on or before 21-NOV-2023) Abnormal ECG When compared with ECG of 28-OCT-2023 16:21, Nonspecific T wave abnormality, improved in Anterior leads Confirmed by Norris Bower ([id number]) on 11/22/2023 3:56:29 PM Referred By: REFERRED SELF Confirmed By:Prashanth Bower
[2023-11-22] MEDS: BUMETANIDE 2 MG in SYRINGE 0 ML IV SCH (16:45)
[2023-11-22] MEDS: ACETAMINOPHEN 500 MG TAB PO PRN (18:25)
[2023-11-23 07:58] LABS: Basophils # (auto) 0.02 K/uL (0.00-0.20); Basophils % (auto) 0.3 %; Eosinophils # (auto) 0.39 K/uL (0.00-0.50); Eosinophils % (auto) 5.9 %; Hematocrit (blood only) 35.3 % (37.0-47.0); Hemoglobin 11.5 g/dl (12.0-16.0); Immature Granulocytes # (auto) 0.01 K/uL (0.01-0.20); Immature Granulocytes % (auto) 0.2 %; Lymphocytes # (auto) 2.27 K/uL (1.20-3.40); Lymphocytes % (auto) 34.3 %; Mean Corpuscular Hemoglobin 27.3 pg (25.0-34.0); Mean Corpuscular Hgb Conc 32.6 g/dL (32.0-36.0); Mean Corpuscular Volume 83.8 fL (80.0-100.0); Monocytes # (auto) 0.45 K/uL (0.11-0.59); Monocytes % (auto) 6.8 %; Neutrophils # (auto) 3.48 K/uL (1.40-6.50); Neutrophils % (auto) 52.5 %; Platelet Count 227 K/uL (130-400); RDW Coefficient of Variation 14.6 % (11.5-14.5); RDW Standard Deviation 44.7 fL (36.4-46.3); Red Blood Count 4.21 M/uL (4.20-5.40); White Blood Count 6.62 K/ul (4.8-10.8)
[2023-11-23 08:13] LABS: BUN Creatinine Ratio 18.8 (10-20); C Reactive Protein 4.26 mg/dl (0-0.5); Calcium 8.4 mg/dl (8.6-10.3); Creatinine Clr Calc Pharmacy 62.3 ml/min; Est GFR (African American) 43.5 ml/min; Est GFR (Non-African American) 37.5 ml/min; Magnesium 1.6 mg/dl (1.7-2.4); Potassium 2.9 mmol/L (3.5-5.1)
[2023-11-23] MEDS: traMADol HCL 50 MG TABLET PO STA (10:26)
--- NOTE | 2023-11-23 14:23 | Hospitalist Progress Note ---
Date of Service November 23, 2023 Assessment & Plan (1) Cellulitis of suprapubic region: Plan: Worsening abdominal pain over the past week Hx of cellulitis of abdominal pannus Hx of MRSA infection Elevated inflammatory markers Daptomycin IV q24h Cefepime IV q8h Wound care consult (2) VARINDER (acute kidney injury): Plan: Avoid all nephrotoxic agents Patient with a left sided absent kidney; congenital Hold losartan, Jardiance (3) Diabetes mellitus type 2 with neurological manifestations: Plan: Last A1c at 5.7% on 11/02/2023 Patient with controlled glucoses on most recent hospital admission not requiring insulin Will defer for now (4) CHF (congestive heart failure): Plan: Patient follows with the heart failure clinic Last echo on 08/24/2023 revealed LVEF at 65 to 70% Daily weights Strict I&O monitoring continue Bumex, spironolactone Discontinue metolazone (5) Congenital kidney disease: Plan: Left-sided absent kidney; congenital Avoid nephrotoxic agents (6) Morbid obesity: Plan: Morbid obesity with BMI 48.7 (7) Hypomagnesemia: Plan: Replace (8) Severe obstructive sleep apnea: Plan: CPAP at bedtime (9) Hx MRSA infection: Plan: Left knee infection 09/2021 Daptomycin (as above) (10) Abdominal pannus: (11) Hypertension: Plan Disposition: Continue hospitalization Full code Heart healthy, low-sodium diet; will defer fluid restriction at this time VTE PPx: Heparin 7500u SQ q12h Admission and Anticipated Discharge Date Admission Date: November 21, 2023 Subjective Patient seen and examined, still feels she has a lot of weight around the abdomen and also she has gained about 20 to 30 pounds of weight overall in the past few months. Review of Systems Review of Systems: All systems reviewed are negative, apart from the ones contained in the history. Physical Exam Physical Exam: The patient is awake, alert and oriented 3, Morbidly obese HEENT--PERRL, EOMI, mucous membranes and oropharynx mildly dry Neck--supple. No JVD. No bruits. Thyroid normal, trachea midline, no adenopathy. Heart--normal S1 and S2. No murmurs, rubs or gallops. Lungs--clear bilaterally, no respiratory distress, no accessory muscle use. Abdomen--normal bowel sounds and soft. Area of cellulitis around the pannus Extremities--no cyanosis or clubbing. No edema. Dermatologic--normal skin turgor, normal color, no abnormal lymph nodes, no rash. Neurologic--cranial nerves II through XII grossly intact. Rheumatologic--normal range of motion. Psychiatric--normal affect. Results & Data Results & Data Vital Signs (Past 12 Hours) Vital Signs Temp Pulse Pulse Resp BP Pulse Ox O2 Del Method 11/23/23 14:16 72 11/23/23 11:37 98.2 F 96 H 18 114/67 97 Room Air 11/23/23 10:42 Nasal Cannula 11/23/23 07:31 98.2 F 70 18 107/69 99 Room Air 11/23/23 07:00 64 O2 Flow Rate 11/23/23 14:16 11/23/23 11:37 11/23/23 10:42 2 11/23/23 07:31 11/23/23 07:00 PG Care Time/CCT Total # of Minutes Spent Total Time Spent with Patient: Total time spent is greater than 50% in coordination of care (as documented) at patient's floor/unit and/or counseling patient: Coding Level of Care Code 90704 SUB INP/OBS CARE 2/35MIN Diagnoses Cellulitis of suprapubic region L03.319 VARINDER (acute kidney injury) N17.9 Diabetes mellitus type 2 with neurological manifestations E11.49 CHF (congestive heart failure) I50.9 Heart failure chronicity: acute on chronic Heart failure type: unspecified Congenital kidney disease N28.9 Morbid obesity E66.01 Hypomagnesemia E83.42 Severe obstructive sleep apnea G47.33 Hx MRSA infection Z86.14 Abdominal pannus E65 Primary hypertension I10 Hypertension type: unspecified Time Spent (min) 35 (4) CHF (congestive heart failure) Heart failure chronicity: acute on chronic Heart failure type: unspecified Qualified Code(s): I50.9 - Heart failure, unspecified (11) Hypertension Hypertension type: unspecified Qualified Code(s): I10 - Essential (primary) hypertension
[2023-11-23] MEDS: NYSTATIN POWDER 15GM BTL EXT PRN (21:43)
[2023-11-24 06:45] LABS: Basophils # (auto) 0.03 K/uL (0.00-0.20); Basophils % (auto) 0.4 %; Eosinophils # (auto) 0.39 K/uL (0.00-0.50); Hematocrit (blood only) 36.6 % (37.0-47.0); Immature Granulocytes # (auto) 0.01 K/uL (0.01-0.20); Immature Granulocytes % (auto) 0.1 %; Lymphocytes # (auto) 2.63 K/uL (1.20-3.40); Lymphocytes % (auto) 33.6 %; Mean Corpuscular Hemoglobin 27.6 pg (25.0-34.0); Mean Corpuscular Hgb Conc 32.8 g/dL (32.0-36.0); Mean Corpuscular Volume 84.1 fL (80.0-100.0); Mean Platelet Volume 10.1 fL (9.4-12.4); Monocytes # (auto) 0.45 K/uL (0.11-0.59); Monocytes % (auto) 5.8 %; Neutrophils # (auto) 4.31 K/uL (1.40-6.50); Neutrophils % (auto) 55.1 %; Platelet Count 212 K/uL (130-400); RDW Coefficient of Variation 14.5 % (11.5-14.5); RDW Standard Deviation 44.5 fL (36.4-46.3); Red Blood Count 4.35 M/uL (4.20-5.40); White Blood Count 7.82 K/ul (4.8-10.8)
[2023-11-24 07:10] LABS: C Reactive Protein 3.96 mg/dl (0-0.5); Calcium 8.6 mg/dl (8.6-10.3); Creatinine Clr Calc Pharmacy 64.1 ml/min; Est GFR (African American) 44.9 ml/min; Est GFR (Non-African American) 38.8 ml/min; Potassium 3.2 mmol/L (3.5-5.1)
[2023-11-24] MEDS: POTASSIUM CHLORIDE CRTAB 20 MEQ TABCR PO STA (08:13)
[2023-11-24] MEDS: traMADol HCL 50 MG TABLET PO STA (08:14)
--- NOTE | 2023-11-24 11:48 | Hospitalist Progress Note ---
Date of Service November 24, 2023 Assessment & Plan (1) Cellulitis of suprapubic region: Plan: Patient was admitted on account of Worsening abdominal pain over the past week Hx of cellulitis of abdominal pannus Hx of MRSA infection Elevated inflammatory markers Daptomycin IV q24h Cefepime IV q8h Wound care consult Some improvement in area of inflammation and swelling (2) VARINDER (acute kidney injury): Plan: Avoid all nephrotoxic agents Patient with a left sided absent kidney; congenital Hold losartan, Jardiance (3) Diabetes mellitus type 2 with neurological manifestations: Plan: Last A1c at 5.7% on 11/02/2023 Patient with controlled glucoses on most recent hospital admission not requiring insulin Will defer for now (4) CHF (congestive heart failure): Plan: Patient follows with the heart failure clinic Last echo on 08/24/2023 revealed LVEF at 65 to 70% Daily weights Strict I&O monitoring continue Bumex, spironolactone Discontinue metolazone (5) Congenital kidney disease: Plan: Left-sided absent kidney; congenital Avoid nephrotoxic agents (6) Hypokalemia: Plan: Due to diuretics Replace (7) Morbid obesity: Plan: Morbid obesity with BMI 48.7 (8) Hypomagnesemia: Plan: Replace (9) Severe obstructive sleep apnea: Plan: CPAP at bedtime (10) Hx MRSA infection: Plan: Left knee infection 09/2021 Daptomycin (as above) (11) Abdominal pannus: (12) Hypertension: Plan Disposition: Continue hospitalization Full code Heart healthy, low-sodium diet; will defer fluid restriction at this time VTE PPx: Heparin 7500u SQ q12h Admission and Anticipated Discharge Date Admission Date: November 21, 2023 Subjective Patient seen and examined, feels overall better, feels that the abdominal pain and swelling is also better. Review of Systems Review of Systems: All systems reviewed are negative, apart from the ones contained in the history. Physical Exam Physical Exam: The patient is awake, alert and oriented 3, Morbidly obese HEENT--PERRL, EOMI, mucous membranes and oropharynx mildly dry Neck--supple. No JVD. No bruits. Thyroid normal, trachea midline, no adenopathy. Heart--normal S1 and S2. No murmurs, rubs or gallops. Lungs--clear bilaterally, no respiratory distress, no accessory muscle use. Abdomen--normal bowel sounds and soft. Area of cellulitis around the pannus Extremities--no cyanosis or clubbing. No edema. Dermatologic--normal skin turgor, normal color, no abnormal lymph nodes, no rash. Neurologic--cranial nerves II through XII grossly intact. Rheumatologic--normal range of motion. Psychiatric--normal affect. Results & Data Results & Data Vital Signs (Past 12 Hours) Vital Signs Temp Pulse Pulse Resp BP BP Pulse Ox 11/24/23 11:16 97.9 F 74 18 114/73 95 11/24/23 08:01 97.9 F 88 18 110/64 98 11/24/23 07:19 67 11/24/23 03:46 97.5 F L 73 18 101/63 93 O2 Del Method 11/24/23 11:16 Room Air 11/24/23 08:01 Room Air 11/24/23 07:19 11/24/23 03:46 CPAP PG Care Time/CCT Total # of Minutes Spent Total Time Spent with Patient: Total time spent is greater than 50% in coordination of care (as documented) at patient's floor/unit and/or counseling patient: Coding Level of Care Code 39200 SUB INP/OBS CARE 2/35MIN Diagnoses Cellulitis of suprapubic region L03.319 VARINDER (acute kidney injury) N17.9 Diabetes mellitus type 2 with neurological manifestations E11.49 CHF (congestive heart failure) I50.9 Heart failure chronicity: acute on chronic Heart failure type: unspecified Congenital kidney disease N28.9 Hypokalemia E87.6 Morbid obesity E66.01 Hypomagnesemia E83.42 Severe obstructive sleep apnea G47.33 Hx MRSA infection Z86.14 Abdominal pannus E65 Primary hypertension I10 Hypertension type: unspecified Time Spent (min) 35 (4) CHF (congestive heart failure) Heart failure chronicity: acute on chronic Heart failure type: unspecified Qualified Code(s): I50.9 - Heart failure, unspecified (12) Hypertension Hypertension type: unspecified Qualified Code(s): I10 - Essential (primary) hypertension
[2023-11-25 06:52] LABS: Hematocrit (blood only) 35.1 % (37.0-47.0); Hemoglobin 11.5 g/dl (12.0-16.0); Mean Corpuscular Hemoglobin 27.5 pg (25.0-34.0); Mean Corpuscular Hgb Conc 32.8 g/dL (32.0-36.0); Mean Platelet Volume 10.2 fL (9.4-12.4); Platelet Count 214 K/uL (130-400); RDW Coefficient of Variation 14.4 % (11.5-14.5); RDW Standard Deviation 44.2 fL (36.4-46.3); Red Blood Count 4.18 M/uL (4.20-5.40); White Blood Count 7.64 K/ul (4.8-10.8)
--- NOTE | 2023-11-25 12:39 | Hospitalist Progress Note ---
Date of Service November 25, 2023 Assessment & Plan (1) Cellulitis of suprapubic region: Plan: Patient was admitted on account of Worsening abdominal pain over the past week Hx of cellulitis of abdominal pannus Hx of MRSA infection Elevated inflammatory markers Daptomycin IV q24h Cefepime IV q8h Wound care consult Appreciated A lot of improvement in swelling and area of inflammation (2) VARINDER (acute kidney injury): Plan: Avoid all nephrotoxic agents Patient with a left sided absent kidney; congenital Hold losartan, Jardiance (3) Diabetic foot ulcer: Plan: Chronic diabetic foot ulcer of the left foot Continue wound care here Outpatient follow-up with wound care and podiatry (4) Diabetes mellitus type 2 with neurological manifestations: Plan: Last A1c at 5.7% on 11/02/2023 Patient with controlled glucoses on most recent hospital admission not requiring insulin Will defer for now (5) CHF (congestive heart failure): Plan: Patient follows with the heart failure clinic Last echo on 08/24/2023 revealed LVEF at 65 to 70% Daily weights Strict I&O monitoring continue Bumex, spironolactone Discontinue metolazone (6) Congenital kidney disease: Plan: Left-sided absent kidney; congenital Avoid nephrotoxic agents (7) Hypokalemia: Plan: Due to diuretics Replace (8) Morbid obesity: Plan: Morbid obesity with BMI 48.7 (9) Hypomagnesemia: Plan: Replace (10) Severe obstructive sleep apnea: Plan: CPAP at bedtime (11) Hx MRSA infection: Plan: Left knee infection 09/2021 Daptomycin (as above) (12) Abdominal pannus: (13) Hypertension: Plan Disposition: Continue hospitalization,Hopefully discharge in next 24 to 48 hours Full code Heart healthy, low-sodium diet; will defer fluid restriction at this time VTE PPx: Heparin 7500u SQ q12h Admission and Anticipated Discharge Date Admission Date: November 21, 2023 Subjective Patient seen and examined, feels overall better, feels that the abdominal pain and swelling is also better. Review of Systems Review of Systems: All systems reviewed are negative, apart from the ones contained in the history. Physical Exam Physical Exam: The patient is awake, alert and oriented 3, Morbidly obese HEENT--PERRL, EOMI, mucous membranes and oropharynx mildly dry Neck--supple. No JVD. No bruits. Thyroid normal, trachea midline, no adenopathy. Heart--normal S1 and S2. No murmurs, rubs or gallops. Lungs--clear bilaterally, no respiratory distress, no accessory muscle use. Abdomen--normal bowel sounds and soft. Area of cellulitis around the pannus Extremities--no cyanosis or clubbing. No edema. Dermatologic--normal skin turgor, normal color, no abnormal lymph nodes, no rash. Neurologic--cranial nerves II through XII grossly intact. Rheumatologic--normal range of motion. Psychiatric--normal affect. Results & Data Results & Data Vital Signs (Past 12 Hours) Vital Signs Temp Pulse Resp BP BP Pulse Ox O2 Del Method 11/25/23 12:30 Room Air 11/25/23 11:31 98.4 F 63 19 121/68 95 Room Air 11/25/23 10:00 11/25/23 07:26 98.1 F 79 20 114/72 96 Room Air 11/25/23 03:15 97.7 F 70 18 106/65 97 Room Air, BiPAP O2 Del Method 11/25/23 12:30 11/25/23 11:31 11/25/23 10:00 Room Air 11/25/23 07:26 11/25/23 03:15 PG Care Time/CCT Total # of Minutes Spent Total Time Spent with Patient: Total time spent is greater than 50% in coordination of care (as documented) at patient's floor/unit and/or counseling patient: Coding Level of Care Code 70463 SUB INP/OBS CARE 2/35MIN Diagnoses Cellulitis of suprapubic region L03.319 VARINDER (acute kidney injury) N17.9 Diabetic foot ulcer E11.621; L97.509 Diabetes mellitus type 2 with neurological manifestations E11.49 CHF (congestive heart failure) I50.9 Heart failure chronicity: acute on chronic Heart failure type: unspecified Congenital kidney disease N28.9 Hypokalemia E87.6 Morbid obesity E66.01 Hypomagnesemia E83.42 Severe obstructive sleep apnea G47.33 Hx MRSA infection Z86.14 Abdominal pannus E65 Primary hypertension I10 Hypertension type: unspecified Time Spent (min) 35 (5) CHF (congestive heart failure) Heart failure chronicity: acute on chronic Heart failure type: unspecified Qualified Code(s): I50.9 - Heart failure, unspecified (13) Hypertension Hypertension type: unspecified Qualified Code(s): I10 - Essential (primary) hypertension
[2023-11-26 05:58] LABS: Hematocrit (blood only) 36.8 % (37.0-47.0); Hemoglobin 12.1 g/dl (12.0-16.0); Mean Corpuscular Hemoglobin 27.6 pg (25.0-34.0); Mean Corpuscular Hgb Conc 32.9 g/dL (32.0-36.0); Mean Corpuscular Volume 83.8 fL (80.0-100.0); Mean Platelet Volume 9.7 fL (9.4-12.4); Platelet Count 202 K/uL (130-400); RDW Coefficient of Variation 14.2 % (11.5-14.5); RDW Standard Deviation 43.6 fL (36.4-46.3); Red Blood Count 4.39 M/uL (4.20-5.40); White Blood Count 7.83 K/ul (4.8-10.8)
--- NOTE | 2023-11-26 11:32 | Discharge Summary ---
Date of Service November 26, 2023 Admission HPI Per Admitting Provider Trevor is a 63-year-old female with a PMH of congenital kidney disease, CVA, gout, CKD, HTN, dyslipidemia, severe ANDRZEJ, anxiety, depression, CHF, abdominal pannus, sepsis secondary to MRSA infection, and T2DM. She presented on 11/20 for worsening abdominal pain over the past several days. Patient reports she is up around 20 pounds over the past week. Recent discharge from [facility] on 11/04. The patient was started on metolazone on Saturday 11/18 in combination with Bumex, but she has not felt it has helped with her weight gain. She endorses swelling in her abdominal pannus. Her pain is generalized, and she characterizes it as a sharp, constant pain; rated 9/10 at present. She took Tylenol this morning, but this did not help. Pain is usually exacerbated when she lays flat. Not worse when she eats. She took all her regular morning medications today; no recent changes other than starting metolazone 2 days ago. She does watch her salt intake at home; no recent change in diet. She ambulates with a walker at [facility]. No supplemental oxygen at home. She reports good compliance with her CPAP at night. SOB is mostly with exertion; she denies orthopnea. The rash on her abdominal pannus is not itchy, but it does hurt. History of cellulitis. She has been applying powder to her pannus, but this does not help. Patient denies smoking, tobacco use, and recent alcohol use. ED course: Rocephin 2000 mg IV ROS: Patient endorses lightheadedness when walking, ZENG, HAYES, generalized abdominal pain across the pannus, rash on abdomen, nausea, and swelling in legs. Patient denies fever, chills, night-sweats, dizziness, changes in vision, chest pain, chest palpitations, chest pressure/tightness, SOB at rest, wheezing, cough, vomiting, diarrhea, changes in urinary/bowel habits, burning with urination, itchy abdomen or blood in the urine/stool. Principal Diagnosis Abdominal wall cellulitis Discharge Exam The patient is awake, alert and oriented 3, Morbidly obese HEENT--PERRL, EOMI, mucous membranes and oropharynx mildly dry Neck--supple. No JVD. No bruits. Thyroid normal, trachea midline, no adenopat hy. Heart--normal S1 and S2. No murmurs, rubs or gallops. Lungs--clear bilaterally, no respiratory distress, no accessory muscle use. Abdomen--normal bowel sounds and soft. Area of cellulitis around the pannus Extremities--no cyanosis or clubbing. No edema. Dermatologic--normal skin turgor, normal color, no abnormal lymph nodes, no rash. Neurologic--cranial nerves II through XII grossly intact. Rheumatologic--normal range of motion. Psychiatric--normal affect. Discharge Data Allergies Allergy/AdvReac Type Severity Reaction Status Date / Time Corticosteroids Allergy Intermediate RASH Verified 11/19/23 10:22 (Glucocorticoids) morphine Allergy Intermediate MOUTH Verified 11/19/23 10:22 SWELLS/FACE SWELLS Penicillins Allergy Intermediate RASH/HIVES Verified 11/19/23 10:22 prednisone Allergy Intermediate RED RASH Verified 11/19/23 10:22 adhesive Allergy Mild Skin rash Verified 11/19/23 10:22 localized zolpidem Allergy Unknown UNSURE Verified 11/19/23 10:22 pregabalin AdvReac Intermediate GOOFY Verified 11/19/23 10:22 Consultations 11/21/23 19:06 ED Decision to Admit Stat Ordered Studies 11/21/23 17:59 CT abd pelvis wo con Stat Hospital Course (1) Cellulitis of suprapubic region: Patient was admitted on account of Worsening abdominal pain over the past week Hx of cellulitis of abdominal pannus Hx of MRSA infection Elevated inflammatory markers Completed a course of IV daptomycin and cefepime Wound care consult Appreciated A lot of improvement in swelling and area of inflammation Will discharge on p.o. Bactrim double strength for 5 more days (2) VARINDER (acute kidney injury): Avoid all nephrotoxic agents Patient with a left sided absent kidney; congenital Hold losartan, Jardiance, Resume upon discharge (3) Diabetic foot ulcer: Chronic diabetic foot ulcer of the left foot Continue wound care here Outpatient follow-up with wound care and podiatry (4) Diabetes mellitus type 2 with neurological manifestations: Last A1c at 5.7% on 11/02/2023 Patient with controlled glucoses on most recent hospital admission not requiring insulin Will defer for now (5) CHF (congestive heart failure): Patient follows with the heart failure clinic Last echo on 08/24/2023 revealed LVEF at 65 to 70% Daily weights Strict I&O monitoring continue Bumex, spironolactone Discontinue metolazone (6) Congenital kidney disease: Left-sided absent kidney; congenital Avoid nephrotoxic agents (7) Hypokalemia: Due to diuretics Replace (8) Morbid obesity: Morbid obesity with BMI 48.7 (9) Hypomagnesemia: Replace (10) Severe obstructive sleep apnea: CPAP at bedtime (11) Hx MRSA infection: Left knee infection 09/2021 Daptomycin (as above) (12) Abdominal pannus: (13) Hypertension: Plan Disposition: Discharge home, outpatient follow-up with wound care Full code Heart healthy, low-sodium diet; will defer fluid restriction at this time VTE PPx: Heparin 7500u SQ q12h Total Time Total Time Spent Total Time Spent (In Minutes): 35 Discharge Plan Discharge Items Patient Disposition: Home - Self-Care Reason For Visit: ABDOMINAL PAIN Discharge Diagnosis: Abdominal wall cellulitis Activity: Resume your previous activity Non-emergency contact: Primary Care Provider Call non-emergency contact if: you have any medication questions Follow-up/Referrals: Awilda Eric CRNP [Primary Care Provider] - 12/14/23 1:30 pm (Kina Polk) Diet: Regular Ambulatory Orders: Basic Metabolic Panel (Routine) Timeframe: 1 Week Location: Determined by Patient Ordered By: Leonel Arias Attending Provider Instructions: Please continue to follow-up with wound care regarding your chronic foot ulcer also follow-up with your regular PCP. Pending Studies at Discharge: No Stand-Alone Forms: My [facility] [employer], Smoking Cessation Medications and DC Order Prescriptions: New sulfamethoxazole-trimethoprim [Bactrim DS] 800-160 mg tablet 1 tab PO DAILY 7 Days Qty: 7 0RF Continued cholecalciferol (vitamin D3) [Vitamin D3] 50 mcg (2,000 unit) capsule 2,000 unit PO TID Qty: 270 1RF acetaminophen 500 mg tablet 1,000 mg PO Q4H PRN (Reason: fever or pain) Qty: 90 0RF bupropion HCl 300 mg tablet extended release 24 hr 300 mg PO QAM Qty: 90 1RF pantoprazole 40 mg tablet,delayed release (DR/EC) 40 mg PO BID Qty: 180 1RF montelukast 10 mg tablet 10 mg PO QPM Qty: 90 1RF allopurinol 100 mg tablet 100 mg PO BID Qty: 180 1RF albuterol sulfate [Ventolin HFA] 90 mcg/actuation HFA aerosol inhaler 2 puff INHALATION Q4H PRN (Reason: Shortness Of Breath Or Wheezing) Qty: 18 3RF (DME) CPAP Supplies Misc See Rx Instructions .Route Qty: 1 0RF Rx Instructions: As directed (DME) CPAP Machine Misc See Rx Instructions .Route Qty: 1 0RF Rx Instructions: As directed 11cm water pressure potassium chloride [Klor-Con M20] 20 mEq tablet,ER particles/crystals 20 meq PO DAILY Qty: 90 3RF fluticasone propion-salmeterol [Advair Diskus] 250-50 mcg/dose blister with device 1 inh inhalation BID Qty: 1 11RF famotidine 20 mg tablet 20 mg PO HS Qty: 90 3RF aspirin 81 mg tablet,delayed release (DR/EC) 81 mg PO QAM duloxetine 60 mg capsule,delayed release(DR/EC) 60 mg PO BID albuterol sulfate 2.5 mg /3 mL (0.083 %) solution for nebulization 2.5 mg inhalation Q6H PRN (Reason: Shortness Of Breath) Qty: 90 1RF Rx Instructions: needed multivitamin Tablet 1 tab PO QAM Qty: 90 1RF gabapentin 400 mg capsule 400 mg PO 4XD hydroxyzine HCl 25 mg tablet 25 mg PO .qhs Qty: 30 11RF metolazone 5 mg tablet 5 mg PO DAILY PRN (Reason: Fluid Retention) Qty: 14 1RF Rx Instructions: Take 1 tablet by mouth 1 hour before taking your morning Bumex dose. Take until body weight and breathing are at baseline, then discontinue. cyanocobalamin (vitamin B-12) [Vitamin B-12] 1,000 mcg tablet 1,000 mcg PO QAM Tums 300 mg (750 mg) tablet,chewable 900 mg PO QAM diclofenac sodium [Voltaren Arthritis Pain] 1 % Gel 4 g EXT QID Qty: 1 0RF Rx Instructions: purchase [id number]; may use 4 grams on your lower back, either knee, either hip, back of neck. nystatin 100,000 unit/gram powder 1 applic topical TID PRN (Reason: yeast rash under breasts, abdominal skin folds) Qty: 30 0RF epinephrine 0.3 mg/0.3 mL auto-injector 0.3 mg IM .qdaily PRN (Reason: anaphylaxis) Qty: 2 0RF sucralfate 1 gram tablet 1 g PO AC PRN (Reason: heartburn/stomach upset) Qty: 30 0RF bumetanide 1 mg tablet 2 mg PO BID Qty: 360 3RF Rx Instructions: take every morning and every afternoon. Increase to 3 mg twice daily as needed for weight gains. spironolactone 50 mg tablet 25 mg PO BID Qty: 0 0RF doxycycline hyclate 100 mg Tablet 100 mg PO BID cetirizine [Zyrtec] 10 mg tablet 10 mg PO BID losartan 25 mg tablet 25 mg PO QAM buspirone 15 mg tablet 20 mg PO TID Jardiance 10 mg tablet 10 mg PO QAM Rx Instructions: for congestive heart failure Discharge Orders: Discharge Order (Routine); Ordered 11/26/23 Ordered By: Leonel Boyd Admission Data Admit Date/Time: 11/21/23 20:07 Attending Provider: Leonel Boyd Admit Provider: Fabian Garcia Primary Care Provider: Awilda Eric Other Providers: Fabian Garcia Coding Level of Care Code 96651 INP/OBS DISCH >30 MIN Diagnoses Cellulitis of suprapubic region L03.319 VARINDER (acute kidney injury) N17.9 Diabetic foot ulcer E11.621; L97.509 Diabetes mellitus type 2 with neurological manifestations E11.49 CHF (congestive heart failure) I50.9 Heart failure chronicity: acute on chronic Heart failure type: unspecified Congenital kidney disease N28.9 Hypokalemia E87.6 Morbid obesity E66.01 Hypomagnesemia E83.42 Severe obstructive sleep apnea G47.33 Hx MRSA infection Z86.14 Abdominal pannus E65 Primary hypertension I10 Hypertension type: unspecified Time Spent (min) 35
== END 2023-11-26 14:35 | disposition home or self-care (01) | DRG 603 ==
LOC: ED 17:24 → SUATTDRO 20:07 → EDINP 20:07 → 2N 20:50

== ENCOUNTER 2024-01-06 11:13 | Inpatient (IN) ==
--- NOTE | 2024-01-06 11:55 | Emergency Department Note ---
Impression & Plan Cellulitis, Failure of outpatient treatment, Obesity ED Provider Note NAME: CELIO ARGUELLES AGE: 63 SEX: F : 1960 ARRIVES VIA: Walk-In INFORMANT: [Patient] ED PROVIDER(S): [Will Crump MD] CHIEF COMPLAINT: Infection HISTORY OF PRESENT ILLNESS: The patient is a 63-year-old female who presents to the ER as directed by the wound center. The patient is on doxycycline twice a day chronically. This is to prevent infection across her pannus. The patient states that in the last week, she has developed erythema along the left side of the pannus. She saw the wound center and was placed on Keflex 2 days ago. The wound center saw her today, things were worse, she was referred to the ER. She has been hospitalized before for similar issues. Patient also has some wounds on the underside of her left foot. These are ongoing and at this point, chronic. They are not giving her difficulty at the present. There has been no fever, no cough or congestion, no respiratory complaints. She was told by the wound center that she likely needed IV antibiotic therapy. PMHx/PSHx/Social Hx: See Below PHYSICAL EXAM: GENERAL: Patient is in no acute distress. HEENT: No acute trauma, normocephalic atraumatic, mucous membranes moist, no nasal congestion. NECK: No stridor, no adenopathy, no meningismus, trachea is midline. LUNGS: Clear to auscultation bilaterally, no wheeze, no rhonchi, breath sounds equal. HEART: 2/6 systolic murmur, regular rate and rhythm. ABDOMEN: Soft, quite obese. The patient has a large pannus. The left aspect of the pannus that lies against her thigh is erythematous and warm. There is a bandage across the anterior aspect of the pannus as there has been some seepage of liquid secondary to all the edema. EXTREMITIES: No cyanosis, full range of motion of all the joints without pain or difficulty. Patient does have an ulcer to the lateral plantar aspect of her foot. This does not show any surrounding erythema. NEUROLOGIC: Oriented x 3, no acute motor or sensory deficits, no focal weakness. SKIN: No jaundice, no diaphoresis. DIFFERENTIAL DIAGNOSIS: Cellulitis, abscess, failed outpatient management, electrolyte imbalance, fluid overload, among others. EMERGENCY DEPARTMENT PROCEDURES: MEDICAL DECISION MAKING: There is no leukocytosis or concerning anemia. There is a normal platelet count. Potassium is slightly low but not in need of emergent correction. There was some renal insufficiency with a creatinine of 1.24, the patient carries a history of mild renal insufficiency. There was no concerning liver enzyme elevation. Urinalysis did not show infection. On exam, the patient had a cellulitis of her pannus. She was not toxic, she was not febrile. The patient was given IV daptomycin, she received IV cefepime. The patient is failing outpatient treatment for this cellulitis, she has had this issue previously. She is in need of a hospital stay and IV antibiotic therapy. I spoke with the patient and case management, the on-call hospitalist was consulted. Prior/Outside records/notes reviewed: Today's wound center notes describing her presentation and the need for an ED referral. Imaging/x-ray results per my interpretation: Chronic Medical/Social conditions affecting care: Obesity Care/Management discussed with: Case management, the on-call hospitalist. Level of care consideration(s): After review of the information above and other included data: --I believe the patient requires escalation of care to admission DISPOSITION: Admission Past Med/Surg History Problem List (Updated 01/06/24 @ 19:33 by Will Crump MD) Obesity (Acute) Failure of outpatient treatment (Acute) Cellulitis (Acute) Supraclavicular lymphadenopathy Acute on chronic heart failure with preserved ejection fraction Open wound of abdomen (Acute) Morbid obesity HAYES (dyspnea on exertion) (Acute) CKD (chronic kidney disease) stage 3, GFR 30-59 ml/min (Acute) Acute exacerbation of CHF (congestive heart failure) (Acute) Cellulitis (Acute) Cellulitis of suprapubic region Acute on chronic heart failure VARINDER (acute kidney injury) Osteoarthritis of hip Constipation Lymphoma Hip pain, right Failure of outpatient treatment (Acute) CRF (chronic renal failure) (Acute) Edema of both lower extremities (Acute) Fluid overload (Acute) Edema of abdominal wall (Acute) Ulcer of both feet Volume overload Hx MRSA infection 09/2021 s/p left knee infection > resolved > continues with doxycycline daily for prevention Lymphadenopathy of left cervical region Urticaria Chronic ulcer of left foot with fat layer exposed Diabetic foot ulcer (Acute) Diabetes mellitus type 2 with neurological manifestations Candidiasis of skin Solitary kidney, congenital Bilateral hip pain Low back pain Weakness (Acute) Lower extremity edema (Acute) CHF (congestive heart failure) (Acute) Abdominal pannus Fatty liver Dependent lymphedema Stage 3b chronic kidney disease Anemia reason for procedure. iron infusions recently. 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 Other ovarian cyst, left side Vitamin D deficiency Peripheral neuropathy Lumbar spinal stenosis 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- DISCOVERED WITH INCIDENTAL IMAGING Gout CKD (chronic kidney disease) stage 3, GFR 30-59 ml/min monitoring Chronic back pain Acid reflux Medical History Mast cell disease B-cell lymphoma Hx-TIA (transient ischemic attack) 2017 > ASA for prevention > no residual effects Hx of sepsis 09/2021 r/t left knee infection Hypertension Lumbar spinal stenosis Arthritis Allergic rhinitis Gout Other ovarian cyst, left side present, just monitoring Acid reflux Severe obstructive sleep apnea cpap Stage 3 chronic kidney disease follows with Dr. Wood Fatty liver CHF (congestive heart failure) follows with Ashlyn Griffin Solitary kidney, congenital Diabetes mellitus, type 2 Ulcer of foot one ulcer present to bottom of bilat feet > follows with wound clinic at [facility], improving per pt Chronic ulcer of right foot with fat layer exposed sees wound clinic > bilat feet at present History of COVID-19 09/2021 Iron deficiency anemia Venous stasis of both lower extremities MDD (major depressive disorder), recurrent episode, moderate Ambulatory dysfunction uses walker Depression with anxiety Degenerative joint disease, shoulder, right Lymphedema left leg and abdomen / chronic Asthma well controlled, rare res inh use Hyperlipidemia no meds Surgical History (Updated 01/03/24 @ 10:48 by Lily Novoa RN) Hx of biopsy (12/29/23) Left Neck Lymph Node Biopsy(Left) - Yohan Maldonado, DO, FACS History of insertion of central venous access port removed in 2022 History of revision of total replacement of left knee joint History of cardiac cath remote hx over 20 yrs ago, no stents History of colonoscopy History of esophagogastroduodenoscopy (EGD) History of bilateral knee replacement (10/16/22) H/O knee surgery (12/2021) L knee washout w/ polyexchange S/P tonsillectomy and adenoidectomy Status post total shoulder arthroplasty (10/17/18) right History of carpal tunnel release B/L H/O ventral hernia repair History of appendectomy History of cholecystectomy Family History Mother Diabetes Coronary heart disease Myocardial infarction S/P CABG x 3 Hypertension Gallbladder disease Sister Hodgkins lymphoma Brother Kidney disease Grandmother Breast cancer Aunt Ovarian cancer Father Peripheral vascular disease Daughter Diabetes Other Cancer No family history of adverse response to anesthesia Denies family history of Prostate cancer Colorectal cancer Social History Smoking Status: Former smoker Tobacco Type: Cigarettes Age Started Using Tobacco: 22; Age Quit Using Tobacco: 24; Second Hand Exposure: No; Do You Dip or Chew Tobacco: No; Hx Alcohol Use: No Hx Substance Use: No Preferred Language: Uzbek 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 Ability: Effective Visual Impairment: Limited Hearing Ability: Normal Grain Wafer Machine Operator Required: No Beliefs That Will Affect Care: None marital status: marital status details: ; lives with parents & 1 daughter Current Living Situation: Alone, Parent and Family Current Living Situation Comment: daughter and mom current occupational status: disabled other: worked in [employer] in [employer]; 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 Feels Safe at Home: Yes Childhood Exposure to Second-Hand Smoke: No Diet: regular Diet Comment: regular caffeine: No Dental Care, Regularly: No Physical Activity Frequency: Does not Exercise Seatbelt Use: always Sunscreen Use: Yes Assistive Devices: Denture - Upper, Glasses and Walker Allergies Allergies Allergy/AdvReac Type Severity Reaction Status Date / Time Corticosteroids Allergy Severe Anaphylaxis Unverified 01/06/24 13:56 (Glucocorticoids) dog dander Allergy Intermediate Rash Verified 01/06/24 09:31 morphine Allergy Intermediate mouth and Verified 01/06/24 09:31 face swells Penicillins Allergy Intermediate rash/hives Verified 01/06/24 09:31 adhesive Allergy Mild Skin rash Verified 01/06/24 09:31 localized zolpidem Allergy Unknown Unknown Verified 01/06/24 09:31 pregabalin AdvReac Intermediate "makes Verified 01/06/24 09:31 goofy" Home Meds Home Medications Medication Instructions Recorded Confirmed calcium carbonate (Tums) 900 mg PO QAM 03/03/22 01/06/24 cyanocobalamin (vitamin B-12) 1,000 mcg PO QAM 03/03/22 01/06/24 1,000 mcg tablet (Vitamin B-12) aspirin 81 mg tablet,delayed 81 mg PO QAM 06/25/23 01/06/24 release duloxetine 60 mg capsule,delayed 60 mg PO BID 06/25/23 01/06/24 release (Cymbalta) buspirone 15 mg tablet See Rx Instructions .Route .COMPLEX 10/20/23 01/06/24 cetirizine 10 mg tablet (Zyrtec) 10 mg PO BID 10/20/23 01/06/24 doxycycline hyclate 100 mg tablet 100 mg PO BID 10/20/23 01/06/24 losartan 25 mg tablet 25 mg PO QAM 10/20/23 01/06/24 hydroxyzine HCl 25 mg tablet 25 mg PO HS 12/24/23 01/06/24 potassium chloride 20 mEq 20 meq PO QAM 12/24/23 01/06/24 tablet,extended release(part/cryst) (Klor-Con M) bupropion HCl 300 mg 24 hr tablet, 300 mg PO QAM 12/29/23 01/06/24 extended release (Wellbutrin XL) famotidine 20 mg tablet (Pepcid) 20 mg PO HS 12/29/23 01/06/24 pantoprazole 40 mg tablet,delayed 40 mg PO BID 12/29/23 01/06/24 release (Protonix) sucralfate 1 gram tablet (Carafate) 1 g PO AC PRN heartburn/stomach 12/29/23 01/06/24 upset buspirone 5 mg tablet See Rx Instructions .Route .COMPLEX 01/06/24 01/06/24 epinephrine 0.3 mg/0.3 mL 0.3 mg IM UD PRN anaphylaxis 01/06/24 01/06/24 injection, auto-injector nystatin 100,000 unit/gram topical 1 applic topical BID PRN Rash 01/06/24 01/06/24 cream Previous Rx's Medication Instructions Recorded fluticasone 250 mcg-salmeterol 50 1 inh inhalation BID #1 inhaler 06/25/21 mcg/dose blistr powdr for inhalation (Advair Diskus) cholecalciferol (vitamin D3) 50 2,000 unit PO TID #270 caps 07/18/21 mcg (2,000 unit) capsule (Vitamin D3) acetaminophen 500 mg tablet 1,000 mg (2 x 500 mg) PO Q4H PRN 09/16/21 fever or pain #90 tabs albuterol sulfate 2.5 mg/3 mL 2.5 mg (3 mL) inhalation Q6H PRN 06/25/23 (0.083 %) solution for nebulization Shortness Of Breath #90 mL diclofenac sodium 1 % topical gel 4 g EXT QID #1 tube 08/30/23 (Voltaren Arthritis Pain) nystatin 100,000 unit/gram topical 1 applic topical TID PRN yeast 08/30/23 powder rash under breasts, abdominal skin folds #30 grams allopurinol 100 mg tablet 100 mg PO BID #180 tabs 09/21/23 CPAP Supplies #1 ea 09/28/23 CPAP Machine #1 ea 09/29/23 bumetanide 1 mg tablet 2 mg (2 x 1 mg) PO BID #360 tabs 11/05/23 spironolactone 50 mg tablet 25 mg (1/2 x 50 mg) PO BID #0 tabs 11/05/23 empagliflozin 10 mg tablet 10 mg PO QAM #90 tabs 12/02/23 (Jardiance) multivitamin 1 tab PO QAM #90 tabs 12/20/23 gabapentin 400 mg capsule 400 mg PO QID #360 caps 12/24/23 metoprolol succinate 50 mg 50 mg PO DAILY #90 tabs 12/27/23 tablet,extended release 24 hr tramadol 50 mg tablet 50 mg PO Q6H PRN pain, for initial 12/29/23 therapy, max 4tabs/day #5 tabs montelukast 10 mg tablet 10 mg PO QPM #90 tabs 01/03/24 (Singulair) albuterol sulfate 90 mcg/actuation 2 puff inhalation Q4H PRN 01/04/24 aerosol inhaler (Ventolin HFA) Shortness Of Breath Or Wheezing #18 grams cephalexin 500 mg capsule 500 mg PO TID 14 days #42 caps 01/04/24 Results & Data (ED) Vital Signs Vital Signs - 24 hr 01/06/24 11:26 01/06/24 12:57 Temperature 36.2 C L Temperature Source Skin Pulse Rate 71 Pulse Rate [Finger] 67 Respiratory Rate 16 18 Respiratory Effort / Characteristics Non-Labored Non-Labored Respiratory Depth Normal Normal Respiratory Pattern Regular Blood Pressure 123/47 L Blood Pressure [Right Arm] 119/69 Blood Pressure Mean 72 Blood Pressure Mean [Right Arm] 85 Pulse Oximetry 96 96 Oxygen Delivery Method Room Air Room Air Sepsis Recent Fever Within 48 Hours No Sepsis New/Unexplained Change in Mental Status No Sepsis Action Taken by Nursing No Action Required Home Medications Current Medication List: was personally reviewed by me Laboratory Data Attestation: I reviewed the patient's lab results. 01/06/24 11:32 01/06/24 11:56 Lab Results 01/06/24 01/06/24 01/06/24 Range/Units 11:32 11:51 11:56 WBC 10.24 (4.8-10.8) K/ul RBC 4.49 (4.20-5.40) M/uL Hgb 12.4 (12.0-16.0) g/dl Hct 38.4 (37.0-47.0) % MCV 85.5 (80.0-100.0) fL MCH 27.6 (25.0-34.0) pg MCHC 32.3 (32.0-36.0) g/dL RDW Std Deviation 47.7 H (36.4-46.3) fL RDW Coeff of Cleo 15.4 H (11.5-14.5) % Plt Count 315 (130-400) K/uL MPV 10.4 (9.4-12.4) fL Immature Gran % (Auto) 0.2 % Neut % (Auto) 71.4 % Lymph % (Auto) 19.4 % [place] % (Auto) 5.4 % Eos % (Auto) 3.4 % Baso % (Auto) 0.2 % Neut # (Auto) 7.31 H (1.40-6.50) K/uL Lymph # (Auto) 1.99 (1.20-3.40) K/uL [place] # (Auto) 0.55 (0.11-0.59) K/uL Eos # (Auto) 0.35 (0.00-0.50) K/uL Baso # (Auto) 0.02 (0.00-0.20) K/uL Immature Gran # (Auto) 0.02 (0.01-0.20) K/uL ESR 56 H (0-30) mm/hr Sodium 140 (136-145) mmol/L Potassium TNP 3.4 L Chloride 102 (98-107) mmol/L Carbon Dioxide 32 (21-32) mmol/L Anion Gap 6 (3-11) BUN 18 (6-23) mg/dl Creatinine 1.24 H (0.6-1.2) mg/dl Est Cr Clr Drug Dosing 77.8 ml/min Est GFR ( Amer) 54.3 ml/min Est GFR (Non-Af Amer) 46.8 ml/min BUN/Creatinine Ratio 14.5 (10-20) Glucose 98 (70-99(Fasting)) mg/dl Calcium 9.2 (8.6-10.3) mg/dl Magnesium 1.7 (1.7-2.4) mg/dl Total Bilirubin 0.6 (0.2-1.0) mg/dl AST TNP 20 ALT 18 (7-52) U/L Alkaline Phosphatase 78 (34-104) U/L C-Reactive Protein 1.99 H (0-0.5) mg/dl Total Protein 7.4 (6.0-8.3) gm/dl Albumin 3.8 (3.4-5.0) gm/dl Globulin 3.6 (2.5-4.0) gm/dl Albumin/Globulin Ratio 1.1 (0.9-2) Procalcitonin < 0.02 (0-0.5) ng/ml Urine Color Yellow Urine Appearance Clear (Clear) Urine pH 6.5 (4.5-7.5) Ur Specific [place] 1.008 (1.000-1.030) Urine Protein Negative (Negative) Urine Glucose (UA) 2+ H (Negative) Urine Ketones Negative (Negative) Urine Blood Negative (Negative) Urine Nitrite Negative (Negative) Urine Bilirubin Negative (Negative) Urine Urobilinogen Negative (Negative) Ur Leukocyte Esterase Negative (Negative) Administered Medications Buspirone HCl (Buspirone 5 Mg Tab) 5 mg PO TID [facility] Stop: 02/05/24 16:14 Last Admin: 01/06/24 17:19 Dose: 5 mg Documented By: MAURILIO Buspirone HCl (Buspirone 15 Mg Tab) 15 mg PO TID [facility] Stop: 02/05/24 16:14 Last Admin: 01/06/24 17:19 Dose: 15 mg Documented By: MAURILIO Diclofenac Sodium (Diclofenac Sod 1% Gel 100 Gm Tube) 4 gm EXT QID [facility]; Protocol Stop: 02/05/24 16:59 Last Admin: 01/06/24 17:23 Dose: Not Given Documented By: MAURILIO Gabapentin (Gabapentin 400 Mg Cap) 400 mg PO QID [facility] Stop: 02/05/24 16:59 Last Admin: 01/06/24 17:19 Dose: 400 mg Documented By: MAURILIO Heparin Sodium (Porcine) (Heparin Sod 5,000 Unit/0.5 Ml Vial) 7,500 units SQ Q8 [facility] Stop: 02/05/24 16:14 Last Admin: 01/06/24 17:19 Dose: 7,500 units Documented By: MAURILIO Tramadol HCl (Tramadol Hcl 50 Mg Tablet) 50 mg PO Q6H PRN PRN Reason: pain, for initial therapy, max Stop: 02/05/24 15:39 Last Admin: 01/06/24 19:27 Dose: 50 mg Documented By: MARK Vitamin D (Cholecalciferol 25 Mcg (1000 Units) Tab) 50 mcg PO TID [facility] Stop: 02/05/24 16:14 Last Admin: 01/06/24 17:19 Dose: 50 mcg Documented By: MAURILIO Discontinued Medications Cefepime HCl (Maxipime) 2,000 mg in 20 mls @ 5 mls/min IV NOW STA; Protocol Stop: 01/06/24 11:51 Last Admin: 01/06/24 12:00 Dose: 5 mls/min Documented By: ARCADIO Daptomycin 600 mg/ Syringe 12 mls @ 6 mls/min IV NOW ONE; Protocol Stop: 01/06/24 12:01 Last Admin: 01/06/24 12:54 Dose: 6 mls/min Documented By: ARCADIO Bumetanide 3 mg/ Syringe 12 mls @ 4 mls/min IV ONE ONE Stop: 01/06/24 14:02 Last Admin: 01/06/24 14:34 Dose: 4 mls/min Documented By: ARCADIO Potassium Chloride (Potassium Chloride Crtab 20 Meq Tabcr) 40 meq PO NOW STA Stop: 01/06/24 12:54 Last Admin: 01/06/24 14:34 Dose: 40 meq Documented By: ARCADIO Discharge Plan Visit Data Chief Complaint: Infection, Wound Stated Complaint: SIDE INFECTION, REF BY WOUND CLINIC ED Provider: Will Crump Discharge Problem: Cellulitis, Failure of outpatient treatment, Obesity Patient Disposition: Admitted As Inpatient Condition: Fair Discharge Instructions Interventions: ED Discharge Assessment Last Done: 01/06/24 15:41 Discharge Problem: Cellulitis Qualifiers: Site of cellulitis: trunk Site of cellulitis of trunk: abdominal wall Qualified Code(s): L03.311 - Cellulitis of abdominal wall Obesity Qualifiers: Obesity type: unspecified obesity type Obesity classification: unspecified obesity classification Serious obesity comorbidity presence: unspecified whether serious comorbidity present Qualified Code(s): E66.9 - Obesity, unspecified
[2024-01-06 12:00] LABS: Basophils # (auto) 0.02 K/uL (0.00-0.20); Basophils % (auto) 0.2 %; Eosinophils # (auto) 0.35 K/uL (0.00-0.50); Eosinophils % (auto) 3.4 %; Hematocrit (blood only) 38.4 % (37.0-47.0); Hemoglobin 12.4 g/dl (12.0-16.0); Immature Granulocytes # (auto) 0.02 K/uL (0.01-0.20); Immature Granulocytes % (auto) 0.2 %; Lymphocytes # (auto) 1.99 K/uL (1.20-3.40); Lymphocytes % (auto) 19.4 %; Mean Corpuscular Hemoglobin 27.6 pg (25.0-34.0); Mean Corpuscular Hgb Conc 32.3 g/dL (32.0-36.0); Mean Corpuscular Volume 85.5 fL (80.0-100.0); Mean Platelet Volume 10.4 fL (9.4-12.4); Monocytes # (auto) 0.55 K/uL (0.11-0.59); Monocytes % (auto) 5.4 %; Neutrophils # (auto) 7.31 K/uL (1.40-6.50); Neutrophils % (auto) 71.4 %; Platelet Count 315 K/uL (130-400); RDW Coefficient of Variation 15.4 % (11.5-14.5); RDW Standard Deviation 47.7 fL (36.4-46.3); Red Blood Count 4.49 M/uL (4.20-5.40); White Blood Count 10.24 K/ul (4.8-10.8)
[2024-01-06] MEDS: CEFEPIME 2,000 MG/20 ML VIAL IV STA (12:00)
[2024-01-06] MEDS ORDERED: Patient's HEIGHT &/or WEIGHT Needed ONE (12:00)
[2024-01-06 12:18] LABS: Alanine Aminotransferase 18 U/L (7-52); Albumin Globulin Ratio 1.1 (0.9-2); Albumin Level 3.8 gm/dl (3.4-5.0); Alkaline Phosphatase 78 U/L (34-104); Anion Gap 6 (3-11); BUN Creatinine Ratio 14.5 (10-20); Bilirubin,Total 0.6 mg/dl (0.2-1.0); Blood Urea Nitrogen 18 mg/dl (6-23); Calcium 9.2 mg/dl (8.6-10.3); Carbon Dioxide 32 mmol/L (21-32); Chloride 102 mmol/L (98-107); Creatinine Clr Calc Pharmacy 77.8 ml/min; Est GFR (African American) 54.3 ml/min; Est GFR (Non-African American) 46.8 ml/min; Globulin 3.6 gm/dl (2.5-4.0); Glucose 98 mg/dl (70-99(Fasting)); Sodium 140 mmol/L (136-145); Total Protein 7.4 gm/dl (6.0-8.3)
[2024-01-06 12:35] LABS: Appearance Urine Clear (Clear); Bilirubin Urine Negative (Negative); Blood Urine Negative (Negative); Color Urine Yellow; Glucose Urine UA 2+ (Negative); Ketones Urine Negative (Negative); Leukocyte Esterase Urine Negative (Negative); Nitrite Urine Negative (Negative); Protein Urine Negative (Negative); Specific Gravity Urine 1.008 (1.000-1.030); Urobilinogen Urine Negative (Negative); pH Urine 6.5 (4.5-7.5)
[2024-01-06 12:43] LABS: Potassium 3.4 mmol/L (3.5-5.1)
--- NOTE | 2024-01-06 12:52 | History & Physical Report ---
Date of Service January 06, 2024 Assessment & Plan (1) Cellulitis: Plan: Chronic doxycycline for MRSA prophylaxis after prior knee infection Start cefepime / daptomycin - previously responded well to this (2) Acute on chronic heart failure with preserved ejection fraction: Plan: Mainly dependant edema of pannus however weight overall increased (per patient but chart shows she is close to baseline) and historically this has responded to diuretics to a point Will start with Bumex 3mg IV BID as we have done previously along with her usual spironolactone Strict I&Os, phillips catheter inserted on admission for accurate output and help with wound healing Daily standing weights (3) Supraclavicular lymphadenopathy: Plan: Biopsy from 12/29 pending at this time Plan ANDRZEJ - CPAP HS Anxiety - continue her usual buspirone and bupropion Pruritus - continue her usual anti-histamines VTE prophylaxis - heparin 7500 units q.8 hourly Diet - heart healthy, low-sodium, type 2 diabetes Disposition - admit to med telemetry In my clinical judgment this beneficiary meets acute admission criteria, established by [facility] that includes being hospitalized through two midnights. Admission and Anticipated Discharge Date Admission Date: January 06, 2024 History of Present Illness Chief Complaint: Pannus infection Primary Care Provider: CARRIE Monaco Trevor Tristna is a 63 year old female with recurrent panniculitis infections who presents to the ER with weight gain, erythema of pannus. She reports slowly increasing weight of 40lb since her last discharge in November. Over the last week her pannus has become much more painful and erythematous with increased discharge. She reports a tearing sensation over time she moves it. No chest pain or shortness of breath. Abdominal pain only over erythematous pannus area. No worsening leg swelling. No fever or chills. She reports this is similar to her prior hospitalizations with cellulitis. She takes doxycycline chronically for MRSA prophylaxis and has been compliant with this. She was seen by diabetic foot care clinic today and sent ot the ER due to concerns for worsening cellulitis of her pannus despite cephalexin added to her antibiotics started 2 days ago. Allergies Allergy/AdvReac Type Severity Reaction Status Date / Time Corticosteroids Allergy Severe Anaphylaxis Unverified 01/06/24 13:56 (Glucocorticoids) dog dander Allergy Intermediate Rash Verified 01/06/24 09:31 morphine Allergy Intermediate mouth and Verified 01/06/24 09:31 face swells Penicillins Allergy Intermediate rash/hives Verified 01/06/24 09:31 adhesive Allergy Mild Skin rash Verified 01/06/24 09:31 localized zolpidem Allergy Unknown Unknown Verified 01/06/24 09:31 pregabalin AdvReac Intermediate "makes Verified 01/06/24 09:31 goofy" Home Medications Medication Instructions Recorded Confirmed Type fluticasone 250 mcg-salmeterol 50 1 inh inhalation BID #1 inhaler 06/25/21 01/06/24 Rx mcg/dose blistr powdr for inhalation (Advair Diskus) cholecalciferol (vitamin D3) 50 2,000 unit PO TID #270 caps 07/18/21 01/06/24 Rx mcg (2,000 unit) capsule (Vitamin D3) acetaminophen 500 mg tablet 1,000 mg (2 x 500 mg) PO Q4H PRN 09/16/21 01/06/24 Rx fever or pain #90 tabs calcium carbonate (Tums) 900 mg PO QAM 03/03/22 01/06/24 History cyanocobalamin (vitamin B-12) 1,000 mcg PO QAM 03/03/22 01/06/24 History 1,000 mcg tablet (Vitamin B-12) albuterol sulfate 2.5 mg/3 mL 2.5 mg (3 mL) inhalation Q6H PRN 06/25/23 01/06/24 Rx (0.083 %) solution for nebulization Shortness Of Breath #90 mL aspirin 81 mg tablet,delayed 81 mg PO QAM 06/25/23 01/06/24 History release duloxetine 60 mg capsule,delayed 60 mg PO BID 06/25/23 01/06/24 History release (Cymbalta) diclofenac sodium 1 % topical gel 4 g EXT QID #1 tube 08/30/23 01/06/24 Rx (Voltaren Arthritis Pain) nystatin 100,000 unit/gram topical 1 applic topical TID PRN yeast 08/30/23 01/06/24 Rx powder rash under breasts, abdominal skin folds #30 grams allopurinol 100 mg tablet 100 mg PO BID #180 tabs 09/21/23 01/06/24 Rx CPAP Supplies #1 ea 09/28/23 01/06/24 Rx CPAP Machine #1 ea 09/29/23 01/06/24 Rx buspirone 15 mg tablet See Rx Instructions .Route .COMPLEX 10/20/23 01/06/24 History cetirizine 10 mg tablet (Zyrtec) 10 mg PO BID 10/20/23 01/06/24 History doxycycline hyclate 100 mg tablet 100 mg PO BID 10/20/23 01/06/24 History losartan 25 mg tablet 25 mg PO QAM 10/20/23 01/06/24 History bumetanide 1 mg tablet 2 mg (2 x 1 mg) PO BID #360 tabs 11/05/23 01/06/24 Rx spironolactone 50 mg tablet 25 mg (1/2 x 50 mg) PO BID #0 tabs 11/05/23 01/06/24 Rx empagliflozin 10 mg tablet 10 mg PO QAM #90 tabs 12/02/23 01/06/24 Rx (Jardiance) multivitamin 1 tab PO QAM #90 tabs 12/20/23 01/06/24 Rx gabapentin 400 mg capsule 400 mg PO QID #360 caps 12/24/23 01/06/24 Rx hydroxyzine HCl 25 mg tablet 25 mg PO HS 12/24/23 01/06/24 History potassium chloride 20 mEq 20 meq PO QAM 12/24/23 01/06/24 History tablet,extended release(part/cryst) (Klor-Con M) metoprolol succinate 50 mg 50 mg PO DAILY #90 tabs 12/27/23 01/06/24 Rx tablet,extended release 24 hr bupropion HCl 300 mg 24 hr tablet, 300 mg PO QAM 12/29/23 01/06/24 History extended release (Wellbutrin XL) famotidine 20 mg tablet (Pepcid) 20 mg PO HS 12/29/23 01/06/24 History pantoprazole 40 mg tablet,delayed 40 mg PO BID 12/29/23 01/06/24 History release (Protonix) sucralfate 1 gram tablet (Carafate) 1 g PO AC PRN heartburn/stomach 12/29/23 01/06/24 History upset tramadol 50 mg tablet 50 mg PO Q6H PRN pain, for initial 12/29/23 01/06/24 Rx therapy, max 4tabs/day #5 tabs montelukast 10 mg tablet 10 mg PO QPM #90 tabs 01/03/24 01/06/24 Rx (Singulair) albuterol sulfate 90 mcg/actuation 2 puff inhalation Q4H PRN 01/04/24 01/06/24 Rx aerosol inhaler (Ventolin HFA) Shortness Of Breath Or Wheezing #18 grams cephalexin 500 mg capsule 500 mg PO TID 14 days #42 caps 01/04/24 01/06/24 Rx buspirone 5 mg tablet See Rx Instructions .Route .COMPLEX 01/06/24 01/06/24 History epinephrine 0.3 mg/0.3 mL 0.3 mg IM UD PRN anaphylaxis 01/06/24 01/06/24 History injection, auto-injector nystatin 100,000 unit/gram topical 1 applic topical BID PRN Rash 01/06/24 01/06/24 History cream Past Med/Surg History Problem List (Updated 01/06/24 @ 19:33 by Will Crump MD) Obesity (Acute) Failure of outpatient treatment (Acute) Cellulitis (Acute) Supraclavicular lymphadenopathy Acute on chronic heart failure with preserved ejection fraction Open wound of abdomen (Acute) Morbid obesity HAYES (dyspnea on exertion) (Acute) CKD (chronic kidney disease) stage 3, GFR 30-59 ml/min (Acute) Acute exacerbation of CHF (congestive heart failure) (Acute) Cellulitis (Acute) Cellulitis of suprapubic region Acute on chronic heart failure VARINDER (acute kidney injury) Osteoarthritis of hip Constipation Lymphoma Hip pain, right Failure of outpatient treatment (Acute) CRF (chronic renal failure) (Acute) Edema of both lower extremities (Acute) Fluid overload (Acute) Edema of abdominal wall (Acute) Ulcer of both feet Volume overload Hx MRSA infection 09/2021 s/p left knee infection > resolved > continues with doxycycline daily for prevention Lymphadenopathy of left cervical region Urticaria Chronic ulcer of left foot with fat layer exposed Diabetic foot ulcer (Acute) Diabetes mellitus type 2 with neurological manifestations Candidiasis of skin Solitary kidney, congenital Bilateral hip pain Low back pain Weakness (Acute) Lower extremity edema (Acute) CHF (congestive heart failure) (Acute) Abdominal pannus Fatty liver Dependent lymphedema Stage 3b chronic kidney disease Anemia reason for procedure. iron infusions recently. 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 Other ovarian cyst, left side Vitamin D deficiency Peripheral neuropathy Lumbar spinal stenosis 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- DISCOVERED WITH INCIDENTAL IMAGING Gout CKD (chronic kidney disease) stage 3, GFR 30-59 ml/min monitoring Chronic back pain Acid reflux Medical History Mast cell disease B-cell lymphoma Hx-TIA (transient ischemic attack) 2017 > ASA for prevention > no residual effects Hx of sepsis 09/2021 r/t left knee infection Hypertension Lumbar spinal stenosis Arthritis Allergic rhinitis Gout Other ovarian cyst, left side present, just monitoring Acid reflux Severe obstructive sleep apnea cpap Stage 3 chronic kidney disease follows with Dr. Wood Fatty liver CHF (congestive heart failure) follows with Ashlyn Griffin Solitary kidney, congenital Diabetes mellitus, type 2 Ulcer of foot one ulcer present to bottom of bilat feet > follows with wound clinic at [facility], improving per pt Chronic ulcer of right foot with fat layer exposed sees wound clinic > bilat feet at present History of COVID-19 09/2021 Iron deficiency anemia Venous stasis of both lower extremities MDD (major depressive disorder), recurrent episode, moderate Ambulatory dysfunction uses walker Depression with anxiety Degenerative joint disease, shoulder, right Lymphedema left leg and abdomen / chronic Asthma well controlled, rare res inh use Hyperlipidemia no meds Surgical History (Updated 01/03/24 @ 10:48 by Lily Novoa RN) Hx of biopsy (12/29/23) Left Neck Lymph Node Biopsy(Left) - Yohan Maldonado, DO, FACS History of insertion of central venous access port removed in 2022 History of revision of total replacement of left knee joint History of cardiac cath remote hx over 20 yrs ago, no stents History of colonoscopy History of esophagogastroduodenoscopy (EGD) History of bilateral knee replacement (10/16/22) H/O knee surgery (12/2021) L knee washout w/ polyexchange S/P tonsillectomy and adenoidectomy Status post total shoulder arthroplasty (10/17/18) right History of carpal tunnel release B/L H/O ventral hernia repair History of appendectomy History of cholecystectomy Family History Mother Diabetes Coronary heart disease Myocardial infarction S/P CABG x 3 Hypertension Gallbladder disease Sister Hodgkins lymphoma Brother Kidney disease Grandmother Breast cancer Aunt Ovarian cancer Father Peripheral vascular disease Daughter Diabetes Other Cancer No family history of adverse response to anesthesia Denies family history of Prostate cancer Colorectal cancer Social History Smoking Status: Never smoker Tobacco Type: Cigarettes Age Started Using Tobacco: 22; Age Quit Using Tobacco: 24; Second Hand Exposure: No; Do You Dip or Chew Tobacco: No; Hx Alcohol Use: No Hx Substance Use: No Preferred Language: Iraqi 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 Ability: Effective Visual Impairment: Limited Hearing Ability: Normal Drop Forger Required: No Beliefs That Will Affect Care: None marital status: marital status details: ; lives with parents & 1 daughter Current Living Situation: Parent and Family Current Living Situation Comment: Lives with mother and daughter current occupational status: disabled other: worked in [employer] in [place] 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 Feels Safe at Home: Yes Safety Concerns: Feels Safe At This Time Childhood Exposure to Second-Hand Smoke: No Diet: regular Diet Comment: regular caffeine: No Dental Care, Regularly: No Physical Activity Frequency: Does not Exercise Seatbelt Use: always Sunscreen Use: Yes Assistive Devices: CPAP, Denture - Upper and Walker Review of Systems 2 Review of Systems: All systems reviewed & are unremarkable except as noted in HPI & below Physical Exam 2 Constitutional: well developed; + not well nourished and no acute distress Respiratory: normal respiratory effort, lungs clear to auscultation Cardiovascular: RRR, no murmur, no edema Gastrointestinal (Abdomen): Inspection/Auscultation: + abdomen abnormal to inspection (see pictures below) Percussion/Palpation: + abdomen tender (over erythematous areas) Skin: Psychiatric: A+Ox3, euthymic affect Results & Data Results & Data Vital Signs (Past 12 Hours) Vital Signs Temp Pulse Resp BP Pulse Ox O2 Del Method 01/06/24 11:26 36.2 C L 71 16 123/47 L 96 Room Air Laboratory Results Abnormal lab results 01/06/24 01/06/24 01/06/24 Range/Units 11:32 11:51 11:56 RDW Std Deviation 47.7 H (36.4-46.3) fL RDW Coeff of Cleo 15.4 H (11.5-14.5) % Neut # (Auto) 7.31 H (1.40-6.50) K/uL Potassium 3.4 L (3.5-5.1) mmol/L Creatinine 1.24 H (0.6-1.2) mg/dl Urine Glucose (UA) 2+ H (Negative) Diagnostic Findings None Medications Administered ER Medications Given: Cefepime 2g IV Daptomycin 600mg IV Code Status & VTE Plan Code Status Full VTE Prophylaxis Plan VTE Prophylaxis will be ordered: Yes PG Care Time/CCT Total # of Minutes Spent Total Time Spent with Patient: Total time spent is greater than 50% in coordination of care (as documented) at patient's floor/unit and/or counseling patient: Coding Level of Care Code 08179 INT INP/OBS CARE 3/75MIN Diagnoses Cellulitis L03.311 Site of cellulitis: trunk Site of cellulitis of trunk: abdominal wall Acute on chronic heart failure with preserved ejection fraction I50.33 Supraclavicular lymphadenopathy R59.0 (1) Cellulitis Site of cellulitis: trunk Site of cellulitis of trunk: abdominal wall Qualified Code(s): L03.311 - Cellulitis of abdominal wall
[2024-01-06] MEDS: DAPTOmycin 600 MG in SYRINGE 0 ML IV ONE (12:54)
[2024-01-06 13:32] LABS: Magnesium 1.7 mg/dl (1.7-2.4)
[2024-01-06 13:37] LABS: C Reactive Protein 1.99 mg/dl (0-0.5)
[2024-01-06] MEDS: BUMETANIDE 3 MG in SYRINGE 0 ML IV ONE (14:34)
[2024-01-06] MEDS: POTASSIUM CHLORIDE CRTAB 20 MEQ TABCR PO STA (14:34)
[2024-01-06] MEDS ORDERED: SUCRALFATE 1 GM TAB PO PRN (15:40)
[2024-01-06] MEDS: HEPARIN SOD 5,000 UNIT/0.5 ML VIAL SQ SCH (17:19)
[2024-01-06] MEDS: GABAPENTIN 400 MG CAP PO SCH (17:19)
[2024-01-06] MEDS: busPIRone 5 MG TAB PO SCH (17:19)
[2024-01-06] MEDS: CHOLECALCIFEROL 25 MCG (1000 UNITS) TAB PO SCH (17:19)
[2024-01-06] MEDS: busPIRone 15 MG TAB PO SCH (17:19)
[2024-01-06] MEDS: DICLOFENAC SOD 1% GEL 100 GM TUBE EXT SCH (17:23)
[2024-01-06] MEDS: traMADol HCL 50 MG TABLET PO PRN (19:27)
[2024-01-06] MEDS: CEFEPIME 2,000 MG in SYRINGE 0 ML IV SCH (20:02)
[2024-01-06] MEDS: SPIRONOLACTONE 25 MG TAB PO SCH (20:02)
[2024-01-06] MEDS: MONTELUKAST SODIUM 10 MG TABLET PO SCH (20:03)
[2024-01-06] MEDS: CETIRIZINE HCL 10 MG TABLET PO SCH (20:03)
[2024-01-06] MEDS: allopurinoL 100 MG TAB PO SCH (20:03)
[2024-01-06] MEDS: FAMOTIDINE 20 MG TAB PO SCH (20:03)
[2024-01-06] MEDS: hydrOXYzine HCl 25 MG TAB PO SCH (20:03)
[2024-01-06] MEDS: PANTOprazole 40 MG TAB PO SCH (20:03)
[2024-01-06] MEDS: DULoxetine HCL 60 MG CAP PO SCH (20:03)
[2024-01-06] MEDS: BUMETANIDE 3 MG in SYRINGE 0 ML IV SCH (20:13)
[2024-01-07 08:41] LABS: Basophils # (auto) 0.03 K/uL (0.00-0.20); Basophils % (auto) 0.3 %; Eosinophils # (auto) 0.28 K/uL (0.00-0.50); Eosinophils % (auto) 3.1 %; Hematocrit (blood only) 35.3 % (37.0-47.0); Hemoglobin 11.2 g/dl (12.0-16.0); Immature Granulocytes # (auto) 0.02 K/uL (0.01-0.20); Immature Granulocytes % (auto) 0.2 %; Lymphocytes # (auto) 2.21 K/uL (1.20-3.40); Lymphocytes % (auto) 24.6 %; Mean Corpuscular Hemoglobin 27.1 pg (25.0-34.0); Mean Corpuscular Hgb Conc 31.7 g/dL (32.0-36.0); Mean Corpuscular Volume 85.3 fL (80.0-100.0); Mean Platelet Volume 10.3 fL (9.4-12.4); Monocytes # (auto) 0.56 K/uL (0.11-0.59); Monocytes % (auto) 6.2 %; Neutrophils # (auto) 5.89 K/uL (1.40-6.50); Neutrophils % (auto) 65.6 %; Platelet Count 249 K/uL (130-400); RDW Coefficient of Variation 15.1 % (11.5-14.5); RDW Standard Deviation 46.5 fL (36.4-46.3); Red Blood Count 4.14 M/uL (4.20-5.40); White Blood Count 8.99 K/ul (4.8-10.8)
[2024-01-07] MEDS: CYANOCOBALAMIN (B-12) 500 MCG TABLET PO SCH (09:07)
[2024-01-07] MEDS: EMPAGLIFLOZIN 10 MG TAB PO SCH (09:07)
[2024-01-07] MEDS: MULTIVITAMIN TAB PO SCH (09:08)
[2024-01-07] MEDS: ASPIRIN 81 MG ECTAB PO SCH (09:08)
[2024-01-07] MEDS: POTASSIUM CHLORIDE CRTAB 20 MEQ TABCR PO SCH (09:08)
[2024-01-07] MEDS: LOSARTAN POTASSIUM 25 MG TAB PO SCH (09:08)
[2024-01-07] MEDS: METOPROLOL SUCC 50MG EXT REL TAB PO SCH (09:08)
[2024-01-07] MEDS: FLUTICASONE/VILANTEROL 200/25MCG 14 PUFFS/INHALER INH SCH (09:09)
[2024-01-07 09:20] LABS: BUN Creatinine Ratio 13.2 (10-20); Calcium 8.3 mg/dl (8.6-10.3); Creatinine Clr Calc Pharmacy 79.7 ml/min; Est GFR (African American) 55.9 ml/min; Est GFR (Non-African American) 48.3 ml/min; Potassium 3.5 mmol/L (3.5-5.1)
[2024-01-07] MEDS: buPROPion XL 300 MG TABCR PO SCH (11:19)
--- NOTE | 2024-01-07 12:41 | Hospitalist Progress Note ---
Date of Service January 07, 2024 Assessment & Plan (1) Cellulitis: Plan: Chronic doxycycline for MRSA prophylaxis after prior knee infection Continue cefepime / daptomycin - previously responded well to this Improved today clinically (2) Acute on chronic heart failure with preserved ejection fraction: Plan: Mainly dependant edema of pannus however weight overall increased (per patient but chart shows she is close to baseline) and historically this has responded to diuretics to a point Continue Bumex 3mg IV BID as we have done previously along with her usual spironolactone Strict I&Os, phillips catheter inserted on admission for accurate output and help with wound healing Daily standing weights (3) Supraclavicular lymphadenopathy: Plan: Biopsy from 12/29 pending at this time Plan ANDRZEJ - CPAP HS Anxiety - continue her usual buspirone and bupropion Pruritus - continue her usual anti-histamines VTE prophylaxis - heparin 7500 units q.8 hourly Diet - heart healthy, low-sodium, type 2 diabetes Admission and Anticipated Discharge Date Admission Date: January 06, 2024 Subjective Patient says she feels better. Her belly does not feel as tight anymore. Review of Systems Review of Systems: All systems reviewed & are unremarkable except as noted in Subjective Physical Exam Physical Exam: General: Awake, conversant. Morbidly obese Heart: S1, S2/regular rate and rhythm, no murmur rubs or gallops Lungs: Clear to auscultation bilaterally. Normal effort Abdomen: Soft/nondistended. Cellulitis improving. No hepatosplenomegaly Extremities: No clubbing/cyanosis. No edema Behavior: Appropriate, cooperative Results & Data Results & Data Vital Signs (Past 12 Hours) Vital Signs Temp Pulse Pulse Resp BP BP Pulse Ox 01/07/24 11:37 36.6 C 64 18 110/66 94 01/07/24 07:39 36.5 C 92 H 18 121/58 L 97 01/07/24 07:30 70 01/07/24 02:54 36.4 C L 69 18 108/66 94 O2 Del Method 01/07/24 11:37 Room Air 01/07/24 07:39 Room Air 01/07/24 07:30 01/07/24 02:54 Room Air Laboratory Results Abnormal lab results 01/06/24 01/07/24 Range/Units 11:56 07:55 RBC 4.14 L (4.20-5.40) M/uL Hgb 11.2 L (12.0-16.0) g/dl Hct 35.3 L (37.0-47.0) % MCHC 31.7 L (32.0-36.0) g/dL RDW Std Deviation 46.5 H (36.4-46.3) fL RDW Coeff of Cleo 15.1 H (11.5-14.5) % ESR 56 H (0-30) mm/hr Carbon Dioxide 36 H (21-32) mmol/L Creatinine 1.21 H (0.6-1.2) mg/dl Calcium 8.3 L (8.6-10.3) mg/dl C-Reactive Protein 1.99 H (0-0.5) mg/dl PG Care Time/CCT Total # of Minutes Spent Total Time Spent with Patient: Total time spent is greater than 50% in coordination of care (as documented) at patient's floor/unit and/or counseling patient: Coding Level of Care Code 86602 SUB INP/OBS CARE MIN Diagnoses Cellulitis L03.311 Site of cellulitis: trunk Site of cellulitis of trunk: abdominal wall Acute on chronic heart failure with preserved ejection fraction I50.33 Supraclavicular lymphadenopathy R59.0 (1) Cellulitis Site of cellulitis: trunk Site of cellulitis of trunk: abdominal wall Qualified Code(s): L03.311 - Cellulitis of abdominal wall
[2024-01-07] MEDS: DAPTOmycin 425 MG in SYRINGE 0 ML IV SCH (13:53)
[2024-01-07] MEDS: NYSTATIN POWDER 15GM BTL EXT PRN (20:56)
--- NOTE | 2024-01-08 12:33 | Hospitalist Progress Note ---
Date of Service January 08, 2024 Assessment & Plan (1) Cellulitis: Plan: cellulitis of abd wall, with panniculitis Admitted on account of worsening panniculitis Chronic doxycycline for MRSA prophylaxis after prior knee infection Continue cefepime / daptomycin - previously responded well to this Improved today clinically Will continue diuresis, which helps reduce the size of the swelling (2) Acute on chronic heart failure with preserved ejection fraction: Plan: Mainly dependant edema of pannus however weight overall increased (per patient but chart shows she is close to baseline) and historically this has responded to diuretics to a point Continue Bumex 3mg IV BID as we have done previously along with her usual spironolactone Strict I&Os, phillips catheter inserted on admission for accurate output and help with wound healing (3) Supraclavicular lymphadenopathy: Plan: Biopsy from 12/29 pending at this time Plan ANDRZEJ - CPAP HS Anxiety - continue her usual buspirone and bupropion Pruritus - continue her usual anti-histamines VTE prophylaxis - heparin 7500 units q.8 hourly Diet - heart healthy, low-sodium, type 2 diabetes Admission and Anticipated Discharge Date Admission Date: January 06, 2024 Subjective Patient seen and examined says she feels a lot, her belly is no longer swollen Review of Systems Review of Systems: All systems reviewed are negative, apart from the ones contained in the history. Physical Exam Physical Exam: The patient is awake, alert and oriented 3, well developed and well nourished, normocephalic and atraumatic, lying in bed and in no acute distress. HEENT--PERRL, EOMI, mucous membranes and oropharynx mildly dry Neck--supple. No JVD. No bruits. Thyroid normal, trachea midline, no adenopathy. Heart--normal S1 and S2. No murmurs, rubs or gallops. Lungs--clear bilaterally, no respiratory distress, no accessory muscle use. Abdomen--panniculitis Extremities--no cyanosis or clubbing. No edema. Dermatologic--normal skin turgor, normal color, no abnormal lymph nodes, no rash. Neurologic--cranial nerves II through XII grossly intact. Rheumatologic--normal range of motion. Psychiatric--normal affect. Results & Data Results & Data Vital Signs (Past 12 Hours) Vital Signs Temp Pulse Resp BP BP Pulse Ox O2 Del Method 01/08/24 10:49 Room Air 01/08/24 07:49 97.9 F 79 18 112/71 93 Room Air 01/08/24 02:55 65 18 93/57 L 95 Room Air, CPAP PG Care Time/CCT Total # of Minutes Spent Total Time Spent with Patient: Total time spent is greater than 50% in coordination of care (as documented) at patient's floor/unit and/or counseling patient: Coding Level of Care Code 31921 SUB INP/OBS CARE 2/35MIN Diagnoses Cellulitis L03.311 Site of cellulitis: trunk Site of cellulitis of trunk: abdominal wall Acute on chronic heart failure with preserved ejection fraction I50.33 Supraclavicular lymphadenopathy R59.0 Time Spent (min) 35 (1) Cellulitis Site of cellulitis: trunk Site of cellulitis of trunk: abdominal wall Qualified Code(s): L03.311 - Cellulitis of abdominal wall
[2024-01-09 08:39] LABS: Creatinine Clr Calc Pharmacy 69.7 ml/min; Est GFR (African American) 47.7 ml/min; Est GFR (Non-African American) 41.2 ml/min; Potassium 3.9 mmol/L (3.5-5.1)
--- NOTE | 2024-01-09 13:20 | Hospitalist Progress Note ---
Date of Service January 09, 2024 Assessment & Plan (1) Cellulitis: Plan: cellulitis of abd wall, with panniculitis Admitted on account of worsening panniculitis Chronic doxycycline for MRSA prophylaxis after prior knee infection Continue cefepime / daptomycin - previously responded well to this Improved today clinically Will continue diuresis, which helps reduce the size of the swelling (2) Acute on chronic heart failure with preserved ejection fraction: Plan: Mainly dependant edema of pannus however weight overall increased (per patient but chart shows she is close to baseline) and historically this has responded to diuretics to a point Reduce Bumex to 2mg BID and hold spironolactone and Losartan on account of low BP Strict I&Os, phillips catheter inserted on admission for accurate output and help with wound healing (3) Supraclavicular lymphadenopathy: Plan: Biopsy from 12/29 pending at this time Plan ANDRZEJ - CPAP HS Anxiety - continue her usual buspirone and bupropion Pruritus - continue her usual anti-histamines VTE prophylaxis - heparin 7500 units q.8 hourly Diet - heart healthy, low-sodium, type 2 diabetes Hopefully d/c in the next 48 hrs Admission and Anticipated Discharge Date Admission Date: January 06, 2024 Subjective Patient seen and examined says she feels a lot, her belly is no longer swollen Review of Systems Review of Systems: All systems reviewed are negative, apart from the ones contained in the history. Physical Exam Physical Exam: The patient is awake, alert and oriented 3, well developed and well nourished, normocephalic and atraumatic, lying in bed and in no acute distress. HEENT--PERRL, EOMI, mucous membranes and oropharynx mildly dry Neck--supple. No JVD. No bruits. Thyroid normal, trachea midline, no adenopa thy. Heart--normal S1 and S2. No murmurs, rubs or gallops. Lungs--clear bilaterally, no respiratory distress, no accessory muscle use. Abdomen--panniculitis Extremities--no cyanosis or clubbing. No edema. Dermatologic--normal skin turgor, normal color, no abnormal lymph nodes, no rash. Neurologic--cranial nerves II through XII grossly intact. Rheumatologic--normal range of motion. Psychiatric--normal affect. Results & Data Results & Data Vital Signs (Past 12 Hours) Vital Signs Temp Pulse Pulse Resp BP BP Pulse Ox 01/09/24 11:38 97.9 F 66 18 98/64 L 93 01/09/24 07:15 97.7 F 58 L 18 120/61 93 01/09/24 06:57 48 L 01/09/24 03:04 97.3 F L 58 L 18 95/59 L 97 O2 Del Method 01/09/24 11:38 Room Air 01/09/24 07:15 Room Air 01/09/24 06:57 01/09/24 03:04 Room Air PG Care Time/CCT Total # of Minutes Spent Total Time Spent with Patient: Total time spent is greater than 50% in coordination of care (as documented) at patient's floor/unit and/or counseling patient: Coding Level of Care Code 77004 SUB INP/OBS CARE 2/35MIN Diagnoses Cellulitis L03.311 Site of cellulitis: trunk Site of cellulitis of trunk: abdominal wall Acute on chronic heart failure with preserved ejection fraction I50.33 Supraclavicular lymphadenopathy R59.0 Time Spent (min) 35 (1) Cellulitis Site of cellulitis: trunk Site of cellulitis of trunk: abdominal wall Qualified Code(s): L03.311 - Cellulitis of abdominal wall
[2024-01-09] MEDS: BUMETANIDE 2 MG in SYRINGE 0 ML IV SCH (20:22)
[2024-01-10 08:03] LABS: BUN Creatinine Ratio 14.9 (10-20); Calcium 8.6 mg/dl (8.6-10.3); Est GFR (African American) 46.5 ml/min; Est GFR (Non-African American) 40.1 ml/min; Potassium 3.9 mmol/L (3.5-5.1)
--- NOTE | 2024-01-10 14:13 | Hospitalist Progress Note ---
Date of Service January 10, 2024 Assessment & Plan (1) Cellulitis: Plan: cellulitis of abd wall, with panniculitis Admitted on account of worsening panniculitis Chronic doxycycline for MRSA prophylaxis after prior knee infection Continue cefepime / daptomycin - previously responded well to this Improved today clinically Will continue diuresis, which helps reduce the size of the swelling (2) Acute on chronic heart failure with preserved ejection fraction: Plan: Mainly dependant edema of pannus however weight overall increased (per patient but chart shows she is close to baseline) and historically this has responded to diuretics to a point Reduce Bumex to 2mg BID and hold spironolactone and Losartan on account of low BP Strict I&Os, phillips catheter inserted on admission for accurate output and help with wound healing (3) Supraclavicular lymphadenopathy: Plan: Biopsy from 12/29 pending at this time Plan ANDRZEJ - CPAP HS Anxiety - continue her usual buspirone and bupropion Pruritus - continue her usual anti-histamines VTE prophylaxis - heparin 7500 units q.8 hourly Diet - heart healthy, low-sodium, type 2 diabetes Hopefully d/c in the next 48 hrs Admission and Anticipated Discharge Date Admission Date: January 06, 2024 Subjective Patient seen and examined says she feels a lot, her belly is no longer swollen Review of Systems Review of Systems: All systems reviewed are negative, apart from the ones contained in the history. Physical Exam Physical Exam: The patient is awake, alert and oriented 3, well developed and well nourished, normocephalic and atraumatic, lying in bed and in no acute distress. HEENT--PERRL, EOMI, mucous membranes and oropharynx mildly dry Neck--supple. No JVD. No bruits. Thyroid normal, trachea midline, no adenopa thy. Heart--normal S1 and S2. No murmurs, rubs or gallops. Lungs--clear bilaterally, no respiratory distress, no accessory muscle use. Abdomen--panniculitis Extremities--no cyanosis or clubbing. No edema. Dermatologic--normal skin turgor, normal color, no abnormal lymph nodes, no rash. Neurologic--cranial nerves II through XII grossly intact. Rheumatologic--normal range of motion. Psychiatric--normal affect. Results & Data Results & Data Vital Signs (Past 12 Hours) Vital Signs Temp Pulse Pulse Resp BP Pulse Ox O2 Del Method 01/10/24 11:42 97.7 F 59 L 18 112/68 96 Room Air 01/10/24 10:33 58 L 01/10/24 08:13 97.7 F 61 18 103/55 L 96 Room Air 01/10/24 02:40 54 L 16 95/62 L 54 L CPAP PG Care Time/CCT Total # of Minutes Spent Total Time Spent with Patient: Total time spent is greater than 50% in coordination of care (as documented) at patient's floor/unit and/or counseling patient: Coding Level of Care Code 39512 SUB INP/OBS CARE 2/35MIN Diagnoses Cellulitis L03.311 Site of cellulitis: trunk Site of cellulitis of trunk: abdominal wall Acute on chronic heart failure with preserved ejection fraction I50.33 Supraclavicular lymphadenopathy R59.0 Time Spent (min) 35 (1) Cellulitis Site of cellulitis: trunk Site of cellulitis of trunk: abdominal wall Qualified Code(s): L03.311 - Cellulitis of abdominal wall
[2024-01-11 08:19] LABS: BUN Creatinine Ratio 15.2 (10-20); Calcium 8.9 mg/dl (8.6-10.3); Creatinine Clr Calc Pharmacy 65.4 ml/min; Est GFR (African American) 44.9 ml/min; Est GFR (Non-African American) 38.8 ml/min; Potassium 3.7 mmol/L (3.5-5.1)
[2024-01-11] MEDS: MAGNESIUM HYDROXIDE SUSP 30 ML UDC PO PRN (08:34)
--- NOTE | 2024-01-11 15:45 | Hospitalist Progress Note ---
Date of Service January 11, 2024 Assessment & Plan (1) Cellulitis: Plan: cellulitis of abd wall, with panniculitis Admitted on account of worsening panniculitis Chronic doxycycline for MRSA prophylaxis after prior knee infection Continue cefepime / daptomycin - previously responded well to this Improved today clinically Will continue diuresis, which helps reduce the size of the swelling (2) Acute on chronic heart failure with preserved ejection fraction: Plan: Mainly dependant edema of pannus however weight overall increased (per patient but chart shows she is close to baseline) and historically this has responded to diuretics to a point Reduce Bumex to 2mg BID and hold spironolactone and Losartan on account of low BP Strict I&Os, phillips catheter inserted on admission for accurate output and help with wound healing (3) Supraclavicular lymphadenopathy: Plan: Biopsy from 12/29 pending at this time Plan ANDRZEJ - CPAP HS Anxiety - continue her usual buspirone and bupropion Pruritus - continue her usual anti-histamines VTE prophylaxis - heparin 7500 units q.8 hourly Diet - heart healthy, low-sodium, type 2 diabetes Hopefully d/c in the next 48 hrs Admission and Anticipated Discharge Date Admission Date: January 06, 2024 Subjective Patient seen and examined says she feels a lot, her belly is no longer swollen Review of Systems Review of Systems: All systems reviewed are negative, apart from the ones contained in the history. Physical Exam Physical Exam: The patient is awake, alert and oriented 3, well developed and well nourished, normocephalic and atraumatic, lying in bed and in no acute distress. HEENT--PERRL, EOMI, mucous membranes and oropharynx mildly dry Neck--supple. No JVD. No bruits. Thyroid normal, trachea midline, no adenopa thy. Heart--normal S1 and S2. No murmurs, rubs or gallops. Lungs--clear bilaterally, no respiratory distress, no accessory muscle use. Abdomen--panniculitis Extremities--no cyanosis or clubbing. No edema. Dermatologic--normal skin turgor, normal color, no abnormal lymph nodes, no rash. Neurologic--cranial nerves II through XII grossly intact. Rheumatologic--normal range of motion. Psychiatric--normal affect. Results & Data Results & Data Vital Signs (Past 12 Hours) Vital Signs Temp Pulse Pulse Resp BP Pulse Ox O2 Del Method 01/11/24 15:29 70 01/11/24 11:34 97.5 F L 60 18 103/59 L 97 Room Air 01/11/24 08:16 97.5 F L 114 H 18 143/75 H 96 Room Air 01/11/24 07:29 61 PG Care Time/CCT Total # of Minutes Spent Total Time Spent with Patient: Total time spent is greater than 50% in coordination of care (as documented) at patient's floor/unit and/or counseling patient: Coding Level of Care Code 08252 SUB INP/OBS CARE 2/35MIN Diagnoses Cellulitis L03.311 Site of cellulitis: trunk Site of cellulitis of trunk: abdominal wall Acute on chronic heart failure with preserved ejection fraction I50.33 Supraclavicular lymphadenopathy R59.0 Time Spent (min) 35 (1) Cellulitis Site of cellulitis: trunk Site of cellulitis of trunk: abdominal wall Qualified Code(s): L03.311 - Cellulitis of abdominal wall
[2024-01-11] MEDS: BUMETANIDE 1 MG in SYRINGE 0 ML IV SCH (21:48)
[2024-01-12 07:53] LABS: BUN Creatinine Ratio 14.6 (10-20); Calcium 9.1 mg/dl (8.6-10.3); Est GFR (African American) 36.8 ml/min; Est GFR (Non-African American) 31.8 ml/min; Potassium 4.2 mmol/L (3.5-5.1)
[2024-01-12] MEDS ORDERED: Nursing to Pharmacy 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 SCH (08:00)
--- NOTE | 2024-01-12 11:43 | Hospitalist Progress Note ---
Date of Service January 12, 2024 Assessment & Plan (1) Cellulitis: Plan: cellulitis of abd wall, with panniculitis Admitted on account of worsening panniculitis Chronic doxycycline for MRSA prophylaxis after prior knee infection Continue cefepime / daptomycin - previously responded well to this Improved today clinically Will continue diuresis, which helps reduce the size of the swelling (2) Acute on chronic heart failure with preserved ejection fraction: Plan: Mainly dependant edema of pannus however weight overall increased (per patient but chart shows she is close to baseline) and historically this has responded to diuretics to a point Reduce Bumex to 2mg BID and hold spironolactone and Losartan on account of low BP Strict I&Os, phillips catheter inserted on admission for accurate output and help with wound healing (3) Supraclavicular lymphadenopathy: Plan: Biopsy from 12/29 pending at this time (4) Acute kidney injury superimposed on CKD: Plan: Worsening VARINDER on CKD Due to diuresis monitor renal functions Plan ANDRZEJ - CPAP HS Anxiety - continue her usual buspirone and bupropion Pruritus - continue her usual anti-histamines VTE prophylaxis - heparin 7500 units q.8 hourly Diet - heart healthy, low-sodium, type 2 diabetes Hopefully d/c in the next 24 hrs Admission and Anticipated Discharge Date Admission Date: January 06, 2024 Subjective Patient seen and examined says she feels a lot, her belly is no longer swollen Review of Systems Review of Systems: All systems reviewed are negative, apart from the ones contained in the history. Physical Exam Physical Exam: The patient is awake, alert and oriented 3, well developed and well nourished, normocephalic and atraumatic, lying in bed and in no acute distress. HEENT--PERRL, EOMI, mucous membranes and oropharynx mildly dry Neck--supple. No JVD. No bruits. Thyroid normal, trachea midline, no adenopathy. Heart--normal S1 and S2. No murmurs, rubs or gallops. Lungs--clear bilaterally, no respiratory distress, no accessory muscle use. Abdomen--panniculitis Extremities--no cyanosis or clubbing. No edema. Dermatologic--normal skin turgor, normal color, no abnormal lymph nodes, no rash. Neurologic--cranial nerves II through XII grossly intact. Rheumatologic--normal range of motion. Psychiatric--normal affect. Results & Data Results & Data Vital Signs (Past 12 Hours) Vital Signs Temp Pulse Pulse Resp BP BP Pulse Ox 01/12/24 07:58 97.3 F L 58 L 16 131/63 95 01/12/24 07:27 60 01/12/24 02:50 54 L 18 100/63 97 O2 Del Method 01/12/24 07:58 Room Air 01/12/24 07:27 01/12/24 02:50 Room Air, CPAP PG Care Time/CCT Total # of Minutes Spent Total Time Spent with Patient: Total time spent is greater than 50% in coordination of care (as documented) at patient's floor/unit and/or counseling patient: Coding Level of Care Code 05234 SUB INP/OBS CARE 235MIN Diagnoses Cellulitis L03.311 Site of cellulitis: trunk Site of cellulitis of trunk: abdominal wall Acute on chronic heart failure with preserved ejection fraction I50.33 Supraclavicular lymphadenopathy R59.0 Acute kidney injury superimposed on CKD N17.9; N18.9 Time Spent (min) 35 (1) Cellulitis Site of cellulitis: trunk Site of cellulitis of trunk: abdominal wall Qualified Code(s): L03.311 - Cellulitis of abdominal wall
[2024-01-12] MEDS: CEFEPIME 2,000 MG in SYRINGE 0 ML IV SCH (16:56)
[2024-01-13 08:43] LABS: BUN Creatinine Ratio 16.2 (10-20); Calcium 9.2 mg/dl (8.6-10.3); Creatinine Clr Calc Pharmacy 63.2 ml/min; Est GFR (African American) 43.8 ml/min; Est GFR (Non-African American) 37.8 ml/min; Potassium 4.3 mmol/L (3.5-5.1)
--- NOTE | 2024-01-13 10:51 | Hospitalist Progress Note ---
Date of Service January 13, 2024 Assessment & Plan (1) Cellulitis: Plan: cellulitis of abd wall, with panniculitis Admitted on account of worsening panniculitis Chronic doxycycline for MRSA prophylaxis after prior knee infection Continue cefepime / daptomycin - previously responded well to this Improved today clinically, The abdominal wall cellulitis and edema better Will continue diuresis, which helps reduce the size of the swelling Transition to p.o. antibiotics prior to discharge tomorrow (2) Acute on chronic heart failure with preserved ejection fraction: Plan: Mainly dependant edema of pannus however weight overall increased (per patient but chart shows she is close to baseline) and historically this has responded to diuretics to a point Reduce Bumex to 2mg BID and hold spironolactone and Losartan on account of low BP Strict I&Os, phillips catheter inserted on admission for accurate output and help with wound healing (3) Supraclavicular lymphadenopathy: Plan: Biopsy from 12/29 Pathology report follicular lymphoma in situ, positive stain for CD10 outpatient follow up with oncology (4) Acute kidney injury superimposed on CKD: Plan: Worsening VARINDER on CKD Due to diuresis monitor renal functions Plan ANDRZEJ - CPAP HS Anxiety - continue her usual buspirone and bupropion Pruritus - continue her usual anti-histamines VTE prophylaxis - heparin 7500 units q.8 hourly Diet - heart healthy, low-sodium, type 2 diabetes Hopefully d/c in the next 24 hrs Admission and Anticipated Discharge Date Admission Date: January 06, 2024 Subjective Patient seen and examined, She continues to improve, her belly swelling has gotten better. Review of Systems Review of Systems: All systems reviewed are negative, apart from the ones contained in the history. Physical Exam Physical Exam: The patient is awake, alert and oriented 3, well developed and well nourished, normocephalic and atraumatic, lying in bed and in no acute distress. HEENT--PERRL, EOMI, mucous membranes and oropharynx mildly dry Neck--supple. No JVD. No bruits. Thyroid normal, trachea midline, no adenopathy. Heart--normal S1 and S2. No murmurs, rubs or gallops. Lungs--clear bilaterally, no respiratory distress, no accessory muscle use. Abdomen--panniculitis Extremities--no cyanosis or clubbing. No edema. Dermatologic--normal skin turgor, normal color, no abnormal lymph nodes, no rash. Neurologic--cranial nerves II through XII grossly intact. Rheumatologic--normal range of motion. Psychiatric--normal affect. Results & Data Results & Data Vital Signs (Past 12 Hours) Vital Signs Temp Pulse Resp BP Pulse Ox O2 Del Method 01/13/24 08:01 97.5 F L 58 L 18 123/82 96 Room Air 01/13/24 03:03 97.3 F L 63 18 122/80 94 Room Air PG Care Time/CCT Total # of Minutes Spent Total Time Spent with Patient: Total time spent is greater than 50% in coordination of care (as documented) at patient's floor/unit and/or counseling patient: Coding Level of Care Code 92662 SUB INP/OBS CARE 235MIN Diagnoses Cellulitis L03.311 Site of cellulitis: trunk Site of cellulitis of trunk: abdominal wall Acute on chronic heart failure with preserved ejection fraction I50.33 Supraclavicular lymphadenopathy R59.0 Acute kidney injury superimposed on CKD N17.9; N18.9 Time Spent (min) 35 (1) Cellulitis Site of cellulitis: trunk Site of cellulitis of trunk: abdominal wall Qualified Code(s): L03.311 - Cellulitis of abdominal wall
[2024-01-13] MEDS: MIDODRINE HCL 2.5 MG TAB PO SCH (11:23)
--- NOTE | 2024-01-14 11:57 | Hospitalist Progress Note ---
Date of Service January 14, 2024 Assessment & Plan (1) Cellulitis: Plan: cellulitis of abd wall, with panniculitis Admitted on account of worsening panniculitis Chronic doxycycline for MRSA prophylaxis after prior knee infection Continue cefepime / daptomycin - previously responded well to this Improved today clinically, The abdominal wall cellulitis and edema better Will continue diuresis, which helps reduce the size of the swelling Transition to p.o. antibiotics prior to discharge tomorrow (2) Acute on chronic heart failure with preserved ejection fraction: Plan: Mainly dependant edema of pannus however weight overall increased (per patient but chart shows she is close to baseline) and historically this has responded to diuretics to a point Increase the Bumex back to 3 mg twice daily, current of worsening abdominal wall edema. Who had p.o. midodrine to help prop up his blood pressure.Hold spironolactone and Losartan on account of low BP Strict I&Os, phillips catheter inserted on admission for accurate output and help with wound healing (3) Supraclavicular lymphadenopathy: Plan: Biopsy from 12/29 Pathology report follicular lymphoma in situ, positive stain for CD10 outpatient follow up with oncology (4) Acute kidney injury superimposed on CKD: Plan: Worsening VARINDER on CKD Due to diuresis monitor renal functions Plan ANDRZEJ - CPAP HS Anxiety - continue her usual buspirone and bupropion Pruritus - continue her usual anti-histamines VTE prophylaxis - heparin 7500 units q.8 hourly Diet - heart healthy, low-sodium, type 2 diabetes Hopefully d/c in the next 24 hrs Admission and Anticipated Discharge Date Admission Date: January 06, 2024 Subjective Patient seen and examined, She is beginning to reaccumulate fluid in her belly, given the reduced doses of diuretics Review of Systems Review of Systems: All systems reviewed are negative, apart from the ones contained in the history. Physical Exam Physical Exam: The patient is awake, alert and oriented 3, well developed and well nourished, normocephalic and atraumatic, lying in bed and in no acute distress. HEENT--PERRL, EOMI, mucous membranes and oropharynx mildly dry Neck--supple. No JVD. No bruits. Thyroid normal, trachea midline, no adenopathy. Heart--normal S1 and S2. No murmurs, rubs or gallops. Lungs--clear bilaterally, no respiratory distress, no accessory muscle use. Abdomen--panniculitis Extremities--no cyanosis or clubbing. No edema. Dermatologic--normal skin turgor, normal color, no abnormal lymph nodes, no rash. Neurologic--cranial nerves II through XII grossly intact. Rheumatologic--normal range of motion. Psychiatric--normal affect. Results & Data Results & Data Vital Signs (Past 12 Hours) Vital Signs Temp Pulse Pulse Resp BP Pulse Ox O2 Del Method 01/14/24 11:41 97.5 F L 55 L 18 130/78 97 Room Air 01/14/24 08:07 97.3 F L 59 L 18 100/64 97 Room Air 01/14/24 07:42 Room Air 01/14/24 05:32 52 L 01/14/24 02:10 97.7 F 61 16 122/72 98 Room Air PG Care Time/CCT Total # of Minutes Spent Total Time Spent with Patient: Total time spent is greater than 50% in coordination of care (as documented) at patient's floor/unit and/or counseling patient: Coding Level of Care Code 58006 SUB INP/OBS CARE 2/35MIN Diagnoses Cellulitis L03.311 Site of cellulitis: trunk Site of cellulitis of trunk: abdominal wall Acute on chronic heart failure with preserved ejection fraction I50.33 Supraclavicular lymphadenopathy R59.0 Acute kidney injury superimposed on CKD N17.9; N18.9 Time Spent (min) 35 (1) Cellulitis Site of cellulitis: trunk Site of cellulitis of trunk: abdominal wall Qualified Code(s): L03.311 - Cellulitis of abdominal wall
[2024-01-14] MEDS: MIDODRINE HCL 10 MG TAB PO SCH (12:33)
[2024-01-14] MEDS: BUMETANIDE 3 MG in SYRINGE 0 ML IV SCH (16:03)
[2024-01-15 07:44] LABS: BUN Creatinine Ratio 17.1 (10-20); Calcium 9.1 mg/dl (8.6-10.3); Creatinine Clr Calc Pharmacy 57.2 ml/min; Est GFR (African American) 38.7 ml/min; Est GFR (Non-African American) 33.4 ml/min; Potassium 4.5 mmol/L (3.5-5.1)
--- NOTE | 2024-01-15 11:14 | Hospitalist Progress Note ---
Date of Service January 15, 2024 Assessment & Plan (1) Cellulitis: Plan: cellulitis of abd wall, with panniculitis Admitted on account of worsening panniculitis Chronic doxycycline for MRSA prophylaxis after prior knee infection Continue cefepime / daptomycin - previously responded well to this There was an initial improvement in the size of the abdominal swelling, however had dose of Bumex had to be reduced because her blood pressure could not tolerate it. This has led to worsening of the abdominal edema. I will increase her Bumex back to 3 mg twice daily, but will also increase the dose of her midodrine to help support her blood pressure. Continue wound care (2) Acute on chronic heart failure with preserved ejection fraction: Plan: Mainly dependant edema of pannus however weight overall increased (per patient but chart shows she is close to baseline) and historically this has responded to diuretics to a point Increase the Bumex back to 3 mg twice daily, current of worsening abdominal wall edema. Who had p.o. midodrine to help prop up his blood pressure.Hold spironolactone and Losartan on account of low BP Strict I&Os, phillips catheter inserted on admission for accurate output and help with wound healing (3) Supraclavicular lymphadenopathy: Plan: Biopsy from 12/29 Pathology report follicular lymphoma in situ, positive stain for CD10 outpatient follow up with oncology (4) Acute kidney injury superimposed on CKD: Plan: Worsening VARINDER on CKD Due to diuresis monitor renal functions Plan ANDRZEJ - CPAP HS Anxiety - continue her usual buspirone and bupropion Pruritus - continue her usual anti-histamines VTE prophylaxis - heparin 7500 units q.8 hourly Diet - heart healthy, low-sodium, type 2 diabetes Disposition: Patient will need a few more days of diuresis to help reduce the abdominal wall edema Admission and Anticipated Discharge Date Admission Date: January 06, 2024 Subjective Patient seen and examined, She is beginning to reaccumulate fluid in her belly, given the reduced doses of diuretics Review of Systems Review of Systems: All systems reviewed are negative, apart from the ones contained in the history. Physical Exam Physical Exam: The patient is awake, alert and oriented 3, well developed and well nourished, normocephalic and atraumatic, lying in bed and in no acute distress. HEENT--PERRL, EOMI, mucous membranes and oropharynx mildly dry Neck--supple. No JVD. No bruits. Thyroid normal, trachea midline, no adenopathy. Heart--normal S1 and S2. No murmurs, rubs or gallops. Lungs--clear bilaterally, no respiratory distress, no accessory muscle use. Abdomen--panniculitis Extremities--no cyanosis or clubbing. No edema. Dermatologic--normal skin turgor, normal color, no abnormal lymph nodes, no rash. Neurologic--cranial nerves II through XII grossly intact. Rheumatologic--normal range of motion. Psychiatric--normal affect. Results & Data Results & Data Vital Signs (Past 12 Hours) Vital Signs Temp Pulse Pulse Resp BP Pulse Ox O2 Del Method 01/15/24 08:30 61 01/15/24 07:43 97.9 F 58 L 16 113/69 93 Room Air 01/15/24 07:09 Room Air 01/15/24 05:30 50 L 01/15/24 03:43 97.5 F L 95 H 20 108/69 96 Room Air, CPAP 01/15/24 00:15 97.3 F L 56 L 18 114/59 L 92 Room Air 01/14/24 23:25 51 L 01/14/24 23:15 Room Air PG Care Time/CCT Total # of Minutes Spent Total Time Spent with Patient: Total time spent is greater than 50% in coordination of care (as documented) at patient's floor/unit and/or counseling patient: Coding Level of Care Code 23211 SUB INP/OBS CARE 2/35MIN Diagnoses Cellulitis L03.311 Site of cellulitis: trunk Site of cellulitis of trunk: abdominal wall Acute on chronic heart failure with preserved ejection fraction I50.33 Supraclavicular lymphadenopathy R59.0 Acute kidney injury superimposed on CKD N17.9; N18.9 Time Spent (min) 35 (1) Cellulitis Site of cellulitis: trunk Site of cellulitis of trunk: abdominal wall Qualified Code(s): L03.311 - Cellulitis of abdominal wall
[2024-01-16 07:20] LABS: Hematocrit (blood only) 39.3 % (37.0-47.0); Hemoglobin 12.6 g/dl (12.0-16.0); Mean Corpuscular Hemoglobin 27.9 pg (25.0-34.0); Mean Corpuscular Hgb Conc 32.1 g/dL (32.0-36.0); Mean Corpuscular Volume 86.9 fL (80.0-100.0); Mean Platelet Volume 10.5 fL (9.4-12.4); Platelet Count 253 K/uL (130-400); RDW Coefficient of Variation 15.1 % (11.5-14.5); RDW Standard Deviation 47.3 fL (36.4-46.3); Red Blood Count 4.52 M/uL (4.20-5.40); White Blood Count 9.06 K/ul (4.8-10.8)
[2024-01-16 07:40] LABS: BUN Creatinine Ratio 18.1 (10-20); Calcium 9.1 mg/dl (8.6-10.3); Creatinine Clr Calc Pharmacy 62.2 ml/min; Est GFR (African American) 43.5 ml/min; Est GFR (Non-African American) 37.5 ml/min; Potassium 4.1 mmol/L (3.5-5.1)
--- NOTE | 2024-01-16 14:20 | Hospitalist Progress Note ---
Date of Service January 16, 2024 Assessment & Plan (1) Cellulitis: Plan: cellulitis of abd wall, with panniculitis Admitted on account of worsening panniculitis Chronic doxycycline for MRSA prophylaxis after prior knee infection Continue cefepime / daptomycin - previously responded well to this There was an initial improvement in the size of the abdominal swelling, however had dose of Bumex had to be reduced because her blood pressure could not tolerate it. This has led to worsening of the abdominal edema. She is now on Bumex 3 mg IV twice daily, along with increased dose of midodrine to help support her blood pressure. Continue wound care (2) Acute on chronic heart failure with preserved ejection fraction: Plan: Mainly dependant edema of pannus however weight overall increased (per patient but chart shows she is close to baseline) and historically this has responded to diuretics to a point Increased the Bumex back to 3 mg twice daily, current of worsening abdominal wall edema. Also on midodrine to help increase her blood pressure. Continue to hold spironolactone and Losartan on account of low BP Will continue Bumex 3 mg IV twice daily today. Will hold further dosing tomorrow until labs reviewed. Creatinine stable at this time and tolerating Bumex dose. Strict I&Os, phillips catheter inserted on admission for accurate output and help with wound healing (3) Supraclavicular lymphadenopathy: Plan: Biopsy from 12/29 Pathology report follicular lymphoma in situ, positive stain for CD10 outpatient follow up with oncology (4) Acute kidney injury superimposed on CKD: Plan: Worsening VARINDER on CKD Due to diuresis monitor renal functions Plan ANDRZEJ - CPAP HS Anxiety - continue her usual buspirone and bupropion Pruritus - continue her usual anti-histamines VTE prophylaxis - heparin 7500 units q.8 hourly Diet - heart healthy, low-sodium, type 2 diabetes Disposition: Patient will need a few more days of diuresis to help reduce the abdominal wall edema Admission and Anticipated Discharge Date Admission Date: January 06, 2024 Subjective Patient says that she feels better. Her belly is not as distended and swollen. She says that he she had a good amount of urine out. No chest pain or shortness of breath. She denies dizziness or lightheadedness. Review of Systems Review of Systems: All systems reviewed & are unremarkable except as noted in Subjective Physical Exam Physical Exam: General: Awake, conversant. Morbidly obese Heart: S1, S2/regular rate and rhythm, no murmur rubs or gallops Lungs: Clear to auscultation bilaterally. Normal effort Abdomen: Soft/nondistended. Cellulitis improving. No hepatosplenomegaly. Wrinkles noted in the belly. Extremities: No clubbing/cyanosis. No edema Behavior: Appropriate, cooperative Results & Data Results & Data Vital Signs (Past 12 Hours) Vital Signs Temp Pulse Pulse Resp BP Pulse Ox O2 Del Method 01/16/24 11:28 36.7 C 53 L 18 137/74 96 Room Air 01/16/24 07:48 49 L 01/16/24 07:45 36.5 C 53 L 18 127/79 95 Room Air 01/16/24 04:06 36.5 C 01/16/24 03:55 35.8 C L 50 L 18 94/57 L 97 CPAP Laboratory Results Abnormal lab results 01/16/24 Range/Units 06:44 RDW Std Deviation 47.3 H (36.4-46.3) fL RDW Coeff of Cleo 15.1 H (11.5-14.5) % Chloride 97 L (98-107) mmol/L Carbon Dioxide 37 H (21-32) mmol/L BUN 27 H (6-23) mg/dl Creatinine 1.49 H (0.6-1.2) mg/dl PG Care Time/CCT Total # of Minutes Spent Total Time Spent with Patient: Total time spent is greater than 50% in coordination of care (as documented) at patient's floor/unit and/or counseling patient: Coding Level of Care Code 68703 SUB INP/OBS CARE MIN Diagnoses Cellulitis L03.311 Site of cellulitis: trunk Site of cellulitis of trunk: abdominal wall Acute on chronic heart failure with preserved ejection fraction I50.33 Supraclavicular lymphadenopathy R59.0 Acute kidney injury superimposed on CKD N17.9; N18.9 (1) Cellulitis Site of cellulitis: trunk Site of cellulitis of trunk: abdominal wall Qualified Code(s): L03.311 - Cellulitis of abdominal wall
[2024-01-17 08:49] LABS: BUN Creatinine Ratio 16.8 (10-20); Calcium 9.3 mg/dl (8.6-10.3); Creatinine Clr Calc Pharmacy 52.9 ml/min; Est GFR (African American) 36.3 ml/min; Est GFR (Non-African American) 31.3 ml/min; Potassium 4.3 mmol/L (3.5-5.1)
--- NOTE | 2024-01-17 12:31 | Hospitalist Progress Note ---
Date of Service January 17, 2024 Assessment & Plan (1) Cellulitis: Plan: cellulitis of abd wall, with panniculitis Admitted on account of worsening panniculitis Chronic doxycycline for MRSA prophylaxis after prior knee infection Completed course of cefepime / daptomycin There was an initial improvement in the size of the abdominal swelling, however had dose of Bumex had to be reduced because her blood pressure could not tolerate it. This has led to worsening of the abdominal edema. She got Bumex 3 mg IV twice daily, along with increased dose of midodrine to help support her blood pressure Abdominal swelling improved significantly. However creatinine went up slightly. Will hold Bumex and midodrine. Continue wound care (2) Acute on chronic heart failure with preserved ejection fraction: Plan: Mainly dependant edema of pannus however weight overall increased (per patient but chart shows she is close to baseline) and historically this has responded to diuretics to a point Was on increased dose of Bumex 3 mg twice daily, due to worsening abdominal wall edema. Also on midodrine to help increase her blood pressure. Will give her a diuretic holiday today since creatinine is slightly bumped Will hold midodrine as well as blood pressure is holding fairly well. Continue to hold spironolactone and Losartan on account of low BP Discontinue Bales catheter (3) Supraclavicular lymphadenopathy: Plan: Biopsy from 12/29 Pathology report follicular lymphoma in situ, positive stain for CD10 outpatient follow up with oncology (4) Acute kidney injury superimposed on CKD: Plan: Worsening VARINDER on CKD Due to diuresis monitor renal functions Plan ANDRZEJ - CPAP HS Anxiety - continue her usual buspirone and bupropion Pruritus - continue her usual anti-histamines VTE prophylaxis - heparin 7500 units q.8 hourly Diet - heart healthy, low-sodium, type 2 diabetes Disposition: Discharge soon once creatinine stabilizes Admission and Anticipated Discharge Date Admission Date: January 06, 2024 Subjective Patient feels well today. She says that her abdomen size is very close to her usual baseline. Review of Systems Review of Systems: All systems reviewed & are unremarkable except as noted in Subjective Physical Exam Physical Exam: General: Awake, conversant. Morbidly obese Heart: S1, S2/regular rate and rhythm, no murmur rubs or gallops Lungs: Clear to auscultation bilaterally. Normal effort Abdomen: Soft/nondistended. Cellulitis improved. No hepatosplenomegaly. Wrinkles noted in the belly. Extremities: No clubbing/cyanosis. No edema Behavior: Appropriate, cooperative Results & Data Results & Data Vital Signs (Past 12 Hours) Vital Signs Temp Pulse Pulse Resp BP Pulse Ox O2 Del Method 01/17/24 11:41 36.7 C 53 L 18 153/89 H 95 Room Air 01/17/24 07:56 36.5 C 50 L 17 133/81 95 Room Air 01/17/24 07:03 54 L 01/17/24 04:52 36.5 C 58 L 16 108/73 93 Room Air PG Care Time/CCT Total # of Minutes Spent Total Time Spent with Patient: Total time spent is greater than 50% in coordination of care (as documented) at patient's floor/unit and/or counseling patient: Coding Level of Care Code 99196 SUB INP/OBS CARE 2/35MIN Diagnoses Cellulitis L03.311 Site of cellulitis: trunk Site of cellulitis of trunk: abdominal wall Acute on chronic heart failure with preserved ejection fraction I50.33 Supraclavicular lymphadenopathy R59.0 Acute kidney injury superimposed on CKD N17.9; N18.9 (1) Cellulitis Site of cellulitis: trunk Site of cellulitis of trunk: abdominal wall Qualified Code(s): L03.311 - Cellulitis of abdominal wall
[2024-01-18 08:50] LABS: BUN Creatinine Ratio 17.7 (10-20); Calcium 9.5 mg/dl (8.6-10.3); Creatinine Clr Calc Pharmacy 65.6 ml/min; Est GFR (African American) 46.5 ml/min; Est GFR (Non-African American) 40.1 ml/min; Potassium 4.4 mmol/L (3.5-5.1)
[2024-01-18] MEDS: BUMETANIDE 1 MG TAB PO SCH (12:30)
--- NOTE | 2024-01-18 14:38 | Hospitalist Progress Note ---
Date of Service January 18, 2024 Assessment & Plan (1) Cellulitis: Plan: cellulitis of abd wall, with panniculitis Admitted on account of worsening panniculitis Chronic doxycycline for MRSA prophylaxis after prior knee infection Completed course of cefepime / daptomycin There was an initial improvement in the size of the abdominal swelling, however had dose of Bumex had to be reduced because her blood pressure could not tolerate it. This has led to worsening of the abdominal edema. She got Bumex 3 mg IV twice daily, along with increased dose of midodrine to help support her blood pressure Abdominal swelling improved significantly. However creatinine went up slightly. Her Bumex and midodrine were held on 01/16. Bumex 2 mg p.o. twice daily resumed 01/17 Continue wound care (2) Acute on chronic heart failure with preserved ejection fraction: Plan: Mainly dependant edema of pannus however weight overall increased (per patient but chart shows she is close to baseline) and historically this has responded to diuretics to a point Was on increased dose of Bumex 3 mg twice daily, due to worsening abdominal wall edema. Also on midodrine to help increase her blood pressure. She got a diuretic holiday on 01/16 Resume Bumex 2 mg p.o. twice daily today Continue to hold spironolactone and Losartan (3) Supraclavicular lymphadenopathy: Plan: Biopsy from 12/29 Pathology report follicular lymphoma in situ, positive stain for CD10 outpatient follow up with oncology. Patient states that she is in contact with oncology and has plans. (4) Acute kidney injury superimposed on CKD: Plan: Worsening VARINDER on CKD Due to diuresis Patient got a diuretic holiday on 01/16 Bumex p.o. home dose 2 mg twice daily started today 01/17 Plan ANDRZEJ - CPAP HS Anxiety - continue her usual buspirone and bupropion Pruritus - continue her usual anti-histamines VTE prophylaxis - heparin 7500 units q.8 hourly Diet - heart healthy, low-sodium, type 2 diabetes Disposition: Discharge in the next 1 to 2 days Admission and Anticipated Discharge Date Admission Date: January 06, 2024 Subjective Patient feels well. Denies chest pain or shortness of breath. She has gained 5 pounds since yesterday Review of Systems Review of Systems: All systems reviewed & are unremarkable except as noted in Subjective Physical Exam Physical Exam: General: Awake, conversant. Morbidly obese Heart: S1, S2/regular rate and rhythm, no murmur rubs or gallops Lungs: Clear to auscultation bilaterally. Normal effort Abdomen: Soft/nondistended. Cellulitis improved. No hepatosplenomegaly. Less wrinkles noted in the belly. Extremities: No clubbing/cyanosis. No edema Behavior: Appropriate, cooperative Results & Data Results & Data Vital Signs (Past 12 Hours) Vital Signs Temp Pulse Pulse Resp BP Pulse Ox O2 Del Method 01/18/24 14:09 57 L 01/18/24 11:24 36.3 C L 59 L 20 145/78 H 97 Room Air 01/18/24 07:35 36.6 C 57 L 18 118/74 95 Room Air 01/18/24 07:19 51 L 01/18/24 03:12 36.4 C L 52 L 16 124/72 97 CPAP PG Care Time/CCT Total # of Minutes Spent Total Time Spent with Patient: Total time spent is greater than 50% in coordination of care (as documented) at patient's floor/unit and/or counseling patient: Coding Level of Care Code 99860 SUB INP/OBS CARE MIN Diagnoses Cellulitis L03.311 Site of cellulitis: trunk Site of cellulitis of trunk: abdominal wall Acute on chronic heart failure with preserved ejection fraction I50.33 Supraclavicular lymphadenopathy R59.0 Acute kidney injury superimposed on CKD N17.9; N18.9 (1) Cellulitis Site of cellulitis: trunk Site of cellulitis of trunk: abdominal wall Qualified Code(s): L03.311 - Cellulitis of abdominal wall
[2024-01-19 07:51] LABS: BUN Creatinine Ratio 17.2 (10-20); Calcium 9.4 mg/dl (8.6-10.3); Creatinine Clr Calc Pharmacy 60.8 ml/min; Est GFR (African American) 42.8 ml/min; Est GFR (Non-African American) 36.9 ml/min; Potassium 4.3 mmol/L (3.5-5.1)
--- NOTE | 2024-01-19 12:05 | Hospitalist Progress Note ---
Date of Service January 19, 2024 Assessment & Plan (1) Cellulitis: Plan: cellulitis of abd wall, with panniculitis Admitted on account of worsening panniculitis Chronic doxycycline for MRSA prophylaxis after prior knee infection Completed course of cefepime / daptomycin There was an initial improvement in the size of the abdominal swelling, however had dose of Bumex had to be reduced because her blood pressure could not tolerate it. This has led to worsening of the abdominal edema. She got Bumex 3 mg IV twice daily, along with increased dose of midodrine to help support her blood pressure Abdominal swelling improved significantly. However creatinine went up slightly. Her Bumex and midodrine were held on 01/16. Bumex 2 mg p.o. twice daily resumed 01/17 Continue wound care (2) Acute on chronic heart failure with preserved ejection fraction: Plan: Mainly dependant edema of pannus however weight overall increased (per patient but chart shows she is close to baseline) and historically this has responded to diuretics to a point Was on increased dose of Bumex 3 mg twice daily, due to worsening abdominal wall edema. Also on midodrine to help increase her blood pressure. She got a diuretic holiday on 01/16 Resume Bumex 2 mg p.o. twice daily 01/17 Continue Monitor renal function Continue to hold spironolactone and Losartan (3) Supraclavicular lymphadenopathy: Plan: Biopsy from 12/29 Pathology report follicular lymphoma in situ, positive stain for CD10 outpatient follow up with oncology. Patient states that she is in contact with oncology and has plans. (4) Acute kidney injury superimposed on CKD: Plan: Worsening VARINDER on CKD Due to diuresis Patient got a diuretic holiday on 01/16 Bumex p.o. home dose 2 mg twice daily started 01/17. Continue Plan ANDRZEJ - CPAP HS Anxiety - continue her usual buspirone and bupropion Pruritus - continue her usual anti-histamines VTE prophylaxis - heparin 7500 units q.8 hourly Diet - heart healthy, low-sodium, type 2 diabetes Disposition: Discharge likely tomorrow Admission and Anticipated Discharge Date Admission Date: January 06, 2024 Subjective Patient feels well. Denies chest pain or shortness of breath. She does not feel like she is building up fluid. Review of Systems Review of Systems: All systems reviewed & are unremarkable except as noted in Subjective Physical Exam Physical Exam: General: Awake, conversant. Morbidly obese Heart: S1, S2/regular rate and rhythm, no murmur rubs or gallops Lungs: Clear to auscultation bilaterally. Normal effort Abdomen: Soft/nondistended. Cellulitis improved. No hepatosplenomegaly. Less wrinkles noted in the belly. Extremities: No clubbing/cyanosis. No edema Behavior: Appropriate, cooperative Results & Data Results & Data Vital Signs (Past 12 Hours) Vital Signs Temp Pulse Resp BP Pulse Ox O2 Del Method 01/19/24 11:31 36.7 C 56 L 20 136/79 96 Room Air 01/19/24 07:39 36.6 C 56 L 18 105/68 96 Room Air 01/19/24 02:54 52 L 18 115/75 99 Room Air, CPAP Laboratory Results Abnormal lab results 01/19/24 Range/Units 07:07 Carbon Dioxide 36 H (21-32) mmol/L BUN 26 H (6-23) mg/dl Creatinine 1.51 H (0.6-1.2) mg/dl PG Care Time/CCT Total # of Minutes Spent Total Time Spent with Patient: Total time spent is greater than 50% in coordination of care (as documented) at patient's floor/unit and/or counseling patient: Coding Level of Care Code 98285 SUB INP/OBS CARE 2MIN Diagnoses Cellulitis L03.311 Site of cellulitis: trunk Site of cellulitis of trunk: abdominal wall Acute on chronic heart failure with preserved ejection fraction I50.33 Supraclavicular lymphadenopathy R59.0 Acute kidney injury superimposed on CKD N17.9; N18.9 (1) Cellulitis Site of cellulitis: trunk Site of cellulitis of trunk: abdominal wall Qualified Code(s): L03.311 - Cellulitis of abdominal wall
[2024-01-20 07:35] LABS: BUN Creatinine Ratio 17.8 (10-20); Calcium 9.5 mg/dl (8.6-10.3); Creatinine Clr Calc Pharmacy 60.4 ml/min; Est GFR (African American) 42.4 ml/min; Est GFR (Non-African American) 36.6 ml/min; Potassium 4.1 mmol/L (3.5-5.1)
[2024-01-20 07:38] VITALS: RESP 20
--- NOTE | 2024-01-20 10:56 | Discharge Summary ---
Date of Service January 20, 2024 Admission HPI Per Admitting Provider Trevor Tristan is a 63 year old female with recurrent panniculitis infections who presents to the ER with weight gain, erythema of pannus. She reports slowly increasing weight of 40lb since her last discharge in November. Over the last week her pannus has become much more painful and erythematous with increased discharge. She reports a tearing sensation over time she moves it. No chest pain or shortness of breath. Abdominal pain only over erythematous pannus area. No worsening leg swelling. No fever or chills. She reports this is similar to her prior hospitalizations with cellulitis. She takes doxycycline chronically for MRSA prophylaxis and has been compliant with this. She was seen by diabetic foot care clinic today and sent ot the ER due to concerns for worsening cellulitis of her pannus despite cephalexin added to her antibiotics started 2 days ago. Admission Exam Per Admitting Provider well developed; + not well nourished and no acute distress Respiratory: normal respiratory effort, lungs clear to auscultation Cardiovascular: RRR, no murmur, no edema Gastrointestinal (Abdomen): Inspection/Auscultation: + abdomen abnormal to inspection (see pictures below) Percussion/Palpation: + abdomen tender (over erythematous areas) Skin: Psychiatric: A+Ox3, euthymic affect Principal Diagnosis Abdominal wall cellulitis/panniculitis Acute on chronic diastolic congestive heart failure Supraclavicular lymphadenopathy, diagnosed as follicular lymphoma in situ, biopsy-proven Acute kidney injury on CKD Discharge Exam General: Awake, conversant. Morbidly obese Heart: S1, S2/regular rate and rhythm, no murmur rubs or gallops Lungs: Clear to auscultation bilaterally. Normal effort Abdomen: Soft/nondistended. Cellulitis improved. No hepatosplenomegaly. Less wrinkles noted in the belly. Extremities: No clubbing/cyanosis. No edema Behavior: Appropriate, cooperative Discharge Data Allergies Allergy/AdvReac Type Severity Reaction Status Date / Time Corticosteroids Allergy Severe Anaphylaxis Unverified 01/06/24 13:56 (Glucocorticoids) dog dander Allergy Intermediate Rash Verified 01/06/24 09:31 morphine Allergy Intermediate mouth and Verified 01/06/24 09:31 face swells Penicillins Allergy Intermediate rash/hives Verified 01/06/24 09:31 adhesive Allergy Mild Skin rash Verified 01/06/24 09:31 localized zolpidem Allergy Unknown Unknown Verified 01/06/24 09:31 pregabalin AdvReac Intermediate "makes Verified 01/06/24 09:31 goofy" Consultations 01/06/24 12:37 ED Decision to Admit Stat Hospital Course (1) Cellulitis: cellulitis of abd wall, with panniculitis Admitted on account of worsening panniculitis Chronic doxycycline for MRSA prophylaxis after prior knee infection Completed course of cefepime / daptomycin There was an initial improvement in the size of the abdominal swelling, however had dose of Bumex had to be reduced because her blood pressure could not tolerate it. This has led to worsening of the abdominal edema. She got Bumex 3 mg IV twice daily, along with increased dose of midodrine to h elp support her blood pressure Abdominal swelling improved significantly. However creatinine went up slightly. Her Bumex and midodrine were held on 01/16. Bumex 2 mg p.o. twice daily resumed 01/17. Creatinine now stable on Bumex 2 mg twice daily. Continue wound care (2) Acute on chronic heart failure with preserved ejection fraction: Mainly dependant edema of pannus however weight overall increased (per patient but chart shows she is close to baseline) and historically this has responded to diuretics to a point Was on increased dose of Bumex 3 mg twice daily, due to worsening abdominal wall edema. Also on midodrine to help increase her blood pressure. She got a diuretic holiday on 01/16 Resume Bumex 2 mg p.o. twice daily 01/17 Continue Renal function stable on 2 mg Bumex twice daily. Will discharge on this regimen. Continue to hold spironolactone and Losartan (3) Supraclavicular lymphadenopathy: Biopsy from 12/29 Pathology report follicular lymphoma in situ, positive stain for CD10 outpatient follow up with oncology. Patient states that she is in contact with oncology and has plans. (4) Acute kidney injury superimposed on CKD: Worsening VARINDER on CKD Due to diuresis Patient got a diuretic holiday on 01/16 Bumex p.o. home dose 2 mg twice daily started 01/17. Continue Plan ANDRZEJ - CPAP HS Anxiety - continue her usual buspirone and bupropion Pruritus - continue her usual anti-histamines Discharge to home today Total Time Total Time Spent Total Time Spent (In Minutes): 35 Discharge Plan Discharge Items Patient Disposition: Home - Self-Care Reason For Visit: ABDOMINAL CELLULITIS Discharge Diagnosis: Abdominal wall cellulitis/panniculitis Acute on chronic diastolic congestive heart failure Supraclavicular lymphadenopathy, diagnosed as follicular lymphoma in situ, biopsy-proven Acute kidney injury on CKD Condition on Discharge: Fair Activity: Resume your previous activity Non-emergency contact: Primary Care Provider and Oncologist Call non-emergency contact if: you have any medication questions and your symptoms worsen Follow-up/Referrals: Awilda Eric CRNP [Primary Care Provider] - 01/31/24 10:00 am Diet: Heart Healthy and Low Sodium (2gm) Addtl Attending Provider Instructions: - Advised to follow-up with oncology and follow their instructions for newly diagnosed lymphoma Advised to follow-up with PCP in 1 week Advised to note that you are being discharged off of some of your blood pressure medications since her blood pressure has been stable without them while you are on Bumex Pending Studies at Discharge: No Stand-Alone Forms: My [facility] Medications and DC Order Prescriptions: Continued cholecalciferol (vitamin D3) [Vitamin D3] 50 mcg (2,000 unit) capsule 2,000 unit PO TID Qty: 270 1RF acetaminophen 500 mg tablet 1,000 mg PO Q4H PRN (Reason: fever or pain) Qty: 90 0RF allopurinol 100 mg tablet 100 mg PO BID Qty: 180 1RF (DME) CPAP Supplies Misc See Rx Instructions .Route Qty: 1 0RF Rx Instructions: As directed (DME) CPAP Machine Misc See Rx Instructions .Route Qty: 1 0RF Rx Instructions: As directed 11cm water pressure Jardiance 10 mg tablet 10 mg PO QAM Qty: 90 3RF Rx Instructions: for congestive heart failure multivitamin Tablet 1 tab PO QAM Qty: 90 1RF gabapentin 400 mg capsule 400 mg PO QID Qty: 360 0RF montelukast [Singulair] 10 mg tablet 10 mg PO QPM Qty: 90 3RF albuterol sulfate [Ventolin HFA] 90 mcg/actuation HFA aerosol inhaler 2 puff INHALATION Q4H PRN (Reason: Shortness Of Breath Or Wheezing) Qty: 18 3RF famotidine [Pepcid] 20 mg tablet 20 mg PO HS Qty: 90 3RF fluticasone propion-salmeterol [Advair Diskus] 250-50 mcg/dose blister with device 1 inh inhalation BID Qty: 1 11RF aspirin 81 mg tablet,delayed release (DR/EC) 81 mg PO QAM duloxetine [Cymbalta] 60 mg capsule,delayed release(DR/EC) 60 mg PO BID albuterol sulfate 2.5 mg /3 mL (0.083 %) solution for nebulization 2.5 mg inhalation Q6H PRN (Reason: Shortness Of Breath) Qty: 90 1RF Rx Instructions: needed metoprolol succinate 50 mg tablet extended release 24 hr 50 mg PO DAILY Qty: 90 3RF Rx Instructions: pt has not started medication cyanocobalamin (vitamin B-12) [Vitamin B-12] 1,000 mcg tablet 1,000 mcg PO QAM Tums 300 mg (750 mg) tablet,chewable 900 mg PO QAM diclofenac sodium [Voltaren Arthritis Pain] 1 % Gel 4 g EXT QID Qty: 1 0RF Rx Instructions: purchase [id number]; may use 4 grams on your lower back, either knee, either hip, back of neck. nystatin 100,000 unit/gram powder 1 applic topical TID PRN (Reason: yeast rash under breasts, abdominal skin folds) Qty: 30 0RF cetirizine [Zyrtec] 10 mg tablet 10 mg PO BID buspirone 15 mg tablet See Rx Instructions .ROUTE .COMPLEX Rx Instructions: Take 15mg w/ 5mg tablet to equal 20mg by mouth three times daily. potassium chloride [Klor-Con M20] 20 mEq tablet,ER particles/crystals 20 meq PO QAM hydroxyzine HCl 25 mg tablet 25 mg PO HS sucralfate [Carafate] 1 gram tablet 1 g PO AC PRN (Reason: heartburn/stomach upset) pantoprazole [Protonix] 40 mg tablet,delayed release (DR/EC) 40 mg PO BID bupropion HCl [Wellbutrin XL] 300 mg tablet extended release 24 hr 300 mg PO QAM tramadol 50 mg tablet 50 mg PO Q6H PRN (Reason: pain, for initial therapy, max 4tabs/day) Qty: 5 0RF buspirone 5 mg tablet See Rx Instructions .ROUTE .COMPLEX Rx Instructions: Take 5mg w/ 15mg tablet to equal 20mg by mouth three times daily. nystatin 100,000 unit/gram cream 1 applic topical BID PRN (Reason: Rash) epinephrine 0.3 mg/0.3 mL auto-injector 0.3 mg IM UD PRN (Reason: anaphylaxis) Held spironolactone 50 mg tablet 25 mg PO BID Qty: 0 0RF Hold Instructions: Resume on 02/03/24. On hold until okayed by PCP losartan 25 mg tablet 25 mg PO QAM Hold Instructions: Resume on 02/03/24. Or hold until okayed by PCP Discontinued cephalexin 500 mg capsule 500 mg PO TID 14 Days Qty: 42 0RF Rx Instructions: Start Date 01/04/24 x14 day supply doxycycline hyclate 100 mg Tablet 100 mg PO BID No Action bumetanide 1 mg tablet 2 mg PO BID Qty: 360 3RF Rx Instructions: take every morning and every afternoon. Increase to 3 mg twice daily as needed for weight gains. Discharge Orders: Discharge Order (Routine); Ordered 01/20/24 Ordered By: Nicolas Uriarte/Other Patient Handouts: Cellulitis Dc Admission Data Admit Date/Time: 01/06/24 12:58 Attending Provider: Nicolas Maya Admit Provider: Candido Varma Primary Care Provider: Awilda Eric Other Providers: Candido Varma Other Interventions: Discharge Summary Assessment (RN) Last Done: 01/20/24 11:14
[2024-01-20 11:02] VITALS: TEMP 98.1; O2SAT 95
[2024-01-20 11:16] VITALS: BP 117/71; PULSE 55
== END 2024-01-20 16:41 | disposition home or self-care (01) | DRG 602 ==
LOC: ED 11:13 → EDINP 12:58 → SUATTDRO 12:58 → 2N 15:41
DX: E11.22 Type 2 diabetes mellitus with diabetic chronic kidney disease; M79.3 Panniculitis, unspecified; I50.33 Acute on chronic diastolic (congestive) heart failure; Z88.0 Allergy status to penicillin; Z68.43 Body mass index [BMI] 50.0-59.9, adult; L97.529 Non-pressure chronic ulcer of other part of left foot with unspecified severity; N18.30 Chronic kidney disease, stage 3 unspecified; L03.311 Cellulitis of abdominal wall; E11.42 Type 2 diabetes mellitus with diabetic polyneuropathy; Z87.891 Personal history of nicotine dependence; I13.0 Hypertensive heart and chronic kidney disease with heart failure and stage 1 through stage 4 chronic kidney disease, or unspecified chronic kidney disease; Z79.82 Long term (current) use of aspirin; E66.01 Morbid (severe) obesity due to excess calories; L97.519 Non-pressure chronic ulcer of other part of right foot with unspecified severity; E11.621 Type 2 diabetes mellitus with foot ulcer; C82.82 Other types of follicular lymphoma, intrathoracic lymph nodes

== ENCOUNTER 2024-01-31 11:27 | Observation (INO) ==
[2024-01-31 13:23] LABS: Basophils # (auto) 0.05 K/uL (0.00-0.20); Basophils % (auto) 0.4 %; Eosinophils # (auto) 0.49 K/uL (0.00-0.50); Eosinophils % (auto) 4.3 %; Hematocrit (blood only) 43.2 % (37.0-47.0); Hemoglobin 14.3 g/dl (12.0-16.0); Immature Granulocytes # (auto) 0.03 K/uL (0.01-0.20); Immature Granulocytes % (auto) 0.3 %; Lymphocytes # (auto) 2.23 K/uL (1.20-3.40); Lymphocytes % (auto) 19.8 %; Mean Corpuscular Hemoglobin 27.8 pg (25.0-34.0); Mean Corpuscular Hgb Conc 33.1 g/dL (32.0-36.0); Mean Corpuscular Volume 83.9 fL (80.0-100.0); Mean Platelet Volume 10.4 fL (9.4-12.4); Monocytes # (auto) 0.67 K/uL (0.11-0.59); Monocytes % (auto) 5.9 %; Neutrophils # (auto) 7.81 K/uL (1.40-6.50); Neutrophils % (auto) 69.3 %; Platelet Count 354 K/uL (130-400); RDW Coefficient of Variation 14.5 % (11.5-14.5); RDW Standard Deviation 44.3 fL (36.4-46.3); Red Blood Count 5.15 M/uL (4.20-5.40); White Blood Count 11.28 K/ul (4.8-10.8)
[2024-01-31 13:45] LABS: Alanine Aminotransferase 15 U/L (7-52); Albumin Globulin Ratio 1.2 (0.9-2); Albumin Level 4.4 gm/dl (3.4-5.0); Alkaline Phosphatase 91 U/L (34-104); Anion Gap 8 (3-11); Aspartate Aminotransferase 17 U/L (13-39); BUN Creatinine Ratio 21.4 (10-20); Bilirubin,Total 0.5 mg/dl (0.2-1.0); Blood Urea Nitrogen 30 mg/dl (6-23); Calcium 9.6 mg/dl (8.6-10.3); Carbon Dioxide 33 mmol/L (21-32); Chloride 98 mmol/L (98-107); Est GFR (African American) 46.9 ml/min; Est GFR (Non-African American) 40.5 ml/min; Globulin 3.6 gm/dl (2.5-4.0); Glucose 100 mg/dl (70-99(Fasting)); Potassium 3.4 mmol/L (3.5-5.1); Sodium 139 mmol/L (136-145)
--- NOTE | 2024-01-31 14:18 | Emergency Department Note ---
History of Present Illness General Chief complaint: Leg Injury/Pain Stated complaint: FLUID GAIN, LEG AND BACK PAIN Time Seen by Provider: 01/31/24 14:00 Source: patient, RN notes reviewed and old records reviewed (Outpatient visit from today from primary care visit) Mode of arrival: ambulatory Limitations: no limitations History of Present Illness Maximum Pain Intensity: 8 This patient is a 63-year-old female who has a history of a significantly large pannus that tends to get infected and CHF, comes in with increasing swelling of her pannus and redness. She was seen by her primary doctor today for follow-up for recent hospitalization. She had finished her antibiotic she is still on Bumex 2 mg twice daily. She is missed no dosage. No dyspnea on exertion beyond her baseline no shortness of breath at rest she had a cough and runny nose yesterday but none today no fever or chills no fall or trauma no chest pain. No bowel or bladder problems. She has gained 20 pounds in the last week. Her doctor sent her over here for diuresis Home Medications Medication Instructions Recorded Confirmed Type fluticasone 250 mcg-salmeterol 50 1 inh inhalation BID #1 inhaler 06/25/21 01/31/24 Rx mcg/dose blistr powdr for inhalation (Advair Diskus) cholecalciferol (vitamin D3) 50 2,000 unit PO TID #270 caps 07/18/21 01/31/24 Rx mcg (2,000 unit) capsule (Vitamin D3) acetaminophen 500 mg tablet 1,000 mg (2 x 500 mg) PO Q4H PRN 09/16/21 01/31/24 Rx fever or pain #90 tabs calcium carbonate (Tums) 900 mg PO QAM 03/03/22 01/31/24 History cyanocobalamin (vitamin B-12) 1,000 mcg PO QAM 03/03/22 01/31/24 History 1,000 mcg tablet (Vitamin B-12) albuterol sulfate 2.5 mg/3 mL 2.5 mg (3 mL) inhalation Q6H PRN 06/25/23 01/31/24 Rx (0.083 %) solution for nebulization Shortness Of Breath #90 mL aspirin 81 mg tablet,delayed 81 mg PO QAM 06/25/23 01/31/24 History release duloxetine 60 mg capsule,delayed 60 mg PO BID 06/25/23 01/31/24 History release (Cymbalta) diclofenac sodium 1 % topical gel 4 g EXT QID #1 tube 08/30/23 01/31/24 Rx (Voltaren Arthritis Pain) nystatin 100,000 unit/gram topical 1 applic topical TID PRN yeast 08/30/23 01/31/24 Rx powder rash under breasts, abdominal skin folds #30 grams allopurinol 100 mg tablet 100 mg PO BID #180 tabs 09/21/23 01/31/24 Rx CPAP Supplies #1 ea 09/28/23 01/31/24 Rx CPAP Machine #1 ea 09/29/23 01/31/24 Rx buspirone 15 mg tablet 15 mg PO UD 10/20/23 01/31/24 History cetirizine 10 mg tablet (Zyrtec) 10 mg PO BID 10/20/23 01/31/24 History losartan 25 mg tablet 25 mg PO QAM 10/20/23 01/31/24 History spironolactone 50 mg tablet 25 mg (1/2 x 50 mg) PO BID #0 tabs 11/05/23 01/31/24 Rx empagliflozin 10 mg tablet 10 mg PO QAM #90 tabs 12/02/23 01/31/24 Rx (Jardiance) multivitamin 1 tab PO QAM #90 tabs 12/20/23 01/31/24 Rx gabapentin 400 mg capsule 400 mg PO QID #360 caps 12/24/23 01/31/24 Rx hydroxyzine HCl 25 mg tablet 25 mg PO HS 12/24/23 01/31/24 History potassium chloride 20 mEq 20 meq PO QAM 12/24/23 01/31/24 History tablet,extended release(part/cryst) (Klor-Con M) metoprolol succinate 50 mg 50 mg PO DAILY #90 tabs 12/27/23 01/31/24 Rx tablet,extended release 24 hr bupropion HCl 300 mg 24 hr tablet, 300 mg PO QAM 12/29/23 01/31/24 History extended release (Wellbutrin XL) pantoprazole 40 mg tablet,delayed 40 mg PO BID 12/29/23 01/31/24 History release (Protonix) sucralfate 1 gram tablet (Carafate) 1 g PO AC PRN heartburn/stomach 12/29/23 01/31/24 History upset tramadol 50 mg tablet 50 mg PO Q6H PRN pain, for initial 12/29/23 01/31/24 Rx therapy, max 4tabs/day #5 tabs montelukast 10 mg tablet 10 mg PO QPM #90 tabs 01/03/24 01/31/24 Rx (Singulair) albuterol sulfate 90 mcg/actuation 2 puff inhalation Q4H PRN 01/04/24 01/31/24 Rx aerosol inhaler (Ventolin HFA) Shortness Of Breath Or Wheezing #18 grams buspirone 5 mg tablet 5 mg PO UD 01/06/24 01/31/24 History epinephrine 0.3 mg/0.3 mL 0.3 mg IM UD PRN anaphylaxis 01/06/24 01/31/24 History injection, auto-injector nystatin 100,000 unit/gram topical 1 applic topical BID PRN Rash 01/06/24 01/31/24 History cream famotidine 20 mg tablet (Pepcid) 20 mg PO HS #90 tabs 01/10/24 01/31/24 Rx bumetanide 1 mg tablet 2 mg (2 x 1 mg) PO BID #360 tabs 01/20/24 01/31/24 Rx Allergies Allergy/AdvReac Type Severity Reaction Status Date / Time Corticosteroids Allergy Severe Anaphylaxis Unverified 01/31/24 10:45 (Glucocorticoids) dog dander Allergy Intermediate Rash Verified 01/31/24 10:45 morphine Allergy Intermediate mouth and Verified 01/31/24 10:45 face swells Penicillins Allergy Intermediate rash/hives Verified 01/31/24 10:45 adhesive Allergy Mild Skin rash Verified 01/31/24 10:45 localized zolpidem Allergy Unknown Unknown Verified 01/31/24 10:45 pregabalin AdvReac Intermediate "makes Verified 01/31/24 10:45 goofy" Past Med/Surg History Problem List (Updated 01/31/24 @ 21:41 by Jevon Ng MD) Weakness (Acute) Weight gain (Acute) CHF (congestive heart failure) (Acute) Panniculitis (Acute) Acute kidney injury superimposed on CKD Obesity (Acute) Failure of outpatient treatment (Acute) Cellulitis (Acute) Supraclavicular lymphadenopathy Acute on chronic heart failure with preserved ejection fraction Open wound of abdomen (Acute) Morbid obesity HAYES (dyspnea on exertion) (Acute) CKD (chronic kidney disease) stage 3, GFR 30-59 ml/min (Acute) Acute exacerbation of CHF (congestive heart failure) (Acute) Cellulitis (Acute) Cellulitis of suprapubic region Acute on chronic heart failure VARINDER (acute kidney injury) Osteoarthritis of hip Constipation Lymphoma Hip pain, right Failure of outpatient treatment (Acute) CRF (chronic renal failure) (Acute) Edema of both lower extremities (Acute) Fluid overload (Acute) Edema of abdominal wall (Acute) Ulcer of both feet Volume overload Hx MRSA infection 09/2021 s/p left knee infection > resolved > continues with doxycycline daily for prevention Lymphadenopathy of left cervical region Urticaria Chronic ulcer of left foot with fat layer exposed Diabetic foot ulcer (Acute) Diabetes mellitus type 2 with neurological manifestations Candidiasis of skin Solitary kidney, congenital Bilateral hip pain Low back pain Weakness (Acute) Lower extremity edema (Acute) CHF (congestive heart failure) (Acute) Abdominal pannus Fatty liver Dependent lymphedema Stage 3b chronic kidney disease Anemia reason for procedure. iron infusions recently. 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 Other ovarian cyst, left side Vitamin D deficiency Peripheral neuropathy Lumbar spinal stenosis 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- DISCOVERED WITH INCIDENTAL IMAGING Gout CKD (chronic kidney disease) stage 3, GFR 30-59 ml/min monitoring Chronic back pain Acid reflux Medical History Mast cell disease B-cell lymphoma Hx-TIA (transient ischemic attack) 2017 > ASA for prevention > no residual effects Hx of sepsis 09/2021 r/t left knee infection Hypertension Lumbar spinal stenosis Arthritis Allergic rhinitis Gout Other ovarian cyst, left side present, just monitoring Acid reflux Severe obstructive sleep apnea cpap Stage 3 chronic kidney disease follows with Dr. Wood Fatty liver CHF (congestive heart failure) follows with Ashlyn Griffin Solitary kidney, congenital Diabetes mellitus, type 2 Ulcer of foot one ulcer present to bottom of bilat feet > follows with wound clinic at [place], improving per pt Chronic ulcer of right foot with fat layer exposed sees wound clinic > bilat feet at present History of COVID-19 09/2021 Iron deficiency anemia Venous stasis of both lower extremities MDD (major depressive disorder), recurrent episode, moderate Ambulatory dysfunction uses walker Depression with anxiety Degenerative joint disease, shoulder, right Lymphedema left leg and abdomen / chronic Asthma well controlled, rare res inh use Hyperlipidemia no meds Surgical History Hx of biopsy (12/29/23) Left Neck Lymph Node Biopsy(Left) - Yohan Maldonado, DO, FACS History of insertion of central venous access port removed in 2022 History of revision of total replacement of left knee joint History of cardiac cath remote hx over 20 yrs ago, no stents History of colonoscopy History of esophagogastroduodenoscopy (EGD) History of bilateral knee replacement (10/16/22) H/O knee surgery (12/2021) L knee washout w/ polyexchange S/P tonsillectomy and adenoidectomy Status post total shoulder arthroplasty (10/17/18) right History of carpal tunnel release B/L H/O ventral hernia repair History of appendectomy History of cholecystectomy Family History Mother Diabetes Coronary heart disease Myocardial infarction S/P CABG x 3 Hypertension Gallbladder disease Sister Hodgkins lymphoma Brother Kidney disease Grandmother Breast cancer Aunt Ovarian cancer Father , 02/11/20. 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: No Beliefs That Will Affect Care: None marital status: marital status details: ; lives with parents & 1 daughter Current Living Situation: Parent and Family Current Living Situation Comment: Lives with mother and daughter current occupational status: disabled Other Information That Helps Us Care for You: No other: worked in [employer] in [employer]; 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 Feels Safe at Home: Yes Safety Concerns: Feels Safe At This Time Childhood Exposure to Second-Hand Smoke: No Diet: regular Diet Comment: regular caffeine: No Dental Care, Regularly: No Physical Activity Frequency: Does not Exercise Seatbelt Use: always Sunscreen Use: Yes Assistive Devices: CPAP, Denture - Upper, Glasses and Walker Review of Systems A total of 10 systems reviewed and were otherwise negative Physical Exam Vital Signs Vital Signs - 24 hr 01/31/24 11:56 Temperature 37 C Temperature Source Temporal Artery Scan Pulse Rate 78 Respiratory Rate 18 Respiratory Effort / Characteristics Non-Labored Spontaneous Respiratory Depth Normal Respiratory Pattern Regular Blood Pressure 122/80 Blood Pressure Mean 94 Blood Pressure Position Sitting Pulse Oximetry 98 Oxygen Delivery Method Room Air Sepsis Recent Fever Within 48 Hours No Sepsis New/Unexplained Change in Mental Status No Sepsis Action Taken by Nursing No Action Required General: Well developed well nourished older female who appears in no acute distress, breathing comfortably on room air. Normal speech HEENT: Normal cephalic atraumatic. Pupils are equal round and reactive to light. Extraocular movements are intact. Oropharynx is pink with moist mucous membranes. No swelling of the mouth lips or tongue. Neck: Supple with a midline trachea. No meningeal signs or stiffness, no JVD or bruits. No Stridor. Chest: Clear to auscultation bilaterally. No wheezes or rhonchi. No increased work of breathing. Heart: Regular rate and rhythm without murmurs or gallops. Abdomen: Soft nontender, nondistended without rebound guarding or rigidity. She has a very large pannus which extends down to almost her knees. It is red and has skin breakdown on it. It is tender. Extremities: No cyanosis clubbing or edema. No calf tenderness or assymetry Spine/Back. Non tender to palpation. No CVA tenderness Skin: Good turgor without rashes. Neurologic exam: Cranial nerves two through 12 are intact. Motor and sensation are intact and symmetrical throughout. Course Administered Medications Allopurinol (Allopurinol 100 Mg Tab) 100 mg PO BID LEOBARDO Stop: 03/01/24 20:59 Last Admin: 01/31/24 20:34 Dose: 100 mg Documented By: SRW Buspirone HCl (Buspirone 15 Mg Tab) 15 mg PO TID [facility] Stop: 03/01/24 20:59 Last Admin: 01/31/24 20:34 Dose: 15 mg Documented By: SRW Buspirone HCl (Buspirone 5 Mg Tab) 5 mg PO TID [facility] Stop: 03/01/24 20:59 Last Admin: 01/31/24 20:34 Dose: 5 mg Documented By: SRW Duloxetine HCl (Duloxetine Hcl 60 Mg Cap) 60 mg PO BID [facility] Stop: 03/01/24 20:59 Last Admin: 01/31/24 20:34 Dose: 60 mg Documented By: SRW Famotidine (Famotidine 20 Mg Tab) 20 mg PO HS [facility] Stop: 03/01/24 20:59 Last Admin: 01/31/24 20:34 Dose: 20 mg Documented By: SRW Gabapentin (Gabapentin 400 Mg Cap) 400 mg PO QID [facility] Stop: 03/01/24 20:59 Last Admin: 01/31/24 20:35 Dose: 400 mg Documented By: SRW Heparin Sodium (Porcine) (Heparin Sod 5,000 Unit/0.5 Ml Vial) 7,500 units SQ Q12 [facility] Stop: 03/01/24 20:59 Last Admin: 01/31/24 20:41 Dose: 7,500 units Documented By: SRW Hydroxyzine HCl (Hydroxyzine Hcl 25 Mg Tab) 25 mg PO HS [facility] Stop: 03/01/24 20:59 Last Admin: 01/31/24 20:35 Dose: 25 mg Documented By: SRW Cefepime HCl 2,000 mg/ Syringe 20 mls @ 5 mls/min IV Q8H [facility]; Protocol Stop: 02/07/24 21:59 Last Admin: 01/31/24 20:37 Dose: 5 mls/min Documented By: SRW Insulin Aspart (Insulin Aspart Per Unit Charge) 0 units SC ACHS [facility] Stop: 03/01/24 16:29 Last Admin: 01/31/24 20:35 Dose: Not Given Documented By: Admin: 01/31/24 18:05 Dose: Not Given Documented By: VLR Nystatin (Nystatin Powder 15gm Btl) 1 appln EXT TID [facility] Stop: 03/01/24 20:59 Last Admin: 01/31/24 20:35 Dose: 1 appln Documented By: GREG Pantoprazole Sodium (Pantoprazole 40 Mg Tab) 40 mg PO BID [facility] Stop: 03/01/24 20:59 Last Admin: 01/31/24 20:34 Dose: 40 mg Documented By: GREG Spironolactone (Spironolactone 25 Mg Tab) 25 mg PO BID17 [facility] Stop: 03/01/24 20:59 Last Admin: 01/31/24 20:34 Dose: 25 mg Documented By: GREG Discontinued Medications Bumetanide 2 mg/ Syringe 8 mls @ 4 mls/min IV NOW STA Stop: 01/31/24 14:18 Last Admin: 01/31/24 15:01 Dose: 4 mls/min Documented By: STEVIE Cefepime HCl (Maxipime) 20 mls @ 5 mls/min IV NOW STA Stop: 01/31/24 14:20 Last Admin: 01/31/24 15:40 Dose: 5 mls/min Documented By: STEVIE Daptomycin 425 mg/ Syringe 8.5 mls @ 4.25 mls/min IV NOW STA; Protocol Stop: 01/31/24 14:20 Last Admin: 01/31/24 15:02 Dose: 4.25 mls/min Documented By: STEVIE Bumetanide 2 mg/ Syringe 8 mls @ 4 mls/min IV ONE ONE Stop: 01/31/24 21:01 Last Admin: 01/31/24 20:37 Dose: 4 mls/min Documented By: GREG Potassium Chloride (Potassium Chloride Crtab 20 Meq Tabcr) 40 meq PO NOW STA Stop: 01/31/24 14:31 Last Admin: 01/31/24 15:40 Dose: 40 meq Documented By: STEVIE Medical Decision Making Differential Diagnosis Panniculitis, cellulitis, CHF, electrolyte or metabolic abnormality, renal failure, sepsis Medical Records Attestation: I reviewed the patient's medical records. Home Medications Current Medication List: was personally reviewed by me Laboratory Data Attestation: I reviewed the patient's lab results. 01/31/24 12:47 01/31/24 19:44 Lab Results 01/31/24 Range/Units 12:47 WBC 11.28 H (4.8-10.8) K/ul RBC 5.15 (4.20-5.40) M/uL Hgb 14.3 (12.0-16.0) g/dl Hct 43.2 (37.0-47.0) % MCV 83.9 (80.0-100.0) fL MCH 27.8 (25.0-34.0) pg MCHC 33.1 (32.0-36.0) g/dL RDW Std Deviation 44.3 (36.4-46.3) fL RDW Coeff of Cleo 14.5 (11.5-14.5) % Plt Count 354 (130-400) K/uL MPV 10.4 (9.4-12.4) fL Immature Gran % (Auto) 0.3 % Neut % (Auto) 69.3 % Lymph % (Auto) 19.8 % Hitchcock % (Auto) 5.9 % Eos % (Auto) 4.3 % Baso % (Auto) 0.4 % Neut # (Auto) 7.81 H (1.40-6.50) K/uL Lymph # (Auto) 2.23 (1.20-3.40) K/uL Hitchcock # (Auto) 0.67 H (0.11-0.59) K/uL Eos # (Auto) 0.49 (0.00-0.50) K/uL Baso # (Auto) 0.05 (0.00-0.20) K/uL Immature Gran # (Auto) 0.03 (0.01-0.20) K/uL Sodium 139 (136-145) mmol/L Potassium 3.4 L (3.5-5.1) mmol/L Chloride 98 (98-107) mmol/L Carbon Dioxide 33 H (21-32) mmol/L Anion Gap 8 (3-11) BUN 30 H (6-23) mg/dl Creatinine 1.40 H (0.6-1.2) mg/dl Est Cr Clr Drug Dosing Not Reportable Est GFR ( Amer) 46.9 ml/min Est GFR (Non-Af Amer) 40.5 ml/min BUN/Creatinine Ratio 21.4 H (10-20) Glucose 100 H (70-99(Fasting)) mg/dl Calcium 9.6 (8.6-10.3) mg/dl Magnesium 1.6 L (1.7-2.4) mg/dl Total Bilirubin 0.5 (0.2-1.0) mg/dl AST 17 (13-39) U/L ALT 15 (7-52) U/L Alkaline Phosphatase 91 (34-104) U/L Troponin I High Sens 6.7 (0-14) pg/ml B-Natriuretic Peptide 13 (0-100) pg/ml Total Protein 8.0 (6.0-8.3) gm/dl Albumin 4.4 (3.4-5.0) gm/dl Globulin 3.6 (2.5-4.0) gm/dl Albumin/Globulin Ratio 1.2 (0.9-2) Imaging Data Attestation: I personally reviewed and interpreted this imaging study as follows: My Impression: Chest x-rayno acute infiltrate, failure, pneumothorax seen Radiologist's Impression: Chest X-Ray 01/31/24 14:07 XR chest 1V portable CLINICAL HISTORY: Congestive heart failure. COMPARISON STUDY: Chest CT October 29, 2023. Chest radiograph December 06, 2023. FINDINGS: Right shoulder arthroplasty is partially imaged. Lung volumes are normal. Lungs are clear. There is no pneumothorax or pleural effusion. Cardiac size is stable. Mediastinal contours are normal. There is no evidence for pulmonary edema. IMPRESSION: No acute cardiopulmonary findings. No change in appearance of the chest. ACT 112: Negative or not required by law. Electronically signed by: Biju Vergara M.D. 01/31/2024 2:28 PM ECG Data Attestation: I personally reviewed and interpreted this ECG as follows: Indication: + weakness Rate (beats per minute): 71 Rhythm: + normal sinus ECG Intervals/blocks: + Normal QRS, + Normal QT and + Normal HI ECG ST segments: + Normal ST segments ECG Findings: + Poor R wave progression and + Other (Nonspecific lateral T wave inversion); no PACs or no PVCs Comparison ECG Date: from (12/06/23) Change: the following changes noted (Possible lateral T wave changes) MDM Narrative This patient is a 63-year-old female who has a history of CHF and panniculitis comes in with exacerbation of both of these. She is a 20 pound weight gain her vital signs are stable she is afebrile but her pannus is red and swollen with skin breakdown. I did discuss case with Jos, our ED pharmacis,t and we have ordered IV daptomycin and IV cefepime based on previous history and visits. Also Bumex 2 mg IV. EKG shows some possible lateral T wave changes but no changes suggest acute STEMI. Her renal function is baseline her white counts mildly elevated. I did COVID test her as well. COVID testing was negative. I do think the patient needs to be admitted/observed for IV antibiotics and treatment of her panniculitis as well as IV diuresis. [facility] the [facility] will admit/observe the patient for these measures. 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: Orders placed in EMR for continuous cardiac monitoring call upon my evaluation patient noted to be in normal sinus rhythm rate of 70 Impression & Plan Panniculitis, CHF (congestive heart failure), Weight gain, Weakness Discharge Plan Visit Data Chief Complaint: Leg Injury/Pain Stated Complaint: FLUID GAIN, LEG AND BACK PAIN ED Provider: Jevon Ng Discharge Problem: Panniculitis, CHF (congestive heart failure), Weight gain, Weakness Patient Disposition: Admitted As Inpatient Discharge Instructions Interventions: ED Discharge Assessment Last Done: 01/31/24 15:59 Discharge Problem: CHF (congestive heart failure) Qualifiers: Heart failure type: unspecified Heart failure chronicity: acute on chronic Q ualified Code(s): I50.9 - Heart failure, unspecified
--- NOTE | 2024-01-31 14:26 | History & Physical Report ---
Date of Service January 31, 2024 Assessment & Plan (1) Acute on chronic heart failure with preserved ejection fraction: Plan: Admit to med/telemetry on pulse oximetry Currently stable nontoxic-appearing Presented with very similar presentation to last admission earlier this month for volume overload and concerns for possible panniculitis Has had approximately 20 LB weight gain since her discharge from our service on 01/20/2024 Reports compliance with home Bumex and spironolactone, however, she may need to reduce her home sodium and fluid intake moving forward Was given 20 mg IV Bumex in the ED prior to admission, will plan to continue with 2 mg IV Bumex twice daily 17 for now as she developed mild hypotension and VARINDER on 3 mg IV during her last admission Will plan to continue home spironolactone Continue Bales catheter for now while on IV diuretics due to baseline ambulatory function from her morbid obesity Monitor daily weight, intake/output every shift Heart healthy/DM type II diet with 2 g sodium and 1800 mL fluid restriction SQ heparin for DVT prophylaxis AM CBC, BMP, mag, PT/INR (2) Open wound of abdomen: Plan: Patient noted with ongoing skin breakdown in the folds of the abdomen worse on the left abdominal fold than right with surrounding erythema For now we will continue with cefepime/daptomycin although, her erythema could be more consistent with volume overload, difficult to tell at this point with her morbid obesity Will also order scheduled nystatin powder and wound care consult to follow during admission Monitor for improvement with current treatment plans (3) Hypokalemia: Plan: Potassium of 3.4 on arrival Will add on mag level time admission Likely due to ongoing home diuretic use Ordered 40 mEq p.o. KCl now prior to receiving 2 mg IV Bumex in the ED Will obtain repeat potassium level this evening Monitor daily renal function electrolytes appropriately (4) Diabetes mellitus type 2 with neurological manifestations: Plan: Monitor BSG ACHS goal is [id number] Will start conservative management for now she is not on insulin at home with CF of 50 and CR of 15 ACHS Hold Jardiance for now Adjust regimen as needed (5) CKD (chronic kidney disease) stage 3, GFR 30-59 ml/min: Plan: Creatinine currently stable at previous baseline of 1.4 Monitor daily renal function electrolytes as she had mild VARINDER during IV diuresis last admission (6) Severe obstructive sleep apnea: Plan: At bedtime CPAP/BiPAP ordered Plan The patient was discussed with Dr. Howell at the time of the admission History of Present Illness Chief Complaint: Lower extremity/abdominal swelling, recurrent pannus cellulitis Primary Care Provider: CARRIE Monaco Kriss is a 63-year-old female the past medical history significant for recurrent panniculitis, HFpEF, follicular lymphoma in situ, CKD, ANDRZEJ, asthma, previous CVA, and morbid obesity who presented to the [facility] ED from her PCPs office on 01/31/2024 due to concerns for recurrent CHF exacerbation and panniculitis. Patient had just been admitted to our service from 01/06/2024 - 01/20/2024 due to similar presentation with significant abdominal edema/erythema. During her admission she was treated with a course of daptomycin/cefepime for her panniculitis. She was diuresed with initial 3 mg IV Bumex twice daily but had complications of mild hypotension and elevated creatinine. She had a holiday off Bumex and midodrine on 01/17/2024 and was then resumed on 2 mg p.o. Bumex twice daily on 01/18/2024. Renal function remained at baseline after her diuretic holiday. She was standing by her PCP today after seen in their office for follow-up due to concerns for approximately 20 pound weight gain with recurrent abdominal wall edema/erythema. Patient remained stable in the ED. Labs were significant for a leukocytosis of 11 with neutrophil predominance of 7.8, stable renal function, potassium of 3.4, with high-sensitivity troponin and BNP in process. Chest x-ray was read as negative for acute findings. ECG showed normal sinus rhythm without acute changes compared to previous. Prior to admission the patient was given a dose of cefepime, daptomycin, and ordered 2 mg IV Bumex. Bales catheter was placed in the ED due to patient having limited mobility at baseline and will be requiring ongoing IV diuresis during this admission. Patient was sitting in bed in no acute distress at time of exam. Confirms that since her discharge on 01/20/2024 she has gained approximately 20-25 pounds, feels as though her swelling in the lower abdomen in the bilateral lower extremities recurred quickly. Confirms that she has been taking her 2 mg p.o. Bumex daily without recent missed doses. When asked about diet she states that she does not put extra salt on her food, states that she often cooks Pasta, ground beef, chicken for dinner. When asked if she had salt while cooking she confirms that she does but is unsure how much. She states that she normally drinks approximately 8 glasses of water a day as recommended by her funeral greeter. No recent fever/chills, chest pain, shortness of breath, productive cough, nausea/vomiting, dysuria/hematuria, diarrhea/constipation, or recent trauma. She confirms that she is a full code and want her daughter to make medical decisions for her if she cannot make them herself. Please refer to Dr. Howell's attestation for any changes to the treatment plan Allergies Allergy/AdvReac Type Severity Reaction Status Date / Time Corticosteroids Allergy Severe Anaphylaxis Unverified 01/31/24 10:45 (Glucocorticoids) dog dander Allergy Intermediate Rash Verified 01/31/24 10:45 morphine Allergy Intermediate mouth and Verified 01/31/24 10:45 face swells Penicillins Allergy Intermediate rash/hives Verified 01/31/24 10:45 adhesive Allergy Mild Skin rash Verified 01/31/24 10:45 localized zolpidem Allergy Unknown Unknown Verified 01/31/24 10:45 pregabalin AdvReac Intermediate "makes Verified 01/31/24 10:45 goofy" Home Medications Medication Instructions Recorded Confirmed Type fluticasone 250 mcg-salmeterol 50 1 inh inhalation BID #1 inhaler 06/25/21 01/31/24 Rx mcg/dose blistr powdr for inhalation (Advair Diskus) cholecalciferol (vitamin D3) 50 2,000 unit PO TID #270 caps 07/18/21 01/31/24 Rx mcg (2,000 unit) capsule (Vitamin D3) acetaminophen 500 mg tablet 1,000 mg (2 x 500 mg) PO Q4H PRN 09/16/21 01/31/24 Rx fever or pain #90 tabs calcium carbonate (Tums) 900 mg PO QAM 03/03/22 01/31/24 History cyanocobalamin (vitamin B-12) 1,000 mcg PO QAM 03/03/22 01/31/24 History 1,000 mcg tablet (Vitamin B-12) albuterol sulfate 2.5 mg/3 mL 2.5 mg (3 mL) inhalation Q6H PRN 06/25/23 01/31/24 Rx (0.083 %) solution for nebulization Shortness Of Breath #90 mL aspirin 81 mg tablet,delayed 81 mg PO QAM 06/25/23 01/31/24 History release duloxetine 60 mg capsule,delayed 60 mg PO BID 06/25/23 01/31/24 History release (Cymbalta) diclofenac sodium 1 % topical gel 4 g EXT QID #1 tube 08/30/23 01/31/24 Rx (Voltaren Arthritis Pain) nystatin 100,000 unit/gram topical 1 applic topical TID PRN yeast 08/30/23 01/31/24 Rx powder rash under breasts, abdominal skin folds #30 grams allopurinol 100 mg tablet 100 mg PO BID #180 tabs 09/21/23 01/31/24 Rx CPAP Supplies #1 ea 09/28/23 01/31/24 Rx CPAP Machine #1 ea 09/29/23 01/31/24 Rx buspirone 15 mg tablet See Rx Instructions .Route .COMPLEX 10/20/23 01/31/24 History cetirizine 10 mg tablet (Zyrtec) 10 mg PO BID 10/20/23 01/31/24 History losartan 25 mg tablet 25 mg PO QAM 10/20/23 01/31/24 History spironolactone 50 mg tablet 25 mg (1/2 x 50 mg) PO BID #0 tabs 11/05/23 01/31/24 Rx empagliflozin 10 mg tablet 10 mg PO QAM #90 tabs 12/02/23 01/31/24 Rx (Jardiance) multivitamin 1 tab PO QAM #90 tabs 12/20/23 01/31/24 Rx gabapentin 400 mg capsule 400 mg PO QID #360 caps 12/24/23 01/31/24 Rx hydroxyzine HCl 25 mg tablet 25 mg PO HS 12/24/23 01/31/24 History potassium chloride 20 mEq 20 meq PO QAM 12/24/23 01/31/24 History tablet,extended release(part/cryst) (Klor-Con M) metoprolol succinate 50 mg 50 mg PO DAILY #90 tabs 12/27/23 01/31/24 Rx tablet,extended release 24 hr bupropion HCl 300 mg 24 hr tablet, 300 mg PO QAM 12/29/23 01/31/24 History extended release (Wellbutrin XL) pantoprazole 40 mg tablet,delayed 40 mg PO BID 12/29/23 01/31/24 History release (Protonix) sucralfate 1 gram tablet (Carafate) 1 g PO AC PRN heartburn/stomach 12/29/23 01/31/24 History upset tramadol 50 mg tablet 50 mg PO Q6H PRN pain, for initial 12/29/23 01/31/24 Rx therapy, max 4tabs/day #5 tabs montelukast 10 mg tablet 10 mg PO QPM #90 tabs 01/03/24 01/31/24 Rx (Singulair) albuterol sulfate 90 mcg/actuation 2 puff inhalation Q4H PRN 01/04/24 01/31/24 Rx aerosol inhaler (Ventolin HFA) Shortness Of Breath Or Wheezing #18 grams buspirone 5 mg tablet See Rx Instructions .Route .COMPLEX 01/06/24 01/31/24 History epinephrine 0.3 mg/0.3 mL 0.3 mg IM UD PRN anaphylaxis 01/06/24 01/31/24 History injection, auto-injector nystatin 100,000 unit/gram topical 1 applic topical BID PRN Rash 01/06/24 01/31/24 History cream famotidine 20 mg tablet (Pepcid) 20 mg PO HS #90 tabs 01/10/24 01/31/24 Rx bumetanide 1 mg tablet 2 mg (2 x 1 mg) PO BID #360 tabs 01/20/24 01/31/24 Rx Past Med/Surg History Problem List (Updated 01/31/24 @ 14:18 by Jevon Ng MD) Weight gain (Acute) CHF (congestive heart failure) (Acute) Panniculitis (Acute) Acute kidney injury superimposed on CKD Obesity (Acute) Failure of outpatient treatment (Acute) Cellulitis (Acute) Supraclavicular lymphadenopathy Acute on chronic heart failure with preserved ejection fraction Open wound of abdomen (Acute) Morbid obesity HAYES (dyspnea on exertion) (Acute) CKD (chronic kidney disease) stage 3, GFR 30-59 ml/min (Acute) Acute exacerbation of CHF (congestive heart failure) (Acute) Cellulitis (Acute) Cellulitis of suprapubic region Acute on chronic heart failure VARINDER (acute kidney injury) Osteoarthritis of hip Constipation Lymphoma Hip pain, right Failure of outpatient treatment (Acute) CRF (chronic renal failure) (Acute) Edema of both lower extremities (Acute) Fluid overload (Acute) Edema of abdominal wall (Acute) Ulcer of both feet Volume overload Hx MRSA infection 09/2021 s/p left knee infection > resolved > continues with doxycycline daily for prevention Lymphadenopathy of left cervical region Urticaria Chronic ulcer of left foot with fat layer exposed Diabetic foot ulcer (Acute) Diabetes mellitus type 2 with neurological manifestations Candidiasis of skin Solitary kidney, congenital Bilateral hip pain Low back pain Weakness (Acute) Lower extremity edema (Acute) CHF (congestive heart failure) (Acute) Abdominal pannus Fatty liver Dependent lymphedema Stage 3b chronic kidney disease Anemia reason for procedure. iron infusions recently. 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 Other ovarian cyst, left side Vitamin D deficiency Peripheral neuropathy Lumbar spinal stenosis 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- DISCOVERED WITH INCIDENTAL IMAGING Gout CKD (chronic kidney disease) stage 3, GFR 30-59 ml/min monitoring Chronic back pain Acid reflux Medical History Mast cell disease B-cell lymphoma Hx-TIA (transient ischemic attack) 2017 > ASA for prevention > no residual effects Hx of sepsis 09/2021 r/t left knee infection Hypertension Lumbar spinal stenosis Arthritis Allergic rhinitis Gout Other ovarian cyst, left side present, just monitoring Acid reflux Severe obstructive sleep apnea cpap Stage 3 chronic kidney disease follows with Dr. Nina Piña liver CHF (congestive heart failure) follows with Ashlyn Griffin Solitary kidney, congenital Diabetes mellitus, type 2 Ulcer of foot one ulcer present to bottom of bilat feet > follows with wound clinic at [place], improving per pt Chronic ulcer of right foot with fat layer exposed sees wound clinic > bilat feet at present History of COVID-19 09/2021 Iron deficiency anemia Venous stasis of both lower extremities MDD (major depressive disorder), recurrent episode, moderate Ambulatory dysfunction uses walker Depression with anxiety Degenerative joint disease, shoulder, right Lymphedema left leg and abdomen / chronic Asthma well controlled, rare res inh use Hyperlipidemia no meds Surgical History Hx of biopsy (12/29/23) Left Neck Lymph Node Biopsy(Left) - Yohan Maldonado, DO, FACS History of insertion of central venous access port removed in 2022 History of revision of total replacement of left knee joint History of cardiac cath remote hx over 20 yrs ago, no stents History of colonoscopy History of esophagogastroduodenoscopy (EGD) History of bilateral knee replacement (10/16/22) H/O knee surgery (12/2021) L knee washout w/ polyexchange S/P tonsillectomy and adenoidectomy Status post total shoulder arthroplasty (10/17/18) right History of carpal tunnel release B/L H/O ventral hernia repair History of appendectomy History of cholecystectomy Family History Mother Diabetes Coronary heart disease Myocardial infarction S/P CABG x 3 Hypertension Gallbladder disease Sister Hodgkins lymphoma Brother Kidney disease Grandmother Breast cancer Aunt Ovarian cancer Father , 02/11/20. Peripheral vascular disease Daughter Diabetes Other Cancer No family history of adverse response to anesthesia Denies family history of Prostate cancer Colorectal cancer Social History Smoking Status: Former smoker Tobacco Type: Cigarettes Age Started Using Tobacco: 22; Age Quit Using Tobacco: 24; Second Hand Exposure: No; Do You Dip or Chew Tobacco: No; Hx Alcohol Use: No Hx Substance Use: No Preferred Language: Syriac 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 Ability: Effective Visual Impairment: Limited Hearing Ability: Normal Zigzag Elastic Attacher Required: No Beliefs That Will Affect Care: None marital status: marital status details: ; lives with parents & 1 daughter Current Living Situation: Parent and Family Current Living Situation Comment: Lives with mother and daughter current occupational status: disabled other: 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 [employer]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; 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 Feels Safe at Home: Yes Childhood Exposure to Second-Hand Smoke: No Diet: regular Diet Comment: regular caffeine: No Dental Care, Regularly: No Physical Activity Frequency: Does not Exercise Seatbelt Use: always Sunscreen Use: Yes Assistive Devices: CPAP, Glasses, Nebulizer and Walker Physical Exam Physical Exam: Physical Exam: General: In no acute distress, stated age, chronically ill-appearing but nontoxic HEENT: Normocephalic, atraumatic, no scleral icterus, pupils around round, symmetrical, and reactive to light, moist mucus membranes, trachea midline, no thyromegaly Chest/Pulm: No respiratory distress, symmetrical chest expansion, clear breath sounds throughout Cardiac: RRR, no murmurs noted Abdomen: Obese abdomen with significant swelling and skin thickening of the lower abdomen with signs of mild erythema and skin breakdown in the abdominal folds consistent with fungal infection, normoactive bowel sounds, soft and nontender to palpation throughout Musculoskeletal: Symmetrical and without signs of acute trauma, upper and lower extremities with full ROM, no atrophy, spasticity, or flaccidity Extremities: Radial, dorsalis pedis, and posterior tibial pulses are intact and symmetrical, 1+ pitting edema in the bilateral lower extremities Skin: Multiple healing sites of skin breakdown on the chest due to chronic itching appear to be non-infected and not currently draining, abdominal skin findings as described above Neuro: Alert and oriented to person, place, month, year, and president, no focal defects, no tremors noted Psych: No acute distress, calm and cooperative during the exam Results & Data Results & Data Vital Signs (Past 12 Hours) Vital Signs Temp Pulse Resp BP Pulse Ox O2 Del Method 01/31/24 11:56 37 C 78 18 122/80 98 Room Air Laboratory Results Abnormal lab results 01/31/24 Range/Units 12:47 WBC 11.28 H (4.8-10.8) K/ul Neut # (Auto) 7.81 H (1.40-6.50) K/uL [place] # (Auto) 0.67 H (0.11-0.59) K/uL Potassium 3.4 L (3.5-5.1) mmol/L Carbon Dioxide 33 H (21-32) mmol/L BUN 30 H (6-23) mg/dl Creatinine 1.40 H (0.6-1.2) mg/dl BUN/Creatinine Ratio 21.4 H (10-20) Glucose 100 H (70-99(Fasting)) mg/dl Diagnostic Findings Chest X-Ray 01/31/24 14:07 XR chest 1V portable CLINICAL HISTORY: Congestive heart failure. COMPARISON STUDY: Chest CT October 29, 2023. Chest radiograph December 06, 2023. FINDINGS: Right shoulder arthroplasty is partially imaged. Lung volumes are normal. Lungs are clear. There is no pneumothorax or pleural effusion. Cardiac size is stable. Mediastinal contours are normal. There is no evidence for pulmonary edema. IMPRESSION: No acute cardiopulmonary findings. No change in appearance of the chest. ACT 112: Negative or not required by law. Electronically signed by: Biju Vergara M.D. 01/31/2024 2:28 PM ECG Additional Comments: Normal sinus rhythm without acute ST segment or T wave changes compared to previous Code Status & VTE Plan Code Status Full code VTE Prophylaxis Plan VTE Prophylaxis will be ordered: Yes Supervising Physician Co-Signing Physician Notes Patient seen and examined, chart reviewed, case discussed with Crow Andrew PA-C and I agree with the assessment and plan as above except as otherwise noted Labs and images reviewed Kriss Tristan is a 63-year-old female with a past medical history of B-cell lymphoma, TIA, lumbar stenosis, severe ANDRZEJ, CKD 3, CHF, DM 2, MDD, depression/anxiety, asthma, lymphedema and panniculitis who presents to the ER on PCP referral after recent hospitalization for 20 pound weight gain and increasing erythema of her pannus. She was recently discharged 01/20/2024 after an admission for abdominal wall panniculitis despite chronic doxycycline MRSA prophylaxis due to prior knee infection, she completed course of cefepime/daptomycin. She was also treated for acute on chronic HFpEF but was poorly tolerant of Bumex and required midodrine adjunct to support blood pressur e; creatinine stabilized on Bumex twice daily. At that time supraclavicular lymphadenopathy with pathology reporting follicular lymphoma in situ was noted, patient was pending outpatient follow-up with oncology for further. On ER assessment she has a recurrent leukocytosis creatinine is at 1.48 which is within her baseline approximately 1.38-1.7. Patient has had difficulty voiding frequently due to her pannus, ambulation, and is at risk of skin breakdown with her pannus. Bales was placed in the ER for skin protection while diuresing. Chest x-ray without overt edema. At the bedside panniculitis with demarcated erythema stretching bilaterally, and rising towards the superior abdomen on the left side is present, scattered ulcerations are present on the left. No purulence. There is prominent tenderness to palpation and warmth, greatly increased in the last few days per patient. Panniculitis ? Infectious versus inflammatory. Does have a leukocytosis, demarcated erythema, and increased warmth however her leukocytosis has no left shift. May also be inflammatory change from significant swelling/stretching. Given recent history will treat empirically with antibiotics and trend CRP at this time. For her swelling and 20 pounds of weight gain/CHF component agree with Cautious diuresis however she does not have an elevated BNP or significant pulmonary component, suspect this is more gravity dependent edema so we will have to diurese slowly with fluid mobilization strategies as tolerated. She is pending outpatient follow-up for a panniculectomy once stable per pt. Agree with above PG Care Time/CCT Total # of Minutes Spent Total Time Spent with Patient: Total time spent is greater than 50% in coordination of care (as documented) at patient's floor/unit and/or counseling patient: Coding [place] [address] INT INP/OBS CARE 3/75MIN Patient Type Established History Comprehensive Exam Comprehensive Medical Decision Making High Complexity Diagnoses Acute on chronic heart failure with preserved ejection fraction I50.33 Open wound of abdomen, subsequent encounter S31.109D Encounter type: subsequent encounter Hypokalemia E87.6 Diabetes mellitus type 2 with neurological manifestations E11.49 CKD (chronic kidney disease) stage 3, GFR 30-59 ml/min N18.31 Chronic kidney disease stage 3 subtype: stage 3a (GFR 45-59) Severe obstructive sleep apnea G47.33 (2) Open wound of abdomen Encounter type: subsequent encounter Qualified Code(s): S31.109D - Unspecified open wound of abdominal wall, unspecified quadrant without penetration into peritoneal cavity, subsequent encounter (5) CKD (chronic kidney disease) stage 3, GFR 30-59 ml/min Chronic kidney disease stage 3 subtype: stage 3a (GFR 45-59) Qualified Code(s): N18.31 - Chronic kidney disease, stage 3a
--- NOTE | 2024-01-31 14:29 | XRay Report ---
XR chest 1V portable CLINICAL HISTORY: Congestive heart failure. COMPARISON STUDY: Chest CT October 29, 2023. Chest radiograph December 06, 2023. FINDINGS: Right shoulder arthroplasty is partially imaged. Lung volumes are normal. Lungs are clear. There is no pneumothorax or pleural effusion. Cardiac size is stable. Mediastinal contours are normal . There is no evidence for pulmonary edema. IMPRESSION: No acute cardiopulmonary findings. No change in appearance of the chest. ACT 112: Negative or not required by law. Electronically signed by: Biju Vergara M.D. 01/31/2024 2:28 PM
[2024-01-31 14:42] LABS: Troponin I High Sensitivity 6.7 pg/ml (0-14)
[2024-01-31] MEDS ORDERED: CARBOHYDRATES FOR HYPOGLYCEMIA PO PRN (14:58)
[2024-01-31] MEDS ORDERED: GLUCAGON FOR INJ 1 MG VIAL SQ PRN (14:58)
[2024-01-31] MEDS ORDERED: GLUCOSE 10 TAB/TUBE PO PRN (14:58)
[2024-01-31] MEDS ORDERED: GLUCOSE 40% GEL 15 GM TUBE PO PRN (14:58)
[2024-01-31] MEDS ORDERED: DEXTROSE 50% 50 ML SYRINGE IV PRN (14:58)
[2024-01-31] MEDS: BUMETANIDE 2 MG in SYRINGE 0 ML IV STA (15:01)
[2024-01-31] MEDS: DAPTOmycin 425 MG in SYRINGE 0 ML IV STA (15:02)
[2024-01-31 15:30] LABS: Appearance Urine Clear (Clear); Bilirubin Urine Negative (Negative); Blood Urine Negative (Negative); Color Urine Yellow; Glucose Urine UA 2+ (Negative); Ketones Urine Negative (Negative); Leukocyte Esterase Urine Negative (Negative); Nitrite Urine Negative (Negative); Protein Urine Negative (Negative); Specific Gravity Urine 1.013 (1.000-1.030); Urobilinogen Urine Negative (Negative); pH Urine 5.5 (4.5-7.5)
[2024-01-31 15:40] LABS: Magnesium 1.6 mg/dl (1.7-2.4)
[2024-01-31] MEDS: POTASSIUM CHLORIDE CRTAB 20 MEQ TABCR PO STA (15:40)
[2024-01-31] MEDS: CEFEPIME 20 ML IV STA (15:40)
[2024-01-31] MEDS ORDERED: BUMETANIDE 2 MG in SYRINGE 0 ML IV SCH (17:00)
[2024-01-31] MEDS: INSULIN ASPART PER UNIT CHARGE SC SCH (18:05)
[2024-01-31] MEDS ORDERED: ALBUTEROL 0.083% NEBU SOLN 3 ML VIAL INH PRN (18:27)
[2024-01-31] MEDS ORDERED: SUCRALFATE 1 GM TAB PO PRN (18:27)
--- NOTE | 2024-01-31 19:05 | Electrocardiogram Report ---
Test Reason : Blood Pressure : */* mmHG Vent. Rate : 71 BPM Atrial Rate : 71 BPM P-R Int : 148 ms QRS Dur : 88 ms QT Int : 420 ms P-R-T Axes : -15 -8 -15 degrees QTcB Int : 456 ms Normal sinus rhythm Minimal voltage criteria for LVH, may be normal variant ( R in aVL ) Inferior infarct (cited on or before 23-Jul-2017) Anteroseptal infarct (cited on or before 01-Oct-2017) Abnormal ECG When compared with ECG of 06-Dec-2023 13:26, No significant change was found Confirmed by Corey Gross ([id number]) on 01/31/2024 7:05:10 PM Referred By: Confirmed By: Corey Gross
[2024-01-31] MEDS: allopurinoL 100 MG TAB PO SCH (20:34)
[2024-01-31] MEDS: DULoxetine HCL 60 MG CAP PO SCH (20:34)
[2024-01-31] MEDS: SPIRONOLACTONE 25 MG TAB PO SCH (20:34)
[2024-01-31] MEDS: FAMOTIDINE 20 MG TAB PO SCH (20:34)
[2024-01-31] MEDS: PANTOprazole 40 MG TAB PO SCH (20:34)
[2024-01-31] MEDS: busPIRone 5 MG TAB PO SCH (20:34)
[2024-01-31] MEDS: busPIRone 15 MG TAB PO SCH (20:34)
[2024-01-31] MEDS: GABAPENTIN 400 MG CAP PO SCH (20:35)
[2024-01-31] MEDS: NYSTATIN POWDER 15GM BTL EXT SCH (20:35)
[2024-01-31] MEDS: hydrOXYzine HCl 25 MG TAB PO SCH (20:35)
[2024-01-31] MEDS: BUMETANIDE 2 MG in SYRINGE 0 ML IV ONE (20:37)
[2024-01-31] MEDS: CEFEPIME 2,000 MG in SYRINGE 0 ML IV SCH (20:37)
[2024-01-31] MEDS: HEPARIN SOD 5,000 UNIT/0.5 ML VIAL SQ SCH (20:41)
[2024-01-31] MEDS: ACETAMINOPHEN 325 MG TAB PO PRN (22:54)
[2024-02-01 05:01] LABS: Basophils # (auto) 0.05 K/uL (0.00-0.20); Basophils % (auto) 0.4 %; Eosinophils # (auto) 0.35 K/uL (0.00-0.50); Eosinophils % (auto) 2.6 %; Hematocrit (blood only) 40.2 % (37.0-47.0); Immature Granulocytes # (auto) 0.04 K/uL (0.01-0.20); Immature Granulocytes % (auto) 0.3 %; Lymphocytes # (auto) 1.91 K/uL (1.20-3.40); Lymphocytes % (auto) 14.1 %; Mean Corpuscular Hemoglobin 27.6 pg (25.0-34.0); Mean Corpuscular Hgb Conc 32.3 g/dL (32.0-36.0); Mean Corpuscular Volume 85.4 fL (80.0-100.0); Mean Platelet Volume 9.8 fL (9.4-12.4); Monocytes # (auto) 0.68 K/uL (0.11-0.59); Neutrophils # (auto) 10.53 K/uL (1.40-6.50); Neutrophils % (auto) 77.6 %; Platelet Count 280 K/uL (130-400); RDW Coefficient of Variation 14.3 % (11.5-14.5); RDW Standard Deviation 44.1 fL (36.4-46.3); Red Blood Count 4.71 M/uL (4.20-5.40); White Blood Count 13.56 K/ul (4.8-10.8)
[2024-02-01 05:16] LABS: Calcium 9.1 mg/dl (8.6-10.3); Creatinine Clr Calc Pharmacy 72.2 ml/min; Est GFR (Non-African American) 42.3 ml/min; Magnesium 1.6 mg/dl (1.7-2.4); Potassium 3.6 mmol/L (3.5-5.1)
[2024-02-01] MEDS: FLUTICASONE/VILANTEROL 200/25MCG 14 PUFFS/INHALER INH SCH (07:52)
[2024-02-01] MEDS: METOPROLOL SUCC 50MG EXT REL TAB PO SCH (07:54)
[2024-02-01] MEDS: ASPIRIN 81 MG ECTAB PO SCH (07:55)
[2024-02-01] MEDS: buPROPion XL 300 MG TABCR PO SCH (07:55)
[2024-02-01] MEDS: BUMETANIDE 2 MG in SYRINGE 0 ML IV SCH (07:56)
[2024-02-01] MEDS: POTASSIUM CHLORIDE CRTAB 20 MEQ TABCR PO STA (09:05)
[2024-02-01] MEDS: MAGNESIUM OXIDE 400 MG TAB PO SCH (09:48)
[2024-02-01] MEDS: METOPROLOL SUCC 25MG EXT REL TAB PO SCH (09:49)
--- NOTE | 2024-02-01 13:02 | Infectious Disease Consult ---
Date of Consultation February 01, 2024 Assessment & Plan (1) CHF (congestive heart failure): (2) Weight gain: (3) Panniculitis: Plan #pannicultitis #leukocytosis #MO with significant weight gain Unable to fully assess without Telepresenter but given erythema described and elevated wbc can c/w abx for now 63 yo F with h/o CHF, follicular lymphoma in situ, CKD, ANDRZEJ, asthma, previous CVA, and morbid obesity who presented to the [facility] ED from her PCPs office on 01/31/2024 due to significant Weight gain and panniculitis. Patient was recently admitted through 01/20/24 with similar presentation- ID not consulted then but she was treated with Daptomycin and Cefepime then. She was also diuresed. She was discharged but RT after having inc weight gain Labs were significant for a leukocytosis of 11 (now 13) with neutrophil predominance of 7.8, stable renal function, potassium of 3.4, with high- sensitivity troponin and BNP in process. Chest x-ray was read as negative for acute findings. ECG showed normal sinus rhythm RECOMMEND -Wound care -Nystatin to area -Check MRSA nares if negative then would dc Daptomycin Maddi Darling MD Infectious Diseases Consultation Information This patient recommendation is based on a telemedicine consult request which was completed asynchronously through chart review and information provided by the primary physician. The patient was not seen or examined today. The evaluation is consultative in nature and all patient care and treatment decisions can either be accepted or rejected by the patient's primary hospital-based treating physician using their own independent medical judgment for their patient. Fixture Relamper contact information: Please call [facility] [place] [phone]. (Phone Number For Physician Use Only) Time Spent Reviewing Chart: 31+ minutes History of Present Illness Reason for Consultation: Panniculitis Requesting Physician: Dr. Harper Attending Physician: Henry Harper MD History of Present Illness 63 yo F with h/o CHF, follicular lymphoma in situ, CKD, ANDRZEJ, asthma, previous CVA, and morbid obesity who presented to the [facility] ED from her PCPs office on 01/31/2024 due to significant Weight gain and panniculitis. Patient was recently admitted through 01/20/24 with similar presentation- ID not consulted then but she was treated with Daptomycin and Cefepime then. She was also diuresed. She was discharged but RT after having inc weight gain Labs were significant for a leukocytosis of 11 (now 13) with neutrophil predominance of 7.8, stable renal function, potassium of 3.4, with high- sensitivity troponin and BNP in process. Chest x-ray was read as negative for acute findings. ECG showed normal sinus rhythm ID Consulted - No Telepresenter available currently Allergies Allergy/AdvReac Type Severity Reaction Status Date / Time Corticosteroids Allergy Severe Anaphylaxis Unverified 01/31/24 10:45 (Glucocorticoids) dog dander Allergy Intermediate Rash Verified 01/31/24 10:45 morphine Allergy Intermediate mouth and Verified 01/31/24 10:45 face swells Penicillins Allergy Intermediate rash/hives Verified 01/31/24 10:45 adhesive Allergy Mild Skin rash Verified 01/31/24 10:45 localized zolpidem Allergy Unknown Unknown Verified 01/31/24 10:45 pregabalin AdvReac Intermediate "makes Verified 01/31/24 10:45 goofy" Home Medications Medication Instructions Recorded Confirmed Type fluticasone 250 mcg-salmeterol 50 1 inh inhalation BID #1 inhaler 06/25/21 01/31/24 Rx mcg/dose blistr powdr for inhalation (Advair Diskus) cholecalciferol (vitamin D3) 50 2,000 unit PO TID #270 caps 07/18/21 01/31/24 Rx mcg (2,000 unit) capsule (Vitamin D3) acetaminophen 500 mg tablet 1,000 mg (2 x 500 mg) PO Q4H PRN 09/16/21 01/31/24 Rx fever or pain #90 tabs calcium carbonate (Tums) 900 mg PO QAM 03/03/22 01/31/24 History cyanocobalamin (vitamin B-12) 1,000 mcg PO QAM 03/03/22 01/31/24 History 1,000 mcg tablet (Vitamin B-12) albuterol sulfate 2.5 mg/3 mL 2.5 mg (3 mL) inhalation Q6H PRN 06/25/23 01/31/24 Rx (0.083 %) solution for nebulization Shortness Of Breath #90 mL aspirin 81 mg tablet,delayed 81 mg PO QAM 06/25/23 01/31/24 History release duloxetine 60 mg capsule,delayed 60 mg PO BID 06/25/23 01/31/24 History release (Cymbalta) diclofenac sodium 1 % topical gel 4 g EXT QID #1 tube 08/30/23 01/31/24 Rx (Voltaren Arthritis Pain) nystatin 100,000 unit/gram topical 1 applic topical TID PRN yeast 08/30/23 01/31/24 Rx powder rash under breasts, abdominal skin folds #30 grams allopurinol 100 mg tablet 100 mg PO BID #180 tabs 09/21/23 01/31/24 Rx CPAP Supplies #1 ea 09/28/23 01/31/24 Rx CPAP Machine #1 ea 09/29/23 01/31/24 Rx buspirone 15 mg tablet 15 mg PO UD 10/20/23 01/31/24 History cetirizine 10 mg tablet (Zyrtec) 10 mg PO BID 10/20/23 01/31/24 History losartan 25 mg tablet 25 mg PO QAM 10/20/23 01/31/24 History spironolactone 50 mg tablet 25 mg (1/2 x 50 mg) PO BID #0 tabs 11/05/23 01/31/24 Rx empagliflozin 10 mg tablet 10 mg PO QAM #90 tabs 12/02/23 01/31/24 Rx (Jardiance) multivitamin 1 tab PO QAM #90 tabs 12/20/23 01/31/24 Rx gabapentin 400 mg capsule 400 mg PO QID #360 caps 12/24/23 01/31/24 Rx hydroxyzine HCl 25 mg tablet 25 mg PO HS 12/24/23 01/31/24 History potassium chloride 20 mEq 20 meq PO QAM 12/24/23 01/31/24 History tablet,extended release(part/cryst) (Klor-Con M) metoprolol succinate 50 mg 50 mg PO DAILY #90 tabs 12/27/23 01/31/24 Rx tablet,extended release 24 hr bupropion HCl 300 mg 24 hr tablet, 300 mg PO QAM 12/29/23 01/31/24 History extended release (Wellbutrin XL) pantoprazole 40 mg tablet,delayed 40 mg PO BID 12/29/23 01/31/24 History release (Protonix) sucralfate 1 gram tablet (Carafate) 1 g PO AC PRN heartburn/stomach 12/29/23 01/31/24 History upset tramadol 50 mg tablet 50 mg PO Q6H PRN pain, for initial 12/29/23 01/31/24 Rx therapy, max 4tabs/day #5 tabs montelukast 10 mg tablet 10 mg PO QPM #90 tabs 01/03/24 01/31/24 Rx (Singulair) albuterol sulfate 90 mcg/actuation 2 puff inhalation Q4H PRN 01/04/24 01/31/24 Rx aerosol inhaler (Ventolin HFA) Shortness Of Breath Or Wheezing #18 grams buspirone 5 mg tablet 5 mg PO UD 01/06/24 01/31/24 History epinephrine 0.3 mg/0.3 mL 0.3 mg IM UD PRN anaphylaxis 01/06/24 01/31/24 History injection, auto-injector nystatin 100,000 unit/gram topical 1 applic topical BID PRN Rash 01/06/24 01/31/24 History cream famotidine 20 mg tablet (Pepcid) 20 mg PO HS #90 tabs 01/10/24 01/31/24 Rx bumetanide 1 mg tablet 2 mg (2 x 1 mg) PO BID #360 tabs 01/20/24 01/31/24 Rx Patient History Medical History Mast cell disease B-cell lymphoma Hx-TIA (transient ischemic attack) 2017 > ASA for prevention > no residual effects Hx of sepsis 09/2021 r/t left knee infection Hypertension Lumbar spinal stenosis Arthritis Allergic rhinitis Gout Other ovarian cyst, left side present, just monitoring Acid reflux Severe obstructive sleep apnea cpap Stage 3 chronic kidney disease follows with Dr. Wood Fatty liver CHF (congestive heart failure) follows with Ashlyn Griffin Solitary kidney, congenital Diabetes mellitus, type 2 Ulcer of foot one ulcer present to bottom of bilat feet > follows with wound clinic at [place], improving per pt Chronic ulcer of right foot with fat layer exposed sees wound clinic > bilat feet at present History of COVID-19 09/2021 Iron deficiency anemia Venous stasis of both lower extremities MDD (major depressive disorder), recurrent episode, moderate Ambulatory dysfunction uses walker Depression with anxiety Degenerative joint disease, shoulder, right Lymphedema left leg and abdomen / chronic Asthma well controlled, rare res inh use Hyperlipidemia no meds Surgical History Hx of biopsy (12/29/23) Left Neck Lymph Node Biopsy(Left) - Yohan Maldonado DO, FACS History of insertion of central venous access port removed in 2022 History of revision of total replacement of left knee joint History of cardiac cath remote hx over 20 yrs ago, no stents History of colonoscopy History of esophagogastroduodenoscopy (EGD) History of bilateral knee replacement (10/16/22) H/O knee surgery (12/2021) L knee washout w/ polyexchange S/P tonsillectomy and adenoidectomy Status post total shoulder arthroplasty (10/17/18) right History of carpal tunnel release B/L H/O ventral hernia repair History of appendectomy History of cholecystectomy Family History Mother Diabetes Coronary heart disease Myocardial infarction S/P CABG x 3 Hypertension Gallbladder disease Sister Hodgkins lymphoma Brother Kidney disease Grandmother Breast cancer Aunt Ovarian cancer Father , 02/11/20. 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: No Beliefs That Will Affect Care: None marital status: marital status details: ; lives with parents & 1 daughter Current Living Situation: Parent and Family Current Living Situation Comment: Lives with mother and daughter current occupational status: disabled Other Information That Helps Us Care for You: No other: worked in [employer] in [employer]; 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 Feels Safe at Home: Yes Safety Concerns: Feels Safe At This Time Childhood Exposure to Second-Hand Smoke: No Diet: regular Diet Comment: regular caffeine: No Dental Care, Regularly: No Physical Activity Frequency: Does not Exercise Seatbelt Use: always Sunscreen Use: Yes Assistive Devices: CPAP, Denture - Upper, Glasses and Walker Results & Data Vital Signs (Past 12 Hours) Vital Signs Temp Pulse Pulse Pulse Resp BP BP 02/01/24 12:28 36.6 C 59 L 14 108/62 02/01/24 11:45 36.3 C L 66 18 126/82 02/01/24 07:56 36.5 C 55 L 18 100/69 02/01/24 07:40 55 L 02/01/24 04:00 36.5 C 68 18 127/81 Pulse Ox O2 Del Method 02/01/24 12:28 98 Room Air 02/01/24 11:45 93 Room Air 02/01/24 07:56 95 Room Air 02/01/24 07:40 02/01/24 04:00 94 Room Air Laboratory Results Short CBC 01/31/24 02/01/24 Range/Units 12:47 04:37 WBC 11.28 H 13.56 H (4.8-10.8) K/ul Hgb 14.3 13.0 (12.0-16.0) g/dl Hct 43.2 40.2 (37.0-47.0) % Plt Count 354 280 (130-400) K/uL BMP 01/31/24 01/31/24 02/01/24 12:47 19:44 04:37 Sodium 139 141 Potassium 3.4 L 3.4 L 3.6 Chloride 98 101 Carbon Dioxide 33 H 33 H BUN 30 H 31 H Creatinine 1.40 H 1.35 H Glucose 100 H 109 H Calcium 9.6 9.1 Liver Function 01/31/24 Range/Units 12:47 Total Bilirubin 0.5 (0.2-1.0) mg/dl AST 17 (13-39) U/L ALT 15 (7-52) U/L Alkaline Phosphatase 91 (34-104) U/L Albumin 4.4 (3.4-5.0) gm/dl Urine 01/31/24 Range/Units 15:00 Urine Color Yellow Urine Appearance Clear (Clear) Urine pH 5.5 (4.5-7.5) Ur Specific [place] 1.013 (1.000-1.030) Urine Protein Negative (Negative) Urine Glucose (UA) 2+ H (Negative) (1) CHF (congestive heart failure) Heart failure chronicity: acute on chronic Heart failure type: unspecified Qualified Code(s): I50.9 - Heart failure, unspecified
--- NOTE | 2024-02-01 13:25 | Hospitalist Progress Note ---
Date of Service February 01, 2024 Assessment & Plan (1) Acute on chronic heart failure with preserved ejection fraction: (2) Panniculitis: (3) B-cell lymphoma: (4) Hx-TIA (transient ischemic attack): (5) Stage 3 chronic kidney disease: (6) Diabetes mellitus type 2 with neurological manifestations: (7) Stage 3b chronic kidney disease: (8) Morbid obesity with BMI of 50.0-59.9, adult: Plan 63-year-old female the past medical history significant for recurrent panniculitis, HFpEF, follicular lymphoma in situ, CKD, ANDRZEJ, asthma, previous CVA, and morbid obesity who presented to the [facility] ED from her PCPs office on 01/31/2024 due to concerns for recurrent CHF exacerbation and panniculitis. Patient had just been admitted to our service from 01/06/2024 - 01/20/2024 due to similar presentation with significant abdominal edema/erythema. During her admission she was treated with a course of daptomycin/cefepime for her panniculitis. #Acute on chronic diastolic congestive heart failure with preserved ejection fraction #History of TIA EF is 65% Continue Bumex 2 mg IV twice daily along with spironolactone 20 mg p.o. twice daily Continue aspirin 81 mg daily Continue Toprol-XL 25 mg daily I/O monitoring Daily weights Continue Bales catheter while patient is undergoing IV diuresis #Panniculitis ID was consulted As per ID continue cefepime plus daptomycin Start nystatin to abdominal folds Check MRSA nasal screen #CKD stage IIIb #Hypokalemia #Hypomagnesemia Outpatient neurology tech is Dr. Wood Renal function is at baseline Monitor renal function specially on diuresis Monitor potassium and magnesium Replace as needed Avoid nephrotoxic agents including NSAIDs #Type 2 diabetes mellitus with peripheral neuropathy A1c is 5.7 on November 02, 2023 Accu-Cheks before every meal and nightly with sliding scale insulin coverage Continue gabapentin Monitor glycemic control #ANDRZEJ Continue CPAP at bedtime #Follicular lymphoma in situ Outpatient follow-up with oncology CODE STATUS: Full code DVT prophylaxis: Heparin subcutaneous Discharge planning to home based on ID recommendations regarding antibiotics Care plan discussed with patient, nursing staff Admission and Anticipated Discharge Date Admission Date: January 31, 2024 Subjective Patient seen and examined H&P reviewed Denies any headache, dizziness, lightheadedness, fever, chills, nausea, vomiting, diarrhea, abdominal pain, chest pain, shortness of breath Patient states she feels better today, is urinating better and feels IV Bumex is working better than the oral Bumex at home. Patient endorses 20 pound weight gain since last admission Patient lives with her daughter, denies tobacco use and alcohol use. She ambulates with a walker Review of Systems Review of Systems: As per HPI Physical Exam Physical Exam: General: No acute distress, speaking in full sentences Psych: Awake and alert HEENT: Anicteric sclera, moist oral mucosa CVS: Regular rate and rhythm Lungs: Bilateral air entry, no wheezing noted Abdomen: Soft, obese with skin thickening noted on the pannus with erythema and skin breakdown in the abdominal folds, nontender, no rebound, no guarding Ext: lower extremity pitting edema with chronic skin changes, no calf tenderness Neuro: No focal motor deficits noted Results & Data Results & Data Vital Signs (Past 12 Hours) Vital Signs Temp Pulse Pulse Pulse Resp BP BP 02/01/24 12:28 36.6 C 59 L 14 108/62 02/01/24 11:45 36.3 C L 66 18 126/82 02/01/24 07:56 36.5 C 55 L 18 100/69 02/01/24 07:40 55 L 02/01/24 04:00 36.5 C 68 18 127/81 Pulse Ox O2 Del Method 02/01/24 12:28 98 Room Air 02/01/24 11:45 93 Room Air 02/01/24 07:56 95 Room Air 02/01/24 07:40 02/01/24 04:00 94 Room Air Laboratory Results Laboratory Results - last 24 hr 01/31/24 01/31/24 01/31/24 19:15 19:44 20:17 WBC RBC Hgb Hct MCV MCH MCHC RDW Std Deviation RDW Coeff of Cleo Plt Count MPV Immature Gran % (Auto) Neut % (Auto) Lymph % (Auto) [place] % (Auto) Eos % (Auto) Baso % (Auto) Neut # (Auto) Lymph # (Auto) [place] # (Auto) Eos # (Auto) Baso # (Auto) Immature Gran # (Auto) Sodium Potassium 3.4 L Chloride Carbon Dioxide Anion Gap BUN Creatinine Est Cr Clr Drug Dosing Est GFR ( Amer) Est GFR (Non-Af Amer) BUN/Creatinine Ratio Glucose POC Glucose 116 H Calcium Magnesium Nasal Screen MRSA (PCR) SARS-CoV-2 (PCR) NEGATIVE 02/01/24 02/01/24 02/01/24 04:37 08:08 11:59 WBC 13.56 H RBC 4.71 Hgb 13.0 Hct 40.2 MCV 85.4 MCH 27.6 MCHC 32.3 RDW Std Deviation 44.1 RDW Coeff of Cleo 14.3 Plt Count 280 MPV 9.8 Immature Gran % (Auto) 0.3 Neut % (Auto) 77.6 Lymph % (Auto) 14.1 [place] % (Auto) 5.0 Eos % (Auto) 2.6 Baso % (Auto) 0.4 Neut # (Auto) 10.53 H Lymph # (Auto) 1.91 [place] # (Auto) 0.68 H Eos # (Auto) 0.35 Baso # (Auto) 0.05 Immature Gran # (Auto) 0.04 Sodium 141 Potassium 3.6 Chloride 101 Carbon Dioxide 33 H Anion Gap 7 BUN 31 H Creatinine 1.35 H Est Cr Clr Drug Dosing 72.2 Est GFR ( Amer) 49.0 Est GFR (Non-Af Amer) 42.3 BUN/Creatinine Ratio 23.0 H Glucose 109 H POC Glucose 103 H 128 H Calcium 9.1 Magnesium 1.6 L Nasal Screen MRSA (PCR) SARS-CoV-2 (PCR) 02/01/24 02/01/24 17:09 17:30 WBC RBC Hgb Hct MCV MCH MCHC RDW Std Deviation RDW Coeff of Cleo Plt Count MPV Immature Gran % (Auto) Neut % (Auto) Lymph % (Auto) [place] % (Auto) Eos % (Auto) Baso % (Auto) Neut # (Auto) Lymph # (Auto) [place] # (Auto) Eos # (Auto) Baso # (Auto) Immature Gran # (Auto) Sodium Potassium Chloride Carbon Dioxide Anion Gap BUN Creatinine Est Cr Clr Drug Dosing Est GFR ( Amer) Est GFR (Non-Af Amer) BUN/Creatinine Ratio Glucose POC Glucose 97 Calcium Magnesium Nasal Screen MRSA (PCR) Negative SARS-CoV-2 (PCR) PG Care Time/CCT Total # of Minutes Spent Total Time Spent: 50 Total Time Spent with Patient: Total time spent is greater than 50% in coordination of care (as documented) at patient's floor/unit and/or counseling patient: Coding Level of Care Code 91761 SUB INP/OBS CARE MIN Diagnoses Acute on chronic heart failure with preserved ejection fraction I50.33 Panniculitis M79.3 B-cell lymphoma C85.10 Hx-TIA (transient ischemic attack) Z86.73 Stage 3 chronic kidney disease N18.30 Diabetes mellitus type 2 with neurological manifestations E11.49 Stage 3b chronic kidney disease N18.32 Morbid obesity with BMI of 50.0-59.9, adult E66.01; Z68.43 Time Spent (min) 50
[2024-02-01] MEDS: DAPTOmycin 425 MG in SYRINGE 0 ML IV SCH (17:57)
[2024-02-02 06:42] LABS: Basophils # (auto) 0.04 K/uL (0.00-0.20); Basophils % (auto) 0.5 %; Eosinophils # (auto) 0.37 K/uL (0.00-0.50); Eosinophils % (auto) 4.6 %; Hematocrit (blood only) 39.5 % (37.0-47.0); Hemoglobin 12.5 g/dl (12.0-16.0); Immature Granulocytes # (auto) 0.02 K/uL (0.01-0.20); Immature Granulocytes % (auto) 0.2 %; Lymphocytes # (auto) 2.35 K/uL (1.20-3.40); Lymphocytes % (auto) 29.2 %; Mean Corpuscular Hemoglobin 27.2 pg (25.0-34.0); Mean Corpuscular Hgb Conc 31.6 g/dL (32.0-36.0); Mean Corpuscular Volume 86.1 fL (80.0-100.0); Monocytes # (auto) 0.56 K/uL (0.11-0.59); Neutrophils % (auto) 58.5 %; Platelet Count 220 K/uL (130-400); RDW Coefficient of Variation 14.3 % (11.5-14.5); RDW Standard Deviation 44.4 fL (36.4-46.3); Red Blood Count 4.59 M/uL (4.20-5.40); White Blood Count 8.04 K/ul (4.8-10.8)
[2024-02-02 06:59] LABS: BUN Creatinine Ratio 22.4 (10-20); Calcium 8.6 mg/dl (8.6-10.3); Creatinine Clr Calc Pharmacy 75.9 ml/min; Est GFR (African American) 53.8 ml/min; Est GFR (Non-African American) 46.4 ml/min; Magnesium 1.7 mg/dl (1.7-2.4); Potassium 3.4 mmol/L (3.5-5.1)
[2024-02-02 07:36] LABS: Estimated Average Glucose 114 mg/dl; Hemoglobin A1C 5.6 % (4.5-5.6)
[2024-02-02] MEDS: POTASSIUM CHLORIDE CRTAB 20 MEQ TABCR PO STA (08:49)
--- NOTE | 2024-02-02 10:06 | Infectious Disease Progress Nt ---
Date of Service February 02, 2024 Assessment & Plan (1) CHF (congestive heart failure): (2) Weight gain: (3) Panniculitis: Plan #pannicultitis #leukocytosis, resolved #MO with significant weight gain Unable to fully assess without Telepresenter but given erythema described and elevated wbc can c/w abx for now 63 yo F with h/o CHF, follicular lymphoma in situ, CKD, ANDRZEJ, asthma, previous CVA, and morbid obesity who presented to the [facility] ED from her PCPs office on 01/31/2024 due to significant Weight gain and panniculitis. Patient was recently admitted through 01/20/24 with similar presentation- ID not consulted then but she was treated with Daptomycin and Cefepime then. She was also diuresed. She was discharged but RT after having inc weight gain Labs were significant for a leukocytosis of 11 (now 13) with neutrophil predominance of 7.8, stable renal function, potassium of 3.4, with high- sensitivity troponin and BNP in process. Chest x-ray was read as negative for acute findings. ECG showed normal sinus rhythm RECOMMEND -Wound care -Nystatin to area -MRSA nares negative -Cand dc daptomycin -Would narrow treatment to Cefazolin 2G IV TID to cover strep/mssa on discharge can change to keflex 500mg po q6 hours to cover cellulitis - would treat for a total of 2 weeks from admission 01/30-02/11 ID will s/o please call with questions Maddi Darling MD Infectious Diseases Admission and Anticipated Discharge Date Admission Date: January 31, 2024 Subjective Subsequent visit was provided via telemedicine using two-way real-time interactive telecommunication between the patient and the telemedicine provider. For the duration of the visit, the provider was performing the assessment from a different facility than the patient. This includesuse of bluetooth stethoscope forauscultationperformed by the telepresenter that the telemedicine provider can hear if described in the physical exam. Brickmason Supervisor contact information: Please call [facility] . (Phone Number For Physician Use Only) After establishing a telemedicine visit, patient was: Patient was verified with two unique identifiers, Patient/authorized rep acknowledged consent and understanding and Gave permission to continue telehealth session Time Spent with Patient: Subsequent => 35 min Physical Exam Physical Exam: OOB to chair Large pannus iwth open lesions on left erythema along pannus groin b/l Results & Data Vital Signs (Past 12 Hours) Vital Signs Temp Pulse Pulse Resp BP Pulse Ox O2 Del Method 02/02/24 08:34 71 02/02/24 07:54 36.5 C 69 16 113/68 95 Room Air 02/02/24 04:00 36.5 C 64 18 109/66 95 Room Air 02/01/24 23:30 36.8 C 86 18 120/72 97 Room Air (1) CHF (congestive heart failure) Heart failure chronicity: acute on chronic Heart failure type: unspecified Qualified Code(s): I50.9 - Heart failure, unspecified
--- NOTE | 2024-02-02 11:01 | Hospitalist Progress Note ---
Date of Service February 02, 2024 Assessment & Plan (1) Acute on chronic heart failure with preserved ejection fraction: (2) Panniculitis: (3) B-cell lymphoma: (4) Hx-TIA (transient ischemic attack): (5) Stage 3 chronic kidney disease: (6) Diabetes mellitus type 2 with neurological manifestations: (7) Stage 3b chronic kidney disease: (8) Morbid obesity with BMI of 50.0-59.9, adult: Plan 63-year-old female the past medical history significant for recurrent panniculitis, HFpEF, follicular lymphoma in situ, CKD, ANDRZEJ, asthma, previous CVA, and morbid obesity who presented to the [facility] ED from her PCPs office on 01/31/2024 due to concerns for recurrent CHF exacerbation and panniculitis. Patient had just been admitted to our service from 01/06/2024 - 01/20/2024 due to similar presentation with significant abdominal edema/erythema. During her admission she was treated with a course of daptomycin/cefepime for her panniculitis. #Acute on chronic diastolic congestive heart failure with preserved ejection fraction #History of TIA EF is 65% Continue Bumex 2 mg IV twice daily along with spironolactone 25 mg p.o. twice daily Continue aspirin 81 mg daily Continue Toprol-XL 25 mg daily I/O monitoring Daily weights: Weight has come down from 162 kg on admission to 155 kg Continue Bales catheter while patient is undergoing IV diuresis #Panniculitis ID was consulted ID saw the patient, MRSA screen was negative ID has changed antibiotics from IV cefepime plus IV daptomycin to IV cefazolin 2 g IV every 8 hours and have recommended that patient can be switched to oral Keflex 500 mg p.o. every 6 hours for total of 2 weeks until 02/12/2024 Wound care following the patient Continue nystatin to abdominal folds #CKD stage IIIb #Hypokalemia #Hypomagnesemia Outpatient v groove cutter is Dr. Wood Renal function is at baseline Monitor renal function specially on diuresis Monitor potassium and magnesium Replace as needed Avoid nephrotoxic agents including NSAIDs #Type 2 diabetes mellitus with peripheral neuropathy A1c is 5.6 Accu-Cheks before every meal and nightly with sliding scale insulin coverage Continue gabapentin Monitor glycemic control #ANDRZEJ Continue CPAP at bedtime #Follicular lymphoma in situ Outpatient follow-up with oncology on discharge CODE STATUS: Full code DVT prophylaxis: Heparin subcutaneous Discharge planning Home with home health care likely in the next 48 hours on oral antibiotics Care plan discussed with patient, nursing staff Admission and Anticipated Discharge Date Admission Date: January 31, 2024 Subjective Patient seen and examined Overall feels much better Denies any fever, chills, chest pain or shortness of breath Tolerating oral diet without any issues Review of Systems Review of Systems: As per HPI Physical Exam Physical Exam: General: No acute distress, speaking in full sentences Psych: Awake and alert HEENT: Anicteric sclera, moist oral mucosa CVS: Regular rate and rhythm Lungs: Bilateral air entry, no wheezing noted Abdomen: Soft, obese with skin thickening noted on the pannus with erythema and skin breakdown in the abdominal folds, nontender, no rebound, no guarding Ext: lower extremity pitting edema with chronic skin changes, no calf tenderness Neuro: No focal motor deficits noted : Bales catheter in place Results & Data Results & Data Vital Signs (Past 12 Hours) Vital Signs Temp Pulse Pulse Resp BP Pulse Ox O2 Del Method 02/02/24 08:34 71 02/02/24 07:54 36.5 C 69 16 113/68 95 Room Air 02/02/24 04:00 36.5 C 64 18 109/66 95 Room Air 02/01/24 23:30 36.8 C 86 18 120/72 97 Room Air Laboratory Results Laboratory Results - last 24 hr 02/01/24 02/01/24 02/02/24 17:09 17:30 06:03 WBC 8.04 RBC 4.59 Hgb 12.5 Hct 39.5 MCV 86.1 MCH 27.2 MCHC 31.6 L RDW Std Deviation 44.4 RDW Coeff of Cleo 14.3 Plt Count 220 MPV 10.0 Immature Gran % (Auto) 0.2 Neut % (Auto) 58.5 Lymph % (Auto) 29.2 [place] % (Auto) 7.0 Eos % (Auto) 4.6 Baso % (Auto) 0.5 Neut # (Auto) 4.70 Lymph # (Auto) 2.35 [place] # (Auto) 0.56 Eos # (Auto) 0.37 Baso # (Auto) 0.04 Immature Gran # (Auto) 0.02 Sodium 143 Potassium 3.4 L Chloride 103 Carbon Dioxide 33 H Anion Gap 7 BUN 28 H Creatinine 1.25 H Est Cr Clr Drug Dosing 75.9 Est GFR ( Amer) 53.8 Est GFR (Non-Af Amer) 46.4 BUN/Creatinine Ratio 22.4 H Glucose 87 POC Glucose 97 Estimat Average Glucose 114 Hemoglobin A1c 5.6 Calcium 8.6 Magnesium 1.7 Nasal Screen MRSA (PCR) Negative PG Care Time/CCT Total # of Minutes Spent Total Time Spent with Patient: Total time spent is greater than 50% in coordination of care (as documented) at patient's floor/unit and/or counseling patient: Coding Level of Care Code 78761 SUB INP/OBS CARE 3/50MIN Diagnoses Acute on chronic heart failure with preserved ejection fraction I50.33 Panniculitis M79.3 B-cell lymphoma C85.10 Hx-TIA (transient ischemic attack) Z86.73 Stage 3 chronic kidney disease N18.30 Diabetes mellitus type 2 with neurological manifestations E11.49 Stage 3b chronic kidney disease N18.32 Morbid obesity with BMI of 50.0-59.9, adult E66.01; Z68.43
[2024-02-02] MEDS: ceFAZolin 2000MG 2,000 MG/15 ML SYR IV SCH (12:47)
[2024-02-02] MEDS: POTASSIUM CHLORIDE CRTAB 20 MEQ TABCR PO ONE (21:37)
[2024-02-03 06:49] LABS: BUN Creatinine Ratio 18.3 (10-20); Calcium 8.7 mg/dl (8.6-10.3); Creatinine Clr Calc Pharmacy 75.4 ml/min; Est GFR (African American) 53.3 ml/min; Est GFR (Non-African American) 45.9 ml/min; Magnesium 1.8 mg/dl (1.7-2.4); Potassium 3.8 mmol/L (3.5-5.1)
--- NOTE | 2024-02-03 12:16 | Hospitalist Progress Note ---
Date of Service February 03, 2024 Assessment & Plan (1) Acute on chronic heart failure with preserved ejection fraction: (2) Panniculitis: (3) B-cell lymphoma: (4) Hx-TIA (transient ischemic attack): (5) Stage 3 chronic kidney disease: (6) Diabetes mellitus type 2 with neurological manifestations: (7) Stage 3b chronic kidney disease: (8) Morbid obesity with BMI of 50.0-59.9, adult: Plan 63-year-old female the past medical history significant for recurrent panniculitis, HFpEF, follicular lymphoma in situ, CKD, ANDRZEJ, asthma, previous CVA, and morbid obesity who presented to the [facility] ED from her PCPs office on 01/31/2024 due to concerns for recurrent CHF exacerbation and panniculitis. Patient had just been admitted to our service from 01/06/2024 - 01/20/2024 due to similar presentation with significant abdominal edema/erythema. During her admission she was treated with a course of daptomycin/cefepime for her panniculitis. #Acute on chronic diastolic congestive heart failure with preserved ejection fraction #History of TIA EF is 65% Continue Bumex 2 mg IV twice daily along with spironolactone 25 mg p.o. twice daily, switch IV Bumex to oral Bumex starting tomorrow Continue aspirin 81 mg daily Continue Toprol-XL 25 mg daily I/O monitoring Daily weights: Weight has come down from 162 kg on admission to 155 kg and she is 12-1/2 L in negative fluid balance Remove Bales catheter #Panniculitis ID was consulted ID saw the patient, MRSA screen was negative ID has changed antibiotics from IV cefepime plus IV daptomycin to IV cefazolin 2 g IV every 8 hours and have recommended that patient can be switched to oral Keflex 500 mg p.o. every 6 hours for total of 2 weeks until 02/12/2024 Wound care following the patient Continue nystatin to abdominal folds #CKD stage IIIb #Hypokalemia #Hypomagnesemia Outpatient gusset edger is Dr. Wood Renal function is at baseline Monitor renal function specially on diuresis Monitor potassium and magnesium Replace as needed Avoid nephrotoxic agents including NSAIDs #Type 2 diabetes mellitus with peripheral neuropathy A1c is 5.6 Accu-Cheks before every meal and nightly with sliding scale insulin coverage Continue gabapentin Monitor glycemic control #ANDRZEJ Continue CPAP at bedtime #Follicular lymphoma in situ Outpatient follow-up with oncology on discharge CODE STATUS: Full code DVT prophylaxis: Heparin subcutaneous Discharge planning Home with home health care likely tomorrow on oral antibiotics Care plan discussed with patient, nursing staff Admission and Anticipated Discharge Date Admission Date: January 31, 2024 Subjective Patient seen and examined Overall feels much better and feels [employer] vice [employer] (ex ) Eyes and nose show the patient is 12-1/2 L in negative balance Denies any chest pain or shortness of breath Review of Systems Review of Systems: As per HPI Physical Exam Physical Exam: General: No acute distress, speaking in full sentences Psych: Awake and alert HEENT: Anicteric sclera, moist oral mucosa CVS: Regular rate and rhythm Lungs: Bilateral air entry, no wheezing noted Abdomen: Soft, obese with skin thickening noted on the pannus with erythema and skin breakdown in the abdominal folds, nontender, no rebound, no guarding Ext: lower extremity pitting edema with chronic skin changes, no calf tenderness Neuro: No focal motor deficits noted : Bales catheter in place Results & Data Results & Data Vital Signs (Past 12 Hours) Vital Signs Temp Pulse Pulse Resp BP Pulse Ox O2 Del Method 02/03/24 07:58 36.4 C L 62 16 125/77 96 Room Air 02/03/24 07:49 Room Air 02/03/24 07:27 57 L 02/03/24 04:29 36.3 C L 60 16 110/67 95 Room Air Laboratory Results Laboratory Results - last 24 hr 02/03/24 05:50 Sodium 143 Potassium 3.8 Chloride 101 Carbon Dioxide 38 H Anion Gap 4 BUN 23 Creatinine 1.26 H Est Cr Clr Drug Dosing 75.4 Est GFR ( Amer) 53.3 Est GFR (Non-Af Amer) 45.9 BUN/Creatinine Ratio 18.3 Glucose 87 Calcium 8.7 Magnesium 1.8 PG Care Time/CCT Total # of Minutes Spent Total Time Spent with Patient: Total time spent is greater than 50% in coordination of care (as documented) at patient's floor/unit and/or counseling patient: Coding Level of Care Code 20923 SUB INP/OBS CARE 2/35MIN Diagnoses Acute on chronic heart failure with preserved ejection fraction I50.33 Panniculitis M79.3 B-cell lymphoma C85.10 Hx-TIA (transient ischemic attack) Z86.73 Stage 3 chronic kidney disease N18.30 Diabetes mellitus type 2 with neurological manifestations E11.49 Stage 3b chronic kidney disease N18.32 Morbid obesity with BMI of 50.0-59.9, adult E66.01; Z68.43
[2024-02-03] MEDS: POTASSIUM CHLORIDE CRTAB 20 MEQ TABCR PO STA (17:14)
[2024-02-03] MEDS: NYSTATIN OINT 15 GM TUBE EXT SCH (20:51)
[2024-02-04 04:09] VITALS: RESP 18
[2024-02-04 04:59] LABS: BUN Creatinine Ratio 16.8 (10-20); Calcium 8.8 mg/dl (8.6-10.3); Creatinine Clr Calc Pharmacy 71.6 ml/min; Est GFR (African American) 50.8 ml/min; Est GFR (Non-African American) 43.8 ml/min; Magnesium 1.7 mg/dl (1.7-2.4); Potassium 3.6 mmol/L (3.5-5.1)
[2024-02-04] MEDS: POTASSIUM CHLORIDE CRTAB 20 MEQ TABCR PO ONE (08:01)
[2024-02-04] MEDS: BUMETANIDE 1 MG TAB PO SCH (08:04)
[2024-02-04] MEDS: cephALEXin 500 MG CAP PO SCH (09:25)
[2024-02-04 11:37] VITALS: BP 116/74; PULSE 59; TEMP 97.5; O2SAT 97
--- NOTE | 2024-02-04 12:50 | Discharge Summary ---
Discharge Summary Date of Service February 04, 2024 Principal Dx & Hospital Course #1 = Principal Diagnosis (1) Acute on chronic heart failure with preserved ejection fraction: (2) Panniculitis: (3) B-cell lymphoma: (4) Hx-TIA (transient ischemic attack): (5) Stage 3 chronic kidney disease: (6) Diabetes mellitus type 2 with neurological manifestations: (7) Stage 3b chronic kidney disease: (8) Morbid obesity with BMI of 50.0-59.9, adult: Plan 63-year-old female the past medical history significant for recurrent panniculitis, HFpEF, follicular lymphoma in situ, CKD, ANDRZEJ, asthma, previous CVA, and morbid obesity who presented to the [facility] ED from her PCPs office on 01/31/2024 due to concerns for recurrent CHF exacerbation and panniculitis. Patient had just been admitted to our service from 01/06/2024 - 01/20/2024 due to similar presentation with significant abdominal edema/erythema. During her admission she was treated with a course of daptomycin/cefepime for her panniculitis. #Acute on chronic diastolic congestive heart failure with preserved ejection fraction #History of TIA EF is 65% Patient was diuresed with 2 mg of IV Bumex twice daily and has diuresed ap proximately 15 L since admission. She has not been transitioned to her home dose of oral Bumex 2 mg p.o. twice daily and to continue with spironolactone 25 mg p.o. twice daily Continue aspirin 81 mg daily Continue Toprol-XL 25 mg daily She has been advised that she should monitor her weights daily on the same scale at the same time every morning and if weight gain of greater than 2 pounds in 24 hours then she can take an extra dose of Bumex that day Outpatient follow-up with PCP and heart failure clinic #Panniculitis ID was consulted ID saw the patient, MRSA screen was negative ID has changed antibiotics from IV cefepime plus IV daptomycin to IV cefazolin 2 g IV every 8 hours and have recommended that patient can be switched to oral Keflex 500 mg p.o. every 6 hours for total of 2 weeks until 02/12/2024 Wound care following the patient Continue nystatin to abdominal folds Outpatient follow-up with wound care clinic on discharge #CKD stage IIIb #Hypokalemia #Hypomagnesemia Outpatient sawmill manager is Dr. Wood Renal function is at baseline Potassium and magnesium levels have improved Continue oral potassium 20 mill colons p.o. daily Avoid nephrotoxic agents including NSAIDs Outpatient follow-up with PCP and sawmill manager on discharge #Type 2 diabetes mellitus with peripheral neuropathy A1c is 5.6 Resume Jardiance on discharge Continue gabapentin Outpatient follow-up with PCP #ANDRZEJ Continue CPAP at bedtime #Follicular lymphoma in situ Outpatient follow-up with oncology on discharge Patient states her PET scan has been rescheduled for 02/09/2024 I spoke to the patient about home health: She declined home health. Patient seen and examined today and she is stable for discharge home. I gone over the discharge care plan, instructions and follow-up with the patient in great detail and answered all her questions. This discharge took greater than 30 minutes to coordinate Admission HPI Per Admitting Provider Kriss is a 63-year-old female the past medical history significant for recurrent panniculitis, HFpEF, follicular lymphoma in situ, CKD, ANDRZEJ, asthma, previous CVA, and morbid obesity who presented to the [facility] ED from her PCPs office on 01/31/2024 due to concerns for recurrent CHF exacerbation and panniculitis. Patient had just been admitted to our service from 01/06/2024 - 01/20/2024 due to similar presentation with significant abdominal edema/erythema. During her admission she was treated with a course of daptomycin/cefepime for her panniculitis. She was diuresed with initial 3 mg IV Bumex twice daily but had complications of mild hypotension and elevated creatinine. She had a holiday off Bumex and midodrine on 01/17/2024 and was then resumed on 2 mg p.o. Bumex twice daily on 01/18/2024. Renal function remained at baseline after her diuretic holiday. She was standing by her PCP today after seen in their office for follow-up due to concerns for approximately 20 pound weight gain with recurrent abdominal wall edema/erythema. Patient remained stable in the ED. Labs were significant for a leukocytosis of 11 with neutrophil predominance of 7.8, stable renal function, potassium of 3.4, with high-sensitivity troponin and BNP in process. Chest x-ray was read as negative for acute findings. ECG showed normal sinus rhythm without acute changes compared to previous. Prior to admission the patient was given a dose of cefepime, daptomycin, and ordered 2 mg IV Bumex. Bales catheter was placed in the ED due to patient having limited mobility at baseline and will be requiring ongoing IV diuresis during this admission. Patient was sitting in bed in no acute distress at time of exam. Confirms that since her discharge on 01/20/2024 she has gained approximately 20-25 pounds, feels as though her swelling in the lower abdomen in the bilateral lower extremities recurred quickly. Confirms that she has been taking her 2 mg p.o. Bumex daily without recent missed doses. When asked about diet she states that she does not put extra salt on her food, states that she often cooks Pasta, ground beef, chicken for dinner. When asked if she had salt while cooking she confirms that she does but is unsure how much. She states that she normally drinks approximately 8 glasses of water a day as recommended by her distribution superintendent. No recent fever/chills, chest pain, shortness of breath, productive cough, nausea/vomiting, dysuria/hematuria, diarrhea/constipation, or recent trauma. She confirms that she is a full code and want her daughter to make medical decisions for her if she cannot make them herself. Please refer to Dr. Howell's attestation for any changes to the treatment plan Discharge Exam General: No acute distress, speaking in full sentences Psych: Awake and alert HEENT: Anicteric sclera, moist oral mucosa CVS: Regular rate and rhythm Lungs: Bilateral air entry, no wheezing noted Abdomen: Soft, obese with skin thickening noted on the pannus with improving erythema in the abdominal folds, nontender, no rebound, no guarding Ext: lower extremity trace edema with chronic skin changes, no calf tenderness Discharge Plan Discharge Items Patient Disposition: Home - Self-Care Reason For Visit: ACUTE CHF EXACERBATION, CELLULITIS, HYPOKALEMIA Discharge Diagnosis: #Acute on chronic diastolic congestive heart failure with preserved ejection fraction #History of TIA #Panniculitis #CKD stage IIIb #Type 2 diabetes mellitus with peripheral neuropathy #Follicular lymphoma in situ #ANDRZEJ Condition on Discharge: Good Activity: Resume your previous activity Non-emergency contact: Primary Care Provider Call non-emergency contact if: you have any medication questions, your symptoms worsen, your pain is not controlled, you have a fever, your wound has increased redness, your wound has increased drainage and your wound pain has increased Follow-up/Referrals: Kate Wood MD [Physician] - Enid Fournier, PANealC [Physician Sailing Master] - Awilda Eric CRNP [Primary Care Provider] - Diet: Carb Consistent or DM2, Heart Healthy and Low Sodium (2gm) Fluids: 1800ml (7 cups) Addtl Attending Provider Instructions: DISCHARGE INSTRUCTION TO PATIENT/FAMILY: Follow-up with your primary care provider within 1 week regarding: Posthospital discharge, medication review, medication refills and follow-up on all your medical problems, LABS Please take all your discharge medications, discharge information and discharge instructions to all your doctors appointments. Avoid all NSAIDs including ibuprofen, Motrin, Advil, Aleve, naproxen, meloxicam, Toradol, diclofenac Labs through PCP in 1 week: CBC, CMP, MG Follow-up with wound care clinic within 5 days for review and follow-up You have been prescribed Keflex 500 mg 4 times a day for infection in the abdominal folds as per infectious disease recommendations: Please take your medications until February 12, 2024 and follow-up with wound care clinic for review Please follow-up with your oncologist as outpatient Take Bumex 2 mg twice daily at 8 AM and 3 PM twice a day. Weigh yourself daily on the same scale at the same time in the morning. If you experience weight gain of greater than 2 pounds in 24 hours, please take an extra dose of Bumex 2 mg in addition to your twice daily dosing of Bumex. Follow-up with your outpatient sawmill manager in 1 to 2 weeks time regarding kidney disease Pending Studies at Discharge: No Stand-Alone Forms: My [employer], Smoking Cessation Medications and DC Order Prescriptions: New cephalexin 500 mg Capsule 500 mg PO QID Qty: 35 0RF Rx Instructions: TAKE UNTIL 02/12/24 metoprolol succinate 25 mg Tablet Extended Release 24 Hr 25 mg PO DAILY Qty: 30 0RF nystatin 100,000 unit/gram Ointment 1 applic EXT TID Qty: 120 0RF Continued cholecalciferol (vitamin D3) [Vitamin D3] 50 mcg (2,000 unit) capsule 2,000 unit PO TID Qty: 270 1RF allopurinol 100 mg tablet 100 mg PO BID Qty: 180 1RF (DME) CPAP Supplies Misc See Rx Instructions .Route Qty: 1 0RF Rx Instructions: As directed (DME) CPAP Machine Misc See Rx Instructions .Route Qty: 1 0RF Rx Instructions: As directed 11cm water pressure Jardiance 10 mg tablet 10 mg PO QAM Qty: 90 3RF Rx Instructions: for congestive heart failure multivitamin Tablet 1 tab PO QAM Qty: 90 1RF gabapentin 400 mg capsule 400 mg PO QID Qty: 360 0RF montelukast [Singulair] 10 mg tablet 10 mg PO QPM Qty: 90 3RF albuterol sulfate [Ventolin HFA] 90 mcg/actuation HFA aerosol inhaler 2 puff INHALATION Q4H PRN (Reason: Shortness Of Breath Or Wheezing) Qty: 18 3RF famotidine [Pepcid] 20 mg tablet 20 mg PO HS Qty: 90 3RF bumetanide 1 mg tablet 2 mg PO BID Qty: 360 3RF Rx Instructions: take every morning and every afternoon. Increase to 3 mg twice daily as needed for weight gains. fluticasone propion-salmeterol [Advair Diskus] 250-50 mcg/dose blister with device 1 inh inhalation BID Qty: 1 11RF aspirin 81 mg tablet,delayed release (DR/EC) 81 mg PO QAM duloxetine [Cymbalta] 60 mg capsule,delayed release(DR/EC) 60 mg PO BID albuterol sulfate 2.5 mg /3 mL (0.083 %) solution for nebulization 2.5 mg inhalation Q6H PRN (Reason: Shortness Of Breath) Qty: 90 1RF Rx Instructions: needed cyanocobalamin (vitamin B-12) [Vitamin B-12] 1,000 mcg tablet 1,000 mcg PO QAM Tums 300 mg (750 mg) tablet,chewable 900 mg PO QAM diclofenac sodium [Voltaren Arthritis Pain] 1 % Gel 4 g EXT QID Qty: 1 0RF Rx Instructions: purchase [id number]; may use 4 grams on your lower back, either knee, either hip, back of neck. nystatin 100,000 unit/gram powder 1 applic topical TID PRN (Reason: yeast rash under breasts, abdominal skin folds) Qty: 30 0RF spironolactone 50 mg tablet 25 mg PO BID Qty: 0 0RF Hold Instructions: Resume on 02/03/24. On hold until okayed by PCP cetirizine [Zyrtec] 10 mg tablet 10 mg PO BID buspirone 15 mg tablet 15 mg PO UD Rx Instructions: Take 15mg w/ 5mg tablet to equal 20mg by mouth three times daily. potassium chloride [Klor-Con M20] 20 mEq tablet,ER particles/crystals 20 meq PO QAM hydroxyzine HCl 25 mg tablet 25 mg PO HS sucralfate [Carafate] 1 gram tablet 1 g PO AC PRN (Reason: heartburn/stomach upset) pantoprazole [Protonix] 40 mg tablet,delayed release (DR/EC) 40 mg PO BID bupropion HCl [Wellbutrin XL] 300 mg tablet extended release 24 hr 300 mg PO QAM tramadol 50 mg tablet 50 mg PO Q6H PRN (Reason: pain, for initial therapy, max 4tabs/day) Qty: 5 0RF epinephrine 0.3 mg/0.3 mL auto-injector 0.3 mg IM UD PRN (Reason: anaphylaxis) buspirone 5 mg tablet 5 mg PO UD Qty: 0 0RF Rx Instructions: Take 5mg w/ 15mg tablet to equal 20mg by mouth three times daily. Changed acetaminophen 500 mg tablet 1,000 mg PO TID PRN (Reason: fever or pain) Qty: 90 0RF Discontinued metoprolol succinate 50 mg tablet extended release 24 hr 50 mg PO DAILY Qty: 90 3RF Rx Instructions: pt has not started medication losartan 25 mg tablet 25 mg PO QAM Hold Instructions: Resume on 02/03/24. Or hold until okayed by PCP nystatin 100,000 unit/gram cream 1 applic topical BID PRN (Reason: Rash) Discharge Orders: Discharge Order- CHF (Routine); Ordered 02/04/24 Ordered By: Henry Harper Admission Data Admit Date/Time: 01/31/24 14:37 Attending Provider: Henry Harper Admit Provider: Chris Howell Primary Care Provider: Awilda Eric Other Providers: Chris Howell Other Interventions: Discharge Summary Assessment (RN) Last Done: 02/04/24 09:35 Hospital Stay Data Consultations 01/31/24 14:42 ED Decision to Admit Stat Diagnostic Imagining Performed Chest X-Ray 01/31/24 14:07 XR chest 1V portable CLINICAL HISTORY: Congestive heart failure. COMPARISON STUDY: Chest CT October 29, 2023. Chest radiograph December 06, 2023. FINDINGS: Right shoulder arthroplasty is partially imaged. Lung volumes are normal. Lungs are clear. There is no pneumothorax or pleural effusion. Cardiac size is stable. Mediastinal contours are normal. There is no evidence for pulmonary edema. IMPRESSION: No acute cardiopulmonary findings. No change in appearance of the chest. ACT 112: Negative or not required by law. Electronically signed by: Biju Vergara M.D. 01/31/2024 2:28 PM Laboratory Results - last 48 hr 02/03/24 02/04/24 05:50 03:55 Sodium 143 141 Potassium 3.8 3.6 Chloride 101 99 Carbon Dioxide 38 H 37 H Anion Gap 4 5 BUN 23 22 Creatinine 1.26 H 1.31 H Est Cr Clr Drug Dosing 75.4 71.6 Est GFR ( Amer) 53.3 50.8 Est GFR (Non-Af Amer) 45.9 43.8 BUN/Creatinine Ratio 18.3 16.8 Glucose 87 99 Calcium 8.7 8.8 Magnesium 1.8 1.7 Pending Results Patient Have Any Pending Studies at Discharge: No Discharge Instructions Given to Patient (Per Discharging Provider) DISCHARGE INSTRUCTION TO PATIENT/FAMILY: Follow-up with your primary care provider within 1 week regarding: Posthospital discharge, medication review, medication refills and follow-up on all your medical problems, LABS Please take all your discharge medications, discharge information and discharge instructions to all your doctors appointments. Avoid all NSAIDs including ibuprofen, Motrin, Advil, Aleve, naproxen, meloxicam, Toradol, diclofenac Labs through PCP in 1 week: CBC, CMP, MG Follow-up with wound care clinic within 5 days for review and follow-up You have been prescribed Keflex 500 mg 4 times a day for infection in the abdominal folds as per infectious disease recommendations: Please take your medications until February 12, 2024 and follow-up with wound care clinic for review Please follow-up with your oncologist as outpatient Take Bumex 2 mg twice daily at 8 AM and 3 PM twice a day. Weigh yourself daily on the same scale at the same time in the morning. If you experience weight gain of greater than 2 pounds in 24 hours, please take an extra dose of Bumex 2 mg in addition to your twice daily dosing of Bumex. Follow-up with your outpatient sawmill manager in 1 to 2 weeks time regarding kidney disease Total Time Total Time Spent Total Time Spent (In Minutes): 40 Coding Level of Care Code 33744 INP/OBS DISCH >30 MIN Diagnoses Acute on chronic heart failure with preserved ejection fraction I50.33 Panniculitis M79.3 B-cell lymphoma C85.10 Hx-TIA (transient ischemic attack) Z86.73 Stage 3 chronic kidney disease N18.30 Diabetes mellitus type 2 with neurological manifestations E11.49 Stage 3b chronic kidney disease N18.32 Morbid obesity with BMI of 50.0-59.9, adult E66.01; Z68.43
== END 2024-02-04 14:58 | disposition home or self-care (01) | DRG 291 ==
LOC: ED 11:27 → INTOOBSV 14:37 → 2W 14:37 → SUATTDRO 14:37 → 2W 15:59

== ENCOUNTER 2024-02-16 14:09 | Inpatient (IN) ==
[2024-02-16 15:10] LABS: Basophils # (auto) 0.03 K/uL (0.00-0.20); Basophils % (auto) 0.3 %; Eosinophils # (auto) 0.56 K/uL (0.00-0.50); Eosinophils % (auto) 5.9 %; Hematocrit (blood only) 40.7 % (37.0-47.0); Hemoglobin 12.9 g/dl (12.0-16.0); Immature Granulocytes # (auto) 0.02 K/uL (0.01-0.20); Immature Granulocytes % (auto) 0.2 %; Lymphocytes # (auto) 1.99 K/uL (1.20-3.40); Lymphocytes % (auto) 21.1 %; Mean Corpuscular Hemoglobin 27.3 pg (25.0-34.0); Mean Corpuscular Hgb Conc 31.7 g/dL (32.0-36.0); Mean Corpuscular Volume 86.2 fL (80.0-100.0); Monocytes % (auto) 6.3 %; Neutrophils # (auto) 6.25 K/uL (1.40-6.50); Neutrophils % (auto) 66.2 %; Platelet Count 310 K/uL (130-400); RDW Standard Deviation 43.8 fL (36.4-46.3); Red Blood Count 4.72 M/uL (4.20-5.40); White Blood Count 9.45 K/ul (4.8-10.8)
[2024-02-16 15:28] LABS: Alanine Aminotransferase 13 U/L (7-52); Albumin Level 3.8 gm/dl (3.4-5.0); Alkaline Phosphatase 86 U/L (34-104); Anion Gap 7 (3-11); Aspartate Aminotransferase 15 U/L (13-39); BUN Creatinine Ratio 11.8 (10-20); Bilirubin,Total 0.5 mg/dl (0.2-1.0); Blood Urea Nitrogen 17 mg/dl (6-23); Calcium 9.1 mg/dl (8.6-10.3); Carbon Dioxide 34 mmol/L (21-32); Chloride 100 mmol/L (98-107); Globulin 3.7 gm/dl (2.5-4.0); Glucose 92 mg/dl (70-99(Fasting)); Potassium 3.4 mmol/L (3.5-5.1); Sodium 141 mmol/L (136-145); Total Protein 7.5 gm/dl (6.0-8.3)
[2024-02-16 15:33] LABS: Troponin I High Sensitivity 4.5 pg/ml (0-14)
--- NOTE | 2024-02-16 15:49 | Emergency Department Note ---
Impression & Plan Abdominal wall cellulitis, Cellulitis of left leg ED Provider Note NAME: CELIO ARGUELLES AGE: 63 SEX: F : 1960 ARRIVES VIA: Walk-In INFORMANT: Patient, ED PROVIDER(S): Rafiq Souza DO CHIEF COMPLAINT: Cellulitis HPI: The patient is a 63-year-old female who presented to the emergency department for an evaluation of cellulitis. The patient has a history of cellulitis on her lower abdominal wall as well as her left leg. The patient was recently admitted to our facility for similar complaints. She went home on oral antibiotics but symptoms worsen. She went to see her family doctor's office and was sent to the emergency department to return for IV antibiotics and readmission. ROS: See above HPI for pertinent positives & negatives. A total of 10 systems reviewed and were otherwise negative. PAST MEDICAL HISTORY: See Below PAST SURGICAL HISTORY: See Below FAMILY HISTORY: See Below SOCIAL HISTORY: See Below HOME MEDICATIONS: See Below ALLERGIES: See Below VITALS: See Below PHYSICAL EXAMINATION: GENERAL: Patient is awake alert in no acute distress patient is resting comfortably and showing no signs of anxiety EYES: The conjunctivae are clear. The pupils are round and reactive. EARS, NOSE, MOUTH AND THROAT: The nose is without any evidence of any deformity. Mucous membranes are moist. Tongue is midline. NECK: The neck is nontender and supple. RESPIRATORY: Normal respiratory effort is noted there is no evidence of wheezing rhonchi or rales CARDIOVASCULAR: Regular rate and rhythm noted there no murmurs rubs or gallops normal S1 normal S2. GASTROINTESTINAL: The abdomen is soft. Abdomen is nontender. MUSCULOSKELETAL/EXTREMITIES: There is no evidence of gross deformity full range of motion is noted in the hips and shoulders. SKIN: Chronic venous stasis changes were noted in both legs. There was significant swelling and cellulitis in the abdominal wall. NEUROLOGIC: Patient is awake alert and oriented x3 MEDICAL DECISION MAKING: The patient is a 63-year-old female who presented to the emergency department for an evaluation of cellulitis on her abdominal wall. The patient has a history of this in the past. The patient has been admitted for this previously with. She is on oral antibiotics but the symptoms continue to worsen. She was sent to the emergency department by her primary care physician for further evaluation as well as inpatient management. The patient was treated with IV antibiotics in the emergency department. Laboratory studies are reassuring. I discussed this case with the [facility] hospitalist group. Triage Nursing notes reviewed. Prior medical records reviewed Vital Signs: reviewed and remarkable for no significant abnormalities Differential diagnosis: Cellulitis, abscess, MRSA infection, DVT, necrotizing fasciitis, dermatitis, drug eruption, allergic reaction, as well as other pathologies. ER treatment provided: See below Diagnostics interpreted by me: ECG: none Cardiac Monitoring: An order was placed for continuous cardiac monitoring. The monitor shows a rate of 76 bpm with sinus rhythm. Laboratory studies: As stated above and show below. Imaging studies: See below. Consultation(s): I discussed this case with Lilly who [facility] Past Med/Surg History Problem List (Updated 02/16/24 @ 18:30 by Rafiq Souza DO) Cellulitis of left leg (Acute) Abdominal wall cellulitis (Acute) Hypokalemia Weakness (Acute) Weight gain (Acute) CHF (congestive heart failure) (Acute) Panniculitis (Acute) Acute kidney injury superimposed on CKD Obesity (Acute) Failure of outpatient treatment (Acute) Cellulitis (Acute) Supraclavicular lymphadenopathy Acute on chronic heart failure with preserved ejection fraction Open wound of abdomen (Acute) Morbid obesity HAYES (dyspnea on exertion) (Acute) CKD (chronic kidney disease) stage 3, GFR 30-59 ml/min (Acute) Acute exacerbation of CHF (congestive heart failure) (Acute) Cellulitis (Acute) Cellulitis of suprapubic region Acute on chronic heart failure VARINDER (acute kidney injury) Osteoarthritis of hip Constipation Lymphoma Hip pain, right Failure of outpatient treatment (Acute) CRF (chronic renal failure) (Acute) Edema of both lower extremities (Acute) Fluid overload (Acute) Edema of abdominal wall (Acute) Ulcer of both feet Volume overload Hx MRSA infection 09/2021 s/p left knee infection > resolved > continues with doxycycline daily for prevention Lymphadenopathy of left cervical region Urticaria Chronic ulcer of left foot with fat layer exposed Diabetic foot ulcer (Acute) Diabetes mellitus type 2 with neurological manifestations Candidiasis of skin Solitary kidney, congenital Bilateral hip pain Low back pain Weakness (Acute) Lower extremity edema (Acute) CHF (congestive heart failure) (Acute) Abdominal pannus Fatty liver Dependent lymphedema Stage 3b chronic kidney disease Anemia reason for procedure. iron infusions recently. 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 Other ovarian cyst, left side Vitamin D deficiency Peripheral neuropathy Lumbar spinal stenosis 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- DISCOVERED WITH INCIDENTAL IMAGING Gout CKD (chronic kidney disease) stage 3, GFR 30-59 ml/min monitoring Chronic back pain Acid reflux Medical History Mast cell disease B-cell lymphoma Hx-TIA (transient ischemic attack) 2017 > ASA for prevention > no residual effects Hx of sepsis 09/2021 r/t left knee infection Hypertension Lumbar spinal stenosis Arthritis Allergic rhinitis Gout Other ovarian cyst, left side present, just monitoring Acid reflux Severe obstructive sleep apnea cpap Stage 3 chronic kidney disease follows with Dr. Wood Fatty liver CHF (congestive heart failure) follows with Ashlyn Griffin Solitary kidney, congenital Diabetes mellitus, type 2 Ulcer of foot one ulcer present to bottom of bilat feet > follows with wound clinic at [facility], improving per pt Chronic ulcer of right foot with fat layer exposed sees wound clinic > bilat feet at present History of COVID-19 09/2021 Iron deficiency anemia Venous stasis of both lower extremities MDD (major depressive disorder), recurrent episode, moderate Ambulatory dysfunction uses walker Depression with anxiety Degenerative joint disease, shoulder, right Lymphedema left leg and abdomen / chronic Asthma well controlled, rare res inh use Hyperlipidemia no meds Surgical History Hx of biopsy (12/29/23) Left Neck Lymph Node Biopsy(Left) - Yohan Maldonado, , FACS History of insertion of central venous access port removed in 2022 History of revision of total replacement of left knee joint History of cardiac cath remote hx over 20 yrs ago, no stents History of colonoscopy History of esophagogastroduodenoscopy (EGD) History of bilateral knee replacement (10/16/22) H/O knee surgery (12/2021) L knee washout w/ polyexchange S/P tonsillectomy and adenoidectomy Status post total shoulder arthroplasty (10/17/18) right History of carpal tunnel release B/L H/O ventral hernia repair History of appendectomy History of cholecystectomy Family History Mother Diabetes Coronary heart disease Myocardial infarction S/P CABG x 3 Hypertension Gallbladder disease Sister Hodgkins lymphoma Brother Kidney disease Grandmother Breast cancer Aunt Ovarian cancer Father , 02/11/20. Peripheral vascular disease Daughter Diabetes Other Cancer No family history of adverse response to anesthesia Denies family history of Prostate cancer Colorectal cancer Social History Smoking Status: Never smoker Tobacco Type: Cigarettes Age Started Using Tobacco: 22; Age Quit Using Tobacco: 24; Second Hand Exposure: No; Do You Dip or Chew Tobacco: No; Hx Alcohol Use: No Hx Substance Use: No Preferred Language: Hebrew 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 Ability: Effective Visual Impairment: Limited Hearing Ability: Normal Slat Basket Top Maker Required: No Beliefs That Will Affect Care: None marital status: marital status details: ; lives with parents & 1 daughter Current Living Situation: Alone Current Living Situation Comment: Lives with mother and daughter current occupational status: disabled other: worked in [employer] in [employer]; 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 Feels Safe at Home: Yes Safety Concerns: Feels Safe At This Time Childhood Exposure to Second-Hand Smoke: No Diet: regular Diet Comment: regular caffeine: No Dental Care, Regularly: No Physical Activity Frequency: Does not Exercise Seatbelt Use: always Sunscreen Use: Yes Assistive Devices: Denture - Upper and Walker Allergies Allergies Allergy/AdvReac Type Severity Reaction Status Date / Time Corticosteroids Allergy Severe Anaphylaxis Unverified 02/16/24 09:00 (Glucocorticoids) dog dander Allergy Intermediate Rash Verified 02/16/24 09:00 morphine Allergy Intermediate mouth and Verified 02/16/24 09:00 face swells Penicillins Allergy Intermediate rash/hives Verified 02/16/24 09:00 adhesive Allergy Mild Skin rash Verified 02/16/24 09:00 localized zolpidem Allergy Unknown Unknown Verified 02/16/24 09:00 pregabalin AdvReac Intermediate "makes Verified 02/16/24 09:00 goofbert" Home Meds Home Medications Medication Instructions Recorded Confirmed calcium carbonate (Tums) 900 mg PO QAM 03/03/22 02/16/24 cyanocobalamin (vitamin B-12) 1,000 mcg PO QAM 03/03/22 02/16/24 1,000 mcg tablet (Vitamin B-12) aspirin 81 mg tablet,delayed 81 mg PO QAM 06/25/23 02/16/24 release duloxetine 60 mg capsule,delayed 60 mg PO BID 06/25/23 02/16/24 release (Cymbalta) buspirone 15 mg tablet 15 mg PO UD 10/20/23 02/16/24 cetirizine 10 mg tablet (Zyrtec) 10 mg PO BID 10/20/23 02/16/24 hydroxyzine HCl 25 mg tablet 25 mg PO HS 12/24/23 02/16/24 potassium chloride 20 mEq 20 meq PO QAM 12/24/23 02/16/24 tablet,extended release(part/cryst) (Klor-Con M) bupropion HCl 300 mg 24 hr tablet, 300 mg PO QAM 12/29/23 02/16/24 extended release (Wellbutrin XL) pantoprazole 40 mg tablet,delayed 40 mg PO BID 12/29/23 02/16/24 release (Protonix) sucralfate 1 gram tablet (Carafate) 1 g PO AC PRN heartburn/stomach 12/29/23 02/16/24 upset epinephrine 0.3 mg/0.3 mL 0.3 mg IM UD PRN anaphylaxis 01/06/24 02/16/24 injection, auto-injector Previous Rx's Medication Instructions Recorded fluticasone 250 mcg-salmeterol 50 1 inh inhalation BID #1 inhaler 06/25/21 mcg/dose blistr powdr for inhalation (Advair Diskus) cholecalciferol (vitamin D3) 50 2,000 unit PO TID #270 caps 07/18/21 mcg (2,000 unit) capsule (Vitamin D3) albuterol sulfate 2.5 mg/3 mL 2.5 mg (3 mL) inhalation Q6H PRN 06/25/23 (0.083 %) solution for nebulization Shortness Of Breath #90 mL diclofenac sodium 1 % topical gel 4 g EXT QID #1 tube 08/30/23 (Voltaren Arthritis Pain) nystatin 100,000 unit/gram topical 1 applic topical TID PRN yeast 08/30/23 powder rash under breasts, abdominal skin folds #30 grams allopurinol 100 mg tablet 100 mg PO BID #180 tabs 09/21/23 CPAP Supplies #1 ea 09/28/23 CPAP Machine #1 ea 09/29/23 spironolactone 50 mg tablet 25 mg (1/2 x 50 mg) PO BID #0 tabs 11/05/23 empagliflozin 10 mg tablet 10 mg PO QAM #90 tabs 12/02/23 (Jardiance) multivitamin 1 tab PO QAM #90 tabs 12/20/23 gabapentin 400 mg capsule 400 mg PO QID #360 caps 12/24/23 tramadol 50 mg tablet 50 mg PO Q6H PRN pain, for initial 12/29/23 therapy, max 4tabs/day #5 tabs montelukast 10 mg tablet 10 mg PO QPM #90 tabs 01/03/24 (Singulair) albuterol sulfate 90 mcg/actuation 2 puff inhalation Q4H PRN 01/04/24 aerosol inhaler (Ventolin HFA) Shortness Of Breath Or Wheezing #18 grams famotidine 20 mg tablet (Pepcid) 20 mg PO HS #90 tabs 01/10/24 bumetanide 1 mg tablet 2 mg (2 x 1 mg) PO BID #360 tabs 01/20/24 acetaminophen 500 mg tablet 1,000 mg (2 x 500 mg) PO TID PRN 02/04/24 fever or pain #90 tabs buspirone 5 mg tablet 5 mg PO UD #0 tabs 02/04/24 metoprolol succinate 25 mg 25 mg PO DAILY #30 tabs 02/04/24 tablet,extended release 24 hr nystatin 100,000 unit/gram topical 1 applic EXT TID #120 grams 02/04/24 ointment Results & Data (ED) Vital Signs Vital Signs - 24 hr 02/16/24 14:12 02/16/24 15:34 02/16/24 15:34 Temperature 37 C Temperature Source Temporal Artery Scan Pulse Rate 74 Pulse Rate [Apical] 78 Respiratory Rate 18 23 Respiratory Effort / Characteristics Non-Labored Spontaneous Respiratory Depth Normal Blood Pressure 134/78 Blood Pressure [Right Arm] 118/67 Blood Pressure Mean 96 Blood Pressure Mean [Right Arm] 84 Blood Pressure Position Sitting Pulse Oximetry 98 99 99 Oxygen Delivery Method Room Air Room Air Room Air Sepsis Recent Fever Within 48 Hours No Sepsis New/Unexplained Change in Mental Status No Sepsis Action Taken by Nursing No Action Required 02/16/24 15:34 02/16/24 15:59 Temperature Temperature Source Pulse Rate 77 Pulse Rate [Apical] Respiratory Rate Respiratory Effort / Characteristics Respiratory Depth Blood Pressure Blood Pressure [Right Arm] Blood Pressure Mean Blood Pressure Mean [Right Arm] Blood Pressure Position Pulse Oximetry 99 Oxygen Delivery Method Room Air Sepsis Recent Fever Within 48 Hours Sepsis New/Unexplained Change in Mental Status Sepsis Action Taken by Half-Way Medications Current Medication List: was personally reviewed by me Laboratory Data Attestation: I reviewed the patient's lab results. 02/16/24 14:40 02/16/24 14:40 Lab Results 02/16/24 Range/Units 14:40 WBC 9.45 (4.8-10.8) K/ul RBC 4.72 (4.20-5.40) M/uL Hgb 12.9 (12.0-16.0) g/dl Hct 40.7 (37.0-47.0) % MCV 86.2 (80.0-100.0) fL MCH 27.3 (25.0-34.0) pg MCHC 31.7 L (32.0-36.0) g/dL RDW Std Deviation 43.8 (36.4-46.3) fL RDW Coeff of Cleo 14.0 (11.5-14.5) % Plt Count 310 (130-400) K/uL MPV 10.0 (9.4-12.4) fL Immature Gran % (Auto) 0.2 % Neut % (Auto) 66.2 % Lymph % (Auto) 21.1 % Chambers % (Auto) 6.3 % Eos % (Auto) 5.9 % Baso % (Auto) 0.3 % Neut # (Auto) 6.25 (1.40-6.50) K/uL Lymph # (Auto) 1.99 (1.20-3.40) K/uL Chambers # (Auto) 0.60 H (0.11-0.59) K/uL Eos # (Auto) 0.56 H (0.00-0.50) K/uL Baso # (Auto) 0.03 (0.00-0.20) K/uL Immature Gran # (Auto) 0.02 (0.01-0.20) K/uL PT 10.9 (9.0-12.0) Seconds INR 1.0 (0.9-1.1) APTT 29 (21-31) Seconds PTT Ratio 1.1 Sodium 141 (136-145) mmol/L Potassium 3.4 L (3.5-5.1) mmol/L Chloride 100 (98-107) mmol/L Carbon Dioxide 34 H (21-32) mmol/L Anion Gap 7 (3-11) BUN 17 (6-23) mg/dl Creatinine 1.44 H (0.6-1.2) mg/dl Est Cr Clr Drug Dosing Not Reportable eGFR 41.38 BUN/Creatinine Ratio 11.8 (10-20) Glucose 92 (70-99(Fasting)) mg/dl Calcium 9.1 (8.6-10.3) mg/dl Total Bilirubin 0.5 (0.2-1.0) mg/dl AST 15 (13-39) U/L ALT 13 (7-52) U/L Alkaline Phosphatase 86 (34-104) U/L Troponin I High Sens 4.5 (0-14) pg/ml C-Reactive Protein 4.52 H (0-0.5) mg/dl B-Natriuretic Peptide 17 (0-100) pg/ml Total Protein 7.5 (6.0-8.3) gm/dl Albumin 3.8 (3.4-5.0) gm/dl Globulin 3.7 (2.5-4.0) gm/dl Albumin/Globulin Ratio 1.0 (0.9-2) Procalcitonin < 0.02 (0-0.5) ng/ml Administered Medications Discontinued Medications Ceftriaxone Sodium (Rocephin) 2,000 mg in 50 mls @ 100 mls/hr IV NOW STA Stop: 02/16/24 16:16 Last Infusion: 02/16/24 16:37 Dose: Infused Documented By: Admin: 02/16/24 16:04 Dose: 100 mls/hr Documented By: FLORESITA Potassium Chloride (Potassium Chloride Crtab 20 Meq Tabcr) 40 meq PO NOW STA Stop: 02/16/24 16:53 Last Admin: 02/16/24 17:07 Dose: 40 meq Documented By: FLORESITA Imaging Data Attestation: I personally reviewed and interpreted this imaging study as follows: My Impression: 1 view chest x-ray was obtained in the emergency department. My interpretation is no free air or definite infiltrate, final report below. Radiologist's Impression: Chest X-Ray 02/16/24 14:15 XR chest 1V portable HISTORY: 63 years-old Female Chest pain, nonspecific COMPARISON: 01/31/2024 TECHNIQUE: AP view of the chest FINDINGS: Right shoulder arthroplasty. Cardiomediastinal and hilar silhouettes are unchanged. No pneumothorax, pleural effusion or airspace consolidation. Bones appear grossly intact. IMPRESSION: No acute process. ACT 112: Negative or not required by law. The above report was generated using voice recognition software. It may contain grammatical, syntax or spelling errors. Electronically signed by: Reinaldo Todd M.D. 02/16/2024 4:18 PM Discharge Plan Visit Data Chief Complaint: Swelling/Edema to Extremity Stated Complaint: SWELLING IN STOMACH AND LT LEG ED Provider: Rafiq Souza Discharge Problem: Abdominal wall cellulitis, Cellulitis of left leg Patient Disposition: Admitted As Inpatient Discharge Instructions Interventions: ED Discharge Assessment Last Done: 02/16/24 17:20
[2024-02-16 15:55] LABS: Partial Thromboplastin Ratio 1.1; Partial Thromboplastin Time 29 Seconds (21-31); Prothrombin Time 10.9 Seconds (9.0-12.0)
[2024-02-16] MEDS: cefTRIAXone SODIUM 2,000 MG/50 ML BAG IV STA (16:04)
[2024-02-16 16:05] LABS: C Reactive Protein 4.52 mg/dl (0-0.5)
--- NOTE | 2024-02-16 16:19 | XRay Report ---
XR chest 1V portable HISTORY: 63 years-old Female Chest pain, nonspecific COMPARISON: 01/31/2024 TECHNIQUE: AP view of the chest FINDINGS: Right shoulder arthroplasty. Cardiomediastinal and hilar silhouettes are unchanged. No pneumothorax, pleural effusion or airspace consolidation. Bones appear grossly intact. IMPRESSION: No acute process. ACT 112: Negative or not required by law. The above report was generated using voice recognition software. It may contain grammatical, syntax o r spelling errors. Electronically signed by: Reinaldo Todd M.D. 02/16/2024 4:18 PM
--- NOTE | 2024-02-16 16:47 | History & Physical Report ---
Date of Service February 16, 2024 Assessment & Plan (1) Panniculitis: Plan: Acute and recurrent - Admit in patient to med/tele - No cultures collected - Dose of ceftriaxone x1, broaden coverage to cefepime 2g IV q8 and daptomycin 4mg/kg q24 - Pt has a h/o MRSA, although last admission MRSA screen was negative, and was to be on ppx Doxycycline which was not resumed at the time she completed her Keflex on 02/11 - Nystatin powder to folds - AM labs including CBC, BMP, Mag - Consult mud plant operator, appreciate assistance (2) CHF (congestive heart failure): Plan: Acute on chronic HFpEF - Initiate diuresis with IV Bumex 4mg q12 - Would advise increased dose upon transition back to oral (not to resume 2mg BID, but would consider 6mg total) - Continue spironolactone 25mg bid - Low salt diet and 1800 cc fluid restriction - Obtain daily standing weights - I/O q shift and place phillips for accurate output measurement - Follow up with HF clinic upon d/c (3) Hypokalemia: Plan: Acute - Treat with dose of KCl 40meq po x1 - BMP in AM (4) Diabetes mellitus type 2 with neurological manifestations: Plan: Chronic - Controlled with oral meds, a1c 5.6% - Check one touches ac and hs - add SSI coverage if BSG >180 - Continue Jardiance 10mg daily - Continue gabapentin 400mg QID (5) CKD (chronic kidney disease) stage 3, GFR 30-59 ml/min: Plan: Chronic - Baseline creatinine 1.2-1.5 - Monitor in setting of IV diuresis - Avoid nephrotoxic meds and renally adjust when appropriate Plan Chronic medical issues - HTN - continue metoprolol tartrate - GERD - continue carafate, protonix and famotidine - ANDRZEJ - continue cpap at hs - Depression/anxiety - continue duloxetine, buspirone, and wellbutrin VTE ppx with Lovenox 40mg SQ BID. AM labs ordered. Above plan of care discussed with Dr. Varma who will also see and evaluate this patient. Further orders as warranted by attending. History of Present Illness Chief Complaint: Redness/swelling of abdominal folds, weight gain 22 lbs x1 week Primary Care Provider: CARRIE Monaco is a 63 yo F with a pmhx of morbid obesity, DMT2 with peripheral neuropathy, HFpEF, and recurrent panniculitis who presents to the ER today c/o redness, swelling and tenderness of her abdominal folds as well as a weight gain of 22 lbs in the past week. She was hospitalized most recently 01/30-02/03 for panniculitis and HF exacerbation. She was empirically started on daptomycin and cefepime, seen by ID and transitioned to Ancef, then discharged on course of Keflex which she completed on 02/11. She was also diuresed and then appears to have resumed her usual oral diuretic regimen of Bumex 2mg BID + spironolactone 25mg BID. She notes that shortly after stopping her antibiotics, the redness and swelling began and progressed. She denies fever or chills, but does endorse soreness of the area. She was seen by her PCP for on 02/14 who recommended that she return to the ER for readmission and IV antibiotics. Today, she is noted to be afebrile with a normal wbc count and no shift. She has a creatinine of 1.44 and a potassium of 3.4. Remaining lab studies are unremarkable. She was medicated with a dose of ceftriaxone 2g IV x1 and was referred to the hospital medicine team for admission. Allergies Allergy/AdvReac Type Severity Reaction Status Date / Time Corticosteroids Allergy Severe Anaphylaxis Unverified 02/16/24 09:00 (Glucocorticoids) dog dander Allergy Intermediate Rash Verified 02/16/24 09:00 morphine Allergy Intermediate mouth and Verified 02/16/24 09:00 face swells Penicillins Allergy Intermediate rash/hives Verified 02/16/24 09:00 adhesive Allergy Mild Skin rash Verified 02/16/24 09:00 localized zolpidem Allergy Unknown Unknown Verified 02/16/24 09:00 pregabalin AdvReac Intermediate "makes Verified 02/16/24 09:00 goclyde" Home Medications Medication Instructions Recorded Confirmed Type fluticasone 250 mcg-salmeterol 50 1 inh inhalation BID #1 inhaler 06/25/21 02/16/24 Rx mcg/dose blistr powdr for inhalation (Advair Diskus) cholecalciferol (vitamin D3) 50 2,000 unit PO TID #270 caps 07/18/21 02/16/24 Rx mcg (2,000 unit) capsule (Vitamin D3) calcium carbonate (Tums) 900 mg PO QAM 03/03/22 02/16/24 History cyanocobalamin (vitamin B-12) 1,000 mcg PO QAM 03/03/22 02/16/24 History 1,000 mcg tablet (Vitamin B-12) albuterol sulfate 2.5 mg/3 mL 2.5 mg (3 mL) inhalation Q6H PRN 06/25/23 02/16/24 Rx (0.083 %) solution for nebulization Shortness Of Breath #90 mL aspirin 81 mg tablet,delayed 81 mg PO QAM 06/25/23 02/16/24 History release duloxetine 60 mg capsule,delayed 60 mg PO BID 06/25/23 02/16/24 History release (Cymbalta) diclofenac sodium 1 % topical gel 4 g EXT QID #1 tube 08/30/23 02/16/24 Rx (Voltaren Arthritis Pain) nystatin 100,000 unit/gram topical 1 applic topical TID PRN yeast 08/30/23 02/16/24 Rx powder rash under breasts, abdominal skin folds #30 grams allopurinol 100 mg tablet 100 mg PO BID #180 tabs 09/21/23 02/16/24 Rx CPAP Supplies #1 ea 09/28/23 02/16/24 Rx CPAP Machine #1 ea 09/29/23 02/16/24 Rx buspirone 15 mg tablet 15 mg PO UD 10/20/23 02/16/24 History cetirizine 10 mg tablet (Zyrtec) 10 mg PO BID 10/20/23 02/16/24 History spironolactone 50 mg tablet 25 mg (1/2 x 50 mg) PO BID #0 tabs 11/05/23 02/16/24 Rx empagliflozin 10 mg tablet 10 mg PO QAM #90 tabs 12/02/23 02/16/24 Rx (Jardiance) multivitamin 1 tab PO QAM #90 tabs 12/20/23 02/16/24 Rx gabapentin 400 mg capsule 400 mg PO QID #360 caps 12/24/23 02/16/24 Rx hydroxyzine HCl 25 mg tablet 25 mg PO HS 12/24/23 02/16/24 History potassium chloride 20 mEq 20 meq PO QAM 12/24/23 02/16/24 History tablet,extended release(part/cryst) (Klor-Con M) bupropion HCl 300 mg 24 hr tablet, 300 mg PO QAM 12/29/23 02/16/24 History extended release (Wellbutrin XL) pantoprazole 40 mg tablet,delayed 40 mg PO BID 12/29/23 02/16/24 History release (Protonix) sucralfate 1 gram tablet (Carafate) 1 g PO AC PRN heartburn/stomach 12/29/23 02/16/24 History upset tramadol 50 mg tablet 50 mg PO Q6H PRN pain, for initial 12/29/23 02/16/24 Rx therapy, max 4tabs/day #5 tabs montelukast 10 mg tablet 10 mg PO QPM #90 tabs 01/03/24 02/16/24 Rx (Singulair) albuterol sulfate 90 mcg/actuation 2 puff inhalation Q4H PRN 01/04/24 02/16/24 Rx aerosol inhaler (Ventolin HFA) Shortness Of Breath Or Wheezing #18 grams epinephrine 0.3 mg/0.3 mL 0.3 mg IM UD PRN anaphylaxis 01/06/24 02/16/24 History injection, auto-injector famotidine 20 mg tablet (Pepcid) 20 mg PO HS #90 tabs 01/10/24 02/16/24 Rx bumetanide 1 mg tablet 2 mg (2 x 1 mg) PO BID #360 tabs 01/20/24 02/16/24 Rx acetaminophen 500 mg tablet 1,000 mg (2 x 500 mg) PO TID PRN 02/04/24 02/16/24 Rx fever or pain #90 tabs buspirone 5 mg tablet 5 mg PO UD #0 tabs 02/04/24 02/16/24 Rx metoprolol succinate 25 mg 25 mg PO DAILY #30 tabs 02/04/24 02/16/24 Rx tablet,extended release 24 hr nystatin 100,000 unit/gram topical 1 applic EXT TID #120 grams 02/04/24 02/16/24 Rx ointment Past Med/Surg History Problem List (Updated 02/16/24 @ 18:30 by Rafiq Souaz DO) Cellulitis of left leg (Acute) Abdominal wall cellulitis (Acute) Hypokalemia Weakness (Acute) Weight gain (Acute) CHF (congestive heart failure) (Acute) Panniculitis (Acute) Acute kidney injury superimposed on CKD Obesity (Acute) Failure of outpatient treatment (Acute) Cellulitis (Acute) Supraclavicular lymphadenopathy Acute on chronic heart failure with preserved ejection fraction Open wound of abdomen (Acute) Morbid obesity HAYES (dyspnea on exertion) (Acute) CKD (chronic kidney disease) stage 3, GFR 30-59 ml/min (Acute) Acute exacerbation of CHF (congestive heart failure) (Acute) Cellulitis (Acute) Cellulitis of suprapubic region Acute on chronic heart failure VARINDER (acute kidney injury) Osteoarthritis of hip Constipation Lymphoma Hip pain, right Failure of outpatient treatment (Acute) CRF (chronic renal failure) (Acute) Edema of both lower extremities (Acute) Fluid overload (Acute) Edema of abdominal wall (Acute) Ulcer of both feet Volume overload Hx MRSA infection 09/2021 s/p left knee infection > resolved > continues with doxycycline daily for prevention Lymphadenopathy of left cervical region Urticaria Chronic ulcer of left foot with fat layer exposed Diabetic foot ulcer (Acute) Diabetes mellitus type 2 with neurological manifestations Candidiasis of skin Solitary kidney, congenital Bilateral hip pain Low back pain Weakness (Acute) Lower extremity edema (Acute) CHF (congestive heart failure) (Acute) Abdominal pannus Fatty liver Dependent lymphedema Stage 3b chronic kidney disease Anemia reason for procedure. iron infusions recently. 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 Other ovarian cyst, left side Vitamin D deficiency Peripheral neuropathy Lumbar spinal stenosis 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- DISCOVERED WITH INCIDENTAL IMAGING Gout CKD (chronic kidney disease) stage 3, GFR 30-59 ml/min monitoring Chronic back pain Acid reflux Medical History Mast cell disease B-cell lymphoma Hx-TIA (transient ischemic attack) 2017 > ASA for prevention > no residual effects Hx of sepsis 09/2021 r/t left knee infection Hypertension Lumbar spinal stenosis Arthritis Allergic rhinitis Gout Other ovarian cyst, left side present, just monitoring Acid reflux Severe obstructive sleep apnea cpap Stage 3 chronic kidney disease follows with Dr. Wood Fatty liver CHF (congestive heart failure) follows with Ashlyn Gaby Solitary kidney, congenital Diabetes mellitus, type 2 Ulcer of foot one ulcer present to bottom of bilat feet > follows with wound clinic at [place], improving per pt Chronic ulcer of right foot with fat layer exposed sees wound clinic > bilat feet at present History of COVID-19 09/2021 Iron deficiency anemia Venous stasis of both lower extremities MDD (major depressive disorder), recurrent episode, moderate Ambulatory dysfunction uses walker Depression with anxiety Degenerative joint disease, shoulder, right Lymphedema left leg and abdomen / chronic Asthma well controlled, rare res inh use Hyperlipidemia no meds Surgical History Hx of biopsy (12/29/23) Left Neck Lymph Node Biopsy(Left) - Yohan Maldonado DO, FACS History of insertion of central venous access port removed in 2022 History of revision of total replacement of left knee joint History of cardiac cath remote hx over 20 yrs ago, no stents History of colonoscopy History of esophagogastroduodenoscopy (EGD) History of bilateral knee replacement (10/16/22) H/O knee surgery (12/2021) L knee washout w/ polyexchange S/P tonsillectomy and adenoidectomy Status post total shoulder arthroplasty (10/17/18) right History of carpal tunnel release B/L H/O ventral hernia repair History of appendectomy History of cholecystectomy Family History Mother Diabetes Coronary heart disease Myocardial infarction S/P CABG x 3 Hypertension Gallbladder disease Sister Hodgkins lymphoma Brother Kidney disease Grandmother Breast cancer Aunt Ovarian cancer Father , 02/11/20. Peripheral vascular disease Daughter Diabetes Other Cancer No family history of adverse response to anesthesia Denies family history of Prostate cancer Colorectal cancer Social History Smoking Status: Never smoker Tobacco Type: Cigarettes Age Started Using Tobacco: 22; Age Quit Using Tobacco: 24; Second Hand Exposure: No; Do You Dip or Chew Tobacco: No; Hx Alcohol Use: No Hx Substance Use: No Preferred Language: Turkmen 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 Ability: Effective Visual Impairment: Limited Hearing Ability: Normal Technical Assistant Required: No Beliefs That Will Affect Care: None marital status: marital status details: ; lives with parents & 1 daughter Current Living Situation: Alone Current Living Situation Comment: Lives with mother and daughter current occupational status: disabled other: worked in [employer] in [employer]; 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 Denies fever, chills, fatigue, headache, nasal congestion, sore throat, cough, chest pain, shortness of breath, palpitations, orthopnea, PND, abdominal pain, n/v/d, constipation, dysuria, hematuria, frequency, back pain, joint pain, easy bruising or bleeding. Physical Exam 2 Physical Exam: GENERAL: 63 yo morbidly obese WF. NAD. EYES: EOMI. PERRLA. Anicteric. HENT: Moist mucous membranes. No scleral icterus. No cervical lymphadenopathy. LUNGS: Clear to auscultation bilaterally. No accessory muscle use. No W/R/R. CARDIOVASCULAR: Regular rate and rhythm +murmur. ABDOMEN: Soft, nondistended. Large pannus with erythema and edema worse along the left lateral aspect and overlying bottom portion of pannus. BS normoactive x 4 quad. EXTREMITIES: +1 b/l LE edema. Non-tender. Peripheral pulses +2/4. NEUROLOGIC: A&O x3. No focal neurological deficits. CN II-XII grossly intact. PSYCHIATRIC: Cooperative. Appropriate mood and affect. SKIN: Warm, dry, intact. Redness noted over both lower extremities from ankle to mid calf. Not hot. Not open sores. Results & Data Results & Data Vital Signs (Past 12 Hours) Vital Signs Temp Pulse Pulse Resp BP BP Pulse Ox 02/16/24 15:59 77 02/16/24 15:34 99 02/16/24 15:34 99 02/16/24 15:34 78 23 118/67 99 02/16/24 14:12 37 C 74 18 134/78 98 O2 Del Method 02/16/24 15:59 02/16/24 15:34 Room Air 02/16/24 15:34 Room Air 02/16/24 15:34 Room Air 02/16/24 14:12 Room Air Laboratory Results 02/16/24 14:40 02/16/24 14:40 Diagnostic Findings Chest X-Ray 02/16/24 14:15 XR chest 1V portable HISTORY: 63 years-old Female Chest pain, nonspecific COMPARISON: 01/31/2024 TECHNIQUE: AP view of the chest FINDINGS: Right shoulder arthroplasty. Cardiomediastinal and hilar silhouettes are unchanged. No pneumothorax, pleural effusion or airspace consolidation. Bones appear grossly intact. IMPRESSION: No acute process. ACT 112: Negative or not required by law. The above report was generated using voice recognition software. It may contain grammatical, syntax or spelling errors. Electronically signed by: Reinaldo Todd M.D. 02/16/2024 4:18 PM Code Status & VTE Plan Code Status Full - d/w patient VTE Prophylaxis Plan VTE Prophylaxis will be ordered: Yes Supervising Physician Co-Signing Physician Notes I personally saw and examined the patient. I independently reviewed the labs, EKG, imaging, problem list, medication list, past medical history and family history. I verified all mae points and agree with Verna Galo PA-C with the following exceptions and/or additions: 63 year old female presents to the ER with similar symptoms to prior admissions with weight gain and panniculus swelling and erythema especially on the left side. She reports this is similar to prior occasions and starts whenever she stops taking antibiotics O/E A&Ox3, HS RRR, no murmurs, Chest CTAB, Large abdominal pannus with bright erythema on left side surrounding open areas of skin tracking down upper thigh, right side with darker erythema does not appear infected A/P Acute on chronic HFpEF - Bumex 4mg IV, although all her fluid is in her pannus historically this has responded well to Bumex. I&Os, daily standing weights Panniculitis - Always difficult to tell whether this is acutely infected vs. just swollen, given one sided appearance will elect to treat with antibiotics but consider shorter duration. Daptomycin + cefepime. She should be placed back on her chronic doxycycline if MRSA coverage is discontinued Chronic left foot ulcer - does not appear acutely infected at this time PG Care Time/CCT Total # of Minutes Spent Total Time Spent with Patient: Total time spent is greater than 50% in coordination of care (as documented) at patient's floor/unit and/or counseling patient: 77 minutes Coding Level of Care Code 45334 INT INP/OBS CARE 3/75MIN Diagnoses Panniculitis M79.3 CHF (congestive heart failure) I50.9 Heart failure chronicity: acute on chronic Heart failure type: unspecified Hypokalemia E87.6 Diabetes mellitus type 2 with neurological manifestations E11.49 CKD (chronic kidney disease) stage 3, GFR 30-59 ml/min N18.31 Chronic kidney disease stage 3 subtype: stage 3a (GFR 45-59) (2) CHF (congestive heart failure) Heart failure chronicity: acute on chronic Heart failure type: unspecified Qualified Code(s): I50.9 - Heart failure, unspecified (5) CKD (chronic kidney disease) stage 3, GFR 30-59 ml/min Chronic kidney disease stage 3 subtype: stage 3a (GFR 45-59) Qualified Code(s): N18.31 - Chronic kidney disease, stage 3a
[2024-02-16] MEDS: POTASSIUM CHLORIDE CRTAB 20 MEQ TABCR PO STA (17:07)
[2024-02-16] MEDS ORDERED: ALBUTEROL 0.083% NEBU SOLN 3 ML VIAL INH PRN (17:49)
[2024-02-16] MEDS ORDERED: MELATONIN 3 MG TAB PO PRN (17:49)
[2024-02-16] MEDS ORDERED: MAGNESIUM HYDROXIDE SUSP 30 ML UDC PO PRN (17:49)
[2024-02-16] MEDS ORDERED: CARBOHYDRATES FOR HYPOGLYCEMIA PO PRN (17:49)
[2024-02-16] MEDS ORDERED: GLUCOSE 10 TAB/TUBE PO PRN (17:49)
[2024-02-16] MEDS ORDERED: GLUCOSE 40% GEL 15 GM TUBE PO PRN (17:49)
[2024-02-16] MEDS ORDERED: GLUCAGON FOR INJ 1 MG VIAL SQ PRN (17:49)
[2024-02-16] MEDS ORDERED: DEXTROSE 50% 50 ML SYRINGE IV PRN (17:49)
[2024-02-16] MEDS ORDERED: SUCRALFATE 1 GM TAB PO PRN (17:49)
[2024-02-16] MEDS ORDERED: ALUMINUM/MAGNESIUM SUSP 30 ML UDC PO PRN (17:49)
--- NOTE | 2024-02-16 18:19 | Electrocardiogram Report ---
Test Reason : Blood Pressure : */* mmHG Vent. Rate : 73 BPM Atrial Rate : 73 BPM P-R Int : 172 ms QRS Dur : 92 ms QT Int : 362 ms P-R-T Axes : 32 -28 7 degrees QTcB Int : 398 ms Normal sinus rhythm Minimal voltage criteria for LVH, may be normal variant possible Inferior infarct (cited on or before 23-Jul-2017) Anterolateral infarct (cited on or before 01-Oct-2017) Abnormal ECG When compared with ECG of 31-Jan-2024 12:49, QT has shortened Confirmed by Norris Bower ([id number]) on 02/16/2024 6:19:06 PM Referred By: Confirmed By: Norris Bower
[2024-02-16] MEDS: BUMETANIDE 4 MG in SYRINGE 0 ML IV SCH (18:34)
[2024-02-16] MEDS: GABAPENTIN 400 MG CAP PO SCH (18:48)
[2024-02-16] MEDS: ENOXAPARIN INJ 40 MG/0.4 ML SYR SQ SCH (18:48)
[2024-02-16] MEDS: CEFEPIME 2000MG 2,000 MG/20 ML SYR IV SCH (18:49)
[2024-02-16] MEDS: DAPTOmycin 425 MG in SYRINGE 0 ML IV SCH (19:38)
[2024-02-16] MEDS: PANTOprazole 40 MG TAB PO SCH (20:31)
[2024-02-16] MEDS: DULoxetine HCL 60 MG CAP PO SCH (20:31)
[2024-02-16] MEDS: FAMOTIDINE 20 MG TAB PO SCH (20:32)
[2024-02-16] MEDS: SPIRONOLACTONE 25 MG TAB PO SCH (20:32)
[2024-02-16] MEDS: NYSTATIN POWDER 15GM BTL EXT SCH (20:33)
[2024-02-17 06:35] LABS: Basophils # (auto) 0.02 K/uL (0.00-0.20); Basophils % (auto) 0.2 %; Eosinophils # (auto) 0.53 K/uL (0.00-0.50); Eosinophils % (auto) 5.5 %; Hematocrit (blood only) 38.3 % (37.0-47.0); Hemoglobin 12.3 g/dl (12.0-16.0); Immature Granulocytes # (auto) 0.02 K/uL (0.01-0.20); Immature Granulocytes % (auto) 0.2 %; Lymphocytes # (auto) 2.06 K/uL (1.20-3.40); Lymphocytes % (auto) 21.5 %; Mean Corpuscular Hemoglobin 27.6 pg (25.0-34.0); Mean Corpuscular Hgb Conc 32.1 g/dL (32.0-36.0); Mean Corpuscular Volume 86.1 fL (80.0-100.0); Mean Platelet Volume 9.7 fL (9.4-12.4); Monocytes # (auto) 0.51 K/uL (0.11-0.59); Monocytes % (auto) 5.3 %; Neutrophils # (auto) 6.42 K/uL (1.40-6.50); Neutrophils % (auto) 67.3 %; Platelet Count 285 K/uL (130-400); RDW Coefficient of Variation 13.9 % (11.5-14.5); RDW Standard Deviation 43.3 fL (36.4-46.3); Red Blood Count 4.45 M/uL (4.20-5.40); White Blood Count 9.56 K/ul (4.8-10.8)
[2024-02-17 06:44] LABS: BUN Creatinine Ratio 11.3 (10-20); Calcium 8.7 mg/dl (8.6-10.3); Creatinine Clr Calc Pharmacy 80.6 ml/min; Magnesium 1.7 mg/dl (1.7-2.4); Potassium 3.5 mmol/L (3.5-5.1)
--- NOTE | 2024-02-17 07:38 | Hospitalist Progress Note ---
Date of Service February 17, 2024 Assessment & Plan (1) Panniculitis: Plan: Acute and recurrent - Admit in patient to med/tele - No cultures collected - Dose of ceftriaxone x1, broaden coverage to cefepime 2g IV q8 and daptomycin 4mg/kg q24 - Pt has a h/o MRSA, although last admission MRSA screen was negative, and was to be on ppx Doxycycline which was not resumed at the time she completed her Keflex on 02/11 - Nystatin powder to folds - AM labs including CBC, BMP, Mag - ecg technician on board, appreciate assistance (2) CHF (congestive heart failure): Plan: Acute on chronic HFpEF - Initiate diuresis with IV Bumex 4mg q12 - Would advise increased dose upon transition back to oral (not to resume 2mg BID, but would consider 6mg total) - Continue spironolactone 25mg bid - Low salt diet and 1800 cc fluid restriction - Obtain daily standing weights - I/O q shift and place phillips for accurate output measurement - Follow up with HF clinic upon d/c (3) Hypokalemia: Plan: Acute - Treat with dose of KCl 40meq po x1 - BMP in AM (4) Diabetes mellitus type 2 with neurological manifestations: Plan: Chronic - Well-controlled with oral meds, last a1c (02/01) 5.6% - Check one touches ac and hs - add SSI coverage if BSG >180 - Continue Jardiance 10mg daily - Continue gabapentin 400mg QID (5) CKD (chronic kidney disease) stage 3, GFR 30-59 ml/min: Plan: Chronic - Baseline creatinine 1.2-1.5; currently 1.24 - Monitor in setting of IV diuresis - Avoid nephrotoxic meds and renally adjust when appropriate Plan Chronic medical issues - HTN - continue metoprolol tartrate - GERD - continue carafate, protonix and famotidine - ANDRZEJ - continue cpap at hs - Depression/anxiety - continue duloxetine, buspirone, and wellbutrin VTE ppx with Lovenox 40mg SQ BID. AM labs ordered. Above plan of care discussed with Dr. Varma who will also see and evaluate this patient. Further orders as warranted by attending. Admission and Anticipated Discharge Date Admission Date: February 16, 2024 Supervising Physician Co-Signing Physician Notes Attending attestation Pt seen and examined in concert with Dr. Vega. In agreement with the documented findings as noted in the resident documentation with any exceptions or additions as noted here. Resting in bed with improvement in presenting symptoms. On examination, S1/S2 nl RRR no MCG. CTAB. Abd NT/ND BS+ve Panniculitis, recurrent - continue cefepime and daptomycin. No Cx pending. Trend daily CBC, BMP, Mg HFpEF, acute on chronic - IV bumetanide, spironolactone. Monitor I/O/weight. Reinforced fluid restriction. Else see resident documentation as noted. Subjective Explained she's been having recurrent panniculitis, in the past few months having been in and out of the hospital every other week. After latest discharge, finished keflex course, and within 2 days had gained > 20 lbs in the pannus + warmth, redness, itching. Feeling well today. No SOB, CP, joint or muscle aches. Doesn't feel her condition has improved, but says she trusts she's in good hands. Review of Systems 2 Review of Systems: Per HPI Physical Exam 2 Physical Exam: Gen: obese, pleasant, alert, resting comfortably HEENT: NCAT, PERRL CV: RRR, no m/r/g, S1/S2 normal Resp: CTAB, breathing non-labored Abd: Soft, NT, Large pannus w warmth & erythema, worse along the left lateral aspect w several small open wounds; approx 12 in. linear lesion along midline Ext: Normal str & ROM, b/l LE edema and discoloration, diabetic foot ulcers on both feet, L foot w several nails broken off Neuro: AOx3, CN II-XII grossly intact, No sensation b/l LE distal to mid-[place] Psych: Mood-affect congruent. Speech pace and content normal. Results & Data Results & Data Vital Signs (Past 12 Hours) Vital Signs Temp Pulse Pulse Pulse Resp BP Pulse Ox 02/17/24 07:29 36.6 C 69 18 114/73 95 02/17/24 03:37 37 C 84 18 124/72 95 02/16/24 23:40 36.6 C 73 18 116/66 93 02/16/24 21:52 71 02/16/24 21:27 02/16/24 19:47 36.7 C 75 18 108/67 98 O2 Del Method 02/17/24 07:29 Room Air 02/17/24 03:37 Room Air 02/16/24 23:40 Room Air 02/16/24 21:52 02/16/24 21:27 Room Air 02/16/24 19:47 Room Air Laboratory Results 02/17/24 06:03 02/17/24 06:03 Resident Activity Tracking Resident Involvement: Resident Care Provided Care Provided: Adult Hospital Medicine (2) CHF (congestive heart failure) Heart failure chronicity: acute on chronic Heart failure type: unspecified Qualified Code(s): I50.9 - Heart failure, unspecified (5) CKD (chronic kidney disease) stage 3, GFR 30-59 ml/min Chronic kidney disease stage 3 subtype: stage 3a (GFR 45-59) Qualified Code(s): N18.31 - Chronic kidney disease, stage 3a
[2024-02-17] MEDS: busPIRone 5 MG TAB PO SCH (08:06)
[2024-02-17] MEDS: METOPROLOL SUCC 25MG EXT REL TAB PO SCH (08:06)
[2024-02-17] MEDS: buPROPion XL 300 MG TABCR PO SCH (08:07)
[2024-02-17] MEDS: FLUTICASONE/VILANTEROL 200/25MCG 14 PUFFS/INHALER INH SCH (08:07)
[2024-02-17] MEDS: EMPAGLIFLOZIN 10 MG TAB PO SCH (08:07)
[2024-02-17] MEDS: CYANOCOBALAMIN (B-12) 500 MCG TABLET PO SCH (08:07)
[2024-02-17] MEDS: ASPIRIN 81 MG ECTAB PO SCH (08:07)
[2024-02-17] MEDS: POTASSIUM CHLORIDE CRTAB 20 MEQ TABCR PO SCH (08:09)
[2024-02-17] MEDS: PNEUMOCOCCAL VACCINE (PCV20) 20-VAL CONJ-DIP CRM/PF 0.5 ML SYR IM ONE (17:28)
[2024-02-17] MEDS: traMADol HCL 50 MG TABLET PO PRN (19:25)
[2024-02-18] MEDS: ONDANSETRON INJ 2 MG/ML 2 ML VIAL IV PRN (05:53)
--- NOTE | 2024-02-18 07:29 | Hospitalist Progress Note ---
Date of Service February 18, 2024 Assessment & Plan (1) Panniculitis: Plan: Acute and recurrent - No cultures collected - Dose of ceftriaxone x1, broaden coverage to cefepime 2g IV q8h and daptomycin 425mg IV q24h - Pt has a h/o MRSA (although last admission MRSA screen was negative) and was to be on ppx Doxycycline which was not resumed at the time she completed her Keflex on 02/11 - Nystatin powder to folds - cardroom plastic card grader on board, appreciate assistance - Follow up w surgery for regarding panniculectomy (2) CHF (congestive heart failure): Plan: Acute on chronic HFpEF - Initiate diuresis with IV Bumex 4mg q12 - Would advise increased dose upon transition back to oral (not to resume 2mg BID, but would consider 6mg total) - Continue spironolactone 25mg bid - Low salt diet and 1800 cc fluid restriction - Obtain daily standing weights; goal weight 150kg/~330lbs - I/O q shift and place phillips for accurate output measurement - Follow up with HF clinic upon d/c (3) Hypokalemia: Plan: Acute - 3.4 at arrival, up to 3.5 after 1x KCl 40meq po - Back down to 3.4 today - Continue monitoring w daily BMP (4) Diabetes mellitus type 2 with neurological manifestations: Plan: Chronic - Well-controlled with oral meds, last a1c (02/01) 5.6% - Check one touches ac and hs - add SSI coverage if BSG >180 - Continue Jardiance 10mg daily - Continue gabapentin 400mg QID (5) CKD (chronic kidney disease) stage 3, GFR 30-59 ml/min: Plan: Chronic - Baseline creatinine 1.2-1.5; currently 1.28 - Monitor closely in setting of IV diuresis - Avoid nephrotoxic meds and renally adjust when appropriate Plan Chronic medical issues - HTN - continue metoprolol tartrate - GERD - continue carafate, protonix and famotidine - ANDRZEJ - continue cpap at hs - Depression/anxiety - continue duloxetine, buspirone, and wellbutrin VTE ppx with Lovenox 40mg SQ BID. AM labs ordered. Above plan of care discussed with Dr. Varma who will also see and evaluate this patient. Further orders as warranted by attending. Admission and Anticipated Discharge Date Admission Date: February 16, 2024 Supervising Physician Co-Signing Physician Notes ATTESTATION I also saw the patient and confirmed mae portions of the history and exam. I agree with the impression and plan in the resident documentation, and as summarized below. Patient without new complaints. Notes increase weight at home - some of which she attributes to lymphedema, some to fluid. She has diuresed about 4L thus far. EXAM VSS Alert and oriented. NAD CV regular Lungs CTA Abdomen soft and nontender DATA Labs CBC unremarkable Sodium 140, potassium 3.4, BUN 15, creatinine 1.28 IMPRESSION & PLAN Panniculitis, recurrent Continue cefepime and daptomycin. Follow clinically HFpEF, acute on chronic Continue IV bumetanide, spironolactone. Monitor I/O/weight; limitation will be serum creatinine Reinforced fluid restriction. May take several days of monitored diuresis to get her ready for discharge Additional per resident documentation Subjective Feeling well today. No SOB, CP, joint or muscle aches. Doesn't feel her condition has improved, but says she's done this before and understands it takes a few days. Is trying to get in touch w plastic surgeon for definitive treatment of recurring panniculitis. Review of Systems 2 Review of Systems: Per HPI Physical Exam 2 Physical Exam: Gen: NAD, alert, pleasant HEENT: NCAT, PERRL CV: RRR, no m/r/g, S1/S2 normal Resp: CTAB, breathing non-labored Abd: Soft, NT, Large pannus w warmth & erythema, worse along the left lateral aspect w several small open wounds; approx 12 in. linear lesion along midline Ext: Normal str & ROM, b/l LE edema and discoloration, diabetic foot ulcers b/l, L foot w nails broken off Neuro: AOx3, CN II-XII grossly intact, No sensation b/l LE distal to [place] Psych: Mood-affect congruent. Speech pace and content normal. Results & Data Results & Data Vital Signs (Past 12 Hours) Vital Signs Temp Pulse Pulse Resp BP Pulse Ox O2 Del Method 02/18/24 15:53 36.5 C 68 18 97/60 L 92 Room Air 02/18/24 15:53 75 02/18/24 11:21 36.7 C 71 18 109/72 94 Room Air 02/18/24 07:25 36.7 C 60 18 110/62 100 Room Air 02/18/24 07:20 59 L Laboratory Results 02/18/24 07:27 02/18/24 07:27 Resident Activity Tracking Resident Involvement: Resident Care Provided Care Provided: Adult Hospital Medicine (2) CHF (congestive heart failure) Heart failure chronicity: acute on chronic Heart failure type: unspecified Qualified Code(s): I50.9 - Heart failure, unspecified (5) CKD (chronic kidney disease) stage 3, GFR 30-59 ml/min Chronic kidney disease stage 3 subtype: stage 3a (GFR 45-59) Qualified Code(s): N18.31 - Chronic kidney disease, stage 3a
[2024-02-18 07:51] LABS: Basophils # (auto) 0.03 K/uL (0.00-0.20); Basophils % (auto) 0.3 %; Eosinophils # (auto) 0.44 K/uL (0.00-0.50); Eosinophils % (auto) 4.9 %; Hematocrit (blood only) 38.3 % (37.0-47.0); Immature Granulocytes # (auto) 0.03 K/uL (0.01-0.20); Immature Granulocytes % (auto) 0.3 %; Lymphocytes # (auto) 2.36 K/uL (1.20-3.40); Lymphocytes % (auto) 26.5 %; Mean Corpuscular Hemoglobin 27.3 pg (25.0-34.0); Mean Corpuscular Hgb Conc 31.3 g/dL (32.0-36.0); Mean Platelet Volume 9.6 fL (9.4-12.4); Monocytes # (auto) 0.61 K/uL (0.11-0.59); Monocytes % (auto) 6.9 %; Neutrophils # (auto) 5.43 K/uL (1.40-6.50); Neutrophils % (auto) 61.1 %; Platelet Count 265 K/uL (130-400)
[2024-02-18 08:03] LABS: Calcium 8.9 mg/dl (8.6-10.3); Potassium 3.4 mmol/L (3.5-5.1)
[2024-02-18 08:09] LABS: BUN Creatinine Ratio 11.7 (10-20)
[2024-02-19 06:59] LABS: Hematocrit (blood only) 37.5 % (37.0-47.0); Hemoglobin 11.9 g/dl (12.0-16.0); Mean Corpuscular Hemoglobin 27.5 pg (25.0-34.0); Mean Corpuscular Hgb Conc 31.7 g/dL (32.0-36.0); Mean Corpuscular Volume 86.6 fL (80.0-100.0); Mean Platelet Volume 9.6 fL (9.4-12.4); Platelet Count 254 K/uL (130-400); RDW Coefficient of Variation 13.9 % (11.5-14.5); RDW Standard Deviation 43.9 fL (36.4-46.3); Red Blood Count 4.33 M/uL (4.20-5.40); White Blood Count 7.99 K/ul (4.8-10.8)
[2024-02-19 07:14] LABS: BUN Creatinine Ratio 12.3 (10-20); Calcium 8.6 mg/dl (8.6-10.3); Creatinine Clr Calc Pharmacy 68.5 ml/min; Potassium 3.4 mmol/L (3.5-5.1)
--- NOTE | 2024-02-19 07:16 | Hospitalist Progress Note ---
Date of Service February 19, 2024 Assessment & Plan (1) Panniculitis: Plan: Acute and recurrent - No cultures collected - Dose of ceftriaxone x1, broaden coverage to cefepime 2g IV q8h and daptomycin 425mg IV q24h - Pt has a h/o MRSA (although last admission MRSA screen was negative) and was to be on ppx Doxycycline which was not resumed at the time she completed her Keflex on 02/11 - Nystatin powder to folds --- reports nystatin ointment works better - canvas shop laborer on board, appreciate assistance - Follow up w surgery for regarding panniculectomy (2) CHF (congestive heart failure): Plan: Acute on chronic HFpEF - Decrease IV Bumex to 3mg q12 Having good UO (-7230ml), recorded weight decreased (now 154kg), and Cr slightly increased - Plan keeping this increased dose (3mg BID) upon transition back to oral - Continue spironolactone 25mg bid - Low salt diet and 1800 cc fluid restriction - Obtain daily standing weights; goal weight 150kg/~330lbs - I/O q shift and place phillips for accurate output measurement - Follow up with HF clinic upon d/c (3) Hypokalemia: Plan: Acute - 3.4 at arrival, up to 3.5 after 1x KCl 40meq po - Back down to 3.4 today - Continue monitoring w daily BMP (4) Diabetes mellitus type 2 with neurological manifestations: Plan: Chronic - Well-controlled with oral meds, last a1c (02/01) 5.6% - Check one touches ac and hs - add SSI coverage if BSG >180 - Continue Jardiance 10mg daily - Continue gabapentin 400mg QID (5) CKD (chronic kidney disease) stage 3, GFR 30-59 ml/min: Plan: Chronic condition - Baseline creatinine 1.2-1.5; Monitor closely in setting of IV diuresis - 1.38 today; will lower diuretic dose since good UO and decreased recorded weight - Avoid nephrotoxic meds and renally adjust when appropriate Plan Chronic medical issues - HTN - continue metoprolol tartrate - GERD - continue carafate, protonix and famotidine - ANDRZEJ - continue cpap at hs - Depression/anxiety - continue duloxetine, buspirone, and wellbutrin VTE ppx with Lovenox 40mg SQ BID. AM labs ordered. Above plan of care discussed with Dr. Varma who will also see and evaluate this patient. Further orders as warranted by attending. Admission and Anticipated Discharge Date Admission Date: February 16, 2024 Supervising Physician Co-Signing Physician Notes ATTESTATION I also saw the patient and confirmed mae portions of the history and exam. I agree with the impression and plan in the resident documentation, and as summarized below. Greater than 7L diuresis thus far. EXAM 115/71, 68, 18, 96% Alert and oriented. NAD CV regular Lungs CTA Patient seen at the time of wound care being provided - superficial skin breakdown underside of pannus with pale erythema underlying. DATA Labs WBC 7.99, HgB 11.9 Sodium 140, potassium 3.4, BUN 17, creatinine 1.38 IMPRESSION & PLAN Panniculitis, recurrent Progressed in terms of pain and erythema after discharge on Keflex Continue cefepime and daptomycin; wound care Follow clinically HFpEF, acute on chronic Continue IV bumetanide, spironolactone; reduce Bumex today Monitor I/O/weight; limitation will be serum creatinine Reinforced fluid restriction. May take several days of monitored diuresis to get her ready for discharge Additional per resident documentation Subjective Feeling well today. Asking about underlying cause of her foot/nail problems. Was weighed differently this morning (scale) than prior days (bed). No ZENG, SOB, CP, joint or muscle aches. Review of Systems 2 Review of Systems: Per HPI Physical Exam 2 Physical Exam: Gen: NAD, alert, pleasant HEENT: NCAT, PERRL CV: RRR, no m/r/g, S1/S2 normal Resp: CTAB, breathing non-labored Abd: Soft, NT, Large pannus w erythema & wounds along the left lateral aspect, Approx 12 in. linear lesion along midline Ext: Normal str & ROM, b/l LE edema and discoloration, diabetic foot ulcers b/l, L foot w nails broken off Neuro: AOx3, CN II-XII grossly intact, No sensation b/l LE distal to [place] Psych: Mood-affect congruent. Speech pace and content normal. Results & Data Results & Data Vital Signs (Past 12 Hours) Vital Signs Temp Pulse Pulse Resp BP Pulse Ox O2 Del Method 02/19/24 02:19 36.4 C L 70 18 104/67 93 Room Air, CPAP 02/19/24 00:40 Room Air, CPAP 02/18/24 23:00 80 02/18/24 22:59 36.7 C 75 18 118/68 97 Room Air, CPAP 02/18/24 19:22 36.8 C 73 18 126/81 94 Room Air Laboratory Results 02/19/24 05:32 02/19/24 05:32 Resident Activity Tracking Resident Involvement: Resident Care Provided Care Provided: Adult Hospital Medicine (2) CHF (congestive heart failure) Heart failure chronicity: acute on chronic Heart failure type: unspecified Qualified Code(s): I50.9 - Heart failure, unspecified (5) CKD (chronic kidney disease) stage 3, GFR 30-59 ml/min Chronic kidney disease stage 3 subtype: stage 3a (GFR 45-59) Qualified Code(s): N18.31 - Chronic kidney disease, stage 3a
[2024-02-19] MEDS: BUMETANIDE 3 MG in SYRINGE 0 ML IV SCH (16:35)
[2024-02-19] MEDS: ACETAMINOPHEN 325 MG TAB PO PRN (21:21)
[2024-02-19] MEDS: HYDROmorphone INJ 0.5 MG/0.5 ML SYR IV STA (23:17)
[2024-02-20] MEDS: MAGNESIUM SULFATE / D5W 1 GM/100 ML BAG IV SCH (03:21)
[2024-02-20 03:43] LABS: Hemoglobin 11.8 g/dl (12.0-16.0); Mean Corpuscular Hemoglobin 27.4 pg (25.0-34.0); Mean Corpuscular Hgb Conc 31.9 g/dL (32.0-36.0); Mean Corpuscular Volume 85.8 fL (80.0-100.0); Mean Platelet Volume 9.4 fL (9.4-12.4); Platelet Count 250 K/uL (130-400); RDW Coefficient of Variation 13.7 % (11.5-14.5); RDW Standard Deviation 42.9 fL (36.4-46.3); Red Blood Count 4.31 M/uL (4.20-5.40); White Blood Count 8.36 K/ul (4.8-10.8)
[2024-02-20 03:53] LABS: BUN Creatinine Ratio 14.1 (10-20); Calcium 8.8 mg/dl (8.6-10.3); Creatinine Clr Calc Pharmacy 70.1 ml/min; Potassium 3.3 mmol/L (3.5-5.1)
[2024-02-20 04:00] LABS: Troponin I High Sensitivity 3.1 pg/ml (0-14)
[2024-02-20] MEDS: POTASSIUM CHLORIDE CRTAB 20 MEQ TABCR PO STA (04:48)
--- NOTE | 2024-02-20 07:04 | XRay Report ---
XR chest 1V portable CLINICAL HISTORY: Chest Pain COMPARISON STUDY: Chest CT October 29, 2023. Chest radiograph February 16, 2024. FINDINGS: Right shoulder arthroplasty is incidentally noted. Lung volumes are normal. Lungs are clear . There is no pneumothorax or pleural effusion. Cardiac size is normal. Mediastinal contours are norm al. There is no evidence for pulmonary edema. IMPRESSION: No acute cardiopulmonary findings. ACT 112: Negative or not required by law. Electronically signed by: Biju Vergara M.D. 02/20/2024 7:03 AM
--- NOTE | 2024-02-20 07:38 | Hospitalist Progress Note ---
Date of Service February 20, 2024 Assessment & Plan (1) Panniculitis: Plan: Acute and recurrent - No cultures collected - Dose of ceftriaxone x1, broaden coverage to cefepime 2g IV q8h and daptomycin 425mg IV q24h - Pt has a h/o MRSA (although last admission MRSA screen was negative) and was to be on ppx Doxycycline which was not resumed at the time she completed her Keflex on 02/11 - Nystatin powder to folds --- reports nystatin ointment works better - theatrical variety agent on board, appreciate assistance - Follow up w surgery for regarding panniculectomy (2) CHF (congestive heart failure): Plan: Acute on chronic HFpEF - Continue IV Bumex to 3mg q12 - Plan keeping this increased dose upon transition back to oral (vs current home regimen 2mg BID) - Continue spironolactone 25mg bid - Low salt diet and 1800 cc fluid restriction - Obtain daily standing weights; goal weight 150kg/~330lbs - I/O q shift and place phillips for accurate output measurement - Having good UO (-5525 mL, for net -3610); recorded weight decreased (now 152.1kg) - Follow up with HF clinic upon d/c (3) Hypokalemia: Plan: Acute - 3.4 at arrival, up to 3.5 after 1x KCl 40meq po - Back down to 3.3 today - Continue monitoring w daily BMP (4) Diabetes mellitus type 2 with neurological manifestations: Plan: Chronic - Well-controlled with oral meds, last a1c (02/01) 5.6% - Check one touches ac and hs - add SSI coverage if BSG >180 - Continue Jardiance 10mg daily - Continue gabapentin 400mg QID (5) CKD (chronic kidney disease) stage 3, GFR 30-59 ml/min: Plan: Chronic condition - Baseline creatinine 1.2-1.5; Monitor closely in setting of IV diuresis - Down slightly from yesterday 1.38 to today 1.35; good UO - Avoid nephrotoxic meds and renally adjust when appropriate (6) Musculoskeletal pain: Plan: - Began ~03:00 on 02/19 w R side pain spreading across upper chest to left side, 02/23 - Relieved w IV Mg and dilaudid and heating pad - Worse w turning head to L and moving R arm - Reproducible w palpation along scm/trap muscles - CXR and trop neg - Continue symptom relief Plan Chronic medical issues - HTN - continue metoprolol tartrate - GERD - continue carafate, protonix and famotidine - ANDRZEJ - continue cpap at hs - Depression/anxiety - continue duloxetine, buspirone, and wellbutrin VTE ppx with Lovenox 40mg SQ BID. AM labs ordered. Above plan of care discussed with Dr. Varma who will also see and evaluate this patient. Further orders as warranted by attending. Admission and Anticipated Discharge Date Admission Date: February 16, 2024 Supervising Physician Co-Signing Physician Notes ATTESTATION I also saw the patient and confirmed mae portions of the history and exam. I agree with the impression and plan in the resident documentation, and as summarized below. Continues impressive diuresis. She developed a right sided neck/trapezius pain that radiated to the anterior chest overnight. Intermittent today; reproducible with palpation and when she looks to the left. EXAM 115/71, 68, 18, 96% Alert and oriented. NAD Tenderness right trapezius, right lateral neck into right anterior shoulder. Cervical rotation restricted to the left. Right upper arm without pain or edema CV regular Lungs CTA DATA Labs WBC 8.36, HgB 11.8 Sodium 139, potassium 3.3, BUN 19, creatinine 1.35 Imaging CXR overnight shows no acute processes. IMPRESSION & PLAN Panniculitis, recurrent Progressed in terms of pain and erythema after discharge on Keflex Continue cefepime and daptomycin; wound care Follow clinically HFpEF, acute on chronic Continue IV bumetanide, spironolactone; consider PO Bumex tomorrow Monitor I/O/weight; limitation will be serum creatinine Reinforced fluid restriction. May take several days of monitored diuresis to get her ready for discharge Left neck pain No concerning features; reproducible with palpation and certain neck movements Symptomatic care Additional per resident documentation Subjective Feeling okay this morning but had a lot of pain last night. Started in R side and spread across chest. No triggering position or action; was just sitting in bedside chair as usual. Says it was 10/10 at that time. Worse when turning head to left or lifting right arm. Better w turning head to right. Relieved w Dilaudid & IV Mg. Currently rates it 4~5/10, more localized to the right once again. No ZENG, dizziness, weakness, CP, abd pain. Review of Systems 2 Review of Systems: Per HPI Physical Exam 2 Physical Exam: Gen: NAD, alert, pleasant HEENT: NCAT, PERRL CV: RRR, no m/r/g, S1/S2 normal Resp: CTAB, breathing non-labored Abd: Soft, NT, Large pannus w erythema & wounds along the left lateral aspect, Approx 12 in. linear lesion along midline Ext: Normal str & ROM, b/l LE edema and discoloration, diabetic foot ulcers b/l, L foot w nails broken off Neuro: AOx3, CN II-XII grossly intact, No sensation b/l LE distal to [place] Psych: Mood-affect congruent. Speech pace and content normal. Results & Data Results & Data Vital Signs (Past 12 Hours) Vital Signs Temp Pulse Pulse Resp BP Pulse Ox O2 Del Method 02/20/24 02:23 36.4 C L 74 16 146/75 H 96 Room Air, CPAP 02/19/24 22:23 36.6 C 68 18 115/76 96 Room Air, CPAP 02/19/24 22:19 71 02/19/24 20:00 Room Air, CPAP Laboratory Results 02/20/24 03:23 02/20/24 03:23 Diagnostic Findings Chest X-Ray 02/20/24 03:01 XR chest 1V portable CLINICAL HISTORY: Chest Pain COMPARISON STUDY: Chest CT October 29, 2023. Chest radiograph February 16, 2024. FINDINGS: Right shoulder arthroplasty is incidentally noted. Lung volumes are normal. Lungs are clear. There is no pneumothorax or pleural effusion. Cardiac size is normal. Mediastinal contours are normal. There is no evidence for pulmonary edema. IMPRESSION: No acute cardiopulmonary findings. Electronically signed by: Biju Vergara M.D. 02/20/2024 7:03 AM Resident Activity Tracking Resident Involvement: Resident Care Provided Care Provided: Adult Hospital Medicine (2) CHF (congestive heart failure) Heart failure chronicity: acute on chronic Heart failure type: unspecified Qualified Code(s): I50.9 - Heart failure, unspecified (5) CKD (chronic kidney disease) stage 3, GFR 30-59 ml/min Chronic kidney disease stage 3 subtype: stage 3a (GFR 45-59) Qualified Code(s): N18.31 - Chronic kidney disease, stage 3a
[2024-02-20 07:42] VITALS: RESP 18
[2024-02-20] MEDS: MAGNESIUM SULFATE / D5W 1 GM/100 ML BAG IV ONE (13:30)
[2024-02-20] MEDS: DICLOFENAC SOD 1% GEL 100 GM TUBE EXT SCH (22:01)
[2024-02-21] MEDS: HYDROmorphone INJ 0.5 MG/0.5 ML SYR IV STA (04:05)
[2024-02-21 06:07] LABS: Hematocrit (blood only) 41.1 % (37.0-47.0); Mean Corpuscular Hemoglobin 27.3 pg (25.0-34.0); Mean Corpuscular Hgb Conc 31.6 g/dL (32.0-36.0); Mean Corpuscular Volume 86.3 fL (80.0-100.0); Mean Platelet Volume 9.6 fL (9.4-12.4); Platelet Count 279 K/uL (130-400); RDW Coefficient of Variation 13.8 % (11.5-14.5); RDW Standard Deviation 42.9 fL (36.4-46.3); Red Blood Count 4.76 M/uL (4.20-5.40); White Blood Count 9.38 K/ul (4.8-10.8)
[2024-02-21 06:22] LABS: BUN Creatinine Ratio 15.3 (10-20); Creatinine Clr Calc Pharmacy 75.6 ml/min; Magnesium 2.2 mg/dl (1.7-2.4); Potassium 3.6 mmol/L (3.5-5.1)
--- NOTE | 2024-02-21 06:43 | Hospitalist Progress Note ---
Date of Service February 21, 2024 Assessment & Plan (1) Panniculitis: Plan: Acute and recurrent - No cultures collected - Dose of ceftriaxone x1, broaden coverage to cefepime 2g IV q8h and daptomycin 425mg IV q24h - Pt has a h/o MRSA (although last admission MRSA screen was negative) and was to be on ppx Doxycycline which was not resumed at the time she completed her Keflex on 02/11 - Nystatin powder to folds --- reports nystatin ointment works better - liberal arts dean on board, appreciate assistance - Follow up w surgery for regarding panniculectomy (2) CHF (congestive heart failure): Plan: Acute on chronic HFpEF - Transitioned IV Bumex to 3mg po BID Keep this increased dose upon discharge (vs prior home regimen of 2mg BID) - Continue spironolactone 25mg bid - Low salt diet and 1800 cc fluid restriction - Obtain daily standing weights; goal weight 150kg/~330lbs - I/O q shift and place phillips for accurate output measurement - Having good UO (-5600 mL, for net -4340); recorded weight now at goal - Follow up with HF clinic upon d/c (3) Hypokalemia: Plan: Acute - 3.4 at arrival, up to 3.5 after 1x KCl 40meq po - Back down to 3.3 today - Continue monitoring w daily BMP (4) Diabetes mellitus type 2 with neurological manifestations: Plan: Chronic - Well-controlled with oral meds, last a1c (02/01) 5.6% - Check one touches ac and hs - add SSI coverage if BSG >180 - Continue Jardiance 10mg daily - Continue gabapentin 400mg QID (5) CKD (chronic kidney disease) stage 3, GFR 30-59 ml/min: Plan: Chronic condition - Baseline creatinine 1.2-1.5; Monitor closely in setting of IV diuresis - Down slightly from yesterday 1.38 to today 1.35; good UO - Avoid nephrotoxic meds and renally adjust when appropriate (6) Musculoskeletal pain: Plan: - Began ~03:00 on 02/19 w R side pain spreading across upper chest to left side, 02/23 - Relieved w IV Mg and dilaudid and heating pad - Worse w turning head to L and moving R arm - Reproducible w palpation along scm/trap muscles - CXR and trop neg - Continue symptom relief Plan Chronic medical issues - HTN - continue metoprolol tartrate - GERD - continue carafate, protonix and famotidine - ANDRZEJ - continue cpap at hs - Depression/anxiety - continue duloxetine, buspirone, and wellbutrin VTE ppx with Lovenox 40mg SQ BID. AM labs ordered. Above plan of care discussed with Dr. Varma who will also see and evaluate this patient. Further orders as warranted by attending. Admission and Anticipated Discharge Date Admission Date: February 16, 2024 Subjective Reports being "not good" this morning. Still having 8/10 neck pain. Now, it hurts to turn head in either direction or tilt it back. Does report the chest/side pain is improved. Had some cold sweats o.n. Review of Systems Review of Systems: Per HPI Physical Exam Physical Exam: Gen: NAD, alert, pleasant HEENT: NCAT, PERRL CV: RRR, no m/r/g, S1/S2 normal Resp: CTAB, breathing non-labored Abd: Soft, NT, Large pannus w erythema & wounds along the left lateral aspect, Approx 12 in. linear lesion along midline Ext: Normal str & ROM, b/l LE edema and discoloration, diabetic foot ulcers b/l, L foot w nails broken off Neuro: AOx3, CN II-XII grossly intact, No sensation b/l LE distal to [place] Psych: Mood-affect congruent. Speech pace and content normal. Results & Data Results & Data Vital Signs (Past 12 Hours) Vital Signs Temp Pulse Pulse Resp BP Pulse Ox O2 Del Method 02/21/24 03:27 36.6 C 75 18 102/60 95 Room Air 02/20/24 22:18 36.5 C 71 18 116/77 96 Room Air 02/20/24 21:50 67 02/20/24 19:03 36.5 C 65 18 111/73 91 Room Air (2) CHF (congestive heart failure) Heart failure chronicity: acute on chronic Heart failure type: unspecified Qualified Code(s): I50.9 - Heart failure, unspecified (5) CKD (chronic kidney disease) stage 3, GFR 30-59 ml/min Chronic kidney disease stage 3 subtype: stage 3a (GFR 45-59) Qualified Code(s): N18.31 - Chronic kidney disease, stage 3a
[2024-02-21 07:40] VITALS: TEMP 97.7
[2024-02-21] MEDS ORDERED: DICLOFENAC SOD 1% GEL 100 GM TUBE EXT SCH (09:00)
[2024-02-21] MEDS ORDERED: BUMETANIDE 1 MG TAB PO SCH (09:00)
[2024-02-21] MEDS: BUMETANIDE 1 MG TAB PO SCH (09:21)
[2024-02-21] MEDS ORDERED: HYDROmorphone INJ 0.5 MG/0.5 ML SYR IV PRN (09:55)
[2024-02-21 11:27] VITALS: O2SAT 91
--- NOTE | 2024-02-21 14:20 | Electrocardiogram Report ---
Test Reason : Blood Pressure : */* mmHG Vent. Rate : 69 BPM Atrial Rate : 69 BPM P-R Int : 176 ms QRS Dur : 80 ms QT Int : 430 ms P-R-T Axes : 47 -20 3 degrees QTcB Int : 460 ms Normal sinus rhythm Inferior infarct (cited on or before 23-Jul-2017) Anteroseptal infarct (cited on or before 01-Oct-2017) Abnormal ECG When compared with ECG of 16-Feb-2024 14:26, No significant change Confirmed by Corey Gross ([id number]) on 02/21/2024 2:20:05 PM Referred By: REFERRED SELF Confirmed By: Corey Gross
--- NOTE | 2024-02-21 14:21 | Electrocardiogram Report ---
Test Reason : Blood Pressure : */* mmHG Vent. Rate : 73 BPM Atrial Rate : 73 BPM P-R Int : 166 ms QRS Dur : 92 ms QT Int : 420 ms P-R-T Axes : 37 -20 2 degrees QTcB Int : 462 ms Normal sinus rhythm Inferior infarct (cited on or before 23-Jul-2017) Anterior infarct (cited on or before 01-Oct-2017) Abnormal ECG When compared with ECG of 19-Feb-2024 22:57, (unconfirmed) No significant change Confirmed by Corey Gross ([id number] on 02/21/2024 2:21:25 PM Referred By: REFERRED SELF Confirmed By: Corey Gross
[2024-02-21 16:23] VITALS: BP 97/60; PULSE 66
--- NOTE | 2024-02-21 18:14 | Discharge Summary ---
Date of Service February 21, 2024 Admission HPI Per Admitting Provider Trevor is a 63 yo F with a pmhx of morbid obesity, DMT2 with peripheral neuropathy, HFpEF, and recurrent panniculitis who presents to the ER today c/o redness, swelling and tenderness of her abdominal folds as well as a weight gain of 22 lbs in the past week. She was hospitalized most recently 01/30-02/03 for panniculitis and HF exacerbation. She was empirically started on daptomycin and cefepime, seen by ID and transitioned to Ancef, then discharged on course of Keflex which she completed on 02/11. She was also diuresed and then appears to have resumed her usual oral diuretic regimen of Bumex 2mg BID + spironolactone 25mg BID. She notes that shortly after stopping her antibiotics, the redness and swelling began and progressed. She denies fever or chills, but does endorse soreness of the area. She was seen by her PCP for on 02/14 who recommended that she return to the ER for readmission and IV antibiotics. Today, she is noted to be afebrile with a normal wbc count and no shift. She has a creatinine of 1.44 and a potassium of 3.4. Remaining lab studies are unremarkable. She was medicated with a dose of ceftriaxone 2g IV x1 and was referred to the hospital medicine team for admission. Admission Exam Per Admitting Provider GENERAL: 63 yo morbidly obese WF. NAD. EYES: EOMI. PERRLA. Anicteric. HENT: Moist mucous membranes. No scleral icterus. No cervical lymphadenopathy. LUNGS: Clear to auscultation bilaterally. No accessory muscle use. No W/R/R. CARDIOVASCULAR: Regular rate and rhythm +murmur. ABDOMEN: Soft, nondistended. Large pannus with erythema and edema worse along the left lateral aspect and overlying bottom portion of pannus. BS normoactive x 4 quad. EXTREMITIES: +1 b/l LE edema. Non-tender. Peripheral pulses +2/4. NEUROLOGIC: A&O x3. No focal neurological deficits. CN II-XII grossly intact. PSYCHIATRIC: Cooperative. Appropriate mood and affect. SKIN: Warm, dry, intact. Redness noted over both lower extremities from ankle to mid calf. Not hot. Not open sores. Principal Diagnosis Panniculitis, CHF Discharge Exam Gen: NAD, alert, pleasant HEENT: NCAT, PERRL, back of neck ttp CV: RRR, no m/r/g, S1/S2 normal Resp: CTAB, breathing non-labored Abd: Soft, NT, Large pannus w erythema & wounds along the left lateral aspect, Approx 12 in. linear lesion along midline Ext: Normal str & ROM, b/l LE edema and discoloration, diabetic foot ulcers b/l, L foot w nails broken off Neuro: AOx3, CN II-XII grossly intact, No sensation b/l LE distal to mid-[place] Psych: Mood-affect congruent. Speech pace and content normal. Discharge Data Allergies Allergy/AdvReac Type Severity Reaction Status Date / Time Corticosteroids Allergy Severe Anaphylaxis Unverified 02/16/24 09:00 (Glucocorticoids) dog dander Allergy Intermediate Rash Verified 02/16/24 09:00 morphine Allergy Intermediate mouth and Verified 02/16/24 09:00 face swells Penicillins Allergy Intermediate rash/hives Verified 02/16/24 09:00 adhesive Allergy Mild Skin rash Verified 02/16/24 09:00 localized zolpidem Allergy Unknown Unknown Verified 02/16/24 09:00 pregabalin AdvReac Intermediate "makes Verified 02/16/24 09:00 goofy" Consultations 02/16/24 16:12 ED Decision to Admit Stat Ordered Studies 02/21/24 05:35 02/21/24 05:35 Hospital Course (1) Panniculitis: (2) CHF (congestive heart failure): (3) Hypokalemia: (4) Diabetes mellitus type 2 with neurological manifestations: (5) CKD (chronic kidney disease) stage 3, GFR 30-59 ml/min: (6) Musculoskeletal pain: Ricky Murray is a 63 yo F with a pmhx of morbid obesity, T2DM c/b peripheral neuropathy, HFpEF, and recurrent panniculitis who is admitted for panniculitis and HF exacerbation. #Panniculitis: - No cultures collected - Treated with 2g IV cefepime q8h and 425mg IV daptomycin q24h h/o MRSA (although last admission MRSA screen was negative) Meant to be on ppx Doxycycline but was not resumed after completing course of Keflex on 02/11 - Nystatin powder to folds; pt reported nystatin ointment works better - Seen regularly by regulatory technician - Follow up w surgery regarding panniculectomy - Discharged on suppressive/prophylactic abx: Keflex 500mg BID #CHF (congestive heart failure): - Echo 08/24/23 w EF 65-70% - Transitioned IV Bumex q12h to 3mg po BID Keep this increased dose upon discharge (vs prior home regimen of 2mg BID) Monitor kidney fxn closely w weekly BMP Consider returning to lower dose if Cr > 1.4 - Continue spironolactone 25mg bid - Low salt diet and 1800 cc fluid restriction - Daily standing weights were obtained & pt at goal weight 150kg/~330lbs on day of discharge - I/O recorded per shift (w phillips in place); total UO during stay [id number] for net -[id number] - Follow up with HF clinic upon d/c #Hypokalemia: Acute - 3.4 at arrival, improved after 1x KCl 40meq po - 3.6 on day of discharge #Diabetes mellitus, type 2, with neurological manifestations: - Well-controlled with oral meds, last a1c (02/01) 5.6% - Continue Jardiance 10mg daily - Continue gabapentin 400mg QID #CKD stage 3, GFR 30-59 ml/min: - Baseline creatinine 1.2-1.5; Monitor closely in setting of chronic diuresis - 1.24 on day of discharge - Avoid nephrotoxic meds and renally adjust when appropriate #Musculoskeletal pain: - Began ~03:00 on 02/19 w R side pain spreading across upper chest to left side, 02/23 - Relieved w IV Mg and dilaudid and heating pad; worse w turning head to L and moving R arm - Reproducible w palpation along lev scap muscle and to lesser extent on pt's R side - CXR and trop neg - Expect sx resolution after hospital discharge; recc topical NSAID/analgesia while pain continues Total Time Total Time Spent Total Time Spent (In Minutes): <30 Discharge Plan Discharge Items Patient Disposition: Home - Self-Care Reason For Visit: PANNICULITIS AND CHF Discharge Diagnosis: Panniculitis, CHF Activity: Per Instructions section Non-emergency contact: Primary Care Provider Call non-emergency contact if: you have any medication questions, your symptoms worsen and your pain is not controlled Follow-up/Referrals: Awilda Eric CRNP [Primary Care Provider] - 02/28/24 10:00 am (AT [facility] [address]) Jose David Vega MD [Resident] - Diet: Regular and Low Sodium (2gm) Addtl Attending Provider Instructions: You were admitted to the hospital for recurrence of panniculitis, after substantial weight/fluid gain in that area upon stopping antibiotics. You were given IV daptomycin and cefepime for the infection, and IV Bumex at double your home dosage to take off excess fluid. You came in weighing 167 kg (~368 lbs), and at discharge you are at your typical weight of 150 kg (330 lbs). You were also seen regularly by wound care throughout your admission. We do not feel as though you have active panniculitis infection at this time, and along with your normalized weight, this made us feel you are safe to discharge. Despite the lack of active infection, you do still have many wounds that are prone to re-infection. For this reason, we want to start you on suppressive/prophylactic antibiotics: Keflex (cephalexin) 500 mg twice daily Near the end of your hospitalization, you started to have severe neck and chest/side pain on your right. Upon examination, we localized the issue to the levator scapulae muscle, which stretches along the back of your neck, from the cervical vertebrae to the shoulder blade. It attaches near the serratus anterior, which connects from your shoulder blade to the upper, outer surface of most of your ribs. This is why spasms and tension in your neck can also result in chest/side pain, especially with movement of your shoulder, arm, or turning your head. We anticipate this issue resolving on its own after discharge. If needed, you can apply Voltaren gel where it hurts. Massage the gel in for a few minutes, 3-4 times per day. Follow-up appointments: Make a follow-up appointment with your PCP within the next week. It is very important that you follow up with them shortly after discharge from the hospital. * We are also changing your home dose of Bumex, to 3mg (3 tablets) twice a day * Therefore, your kidney function should be closely monitored, with weekly BMP * If kidney function seems to worsen, your Bumex can be decreased. Also follow up with your plastic surgeon at [facility] regarding the panniculectomy You may call [phone] and ask to leave a message for Dr. Vega if you have any questions about your hospitalization. Contact your PCP if your pain persists or your symptoms return. Call [phone] or go to the ER if you experience any of the following: Sudden, severe abdominal pain or nausea/vomiting Severe chest pain, or chest pain that radiates (moves) to your jaw or arm Sudden, severe shortness of breath or difficulty breathing Thank you for allowing us to participate in your care. Pending Studies at Discharge: No Stand-Alone Forms: My [facility], Smoking Cessation Medications and DC Order Prescriptions: New cephalexin 500 mg capsule 500 mg PO BID 30 Days Qty: 60 0RF Continued cholecalciferol (vitamin D3) [Vitamin D3] 50 mcg (2,000 unit) capsule 2,000 unit PO TID Qty: 270 1RF allopurinol 100 mg tablet 100 mg PO BID Qty: 180 1RF (DME) CPAP Supplies Misc See Rx Instructions .Route Qty: 1 0RF Rx Instructions: As directed (DME) CPAP Machine Misc See Rx Instructions .Route Qty: 1 0RF Rx Instructions: As directed 11cm water pressure Jardiance 10 mg tablet 10 mg PO QAM Qty: 90 3RF Rx Instructions: for congestive heart failure multivitamin Tablet 1 tab PO QAM Qty: 90 1RF gabapentin 400 mg capsule 400 mg PO QID Qty: 360 0RF montelukast [Singulair] 10 mg tablet 10 mg PO QPM Qty: 90 3RF albuterol sulfate [Ventolin HFA] 90 mcg/actuation HFA aerosol inhaler 2 puff INHALATION Q4H PRN (Reason: Shortness Of Breath Or Wheezing) Qty: 18 3RF famotidine [Pepcid] 20 mg tablet 20 mg PO HS Qty: 90 3RF fluticasone propion-salmeterol [Advair Diskus] 250-50 mcg/dose blister with device 1 inh inhalation BID Qty: 1 11RF aspirin 81 mg tablet,delayed release (DR/EC) 81 mg PO QAM duloxetine [Cymbalta] 60 mg capsule,delayed release(DR/EC) 60 mg PO BID albuterol sulfate 2.5 mg /3 mL (0.083 %) solution for nebulization 2.5 mg inhalation Q6H PRN (Reason: Shortness Of Breath) Qty: 90 1RF Rx Instructions: needed cyanocobalamin (vitamin B-12) [Vitamin B-12] 1,000 mcg tablet 1,000 mcg PO QAM Tums 300 mg (750 mg) tablet,chewable 900 mg PO QAM diclofenac sodium [Voltaren Arthritis Pain] 1 % Gel 4 g EXT QID Qty: 1 0RF Rx Instructions: purchase [id number]; may use 4 grams on your lower back, either knee, either hip, back of neck. nystatin 100,000 unit/gram powder 1 applic topical TID PRN (Reason: yeast rash under breasts, abdominal skin folds) Qty: 30 0RF spironolactone 50 mg tablet 25 mg PO BID Qty: 0 0RF Hold Instructions: Resume on 02/03/24. On hold until okayed by PCP cetirizine [Zyrtec] 10 mg tablet 10 mg PO BID buspirone 15 mg tablet 15 mg PO UD Rx Instructions: Take 15mg w/ 5mg tablet to equal 20mg by mouth three times daily. potassium chloride [Klor-Con M20] 20 mEq tablet,ER particles/crystals 20 meq PO QAM hydroxyzine HCl 25 mg tablet 25 mg PO HS sucralfate [Carafate] 1 gram tablet 1 g PO AC PRN (Reason: heartburn/stomach upset) pantoprazole [Protonix] 40 mg tablet,delayed release (DR/EC) 40 mg PO BID bupropion HCl [Wellbutrin XL] 300 mg tablet extended release 24 hr 300 mg PO QAM tramadol 50 mg tablet 50 mg PO Q6H PRN (Reason: pain, for initial therapy, max 4tabs/day) Qty: 5 0RF epinephrine 0.3 mg/0.3 mL auto-injector 0.3 mg IM UD PRN (Reason: anaphylaxis) metoprolol succinate 25 mg Tablet Extended Release 24 Hr 25 mg PO DAILY Qty: 30 0RF nystatin 100,000 unit/gram Ointment 1 applic EXT TID Qty: 120 0RF buspirone 5 mg tablet 5 mg PO UD Qty: 0 0RF Rx Instructions: Take 5mg w/ 15mg tablet to equal 20mg by mouth three times daily. acetaminophen 500 mg tablet 1,000 mg PO TID PRN (Reason: fever or pain) Qty: 90 0RF Changed bumetanide 1 mg tablet 3 mg PO BID Qty: 360 0RF Rx Instructions: take every morning and every afternoon Discharge Orders: Discharge Order (Routine); Ordered 02/21/24 Ordered By: Jose David Vega Admission Data Admit Date/Time: 02/16/24 16:38 Attending Provider: Chaitanya Chand Admit Provider: Candido Varma Primary Care Provider: Awilda Eric Other Providers: Candido Varma Other Interventions: Discharge Summary Assessment (RN) Last Done: 02/21/24 16:19 Supervising Physician Co-Signing Physician Notes I personally examined the patient and verified all mae points of history and exam, discussed case, and agree with decision making with Dr Vega Feeling better. Feels up to going home. No new complaints. Notes that whenever she is off of antibiotics pannus gets worse. Vitals noted, in general she is awake and alert pleasant no distress. HEENT normocephalic atraumatic mucous membranes moist. Large pannus with ulcerations and what appeared to be predominantly stasis changes but no erythema nothing consistent with cellulitis. Right-sided lower C-spine/upper thoracic musculature high tone, tender, decreased range of motioninhibitory pressure/pelvic masstissue texture improved improved some. Patient tolerated well. IMPRESSION & PLAN Panniculitis, recurrent On review of her history, physical, and labsI highly doubt she has having recurrent/refractory cellulitis of her abdominal wall; rather, I strongly suspect she has chronic ulcerations that are slow to heal, and because of the area involved are reasonable susceptible to repeated secondary bacterial infections. I doubt she is harboring resistant pathogens or stubborn/difficult to eradicate infection, but rather that the wounds provide repeated "portal entry" for recurrent infections. Safe for home on p.o. antibioticsdefinitely needs ongoing wound care, surgical resection of pannus would likely fix the problem. HFpEF, acute on chronic Pannus venous stasis seems to respond to Bumexgiven that the swelling gets in the way of wound healing, need to continue higher dosing for now. Discussed with patient the risk/benefit of thisshe expresses good understanding and an expectation that she will follow-up lab work closely, and will have diuretic dose adjusted accordingly. Right-sided neck painconsistent with tight levator Scapinhibitory pressuresome improvement. Additional per resident documentation Resident Activity Tracking Resident Involvement: Resident Care Provided Care Provided: Adult Hospital Medicine
--- NOTE | 2024-02-21 19:08 | Billing Data ---
Date of Service February 21, 2024 Coding Level of Care Code 49501 IN/OBS DISCH 30 MIN/LESS
== END 2024-02-21 17:45 | disposition home or self-care (01) | DRG 606 ==
LOC: ED 14:09 → 2N 16:38 → SUATTDRO 16:38 → 2N 17:20

== ENCOUNTER 2024-07-23 14:36 | Inpatient (IN) ==
--- NOTE | 2024-07-23 15:25 | Emergency Department Note ---
Impression & Plan Diabetic infection of left foot, Volume overload, Acute osteomyelitis of toe of left foot ED Provider Note Provider: Dougie Martinez MD CHIEF COMPLAINT: Leg swelling and leaking, foot wound HISTORY OF PRESENT ILLNESS: Patient is a 63-year-old female past medical history including CHF, CKD, obesity, diabetes, CVA, and gout presenting here today reporting she has had significant weight loss and had appendectomy in February. Was having significant urination with the Bumex and spironolactone she was on to stop Bumex about a month ago. Has been taking the spironolactone now. States he has been losing weight. Noted prickly last several days increased swelling of her legs. No difficulty breathing or abdominal swelling. Abdominal penectomy wound is well. Maybe some subjective chills or fever but no measured fever. No trauma to the legs. The third toe on her left foot has a significant wound. Does follow the wound clinic for some chronic lateral and plantar wounds on the right and left foot. Does state again just over the past 2 to 3 days she has noticed this wound on her third left toe. Is concerned about this with the significant weeping has been soaking through things at home. PAST MEDICAL HISTORY: As noted above MEDICATIONS: Reviewed home medications not currently taking Bumex SOCIAL HISTORY: Resides at home PHYSICAL EXAM: GENERAL: alert and oriented in no acute distress on stretcher Head: normocephalic and atraumatic EYES: No injection, discharge or icterus. NECK: Trachea midline. Supple. ENT: Mucous membranes pink and moist. LUNGS: Airway patent. No retractions. Breath sounds clear HEART: Regular rate and rhythm. No chest wall tenderness ABDOMEN: Soft and non-tender, without guarding or rebound. SKIN: Acyanotic, warm, dry, without rashes EXTREMITIES: 2-3+ edema the bilateral lower extremities some left greater than right erythema through the mid calf. There is weeping clear serous fluid in the bilateral legs with some mild skin breakdown here. There is some more chronic appearing about centimeter bilateral midfoot ulcers as well as a chronic area the base of the first toe on the plantar aspect of just over centimeter chronic wound. The left third toe is red and macerated with what appears to be a bit of exposed blackish brown bone at the tip. NEUROLOGICAL: No focal deficits. No aphasia. No facial droop or slurred speech. Ambulatory. EK bpm normal sinus rhythm. No PVC or PAC. No acute ST segment elevation or depression with QTc of 462. Some nonspecific T wave flattening. CONTINUOUS CARDIAC MONITORING: was ordered and showed a heart rate of 70s to 90s bpm in normal sinus rhythm Patient's laboratory studies and imaging reviewed. Differential includes DVT, musculoskeletal, infection, joint effusion, trauma, lymphedema, idiopathic, CHF, as well as other pathologies. IMPRESSION/MEDICAL DECISION MAKING: Exposed bone in the left third toe concern for gangrene and some cellulitis left greater than right. BMP sent does appear fluid overloaded. Has stopped Bumex. Will check renal function given her CKD. Chest x-ray be obtained but not complaining of shortness of breath. EKG and troponins have been again not complaining of chest pain or shortness of breath. Will cover empirically with cefepime, daptomycin, and Flagyl for microbial coverage and a wound culture from the toe was obtained. Blood culture sent. Does appear septic. X-rays obtained as well as inflammatory markers with concern for osteomyelitis of this toe with exposed bone and gangrene. X-ray concerning for acute on chronic osteo of the toe. Inflammatory markers all elevated. No significant leukocytosis or anemia. No troponin elevation. Kidney function looks well with creatinine 1.1 today. I do believe she will tolerate a dose of Bumex here for some diuresis given this to help with swelling and the infection. Again not systemically septic. Covered broadly with cefepime, Flagyl, & daptomycin in discussion with pharmacy. Will likely need surgical evaluation for possible amputation of the toe. Will bring in for further care and she is agreeable for this. Hospitalist team contacted. DIAGNOSIS: Left toe osteomyelitis, fluid overload DISPOSITION: Hospitalist will evaluate Patient was agreeable with this plan. Past Med/Surg History Problem List (Updated 07/23/24 @ 20:28 by Dougie Martinez M.D.) Acute osteomyelitis of toe of left foot (Acute) Diabetic infection of left foot (Acute) Toe gangrene Cellulitis of both lower extremities 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 Status post panniculectomy Musculoskeletal pain Cellulitis of left leg (Acute) Weakness (Acute) Weight gain (Acute) CHF (congestive heart failure) (Acute) Panniculitis (Acute) Acute kidney injury superimposed on CKD Obesity (Acute) Failure of outpatient treatment (Acute) Cellulitis (Acute) Supraclavicular lymphadenopathy Acute on chronic heart failure with preserved ejection fraction Open wound of abdomen (Acute) Morbid obesity HAYES (dyspnea on exertion) (Acute) CKD (chronic kidney disease) stage 3, GFR 30-59 ml/min (Acute) Acute exacerbation of CHF (congestive heart failure) (Acute) Cellulitis (Acute) Cellulitis of suprapubic region Acute on chronic heart failure VARINDER (acute kidney injury) Osteoarthritis of hip Constipation Lymphoma Hip pain, right Failure of outpatient treatment (Acute) CRF (chronic renal failure) (Acute) Edema of both lower extremities (Acute) Fluid overload (Acute) Edema of abdominal wall (Acute) Ulcer of both feet Volume overload Hx MRSA infection 09/2021 s/p left knee infection > resolved > continues with doxycycline daily for prevention Lymphadenopathy of left cervical region Urticaria Chronic ulcer of left foot with fat layer exposed Diabetic foot ulcer (Acute) Diabetes mellitus type 2 with neurological manifestations Candidiasis of skin Solitary kidney, congenital Bilateral hip pain Low back pain Weakness (Acute) Lower extremity edema (Acute) CHF (congestive heart failure) (Acute) Abdominal pannus Fatty liver Dependent lymphedema Stage 3b chronic kidney disease Anemia reason for procedure. iron infusions recently. 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 Other ovarian cyst, left side Vitamin D deficiency Peripheral neuropathy Lumbar spinal stenosis 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- DISCOVERED WITH INCIDENTAL IMAGING Gout CKD (chronic kidney disease) stage 3, GFR 30-59 ml/min monitoring Chronic back pain Acid reflux Medical History Abdominal wall cellulitis Hypokalemia Mast cell disease B-cell lymphoma Hx-TIA (transient ischemic attack) Hx of sepsis Hypertension Lumbar spinal stenosis Arthritis Allergic rhinitis Gout Other ovarian cyst, left side Acid reflux Severe obstructive sleep apnea Stage 3 chronic kidney disease Fatty liver CHF (congestive heart failure) Solitary kidney, congenital Diabetes mellitus, type 2 Ulcer of foot Chronic ulcer of right foot with fat layer exposed History of COVID-19 Iron deficiency anemia Venous stasis of both lower extremities MDD (major depressive disorder), recurrent episode, moderate Ambulatory dysfunction Depression with anxiety Degenerative joint disease, shoulder, right Lymphedema Asthma Hyperlipidemia Surgical History Hx of biopsy (12/29/23) History of insertion of central venous access port History of revision of total replacement of left knee joint History of cardiac cath History of colonoscopy History of esophagogastroduodenoscopy (EGD) History of bilateral knee replacement (10/16/22) H/O knee surgery (12/2021) S/P tonsillectomy and adenoidectomy Status post total shoulder arthroplasty (10/17/18) History of carpal tunnel release H/O ventral hernia repair History of appendectomy History of cholecystectomy Family History Mother Diabetes Coronary heart disease Myocardial infarction S/P CABG x 3 Hypertension Gallbladder disease Sister Hodgkins lymphoma Brother Kidney disease Grandmother Breast cancer Aunt Ovarian cancer Father Peripheral vascular disease Daughter Diabetes Other Cancer No family history of adverse response to anesthesia Denies family history of Prostate cancer Colorectal cancer Social History Smoking Status: Former smoker Tobacco Type: Cigarettes Age Started Using Tobacco: 22; Age Quit Using Tobacco: 24; packs per day: 1; Second Hand Exposure: No; Do You Dip or Chew Tobacco: No; Hx Alcohol Use: No Hx Substance Use: No Preferred Language: [place]an 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 Ability: Effective Visual Impairment: Limited Hearing Ability: Normal Core Maker Helper Required: No Beliefs That Will Affect Care: None marital status: marital status details: ; lives with parents & 1 daughter Current Living Situation: Alone Current Living Situation Comment: Lives with mother and daughter current occupational status: disabled 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: 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; 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 Feels Safe at Home: Yes Childhood Exposure to Second-Hand Smoke: No Diet: regular Diet Comment: regular caffeine: No Dental Care, Regularly: No Physical Activity Frequency: Does not Exercise Seatbelt Use: always Sunscreen Use: Yes Assistive Devices: CPAP and Walker Allergies Allergies Allergy/AdvReac Type Severity Reaction Status Date / Time Corticosteroids Allergy Severe Anaphylaxis Unverified 07/23/24 17:40 (Glucocorticoids) dog dander Allergy Intermediate Rash Verified 07/23/24 17:40 morphine Allergy Intermediate mouth and Verified 07/23/24 17:40 face swells Penicillins Allergy Intermediate rash/hives Verified 07/23/24 17:40 adhesive Allergy Mild Skin rash Verified 07/23/24 17:40 localized zolpidem Allergy Unknown Unknown Verified 07/23/24 17:40 pregabalin AdvReac Intermediate "makes Verified 07/23/24 17:40 goofy" Home Meds Home Medications Medication Instructions Recorded Confirmed calcium carbonate (Tums) 900 mg PO QAM 03/03/22 07/23/24 cyanocobalamin (vitamin B-12) 1,000 mcg PO QAM 03/03/22 07/23/24 1,000 mcg tablet (Vitamin B-12) aspirin 81 mg tablet,delayed 81 mg PO QAM 06/25/23 07/23/24 release duloxetine 60 mg capsule,delayed 60 mg PO BID 06/25/23 07/23/24 release (Cymbalta) buspirone 15 mg tablet 15 mg PO TID 10/20/23 07/23/24 cetirizine 10 mg tablet (Zyrtec) 10 mg PO BID 10/20/23 07/23/24 hydroxyzine HCl 25 mg tablet 25 mg PO HS 12/24/23 07/23/24 potassium chloride 20 mEq 20 meq PO QAM 12/24/23 07/23/24 tablet,extended release(part/cryst) (Klor-Con M) epinephrine 0.3 mg/0.3 mL 0.3 mg IM UD PRN anaphylaxis 01/06/24 07/23/24 injection, auto-injector bumetanide 1 mg tablet 0 mg PO BID 06/09/24 07/23/24 losartan 25 mg tablet 25 mg PO QAM 07/23/24 07/23/24 nystatin 100,000 unit/gram topical 1 applic EXT TID PRN FLARE 07/23/24 07/23/24 ointment Previous Rx's Medication Instructions Recorded cholecalciferol (vitamin D3) 50 2,000 unit PO TID #270 caps 07/18/21 mcg (2,000 unit) capsule (Vitamin D3) albuterol sulfate 2.5 mg/3 mL 2.5 mg (3 mL) inhalation Q6H PRN 06/25/23 (0.083 %) solution for nebulization Shortness Of Breath #90 mL diclofenac sodium 1 % topical gel 4 g EXT QID #1 tube 08/30/23 (Voltaren Arthritis Pain) nystatin 100,000 unit/gram topical 1 applic topical TID PRN yeast 08/30/23 powder rash under breasts, abdominal skin folds #30 grams CPAP Supplies #1 ea 09/28/23 CPAP Machine #1 ea 09/29/23 empagliflozin 10 mg tablet 10 mg PO QAM #90 tabs 12/02/23 (Jardiance) multivitamin 1 tab PO QAM #90 tabs 12/20/23 montelukast 10 mg tablet 10 mg PO QPM #90 tabs 01/03/24 (Singulair) albuterol sulfate 90 mcg/actuation 2 puff inhalation Q4H PRN 01/04/24 aerosol inhaler (Ventolin HFA) Shortness Of Breath Or Wheezing #18 grams famotidine 20 mg tablet (Pepcid) 20 mg PO HS #90 tabs 01/10/24 acetaminophen 500 mg tablet 1,000 mg (2 x 500 mg) PO TID PRN 02/04/24 fever or pain #90 tabs allopurinol 100 mg tablet 100 mg PO BID #180 tabs 03/17/24 pantoprazole 40 mg tablet,delayed 40 mg PO BID #90 tabs 05/31/24 release (Protonix) bupropion HCl 150 mg 24 hr tablet, 150 mg PO QAM #90 tabs 06/08/24 extended release gabapentin 400 mg capsule 400 mg PO QID #360 caps 06/30/24 Results & Data (ED) Vital Signs Vital Signs - 24 hr 07/23/24 14:41 07/23/24 15:04 07/23/24 15:27 Temperature 36.5 C Temperature Source Temporal Artery Scan Pulse Rate 89 85 Pulse Rate [Left Apical] 85 Respiratory Rate 18 19 Respiratory Effort / Characteristics Non-Labored Spontaneous Non-Labored Spontaneous Respiratory Depth Normal Normal Respiratory Pattern Regular Blood Pressure 125/82 Blood Pressure [Right Arm] 126/67 Blood Pressure Mean 96 Blood Pressure Mean [Right Arm] 86 Pulse Oximetry 99 99 Oxygen Delivery Method Room Air Room Air Sepsis Recent Fever Within 48 Hours No Sepsis New/Unexplained Change in Mental Status No Sepsis Action Taken by Nursing No Action Required 07/23/24 15:30 07/23/24 16:00 07/23/24 16:05 Temperature Temperature Source Pulse Rate 80 88 Pulse Rate [Left Apical] Respiratory Rate 18 21 Respiratory Effort / Characteristics Respiratory Depth Respiratory Pattern Blood Pressure 134/68 118/69 Blood Pressure [Right Arm] Blood Pressure Mean 90 80 Blood Pressure Mean [Right Arm] Pulse Oximetry 99 Oxygen Delivery Method Room Air Sepsis Recent Fever Within 48 Hours Sepsis New/Unexplained Change in Mental Status Sepsis Action Taken by Nursing 07/23/24 16:27 07/23/24 16:33 Temperature Temperature Source Pulse Rate 85 84 Pulse Rate [Left Apical] Respiratory Rate 23 20 Respiratory Effort / Characteristics Respiratory Depth Respiratory Pattern Blood Pressure Blood Pressure [Right Arm] Blood Pressure Mean Blood Pressure Mean [Right Arm] Pulse Oximetry 100 100 Oxygen Delivery Method Room Air Room Air Sepsis Recent Fever Within 48 Hours Sepsis New/Unexplained Change in Mental Status Sepsis Action Taken by Nursing Laboratory Data 07/23/24 15:02 07/23/24 15:02 Lab Results 07/23/24 07/23/24 Range/Units 15:02 16:04 WBC 10.80 (4.8-10.8) K/ul RBC 5.00 (4.20-5.40) M/uL Hgb 12.3 (12.0-16.0) g/dl Hct 39.4 (37.0-47.0) % MCV 78.8 L (80.0-100.0) fL MCH 24.6 L (25.0-34.0) pg MCHC 31.2 L (32.0-36.0) g/dL RDW Std Deviation 43.4 (36.4-46.3) fL RDW Coeff of Cleo 15.1 H (11.5-14.5) % Plt Count 422 H (130-400) K/uL MPV 9.7 (9.4-12.4) fL Immature Gran % (Auto) 0.4 % Neut % (Auto) 72.9 % Lymph % (Auto) 15.8 % [place] % (Auto) 7.0 % Eos % (Auto) 3.6 % Baso % (Auto) 0.3 % Neut # (Auto) 7.87 H (1.40-6.50) K/uL Lymph # (Auto) 1.71 (1.20-3.40) K/uL [place] # (Auto) 0.76 H (0.11-0.59) K/uL Eos # (Auto) 0.39 (0.00-0.50) K/uL Baso # (Auto) 0.03 (0.00-0.20) K/uL Immature Gran # (Auto) 0.04 (0.01-0.20) K/uL ESR > 130 H (0-30) mm/hr PT 11.2 (9.0-12.0) Seconds INR 1.0 (0.9-1.1) Sodium 137 (136-145) mmol/L Potassium 3.9 (3.5-5.1) mmol/L Chloride 102 (98-107) mmol/L Carbon Dioxide 28 (21-32) mmol/L Anion Gap 7 (3-11) BUN 10 (6-23) mg/dl Creatinine 1.10 (0.6-1.2) mg/dl Est Cr Clr Drug Dosing 84.7 ml/min eGFR 57.17 BUN/Creatinine Ratio 9.1 L (10-20) Glucose 103 H (70-99(Fasting)) mg/dl Lactate 1.7 (0.4-2.0) mmol/L Calcium 8.8 (8.6-10.3) mg/dl Magnesium 1.7 (1.7-2.4) mg/dl Total Bilirubin 0.5 (0.2-1.0) mg/dl AST 14 (13-39) U/L ALT 14 (7-52) U/L Alkaline Phosphatase 84 (34-104) U/L Troponin I High Sens < 2.3 (0-14) pg/ml C-Reactive Protein 9.93 H (0-0.5) mg/dl B-Natriuretic Peptide 25 (0-100) pg/ml Total Protein 7.7 (6.0-8.3) gm/dl Albumin 3.5 (3.4-5.0) gm/dl Globulin 4.2 H (2.5-4.0) gm/dl Albumin/Globulin Ratio 0.8 L (0.9-2) Procalcitonin 0.07 (0-0.5) ng/ml Administered Medications Discontinued Medications Cefepime HCl (Maxipime 2000mg) 2,000 mg in 20 mls @ 5 mls/min IV NOW STA; Protocol Stop: 07/23/24 15:28 Last Admin: 07/23/24 16:32 Dose: 5 mls/min Documented By: NAIN Bumetanide 2 mg/ Syringe 8 mls @ 4 mls/min IV ONE ONE Stop: 07/23/24 16:11 Last Admin: 07/23/24 17:44 Dose: 4 mls/min Documented By: NAIN Clindamycin Phosphate (Cleocin/D5w) 600 mg in 50 mls @ 100 mls/hr IV NOW ONE Stop: 07/23/24 17:01 Last Infusion: 07/23/24 18:22 Dose: Infused Documented By: Admin: 07/23/24 17:44 Dose: 100 mls/hr Documented By: NAIN Metronidazole (Metronidazole 500 Mg Tab) 500 mg PO NOW STA; Protocol Stop: 07/23/24 15:27 Last Admin: 07/23/24 16:31 Dose: 500 mg Documented By: NAIN Imaging Data Radiologist's Impression: Chest X-Ray 07/23/24 15:19 EXAM: Radiograph of the Chest 1 View INDICATION: Foot swelling. Possible osteomyelitis. TECHNIQUE: Frontal view of the chest. COMPARISON: 02/16/2024 FINDINGS: Lungs and pleural spaces: No consolidation or pulmonary edema. No pleural effusion or pneumothorax. Heart: Stable large cardiac shadow. Mediastinum: Normal contour. Bones/joints: Visualized portion of right shoulder arthroplasty intact and well-seated. Soft tissues: No abnormality noted. No radiopaque foreign body noted. Upper abdomen: No abnormality noted. IMPRESSION: No acute cardiopulmonary disease. ACT 112: N/A Electronically signed by Brooklyn Javier 07-23-2024 3:51 PM Foot X-Ray 07/23/24 15:19 EXAM: Radiographs of the Left Foot Complete 3 Views INDICATION: Swelling. Third toe wound. TECHNIQUE: Frontal, lateral and oblique views of the left foot. COMPARISON: No relevant prior studies available. FINDINGS: Bones/joints: There is flattening deformity of the tuft of the third distal phalanx. No aggressive periosteal reaction noted. No fracture. There is mild plantar and Achilles surface calcaneal spurring. Soft tissues: Cutaneous ulceration noted over the third distal phalanx. There is a soft tissue gas collection plantar and lateral to the proximal fifth metatarsal. Generalized soft tissue swelling noted. No radiopaque foreign body noted. IMPRESSION: 1. Acute versus chronic osteomyelitis of the tuft of the third distal phalanx with overlying skin ulceration. 2. Generalized swelling with a soft tissue gas collection dorsal and lateral to the base of the fifth metatarsal. Abscess not excluded. ACT 112: N/A Electronically signed by Brooklyn Javier 07-23-2024 3:51 PM Discharge Plan Visit Data Chief Complaint: Swelling/Edema to Extremity Stated Complaint: SWELLING AND SEEPING OF LEGS, BAD TOES ED Provider: Dougie Martinez Discharge Problem: Diabetic infection of left foot, Volume overload, Acute osteomyelitis of toe of left foot Patient Disposition: Admitted As Inpatient Discharge Instructions Interventions: ED Discharge Assessment Last Done: 07/23/24 19:35 Discharge Problem: Volume overload Qualifiers: Hypervolemia type: other Qualified Code(s): E87.79 - Other fluid overload
[2024-07-23] MEDS ORDERED: DAPTOmycin 900 MG in SYRINGE 0 ML IV SCH (15:30)
[2024-07-23 15:35] LABS: Basophils # (auto) 0.03 K/uL (0.00-0.20); Basophils % (auto) 0.3 %; Eosinophils # (auto) 0.39 K/uL (0.00-0.50); Eosinophils % (auto) 3.6 %; Hematocrit (blood only) 39.4 % (37.0-47.0); Hemoglobin 12.3 g/dl (12.0-16.0); Immature Granulocytes # (auto) 0.04 K/uL (0.01-0.20); Immature Granulocytes % (auto) 0.4 %; Lymphocytes # (auto) 1.71 K/uL (1.20-3.40); Lymphocytes % (auto) 15.8 %; Mean Corpuscular Hemoglobin 24.6 pg (25.0-34.0); Mean Corpuscular Hgb Conc 31.2 g/dL (32.0-36.0); Mean Corpuscular Volume 78.8 fL (80.0-100.0); Mean Platelet Volume 9.7 fL (9.4-12.4); Monocytes # (auto) 0.76 K/uL (0.11-0.59); Neutrophils # (auto) 7.87 K/uL (1.40-6.50); Neutrophils % (auto) 72.9 %; Platelet Count 422 K/uL (130-400); RDW Coefficient of Variation 15.1 % (11.5-14.5); RDW Standard Deviation 43.4 fL (36.4-46.3)
[2024-07-23 15:43] LABS: Alanine Aminotransferase 14 U/L (7-52); Albumin Globulin Ratio 0.8 (0.9-2); Albumin Level 3.5 gm/dl (3.4-5.0); Alkaline Phosphatase 84 U/L (34-104); Anion Gap 7 (3-11); Aspartate Aminotransferase 14 U/L (13-39); BUN Creatinine Ratio 9.1 (10-20); Bilirubin,Total 0.5 mg/dl (0.2-1.0); Blood Urea Nitrogen 10 mg/dl (6-23); C Reactive Protein 9.93 mg/dl (0-0.5); Calcium 8.8 mg/dl (8.6-10.3); Carbon Dioxide 28 mmol/L (21-32); Chloride 102 mmol/L (98-107); Creatinine Clr Calc Pharmacy 84.7 ml/min; Globulin 4.2 gm/dl (2.5-4.0); Glucose 103 mg/dl (70-99(Fasting)); Magnesium 1.7 mg/dl (1.7-2.4); Potassium 3.9 mmol/L (3.5-5.1); Sodium 137 mmol/L (136-145); Total Protein 7.7 gm/dl (6.0-8.3)
[2024-07-23 15:49] LABS: Troponin I High Sensitivity < 2.3 pg/ml (0-14)
--- NOTE | 2024-07-23 15:51 | XRay Report ---
EXAM: Radiograph of the Chest 1 View INDICATION: Foot swelling. Possible osteomyelitis. TECHNIQUE: Frontal view of the chest. COMPARISON: 02/16/2024 FINDINGS: Lungs and pleural spaces: No consolidation or pulmonary edema. No pleural effusion or pneumothorax. Heart: Stable large cardiac shadow. Mediastinum: Normal contour. Bones/joints: Visualized portion of right shoulder arthroplasty intact and well-seated. Soft tissues: No abnormality noted. No radiopaque foreign body noted. Upper abdomen: No abnormality noted. IMPRESSION: No acute cardiopulmonary disease. ACT 112: N/A Electronically signed by Brooklyn Javier 07-23-2024 3:51 PM
--- NOTE | 2024-07-23 15:52 | XRay Report ---
EXAM: Radiographs of the Left Foot Complete 3 Views INDICATION: Swelling. Third toe wound. TECHNIQUE: Frontal, lateral and oblique views of the left foot. COMPARISON: No relevant prior studies available. FINDINGS: Bones/joints: There is flattening deformity of the tuft of the third distal phalanx. No aggressive periosteal reaction noted. No fracture. There is mild plantar and Achilles surface calcaneal spurring. Soft tissues: Cutaneous ulceration noted over the third distal phalanx. There is a soft tissue gas collection plantar and lateral to the proximal fifth metatarsal. Generalized soft tissue swelling noted. No radiopaque foreign body noted. IMPRESSION: 1. Acute versus chronic osteomyelitis of the tuft of the third distal phalanx with overlying skin ulceration. 2. Generalized swelling with a soft tissue gas collection dorsal and lateral to the base of the fifth metatarsal. Abscess not excluded. ACT 112: N/A Electronically signed by Brooklyn Javier 07-23-2024 3:51 PM
[2024-07-23 16:16] LABS: Prothrombin Time 11.2 Seconds (9.0-12.0)
[2024-07-23] MEDS: metroNIDAZOLE 500 MG TAB PO STA (16:31)
[2024-07-23] MEDS: CEFEPIME 2000MG 2,000 MG/20 ML SYR IV STA (16:32)
--- NOTE | 2024-07-23 16:59 | History & Physical Report ---
Date of Service July 23, 2024 Assessment & Plan (1) Cellulitis of both lower extremities: (2) Toe gangrene: (3) Acute on chronic heart failure with preserved ejection fraction: (4) CKD (chronic kidney disease) stage 3, GFR 30-59 ml/min: (5) Diabetes mellitus, type 2: Plan This is a 63 year old female with past medical history of arthritis, allergic rhinitis, gout, CHF, Type 2 DM, CKD, asthma who presented to the ED on 07/23 with a complaint of lower extremity edema and foot wound. #B/L LE cellulitis/gangrene left third toe Patient w/ new wound on left third toe ~3 days [employer]PER[employer]. 1 week of chills. Patient w/ chronic lower extremity wounds, follows w/ outpatient wound clinic. Has noticed worsening seepage and edema of LE along w/ left foot pain. On PE patient appears to have LE cellulitis on both extremities, L worse than R w/ a 3rd toe wound w/ what appears to be down to the bone. Left foot XR: acute vs chronic osteomyelitis of tuft of third distal phalanx w/ overlying skin ulceration. generalized swelling w/ soft tissue gas collection & lateral to base of 5th metatarsal. abscess not excluded. CBC w/o leukocytosis. BMP stable. CRP 9.93, ESR > 130, procal 0.07 s/p IV Cefepime, Flagyl, Clindamycin in the ED. Continue Cefepime & Clindamycin upon admission. Continue Allopurinol (hx of gout) 3rd toe wound & BC pending. Left foot MRI pending. Podiatry consulted, appreciate recommendations. Wound nurse consulted. AM CBC, BMP, Procal, CRP, ESR #Acute on chronic heart failure Patient reportedly been off her bumex for ~ 1 month due to weight loss. Follows w/ CHF clinic outpatient. EKG on admission normal sinus rhythm Last Echo 08/2023: EF 65-70%. dilated RV w/ nl systolic function. no change from previous (2022) Update Echo in AM CXR negative s/p 2mg IV Bumex in ED, continue 2mg IV BID upon admission & monitor kidney function. Continue spironolactone 25mg BID, Metoprolol 25mg daily. #Type 2 DM On Jardiance outpatient, hold while inpatient. A1c 01/2024 5.6% BG 103 on admission, hold sliding scale insulin but check BG frequently and add insulin if necessary. Continue gabapentin for neuropathy Updated A1c in AM #CKD stage 3 Baseline creatinine 1.2-1.5 Creatinine @ baseline on admission, 1.10. Electrolytes stable, continue potassium supplement daily AM BMP Chronic conditions: Asthma/allergic rhinitis: Albuterol prn, Cetirizine, Montelukast Mental health: bupropion, buspirone, Duloxetine, Hydroxyzine GERD: Pepcid, PPI DVT prophylaxis: hold pending podiatry eval in event patient would require surgery. Code: full Case discussed w/ Dr. Serrano at time of admission. History of Present Illness Primary Care Provider: CARRIE Monaco This is a 63 year old female with past medical history of arthritis, allergic rhinitis, gout, CHF, Type 2 DM, CKD, asthma who presented to the ED on 07/23 with a complaint of lower extremity edema and foot wound. Patient was seen and examined at bedside this afternoon. Patient reports that she has been having chills for approximately one week with no fevers. Then about 3 days ago she noticed that she had a new wound on her left 3rd toe. She routinely follows with the wound clinic for the remainder of her wounds but she reports this one was new. She also has had increased seeping and lower extremity edema/redness b/l. Her legs have been warm to the touch recently. She reports she has been having left foot pain as well. Patient stopped taking her Bumex outpatient for about a month. Reports she was losing too much weight. She denied SOB or CP. Denied abdominal pain or any urinary symptoms. While in the ED she was found to have osteomyelitis of her left 3rd toe. CXR read as negative. CBC w/o leukocytosis. Troponins were not elevated. Creatinine was within normal limits. ESR/CRP elevated She was given 2mg IV Bumex on admission along with Cefepime, flagyl and clindamycin. Allergies Allergy/AdvReac Type Severity Reaction Status Date / Time Corticosteroids Allergy Severe Anaphylaxis Unverified 07/23/24 17:40 (Glucocorticoids) dog dander Allergy Intermediate Rash Verified 07/23/24 17:40 morphine Allergy Intermediate mouth and Verified 07/23/24 17:40 face swells Penicillins Allergy Intermediate rash/hives Verified 07/23/24 17:40 adhesive Allergy Mild Skin rash Verified 07/23/24 17:40 localized zolpidem Allergy Unknown Unknown Verified 07/23/24 17:40 pregabalin AdvReac Intermediate "makes Verified 07/23/24 17:40 goofy" Home Medications Medication Instructions Recorded Confirmed Type cholecalciferol (vitamin D3) 50 2,000 unit PO TID #270 caps 07/18/21 07/23/24 Rx mcg (2,000 unit) capsule (Vitamin D3) calcium carbonate (Tums) 900 mg PO QAM 03/03/22 07/23/24 History cyanocobalamin (vitamin B-12) 1,000 mcg PO QAM 03/03/22 07/23/24 History 1,000 mcg tablet (Vitamin B-12) albuterol sulfate 2.5 mg/3 mL 2.5 mg (3 mL) inhalation Q6H PRN 06/25/23 07/23/24 Rx (0.083 %) solution for nebulization Shortness Of Breath #90 mL aspirin 81 mg tablet,delayed 81 mg PO QAM 06/25/23 07/23/24 History release duloxetine 60 mg capsule,delayed 60 mg PO BID 06/25/23 07/23/24 History release (Cymbalta) diclofenac sodium 1 % topical gel 4 g EXT QID #1 tube 08/30/23 07/23/24 Rx (Voltaren Arthritis Pain) nystatin 100,000 unit/gram topical 1 applic topical TID PRN yeast 08/30/23 07/23/24 Rx powder rash under breasts, abdominal skin folds #30 grams CPAP Supplies #1 ea 09/28/23 06/09/24 Rx CPAP Machine #1 ea 09/29/23 06/09/24 Rx buspirone 15 mg tablet 15 mg PO TID 10/20/23 07/23/24 History cetirizine 10 mg tablet (Zyrtec) 10 mg PO BID 10/20/23 07/23/24 History empagliflozin 10 mg tablet 10 mg PO QAM #90 tabs 12/02/23 07/23/24 Rx (Jardiance) multivitamin 1 tab PO QAM #90 tabs 12/20/23 07/23/24 Rx hydroxyzine HCl 25 mg tablet 25 mg PO HS 12/24/23 07/23/24 History potassium chloride 20 mEq 20 meq PO QAM 12/24/23 07/23/24 History tablet,extended release(part/cryst) (Klor-Con M) montelukast 10 mg tablet 10 mg PO QPM #90 tabs 01/03/24 07/23/24 Rx (Singulair) albuterol sulfate 90 mcg/actuation 2 puff inhalation Q4H PRN 01/04/24 07/23/24 Rx aerosol inhaler (Ventolin HFA) Shortness Of Breath Or Wheezing #18 grams epinephrine 0.3 mg/0.3 mL 0.3 mg IM UD PRN anaphylaxis 01/06/24 07/23/24 History injection, auto-injector famotidine 20 mg tablet (Pepcid) 20 mg PO HS #90 tabs 01/10/24 07/23/24 Rx acetaminophen 500 mg tablet 1,000 mg (2 x 500 mg) PO TID PRN 02/04/24 07/23/24 Rx fever or pain #90 tabs allopurinol 100 mg tablet 100 mg PO BID #180 tabs 03/17/24 07/23/24 Rx pantoprazole 40 mg tablet,delayed 40 mg PO BID #90 tabs 05/31/24 07/23/24 Rx release (Protonix) bupropion HCl 150 mg 24 hr tablet, 150 mg PO QAM #90 tabs 06/08/24 07/23/24 Rx extended release bumetanide 1 mg tablet 0 mg PO BID 06/09/24 07/23/24 History gabapentin 400 mg capsule 400 mg PO QID #360 caps 06/30/24 07/23/24 Rx losartan 25 mg tablet 25 mg PO QAM 07/23/24 07/23/24 History nystatin 100,000 unit/gram topical 1 applic EXT TID PRN FLARE 07/23/24 07/23/24 History ointment Past Med/Surg History Problem List (Updated 07/23/24 @ 17:04 by Mansi Pascual PA-C) Toe gangrene Cellulitis of both lower extremities 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 Status post panniculectomy Musculoskeletal pain Cellulitis of left leg (Acute) Weakness (Acute) Weight gain (Acute) CHF (congestive heart failure) (Acute) Panniculitis (Acute) Acute kidney injury superimposed on CKD Obesity (Acute) Failure of outpatient treatment (Acute) Cellulitis (Acute) Supraclavicular lymphadenopathy Acute on chronic heart failure with preserved ejection fraction Open wound of abdomen (Acute) Morbid obesity HAYES (dyspnea on exertion) (Acute) CKD (chronic kidney disease) stage 3, GFR 30-59 ml/min (Acute) Acute exacerbation of CHF (congestive heart failure) (Acute) Cellulitis (Acute) Cellulitis of suprapubic region Acute on chronic heart failure VARINDER (acute kidney injury) Osteoarthritis of hip Constipation Lymphoma Hip pain, right Failure of outpatient treatment (Acute) CRF (chronic renal failure) (Acute) Edema of both lower extremities (Acute) Fluid overload (Acute) Edema of abdominal wall (Acute) Ulcer of both feet Volume overload Hx MRSA infection 09/2021 s/p left knee infection > resolved > continues with doxycycline daily for prevention Lymphadenopathy of left cervical region Urticaria Chronic ulcer of left foot with fat layer exposed Diabetic foot ulcer (Acute) Diabetes mellitus type 2 with neurological manifestations Candidiasis of skin Solitary kidney, congenital Bilateral hip pain Low back pain Weakness (Acute) Lower extremity edema (Acute) CHF (congestive heart failure) (Acute) Abdominal pannus Fatty liver Dependent lymphedema Stage 3b chronic kidney disease Anemia reason for procedure. iron infusions recently. 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 Other ovarian cyst, left side Vitamin D deficiency Peripheral neuropathy Lumbar spinal stenosis 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- DISCOVERED WITH INCIDENTAL IMAGING Gout CKD (chronic kidney disease) stage 3, GFR 30-59 ml/min monitoring Chronic back pain Acid reflux Medical History Abdominal wall cellulitis Hypokalemia Mast cell disease B-cell lymphoma Hx-TIA (transient ischemic attack) Hx of sepsis Hypertension Lumbar spinal stenosis Arthritis Allergic rhinitis Gout Other ovarian cyst, left side Acid reflux Severe obstructive sleep apnea Stage 3 chronic kidney disease Fatty liver CHF (congestive heart failure) Solitary kidney, congenital Diabetes mellitus, type 2 Ulcer of foot Chronic ulcer of right foot with fat layer exposed History of COVID-19 Iron deficiency anemia Venous stasis of both lower extremities MDD (major depressive disorder), recurrent episode, moderate Ambulatory dysfunction Depression with anxiety Degenerative joint disease, shoulder, right Lymphedema Asthma Hyperlipidemia Surgical History Hx of biopsy (12/29/23) History of insertion of central venous access port History of revision of total replacement of left knee joint History of cardiac cath History of colonoscopy History of esophagogastroduodenoscopy (EGD) History of bilateral knee replacement (10/16/22) H/O knee surgery (12/2021) S/P tonsillectomy and adenoidectomy Status post total shoulder arthroplasty (10/17/18) History of carpal tunnel release H/O ventral hernia repair History of appendectomy History of cholecystectomy Family History Mother Diabetes Coronary heart disease Myocardial infarction S/P CABG x 3 Hypertension Gallbladder disease Sister Hodgkins lymphoma Brother Kidney disease Grandmother Breast cancer Aunt Ovarian cancer Father Peripheral vascular disease Daughter Diabetes Other Cancer No family history of adverse response to anesthesia Denies family history of Prostate cancer Colorectal cancer Social History Smoking Status: Former smoker Tobacco Type: Cigarettes Age Started Using Tobacco: 22; Age Quit Using Tobacco: 24; packs per day: 1; Second Hand Exposure: No; Do You Dip or Chew Tobacco: No; Hx Alcohol Use: No Hx Substance Use: No Preferred Language: Estonian 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 Ability: Effective Visual Impairment: Limited Hearing Ability: Normal 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 Beliefs That Will Affect Care: None marital status: marital status details: ; lives with parents & 1 daughter Current Living Situation: Alone Current Living Situation Comment: Lives with mother and daughter current occupational status: disabled other: 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 b/l lower extremity edema & cellulitis. Skin: 2-3+ edema the bilateral LE. left >right erythema through the mid calf. Weeping clear serous fluid in the b/l legs with mild skin breakdown. More chronic appearing about cm b/l midfoot ulcers as well as chronic area the base of the first toe on the plantar aspect of just over cm chronic wound. The left 3rd toe is red and macerated with what appears to be a bit of exposed blackish brown bone at the tip. Psychiatric: A+Ox3, euthymic affect Results & Data Results & Data Vital Signs (Past 12 Hours) Vital Signs Temp Pulse Pulse Resp BP BP Pulse Ox 07/23/24 16:33 84 20 100 07/23/24 16:27 85 23 100 07/23/24 16:05 118/69 07/23/24 16:00 88 21 07/23/24 15:30 80 18 134/68 99 07/23/24 15:27 85 07/23/24 15:04 85 19 126/67 99 07/23/24 14:41 36.5 C 89 18 125/82 99 O2 Del Method 07/23/24 16:33 Room Air 07/23/24 16:27 Room Air 07/23/24 16:05 07/23/24 16:00 07/23/24 15:30 Room Air 07/23/24 15:27 07/23/24 15:04 Room Air 07/23/24 14:41 Room Air Supervising Physician Co-Signing Physician Notes The patient was seen by me. The left third toe appears gangrenous. She has been placed on intravenous clindamycin and cefepime. Surgical amputation will probably be necessary. Podiatry consultation has been requested. Case discussed with CLAUDIA Jarquin. Agree with assessment and plan PG Care Time/CCT Total # of Minutes Spent Total Time Spent with Patient: Total time spent is greater than 50% in coordination of care (as documented) at patient's floor/unit and/or counseling patient: Coding Level of Care Code 77532 INT INP/OBS CARE 3/75MIN Diagnoses Cellulitis of both lower extremities L03.115; L03.116 Toe gangrene I96 Acute on chronic heart failure with preserved ejection fraction I50.33 CKD (chronic kidney disease) stage 3, GFR 30-59 ml/min N18.31 Chronic kidney disease stage 3 subtype: stage 3a (GFR 45-59) Diabetes mellitus, type 2 E11.9 (4) CKD (chronic kidney disease) stage 3, GFR 30-59 ml/min Chronic kidney disease stage 3 subtype: stage 3a (GFR 45-59) Qualified Code(s): N18.31 - Chronic kidney disease, stage 3a
[2024-07-23] MEDS: CLINDAMYCIN/D5W 600 MG/50 ML BAG IV ONE (17:44)
[2024-07-23] MEDS: BUMETANIDE 2 MG in SYRINGE 0 ML IV ONE (17:44)
[2024-07-23] MEDS ORDERED: ALBUTEROL HFA 8 GM INHALER INH PRN (19:36)
[2024-07-23] MEDS: CHOLECALCIFEROL 25 MCG (1000 UNITS) TAB PO SCH (21:20)
[2024-07-23] MEDS: NYSTATIN OINT 15 GM TUBE EXT SCH (21:20)
[2024-07-23] MEDS: traMADol HCL 50 MG TABLET PO PRN (21:21)
[2024-07-23] MEDS: CETIRIZINE HCL 10 MG TABLET PO SCH (21:21)
[2024-07-23] MEDS: PANTOprazole 40 MG TAB PO SCH (21:21)
[2024-07-23] MEDS: busPIRone 5 MG TAB PO SCH (21:21)
[2024-07-23] MEDS: GABAPENTIN 400 MG CAP PO SCH (21:21)
[2024-07-23] MEDS: allopurinoL 100 MG TAB PO SCH (21:21)
[2024-07-23] MEDS: FAMOTIDINE 20 MG TAB PO SCH (21:21)
[2024-07-23] MEDS: hydrOXYzine HCl 25 MG TAB PO SCH (21:21)
[2024-07-23] MEDS: SPIRONOLACTONE 25 MG TAB PO SCH (21:21)
[2024-07-23] MEDS: DULoxetine HCL 60 MG CAP PO SCH (21:21)
[2024-07-23] MEDS: MONTELUKAST SODIUM 10 MG TABLET PO SCH (21:21)
[2024-07-23] MEDS: GADOBUTROL 15ML VIAL IV ONE (23:48)
[2024-07-24] MEDS: ACETAMINOPHEN 500 MG TAB PO PRN (00:14)
--- NOTE | 2024-07-24 01:07 | Magnetic Resonance Report ---
Exam(s): MRI LEFT FOOT W/WO Contrast IV Amt: GADAVIST 15CC EXAM: MR Left Lower Extremity Without and With Intravenous Contrast, Foot CLINICAL HISTORY: gangrene left third toe, concern osteomyelitis. TECHNIQUE: Multiplanar magnetic resonance images of the left foot without and with intravenous contrast. CONTRAST: Patient received GADAVIST 15CC of IV contrast COMPARISON: No relevant prior studies available. FINDINGS: Bones/joints: Erosions and edema of the distal third phalanx are present. There is also edema of the distal first phalanx. Soft tissues: There is nonspecific subcutaneous edema. No organized fluid collection to suggest abscess. IMPRESSION: 1. Erosions and edema of the distal third phalanx are present. There is also edema of the distal first phalanx. These findings are consistent with osteomyelitis. 2. There is nonspecific subcutaneous edema. No organized fluid collection to suggest abscess. Electronically signed by: Francheska Lux MD 07/24/24 01:06 AM
[2024-07-24] MEDS: CLINDAMYCIN/D5W 600 MG/50 ML BAG IV SCH (01:57)
[2024-07-24] MEDS: CEFEPIME 2000MG 2,000 MG/20 ML SYR IV SCH (04:31)
[2024-07-24] MEDS: PERFLUTREN LIPID MICROSPHERE (DEFINITY) IV ONE (07:43)
[2024-07-24] MEDS: ASPIRIN 81 MG ECTAB PO SCH (07:56)
[2024-07-24] MEDS: CYANOCOBALAMIN (B-12) 500 MCG TABLET PO SCH (07:57)
[2024-07-24] MEDS: buPROPion XL 150 MG TABCR PO SCH (07:57)
[2024-07-24] MEDS: MULTIVITAMIN TAB PO SCH (07:58)
[2024-07-24] MEDS: CALCIUM CARBONATE 500 MG CHEWABLE TAB PO SCH (07:58)
[2024-07-24] MEDS: LOSARTAN POTASSIUM 25 MG TAB PO SCH (07:58)
[2024-07-24] MEDS: METOPROLOL SUCC 25MG EXT REL TAB PO SCH (07:59)
[2024-07-24] MEDS: BUMETANIDE 2 MG in SYRINGE 0 ML IV SCH (08:00)
[2024-07-24] MEDS: FLUTICASONE/VILANTEROL 100/25MCG 14 PUFFS/INHALER INH SCH (08:01)
[2024-07-24 08:03] LABS: Basophils # (auto) 0.03 K/uL (0.00-0.20); Basophils % (auto) 0.3 %; Eosinophils # (auto) 0.41 K/uL (0.00-0.50); Eosinophils % (auto) 3.9 %; Hematocrit (blood only) 36.8 % (37.0-47.0); Hemoglobin 11.7 g/dl (12.0-16.0); Immature Granulocytes # (auto) 0.03 K/uL (0.01-0.20); Immature Granulocytes % (auto) 0.3 %; Lymphocytes # (auto) 2.08 K/uL (1.20-3.40); Lymphocytes % (auto) 19.5 %; Mean Corpuscular Hemoglobin 25.1 pg (25.0-34.0); Mean Corpuscular Hgb Conc 31.8 g/dL (32.0-36.0); Mean Platelet Volume 9.5 fL (9.4-12.4); Monocytes # (auto) 0.78 K/uL (0.11-0.59); Monocytes % (auto) 7.3 %; Neutrophils # (auto) 7.31 K/uL (1.40-6.50); Neutrophils % (auto) 68.7 %; Platelet Count 380 K/uL (130-400); RDW Coefficient of Variation 15.1 % (11.5-14.5); RDW Standard Deviation 42.9 fL (36.4-46.3); Red Blood Count 4.66 M/uL (4.20-5.40); White Blood Count 10.64 K/ul (4.8-10.8)
[2024-07-24 08:16] LABS: BUN Creatinine Ratio 8.6 (10-20); C Reactive Protein 10.69 mg/dl (0-0.5); Calcium 8.7 mg/dl (8.6-10.3); Creatinine Clr Calc Pharmacy 70.2 ml/min; Potassium 4.2 mmol/L (3.5-5.1)
[2024-07-24] MEDS: POTASSIUM CHLORIDE CRTAB 20 MEQ TABCR PO SCH (08:49)
--- NOTE | 2024-07-24 13:52 | Hospitalist Progress Note ---
Date of Service July 24, 2024 Assessment & Plan (1) Cellulitis of both lower extremities: (2) Toe gangrene: (3) Acute on chronic heart failure with preserved ejection fraction: (4) CKD (chronic kidney disease) stage 3, GFR 30-59 ml/min: (5) Diabetes mellitus, type 2: (6) Perforated ear drum: Plan This is a 63 year old female with past medical history of arthritis, allergic rhinitis, gout, CHF, Type 2 DM, CKD, asthma who presented to the ED on 07/23 with a complaint of lower extremity edema and foot wound. #B/L LE cellulitis/gangrene left third toe Patient w/ new wound on left third toe ~3 days TANK CHARGER. 1 week of chills. Patient w/ chronic lower extremity wounds, follows w/ outpatient wound clinic. Has noticed worsening seepage and edema of LE along w/ left foot pain. On PE patient appears to have LE cellulitis on both extremities, L worse than R w/ a 3rd toe wound w/ what appears to be down to the bone. Left foot XR: acute vs chronic osteomyelitis of tuft of third distal phalanx w/ overlying skin ulceration. generalized swelling w/ soft tissue gas collection & lateral to base of 5th metatarsal. abscess not excluded. CBC w/o leukocytosis. CRP 10.69, ESR 86, procal 0.06 Left Foot MRI 07/23: erosions & edema of distal 3rd phalanx present. edema of distal 1st phalanx. consistent w/ osteomyelitis. nonspecific subcutaneous edema. no organized fluid collection to suggest abscess. Prelim wound culture of left 3rd toe: staph aureus & proteus mirabilis s/p IV Cefepime, Flagyl, Clindamycin in the ED. Continue Cefepime & Clindamycin upon admission. Continue Allopurinol (hx of gout) BC pending Podiatry consulted discussed via tiger text 07/24 --> plan for left third toe amputation & other wound debridement. Date of operation TBD. NPO after midnight incase it is 07/25. Wound nurse consulted, appreciate recommendations. AM CBC, BMP, Procal, CRP, ESR #Acute on chronic heart failure Patient reportedly been off her bumex for ~ 1 month due to weight loss. Follows w/ CHF clinic outpatient. EKG on admission normal sinus rhythm Last Echo 08/2023: EF 65-70%. dilated RV w/ nl systolic function. no change from previous (2022) Slight increase of creatinine to 1.28 (within baseline) Update Echo pending CXR negative s/p 2mg IV Bumex x2 --> transition to Bumex 2mg PO once daily starting 07/25 Continue spironolactone 25mg BID, Metoprolol 25mg daily. #Perforated left ear drum patient reportedly was using q tip to clean ear a few days ago and had pain followed by blood drainage Otoscope eval shows bloody drainage, no signs of infection but perforated left tympanic membrane Cefepime should cover if infection. Follow up w/ ENT outpatient if still painful at end of discharge, supportive care in meantime. #Type 2 DM On Jardiance outpatient, hold while inpatient. A1c 01/2024 5.6% BG 103 on admission, hold sliding scale insulin but check BG frequently and add insulin if necessary. Continue gabapentin for neuropathy #CKD stage 3 Baseline creatinine 1.2-1.5 Creatinine @ baseline 1.28 Electrolytes stable, continue potassium supplement daily AM BMP Chronic conditions: Asthma/allergic rhinitis: Albuterol prn, Cetirizine, Montelukast Mental health: bupropion, buspirone, Duloxetine, Hydroxyzine GERD: Pepcid, PPI DVT prophylaxis: hold pending podiatry eval in event patient would require surgery. Code: full Discussed w/ podiatry 07/24. Admission and Anticipated Discharge Date Admission Date: July 23, 2024 Subjective Patient seen and examined this morning. Patient complaining of left foot pain and left ear pain. Reports her foot pain has not improved since her admission. Patient also reports that a few days ago she was cleaning her ears with a q tip and she had some pain followed by bloody discharge from her ear. She denies any CP or SOB. Reports that she has been urinating a lot since recieving the Bumex. Physical Exam Constitutional: WD/WN, vitals as above Eyes: PERRL, conjunctivae normal, anicteric sclerae ENMT: perforated left tympanic membrane. Bloody drainage. no pus visualized Respiratory: normal respiratory effort, lungs clear to auscultation Cardiovascular: RRR. No murmur. b/l LE edema & erythema. Legs wrapped Psychiatric: A+Ox3, euthymic affect Results & Data Results & Data Vital Signs (Past 12 Hours) Vital Signs Temp Pulse Pulse Resp BP Pulse Ox O2 Del Method 07/24/24 11:45 36.5 C 71 16 109/68 97 Room Air 07/24/24 08:05 36.3 C L 82 16 116/73 97 Room Air 07/24/24 07:14 71 07/24/24 03:11 36.8 C 74 16 111/68 95 Room Air PG Care Time/CCT Total # of Minutes Spent Total Time Spent with Patient: Total time spent is greater than 50% in coordination of care (as documented) at patient's floor/unit and/or counseling patient: Coding Level of Care Code 35035 SUB INP/OBS CARE 350MIN Diagnoses Cellulitis of both lower extremities L03.115; L03.116 Toe gangrene I96 Acute on chronic heart failure with preserved ejection fraction I50.33 CKD (chronic kidney disease) stage 3, GFR 30-59 ml/min N18.31 Chronic kidney disease stage 3 subtype: stage 3a (GFR 45-59) Diabetes mellitus, type 2 E11.9 Perforated ear drum H72.90 (4) CKD (chronic kidney disease) stage 3, GFR 30-59 ml/min Chronic kidney disease stage 3 subtype: stage 3a (GFR 45-59) Qualified Code(s): N18.31 - Chronic kidney disease, stage 3a
--- NOTE | 2024-07-24 18:57 | XCELERA ---
[id number]
--- NOTE | 2024-07-24 20:54 | Podiatry Consultation ---
Date of Consultation July 24, 2024 Assessment & Plan (1) Acute osteomyelitis of toe of left foot: (2) Diabetic infection of left foot: (3) Toe gangrene: (4) Cellulitis of both lower extremities: (5) Diabetic foot ulcer: Diabetic foot ulcer location: midfoot Diabetes mellitus type: type 2 Laterality: unspecified laterality Non-pressure ulcer stage: with fat layer exposed Qualified Code(s): E11.621 - Type 2 diabetes mellitus with foot ulcer; L97.402 - Non-pressure chronic ulcer of unspecified heel and midfoot with fat layer exposed (6) Chronic ulcer of left foot with fat layer exposed: (7) Chronic ulcer of right foot with fat layer exposed: Plan Patient examined and evaluated. - Ulceration examined, redressed. Clinical evidence of osteomyelitis, confirmed on MR imaging. - Will require amputation and will work on adding this on this week, likely tomorrow. - Will debride b/l foot ulcerations concurrently to help encourage healing and take pathology/cultures as needed. - Patient is amenable to this. - Thank you for the consult. Will plan NPO as surgery is scheduled. History of Present Illness Reason for Consultation: Left third toe osteomyelitis; b/l foot ulcerations Attending Physician: Naveed Dorantes History of Present Illness Patient seen at bedside at lunchtime. She states that for the last three days she has had worsening ulceration to the third toe that has progressed rapidly. This is what led her to seek treatment at the ED. She is under [facility] care for plantar midfoot ulcerations, stemming back over a year now. She believes these are improving, but are still present. She has been treated by the [facility] and has had them evaluated by us, here, on an admission last year. Now, with the toe worsening so quickly, she was concerned about her infection status overall. Denies any systemic signs of infection and is feeling good on IV antibiotics for now. Allergies Allergy/AdvReac Type Severity Reaction Status Date / Time Corticosteroids Allergy Severe Anaphylaxis Unverified 07/23/24 17:40 (Glucocorticoids) dog dander Allergy Intermediate Rash Verified 07/23/24 17:40 morphine Allergy Intermediate mouth and Verified 07/23/24 17:40 face swells Penicillins Allergy Intermediate rash/hives Verified 07/23/24 17:40 adhesive Allergy Mild Skin rash Verified 07/23/24 17:40 localized zolpidem Allergy Unknown Unknown Verified 07/23/24 17:40 pregabalin AdvReac Intermediate "makes Verified 07/23/24 17:40 goofy" Home Medications Medication Instructions Recorded Confirmed Type cholecalciferol (vitamin D3) 50 2,000 unit PO TID #270 caps 07/18/21 07/23/24 Rx mcg (2,000 unit) capsule (Vitamin D3) calcium carbonate (Tums) 900 mg PO QAM 03/03/22 07/23/24 History cyanocobalamin (vitamin B-12) 1,000 mcg PO QAM 03/03/22 07/23/24 History 1,000 mcg tablet (Vitamin B-12) albuterol sulfate 2.5 mg/3 mL 2.5 mg (3 mL) inhalation Q6H PRN 06/25/23 07/23/24 Rx (0.083 %) solution for nebulization Shortness Of Breath #90 mL aspirin 81 mg tablet,delayed 81 mg PO QAM 06/25/23 07/23/24 History release duloxetine 60 mg capsule,delayed 60 mg PO BID 06/25/23 07/23/24 History release (Cymbalta) diclofenac sodium 1 % topical gel 4 g EXT QID #1 tube 08/30/23 07/23/24 Rx (Voltaren Arthritis Pain) nystatin 100,000 unit/gram topical 1 applic topical TID PRN yeast 08/30/23 07/23/24 Rx powder rash under breasts, abdominal skin folds #30 grams CPAP Supplies #1 ea 09/28/23 06/09/24 Rx CPAP Machine #1 ea 09/29/23 06/09/24 Rx buspirone 15 mg tablet 15 mg PO TID 10/20/23 07/23/24 History cetirizine 10 mg tablet (Zyrtec) 10 mg PO BID 10/20/23 07/23/24 History empagliflozin 10 mg tablet 10 mg PO QAM #90 tabs 12/02/23 07/23/24 Rx (Jardiance) hydroxyzine HCl 25 mg tablet 25 mg PO HS 12/24/23 07/23/24 History potassium chloride 20 mEq 20 meq PO QAM 12/24/23 07/23/24 History tablet,extended release(part/cryst) (Klor-Con M) montelukast 10 mg tablet 10 mg PO QPM #90 tabs 01/03/24 07/23/24 Rx (Singulair) albuterol sulfate 90 mcg/actuation 2 puff inhalation Q4H PRN 01/04/24 07/23/24 Rx aerosol inhaler (Ventolin HFA) Shortness Of Breath Or Wheezing #18 grams epinephrine 0.3 mg/0.3 mL 0.3 mg IM UD PRN anaphylaxis 01/06/24 07/23/24 History injection, auto-injector famotidine 20 mg tablet (Pepcid) 20 mg PO HS #90 tabs 01/10/24 07/23/24 Rx acetaminophen 500 mg tablet 1,000 mg (2 x 500 mg) PO TID PRN 02/04/24 07/23/24 Rx fever or pain #90 tabs allopurinol 100 mg tablet 100 mg PO BID #180 tabs 03/17/24 07/23/24 Rx pantoprazole 40 mg tablet,delayed 40 mg PO BID #90 tabs 05/31/24 07/23/24 Rx release (Protonix) bupropion HCl 150 mg 24 hr tablet, 150 mg PO QAM #90 tabs 06/08/24 07/23/24 Rx extended release bumetanide 1 mg tablet 0 mg PO BID 06/09/24 07/23/24 History gabapentin 400 mg capsule 400 mg PO QID #360 caps 06/30/24 07/23/24 Rx losartan 25 mg tablet 25 mg PO QAM 07/23/24 07/23/24 History nystatin 100,000 unit/gram topical 1 applic EXT TID PRN FLARE 07/23/24 07/23/24 History ointment multivitamin 1 tab PO QAM #90 tabs 07/24/24 Rx Patient History Medical History Abdominal wall cellulitis Hypokalemia Mast cell disease B-cell lymphoma Hx-TIA (transient ischemic attack) 2016 > ASA for prevention > no residual effects Hx of sepsis 09/2021 r/t left knee infection Hypertension Lumbar spinal stenosis Arthritis Allergic rhinitis Gout Other ovarian cyst, left side present, just monitoring Acid reflux Severe obstructive sleep apnea cpap Stage 3 chronic kidney disease follows with Dr. Wood Fatty liver CHF (congestive heart failure) follows with [facility] Solitary kidney, congenital Diabetes mellitus, type 2 Ulcer of foot one ulcer present to bottom of bilat feet > follows with wound clinic at [place], improving per pt Chronic ulcer of right foot with fat layer exposed sees wound clinic > bilat feet at present History of COVID-19 09/2021 Iron deficiency anemia Venous stasis of both lower extremities MDD (major depressive disorder), recurrent episode, moderate Ambulatory dysfunction uses walker Depression with anxiety Degenerative joint disease, shoulder, right Lymphedema left leg and abdomen / chronic Asthma well controlled, rare res inh use Hyperlipidemia no meds Surgical History Hx of biopsy (12/29/23) Left Neck Lymph Node Biopsy(Left) - Yohan Maldonado, DO, FACS History of insertion of central venous access port removed in 2022 History of revision of total replacement of left knee joint History of cardiac cath remote hx over 20 yrs ago, no stents History of colonoscopy History of esophagogastroduodenoscopy (EGD) History of bilateral knee replacement (10/16/22) H/O knee surgery (12/2021) L knee washout w/ polyexchange S/P tonsillectomy and adenoidectomy Status post total shoulder arthroplasty (10/17/18) right History of carpal tunnel release B/L H/O ventral hernia repair History of appendectomy History of cholecystectomy Family History Mother Diabetes Coronary heart disease Myocardial infarction S/P CABG x 3 Hypertension Gallbladder disease Sister Hodgkins lymphoma Brother Kidney disease Grandmother Breast cancer Aunt Ovarian cancer Father , 02/11/20. Peripheral vascular disease Daughter Diabetes Other Cancer No family history of adverse response to anesthesia Denies family history of Prostate cancer Colorectal cancer Social History Smoking Status: Former smoker Tobacco Type: Cigarettes Age Started Using Tobacco: 22; Age Quit Using Tobacco: 24; packs per day: 1; Second Hand Exposure: No; Do You Dip or Chew Tobacco: No; Hx Alcohol Use: No Hx Substance Use: No Preferred Language: Azerbaijani 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 Ability: Effective Visual Impairment: Limited Hearing Ability: Normal Peer Educator Required: No Beliefs That Will Affect Care: None marital status: marital status details: ; lives with parents & 1 daughter Current Living Situation: Family Current Living Situation Comment: Lives with mother & daughter current occupational status: disabled other: 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 [employer]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; 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 Feels Safe at Home: Yes Childhood Exposure to Second-Hand Smoke: No Diet: regular Diet Comment: regular caffeine: No Dental Care, Regularly: No Physical Activity Frequency: Does not Exercise Seatbelt Use: always Sunscreen Use: Yes Assistive Devices: CPAP, Glasses and Walker Review of Systems Review of Systems: All systems reviewed & are unremarkable except as noted in HPI & below Constitutional: no fever, no chills and no fatigue Eyes: no problem reported Ear, Nose, Mouth, Throat: no problem reported Respiratory: no problem reported Cardiovascular: + edema; no problem reported Gastrointestinal: no nausea, no vomiting and no problem reported Genitourinary: no problem reported Musculoskeletal: no problem reported Integumentary: + skin ulcer, + wounds and + erythema Neurologic: + loss of sensation, + numbness and + pa resthesia; no generalized weakness Psychiatric: no problem reported Physical Exam Physical Exam: Lower extremity focused exam: DP/PT pulses faintly palpable. CFT brisk to toes. Left third toe ulcerated at distal phalanx with distal phalanx immediately palpable. Purulent drainage is noted; digit is erythematous without ascending lymphangitis/cellulitis. This ulcer has no base other than the palpable bone. Ulcers are noted to the bilateal styloid process, measuring 1.8 cm in diameter each with a 100% granular wound bed. No deep probing to bone noted here on clinical exam. No evidence of local infection noted to these wounds. No pain on palpation of proximal wounds; pain is noted on probing of third toe osteomyelitis. Protective sensation is absent. Constitutional: WD/WN, vitals as above + ill appearing and + morbidly obese Eyes: PERRL, conjunctivae normal, anicteric sclerae ENMT: external ear and nose normal, oropharynx normal Mouth: + edentulous and + poor dentition Neck: trachea midline, no thyromegaly normal visual inspection Respiratory: normal respiratory effort; no respiratory distress Cardiovascular: Rate/Rhythm: regular rate and regular rhythm Vessels: posterior tibial pulses present and dorsalis pedis pulses present Extremities: normal capillary refill, + pedal edema and + edema; no calf tenderness Chest (Breasts): Chest: normal inspection of chest Gastrointestinal (Abdomen): Inspection/Auscultation: abdomen normal to inspection Percussion/Palpation: + abdomen tender and abdomen soft Musculoskeletal: no cyanosis or clubbing, extremities motor strength 5/5 Head/Neck/Chest: normocephalic and head atraumatic Extremities: extremities normal to inspection and + limited ROM of extremities Skin: + ulcer, + wound, + skin atrophy and + n ails dystrophic Neurologic: awake; no focal motor deficits Psychiatric: A+Ox3, euthymic affect Results & Data Vital Signs (Past 12 Hours) Vital Signs Temp Pulse Pulse Resp BP Pulse Ox O2 Del Method 07/24/24 19:29 36.4 C L 84 18 107/71 98 Room Air 07/24/24 15:50 36.5 C 62 16 129/72 95 Room Air 07/24/24 14:54 77 07/24/24 11:45 36.5 C 71 16 109/68 97 Room Air
--- NOTE | 2024-07-25 06:23 | Electrocardiogram Report ---
Test Reason : Blood Pressure : */* mmHG Vent. Rate : 81 BPM Atrial Rate : 81 BPM P-R Int : 168 ms QRS Dur : 94 ms QT Int : 398 ms P-R-T Axes : 44 -16 31 degrees QTcB Int : 462 ms Normal sinus rhythm Anteroseptal infarct (cited on or before 01-Oct-2017) Possible Inferior infarct Abnormal ECG When compared with ECG of 20-Feb-2024 02:49, No significant change Confirmed by Jai Watkins ([id number]) on 07/25/2024 6:23:29 AM Referred By: REFERRED SELF Confirmed By: Jai Watkins
[2024-07-25 07:32] LABS: Hematocrit (blood only) 35.8 % (37.0-47.0); Hemoglobin 11.3 g/dl (12.0-16.0); Mean Corpuscular Hemoglobin 24.5 pg (25.0-34.0); Mean Corpuscular Hgb Conc 31.6 g/dL (32.0-36.0); Mean Corpuscular Volume 77.5 fL (80.0-100.0); Mean Platelet Volume 9.8 fL (9.4-12.4); Platelet Count 377 K/uL (130-400); RDW Standard Deviation 42.1 fL (36.4-46.3); Red Blood Count 4.62 M/uL (4.20-5.40); White Blood Count 8.44 K/ul (4.8-10.8)
[2024-07-25 07:39] LABS: BUN Creatinine Ratio 10.1 (10-20); C Reactive Protein 9.06 mg/dl (0-0.5); Calcium 8.5 mg/dl (8.6-10.3); Creatinine Clr Calc Pharmacy 75.1 ml/min; Potassium 3.9 mmol/L (3.5-5.1)
[2024-07-25] MEDS: BUMETANIDE 1 MG TAB PO SCH (09:38)
--- NOTE | 2024-07-25 14:13 | History & Physical Bridge Note ---
Date of Service July 25, 2024 History & Physical Bridge Note I have examined the patient, reviewed the History & Physical and in the interval since the performance of the History & Physical I have noted the following changes of clinical significance: no changes noted. Plan for left third toe amputation and bilateral ulcer debridement. Discussed procedure in detail, including relative risks, outcomes, instructions, and benefits. Will obtain written consent at bedside preoperatively. All questions answered.
[2024-07-25] MEDS ORDERED: LIDOCAINE 2% 2 ML VIAL/AMP(20MG/ML) INFIL ONE (15:14)
[2024-07-25] MEDS ORDERED: fentaNYL citrate PF 100 MCG/2 ML VIAL ONE (15:14)
[2024-07-25] MEDS ORDERED: ONDANSETRON INJ 2 MG/ML 2 ML VIAL ONE (15:14)
[2024-07-25] MEDS ORDERED: MIDAZOLAM HCL 1 MG/ML 2ML VIAL ONE (15:14)
[2024-07-25] MEDS ORDERED: PROPOFOL IV EMULSION 10 MG/ML 20 ML VIAL IV ONE (15:14)
[2024-07-25] MEDS ORDERED: GLYCOPYRROLATE 0.2 MG/ML VIAL ONE (15:16)
[2024-07-25] MEDS ORDERED: fentaNYL citrate PF 100 MCG/2 ML VIAL IV PRN (15:19)
[2024-07-25] MEDS ORDERED: ATROPINE SULFATE 0.1 MG/ML 10ML SYR IV PRN (15:19)
[2024-07-25] MEDS ORDERED: ONDANSETRON INJ 2 MG/ML 2 ML VIAL IV PRN (15:19)
[2024-07-25] MEDS ORDERED: ePHEDrine sulfate 50 MG/ML AMP IV PRN (15:19)
--- NOTE | 2024-07-25 15:19 | Anesthesiology Consultation ---
Date of Service July 25, 2024 Assessment & Plan (1) Encounter for pre-operative examination: Chart Review Chart Review: Acceptable Risk for Surgery and Patient NOT seen in Pre Admission Testing Consults Requested none History Surgery Operation Date: 07/25/24 07:00 Proposed Procedures p Left Third Toe Amputation - Dougie Kumar DPM s Bilateral Foot Ulcer Debridement - Dougie Kumar DPM Height/Weight Height: 5 ft 9 in Weight: 140.4 kg Allergies Allergy/AdvReac Type Severity Reaction Status Date / Time Corticosteroids Allergy Severe Anaphylaxis Unverified 07/23/24 17:40 (Glucocorticoids) dog dander Allergy Intermediate Rash Verified 07/23/24 17:40 morphine Allergy Intermediate mouth and Verified 07/23/24 17:40 face swells Penicillins Allergy Intermediate rash/hives Verified 07/23/24 17:40 adhesive Allergy Mild Skin rash Verified 07/23/24 17:40 localized zolpidem Allergy Unknown Unknown Verified 07/23/24 17:40 pregabalin AdvReac Intermediate "makes Verified 07/23/24 17:40 goofy" Medications Home Medications Medication Instructions Recorded Confirmed Last Taken cholecalciferol (vitamin D3) 50 2,000 unit PO TID #270 caps 07/18/21 07/23/24 07/23/24 mcg (2,000 unit) capsule (Vitamin D3) calcium carbonate (Tums) 900 mg PO QAM 03/03/22 07/23/24 07/23/24 cyanocobalamin (vitamin B-12) 1,000 mcg PO QAM 03/03/22 07/23/24 07/23/24 1,000 mcg tablet (Vitamin B-12) albuterol sulfate 2.5 mg/3 mL 2.5 mg (3 mL) inhalation Q6H PRN 06/25/23 07/23/24 Unknown (0.083 %) solution for nebulization Shortness Of Breath #90 mL aspirin 81 mg tablet,delayed 81 mg PO QAM 06/25/23 07/23/24 07/23/24 release duloxetine 60 mg capsule,delayed 60 mg PO BID 06/25/23 07/23/24 07/23/24 release (Cymbalta) diclofenac sodium 1 % topical gel 4 g EXT QID #1 tube 08/30/23 07/23/24 07/23/24 (Voltaren Arthritis Pain) nystatin 100,000 unit/gram topical 1 applic topical TID PRN yeast 08/30/23 07/23/24 12/28/23 powder rash under breasts, abdominal skin folds #30 grams CPAP Supplies #1 ea 09/28/23 06/09/24 Unknown CPAP Machine #1 ea 09/29/23 06/09/24 Unknown buspirone 15 mg tablet 15 mg PO TID 10/20/23 07/23/24 07/23/24 cetirizine 10 mg tablet (Zyrtec) 10 mg PO BID 10/20/23 07/23/24 07/23/24 empagliflozin 10 mg tablet 10 mg PO QAM #90 tabs 12/02/23 07/23/24 07/23/24 (Jardiance) hydroxyzine HCl 25 mg tablet 25 mg PO HS 12/24/23 07/23/24 07/22/24 potassium chloride 20 mEq 20 meq PO QAM 12/24/23 07/23/24 07/23/24 tablet,extended release(part/cryst) (Klor-Con M) montelukast 10 mg tablet 10 mg PO QPM #90 tabs 01/03/24 07/23/24 07/22/24 (Singulair) albuterol sulfate 90 mcg/actuation 2 puff inhalation Q4H PRN 01/04/24 07/23/24 Unknown aerosol inhaler (Ventolin HFA) Shortness Of Breath Or Wheezing #18 grams epinephrine 0.3 mg/0.3 mL 0.3 mg IM UD PRN anaphylaxis 01/06/24 07/23/24 Unknown injection, auto-injector famotidine 20 mg tablet (Pepcid) 20 mg PO HS #90 tabs 01/10/24 07/23/24 07/22/24 acetaminophen 500 mg tablet 1,000 mg (2 x 500 mg) PO TID PRN 02/04/24 07/23/24 12/28/23 00:00 fever or pain #90 tabs allopurinol 100 mg tablet 100 mg PO BID #180 tabs 03/17/24 07/23/24 07/23/24 pantoprazole 40 mg tablet,delayed 40 mg PO BID #90 tabs 05/31/24 07/23/24 07/23/24 release (Protonix) bupropion HCl 150 mg 24 hr tablet, 150 mg PO QAM #90 tabs 06/08/24 07/23/24 07/23/24 extended release bumetanide 1 mg tablet 0 mg PO BID 06/09/24 07/23/24 07/23/24 gabapentin 400 mg capsule 400 mg PO QID #360 caps 06/30/24 07/23/24 07/23/24 losartan 25 mg tablet 25 mg PO QAM 07/23/24 07/23/24 07/23/24 nystatin 100,000 unit/gram topical 1 applic EXT TID PRN FLARE 07/23/24 07/23/24 Unknown ointment multivitamin 1 tab PO QAM #90 tabs 07/24/24 Unknown Active Medications Generic Name Dose Route Start Last Admin Trade Name Freq PRN Reason Stop Dose Admin Acetaminophen 1,000 mg 07/23/24 19:36 07/24/24 00:14 Acetaminophen 500 Mg Tab PO 08/22/24 19:35 1,000 mg TID PRN Administration fever or pain Allopurinol 100 mg 07/23/24 21:00 07/25/24 09:37 Allopurinol 100 Mg Tab PO 08/22/24 20:59 Not Given BID LEOBARDO Aspirin 81 mg 07/24/24 09:00 07/25/24 09:37 Aspirin 81 Mg Ectab PO 08/23/24 08:59 Not Given QAM [facility] Bumetanide 2 mg 07/25/24 09:00 07/25/24 09:38 Bumetanide 1 Mg Tab PO 08/24/24 08:59 Not Given QAM [facility] Bupropion HCl 150 mg 07/24/24 09:00 07/25/24 09:38 Bupropion Xl 150 Mg Tabcr PO 08/23/24 08:59 Not Given QAM [facility] Buspirone HCl 20 mg 07/23/24 21:00 07/25/24 13:46 Buspirone 5 Mg Tab PO 08/22/24 20:59 Not Given TID LEOBARDO Calcium Carbonate 1,000 mg 07/24/24 09:00 07/25/24 09:38 Calcium Carbonate 500 Mg Chewable Tab PO 08/23/24 08:59 Not Given QAM [facility] Cetirizine HCl 10 mg 07/23/24 21:00 07/25/24 09:38 Cetirizine Hcl 10 Mg Tablet PO 08/22/24 20:59 Not Given BID LEOBARDO Cyanocobalamin 1,000 mcg 07/24/24 09:00 07/25/24 09:38 Cyanocobalamin (B-12) 500 Mcg Tablet PO 08/23/24 08:59 Not Given QAM LEOBRADO Duloxetine HCl 60 mg 07/23/24 21:00 07/25/24 09:38 Duloxetine Hcl 60 Mg Cap PO 08/22/24 20:59 Not Given BID LEOBARDO Famotidine 20 mg 07/23/24 21:00 07/24/24 21:32 Famotidine 20 Mg Tab PO 08/22/24 20:59 20 mg HS LEOBARDO Administration Fluticasone/Vilanterol 1 puffs 07/24/24 09:00 07/25/24 09:38 Fluticasone/Vilanterol 100/25mcg 14 Puffs/Inhaler INH 08/23/24 08:59 Not Given DAILY LEOBARDO Gabapentin 400 mg 07/23/24 21:00 07/25/24 13:27 Gabapentin 400 Mg Cap PO 08/22/24 20:59 Not Given QID LEOBARDO Hydroxyzine HCl 25 mg 07/23/24 21:00 07/24/24 21:30 Hydroxyzine Hcl 25 Mg Tab PO 08/22/24 20:59 25 mg HS LEOBARDO Administration Cefepime HCl 2,000 mg in 20 mls @ 5 mls/min 07/24/24 04:00 07/25/24 04:39 Maxipime 2000mg IV 07/31/24 03:59 5 mls/min Q12H LEOBARDO Administration Protocol Clindamycin Phosphate 600 mg in 50 mls @ 100 mls/hr 07/24/24 02:00 07/25/24 13:45 Cleocin/D5w IV 07/31/24 01:59 Infused Q8H LEOBARDO Infusion Losartan Potassium 25 mg 07/24/24 09:00 07/25/24 09:39 Losartan Potassium 25 Mg Tab PO 08/23/24 08:59 Not Given QAM LEOBARDO Metoprolol Succinate 25 mg 07/24/24 09:00 07/25/24 09:39 Metoprolol Succ 25mg Ext Rel Tab PO 08/23/24 08:59 Not Given DAILY LEOBARDO Montelukast Sodium 10 mg 07/23/24 21:00 07/24/24 21:26 Montelukast Sodium 10 Mg Tablet PO 08/22/24 20:59 10 mg QPM LEOBARDO Administration Multivitamins 1 tab 07/24/24 09:00 07/25/24 09:39 Multivitamin Tab PO 08/23/24 08:59 Not Given QAM [facility] Nystatin 1 appln 07/23/24 21:00 07/25/24 13:47 Nystatin Oint 15 Gm Tube EXT 08/22/24 20:59 Not Given TID LEOBARDO Pantoprazole Sodium 40 mg 07/23/24 21:00 07/25/24 09:39 Pantoprazole 40 Mg Tab PO 08/22/24 20:59 Not Given BID LEOBARDO Potassium Chloride 20 meq 07/24/24 09:00 07/25/24 09:39 Potassium Chloride Crtab 20 Meq Tabcr PO 08/23/24 08:59 Not Given QAM LEOBARDO Spironolactone 25 mg 07/23/24 21:00 07/25/24 09:39 Spironolactone 25 Mg Tab PO 08/22/24 20:59 Not Given BID [facility] Tramadol HCl 50 mg 07/23/24 19:36 07/24/24 21:39 Tramadol Hcl 50 Mg Tablet PO 08/22/24 19:35 50 mg Q6H PRN Administration pain, for initial therapy, max 4tabs/day Vitamin D 50 mcg 07/23/24 21:00 07/25/24 13:47 Cholecalciferol 25 Mcg (1000 Units) Tab PO 08/22/24 20:59 Not Given TID [facility] Past Medical History Medical History Abdominal wall cellulitis Hypokalemia Mast cell disease B-cell lymphoma Hx-TIA (transient ischemic attack) 2016 > ASA for prevention > no residual effects Hx of sepsis 09/2021 r/t left knee infection Hypertension Lumbar spinal stenosis Arthritis Allergic rhinitis Gout Other ovarian cyst, left side present, just monitoring Acid reflux Severe obstructive sleep apnea cpap Stage 3 chronic kidney disease follows with Dr. Wood Fatty liver CHF (congestive heart failure) follows with [facility] Solitary kidney, congenital Diabetes mellitus, type 2 Ulcer of foot one ulcer present to bottom of bilat feet > follows with wound clinic at [place], improving per pt Chronic ulcer of right foot with fat layer exposed sees wound clinic > bilat feet at present History of COVID-19 09/2021 Iron deficiency anemia Venous stasis of both lower extremities MDD (major depressive disorder), recurrent episode, moderate Ambulatory dysfunction uses walker Depression with anxiety Degenerative joint disease, shoulder, right Lymphedema left leg and abdomen / chronic Asthma well controlled, rare res inh use Hyperlipidemia no meds Past Family History Family History Mother Diabetes Coronary heart disease Myocardial infarction S/P CABG x 3 Hypertension Gallbladder disease Sister Hodgkins lymphoma Brother Kidney disease Grandmother Breast cancer Aunt Ovarian cancer Father , 02/11/20. Peripheral vascular disease Daughter Diabetes Other Cancer No family history of adverse response to anesthesia Denies family history of Prostate cancer Colorectal cancer Past Surgical History Surgical History Hx of biopsy (12/29/23) Left Neck Lymph Node Biopsy(Left) - Yohan Maldonado DO, FACS History of insertion of central venous access port removed in 2022 History of revision of total replacement of left knee joint History of cardiac cath remote hx over 20 yrs ago, no stents History of colonoscopy History of esophagogastroduodenoscopy (EGD) History of bilateral knee replacement (10/16/22) H/O knee surgery (12/2021) L knee washout w/ polyexchange S/P tonsillectomy and adenoidectomy Status post total shoulder arthroplasty (10/17/18) right History of carpal tunnel release B/L H/O ventral hernia repair History of appendectomy History of cholecystectomy Social History Smoking Status: Former smoker tobacco type: cigarettes Do You Dip or Chew Tobacco: No Smoking End Date: Quit 20+ yrs ago Hx Alcohol Use: No Hx Substance Use: No substance use type: does not use Physical Exam Vital Signs Last Vital Signs Temp 97.7 F 07/25/24 11:39 Pulse 75 07/25/24 11:39 Resp 16 07/25/24 11:39 BP 107/67 07/25/24 11:39 Pulse Ox 93 07/25/24 11:39 O2 Del Method Room Air 07/25/24 11:39 Testing Laboratory Results 07/25/24 06:40 07/25/24 06:40 PT 11.2 Seconds (9.0-12.0) 07/23/24 15:02 INR 1.0 (0.9-1.1) 07/23/24 15:02 07/23/24 15:35 Gram Stain - Final Toe,Left Third Wound Culture - Preliminary Staphylococcus aureus Proteus mirabilis 07/23/24 16:04 Aerobic Blood Culture - Preliminary Blood No growth in Aerobic bottle after 24 hours. Anaerobic Blood Culture - Final 07/23/24 16:04 Aerobic Blood Culture - Preliminary Blood No growth in Aerobic bottle after 24 hours. Anaerobic Blood Culture - Preliminary No growth in Anaerobic bottle after 24 hours. Electrocardiogram Date: 07/23/24 Findings: + NSR @ anteroseptal infarct, poss inferior infarct Echocardiogram Date: 07/24/24 EF: 65-70 RV dilation? Mild
[2024-07-25] MEDS: BUPIVACAINE 0.5 % 5 MG/1 ML MPF 30ML VIAL ONE (18:00)
--- NOTE | 2024-07-25 18:12 | Post Operative Brief Note ---
Immediate Post Op Note Date of Surgery July 25, 2024 Pre & Post Diagnosis Operation Date: 07/25/24 07:00 Pre-Op Diagnosis: Acute Osteomyelitis of Toe of Left Foot Diabetic Infection of Left and Right Foot Post-Op Diagnosis: Acute Osteomyelitis of Toe of Left Foot Diabetic Infection of Left and Right Foot I identified the patient and participated in the time-out.: Yes Procedure Operation Date: 07/25/24 07:00 Actual Procedures p Left Third Toe Amputation(Left) - Dougie Kumar DPM s Bilateral Foot Ulcer Debridement - Dougie Kumar DPM Surgeon Dougie Kumar DPM Conservation Specialist None Estimated Blood Loss 30 Findings Consistent with Post-Op Diagnosis Specimens Third toe gross pathology Third toe proximal margin Third toe bone culture Anesthesia Type MAC Complications none Disposition Accompanied Patient To Recovery: Yes Disposition: Recovery Room
--- NOTE | 2024-07-25 18:41 | Anesthesiology Progress Note ---
Date of Service July 25, 2024 Anesthesia Post Procedure Vital Signs Vital Signs: Temp Pulse Pulse Pulse Resp BP Pulse Ox 07/25/24 18:35 97.9 F 79 22 111/68 94 07/25/24 18:25 77 17 120/59 L 92 07/25/24 18:15 98.6 F 83 16 103/67 99 07/25/24 16:35 98.2 F 75 24 124/68 97 07/25/24 16:10 97.9 F 66 16 110/70 96 07/25/24 11:39 97.7 F 75 16 107/67 93 07/25/24 10:09 72 07/25/24 07:57 98.1 F 70 16 106/64 98 07/25/24 03:07 97.7 F 74 18 113/66 97 07/24/24 22:28 97.9 F 76 18 99/64 L 96 07/24/24 21:45 74 07/24/24 19:29 97.5 F L 84 18 107/71 98 O2 Del Method O2 Flow Rate 07/25/24 18:35 Room Air 07/25/24 18:25 Room Air 07/25/24 18:15 Oxymask 5 07/25/24 16:35 Room Air 07/25/24 16:10 Room Air 07/25/24 11:39 Room Air 07/25/24 10:09 07/25/24 07:57 Room Air 07/25/24 03:07 Room Air 07/24/24 22:28 Room Air 07/24/24 21:45 07/24/24 19:29 Room Air Pain Intensity Bilateral Lower Leg: Pain Intensity: 7 Transfer of Care Handoff Completed per policy Notes Mental Status: alert / awake / arousable and participated in evaluation Patient Amnestic to Procedure: Yes Nausea / Vomiting: adequately controlled Pain: adequately controlled Airway Patency, RR, SpO2: stable & adequate BP & HR: stable & adequate Hydration State: stable & adequate Anesthetic Complications: no major complications apparent and Pt Satisfied with anesthetic care
--- NOTE | 2024-07-25 23:14 | Hospitalist Progress Note ---
Date of Service July 25, 2024 Assessment & Plan (1) Cellulitis of both lower extremities: (2) Toe gangrene: (3) Acute on chronic heart failure with preserved ejection fraction: (4) CKD (chronic kidney disease) stage 3, GFR 30-59 ml/min: (5) Diabetes mellitus, type 2: (6) Perforated ear drum: Plan This is a 63 year old female with past medical history of arthritis, allergic rhinitis, gout, CHF, Type 2 DM, CKD, asthma who presented to the ED on 07/23 with a complaint of lower extremity edema and foot wound. #B/L LE cellulitis/gangrene left third toe Patient w/ new wound on left third toe ~3 days [employer]. 1 week of chills. Patient w/ chronic lower extremity wounds, follows w/ outpatient wound clinic. Has noticed worsening seepage and edema of LE along w/ left foot pain. On PE patient appears to have LE cellulitis on both extremities, L worse than R w/ a 3rd toe wound w/ what appears to be down to the bone. Left foot XR: acute vs chronic osteomyelitis of tuft of third distal phalanx w/ overlying skin ulceration. generalized swelling w/ soft tissue gas collection & lateral to base of 5th metatarsal. abscess not excluded. CBC w/o leukocytosis. CRP 10.69, ESR 86, procal 0.06 Left Foot MRI 07/23: erosions & edema of distal 3rd phalanx present. edema of distal 1st phalanx. consistent w/ osteomyelitis. nonspecific subcutaneous edema. no organized fluid collection to suggest abscess. Prelim wound culture of left 3rd toe: staph aureus & proteus mirabilis s/p IV Cefepime, Flagyl, Clindamycin in the ED. Continue Cefepime & Clindamycin upon admission. Continue Allopurinol (hx of gout) Podiatry consulted discussed via tiger text 07/24 --> plan for left third toe amputation & other wound debridement. Date of operation TBD. NPO after midnight incase it is 07/25. Wound nurse consulted, appreciate recommendations. s/p toe amputation done by podiatry. #Acute on chronic heart failure Patient reportedly been off her bumex for ~ 1 month due to weight loss. Follows w/ CHF clinic outpatient. EKG on admission normal sinus rhythm Last Echo 08/2023: EF 65-70%. dilated RV w/ nl systolic function. no change from previous (2022) Slight increase of creatinine to 1.28 (within baseline) Update Echo pending CXR negative s/p 2mg IV Bumex x2 --> transition to Bumex 2mg PO once daily starting 07/25 Continue spironolactone 25mg BID, Metoprolol 25mg daily. #Perforated left ear drum patient reportedly was using q tip to clean ear a few days ago and had pain followed by blood drainage Otoscope eval shows bloody drainage, no signs of infection but perforated left tympanic membrane Cefepime should cover if infection. Follow up w/ ENT outpatient if still painful at end of discharge, supportive care in meantime. #Type 2 DM On Jardiance outpatient, hold while inpatient. A1c 01/2024 5.6% BG 103 on admission, hold sliding scale insulin but check BG frequently and add insulin if necessary. Continue gabapentin for neuropathy #CKD stage 3 Baseline creatinine 1.2-1.5 Creatinine @ baseline 1.28 Electrolytes stable, continue potassium supplement daily AM BMP Chronic conditions: Asthma/allergic rhinitis: Albuterol prn, Cetirizine, Montelukast Mental health: bupropion, buspirone, Duloxetine, Hydroxyzine GERD: Pepcid, PPI DVT prophylaxis: hold pending podiatry eval in event patient would require surgery. Code: full Admission and Anticipated Discharge Date Admission Date: July 23, 2024 Subjective Patient reports tolerating surgery. Physical Exam Constitutional: WD/WN, vitals as above Neck: trachea midline, no thyromegaly Respiratory: normal respiratory effort, lungs clear to auscultation Cardiovascular: RRR, no murmur, no edema Results & Data Results & Data Vital Signs (Past 12 Hours) Vital Signs Temp Pulse Pulse Pulse Resp BP Pulse Ox 07/25/24 22:34 36.7 C 82 18 112/69 93 07/25/24 21:15 36.6 C 83 18 107/68 93 07/25/24 20:15 36.7 C 89 20 120/70 93 07/25/24 19:49 36.5 C 94 H 18 115/79 93 07/25/24 19:21 85 07/25/24 19:19 36.6 C 74 16 108/63 94 07/25/24 19:00 36.6 C 77 18 105/68 91 07/25/24 18:45 80 19 103/62 94 07/25/24 18:35 36.6 C 79 22 111/68 94 07/25/24 18:25 77 17 120/59 L 92 07/25/24 18:15 37 C 83 16 103/67 99 07/25/24 16:35 36.8 C 75 24 124/68 97 07/25/24 16:10 36.6 C 66 16 110/70 96 07/25/24 11:39 36.5 C 75 16 107/67 93 O2 Del Method O2 Flow Rate 07/25/24 22:34 Room Air 07/25/24 21:15 Room Air 07/25/24 20:15 Room Air 07/25/24 19:49 Room Air 07/25/24 19:21 07/25/24 19:19 Room Air 07/25/24 19:00 Room Air 07/25/24 18:45 Room Air 07/25/24 18:35 Room Air 07/25/24 18:25 Room Air 07/25/24 18:15 Oxymask 5 07/25/24 16:35 Room Air 07/25/24 16:10 Room Air 07/25/24 11:39 Room Air PG Care Time/CCT Total # of Minutes Spent Total Time Spent with Patient: Total time spent is greater than 50% in coordination of care (as documented) at patient's floor/unit and/or counseling patient: Coding Level of Care Code 32086 SUB INP/OBS CARE 2/35MIN Diagnoses Cellulitis of both lower extremities L03.115; L03.116 Toe gangrene I96 Acute on chronic heart failure with preserved ejection fraction I50.33 CKD (chronic kidney disease) stage 3, GFR 30-59 ml/min N18.31 Chronic kidney disease stage 3 subtype: stage 3a (GFR 45-59) Diabetes mellitus, type 2 E11.9 Perforated ear drum H72.90 (4) CKD (chronic kidney disease) stage 3, GFR 30-59 ml/min Chronic kidney disease stage 3 subtype: stage 3a (GFR 45-59) Qualified Code(s): N18.31 - Chronic kidney disease, stage 3a
[2024-07-26 06:27] LABS: Hematocrit (blood only) 34.6 % (37.0-47.0); Hemoglobin 11.1 g/dl (12.0-16.0); Mean Corpuscular Hemoglobin 24.9 pg (25.0-34.0); Mean Corpuscular Hgb Conc 32.1 g/dL (32.0-36.0); Mean Corpuscular Volume 77.8 fL (80.0-100.0); Mean Platelet Volume 9.4 fL (9.4-12.4); Platelet Count 347 K/uL (130-400); RDW Coefficient of Variation 14.9 % (11.5-14.5); RDW Standard Deviation 41.8 fL (36.4-46.3); Red Blood Count 4.45 M/uL (4.20-5.40); White Blood Count 8.62 K/ul (4.8-10.8)
[2024-07-26 06:59] LABS: BUN Creatinine Ratio 10.3 (10-20); C Reactive Protein 5.06 mg/dl (0-0.5); Calcium 8.4 mg/dl (8.6-10.3); Creatinine Clr Calc Pharmacy 83.7 ml/min; Potassium 4.2 mmol/L (3.5-5.1)
--- NOTE | 2024-07-26 19:08 | Hospitalist Progress Note ---
Date of Service July 26, 2024 Assessment & Plan (1) Cellulitis of both lower extremities: (2) Toe gangrene: (3) Acute on chronic heart failure with preserved ejection fraction: (4) CKD (chronic kidney disease) stage 3, GFR 30-59 ml/min: (5) Diabetes mellitus, type 2: (6) Perforated ear drum: Plan This is a 63 year old female with past medical history of arthritis, allergic rhinitis, gout, CHF, Type 2 DM, CKD, asthma who presented to the ED on 07/23 with a complaint of lower extremity edema and foot wound. #B/L LE cellulitis/gangrene left third toe Patient w/ new wound on left third toe ~3 days [employer]. 1 week of chills. Patient w/ chronic lower extremity wounds, follows w/ outpatient wound clinic. Has noticed worsening seepage and edema of LE along w/ left foot pain. On PE patient appears to have LE cellulitis on both extremities, L worse than R w/ a 3rd toe wound w/ what appears to be down to the bone. Left foot XR: acute vs chronic osteomyelitis of tuft of third distal phalanx w/ overlying skin ulceration. generalized swelling w/ soft tissue gas collection & lateral to base of 5th metatarsal. abscess not excluded. CBC w/o leukocytosis. CRP 10.69, ESR 86, procal 0.06 Left Foot MRI 07/23: erosions & edema of distal 3rd phalanx present. edema of distal 1st phalanx. consistent w/ osteomyelitis. nonspecific subcutaneous edema. no organized fluid collection to suggest abscess. Prelim wound culture of left 3rd toe: staph aureus & proteus mirabilis s/p IV Cefepime, Flagyl, Clindamycin in the ED. Continue Cefepime & Clindamycin upon admission. Continue Allopurinol (hx of gout) Podiatry consulted discussed via tiger text 07/24 --> plan for left third toe amputation & other wound debridement. Date of operation TBD. NPO after midnight incase it is 07/25. Wound nurse consulted, appreciate recommendations. s/p toe amputation done by podiatry. awaiting final wound cultures from OR #Acute on chronic heart failure Patient reportedly been off her bumex for ~ 1 month due to weight loss. Follows w/ CHF clinic outpatient. EKG on admission normal sinus rhythm Last Echo 08/2023: EF 65-70%. dilated RV w/ nl systolic function. no change from previous (2022) Slight increase of creatinine to 1.28 (within baseline) Update Echo pending CXR negative s/p 2mg IV Bumex x2 --> transition to Bumex 2mg PO once daily starting 07/25 Continue spironolactone 25mg BID, Metoprolol 25mg daily. #Perforated left ear drum patient reportedly was using q tip to clean ear a few days ago and had pain followed by blood drainage Otoscope eval shows bloody drainage, no signs of infection but perforated left tympanic membrane Cefepime should cover if infection. Follow up w/ ENT outpatient if still painful at end of discharge, supportive care in meantime. #Type 2 DM On Jardiance outpatient, hold while inpatient. A1c 01/2024 5.6% BG 103 on admission, hold sliding scale insulin but check BG frequently and add insulin if necessary. Continue gabapentin for neuropathy #CKD stage 3 Baseline creatinine 1.2-1.5 Creatinine @ baseline: stable on 07/26 Electrolytes stable, continue potassium supplement daily AM BMP Chronic conditions: Asthma/allergic rhinitis: Albuterol prn, Cetirizine, Montelukast Mental health: bupropion, buspirone, Duloxetine, Hydroxyzine GERD: Pepcid, PPI Code: full Admission and Anticipated Discharge Date Admission Date: July 23, 2024 Subjective Patient reports having no new symptoms, ambulating well. Physical Exam Constitutional: WD/WN, vitals as above Neck: trachea midline, no thyromegaly Respiratory: normal respiratory effort, lungs clear to auscultation Cardiovascular: RRR, no murmur, no edema Results & Data Results & Data Vital Signs (Past 12 Hours) Vital Signs Temp Pulse Pulse Resp BP Pulse Ox O2 Del Method 07/26/24 16:00 36.6 C 69 16 103/61 97 Room Air 07/26/24 15:48 79 07/26/24 12:23 36.6 C 72 16 113/72 97 Room Air 07/26/24 07:38 36.7 C 72 16 146/78 H 98 07/26/24 07:27 74 PG Care Time/CCT Total # of Minutes Spent Total Time Spent with Patient: Total time spent is greater than 50% in coordination of care (as documented) at patient's floor/unit and/or counseling patient: Coding Level of Care Code 29161 SUB INP/OBS CARE MIN Diagnoses Cellulitis of both lower extremities L03.115; L03.116 Toe gangrene I96 Acute on chronic heart failure with preserved ejection fraction I50.33 CKD (chronic kidney disease) stage 3, GFR 30-59 ml/min N18.31 Chronic kidney disease stage 3 subtype: stage 3a (GFR 45-59) Diabetes mellitus, type 2 E11.9 Perforated ear drum H72.90 (4) CKD (chronic kidney disease) stage 3, GFR 30-59 ml/min Chronic kidney disease stage 3 subtype: stage 3a (GFR 45-59) Qualified Code(s): N18.31 - Chronic kidney disease, stage 3a
--- NOTE | 2024-07-26 21:00 | Podiatry Progress Note ---
Date of Service July 26, 2024 Assessment & Plan (1) Acute osteomyelitis of toe of left foot: (2) Diabetic infection of left foot: (3) Toe gangrene: (4) Cellulitis of both lower extremities: (5) Diabetic foot ulcer: (6) Chronic ulcer of left foot with fat layer exposed: (7) Chronic ulcer of right foot with fat layer exposed: Plan Patient examined and evaluated. - Dressing left intact today, POD#1. - Surgically clean margins obtained for the amputation, wounds are clinically clean, though chronic. - Can d/c home from podiatry standpoint with outpatient wound care. - We will follow-up within one week, likely on Wednesday. Should keep dressing clean, dry, and intact until then. - If she remains inpatient until Wednesday, will change the dressing by then. - Otherwise, would recommend two weeks oral antibiotics for cellulitis and close outpatient follow-up. Admission and Anticipated Discharge Date Admission Date: July 23, 2024 Subjective Pt seen at bedside, POD#1 s/p left third toe amputation and b/l wound debridement. Doing well without any pain. Denies chest pain, calf pain. Denies new s/s of infection. Review of Systems Constitutional: no fever, no chills and no fatigue Eyes: no problem reported Ear, Nose, Mouth, Throat: no problem reported Respiratory: no problem reported Cardiovascular: + edema; no problem reported Gastrointestinal: no nausea, no vomiting and no problem reported Genitourinary: no problem reported Musculoskeletal: no problem reported Integumentary: + skin ulcer, + wounds and + erythema Neurologic: + loss of sensation, + numbness and + pa resthesia; no generalized weakness Psychiatric: no problem reported Physical Exam Physical Exam: Lower extremity focused exam: DP/PT pulses faintly palpable. CFT brisk to toes. Dressing clean, dry, and intact without strikethrough. No ascending cellulitis. B/l superficial ulcerations/excoriations to the calves are unchanged. Constitutional: WD/WN, vitals as above + ill appearing and + morbidly obese Eyes: PERRL, conjunctivae normal, anicteric sclerae ENMT: external ear and nose normal, oropharynx normal Mouth: + edentulous and + poor dentition Neck: trachea midline, no thyromegaly normal visual inspection Respiratory: normal respiratory effort; no respiratory distress Cardiovascular: Rate/Rhythm: regular rate and regular rhythm Vessels: posterior tibial pulses present and dorsalis pedis pulses present Extremities: normal capillary refill, + pedal edema and + edema; no calf tenderness Chest (Breasts): Chest: normal inspection of chest Gastrointestinal (Abdomen): Inspection/Auscultation: abdomen normal to inspection Percussion/Palpation: + abdomen tender and abdomen soft Musculoskeletal: no cyanosis or clubbing, extremities motor strength 5/5 Head/Neck/Chest: normocephalic and head atraumatic Extremities: extremities normal to inspection and + limited ROM of extremities Skin: + ulcer, + wound, + skin atrophy and + n ails dystrophic Neurologic: awake; no focal motor deficits Psychiatric: A+Ox3, euthymic affect Results & Data Results & Data Vital Signs (Past 12 Hours) Vital Signs Temp Pulse Pulse Resp BP Pulse Ox O2 Del Method 07/26/24 20:02 36.7 C 67 20 103/68 92 Room Air 07/26/24 16:00 36.6 C 69 16 103/61 97 Room Air 07/26/24 15:48 79 07/26/24 12:23 36.6 C 72 16 113/72 97 Room Air (5) Diabetic foot ulcer Diabetic foot ulcer location: midfoot Diabetes mellitus type: type 2 Laterality: unspecified laterality Non-pressure ulcer stage: with fat layer exposed Qualified Code(s): E11.621 - Type 2 diabetes mellitus with foot ulcer; L97.402 - Non-pressure chronic ulcer of unspecified heel and midfoot with fat layer exposed
[2024-07-27 08:06] LABS: Hematocrit (blood only) 36.8 % (37.0-47.0); Hemoglobin 11.7 g/dl (12.0-16.0); Mean Corpuscular Hemoglobin 24.8 pg (25.0-34.0); Mean Corpuscular Hgb Conc 31.8 g/dL (32.0-36.0); Mean Platelet Volume 9.4 fL (9.4-12.4); Platelet Count 367 K/uL (130-400); RDW Standard Deviation 42.4 fL (36.4-46.3); Red Blood Count 4.72 M/uL (4.20-5.40); White Blood Count 7.57 K/ul (4.8-10.8)
[2024-07-27 08:11] LABS: BUN Creatinine Ratio 11.3 (10-20); Calcium 8.8 mg/dl (8.6-10.3); Creatinine Clr Calc Pharmacy 70.6 ml/min
[2024-07-27] MEDS: IRON SUCROSE 300 MG in SODIUM CHLORIDE 0.9% 250 ML IV ONE (12:12)
--- NOTE | 2024-07-27 15:00 | Hospitalist Progress Note ---
Date of Service July 27, 2024 Assessment & Plan (1) Cellulitis of both lower extremities: Plan: Debrided by podiatry July 21. Cultures growing staph, group B strep, and Proteus. She remains on clindamycin and cefepime, day 5 (2) Toe gangrene: Plan: Left third toe has been amputated. Local care. Appreciate podiatry consultation recommendations (3) Iron deficiency anemia: Plan: Parenteral iron replacement day 1. Oral iron replacement at discharge. No overt melena or hematochezia (4) CKD (chronic kidney disease) stage 3, GFR 30-59 ml/min: Plan: Stable. Monitor intake and output. Serial labs (5) Diabetes mellitus, type 2: Plan: ADA diet. Sliding scale coverage. (6) Perforated ear drum: Plan: Left. Local care (7) Morbid obesity: Plan: BMI greater than 40. Significant weight loss recommended (8) Chronic diastolic (congestive) heart failure: Plan: Stable. Monitor intake and output. Continue current medical management Plan OT and PT evaluations requested. The patient is hopeful to go home with home health services. Anticipate discharge within the next day or 2 Admission and Anticipated Discharge Date Admission Date: July 23, 2024 Subjective Alert and oriented. No complaints. Iron deficiency documented. Parenteral iron replacement ordered, day 1. Wound cultures of the left third toe which has been amputated are growing Staphylococcus, group B strep, and Proteus. She is currently on clindamycin and cefepime, day 5. Postoperative day #2 after toe amputation. OT and PT assessments requested Review of Systems 2 Review of Systems: Constitutionalno fever or chills ENTno blurred vision, no double vision, no epistaxis, no sore throat Respiratoryno cough, no wheezing, no shortness of breath Cardiacno palpitations, no chest pain, no syncope Edith nausea, vomiting, diarrhea, melena, hematochezia GUno urinary retention, no urinary incontinence, no dysuria, no hematuria Musculoskeletalno joint pain, no muscle tenderness Skinno bruising, no rashes, no pruritus Neurono isolated weakness, no paresthesia, no weakness Psychno depression, no anxiety Physical Exam 2 Physical Exam: General-alert and oriented x3, no fever, no chills HEENT-head atraumatic and normocephalic, pupils equal and reactive to light, extraocular muscles intact Neck-no lymphadenopathy or thyromegaly, trachea midline Chest-clear to auscultation. No rales, wheezing or rhonchi Cardiac-regular rate and rhythm, normal S1 and S2 Abdomen-normal bowel sounds, no hepatosplenomegaly Extremities-no cyanosis, clubbing, or edema. Left forefoot is heavily bandaged Neuro-cranial nerves II through XII intact, motor and sensory function within normal limits, strength symmetrical, no focal deficits Psych-normal affect, normal mood Results & Data Results & Data Vital Signs (Past 12 Hours) Vital Signs Temp Pulse Pulse Resp BP Pulse Ox O2 Del Method 07/27/24 11:15 36.7 C 67 18 101/67 96 Room Air 07/27/24 08:04 36.5 C 68 18 104/63 94 Room Air 07/27/24 08:00 90 07/27/24 04:00 36.4 C L 64 20 109/74 93 Room Air Laboratory Results 07/27/24 07:30 07/27/24 07:30 PG Care Time/CCT Total # of Minutes Spent Total Time Spent with Patient: Total time spent is greater than 50% in coordination of care (as documented) at patient's floor/unit and/or counseling patient: Coding Level of Care Code 97576 SUB INP/OBS CARE 350MIN Diagnoses Cellulitis of both lower extremities L03.115; L03.116 Toe gangrene I96 Iron deficiency anemia D50.9 CKD (chronic kidney disease) stage 3, GFR 30-59 ml/min N18.31 Chronic kidney disease stage 3 subtype: stage 3a (GFR 45-59) Diabetes mellitus, type 2 E11.9 Perforated ear drum H72.90 Morbid obesity E66.01 Chronic diastolic (congestive) heart failure I50.32 (4) CKD (chronic kidney disease) stage 3, GFR 30-59 ml/min Chronic kidney disease stage 3 subtype: stage 3a (GFR 45-59) Qualified Code(s): N18.31 - Chronic kidney disease, stage 3a
[2024-07-28 06:18] LABS: Basophils # (auto) 0.04 K/uL (0.00-0.20); Basophils % (auto) 0.5 %; Eosinophils # (auto) 0.44 K/uL (0.00-0.50); Hematocrit (blood only) 39.1 % (37.0-47.0); Hemoglobin 12.4 g/dl (12.0-16.0); Immature Granulocytes # (auto) 0.04 K/uL (0.01-0.20); Immature Granulocytes % (auto) 0.5 %; Lymphocytes # (auto) 2.52 K/uL (1.20-3.40); Lymphocytes % (auto) 28.4 %; Mean Corpuscular Hemoglobin 24.7 pg (25.0-34.0); Mean Corpuscular Hgb Conc 31.7 g/dL (32.0-36.0); Mean Corpuscular Volume 77.9 fL (80.0-100.0); Mean Platelet Volume 9.5 fL (9.4-12.4); Monocytes # (auto) 0.56 K/uL (0.11-0.59); Monocytes % (auto) 6.3 %; Neutrophils # (auto) 5.26 K/uL (1.40-6.50); Neutrophils % (auto) 59.3 %; Platelet Count 398 K/uL (130-400); RDW Coefficient of Variation 15.1 % (11.5-14.5); RDW Standard Deviation 42.3 fL (36.4-46.3); Red Blood Count 5.02 M/uL (4.20-5.40); White Blood Count 8.86 K/ul (4.8-10.8)
[2024-07-28 06:28] LABS: BUN Creatinine Ratio 13.6 (10-20); Calcium 8.9 mg/dl (8.6-10.3); Creatinine Clr Calc Pharmacy 70.3 ml/min; Potassium 3.8 mmol/L (3.5-5.1)
[2024-07-28] MEDS: IRON SUCROSE 300 MG in SODIUM CHLORIDE 0.9% 250 ML IV ONE (10:13)
[2024-07-28] MEDS: CLINDAMYCIN HCL 150 MG CAP PO SCH (12:38)
--- NOTE | 2024-07-28 13:03 | Hospitalist Progress Note ---
Date of Service July 28, 2024 Assessment & Plan (1) Cellulitis of both lower extremities: Plan: Debrided by podiatry July 21. Cultures growing staph, group B strep. Initially treated with intravenous lindamycin and cefepime and now switched to oral clindamycin only, July 28. (2) Toe gangrene: Plan: Left third toe has been amputated. Local care. Appreciate podiatry consultation recommendations. Pathology report remains pending (3) Iron deficiency anemia: Plan: Parenteral iron replacement day 2 of 3. Oral iron replacement at discharge. No overt melena or hematochezia (4) CKD (chronic kidney disease) stage 3, GFR 30-59 ml/min: Plan: Stable. Monitor intake and output. Serial labs (5) Diabetes mellitus, type 2: Plan: ADA diet. Sliding scale coverage. (6) Perforated ear drum: Plan: Left side. Local care (7) Morbid obesity: Plan: BMI greater than 40. Significant weight loss recommended (8) Chronic diastolic (congestive) heart failure: Plan: Stable. Monitor intake and output. Continue current medical management Plan OT and PT evaluations requested and pending. She may need short-term placement before she can return home. Admission and Anticipated Discharge Date Admission Date: July 23, 2024 Subjective Alert and oriented. No distress. Postoperative day 3 after left third toe amputation. Pathology report remains pending. Cultures are growing MSSA and group B strep. Intravenous cefepime and intravenous clindamycin switched to oral clindamycin dosing. She is receiving her second day of parenteral iron replacement today, July 28. OT and PT assessments remain pending. She may need placement before she can return home glucose 97 this morning, July 28 Review of Systems 2 Review of Systems: Constitutionalno fever or chills ENTno blurred vision, no double vision, no epistaxis, no sore throat Respiratoryno cough, no wheezing, no shortness of breath Cardiacno palpitations, no chest pain, no syncope Edith nausea, vomiting, diarrhea, melena, hematochezia GUno urinary retention, no urinary incontinence, no dysuria, no hematuria Musculoskeletalno joint pain, no muscle tenderness Skinno bruising, no rashes, no pruritus Neurono isolated weakness, no paresthesia, no weakness Psychno depression, no anxiety Physical Exam 2 Physical Exam: General-alert and oriented x3, no fever, no chills HEENT-head atraumatic and normocephalic, pupils equal and reactive to light, extraocular muscles intact Neck-no lymphadenopathy or thyromegaly, trachea midline Chest-clear to auscultation. No rales, wheezing or rhonchi Cardiac-regular rate and rhythm, normal S1 and S2 Abdomen-normal bowel sounds, no hepatosplenomegaly Extremities-no cyanosis, clubbing, or edema. Left forefoot is heavily bandaged Neuro-cranial nerves II through XII intact, motor and sensory function within normal limits, strength symmetrical, no focal deficits Psych-normal affect, normal mood Results & Data Results & Data Vital Signs (Past 12 Hours) Vital Signs Temp Pulse Pulse Resp BP Pulse Ox O2 Del Method 07/28/24 11:46 36.6 C 67 18 110/73 93 Room Air 07/28/24 09:42 62 07/28/24 09:02 36.6 C 70 18 105/67 97 Room Air 07/28/24 04:15 36.4 C L 66 20 106/73 97 Room Air Laboratory Results 07/28/24 05:32 07/28/24 05:32 PG Care Time/CCT Total # of Minutes Spent Total Time Spent with Patient: Total time spent is greater than 50% in coordination of care (as documented) at patient's floor/unit and/or counseling patient: Coding Level of Care Code 61957 SUB INP/OBS CARE 350MIN Diagnoses Cellulitis of both lower extremities L03.115; L03.116 Toe gangrene I96 Iron deficiency anemia D50.9 CKD (chronic kidney disease) stage 3, GFR 30-59 ml/min N18.31 Chronic kidney disease stage 3 subtype: stage 3a (GFR 45-59) Diabetes mellitus, type 2 E11.9 Perforated ear drum H72.90 Morbid obesity E66.01 Chronic diastolic (congestive) heart failure I50.32 (4) CKD (chronic kidney disease) stage 3, GFR 30-59 ml/min Chronic kidney disease stage 3 subtype: stage 3a (GFR 45-59) Qualified Code(s): N18.31 - Chronic kidney disease, stage 3a
[2024-07-28] MEDS ORDERED: methylPREDNISolone 125 MG/2 ML VIAL IV ONE (19:32)
[2024-07-28] MEDS: methylPREDNISolone 60 MG in SYRINGE 0 ML IV ONE (20:21)
--- NOTE | 2024-07-28 21:00 | Podiatry Progress Note ---
Date of Service July 28, 2024 Assessment & Plan (1) Acute osteomyelitis of toe of left foot: (2) Diabetic infection of left foot: (3) Toe gangrene: (4) Cellulitis of both lower extremities: (5) Diabetic foot ulcer: (6) Chronic ulcer of left foot with fat layer exposed: (7) Chronic ulcer of right foot with fat layer exposed: Plan Patient examined and evaluated POD#3 - Surgically clean margins obtained for the amputation, wounds are clinically clean, though chronic. - Pathology confirms no retained OM to third toe. - Can d/c home from podiatry standpoint with outpatient wound care. - We will follow-up within one week, likely on Wednesday. Should keep dressing clean, dry, and intact until then. - Orders for wound care by nursing with sterile, bulky dressings until she is d/c home. - Otherwise, would recommend two weeks oral antibiotics for cellulitis and close outpatient follow-up. Admission and Anticipated Discharge Date Admission Date: July 23, 2024 Subjective Seen at bedside at lunch, POD #3. No new concerns. Feeling well. No pain to foot, either amputation site or ulcerations. Sitting up and eating. Anxious for discharge, though knows she'll be here today. Review of Systems Constitutional: no fever, no chills and no fatigue Eyes: no problem reported Ear, Nose, Mouth, Throat: no problem reported Respiratory: no problem reported Cardiovascular: + edema; no problem reported Gastrointestinal: no nausea, no vomiting and no problem reported Genitourinary: no problem reported Musculoskeletal: no problem reported Integumentary: + skin ulcer, + wounds and + erythema Neurologic: + loss of sensation, + numbness and + pa resthesia; no generalized weakness Psychiatric: no problem reported Physical Exam Physical Exam: Lower extremity focused exam: DP/PT pulses faintly palpable. CFT brisk to toes. Dressing clean, dry, and intact without strikethrough. No ascending cellulitis. B/l superficial ulcerations/excoriations to the calves are unchanged. Sutures intact with no periwound infection or maceration. No abscess formation or dehiscence. Wounds are granular. Constitutional: WD/WN, vitals as above + ill appearing and + morbidly obese Eyes: PERRL, conjunctivae normal, anicteric sclerae ENMT: external ear and nose normal, oropharynx normal Mouth: + edentulous and + poor dentition Neck: trachea midline, no thyromegaly normal visual inspection Respiratory: normal respiratory effort; no respiratory distress Cardiovascular: Rate/Rhythm: regular rate and regular rhythm Vessels: posterior tibial pulses present and dorsalis pedis pulses present Extremities: normal capillary refill, + pedal edema and + edema; no calf tenderness Chest (Breasts): Chest: normal inspection of chest Gastrointestinal (Abdomen): Inspection/Auscultation: abdomen normal to inspection Percussion/Palpation: + abdomen tender and abdomen soft Musculoskeletal: no cyanosis or clubbing, extremities motor strength 5/5 Head/Neck/Chest: normocephalic and head atraumatic Extremities: extremities normal to inspection and + limited ROM of extremities Skin: + ulcer, + wound, + skin atrophy and + n ails dystrophic Neurologic: awake; no focal motor deficits Psychiatric: A+Ox3, euthymic affect Results & Data Results & Data Vital Signs (Past 12 Hours) Vital Signs Temp Pulse Pulse Resp BP Pulse Ox O2 Del Method 07/28/24 19:30 36.5 C 68 18 107/67 97 Room Air 07/28/24 16:09 36.5 C 66 18 103/69 96 Room Air 07/28/24 15:24 70 07/28/24 11:46 36.6 C 67 18 110/73 93 Room Air 07/28/24 09:42 62 07/28/24 09:02 36.6 C 70 18 105/67 97 Room Air (5) Diabetic foot ulcer Diabetic foot ulcer location: midfoot Diabetes mellitus type: type 2 Laterality: unspecified laterality Non-pressure ulcer stage: with fat layer exposed Qualified Code(s): E11.621 - Type 2 diabetes mellitus with foot ulcer; L97.402 - Non-pressure chronic ulcer of unspecified heel and midfoot with fat layer exposed
[2024-07-28] MEDS: BUTT PASTE (ZINC OXIDE 16%) 171 APPLN/57 GM JAR EXT PRN (21:28)
[2024-07-29 06:20] LABS: Hematocrit (blood only) 42.5 % (37.0-47.0); Hemoglobin 13.4 g/dl (12.0-16.0); Mean Corpuscular Hemoglobin 24.6 pg (25.0-34.0); Mean Corpuscular Hgb Conc 31.5 g/dL (32.0-36.0); Mean Corpuscular Volume 78.1 fL (80.0-100.0); Mean Platelet Volume 9.8 fL (9.4-12.4); Platelet Count 420 K/uL (130-400); RDW Coefficient of Variation 15.1 % (11.5-14.5); RDW Standard Deviation 42.5 fL (36.4-46.3); Red Blood Count 5.44 M/uL (4.20-5.40); White Blood Count 7.55 K/ul (4.8-10.8)
[2024-07-29 06:38] LABS: BUN Creatinine Ratio 14.5 (10-20); Calcium 9.4 mg/dl (8.6-10.3); Creatinine Clr Calc Pharmacy 67.2 ml/min; Potassium 4.5 mmol/L (3.5-5.1)
[2024-07-29 06:44] LABS: Basophils # (auto) 0.01 K/uL (0.00-0.20); Basophils % (auto) 0.1 %; Eosinophils # (auto) 0.01 K/uL (0.00-0.50); Eosinophils % (auto) 0.1 %; Immature Granulocytes # (auto) 0.03 K/uL (0.01-0.20); Immature Granulocytes % (auto) 0.4 %; Lymphocytes # (auto) 0.52 K/uL (1.20-3.40); Lymphocytes % (auto) 6.9 %; Monocytes # (auto) 0.04 K/uL (0.11-0.59); Monocytes % (auto) 0.5 %; Neutrophils # (auto) 6.94 K/uL (1.40-6.50); RBC Morphology Unremarkable
[2024-07-29] MEDS: ADVANCED PROBIOTIC 625 MG CAPSULE PO SCH (10:47)
--- NOTE | 2024-07-29 12:02 | Hospitalist Progress Note ---
Date of Service July 29, 2024 Assessment & Plan (1) Cellulitis of both lower extremities: Plan: marked improvement by history previously on cefepime & clindamycin --> both d/c on 07/28; transitioned to PO clindamycin at that time I am uncertain if the new onset rash over the legs/thighs is a drug allergy to clindamycin vs IV iron either way will stop clindamycin, change to PO cefuroxime 500mg TID culture data available is from the left 3rd toe -- this grew MSSA, group B strep, and proteus; all sensitive to 3rd gen cephalosporins - hence the cefuroxime moving forward (2) Toe gangrene: Plan: 07/25/24 - s/p L third amputation by Dr Kumar from podiatry appreciate his assistance pathology with clear margins culture data from OR -- MSSA, Group B strep See #1 re: abx selection cont dressing changes, etc. (3) Iron deficiency anemia: Plan: received 2 doses of IV iron - 07/27 and 07/28 she developed a new rash on her legs on 07/28 - uncertain if due to parenteral Fe vs clindamycin vs other will not give any additional IV iron at this time given her stable H/H (4) CKD (chronic kidney disease) stage 3, GFR 30-59 ml/min: Plan: stable Cr at 1.2-1.3 giving an additional dose of bumex this afternoon (1mg) due to patient concern of ongoing abdominal wall edema repeat BMP am (5) Diabetes mellitus, type 2: Plan: check a1c in am she has lost considerable amount of weight since her panniculectomy in 2023 she is not receiving any insulin or PO therapies for DM at this time (6) Perforated ear drum: Plan: Left side per prior attending MD will need ENT f/u (7) Morbid obesity: Plan: BMI 44 (8) Chronic diastolic (congestive) heart failure: Plan: appears euvolemic, but patient feels she still has abdominal wall edema thus, will give additional dose of bumex 1mg x 1 this afternoon and re-eval tomorrow cont AM bumex cont meto succ echo from earlier this admission noted (9) Postprandial nausea: Plan: etiology? gastroparesis? gastritis? other? 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 drug rxn to clindamycin? other? no further IV iron at this time stop clindamycin s/p steroids yesterday will give another dose today (dexamethasone 6mg x1) send back to Dr Patel as she has known h/o mast cell d/o, allergies, etc Plan passed PT/OT priti can return home at d/c d/c next 1-2 days hopefully Admission and Anticipated Discharge Date Admission Date: July 23, 2024 Subjective sometime late afternoon/early evening on 07/28 patient developed a rash on her lower legs that then spread to both thighs she was given a dose of IV solumedrol and within a few hours the rash was much better she never had rash on her arms, abdominal wall, back, or chest she does have some chronic skin lesions on her chest wall but these are different than the rash that broke out last pm the previous cellulitis on her distal legs and feet are MUCH better in addition to the above she complains of post-prandial nausea for several weeks she had the flu several weeks ago and ever since has had the nausea she is moving her bowels no vomiting fortunately denies abd pain did have a successful panniculectomy in fall 2023 at [facility] Review of Systems 2 Review of Systems: gen - no fevers or chills cv - no chest pain pulm - no dyspnea GI - see HPI Physical Exam 2 Physical Exam: gen - NAD, lying comfortably in bed, morbidly obese neck - no JVD mouth - MMM heart - RRR, s1 s2, no murmur lungs - CTA b/l, no rales abd - soft NT ND BS+; large well-healed scar running horizontally along the inferior border of abdominal wall ext - <1+ edema b/l distal shins/feet, pulses 2+ b/l skin - see scanned photos; clean-based ulcer over first MTP joint left foot; no surrounding cellulitis; clean-based ulcer 5th metatarsal plantar aspect left foot; similar clean-based ulcer 5th metatarsal plantar aspect right foot; stasis changes b/l distal shins; absent 3rd toe left foot; sutures intact; no drainage. Erythematous macularpapular rash mainly inner thighs b/l legs and a small amount more distal legs. No involvement of arms, abdominal wall or chest. Scattered scaly plaques on chest wall Results & Data Results & Data Vital Signs (Past 12 Hours) Vital Signs Temp Pulse Pulse Resp BP Pulse Ox O2 Del Method 07/29/24 08:01 36.5 C 69 16 112/74 93 Room Air 07/29/24 07:06 Room Air 07/29/24 06:52 79 07/29/24 04:00 36.6 C 75 18 115/67 96 Room Air Laboratory Results Laboratory Results - last 24 hr 07/29/24 05:38 WBC 7.55 RBC 5.44 H Hgb 13.4 Hct 42.5 MCV 78.1 L MCH 24.6 L MCHC 31.5 L RDW Std Deviation 42.5 RDW Coeff of Cleo 15.1 H Plt Count 420 H MPV 9.8 Immature Gran % (Auto) 0.4 Neut % (Auto) 92.0 Lymph % (Auto) 6.9 [place] % (Auto) 0.5 Eos % (Auto) 0.1 Baso % (Auto) 0.1 Neut # (Auto) 6.94 H Lymph # (Auto) 0.52 L [place] # (Auto) 0.04 L Eos # (Auto) 0.01 Baso # (Auto) 0.01 Immature Gran # (Auto) 0.03 RBC Morphology Unremarkable Sodium 136 Potassium 4.5 Chloride 98 Carbon Dioxide 33 H Anion Gap 5 BUN 19 Creatinine 1.31 H Est Cr Clr Drug Dosing 67.2 eGFR 46.36 BUN/Creatinine Ratio 14.5 Glucose 198 H Calcium 9.4 Diagnostic Findings PG Care Time/CCT Total # of Minutes Spent Total Time Spent with Patient: Total time spent is greater than 50% in coordination of care (as documented) at patient's floor/unit and/or counseling patient: Coding Level of Care Code 21173 SUB INP/OBS CARE 3/50MIN Diagnoses Cellulitis of both lower extremities L03.115; L03.116 Toe gangrene I96 Iron deficiency anemia D50.9 CKD (chronic kidney disease) stage 3, GFR 30-59 ml/min N18.31 Chronic kidney disease stage 3 subtype: stage 3a (GFR 45-59) Diabetes mellitus, type 2 E11.9 Perforated ear drum H72.90 Morbid obesity E66.01 Chronic diastolic (congestive) heart failure I50.32 Postprandial nausea R11.0 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 S52.042A Diabetic ulcer of midfoot associated with type 2 diabetes mellitus, with fat layer exposed, unspecified laterality E11.621; L97.402 Diabetic foot ulcer location: midfoot Diabetes mellitus type: type 2 Laterality: unspecified laterality Non-pressure ulcer stage: with fat layer exposed Rash R21 (4) CKD (chronic kidney disease) stage 3, GFR 30-59 ml/min Chronic kidney disease stage 3 subtype: stage 3a (GFR 45-59) Qualified Code(s): N18.31 - Chronic kidney disease, stage 3a (11) Diabetic foot ulcer Diabetic foot ulcer location: midfoot Diabetes mellitus type: type 2 L aterality: unspecified laterality Non-pressure ulcer stage: with fat layer exposed Qualified Code(s): E11.621 - Type 2 diabetes mellitus with foot ulcer; L97.402 - Non-pressure chronic ulcer of unspecified heel and midfoot with fat layer exposed
[2024-07-29] MEDS: SUCRALFATE 1 GM/10 ML UDC PO SCH (13:22)
[2024-07-29] MEDS: cefUROXime axetil 500 MG TAB PO SCH (13:24)
[2024-07-29] MEDS: dexAMETHasone 6 MG in SYRINGE 0 ML IV ONE (13:40)
[2024-07-29] MEDS: BUMETANIDE 1 MG TAB PO ONE (16:55)
[2024-07-30 07:33] LABS: BUN Creatinine Ratio 20.2 (10-20); Calcium 9.4 mg/dl (8.6-10.3); Creatinine Clr Calc Pharmacy 74.2 ml/min; Potassium 4.1 mmol/L (3.5-5.1)
[2024-07-30 07:48] LABS: Thyroid Stimulating Hormone 0.392 uIu/ml (0.300-4.500)
[2024-07-30 08:32] LABS: Estimated Average Glucose 123 mg/dl; Hemoglobin A1C 5.9 % (4.5-5.6)
[2024-07-30] MEDS: dexAMETHasone 4 MG in SYRINGE 0 ML IV ONE (14:25)
--- NOTE | 2024-07-30 15:05 | CT Scan Report ---
EXAMINATION: Abdomen and pelvis CT without CLINICAL HISTORY: Early satiety, abdominal pain, bloating PRIORS: 11/21/2023, 08/24/2023 CT abdomen TECHNIQUE: Contiguous axial images were obtained through the abdomen and pelvis without the use of intravenous contrast. Sagittal and coronal reformations are supplied. FINDINGS: Lung bases show no pleural effusion. Evaluation of solid organs is limited without the use of intravenous contrast. Allowing for this, the liver is enlarged measuring 20 cm, unchanged. The gallbladder is surgically absent. Stomach contains solid and liquid material is partly distended and morphologically unremarkable. No surrounding adenopathy. The noncontrast enhanced pancreas, spleen, adrenals, aorta and IVC are morphologically unremarkable. Advanced atherosclerotic disease of the celiac trunk, image 113, series 3. Nonobstructing renal calcifications present bilaterally. Moderate to high-grade atrophy of the right kidney, asymmetric with the left. An extremely large amount of formed stool is present throughout the colon. No dilated loops of bowel or pericolonic inflammatory change. No ascites or adenopathy. No dilated loops of small bowel. Urinary bladder is distended with normal morphology. A left adnexal cyst is present, image 44, series 2 measuring 5.6 x 4.9 x 7.4 Cm. No free fluid or adenopathy in the pelvis.uterus is atrophic. No right adnexal cyst. No abdominal, mesenteric or retroperitoneal adenopathy. In bone windows, osseous demineralization is noted with moderate to advanced degenerative change of the lumbar spine. No compression fracture. IMPRESSION: 1. No CT evidence of an acute abdominal or pelvic abnormality. 2. Extremely large amount of formed stool throughout the colon with no dilated loops of bowel or inflammatory change. 3. Left adnexal/ovarian cyst measuring 7.4 cm. Pelvic ultrasound is suggested which could be performed on an outpatient basis ACT 112: Positive. There are findings on this examination that require communication between the performing entity and the patient following Patient Test Result Information Act ([place] ACT 112) guidelines. Electronically signed by Theresa Sánchez 07-30-2024 3:05 PM
--- NOTE | 2024-07-30 19:19 | Hospitalist Progress Note ---
Date of Service July 30, 2024 Assessment & Plan (1) Cellulitis of both lower extremities: Plan: marked improvement/resolved previously on cefepime & clindamycin --> both d/c on 07/28; transitioned to PO clindamycin at that time I am uncertain if the new onset rash over the legs/thighs was a drug allergy to clindamycin vs IV iron either way stopped clindamycin on 07/29 and changed to PO cefuroxime 500mg TID at that time cont such for 1 additional week culture data available is from the left 3rd toe -- this grew MSSA, group B strep, and proteus; all sensitive to 3rd gen cephalosporins - hence the cefuroxime moving forward (2) Toe gangrene: Plan: 07/25/24 - s/p L third amputation by Dr Kumar from podiatry appreciate his assistance pathology with clear margins culture data from OR -- MSSA, Group B strep See #1 re: abx selection cont dressing changes, etc. operative site clean once again today will need f/u with Dr Kumar post-d/c (3) Iron deficiency anemia: Plan: received 2 doses of IV iron - 07/27 and 07/28 she developed a new rash on her legs on 07/28 - uncertain if due to parenteral Fe vs clindamycin vs other will not give any additional IV iron at this time given her stable H/H (4) CKD (chronic kidney disease) stage 3, GFR 30-59 ml/min: Plan: stable Cr at 1.1 today (5) Diabetes mellitus, type 2: Plan: a1c 5.9% c/w pre-DM made patient aware of this she has lost considerable amount of weight since her panniculectomy in 2023 she is not receiving any insulin or PO therapies for DM at this time (6) Perforated ear drum: Plan: Left side per prior attending MD will need ENT f/u post-d/c (7) Morbid obesity: Plan: BMI 44 (8) Chronic diastolic (congestive) heart failure: Plan: appears euvolemic cont AM bumex cont meto succ echo from earlier this admission noted (9) Postprandial nausea: Plan: etiology? gastroparesis? gastritis? other? 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 drug rxn to clindamycin? other? no further IV iron at this time stop clindamycin s/p steroids 07/28 and 07/29 will give another dose today (dexamethasone 4mg x1) send back to Dr Patel as she has known h/o mast cell d/o, allergies, etc Plan passed PT/OT evals can return home - hopefully tomorrow Admission and Anticipated Discharge Date Admission Date: July 23, 2024 Subjective no events overnight major complaint continues to be early satiety and post-prandial nausea present for several weeks no vomiting no abd pain moving bowels rash on thighs improving no new areas of rash Review of Systems Review of Systems: cv - no chest pain pulm - no dyspnea GI - no diarrhea Physical Exam Physical Exam: gen - NAD, lying comfortably in bed, morbidly obese - looks same as yesterday neck - no JVD mouth - MMM heart - RRR, s1 s2, no murmur lungs - CTA b/l, no rales abd - soft NT ND BS+; large well-healed scar running horizontally along the inferior border of abdominal wall ext - trace edema b/l distal shins/feet, pulses 2+ b/l skin - clean-based ulcer over first MTP joint left foot; no surrounding cellulitis; clean-based ulcer 5th metatarsal plantar aspect left foot; similar clean-based ulcer 5th metatarsal plantar aspect right foot; stasis changes b/l distal shins; absent 3rd toe left foot; sutures intact; no drainage - looks same as yesterday. Fading macularpapular rash mainly inner thighs b/l legs and a small amount more distal legs - rash today is pink rather than red. No involvement of arms, abdominal wall or chest. Scattered scaly plaques on chest wall also improved today. Results & Data Results & Data Vital Signs (Past 12 Hours) Vital Signs Temp Pulse Pulse Resp BP Pulse Ox Pulse Ox 07/30/24 16:08 36.6 C 58 L 18 104/72 93 07/30/24 16:00 93 07/30/24 11:35 36.7 C 63 16 120/68 95 07/30/24 07:42 36.4 C L 60 16 115/73 94 07/30/24 07:23 O2 Del Method O2 Del Method 07/30/24 16:08 Room Air 07/30/24 16:00 Room Air 07/30/24 11:35 07/30/24 07:42 Room Air 07/30/24 07:23 Room Air Laboratory Results Laboratory Results - last 24 hr 07/30/24 06:38 Sodium 137 Potassium 4.1 Chloride 97 L Carbon Dioxide 34 H Anion Gap 6 BUN 24 H Creatinine 1.19 Est Cr Clr Drug Dosing 74.2 eGFR 52.02 BUN/Creatinine Ratio 20.2 H Glucose 115 H Estimat Average Glucose 123 Hemoglobin A1c 5.9 H Calcium 9.4 TSH 0.392 PG Care Time/CCT Total # of Minutes Spent Total Time Spent with Patient: Total time spent is greater than 50% in coordination of care (as documented) at patient's floor/unit and/or counseling patient: Coding Level of Care Code 36980 SUB INP/OBS CARE 3/50MIN Diagnoses Cellulitis of both lower extremities L03.115; L03.116 Toe gangrene I96 Iron deficiency anemia D50.9 CKD (chronic kidney disease) stage 3, GFR 30-59 ml/min N18.31 Chronic kidney disease stage 3 subtype: stage 3a (GFR 45-59) Diabetes mellitus, type 2 E11.9 Perforated ear drum H72.90 Morbid obesity E66.01 Chronic diastolic (congestive) heart failure I50.32 Postprandial nausea R11.0 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 S52.042A Diabetic ulcer of midfoot associated with type 2 diabetes mellitus, with fat layer exposed, unspecified laterality E11.621; L97.402 Diabetes mellitus type: type 2 Diabetic foot ulcer location: midfoot Laterality: unspecified laterality Non-pressure ulcer stage: with fat layer exposed Rash R21 (4) CKD (chronic kidney disease) stage 3, GFR 30-59 ml/min Chronic kidney disease stage 3 subtype: stage 3a (GFR 45-59) Qualified Code(s): N18.31 - Chronic kidney disease, stage 3a (11) Diabetic foot ulcer Diabetes mellitus type: type 2 Diabetic foot ulcer location: midfoot Laterality: unspecified laterality Non-pressure ulcer stage: with fat layer exposed Qualified Code(s): E11.621 - Type 2 diabetes mellitus with foot ulcer; L97.402 - Non-pressure chronic ulcer of unspecified heel and midfoot with fat layer exposed
[2024-07-30] MEDS: SENNA 8.6 MG TAB PO SCH (20:18)
[2024-07-31 06:46] LABS: BUN Creatinine Ratio 20.7 (10-20); Creatinine Clr Calc Pharmacy 65.2 ml/min; Potassium 4.1 mmol/L (3.5-5.1)
[2024-07-31 08:10] VITALS: RESP 16; O2SAT 95
--- NOTE | 2024-07-31 09:27 | XRay Report ---
XR elbow LT min 3V routine CLINICAL HISTORY: recent radial head fracture, interval change COMPARISON: 06/21/2024. Findings: Coronoid process fracture and intra-articular radial head fracture has stable alignment. Th ere is a persistent joint effusion. IMPRESSION: Stable alignment. ACT 112: Negative or not required by law. Electronically signed by: Yohan Wright M.D. 07/31/2024 9:25 AM
[2024-07-31] MEDS: dexAMETHasone 4 MG TAB PO ONE (13:01)
--- NOTE | 2024-07-31 14:34 | Discharge Summary ---
Discharge Summary Date of Service date of admission - July 23, 2024 date of discharge - July 31, 2024 Principal Dx & Hospital Course #1 = Principal Diagnosis (1) Cellulitis of both lower extremities: marked improvement/resolved with use of IV antibiotic therapy. previously on cefepime & clindamycin --> both d/c on 07/28/24; transitioned to PO clindamycin at that time. within 24 hours of starting clindamycin she had a new rash on both legs. I was uncertain if the new rash was a drug allergy to clindamycin vs IV venofer as she received IV iron around the same time as clindamycin. due to this uncertainty clindamycin was stopped on 07/29/24 and changed to PO cefuroxime 500mg TID at that time. she will take cefuroxime for 1 week post-discharge. culture data from the left 3rd toe --> MSSA, group B strep, and proteus; all sensitive to 3rd gen cephalosporins - hence the cefuroxime moving forward. see #2 below re: gangrene of left 3rd toe. (2) Toe gangrene: the patient presented with a left 3rd toe wound. x-rays of the left foot demonstrated evidence of 3rd toe osteomyelitis. she was seen in consult by Dr Dougie Kumar, podiatry. on 07/25/24 patient underwent left third amputation by Dr Kumar. pathology from the toe showed clear margins. operative wound culture grew MSSA and Group B strep. she received IV antibiotics during the hospitalization, transitioning to PO cefuroxime at discharge. she will continue daily dressing changes at home. will need f/u with Dr Kumar post-d/c for recheck of the amputation site. an appointment was arranged for her for 08/07/24. (3) Iron deficiency anemia: received 2 doses of IV iron - 07/27 and 07/28 she developed a new rash on her legs on 07/28 - uncertain if due to IV iron vs clindamycin vs other after she developed this rash she received no further IV iron discharge hemoglobin was 13.4 (4) CKD (chronic kidney disease) stage 3, GFR 30-59 ml/min: stable Creatinine of 1.3 at time of discharge (5) Diabetes mellitus, type 2: Hba1c 5.9% c/w pre-DM made patient aware of this she has lost considerable amount of weight since her panniculectomy in 2023 she is not receiving any insulin or PO therapies for DM at this time (6) Perforated ear drum: Left side This occurred about 2 months prior will need ENT f/u post-d/c for such (7) Morbid obesity: BMI 44 (8) Chronic diastolic (congestive) heart failure: euvolemic at time of discharge did receive some diuresis while here she was asked to resume bumex at home -- 2mg qam cont metoprolol succinate 25mg daily echocardiogram performed while here showed preserved EF and mild aortic stenosis and preserved RV function (9) Postprandial nausea: present for several weeks before this admission etiology? gastroparesis? gastritis? other? added carafate QID to her PPI twice daily but she was still having the postprandial symptoms obtained CT abd/pelvis - severe constipation noted she was asked to start a bowel regimen to have 1-2 soft BMs/day miralax has not been effective for her thus add senna 2 tabs daily could consider additional agents such as lactulose or Linzess or other agent she has f/u with [facility] [place] 08/04/24 in clinic (10) 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: suffered such in 05/2024 [facility] has been managing last office visit - pt was told she could be out of a sling x-rays of the left elbow showed healing fracture and good alignment she should continue gentle ROM exercises of the left elbow and f/u with [facility] within 2 weeks of discharge (11) Diabetic foot ulcer: b/l plantar aspect chronic [facility] these ulcers were debrided by Dr Kumar at the time of her left 3rd toe amputation continue local wound care upon discharge home and f/u with [facility] as well as Dr Kumar (12) Rash: b/l legs, particularly her thighs drug rxn to IV venofer? drug rxn to clindamycin? other? both clindamycin & IV iron were stopped s/p IV steroids 07/28, 07/29, 07/30, and 07/31 at discharge the rash is fading she will complete a few more days of oral dexamethasone at home send back to Dr Marv Patel, [facility], as she has known h/o mast cell d/o, multiple allergies, etc. (13) Adnexal cyst: seen incidentally on CT abd/pelvis Left adnexal/ovarian cyst measuring 7.4cm dedicated pelvic u/s recommended in the near-future as outpatient Plan passed PT/OT evals can return home with home health Notes For Next Care Provider f/u Dr Kumar for Left 3rd toe amp f/u [facility] f/u [facility] f/u [facility] pelvic ultrasound for left adnexal cyst as seen on CT abd/pelvis Medication Changes From Visit Cefuroxime 500mg TID x 7 days Dexamethasone taper Carafate 1gm AC prn Senna 2 tabs daily Admission HPI Per Admitting Provider This is a 63 year old female with past medical history of arthritis, allergic rhinitis, gout, CHF, Type 2 DM, CKD, asthma who presented to the ED on 07/23 with a complaint of lower extremity edema and foot wound. Patient was seen and examined at bedside this afternoon. Patient reports that she has been having chills for approximately one week with no fevers. Then about 3 days ago she noticed that she had a new wound on her left 3rd toe. She routinely follows with the wound clinic for the remainder of her wounds but she reports this one was new. She also has had increased seeping and lower extremity edema/redness b/l. Her legs have been warm to the touch recently. She reports she has been having left foot pain as well. Patient stopped taking her Bumex outpatient for about a month. Reports she was losing too much weight. She denied SOB or CP. Denied abdominal pain or any urinary symptoms. While in the ED she was found to have osteomyelitis of her left 3rd toe. CXR read as negative. CBC w/o leukocytosis. Troponins were not elevated. Creatinine was within normal limits. ESR/CRP elevated She was given 2mg IV Bumex on admission along with Cefepime, flagyl and clindamycin. Discharge Exam gen - NAD, sitting in stacie, morbidly obese - looks good today neck - no JVD mouth - MMM heart - RRR, s1 s2, 1/6 systolic murmur LSB lungs - CTA b/l, no rales abd - soft NT ND BS+; large well-healed scar running horizontally along the inferior border of abdominal wall ext - trace edema b/l distal shins/feet, pulses 2+ b/l skin - clean-based ulcer over first MTP joint left foot; no surrounding cellulitis; clean-based ulcer 5th metatarsal plantar aspect left foot; similar clean-based ulcer 5th metatarsal plantar aspect right foot; stasis changes b/l distal shins; absent 3rd toe left foot; sutures intact; no drainage - looks same as yesterday. Fading maculopapular rash mainly inner thighs b/l legs and a small amount more distal legs - rash today is pink rather than red. No involvement of arms, abdominal wall or chest. Scattered scaly plaques on chest wall also improved Discharge Plan Discharge Items Patient Disposition: Home - Self-Care Reason For Visit: FOOT WOUND Discharge Diagnosis: 1. left 3rd toe bone infection with amputation by Dr Kumar 07/25/24 2. bilateral foot ulcers 3. cellulitis of legs bilaterally 4. drug reaction with rash on legs - either due to clindamycin vs IV iron - follow-up with Dr Patel recommended 5. constipation as seen on CT scan 6. recent left elbow fracture - healing 7. gastroesophageal reflux disease 8. congestive heart failure 9. perforated left ear drum Activity: As commented below Activity Comment: please use special surgical shoes at all times with ambulation Bathing Comment: keep left 3rd toe amputation site clean/dry; no tub baths; ok to shower Non-emergency contact: Primary Care Provider, Surgeon and Specialist Call non-emergency contact if: you have any medication questions, your symptoms worsen, you have a fever, your wound has increased redness, your wound has increased drainage and your wound pain has increased Follow-up/Referrals: Awilda Eric CRNP [Primary Care Provider] - 08/08/24 11:00 am Avani Holman PA-C [Physician [employer]] - 08/16/24 9:45 am Rosendo Monique PA-C [Physician [employer]] - 08/04/24 10:00 am (gastroenterology follow-up ) Dougie Kumar DPM [Physician] - 08/07/24 4:15 pm Wound Care,Nurse [Registered Nurse] - 08/07/24 8:00 am Diet: Heart Healthy Addtl Attending Provider Instructions: Ms Tristan, You were hospitalized due to infection of your 3rd toe on the left foot. Unfortunately your MRI of this foot showed that the infection had moved into the bone of the toe. You were given IV antibiotics and you were evaluated by Dr Dougie Kumar from podiatry. He recommended surgery for the toe. Thus, on 07/25/24 he performed amputation of the 3rd toe. Dr Kumar also cleaned up the ulcers on the bottom of both feet. Following surgery you were continued on IV antibiotics and then these were changed to oral antibiotics prior to discharge home. Other issues addressed while here included - fluid overload from congestive heart failure, nausea/bloating following meals (CT scan of the abdomen showed considerable amounts of stool), and a recheck of your recent left elbow fracture (x-rays were taken and show healing along with good alignment of the bones). During the stay you received 2 doses of IV iron. On 07/28 you developed a rash on your legs. It was uncertain if this was a drug reaction to clindamycin antibiotic or the IV iron. Either way your rash got better with steroids. Recommendations - 1. antibiotics for your recent foot infection - * cefuroxime 500mg three times daily x 7 days * most common side effect - diarrhea 2. steroids for drug reaction/rash on legs - * dexamethasone 2mg - take 1 tablet on 08/01, then 1 tablet on 08/02, then stop * take with food 3. diuretics for heart failure - * please resume your bumex (bumetanide) and take 2mg every morning * continue your spironolactone twice daily as previous * try to weigh yourself every morning on the same scale * if you gain more than 3 pounds over 1-[address] Wood know and she may need to adjust your diuretics 4. for heartburn - * carafate (sucralfate) 1gm before meals NEEDED 5. for constipation - * take iuaf-tyq-jurrqth senna (senokot) 2 tablets daily * shoot for at least 1 soft BM/day 6. continue your dressing changes daily to both feet as previous. With respect to the 3rd toe, left foot, amputation site - keep this covered with a sterile dressing of your choosing (4x4's with Kerlix dressing are both acceptable to use for this). You may use MADDIE wraps as desired to keep everything in place. 7. use your surgical shoes at all times with ambulation 8. it is OK to do range of motion exercises of the left elbow as tolerated to promote improved mobility of the arm 9. perforated ear drum on left - avoid getting water in the left ear (no tub baths, swimming, etc). Have your family doctor recheck your ear at time of follow-up and they can arrange ENT consultation if necessary. Follow-up appointments - see separate section Return to [facility] if - * you have fevers over 100 degrees * you have worsening redness, swelling, warmth, drainage, foul odor, etc from any wound of either foot * you have any concerns about the amputation site on the left foot * you have worsening shortness of breath * any other concerns It was our pleasure to care for you! -Dr Bethea Pending Studies at Discharge: No Stand-Alone Forms: My [facility], Smoking Cessation Medications and DC Order Prescriptions: New sennosides [Senokot] 8.6 mg Tablet 17.2 mg PO QAM Qty: 60 0RF Rx Instructions: purchase adst-hjx-thizvdc cefuroxime axetil 500 mg Tablet 500 mg PO TID 7 Days Qty: 21 0RF sucralfate [Carafate] 1 gram tablet 1 g PO AC PRN (Reason: heartburn) Qty: 30 0RF dexamethasone 2 mg tablet 2 mg PO DAILY Qty: 2 0RF Rx Instructions: take on 08/01 and 08/02 then stop. Take with food. Continued cholecalciferol (vitamin D3) [Vitamin D3] 50 mcg (2,000 unit) capsule 2,000 unit PO TID Qty: 270 1RF (DME) CPAP Supplies [facility] See Rx Instructions .Route Qty: 1 0RF Rx Instructions: As directed (DME) CPAP Machine Misc See Rx Instructions .Route Qty: 1 0RF Rx Instructions: As directed 11cm water pressure Jardiance 10 mg tablet 10 mg PO QAM Qty: 90 3RF Rx Instructions: for congestive heart failure montelukast [Singulair] 10 mg tablet 10 mg PO QPM Qty: 90 3RF albuterol sulfate [Ventolin HFA] 90 mcg/actuation HFA aerosol inhaler 2 puff INHALATION Q4H PRN (Reason: Shortness Of Breath Or Wheezing) Qty: 18 3RF famotidine [Pepcid] 20 mg tablet 20 mg PO HS Qty: 90 3RF allopurinol 100 mg tablet 100 mg PO BID Qty: 180 1RF pantoprazole [Protonix] 40 mg tablet,delayed release (DR/EC) 40 mg PO BID Qty: 90 3RF bupropion HCl 150 mg tablet extended release 24 hr 150 mg PO QAM Qty: 90 2RF gabapentin 400 mg capsule 400 mg PO QID Qty: 360 0RF multivitamin Tablet 1 tab PO QAM Qty: 90 1RF aspirin 81 mg tablet,delayed release (DR/EC) 81 mg PO QAM duloxetine [Cymbalta] 60 mg capsule,delayed release(DR/EC) 60 mg PO BID albuterol sulfate 2.5 mg /3 mL (0.083 %) solution for nebulization 2.5 mg inhalation Q6H PRN (Reason: Shortness Of Breath) Qty: 90 1RF Rx Instructions: needed cyanocobalamin (vitamin B-12) [Vitamin B-12] 1,000 mcg tablet 1,000 mcg PO QAM Tums 300 mg (750 mg) tablet,chewable 900 mg PO QAM diclofenac sodium [Voltaren Arthritis Pain] 1 % Gel 4 g EXT QID Qty: 1 0RF Rx Instructions: purchase ylon-zvc-cufagdg; may use 4 grams on your lower back, either knee, either hip, back of neck. nystatin 100,000 unit/gram powder 1 applic topical TID PRN (Reason: yeast rash under breasts, abdominal skin folds) Qty: 30 0RF cetirizine [Zyrtec] 10 mg tablet 10 mg PO BID potassium chloride [Klor-Con M20] 20 mEq tablet,ER particles/crystals 20 meq PO QAM hydroxyzine HCl 25 mg tablet 25 mg PO HS epinephrine 0.3 mg/0.3 mL auto-injector 0.3 mg IM UD PRN (Reason: anaphylaxis) acetaminophen 500 mg tablet 1,000 mg PO TID PRN (Reason: fever or pain) Qty: 90 0RF losartan 25 mg tablet 25 mg PO QAM nystatin 100,000 unit/gram ointment 1 applic EXT TID PRN (Reason: FLARE) spironolactone 25 mg tablet 25 mg PO BID metoprolol succinate 25 mg tablet extended release 24 hr 25 mg PO DAILY Changed bumetanide 1 mg tablet 2 mg PO QAM Qty: 0 0RF No Action buspirone 15 mg tablet 15 mg PO TID Rx Instructions: pt states she also take a 5 mg tab with this to make 20 MG? Discharge Orders: Discharge Order (Routine); Ordered 07/31/24 Ordered By: Candido Bethea Admission Data Admit Date/Time: 07/23/24 16:34 Attending Provider: Candido Bethea Admit Provider: Donald Serrano Primary Care Provider: Awilda Eric Other Providers: Dougie Kumar Other Interventions: Discharge Summary Assessment (RN) Last Done: 07/31/24 15:37 Hospital Stay Data Consultations Podiatry - Dr Dougie Kumar PT, OT Wound Care Procedures Performed Operation Date: 07/25/24 07:00 Actual Procedures Left Third Toe Amputation - Dougie Kumar DPM Bilateral Foot Ulcer Debridement - Dougie Kumar DPM Echocardiogram: Diagnostic Imagining Performed Chest X-Ray 07/23/24 15:19 EXAM: Radiograph of the Chest 1 View INDICATION: Foot swelling. Possible osteomyelitis. TECHNIQUE: Frontal view of the chest. COMPARISON: 02/16/2024 FINDINGS: Lungs and pleural spaces: No consolidation or pulmonary edema. No pleural effusion or pneumothorax. Heart: Stable large cardiac shadow. Mediastinum: Normal contour. Bones/joints: Visualized portion of right shoulder arthroplasty intact and well-seated. Soft tissues: No abnormality noted. No radiopaque foreign body noted. Upper abdomen: No abnormality noted. IMPRESSION: No acute cardiopulmonary disease. ACT 112: N/A Electronically signed by Brooklyn Javier 07-23-2024 3:51 PM Foot X-Ray 07/23/24 15:19 EXAM: Radiographs of the Left Foot Complete 3 Views INDICATION: Swelling. Third toe wound. TECHNIQUE: Frontal, lateral and oblique views of the left foot. COMPARISON: No relevant prior studies available. FINDINGS: Bones/joints: There is flattening deformity of the tuft of the third distal phalanx. No aggressive periosteal reaction noted. No fracture. There is mild plantar and Achilles surface calcaneal spurring. Soft tissues: Cutaneous ulceration noted over the third distal phalanx. There is a soft tissue gas collection plantar and lateral to the proximal fifth metatarsal. Generalized soft tissue swelling noted. No radiopaque foreign body noted. IMPRESSION: 1. Acute versus chronic osteomyelitis of the tuft of the third distal phalanx with overlying skin ulceration. 2. Generalized swelling with a soft tissue gas collection dorsal and lateral to the base of the fifth metatarsal. Abscess not excluded. ACT 112: N/A Electronically signed by Brooklyn Javier 07-23-2024 3:51 PM Foot MRI 07/23/24 17:12 Exam(s): MRI LEFT FOOT W/WO Contrast IV Amt: GADAVIST 15CC EXAM: MR Left Lower Extremity Without and With Intravenous Contrast, Foot CLINICAL HISTORY: gangrene left third toe, concern osteomyelitis. TECHNIQUE: Multiplanar magnetic resonance images of the left foot without and with intravenous contrast. CONTRAST: Patient received GADAVIST 15CC of IV contrast COMPARISON: No relevant prior studies available. FINDINGS: Bones/joints: Erosions and edema of the distal third phalanx are present. There is also edema of the distal first phalanx. Soft tissues: There is nonspecific subcutaneous edema. No organized fluid collection to suggest abscess. IMPRESSION: 1. Erosions and edema of the distal third phalanx are present. There is also edema of the distal first phalanx. These findings are consistent with osteomyelitis. 2. There is nonspecific subcutaneous edema. No organized fluid collection to suggest abscess. Electronically signed by: Francheska Lux MD 07/24/24 01:06 AM Abdomen/Pelvis CT 07/30/24 13:14 EXAMINATION: Abdomen and pelvis CT without CLINICAL HISTORY: Early satiety, abdominal pain, bloating PRIORS: 11/21/2023, 08/24/2023 CT abdomen TECHNIQUE: Contiguous axial images were obtained through the abdomen and pelvis without the use of intravenous contrast. Sagittal and coronal reformations are supplied. FINDINGS: Lung bases show no pleural effusion. Evaluation of solid organs is limited without the use of intravenous contrast. Allowing for this, the liver is enlarged measuring 20 cm, unchanged. The gallbladder is surgically absent. Stomach contains solid and liquid material is partly distended and morphologically unremarkable. No surrounding adenopathy. The noncontrast enhanced pancreas, spleen, adrenals, aorta and IVC are morphologically unremarkable. Advanced atherosclerotic disease of the celiac trunk, image 113, series 3. Nonobstructing renal calcifications present bilaterally. Moderate to high-grade atrophy of the right kidney, asymmetric with the left. An extremely large amount of formed stool is present throughout the colon. No dilated loops of bowel or pericolonic inflammatory change. No ascites or adenopathy. No dilated loops of small bowel. Urinary bladder is distended with normal morphology. A left adnexal cyst is present, image 44, series 2 measuring 5.6 x 4.9 x 7.4 Cm. No free fluid or adenopathy in the pelvis.uterus is atrophic. No right adnexal cyst. No abdominal, mesenteric or retroperitoneal adenopathy. In bone windows, osseous demineralization is noted with moderate to advanced degenerative change of the lumbar spine. No compression fracture. IMPRESSION: 1. No CT evidence of an acute abdominal or pelvic abnormality. 2. Extremely large amount of formed stool throughout the colon with no dilated loops of bowel or inflammatory change. 3. Left adnexal/ovarian cyst measuring 7.4 cm. Pelvic ultrasound is suggested which could be performed on an outpatient basis ACT 112: Positive. There are findings on this examination that require communication between the performing entity and the patient following Patient Test Result Information Act ([place] ACT 112) guidelines. Electronically signed by Theresa Sánchez 07-30-2024 3:05 PM Elbow X-Ray 07/31/24 07:55 XR elbow LT min 3V routine CLINICAL HISTORY: recent radial head fracture, interval change COMPARISON: 06/21/2024. Findings: Coronoid process fracture and intra-articular radial head fracture has stable alignment. There is a persistent joint effusion. IMPRESSION: Stable alignment. ACT 112: Negative or not required by law. Electronically signed by: Yohan Wright M.D. 07/31/2024 9:25 AM Pending Results Patient Have Any Pending Studies at Discharge: No Discharge Instructions Given to Patient (Per Discharging Provider) Ms Tristan, You were hospitalized due to infection of your 3rd toe on the left foot. Unfortunately your MRI of this foot showed that the infection had moved into the bone of the toe. You were given IV antibiotics and you were evaluated by Dr Dougie Kumar from podiatry. He recommended surgery for the toe. Thus, on 07/25/24 he performed amputation of the 3rd toe. Dr Kumar also cleaned up the ulcers on the bottom of both feet. Following surgery you were continued on IV antibiotics and then these were changed to oral antibiotics prior to discharge home. Other issues addressed while here included - fluid overload from congestive heart failure, nausea/bloating following meals (CT scan of the abdomen showed considerable amounts of stool), and a recheck of your recent left elbow fracture (x-rays were taken and show healing along with good alignment of the bones). During the stay you received 2 doses of IV iron. On 07/28 you developed a rash on your legs. It was uncertain if this was a drug reaction to clindamycin antibiotic or the IV iron. Either way your rash got better with steroids. Recommendations - 1. antibiotics for your recent foot infection - * cefuroxime 500mg three times daily x 7 days * most common side effect - diarrhea 2. steroids for drug reaction/rash on legs - * dexamethasone 2mg - take 1 tablet on 08/01, then 1 tablet on 08/02, then stop * take with food 3. diuretics for heart failure - * please resume your bumex (bumetanide) and take 2mg every morning * continue your spironolactone twice daily as previous * try to weigh yourself every morning on the same scale * if you gain more than 3 pounds over 1-[address] Wood know and she may need to adjust your diuretics 4. for heartburn - * carafate (sucralfate) 1gm before meals NEEDED 5. for constipation - * take mgcu-dpx-yestpup senna (senokot) 2 tablets daily * shoot for at least 1 soft BM/day 6. continue your dressing changes daily to both feet as previous. With respect to the 3rd toe, left foot, amputation site - keep this covered with a sterile dressing of your choosing (4x4's with Kerlix dressing are both acceptable to use for this). You may use MADDIE wraps as desired to keep everything in place. 7. use your surgical shoes at all times with ambulation 8. it is OK to do range of motion exercises of the left elbow as tolerated to promote improved mobility of the arm 9. perforated ear drum on left - avoid getting water in the left ear (no tub baths, swimming, etc). Have your family doctor recheck your ear at time of follow-up and they can arrange ENT consultation if necessary. Follow-up appointments - see separate section [facility] to [facility] if - * you have fevers over 100 degrees * you have worsening redness, swelling, warmth, drainage, foul odor, etc from any wound of either foot * you have any concerns about the amputation site on the left foot * you have worsening shortness of breath * any other concerns It was our pleasure to care for you! -Dr Bethea Total Time Total Time Spent Total Time Spent (In Minutes): 55 Coding Level of Care Code 17854 INP/OBS DISCH >30 MIN Diagnoses Cellulitis of both lower extremities L03.115; L03.116 Toe gangrene I96 Iron deficiency anemia D50.9 CKD (chronic kidney disease) stage 3, GFR 30-59 ml/min N18.31 Chronic kidney disease stage 3 subtype: stage 3a (GFR 45-59) Diabetes mellitus, type 2 E11.9 Perforated ear drum H72.90 Morbid obesity E66.01 Chronic diastolic (congestive) heart failure I50.32 Postprandial nausea R11.0 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 S52.042A Diabetic ulcer of midfoot associated with type 2 diabetes mellitus, with fat layer exposed, unspecified laterality E11.621; L97.402 Diabetes mellitus type: type 2 Diabetic foot ulcer location: midfoot Laterality: unspecified laterality Non-pressure ulcer stage: with fat layer exposed Rash R21 Adnexal cyst N94.9
[2024-07-31 16:20] VITALS: BP 113/66; PULSE 55; TEMP 98.2
--- NOTE | 2024-08-14 21:57 | Operative Report ---
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 I identified the patient and participated in the time-out.: Yes Procedure Operation Date: 07/25/24 07:00 Actual Procedures p Left Third Toe Amputation(Left) - Dougie Kumar DPM s Bilateral Foot Ulcer Debridement - Dougie Kumar DPM Surgeon Dougie Kumar DPM Fire Control Officer None Estimated Blood Loss 30 Findings Consistent with Post-Op Diagnosis Specimens Left third toe sent for pathology, including proximal margin, and bone culture/sensitivity Anesthesia Type MAC Complications none Disposition Accompanied Patient To Recovery: Yes Disposition: Recovery Room Indications This patient is a recent hospital consult of mine who I have seen in the past for ulcerations and infections, though has now failed outpatient treatment and has been readmitted with worsened bone infection. She is amenable to more definitive correction at this time. 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 We discussed, based on imaging and clinical exam findings, she would benefit most from amputation, rather than 2 more months of IV antibiotics. Preoperative instructions, postoperative instructions, relative risks, and outcomes were all discussed at length. All questions were answered. Consent was obtained. Description of Procedure Patient was brought to the operating room and left on her hospital bed for the duration of the surgery. The left lower extremity was scrubbed, prepped, and draped in the usual aseptic manner. No tourniquet was utilized during the duration of the case given the patient's vascular status. Attention was directed to the distal aspect of the left third toe where an ulceration was noted, extending to the distal phalanx. The toe was disarticulated at the level of the PIPJ utilizing sharp and blunt dissection techniques with care taken to cauterize and ligate any superficial bleeding vessels. The distal toe was sent to the back table in one specimen and further transected to obtain electronics parts sales representative samples for culture and sensitivity of the distal phalanx. With the extension of soft tissue infection past the PIPJ but the bone appearing viable, a proximal phalanx resection was performed at the surgical neck with a double action bone cutter. This was sent to pathology as a proximal margin. The surgical site was then flushed with copious amounts of sterile saline. The surgical site was closed primarily with 2-0 nylon in a simple interrupted fashion, given the clean surgical margins able to be obtained. Attention was directed to the plantar lateral aspect of the left foot where a neuropathic ulceration was noted. The wound was sharply debrided with a 15 blade through the subcutaneous tissue to the deep fascia. This did not extend to the bone. No local evidence of infection noted. The wound bed was able to be converted to 100% granular tissue. Attention was directed to the plantar lateral aspect of the right foot where a neuropathic ulceration was noted. The wound was sharply debrided with a 15 blade through the subcutaneous tissue to the deep fascia. This did not extend to the bone. No local evidence of infection noted. The wound bed was able to be converted to 100% granular tissue. The surgical sites were dressed with Xeroform gauze, 4 x 4 gauze, Kerlix, and an Emir wrap. The patient tolerated the procedure well and was transported to the recovery room with vitals stable and vascular status intact to the feet. Following postoperative monitoring, the patient will be given instructions discussed with her preoperatively and sent back to the floor for further evaluation and monitoring until he is medically stable I attest to the content of the Intraoperative Record and any orders documented therein. Any exceptions are noted below.
== END 2024-07-31 18:06 | disposition home or self-care (01) | DRG 255 ==
LOC: SUATTDRO → ED 14:36 → SUATTDRO 16:34 → EDINP 16:34 → 2W 19:35 → 2N 07-26 18:14

== ENCOUNTER 2024-09-01 11:33 | Inpatient (IN) ==
--- NOTE | 2024-09-01 12:16 | Emergency Department Note ---
Impression & Plan Diabetic foot infection, Ambulatory dysfunction ED Provider Note Provider: Dougie Martinez MD CHIEF COMPLAINT: Bilateral foot pain HISTORY OF PRESENT ILLNESS: Patient is a 63-year-old female history of anemia, heart failure, diabetes, osteomyelitis of the third toe status post amputation last month presenting here today referred from the wound clinic. The last 3 to 4 days worsening pain in the bilateral heels and plantar aspect of the foot. No trauma. Left worse than right. No fevers. No significant worsening of slight leg swelling bilaterally and is taking her diuretics. Pain with even ambulating a little bit. Wound of the left toe she states is doing well and saw her microscopist several days ago. To give her some new padded inserts for her feet but it hurts too much for her to walk much at all. Seen at wound care. Has been having some clearish to slightly bloody serous discharge from wounds on her feet. Finished Bactrim beginning of the week not currently on antibiotics. Tylenol home not helping with pain. PAST MEDICAL HISTORY: As noted above MEDICATIONS: Reviewed home medications SOCIAL HISTORY: Non-smoker PHYSICAL EXAM: GENERAL: alert and oriented in no acute distress on stretcher Head: normocephalic and atraumatic EYES: No injection, discharge or icterus. NECK: Trachea midline. ENT: Mucous membranes pink and moist. LUNGS: Airway patent. No retractions. Breath sounds clear HEART: Regular rate and rhythm. SKIN: Acyanotic, warm, dry, some chronic stasis changes to the bilateral lower extremities mild purplish erythema mid legs distally. 1 small lateral wound on the plantar aspect of the right foot about a centimeter and 2 wounds approximately 2 cm on the left foot at the base of the left great foot on the plantar aspect as well as laterally. The left third toe amputation site is well-healed without significant bleeding or wound appreciable at this time. Mild diffuse pain and tenderness without crepitus in the bilateral plantar feet but is quite tender here. The 3 open wound areas appear granulated without active bleeding or purulence. EXTREMITIES: Without swelling, tenderness or deformity NEUROLOGICAL: No focal deficits. No aphasia. No facial droop or slurred speech. Normal strength and tone in the extremities. Sensation to gross touch normal. Ambulatory. CONTINUOUS CARDIAC MONITORING: was ordered and showed a heart rate of 70s to 80s bpm in normal sinus rhythm Patient's laboratory studies and imaging reviewed. Differential includes Foreign body, fracture, dislocation, joint compromise, infection, soft tissue injury, tendon injury, vascular compromise, compartment syndrome, as well as other pathologies. IMPRESSION/MEDICAL DECISION MAKING: Does not appear severely fluid overload compared to the past. Doubt bilateral DVT at this time. No significant trauma history reported. Just had x-rays the other day without findings of osteomyelitis. Seems more concerning for possible soft tissue infections given that she finished antibiotics at the beginning of the week. No fever systemically reported however. Will obtain CTs to look for any fluid collections/abscesses developing in the feet. Inflammatory markers and blood culture sent. Given some fentanyl for pain. Blood work here without leukocytosis or anemia. No severe electrolyte abnormality noted within normal renal function today creatinine 1.05. CRP mildly elevated 1.8 but improved from previous. ESR improving as well at 53. CT without evidence of abscess or osteomyelitis. Findings concerning for cellulitis of the right heel. Significant pain again with attempts of ambulation and given her redness and swelling care discussed staying for observation and IV antibiotics at this time. Vancomycin and ceftriaxone ordered. She is in agreement with this plan. Discussed with the hospitalist team. DIAGNOSIS: Diabetic foot infection, ambulatory dysfunction, bilateral foot pain DISPOSITION: Hospitalist will evaluate Patient was agreeable with this plan. Past Med/Surg History Problem List (Updated 09/01/24 @ 18:02 by Dougie Martinez M.D.) Ambulatory dysfunction (Acute) Diabetic foot infection (Acute) Diabetic foot infection Left radial head fracture Diabetic ulcer of left foot Diabetic ulcer of right foot Venous ulcers of both lower extremities Adnexal cyst Postprandial nausea Chronic diastolic (congestive) heart failure Iron deficiency anemia Iron deficiency anemia Perforated ear drum Acute osteomyelitis of toe of left foot (Acute) Diabetic infection of left foot (Acute) Toe gangrene Cellulitis of both lower extremities 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 Status post panniculectomy Musculoskeletal pain Cellulitis of left leg (Acute) Weakness (Acute) Weight gain (Acute) CHF (congestive heart failure) (Acute) Panniculitis (Acute) Acute kidney injury superimposed on CKD Obesity (Acute) Failure of outpatient treatment (Acute) Cellulitis (Acute) Supraclavicular lymphadenopathy Acute on chronic heart failure with preserved ejection fraction Open wound of abdomen (Acute) Morbid obesity HAYES (dyspnea on exertion) (Acute) CKD (chronic kidney disease) stage 3, GFR 30-59 ml/min (Acute) Acute exacerbation of CHF (congestive heart failure) (Acute) Cellulitis (Acute) Cellulitis of suprapubic region Acute on chronic heart failure VARINDER (acute kidney injury) Osteoarthritis of hip Constipation Lymphoma Hip pain, right Failure of outpatient treatment (Acute) CRF (chronic renal failure) (Acute) Edema of both lower extremities (Acute) Fluid overload (Acute) Edema of abdominal wall (Acute) Ulcer of both feet Volume overload Hx MRSA infection 09/2021 s/p left knee infection > resolved > continues with doxycycline daily for prevention Lymphadenopathy of left cervical region Urticaria Chronic ulcer of left foot with fat layer exposed Diabetes mellitus type 2 with neurological manifestations Candidiasis of skin Solitary kidney, congenital Bilateral hip pain Low back pain Weakness (Acute) Lower extremity edema (Acute) CHF (congestive heart failure) (Acute) Abdominal pannus Fatty liver Dependent lymphedema Stage 3b chronic kidney disease Anemia reason for procedure. iron infusions recently. 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 Other ovarian cyst, left side Vitamin D deficiency Peripheral neuropathy Lumbar spinal stenosis 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- DISCOVERED WITH INCIDENTAL IMAGING Gout CKD (chronic kidney disease) stage 3, GFR 30-59 ml/min monitoring Chronic back pain Acid reflux Medical History Diabetic foot ulcer Abdominal wall cellulitis Hypokalemia Mast cell disease B-cell lymphoma Hx-TIA (transient ischemic attack) 2017 > ASA for prevention > no residual effects Hx of sepsis 09/2021 r/t left knee infection Hypertension Lumbar spinal stenosis Arthritis Allergic rhinitis Gout Other ovarian cyst, left side present, just monitoring Acid reflux Severe obstructive sleep apnea cpap Stage 3 chronic kidney disease follows with Dr. Wood Fatty liver CHF (congestive heart failure) follows with Ashlyn Griffin Solitary kidney, congenital Diabetes mellitus, type 2 Ulcer of foot one ulcer present to bottom of bilat feet > follows with wound clinic at [place], improving per pt History of COVID-19 09/2021 Iron deficiency anemia Venous stasis of both lower extremities MDD (major depressive disorder), recurrent episode, moderate Ambulatory dysfunction uses walker Depression with anxiety Degenerative joint disease, shoulder, right Lymphedema left leg and abdomen / chronic Asthma well controlled, rare res inh use Hyperlipidemia no meds Surgical History Hx of biopsy (12/29/23) Left Neck Lymph Node Biopsy(Left) - Yohan Maldonado, DO, FACS History of insertion of central venous access port removed in 2022 History of revision of total replacement of left knee joint History of cardiac cath remote hx over 20 yrs ago, no stents History of colonoscopy History of esophagogastroduodenoscopy (EGD) History of bilateral knee replacement (10/16/22) H/O knee surgery (12/2021) L knee washout w/ polyexchange S/P tonsillectomy and adenoidectomy Status post total shoulder arthroplasty (10/17/18) right History of carpal tunnel release B/L H/O ventral hernia repair History of appendectomy History of cholecystectomy Family History Mother Diabetes Coronary heart disease Myocardial infarction S/P CABG x 3 Hypertension Gallbladder disease Sister Hodgkins lymphoma Brother Kidney disease Grandmother Breast cancer Aunt Ovarian cancer Father , 02/11/20. Peripheral vascular disease Daughter Diabetes Other Cancer No family history of adverse response to anesthesia Denies family history of Prostate cancer Colorectal cancer Social History Smoking Status: Never smoker Tobacco Type: Cigarettes Age Started Using Tobacco: 22; Age Quit Using Tobacco: 24; packs per day: 1; Second Hand Exposure: No; Do You Dip or Chew Tobacco: No; Hx Alcohol Use: No Hx Substance Use: No Preferred Language: Colombian 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 Ability: Effective Visual Impairment: Limited Hearing Ability: Normal Learning Center Coordinator Required: No Beliefs That Will Affect Care: None marital status: marital status details: ; lives with parents & 1 daughter Current Living Situation: Family Current Living Situation Comment: Lives with mother & daughter current occupational status: disabled other: 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; 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 Feels Safe at Home: Yes Childhood Exposure to Second-Hand Smoke: No Diet: regular Diet Comment: regular caffeine: No Dental Care, Regularly: No Physical Activity Frequency: Does not Exercise Seatbelt Use: always Sunscreen Use: Yes Assistive Devices: CPAP, Glasses and Walker Allergies Allergies Allergy/AdvReac Type Severity Reaction Status Date / Time Corticosteroids Allergy Severe Anaphylaxis Unverified 09/01/24 09:54 (Glucocorticoids) clindamycin Allergy Intermediate Rash Verified 09/01/24 09:54 dog dander Allergy Intermediate Rash Verified 09/01/24 09:54 iron [From Venofer] Allergy Intermediate Rash Verified 09/01/24 09:54 morphine Allergy Intermediate mouth and Verified 09/01/24 09:54 face swells Penicillins Allergy Intermediate rash/hives Verified 09/01/24 09:54 adhesive Allergy Mild Skin rash Verified 09/01/24 09:54 localized zolpidem Allergy Unknown Unknown Verified 09/01/24 09:54 pregabalin AdvReac Intermediate "makes Verified 09/01/24 09:54 goofy" Home Meds Home Medications Medication Instructions Recorded Confirmed calcium carbonate (Tums) 900 mg PO QAM 03/03/22 09/01/24 cyanocobalamin (vitamin B-12) 1,000 mcg PO QAM 03/03/22 09/01/24 1,000 mcg tablet (Vitamin B-12) aspirin 81 mg tablet,delayed 81 mg PO QAM 06/25/23 09/01/24 release duloxetine 60 mg capsule,delayed 60 mg PO BID 06/25/23 09/01/24 release (Cymbalta) cetirizine 10 mg tablet (Zyrtec) 10 mg PO BID 10/20/23 09/01/24 potassium chloride 20 mEq 20 meq PO QAM 12/24/23 09/01/24 tablet,extended release(part/cryst) (Klor-Con M) epinephrine 0.3 mg/0.3 mL 0.3 mg IM UD PRN anaphylaxis 01/06/24 09/01/24 injection, auto-injector losartan 25 mg tablet 25 mg PO QAM 07/23/24 09/01/24 nystatin 100,000 unit/gram topical 1 applic EXT TID PRN FLARE 07/23/24 09/01/24 ointment metoprolol succinate 25 mg 25 mg PO DAILY 07/31/24 09/01/24 tablet,extended release 24 hr spironolactone 25 mg tablet 25 mg PO BID 07/31/24 09/01/24 buspirone 15 mg tablet 15 mg PO TID 08/01/24 09/01/24 bumetanide 1 mg tablet 2 mg PO QAM 09/01/24 09/01/24 cholecalciferol (vitamin D3) 50 2,000 unit PO DAILY 09/01/24 09/01/24 mcg (2,000 unit) capsule (Vitamin D3) hydroxyzine HCl 25 mg tablet 25 mg PO HS PRN Allergy Symptoms 09/01/24 09/01/24 sennosides 8.6 mg tablet (Senokot) 8.6 mg PO BID 09/01/24 09/01/24 Previous Rx's Medication Instructions Recorded albuterol sulfate 2.5 mg/3 mL 2.5 mg (3 mL) inhalation Q6H PRN 06/25/23 (0.083 %) solution for nebulization Shortness Of Breath #90 mL diclofenac sodium 1 % topical gel 4 g EXT QID #1 tube 08/30/23 (Voltaren Arthritis Pain) nystatin 100,000 unit/gram topical 1 applic topical TID PRN yeast 08/30/23 powder rash under breasts, abdominal skin folds #30 grams CPAP Supplies #1 ea 09/28/23 CPAP Machine #1 ea 09/29/23 empagliflozin 10 mg tablet 10 mg PO QAM #90 tabs 12/02/23 (Jardiance) montelukast 10 mg tablet 10 mg PO QPM #90 tabs 01/03/24 (Singulair) albuterol sulfate 90 mcg/actuation 2 puff inhalation Q4H PRN 01/04/24 aerosol inhaler (Ventolin HFA) Shortness Of Breath Or Wheezing #18 grams famotidine 20 mg tablet (Pepcid) 20 mg PO HS #90 tabs 01/10/24 acetaminophen 500 mg tablet 1,000 mg (2 x 500 mg) PO TID PRN 02/04/24 fever or pain #90 tabs allopurinol 100 mg tablet 100 mg PO BID #180 tabs 03/17/24 pantoprazole 40 mg tablet,delayed 40 mg PO BID #90 tabs 05/31/24 release (Protonix) bupropion HCl 150 mg 24 hr tablet, 150 mg PO QAM #90 tabs 06/08/24 extended release gabapentin 400 mg capsule 400 mg PO QID #360 caps 06/30/24 multivitamin 1 tab PO QAM #90 tabs 07/24/24 sucralfate 1 gram tablet (Carafate) 1 g PO AC PRN heartburn #30 tabs 07/31/24 Results & Data (ED) Vital Signs Vital Signs - 24 hr 09/01/24 11:47 09/01/24 12:12 09/01/24 13:12 Temperature 36.9 C Temperature Source Temporal Artery Scan Pulse Rate 72 75 Pulse Rate [Apical] 79 Pulse Rhythm [Apical] Pulse Strength [Apical] Respiratory Rate 20 18 Respiratory Effort / Characteristics Non-Labored Non-Labored Spontaneous Respiratory Depth Normal Normal Respiratory Pattern Regular Blood Pressure 152/81 H Blood Pressure [Right Arm] 131/70 Blood Pressure Mean 104 Blood Pressure Mean [Right Arm] 90 Blood Pressure Position [Right Arm] Pulse Oximetry 99 96 Oxygen Delivery Method Room Air Room Air Sepsis Recent Fever Within 48 Hours No Sepsis New/Unexplained Change in Mental Status No Sepsis Action Taken by Nursing No Action Required 09/01/24 15:00 09/01/24 16:11 09/01/24 17:00 Temperature Temperature Source Pulse Rate 74 Pulse Rate [Apical] 73 79 Pulse Rhythm [Apical] Regular Regular Pulse Strength [Apical] Normal Normal Respiratory Rate 14 20 Respiratory Effort / Characteristics Non-Labored Spontaneous Non-Labored Spontaneous Respiratory Depth Normal Normal Respiratory Pattern Regular Regular Blood Pressure Blood Pressure [Right Arm] 143/92 H 120/63 Blood Pressure Mean Blood Pressure Mean [Right Arm] 109 82 Blood Pressure Position [Right Arm] Lying Lying Pulse Oximetry 97 98 Oxygen Delivery Method Room Air Room Air Sepsis Recent Fever Within 48 Hours Sepsis New/Unexplained Change in Mental Status Sepsis Action Taken by Nursing Laboratory Data 09/01/24 12:30 09/01/24 13:47 Lab Results 09/01/24 09/01/24 Range/Units 12:30 13:47 WBC 7.80 (4.8-10.8) K/ul RBC 5.21 (4.20-5.40) M/uL Hgb 13.0 (12.0-16.0) g/dl Hct 41.1 (37.0-47.0) % MCV 78.9 L (80.0-100.0) fL MCH 25.0 (25.0-34.0) pg MCHC 31.6 L (32.0-36.0) g/dL RDW Std Deviation 49.2 H (36.4-46.3) fL RDW Coeff of Cleo 17.9 H (11.5-14.5) % Plt Count 273 (130-400) K/uL MPV 9.9 (9.4-12.4) fL Immature Gran % (Auto) 0.3 % Neut % (Auto) 65.8 % Lymph % (Auto) 23.2 % [place] % (Auto) 5.4 % Eos % (Auto) 4.9 % Baso % (Auto) 0.4 % Neut # (Auto) 5.14 (1.40-6.50) K/uL Lymph # (Auto) 1.81 (1.20-3.40) K/uL [place] # (Auto) 0.42 (0.11-0.59) K/uL Eos # (Auto) 0.38 (0.00-0.50) K/uL Baso # (Auto) 0.03 (0.00-0.20) K/uL Immature Gran # (Auto) 0.02 (0.01-0.20) K/uL ESR 53 H (0-30) mm/hr Sodium 140 (136-145) mmol/L Potassium TNP 3.8 Chloride 102 (98-107) mmol/L Carbon Dioxide 34 H (21-32) mmol/L Anion Gap 4 (3-11) BUN 13 (6-23) mg/dl Creatinine 1.05 (0.6-1.2) mg/dl Est Cr Clr Drug Dosing 87.9 ml/min eGFR 60.45 BUN/Creatinine Ratio 12.4 (10-20) Glucose 76 (70-99(Fasting)) mg/dl Calcium 8.7 (8.6-10.3) mg/dl Total Bilirubin 0.5 (0.2-1.0) mg/dl AST TNP 16 ALT 18 (7-52) U/L Alkaline Phosphatase 90 (34-104) U/L C-Reactive Protein 1.87 H (0-0.5) mg/dl Total Protein 7.3 (6.0-8.3) gm/dl Albumin 3.8 (3.4-5.0) gm/dl Globulin 3.5 (2.5-4.0) gm/dl Albumin/Globulin Ratio 1.1 (0.9-2) Procalcitonin Cancelled 0.04 Administered Medications Discontinued Medications Enoxaparin Sodium (Enoxaparin Inj 40 Mg/0.4 Ml Syr) 40 mg SQ NOW ONE Stop: 09/01/24 15:16 Last Admin: 09/01/24 15:54 Dose: 40 mg Documented By: SHANT Fentanyl Citrate (Fentanyl Citrate Pf 100 Mcg/2 Ml Vial) 75 mcg IV NOW STA Stop: 09/01/24 12:00 Last Admin: 09/01/24 12:40 Dose: 75 mcg Documented By: AMBER Fentanyl Citrate (Fentanyl Citrate Pf 100 Mcg/2 Ml Vial) 50 mcg IV NOW STA Stop: 09/01/24 14:35 Last Admin: 09/01/24 14:43 Dose: 50 mcg Documented By: MADDIE Ceftriaxone Sodium (Rocephin) 2,000 mg in 50 mls @ 100 mls/hr IV NOW STA Stop: 09/01/24 15:02 Last Admin: 09/01/24 14:43 Dose: 100 mls/hr Documented By: MADDIE Vancomycin HCl 2,750 mg/ (Sodium Chloride) 555 mls @ 200 mls/hr IV NOW ONE Stop: 09/01/24 17:19 Last Admin: 09/01/24 15:16 Dose: 200 mls/hr Documented By: AMBER Ioversol (Optiray 320 125ml) 119 ml IV ONCE ONE Stop: 09/01/24 13:32 Last Admin: 09/01/24 13:36 Dose: 119 ml Documented By: PRINCE Oxycodone HCl (Oxycodone Hcl Ir 5 Mg Tab (Immediate Release)) 5 mg PO NOW STA Stop: 09/01/24 15:27 Last Admin: 09/01/24 15:54 Dose: 5 mg Documented By: SHANT Imaging Data Radiologist's Impression: Foot CT 09/01/24 12:11 CT foot LT w con CLINICAL HISTORY: pain heel, concern infection, recent amputation COMPARISON STUDY: X-ray of 08/29/2024 and MRI of 07/23/2024. FINDINGS: There is stable amputation at the proximal aspect of the third proximal phalanx. No acute fracture or dislocation seen. No evidence of osteomyelitis. There is diffuse subcutaneous edema. There is a soft tissue ulcer adjacent to the plantar base of the fifth metatarsal. No soft tissue abscess seen. IMPRESSION: No soft tissue abscess or osteomyelitis seen. ACT 112: Negative or not required by law. Electronically signed by: oYhan Wright M.D. 09/01/2024 1:[address] 09/01/24 12:11 CT foot RT w con HISTORY: 63 years-old Female pain heel, concern infection acute soft tissue infection of the right lower extremity COMPARISON: Foot radiographs 08/29/2024 TECHNIQUE: Multiple axial CT images of the right foot were obtained with IV contrast. A dose lowering technique was used consistent with the principals of ISELA. FINDINGS: 11 mm cutaneous ulcer of the lateral forefoot official to the base of the fifth metatarsal. Moderate adjacent sialitis with subcutaneous edema noted circumferentially throughout the foot and ankle. No drainable fluid collections are seen. Heterogeneity within the subcutaneous tissues includes a 1.6 cm focus of the posterolateral ankle on image 28 series 6, possibly a small phlegmon. Tendons and ligaments are suboptimally evaluated by CT technique. Mild to moderate osteoarthritis of the midfoot and hindfoot. Large calcaneal enthesophytes are noted. No acute fracture, dislocation or osseous erosions identified. IMPRESSION: 1. Cellulitis with lateral cutaneous ulcer superficial to the base of the fifth metatarsal. 2. No discrete abscess identified at this time. 3. No CT evidence of acute osteomyelitis. ACT 112: Negative or not required by law. The above report was generated using voice recognition software. It may contain grammatical, syntax or spelling errors. Electronically signed by: Reinaldo Todd M.D. 09/01/2024 1:59 PM Discharge Plan Visit Data Chief Complaint: Wound Stated Complaint: SORE/BLEEDING FEET ED Provider: Dougie Martinez Discharge Problem: Diabetic foot infection, Ambulatory dysfunction Patient Disposition: Being Evaluated by Hospitalist Forms Stand Alone Forms: [facility] Prescriptions Prescriptions: No Action (DME) CPAP Supplies Misc See Rx Instructions .Route Qty: 1 0RF Rx Instructions: As directed (DME) CPAP Machine Misc See Rx Instructions .Route Qty: 1 0RF Rx Instructions: As directed 11cm water pressure Jardiance 10 mg tablet 10 mg PO QAM Qty: 90 3RF Rx Instructions: for congestive heart failure montelukast [Singulair] 10 mg tablet 10 mg PO QPM Qty: 90 3RF albuterol sulfate [Ventolin HFA] 90 mcg/actuation HFA aerosol inhaler 2 puff INHALATION Q4H PRN (Reason: Shortness Of Breath Or Wheezing) Qty: 18 3RF famotidine [Pepcid] 20 mg tablet 20 mg PO HS Qty: 90 3RF allopurinol 100 mg tablet 100 mg PO BID Qty: 180 1RF pantoprazole [Protonix] 40 mg tablet,delayed release (DR/EC) 40 mg PO BID Qty: 90 3RF bupropion HCl 150 mg tablet extended release 24 hr 150 mg PO QAM Qty: 90 2RF gabapentin 400 mg capsule 400 mg PO QID Qty: 360 0RF multivitamin Tablet 1 tab PO QAM Qty: 90 1RF aspirin 81 mg tablet,delayed release (DR/EC) 81 mg PO QAM duloxetine [Cymbalta] 60 mg capsule,delayed release(DR/EC) 60 mg PO BID albuterol sulfate 2.5 mg /3 mL (0.083 %) solution for nebulization 2.5 mg inhalation Q6H PRN (Reason: Shortness Of Breath) Qty: 90 1RF Rx Instructions: needed buspirone 15 mg tablet 15 mg PO TID Rx Instructions: pt states she also take a 5 mg tab with this to make 20 MG? cyanocobalamin (vitamin B-12) [Vitamin B-12] 1,000 mcg tablet 1,000 mcg PO QAM Tums 300 mg (750 mg) tablet,chewable 900 mg PO QAM diclofenac sodium [Voltaren Arthritis Pain] 1 % Gel 4 g EXT QID Qty: 1 0RF Rx Instructions: purchase [id number]; may use 4 grams on your lower back, either knee, either hip, back of neck. nystatin 100,000 unit/gram powder 1 applic topical TID PRN (Reason: yeast rash under breasts, abdominal skin folds) Qty: 30 0RF sennosides [Senokot] 8.6 mg tablet 8.6 mg PO BID Rx Instructions: purchase [id number] bumetanide 1 mg tablet 2 mg PO QAM hydroxyzine HCl 25 mg tablet 25 mg PO HS PRN (Reason: Allergy Symptoms) cholecalciferol (vitamin D3) [Vitamin D3] 50 mcg (2,000 unit) capsule 2,000 unit PO DAILY cetirizine [Zyrtec] 10 mg tablet 10 mg PO BID potassium chloride [Klor-Con M20] 20 mEq tablet,ER particles/crystals 20 meq PO QAM epinephrine 0.3 mg/0.3 mL auto-injector 0.3 mg IM UD PRN (Reason: anaphylaxis) acetaminophen 500 mg tablet 1,000 mg PO TID PRN (Reason: fever or pain) Qty: 90 0RF losartan 25 mg tablet 25 mg PO QAM nystatin 100,000 unit/gram ointment 1 applic EXT TID PRN (Reason: FLARE) sucralfate [Carafate] 1 gram tablet 1 g PO AC PRN (Reason: heartburn) Qty: 30 0RF spironolactone 25 mg tablet 25 mg PO BID metoprolol succinate 25 mg tablet extended release 24 hr 25 mg PO DAILY Referrals Referrals: Awilda Eric CRNP [Primary Care Provider] -
[2024-09-01] MEDS: fentaNYL citrate PF 100 MCG/2 ML VIAL IV STA ×2 (12:40→14:43)
[2024-09-01 12:58] LABS: Basophils # (auto) 0.03 K/uL (0.00-0.20); Basophils % (auto) 0.4 %; Eosinophils # (auto) 0.38 K/uL (0.00-0.50); Eosinophils % (auto) 4.9 %; Hematocrit (blood only) 41.1 % (37.0-47.0); Immature Granulocytes # (auto) 0.02 K/uL (0.01-0.20); Immature Granulocytes % (auto) 0.3 %; Lymphocytes # (auto) 1.81 K/uL (1.20-3.40); Lymphocytes % (auto) 23.2 %; Mean Corpuscular Hgb Conc 31.6 g/dL (32.0-36.0); Mean Corpuscular Volume 78.9 fL (80.0-100.0); Mean Platelet Volume 9.9 fL (9.4-12.4); Monocytes # (auto) 0.42 K/uL (0.11-0.59); Monocytes % (auto) 5.4 %; Neutrophils # (auto) 5.14 K/uL (1.40-6.50); Neutrophils % (auto) 65.8 %; Platelet Count 273 K/uL (130-400); RDW Coefficient of Variation 17.9 % (11.5-14.5); RDW Standard Deviation 49.2 fL (36.4-46.3); Red Blood Count 5.21 M/uL (4.20-5.40)
[2024-09-01 13:06] LABS: Albumin Level 3.8 gm/dl (3.4-5.0); Anion Gap 4 (3-11); Bilirubin,Total 0.5 mg/dl (0.2-1.0); Calcium 8.7 mg/dl (8.6-10.3); Carbon Dioxide 34 mmol/L (21-32); Chloride 102 mmol/L (98-107); Sodium 140 mmol/L (136-145)
[2024-09-01 13:11] LABS: Alanine Aminotransferase 18 U/L (7-52); Albumin Globulin Ratio 1.1 (0.9-2); Alkaline Phosphatase 90 U/L (34-104); BUN Creatinine Ratio 12.4 (10-20); Blood Urea Nitrogen 13 mg/dl (6-23); C Reactive Protein 1.87 mg/dl (0-0.5); Creatinine Clr Calc Pharmacy 87.9 ml/min; Globulin 3.5 gm/dl (2.5-4.0); Glucose 76 mg/dl (70-99(Fasting)); Total Protein 7.3 gm/dl (6.0-8.3)
[2024-09-01] MEDS: OPTIRAY 320 125ml IV ONE (13:36)
--- NOTE | 2024-09-01 13:57 | CT Scan Report ---
CT foot LT w con CLINICAL HISTORY: pain heel, concern infection, recent amputation COMPARISON STUDY: X-ray of 08/29/2024 and MRI of 07/23/2024. FINDINGS: There is stable amputation at the proximal aspect of the third proximal phalanx. No acute f racture or dislocation seen. No evidence of osteomyelitis. There is diffuse subcutaneous edema. There is a soft tissue ulcer adjacent to the plantar base of the fifth metatarsal. No soft tissue abscess seen. IMPRESSION: No soft tissue abscess or osteomyelitis seen. ACT 112: Negative or not required by law. Electronically signed by: Yohan Wright M.D. 09/01/2024 1:56 PM
--- NOTE | 2024-09-01 14:01 | CT Scan Report ---
CT foot RT w con HISTORY: 63 years-old Female pain heel, concern infection acute soft tissue infection of the right l ower extremity COMPARISON: Foot radiographs 08/29/2024 TECHNIQUE: Multiple axial CT images of the right foot were obtained with IV contrast. A dose lowering technique was used consistent with the principals of ISELA. FINDINGS: 11 mm cutaneous ulcer of the lateral forefoot official to the base of the fifth metatarsal. Moderate adjacent sialitis with subcutaneous edema noted circumferentially throughout the foot and ankle. No d rainable fluid collections are seen. Heterogeneity within the subcutaneous tissues includes a 1.6 cm focus of the posterolateral ankle on image 28 series 6, possibly a small phlegmon. Tendons and ligame nts are suboptimally evaluated by CT technique. Mild to moderate osteoarthritis of the midfoot and hindfoot. Large calcaneal enthesophytes are noted. No acute fracture, dislocation or osseous erosions identified. IMPRESSION: 1. Cellulitis with lateral cutaneous ulcer superficial to the base of the fifth metatarsal. 2. No discrete abscess identified at this time. 3. No CT evidence of acute osteomyelitis. ACT 112: Negative or not required by law. The above report was generated using voice recognition software. It may contain grammatical, syntax o r spelling errors. Electronically signed by: Reinaldo Todd M.D. 09/01/2024 1:59 PM
[2024-09-01 14:19] LABS: Potassium 3.8 mmol/L (3.5-5.1)
--- NOTE | 2024-09-01 14:30 | History & Physical Report ---
Date of Service September 01, 2024 Assessment & Plan (1) Cellulitis: (2) Diabetic foot infection: (3) CHF (congestive heart failure): (4) CKD (chronic kidney disease) stage 3, GFR 30-59 ml/min: (5) Acid reflux: (6) Congenital kidney disease: (7) Hypertension: (8) Dyslipidemia: (9) Severe obstructive sleep apnea: (10) Lower extremity edema: (11) Diabetes mellitus, type 2: Plan Cellulitis of both lower extremities, b/l feet, diabetic ulcer- sent by wound center w/ recent completion Bactrim last week (prior sent on Cefuroxime s/p amputation based on cx data and prednisone taper), no current drainage for cx ESR/CRP elevated but improved from prior, 53 1.87. Procal 0.04 Imaging w/ CT w/o evidence for osteo or definitive abscess reported HOWEVER does note heterogeneity within the subcutaneous tissues includes a 1.6 cm focus of the posterolateral ankle, possibly small phlegmon S/p Cefepime, Vanco in ER -will continue broad spectrum given report improvement w/ Bactrim and hx MRSA to knee in past (?if to be on chronic suppresion) Blood cx pending from ER Continue Vanco/Cefepime (hx MRSA in knee in the past, ?prior chronic doxy use reported in system and will need to f/u discussion if was ?to be resumed following completion of prior) Podiatry consult placed -- messaged Dr Kumar who did prior surgery but he is out of town until Wednesday and have changed consult to Dr Somers. ?I&D or aspiration phlegmon Wound care, Elevation, WB as ashu for now w/ assistance Pain control Continue diuretics ?need for vascular studies w/ ongoing infection if not improvement w/ above Monitor labs/exam on repeat #DM II - w A1c 5.9, well controlled. On Jardiance (also w/ HF as below) - BSG AC/HS, SSI while inpatient. - Remains on Gabapentin 400mg QID but suspect benefit if able to be lowered. Does have CKD 3 at baseline but clearance at 60 and acceptable to continue for now. #CHF - Hx HfPEF, continues on bumex/spironolactone, metoprolol, losartan. -Weights slightly up and will give additional dose bumex for this evening and continue usual meds w/ exception Jardiance for now but can be resumed for DM control pending repeat eval/BSGs #ANDRZEJ - continue CPAP HS #GERD- continue PPI BID, carafate, pepcid HS #Allergies- continue montelukast DVT Proph: Lovenox SQ while inpatient FULL CODE as discussed w/ patient Dispo: admission for IV abx/podiatry evaluation, wound care and therapy evaluations Note, last admission dc w/ recs for dedicated pelvic u/s in the near-future as outpatient for L sided adnexal lesion (5.5x5.0x7.4cm) on prior abdominal imaging --> should be arranged in f/u at [facility] [place] neck recently also noting "unchanged L supraclavicular lymphadenopathy" Also note CTAP w/ multiple subcentimeter cyst in pancreatic parenchyma History of Present Illness Chief Complaint: bilateral foot pain, ref from wound center Primary Care Provider: CARRIE Monaco 63yo female presented at referral from wound clinic for 3-4 days worsening pain in bilateral heels and plantar aspect of foot. Hx notable for OM of third toe s/p amputation last month with Dr Kumar on 07/25. Prior CX from hospitalization in July w/ MSSA, group B strep and proteus, a ll sensitive to cephalosporins and was sent on Cefuroxime at [facility] Left worse than right, worse with ambulating. Slight b/l leg swelling and on diuretics. Wound of L toe doing well since podiatry several days ago and to give some new padded inserts but hurting too much to walk. Having clear to bloody serous discharge from wounds on feet and reports finishing Bactrim on Wednesday of this week, had reported improved on that but then worsened once off. No fevers at home. Typically takes Tylenol for pain but was given tramadol last admission but even that didn't help at home. Reports had gotten oxycodone before and willing to try. Does have rash to her chest from last admission but reports has been improved from them but using nystatin on it. Discussed will monitor but may need some steroids per prior admission note but will monitor for now. Encouraged to avoid picking/scratching. She does report the worst pain is to her LEFT ankle, posterior aspect but does have b/l foot pain causing issues with ambulation. Vanco/Cefepime IV ordered by ER provider and discussed will continue given hx MRSA in knee in the past and consult podiatry/wound care and therapy evaluations. Uses CPAP HS, reports compliance w/ diuretics and some weight gain but no hypoxia and will monitor for additional dosing pending repeat evals. Is a full code. Allergies Allergy/AdvReac Type Severity Reaction Status Date / Time Corticosteroids Allergy Severe Anaphylaxis Unverified 09/01/24 09:54 (Glucocorticoids) clindamycin Allergy Intermediate Rash Verified 09/01/24 09:54 dog dander Allergy Intermediate Rash Verified 09/01/24 09:54 iron [From Venofer] Allergy Intermediate Rash Verified 09/01/24 09:54 morphine Allergy Intermediate mouth and Verified 09/01/24 09:54 face swells Penicillins Allergy Intermediate rash/hives Verified 09/01/24 09:54 adhesive Allergy Mild Skin rash Verified 09/01/24 09:54 localized zolpidem Allergy Unknown Unknown Verified 09/01/24 09:54 pregabalin AdvReac Intermediate "makes Verified 09/01/24 09:54 goofy" Home Medications Medication Instructions Recorded Confirmed Type calcium carbonate (Tums) 900 mg PO QAM 03/03/22 09/01/24 History cyanocobalamin (vitamin B-12) 1,000 mcg PO QAM 03/03/22 09/01/24 History 1,000 mcg tablet (Vitamin B-12) albuterol sulfate 2.5 mg/3 mL 2.5 mg (3 mL) inhalation Q6H PRN 06/25/23 09/01/24 Rx (0.083 %) solution for nebulization Shortness Of Breath #90 mL aspirin 81 mg tablet,delayed 81 mg PO QAM 06/25/23 09/01/24 History release duloxetine 60 mg capsule,delayed 60 mg PO BID 06/25/23 09/01/24 History release (Cymbalta) diclofenac sodium 1 % topical gel 4 g EXT QID #1 tube 08/30/23 09/01/24 Rx (Voltaren Arthritis Pain) nystatin 100,000 unit/gram topical 1 applic topical TID PRN yeast 08/30/23 09/01/24 Rx powder rash under breasts, abdominal skin folds #30 grams CPAP Supplies #1 ea 09/28/23 09/01/24 Rx CPAP Machine #1 ea 09/29/23 09/01/24 Rx cetirizine 10 mg tablet (Zyrtec) 10 mg PO BID 10/20/23 09/01/24 History empagliflozin 10 mg tablet 10 mg PO QAM #90 tabs 12/02/23 09/01/24 Rx (Jardiance) potassium chloride 20 mEq 20 meq PO QAM 12/24/23 09/01/24 History tablet,extended release(part/cryst) (Klor-Con M) montelukast 10 mg tablet 10 mg PO QPM #90 tabs 01/03/24 09/01/24 Rx (Singulair) albuterol sulfate 90 mcg/actuation 2 puff inhalation Q4H PRN 01/04/24 09/01/24 Rx aerosol inhaler (Ventolin HFA) Shortness Of Breath Or Wheezing #18 grams epinephrine 0.3 mg/0.3 mL 0.3 mg IM UD PRN anaphylaxis 01/06/24 09/01/24 History injection, auto-injector famotidine 20 mg tablet (Pepcid) 20 mg PO HS #90 tabs 01/10/24 09/01/24 Rx acetaminophen 500 mg tablet 1,000 mg (2 x 500 mg) PO TID PRN 02/04/24 09/01/24 Rx fever or pain #90 tabs allopurinol 100 mg tablet 100 mg PO BID #180 tabs 03/17/24 09/01/24 Rx pantoprazole 40 mg tablet,delayed 40 mg PO BID #90 tabs 05/31/24 09/01/24 Rx release (Protonix) bupropion HCl 150 mg 24 hr tablet, 150 mg PO QAM #90 tabs 06/08/24 09/01/24 Rx extended release gabapentin 400 mg capsule 400 mg PO QID #360 caps 06/30/24 09/01/24 Rx losartan 25 mg tablet 25 mg PO QAM 07/23/24 09/01/24 History nystatin 100,000 unit/gram topical 1 applic EXT TID PRN FLARE 07/23/24 09/01/24 History ointment multivitamin 1 tab PO QAM #90 tabs 07/24/24 09/01/24 Rx metoprolol succinate 25 mg 25 mg PO DAILY 07/31/24 09/01/24 History tablet,extended release 24 hr spironolactone 25 mg tablet 25 mg PO BID 07/31/24 09/01/24 History sucralfate 1 gram tablet (Carafate) 1 g PO AC PRN heartburn #30 tabs 07/31/24 09/01/24 Rx buspirone 15 mg tablet 15 mg PO TID 08/01/24 09/01/24 History bumetanide 1 mg tablet 2 mg PO QAM 09/01/24 09/01/24 History cholecalciferol (vitamin D3) 50 2,000 unit PO DAILY 09/01/24 09/01/24 History mcg (2,000 unit) capsule (Vitamin D3) hydroxyzine HCl 25 mg tablet 25 mg PO HS PRN Allergy Symptoms 09/01/24 09/01/24 History sennosides 8.6 mg tablet (Senokot) 8.6 mg PO BID 09/01/24 09/01/24 History Past Med/Surg History Problem List Mass of soft tissue of ankle Ambulatory dysfunction (Acute) Diabetic foot infection (Acute) Diabetic foot infection Left radial head fracture Diabetic ulcer of left foot Diabetic ulcer of right foot Venous ulcers of both lower extremities Adnexal cyst Postprandial nausea Chronic diastolic (congestive) heart failure Iron deficiency anemia Iron deficiency anemia Perforated ear drum Acute osteomyelitis of toe of left foot (Acute) Diabetic infection of left foot (Acute) Toe gangrene Cellulitis of both lower extremities 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 Status post panniculectomy Musculoskeletal pain Cellulitis of left leg (Acute) Weakness (Acute) Weight gain (Acute) CHF (congestive heart failure) (Acute) Panniculitis (Acute) Acute kidney injury superimposed on CKD Obesity (Acute) Failure of outpatient treatment (Acute) Cellulitis (Acute) Supraclavicular lymphadenopathy Acute on chronic heart failure with preserved ejection fraction Open wound of abdomen (Acute) Morbid obesity HAYES (dyspnea on exertion) (Acute) CKD (chronic kidney disease) stage 3, GFR 30-59 ml/min (Acute) Acute exacerbation of CHF (congestive heart failure) (Acute) Cellulitis (Acute) Cellulitis of suprapubic region Acute on chronic heart failure VARINDER (acute kidney injury) Osteoarthritis of hip Constipation Lymphoma Hip pain, right Failure of outpatient treatment (Acute) CRF (chronic renal failure) (Acute) Edema of both lower extremities (Acute) Fluid overload (Acute) Edema of abdominal wall (Acute) Ulcer of both feet Volume overload Hx MRSA infection 09/2021 s/p left knee infection > resolved > continues with doxycycline daily for prevention Lymphadenopathy of left cervical region Urticaria Chronic ulcer of left foot with fat layer exposed Diabetes mellitus type 2 with neurological manifestations Candidiasis of skin Solitary kidney, congenital Bilateral hip pain Low back pain Weakness (Acute) Lower extremity edema (Acute) CHF (congestive heart failure) (Acute) Abdominal pannus Fatty liver Dependent lymphedema Stage 3b chronic kidney disease Anemia reason for procedure. iron infusions recently. 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 Other ovarian cyst, left side Vitamin D deficiency Peripheral neuropathy Lumbar spinal stenosis 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- DISCOVERED WITH INCIDENTAL IMAGING Gout CKD (chronic kidney disease) stage 3, GFR 30-59 ml/min monitoring Chronic back pain Acid reflux Medical History Diabetic foot ulcer Abdominal wall cellulitis Hypokalemia Mast cell disease B-cell lymphoma Hx-TIA (transient ischemic attack) 2017 > ASA for prevention > no residual effects Hx of sepsis 09/2021 r/t left knee infection Hypertension Lumbar spinal stenosis Arthritis Allergic rhinitis Gout Other ovarian cyst, left side present, just monitoring Acid reflux Severe obstructive sleep apnea cpap Stage 3 chronic kidney disease follows with Dr. Wood Fatty liver CHF (congestive heart failure) follows with Ashlyn Griffin Solitary kidney, congenital Diabetes mellitus, type 2 Ulcer of foot one ulcer present to bottom of bilat feet > follows with wound clinic at [place], improving per pt History of COVID-19 09/2021 Iron deficiency anemia Venous stasis of both lower extremities MDD (major depressive disorder), recurrent episode, moderate Ambulatory dysfunction uses walker Depression with anxiety Degenerative joint disease, shoulder, right Lymphedema left leg and abdomen / chronic Asthma well controlled, rare res inh use Hyperlipidemia no meds Surgical History Hx of biopsy (12/29/23) Left Neck Lymph Node Biopsy(Left) - Yohan Maldonado DO, FACS History of insertion of central venous access port removed in 2022 History of revision of total replacement of left knee joint History of cardiac cath remote hx over 20 yrs ago, no stents History of colonoscopy History of esophagogastroduodenoscopy (EGD) History of bilateral knee replacement (10/16/22) H/O knee surgery (12/2021) L knee washout w/ polyexchange S/P tonsillectomy and adenoidectomy Status post total shoulder arthroplasty (10/17/18) right History of carpal tunnel release B/L H/O ventral hernia repair History of appendectomy History of cholecystectomy Family History Mother Diabetes Coronary heart disease Myocardial infarction S/P CABG x 3 Hypertension Gallbladder disease Sister Hodgkins lymphoma Brother Kidney disease Grandmother Breast cancer Aunt Ovarian cancer Father , 02/11/20. Peripheral vascular disease Daughter Diabetes Other Cancer No family history of adverse response to anesthesia Denies family history of Prostate cancer Colorectal cancer Social History Smoking Status: Never smoker Age Started Using Tobacco: 22; Age Quit Using Tobacco: 24; packs per day: 1; Second Hand Exposure: No; Do You Dip or Chew Tobacco: No; Hx Alcohol Use: No Hx Substance Use: No Preferred Language: [place] Islander 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 Ability: Effective Visual Impairment: Limited Hearing Ability: Normal Boring Machine Set Up Operator Required: No Beliefs That Will Affect Care: None marital status: marital status details: ; lives with parents & 1 daughter Current Living Situation: Family Current Living Situation Comment: Lives with mother & daughter current occupational status: disabled other: 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; 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 Feels Safe at Home: Yes Childhood Exposure to Second-Hand Smoke: No Diet: regular Diet Comment: regular caffeine: No Dental Care, Regularly: No Physical Activity Frequency: Does not Exercise Seatbelt Use: always Sunscreen Use: Yes Assistive Devices: Walker Physical Exam Physical Exam: General: 63yo obese female laying in bed, reporting pain to her feet/legs (worse on the left/posterior) HEENT; head atraumatic, +thick neck, mmm Resp: diminished in the bases but no distress, no overt wheezing/rales, on room air CV: regular, rates controlled, +systolic murmur, b/l le edema/lymphedema, pulses present but slightly diminished, cap refill acceptable GI: +BS, soft/obese, no overt tenderness : no phillips MSK/Neuro: not confused, answering questions appropriately, moves all extremities but not able to walk due to pain in b/l feet Skin/LE: dressings to b/l LE, scattered scabs, no active drainage but significant pain to plantar aspect b/l feet, +erythema to b/l legs (R>L), +tenderness ( worse at posterior/lateral aspect of L ankle but also to her right ankle, despite CT reports w/ worse findings on the right) noted prior amputation of 3rd digit prior , looks acceptable on exam small ulceration right fifth base, prior 3rd Psych: AOx3, cooperative, fatigued appearing Results & Data Results & Data Vital Signs (Past 12 Hours) Vital Signs Temp Pulse Pulse Resp BP BP Pulse Ox 09/01/24 13:12 79 18 131/70 96 09/01/24 12:12 75 09/01/24 11:47 36.9 C 72 20 152/81 H 99 O2 Del Method 09/01/24 13:12 Room Air 09/01/24 12:12 09/01/24 11:47 Room Air Laboratory Results 09/01/24 09/01/24 Range/Units 13:47 12:30 WBC 7.80 (4.8-10.8) K/ul RBC 5.21 (4.20-5.40) M/uL Hgb 13.0 (12.0-16.0) g/dl Hct 41.1 (37.0-47.0) % MCV 78.9 L (80.0-100.0) fL MCH 25.0 (25.0-34.0) pg MCHC 31.6 L (32.0-36.0) g/dL RDW Std Deviation 49.2 H (36.4-46.3) fL RDW Coeff of Cleo 17.9 H (11.5-14.5) % Plt Count 273 (130-400) K/uL MPV 9.9 (9.4-12.4) fL Immature Gran % (Auto) 0.3 % Neut % (Auto) 65.8 % Lymph % (Auto) 23.2 % [facility] % (Auto) 5.4 % Eos % (Auto) 4.9 % Baso % (Auto) 0.4 % Neut # (Auto) 5.14 (1.40-6.50) K/uL Lymph # (Auto) 1.81 (1.20-3.40) K/uL [facility] # (Auto) 0.42 (0.11-0.59) K/uL Eos # (Auto) 0.38 (0.00-0.50) K/uL Baso # (Auto) 0.03 (0.00-0.20) K/uL Immature Gran # (Auto) 0.02 (0.01-0.20) K/uL ESR 53 H (0-30) mm/hr Sodium 140 (136-145) mmol/L Potassium 3.8 TNP Chloride 102 (98-107) mmol/L Carbon Dioxide 34 H (21-32) mmol/L Anion Gap 4 (3-11) BUN 13 (6-23) mg/dl Creatinine 1.05 (0.6-1.2) mg/dl Est Cr Clr Drug Dosing 87.9 ml/min eGFR 60.45 BUN/Creatinine Ratio 12.4 (10-20) Glucose 76 (70-99(Fasting)) mg/dl Calcium 8.7 (8.6-10.3) mg/dl Total Bilirubin 0.5 (0.2-1.0) mg/dl AST 16 TNP ALT 18 (7-52) U/L Alkaline Phosphatase 90 (34-104) U/L C-Reactive Protein 1.87 H (0-0.5) mg/dl Total Protein 7.3 (6.0-8.3) gm/dl Albumin 3.8 (3.4-5.0) gm/dl Globulin 3.5 (2.5-4.0) gm/dl Albumin/Globulin Ratio 1.1 (0.9-2) Procalcitonin 0.04 Cancelled Diagnostic Findings Foot CT 09/01/24 12:11 CT foot LT w con CLINICAL HISTORY: pain heel, concern infection, recent amputation COMPARISON STUDY: X-ray of 08/29/2024 and MRI of 07/23/2024. FINDINGS: There is stable amputation at the proximal aspect of the third proximal phalanx. No acute fracture or dislocation seen. No evidence of osteomyelitis. There is diffuse subcutaneous edema. There is a soft tissue ulcer adjacent to the plantar base of the fifth metatarsal. No soft tissue abscess seen. IMPRESSION: No soft tissue abscess or osteomyelitis seen. ACT 112: Negative or not required by law. Electronically signed by: Yohan Wright M.D. 09/01/2024 1:[address] 09/01/24 12:11 CT foot RT w con HISTORY: 63 years-old Female pain heel, concern infection acute soft tissue infection of the right lower extremity COMPARISON: Foot radiographs 08/29/2024 TECHNIQUE: Multiple axial CT images of the right foot were obtained with IV contrast. A dose lowering technique was used consistent with the principals of ALARA. FINDINGS: 11 mm cutaneous ulcer of the lateral forefoot official to the base of the fifth metatarsal. Moderate adjacent sialitis with subcutaneous edema noted circumferentially throughout the foot and ankle. No drainable fluid collections are seen. Heterogeneity within the subcutaneous tissues includes a 1.6 cm focus of the posterolateral ankle on image 28 series 6, possibly a small phlegmon. Te ndons and ligaments are suboptimally evaluated by CT technique. Mild to moderate osteoarthritis of the midfoot and hindfoot. Large calcaneal enthesophytes are noted. No acute fracture, dislocation or osseous erosions identified. IMPRESSION: 1. Cellulitis with lateral cutaneous ulcer superficial to the base of the fifth metatarsal. 2. No discrete abscess identified at this time. 3. No CT evidence of acute osteomyelitis. ACT 112: Negative or not required by law. The above report was generated using voice recognition software. It may contain grammatical, syntax or spelling errors. Electronically signed by: Reinaldo Todd M.D. 09/01/2024 1:59 PM Supervising Physician Co-Signing Physician Notes During face to face encounter, I obtained a history and physical examination, discussed plan of care with patient and answered any questions. I discussed plan of care with ZOEY Vasquez. I reviewed above note and agree with it except for the following: Patient will be admitted for lower leg cellulitis. will place on antibiotics. PG Care Time/CCT Total # of Minutes Spent Total Time Spent with Patient: Total time spent is greater than 50% in coordination of care (as documented) at patient's floor/unit and/or counseling patient: Coding Level of Care Code 74621 INT INP/OBS CARE 3/75MIN Diagnoses Cellulitis L03.311 Site of cellulitis: trunk Site of cellulitis of trunk: abdominal wall Diabetic foot infection E11.628; L08.9 CHF (congestive heart failure) I50.9 Heart failure chronicity: acute on chronic Heart failure type: unspecified CKD (chronic kidney disease) stage 3, GFR 30-59 ml/min N18.31 Chronic kidney disease stage 3 subtype: stage 3a (GFR 45-59) Acid reflux K21.9 Congenital kidney disease N28.9 Primary hypertension I10 Hypertension type: unspecified Dyslipidemia E78.5 Severe obstructive sleep apnea G47.33 Lower extremity edema R60.0 Diabetes mellitus, type 2 E11.9 (1) Cellulitis Site of cellulitis: trunk Site of cellulitis of trunk: abdominal wall Qualified Code(s): L03.311 - Cellulitis of abdominal wall (3) CHF (congestive heart failure) Heart failure chronicity: acute on chronic Heart failure type: unspecified Qualified Code(s): I50.9 - Heart failure, unspecified (4) CKD (chronic kidney disease) stage 3, GFR 30-59 ml/min Chronic kidney disease stage 3 subtype: stage 3a (GFR 45-59) Qualified Code(s): N18.31 - Chronic kidney disease, stage 3a (7) Hypertension Hypertension type: unspecified Qualified Code(s): I10 - Essential (primary) hypertension
[2024-09-01] MEDS ORDERED: VANCOMYCIN CONSULT ACTIVE PRN ×2 (14:33→20:18)
[2024-09-01] MEDS: cefTRIAXone SODIUM 2,000 MG/50 ML BAG IV STA (14:43)
[2024-09-01] MEDS: VANCOMYCIN HCL 2,750 MG in SODIUM CHLORIDE 0.9% 500 ML IV ONE (15:16)
[2024-09-01] MEDS ORDERED: diphenhydrAMINE 50 MG/ML VIAL IV PRN (15:27)
--- NOTE | 2024-09-01 15:42 | Podiatry Consultation ---
Date of Consultation September 01, 2024 Assessment & Plan (1) Diabetic foot infection: (2) Diabetic ulcer of left foot: Diabetic foot ulcer location: midfoot Diabetes mellitus type: type 2 Non-pressure ulcer stage: with fat layer exposed Qualified Code(s): E11.621 - Type 2 diabetes mellitus with foot ulcer; L97.422 - Non-pressure chronic ulcer of left heel and midfoot with fat layer exposed (3) Diabetic ulcer of right foot: Diabetic foot ulcer location: midfoot Diabetes mellitus type: type 2 Non-pressure ulcer stage: with fat layer exposed Qualified Code(s): E11.621 - Type 2 diabetes mellitus with foot ulcer; L97.412 - Non-pressure chr onic ulcer of right heel and midfoot with fat layer exposed (4) Cellulitis of both lower extremities: (5) Mass of soft tissue of ankle: Plan Bilateral plantar foot diabetic foot ulceration with associated cellulitis: - Nonweightbearing left foot lower extremity. Weightbearing as tolerated for short distance transfer on the right lower extremity. Will place order for short leg Cam walker to the left foot. - Wounds evaluated. No elzbieta bone exposure or significant exposure of deep soft tissue structures. Wound beds are to the subcutaneous tissue layer with no indication for sharp debridement at this time. - Right leg/ankle evaluated with no open wound or history of wound and little clinical concern for the area of noted possible phlegmon on CT. Recommend continued close of firm subcutaneous soft tissue mass. I do not believe this is related or contributing to current bilateral foot and leg issues. No plan for intervention during this admission. - Bilateral foot dressed with Allevyn ABD pad x 2, ABD pad to the anterior ankle, Archana and Emir bandage to the level of the knee. Change dressing once daily. Orders placed. - Continue IV vancomycin and cefepime pending wound culture and sensitivity results collected 09/01/2024. Patient is in a difficult situation with bilateral foot wounds which are declining despite best efforts. Patient is high risk for readmission due to bilateral foot wounds that she is unable to adequately offload in home. Would strongly recommend planning for discharge to [facility] pending evaluation by PT/OT. Long-term goals for patient are to continue community ambulation and ADLs around home. She does have a walker that she uses in her home and up until now has been weightbearing in postop shoes which due to her gait pattern are causing significant stress to the bilateral plantar foot. I think remaining full off weightbearing to the left foot at least to allow some regeneration of the soft tissues and some level of healing to the 2 ulcerations on the side would go a long way of preventing recurrent infection and osteomyelitis. If we are able to manage her lower extremity infection with all antibiotics and get her to the outpatient setting she did tolerate a total contact cast on the left side quite well up into the point she developed an abdominal wound which required hospitalization. Plan would be to reinitiate total contact casting soon as possible to allow for resolution of left lower extremity wounds while protecting the right foot with a short leg Cam walker and refocus on the right foot with more aggressive offloading when possible. If and when patient is able to get these wounds to heal I think should actually do quite well custom fabricated diabetic shoe gear with decreased risk of recurrent ulceration. History of Present Illness Reason for Consultation: Bilateral diabetic foot ulcer, bilateral lower extremity cellulitis, CT exam with 1.6cm possible phlegmon R posterolateral ankle Requesting Physician: Suzanna Vasquez PA-C History of Present Illness The patient is a 63-year-old female seen in wound center this morning to evaluate wounds on the bottoms of both her feet, specifically under the fifth metatarsal head on both feet and under the first metatarsal head on her left foot. She recently had her left third toe amputated by Dr. Sanchez, and that has healed well. She visited the wound care center earlier today for a follow-up on her foot wounds. She had just finished taking oral Bactrim but noticed that the pain, redness, and swelling in both feet have gotten much worse. The pain was so bad that they couldn't properly examine the wounds. She is currently wearing surgical shoes on both feet because of these wounds. In the past, she tried using total contact casting but only managed to get one cast on before getting an infection from trunk wounds, which led to her being hospitalized. Her main goal is to be able to move around for daily activities and take care of herself. She lives at home and takes care of the household. She is obese but has recently lost between 100 to 150 pounds after a procedure, which is a positive development. On admission there is no leukocytosis. ESR 53, CRP 1.87, procalcitonin 0.04. CT imaging of the left foot with no soft tissue abscess or osteomyelitis seen. CT imaging of the right foot showing cellulitis with ulcer at the fifth met base, no discrete abscess or signs of osteomyelitis. There is note of heterogeneity in the subcutaneous tissue of the 1.6 cm focus of posterior lateral ankle. Cellulitis the bilateral lower extremity. Patient is initiated on IV vancomycin and cefepime with history of MRSA. Allergies Allergy/AdvReac Type Severity Reaction Status Date / Time Corticosteroids Allergy Severe Anaphylaxis Unverified 09/01/24 09:54 (Glucocorticoids) clindamycin Allergy Intermediate Rash Verified 09/01/24 09:54 dog dander Allergy Intermediate Rash Verified 09/01/24 09:54 iron [From Venofer] Allergy Intermediate Rash Verified 09/01/24 09:54 morphine Allergy Intermediate mouth and Verified 09/01/24 09:54 face swells Penicillins Allergy Intermediate rash/hives Verified 09/01/24 09:54 adhesive Allergy Mild Skin rash Verified 09/01/24 09:54 localized zolpidem Allergy Unknown Unknown Verified 09/01/24 09:54 pregabalin AdvReac Intermediate "makes Verified 09/01/24 09:54 goofy" Home Medications Medication Instructions Recorded Confirmed Type calcium carbonate (Tums) 900 mg PO QAM 03/03/22 09/01/24 History cyanocobalamin (vitamin B-12) 1,000 mcg PO QAM 03/03/22 09/01/24 History 1,000 mcg tablet (Vitamin B-12) albuterol sulfate 2.5 mg/3 mL 2.5 mg (3 mL) inhalation Q6H PRN 06/25/23 09/01/24 Rx (0.083 %) solution for nebulization Shortness Of Breath #90 mL aspirin 81 mg tablet,delayed 81 mg PO QAM 06/25/23 09/01/24 History release duloxetine 60 mg capsule,delayed 60 mg PO BID 06/25/23 09/01/24 History release (Cymbalta) diclofenac sodium 1 % topical gel 4 g EXT QID #1 tube 08/30/23 09/01/24 Rx (Voltaren Arthritis Pain) nystatin 100,000 unit/gram topical 1 applic topical TID PRN yeast 08/30/23 09/01/24 Rx powder rash under breasts, abdominal skin folds #30 grams CPAP Supplies #1 ea 09/28/23 09/01/24 Rx CPAP Machine #1 ea 09/29/23 09/01/24 Rx cetirizine 10 mg tablet (Zyrtec) 10 mg PO BID 10/20/23 09/01/24 History empagliflozin 10 mg tablet 10 mg PO QAM #90 tabs 12/02/23 09/01/24 Rx (Jardiance) potassium chloride 20 mEq 20 meq PO QAM 12/24/23 09/01/24 History tablet,extended release(part/cryst) (Klor-Con M) montelukast 10 mg tablet 10 mg PO QPM #90 tabs 01/03/24 09/01/24 Rx (Singulair) albuterol sulfate 90 mcg/actuation 2 puff inhalation Q4H PRN 01/04/24 09/01/24 Rx aerosol inhaler (Ventolin HFA) Shortness Of Breath Or Wheezing #18 grams epinephrine 0.3 mg/0.3 mL 0.3 mg IM UD PRN anaphylaxis 01/06/24 09/01/24 History injection, auto-injector famotidine 20 mg tablet (Pepcid) 20 mg PO HS #90 tabs 01/10/24 09/01/24 Rx acetaminophen 500 mg tablet 1,000 mg (2 x 500 mg) PO TID PRN 02/04/24 09/01/24 Rx fever or pain #90 tabs allopurinol 100 mg tablet 100 mg PO BID #180 tabs 03/17/24 09/01/24 Rx pantoprazole 40 mg tablet,delayed 40 mg PO BID #90 tabs 05/31/24 09/01/24 Rx release (Protonix) bupropion HCl 150 mg 24 hr tablet, 150 mg PO QAM #90 tabs 06/08/24 09/01/24 Rx extended release gabapentin 400 mg capsule 400 mg PO QID #360 caps 06/30/24 09/01/24 Rx losartan 25 mg tablet 25 mg PO QAM 07/23/24 09/01/24 History nystatin 100,000 unit/gram topical 1 applic EXT TID PRN FLARE 07/23/24 09/01/24 History ointment multivitamin 1 tab PO QAM #90 tabs 07/24/24 09/01/24 Rx metoprolol succinate 25 mg 25 mg PO DAILY 07/31/24 09/01/24 History tablet,extended release 24 hr spironolactone 25 mg tablet 25 mg PO BID 07/31/24 09/01/24 History sucralfate 1 gram tablet (Carafate) 1 g PO AC PRN heartburn #30 tabs 07/31/24 09/01/24 Rx buspirone 15 mg tablet 15 mg PO TID 08/01/24 09/01/24 History bumetanide 1 mg tablet 2 mg PO QAM 09/01/24 09/01/24 History cholecalciferol (vitamin D3) 50 2,000 unit PO DAILY 09/01/24 09/01/24 History mcg (2,000 unit) capsule (Vitamin D3) hydroxyzine HCl 25 mg tablet 25 mg PO HS PRN Allergy Symptoms 09/01/24 09/01/24 History sennosides 8.6 mg tablet (Senokot) 8.6 mg PO BID 09/01/24 09/01/24 History Patient History Medical History Diabetic foot ulcer Abdominal wall cellulitis Hypokalemia Mast cell disease B-cell lymphoma Hx-TIA (transient ischemic attack) 2016 > ASA for prevention > no residual effects Hx of sepsis 09/2021 r/t left knee infection Hypertension Lumbar spinal stenosis Arthritis Allergic rhinitis Gout Other ovarian cyst, left side present, just monitoring Acid reflux Severe obstructive sleep apnea cpap Stage 3 chronic kidney disease follows with Dr. Wood Fatty liver CHF (congestive heart failure) follows with [facility] Solitary kidney, congenital Diabetes mellitus, type 2 Ulcer of foot one ulcer present to bottom of bilat feet > follows with wound clinic at [place], improving per pt History of COVID-19 09/2021 Iron deficiency anemia Venous stasis of both lower extremities MDD (major depressive disorder), recurrent episode, moderate Ambulatory dysfunction uses walker Depression with anxiety Degenerative joint disease, shoulder, right Lymphedema left leg and abdomen / chronic Asthma well controlled, rare res inh use Hyperlipidemia no meds Surgical History Hx of biopsy (12/29/23) Left Neck Lymph Node Biopsy(Left) - Yohan Maldonado, DO, FACS History of insertion of central venous access port removed in 2022 History of revision of total replacement of left knee joint History of cardiac cath remote hx over 20 yrs ago, no stents History of colonoscopy History of esophagogastroduodenoscopy (EGD) History of bilateral knee replacement (10/16/22) H/O knee surgery (12/2021) L knee washout w/ polyexchange S/P tonsillectomy and adenoidectomy Status post total shoulder arthroplasty (10/17/18) right History of carpal tunnel release B/L H/O ventral hernia repair History of appendectomy History of cholecystectomy Family History Mother Diabetes Coronary heart disease Myocardial infarction S/P CABG x 3 Hypertension Gallbladder disease Sister Hodgkins lymphoma Brother Kidney disease Grandmother Breast cancer Aunt Ovarian cancer Father , 02/11/20. Peripheral vascular disease Daughter Diabetes Other Cancer No family history of adverse response to anesthesia Denies family history of Prostate cancer Colorectal cancer Social History Smoking Status: Never smoker Age Started Using Tobacco: 22; Age Quit Using Tobacco: 24; packs per day: 1; Second Hand Exposure: No; Do You Dip or Chew Tobacco: No; Hx Alcohol Use: No Hx Substance Use: No Preferred Language: Cymraes 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 Ability: Effective Visual Impairment: Limited Hearing Ability: Normal Hot Roller Required: No Beliefs That Will Affect Care: None marital status: marital status details: ; lives with parents & 1 daughter Current Living Situation: Family Current Living Situation Comment: Lives with mother & daughter current occupational status: disabled Other Information That Helps Us Care for You: No other: worked in [employer] in [place]; worked for [employer] Feels Safe at Home: Yes Safety Concerns: Feels Safe At This Time Childhood Exposure to Second-Hand Smoke: No Diet: regular Diet Comment: regular caffeine: No Dental Care, Regularly: No Physical Activity Frequency: Does not Exercise Seatbelt Use: always Sunscreen Use: Yes Assistive Devices: CPAP, Denture - Upper, Denture - Lower, Glasses and Walker Review of Systems Review of Systems: Denies nausea, vomiting, fever, chills, shortness of breath, chest pain. Reports significant pain to the bilateral foot and ankle which is new over the past week despite longstanding ulceration bilateral. All other systems reviewed and otherwise negative unless detailed above. Physical Exam Physical Exam: Const: Appears well developed and well nourished. Obese. No signs of acute distress present. CV: Extremities: No cyanosis. Bilateral lower extremity edema left greater than right. Capillary refill time is less than 2 seconds all digits of the bilateral foot. Posterior tibial and dorsalis pedis pulses are palpable bilateral. Skin: Thin atrophic skin with loss of hair growth bilateral lower extremity below the knee with stasis changes to the skin bilateral. Neuro: Loss of protective sensation to toes bilateral. Diminished protective sensation to bilateral plantar foot. Notable pain to palpation areas of ulceration. Psych: Mood/Affect: Mood is normal. Affect is normal. Cognition: Orientation is intact to person, place and time. Focused lower extremity musculoskeletal exam: Leg: No pain with compression of the calf muscle. Lymphedema bilateral leg left greater than right. Ankles: Normal to inspection and palpation. No tenderness bilaterally. Motor strength is intact. Range of motion pain-free and unlimited. Posterior lateral right ankle is evaluated with no signs of external injury. There is a firm well-circumscribed 1.6 cm diameter subcutaneous soft tissue mass/nodule no signs of local soft tissue irritation or infection. On palpation there is generalized tenderness which is noted bilaterally. No focal increased tenderness to the area of concern for possible phlegmon noted on CT scan. No fluctuation to this area or sign of increased erythema or edema. Feet: Bilateral flatfoot deformity. Right foot: Diabetic ulcer subfifth metatarsal head extending the subcutaneous tissue layer. Scant active serous drainage. Periwound erythema and edema. No elzbieta probe to bone. Left foot: Diabetic ulceration subfifth metatarsal head and subfirst metatarsal head. Both ulcerations extend into the subcutaneous tissue layer with active serous drainage. No notable purulence or malodor. Periwound erythema and edema. I am able to probe wounds today and I am reaching firm soft tissue endpoint likely indicating exposed underlying joint capsule subfirst metatarsal head and tendinous structures at the base of the fifth with no elzbieta probe to bone. No undermining or tracking. Unable to express any fluid with pressure to the surrounding soft tissues. Results & Data Vital Signs (Past 12 Hours) Vital Signs Temp Pulse Pulse Resp BP BP Pulse Ox 09/01/24 15:00 73 14 143/92 H 97 09/01/24 13:12 79 18 131/70 96 09/01/24 12:12 75 04/18/25 11:47 36.9 C 72 20 152/81 H 99 O2 Del Method 09/01/24 15:00 Room Air 09/01/24 13:12 Room Air 09/01/24 12:12 09/01/24 11:47 Room Air Laboratory Results ESR 53, CRP 1.87, procalcitonin 0.04. Diagnostic Findings CT right foot without contrast 09/01/2024:IMPRESSION: 1. Cellulitis with lateral cutaneous ulcer superficial to the base of the fifth metatarsal. 2. No discrete abscess identified at this time. 3. No CT evidence of acute osteomyelitis. CT left foot without contrast 09/01/2024:IMPRESSION: No soft tissue abscess or osteomyelitis seen. PG Care Time/CCT Total # of Minutes Spent Total Time Spent with Patient: Total time spent is greater than 50% in coordination of care (as documented) at patient's floor/unit and/or counseling patient: [place] [address] INT INP/OBS CARE 3/75MIN Patient Type New Diagnoses Diabetic foot infection E11.628; L08.9 Diabetic ulcer of left midfoot associated with type 2 diabetes mellitus, with fat layer exposed E11.621; L97.422 Diabetic foot ulcer location: midfoot Diabetes mellitus type: type 2 Non-pressure ulcer stage: with fat layer exposed Diabetic ulcer of right midfoot associated with type 2 diabetes mellitus, with fat layer exposed E11.621; L97.412 Diabetic foot ulcer location: midfoot Diabetes mellitus type: type 2 Non-pressure ulcer stage: with fat layer exposed Cellulitis of both lower extremities L03.115; L03.116 Mass of soft tissue of ankle M79.89
[2024-09-01] MEDS: ENOXAPARIN INJ 40 MG/0.4 ML SYR SQ ONE (15:54)
[2024-09-01] MEDS: oxyCODONE HCL IR 5 MG TAB (IMMEDIATE RELEASE) PO STA (15:54)
[2024-09-01] MEDS ORDERED: GLUCOSE 40% GEL 15 GM TUBE PO PRN (20:18)
[2024-09-01] MEDS ORDERED: GLUCOSE 10 TAB/TUBE PO PRN (20:18)
[2024-09-01] MEDS ORDERED: ALBUTEROL 0.083% NEBU SOLN 3 ML VIAL INH PRN (20:18)
[2024-09-01] MEDS ORDERED: SUCRALFATE 1 GM TAB PO PRN (20:18)
[2024-09-01] MEDS ORDERED: CARBOHYDRATES FOR HYPOGLYCEMIA PO PRN (20:18)
[2024-09-01] MEDS ORDERED: DEXTROSE 50% 50 ML SYRINGE IV PRN (20:18)
[2024-09-01] MEDS ORDERED: GLUCAGON FOR INJ 1 MG VIAL SQ PRN (20:18)
[2024-09-01] MEDS ORDERED: VANCOMYCIN HCL 1,000 MG/270 ML BAG IV SCH (20:18)
[2024-09-01] MEDS ORDERED: hydrOXYzine HCl 25 MG TAB PO PRN (20:18)
[2024-09-01] MEDS: ACETAMINOPHEN 500 MG TAB PO PRN (20:29)
[2024-09-01] MEDS ORDERED: EPINEPHrine INJ 1 MG/ML AMP IM PRN (20:45)
[2024-09-01] MEDS: BUMETANIDE 1 MG TAB PO ONE (21:39)
[2024-09-01] MEDS: FAMOTIDINE 20 MG TAB PO SCH (21:48)
[2024-09-01] MEDS: DULoxetine HCL 60 MG CAP PO SCH (21:48)
[2024-09-01] MEDS: SENNA 8.6 MG TAB PO SCH (21:48)
[2024-09-01] MEDS: GABAPENTIN 400 MG CAP PO SCH (21:48)
[2024-09-01] MEDS: busPIRone 15 MG TAB PO SCH (21:49)
[2024-09-01] MEDS: CETIRIZINE HCL 10 MG TABLET PO SCH (21:49)
[2024-09-01] MEDS: SPIRONOLACTONE 25 MG TAB PO SCH (21:49)
[2024-09-01] MEDS: PANTOprazole 40 MG TAB PO SCH (21:49)
[2024-09-01] MEDS: MONTELUKAST SODIUM 10 MG TABLET PO SCH (21:49)
[2024-09-01] MEDS: allopurinoL 100 MG TAB PO SCH (21:49)
[2024-09-01] MEDS: INSULIN ASPART PER UNIT CHARGE SC SCH (21:50)
[2024-09-01] MEDS: traMADol HCL 50 MG TABLET PO PRN (21:50)
[2024-09-01] MEDS: CEFEPIME 2000MG 2,000 MG/20 ML SYR IV SCH (22:30)
[2024-09-02] MEDS: HYDROmorphone INJ 0.5 MG/0.5 ML SYR IV PRN (03:17)
[2024-09-02] MEDS: VANCOMYCIN HCL 1,000 MG/270 ML BAG IV SCH (06:13)
[2024-09-02 06:24] LABS: Basophils # (auto) 0.02 K/uL (0.00-0.20); Basophils % (auto) 0.3 %; Eosinophils # (auto) 0.34 K/uL (0.00-0.50); Eosinophils % (auto) 4.4 %; Hematocrit (blood only) 35.9 % (37.0-47.0); Hemoglobin 11.3 g/dl (12.0-16.0); Immature Granulocytes # (auto) 0.02 K/uL (0.01-0.20); Immature Granulocytes % (auto) 0.3 %; Lymphocytes # (auto) 1.81 K/uL (1.20-3.40); Lymphocytes % (auto) 23.4 %; Mean Corpuscular Hemoglobin 25.1 pg (25.0-34.0); Mean Corpuscular Hgb Conc 31.5 g/dL (32.0-36.0); Mean Corpuscular Volume 79.6 fL (80.0-100.0); Mean Platelet Volume 9.7 fL (9.4-12.4); Monocytes # (auto) 0.52 K/uL (0.11-0.59); Monocytes % (auto) 6.7 %; Neutrophils # (auto) 5.04 K/uL (1.40-6.50); Neutrophils % (auto) 64.9 %; Platelet Count 260 K/uL (130-400); RDW Coefficient of Variation 17.5 % (11.5-14.5); RDW Standard Deviation 49.8 fL (36.4-46.3); Red Blood Count 4.51 M/uL (4.20-5.40); White Blood Count 7.75 K/ul (4.8-10.8)
[2024-09-02 06:33] LABS: Albumin Globulin Ratio 1.1 (0.9-2); Albumin Level 3.2 gm/dl (3.4-5.0); BUN Creatinine Ratio 10.8 (10-20); Bilirubin,Total 0.5 mg/dl (0.2-1.0); Calcium 8.2 mg/dl (8.6-10.3); Creatinine Clr Calc Pharmacy 83.3 ml/min; Globulin 2.9 gm/dl (2.5-4.0); Magnesium 1.7 mg/dl (1.7-2.4); Potassium 3.6 mmol/L (3.5-5.1); Total Protein 6.1 gm/dl (6.0-8.3)
[2024-09-02 06:53] LABS: Ferritin 82.5 ng/ml (8-388)
[2024-09-02] MEDS: BUMETANIDE 1 MG TAB PO SCH (08:10)
[2024-09-02] MEDS: ASPIRIN 81 MG ECTAB PO SCH (08:11)
[2024-09-02] MEDS: buPROPion XL 150 MG TABCR PO SCH (08:11)
[2024-09-02] MEDS: MULTIVITAMIN TAB PO SCH (08:12)
[2024-09-02] MEDS: LOSARTAN POTASSIUM 25 MG TAB PO SCH (08:12)
[2024-09-02] MEDS: CHOLECALCIFEROL 25 MCG (1000 UNITS) TAB PO SCH (08:12)
[2024-09-02] MEDS: CYANOCOBALAMIN (B-12) 500 MCG TABLET PO SCH (08:12)
[2024-09-02] MEDS: ENOXAPARIN INJ 40 MG/0.4 ML SYR SQ SCH (08:13)
[2024-09-02] MEDS: METOPROLOL SUCC 25MG EXT REL TAB PO SCH (08:13)
[2024-09-02] MEDS: POTASSIUM CHLORIDE CRTAB 20 MEQ TABCR PO SCH (08:36)
--- NOTE | 2024-09-02 10:19 | Pharmacy Report ---
Pharmacy PK ABX Note - Date of Service September 02, 2024 - Assessment and Plan Assessment * 63 year old F receiving cefepime and vancomycin for treatment of cellulitis of b/l LE w diabetic ulcer. Recently completed a course of Bactrim. * Pertinent microbiologic data includes: blood culture pending Plan Vancomycin * Loading dose: 2750 mg IV x 1 * Maintenance dose: 1000 mg IV every 12 hours * Regimen is predicted to achieve target AUC/NEO of 400-600 mg/L.hr * Trough level ordered for 09/02 @ 0530 Pharmacy will continue to follow and will adjust dose/frequency as necessary. Thank you. Pharmacy has transitioned to AUC monitoring for vancomycin. AUC/NEO is the preferred PK/PD target and is associated with decreased risk of nephrotoxicity compared to traditional trough targets.
--- NOTE | 2024-09-02 14:53 | Hospitalist Progress Note ---
Date of Service September 02, 2024 Assessment & Plan (1) Cellulitis: (2) Diabetic foot infection: (3) CHF (congestive heart failure): (4) CKD (chronic kidney disease) stage 3, GFR 30-59 ml/min: (5) Congenital kidney disease: (6) Severe obstructive sleep apnea: (7) Diabetes mellitus, type 2: Plan 63-year-old woman with diabetes, diabetic neuropathy, and morbid obesity admitted with bilateral diabetic foot wounds and associated cellulitis. These have been treated in the outpatient setting at the wound clinic and have not been healing # bilateral diabetic foot ulcers with associated cellulitis -consulted dairy feed mixing operator, reviewed recommendations -continue wound care, continue cefepime and vancomycin pending cultures. she was on oral Bactrim prior to admission, previous wound cultures have grown MRSA and a fairly sensitive Proteus -ordered PT and OT with weightbearing precautions as per dairy feed mixing operator recommendations, cam boot for left lower extremity # soft tissue mass of right ankle - noted on CT, possible phlegmon, not associated with the current wounds of unclear clinical significance we will simply monitor the area on exam # fall, right hip pain, right knee pain. exam unremarkable except for tender trochanteric bursa. evaluate for occult fractures, may have hip bursitis -ordered xrays of hip and knee #DM II - w A1c 5.9, well controlled. On Jardiance (also w/ HF as below) - BSG AC/HS, SSI while inpatient. - Remains on Gabapentin 400mg QID but suspect benefit if able to be lowered. Does have CKD 3 at baseline but clearance at 60 and acceptable to continue for now. #CHF - Hx HfPEF, continues on bumex/spironolactone, metoprolol, losartan, Jardiance. weight is up 10-12 kg since July hospitalization -not in exacerbation -increase bumex, monitor weight and edema #ANDRZEJ - continue CPAP HS #GERD- continue PPI BID, carafate, pepcid HS #Allergies- continue montelukast #morbid obesity BMI 48 #CKD-3 DVT Proph: Lovenox SQ while inpatient Note, last admission dc w/ recs for dedicated pelvic u/s in the near-future as outpatient for L sided adnexal lesion (5.5x5.0x7.4cm) on prior abdominal imaging --> should be arranged in f/u at [facility]. CT neck recently also noting "unchanged L supraclavicular lymphadenopathy" Also note CTAP w/ multiple subcentimeter cyst in pancreatic parenchyma Admission and Anticipated Discharge Date Admission Date: September 01, 2024 Subjective currently her legs are dressed and wrapped in Emir per the dairy feed mixing operator, she reports that both lower legs are still red especially in the ankle area but improved a little bit she did fall at home several days ago, since then she has right hip pain this is both laterally and in the groin area, she also has right knee pain knee is not swollen she had a TKA a bilaterally in the past Physical Exam 2 Physical Exam: PHYSICAL EXAMINATION Last 24h vital signs reviewed, see documentation in flowsheet General: comfortable appearing, no distress, sitting in bed HEENT: Normocephalic, atraumatic, pupils round and equal, sclerae anicteric, no conjunctival injection, moist mucus membranes Lungs: Normal respiratory effort. Clear to auscultation bilaterally. No RRW Heart: Regular rate and rhythm, no murmurs. No JVD Abdomen: Soft, nontender, nondistended. Bowel sounds present. Extremities: Warm, dry, well-perfused. tender over trochanteric bursa of right hip, but also in right groin, difficult to do range of motion exam because of body habitus, no obvious deformity, right knee has a TKA incision well-healed no effusion no deformity both feet and ankles are currently dressed and wrapped in Emir bandage toes are warm and well-perfused Neuro: Alert and oriented x 4, face symmetric, moves 4 extremities well Psych: Normal affect and behavior Results & Data Results & Data Vital Signs (Past 12 Hours) Vital Signs Temp Pulse Resp BP Pulse Ox O2 Del Method 09/02/24 11:21 Room Air 09/02/24 07:52 36.7 C 65 18 123/73 95 Room Air Laboratory Results 09/02/24 05:46 09/02/24 05:46 ESR is in the 50s which is on the lower end of her usual range, in July it was over 100 PG Care Time/CCT Total # of Minutes Spent Total Time Spent with Patient: Total time spent is greater than 50% in coordination of care (as documented) at patient's floor/unit and/or counseling patient: Coding Level of Care Code 39846 SUB INP/OBS CARE 3/50MIN Diagnoses Cellulitis L03.311 Site of cellulitis: trunk Site of cellulitis of trunk: abdominal wall Diabetic foot infection E11.628; L08.9 CHF (congestive heart failure) I50.9 Heart failure chronicity: acute on chronic Heart failure type: unspecified CKD (chronic kidney disease) stage 3, GFR 30-59 ml/min N18.31 Chronic kidney disease stage 3 subtype: stage 3a (GFR 45-59) Congenital kidney disease N28.9 Severe obstructive sleep apnea G47.33 Diabetes mellitus, type 2 E11.9 (1) Cellulitis Site of cellulitis: trunk Site of cellulitis of trunk: abdominal wall Qualified Code(s): L03.311 - Cellulitis of abdominal wall (3) CHF (congestive heart failure) Heart failure chronicity: acute on chronic Heart failure type: unspecified Qualified Code(s): I50.9 - Heart failure, unspecified (4) CKD (chronic kidney disease) stage 3, GFR 30-59 ml/min Chronic kidney disease stage 3 subtype: stage 3a (GFR 45-59) Qualified Code(s): N18.31 - Chronic kidney disease, stage 3a
--- NOTE | 2024-09-02 15:53 | XRay Report ---
Study: Right knee 2 views History: Pain Comparison: None Findings: There is no acute fracture or dislocation. Alignment is anatomic. Total right knee arthroplasty. No evidence for compTatian. superior patellar enthesophyte. Joint spaces are well maintained. There is no joint effusion or significant soft tissue swelling. Bone mineralization is normal. Impression: No acute bony abnormality Electronically signed by Norris Membreno 09-02-2024 3:53 PM
--- NOTE | 2024-09-02 16:25 | XRay Report ---
Study: Pelvis 1 view, right hip 2 views History: Trauma Comparison: None Findings: There is no acute fracture or dislocation. Alignment is anatomic. Severe degenerative joint space narrowing of the right hip. Endplate sclerosis noted. Severe left hip degenerative change also seen. There is no joint effusion or significant soft tissue swelling. Bone mineralization is decreased. Impression: No acute bony abnormality. Severe degenerative change seen of both hips. Electronically signed by Norris Membreno 09-02-2024 4:24 PM
[2024-09-03] MEDS: VANCOMYCIN LEVEL ONE (05:30)
--- NOTE | 2024-09-03 11:15 | Pharmacy Report ---
Pharmacy PK ABX Note - Date of Service September 03, 2024 - Assessment and Plan Assessment * 63 year old F receiving cefepime and vancomycin for treatment of cellulitis of b/l LE w diabetic ulcer. Recently completed a course of Bactrim. * Pertinent microbiologic data includes: blood culture no growth to date * SCr very slowly trending up - may or may not be clinically significant. Will continue to follow daily. Plan Vancomycin * Maintenance dose: 1000 mg IV every 12 hours * Target AUC/NEO of 400-600 mg/L.hr * Random level of 13.2 mcg/mL associated with a therapeutic AUC of 572 mg/L.hr * Repeat random level in 48 hours Pharmacy will continue to follow and will adjust dose/frequency as necessary. Thank you. Pharmacy has transitioned to AUC monitoring for vancomycin. AUC/NEO is the preferred PK/PD target and is associated with decreased risk of nephrotoxicity compared to traditional trough targets.
--- NOTE | 2024-09-03 12:54 | CT Scan Report ---
HISTORY: Fall with right hip and pelvic pain. TECHNIQUE: Helical CT imaging was performed of the pelvis and the right hip. Images are presented in axial, sagittal, and coronal reformats. COMPARISON: CT of the abdomen pelvis dated 08/29/2024. FINDINGS: Severe facet arthrosis in the lower lumbar spine and at the lumbosacral junction. The sacrum appears intact. No widening of the pubic symphysis or sacroiliac joints. Mild osteoarthritis of the pubic symphysis and sacroiliac joints. The inferior and superior pubic rami appear intact. The acetabulum and iliac wings appear intact. The femoral heads and proximal femurs appear intact.Severe osteoarthritis of the hips is bilateral. No pelvic hematoma. The uterus is unremarkable.Left adnexal masslike lesion measuring 8.0 x 6.1 cm. Mild to moderate atherosclerotic vascular disease. Body wall edema. IMPRESSION: * 8.0 x 6.1 cm left adnexal masslike lesion. Further evaluation is recommended withpelvic ultrasound. If the lesion is not visualized sonographically, then pelvic MRI with contrast could be performed. * No evidence of acute hip or pelvic fracture. * Severe osteoarthritis of the hips. * Severe degenerative spondylosis of the lower lumbar spine and lumbosacral junction. Electronically signed by Sherman Ailcea 09-03-2024 12:53 PM
--- NOTE | 2024-09-03 16:41 | Hospitalist Progress Note ---
Date of Service September 03, 2024 Assessment & Plan (1) Cellulitis: (2) Diabetic foot infection: (3) CHF (congestive heart failure): (4) CKD (chronic kidney disease) stage 3, GFR 30-59 ml/min: (5) Severe obstructive sleep apnea: (6) Diabetes mellitus, type 2: Plan 63-year-old woman with diabetes, diabetic neuropathy, and morbid obesity admitted with bilateral diabetic foot wounds and associated cellulitis. These have been treated in the outpatient setting at the wound clinic and have not been healing. 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 # bilateral diabetic foot ulcers with associated cellulitis -consulted web content specialist -continue wound care, continue cefepime and vancomycin. wound culture no growth. Cr trending up - monitor on vancomycin check in AM -ordered PT and OT with weightbearing precautions as per web content specialist recommendations, cam boot # soft tissue mass of right ankle - noted on CT, possible phlegmon, not associated with the current wounds of unclear clinical significance we will simply monitor the area on exam # fall, right hip pain, right knee pain. exam unremarkable except for tender trochanteric bursa. evaluated for occult fractures, may have hip bursitis - xrays of hip and knee negative for fracture, ordered R hip/pelvis CT also negative for fracture or hematoma - severe OA of right hip - may have trochanteric bursitis, groin/anterior thigh/knee pain might be meralgia paresthetica - discussed positioning to help this, already on gabapentin #DM II - w A1c 5.9, well controlled. On Jardiance (also w/ HF as below) - BSG AC/HS, SSI while inpatient. - BG 79-117 past 24 #CHF - Hx HfPEF, continues on bumex/spironolactone, metoprolol, losartan, Jardiance. weight is up 10-12 kg since July hospitalization -not in exacerbation -continue bumex, monitor weight and edema #ANDRZEJ - continue CPAP HS #GERD- continue PPI BID, carafate, pepcid HS #Allergies- continue montelukast #morbid obesity BMI 48 #CKD-3 DVT Proph: Lovenox SQ while inpatient Note, last admission dc w/ recs for dedicated pelvic u/s in the near-future as outpatient for L sided adnexal lesion (5.5x5.0x7.4cm) on prior abdominal imaging. also seen on pelvic CT this admission --> should be arranged in f/u at [facility]. CT neck recently also noting "unchanged L supraclavicular lymphadenopathy" Also note CTAP w/ multiple subcentimeter cyst in pancreatic parenchyma Admission and Anticipated Discharge Date Admission Date: September 01, 2024 Subjective She thinks the right ankle is less red and both feet are less red than 48h ago. feet less painful continues to have severe pain R hip, has radiation to R groin and down anterior thigh to R knee Physical Exam 2 Physical Exam: PHYSICAL EXAMINATION Last 24h vital signs reviewed, see documentation in flowsheet General: awake lying in bed HEENT: Normocephalic, atraumatic, pupils round and equal, sclerae anicteric, no conjunctival injection, moist mucus membranes Lungs: Normal respiratory effort. Heart: Abdomen: nondistended. Extremities: Warm, dry, well-perfused. remains tender over trochanteric bursa of right hip, right knee without effusion LLE: two plantar wounds without surrounding cellulitis, cellulitis of dorsum and toes improved, venous stasis disease of ankle but erythema improved - continues to be inflamed posterolaterally RLE: one plantar wound without surrounding cellulitis, no signifcant foot cellulitis, venous stasis disease of ankle but erythema improved - continues to be inflamed posterolaterally Neuro: Alert and oriented x 4, face symmetric, moves 4 extremities well Psych: Normal affect and behavior Results & Data Results & Data Vital Signs (Past 12 Hours) Vital Signs Temp Pulse Resp BP Pulse Ox O2 Del Method 09/03/24 15:06 36.7 C 64 18 128/82 95 Room Air 09/03/24 07:42 36.5 C 61 18 133/73 97 Room Air Laboratory Results 09/02/24 05:46 09/03/24 05:41 PG Care Time/CCT Total # of Minutes Spent Total Time Spent with Patient: Total time spent is greater than 50% in coordination of care (as documented) at patient's floor/unit and/or counseling patient: Coding Level of Care Code 46011 SUB INP/OBS CARE 2/35MIN Diagnoses Cellulitis L03.311 Site of cellulitis: trunk Site of cellulitis of trunk: abdominal wall Diabetic foot infection E11.628; L08.9 CHF (congestive heart failure) I50.9 Heart failure chronicity: acute on chronic Heart failure type: unspecified CKD (chronic kidney disease) stage 3, GFR 30-59 ml/min N18.31 Chronic kidney disease stage 3 subtype: stage 3a (GFR 45-59) Severe obstructive sleep apnea G47.33 Diabetes mellitus, type 2 E11.9 (1) Cellulitis Site of cellulitis: trunk Site of cellulitis of trunk: abdominal wall Qualified Code(s): L03.311 - Cellulitis of abdominal wall (3) CHF (congestive heart failure) Heart failure chronicity: acute on chronic Heart failure type: unspecified Qualified Code(s): I50.9 - Heart failure, unspecified (4) CKD (chronic kidney disease) stage 3, GFR 30-59 ml/min Chronic kidney disease stage 3 subtype: stage 3a (GFR 45-59) Qualified Code(s): N18.31 - Chronic kidney disease, stage 3a
[2024-09-04 07:17] LABS: Creatinine Clr Calc Pharmacy 84.7 ml/min
--- NOTE | 2024-09-04 08:48 | Podiatry Progress Note ---
Date of Service September 04, 2024 Assessment & Plan (1) Diabetic ulcer of left foot: (2) Diabetic ulcer of right foot: (3) Diabetic foot infection: Plan Bilateral plantar foot diabetic foot ulceration with associated cellulitis: Overall improvement noted to the character of the wounds since time of admission. There is decreased erythema and edema to the foot specifically noted decreased erythema to the bilateral heel which is likely secondary to excess pressure and shear force weightbearing in postop shoes. No active drainage from wounds. - Nonweightbearing left foot lower extremity. Weightbearing as tolerated for short distance transfer on the right lower extremity. Order: Low tide Cam walker right lower extremity. - Wounds evaluated. No elzbieta bone exposure or significant exposure of deep soft tissue structures. Wound beds are to the subcutaneous tissue layer with no indication for sharp debridement at this time. - Bilateral foot dressed with Optifoam ABD pad x 2, ABD pad to the anterior ankle, Archana and Tubigrip to the level of the knee. Change dressing once daily. Orders updated. - Continue IV vancomycin and cefepime pending wound culture and sensitivity results collected 09/01/2024. Patient is case discussed with Rhianna Melendrez of wound care. Orders for dressing changes updated as detailed above. Patient is in a difficult situation with bilateral foot wounds which are declining despite best efforts. Patient is high risk for readmission due to bilateral foot wounds that she is unable to adequately offload in home. Would strongly recommend planning for discharge to residential facility/rehab pending evaluation by PT/OT. High risk for readmission. Admission and Anticipated Discharge Date Admission Date: September 01, 2024 Subjective Patient seen resting comfortably in hospital bed. Reports decreased pain in her feet since the time of admission. She has remained nonweightbearing to the left lower extremity and using right lower extremity for short distance and transfer. Denies nausea vomiting fever chills. Review of Systems Review of Systems: Denies nausea, vomiting, fever, chills, shortness of breath, chest pain. Reports decreased but persistent pain to the bilateral foot and ankle which is new over the past week despite longstanding ulceration bilateral. All other systems reviewed and otherwise negative unless detailed above. Physical Exam Physical Exam: Const: Appears well developed and well nourished. Obese. No signs of acute distress present. CV: Extremities: No cyanosis. Bilateral lower extremity edema left greater than right. Capillary refill time is less than 2 seconds all digits of the bilateral foot. Posterior tibial and dorsalis pedis pulses are palpable bilateral. Skin: Thin atrophic skin with loss of hair growth bilateral lower extremity below the knee with stasis changes to the skin bilateral. Neuro: Loss of protective sensation to toes bilateral. Diminished protective sensation to bilateral plantar foot. Notable pain to palpation areas of ulce ration. Psych: Mood/Affect: Mood is normal. Affect is normal. Cognition: Orientation is intact to person, place and time. Focused lower extremity musculoskeletal exam: Leg: No pain with compression of the calf muscle. Lymphedema bilateral leg left greater than right. Ankles: Normal to inspection and palpation. No tenderness bilaterally. Motor strength is intact. Range of motion pain-free and unlimited. Posterior lateral right ankle is evaluated with no signs of external injury. There is a firm well-circumscribed 1.6 cm diameter subcutaneous soft tissue mass/nodule no signs of local soft tissue irritation or infection. On palpation there is generalized tenderness which is noted bilaterally. No focal increased tenderness to the area of concern for possible phlegmon noted on CT scan. No fluctuation to this area or sign of increased erythema or edema. Feet: Bilateral flatfoot deformity. Right foot: Diabetic ulcer subfifth metatarsal head extending the subcutaneous tissue layer. Scant active serous drainage. Periwound erythema and edema. No elzbieta probe to bone. Left foot: Well-healed third digit amputation. Diabetic ulceration subfifth metatarsal head and subfirst metatarsal head. Both ulcerations extend into the subcutaneous tissue layer with active serous drainage. No notable purulence or malodor. Periwound erythema and edema. I am able to probe wounds today and I am reaching firm soft tissue endpoint likely indicating exposed underlying joint capsule subfirst metatarsal head and tendinous structures at the base of the fifth with no elzbieta probe to bone. No undermining or tracking. Unable to express any fluid with pressure to the surrounding soft tissues. Results & Data Results & Data Vital Signs (Past 12 Hours) Vital Signs Temp Pulse Pulse Resp BP Pulse Ox O2 Del Method 09/04/24 07:29 36.4 C L 63 16 130/82 94 Room Air 09/03/24 22:35 69 13 97 FiO2 09/04/24 07:29 09/03/24 22:35 21 Coding Level of Care Code 17786 SUB INP/OBS CARE 2/35MIN Diagnoses Diabetic ulcer of left midfoot associated with type 2 diabetes mellitus, with fat layer exposed E11.621; L97.422 Diabetic foot ulcer location: midfoot Diabetes mellitus type: type 2 Non-pressure ulcer stage: with fat layer exposed Diabetic ulcer of right midfoot associated with type 2 diabetes mellitus, with fat layer exposed E11.621; L97.412 Diabetic foot ulcer location: midfoot Diabetes mellitus type: type 2 Non-pressure ulcer stage: with fat layer exposed Diabetic foot infection E11.628; L08.9 (1) Diabetic ulcer of left foot Diabetic foot ulcer location: midfoot Diabetes mellitus type: type 2 Non- pressure ulcer stage: with fat layer exposed Qualified Code(s): E11.621 - Type 2 diabetes mellitus with foot ulcer; L97.422 - Non-pressure chronic ulcer of left heel and midfoot with fat layer exposed (2) Diabetic ulcer of right foot Diabetic foot ulcer location: midfoot Diabetes mellitus type: type 2 Non- pressure ulcer stage: with fat layer exposed Qualified Code(s): E11.621 - Type 2 diabetes mellitus with foot ulcer; L97.412 - Non-pressure chronic ulcer of right heel and midfoot with fat layer exposed
--- NOTE | 2024-09-04 16:51 | Hospitalist Progress Note ---
Date of Service September 04, 2024 Assessment & Plan (1) Cellulitis: (2) Diabetic foot infection: (3) CHF (congestive heart failure): (4) CKD (chronic kidney disease) stage 3, GFR 30-59 ml/min: (5) Severe obstructive sleep apnea: (6) Diabetes mellitus, type 2: Plan 63-year-old woman with diabetes, diabetic neuropathy, and morbid obesity admitted with bilateral diabetic foot wounds and associated cellulitis. These have been treated in the outpatient setting at the wound clinic and have not been healing. 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 # bilateral diabetic foot ulcers with associated cellulitis. bilateral ankle cellulitis had significantly improved as of yesterday, foot cellulitis nearly resolved, if improved on exam tomorrow would stop vancomycin having completed 5 days of therapy, consider changing cefepime to oral agent for a few more days -consulted culinary arts teacher, CAM Walker was ordered -continue wound care, continue cefepime and vancomycin. creatinine remained stable at 1 -ordered PT and OT with weightbearing precautions as per culinary arts teacher recommendations, cam boot ordered # soft tissue mass of right ankle - noted on CT, possible phlegmon, not associated with the current wounds of unclear clinical significance we will simply monitor the area on exam # fall, right hip pain, right knee pain. exam unremarkable except for tender trochanteric bursa. evaluated for occult fractures, may have hip bursitis - xrays of hip and knee negative for fracture, ordered R hip/pelvis CT also negative for fracture or hematoma - severe OA of right hip - may have trochanteric bursitis, groin/anterior thigh/knee pain might be meralgia paresthetica - discussed positioning to help this, already on gabapentin - not improved and is limiting her rehab, increased oral medication to oxycodone, consulting orthopedics #DM II - w A1c 5.9, well controlled. On Jardiance (also w/ HF as below) - BSG AC/HS, SSI while inpatient. - blood glucoses at goal today #CHF - Hx HfPEF, continues on bumex/spironolactone, metoprolol, losartan, Jardiance. weight is up 10-12 kg since July hospitalization. leg edema has improved this admission on her usual medications -not in exacerbation -continue bumex, monitor weight and edema #Severe ANDRZEJ - continue CPAP HS #GERD- continue PPI BID, carafate, pepcid HS #Allergies- continue montelukast #morbid obesity BMI 48 #CKD-3 #left-sided ovarian cyst needing further evaluation as an outpatient #left-sided supraclavicular lymphadenopathy also needing follow-up as an outpatient DVT Proph: Lovenox SQ dispo: Needs SNF rehab Admission and Anticipated Discharge Date Admission Date: September 01, 2024 Subjective Feet and ankles are doing okay however she continues to have severe right lateral hip pain and also pain in the groin fold radiating down anterior thigh toward the knee tramadol has been ineffective and she has been getting intermittent doses of hydromorphone IV which just do not last very long Physical Exam 2 Physical Exam: PHYSICAL EXAMINATION Last 24h vital signs reviewed, see documentation in flowsheet General: sitting up in bed HEENT: Normocephalic, atraumatic, pupils round and equal, sclerae anicteric, no conjunctival injection, moist mucus membranes Lungs: Normal respiratory effort. Heart: Abdomen: nondistended. Extremities: Warm, dry, well-perfused. remains tender over trochanteric bursa of right hip, right knee without effusion - exam unchanged except that bilateral thigh and calf edema has improved since admission wounds examined yesterday: LLE: two plantar wounds without surrounding cellulitis, cellulitis of dorsum and toes improved, venous stasis disease of ankle but erythema improved - continues to be inflamed posterolaterally RLE: one plantar wound without surrounding cellulitis, no signifcant foot cellulitis, venous stasis disease of ankle but erythema improved - continues to be inflamed posterolaterally Neuro: Alert and oriented x 4, face symmetric, moves 4 extremities well Psych: Normal affect and behavior Results & Data Results & Data Vital Signs (Past 12 Hours) Vital Signs Temp Pulse Resp BP Pulse Ox O2 Del Method 09/04/24 15:49 36.6 C 110 H 16 138/80 92 Room Air 09/04/24 07:29 36.4 C L 63 16 130/82 94 Room Air Laboratory Results 09/02/24 05:46 09/04/24 06:08 PG Care Time/CCT Total # of Minutes Spent Total Time Spent with Patient: Total time spent is greater than 50% in coordination of care (as documented) at patient's floor/unit and/or counseling patient: Coding Level of Care Code 54002 SUB INP/OBS CARE MIN Diagnoses Cellulitis L03.311 Site of cellulitis: trunk Site of cellulitis of trunk: abdominal wall Diabetic foot infection E11.628; L08.9 CHF (congestive heart failure) I50.9 Heart failure chronicity: acute on chronic Heart failure type: unspecified CKD (chronic kidney disease) stage 3, GFR 30-59 ml/min N18.31 Chronic kidney disease stage 3 subtype: stage 3a (GFR 45-59) Severe obstructive sleep apnea G47.33 Diabetes mellitus, type 2 E11.9 (1) Cellulitis Site of cellulitis: trunk Site of cellulitis of trunk: abdominal wall Qualified Code(s): L03.311 - Cellulitis of abdominal wall (3) CHF (congestive heart failure) Heart failure chronicity: acute on chronic Heart failure type: unspecified Qualified Code(s): I50.9 - Heart failure, unspecified (4) CKD (chronic kidney disease) stage 3, GFR 30-59 ml/min Chronic kidney disease stage 3 subtype: stage 3a (GFR 45-59) Qualified Code(s): N18.31 - Chronic kidney disease, stage 3a
[2024-09-04] MEDS: ACETAMINOPHEN 325 MG TAB PO SCH (18:29)
[2024-09-04] MEDS: oxyCODONE HCL IR 5 MG TAB (IMMEDIATE RELEASE) PO PRN (19:44)
[2024-09-05] MEDS: VANCOMYCIN LEVEL ONE (06:02)
[2024-09-05 06:46] LABS: Creatinine Clr Calc Pharmacy 79.2 ml/min
--- NOTE | 2024-09-05 07:27 | Pharmacy Report ---
Pharmacy PK ABX Note - Date of Service September 05, 2024 - Assessment and Plan Assessment 09/05: Reviewed vancomycin level, predicting therapeutic AUC/NEO, continue current regimen. Serum creatinine stable. 09/03: * 63 year old F receiving cefepime and vancomycin for treatment of cellulitis of b/l LE w diabetic ulcer. Recently completed a course of Bactrim. * Pertinent microbiologic data includes: blood culture no growth to date * SCr very slowly trending up - may or may not be clinically significant. Will continue to follow daily. Plan Vancomycin * Maintenance dose: 1000 mg IV every 12 hours * Target AUC/NEO of 400-600 mg/L.hr * Random level of 15.2 mcg/mL associated with a therapeutic AUC of 531 mg/L.hr * Repeat random level in 48 hours if clinically indicated or if vancomycin continued. Pharmacy will continue to follow and will adjust dose/frequency as necessary. Thank you. Pharmacy has transitioned to AUC monitoring for vancomycin. AUC/NEO is the preferred PK/PD target and is associated with decreased risk of nephrotoxicity compared to traditional trough targets.
--- NOTE | 2024-09-05 11:30 | Orthopedic Consultation ---
Date of Service September 05, 2024 Assessment & Plan (1) Osteoarthritis of hip: She has bilateral advanced hip arthritis and is not a good surgical candidate at this time for hip replacement. She is aware of this and is hoping for an injection for her hip as she was to see Dr Beebe today for that. She can schedule a follow up with Dr Beebe for when she is discharged. PT/OT: She can wbat from her hip standpoint. Discussed with Dr Dickerson. History of Present Illness Reason for Consultation: . Requesting Physician: . Attending Physician: Nicolas Maya MD .63 year old patient admitted with bilateral lower extremity diabetic foot ulcers/cellulitis, has been going to wound care and did see Dr Somers. We were consulted for right hip pain. She has chronic bilateral hip pain related to advanced arthritis and has received intraarticular steroid injections in the past, at least for the right hip by Dr. Beebe. This did give her some temporary relief. She did apparently have a fall about 8 days ago says her right hip pain is some worse now. Describes the pain in the lateral hip, groin and t high to the knee. She has been able to ambulate and uses a walker. Allergies Allergy/AdvReac Type Severity Reaction Status Date / Time Corticosteroids Allergy Severe Anaphylaxis Unverified 09/01/24 09:54 (Glucocorticoids) clindamycin Allergy Intermediate Rash Verified 09/01/24 09:54 dog dander Allergy Intermediate Rash Verified 09/01/24 09:54 iron [From Venofer] Allergy Intermediate Rash Verified 09/01/24 09:54 morphine Allergy Intermediate mouth and Verified 09/01/24 09:54 face swells Penicillins Allergy Intermediate rash/hives Verified 09/01/24 09:54 adhesive Allergy Mild Skin rash Verified 09/01/24 09:54 localized zolpidem Allergy Unknown Unknown Verified 09/01/24 09:54 pregabalin AdvReac Intermediate "makes Verified 09/01/24 09:54 goofy" Home Medications Medication Instructions Recorded Confirmed Type calcium carbonate (Tums) 900 mg PO QAM 03/03/22 09/01/24 History cyanocobalamin (vitamin B-12) 1,000 mcg PO QAM 03/03/22 09/01/24 History 1,000 mcg tablet (Vitamin B-12) albuterol sulfate 2.5 mg/3 mL 2.5 mg (3 mL) inhalation Q6H PRN 06/25/23 09/01/24 Rx (0.083 %) solution for nebulization Shortness Of Breath #90 mL aspirin 81 mg tablet,delayed 81 mg PO QAM 06/25/23 09/01/24 History release duloxetine 60 mg capsule,delayed 60 mg PO BID 06/25/23 09/01/24 History release (Cymbalta) diclofenac sodium 1 % topical gel 4 g EXT QID #1 tube 08/30/23 09/01/24 Rx (Voltaren Arthritis Pain) nystatin 100,000 unit/gram topical 1 applic topical TID PRN yeast 08/30/23 09/01/24 Rx powder rash under breasts, abdominal skin folds #30 grams CPAP Supplies #1 ea 09/28/23 09/01/24 Rx CPAP Machine #1 ea 09/29/23 09/01/24 Rx cetirizine 10 mg tablet (Zyrtec) 10 mg PO BID 10/20/23 09/01/24 History empagliflozin 10 mg tablet 10 mg PO QAM #90 tabs 12/02/23 09/01/24 Rx (Jardiance) potassium chloride 20 mEq 20 meq PO QAM 12/24/23 09/01/24 History tablet,extended release(part/cryst) (Klor-Con M) montelukast 10 mg tablet 10 mg PO QPM #90 tabs 01/03/24 09/01/24 Rx (Singulair) albuterol sulfate 90 mcg/actuation 2 puff inhalation Q4H PRN 01/04/24 09/01/24 Rx aerosol inhaler (Ventolin HFA) Shortness Of Breath Or Wheezing #18 grams epinephrine 0.3 mg/0.3 mL 0.3 mg IM UD PRN anaphylaxis 01/06/24 09/01/24 History injection, auto-injector famotidine 20 mg tablet (Pepcid) 20 mg PO HS #90 tabs 01/10/24 09/01/24 Rx acetaminophen 500 mg tablet 1,000 mg (2 x 500 mg) PO TID PRN 02/04/24 09/01/24 Rx fever or pain #90 tabs allopurinol 100 mg tablet 100 mg PO BID #180 tabs 03/17/24 09/01/24 Rx pantoprazole 40 mg tablet,delayed 40 mg PO BID #90 tabs 05/31/24 09/01/24 Rx release (Protonix) bupropion HCl 150 mg 24 hr tablet, 150 mg PO QAM #90 tabs 06/08/24 09/01/24 Rx extended release gabapentin 400 mg capsule 400 mg PO QID #360 caps 06/30/24 09/01/24 Rx losartan 25 mg tablet 25 mg PO QAM 07/23/24 09/01/24 History nystatin 100,000 unit/gram topical 1 applic EXT TID PRN FLARE 07/23/24 09/01/24 History ointment multivitamin 1 tab PO QAM #90 tabs 07/24/24 09/01/24 Rx metoprolol succinate 25 mg 25 mg PO DAILY 07/31/24 09/01/24 History tablet,extended release 24 hr spironolactone 25 mg tablet 25 mg PO BID 07/31/24 09/01/24 History sucralfate 1 gram tablet (Carafate) 1 g PO AC PRN heartburn #30 tabs 07/31/24 09/01/24 Rx buspirone 15 mg tablet 15 mg PO TID 08/01/24 09/01/24 History bumetanide 1 mg tablet 2 mg PO QAM 09/01/24 09/01/24 History cholecalciferol (vitamin D3) 50 2,000 unit PO DAILY 09/01/24 09/01/24 History mcg (2,000 unit) capsule (Vitamin D3) hydroxyzine HCl 25 mg tablet 25 mg PO HS PRN Allergy Symptoms 09/01/24 09/01/24 History sennosides 8.6 mg tablet (Senokot) 8.6 mg PO BID 09/01/24 09/01/24 History Past Med/Surg History Problem List (Updated 09/07/24 @ 21:21 by CARRIE Patterson) Dietary counseling and surveillance Mass of soft tissue of ankle Ambulatory dysfunction (Acute) Diabetic foot infection (Acute) Diabetic foot infection Left radial head fracture Diabetic ulcer of left foot Diabetic ulcer of right foot Venous ulcers of both lower extremities Adnexal cyst Postprandial nausea Chronic diastolic (congestive) heart failure Iron deficiency anemia Iron deficiency anemia Perforated ear drum Acute osteomyelitis of toe of left foot (Acute) Diabetic infection of left foot (Acute) Toe gangrene Cellulitis of both lower extremities 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 Status post panniculectomy Musculoskeletal pain Cellulitis of left leg (Acute) Weakness (Acute) Weight gain (Acute) CHF (congestive heart failure) (Acute) Panniculitis (Acute) Acute kidney injury superimposed on CKD Obesity (Acute) Failure of outpatient treatment (Acute) Cellulitis (Acute) Supraclavicular lymphadenopathy Acute on chronic heart failure with preserved ejection fraction Open wound of abdomen (Acute) Morbid obesity HAYES (dyspnea on exertion) (Acute) CKD (chronic kidney disease) stage 3, GFR 30-59 ml/min (Acute) Acute exacerbation of CHF (congestive heart failure) (Acute) Cellulitis (Acute) Cellulitis of suprapubic region Acute on chronic heart failure VARINDER (acute kidney injury) Osteoarthritis of hip Constipation Lymphoma Hip pain, right Failure of outpatient treatment (Acute) CRF (chronic renal failure) (Acute) Edema of both lower extremities (Acute) Fluid overload (Acute) Edema of abdominal wall (Acute) Ulcer of both feet Volume overload Hx MRSA infection 09/2021 s/p left knee infection > resolved > continues with doxycycline daily for prevention Lymphadenopathy of left cervical region Urticaria Chronic ulcer of left foot with fat layer exposed Diabetes mellitus type 2 with neurological manifestations Candidiasis of skin Solitary kidney, congenital Bilateral hip pain Low back pain Weakness (Acute) Lower extremity edema (Acute) CHF (congestive heart failure) (Acute) Abdominal pannus Fatty liver Dependent lymphedema Stage 3b chronic kidney disease Anemia reason for procedure. iron infusions recently. 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 Other ovarian cyst, left side Vitamin D deficiency Peripheral neuropathy Lumbar spinal stenosis 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- DISCOVERED WITH INCIDENTAL IMAGING Gout CKD (chronic kidney disease) stage 3, GFR 30-59 ml/min monitoring Chronic back pain Acid reflux Medical History Diabetic foot ulcer Abdominal wall cellulitis Hypokalemia Mast cell disease B-cell lymphoma Hx-TIA (transient ischemic attack) 2017 > ASA for prevention > no residual effects Hx of sepsis 09/2021 r/t left knee infection Hypertension Lumbar spinal stenosis Arthritis Allergic rhinitis Gout Other ovarian cyst, left side present, just monitoring Acid reflux Severe obstructive sleep apnea cpap Stage 3 chronic kidney disease follows with Dr. Wood Fatty liver CHF (congestive heart failure) follows with Ashlyn Griffin Solitary kidney, congenital Diabetes mellitus, type 2 Ulcer of foot one ulcer present to bottom of bilat feet > follows with wound clinic at [place], improving per pt History of COVID-19 09/2021 Iron deficiency anemia Venous stasis of both lower extremities MDD (major depressive disorder), recurrent episode, moderate Ambulatory dysfunction uses walker Depression with anxiety Degenerative joint disease, shoulder, right Lymphedema left leg and abdomen / chronic Asthma well controlled, rare res inh use Hyperlipidemia no meds Surgical History Hx of biopsy (12/29/23) Left Neck Lymph Node Biopsy(Left) - Yohan Maldonado, DO, FACS History of insertion of central venous access port removed in 2022 History of revision of total replacement of left knee joint History of cardiac cath remote hx over 20 yrs ago, no stents History of colonoscopy History of esophagogastroduodenoscopy (EGD) History of bilateral knee replacement (10/16/22) H/O knee surgery (12/2021) L knee washout w/ polyexchange S/P tonsillectomy and adenoidectomy Status post total shoulder arthroplasty (10/17/18) right History of carpal tunnel release B/L H/O ventral hernia repair History of appendectomy History of cholecystectomy Family History Mother Diabetes Coronary heart disease Myocardial infarction S/P CABG x 3 Hypertension Gallbladder disease Sister Hodgkins lymphoma Brother Kidney disease Grandmother Breast cancer Aunt Ovarian cancer Father , 02/11/20. Peripheral vascular disease Daughter Diabetes Other Cancer No family history of adverse response to anesthesia Denies family history of Prostate cancer Colorectal cancer Social History Smoking Status: Never smoker Age Started Using Tobacco: 22; Age Quit Using Tobacco: 24; packs per day: 1; Second Hand Exposure: No; Do You Dip or Chew Tobacco: No; Hx Alcohol Use: No Hx Substance Use: No Preferred Language: [place]ican 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 Ability: Effective Visual Impairment: Limited Hearing Ability: Normal Environmental Issues Instructor Required: No Beliefs That Will Affect Care: None marital status: marital status details: ; lives with parents & 1 daughter Current Living Situation: Family Current Living Situation Comment: Lives with mother & daughter current occupational status: disabled other: worked in [place] in [employer]; worked for [employer] Feels Safe at Home: Yes Childhood Exposure to Second-Hand Smoke: No Diet: regular Diet Comment: regular caffeine: No Dental Care, Regularly: No Physical Activity Frequency: Does not Exercise Seatbelt Use: always Sunscreen Use: Yes Assistive Devices: Walker Review of Systems All systems reviewed & are unremarkable except as noted in HPI & below. Physical Exam . alert and oriented. NAD. Sitting in bedside chair. Right hip: + pain and stiffness with range of motion of the hip, particularly internal rotation. She is able to actively lift her leg/flex hip. Results & Data Results & Data Laboratory Results . Diagnostic Findings .xrays reviewed and show advanced bilateral hip arthritis. PG Care Time/CCT Total # of Minutes Spent Total Time Spent with Patient: Total time spent is greater than 50% in coordination of care (as documented) at patient's floor/unit and/or counseling patient: Coding Level of Care Code 42617 IN/OBS CONSULT LVL 3,45M Diagnoses Osteoarthritis of hip M16.9
[2024-09-05] MEDS: ONDANSETRON INJ 2 MG/ML 2 ML VIAL IV PRN (13:15)
--- NOTE | 2024-09-05 16:49 | Hospitalist Progress Note ---
Date of Service September 05, 2024 Assessment & Plan (1) Cellulitis: (2) Diabetic foot infection: (3) CHF (congestive heart failure): (4) CKD (chronic kidney disease) stage 3, GFR 30-59 ml/min: (5) Severe obstructive sleep apnea: (6) Diabetes mellitus, type 2: Plan 63-year-old woman with diabetes, diabetic neuropathy, and morbid obesity admitted with bilateral diabetic foot wounds and associated cellulitis. These have been treated in the outpatient setting at the wound clinic and have not been healing. 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 # bilateral diabetic foot ulcers with associated cellulitis. bilateral ankle cellulitis had significantly improved as of yesterday, foot cellulitis nearly resolved, Discontinue vancomycin Continue cefepime -consulted machine stuffer automatic, CAM Walker was ordered -continue wound care, continue cefepime and vancomycin. creatinine remained stable at 1 -ordered PT and OT with weightbearing precautions as per machine stuffer automatic recommendations, cam boot ordered # soft tissue mass of right ankle - noted on CT, possible phlegmon, not associated with the current wounds of unclear clinical significance we will simply monitor the area on exam # fall, right hip pain, right knee pain. exam unremarkable except for tender trochanteric bursa. evaluated for occult fractures, may have hip bursitis - xrays of hip and knee negative for fracture, ordered R hip/pelvis CT also negative for fracture or hematoma - severe OA of right hip - may have trochanteric bursitis, groin/anterior thigh/knee pain might be meralgia paresthetica - discussed positioning to help this, already on gabapentin - not improved and is limiting her rehab, increased oral medication to oxycodone Evaluated by orthopedics. This is due to advanced hip arthritis. Not a candidate for surgery. Patient will need Ortho follow-up once discharged #DM II - w A1c 5.9, well controlled. On Jardiance (also w/ HF as below) - BSG AC/HS, SSI while inpatient. - blood glucoses at goal today #CHF - Hx HfPEF, continues on bumex/spironolactone, metoprolol, losartan, Jardiance. weight is up 10-12 kg since July hospitalization. leg edema has improved this admission on her usual medications -not in exacerbation -continue bumex, monitor weight and edema #Severe ANDRZEJ - continue CPAP HS #GERD- continue PPI BID, carafate, pepcid HS #Allergies- continue montelukast #morbid obesity BMI 48 #CKD-3 #left-sided ovarian cyst needing further evaluation as an outpatient #left-sided supraclavicular lymphadenopathy also needing follow-up as an outpatient DVT Proph: Lovenox SQ dispo: Needs SNF rehab Admission and Anticipated Discharge Date Admission Date: September 01, 2024 Subjective Patient feels well overall. Says that her cellulitis is improving. Complains of hip pain. Denies chest pain or shortness of breath. Review of Systems Review of Systems: All systems reviewed & are unremarkable except as noted in Subjective Physical Exam Physical Exam: General: Awake, conversant Heart: S1, S2/regular rate and rhythm, no murmur rubs or gallops Lungs: Clear to auscultation bilaterally. Normal effort Abdomen: Soft/nontender/nondistended. No hepatosplenomegaly Extremities: No clubbing/cyanosis. No edema. Leg cellulitis improving. Redness improving. Behavior: Appropriate, cooperative Results & Data Results & Data Vital Signs (Past 12 Hours) Vital Signs Temp Pulse Resp BP Pulse Ox O2 Del Method 09/05/24 15:46 36.5 C 61 16 130/81 95 Room Air 09/05/24 07:45 36.3 C L 59 L 16 132/85 96 Room Air Laboratory Results Abnormal lab results 09/04/24 09/05/24 09/05/24 Range/Units 20:22 07:49 11:35 POC Glucose 156 H 108 H 115 H (70-99) mg/dl PG Care Time/CCT Total # of Minutes Spent Total Time Spent with Patient: Total time spent is greater than 50% in coordination of care (as documented) at patient's floor/unit and/or counseling patient: Coding Level of Care Code 10176 SUB INP/OBS CARE 235MIN Diagnoses Cellulitis L03.311 Site of cellulitis: trunk Site of cellulitis of trunk: abdominal wall Diabetic foot infection E11.628; L08.9 CHF (congestive heart failure) I50.9 Heart failure chronicity: acute on chronic Heart failure type: unspecified CKD (chronic kidney disease) stage 3, GFR 30-59 ml/min N18.31 Chronic kidney disease stage 3 subtype: stage 3a (GFR 45-59) Severe obstructive sleep apnea G47.33 Diabetes mellitus, type 2 E11.9 (1) Cellulitis Site of cellulitis: trunk Site of cellulitis of trunk: abdominal wall Qualified Code(s): L03.311 - Cellulitis of abdominal wall (3) CHF (congestive heart failure) Heart failure chronicity: acute on chronic Heart failure type: unspecified Qualified Code(s): I50.9 - Heart failure, unspecified (4) CKD (chronic kidney disease) stage 3, GFR 30-59 ml/min Chronic kidney disease stage 3 subtype: stage 3a (GFR 45-59) Qualified Code(s): N18.31 - Chronic kidney disease, stage 3a
[2024-09-05] MEDS: NYSTATIN POWDER 15GM BTL EXT PRN (20:14)
[2024-09-06 07:27] LABS: Creatinine Clr Calc Pharmacy 75.5 ml/min
--- NOTE | 2024-09-06 11:42 | Hospitalist Progress Note ---
Date of Service September 06, 2024 Assessment & Plan (1) Cellulitis: (2) Diabetic foot infection: (3) CHF (congestive heart failure): (4) CKD (chronic kidney disease) stage 3, GFR 30-59 ml/min: (5) Severe obstructive sleep apnea: (6) Diabetes mellitus, type 2: Plan 63-year-old woman with diabetes, diabetic neuropathy, and morbid obesity admitted with bilateral diabetic foot wounds and associated cellulitis. These have been treated in the outpatient setting at the wound clinic and have not been healing. Recent wound culture grew MRSA and she was on bactrim CADDIE. # bilateral diabetic foot ulcers with associated cellulitis. bilateral ankle cellulitis had significantly improved as of yesterday, foot cellulitis nearly resolved, Discontinue vancomycin Switch from cefepime to p.o. Keflex. -consulted test cell technician, CAM Walker was ordered -continue wound care, continue cefepime and vancomycin. creatinine remained stable at 1 -ordered PT and OT with weightbearing precautions as per test cell technician recommendations, cam boot ordered # soft tissue mass of right ankle - noted on CT, possible phlegmon, not associated with the current wounds of unclear clinical significance we will simply monitor the area on exam # fall, right hip pain, right knee pain. exam unremarkable except for tender trochanteric bursa. evaluated for occult fractures, may have hip bursitis - xrays of hip and knee negative for fracture, ordered R hip/pelvis CT also negative for fracture or hematoma - severe OA of right hip - may have trochanteric bursitis, groin/anterior thigh/knee pain might be meralgia paresthetica - discussed positioning to help this, already on gabapentin - not improved and is limiting her rehab, increased oral medication to oxycodone Evaluated by orthopedics. This is due to advanced hip arthritis. Not a candidate for surgery. Patient will need Ortho follow-up once discharged #DM II - w A1c 5.9, well controlled. On Jardiance (also w/ HF as below) - BSG AC/HS, SSI while inpatient. - blood glucoses at goal today #CHF - Hx HfPEF, continues on bumex/spironolactone, metoprolol, losartan, Jardiance. weight is up 10-12 kg since July hospitalization. leg edema has improved this admission on her usual medications -not in exacerbation -continue bumex, monitor weight and edema #Severe ANDRZEJ - continue CPAP HS #GERD- continue PPI BID, carafate, pepcid HS #Allergies- continue montelukast #morbid obesity BMI 48 #CKD-3 #left-sided ovarian cyst needing further evaluation as an outpatient #left-sided supraclavicular lymphadenopathy also needing follow-up as an outpatient DVT Proph: Lovenox SQ dispo: Needs SNF rehab. Case management working on it Admission and Anticipated Discharge Date Admission Date: September 01, 2024 Subjective Patient feels well overall. Denies chest pain or shortness of breath. Review of Systems Review of Systems: All systems reviewed & are unremarkable except as noted in Subjective Physical Exam Physical Exam: General: Awake, conversant Heart: S1, S2/regular rate and rhythm, no murmur rubs or gallops Lungs: Clear to auscultation bilaterally. Normal effort Abdomen: Soft/nontender/nondistended. No hepatosplenomegaly Extremities: No clubbing/cyanosis. No edema. Leg cellulitis improving. Redness improving. Behavior: Appropriate, cooperative Results & Data Results & Data Vital Signs (Past 12 Hours) Vital Signs Temp Pulse Resp BP Pulse Ox O2 Del Method 09/06/24 07:36 36.7 C 66 16 118/79 92 Room Air PG Care Time/CCT Total # of Minutes Spent Total Time Spent with Patient: Total time spent is greater than 50% in coordination of care (as documented) at patient's floor/unit and/or counseling patient: Coding Level of Care Code 92831 SUB INP/OBS CARE 2/35MIN Diagnoses Cellulitis L03.311 Site of cellulitis: trunk Site of cellulitis of trunk: abdominal wall Diabetic foot infection E11.628; L08.9 CHF (congestive heart failure) I50.9 Heart failure chronicity: acute on chronic Heart failure type: unspecified CKD (chronic kidney disease) stage 3, GFR 30-59 ml/min N18.31 Chronic kidney disease stage 3 subtype: stage 3a (GFR 45-59) Severe obstructive sleep apnea G47.33 Diabetes mellitus, type 2 E11.9 (1) Cellulitis Site of cellulitis: trunk Site of cellulitis of trunk: abdominal wall Qualified Code(s): L03.311 - Cellulitis of abdominal wall (3) CHF (congestive heart failure) Heart failure chronicity: acute on chronic Heart failure type: unspecified Qualified Code(s): I50.9 - Heart failure, unspecified (4) CKD (chronic kidney disease) stage 3, GFR 30-59 ml/min Chronic kidney disease stage 3 subtype: stage 3a (GFR 45-59) Qualified Code(s): N18.31 - Chronic kidney disease, stage 3a
--- NOTE | 2024-09-06 12:42 | Podiatry Progress Note ---
Date of Service September 06, 2024 Assessment & Plan (1) Diabetic ulcer of left foot: (2) Diabetic ulcer of right foot: (3) Diabetic foot infection: Plan Bilateral plantar foot diabetic foot ulceration with associated cellulitis: Overall improvement noted to the character of the wounds since time of admission. Encroaching epithelial tissue circumferentially to the borders of all wounds. Erythema and edema to the periwound soft tissue has resolved. Scant drainage to wound dressings with no active drainage from wounds. - Nonweightbearing left foot lower extremity. - Weightbearing as tolerated for short distance transfer on the right lower extremity. Order: Low tide Cam walker right lower extremity. - Bilateral foot dressed with Optifoam border and Tubigrip to the level of the knee. Change dressing once daily. Orders updated. - Continues IV vancomycin and cefepime. Orders for dressing changes updated as detailed above. Patient is in a difficult situation with bilateral foot wounds which have declined despite outpatient offloading efforts. Patient is high risk for readmission due to bilateral foot wounds that she is unable to adequately offload in home. Would strongly recommend planning for discharge to [facility] facility/rehab pending evaluation by PT/OT. High risk for readmission. Admission and Anticipated Discharge Date Admission Date: September 01, 2024 Subjective Patient seen resting comfortably in hospital bed. At this point reporting only mild discomfort to the left foot. She has been fit with a short leg Cam walker which has been modified by orthotics team to further offload area of ulceration on the right foot and is using the boot for pivot and transfer. Reports doing well remaining nonweightbearing to the left foot and seems to understand the importance of nonweightbearing recommendation for this foot given the failure of previous offloading attempts. Patient is in agreement that discharge to [facility] facility would be optimal for continued offloading and wound healing. Denies nausea vomiting fever chills. Review of Systems Review of Systems: Denies nausea, vomiting, fever, chills, shortness of breath, chest pain. Reports little to no pain in right foot and only mild persistent pain with pressure to the left plantar foot. All other systems reviewed and otherwise negative unless detailed above. Physical Exam Physical Exam: Const: Appears well developed and well nourished. Obese. No signs of acute distress present. CV: Extremities: No cyanosis. Bilateral lower extremity edema left greater than right. Capillary refill time is less than 2 seconds all digits of the bilateral foot. Posterior tibial and dorsalis pedis pulses are palpable bilateral. Skin: Thin atrophic skin with loss of hair growth bilateral lower extremity below the knee with stasis changes to the skin bilateral. Neuro: Loss of protective sensation to toes bilateral. Diminished protective sensation to bilateral plantar foot. Notable pain to palpation areas of ulceration. Psych: Mood/Affect: Mood is normal. Affect is normal. Cognition: Orientation is intact to person, place and time. Focused lower extremity musculoskeletal exam: Leg: No pain with compression of the calf muscle. Lymphedema bilateral leg left greater than right. Ankles: Normal to inspection and palpation. No tenderness bilaterally. Motor strength is intact. Range of motion pain-free and unlimited. Posterior lateral right ankle is evaluated with no signs of external injury. There is a firm well-circumscribed 1.6 cm diameter subcutaneous soft tissue mass/nodule no signs of local soft tissue irritation or infection. On palpation there is generalized tenderness which is noted bilaterally. No focal increased tend erness to the area of concern for possible phlegmon noted on CT scan. No fluctuation to this area or sign of increased erythema or edema. Feet: Bilateral flatfoot deformity. Right foot: Diabetic ulcer subfifth metatarsal head extending the subcutaneous tissue layer. Scant active serous drainage to dressing. Periwound erythema and edema have resolved. No elzbieta probe to bone. Left foot: Well-healed third digit amputation. Diabetic ulceration subfifth metatarsal head and subfirst metatarsal head. Encroaching epithelial tissue circumferentially to both wounds. Both ulcerations extend into the subcutaneous tissue layer with active serous drainage. No notable purulence or malodor. Periwound erythema and edema has resolved. No undermining or tracking. Unable to express any fluid with pressure to the surrounding soft tissues. Results & Data Results & Data Vital Signs (Past 12 Hours) Vital Signs Temp Pulse Resp BP Pulse Ox O2 Del Method 09/06/24 07:36 36.7 C 66 16 118/79 92 Room Air Coding Level of Care Code 31774 SUB INP/OBS CARE 2/MIN Diagnoses Diabetic ulcer of left midfoot associated with type 2 diabetes mellitus, with fat layer exposed E11.621; L97.422 Diabetes mellitus type: type 2 Diabetic foot ulcer location: midfoot Non-pressure ulcer stage: with fat layer exposed Diabetic ulcer of right midfoot associated with type 2 diabetes mellitus, with fat layer exposed E11.621; L97.412 Diabetes mellitus type: type 2 Diabetic foot ulcer location: midfoot Non-pressure ulcer stage: with fat layer exposed Diabetic foot infection E11.628; L08.9 (1) Diabetic ulcer of left foot Diabetes mellitus type: type 2 Diabetic foot ulcer location: midfoot Non- pressure ulcer stage: with fat layer exposed Qualified Code(s): E11.621 - Type 2 diabetes mellitus with foot ulcer; L97.422 - Non-pressure chronic ulcer of left heel and midfoot with fat layer exposed (2) Diabetic ulcer of right foot Diabetes mellitus type: type 2 Diabetic foot ulcer location: midfoot Non- pressure ulcer stage: with fat layer exposed Qualified Code(s): E11.621 - Type 2 diabetes mellitus with foot ulcer; L97.412 - Non-pressure chronic ulcer of right heel and midfoot with fat layer exposed
[2024-09-06] MEDS: cephALEXin 500 MG CAP PO SCH (17:13)
--- NOTE | 2024-09-07 14:41 | Hospitalist Progress Note ---
Date of Service September 07, 2024 Assessment & Plan (1) Cellulitis: (2) Diabetic foot infection: (3) CHF (congestive heart failure): (4) CKD (chronic kidney disease) stage 3, GFR 30-59 ml/min: (5) Severe obstructive sleep apnea: (6) Diabetes mellitus, type 2: Plan 63-year-old woman with diabetes, diabetic neuropathy, and morbid obesity admitted with bilateral diabetic foot wounds and associated cellulitis. These have been treated in the outpatient setting at the wound clinic and have not been healing. 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 # bilateral diabetic foot ulcers with associated cellulitis. bilateral ankle cellulitis had significantly improved as of yesterday, foot cellulitis nearly resolved, Discontinue vancomycin Switch from cefepime to p.o. Keflex. -consulted escalator service mechanic, CAM Walker was ordered -continue wound care, -ordered PT and OT with weightbearing precautions as per escalator service mechanic recommendations, cam boot ordered Patient will be discharged to rehab # soft tissue mass of right ankle - noted on CT, possible phlegmon, not associated with the current wounds of unclear clinical significance we will simply monitor the area on exam # fall, right hip pain, right knee pain. exam unremarkable except for tender trochanteric bursa. evaluated for occult fractures, may have hip bursitis - xrays of hip and knee negative for fracture, ordered R hip/pelvis CT also negative for fracture or hematoma - severe OA of right hip - may have trochanteric bursitis, groin/anterior thigh/knee pain might be meralgia paresthetica - discussed positioning to help this, already on gabapentin - not improved and is limiting her rehab, increased oral medication to oxycodone Evaluated by orthopedics. This is due to advanced hip arthritis. Not a candidate for surgery. Patient will need Ortho follow-up once discharged #DM II - w A1c 5.9, well controlled. On Jardiance (also w/ HF as below) - BSG AC/HS, SSI while inpatient. - blood glucoses at goal today #CHF - Hx HfPEF, continues on bumex/spironolactone, metoprolol, losartan, Jardiance. weight is up 10-12 kg since July hospitalization. leg edema has improved this admission on her usual medications -not in exacerbation -continue bumex, monitor weight and edema #Severe ANDRZEJ - continue CPAP HS #GERD- continue PPI BID, carafate, pepcid HS #Allergies- continue montelukast #morbid obesity BMI 48 #CKD-3 #left-sided ovarian cyst needing further evaluation as an outpatient #left-sided supraclavicular lymphadenopathy also needing follow-up as an outpatient DVT Proph: Lovenox SQ dispo: Needs SNF rehab. Case management working on it Admission and Anticipated Discharge Date Admission Date: September 01, 2024 Subjective Patient feels well in general. Denies chest pain or shortness of breath. Review of Systems Review of Systems: All systems reviewed & are unremarkable except as noted in Subjective Physical Exam Physical Exam: General: Awake, conversant Heart: S1, S2/regular rate and rhythm, no murmur rubs or gallops Lungs: Clear to auscultation bilaterally. Normal effort Abdomen: Soft/nontender/nondistended. No hepatosplenomegaly Extremities: No clubbing/cyanosis. No edema. Leg cellulitis improving. Redness improving. Behavior: Appropriate, cooperative Results & Data Results & Data Vital Signs (Past 12 Hours) Vital Signs Temp Pulse Resp BP BP Pulse Ox O2 Del Method 09/07/24 13:54 36.7 C 63 18 126/77 96 Room Air 09/07/24 07:25 36.4 C L 60 16 116/67 93 Room Air Laboratory Results Abnormal lab results 09/07/24 09/07/24 Range/Units 07:13 11:23 POC Glucose 101 H 105 H (70-99) mg/dl PG Care Time/CCT Total # of Minutes Spent Total Time Spent with Patient: Total time spent is greater than 50% in coordination of care (as documented) at patient's floor/unit and/or counseling patient: Coding Level of Care Code 87159 SUB INP/OBS CARE 2/35MIN Diagnoses Cellulitis L03.311 Site of cellulitis: trunk Site of cellulitis of trunk: abdominal wall Diabetic foot infection E11.628; L08.9 CHF (congestive heart failure) I50.9 Heart failure chronicity: acute on chronic Heart failure type: unspecified CKD (chronic kidney disease) stage 3, GFR 30-59 ml/min N18.31 Chronic kidney disease stage 3 subtype: stage 3a (GFR 45-59) Severe obstructive sleep apnea G47.33 Diabetes mellitus, type 2 E11.9 (1) Cellulitis Site of cellulitis: trunk Site of cellulitis of trunk: abdominal wall Qualified Code(s): L03.311 - Cellulitis of abdominal wall (3) CHF (congestive heart failure) Heart failure chronicity: acute on chronic Heart failure type: unspecified Qualified Code(s): I50.9 - Heart failure, unspecified (4) CKD (chronic kidney disease) stage 3, GFR 30-59 ml/min Chronic kidney disease stage 3 subtype: stage 3a (GFR 45-59) Qualified Code(s): N18.31 - Chronic kidney disease, stage 3a
--- NOTE | 2024-09-08 09:59 | Podiatry Progress Note ---
Date of Service September 08, 2024 Assessment & Plan (1) Diabetic ulcer of left foot: (2) Diabetic ulcer of right foot: (3) Diabetic foot infection: Plan Bilateral plantar foot diabetic foot ulceration with associated cellulitis: Overall improvement noted to the character of the wounds since time of admission. Encroaching epithelial tissue circumferentially to the borders of all wounds. Erythema and edema to the periwound soft tissue has resolved. Scant drainage to wound dressings with no active drainage from wounds. - Bilateral foot wounds debrided as detailed in procedure note below. - Nonweightbearing left foot lower extremity. Weightbearing as tolerated for short distance transfer on the right lower extremity with low tide Cam walker in place to the right foot using walker for stability. - Bilateral foot dressed with Optifoam border and Tubigrip to the level of the knee. Change dressing once daily. - Antibiotics de-escalated to p.o. Keflex. - Patient awaiting discharge to [facility] facility. Surgical Excisional Debridement: Indication:Removal of necrotic tissue to promote healing Pre-op diagnosis: Diabetic ulcer subfifth metatarsal base right, diabetic ulcer subfifth metatarsal base left, diabetic ulcer subfirst metatarsal head left Post-op diagnosis: Same Procedure: Surgical excisional debridment bilateral subfifth metatarsal base and subfirst metatarsal head left ulceration Surgeon: Jerrell Somers DPM Anesthesia: None Bleeding:Minimal Disposition: Tolerated well Procedure: Informed consent obtained, Time Out taken. Patient understands and agrees to procedure. Excisional debridement was carried out of bilateral subfifth metatarsal base ulceration and left subfirst metatarsal head ulceration consisting of hyperkeratotic, slough, fibrotic and subcutaneous tissue was carried out utilizing a curette and 15 blade. Anesthesia-none. Patient tolerated the procedure well. Bleeding-minimal. Controlled with-direct pressure. Post-debridement measurements: Right foot subfifth metatarsal base: 0.8 x 0.7 x 0.3 cm. . left foot subfifth metatarsal base: 1.5 x 1.5 x 0.3 left foot subfirst met head: 1.5 x 1.5 x 0.2 cm. A total of 5.06 cm2 were debrided. Patient encouraged to follow-up with wound care within 1 week of discharge. Admission and Anticipated Discharge Date Admission Date: September 01, 2024 Subjective Patient resting comfortably in hospital bed finishing breakfast. She reports resolved pain in the right foot with mild persistent pain to the left. Denies nausea vomiting fever chills. She reports doing well with a cam walker on the right foot and remaining nonweightbearing to the left for transfers and short distance. She is awaiting placement to [facility] facility. Reports doing well with the cam walker on the right foot and remaining nonweightbearing to the left. She has been working with PT OT for transfers. Review of Systems Review of Systems: Denies nausea, vomiting, fever, chills, shortness of breath, chest pain. Reports little to no pain in right foot and only mild persistent pain with pressure to the left plantar foot. All other systems reviewed and otherwise negative unless detailed above. Physical Exam Physical Exam: Const: Appears well developed and well nourished. Obese. No signs of acute distress present. CV: Extremities: No cyanosis. Bilateral lower extremity edema left greater than right. Capillary refill time is less than 2 seconds all digits of the bilateral foot. Posterior tibial and dorsalis pedis pulses are palpable bilateral. Skin: Thin atrophic skin with loss of hair growth bilateral lower extremity below the knee with stasis changes to the skin bilateral. Neuro: Loss of protective sensation to toes bilateral. Diminished protective sensation to bilateral plantar foot. Notable pain to palpation areas of ulceration. Psych: Mood/Affect: Mood is normal. Affect is normal. Cognition: Orientation is intact to person, place and time. Focused lower extremity musculoskeletal exam: Leg: No pain with compression of the calf muscle. Lymphedema bilateral leg left greater than right. Ankles: Normal to inspection and palpation. No tenderness bilaterally. Motor strength is intact. Range of motion pain-free and unlimited. Posterior lateral right ankle is evaluated with no signs of external injury. There is a firm well-circumscribed 1.6 cm diameter subcutaneous soft tissue mass/nodule no signs of local soft tissue irritation or infection. On palpation there is generalized tenderness which is noted bilaterally. No focal increased tenderness to the area of concern for possible phlegmon noted on CT scan. No fluctuation to this area or sign of increased erythema or edema. Feet: Bilateral flatfoot deformity. Right foot: Diabetic ulcer subfifth metatarsal base extending the subcutaneous tissue layer. Scant active serous drainage to dressing. Periwound erythema and edema have resolved. No elzbieta probe to bone. Left foot: Well-healed third digit amputation. Diabetic ulceration subfifth metatarsal base and subfirst metatarsal head. Encroaching epithelial tissue circumferentially to both wounds. Both ulcerations extend into the subcutaneous tissue layer with serous drainage to dressings. Slough overlying wound beds. Hyperkeratotic buildup to the periwound. No notable purulence or malodor. Periwound erythema and edema has resolved. No undermining or tracking. Unable to express any fluid with pressure to the surrounding soft tissues. Results & Data Results & Data Vital Signs (Past 12 Hours) Vital Signs Temp Pulse Pulse Resp BP Pulse Ox O2 Del Method 09/08/24 07:22 36.4 C L 60 16 111/74 95 Room Air 09/07/24 23:03 60 16 95 FiO2 09/08/24 07:22 09/07/24 23:03 21 Coding Level of Care Code 28253 SUB INP/OBS CARE 2/35MIN Diagnoses Diabetic ulcer of left midfoot associated with type 2 diabetes mellitus, with fat layer exposed E11.621; L97.422 Diabetic foot ulcer location: midfoot Diabetes mellitus type: type 2 Non-pressure ulcer stage: with fat layer exposed Diabetic ulcer of right midfoot associated with type 2 diabetes mellitus, with fat layer exposed E11.621; L97.412 Diabetic foot ulcer location: midfoot Diabetes mellitus type: type 2 Non-pressure ulcer stage: with fat layer exposed Diabetic foot infection E11.628; L08.9 CPT Codes Debride Skin/Tissue - 45016 ([id number]) (1) Diabetic ulcer of left foot Diabetic foot ulcer location: midfoot Diabetes mellitus type: type 2 Non- pressure ulcer stage: with fat layer exposed Qualified Code(s): E11.621 - Type 2 diabetes mellitus with foot ulcer; L97.422 - Non-pressure chronic ulcer of left heel and midfoot with fat layer exposed (2) Diabetic ulcer of right foot Diabetic foot ulcer location: midfoot Diabetes mellitus type: type 2 Non- pressure ulcer stage: with fat layer exposed Qualified Code(s): E11.621 - Type 2 diabetes mellitus with foot ulcer; L97.412 - Non-pressure chronic ulcer of right heel and midfoot with fat layer exposed
--- NOTE | 2024-09-08 16:16 | Hospitalist Progress Note ---
Date of Service September 08, 2024 Assessment & Plan (1) Cellulitis: (2) Diabetic foot infection: (3) CHF (congestive heart failure): (4) CKD (chronic kidney disease) stage 3, GFR 30-59 ml/min: (5) Severe obstructive sleep apnea: (6) Diabetes mellitus, type 2: Plan 63-year-old woman with diabetes, diabetic neuropathy, and morbid obesity admitted with bilateral diabetic foot wounds and associated cellulitis. These have been treated in the outpatient setting at the wound clinic and have not been healing. 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 # bilateral diabetic foot ulcers with associated cellulitis. bilateral ankle cellulitis had significantly improved as of yesterday, foot cellulitis nearly resolved, Discontinue vancomycin Switch from cefepime to p.o. Keflex. -consulted supervisor pig machine, CAM Walker was ordered -continue wound care, -ordered PT and OT with weightbearing precautions as per supervisor pig machine recommendations, cam boot ordered Patient will be discharged to rehab # soft tissue mass of right ankle - noted on CT, possible phlegmon, not associated with the current wounds of unclear clinical significance we will simply monitor the area on exam # fall, right hip pain, right knee pain. exam unremarkable except for tender trochanteric bursa. evaluated for occult fractures, may have hip bursitis - xrays of hip and knee negative for fracture, ordered R hip/pelvis CT also negative for fracture or hematoma - severe OA of right hip - may have trochanteric bursitis, groin/anterior thigh/knee pain might be meralgia paresthetica - discussed positioning to help this, already on gabapentin - not improved and is limiting her rehab, increased oral medication to oxycodone Evaluated by orthopedics. This is due to advanced hip arthritis. Not a candidate for surgery. Patient will need Ortho follow-up once discharged #DM II - w A1c 5.9, well controlled. On Jardiance (also w/ HF as below) - BSG AC/HS, SSI while inpatient. - blood glucoses at goal today #CHF - Hx HfPEF, continues on bumex/spironolactone, metoprolol, losartan, Jardiance. weight is up 10-12 kg since July hospitalization. leg edema has improved this admission on her usual medications -not in exacerbation -continue bumex, monitor weight and edema #Severe ANDRZEJ - continue CPAP HS #GERD- continue PPI BID, carafate, pepcid HS #Allergies- continue montelukast #morbid obesity BMI 48 #CKD-3 #left-sided ovarian cyst needing further evaluation as an outpatient #left-sided supraclavicular lymphadenopathy also needing follow-up as an outpatient DVT Proph: Lovenox SQ dispo: Needs SNF rehab. Case management working on it. Awaiting insurance Auth Admission and Anticipated Discharge Date Admission Date: September 01, 2024 Subjective Patient feels well. Denies chest pain or shortness of breath. Review of Systems Review of Systems: All systems reviewed & are unremarkable except as noted in Subjective Physical Exam Physical Exam: General: Awake, conversant Heart: S1, S2/regular rate and rhythm, no murmur rubs or gallops Lungs: Clear to auscultation bilaterally. Normal effort Abdomen: Soft/nontender/nondistended. No hepatosplenomegaly Extremities: No clubbing/cyanosis. No edema. Leg cellulitis improving. Redness improving. Behavior: Appropriate, cooperative Results & Data Results & Data Vital Signs (Past 12 Hours) Vital Signs Temp Pulse Resp BP Pulse Ox O2 Del Method 09/08/24 15:05 36.6 C 69 18 122/73 98 Room Air 09/08/24 07:22 36.4 C L 60 16 111/74 95 Room Air PG Care Time/CCT Total # of Minutes Spent Total Time Spent with Patient: Total time spent is greater than 50% in coordination of care (as documented) at patient's floor/unit and/or counseling patient: Coding Level of Care Code 60861 SUB INP/OBS CARE 2/35MIN Diagnoses Cellulitis L03.311 Site of cellulitis: trunk Site of cellulitis of trunk: abdominal wall Diabetic foot infection E11.628; L08.9 CHF (congestive heart failure) I50.9 Heart failure chronicity: acute on chronic Heart failure type: unspecified CKD (chronic kidney disease) stage 3, GFR 30-59 ml/min N18.31 Chronic kidney disease stage 3 subtype: stage 3a (GFR 45-59) Severe obstructive sleep apnea G47.33 Diabetes mellitus, type 2 E11.9 (1) Cellulitis Site of cellulitis: trunk Site of cellulitis of trunk: abdominal wall Qualified Code(s): L03.311 - Cellulitis of abdominal wall (3) CHF (congestive heart failure) Heart failure chronicity: acute on chronic Heart failure type: unspecified Qualified Code(s): I50.9 - Heart failure, unspecified (4) CKD (chronic kidney disease) stage 3, GFR 30-59 ml/min Chronic kidney disease stage 3 subtype: stage 3a (GFR 45-59) Qualified Code(s): N18.31 - Chronic kidney disease, stage 3a
--- NOTE | 2024-09-09 13:38 | Hospitalist Progress Note ---
Date of Service September 09, 2024 Assessment & Plan (1) Cellulitis: (2) Diabetic foot infection: (3) CHF (congestive heart failure): (4) CKD (chronic kidney disease) stage 3, GFR 30-59 ml/min: (5) Severe obstructive sleep apnea: (6) Diabetes mellitus, type 2: Plan 63-year-old woman with diabetes, diabetic neuropathy, and morbid obesity admitted with bilateral diabetic foot wounds and associated cellulitis. These have been treated in the outpatient setting at the wound clinic and have not been healing. Recent wound culture grew MRSA and she was on bactrim POST [facility] CARE UNIT NURSE. # bilateral diabetic foot ulcers with associated cellulitis. bilateral ankle cellulitis had significantly improved as of yesterday, foot cellulitis nearly resolved, Discontinue vancomycin Switch from cefepime to p.o. Keflex. -consulted shading painter, CAM Walker was ordered -continue wound care, -ordered PT and OT with weightbearing precautions as per shading painter recommendations, cam boot ordered Patient will be discharged to rehab # soft tissue mass of right ankle - noted on CT, possible phlegmon, not associated with the current wounds of unclear clinical significance we will simply monitor the area on exam # fall, right hip pain, right knee pain. exam unremarkable except for tender trochanteric bursa. evaluated for occult fractures, may have hip bursitis - xrays of hip and knee negative for fracture, ordered R hip/pelvis CT also negative for fracture or hematoma - severe OA of right hip - may have trochanteric bursitis, groin/anterior thigh/knee pain might be meralgia paresthetica - discussed positioning to help this, already on gabapentin - not improved and is limiting her rehab, increased oral medication to oxycodone Evaluated by orthopedics. This is due to advanced hip arthritis. Not a candidate for surgery. Patient will need Ortho follow-up once discharged #DM II - w A1c 5.9, well controlled. On Jardiance (also w/ HF as below) - BSG AC/HS, SSI while inpatient. - blood glucoses at goal today #CHF - Hx HfPEF, continues on bumex/spironolactone, metoprolol, losartan, Jardiance. weight is up 10-12 kg since July hospitalization. leg edema has improved this admission on her usual medications -not in exacerbation -continue bumex, monitor weight and edema #Severe ANDRZEJ - continue CPAP HS #GERD- continue PPI BID, carafate, pepcid HS #Allergies- continue montelukast #morbid obesity BMI 48 #CKD-3 #left-sided ovarian cyst needing further evaluation as an outpatient #left-sided supraclavicular lymphadenopathy also needing follow-up as an outpatient DVT Proph: Lovenox SQ dispo: Needs SNF rehab. Case management working on it. Awaiting insurance Auth Will treat constipation today Admission and Anticipated Discharge Date Admission Date: September 01, 2024 Subjective Patient feels well overall other than she feels constipated and bloated. Review of Systems Review of Systems: All systems reviewed & are unremarkable except as noted in Subjective Physical Exam Physical Exam: General: Awake, conversant Heart: S1, S2/regular rate and rhythm, no murmur rubs or gallops Lungs: Clear to auscultation bilaterally. Normal effort Abdomen: Soft/nontender/nondistended. No hepatosplenomegaly Extremities: No clubbing/cyanosis. No edema. Leg cellulitis improved Behavior: Appropriate, cooperative Results & Data Results & Data Vital Signs (Past 12 Hours) Vital Signs Temp Pulse Resp BP Pulse Ox O2 Del Method 09/09/24 08:38 36.7 C 65 18 113/71 96 Room Air PG Care Time/CCT Total # of Minutes Spent Total Time Spent with Patient: Total time spent is greater than 50% in coordination of care (as documented) at patient's floor/unit and/or counseling patient: Coding Level of Care Code 83254 SUB INP/OBS CARE 2/35MIN Diagnoses Cellulitis L03.311 Site of cellulitis: trunk Site of cellulitis of trunk: abdominal wall Diabetic foot infection E11.628; L08.9 CHF (congestive heart failure) I50.9 Heart failure chronicity: acute on chronic Heart failure type: unspecified CKD (chronic kidney disease) stage 3, GFR 30-59 ml/min N18.31 Chronic kidney disease stage 3 subtype: stage 3a (GFR 45-59) Severe obstructive sleep apnea G47.33 Diabetes mellitus, type 2 E11.9 (1) Cellulitis Site of cellulitis: trunk Site of cellulitis of trunk: abdominal wall Qualified Code(s): L03.311 - Cellulitis of abdominal wall (3) CHF (congestive heart failure) Heart failure chronicity: acute on chronic Heart failure type: unspecified Qualified Code(s): I50.9 - Heart failure, unspecified (4) CKD (chronic kidney disease) stage 3, GFR 30-59 ml/min Chronic kidney disease stage 3 subtype: stage 3a (GFR 45-59) Qualified Code(s): N18.31 - Chronic kidney disease, stage 3a
[2024-09-09] MEDS: POLYETHYLENE (MIRALAX) 17 GM PACK PO SCH (14:18)
[2024-09-09] MEDS: DOCUSATE SODIUM 100 MG CAP PO SCH (21:16)
--- NOTE | 2024-09-10 14:17 | Hospitalist Progress Note ---
Date of Service September 10, 2024 Assessment & Plan (1) Cellulitis: (2) Diabetic foot infection: (3) CHF (congestive heart failure): (4) CKD (chronic kidney disease) stage 3, GFR 30-59 ml/min: (5) Severe obstructive sleep apnea: (6) Diabetes mellitus, type 2: Plan 63-year-old woman with diabetes, diabetic neuropathy, and morbid obesity admitted with bilateral diabetic foot wounds and associated cellulitis. These have been treated in the outpatient setting at the wound clinic and have not been healing. 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 # bilateral diabetic foot ulcers with associated cellulitis. bilateral ankle cellulitis had significantly improved as of yesterday, foot cellulitis nearly resolved, Discontinued vancomycin Switched from cefepime to p.o. Keflex. -consulted finishing supervisor, CAM Walker was ordered -continue wound care, -ordered PT and OT with weightbearing precautions as per finishing supervisor recommendations, cam boot ordered Patient will be discharged to rehab # soft tissue mass of right ankle - noted on CT, possible phlegmon, not associated with the current wounds of unclear clinical significance we will simply monitor the area on exam # fall, right hip pain, right knee pain. exam unremarkable except for tender trochanteric bursa. evaluated for occult fractures, may have hip bursitis - xrays of hip and knee negative for fracture, ordered R hip/pelvis CT also negative for fracture or hematoma - severe OA of right hip - may have trochanteric bursitis, groin/anterior thigh/knee pain might be meralgia paresthetica - discussed positioning to help this, already on gabapentin - not improved and is limiting her rehab, increased oral medication to oxycodone Evaluated by orthopedics. This is due to advanced hip arthritis. Not a candidate for surgery. Patient will need Ortho follow-up once discharged #DM II - w A1c 5.9, well controlled. On Jardiance (also w/ HF as below) - BSG AC/HS, SSI while inpatient. - blood glucoses at goal today #CHF - Hx HfPEF, continues on bumex/spironolactone, metoprolol, losartan, Jardiance. weight is up 10-12 kg since July hospitalization. leg edema has improved this admission on her usual medications -not in exacerbation -continue bumex, monitor weight and edema #Severe ANDRZEJ - continue CPAP HS #GERD- continue PPI BID, carafate, pepcid HS #Allergies- continue montelukast #morbid obesity BMI 48 #CKD-3 #left-sided ovarian cyst needing further evaluation as an outpatient #left-sided supraclavicular lymphadenopathy also needing follow-up as an outpatient DVT Proph: Lovenox SQ dispo: Needs SNF rehab. Case management working on it. Awaiting insurance A [facility] Admission and Anticipated Discharge Date Admission Date: September 01, 2024 Subjective Patient feels well overall. Denies chest pain or shortness of breath. Review of Systems Review of Systems: All systems reviewed & are unremarkable except as noted in Subjective Physical Exam Physical Exam: General: Awake, conversant Heart: S1, S2/regular rate and rhythm, no murmur rubs or gallops Lungs: Clear to auscultation bilaterally. Normal effort Abdomen: Soft/nontender/nondistended. No hepatosplenomegaly Extremities: No clubbing/cyanosis. No edema. Leg cellulitis improved Behavior: Appropriate, cooperative Results & Data Results & Data Vital Signs (Past 12 Hours) Vital Signs Temp Pulse Resp BP Pulse Ox O2 Del Method 09/10/24 07:22 36.4 C L 65 16 118/75 99 Room Air PG Care Time/CCT Total # of Minutes Spent Total Time Spent with Patient: Total time spent is greater than 50% in coordination of care (as documented) at patient's floor/unit and/or counseling patient: Coding Level of Care Code 06516 SUB INP/OBS CARE 2/35MIN Diagnoses Cellulitis L03.311 Site of cellulitis: trunk Site of cellulitis of trunk: abdominal wall Diabetic foot infection E11.628; L08.9 CHF (congestive heart failure) I50.9 Heart failure chronicity: acute on chronic Heart failure type: unspecified CKD (chronic kidney disease) stage 3, GFR 30-59 ml/min N18.31 Chronic kidney disease stage 3 subtype: stage 3a (GFR 45-59) Severe obstructive sleep apnea G47.33 Diabetes mellitus, type 2 E11.9 (1) Cellulitis Site of cellulitis: trunk Site of cellulitis of trunk: abdominal wall Qualified Code(s): L03.311 - Cellulitis of abdominal wall (3) CHF (congestive heart failure) Heart failure chronicity: acute on chronic Heart failure type: unspecified Qualified Code(s): I50.9 - Heart failure, unspecified (4) CKD (chronic kidney disease) stage 3, GFR 30-59 ml/min Chronic kidney disease stage 3 subtype: stage 3a (GFR 45-59) Qualified Code(s): N18.31 - Chronic kidney disease, stage 3a
--- NOTE | 2024-09-11 11:46 | Podiatry Progress Note ---
Date of Service September 11, 2024 Assessment & Plan (1) Diabetic ulcer of left foot: (2) Diabetic ulcer of right foot: (3) Diabetic foot infection: Plan Bilateral plantar foot diabetic foot ulceration with associated cellulitis: Overall improvement noted to the character and dimensions of the wounds since time of admission. Encroaching epithelial tissue circumferentially to the borders of all wounds. Erythema and edema to the periwound soft tissue has resolved. Scant drainage to wound dressings with no active drainage from wounds. - Bilateral foot wounds debrided as detailed in procedure note below. - Nonweightbearing left foot lower extremity. Weightbearing as tolerated for short distance transfer on the right lower extremity with low tide Cam walker in place to the right foot using walker for stability. - Bilateral foot dressed with Optifoam border and Tubigrip to the level of the knee. Change dressing once daily. - Continues p.o. Keflex. - Patient awaiting discharge to shelter facility. Surgical Excisional Debridement: Indication:Removal of necrotic tissue to promote healing Pre-op diagnosis: Diabetic ulcer subfifth metatarsal base right, diabetic ulcer subfifth metatarsal base left, diabetic ulcer subfirst metatarsal head left Post-op diagnosis: Same Procedure: Surgical excisional debridment bilateral subfifth metatarsal base and subfirst metatarsal head left ulceration Surgeon: Jerrell Somers DPM Anesthesia: None Bleeding:Minimal Disposition: Tolerated well Procedure: Informed consent obtained, Time Out taken. Patient understands and agrees to procedure. Excisional debridement was carried out of bilateral subfifth metatarsal base ulceration and left subfirst metatarsal head ulceration consisting of hyperkeratotic, slough, fibrotic and subcutaneous tissue was carried out utilizing a curette and 15 blade. Anesthesia-none. Patient tolerated the procedure well. Bleeding-minimal. Controlled with-direct pressure. Post-debridement measurements: Right foot subfifth metatarsal base: 0.5 x 0.5 x 0.3 cm. . left foot subfifth metatarsal base: 1.5 x 1.3 left foot subfirst met head: 1.5 x 1.2 x 0.2 cm. A total of 4.0 cm2 were debrided. Patient's case discussed with hospitalist team. Patient currently awaiting insurance approval for discharge to shelter facility. Patient encouraged to follow-up with wound care within 1 week of discharge. Reviewed long-term plan with patient which will be to resolve the wounds on her left foot possibly with the use of a total contact cast when she is no able to remain nonweightbearing to the limb with eventual transition to further offloading of the right foot is needed. Admission and Anticipated Discharge Date Admission Date: September 01, 2024 Subjective Patient seen resting comfortably in hospital bed. Denies pain to the bilateral foot. Awaiting placement to shelter facility. We discussed the importance of discharge to shelter facility and the risks of returning home primarily the fact that she is unable to remain nonweightbearing to the left foot. Patient is reminded that she is unable to remain nonweightbearing to the left foot without assistance and this would put her at risk for a fall or at the very least requirement to put more weight on the left foot risk of infection and would likely lead to further breakdown of her wounds and return to hospitalization. Patient voices understanding of recommendation and is happy that her wounds are improving. Review of Systems Review of Systems: Denies nausea, vomiting, fever, chills, shortness of breath, chest pain. Denies pain to the bilateral foot. All other systems reviewed and otherwise negative unless detailed above. Physical Exam Physical Exam: Const: Appears well developed and well nourished. Obese. No signs of acute distress present. CV: Extremities: No cyanosis. Bilateral lower extremity edema left greater than right. Capillary refill time is less than 2 seconds all digits of the bilateral foot. Posterior tibial and dorsalis pedis pulses are palpable bilateral. Skin: Thin atrophic skin with loss of hair growth bilateral lower extremity below the knee with stasis changes to the skin bilateral. Neuro: Loss of protective sensation to toes bilateral. Diminished protective sensation to bilateral plantar foot. Notable pain to palpation areas of ulceration. Psych: Mood/Affect: Mood is normal. Affect is normal. Cognition: Orientation is intact to person, place and time. Focused lower extremity musculoskeletal exam: Leg: No pain with compression of the calf muscle. Lymphedema bilateral leg left greater than right. Ankles: Normal to inspection and palpation. No tenderness bilaterally. Motor strength is intact. Range of motion pain-free and unlimited. Posterior lateral right ankle is evaluated with no signs of external injury. There is a firm well-circumscribed 1.6 cm diameter subcutaneous soft tissue mass/nodule no signs of local soft tissue irritation or infection. On palpation there is generalized tenderness which is noted bilaterally. No focal increased tenderness to the area of concern for possible phlegmon noted on CT scan. No fluctuation to this area or sign of increased erythema or edema. Feet: Bilateral flatfoot deformity. Right foot: Diabetic ulcer subfifth metatarsal base extending the subcutaneous tissue layer. Decreased wound dimensions since last seen. Scant active serous drainage to dressing. Periwound erythema and edema have resolved. No elzbieta probe to bone. Left foot: Well-healed third digit amputation. Diabetic ulceration subfifth metatarsal base and subfirst metatarsal head. Decreased wound dimensions with encroaching epithelial tissue circumferentially to both wounds. Both ulcerations extend into the subcutaneous tissue layer with serous drainage to dressings. Slough overlying wound beds. Hyperkeratotic buildup to the periwound. No notable purulence or malodor. Periwound erythema and edema has resolved. No undermining or tracking. Unable to express any fluid with pressure to the surrounding soft tissues. Results & Data Results & Data Vital Signs (Past 12 Hours) Vital Signs Temp Pulse Resp BP Pulse Ox O2 Del Method 09/11/24 09:06 36.6 C 67 16 97 Room Air 09/11/24 08:10 36.6 C 77 16 140/85 93 Room Air Coding Level of Care Code 34825 SUB INP/OBS CARE 2MIN Diagnoses Diabetic ulcer of left midfoot associated with type 2 diabetes mellitus, with fat layer exposed E11.621; L97.422 Diabetes mellitus type: type 2 Diabetic foot ulcer location: midfoot Non-pressure ulcer stage: with fat layer exposed Diabetic ulcer of right midfoot associated with type 2 diabetes mellitus, with fat layer exposed E11.621; L97.412 Diabetes mellitus type: type 2 Diabetic foot ulcer location: midfoot Non-pressure ulcer stage: with fat layer exposed Diabetic foot infection E11.628; L08.9 (1) Diabetic ulcer of left foot Diabetes mellitus type: type 2 Diabetic foot ulcer location: midfoot Non- pressure ulcer stage: with fat layer exposed Qualified Code(s): E11.621 - Type 2 diabetes mellitus with foot ulcer; L97.422 - Non-pressure chronic ulcer of left heel and midfoot with fat layer exposed (2) Diabetic ulcer of right foot Diabetes mellitus type: type 2 Diabetic foot ulcer location: midfoot Non- pressure ulcer stage: with fat layer exposed Qualified Code(s): E11.621 - Type 2 diabetes mellitus with foot ulcer; L97.412 - Non-pressure chronic ulcer of right heel and midfoot with fat layer exposed
--- NOTE | 2024-09-11 15:19 | Hospitalist Progress Note ---
Date of Service September 11, 2024 Assessment & Plan (1) Cellulitis: (2) Diabetic foot infection: (3) CHF (congestive heart failure): (4) CKD (chronic kidney disease) stage 3, GFR 30-59 ml/min: (5) Severe obstructive sleep apnea: (6) Diabetes mellitus, type 2: Plan 63-year-old woman with diabetes, diabetic neuropathy, and morbid obesity admitted with bilateral diabetic foot wounds and associated cellulitis. These have been treated in the outpatient setting at the wound clinic and have not been healing. 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 # bilateral diabetic foot ulcers with associated cellulitis. bilateral ankle and foot cellulitis resolved Discontinued vancomycin Completed antibiotic course. -consulted family services specialist, CAM Walker was ordered -continue wound care, -ordered PT and OT with weightbearing precautions as per family services specialist recomme ndations, cam boot ordered Patient will be discharged to rehab # soft tissue mass of right ankle - noted on CT, possible phlegmon, not associated with the current wounds of unclear clinical significance Benign exam # fall, right hip pain, right knee pain. exam unremarkable except for tender trochanteric bursa. evaluated for occult fractures, may have hip bursitis - xrays of hip and knee negative for fracture, ordered R hip/pelvis CT also negative for fracture or hematoma - severe OA of right hip - may have trochanteric bursitis, groin/anterior thigh/knee pain might be meralgia paresthetica - discussed positioning to help this, already on gabapentin - not improved and is limiting her rehab, increased oral medication to oxycodone Evaluated by orthopedics. This is due to advanced hip arthritis. Not a candidate for surgery. Patient will need Ortho follow-up once discharged #DM II - w A1c 5.9, well controlled. On Jardiance (also w/ HF as below) - BSG AC/HS, SSI while inpatient. - blood glucoses at goal today #CHF - Hx HfPEF, continues on bumex/spironolactone, metoprolol, losartan, Jardiance. weight is up 10-12 kg since July hospitalization. leg edema has improved this admission on her usual medications -not in exacerbation -continue bumex, monitor weight and edema #Severe ANDRZEJ - continue CPAP HS #GERD- continue PPI BID, carafate, pepcid HS #Allergies- continue montelukast #morbid obesity BMI 48 #CKD-3 #left-sided ovarian cyst needing further evaluation as an outpatient #left-sided supraclavicular lymphadenopathy also needing follow-up as an outpatient DVT Proph: Lovenox SQ dispo: Needs SNF rehab. Case management working on it. Awaiting insurance Auth Admission and Anticipated Discharge Date Admission Date: September 01, 2024 Subjective Patient feels well overall. Awaiting placement Review of Systems Review of Systems: All systems reviewed & are unremarkable except as noted in Subjective Physical Exam Physical Exam: General: Awake, conversant Heart: S1, S2/regular rate and rhythm, no murmur rubs or gallops Lungs: Clear to auscultation bilaterally. Normal effort Abdomen: Soft/nontender/nondistended. No hepatosplenomegaly Extremities: No clubbing/cyanosis. No edema. Leg cellulitis improved Behavior: Appropriate, cooperative Results & Data Results & Data Vital Signs (Past 12 Hours) Vital Signs Temp Pulse Resp BP BP Pulse Ox O2 Del Method 09/11/24 14:39 36.7 C 71 18 115/71 96 Room Air 09/11/24 12:32 36.6 C 70 16 127/78 Room Air 09/11/24 09:06 36.6 C 67 16 97 Room Air 09/11/24 08:10 36.6 C 77 16 140/85 93 Room Air PG Care Time/CCT Total # of Minutes Spent Total Time Spent with Patient: Total time spent is greater than 50% in coordination of care (as documented) at patient's floor/unit and/or counseling patient: Coding Level of Care Code 09916 SUB INP/OBS CARE 2/35MIN Diagnoses Cellulitis L03.311 Site of cellulitis: trunk Site of cellulitis of trunk: abdominal wall Diabetic foot infection E11.628; L08.9 CHF (congestive heart failure) I50.9 Heart failure chronicity: acute on chronic Heart failure type: unspecified CKD (chronic kidney disease) stage 3, GFR 30-59 ml/min N18.31 Chronic kidney disease stage 3 subtype: stage 3a (GFR 45-59) Severe obstructive sleep apnea G47.33 Diabetes mellitus, type 2 E11.9 (1) Cellulitis Site of cellulitis: trunk Site of cellulitis of trunk: abdominal wall Qualified Code(s): L03.311 - Cellulitis of abdominal wall (3) CHF (congestive heart failure) Heart failure chronicity: acute on chronic Heart failure type: unspecified Qualified Code(s): I50.9 - Heart failure, unspecified (4) CKD (chronic kidney disease) stage 3, GFR 30-59 ml/min Chronic kidney disease stage 3 subtype: stage 3a (GFR 45-59) Qualified Code(s): N18.31 - Chronic kidney disease, stage 3a
[2024-09-11 20:30] VITALS: RESP 16
--- NOTE | 2024-09-12 10:38 | Hospitalist Progress Note ---
Date of Service September 12, 2024 Assessment & Plan (1) Cellulitis: Plan: bilateral diabetic foot ulcers with associated cellulitis. bilateral ankle and foot cellulitis resolved Discontinued vancomycin Completed antibiotic course. -consulted legal consultant, CAM Walker was ordered -continue wound care, -ordered PT and OT with weightbearing precautions as per legal consultant recommendations, cam boot ordered Patient will be discharged to rehab (2) Diabetic foot infection: (3) CHF (congestive heart failure): Plan: HfPEF, continues on bumex/spironolactone, metoprolol, losartan, Jardiance. weight is up 10-12 kg since July hospitalization. leg edema has improved this admission on her usual medications -not in exacerbation -continue bumex, monitor weight and edema (4) CKD (chronic kidney disease) stage 3, GFR 30-59 ml/min: (5) Severe obstructive sleep apnea: Plan: continue CPAP HS (6) Diabetes mellitus, type 2: Plan: w A1c 5.9, well controlled. On Jardiance (also w/ HF as below) - BSG AC/HS, SSI while inpat Plan 63-year-old woman with diabetes, diabetic neuropathy, and morbid obesity admitted with bilateral diabetic foot wounds and associated cellulitis. These have been treated in the outpatient setting at the wound clinic and have not been healing. 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 DVT Proph: Lovenox SQ dispo: Needs SNF rehab. Case management working on it. Awaiting insurance Auth Peer to peer completed, patient approved for SNF 09/12. Admission and Anticipated Discharge Date Admission Date: September 01, 2024 Subjective No events overnight. Pt resting comfortably in chair. Review of Systems Review of Systems: CONST: Negative for fever, body aches and chills. HENT: Negative for neck pain/stiffness, headache, congestion, sore throat, swelling. EYES: Negative for discharge/pain or vision changes. RESP: Negative for cough/hemoptysis and shortness of breath. CV: Negative chest pain, difficulty breathing, palpitations. ABD: Negative pain, nausea, vomiting. : Negative increase frequency, dysuria, blood in urine or stool. MUSC: Negative for muscle aches, edema. SKIN: Negative rash, lesions/sores. NEURO: Negative headache, dizziness, weakness. Physical Exam Physical Exam: GENERAL APPEARANCE NAD, activity normal for age, well developed/ well nourished, no cyanosis, pallor, or diaphoresis. EYES lids/conjunctiva normal. EARS/NOSE/THROAT Mucous membranes moist, nares normal, lips/teeth normal uvula midline without oral pharyngeal erythema, exudate or swelling TMs normal bilaterally. No lymphangitis/lymphedema. HEAD/NECK normocephalic atraumatic, no facial trauma, neck is supple. RESPIRATORY respiratory effort normal, speaks in full sentences, no tripod position, no accessory muscle use. Lungs clear to auscultation without rhonchi, wheezes, rales CARDIAC Regular rate and rhythm, no edema. ABDOMINAL Soft, ND/NT. No evidence of fluid wave. No pulsatile masses on exam, rebound tenderness, Sheets sign or pain over Mcburney's point. MUSCLES/EXTREMITIES No abnormal range of motion, no swelling. Right cam boot in place. SKIN Warm, pink and dry. No rashes, dermatoses, petechiae or lesions. NEUROLOGICAL Speech is clear and appropriate. Normal level of consciousness. Gait and coordination are normal. 5/5 strength in all extremities. PSYCH Normal mood and affect. Judgement/competence is appropriate Results & Data Results & Data Vital Signs (Past 12 Hours) Vital Signs Temp Pulse Pulse Resp BP Pulse Ox O2 Del Method 09/12/24 07:52 36.4 C L 67 16 112/73 96 Room Air 09/11/24 23:29 61 16 97 PG Care Time/CCT Total # of Minutes Spent Total Time Spent with Patient: Total time spent is greater than 50% in coordination of care (as documented) at patient's floor/unit and/or counseling patient: Coding Level of Care Code 68874 SUB INP/OBS CARE 2/35MIN Diagnoses Cellulitis L03.311 Site of cellulitis: trunk Site of cellulitis of trunk: abdominal wall Diabetic foot infection E11.628; L08.9 CHF (congestive heart failure) I50.9 Heart failure chronicity: acute on chronic Heart failure type: unspecified CKD (chronic kidney disease) stage 3, GFR 30-59 ml/min N18.31 Chronic kidney disease stage 3 subtype: stage 3a (GFR 45-59) Severe obstructive sleep apnea G47.33 Diabetes mellitus, type 2 E11.9 (1) Cellulitis Site of cellulitis: trunk Site of cellulitis of trunk: abdominal wall Qualified Code(s): L03.311 - Cellulitis of abdominal wall (3) CHF (congestive heart failure) Heart failure chronicity: acute on chronic Heart failure type: unspecified Qualified Code(s): I50.9 - Heart failure, unspecified (4) CKD (chronic kidney disease) stage 3, GFR 30-59 ml/min Chronic kidney disease stage 3 subtype: stage 3a (GFR 45-59) Qualified Code(s): N18.31 - Chronic kidney disease, stage 3a
--- NOTE | 2024-09-12 14:29 | Discharge Summary ---
Discharge Summary Date of Service September 12, 2024 Principal Dx & Hospital Course #1 = Principal Diagnosis (1) Cellulitis: bilateral diabetic foot ulcers with associated cellulitis. bilateral ankle and foot cellulitis resolved Discontinued vancomycin Completed antibiotic course. -consulted site planner, MARIA INES Walker was ordered -continue wound care, -ordered PT and OT with weightbearing precautions as per site planner recommendations, cam boot ordered Patient will be discharged to rehab (2) Diabetic foot infection: (3) CHF (congestive heart failure): HfPEF, continues on bumex/spironolactone, metoprolol, losartan, Jardiance. weight is up 10-12 kg since July hospitalization. leg edema has improved this admission on her usual medications -not in exacerbation -continue bumex, monitor weight and edema (4) CKD (chronic kidney disease) stage 3, GFR 30-59 ml/min: (5) Severe obstructive sleep apnea: continue CPAP HS (6) Diabetes mellitus, type 2: w A1c 5.9, well controlled. On Jardiance (also w/ HF as below) - BSG AC/HS, SSI while inpat Plan 63-year-old woman with diabetes, diabetic neuropathy, and morbid obesity admitted with bilateral diabetic foot wounds and associated cellulitis. These have been treated in the outpatient setting at the wound clinic and have not been healing. 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 DVT Proph: Lovenox SQ dispo: Needs SNF rehab. Case management working on it. Awaiting insurance Auth Peer to peer completed, patient approved for SNF 09/12. Admission HPI Per Admitting Provider 63yo female presented at referral from wound clinic for 3-4 days worsening pain in bilateral heels and plantar aspect of foot. Hx notable for OM of third toe s/p amputation last month with Dr Kumar on 07/25. Prior CX from hospitalization in July w/ MSSA, group B strep and proteus, all sensitive to cephalosporins and was sent on Cefuroxime at [place] Left worse than right, worse with ambulating. Slight b/l leg swelling and on diuretics. Wound of L toe doing well since podiatry several days ago and to give some new padded inserts but hurting too much to walk. Having clear to bloody serous discharge from wounds on feet and reports finishing Bactrim on Wednesday of this week, had reported improved on that but then worsened once off. No fevers at home. Typically takes Tylenol for pain but was given tramadol last admission but even that didn't help at home. Reports had gotten oxycodone before and willing to try. Does have rash to her chest from last admission but reports has been improved from them but using nystatin on it. Discussed will monitor but may need some steroids per prior admission note but will monitor for now. Encouraged to avoid picking/scratching. She does report the worst pain is to her LEFT ankle, posterior aspect but does have b/l foot pain causing issues with ambulation. Vanco/Cefepime IV ordered by ER provider and discussed will continue given hx MRSA in knee in the past and consult podiatry/wound care and therapy evaluations. Uses CPAP HS, reports compliance w/ diuretics and some weight gain but no hypoxia and will monitor for additional dosing pending repeat evals. Is a full code. Discharge Exam GENERAL APPEARANCE NAD, activity normal for age, well developed/ well nourished, no cyanosis, pallor, or diaphoresis. EYES lids/conjunctiva normal. EARS/NOSE/THROAT Mucous membranes moist, nares normal, lips/teeth normal uvula midline without oral pharyngeal erythema, exudate or swelling TMs normal bilaterally. No lymphangitis/lymphedema. HEAD/NECK normocephalic atraumatic, no facial trauma, neck is supple. RESPIRATORY respiratory effort normal, speaks in full sentences, no tripod position, no accessory muscle use. Lungs clear to auscultation without rhonchi, wheezes, rales CARDIAC Regular rate and rhythm, no edema. ABDOMINAL Soft, ND/NT. No evidence of fluid wave. No pulsatile masses on exam, rebound tenderness, Sheets sign or pain over Mcburney's point. MUSCLES/EXTREMITIES No abnormal range of motion, no swelling. Right cam boot in place. SKIN Warm, pink and dry. No rashes, dermatoses, petechiae or lesions. NEUROLOGICAL Speech is clear and appropriate. Normal level of consciousness. Gait and coordination are normal. 5/5 strength in all extremities. PSYCH Normal mood and affect. Judgement/competence is appropriate Discharge Plan Discharge Items Patient Disposition: Transfer Inpatient Rehab Fac Reason For Visit: B/L LE CELLUITIS Discharge Diagnosis: Bilateral diabetic foot ulcers with associated cellulitis Severe osteoarthritis of right hip Activity: As commented below Activity Comment: Per PT/OT recommendations Non-emergency contact: Primary Care Provider Call non-emergency contact if: you have any medication questions and your symptoms worsen Follow-up/Referrals: Awilda Eric CRNP [Primary Care Provider] - Diet: Carb Consistent or DM2 and Heart Healthy Addtl Attending Provider Instructions: Advised to follow-up with PCP in 1 week Advised to follow-up with orthopedics in 1 month Pending Studies at Discharge: No Stand-Alone Forms: My [facility] Skilled Items Patient informed of condition?: Yes DNR: No Discharge Level of Care: Skilled Communicable Disease: No Discharge Prognosis: Stable Lines: None Urinary Catheter: No Medications and DC Order Prescriptions: Continued (DME) CPAP Supplies Misc See Rx Instructions .Route Qty: 1 0RF Rx Instructions: As directed (DME) CPAP Machine Misc See Rx Instructions .Route Qty: 1 0RF Rx Instructions: As directed 11cm water pressure Jardiance 10 mg tablet 10 mg PO QAM Qty: 90 3RF Rx Instructions: for congestive heart failure montelukast [Singulair] 10 mg tablet 10 mg PO QPM Qty: 90 3RF albuterol sulfate [Ventolin HFA] 90 mcg/actuation HFA aerosol inhaler 2 puff INHALATION Q4H PRN (Reason: Shortness Of Breath Or Wheezing) Qty: 18 3RF famotidine [Pepcid] 20 mg tablet 20 mg PO HS Qty: 90 3RF allopurinol 100 mg tablet 100 mg PO BID Qty: 180 1RF pantoprazole [Protonix] 40 mg tablet,delayed release (DR/EC) 40 mg PO BID Qty: 90 3RF bupropion HCl 150 mg tablet extended release 24 hr 150 mg PO QAM Qty: 90 2RF gabapentin 400 mg capsule 400 mg PO QID Qty: 360 0RF multivitamin Tablet 1 tab PO QAM Qty: 90 1RF aspirin 81 mg tablet,delayed release (DR/EC) 81 mg PO QAM duloxetine [Cymbalta] 60 mg capsule,delayed release(DR/EC) 60 mg PO BID albuterol sulfate 2.5 mg /3 mL (0.083 %) solution for nebulization 2.5 mg inhalation Q6H PRN (Reason: Shortness Of Breath) Qty: 90 1RF Rx Instructions: needed buspirone 15 mg tablet 15 mg PO TID Rx Instructions: pt states she also take a 5 mg tab with this to make 20 MG? cyanocobalamin (vitamin B-12) [Vitamin B-12] 1,000 mcg tablet 1,000 mcg PO QAM Tums 300 mg (750 mg) tablet,chewable 900 mg PO QAM diclofenac sodium [Voltaren Arthritis Pain] 1 % Gel 4 g EXT QID Qty: 1 0RF Rx Instructions: purchase [id number]; may use 4 grams on your lower back, either knee, either hip, back of neck. nystatin 100,000 unit/gram powder 1 applic topical TID PRN (Reason: yeast rash under breasts, abdominal skin folds) Qty: 30 0RF sennosides [Senokot] 8.6 mg tablet 8.6 mg PO BID Rx Instructions: purchase [id number] bumetanide 1 mg tablet 2 mg PO QAM hydroxyzine HCl 25 mg tablet 25 mg PO HS PRN (Reason: Allergy Symptoms) cholecalciferol (vitamin D3) [Vitamin D3] 50 mcg (2,000 unit) capsule 2,000 unit PO DAILY cetirizine [Zyrtec] 10 mg tablet 10 mg PO BID potassium chloride [Klor-Con M20] 20 mEq tablet,ER particles/crystals 20 meq PO QAM epinephrine 0.3 mg/0.3 mL auto-injector 0.3 mg IM UD PRN (Reason: anaphylaxis) acetaminophen 500 mg tablet 1,000 mg PO TID PRN (Reason: fever or pain) Qty: 90 0RF losartan 25 mg tablet 25 mg PO QAM nystatin 100,000 unit/gram ointment 1 applic EXT TID PRN (Reason: FLARE) sucralfate [Carafate] 1 gram tablet 1 g PO AC PRN (Reason: heartburn) Qty: 30 0RF spironolactone 25 mg tablet 25 mg PO BID metoprolol succinate 25 mg tablet extended release 24 hr 25 mg PO DAILY Discharge Orders: Discharge Order (Routine); Ordered 09/12/24 Ordered By: Valentin Uriarte/Other Patient Handouts: Nutrition for Wound Healing, Managing Type 2 Diabetes Admission Data Admit Date/Time: 09/01/24 14:54 Attending Provider: Valentin Sandra Admit Provider: Naveed Dorantes Primary Care Provider: Awilda Eric Other Providers: Naveed Dorantes; Jerrell Somers; Sharron Betancourt; Ivan Dickerson Hospital Stay Data Consultations 09/01/24 14:40 ED Decision to Admit Stat 09/01/24 14:45 Consult Podiatry Routine 09/05/24 08:58 Consult Orthopedic Surgery Routine Diagnostic Imagining Performed 09/01/24 12:11 CT foot LT w con Stat CT foot RT w con Stat 09/03/24 11:40 CT hip RT wo con Urgent CT pelvis wo con Urgent Pending Results Patient Have Any Pending Studies at Discharge: No Discharge Instructions Given to Patient (Per Discharging Provider) Advised to follow-up with PCP in 1 week Advised to follow-up with orthopedics in 1 month Total Time Total Time Spent Total Time Spent (In Minutes): 50 Coding Level of Care Code 61445 INP/OBS DISCH >30 MIN Diagnoses Cellulitis L03.311 Site of cellulitis: trunk Site of cellulitis of trunk: abdominal wall Diabetic foot infection E11.628; L08.9 CHF (congestive heart failure) I50.9 Heart failure chronicity: acute on chronic Heart failure type: unspecified CKD (chronic kidney disease) stage 3, GFR 30-59 ml/min N18.31 Chronic kidney disease stage 3 subtype: stage 3a (GFR 45-59) Severe obstructive sleep apnea G47.33 Diabetes mellitus, type 2 E11.9
[2024-09-12 15:45] VITALS: BP 127/69; PULSE 72; TEMP 98.6; O2SAT 95
== END 2024-09-12 16:20 | DRG 623 ==
LOC: ED 11:33 → 3E 14:54 → SUATTDRO 14:54 → 3E 19:54

== ENCOUNTER 2024-12-06 16:37 | Inpatient (IN) ==
--- NOTE | 2024-12-06 17:22 | Emergency Department Note ---
Impression & Plan Fluid overload, Cellulitis, Weight gain, Pedal edema ED Provider Note NAME: CELIO ARGUELLES AGE: 64 SEX: F : 1960 ARRIVES VIA: Walk-In INFORMANT: [Patient] ED PROVIDER(S): [Will Crump MD] CHIEF COMPLAINT: Swelling HISTORY OF PRESENT ILLNESS: The patient is a 64-year-old female with a history of chronic lower extremity edema. She did see her doctor's office 5 days ago and her Bumex was doubled. Despite this, she has gained 20 pounds in about 2 weeks. Her legs are quite swollen and they are now red. She is not short of breath. No fever. In the past, patient has required IV diuresis in the hospital to take off this extra fluid. She is not on blood thinning agents. She has never had a DVT. PMHx/PSHx/Social Hx: See Below PHYSICAL EXAM: GENERAL: Patient is in no acute distress. HEENT: No acute trauma, normocephalic atraumatic, mucous membranes moist, no nasal congestion. NECK: No stridor, no adenopathy, no meningismus, trachea is midline. LUNGS: Clear to auscultation bilaterally when listening anterior, no wheeze, no rhonchi, breath sounds equal. HEART: Subtle systolic murmur, regular rate and rhythm. ABDOMEN: Soft, nontender, no peritonitis. Obese. EXTREMITIES: No cyanosis. The patient has marked bilateral pedal edema worse on the left. There is erythema and warmth to both lower extremities. There are some dressings in place in the area of the left foot. NEUROLOGIC: Oriented x 3, no acute motor or sensory deficits, no focal weakness. SKIN: No jaundice, no diaphoresis. DIFFERENTIAL DIAGNOSIS: Cellulitis, fluid overload, venous insufficiency, renal failure, electrolyte imbalance, among others. EMERGENCY DEPARTMENT PROCEDURES: MEDICAL DECISION MAKING: There is no leukocytosis or concerning anemia. There is a normal platelet count. No coagulopathy. The creatinine was slightly elevated although, this has been documented before. Lactic acid level was not elevated making sepsis less likely. There was no concerning liver enzyme elevation. BNP was not elevated making CHF unlikely. ECG showed a sinus rhythm, no obvious ST elevation. Cardiac enzyme testing x 1 was not consistent with acute cardiac injury. Chest x-ray did not show pneumonia or CHF. On exam, the patient had significant pedal edema with bilateral cellulitis. Ultrasound of her legs was done to rule out DVT, this result was pending. Patient had an external Bales catheter placed. She was given 2 mg of IV Bumex. She received 2 g of IV ceftriaxone. Given the failed outpatient management, given the weight gain, given her edema, given her cellulitis, admission for diuresis and antibiotics is warranted. I spoke with the patient and case management, the on-call hospitalist was consulted. Prior/Outside records/notes reviewed: Cardiology note from 12/01/2024 describing her presentation, findings and outpatient plan. ECG per my interpretation: Indication was swelling. The ECG shows a normal sinus rhythm with a rate of 80. There is a potential old inferior infarct and old anterior infarct. There is no acute ST elevation, no PVCs. The QTc is 440. Continuous Cardiac Monitoring per my interpretation: An order was placed for continuous cardiac monitoring. The monitor shows a rate of 77 with normal sinus rhythm. Imaging/x-ray results per my interpretation: Chest x-ray does not show CHF or pneumonia. There are changes from her larger body habitus. Chronic Medical/Social conditions affecting care: Obesity Care/Management discussed with: Case management, the on-call hospitalist. Level of care consideration(s): After review of the information above and other included data: --I believe the patient requires escalation of care to admission DISPOSITION: Admission Past Med/Surg History Problem List (Updated 12/06/24 @ 20:51 by Will Crump MD) Pedal edema (Acute) Weight gain (Acute) Cellulitis (Acute) Fluid overload (Acute) Aortic stenosis Mild 07/2024 Abrasion, left foot, initial encounter Cellulitis of left foot Diabetic ulcer of left foot associated with diabetes mellitus due to underlying condition, with fat layer exposed Pyelonephritis (Acute) Trauma of ear canal Dietary counseling and surveillance Mass of soft tissue of ankle Ambulatory dysfunction (Acute) Diabetic foot infection (Acute) Diabetic foot infection Left radial head fracture Diabetic ulcer of left foot Diabetic ulcer of right foot Venous ulcers of both lower extremities Adnexal cyst Postprandial nausea Chronic diastolic (congestive) heart failure Iron deficiency anemia Iron deficiency anemia Perforated ear drum Acute osteomyelitis of toe of left foot (Acute) Diabetic infection of left foot (Acute) Toe gangrene Cellulitis of both lower extremities 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 Status post panniculectomy Musculoskeletal pain Cellulitis of left leg (Acute) Weakness (Acute) Weight gain (Acute) CHF (congestive heart failure) (Acute) Panniculitis (Acute) Acute kidney injury superimposed on CKD Obesity (Acute) Failure of outpatient treatment (Acute) Cellulitis (Acute) Supraclavicular lymphadenopathy Acute on chronic heart failure with preserved ejection fraction Open wound of abdomen (Acute) Morbid obesity HAYES (dyspnea on exertion) (Acute) CKD (chronic kidney disease) stage 3, GFR 30-59 ml/min (Acute) Acute exacerbation of CHF (congestive heart failure) (Acute) Cellulitis (Acute) Cellulitis of suprapubic region Acute on chronic heart failure VARINDER (acute kidney injury) Osteoarthritis of hip Constipation Lymphoma Hip pain, right Failure of outpatient treatment (Acute) CRF (chronic renal failure) (Acute) Edema of both lower extremities (Acute) Fluid overload (Acute) Edema of abdominal wall (Acute) Ulcer of both feet Volume overload Hx MRSA infection 09/2021 s/p left knee infection > resolved > continues with doxycycline daily for prevention Lymphadenopathy of left cervical region Urticaria Chronic ulcer of left foot with fat layer exposed Diabetes mellitus type 2 with neurological manifestations Candidiasis of skin Solitary kidney, congenital Bilateral hip pain Low back pain Weakness (Acute) Lower extremity edema (Acute) CHF (congestive heart failure) (Acute) Abdominal pannus Fatty liver Dependent lymphedema Stage 3b chronic kidney disease Anemia reason for procedure. iron infusions recently. 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 Other ovarian cyst, left side Vitamin D deficiency Peripheral neuropathy Lumbar spinal stenosis 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- DISCOVERED WITH INCIDENTAL IMAGING Gout CKD (chronic kidney disease) stage 3, GFR 30-59 ml/min monitoring Chronic back pain Acid reflux Medical History Diabetes Acute kidney injury superimposed on stage 3b chronic kidney disease Acute UTI (urinary tract infection) Sepsis Diabetic foot ulcer Abdominal wall cellulitis Hypokalemia Mast cell disease B-cell lymphoma Hx-TIA (transient ischemic attack) 2017 > ASA for prevention > no residual effects Hx of sepsis 09/2021 r/t left knee infection Hypertension Lumbar spinal stenosis Arthritis Allergic rhinitis Gout Other ovarian cyst, left side present, just monitoring Acid reflux Severe obstructive sleep apnea cpap Stage 3 chronic kidney disease follows with Dr. Wood Fatty liver CHF (congestive heart failure) follows with Ashlyn Gaby Solitary kidney, congenital Diabetes mellitus, type 2 Ulcer of foot one ulcer present to bottom of bilat feet > follows with wound clinic at [place], improving per pt History of COVID-19 09/2021 Iron deficiency anemia Venous stasis of both lower extremities MDD (major depressive disorder), recurrent episode, moderate Ambulatory dysfunction uses walker Depression with anxiety Degenerative joint disease, shoulder, right Lymphedema left leg and abdomen / chronic Asthma well controlled, rare res inh use Hyperlipidemia no meds Surgical History Hx of biopsy (12/29/23) Left Neck Lymph Node Biopsy(Left) - Yohan Maldonado, DO, FACS History of insertion of central venous access port removed in 2022 History of revision of total replacement of left knee joint History of cardiac cath remote hx over 20 yrs ago, no stents History of colonoscopy History of esophagogastroduodenoscopy (EGD) History of bilateral knee replacement (10/16/22) H/O knee surgery (12/2021) L knee washout w/ polyexchange S/P tonsillectomy and adenoidectomy Status post total shoulder arthroplasty (10/17/18) right History of carpal tunnel release B/L H/O ventral hernia repair History of appendectomy History of cholecystectomy Family History Mother Diabetes Coronary heart disease Myocardial infarction S/P CABG x 3 Hypertension Gallbladder disease Sister Hodgkins lymphoma Brother Kidney disease Grandmother Breast cancer Aunt Ovarian cancer Father , 02/11/20. 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 Beliefs That Will Affect Care: None marital status: marital status details: ; lives with parents & 1 daughter Current Living Situation: Parent and Family Current Living Situation Comment: Lives with mother & daughter current occupational status: disabled other: worked in [employer] in [place]; worked for [employer] district Feels Safe at Home: Yes Childhood Exposure to Second-Hand Smoke: No Diet: regular Diet Comment: regular caffeine: No Dental Care, Regularly: No Physical Activity Frequency: Does not Exercise Seatbelt Use: always Sunscreen Use: Yes Assistive Devices: Walker Allergies Allergies Allergy/AdvReac Type Severity Reaction Status Date / Time Corticosteroids Allergy Severe Anaphylaxis Verified 12/06/24 20:36 (Glucocorticoids) clindamycin Allergy Intermediate Rash Verified 12/06/24 20:36 dog dander Allergy Intermediate Rash Verified 12/06/24 20:36 iron [From Venofer] Allergy Intermediate Rash Verified 12/06/24 20:36 morphine Allergy Intermediate mouth and Verified 12/06/24 20:36 face swells Penicillins Allergy Intermediate rash/hives Verified 12/06/24 20:36 adhesive Allergy Mild Skin rash Verified 12/06/24 20:36 localized zolpidem Allergy Unknown Unknown Verified 12/06/24 20:36 pregabalin AdvReac Intermediate "makes Verified 12/06/24 20:36 goofy" Home Meds Home Medications Medication Instructions Recorded Confirmed calcium carbonate (Tums) 900 mg PO QAM 03/03/22 12/01/24 cyanocobalamin (vitamin B-12) 1,000 mcg PO QAM 03/03/22 12/01/24 1,000 mcg tablet (Vitamin B-12) aspirin 81 mg tablet,delayed 81 mg PO QAM 06/25/23 12/01/24 release duloxetine 60 mg capsule,delayed 60 mg PO BID 06/25/23 12/01/24 release (Cymbalta) cetirizine 10 mg tablet (Zyrtec) 10 mg PO BID 10/20/23 12/01/24 potassium chloride 20 mEq 20 meq PO QAM 12/24/23 12/01/24 tablet,extended release(part/cryst) (Klor-Con M) epinephrine 0.3 mg/0.3 mL 0.3 mg IM UD PRN anaphylaxis 01/06/24 12/01/24 injection, auto-injector losartan 25 mg tablet 25 mg PO QAM 07/23/24 12/01/24 nystatin 100,000 unit/gram topical 1 applic EXT TID PRN FLARE 07/23/24 12/01/24 ointment buspirone 15 mg tablet 15 mg PO TID 08/01/24 12/01/24 cholecalciferol (vitamin D3) 50 2,000 unit PO DAILY 09/01/24 12/01/24 mcg (2,000 unit) capsule (Vitamin D3) hydroxyzine HCl 25 mg tablet 25 mg PO HS PRN Allergy Symptoms 09/01/24 12/01/24 sennosides 8.6 mg tablet (Senokot) 17.2 mg PO BID 10/06/24 12/01/24 famotidine 40 mg tablet 40 mg PO BID 10/23/24 12/01/24 Previous Rx's Medication Instructions Recorded albuterol sulfate 2.5 mg/3 mL 2.5 mg (3 mL) inhalation Q6H PRN 06/25/23 (0.083 %) solution for nebulization Shortness Of Breath #90 mL diclofenac sodium 1 % topical gel 4 g EXT QID #1 tube 08/30/23 (Voltaren Arthritis Pain) nystatin 100,000 unit/gram topical 1 applic topical TID PRN yeast 08/30/23 powder rash under breasts, abdominal skin folds #30 grams CPAP Supplies #1 ea 09/28/23 CPAP Machine #1 ea 09/29/23 empagliflozin 10 mg tablet 10 mg PO QAM #90 tabs 12/02/23 (Jardiance) montelukast 10 mg tablet 10 mg PO QPM #90 tabs 01/03/24 (Singulair) albuterol sulfate 90 mcg/actuation 2 puff inhalation Q4H PRN 01/04/24 aerosol inhaler (Ventolin HFA) Shortness Of Breath Or Wheezing #18 grams acetaminophen 500 mg tablet 1,000 mg (2 x 500 mg) PO TID PRN 02/04/24 fever or pain #90 tabs pantoprazole 40 mg tablet,delayed 40 mg PO BID #90 tabs 05/31/24 release (Protonix) bupropion HCl 150 mg 24 hr tablet, 150 mg PO QAM #90 tabs 06/08/24 extended release gabapentin 400 mg capsule 400 mg PO QID #360 caps 06/30/24 multivitamin 1 tab PO QAM #90 tabs 07/24/24 sucralfate 1 gram tablet (Carafate) 1 g PO AC PRN heartburn #30 tabs 07/31/24 oxycodone 5 mg tablet 5 mg PO Q4H PRN pain #30 tabs 09/12/24 allopurinol 100 mg tablet 100 mg PO BID #180 tabs 09/13/24 polyethylene glycol 3350 17 17 g PO DAILY 3 months #1,530 grams 09/22/24 gram/dose oral powder (Miralax) metoprolol succinate 25 mg 25 mg PO DAILY #90 tabs 10/16/24 tablet,extended release 24 hr gentamicin 0.1 % topical ointment 1 applic topical DAILY 2 weeks #30 11/09/24 grams bumetanide 2 mg tablet 2 mg PO BID #240 tabs 12/01/24 spironolactone 25 mg tablet 25 mg PO BID #180 tabs 12/01/24 linezolid 600 mg tablet 600 mg PO Q12H 14 days #28 tabs 12/02/24 Results & Data (ED) Vital Signs Vital Signs - 24 hr 12/06/24 16:52 12/06/24 17:34 12/06/24 20:18 Temperature 36.0 C L Temperature Source Temporal Artery Scan Pulse Rate 77 75 65 Respiratory Rate 20 12 Blood Pressure 148/90 H 115/91 Blood Pressure Mean 109 99 Pulse Oximetry 100 98 Oxygen Delivery Method Room Air Room Air Sepsis Recent Fever Within 48 Hours No Sepsis New/Unexplained Change in Mental Status N/A Sepsis Action Taken by Nursing No Action Required Home Medications Current Medication List: was personally reviewed by me Laboratory Data Attestation: I reviewed the patient's lab results. 12/06/24 17:12 12/06/24 17:12 Lab Results 12/06/24 12/06/24 Range/Units 17:12 18:29 WBC 8.17 (4.8-10.8) K/ul RBC 4.56 (4.20-5.40) M/uL Hgb 12.1 (12.0-16.0) g/dl Hct 38.2 (37.0-47.0) % MCV 83.8 (80.0-100.0) fL MCH 26.5 (25.0-34.0) pg MCHC 31.7 L (32.0-36.0) g/dL RDW Std Deviation 46.8 H (36.4-46.3) fL RDW Coeff of Cleo 15.5 H (11.5-14.5) % Plt Count 283 (130-400) K/uL MPV 10.0 (9.4-12.4) fL Immature Gran % (Auto) 0.2 % Neut % (Auto) 68.1 % Lymph % (Auto) 19.5 % Williamson % (Auto) 6.2 % Eos % (Auto) 5.6 % Baso % (Auto) 0.4 % Neut # (Auto) 5.56 (1.40-6.50) K/uL Lymph # (Auto) 1.59 (1.20-3.40) K/uL Williamson # (Auto) 0.51 (0.11-0.59) K/uL Eos # (Auto) 0.46 (0.00-0.50) K/uL Baso # (Auto) 0.03 (0.00-0.20) K/uL Immature Gran # (Auto) 0.02 (0.01-0.20) K/uL PT 10.8 (9.0-12.0) Seconds INR 1.0 (0.9-1.1) APTT 28 (21-31) Seconds PTT Ratio 1.0 Sodium 141 (136-145) mmol/L Potassium 3.9 (3.5-5.1) mmol/L Chloride 105 (98-107) mmol/L Carbon Dioxide 32 (21-32) mmol/L Anion Gap 4 (3-11) BUN 10 (6-23) mg/dl Creatinine 1.22 H (0.6-1.2) mg/dl Est Cr Clr Drug Dosing 77.2 ml/min eGFR 50.18 BUN/Creatinine Ratio 8.2 L (10-20) Glucose 88 (70-99(Fasting)) mg/dl Lactate 1.9 (0.4-2.0) mmol/L Calcium 8.6 (8.6-10.3) mg/dl Magnesium 2.0 (1.7-2.4) mg/dl Total Bilirubin 0.5 (0.2-1.0) mg/dl AST 19 (13-39) U/L ALT 12 (7-52) U/L Alkaline Phosphatase 97 (34-104) U/L Troponin I High Sens 8.4 (0-14) pg/ml B-Natriuretic Peptide 38 (0-100) pg/ml Total Protein 7.3 (6.0-8.3) gm/dl Albumin 3.7 (3.4-5.0) gm/dl Globulin 3.6 (2.5-4.0) gm/dl Albumin/Globulin Ratio 1.0 (0.9-2) Administered Medications Discontinued Medications Bumetanide 2 mg/ Syringe 8 mls @ 4 mls/min IV ONE ONE Stop: 12/06/24 17:15 Last Admin: 12/06/24 17:50 Dose: 4 mls/min Documented By: ANNE Ceftriaxone Sodium (Rocephin) 2,000 mg in 50 mls @ 100 mls/hr IV NOW STA Stop: 12/06/24 19:56 Last Infusion: 12/06/24 20:43 Dose: Infused Documented By: Admin: 12/06/24 20:14 Dose: 100 mls/hr Documented By: TAMEKA Imaging Data Radiologist's Impression: Chest X-Ray 12/06/24 16:59 Chest radiograph, one view History: Dyspnea Comparison: None Findings: Single AP view of the chest performed. No focal consolidation or pleural effusion. No pneumothorax. The cardiomediastinal silhouette is within normal limits. Normal pulmonary vascularity. No evidence for lymphadenopathy. No visualized bony or soft tissue abnormality. Impression: Normal chest radiograph Electronically signed by Norris Membreno 12-06-2024 5:52 PM Discharge Plan Visit Data Chief Complaint: Foot Injury/Pain Stated Complaint: SWELLING AND FOOT PAIN ED Provider: Will Crump Discharge Problem: Fluid overload, Cellulitis, Weight gain, Pedal edema Patient Disposition: Admitted As Inpatient Condition: Fair Forms Stand Alone Forms: [facility] [employer] Prescriptions Prescriptions: No Action linezolid 600 mg tablet 600 mg PO Q12H 14 Days Qty: 28 0RF gentamicin 0.1 % ointment 1 applic topical DAILY 14 Days Qty: 30 1RF (DME) CPAP Supplies Misc See Rx Instructions .Route Qty: 1 0RF Rx Instructions: As directed (DME) CPAP Machine Misc See Rx Instructions .Route Qty: 1 0RF Rx Instructions: As directed 11cm water pressure Jardiance 10 mg tablet 10 mg PO QAM Qty: 90 3RF Hold Instructions: Provider's Order Rx Instructions: for congestive heart failure montelukast [Singulair] 10 mg tablet 10 mg PO QPM Qty: 90 3RF albuterol sulfate [Ventolin HFA] 90 mcg/actuation HFA aerosol inhaler 2 puff INHALATION Q4H PRN (Reason: Shortness Of Breath Or Wheezing) Qty: 18 3RF pantoprazole [Protonix] 40 mg tablet,delayed release (DR/EC) 40 mg PO BID Qty: 90 3RF bupropion HCl 150 mg tablet extended release 24 hr 150 mg PO QAM Qty: 90 2RF gabapentin 400 mg capsule 400 mg PO QID Qty: 360 0RF multivitamin Tablet 1 tab PO QAM Qty: 90 1RF allopurinol 100 mg tablet 100 mg PO BID Qty: 180 1RF polyethylene glycol 3350 [Miralax] 17 gram/dose powder 17 g PO DAILY 90 Days Qty: 1530 1RF Rx Instructions: Take 17gm mixed in 8 ounces of water once daily. Can be increased up to TID as needed for constipation. aspirin 81 mg tablet,delayed release (DR/EC) 81 mg PO QAM duloxetine [Cymbalta] 60 mg capsule,delayed release(DR/EC) 60 mg PO BID albuterol sulfate 2.5 mg /3 mL (0.083 %) solution for nebulization 2.5 mg inhalation Q6H PRN (Reason: Shortness Of Breath) Qty: 90 1RF Rx Instructions: needed metoprolol succinate 25 mg tablet extended release 24 hr 25 mg PO DAILY Qty: 90 3RF spironolactone 25 mg tablet 25 mg PO BID Qty: 180 3RF bumetanide 2 mg tablet 2 mg PO BID Qty: 240 3RF Rx Instructions: Can increase to 4 mg BID PRN buspirone 15 mg tablet 15 mg PO TID Rx Instructions: pt states she also take a 5 mg tab with this to make 20 MG? cyanocobalamin (vitamin B-12) [Vitamin B-12] 1,000 mcg tablet 1,000 mcg PO QAM Tums 300 mg (750 mg) tablet,chewable 900 mg PO QAM diclofenac sodium [Voltaren Arthritis Pain] 1 % Gel 4 g EXT QID Qty: 1 0RF Rx Instructions: purchase [id number]; may use 4 grams on your lower back, either knee, either hip, back of neck. nystatin 100,000 unit/gram powder 1 applic topical TID PRN (Reason: yeast rash under breasts, abdominal skin folds) Qty: 30 0RF hydroxyzine HCl 25 mg tablet 25 mg PO HS PRN (Reason: Allergy Symptoms) cholecalciferol (vitamin D3) [Vitamin D3] 50 mcg (2,000 unit) capsule 2,000 unit PO DAILY oxycodone 5 mg Tablet 5 mg PO Q4H PRN (Reason: pain) Qty: 30 0RF sennosides [Senokot] 8.6 mg tablet 17.2 mg PO BID Rx Instructions: purchase [id number] famotidine 40 mg tablet 40 mg PO BID cetirizine [Zyrtec] 10 mg tablet 10 mg PO BID potassium chloride [Klor-Con M20] 20 mEq tablet,ER particles/crystals 20 meq PO QAM epinephrine 0.3 mg/0.3 mL auto-injector 0.3 mg IM UD PRN (Reason: anaphylaxis) acetaminophen 500 mg tablet 1,000 mg PO TID PRN (Reason: fever or pain) Qty: 90 0RF losartan 25 mg tablet 25 mg PO QAM nystatin 100,000 unit/gram ointment 1 applic EXT TID PRN (Reason: FLARE) sucralfate [Carafate] 1 gram tablet 1 g PO AC PRN (Reason: heartburn) Qty: 30 0RF Referrals Referrals: Awilda Eric CRNP [Primary Care Provider] - Discharge Problem: Fluid overload Qualifiers: Hypervolemia type: unspecified Qualified Code(s): E87.70 - Fluid overload, unspecified Cellulitis Qualifiers: Site of cellulitis: extremity Site of cellulitis of extremity: lower extremity Laterality: unspecified laterality Qualified Code(s): L03.119 - Cellulitis of unspecified part of limb
[2024-12-06 17:31] LABS: Hematocrit (blood only) 38.2 % (37.0-47.0); Hemoglobin 12.1 g/dl (12.0-16.0); Immature Granulocytes # (auto) 0.02 K/uL (0.01-0.20); Immature Granulocytes % (auto) 0.2 %; Mean Corpuscular Hemoglobin 26.5 pg (25.0-34.0); Mean Corpuscular Volume 83.8 fL (80.0-100.0); Platelet Count 283 K/uL (130-400); RDW Standard Deviation 46.8 fL (36.4-46.3); Red Blood Count 4.56 M/uL (4.20-5.40); White Blood Count 8.17 K/ul (4.8-10.8)
[2024-12-06 17:45] LABS: Alanine Aminotransferase 12.0 U/L (7-52); Albumin Globulin Ratio 1.0 (0.9-2); Alkaline Phosphatase 97.0 U/L (34-104); Anion Gap 4.0 (3-11); Bilirubin,Total 0.5 mg/dl (0.2-1.0); Blood Urea Nitrogen 10.0 mg/dl (6-23); Calcium 8.6 mg/dl (8.6-10.3); Carbon Dioxide 32.0 mmol/L (21-32); Chloride 105.0 mmol/L (98-107); Creatinine Clr Calc Pharmacy 77.2 ml/min; Globulin 3.6 gm/dl (2.5-4.0); Glucose 88.0 mg/dl (70-99(Fasting)); Magnesium 2.0 mg/dl (1.7-2.4); Potassium 3.9 mmol/L (3.5-5.1); Sodium 141.0 mmol/L (136-145); Total Protein 7.3 gm/dl (6.0-8.3)
[2024-12-06] MEDS: BUMETANIDE 2 MG in SYRINGE 0 ML IV ONE (17:50)
--- NOTE | 2024-12-06 17:56 | XRay Report ---
Chest radiograph, one view History: Dyspnea Comparison: None Findings: Single AP view of the chest performed. No focal consolidation or pleural effusion. No pneumothorax. The cardiomediastinal silhouette is within normal limits. Normal pulmonary vascularity. No evidence for lymphadenopathy. No visualized bony or soft tissue abnormality. Impression: Normal chest radiograph Electronically signed by Norris Membreno 12-06-2024 5:52 PM
[2024-12-06 17:57] LABS: INR 1.0 (0.9-1.1); Partial Thromboplastin Time 28 Seconds (21-31); Prothrombin Time 10.8 Seconds (9.0-12.0)
[2024-12-06] MEDS: cefTRIAXone SODIUM 2,000 MG/50 ML BAG IV STA (20:14)
--- NOTE | 2024-12-06 20:55 | History & Physical Report ---
Date of Service December 06, 2024 Assessment & Plan (1) Edema of both lower extremities: (2) Diabetes mellitus, type 2: Plan 64-year-old female PMHx HFpEF, HTN, T2DM, ANDRZEJ, asthma/allergies, gout, prior CVA (April 2017), , and obesity presenting for bilateral lower extremity swelling and pain for the past few days. She had increased her Bumex dose per her outpatient provider. ED evaluation reveals CBC without leukocytosis, stable H&H; PT/INR WNL; CMP creatinine 1.22, BUN/creatinine ratio 8.2; lactate 1.9; troponin 8.4; BNP 38; CXR WNL; venous Doppler bilat w/ superficial edema bilaterally, no DVT ; EKG NSR at 80 bpm.; Provided with Bumex 2 mg IV and ceftriaxone 2 g IV in ED. #BLE edema/HFpEF Worsening BLE edema x "few days." Pain and erythema. No congestive heart failure symptoms at admission. Did increase outpatient bumex dose per recommendation of PCP (from 1mg po daily to 2mg po BID). Follows with HF clinic (12/01/2024). Takes bumetanide 2mg BID, spironolactone 25mg BID currently on hold. ~ 20lb weight gain over past 2 weeks. With wounds bottom of L foot, follows with wound clinic, currently on Linezolid after course of Bactrim. Low suspicion for cellulitis at this time, suspect volume overload but not acute HF at time of admission. - CBC without leukocytosis, lactate WNL - low suspicion for infection - CBC am - CMP Cr 1.22; BNP 38 (in setting of obesity) - BMP am - CXR WNL - Venous Doppler bilat w/ superficial edema bilaterally, no DVT - Strict I+Os and daily standing weights - Wrap legs bilat + elevate - Acetaminophen prn pain, oxycodone prn severe/breakthrough pain - Continue Bumex 2mg BID IV - Previously on Bactrim then linezolid for diabetic foot wounds -- continue linezolid 600mg po q12h -- wound care daily, wound care consulted (appreciate assistance) #T2DM W/ neuropathy, on gabapentin. At home regimen includes empagliflozin (for heart failure) which is actually on hold at this time. - Most recent A1C 07/2024 @ 5.9% - Continue to hold Jardiance - SSI with target BSG range 110-150mg/dL, CF 40, carb ratio deferred - BSG ACHS - Adjust regimen as needed #HTN- Losartan, metoprolol - continue #CKD, stage IIIa/b- Follows with nephrology, most recent visit 10/20/2024. Baseline Cr 1.4-1.5; Cr at admission 1.22 -- BMP am #Gout- Allopurinol - continue #Asthma/Allergies- Cetirizine, hydroxyzine prn, montelukast, Inhalers and nebs - continue #ANDRZEJ- CPAP nightly - continue #Psych- Bupropion and duloxetine on hold, buspirone - continue buspirone #GERD- Famotidine, pantoprazole, Sucralfate- continue #H/o CVA- April 2017; ASA - continue #Back pain- Oxycodone previously; Independently reviewed PDMP at admission - no current opioids being taken outpatient Dispo: Admit, med/tele VTE Prophylaxis: Heparin This document was dictated utilizing Lumus. Please excuse any grammatical errors that may be secondary to use of this software. Admission and Anticipated Discharge Date Admission Date: 12/06/2024 History of Present Illness Chief Complaint: BLE edema Primary Care Provider: CARRIE Monaco 64-year-old female PMHx HFpEF, HTN, T2DM, ANDRZEJ, asthma/allergies, gout, prior CVA (April 2017), , and obesity presenting for bilateral lower extremity swelling and pain for the past few days. States that her legs just kept getting "worse and worse" over the past ~ 2 weeks, causing her to have severe 10/10 pain, and her legs were erythematous. She states that the pain is sharp and always present. Currently a 10/10. L > R. She does have 2 wounds on the bottom of her L foot that are being followed by wound care weekly. She completed a course of Bactrim for these, then was prescribed Linezolid and is currently taking that. She does not have a fever or seepage from her legs. Feels that she may have gained up to 20lbs over the past 2 weeks, feels that most of it is resting in her legs. She increased her outpatient Bumex from 1mg po daily to 2mg po BID and has not noticed much improvement. She notes a history of MRSA. Of note, she had some dysuria on the day of arrival, no additional LUTS. Denies SOB, HAYES, or chest pain. No coughing. No abdominal fullness. Occasionally has low back pain and R hip pain, no recent trauma or falls, no longer taking oxycodone. Denies chest pain, SOB, palpitations, abdominal pain, N/V/D/C, numbness/tingling aside from baseline, URI symptoms, fevers, additional LUTS, weakness, or syncope. She has been taking her medications as prescribed. ED evaluation reveals CBC without leukocytosis, stable H&H; PT/INR WNL; CMP creatinine 1.22, BUN/creatinine ratio 8.2; lactate 1.9; troponin 8.4; BNP 38; CXR WNL; venous Doppler bilat w/ superficial edema bilaterally, no DVT; EKG NSR at 80 bpm.; Provided with Bumex 2 mg IV and ceftriaxone 2 g IV in ED. Please see Dr. Dickerson's attestation for adjustments/additions to treatment plan. Allergies Allergy/AdvReac Type Severity Reaction Status Date / Time Corticosteroids Allergy Severe Anaphylaxis Verified 12/06/24 20:36 (Glucocorticoids) clindamycin Allergy Intermediate Rash Verified 12/06/24 20:36 dog dander Allergy Intermediate Rash Verified 12/06/24 20:36 iron [From Venofer] Allergy Intermediate Rash Verified 12/06/24 20:36 morphine Allergy Intermediate mouth and Verified 12/06/24 20:36 face swells Penicillins Allergy Intermediate rash/hives Verified 12/06/24 20:36 adhesive Allergy Mild Skin rash Verified 12/06/24 20:36 localized zolpidem Allergy Unknown Unknown Verified 12/06/24 20:36 pregabalin AdvReac Intermediate "makes Verified 12/06/24 20:36 goofy" Home Medications Medication Instructions Recorded Confirmed Type calcium carbonate (Tums) 900 mg PO QAM 03/03/22 12/06/24 History cyanocobalamin (vitamin B-12) 1,000 mcg PO QAM 03/03/22 12/06/24 History 1,000 mcg tablet (Vitamin B-12) albuterol sulfate 2.5 mg/3 mL 2.5 mg (3 mL) inhalation Q6H PRN 06/25/23 12/06/24 Rx (0.083 %) solution for nebulization Shortness Of Breath #90 mL aspirin 81 mg tablet,delayed 81 mg PO QAM 06/25/23 12/06/24 History release duloxetine 60 mg capsule,delayed 60 mg PO BID 06/25/23 12/06/24 History release (Cymbalta) diclofenac sodium 1 % topical gel 4 g EXT QID #1 tube 08/30/23 12/06/24 Rx (Voltaren Arthritis Pain) nystatin 100,000 unit/gram topical 1 applic topical TID PRN yeast 08/30/23 12/06/24 Rx powder rash under breasts, abdominal skin folds #30 grams CPAP Supplies #1 ea 09/28/23 12/01/24 Rx CPAP Machine #1 ea 09/29/23 12/01/24 Rx cetirizine 10 mg tablet (Zyrtec) 10 mg PO BID 10/20/23 12/06/24 History empagliflozin 10 mg tablet 10 mg PO QAM #90 tabs 12/02/23 12/06/24 Rx (Jardiance) potassium chloride 20 mEq 20 meq PO QAM 12/24/23 12/06/24 History tablet,extended release(part/cryst) (Klor-Con M) montelukast 10 mg tablet 10 mg PO QPM #90 tabs 01/03/24 12/06/24 Rx (Singulair) albuterol sulfate 90 mcg/actuation 2 puff inhalation Q4H PRN 01/04/24 12/06/24 Rx aerosol inhaler (Ventolin HFA) Shortness Of Breath Or Wheezing #18 grams epinephrine 0.3 mg/0.3 mL 0.3 mg IM UD PRN anaphylaxis 01/06/24 12/06/24 History injection, auto-injector acetaminophen 500 mg tablet 1,000 mg (2 x 500 mg) PO TID PRN 02/04/24 12/06/24 Rx fever or pain #90 tabs pantoprazole 40 mg tablet,delayed 40 mg PO BID #90 tabs 05/31/24 12/06/24 Rx release (Protonix) bupropion HCl 150 mg 24 hr tablet, 150 mg PO QAM #90 tabs 06/08/24 12/06/24 Rx extended release gabapentin 400 mg capsule 400 mg PO QID #360 caps 06/30/24 12/06/24 Rx losartan 25 mg tablet 25 mg PO QAM 07/23/24 12/06/24 History nystatin 100,000 unit/gram topical 1 applic EXT TID PRN FLARE 07/23/24 12/06/24 History ointment multivitamin 1 tab PO QAM #90 tabs 07/24/24 12/06/24 Rx sucralfate 1 gram tablet (Carafate) 1 g PO AC PRN heartburn #30 tabs 07/31/24 12/06/24 Rx buspirone 15 mg tablet 15 mg PO TID 08/01/24 12/06/24 History cholecalciferol (vitamin D3) 50 2,000 unit PO TID 09/01/24 12/06/24 History mcg (2,000 unit) capsule (Vitamin D3) hydroxyzine HCl 25 mg tablet 25 mg PO HS PRN Allergy Symptoms 09/01/24 12/06/24 History oxycodone 5 mg tablet 5 mg PO Q4H PRN pain #30 tabs 09/12/24 12/06/24 Rx allopurinol 100 mg tablet 100 mg PO BID #180 tabs 09/13/24 12/06/24 Rx sennosides 8.6 mg tablet (Senokot) 17.2 mg PO BID 10/06/24 12/06/24 History metoprolol succinate 25 mg 25 mg PO DAILY #90 tabs 10/16/24 12/06/24 Rx tablet,extended release 24 hr famotidine 40 mg tablet 40 mg PO QPM 10/23/24 12/06/24 History gentamicin 0.1 % topical ointment 1 applic topical DAILY 2 weeks #30 11/09/24 12/06/24 Rx grams spironolactone 25 mg tablet 25 mg PO BID #180 tabs 12/01/24 12/06/24 Rx linezolid 600 mg tablet 600 mg PO Q12H 14 days #28 tabs 12/02/24 12/06/24 Rx bumetanide 2 mg tablet 4 mg PO BID 12/06/24 12/06/24 History polyethylene glycol 3350 17 17 g PO DAILY PRN Constipation 12/06/24 12/06/24 History gram/dose oral powder (Miralax) Past Med/Surg History Problem List (Updated 12/06/24 @ 20:51 by Will Crump MD) Pedal edema (Acute) Weight gain (Acute) Cellulitis (Acute) Fluid overload (Acute) Aortic stenosis Mild 07/2024 Abrasion, left foot, initial encounter Cellulitis of left foot Diabetic ulcer of left foot associated with diabetes mellitus due to underlying condition, with fat layer exposed Pyelonephritis (Acute) Trauma of ear canal Dietary counseling and surveillance Mass of soft tissue of ankle Ambulatory dysfunction (Acute) Diabetic foot infection (Acute) Diabetic foot infection Left radial head fracture Diabetic ulcer of left foot Diabetic ulcer of right foot Venous ulcers of both lower extremities Adnexal cyst Postprandial nausea Chronic diastolic (congestive) heart failure Iron deficiency anemia Iron deficiency anemia Perforated ear drum Acute osteomyelitis of toe of left foot (Acute) Diabetic infection of left foot (Acute) Toe gangrene Cellulitis of both lower extremities 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 Status post panniculectomy Musculoskeletal pain Cellulitis of left leg (Acute) Weakness (Acute) Weight gain (Acute) CHF (congestive heart failure) (Acute) Panniculitis (Acute) Acute kidney injury superimposed on CKD Obesity (Acute) Failure of outpatient treatment (Acute) Cellulitis (Acute) Supraclavicular lymphadenopathy Acute on chronic heart failure with preserved ejection fraction Open wound of abdomen (Acute) Morbid obesity HAYES (dyspnea on exertion) (Acute) CKD (chronic kidney disease) stage 3, GFR 30-59 ml/min (Acute) Acute exacerbation of CHF (congestive heart failure) (Acute) Cellulitis (Acute) Cellulitis of suprapubic region Acute on chronic heart failure VARINDER (acute kidney injury) Osteoarthritis of hip Constipation Lymphoma Hip pain, right Failure of outpatient treatment (Acute) CRF (chronic renal failure) (Acute) Edema of both lower extremities (Acute) Fluid overload (Acute) Edema of abdominal wall (Acute) Ulcer of both feet Volume overload Hx MRSA infection 09/2021 s/p left knee infection > resolved > continues with doxycycline daily for prevention Lymphadenopathy of left cervical region Urticaria Chronic ulcer of left foot with fat layer exposed Diabetes mellitus type 2 with neurological manifestations Candidiasis of skin Solitary kidney, congenital Bilateral hip pain Low back pain Weakness (Acute) Lower extremity edema (Acute) CHF (congestive heart failure) (Acute) Abdominal pannus Fatty liver Dependent lymphedema Stage 3b chronic kidney disease Anemia reason for procedure. iron infusions recently. 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 Chronic ulcer of left foot Anxiety and depression DJD (degenerative joint disease) Right ventricular dilation Asthma Severe obstructive sleep apnea Dyslipidemia Hypertension (Acute) Chronic heart failure with preserved ejection fraction Morbid obesity with BMI of 50.0-59.9, adult Prediabetes History of CVA (cerebrovascular accident) states it was a "mini stroke" 2016 Chronic venous stasis dermatitis of both lower extremities Other ovarian cyst, left side Vitamin D deficiency Peripheral neuropathy Lumbar spinal stenosis 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- DISCOVERED WITH INCIDENTAL IMAGING Gout CKD (chronic kidney disease) stage 3, GFR 30-59 ml/min monitoring Chronic back pain Acid reflux Medical History Diabetes Acute kidney injury superimposed on stage 3b chronic kidney disease Acute UTI (urinary tract infection) Sepsis Diabetic foot ulcer Abdominal wall cellulitis Hypokalemia Mast cell disease B-cell lymphoma Hx-TIA (transient ischemic attack) 2016 > ASA for prevention > no residual effects Hx of sepsis 09/2021 r/t left knee infection Hypertension Lumbar spinal stenosis Arthritis Allergic rhinitis Gout Other ovarian cyst, left side present, just monitoring Acid reflux Severe obstructive sleep apnea cpap Stage 3 chronic kidney disease follows with Dr. Wood Fatty liver CHF (congestive heart failure) follows with Ashlyn Griffin Solitary kidney, congenital Diabetes mellitus, type 2 Ulcer of foot one ulcer present to bottom of bilat feet > follows with wound clinic at [facility], improving per pt History of COVID-19 09/2021 Iron deficiency anemia Venous stasis of both lower extremities MDD (major depressive disorder), recurrent episode, moderate Ambulatory dysfunction uses walker Depression with anxiety Degenerative joint disease, shoulder, right Lymphedema left leg and abdomen / chronic Asthma well controlled, rare res inh use Hyperlipidemia no meds Surgical History Hx of biopsy (12/29/23) Left Neck Lymph Node Biopsy(Left) - Yohan Maldonado, DO, FACS History of insertion of central venous access port removed in 2022 History of revision of total replacement of left knee joint History of cardiac cath remote hx over 20 yrs ago, no stents History of colonoscopy History of esophagogastroduodenoscopy (EGD) History of bilateral knee replacement (10/16/22) H/O knee surgery (12/2021) L knee washout w/ polyexchange S/P tonsillectomy and adenoidectomy Status post total shoulder arthroplasty (10/17/18) right History of carpal tunnel release B/L H/O ventral hernia repair History of appendectomy History of cholecystectomy Family History Mother Diabetes Coronary heart disease Myocardial infarction S/P CABG x 3 Hypertension Gallbladder disease Sister Hodgkins lymphoma Brother Kidney disease Grandmother Breast cancer Aunt Ovarian cancer Father , 02/11/20. 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 Beliefs That Will Affect Care: None marital status: marital status details: ; lives with parents & 1 daughter Current Living Situation: Family Current Living Situation Comment: Lives with daughter and her mom current occupational status: disabled other: worked in [employer] in [employer]; 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 Feels Safe at Home: Yes Childhood Exposure to Second-Hand Smoke: No Diet: regular Diet Comment: regular caffeine: No Dental Care, Regularly: No Physical Activity Frequency: Does not Exercise Seatbelt Use: always Sunscreen Use: Yes Assistive Devices: Walker Review of Systems 2 Review of Systems: All systems reviewed & are unremarkable except as noted in Subjective Physical Exam 2 Physical Exam: General: No acute distress, obese Skin: Warm and dry; BLE with chronic skin changes, slightly erythematous, wounds base L foot (see images) Head: Normocephalic, atraumatic Eyes: PERRL, conjunctivae clear, sclera non-icteric ENT: External ear and ear canal without swelling; nose atraumatic; wearing dentures, tongue normal appearance, pharynx normal Neck: Supple, no LAD Cardio: systolic murmur, RRR, no G/R, S1 and S2 normal Resp: No respiratory distress, Lungs CTA in all lobes bilaterally, no wheezes, rales, or rhonchi Abdomen: Soft, symmetric, mild tenderness over bladder; No masses or hepatosplenomegaly; Bowel sounds normoactive MSK: No deformities; pulses palpable and equal; 2+ pitting edema BLE, tender to palpation . Neuro: Awake, alert; Sensation intact bilaterally; CN grossly intact Psych: Appropriate mood and affect; good judgement and insight. Results & Data Results & Data Vital Signs (Past 12 Hours) Vital Signs Temp Pulse Resp BP Pulse Ox O2 Del Method 12/06/24 20:18 65 12 115/91 98 Room Air 12/06/24 17:34 75 12/06/24 16:52 36.0 C L 77 20 148/90 H 100 Room Air Laboratory Results 12/06/24 18:29 Aerobic Blood Culture - Pending Blood Anaerobic Blood Culture - Pending 12/06/24 18:29 Aerobic Blood Culture - Pending Blood Anaerobic Blood Culture - Pending 12/06/24 12/06/24 18:29 17:12 WBC 8.17 RBC 4.56 Hgb 12.1 Hct 38.2 MCV 83.8 MCH 26.5 MCHC 31.7 L RDW Std Deviation 46.8 H RDW Coeff of Cleo 15.5 H Plt Count 283 MPV 10.0 Immature Gran % (Auto) 0.2 Neut % (Auto) 68.1 Lymph % (Auto) 19.5 [place] % (Auto) 6.2 Eos % (Auto) 5.6 Baso % (Auto) 0.4 Neut # (Auto) 5.56 Lymph # (Auto) 1.59 [place]ble # (Auto) 0.51 Eos # (Auto) 0.46 Baso # (Auto) 0.03 Immature Gran # (Auto) 0.02 PT 10.8 INR 1.0 APTT 28 PTT Ratio 1.0 Sodium 141 Potassium 3.9 Chloride 105 Carbon Dioxide 32 Anion Gap 4 BUN 10 Creatinine 1.22 H Est Cr Clr Drug Dosing 77.2 eGFR 50.18 BUN/Creatinine Ratio 8.2 L Glucose 88 Lactate 1.9 Calcium 8.6 Magnesium 2.0 Total Bilirubin 0.5 AST 19 ALT 12 Alkaline Phosphatase 97 Troponin I High Sens 8.4 B-Natriuretic Peptide 38 Total Protein 7.3 Albumin 3.7 Globulin 3.6 Albumin/Globulin Ratio 1.0 Diagnostic Findings Chest X-Ray 12/06/24 16:59 Chest radiograph, one view History: Dyspnea Comparison: None Findings: Single AP view of the chest performed. No focal consolidation or pleural effusion. No pneumothorax. The cardiomediastinal silhouette is within normal limits. Normal pulmonary vascularity. No evidence for lymphadenopathy. No visualized bony or soft tissue abnormality. Impression: Normal chest radiograph Electronically signed by Norris Membreno 12-06-2024 5:52 PM Medications Administered Bumex 2 mg IV Ceftriaxone 2 g IV ECG Additional Comments: NSR 80 bpm, MI 172, QRS 88, QT/QTc 382/440, PRT 48/-28/12 Code Status & VTE Plan Code Status Full Supervising Physician Co-Signing Physician Notes Patient seen and examined, chart reviewed, case discussed with SANDRA Harrington and I agree with the assessment and plan as above Worsening edema. Suspect lymphedema Diuresis Monitor for infection Remainder as above PG Care Time/CCT Total # of Minutes Spent Total Time Spent with Patient: Total time spent is greater than 50% in coordination of care (as documented) at patient's floor/unit and/or counseling patient: Coding Level of Care Code 07830 INT INP/OBS CARE 3/75MIN Diagnoses Edema of both lower extremities R60.0 Diabetes mellitus, type 2 E11.9
--- NOTE | 2024-12-06 21:24 | Ultrasound Report ---
Exam(s): US VENOUS BILATERAL LOWER EXTREMITIES EXAM: US Duplex Bilateral Lower Extremities Veins CLINICAL HISTORY: Reason for exam: swelling. TECHNIQUE: Real-time duplex ultrasound scan of the bilateral lower extremity veins integrating B-mode two-dimensional vascular structure, Doppler spectral analysis, color flow Doppler imaging and compression. Limited detail due to body habitus. COMPARISON: None. FINDINGS: Veins: No DVT in the visualized veins bilaterally, including the common femoral, superficial femoral, proximal deep femoral and popliteal veins. The veins demonstrate normal color flow, are normally compressible, with normal phasic flow and/or augmentation response. Soft tissues: No popliteal cyst. Probable bilateral superficial edema. IMPRESSION: 1. Superficial edema suspected bilaterally. 2. No DVT in the bilateral lower extremity. Electronically signed by: Nivia Klein M.D. 12/06/24 21:23 PM
[2024-12-07] MEDS ORDERED: GLUCAGON FOR INJ 1 MG VIAL SQ PRN (00:49)
[2024-12-07] MEDS ORDERED: DEXTROSE 50% 50 ML SYRINGE IV PRN (00:49)
[2024-12-07] MEDS ORDERED: ALBUTEROL 0.083% NEBU SOLN 3 ML VIAL INH PRN (00:49)
[2024-12-07] MEDS ORDERED: GLUCOSE 10 TAB/TUBE PO PRN (00:49)
[2024-12-07] MEDS ORDERED: ALBUTEROL HFA 8 GM INHALER INH PRN (00:49)
[2024-12-07] MEDS ORDERED: CARBOHYDRATES FOR HYPOGLYCEMIA PO PRN (00:49)
[2024-12-07] MEDS ORDERED: GLUCOSE 40% GEL 15 GM TUBE PO PRN (00:49)
[2024-12-07] MEDS ORDERED: CALCIUM CARBONATE 500 MG CHEWABLE TAB PO PRN (00:53)
[2024-12-07 01:13] LABS: Appearance Urine Clear (Clear); Glucose Urine UA 2+ (Negative)
[2024-12-07 06:57] LABS: Hematocrit (blood only) 35.6 % (37.0-47.0); Hemoglobin 11.6 g/dl (12.0-16.0); Mean Corpuscular Hemoglobin 26.9 pg (25.0-34.0); Mean Corpuscular Volume 82.4 fL (80.0-100.0); Platelet Count 271 K/uL (130-400); RDW Standard Deviation 46.0 fL (36.4-46.3); Red Blood Count 4.32 M/uL (4.20-5.40); White Blood Count 7.41 K/ul (4.8-10.8)
[2024-12-07 07:23] LABS: Anion Gap 5.0 (3-11); Blood Urea Nitrogen 8.0 mg/dl (6-23); Calcium 8.5 mg/dl (8.6-10.3); Carbon Dioxide 33.0 mmol/L (21-32); Chloride 105.0 mmol/L (98-107); Creatinine Clr Calc Pharmacy 80.2 ml/min; Glucose 89.0 mg/dl (70-99(Fasting)); Potassium 3.9 mmol/L (3.5-5.1); Sodium 143.0 mmol/L (136-145)
[2024-12-07] MEDS: GABAPENTIN 400 MG CAP PO SCH (08:31)
[2024-12-07] MEDS: CETIRIZINE HCL 10 MG TABLET PO SCH (08:31)
[2024-12-07] MEDS: busPIRone 15 MG TAB PO SCH (08:31)
[2024-12-07] MEDS: DICLOFENAC SOD 1% GEL 100 GM TUBE EXT SCH (08:31)
[2024-12-07] MEDS: ASPIRIN 81 MG ECTAB PO SCH (08:31)
[2024-12-07] MEDS: LINEZOLID 600 MG TAB PO SCH (08:32)
[2024-12-07] MEDS: LOSARTAN POTASSIUM 25 MG TAB PO SCH (08:32)
[2024-12-07] MEDS: METOPROLOL SUCC 25MG EXT REL TAB PO SCH (08:32)
[2024-12-07] MEDS: SENNA 8.6 MG TAB PO SCH (08:33)
[2024-12-07] MEDS: POTASSIUM CHLORIDE CRTAB 20 MEQ TABCR PO SCH (08:33)
[2024-12-07] MEDS: INSULIN ASPART PER UNIT CHARGE SC SCH (08:44)
[2024-12-07] MEDS: ACETAMINOPHEN 500 MG TAB PO PRN (08:55)
[2024-12-07] MEDS: BUMETANIDE 2 MG in SYRINGE 0 ML IV SCH (09:03)
[2024-12-07] MEDS ORDERED: VANCOMYCIN HCL 2,750 MG in SODIUM CHLORIDE 0.9% 500 ML IV ONE (13:59)
[2024-12-07] MEDS ORDERED: VANCOMYCIN CONSULT ACTIVE PRN (13:59)
--- NOTE | 2024-12-07 14:44 | XRay Report ---
XR foot LT 2V CLINICAL HISTORY: acute foot pain COMPARISON: 11/03/2024 FINDINGS: Stable amputation of the third toe. No acute fracture or dislocation seen. There is planta r soft tissue gas suggesting soft tissue ulcers. No evidence of osteomyelitis seen. There are a few p osterior plantar soft tissue calcifications. IMPRESSION: No acute osseous finding seen. ACT 112: Negative or not required by law. Electronically signed by: Yohan Wright M.D. 12/07/2024 2:42 PM
--- NOTE | 2024-12-07 15:44 | Hospitalist Progress Note ---
Date of Service December 07, 2024 Assessment & Plan (1) Edema of both lower extremities: (2) Diabetes mellitus, type 2: Plan 64-year-old woman with type 2 diabetes and neuropathy complicated by plantar ulcers, HFpEF and RV dysfunction who was admitted for 20 pound weight gain over a few days or week despite doubling oral diuretics, severe left foot pain which is increased and difficulty ambulating Regarding the edema she has component of right heart failure, and nephrosarca and/or bowel wall edema may be impairing oral diuretic absorption. Edema improved and Cr improved The left foot pain has been treated for presumed infection with bactrim then linezolid without clinical improvement. Previous wound cultures with proteus and MRSA. Suspect pain may not be of infectious etiology - consider fracture/charcot foot or crystalline arthritis Suspect her overall pain significantly worsened by stopping cymbalta and wellbutrin #Acute on chronic right heart failure, chronic HFpEF with mild underlying -continue diuresis with bumex 2 mg IV bid -cont metoprolol, resume empagliflozin, resume spironolactone -monitor weight, edema, I/O -am BMP and mag. Cr improved from 1.2-->1.12 today. Mag and K normal #L foot pain and erythema -LE duplex was negative -change linezolid to daptomycin and resume her cymbalta and bupropion. Discussed with clinical pharmacist -foot x-ray -prednisone 40 mg daily -continue allopurinol -oxycodone and APAP PRN pain #Right lower abdominal wall / R groin / anterior R thigh pain - suspect peripheral nerve. OA pain should be better at rest and not painful to LT, r adicular lumbar pain would be posterior thigh -resume cymbalta, bupropion -rapid resolution of edema can cause some pain #Left sided diabetic foot wounds -consult WON -has CAM boots -follow up with #T2DM W/ neuropathy, on gabapentin. At home regimen includes empagliflozin (for heart failure) which is actually on hold at this time. - Most recent A1C 07/2024 @ 5.9% - resume empagliflozin - SSI with target BSG range 110-150mg/dL, CF 40, carb ratio deferred - BSG ACHS - Adjust regimen as needed #HTN- Losartan, metoprolol - continue #CKD, stage IIIa/b- Follows with nephrology, most recent visit 10/20/2024. Baseline Cr 1.4-1.5; Cr at admission 1.22 -- BMP am #Gout- Allopurinol - continue #Asthma/Allergies- Cetirizine, hydroxyzine prn, montelukast, Inhalers and nebs - continue #ANDRZEJ- CPAP nightly - continue #Psych- Bupropion and duloxetine resumed, buspirone - continue buspirone #GERD- Famotidine, pantoprazole, Sucralfate- continue #H/o CVA- April 2017; ASA - continue #Back pain- Oxycodone previously; Independently reviewed PDMP at admission - no current opioids being taken outpatient DVT ppx - bid enox PT/OT eval Admission and Anticipated Discharge Date Admission Date: December 06, 2024 Subjective Having severe pain in L foot - this going on few weeks and not improved by antibiotics Today c/o severe anterior R thigh pain - even to light touch. Starts groin rad to knee Thinks leg edema improved a little No dyspnea/cough Physical Exam Physical Exam: Last 24h vitals reviewed GEN: no acute distress, sitting in bed HEENT: pupils equal, sclerae anicteric, moist MM RESP: normal WOB, CTAB CV: reg no mrg ABD: soft/nt/nd +BT. Protruberant. Not too much pannus edema. Scar from healed incision across lower abd wall. Tender to LT in this area and Rt anterior thigh stops above knee : no phillips SKIN: warm and dry, no generalized rashes EXT: lymphedema bilateral LE including thighs, hard to assess, lower pannus edema below old incision. No erythema pannus groin or thigh L foot with two plantar ulcers - appear clean based and minimal drainage no odor L forefoot warm and tender, erythematous especially around 1st MTP NEURO: AOx person, place, and situation. Face symmetric, speech normal, moves 4 ext spontaneously and equally Results & Data Results & Data Vital Signs (Past 12 Hours) Vital Signs Temp Pulse Pulse Resp BP Pulse Ox O2 Del Method 12/07/24 14:24 66 12/07/24 09:25 Room Air 12/07/24 08:13 36.5 C 71 17 114/69 95 Nasal Cannula 12/07/24 08:00 69 12/07/24 03:40 36.5 C 75 20 138/74 98 Nasal Cannula O2 Flow Rate 12/07/24 14:24 12/07/24 09:25 12/07/24 08:13 1 12/07/24 08:00 12/07/24 03:40 1 PG Care Time/CCT Total # of Minutes Spent Total Time Spent with Patient: Total time spent is greater than 50% in coordination of care (as documented) at patient's floor/unit and/or counseling patient: Coding Level of Care Code 29209 SUB INP/OBS CARE 3/50MIN Diagnoses Edema of both lower extremities R60.0 Diabetes mellitus, type 2 E11.9
[2024-12-07] MEDS: DAPTOmycin 600 MG in SYRINGE 0 ML IV SCH (16:00)
[2024-12-07] MEDS: predniSONE 20 MG TAB PO SCH (16:00)
[2024-12-07] MEDS: HYDROmorphone INJ 0.5 MG/0.5 ML SYR IV STA (20:23)
[2024-12-07] MEDS: ONDANSETRON INJ 2 MG/ML 2 ML VIAL IV PRN (21:37)
[2024-12-07] MEDS: SPIRONOLACTONE 25 MG TAB PO SCH (21:47)
[2024-12-07] MEDS: MONTELUKAST SODIUM 10 MG TABLET PO SCH (21:47)
[2024-12-07] MEDS: ENOXAPARIN INJ 40 MG/0.4 ML SYR SQ SCH (21:48)
[2024-12-07] MEDS: FAMOTIDINE 40 MG TABLET PO SCH (21:49)
[2024-12-08 06:59] LABS: Anion Gap 7.0 (3-11); Blood Urea Nitrogen 11.0 mg/dl (6-23); Calcium 9.1 mg/dl (8.6-10.3); Carbon Dioxide 35.0 mmol/L (21-32); Chloride 99.0 mmol/L (98-107); Creatinine Clr Calc Pharmacy 63.0 ml/min; Glucose 146.0 mg/dl (70-99(Fasting)); Magnesium 2.1 mg/dl (1.7-2.4); Potassium 4.3 mmol/L (3.5-5.1); Sodium 141.0 mmol/L (136-145)
[2024-12-08] MEDS: EMPAGLIFLOZIN 10 MG TAB PO SCH (08:25)
[2024-12-08] MEDS: BUMETANIDE 2 MG in SYRINGE 0 ML IV SCH (08:50)
[2024-12-08] MEDS: POLYETHYLENE (MIRALAX) 17 GM PACK PO PRN (15:25)
--- NOTE | 2024-12-08 16:57 | Hospitalist Progress Note ---
Date of Service December 08, 2024 Assessment & Plan (1) Edema of both lower extremities: (2) Diabetes mellitus, type 2: (3) Acute gout: (4) CKD (chronic kidney disease) stage 3, GFR 30-59 ml/min: Plan 64-year-old woman with type 2 diabetes and neuropathy complicated by plantar ulcers, HFpEF and RV dysfunction who was admitted for 20 pound weight gain over a few days or week despite doubling oral diuretics, severe left foot pain which is increased and difficulty ambulating, inability to bear weight on the left foot and inability to bear weight on the right because of back/hip/thigh pain Regarding the edema she has component of right heart failure, and nephrosarca and/or bowel wall edema may have been impairing oral diuretic absorption. Edema significantly improved after IV diuresis. Creatinine has increased from 1.2-1.4, large urine output last 24 hours will hold Bumex at this time The left foot pain has been treated for presumed infection with bactrim then linezolid without clinical improvement. Previous wound cultures with proteus and MRSA. Suspect pain may not be of infectious etiology - consider fracture/charcot foot or crystalline arthritis. change antibiotics and started prednisone for acute gout today the foot is much less painful especially the forefoot area and the erythema has resolved Suspect her overall pain significantly worsened by stopping cymbalta and wellbutrin - resume disease 12/08 #Acute on chronic right heart failure, chronic HFpEF with mild underlying - hold Bumex today - got 2 mg IV this a.m., hold pending tomorrow morning labs -cont metoprolol, empagliflozin, spironolactone -monitor weight, edema, I/O - magnesium and potassium remain normal today however creatinine has increased to 1.4 #L foot pain and erythema - has been treated as forefoot cellulitis however suspect this may be crystalline arthritis. Significant improvement overnight with 1 dose of prednisone 40 mg #acute gout flare, underlying chronic gout -LE duplex was negative -changed linezolid to daptomycin to allow resumption of cymbalta and bupropion. -foot x-ray unremarkable -prednisone 40 mg daily - continue, continue allopurinol as well -oxycodone and APAP PRN pain - was able to get up a little bit with PT/OT but not ambulatory yet #Right lower abdominal wall / R groin / anterior R thigh pain - suspect peripheral nerve. OA pain should be better at rest and not painful to LT, radicular lumbar pain would be posterior thigh -resume cymbalta, bupropion -rapid resolution of edema can cause some pain #Left sided diabetic foot wounds diabetic ulcers of left foot with fat layer exposed -consulted WON - appreciate recommendations. ulcers do not appear infected to me -has CAM boots - having trouble complying with nonweightbearing status on left foot at home -follow up with Dr. Somers #T2DM W/ neuropathy, on gabapentin. At home regimen includes empagliflozin (for heart failure) which is actually on hold at this time. - Most recent A1C 07/2024 @ 5.9% - resume empagliflozin - SSI with target BSG range 110-150mg/dL, CF 40, carb ratio deferred - BSG ACHS - Adjust regimen as needed #HTN- Losartan, metoprolol - continue #CKD, stage IIIa/b- Follows with nephrology, most recent visit 10/20/2024. Baseline Cr 1.4-1.5; Cr at admission 1.22 - a.m. BMP #Asthma/Allergies- Cetirizine, hydroxyzine prn, montelukast, Inhalers and nebs - continue. stable #ANDRZEJ- CPAP nightly - continue #Psych- Bupropion and duloxetine resumed, continue buspirone #GERD- Famotidine, pantoprazole, Sucralfate- continue #H/o CVA- April 2017; ASA - continue #Back pain- Oxycodone previously; Independently reviewed PDMP at admission - no current opioids being taken outpatient - having acute flare, suspect mainly related to having stopped Cymbalta and Wellbutrin, also may be component of gait dysfunction because of left foot pain DVT ppx - bid enox PT/OT eval - antalgic and only could walk 30 feet with walker had a loss of balance episode related to right hip pain. she adamantly refused rehab stay thus recommend home health PT/OT Admission and Anticipated Discharge Date Admission Date: December 06, 2024 Subjective Kriss reports that left foot is still painful but has improved especially the left forefoot she can now stand and bear some weight she continues to have right-sided low back pain radiating around right hip/groin to right anterior thigh that is severe. the back pain is chronic but seems to be exacerbated leg edema is significantly improved no cough or shortness of breath Physical Exam 2 Physical Exam: Last 24h vitals reviewed GEN: no acute distress, sitting up on the edge of the bed working on a [employer] project HEENT: pupils equal, sclerae anicteric, moist MM RESP: normal WOB, CTAB CV: reg no mrg ABD: soft/nt/nd +BT. Scar from healed incision across lower abd wall. Tender to LT in this area and Rt anterior thigh but not so much as yesterday. No rash in this area : no phillips SKIN: warm and dry, no generalized rashes EXT: lymphedema bilateral LE including thighs, significantly improved reviewed photos from wound ostomy nurse: L foot with two plantar ulcers - appear clean based and minimal drainage no odor, Third area of darkening more posteriorly may be deep tissue injury L forefoot has improved on the photograph with no evidence of erythema, currently has just been dressed by WON, much less tender NEURO: AOx person, place, and situation. Face symmetric, speech normal, moves 4 ext spontaneously and equally Results & Data Results & Data Vital Signs (Past 12 Hours) Vital Signs Temp Pulse Pulse Resp BP Pulse Ox O2 Del Method 12/08/24 15:41 36.6 C 71 19 121/68 97 Room Air 12/08/24 13:48 70 12/08/24 11:30 36.7 C 68 18 120/64 91 Room Air 12/08/24 07:44 36.4 C L 77 18 156/80 H 98 Room Air 12/08/24 06:45 59 L Laboratory Results 12/07/24 06:04 12/08/24 05:51 magnesium is 2.1 Diagnostic Findings left foot x-ray without any fractures or evidence of osteomyelitis PG Care Time/CCT Total # of Minutes Spent Total Time Spent with Patient: Total time spent is greater than 50% in coordination of care (as documented) at patient's floor/unit and/or counseling patient: Coding Level of Care Code 47013 SUB INP/OBS CARE 3/50MIN Diagnoses Edema of both lower extremities R60.0 Diabetes mellitus, type 2 E11.9 Acute gout M10.9 CKD (chronic kidney disease) stage 3, GFR 30-59 ml/min N18.31 Chronic kidney disease stage 3 subtype: stage 3a (GFR 45-59) (4) CKD (chronic kidney disease) stage 3, GFR 30-59 ml/min Chronic kidney disease stage 3 subtype: stage 3a (GFR 45-59) Qualified Code(s): N18.31 - Chronic kidney disease, stage 3a
--- NOTE | 2024-12-09 06:02 | Electrocardiogram Report ---
Test Reason : Blood Pressure : */* mmHG Vent. Rate : 80 BPM Atrial Rate : 80 BPM P-R Int : 172 ms QRS Dur : 88 ms QT Int : 382 ms P-R-T Axes : 48 -28 12 degrees QTcB Int : 440 ms Normal sinus rhythm Inferior infarct (cited on or before 23-Jul-2017) Anteroseptal infarct (cited on or before 01-Oct-2017) Abnormal ECG When compared with ECG of 06-Oct-2024 17:04, Nonspecific T wave abnormality, improved in Anterior leads Confirmed by Corey Gross ([id number] on 12/09/2024 6:01:56 AM Referred By: Confirmed By: Corey Gross
[2024-12-09 07:17] LABS: Anion Gap 4.0 (3-11); Blood Urea Nitrogen 17.0 mg/dl (6-23); Calcium 8.7 mg/dl (8.6-10.3); Carbon Dioxide 36.0 mmol/L (21-32); Chloride 100.0 mmol/L (98-107); Creatinine Clr Calc Pharmacy 58.4 ml/min; Glucose 93.0 mg/dl (70-99(Fasting)); Magnesium 2.2 mg/dl (1.7-2.4); Potassium 4.0 mmol/L (3.5-5.1); Sodium 140.0 mmol/L (136-145)
[2024-12-09] MEDS: BUMETANIDE 1 MG TAB PO SCH (11:14)
--- NOTE | 2024-12-09 13:53 | Hospitalist Progress Note ---
Date of Service December 09, 2024 Assessment & Plan (1) Edema of both lower extremities: (2) Diabetes mellitus, type 2: (3) Acute gout: (4) CKD (chronic kidney disease) stage 3, GFR 30-59 ml/min: Plan 64-year-old woman with type 2 diabetes and neuropathy complicated by plantar ulcers, HFpEF and RV dysfunction who was admitted for 20 pound weight gain over a few days or week despite doubling oral diuretics, severe left foot pain which is increased and difficulty ambulating, inability to bear weight on the left foot and inability to bear weight on the right because of back/hip/thigh pain Regarding the edema she has component of right heart failure, and nephrosarca and/or bowel wall edema may have been impairing oral diuretic absorption. Edema significantly improved after IV diuresis. Changed to oral diuretics. The left foot pain has been treated for presumed infection with bactrim then linezolid without clinical improvement. Previous wound cultures with proteus and MRSA. Strongly suspect she had acute gout of left forefoot, now resolved after doses of prednisone. ABX changed to daptomycin because of drug interactions with linezolid her overall pain had significantly worsened after stopping cymbalta and wellbutrin - resumed 12/08 #Acute on chronic right heart failure, chronic HFpEF with mild underlying -home dose / maintenance bumex 2 mg bid today - change to torsemide at equivalent dosing 80 mg qAM tomorrow. May have better absorption for her. -cont metoprolol, empagliflozin, spironolactone -monitor weight, edema, I/O -Cr stably elevated top end of baseline, lytes normal -AM BMP #acute gout flare, underlying chronic gout -LE duplex was negative -changed linezolid to daptomycin to allow resumption of cymbalta and bupropion. -foot x-ray unremarkable -prednisone 40 mg daily - continue, continue allopurinol as well -oxycodone and APAP PRN pain -has been able to get up a little bit with PT/OT but not ambulatory yet #Right lower abdominal wall / R groin / anterior R thigh pain - suspect peripheral nerve combined with lumbar radicular pain. This seems to be chronic -resumed cymbalta, bupropion -improving #Left sided diabetic foot wounds diabetic ulcers of left foot with fat layer exposed -consulted WON - appreciate recommendations. ulcers do not appear infected to me -has CAM boots - having trouble complying with nonweightbearing status on left foot at home -follow up with Dr. Somers #T2DM W/ neuropathy, on gabapentin. At home regimen includes empagliflozin (for heart failure) which is actually on hold at this time. - Most recent A1C 07/2024 @ 5.9% - resumed empagliflozin - SSI with target BSG range 110-150mg/dL, CF 40, carb ratio deferred - BSG ACHS - BG reviewed and at goal #HTN- Losartan, metoprolol - continue #CKD, stage IIIa/b- Follows with nephrology, most recent visit 10/20/2024. Baseline Cr 1.4-1.5; Cr at admission 1.22 now 1.52 - a.m. BMP #Asthma/Allergies- Cetirizine, hydroxyzine prn, montelukast, Inhalers and nebs - continue. stable #ANDRZEJ- CPAP nightly - continue #Psych- Bupropion and duloxetine resumed, continue buspirone #GERD- Famotidine, pantoprazole, Sucralfate- continue #H/o CVA- April 2017; ASA - continue DVT ppx - bid enox PT/OT eval - antalgic and only could walk 30 feet with walker had a loss of balance episode related to right hip pain. she adamantly refused rehab stay thus recommend home health PT/OT assess progress over this weekend Admission and Anticipated Discharge Date Admission Date: December 06, 2024 Subjective L forefoot pain resolved, heel and ulcers remain painful R LBP rad to R hip/thigh still significant but much improved edema much improved Physical Exam Physical Exam: Last 24h vitals reviewed GEN: sitting in / on EOB and moving around much better HEENT: pupils equal, sclerae anicteric, moist MM RESP:nonlabored CV: ABD: ND : no phillips SKIN: warm and dry, no generalized rashes EXT: thigh edema seems resolved, woody edema from lower third of shins down has improved L forefoot and 1st MTP erythema and tenderness resolved. Two plantar ulcers and one dark spot more posteriorly unchanged, no significant drainage no odor NEURO: AOx person, place, and situation. Face symmetric, speech normal, moves 4 ext spontaneously and equally Results & Data Results & Data Vital Signs (Past 12 Hours) Vital Signs Temp Pulse Pulse Resp BP BP Pulse Ox 12/09/24 11:05 36.6 C 61 18 117/79 94 12/09/24 07:54 71 12/09/24 07:25 36.5 C 72 18 152/61 H 97 12/09/24 03:46 36.4 C L 81 20 176/89 H 94 O2 Del Method 12/09/24 11:05 Room Air 12/09/24 07:54 12/09/24 07:25 Room Air 12/09/24 03:46 Room Air Laboratory Results Cr increased to 1.5 mag normal 2.2 potassium normal 4.0 PG Care Time/CCT Total # of Minutes Spent Total Time Spent with Patient: Total time spent is greater than 50% in coordination of care (as documented) at patient's floor/unit and/or counseling patient: Coding Level of Care Code 97990 SUB INP/OBS CARE 2/35MIN Diagnoses Edema of both lower extremities R60.0 Diabetes mellitus, type 2 E11.9 Acute gout M10.9 CKD (chronic kidney disease) stage 3, GFR 30-59 ml/min N18.31 Chronic kidney disease stage 3 subtype: stage 3a (GFR 45-59) (4) CKD (chronic kidney disease) stage 3, GFR 30-59 ml/min Chronic kidney disease stage 3 subtype: stage 3a (GFR 45-59) Qualified Code(s): N18.31 - Chronic kidney disease, stage 3a
[2024-12-10 02:32] LABS: A calco-baum cmplx NotReported Not Detected (NotDetected); Bact fragilis Not Reported Not Detected (NotDetected); Blood Culture Id Panel See PCR Comment (NotDetected); C auris Not Reported Not Detected (NotDetected); Calbicans Not Reported Not Detected (NotDetected); Candida glabrata Not Reported Not Detected (NotDetected); Candida krusei Not Reported Not Detected (NotDetected); Cneoformans/gatti Not Reported Not Detected (NotDetected); Cparapsilosis Not Reported Not Detected (NotDetected); Ctropicalis Not Reported Not Detected (NotDetected); E cloacae compx Not Reported Not Detected (NotDetected); Efaecalis Not Reported Not Detected (NotDetected); Efaecium Not Reported Not Detected (NotDetected); Enterobacterales Not Reported Not Detected (NotDetected); Escherichia coli Not Reported Not Detected (NotDetected); H influenzae Not Reported Not Detected (NotDetected); K aerogenes Not Reported Not Detected (NotDetected); Koxytoca Not Reported Not Detected (NotDetected); Kpneumoniae grp Not Reported Not Detected (NotDetected); Lmonocyt Not Reported Not Detected (NotDetected); N meningitidis Not Reported Not Detected (NotDetected); P aeruginosa Not Reported Not Detected (NotDetected); Proteus spp Not Reported Not Detected (NotDetected); Salmonella spp Not Reported Not Detected (NotDetected); Staph lugdunensis Not Reported DETECTED (NotDetected); Staph spp. Not Reported DETECTED (NotDetected); Staphaureus Not Reported Not Detected (NotDetected); Staphepi Not Reported DETECTED (NotDetected); Staphylococcus spp. DETECTED (NotDetected); Stenmaltophilia Not Reported Not Detected (NotDetected); Strep agal(GrpB) Not Reported Not Detected (NotDetected); Strep pneum Not Reported Not Detected (NotDetected); Strep pyog (GrpA) Not Reported Not Detected (NotDetected); Strep spp Not Reported Not Detected (NotDetected); mecAC Resistant Gene Not Detected (NotDetected)
[2024-12-10 03:17] LABS: Staphylococcus epidermidis DETECTED (NotDetected); Staphylococcus lugdunensis DETECTED (NotDetected)
[2024-12-10 07:14] LABS: Anion Gap 6.0 (3-11); Blood Urea Nitrogen 24.0 mg/dl (6-23); Calcium 8.7 mg/dl (8.6-10.3); Carbon Dioxide 36.0 mmol/L (21-32); Chloride 98.0 mmol/L (98-107); Creatinine Clr Calc Pharmacy 67.3 ml/min; Glucose 86.0 mg/dl (70-99(Fasting)); Magnesium 2.2 mg/dl (1.7-2.4); Potassium 3.9 mmol/L (3.5-5.1); Sodium 140.0 mmol/L (136-145)
[2024-12-10] MEDS: TORSEMIDE 20 MG TAB PO SCH (10:15)
--- NOTE | 2024-12-10 13:17 | Hospitalist Progress Note ---
Date of Service December 10, 2024 Assessment & Plan (1) Edema of both lower extremities: (2) Diabetes mellitus, type 2: (3) Acute gout: (4) CKD (chronic kidney disease) stage 3, GFR 30-59 ml/min: Plan 64-year-old woman with type 2 diabetes and neuropathy complicated by plantar ulcers, HFpEF and RV dysfunction who was admitted for 20 pound weight gain over a few days or week despite doubling oral diuretics, severe left foot pain which is increased and difficulty ambulating, inability to bear weight on the left foot and inability to bear weight on the right because of back/hip/thigh pain Regarding the edema she has component of right heart failure, and nephrosarca and/or bowel wall edema may have been impairing oral diuretic absorption. Edema significantly improved after IV diuresis. Changed to oral diuretics 12/09. currently we are trying torsemide instead of bumetanide for better GI absorption. The left foot pain has been treated for presumed infection with bactrim then linezolid without clinical improvement. Previous wound cultures with proteus and MRSA. Strongly suspect she had acute gout of left forefoot, now resolving after doses of prednisone. ABX changed to daptomycin because of drug interactions with linezolid, She will complete a 5-day course on 12/11 her overall pain had significantly worsened after stopping cymbalta and wellbutrin prior to admission- resumed 12/08 when linezolid was stopped and she is continue to improve day by day #Acute on chronic right heart failure, chronic HFpEF with mild underlying - continue torsemide 80 mg p.o. every morning -cont metoprolol, empagliflozin, spironolactone -monitor weight, edema, I/O - electrolytes remain normal and creatinine has come down a little bit to 1.3 -AM BMP #acute gout flare, underlying chronic gout -LE duplex was negative -foot x-ray unremarkable -prednisone 40 mg daily - continue for about 5 days then stop or decrease dose, continue allopurinol as well -oxycodone and APAP PRN pain -has been able to get up a little bit with PT/OT but not ambulatory yet #Right lower abdominal wall / R groin / anterior R thigh pain - suspect peripheral nerve combined with lumbar radicular pain. This seems to be chronic -resumed cymbalta, bupropion trial capsaicin cream -improving #Left sided diabetic foot wounds diabetic ulcers of left foot with fat layer exposed -consulted WON - appreciate recommendations. ulcers do not appear infected to me -has CAM boots - having trouble complying with nonweightbearing status on left foot at home -follow up with Dr. Somers #T2DM W/ neuropathy, on gabapentin. At home regimen includes empagliflozin (for heart failure) which is actually on hold at this time. - Most recent A1C 07/2024 @ 5.9% - resumed empagliflozin - SSI with target BSG range 110-150mg/dL, CF 40, carb ratio deferred - BSG ACHS - blood glucoses are at goal last 24 hours #HTN- Losartan, metoprolol - continue #CKD, stage IIIa/b- Follows with nephrology, most recent visit 10/20/2024. Baseline Cr 1.4-1.5; - creatinine a little improved after decreasing diuretic dosing, at baseline 1.3 today #Asthma/Allergies- Cetirizine, hydroxyzine prn, montelukast, Inhalers and nebs - continue. stable #ANDRZEJ- CPAP nightly - continue #Psych- Bupropion and duloxetine resumed, continue buspirone #GERD- Famotidine, pantoprazole, Sucralfate- continue #H/o CVA- April 2017; ASA - continue DVT ppx - bid enox PT/OT eval - antalgic and only could walk 30 feet with walker had a loss of balance episode related to right hip pain. she adamantly refused rehab stay thus recommend home health PT/OT assess progress over this weekend Admission and Anticipated Discharge Date Admission Date: December 06, 2024 Subjective doing okay she does not perceive any change in her weight or edema I think she peed a good amount yesterday on the oral Bumex. Left forefoot is continuing to improve with respect to pain her back pain is also better she continues to have pain radiating down her anterior thigh especially anterior lateral thigh above the knee Physical Exam 2 Physical Exam: Last 24h vitals reviewed GEN: awake alert sitting in bed HEENT: pupils equal, sclerae anicteric, moist MM RESP:nonlabored CV: deferred ABD: ND : no phillips SKIN: warm and dry, no generalized rashes EXT: no thigh or abdominal wall edema, woody edema starts just below the calves and is same as yesterday, left foot is dressed NEURO: AOx person, place, and situation. Face symmetric, speech normal, moves 4 ext spontaneously and equally Results & Data Results & Data Vital Signs (Past 12 Hours) Vital Signs Temp Pulse Pulse Resp BP Pulse Ox O2 Del Method 12/10/24 11:31 36.5 C 61 18 131/80 94 Room Air 12/10/24 07:37 36.5 C 63 18 138/77 98 Room Air 12/10/24 07:32 55 L 12/10/24 02:55 36.5 C 63 20 142/82 H 97 Room Air Laboratory Results 12/07/24 06:04 12/10/24 06:18 PG Care Time/CCT Total # of Minutes Spent Total Time Spent with Patient: Total time spent is greater than 50% in coordination of care (as documented) at patient's floor/unit and/or counseling patient: Coding Level of Care Code 47609 SUB INP/OBS CARE 2/35MIN Diagnoses Edema of both lower extremities R60.0 Diabetes mellitus, type 2 E11.9 Acute gout M10.9 CKD (chronic kidney disease) stage 3, GFR 30-59 ml/min N18.31 Chronic kidney disease stage 3 subtype: stage 3a (GFR 45-59) (4) CKD (chronic kidney disease) stage 3, GFR 30-59 ml/min Chronic kidney disease stage 3 subtype: stage 3a (GFR 45-59) Qualified Code(s): N18.31 - Chronic kidney disease, stage 3a
[2024-12-11 06:52] LABS: Anion Gap 7.0 (3-11); Blood Urea Nitrogen 28.0 mg/dl (6-23); Calcium 9.0 mg/dl (8.6-10.3); Carbon Dioxide 39.0 mmol/L (21-32); Chloride 94.0 mmol/L (98-107); Creatinine Clr Calc Pharmacy 53.5 ml/min; Glucose 87.0 mg/dl (70-99(Fasting)); Magnesium 2.1 mg/dl (1.7-2.4); Potassium 4.0 mmol/L (3.5-5.1); Sodium 140.0 mmol/L (136-145)
[2024-12-11] MEDS: SUCRALFATE 1 GM TAB PO PRN (08:23)
[2024-12-11] MEDS: TORSEMIDE 20 MG TAB PO SCH (10:05)
--- NOTE | 2024-12-11 14:15 | Podiatry Consultation ---
Date of Consultation December 11, 2024 Assessment & Plan (1) Diabetic ulcer of left foot associated with diabetes mellitus due to underlying condition, with fat layer exposed: Diabetic foot ulcer location: midfoot Qualified Code(s): E08.621 - Diabetes mellitus due to underlying condition with foot ulcer; L97.422 - Non- pressure chronic ulcer of left heel and midfoot with fat layer exposed (2) Acute gout: Gout site: foot Gout etiology: due to renal impairment Laterality: left Qualified Code(s): M10.372 - Gout due to renal impairment, left ankle and foot (3) Pedal edema: (4) Cellulitis: Laterality: unspecified laterality Site of cellulitis: extremity Site of cellulitis of extremity: lower extremity Qualified Code(s): L03.119 - Cellulitis of unspecified part of limb (5) Diabetic foot infection: Plan Lengthy discussion with patient regarding the importance of recommendation for placement in a shelter facility especially given her lower extremity wounds. In addition to issues with stability; explained to patient that we have exhausted standard of care treatment for plantar foot ulcerations and we have noted her ulcerations have continued to decline over the past several weeks. She is currently offloading bilateral feet with modified cam boots with specific offloading the area of ulceration at all times while ambulating. We have attempted total contact casting however this is complicated by fluctuating lower extremity edema, instability, body habitus and recurrent infection to the woun ds. Patient had similar ulcerations to the right lower extremity which went on to heal with extended period of nonweightbearing following recent hospitalization and discharged to a shelter facility as she was able to remain primarily nonweightbearing during this time. I am encouraged by the stability of the right foot following resolution of ulcerations despite preulcerative lesion which is reformed despite continuing use of cam walker. I believe Kriss's best chance at limb preservation would be for her to discharge to a shelter facility where she will remain minimal weig htbearing to the bilateral foot with daily dressing changes as the wounds continue to heal followed by transition to a custom modified diabetic shoes with rigid out sole and rocker bottom and custom molded accommodative inserts to maintain evenly distributed pressure to the plantar aspect of the foot for ambulation. Explained to Kriss that I feel she would to return home immediately following discharge against the recommendations of her medical team not only which should be at risk for fall and possible further injury while I feel that her wounds are likely to continue to deteriorate putting her at risk for recurrent infection, readmission and loss of limb. Kriss voices understanding and agrees with recommendation for placement into a shelter facility. - Continue modified cam walker to bilateral lower extremity for short distance and transfer with the assistance of a walker. Patient encouraged to minimize weightbearing whenever possible. - Continue once daily dressing change with Aquacel Ag and a dry sterile dressing. - Change dressing to the dorsal abrasion of the left foot with Aquacel Ag and a dry sterile dressing - Elevate feet to help reduce fluid accumulation and promote healing - Protect heels to prevent breakdown Thank you for consulting podiatry to aid in the care of this patient. Will continue to follow while she remains in the hospital and arrange close follow-up in the wound care center following discharge. History of Present Illness Reason for Consultation: Diabetic foot ulceration left Attending Physician: Dorie Mendez MD History of Present Illness Trevor is a 64-year-old female past medical history significant for type 2 diabetes with diabetic peripheral neuropathy and history of left third digit amputation, chronic diabetic ulceration x 2 to the plantar left foot, HFpEF and RV dysfunction who presents to [facility] emergency department 12/06/2024 with rapid weight gain equaling 20 pounds over a week's time despite doubling oral diuretics and increased left foot pain. Patient was initiated on linezolid for management of right foot cellulitis stemming from diabetic foot ulcerations on 12/06/2024 in which time I had asked her to hold Cymbalta and bupropion. On admission these medications are resumed and her antibiotic is switched to daptomycin for continued coverage. She is initiated on prednisone for management of acute gout attack and continued on allopurinol. As an outpatient patient is followed at the wound care center weekly for diabetic ulceration x 2 of the left foot which have been declining despite best efforts at offloading due to continued repetitive pressure and complicated by recurrent infection. Allergies Allergy/AdvReac Type Severity Reaction Status Date / Time Corticosteroids Allergy Severe Anaphylaxis Verified 12/06/24 20:36 (Glucocorticoids) clindamycin Allergy Intermediate Rash Verified 12/06/24 20:36 dog dander Allergy Intermediate Rash Verified 12/06/24 20:36 iron [From Venofer] Allergy Intermediate Rash Verified 12/06/24 20:36 morphine Allergy Intermediate mouth and Verified 12/06/24 20:36 face swells Penicillins Allergy Intermediate rash/hives Verified 12/06/24 20:36 adhesive Allergy Mild Skin rash Verified 12/06/24 20:36 localized zolpidem Allergy Unknown Unknown Verified 12/06/24 20:36 pregabalin AdvReac Intermediate "makes Verified 12/06/24 20:36 goofy" Home Medications Medication Instructions Recorded Confirmed Type calcium carbonate (Tums) 900 mg PO QAM 03/03/22 12/06/24 History cyanocobalamin (vitamin B-12) 1,000 mcg PO QAM 03/03/22 12/06/24 History 1,000 mcg tablet (Vitamin B-12) albuterol sulfate 2.5 mg/3 mL 2.5 mg (3 mL) inhalation Q6H PRN 06/25/23 12/06/24 Rx (0.083 %) solution for nebulization Shortness Of Breath #90 mL aspirin 81 mg tablet,delayed 81 mg PO QAM 06/25/23 12/06/24 History release duloxetine 60 mg capsule,delayed 60 mg PO BID 06/25/23 12/06/24 History release (Cymbalta) diclofenac sodium 1 % topical gel 4 g EXT QID #1 tube 08/30/23 12/06/24 Rx (Voltaren Arthritis Pain) nystatin 100,000 unit/gram topical 1 applic topical TID PRN yeast 08/30/23 12/06/24 Rx powder rash under breasts, abdominal skin folds #30 grams CPAP Supplies #1 ea 09/28/23 12/01/24 Rx CPAP Machine #1 ea 09/29/23 12/01/24 Rx cetirizine 10 mg tablet (Zyrtec) 10 mg PO BID 10/20/23 12/06/24 History empagliflozin 10 mg tablet 10 mg PO QAM #90 tabs 12/02/23 12/06/24 Rx (Jardiance) potassium chloride 20 mEq 20 meq PO QAM 12/24/23 12/06/24 History tablet,extended release(part/cryst) (Klor-Con M) montelukast 10 mg tablet 10 mg PO QPM #90 tabs 01/03/24 12/06/24 Rx (Singulair) albuterol sulfate 90 mcg/actuation 2 puff inhalation Q4H PRN 01/04/24 12/06/24 Rx aerosol inhaler (Ventolin HFA) Shortness Of Breath Or Wheezing #18 grams epinephrine 0.3 mg/0.3 mL 0.3 mg IM UD PRN anaphylaxis 01/06/24 12/06/24 History injection, auto-injector acetaminophen 500 mg tablet 1,000 mg (2 x 500 mg) PO TID PRN 02/04/24 12/06/24 Rx fever or pain #90 tabs bupropion HCl 150 mg 24 hr tablet, 150 mg PO QAM #90 tabs 06/08/24 12/06/24 Rx extended release gabapentin 400 mg capsule 400 mg PO QID #360 caps 06/30/24 12/06/24 Rx losartan 25 mg tablet 25 mg PO QAM 07/23/24 12/06/24 History nystatin 100,000 unit/gram topical 1 applic EXT TID PRN FLARE 07/23/24 12/06/24 History ointment multivitamin 1 tab PO QAM #90 tabs 07/24/24 12/06/24 Rx sucralfate 1 gram tablet (Carafate) 1 g PO AC PRN heartburn #30 tabs 07/31/24 12/06/24 Rx buspirone 15 mg tablet 15 mg PO TID 08/01/24 12/06/24 History cholecalciferol (vitamin D3) 50 2,000 unit PO TID 09/01/24 12/06/24 History mcg (2,000 unit) capsule (Vitamin D3) hydroxyzine HCl 25 mg tablet 25 mg PO HS PRN Allergy Symptoms 09/01/24 12/06/24 History oxycodone 5 mg tablet 5 mg PO Q4H PRN pain #30 tabs 09/12/24 12/06/24 Rx allopurinol 100 mg tablet 100 mg PO BID #180 tabs 09/13/24 12/06/24 Rx sennosides 8.6 mg tablet (Senokot) 17.2 mg PO BID 10/06/24 12/06/24 History metoprolol succinate 25 mg 25 mg PO DAILY #90 tabs 10/16/24 12/06/24 Rx tablet,extended release 24 hr famotidine 40 mg tablet 40 mg PO QPM 10/23/24 12/06/24 History gentamicin 0.1 % topical ointment 1 applic topical DAILY 2 weeks #30 11/09/24 12/06/24 Rx grams spironolactone 25 mg tablet 25 mg PO BID #180 tabs 12/01/24 12/06/24 Rx linezolid 600 mg tablet 600 mg PO Q12H 14 days #28 tabs 12/02/24 12/06/24 Rx bumetanide 2 mg tablet 4 mg PO BID 12/06/24 12/06/24 History polyethylene glycol 3350 17 17 g PO DAILY PRN Constipation 12/06/24 12/06/24 History gram/dose oral powder (Miralax) pantoprazole 40 mg tablet,delayed 40 mg PO BID #90 tabs 12/07/24 Rx release (Protonix) Patient History Medical History Diabetes Acute kidney injury superimposed on stage 3b chronic kidney disease Acute UTI (urinary tract infection) Sepsis Diabetic foot ulcer Abdominal wall cellulitis Hypokalemia Mast cell disease B-cell lymphoma Hx-TIA (transient ischemic attack) 2016 > ASA for prevention > no residual effects Hx of sepsis 09/2021 r/t left knee infection Hypertension Lumbar spinal stenosis Arthritis Allergic rhinitis Gout Other ovarian cyst, left side present, just monitoring Acid reflux Severe obstructive sleep apnea cpap Stage 3 chronic kidney disease follows with Dr. Wood Fatty liver CHF (congestive heart failure) follows with Ashlyn Griffin Solitary kidney, congenital Diabetes mellitus, type 2 Ulcer of foot one ulcer present to bottom of bilat feet > follows with wound clinic at [place], improving per pt History of COVID-19 09/2021 Iron deficiency anemia Venous stasis of both lower extremities MDD (major depressive disorder), recurrent episode, moderate Ambulatory dysfunction uses walker Depression with anxiety Degenerative joint disease, shoulder, right Lymphedema left leg and abdomen / chronic Asthma well controlled, rare res inh use Hyperlipidemia no meds Surgical History Hx of biopsy (12/29/23) Left Neck Lymph Node Biopsy(Left) - Yohan Maldonado, DO, FACS History of insertion of central venous access port removed in 2022 History of revision of total replacement of left knee joint History of cardiac cath remote hx over 20 yrs ago, no stents History of colonoscopy History of esophagogastroduodenoscopy (EGD) History of bilateral knee replacement (10/16/22) H/O knee surgery (12/2021) L knee washout w/ polyexchange S/P tonsillectomy and adenoidectomy Status post total shoulder arthroplasty (10/17/18) right History of carpal tunnel release B/L H/O ventral hernia repair History of appendectomy History of cholecystectomy Family History Mother Diabetes Coronary heart disease Myocardial infarction S/P CABG x 3 Hypertension Gallbladder disease Sister Hodgkins lymphoma Brother Kidney disease Grandmother Breast cancer Aunt Ovarian cancer Father , 02/11/20. Peripheral vascular disease Daughter Diabetes Other Cancer No family history of adverse response to anesthesia Denies family history of Prostate cancer Colorectal cancer Social History Smoking Status: Former smoker Tobacco Type: Cigarettes Age Started Using Tobacco: 22; Age Quit Using Tobacco: 24; packs per day: 1; Second Hand Exposure: No; Do You Dip or Chew Tobacco: No; Hx Alcohol Use: No Hx Substance Use: No Preferred Language: [place] 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 Ability: Effective Visual Impairment: Limited Hearing Ability: Normal Resistor Coater Required: No Beliefs That Will Affect Care: None marital status: marital status details: ; lives with parents & 1 daughter Current Living Situation: Family Current Living Situation Comment: Lives with daughter and her mom current occupational status: disabled other: worked in [place] in [employer]; 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 Denies nausea vomiting fever chills. Reports decreased pain in the left foot since the time of admission. Physical Exam Physical Exam: Const: Appears well developed and well nourished. Obese. No signs of acute distress present. CV: Extremities: No cyanosis. Bilateral lower extremity edema left greater than right. Capillary refill time is less than 2 seconds all digits of the bilateral foot. Posterior tibial and dorsalis pedis pulses are palpable bilateral. Skin: Thin atrophic skin with loss of hair growth bilateral lower extremity below the knee with stasis changes to the skin bilateral. Neuro: Loss of protective sensation to toes bilateral. Diminished protective sensation to bilateral plantar foot. Notable pain to palpation areas of ulceration. Psych: Mood/Affect: Mood is normal. Affect is normal. Cognition: Orientation is intact to person, place and time. Focused lower extremity musculoskeletal exam: Abnormal gait pattern with shuffling of feet and heavy heel strike. Uses a walker for ambulation. Leg: No pain with compression of the calf muscle. Decreased edema to the left lower extremity over the past week. Motor strength is intact. Range of motion pain-free and unlimited. Posterior lateral right ankle is evaluated with no signs of external injury. There is a firm well-circumscribed 1.6 cm diameter subcutaneous soft tissue mass/nodule no signs of local soft tissue irritation or infection. On palpation there is generalized tenderness which is noted bilaterally. Feet: Bilateral flatfoot deformity. Right foot: Preulcerative lesion subfifth metatarsal base with minimal hyperkeratotic buildup and blood tingeing. There is no breakdown in the skin or signs of local soft tissue infection. No fluctuance at this time. Left foot: Well-healed third digit amputation. Diabetic ulceration subfifth metatarsal base and subfirst metatarsal head. Ulceration says decreased in size over the past week. Both ulcerations extend into the subcutaneous tissue layer with serous drainage to dressings. Granular wound bed to both ulceration. Decreased erythema and edema since last seen by myself on 12/04/2024. Significant reduction in edema to the left lower extremity noted. Minimal hyperkeratotic buildup to the wound borders. Wounds do not probe or track in any direction at this time. New ulceration: Unstageable pressure injury left plantar heel with overlying epithelium intact. No periwound erythema or edema. No fluctuance to the area to suggest underlying abscess formation. Results & Data Vital Signs (Past 12 Hours) Vital Signs Temp Pulse Resp BP Pulse Ox O2 Del Method 12/11/24 11:51 36.5 C 63 18 135/85 93 Room Air 12/11/24 07:45 36.4 C L 56 L 16 115/71 98 Room Air 12/11/24 04:54 36.5 C 67 16 127/77 97 Room Air PG Care Time/CCT Total # of Minutes Spent Total Time Spent with Patient: Total time spent is greater than 50% in coordination of care (as documented) at patient's floor/unit and/or counseling patient: Coding Level of Care Code 66176 INT INP/OBS CARE MIN Diagnoses Diabetic ulcer of left midfoot associated with diabetes mellitus due to underlying condition, with fat layer exposed E08.621; L97.422 Diabetic foot ulcer location: midfoot Acute gout due to renal impairment involving left foot M10.372 Gout site: foot Gout etiology: due to renal impairment Laterality: left Pedal edema R60.0 Cellulitis L03.119 Laterality: unspecified laterality Site of cellulitis: extremity Site of cellulitis of extremity: lower extremity Diabetic foot infection E11.628; L08.9
--- NOTE | 2024-12-11 19:56 | Hospitalist Progress Note ---
Date of Service December 11, 2024 Assessment & Plan (1) Edema of both lower extremities: (2) Diabetes mellitus, type 2: (3) Acute gout: (4) CKD (chronic kidney disease) stage 3, GFR 30-59 ml/min: (5) Diabetic ulcer of left foot associated with diabetes mellitus due to underlying condition, with fat layer exposed: Plan 64-year-old woman with type 2 diabetes and neuropathy complicated by plantar ulcers, HFpEF and RV dysfunction who was admitted for 20 pound weight gain over a few days or week despite doubling oral diuretics, severe left foot pain which is increased and difficulty ambulating, inability to bear weight on the left foot and inability to bear weight on the right because of back/hip/thigh pain Regarding the edema she has component of right heart failure, and nephrosarca and/or bowel wall edema may have been impairing oral diuretic absorption. Edema significantly improved after IV/po diuresis. Changed to oral diuretics 12/09. Brisk response to torsemide, plan on this for discharge rather than bumex The left foot pain has been treated for presumed infection with bactrim then linezolid without clinical improvement. Previous wound cultures with proteus and MRSA. Strongly suspect she had acute gout of left forefoot, now resolving after doses of prednisone. ABX changed to daptomycin because of drug interactions with linezolid, completed a 5-day course on 12/11 her overall pain had significantly worsened after stopping cymbalta and wellbutrin prior to admission- resumed 12/08 when linezolid was stopped and she is continue to improve day by day #Left sided diabetic foot wounds diabetic ulcers of left foot with fat layer exposed -consulted WON - appreciate recommendations. ulcers do not appear infected to me -has CAM boots - having trouble complying with nonweightbearing status on left foot at home -consulted Dr. Somers, discussed with him and reviewed recommendations in note. For chance of salvaging left foot, she needs to be off of it which is not happening at home and tissue injury has progressed. He discussed this with her and she is willing to have SNF rehab stay. Discussed with care coord #Acute on chronic right heart failure, chronic HFpEF with mild underlying - continue torsemide - looks dry on exam, labs reducing dose to 60 mg but already got AM dose of 80 today. Hold AM dose tomorrow pending labs -cont metoprolol, empagliflozin, spironolactone -monitor weight, edema, I/O -Cr up to 1.63 with elevated BUN -AM BMP #acute gout flare, underlying chronic gout -LE duplex was negative -foot x-ray unremarkable -prednisone 40 mg daily x 5 days through 12/11, decrease to 10 mg daily x 5 days and continue allopurinol -oxycodone and APAP PRN pain #Right lower abdominal wall / R groin / anterior R thigh pain - suspect peripheral nerve combined with lumbar radicular pain. This seems to be chronic -resumed cymbalta, bupropion trial capsaicin cream -improving #T2DM W/ neuropathy, on gabapentin. At home regimen includes empagliflozin (for heart failure) which is actually on hold at this time. - Most recent A1C 07/2024 @ 5.9% - resumed empagliflozin - SSI with target BSG range 110-150mg/dL, CF 40, carb ratio deferred - BSG ACHS - blood glucoses are at goal last 24 hours reviewed 12/11 #HTN- Losartan, metoprolol - continue #CKD, stage IIIa/b- Follows with nephrology, most recent visit 10/20/2024. Baseline Cr 1.4-1.5; - creatinine up to 1.6 after brisk diuresis #Asthma/Allergies- Cetirizine, hydroxyzine prn, montelukast, Inhalers and nebs - continue. stable #ANDRZEJ- CPAP nightly - continue #Psych- Bupropion and duloxetine resumed, continue buspirone #GERD- Famotidine, pantoprazole, Sucralfate- continue #H/o CVA- April 2017; ASA - continue DVT ppx - bid enox SNF referrals made Admission and Anticipated Discharge Date Admission Date: December 06, 2024 Subjective Continues with LBP and L hip pain but slowly improving L forefoot only mildly painful, foot pain is at the heel Edema significantly improved Physical Exam 2 Physical Exam: Last 24h vitals reviewed GEN: sitting on EOB HEENT: pupils equal, sclerae anicteric, moist MM RESP:nonlabored CV: deferred ABD: ND : no phillips SKIN: warm and dry, no generalized rashes EXT: no thigh or abdominal wall edema, woody edema starts just below the calves and is much improved compared to yesterday, left foot is dressed - toes peeking out no longer red/inflamed NEURO: AOx person, place, and situation. Face symmetric, speech normal, moves 4 ext spontaneously and equally Results & Data Results & Data Vital Signs (Past 12 Hours) Vital Signs Temp Pulse Resp BP Pulse Ox O2 Del Method 12/11/24 15:48 36.7 C 68 20 141/84 H 91 Room Air 12/11/24 11:51 36.5 C 63 18 135/85 93 Room Air Laboratory Results 12/07/24 06:04 12/11/24 05:59 PG Care Time/CCT Total # of Minutes Spent Total Time Spent with Patient: Total time spent is greater than 50% in coordination of care (as documented) at patient's floor/unit and/or counseling patient: Coding Level of Care Code 16769 SUB INP/OBS CARE 2/35MIN Diagnoses Edema of both lower extremities R60.0 Diabetes mellitus, type 2 E11.9 Acute gout due to renal impairment involving left foot M10.372 Gout site: foot Gout etiology: due to renal impairment Laterality: left CKD (chronic kidney disease) stage 3, GFR 30-59 ml/min N18.31 Chronic kidney disease stage 3 subtype: stage 3a (GFR 45-59) Diabetic ulcer of left midfoot associated with diabetes mellitus due to underlying condition, with fat layer exposed E08.621; L97.422 Diabetic foot ulcer location: midfoot (3) Acute gout Gout site: foot Gout etiology: due to renal impairment Laterality: left Qualified Code(s): M10.372 - Gout due to renal impairment, left ankle and foot (4) CKD (chronic kidney disease) stage 3, GFR 30-59 ml/min Chronic kidney disease stage 3 subtype: stage 3a (GFR 45-59) Qualified Code(s): N18.31 - Chronic kidney disease, stage 3a (5) Diabetic ulcer of left foot associated with diabetes mellitus due to underlying condition, with fat layer exposed Diabetic foot ulcer location: midfoot Qualified Code(s): E08.621 - Diabetes mellitus due to underlying condition with foot ulcer; L97.422 - Non-pressure chronic ulcer of left heel and midfoot with fat layer exposed
[2024-12-11] MEDS: CAPSAICIN CR 0.075% 60 GM TUBE EXT PRN (21:02)
[2024-12-12 07:34] LABS: Anion Gap 5.0 (3-11); Blood Urea Nitrogen 37.0 mg/dl (6-23); Calcium 8.9 mg/dl (8.6-10.3); Carbon Dioxide 42.0 mmol/L (21-32); Chloride 92.0 mmol/L (98-107); Creatinine Clr Calc Pharmacy 48.8 ml/min; Glucose 82.0 mg/dl (70-99(Fasting)); Potassium 4.2 mmol/L (3.5-5.1); Sodium 139.0 mmol/L (136-145)
--- NOTE | 2024-12-12 18:37 | Hospitalist Progress Note ---
Date of Service December 12, 2024 Assessment & Plan (1) Edema of both lower extremities: (2) Diabetes mellitus, type 2: (3) Acute gout: (4) CKD (chronic kidney disease) stage 3, GFR 30-59 ml/min: (5) Diabetic ulcer of left foot associated with diabetes mellitus due to underlying condition, with fat layer exposed: Plan 64-year-old woman with type 2 diabetes and neuropathy complicated by plantar ulcers, HFpEF and RV dysfunction who was admitted for 20 pound weight gain over a few days or week despite doubling oral diuretics, severe left foot pain which is increased and difficulty ambulating, inability to bear weight on the left foot and inability to bear weight on the right because of back/hip/thigh pain Regarding the edema she has component of right heart failure, and nephrosarca and/or bowel wall edema may have been impairing oral diuretic absorption. Edema significantly improved after IV/po diuresis. Changed to oral diuretics 12/09. Brisk response to torsemide, plan on this for discharge rather than bumex The left foot pain has been treated for presumed infection with bactrim then linezolid without clinical improvement. Previous wound cultures with proteus and MRSA. Strongly suspect she had acute gout of left forefoot, now resolved after doses of prednisone. ABX changed to daptomycin because of drug interactions of linezolid, completed a 5-day course on 12/11 her overall pain had significantly worsened after stopping cymbalta and wellbutrin prior to admission- resumed 12/08 when linezolid was stopped and she is continue to improve day by day #Left sided diabetic foot wounds diabetic ulcers of left foot with fat layer exposed -consulted WON - appreciate recommendations. ulcers do not appear infected -has CAM boots - having trouble complying with nonweightbearing status on left foot at home -consulted Dr. Somers, discussed with him 12/11. For chance of salvaging left foot, she needs to be off of it which is not happening at home and tissue injury has progressed. He discussed this with her and she is willing to have SNF rehab stay. Discussed with care coord. May be a difficult placement because of her insurance #Acute on chronic right heart failure, chronic HFpEF with mild underlying -cont metoprolol, empagliflozin, spironolactone -monitor weight, edema, I/O. 137 kg currently, lowest she has been -Cr up to 1.79 with contraction alkalosis - torsemide held. Resume when Cr and CO2 come down, reduce to 60 mg daily -AM BMP #acute gout flare, underlying chronic gout -LE duplex was negative -foot x-ray unremarkable -prednisone 40 mg daily x 5 days through 12/11, decreased to 10 mg daily x 5 days and continue allopurinol -resolved #Right lower abdominal wall / R groin / anterior R thigh pain - suspect peripheral nerve combined with lumbar radicular pain. This seems to be chronic -resumed cymbalta, bupropion trial capsaicin cream -improving #T2DM W/ neuropathy, on gabapentin. At home regimen includes empagliflozin (for heart failure) which is actually on hold at this time. - Most recent A1C 07/2024 @ 5.9% - resumed empagliflozin - SSI with target BSG range 110-150mg/dL, CF 40, carb ratio deferred - BSG ACHS - blood glucoses are at goal last 24 hours reviewed 12/12 #HTN- Losartan, metoprolol - continue #CKD, stage IIIa/b- Follows with nephrology, most recent visit 10/20/2024. Baseline Cr 1.4-1.5; - creatinine up to 1.7 after brisk diuresis, diuretic held #Asthma/Allergies- Cetirizine, hydroxyzine prn, montelukast, Inhalers and nebs - continue. stable #ANDRZEJ- CPAP nightly - continue #Psych- Bupropion and duloxetine resumed, continue buspirone #GERD- Famotidine, pantoprazole, Sucralfate- continue #H/o CVA- April 2017; ASA - continue DVT ppx - bid enox SNF referrals made Admission and Anticipated Discharge Date Admission Date: December 06, 2024 Subjective Doing progressively better R heel remains painful but R forefoot no longer painful or warm R back/thigh pain remains but a lot better than several days ago Edema much improved since admission Physical Exam 2 Physical Exam: Last 24h vitals reviewed GEN: sitting on EOB per habit HEENT: pupils equal, sclerae anicteric, moist MM RESP:nonlabored CV: deferred ABD: ND : no phillips SKIN: warm and dry, no generalized rashes EXT: no thigh or abdominal wall edema, woody edema starts just below the calves and is now mild, left foot is dressed - toes and forefoot no longer red/inflamed or warm. Full ROM without pain NEURO: AOx person, place, and situation. Face symmetric, speech normal, moves 4 ext spontaneously and equally Results & Data Results & Data Vital Signs (Past 12 Hours) Vital Signs Temp Pulse Resp BP BP Pulse Ox O2 Del Method 12/12/24 14:25 36.5 C 66 16 141/85 H 91 Room Air 12/12/24 09:00 62 143/82 H 12/12/24 08:00 36.4 C L 59 L 16 142/80 H 92 Nasal Cannula 12/12/24 07:46 Nasal Cannula O2 Flow Rate 12/12/24 14:25 12/12/24 09:00 12/12/24 08:00 2 12/12/24 07:46 2 Laboratory Results 12/07/24 06:04 12/12/24 05:42 PG Care Time/CCT Total # of Minutes Spent Total Time Spent with Patient: Total time spent is greater than 50% in coordination of care (as documented) at patient's floor/unit and/or counseling patient: Coding Level of Care Code 67356 SUB INP/OBS CARE 2/35MIN Diagnoses Edema of both lower extremities R60.0 Diabetes mellitus, type 2 E11.9 Acute gout due to renal impairment involving left foot M10.372 Gout site: foot Gout etiology: due to renal impairment Laterality: left CKD (chronic kidney disease) stage 3, GFR 30-59 ml/min N18.31 Chronic kidney disease stage 3 subtype: stage 3a (GFR 45-59) Diabetic ulcer of left midfoot associated with diabetes mellitus due to underlying condition, with fat layer exposed E08.621; L97.422 Diabetic foot ulcer location: midfoot (3) Acute gout Gout site: foot Gout etiology: due to renal impairment Laterality: left Qualified Code(s): M10.372 - Gout due to renal impairment, left ankle and foot (4) CKD (chronic kidney disease) stage 3, GFR 30-59 ml/min Chronic kidney disease stage 3 subtype: stage 3a (GFR 45-59) Qualified Code(s): N18.31 - Chronic kidney disease, stage 3a (5) Diabetic ulcer of left foot associated with diabetes mellitus due to underlying condition, with fat layer exposed Diabetic foot ulcer location: midfoot Qualified Code(s): E08.621 - Diabetes mellitus due to underlying condition with foot ulcer; L97.422 - Non-pressure chronic ulcer of left heel and midfoot with fat layer exposed
[2024-12-13 06:43] LABS: Anion Gap 4.0 (3-11); Blood Urea Nitrogen 34.0 mg/dl (6-23); Calcium 9.0 mg/dl (8.6-10.3); Carbon Dioxide 40.0 mmol/L (21-32); Chloride 95.0 mmol/L (98-107); Creatinine Clr Calc Pharmacy 56.4 ml/min; Glucose 82.0 mg/dl (70-99(Fasting)); Potassium 4.3 mmol/L (3.5-5.1); Sodium 139.0 mmol/L (136-145)
--- NOTE | 2024-12-13 12:15 | Hospitalist Progress Note ---
"Date of Service December 13, 2024 Assessment & Plan (1) Edema of both lower extremities: (2) Diabetes mellitus, type 2: (3) Acute gout: (4) CKD (chronic kidney disease) stage 3, GFR 30-59 ml/min: (5) Diabetic ulcer of left foot associated with diabetes mellitus due to underlying condition, with fat layer exposed: Plan 64-year-old woman with type 2 diabetes and neuropathy complicated by plantar ulcers, HFpEF and RV dysfunction who was admitted for 20 pound weight gain over a few days or week despite doubling oral diuretics, severe left foot pain which is increased and difficulty ambulating, inability to bear weight on the left foot and inability to bear weight on the right because of back/hip/thigh pain Regarding the edema she has component of right heart failure, and nephrosarca and/or bowel wall edema may have been impairing oral diuretic absorption. Edema significantly improved after IV/po diuresis. Changed to oral diuretics 12/09. Brisk response to torsemide, plan on this for discharge rather than bumex The left foot pain has been treated for presumed infection with bactrim then linezolid without clinical improvement. Previous wound cultures with proteus and MRSA. Strongly suspect she had acute gout of left forefoot, now resolved after doses of prednisone. ABX changed to daptomycin because of drug interactions of linezolid, completed a 5-day course on 12/11 her overall pain had significantly worsened after stopping cymbalta and wellbutrin prior to admission- resumed 12/08 when linezolid was stopped and she is continue to improve day by day #Left sided diabetic foot wounds | diabetic ulcers of left foot with fat layer exposed -consulted WON - appreciate recommendations. ulcers do not appear infected -has CAM boots - having trouble complying with nonweightbearing status on left foot at home -consulted Dr. Somers, discussed with him 12/11. For chance of salvaging left foot, she needs to be off of it which is not happening at home and tissue injury has progressed. He discussed this with her and she is willing to have SNF rehab stay. Discussed with care coord. May be a difficult placement because of her insurance #Acute on chronic right heart failure, chronic HFpEF with mild underlying -cont metoprolol, empagliflozin, spironolactone -monitor weight, edema, I/O. Weight 139.5 kg currently 12/13 -Continue torsemide 60 mg daily -AM BMP #CKD, stage IIIa/b - Follows with nephrology, most recent visit 10/20/2024. Baseline Cr 1.4-1.5 - Diuretics temporarily held for Cr increased to 1.79, Cr returned to near baseline and weight increased so torsemide now resumed 12/13 #acute gout flare, underlying chronic gout -LE duplex was negative -foot x-ray unremarkable -prednisone 40 mg daily x 5 days through 12/11, decreased to 10 mg daily x 5 days and continue allopurinol -resolved #Right lower abdominal wall / R groin / anterior R thigh pain - suspect peripheral nerve combined with lumbar radicular pain. This seems to be chronic -resumed cymbalta, bupropion trial capsaicin cream -improving #T2DM - W/ neuropathy, on gabapentin. At home regimen includes empagliflozin (for heart failure) which is actually on hold at this time. - Most recent A1C 07/2024 @ 5.9% - resumed empagliflozin - SSI with target BSG range 110-150mg/dL, CF 40, carb ratio deferred - BSG ACHS - blood glucoses are at goal last 24 hours reviewed 12/12 #HTN- Losartan, metoprolol - continue #Asthma/Allergies- Cetirizine, hydroxyzine prn, montelukast, Inhalers and nebs - continue. stable #ANDRZEJ- CPAP nightly - continue #Psych- Bupropion and duloxetine resumed, continue buspirone #GERD- Famotidine, pantoprazole, Sucralfate- continue #H/o CVA- April 2017; ASA - continue DVT ppx - bid enox Dispo: waiting SNF placement Resumed torsemide Admission and Anticipated Discharge Date Admission Date: December 06, 2024 Supervising Physician Co-Signing Physician Notes chart reviewed, case d/w S Maksim FLORES. as above Subjective Patient seen and evaluated at bedside. She reports she felt nauseous earlier this morning during/after a BM. She had Zofran which helped her nausea. She also notes some ongoing right hip pain today, but states this is tolerable. We discussed the result of her BMP today and resumption of her diuretics. No additional complaints or concerns at this time. Physical Exam Physical Exam: General: No acute distress, nondiaphoretic, well-developed, well-nourished. Skin: Warm, dry. No rashes noted. No thigh or abdominal wall edema. Chronic venous stasis changes starts mid-calf to foot bilaterally. Left foot wrapped in dressing clean dry intact. Right LE with DARIN stocking. Minimal peripheral denisse ma in LE bilaterally. Cardiac: Well-perfused. Rate in 50s. Pulm: Normal respiratory effort. 96% on room air. Abdominal: Soft, nontender, nondistended. Neuro: A&O x3. No focal neurological deficits. Results & Data Results & Data Vital Signs (Past 12 Hours) Vital Signs Temp Pulse Resp BP Pulse Ox O2 Del Method 12/13/24 07:27 97.5 F L 52 L 18 142/88 H 96 Room Air Laboratory Results Reviewed BMP PG Care Time/CCT Total # of Minutes Spent Total Time Spent with Patient: Total time spent is greater than 50% in coordination of care (as documented) at patient's floor/unit and/or counseling patient: Coding Level of Care Code 93491 SUB INP/OBS CARE 3/50MIN Diagnoses Edema of both lower extremities R60.0 Diabetes mellitus, type 2 E11.9 Acute gout due to renal impairment involving left foot M10.372 Gout etiology: due to renal impairment Gout site: foot Laterality: left CKD (chronic kidney disease) stage 3, GFR 30-59 ml/min N18.31 Chronic kidney disease stage 3 subtype: stage 3a (GFR 45-59) Diabetic ulcer of left midfoot associated with diabetes mellitus due to underlying condition, with fat layer exposed E08.621; L97.422 Diabetic foot ulcer location: midfoot (3) Acute gout Gout etiology: due to renal impairment Gout site: foot Laterality: left Qualified Code(s): M10.372 - Gout due to renal impairment, left ankle and foot (4) CKD (chronic kidney disease) stage 3, GFR 30-59 ml/min Chronic kidney disease stage 3 subtype: stage 3a (GFR 45-59) Qualified Code(s): N18.31 - Chronic kidney disease, stage 3a (5) Diabetic ulcer of left foot associated with diabetes mellitus due to underlying condition, with fat layer exposed Diabetic foot ulcer location: midfoot Qualified Code(s): E08.621 - Diabetes mellitus due to underlying condition with foot ulcer; L97.422 - Non-pressure chronic ulcer of left heel and midfoot with fat layer exposed"
[2024-12-14 06:36] LABS: Anion Gap 6.0 (3-11); Blood Urea Nitrogen 35.0 mg/dl (6-23); Calcium 8.9 mg/dl (8.6-10.3); Carbon Dioxide 40.0 mmol/L (21-32); Chloride 92.0 mmol/L (98-107); Creatinine Clr Calc Pharmacy 55.3 ml/min; Glucose 87.0 mg/dl (70-99(Fasting)); Potassium 4.2 mmol/L (3.5-5.1); Sodium 138.0 mmol/L (136-145)
--- NOTE | 2024-12-14 08:40 | Podiatry Progress Note ---
Date of Service December 14, 2024 Assessment & Plan (1) Diabetic ulcer of left foot associated with diabetes mellitus due to underlying condition, with fat layer exposed: (2) Diabetic ulcer of right foot: (3) Acute gout: (4) Ambulatory dysfunction: (5) Diabetic foot infection: (6) Morbid obesity: Plan Patient awaiting prison facility placement. Left foot ulcerations have decreased in dimension since last seen with healthier wound beds and no signs of local soft tissue infection at this time. - Order placed for left lower extremity arterial duplex ultrasound. With nonhealing ulcerations of the left foot despite standard of care wound care would be prudent to reevaluate arterial supply to the left lower extremity. Most recent arterial imaging of the left lower extremity that I am able to identify in chart is a CTA of the left lower extremity from 08/15/2002 which at that time showed grossly patent vessels in the left lower extremity. - Continue modified cam walker to bilateral lower extremity for short distance and transfer with the assistance of a walker. Patient encouraged to minimize weightbearing whenever possible. - Continue once daily dressing change with Aquacel Ag and a dry sterile dressing. - Elevate feet to help reduce fluid accumulation and promote healing - Protect heels to prevent breakdown Surgical Excisional Debridement: Indication:Removal of necrotic tissue to promote healing Pre-op diagnosis: diabetic ulcer subfifth metatarsal base left, diabetic ulcer subfirst metatarsal head left Post-op diagnosis: Same Procedure: Surgical excisional debridement left subfifth metatarsal base and subfirst metatarsal head left ulceration Surgeon: Jerrell Somers DPM Anesthesia: None Bleeding:Minimal Disposition: Tolerated well Procedure: Informed consent obtained, Time Out taken. Patient understands and agrees to procedure. Excisional debridement was carried out of bilateral subfifth metatarsal base ulceration and left subfirst metatarsal head ulceration consisting of hyperkeratotic, slough, fibrotic and subcutaneous tissue was carried out utilizing a curette and 15 blade. Anesthesia-none. Patient tolerated the procedure well. Bleeding-minimal. Controlled with-direct pressure. Post-debridement measurements: left foot subfifth metatarsal base: 1.2 x 1.2 x 0.4 cm. Left foot subfirst met head: 1.2 x 1.0 x 0.3 cm. A total of 2.64 cm2 were debrided. Admission and Anticipated Discharge Date Admission Date: December 06, 2024 Subjective Patient seen resting comfortably in hospital bed. Awaiting prison facility placement. Denies nausea vomiting fever chills. Reports continued reduction in pain to the left foot. Reports minimal weightbearing from bed to bedside commode. Dressings continue once daily to the left foot. Review of Systems Review of Systems: Patient resting comfortably in hospital bed. Denies nausea vomiting fever chills. Reports decreased pain in the left foot since the time of admission. Physical Exam Physical Exam: Const: Appears well developed and well nourished. Obese. No signs of acute distress present. CV: Extremities: No cyanosis. Bilateral lower extremity edema left greater than right. Capillary refill time is less than 2 seconds all digits of the bilateral foot. Posterior tibial and dorsalis pedis pulses are lightly palpable bilateral. Skin: Thin atrophic skin with loss of hair growth bilateral lower extremity below the knee with stasis changes to the skin bilateral. Neuro: Loss of protective sensation to toes bilateral. Diminished protective sensation to bilateral plantar foot. Notable pain to palpation areas of ulceration. Psych: Mood/Affect: Mood is normal. Affect is normal. Cognition: Orientation is intact to person, place and time. Focused lower extremity musculoskeletal exam: Abnormal gait pattern with shuffling of feet and heavy heel strike. Uses a walker for ambulation. Leg: No pain with compression of the calf muscle. Decreased edema to the left lower extremity over the past week. Motor strength is intact. Range of motion pain-free and unlimited. Posterior lateral right ankle is evaluated with no signs of external injury. There is a firm well-circumscribed 1.6 cm diameter subcutaneous soft tissue mass/nodule no signs of local soft tissue irritation or infection. On palpation there is generalized tenderness which is noted bilaterally. Feet: Bilateral flatfoot deformity. Right foot: Preulcerative lesion subfifth metatarsal base with minimal hyperkeratotic buildup and blood tingeing. There is no breakdown in the skin or signs of local soft tissue infection. No fluctuance at this time. Left foot: Well-healed third digit amputation. Diabetic ulceration subfifth metatarsal base left foot: Encroaching epithelium noted circumferentially, hyperkeratotic border, slough overlying the entirety of the wound bed. Postdebridement wound bed is healthy granular tissue. Decreased wound dimensions since last seen. Scant serous drainage to Aquacel dressing placed yesterday. Diabetic ulcer subfirst metatarsal head left foot: Encroaching epithelium circumferentially with thin hyperkeratotic border. This wound bed is also covered entirely with slough and fibrotic tissue. Following debridement wound bed is healthy granular tissue with no exposed deep soft tissue structures at this time. Wound does not probe or track in any direction. Scant sanguinous drainage to Aquacel placed yesterday. No signs of local soft tissue infection. . New ulceration: Unstageable pressure injury left plantar heel. No open wound at this time. no periwound erythema or edema. No fluctuance to the area to suggest underlying abscess formation. Results & Data Results & Data Vital Signs (Past 12 Hours) Vital Signs Temp Pulse Resp BP Pulse Ox O2 Del Method O2 Flow Rate 12/14/24 08:30 70 12/14/24 07:41 36.3 C L 59 L 18 154/90 H 99 Nasal Cannula 2.0 12/13/24 21:40 Room Air, Nasal Cannula 2 Coding Level of Care Code 22959 SUB INP/OBS CARE 2/35MIN Diagnoses Diabetic ulcer of left midfoot associated with diabetes mellitus due to underlying condition, with fat layer exposed E08.621; L97.422 Diabetic foot ulcer location: midfoot Diabetic ulcer of right midfoot associated with type 2 diabetes mellitus, with fat layer exposed E11.621; L97.412 Diabetes mellitus type: type 2 Diabetic foot ulcer location: midfoot Non-pressure ulcer stage: with fat layer exposed Acute gout due to renal impairment involving left foot M10.372 Gout etiology: due to renal impairment Gout site: foot Laterality: left Ambulatory dysfunction R26.2 Diabetic foot infection E11.628; L08.9 Morbid obesity E66.01 CPT Codes Debride Skin/Tissue - 20315 ([id number]) (1) Diabetic ulcer of left foot associated with diabetes mellitus due to underlying condition, with fat layer exposed Diabetic foot ulcer location: midfoot Qualified Code(s): E08.621 - Diabetes mellitus due to underlying condition with foot ulcer; L97.422 - Non-pressure chronic ulcer of left heel and midfoot with fat layer exposed (2) Diabetic ulcer of right foot Diabetes mellitus type: type 2 Diabetic foot ulcer location: midfoot Non- pressure ulcer stage: with fat layer exposed Qualified Code(s): E11.621 - Type 2 diabetes mellitus with foot ulcer; L97.412 - Non-pressure chronic ulcer of right heel and midfoot with fat layer exposed (3) Acute gout Gout etiology: due to renal impairment Gout site: foot Laterality: left Qualified Code(s): M10.372 - Gout due to renal impairment, left ankle and foot
--- NOTE | 2024-12-14 12:00 | Hospitalist Progress Note ---
Date of Service December 14, 2024 Assessment & Plan (1) Edema of both lower extremities: (2) Diabetes mellitus, type 2: (3) Acute gout: (4) CKD (chronic kidney disease) stage 3, GFR 30-59 ml/min: (5) Diabetic ulcer of left foot associated with diabetes mellitus due to underlying condition, with fat layer exposed: Plan 64-year-old woman with type 2 diabetes and neuropathy complicated by plantar ulcers, HFpEF and RV dysfunction who was admitted for 20 pound weight gain over a few days or week despite doubling oral diuretics, severe left foot pain which is increased and difficulty ambulating, inability to bear weight on the left foot and inability to bear weight on the right because of back/hip/thigh pain Regarding the edema she has component of right heart failure, and nephrosarca and/or bowel wall edema may have been impairing oral diuretic absorption. Edema significantly improved after IV/po diuresis. Changed to oral diuretics 12/09. Brisk response to torsemide, plan on this for discharge rather than bumex The left foot pain has been treated for presumed infection with bactrim then linezolid without clinical improvement. Previous wound cultures with proteus and MRSA. Strongly suspect she had acute gout of left forefoot, now resolved after doses of prednisone. ABX changed to daptomycin because of drug interactions of linezolid, completed a 5-day course on 12/11 her overall pain had significantly worsened after stopping cymbalta and wellbutrin prior to admission- resumed 12/08 when linezolid was stopped and she is continue to improve day by day #Left sided diabetic foot wounds | diabetic ulcers of left foot with fat layer exposed -consulted WON - appreciate recommendations. ulcers do not appear infected -has CAM boots - having trouble complying with nonweightbearing status on left foot at home -consulted Dr. Somers, discussed with him 12/11. For chance of salvaging left foot, she needs to be off of it which is not happening at home and tissue injury has progressed. He discussed this with her and she is willing to have SNF rehab stay. Discussed with care coord. May be a difficult placement because of her insurance. Dr Somers re-evaluated 12/14 and debrided necrotic areas. He ordered a left lower extremity arterial duplex ultrasound #Acute on chronic right heart failure, chronic HFpEF with mild underlying -cont metoprolol, empagliflozin, spironolactone -monitor weight, edema, I/O. Weight 139.5 kg currently 12/13 -Continue torsemide 60 mg daily -AM BMP #CKD, stage IIIa/b - Follows with nephrology, most recent visit 10/20/2024. Baseline Cr 1.4-1.5 - Diuretics temporarily held for Cr increased to 1.79, Cr returned to near baseline and weight increased so torsemide resumed 12/13 - renal function stable 12/14 #acute gout flare, underlying chronic gout -LE duplex was negative -foot x-ray unremarkable -prednisone 40 mg daily x 5 days through 12/11, decreased to 10 mg daily x 5 days and continue allopurinol -resolved #Right lower abdominal wall / R groin / anterior R thigh pain - suspect peripheral nerve combined with lumbar radicular pain. This seems to be chronic -resumed cymbalta, bupropion trial capsaicin cream -improving #T2DM - W/ neuropathy, on gabapentin. At home regimen includes empagliflozin (for heart failure) which is actually on hold at this time. - Most recent A1C 07/2024 @ 5.9% - resumed empagliflozin - SSI with target BSG range 110-150mg/dL, CF 40, carb ratio deferred - BSG ACHS #HTN- Losartan, metoprolol - continue #Asthma/Allergies- Cetirizine, hydroxyzine prn, montelukast, Inhalers and nebs - continue. stable #ANDRZEJ- CPAP nightly - continue #Psych- Bupropion and duloxetine resumed, continue buspirone #GERD- Famotidine, pantoprazole, Sucralfate- continue #H/o CVA- April 2017; ASA - continue DVT ppx - bid enox Dispo: [id number] for SNF placement completed, denial upheld. Updated case management on decision. Patient reports she plans to return home tomorrow, 12/15. Admission and Anticipated Discharge Date Admission Date: December 06, 2024 Supervising Physician Co-Signing Physician Notes chart reviewed, case d/w Ana Rosa Schaeffer PA-C. as above Subjective Patient seen and evaluated at bedside. She was seen by Dr. Somers from podiatry earlier and had her left foot debrided and redressed. She denies any exacerbated pain from this. She does have ongoing right hip discomfort. She states this is chronic/intermittent. She states the discomfort is tolerable and "will settle down in the next couple days." Still awaiting rehab placement. She asked for fresh ice water which I got for her prior to leaving. No additional complaints or concerns at this time. Physical Exam Physical Exam: General: No acute distress, nondiaphoretic, well-developed, well-nourished. Skin: Warm, dry. No rashes noted. No thigh or abdominal wall edema. Chronic venous stasis changes starts mid-calf to foot bilaterally. Left foot wrapped in dressing clean dry intact. Right LE with DARIN stocking. Minimal peripheral edema in LE bilaterally. Cardiac: Well-perfused. Rate in 70s. Pulm: Normal respiratory effort. 99% on room air. Abdominal: Soft, nontender, nondistended. Neuro: A&O x3. No focal neurological deficits. Results & Data Results & Data Vital Signs (Past 12 Hours) Vital Signs Temp Pulse Resp BP Pulse Ox O2 Del Method O2 Flow Rate 12/14/24 09:06 Room Air, Nasal Cannula 12/14/24 08:30 70 12/14/24 07:41 97.3 F L 59 L 18 154/90 H 99 Nasal Cannula 2.0 Laboratory Results Reviewed BMP PG Care Time/CCT Total # of Minutes Spent Total Time Spent with Patient: Total time spent is greater than 50% in coordination of care (as documented) at patient's floor/unit and/or counseling patient: Coding Level of Care Code 88946 SUB INP/OBS CARE 2/35MIN Diagnoses Edema of both lower extremities R60.0 Diabetes mellitus, type 2 E11.9 Acute gout due to renal impairment involving left foot M10.372 Gout etiology: due to renal impairment Gout site: foot Laterality: left CKD (chronic kidney disease) stage 3, GFR 30-59 ml/min N18.31 Chronic kidney disease stage 3 subtype: stage 3a (GFR 45-59) Diabetic ulcer of left midfoot associated with diabetes mellitus due to underlying condition, with fat layer exposed E08.621; L97.422 Diabetic foot ulcer location: midfoot (3) Acute gout Gout etiology: due to renal impairment Gout site: foot Laterality: left Qualified Code(s): M10.372 - Gout due to renal impairment, left ankle and foot (4) CKD (chronic kidney disease) stage 3, GFR 30-59 ml/min Chronic kidney disease stage 3 subtype: stage 3a (GFR 45-59) Qualified Code(s): N18.31 - Chronic kidney disease, stage 3a (5) Diabetic ulcer of left foot associated with diabetes mellitus due to underlying condition, with fat layer exposed Diabetic foot ulcer location: midfoot Qualified Code(s): E08.621 - Diabetes mellitus due to underlying condition with foot ulcer; L97.422 - Non-pressure chronic ulcer of left heel and midfoot with fat layer exposed
--- NOTE | 2024-12-14 14:25 | Ultrasound Report ---
ULTRASOUND LEFT LOWER EXTREMITY ARTERIAL; ANKLE-BRACHIAL INDICES CLINICAL HISTORY: Nonhealing ulcer. COMPARISON STUDY: CT angiogram of the left lower extremity dated 08/15/2022. TECHNIQUE: Real-time grayscale color Doppler and spectral Doppler sonography of the arteries of the l eft lower extremity is performed from the inguinal crease to the foot. Ankle brachial indices were as sessed. FINDINGS: Ankle brachial indices: Right brachial pressure measures 142 and left brachial pressure measures 154. Pressures in the right posterior tibial artery measure 142 for an MIKI of 0.92 and pressures in the r ight dorsalis pedis measure 144 for an MIKI of 0.94. The pressure in the left posterior tibial artery measure 142 for an MIKI of 0.92, and pressures in the left dorsalis pedis measure 138 for an MIKI of 0. 90. Right lower extremity: There are triphasic arterial waveforms in the right common femoral artery with velocities measuring up to 138 cm/s. The profunda femoris artery is patent with velocities measuring up to 85 cm per second. Triphasic waveforms are seen throughout the superficial, femoral and poplite al arteries. Velocities in the superficial femoral artery measure up to 132 cm per second and velocit ies in the popliteal artery measure up to 75 cm/s. There is two-vessel runoff to the foot. The perone al artery was not visualized. Triphasic arterial waveforms are maintained within the anterior and pos terior tibial arteries. Velocities within the anterior and posterior tibial arteries measure up to 13 9 cm/s. The dorsalis pedis artery is patent with velocities measuring up to 49 cm/s. IMPRESSION: 1. Nonvisualization of the peroneal artery. 2. The remaining arteries of the left lower extremity are patent with no evidence of high-grade steno sis. 3. Ankle brachial indices as above. Dictated: 12/14/2024 11:51 AM Transcribed: 12/14/2024 2:12 PM Juanito [id number] [email or web address] Electronically signed by: Will Hussein M.D. 12/14/2024 2:24 PM
[2024-12-15 07:17] LABS: Anion Gap 6.0 (3-11); Blood Urea Nitrogen 35.0 mg/dl (6-23); Calcium 9.1 mg/dl (8.6-10.3); Carbon Dioxide 40.0 mmol/L (21-32); Chloride 91.0 mmol/L (98-107); Creatinine Clr Calc Pharmacy 50.2 ml/min; Glucose 92.0 mg/dl (70-99(Fasting)); Potassium 4.0 mmol/L (3.5-5.1); Sodium 137.0 mmol/L (136-145)
--- NOTE | 2024-12-15 09:40 | Hospitalist Progress Note ---
"Date of Service December 15, 2024 Assessment & Plan (1) Edema of both lower extremities: (2) Diabetes mellitus, type 2: (3) Acute gout: (4) CKD (chronic kidney disease) stage 3, GFR 30-59 ml/min: (5) Diabetic ulcer of left foot associated with diabetes mellitus due to underlying condition, with fat layer exposed: Plan 64-year-old woman with type 2 diabetes and neuropathy complicated by plantar ulcers, HFpEF and RV dysfunction who was admitted for 20 pound weight gain over a few days or week despite doubling oral diuretics, severe left foot pain which is increased and difficulty ambulating, inability to bear weight on the left foot and inability to bear weight on the right because of back/hip/thigh pain Regarding the edema she has component of right heart failure, and nephrosarca and/or bowel wall edema may have been impairing oral diuretic absorption. Edema significantly improved after IV/po diuresis. Changed to oral diuretics 12/09. Brisk response to torsemide, plan on this for discharge rather than bumex The left foot pain has been treated for presumed infection with bactrim then linezolid without clinical improvement. Previous wound cultures with proteus and MRSA. Strongly suspect she had acute gout of left forefoot, now resolved after doses of prednisone. ABX changed to daptomycin because of drug interactions of linezolid, completed a 5-day course on 12/11 her overall pain had significantly worsened after stopping cymbalta and wellbutrin prior to admission- resumed 12/08 when linezolid was stopped and she is continue to improve day by day #Left sided diabetic foot wounds | diabetic ulcers of left foot with fat layer exposed -consulted WON - appreciate recommendations. ulcers do not appear infected -has CAM boots - having trouble complying with nonweightbearing status on left foot at home -consulted Dr. Somers, discussed with him 12/11. For chance of salvaging left foot, she needs to be off of it which is not happening at home and tissue injury has progressed. He discussed this with her and she is willing to have SNF rehab stay. Dr Somers re-evaluated 12/14 and debrided necrotic areas. He ordered a left lower extremity arterial duplex ultrasound -unfortunately P2P for SNF denied, patient completing appeal process #Acute on chronic right heart failure, chronic HFpEF with mild underlying -cont metoprolol, empagliflozin, spironolactone -monitor weight, edema, I/O. Weight 139.5 kg currently 12/13 -Hold torsemide 60 mg daily for 12/16 pending AM labs -AM BMP #CKD, stage IIIa/b - Follows with nephrology, most recent visit 10/20/2024. Baseline Cr 1.4-1.5 - Diuretics temporarily held for Cr increased to 1.79, Cr returned to near baseline and weight increased so torsemide resumed 12/13 - Torsemide held for 12/16 pending renal function on AM labs. Cr this morning again elevated at 1.73 #acute gout flare, underlying chronic gout -LE duplex was negative. foot x-ray unremarkable -prednisone 40 mg daily x 5 days through 12/11, decreased to 10 mg daily x 5 days and continue allopurinol -resolved #Right lower abdominal wall / R groin / anterior R thigh pain - suspect periphe ral nerve combined with lumbar radicular pain. This seems to be chronic -resumed cymbalta, bupropion trial capsaicin cream -improving #T2DM - W/ neuropathy, on gabapentin. At home regimen includes empagliflozin (for heart failure) which is actually on hold at this time. - Most recent A1C 07/2024 @ 5.9% - resumed empagliflozin - SSI with target BSG range 110-150mg/dL, CF 40, carb ratio deferred - BSG ACHS #HTN- Losartan, metoprolol - continue #Asthma/Allergies- Cetirizine, hydroxyzine prn, montelukast, Inhalers and nebs - continue. stable #ANDRZEJ- CPAP nightly - continue #Psych- Bupropion and duloxetine resumed, continue buspirone #GERD- Famotidine, pantoprazole, Sucralfate- continue #H/o CVA- April 2017; ASA - continue DVT ppx - bid enox Dispo: [id number] for SNF placement completed, denial upheld. Thoroughly discussed case with Dr. Somers, podiatry. Her only hope for salvaging her left lower extremity is continued strict nonweightbearing status. She is understandably unable to be fully compliant with this if she were to return home independently. Home health is not an option for the patient given her living situation. If she were to be discharged home independently in her current condition, it is almost inevitable that she would require amputationclearly a horrific life altering surgical intervention that should be avoided at all costs possible. Unfortunately, since she does not have a safe disposition at this time, she will remain in the hospital. Obviously this is not an ideal option either given her risk of developing nosocomial infections during a prolonged hospital stay. All of this was discussed on her peer to peer call and unfortunately the physician upheld the denial. As her insurance is aware of the almost certain complications and life altering subsequent surgical interventions that will proceed if she were to be discharge home, I would place the liability of these complications on her insurance company, [employer]. I have encouraged the patient to complete the appeal form for this denial. Discussed case with Dr. Somers Discussed dispo with case management [facility] Admission and Anticipated Discharge Date Admission Date: December 06, 2024 Supervising Physician Co-Signing Physician Notes chart reviewed, case d/w S Maksim FLOERS. as above Subjective Patient seen and evaluated at bedside. She reports feeling disappointed in the result of her peer to peer and she is fearful that she will lose her left foot. Emotional support provided. We discussed Dr. Somers's concerns and the current plan. All questions/concerns addressed. Case management plans to see her this afternoon to help her navigate the appeal process. She denies any acute complaints or concerns at this time. Physical Exam Physical Exam: General: No acute distress, nondiaphoretic, well-developed, well-nourished. Skin: Warm, dry. No rashes noted. No thigh or abdominal wall edema. Chronic venous stasis changes starts mid-calf to foot bilaterally. Left foot wrapped in dressing clean dry intact. Right LE with DARIN stocking. Minimal peripheral denisse ma in LE bilaterally. Cardiac: Well-perfused. Rate in 60s. Pulm: Normal respiratory effort. 100% on room air. Abdominal: Soft, nontender, nondistended. Neuro: A&O x3. No focal neurological deficits. Results & Data Results & Data Vital Signs (Past 12 Hours) Vital Signs Temp Pulse Pulse Resp BP Pulse Ox O2 Del Method 12/15/24 07:28 99.0 F 63 63 18 173/110 H 100 Nasal Cannula 12/14/24 22:01 Room Air, Nasal Cannula O2 Flow Rate 12/15/24 07:28 12/14/24 22:01 2 Laboratory Results Reviewed [facility] PG Care Time/CCT Total # of Minutes Spent Total Time Spent with Patient: Total time spent is greater than 50% in coordination of care (as documented) at patient's floor/unit and/or counseling patient: Coding Level of Care Code 79375 SUB INP/OBS CARE 3/50MIN Diagnoses Edema of both lower extremities R60.0 Diabetes mellitus, type 2 E11.9 Acute gout due to renal impairment involving left foot M10.372 Gout etiology: due to renal impairment Gout site: foot Laterality: left CKD (chronic kidney disease) stage 3, GFR 30-59 ml/min N18.31 Chronic kidney disease stage 3 subtype: stage 3a (GFR 45-59) Diabetic ulcer of left midfoot associated with diabetes mellitus due to underlying condition, with fat layer exposed E08.621; L97.422 Diabetic foot ulcer location: midfoot (3) Acute gout Gout etiology: due to renal impairment Gout site: foot Laterality: left Qualified Code(s): M10.372 - Gout due to renal impairment, left ankle and foot (4) CKD (chronic kidney disease) stage 3, GFR 30-59 ml/min Chronic kidney disease stage 3 subtype: stage 3a (GFR 45-59) Qualified Code(s): N18.31 - Chronic kidney disease, stage 3a (5) Diabetic ulcer of left foot associated with diabetes mellitus due to underlying condition, with fat layer exposed Diabetic foot ulcer location: midfoot Qualified Code(s): E08.621 - Diabetes mellitus due to underlying condition with foot ulcer; L97.422 - Non-pressure chronic ulcer of left heel and midfoot with fat layer exposed"
[2024-12-16 08:18] LABS: Anion Gap 4.0 (3-11); Blood Urea Nitrogen 35.0 mg/dl (6-23); Calcium 9.1 mg/dl (8.6-10.3); Carbon Dioxide 40.0 mmol/L (21-32); Chloride 93.0 mmol/L (98-107); Creatinine Clr Calc Pharmacy 49.6 ml/min; Glucose 81.0 mg/dl (70-99(Fasting)); Potassium 4.1 mmol/L (3.5-5.1); Sodium 137.0 mmol/L (136-145)
--- NOTE | 2024-12-16 12:49 | Hospitalist Progress Note ---
"Date of Service December 16, 2024 Assessment & Plan (1) Edema of both lower extremities: (2) Diabetes mellitus, type 2: (3) Acute gout: (4) CKD (chronic kidney disease) stage 3, GFR 30-59 ml/min: (5) Diabetic ulcer of left foot associated with diabetes mellitus due to underlying condition, with fat layer exposed: Plan 64-year-old woman with type 2 diabetes and neuropathy complicated by plantar ulcers, HFpEF and RV dysfunction who was admitted for 20 pound weight gain over a few days or week despite doubling oral diuretics, severe left foot pain which is increased and difficulty ambulating, inability to bear weight on the left foot and inability to bear weight on the right because of back/hip/thigh pain. Regarding the edema she has component of right heart failure, and nephrosarca and/or bowel wall edema may have been impairing oral diuretic absorption. Edema significantly improved after IV/po diuresis. Changed to oral diuretics 12/09. Brisk response to torsemide, plan on this for discharge rather than bumex. The left foot pain has been treated for presumed infection with Bactrim then linezolid without clinical improvement. Previous wound cultures with proteus and MRSA. Strongly suspect she had acute gout of left forefoot, now resolved after doses of prednisone. ABX changed to daptomycin because of drug interactions of linezolid, completed a 5-day course on 12/11. #Left sided diabetic foot wounds | diabetic ulcers of left foot with fat layer exposed -has CAM boots - having trouble complying with nonweightbearing status on left foot at home -consulted Dr. Somers, discussed with him 12/11. For chance of salvaging left foot, she needs to be off of it which is not happening at home and tissue injury has progressed. He discussed this with her and she is willing to have SNF rehab stay. Dr Somers re-evaluated 12/14 and debrided necrotic areas. He ordered a left lower extremity arterial duplex ultrasound -unfortunately P2P for SNF denied, patient completing appeal process #Acute on chronic right heart failure, chronic HFpEF with mild underlying -cont metoprolol, empagliflozin, spironolactone -monitor weight, edema, I/O. Weight 139.5 kg currently 12/13 -Hold torsemide 60 mg daily. Could consider every other day dosing to balance volume status/renal function -AM BMP #CKD, stage IIIa/b - Follows with nephrology, most recent visit 10/20/2024. Baseline Cr 1.4-1.5 - Diuretics temporarily held for Cr increased to 1.79, Cr returned to near baseline and weight increased so torsemide resumed 12/13 - Torsemide held given rise in creatinine 12/16. Could consider every other day dosing to balance volume status/renal function - AM BMP #Right lower abdominal wall / R groin / anterior R thigh pain - suspect peripheral nerve combined with lumbar radicular pain. This seems to be chronic -resumed cymbalta, bupropion trial capsaicin cream -improving #acute gout flare, underlying chronic gout -LE duplex was negative. foot x-ray unremarkable. prednisone 40 mg daily x 5 days through 12/11, decreased to 10 mg daily x 5 days and continue allopurinol. now resolved #T2DM - W/ neuropathy, on gabapentin. At home regimen includes empagliflozin (for heart failure) - Most recent A1C 07/2024 @ 5.9% - resumed empagliflozin - SSI with target BSG range 110-150mg/dL, CF 40, carb ratio deferred - BSG ACHS #HTN- Losartan, metoprolol - continue #Asthma/Allergies- Cetirizine, hydroxyzine prn, montelukast, Inhalers and nebs - continue. stable #ANDRZEJ- CPAP nightly - continue #Psych- Bupropion and duloxetine resumed, continue buspirone #GERD- Famotidine, pantoprazole, Sucralfate- continue #H/o CVA- April 2017; ASA - continue DVT ppx - bid enox Dispo: [id number] for SNF placement completed, denial upheld. Thoroughly discussed case with Dr. Somers, podiatry. Her only hope for salvaging her left lower extremity is continued strict nonweightbearing status. She is understandably unable to be fully compliant with this if she were to return home independently. Home health is not an option for the patient given her living situation. If she were to be discharged home independently in her current condition, it is almost inevitable that she would require amputationclearly a horrific life altering surgical intervention that should be avoided at all costs possible. Unfortunately, since she does not have a safe disposition at this time, she will remain in the hospital. Obviously this is not an ideal option either given her risk of developing nosocomial infections during a prolonged hospital stay. All of this was discussed on her peer to peer call and unfortunately the physician upheld the denial. As her insurance is aware of the almost certain complications and life altering subsequent surgical interventions that will proceed if she were to be discharge home, I would place the liability of these complications on her insurance company, [employer]. I have encouraged the patient to complete the appeal form for this denial. Admission and Anticipated Discharge Date Admission Date: December 06, 2024 Supervising Physician Co-Signing Physician Notes chart reviewed, case d/w S Maksim FLORES. as above Subjective Patient seen and evaluated at bedside. She reports feeling well overall today. She does note feeling a bit constipated, last BM 2 days ago. She requests milk of magnesia, stating this works well for her previously. She denies any shortness of breath. Her hip pain has improved. She notes that her legs are not swollen. No additional complaints or concerns at this time. Physical Exam Physical Exam: General: No acute distress, nondiaphoretic, well-developed, well-nourished. Skin: Warm, dry. No rashes noted. No thigh or abdominal wall edema. Chronic venous stasis changes starts mid-calf to foot bilaterally. Left foot wrapped in dressing clean dry intact. Right LE with DARIN stocking. No peripheral edema in bilateral lower extremities. Cardiac: Well-perfused. Rate in 60s. Pulm: Normal respiratory effort. 97% on room air. Abdominal: Soft, nontender, nondistended. Bowel sounds present. Neuro: A&O x3. No focal neurological deficits. Results & Data Results & Data Vital Signs (Past 12 Hours) Vital Signs Temp Pulse Resp BP Pulse Ox O2 Del Method 12/16/24 07:21 97.9 F 58 L 16 127/85 97 Room Air 12/16/24 00:57 Room Air Laboratory Results Reviewed BMP PG Care Time/CCT Total # of Minutes Spent Total Time Spent with Patient: Total time spent is greater than 50% in coordination of care (as documented) at patient's floor/unit and/or counseling patient: Coding Level of Care Code 42889 SUB INP/OBS CARE 2/35MIN Diagnoses Edema of both lower extremities R60.0 Diabetes mellitus, type 2 E11.9 Acute gout due to renal impairment involving left foot M10.372 Gout etiology: due to renal impairment Gout site: foot Laterality: left CKD (chronic kidney disease) stage 3, GFR 30-59 ml/min N18.31 Chronic kidney disease stage 3 subtype: stage 3a (GFR 45-59) Diabetic ulcer of left midfoot associated with diabetes mellitus due to underlying condition, with fat layer exposed E08.621; L97.422 Diabetic foot ulcer location: midfoot (3) Acute gout Gout etiology: due to renal impairment Gout site: foot Laterality: left Qualified Code(s): M10.372 - Gout due to renal impairment, left ankle and foot (4) CKD (chronic kidney disease) stage 3, GFR 30-59 ml/min Chronic kidney disease stage 3 subtype: stage 3a (GFR 45-59) Qualified Code(s): N18.31 - Chronic kidney disease, stage 3a (5) Diabetic ulcer of left foot associated with diabetes mellitus due to underlying condition, with fat layer exposed Diabetic foot ulcer location: midfoot Qualified Code(s): E08.621 - Diabetes mellitus due to underlying condition with foot ulcer; L97.422 - Non-pressure chronic ulcer of left heel and midfoot with fat layer exposed"
[2024-12-16] MEDS: MAGNESIUM HYDROXIDE SUSP 30 ML UDC PO PRN (13:21)
[2024-12-16] MEDS: MELATONIN 3 MG TAB PO PRN (22:03)
[2024-12-16] MEDS ORDERED: LIDOCAINE 5% 1 PATCH TD PRN (22:34)
[2024-12-17 06:23] LABS: Anion Gap 7.0 (3-11); Blood Urea Nitrogen 31.0 mg/dl (6-23); Calcium 9.0 mg/dl (8.6-10.3); Carbon Dioxide 35.0 mmol/L (21-32); Chloride 96.0 mmol/L (98-107); Creatinine Clr Calc Pharmacy 66.3 ml/min; Glucose 84.0 mg/dl (70-99(Fasting)); Potassium 4.0 mmol/L (3.5-5.1); Sodium 138.0 mmol/L (136-145)
--- NOTE | 2024-12-17 08:26 | Hospitalist Progress Note ---
"Date of Service December 17, 2024 Assessment & Plan (1) Edema of both lower extremities: (2) Diabetes mellitus, type 2: (3) Acute gout: (4) CKD (chronic kidney disease) stage 3, GFR 30-59 ml/min: (5) Diabetic ulcer of left foot associated with diabetes mellitus due to underlying condition, with fat layer exposed: Plan 64-year-old woman with type 2 diabetes and neuropathy complicated by plantar ulcers, HFpEF and RV dysfunction who was admitted for 20 pound weight gain over a few days or week despite doubling oral diuretics, severe left foot pain which is increased and difficulty ambulating, inability to bear weight on the left foot and inability to bear weight on the right because of back/hip/thigh pain. Regarding the edema she has component of right heart failure, and nephrosarca and/or bowel wall edema may have been impairing oral diuretic absorption. Edema significantly improved after IV/po diuresis. Changed to oral diuretics 12/09. Brisk response to torsemide, plan on this for discharge rather than bumex. The left foot pain has been treated for presumed infection with Bactrim then linezolid without clinical improvement. Previous wound cultures with proteus and MRSA. Strongly suspect she had acute gout of left forefoot, now resolved after doses of prednisone. ABX changed to daptomycin because of drug interactions of linezolid, completed a 5-day course on 12/11. #Left sided diabetic foot wounds | diabetic ulcers of left foot with fat layer exposed -has CAM boots - having trouble complying with nonweightbearing status on left foot at home -consulted Dr. Somers, discussed with him 12/11. For chance of salvaging left foot, she needs to be off of it which is not happening at home and tissue injury has progressed. He discussed this with her and she is willing to have SNF rehab stay. Dr Somers re-evaluated 12/14 and debrided necrotic areas. He ordered a left lower extremity arterial duplex ultrasound that showed nonvisualization of the peroneal artery, the remaining arteries of the left lower extremity are patent with no evidence of high-grade stenosis #Acute on chronic right heart failure, chronic HFpEF with mild underlying -cont metoprolol, empagliflozin, spironolactone -monitor weight, edema, I/O. Weight 136.6 kg 12/17 -Torsemide 60 mg now resumed, adjusted to every other day dosing #CKD, stage IIIa/b - Follows with nephrology, most recent visit 10/20/2024. Baseline Cr 1.4-1.5 - Difficult balance between volume status and renal function with diuretic. Will trial same torsemide dose but at every other day dosing and monitor respon se 12/17 - Renal function above baseline with Cr 1.31, torsemide resumed - adjusted to torsemide 60 mg QOD - monitor response, adjust as needed - AM BMP #Right lower abdominal wall / R groin / anterior R thigh pain - suspect peripheral nerve combined with lumbar radicular pain. This seems to be chronic -resumed cymbalta, bupropion, capsaicin cream prn. Improving #acute gout flare, underlying chronic gout -LE duplex was negative. foot x-ray unremarkable. prednisone 40 mg daily x 5 days through 12/11, decreased to 10 mg daily x 5 days and continue allopurinol. now resolved #T2DM - W/ neuropathy, on gabapentin. At home regimen includes empagliflozin (for heart failure) - Most recent A1C 07/2024 @ 5.9% - resumed empagliflozin - SSI with target BSG range 110-150mg/dL, CF 40, carb ratio deferred #HTN- Losartan, metoprolol - continue #Asthma/Allergies- Cetirizine, hydroxyzine prn, montelukast, Inhalers and nebs - continue. stable #ANDRZEJ- CPAP nightly - continue #Psych- Bupropion and duloxetine resumed, continue buspirone #GERD- Famotidine, pantoprazole, Sucralfate- continue #H/o CVA- April 2017; ASA - continue DVT ppx - bid enox Dispo: [id number] for SNF placement completed, denial upheld. Thoroughly discussed case with Dr. Somers, podiatry. Her only hope for salvaging her left lower extremity is continued strict nonweightbearing status. She is understandably unable to be fully compliant with this if she were to return home independently. Home health is not an option for the patient given her living situation. If she were to be discharged home independently in her current condition, it is almost inevitable that she would require amputationclearly a horrific life altering surgical intervention that should be avoided at all costs possible. Unfortunately, since she does not have a safe disposition at this time, she will remain in the hospital. Obviously this is not an ideal option either given her risk of developing nosocomial infections during a prolonged hospital stay. All of this was discussed on her peer to peer call and unfortunately the physician upheld the denial. As her insurance is aware of the almost certain complications and life altering subsequent surgical interventions that will proceed if she were to be discharge home, I would place the liability of these complications on her insurance company, [employer]. Patient has completed the appeal process; awaiting determination. Admission and Anticipated Discharge Date Admission Date: December 06, 2024 Supervising Physician Co-Signing Physician Notes chart reviewed, case d/w S Maksim FLORES. as above Subjective Patient seen and evaluated at bedside. She reports feeling well overall. She is staying compliant with NWB on her left leg. Her pain is well controlled at this time. She had right-sided chest pain last night; EKG and troponin checked and unremarkable and she was given lidocaine patch and Voltaren gel with impro vement. We discussed the change in her diuretic dosing. Her insurance company reached out to her yesterday about the appeal, but no further information about their determination at this time. No additional complaints or concerns at this time. Physical Exam Physical Exam: General: No acute distress, nondiaphoretic, well-developed, well-nourished. Skin: Warm, dry. No thigh or abdominal wall edema. Chronic venous stasis changes starts mid-calf to foot bilaterally. Left foot wrapped in dressing clean dry intact. No peripheral edema in bilateral lower extremities. Cardiac: Regular rate and rhythm without murmurs gallops or rubs. Mild tenderness to palpation of her anterior right-sided chest wall. Pulm: Normal respiratory effort. 97% on room air. Abdominal: Soft, nontender, nondistended. Bowel sounds present. Neuro: A&O x3. No focal neurological deficits. Results & Data Results & Data Vital Signs (Past 12 Hours) Vital Signs Temp Pulse Resp BP Pulse Ox O2 Del Method O2 Flow Rate 12/17/24 07:37 97.9 F 58 L 16 121/72 97 Room Air 12/16/24 23:09 97.5 F L 59 L 18 136/86 97 Nasal Cannula 2 Laboratory Results Reviewed BMP PG Care Time/CCT Total # of Minutes Spent Total Time Spent with Patient: Total time spent is greater than 50% in coordination of care (as documented) at patient's floor/unit and/or counseling patient: Coding Level of Care Code 30083 SUB INP/OBS CARE 3/50MIN Diagnoses Edema of both lower extremities R60.0 Diabetes mellitus, type 2 E11.9 Acute gout due to renal impairment involving left foot M10.372 Gout etiology: due to renal impairment Gout site: foot Laterality: left CKD (chronic kidney disease) stage 3, GFR 30-59 ml/min N18.31 Chronic kidney disease stage 3 subtype: stage 3a (GFR 45-59) Diabetic ulcer of left midfoot associated with diabetes mellitus due to underlying condition, with fat layer exposed E08.621; L97.422 Diabetic foot ulcer location: midfoot (3) Acute gout Gout etiology: due to renal impairment Gout site: foot Laterality: left Qualified Code(s): M10.372 - Gout due to renal impairment, left ankle and foot (4) CKD (chronic kidney disease) stage 3, GFR 30-59 ml/min Chronic kidney disease stage 3 subtype: stage 3a (GFR 45-59) Qualified Code(s): N18.31 - Chronic kidney disease, stage 3a (5) Diabetic ulcer of left foot associated with diabetes mellitus due to underlying condition, with fat layer exposed Diabetic foot ulcer location: midfoot Qualified Code(s): E08.621 - Diabetes mellitus due to underlying condition with foot ulcer; L97.422 - Non-pressure chronic ulcer of left heel and midfoot with fat layer exposed"
[2024-12-17] MEDS: TORSEMIDE 20 MG TAB PO SCH (08:36)
[2024-12-17] MEDS: REMOVE LIDODERM PATCH SCH (23:38)
[2024-12-18] MEDS ORDERED: ONDANSETRON 4 MG OD TAB PO PRN (03:39)
[2024-12-18 07:32] VITALS: RESP 16
[2024-12-18 08:00] LABS: Potassium 4.5 mmol/L (3.5-5.1)
[2024-12-18 08:01] LABS: Anion Gap 5.0 (3-11); Blood Urea Nitrogen 31.0 mg/dl (6-23); Calcium 9.0 mg/dl (8.6-10.3); Carbon Dioxide 38.0 mmol/L (21-32); Chloride 94.0 mmol/L (98-107); Creatinine Clr Calc Pharmacy 52.7 ml/min; Glucose 90.0 mg/dl (70-99(Fasting)); Sodium 137.0 mmol/L (136-145)
--- NOTE | 2024-12-18 10:18 | Discharge Summary ---
Discharge Summary Date of Service December 18, 2024 Principal Dx & Hospital Course #1 = Principal Diagnosis (1) Edema of both lower extremities: (2) Diabetes mellitus, type 2: (3) Acute gout: (4) CKD (chronic kidney disease) stage 3, GFR 30-59 ml/min: (5) Diabetic ulcer of left foot associated with diabetes mellitus due to underlying condition, with fat layer exposed: Plan 64-year-old woman with type 2 diabetes and neuropathy complicated by plantar ulcers, HFpEF and RV dysfunction who was admitted for 20 pound weight gain over a few days or week despite doubling oral diuretics, severe left foot pain which is increased and difficulty ambulating, inability to bear weight on the left foot and inability to bear weight on the right because of back/hip/thigh pain. Regarding the edema she has component of right heart failure, and nephrosarca and/or bowel wall edema may have been impairing oral diuretic absorption. Edema significantly improved after IV/po diuresis. Changed to oral diuretics 12/09. Brisk response to torsemide, plan on this for discharge rather than bumex. #Left sided diabetic foot wounds | diabetic ulcers of left foot with fat layer exposed s/p 5 day course of abx (Dapto/Linezolid) finished on 12/11. Previous wound cultures of proteus + MRSA Continue CAM boots on dc. - issues complying w/ non weight bearing status on left foot @ home. Dr. Somers consulted, 12/11 - > for chance of salvaging foot, needs to be off of it. Cannot happen @ home & tissue injury has progressed. Debrided necrotic areas 12/14. LLE artieral duplex: nonvisualization of peroneal artery, remaining arteries of LLE are patent w/ no evidence of high grade stenosis. Agreeable to SNF rehab stay --> to go to [facility] 12/18. #Acute on chronic right heart failure, chronic HFpEF with mild underlying Continue Metoprolol, Empagliflozin, Spironolactone. Bumex switched to Torsemide 60mg every other day - monitor outpatient. #CKD, stage IIIa/b Follows w/ nephro outpatient. Baseline creat 1.4-1.5 Difficult balance between volume status & renal function w/ diuretics. Adjusted Torsedmie to 60mg QOD - continue to monitor renal function outpatient. #Right lower abdominal wall / R groin / anterior R thigh pain suspect peripheral nerve combined with lumbar radicular pain. This seems to be chronic resumed cymbalta, bupropion, capsaicin cream prn. Improving #acute gout flare - resolved. underlying chronic gout LE duplex was negative. foot x-ray unremarkable. s/p course of prednisone Continue allopurinol #T2DM W/ neuropathy, on gabapentin. At home regimen includes empagliflozin (for heart failure) Most recent A1C 07/2024 @ 5.9% resumed empagliflozin Outpatient meds resumed on dc. #HTN- Losartan, metoprolol - continue #Asthma/Allergies- Cetirizine, hydroxyzine prn, montelukast, Inhalers and nebs - continue. stable #ANDRZEJ- CPAP nightly - continue #Psych- Bupropion and duloxetine resumed, continue buspirone #GERD- Famotidine, pantoprazole, Sucralfate- continue #H/o CVA- April 2017; ASA - continue Discharged to [facility] rehab 12/18. Admission HPI Per Admitting Provider 64-year-old female PMHx HFpEF, HTN, T2DM, ANDRZEJ, asthma/allergies, gout, prior CVA (April 2017), , and obesity presenting for bilateral lower extremity swelling and pain for the past few days. States that her legs just kept getting "worse and worse" over the past ~ 2 weeks, causing her to have severe 10/10 pain, and her legs were erythematous. She states that the pain is sharp and always present. Currently a 10/10. L > R. She does have 2 wounds on the bottom of her L foot that are being followed by wound care weekly. She completed a course of Bactrim for these, then was prescribed Linezolid and is currently taking that. She does not have a fever or seepage from her legs. Feels that she may have gained up to 20lbs over the past 2 weeks, feels that most of it is resting in her legs. She increased her outpatient Bumex from 1mg po daily to 2mg po BID and has not noticed much improvement. She notes a history of MRSA. Of note, she had some dysuria on the day of arrival, no additional LUTS. Denies SOB, HAYES, or chest pain. No coughing. No abdominal fullness. Occasionally has low back pain and R hip pain, no recent trauma or falls, no longer taking oxycodone. Denies chest pain, SOB, palpitations, abdominal pain, N/V/D/C, numbness/tingling aside from baseline, URI symptoms, fevers, additional LUTS, weakness, or syncope. She has been taking her medications as prescribed. ED evaluation reveals CBC without leukocytosis, stable H&H; PT/INR WNL; CMP creatinine 1.22, BUN/creatinine ratio 8.2; lactate 1.9; troponin 8.4; BNP 38; CXR WNL; venous Doppler bilat w/ superficial edema bilaterally, no DVT; EKG NSR at 80 bpm.; Provided with Bumex 2 mg IV and ceftriaxone 2 g IV in ED. Please see Dr. Dickerson's attestation for adjustments/additions to treatment plan. Discharge Exam General: No acute distress, well-developed, well-nourished. Skin: Warm, dry. No rashes noted. No thigh or abdominal wall edema. Chronic venous stasis changes starts mid-calf to foot bilaterally. Left foot wrapped in dressing clean dry intact. Right LE with DARIN stocking. No peripheral edema in bilateral lower extremities. Cardiac: Well-perfused. Pulm: Normal respiratory effort. Neuro: A&O x3. No focal neurological deficits. Discharge Plan Discharge Items Patient Disposition: Transfer Inpatient Rehab Fac Reason For Visit: BLE EDEMA,?HF Discharge Diagnosis: Diabetetic foot ulcer, Acute on chronic CHF Condition on Discharge: Fair Activity: As commented below Activity Comment: limit weight bearing on left lower extremity Non-emergency contact: Primary Care Provider and Surgeon Call non-emergency contact if: you have any medication questions, your symptoms worsen and you have a fever Follow-up/Referrals: Awilda Eric CRNP [Primary Care Provider] - 12/28/24 10:00 am (Please arrive 15 min. before your scheduled appointment. Thank you! Appt on 12/18 @ 1100 with PCP. Called the office to reschedule due to hospitalization. Per Sean.) Jerrell Somers DPM [Surgeon] - Diet: Carb Consistent or DM2 and Heart Healthy Addtl Attending Provider Instructions: Ms. Tristan, You were recently hospitalized for weight gain and severe left foot pain. You were found to be in an acute exacerbation of your heart failure which was treated with IV diuretic therapy. You also were evaluated by Dr. Somers, the photographer who would like you to limit weight bearing of your left extremity so that your wounds can heal. Please see recommendations below regarding your discharge. Please continue on Torsemide 60mg every other day upon discharge. - This is your new diuretic. You may stop taking the Butemaide twice daily now. You already completed an antibiotic course for your wounds while inpatient. You do not require an antibiotic on discharge. Please resume the remainder of your medications unless stated otherwise below. Please follow up with Dr. Somers for continued care of your diabetetic wounds. Please follow up with your PCP within 1-2 weeks of discharge. Best of luck! Mansi Pascual PA-C Pending Studies at Discharge: No Stand-Alone Forms: My [facility] Skilled Items Patient informed of condition?: Yes DNR: No Discharge Level of Care: Acute rehab Communicable Disease: No Discharge Prognosis: Stable Lines: None Urinary Catheter: No Medications and DC Order Prescriptions: New torsemide 20 mg Tablet 60 mg PO Q2D Qty: 30 0RF Continued gentamicin 0.1 % ointment 1 applic topical DAILY 14 Days Qty: 30 1RF Jardiance 10 mg tablet 10 mg PO QAM Qty: 90 3RF Hold Instructions: Provider's Order Rx Instructions: for congestive heart failure montelukast [Singulair] 10 mg tablet 10 mg PO QPM Qty: 90 3RF albuterol sulfate [Ventolin HFA] 90 mcg/actuation HFA aerosol inhaler 2 puff INHALATION Q4H PRN (Reason: Shortness Of Breath Or Wheezing) Qty: 18 3RF bupropion HCl 150 mg tablet extended release 24 hr 150 mg PO QAM Qty: 90 2RF Rx Instructions: ON HOLD FOR TWO WEEKS OF 12/04/2024 gabapentin 400 mg capsule 400 mg PO QID Qty: 360 0RF multivitamin Tablet 1 tab PO QAM Qty: 90 1RF allopurinol 100 mg tablet 100 mg PO BID Qty: 180 1RF pantoprazole [Protonix] 40 mg tablet,delayed release (DR/EC) 40 mg PO BID Qty: 90 3RF aspirin 81 mg tablet,delayed release (DR/EC) 81 mg PO QAM duloxetine [Cymbalta] 60 mg capsule,delayed release(DR/EC) 60 mg PO BID Rx Instructions: ON HOLD FOR TWO WEEKS OF 12/04/2024 albuterol sulfate 2.5 mg /3 mL (0.083 %) solution for nebulization 2.5 mg inhalation Q6H PRN (Reason: Shortness Of Breath) Qty: 90 1RF Rx Instructions: needed metoprolol succinate 25 mg tablet extended release 24 hr 25 mg PO DAILY Qty: 90 3RF spironolactone 25 mg tablet 25 mg PO BID Qty: 180 3RF Rx Instructions: ON HOLD FOR TWO WEEKS OF 12/04/2024 buspirone 15 mg tablet 15 mg PO TID cyanocobalamin (vitamin B-12) [Vitamin B-12] 1,000 mcg tablet 1,000 mcg PO QAM Tums 300 mg (750 mg) tablet,chewable 900 mg PO QAM diclofenac sodium [Voltaren Arthritis Pain] 1 % Gel 4 g EXT QID Qty: 1 0RF Rx Instructions: purchase veic-psz-vqumadc; may use 4 grams on your lower back, either knee, either hip, back of neck. nystatin 100,000 unit/gram powder 1 applic topical TID PRN (Reason: yeast rash under breasts, abdominal skin folds) Qty: 30 0RF hydroxyzine HCl 25 mg tablet 25 mg PO HS PRN (Reason: Allergy Symptoms) cholecalciferol (vitamin D3) [Vitamin D3] 50 mcg (2,000 unit) capsule 2,000 unit PO TID oxycodone 5 mg Tablet 5 mg PO Q4H PRN (Reason: pain) Qty: 30 0RF sennosides [Senokot] 8.6 mg tablet 17.2 mg PO BID Rx Instructions: purchase cfrp-dbi-opwface famotidine 40 mg tablet 40 mg PO QPM polyethylene glycol 3350 [Miralax] 17 gram/dose powder 17 g PO DAILY PRN (Reason: Constipation) Rx Instructions: Take 17gm mixed in 8 ounces of water once daily. Can be increased up to TID as needed for constipation. cetirizine [Zyrtec] 10 mg tablet 10 mg PO BID potassium chloride [Klor-Con M20] 20 mEq tablet,ER particles/crystals 20 meq PO QAM epinephrine 0.3 mg/0.3 mL auto-injector 0.3 mg IM UD PRN (Reason: anaphylaxis) acetaminophen 500 mg tablet 1,000 mg PO TID PRN (Reason: fever or pain) Qty: 90 0RF losartan 25 mg tablet 25 mg PO QAM nystatin 100,000 unit/gram ointment 1 applic EXT TID PRN (Reason: FLARE) sucralfate [Carafate] 1 gram tablet 1 g PO AC PRN (Reason: heartburn) Qty: 30 0RF Discontinued linezolid 600 mg tablet 600 mg PO Q12H 14 Days Qty: 28 0RF bumetanide 2 mg tablet 4 mg PO BID No Action (DME) CPAP Supplies Misc See Rx Instructions .Route Qty: 1 0RF Rx Instructions: As directed (DME) CPAP Machine Misc See Rx Instructions .Route Qty: 1 0RF Rx Instructions: As directed 11cm water pressure Discharge Orders: Discharge Order (Routine); Ordered 12/18/24 Ordered By: Mansi Pascual Admission Data Admit Date/Time: 12/06/24 21:18 Attending Provider: Candido Bethea Admit Provider: Awilda Dickerson Primary Care Provider: Awilda Eric Other Providers: Awilda Dickerson; [facility]; [facility]; Jerrell Somers Hospital Stay Data Consultations 12/06/24 20:33 ED Decision to Admit Stat 12/11/24 12:27 Consult Podiatry Routine Diagnostic Imagining Performed 12/06/24 17:29 US venous duplex leg [US venous doppler LE BI] Stat 12/14/24 09:59 US arterial duplex LE LT Routine Pending Results Patient Have Any Pending Studies at Discharge: No Discharge Instructions Given to Patient (Per Discharging Provider) Ms. Tristan, You were recently hospitalized for weight gain and severe left foot pain. You were found to be in an acute exacerbation of your heart failure which was treated with IV diuretic therapy. You also were evaluated by Dr. Somers, the photographer who would like you to limit weight bearing of your left extremity so that your wounds can heal. Please see recommendations below regarding your discharge. Please continue on Torsemide 60mg every other day upon discharge. - This is your new diuretic. You may stop taking the Butemaide twice daily now. You already completed an antibiotic course for your wounds while inpatient. You do not require an antibiotic on discharge. Please resume the remainder of your medications unless stated otherwise below. Please follow up with Dr. Somers for continued care of your diabetetic wounds. Please follow up with your PCP within 1-2 weeks of discharge. Best of luck! Mansi Pascual PA-C Total Time Total Time Spent Total Time Spent (In Minutes): 50 Total Time Includes: Examination of the Patient, Discharge Planning, Medication Reconciliation and 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 With Other Providers Coding Level of Care Code 52300 INP/OBS DISCH >30 MIN Diagnoses Edema of both lower extremities R60.0 Diabetes mellitus, type 2 E11.9 Acute gout due to renal impairment involving left foot M10.372 Gout etiology: due to renal impairment Gout site: foot Laterality: left CKD (chronic kidney disease) stage 3, GFR 30-59 ml/min N18.31 Chronic kidney disease stage 3 subtype: stage 3a (GFR 45-59) Diabetic ulcer of left midfoot associated with diabetes mellitus due to underlying condition, with fat layer exposed E08.621; L97.422 Diabetic foot ulcer location: midfoot
[2024-12-18 11:41] VITALS: TEMP 97.9; O2SAT 97
--- NOTE | 2024-12-18 11:51 | Electrocardiogram Report ---
Test Reason : Blood Pressure : */* mmHG Vent. Rate : 58 BPM Atrial Rate : 58 BPM P-R Int : 150 ms QRS Dur : 90 ms QT Int : 426 ms P-R-T Axes : -8 -32 -3 degrees QTcB Int : 418 ms Sinus bradycardia Left axis deviation Moderate voltage criteria for LVH, may be normal variant possible Inferior infarct (cited on or before 23-Jul-2017) Anteroseptal infarct (cited on or before 01-Oct-2017) Nonspecific ST abnormality Abnormal ECG When compared with ECG of 06-Dec-2024 17:02, Inverted T waves have replaced nonspecific T wave abnormality in Inferior leads Confirmed by Norris Bower ([id number]) on 12/18/2024 11:50:48 AM Referred By: REFERRED SELF Confirmed By: Norris Bower
[2024-12-18 13:59] VITALS: BP 153/89; PULSE 63
== END 2024-12-18 13:30 | DRG 264 ==
LOC: ED 16:37 → SUATTDRO 21:18 → 2W 21:18 → 3E 12-12 02:07

== ENCOUNTER 2025-01-08 13:55 | Inpatient (IN) ==
[2025-01-08 14:31] LABS: Hematocrit (blood only) 40.1 % (37.0-47.0); Hemoglobin 12.8 g/dl (12.0-16.0); Immature Granulocytes # (auto) 0.02 K/uL (0.01-0.20); Immature Granulocytes % (auto) 0.2 %; Mean Corpuscular Hemoglobin 26.2 pg (25.0-34.0); Mean Corpuscular Volume 82.2 fL (80.0-100.0); Platelet Count 307 K/uL (130-400); RDW Standard Deviation 45.6 fL (36.4-46.3); Red Blood Count 4.88 M/uL (4.20-5.40); White Blood Count 8.72 K/ul (4.8-10.8)
[2025-01-08 14:48] LABS: Alanine Aminotransferase 12 U/L (7-52); Albumin Globulin Ratio 1.1 (0.9-2); Alkaline Phosphatase 98 U/L (34-104); Anion Gap 4 (3-11); Bilirubin,Total 0.6 mg/dl (0.2-1.0); Blood Urea Nitrogen 14 mg/dl (6-23); Calcium 9.1 mg/dl (8.6-10.3); Carbon Dioxide 32 mmol/L (21-32); Chloride 102 mmol/L (98-107); Globulin 3.4 gm/dl (2.5-4.0); Glucose 105 mg/dl (70-99(Fasting)); Potassium 3.9 mmol/L (3.5-5.1); Sodium 138 mmol/L (136-145); Total Protein 7.2 gm/dl (6.0-8.3)
--- NOTE | 2025-01-08 16:29 | Emergency Department Note ---
Impression & Plan Diabetic ulcer of left foot, Cellulitis of foot, left ED Provider Note NAME: CELIO ARGUELLES AGE: 64 SEX: F : 1960 ARRIVES VIA: Walk-In INFORMANT: Patient, ED PROVIDER(S): Du Bella MD CHIEF COMPLAINT: Foot wound, outpatient referral MEDICAL DECISION MAKING: Patient presents with above. IV was established and blood work is obtained. Patient with normal vital signs at this time. Patient did have a wound culture obtained and sent patient was ordered empiric antibiotics after discussion with pharmacy daptomycin cefepime and Flagyl. Initial blood work shows a normal white count hemoglobin and platelet count. The patient's kidney function with creatinine 1.4. This is better than the patient's baseline. Patient did have a foot x-ray performed which does not show any obvious evidence of osteomyelitis. Patient was discussed with the on-call hospitalist and the patient was admitted by Dr. Painter. Discussion w/ other healthcare providers: Dr. Painter inpatient medicine service Prior /Outside records reviewed: None Differential diagnosis: Cellulitis, abscess, MRSA infection, DVT, necrotizing fasciitis, dermatitis, drug eruption, allergic reaction, as well as other pathologies were considered. Diagnostics, as interpreted by me: ECG: None Cardiac monitoring: An order was placed for continuous cardiac monitoring. The monitor shows a rate of 67 with sinus rhythm. Patient was placed on pulse oximetry Medical decision rules: None Imaging studies: I informally interpreted the patient's foot x-ray does not show obvious fracture with formal report to follow. HPI: [Pt is a 64 yo female with PMH of DMT2, CKD, CHF, B-cell lymphoma, HTN, asthma, neuropathy, venous stasis and gout who presents per advice of her wound clinic nurses due to concern for infection at her left foot. Pt describes chronic left foot wounds over the last few years that have been treated intermittently with antibiotics and wound care. Pt states she went to wound clinic this morning for dressing change and noted increased pain with dressing removal as well as gauze pad at her lateral/posterior foot was soaked through with a brown, pus drainage. She also noted redness at her anterior and lateral left foot that was not present when dressing was applied on 01/05/25. Pt has baseline loss of sensation at bilateral lower extremities below the knee, however she is noting increased pain at left foot and ankle at rest and with ambulation. Pt wears CAM boots bilaterally. Pt denies trauma to left foot since last dressing change. She also denies fever/chills, chest pain, SOB, abdominal pain, headache, dizziness, N/V/D/C, or dysuria. Pt was seen by Podiatry during her last hospital admission in 11/2024. At that time, she was advised on rehab stay. Pt's most recent antibiotic course of daptomycin and linezolid finished on 12/11/24. She underwent a duplex on 12/14/24 which showed MIKI at L posterior tibialis artery was 0.90 and L dorsalis pedis was 0.92. Pt was discharged from group home care last week where she has been receiving therapy and has been non-weight bearing at [facility]. PAST MEDICAL HISTORY: See Below PAST SURGICAL HISTORY: See Below SOCIAL HISTORY: See Below HOME MEDICATIONS: See Below ALLERGIES: See Below VITALS: See Below PHYSICAL EXAMINATION: GENERAL: NAD, non-toxic. EYE EXAM: Normal conjunctiva. PERRL, no anisocoria and EOM's grossly intact w/o pain. OROPHARYNX: Moist mucus membranes, grossly normal dentition. NECK: Trachea midline, no stridor. LUNGS: Clear to auscultation. Normal chest wall mechanics. HEART: NSR, no MRG. ABDOMEN: Abdomen soft, non-tender, no masses, no rebound or guarding. BACK: No CVA TTP. SKIN: No rashes and no bruising. UPPER EXTREMITIES: Upper extremities are grossly normal. LOWER EXTREMITIES: 2 areas of ulceration of the plantar aspect of the left foot. Erythema and warmth noted over the dorsal aspect of the left foot. No obvious asymmetry between the bilateral lower extremities. NEURO EXAM: Awake and alert, follows commands, no obvious facial asymmetry, normal speech, moves all 4 extremities. Past Med/Surg History Problem List (Updated 01/08/25 @ 19:02 by Du Bella MD) Cellulitis of foot, left (Acute) Diabetic ulcer of left foot (Acute) Pressure ulcer of left foot, stage 1 (Acute) Acute gout Pedal edema (Acute) Weight gain (Acute) Cellulitis (Acute) Fluid overload (Acute) Aortic stenosis Mild 07/2024 Abrasion, left foot, initial encounter Cellulitis of left foot Diabetic ulcer of left foot associated with diabetes mellitus due to underlying condition, with fat layer exposed (Acute) Pyelonephritis (Acute) Trauma of ear canal Dietary counseling and surveillance Mass of soft tissue of ankle Ambulatory dysfunction (Acute) Diabetic foot infection (Acute) Diabetic foot infection Left radial head fracture Diabetic ulcer of left foot Diabetic ulcer of right foot Venous ulcers of both lower extremities Adnexal cyst Postprandial nausea Chronic diastolic (congestive) heart failure Iron deficiency anemia Iron deficiency anemia Perforated ear drum Acute osteomyelitis of toe of left foot (Acute) Diabetic infection of left foot (Acute) Toe gangrene Cellulitis of both lower extremities 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 Status post panniculectomy Musculoskeletal pain Cellulitis of left leg (Acute) Weakness (Acute) Weight gain (Acute) CHF (congestive heart failure) (Acute) Panniculitis (Acute) Acute kidney injury superimposed on CKD Obesity (Acute) Failure of outpatient treatment (Acute) Cellulitis (Acute) Supraclavicular lymphadenopathy Acute on chronic heart failure with preserved ejection fraction Open wound of abdomen (Acute) Morbid obesity HAYES (dyspnea on exertion) (Acute) CKD (chronic kidney disease) stage 3, GFR 30-59 ml/min (Acute) Acute exacerbation of CHF (congestive heart failure) (Acute) Cellulitis (Acute) Cellulitis of suprapubic region Acute on chronic heart failure VARINDER (acute kidney injury) Osteoarthritis of hip Constipation Lymphoma Hip pain, right Failure of outpatient treatment (Acute) CRF (chronic renal failure) (Acute) Edema of both lower extremities (Acute) Fluid overload (Acute) Edema of abdominal wall (Acute) Ulcer of both feet Volume overload Hx MRSA infection 09/2021 s/p left knee infection > resolved > continues with doxycycline daily for prevention Lymphadenopathy of left cervical region Urticaria Chronic ulcer of left foot with fat layer exposed Diabetes mellitus type 2 with neurological manifestations Candidiasis of skin Solitary kidney, congenital Bilateral hip pain Low back pain Weakness (Acute) Lower extremity edema (Acute) CHF (congestive heart failure) (Acute) Abdominal pannus Fatty liver Dependent lymphedema Stage 3b chronic kidney disease Anemia reason for procedure. iron infusions recently. 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 Other ovarian cyst, left side Vitamin D deficiency Peripheral neuropathy Lumbar spinal stenosis 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- DISCOVERED WITH INCIDENTAL IMAGING Gout CKD (chronic kidney disease) stage 3, GFR 30-59 ml/min monitoring Chronic back pain Acid reflux Medical History Diabetes Acute kidney injury superimposed on stage 3b chronic kidney disease Acute UTI (urinary tract infection) Sepsis Diabetic foot ulcer Abdominal wall cellulitis Hypokalemia Mast cell disease B-cell lymphoma Hx-TIA (transient ischemic attack) 2017 > ASA for prevention > no residual effects Hx of sepsis 09/2021 r/t left knee infection Hypertension Lumbar spinal stenosis Arthritis Allergic rhinitis Gout Other ovarian cyst, left side present, just monitoring Acid reflux Severe obstructive sleep apnea cpap Stage 3 chronic kidney disease follows with Dr. Wood Fatty liver CHF (congestive heart failure) follows with Ashlyn Griffin Solitary kidney, congenital Diabetes mellitus, type 2 Ulcer of foot one ulcer present to bottom of bilat feet > follows with wound clinic at [place], improving per pt History of COVID-19 09/2021 Iron deficiency anemia Venous stasis of both lower extremities MDD (major depressive disorder), recurrent episode, moderate Ambulatory dysfunction uses walker Depression with anxiety Degenerative joint disease, shoulder, right Lymphedema left leg and abdomen / chronic Asthma well controlled, rare res inh use Hyperlipidemia no meds Surgical History Hx of biopsy (12/29/23) Left Neck Lymph Node Biopsy(Left) - Yohan Maldonado, DO, FACS History of insertion of central venous access port removed in 2022 History of revision of total replacement of left knee joint History of cardiac cath remote hx over 20 yrs ago, no stents History of colonoscopy History of esophagogastroduodenoscopy (EGD) History of bilateral knee replacement (10/16/22) H/O knee surgery (12/2021) L knee washout w/ polyexchange S/P tonsillectomy and adenoidectomy Status post total shoulder arthroplasty (10/17/18) right History of carpal tunnel release B/L H/O ventral hernia repair History of appendectomy History of cholecystectomy Family History Mother Diabetes Coronary heart disease Myocardial infarction S/P CABG x 3 Hypertension Gallbladder disease Sister Hodgkins lymphoma Brother Kidney disease Grandmother Breast cancer Aunt Ovarian cancer Father , 02/11/20. 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 Beliefs That Will Affect Care: None marital status: marital status details: ; lives with parents & 1 daughter Current Living Situation: Family Current Living Situation Comment: Lives with daughter and her mom current occupational status: disabled other: worked in [employer] in [employer]; worked for [employer] Feels Safe at Home: Yes Childhood Exposure to Second-Hand Smoke: No Diet: regular Diet Comment: regular caffeine: No Dental Care, Regularly: No Physical Activity Frequency: Does not Exercise Seatbelt Use: always Sunscreen Use: Yes Assistive Devices: Glasses and Walker Allergies Allergies Allergy/AdvReac Type Severity Reaction Status Date / Time Corticosteroids Allergy Severe Anaphylaxis Verified 01/08/25 18:37 (Glucocorticoids) clindamycin Allergy Intermediate Rash Verified 01/08/25 18:37 dog dander Allergy Intermediate Rash Verified 01/08/25 18:37 iron [From Venofer] Allergy Intermediate Rash Verified 01/08/25 18:37 morphine Allergy Intermediate mouth and Verified 01/08/25 18:37 face swells Penicillins Allergy Intermediate rash/hives Verified 01/08/25 18:37 adhesive Allergy Mild Skin rash Verified 01/08/25 18:37 localized zolpidem Allergy Unknown Unknown Verified 01/08/25 18:37 pregabalin AdvReac Intermediate "makes Verified 01/08/25 18:37 goofy" Home Meds Home Medications Medication Instructions Recorded Confirmed calcium carbonate (Tums) 900 mg PO QAM 03/03/22 01/08/25 cyanocobalamin (vitamin B-12) 1,000 mcg PO QAM 03/03/22 01/08/25 1,000 mcg tablet (Vitamin B-12) aspirin 81 mg tablet,delayed 81 mg PO QAM 06/25/23 01/08/25 release cetirizine 10 mg tablet (Zyrtec) 10 mg PO BID 10/20/23 01/08/25 epinephrine 0.3 mg/0.3 mL 0.3 mg IM UD PRN anaphylaxis 01/06/24 01/08/25 injection, auto-injector losartan 25 mg tablet 25 mg PO QAM 07/23/24 01/08/25 nystatin 100,000 unit/gram topical 1 applic EXT TID PRN FLARE 07/23/24 01/08/25 ointment buspirone 15 mg tablet 15 mg PO QID 08/01/24 01/08/25 cholecalciferol (vitamin D3) 50 2,000 unit PO TID 09/01/24 01/08/25 mcg (2,000 unit) capsule (Vitamin D3) hydroxyzine HCl 25 mg tablet 25 mg PO HS 09/01/24 01/08/25 sennosides 8.6 mg tablet (Senokot) 17.2 mg PO BID 10/06/24 01/08/25 famotidine 40 mg tablet 40 mg PO QPM 10/23/24 01/08/25 polyethylene glycol 3350 17 17 g PO DAILY PRN Constipation 12/06/24 01/08/25 gram/dose oral powder (Miralax) duloxetine 60 mg capsule,delayed 60 mg PO BID 01/08/25 01/08/25 release metoprolol succinate 25 mg 25 mg PO QAM 01/08/25 01/08/25 tablet,extended release 24 hr multivitamin (Daily-Holli tablet) 1 tab PO QAM 01/08/25 01/08/25 Previous Rx's Medication Instructions Recorded albuterol sulfate 2.5 mg/3 mL 2.5 mg (3 mL) inhalation Q6H PRN 06/25/23 (0.083 %) solution for nebulization Shortness Of Breath #90 mL diclofenac sodium 1 % topical gel 4 g EXT QID #1 tube 08/30/23 (Voltaren Arthritis Pain) nystatin 100,000 unit/gram topical 1 applic topical TID PRN yeast 08/30/23 powder rash under breasts, abdominal skin folds #30 grams CPAP Supplies #1 ea 09/28/23 CPAP Machine #1 ea 09/29/23 empagliflozin 10 mg tablet 10 mg PO QAM #90 tabs 12/02/23 (Jardiance) montelukast 10 mg tablet 10 mg PO QPM #90 tabs 01/03/24 (Singulair) albuterol sulfate 90 mcg/actuation 2 puff inhalation Q4H PRN 01/04/24 aerosol inhaler (Ventolin HFA) Shortness Of Breath Or Wheezing #18 grams acetaminophen 500 mg tablet 1,000 mg (2 x 500 mg) PO TID PRN 02/04/24 fever or pain #90 tabs bupropion HCl 150 mg 24 hr tablet, 150 mg PO QAM #90 tabs 06/08/24 extended release gabapentin 400 mg capsule 400 mg PO QID #360 caps 06/30/24 sucralfate 1 gram tablet (Carafate) 1 g PO AC PRN heartburn #30 tabs 07/31/24 oxycodone 5 mg tablet 5 mg PO Q4H PRN pain #30 tabs 09/12/24 allopurinol 100 mg tablet 100 mg PO BID #180 tabs 09/13/24 gentamicin 0.1 % topical ointment 1 applic topical DAILY 2 weeks #30 11/09/24 grams spironolactone 25 mg tablet 25 mg PO BID #180 tabs 12/01/24 pantoprazole 40 mg tablet,delayed 40 mg PO BID #90 tabs 12/07/24 release (Protonix) potassium chloride 20 mEq 20 meq PO QAM #90 tabs 12/18/24 tablet,extended release(part/cryst) (Klor-Con M) torsemide 20 mg tablet 60 mg (3 x 20 mg) PO Q2D #30 tabs 12/18/24 tramadol 50 mg tablet 50 mg PO BID PRN pain #30 tabs 01/08/25 Results & Data (ED) Vital Signs Vital Signs - 24 hr 01/08/25 13:58 01/08/25 16:39 01/08/25 16:52 Temperature 36.9 C Temperature Source Temporal Artery Scan Pulse Rate 78 68 Pulse Rate [Left Finger] 69 Pulse Rate from SpO2 Sensor Pulse Rhythm [Left Finger] Regular Pulse Strength [Left Finger] Normal Respiratory Rate 20 20 Respiratory Effort / Characteristics Non-Labored Non-Labored Spontaneous Respiratory Depth Normal Normal Respiratory Pattern Regular Blood Pressure 131/75 Blood Pressure [Right Arm] 135/65 Blood Pressure Mean 93 Blood Pressure Mean [Right Arm] 88 Blood Pressure Position [Right Arm] Sitting Pulse Oximetry 97 100 Oxygen Delivery Method Room Air Room Air Sepsis Recent Fever Within 48 Hours No Sepsis New/Unexplained Change in Mental Status No Sepsis Action Taken by Nursing No Action Required 01/08/25 17:03 01/08/25 17:36 01/08/25 18:03 Temperature Temperature Source Pulse Rate 73 92 H 76 Pulse Rate [Left Finger] Pulse Rate from SpO2 Sensor 73 75 73 Pulse Rhythm [Left Finger] Pulse Strength [Left Finger] Respiratory Rate 25 H 23 15 Respiratory Effort / Characteristics Respiratory Depth Respiratory Pattern Blood Pressure 115/62 118/72 120/66 Blood Pressure [Right Arm] Blood Pressure Mean 79 87 84 Blood Pressure Mean [Right Arm] Blood Pressure Position [Right Arm] Pulse Oximetry 99 100 96 Oxygen Delivery Method Sepsis Recent Fever Within 48 Hours Sepsis New/Unexplained Change in Mental Status Sepsis Action Taken by Nursing 01/08/25 18:30 01/08/25 18:50 Temperature Temperature Source Pulse Rate 60 Pulse Rate [Left Finger] 61 Pulse Rate from SpO2 Sensor 61 Pulse Rhythm [Left Finger] Pulse Strength [Left Finger] Respiratory Rate 24 20 Respiratory Effort / Characteristics Respiratory Depth Respiratory Pattern Blood Pressure 103/72 Blood Pressure [Right Arm] 103/72 Blood Pressure Mean 82 Blood Pressure Mean [Right Arm] 82 Blood Pressure Position [Right Arm] Pulse Oximetry 95 98 Oxygen Delivery Method Sepsis Recent Fever Within 48 Hours Sepsis New/Unexplained Change in Mental Status Sepsis Action Taken by Group Home Medications Current Medication List: was personally reviewed by me Laboratory Data Attestation: I reviewed the patient's lab results. 01/08/25 14:16 01/08/25 14:16 Lab Results 01/08/25 Range/Units 14:16 WBC 8.72 (4.8-10.8) K/ul RBC 4.88 (4.20-5.40) M/uL Hgb 12.8 (12.0-16.0) g/dl Hct 40.1 (37.0-47.0) % MCV 82.2 (80.0-100.0) fL MCH 26.2 (25.0-34.0) pg MCHC 31.9 L (32.0-36.0) g/dL RDW Std Deviation 45.6 (36.4-46.3) fL RDW Coeff of Cleo 15.4 H (11.5-14.5) % Plt Count 307 (130-400) K/uL MPV 9.4 (9.4-12.4) fL Immature Gran % (Auto) 0.2 % Neut % (Auto) 72.5 % Lymph % (Auto) 17.7 % [place] % (Auto) 5.0 % Eos % (Auto) 4.4 % Baso % (Auto) 0.2 % Neut # (Auto) 6.32 (1.40-6.50) K/uL Lymph # (Auto) 1.54 (1.20-3.40) K/uL [place] # (Auto) 0.44 (0.11-0.59) K/uL Eos # (Auto) 0.38 (0.00-0.50) K/uL Baso # (Auto) 0.02 (0.00-0.20) K/uL Immature Gran # (Auto) 0.02 (0.01-0.20) K/uL Sodium 138 (136-145) mmol/L Potassium 3.9 (3.5-5.1) mmol/L Chloride 102 (98-107) mmol/L Carbon Dioxide 32 (21-32) mmol/L Anion Gap 4 (3-11) BUN 14 (6-23) mg/dl Creatinine 1.40 H (0.6-1.2) mg/dl Est Cr Clr Drug Dosing Not Reportable eGFR 42.54 BUN/Creatinine Ratio 10.0 (10-20) Glucose 105 H (70-99(Fasting)) mg/dl Calcium 9.1 (8.6-10.3) mg/dl Total Bilirubin 0.6 (0.2-1.0) mg/dl AST 15 (13-39) U/L ALT 12 (7-52) U/L Alkaline Phosphatase 98 (34-104) U/L Total Protein 7.2 (6.0-8.3) gm/dl Albumin 3.8 (3.4-5.0) gm/dl Globulin 3.4 (2.5-4.0) gm/dl Albumin/Globulin Ratio 1.1 (0.9-2) Procalcitonin 0.03 (0-0.5) ng/ml Administered Medications Discontinued Medications Cefepime HCl (Maxipime 2000mg) 2,000 mg in 20 mls @ 5 mls/min IV NOW ONE Stop: 01/08/25 17:18 Last Admin: 01/08/25 17:47 Dose: 5 mls/min Documented By: ARUNA Metronidazole (Flagyl) 500 mg in 100 mls @ 200 mls/hr IV NOW ONE Stop: 01/08/25 17:44 Last Infusion: 01/08/25 18:57 Dose: Infused Documented By: Admin: 01/08/25 17:48 Dose: 200 mls/hr Documented By: ARUNA Daptomycin 700 mg/ Syringe 14 mls @ 7 mls/min IV NOW ONE; Protocol Stop: 01/08/25 17:31 Last Admin: 01/08/25 17:47 Dose: 7 mls/min Documented By: ARUNA Imaging Data Radiologist's Impression: Foot X-Ray 01/08/25 16:52 EXAMINATION: X-ray foot left minimum 3 view routine CLINICAL HISTORY: Possible for infection osteomyelitis PRIORS: 07/23/2024 left foot TECHNIQUE: Frontal, oblique and lateral view FINDINGS: Absence of the third distal, middle and distal aspect of the proximal phalanx noted, appearing in the interval. Mild diffuse osseous demineralization is noted. No erosion, periosteal reaction or subcutaneous gas. Moderate soft tissue swelling of the lateral aspect of the foot noted. Diffuse soft tissue swelling of the forefoot noted on the lateral view. Moderate degenerative change of the midfoot. Large inferior calcaneal spur noted. Enthesophyte of the Achilles insertion present. No radiopaque foreign body. IMPRESSION: No plain film evidence of osteomyelitis. Please follow-up as clinically appropriate. MRI could be considered if clinical concern warrants. Electronically signed by Theresa Sánchez 01-08-2025 6:22 PM Discharge Plan Visit Data Chief Complaint: Infection Stated Complaint: INFECTION L FOOT ED Provider: Du Bella ED Midlevel Provider: Sharon Gregory Discharge Problem: Diabetic ulcer of left foot, Cellulitis of foot, left Patient Disposition: Admitted As Inpatient Condition: Good Forms Stand Alone Forms: My [facility] TeamLINKS Prescriptions Prescriptions: No Action gentamicin 0.1 % ointment 1 applic topical DAILY 14 Days Qty: 30 1RF (DME) CPAP Supplies Misc See Rx Instructions .Route Qty: 1 0RF Rx Instructions: As directed (DME) CPAP Machine Misc See Rx Instructions .Route Qty: 1 0RF Rx Instructions: As directed 11cm water pressure Jardiance 10 mg tablet 10 mg PO QAM Qty: 90 3RF Hold Instructions: Provider's Order Rx Instructions: for congestive heart failure montelukast [Singulair] 10 mg tablet 10 mg PO QPM Qty: 90 3RF albuterol sulfate [Ventolin HFA] 90 mcg/actuation HFA aerosol inhaler 2 puff INHALATION Q4H PRN (Reason: Shortness Of Breath Or Wheezing) Qty: 18 3RF bupropion HCl 150 mg tablet extended release 24 hr 150 mg PO QAM Qty: 90 2RF Rx Instructions: ON HOLD FOR TWO WEEKS OF 12/04/2024 gabapentin 400 mg capsule 400 mg PO QID Qty: 360 0RF allopurinol 100 mg tablet 100 mg PO BID Qty: 180 1RF pantoprazole [Protonix] 40 mg tablet,delayed release (DR/EC) 40 mg PO BID Qty: 90 3RF potassium chloride [Klor-Con M20] 20 mEq tablet,ER particles/crystals 20 meq PO QAM Qty: 90 3RF aspirin 81 mg tablet,delayed release (DR/EC) 81 mg PO QAM albuterol sulfate 2.5 mg /3 mL (0.083 %) solution for nebulization 2.5 mg inhalation Q6H PRN (Reason: Shortness Of Breath) Qty: 90 1RF Rx Instructions: needed spironolactone 25 mg tablet 25 mg PO BID Qty: 180 3RF Rx Instructions: ON HOLD FOR TWO WEEKS OF 12/04/2024 buspirone 15 mg tablet 15 mg PO QID tramadol 50 mg tablet 50 mg PO BID PRN (Reason: pain) Qty: 30 0RF cyanocobalamin (vitamin B-12) [Vitamin B-12] 1,000 mcg tablet 1,000 mcg PO QAM Tums 300 mg (750 mg) tablet,chewable 900 mg PO QAM diclofenac sodium [Voltaren Arthritis Pain] 1 % Gel 4 g EXT QID Qty: 1 0RF Rx Instructions: purchase [id number]; may use 4 grams on your lower back, either knee, either hip, back of neck. nystatin 100,000 unit/gram powder 1 applic topical TID PRN (Reason: yeast rash under breasts, abdominal skin folds) Qty: 30 0RF hydroxyzine HCl 25 mg tablet 25 mg PO HS cholecalciferol (vitamin D3) [Vitamin D3] 50 mcg (2,000 unit) capsule 2,000 unit PO TID oxycodone 5 mg Tablet 5 mg PO Q4H PRN (Reason: pain) Qty: 30 0RF sennosides [Senokot] 8.6 mg tablet 17.2 mg PO BID Rx Instructions: purchase [id number] famotidine 40 mg tablet 40 mg PO QPM polyethylene glycol 3350 [Miralax] 17 gram/dose powder 17 g PO DAILY PRN (Reason: Constipation) Rx Instructions: Take 17gm mixed in 8 ounces of water once daily. Can be increased up to TID as needed for constipation. torsemide 20 mg Tablet 60 mg PO Q2D Qty: 30 0RF cetirizine [Zyrtec] 10 mg tablet 10 mg PO BID epinephrine 0.3 mg/0.3 mL auto-injector 0.3 mg IM UD PRN (Reason: anaphylaxis) acetaminophen 500 mg tablet 1,000 mg PO TID PRN (Reason: fever or pain) Qty: 90 0RF losartan 25 mg tablet 25 mg PO QAM nystatin 100,000 unit/gram ointment 1 applic EXT TID PRN (Reason: FLARE) sucralfate [Carafate] 1 gram tablet 1 g PO AC PRN (Reason: heartburn) Qty: 30 0RF multivitamin [Daily-Holli] Tablet 1 tab PO QAM duloxetine 60 mg capsule,delayed release(DR/EC) 60 mg PO BID metoprolol succinate 25 mg tablet extended release 24 hr 25 mg PO QAM Referrals Referrals: Awilda Eric CRNP [Primary Care Provider] - Discharge Problem: Diabetic ulcer of left foot Qualifiers: Diabetic foot ulcer location: midfoot Non-pressure ulcer stage: unspecified non-pressure ulcer stage
[2025-01-08] MEDS ORDERED: Patient's HEIGHT &/or WEIGHT Needed STA (16:57)
[2025-01-08] MEDS: DAPTOmycin 700 MG in SYRINGE 0 ML IV ONE (17:47)
[2025-01-08] MEDS: CEFEPIME 2000MG 2,000 MG/20 ML SYR IV ONE (17:47)
[2025-01-08] MEDS: metroNIDAZOLE 500 MG/100 ML BAG IV ONE (17:48)
--- NOTE | 2025-01-08 18:00 | History & Physical Report ---
Date of Service January 08, 2025 Assessment & Plan (1) Diabetic ulcer of left foot associated with diabetes mellitus due to underlying condition, with fat layer exposed: (2) Cellulitis of left foot: (3) Hx MRSA infection: Plan This patient is a 64-year-old female with PMH of T2DM who presents on 01/08 at the behest of the wound care clinic for a left diabetic foot infection. 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 H/o MRSA infection + reported drainage from the ulcers on 01/08. #Left diabetic foot ulcer/infection | cellulitis Blood cultures drawn in the ED Anaerobic culture/Gram stain obtained No leukocytosis; afebrile Procalcitonin WNL Most recent blood culture on 12/06/2024 grew Staphylococcus lugdunensis (pansensitive) Most recent wound culture on 11/07/2024 grew MRSA + Proteus mirabilis Antibiotic regimen as follows: Daptomycin 900 mg IV q24h Cefepime 2000 mg IV q8h Metronidazole 5 mg IV q12h Pain control with acetaminophen and oxycodone 5-10 mg p.o. PRN Bowel regimen: MiraLAX 17 g daily + Senna BID Daily wound care Wound care nurse consult appreciated Obtain wound cultures PRN Trend CRP #T2DM With neuropathy, on gabapentin Last A1c at 5.9% on 08/08 Hold Jardiance SSI with target BSG range 110-150mg/dL, CF 40, carb ratio deferred T2DM diet BSG ACHS Adjust regimen as needed AM A1c #HFpEF Daily weights Strict I&O monitoring Continue Jardiance Continue torsemide 60mg p.o. BID Continue spironolactone 25 mg p.o. daily # Chronic back pain Currently taking oxycodone 5 mg tablets; prescribed in December 2024; independently verified in PDMP Oxycodone for left foot pain (as above) Diclofenac gel application QID #ANDRZEJ CPAP HS #HTN Continue losartan, metoprolol #CKD, stage IIIa/b Follows with nephrology, most recent visit 10/20/2024. Baseline Cr 1.4-1.5; Cr at admission 1.40 -- BMP am Caution use of nephrotoxic agents #Gout Continue allopurinol #Asthma | Allergies Continue cetirizine, hydroxyzine, montelukast, inhaler, and nebs #Anxiety | Depression Continue buspirone, bupropion, duloxetine #GERD Continue famotidine, pantoprazole, and sucralfate PRN #H/o CVA April 2017; continue aspirin [facility] Heparin 7500 mg SQ q12h History of Present Illness Chief Complaint: Left diabetic foot infection Primary Care Provider: CARRIE Monaco Mrs. Tristan is a 64-year-old female with PMH of severe ANDRZEJ, asthma, morbid obesity, CVA, HFpEF, CKD, anxiety, depression, cellulitis, diabetic foot infections, and MRSA infections. She presented on 01/08 at the [facility] the wound care clinic for a left diabetic foot infection. Patient reports she was feeling fine on Friday 01/05. Then, over the weekend, she developed pain on the sole of her left foot with occasional sharp pains radiating from her heel up into the coles. She characterizes the pain as a "throbbing pain" that she rates a 6 out of 10 at present. She has been taking Tylenol and oxycodone 5 mg tablets as needed for pain control at home, which have helped. She also reportedly has chronic neuropathy in her feet at baseline. Patient was previously at [facility], but was discharged home approximately 1 week ago. She lives in a trailer with her daughter and mother. Patient ambulates with a walker at baseline, but reports she only gets up from the bedroom to the bathroom in terms of movement. She reports that she did have purulent drainage, which she first noticed from her wound sites today on 01/08. History of MRSA infections. Patient took her regular morning medicine today. The only recent change in medication was that she was taken off of Bumex and started on torsemide 60 mg every other day. She does manage her medicine at home. Patient uses a CPAP at night. She denies smoking, tobacco use, recent alcohol use. Vital stable at time of admission. ED course: Daptomycin 700 mg IV Metronidazole 500 mg IV Cefepime 2000 mg IV ROS: Patient endorses ZENG, left foot pain, drainage from the left foot, pain in the right leg extending up from the knee to the hip (which patient attributes to overcompensating for not bearing weight on her left foot), and neuropathy from the knees down b/l. Patient denies fever, chills, night-sweats, dizziness, lightheadedness, chest pain, SOB, abdominal pain, or changes in urinary/bowel habits. Allergies Allergy/AdvReac Type Severity Reaction Status Date / Time Corticosteroids Allergy Severe Anaphylaxis Verified 01/08/25 18:37 (Glucocorticoids) clindamycin Allergy Intermediate Rash Verified 01/08/25 18:37 dog dander Allergy Intermediate Rash Verified 01/08/25 18:37 iron [From Venofer] Allergy Intermediate Rash Verified 01/08/25 18:37 morphine Allergy Intermediate mouth and Verified 01/08/25 18:37 face swells Penicillins Allergy Intermediate rash/hives Verified 01/08/25 18:37 adhesive Allergy Mild Skin rash Verified 01/08/25 18:37 localized zolpidem Allergy Unknown Unknown Verified 01/08/25 18:37 pregabalin AdvReac Intermediate "makes Verified 01/08/25 18:37 goofy" Home Medications Medication Instructions Recorded Confirmed Type calcium carbonate (Tums) 900 mg PO QAM 03/03/22 01/08/25 History cyanocobalamin (vitamin B-12) 1,000 mcg PO QAM 03/03/22 01/08/25 History 1,000 mcg tablet (Vitamin B-12) albuterol sulfate 2.5 mg/3 mL 2.5 mg (3 mL) inhalation Q6H PRN 06/25/23 01/08/25 Rx (0.083 %) solution for nebulization Shortness Of Breath #90 mL aspirin 81 mg tablet,delayed 81 mg PO QAM 06/25/23 01/08/25 History release diclofenac sodium 1 % topical gel 4 g EXT QID #1 tube 08/30/23 01/08/25 Rx (Voltaren Arthritis Pain) nystatin 100,000 unit/gram topical 1 applic topical TID PRN yeast 08/30/23 01/08/25 Rx powder rash under breasts, abdominal skin folds #30 grams CPAP Supplies #1 ea 09/28/23 01/08/25 Rx CPAP Machine #1 ea 09/29/23 01/08/25 Rx cetirizine 10 mg tablet (Zyrtec) 10 mg PO BID 10/20/23 01/08/25 History empagliflozin 10 mg tablet 10 mg PO QAM #90 tabs 12/02/23 01/08/25 Rx (Jardiance) montelukast 10 mg tablet 10 mg PO QPM #90 tabs 01/03/24 01/08/25 Rx (Singulair) albuterol sulfate 90 mcg/actuation 2 puff inhalation Q4H PRN 01/04/24 01/08/25 Rx aerosol inhaler (Ventolin HFA) Shortness Of Breath Or Wheezing #18 grams epinephrine 0.3 mg/0.3 mL 0.3 mg IM UD PRN anaphylaxis 01/06/24 01/08/25 History injection, auto-injector acetaminophen 500 mg tablet 1,000 mg (2 x 500 mg) PO TID PRN 02/04/24 01/08/25 Rx fever or pain #90 tabs bupropion HCl 150 mg 24 hr tablet, 150 mg PO QAM #90 tabs 06/08/24 01/08/25 Rx extended release gabapentin 400 mg capsule 400 mg PO QID #360 caps 06/30/24 01/08/25 Rx losartan 25 mg tablet 25 mg PO QAM 07/23/24 01/08/25 History nystatin 100,000 unit/gram topical 1 applic EXT TID PRN FLARE 07/23/24 01/08/25 History ointment sucralfate 1 gram tablet (Carafate) 1 g PO AC PRN heartburn #30 tabs 07/31/24 01/08/25 Rx buspirone 15 mg tablet 15 mg PO QID 08/01/24 01/08/25 History cholecalciferol (vitamin D3) 50 2,000 unit PO TID 09/01/24 01/08/25 History mcg (2,000 unit) capsule (Vitamin D3) hydroxyzine HCl 25 mg tablet 25 mg PO HS 09/01/24 01/08/25 History oxycodone 5 mg tablet 5 mg PO Q4H PRN pain #30 tabs 09/12/24 01/08/25 Rx allopurinol 100 mg tablet 100 mg PO BID #180 tabs 09/13/24 01/08/25 Rx sennosides 8.6 mg tablet (Senokot) 17.2 mg PO BID 10/06/24 01/08/25 History famotidine 40 mg tablet 40 mg PO QPM 10/23/24 01/08/25 History gentamicin 0.1 % topical ointment 1 applic topical DAILY 2 weeks #30 11/09/24 01/08/25 Rx grams spironolactone 25 mg tablet 25 mg PO BID #180 tabs 12/01/24 01/08/25 Rx polyethylene glycol 3350 17 17 g PO DAILY PRN Constipation 12/06/24 01/08/25 History gram/dose oral powder (Miralax) pantoprazole 40 mg tablet,delayed 40 mg PO BID #90 tabs 12/07/24 01/08/25 Rx release (Protonix) potassium chloride 20 mEq 20 meq PO QAM #90 tabs 12/18/24 01/08/25 Rx tablet,extended release(part/cryst) (Klor-Con M) torsemide 20 mg tablet 60 mg (3 x 20 mg) PO Q2D #30 tabs 12/18/24 01/08/25 Rx duloxetine 60 mg capsule,delayed 60 mg PO BID 01/08/25 01/08/25 History release metoprolol succinate 25 mg 25 mg PO QAM 01/08/25 01/08/25 History tablet,extended release 24 hr multivitamin (Daily-Holli tablet) 1 tab PO QAM 01/08/25 01/08/25 History tramadol 50 mg tablet 50 mg PO BID PRN pain #30 tabs 01/08/25 01/08/25 Rx Past Med/Surg History Problem List (Updated 01/08/25 @ 19:02 by Du Bella MD) Cellulitis of foot, left (Acute) Diabetic ulcer of left foot (Acute) Pressure ulcer of left foot, stage 1 (Acute) Acute gout Pedal edema (Acute) Weight gain (Acute) Cellulitis (Acute) Fluid overload (Acute) Aortic stenosis Mild 07/2024 Abrasion, left foot, initial encounter Cellulitis of left foot Diabetic ulcer of left foot associated with diabetes mellitus due to underlying condition, with fat layer exposed (Acute) Pyelonephritis (Acute) Trauma of ear canal Dietary counseling and surveillance Mass of soft tissue of ankle Ambulatory dysfunction (Acute) Diabetic foot infection (Acute) Diabetic foot infection Left radial head fracture Diabetic ulcer of left foot Diabetic ulcer of right foot Venous ulcers of both lower extremities Adnexal cyst Postprandial nausea Chronic diastolic (congestive) heart failure Iron deficiency anemia Iron deficiency anemia Perforated ear drum Acute osteomyelitis of toe of left foot (Acute) Diabetic infection of left foot (Acute) Toe gangrene Cellulitis of both lower extremities 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 Status post panniculectomy Musculoskeletal pain Cellulitis of left leg (Acute) Weakness (Acute) Weight gain (Acute) CHF (congestive heart failure) (Acute) Panniculitis (Acute) Acute kidney injury superimposed on CKD Obesity (Acute) Failure of outpatient treatment (Acute) Cellulitis (Acute) Supraclavicular lymphadenopathy Acute on chronic heart failure with preserved ejection fraction Open wound of abdomen (Acute) Morbid obesity HAYES (dyspnea on exertion) (Acute) CKD (chronic kidney disease) stage 3, GFR 30-59 ml/min (Acute) Acute exacerbation of CHF (congestive heart failure) (Acute) Cellulitis (Acute) Cellulitis of suprapubic region Acute on chronic heart failure VARINDER (acute kidney injury) Osteoarthritis of hip Constipation Lymphoma Hip pain, right Failure of outpatient treatment (Acute) CRF (chronic renal failure) (Acute) Edema of both lower extremities (Acute) Fluid overload (Acute) Edema of abdominal wall (Acute) Ulcer of both feet Volume overload Hx MRSA infection 09/2021 s/p left knee infection > resolved > continues with doxycycline daily for prevention Lymphadenopathy of left cervical region Urticaria Chronic ulcer of left foot with fat layer exposed Diabetes mellitus type 2 with neurological manifestations Candidiasis of skin Solitary kidney, congenital Bilateral hip pain Low back pain Weakness (Acute) Lower extremity edema (Acute) CHF (congestive heart failure) (Acute) Abdominal pannus Fatty liver Dependent lymphedema Stage 3b chronic kidney disease Anemia reason for procedure. iron infusions recently. 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 Other ovarian cyst, left side Vitamin D deficiency Peripheral neuropathy Lumbar spinal stenosis 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- DISCOVERED WITH INCIDENTAL IMAGING Gout CKD (chronic kidney disease) stage 3, GFR 30-59 ml/min monitoring Chronic back pain Acid reflux Medical History Diabetes Acute kidney injury superimposed on stage 3b chronic kidney disease Acute UTI (urinary tract infection) Sepsis Diabetic foot ulcer Abdominal wall cellulitis Hypokalemia Mast cell disease B-cell lymphoma Hx-TIA (transient ischemic attack) 2017 > ASA for prevention > no residual effects Hx of sepsis 09/2021 r/t left knee infection Hypertension Lumbar spinal stenosis Arthritis Allergic rhinitis Gout Other ovarian cyst, left side present, just monitoring Acid reflux Severe obstructive sleep apnea cpap Stage 3 chronic kidney disease follows with Dr. Wood Fatty liver CHF (congestive heart failure) follows with Ashlyn Gaby Solitary kidney, congenital Diabetes mellitus, type 2 Ulcer of foot one ulcer present to bottom of bilat feet > follows with wound clinic at [place], improving per pt History of COVID-19 09/2021 Iron deficiency anemia Venous stasis of both lower extremities MDD (major depressive disorder), recurrent episode, moderate Ambulatory dysfunction uses walker Depression with anxiety Degenerative joint disease, shoulder, right Lymphedema left leg and abdomen / chronic Asthma well controlled, rare res inh use Hyperlipidemia no meds Surgical History Hx of biopsy (12/29/23) Left Neck Lymph Node Biopsy(Left) - Yohan Maldonado, DO, FACS History of insertion of central venous access port removed in 2022 History of revision of total replacement of left knee joint History of cardiac cath remote hx over 20 yrs ago, no stents History of colonoscopy History of esophagogastroduodenoscopy (EGD) History of bilateral knee replacement (10/16/22) H/O knee surgery (12/2021) L knee washout w/ polyexchange S/P tonsillectomy and adenoidectomy Status post total shoulder arthroplasty (10/17/18) right History of carpal tunnel release B/L H/O ventral hernia repair History of appendectomy History of cholecystectomy Family History Mother Diabetes Coronary heart disease Myocardial infarction S/P CABG x 3 Hypertension Gallbladder disease Sister Hodgkins lymphoma Brother Kidney disease Grandmother Breast cancer Aunt Ovarian cancer Father , 02/11/20. Peripheral vascular disease Daughter Diabetes Other Cancer No family history of adverse response to anesthesia Denies family history of Prostate cancer Colorectal cancer Social History Smoking Status: Never smoker Tobacco Type: Cigarettes Age Started Using Tobacco: 22; Age Quit Using Tobacco: 24; packs per day: 1; Second Hand Exposure: No; Do You Dip or Chew Tobacco: No; Hx Alcohol Use: No Hx Substance Use: No Preferred Language: Ecuadorean 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 Ability: Effective Visual Impairment: Limited Hearing Ability: Normal Import Manager Required: No Beliefs That Will Affect Care: None marital status: marital status details: ; lives with parents & 1 daughter Current Living Situation: Parent Current Living Situation Comment: lives with her mom and daughter current occupational status: disabled other: worked in [employer] in [place]; worked for [employer] Feels Safe at Home: Yes Childhood Exposure to Second-Hand Smoke: No Diet: regular Diet Comment: regular caffeine: No Dental Care, Regularly: No Physical Activity Frequency: Does not Exercise Seatbelt Use: always Sunscreen Use: Yes Assistive Devices: Walker Review of Systems 2 Review of Systems: See HPI above Physical Exam 2 Physical Exam: General: no acute distress; pleasant affect; non-toxic appearing; well- nourished; cooperative; SpO2 100% on RA HEENT: normocephalic, atraumatic; no scleral icterus; PERRLA w/ EOMs intact; vision and hearing grossly intact Neck: supple; no lymphadenopathy; trachea midline Skin: warm, dry without signs of tenting; no cyanosis; no rashes, bruising, lesions, or erythema noted CV: chest wall NTP; RRR; S1/S2 normal; no murmurs/rubs/gallops; pulses intact and symmetric at radial, DP, and PT Lungs: no acute respiratory distress; symmetrical chest wall expansion; clear breath sounds across all lung razo w/o adventitious sounds; no wheezing ABD: Soft, NTP; BS present; no rebound/guarding; moderate distention secondary to body habitus; suboptimal exam secondary to body habitus MSK: no tics or fasciculations; nonpitting edema in the lower extremities bilaterally extending to the knees Left foot: Erythema on the dorsal aspect of the foot; amputated third digit; 2 cm diabetic foot ulcesr on the medial plantar and sural aspects of the foot with surrounding eschar (see photos below); no purulent drainage appreciated; non- malodorous Neuro: A&Ox3; normal mood and affect; fluent speech; no focal deficits; patient reports diminished sensation in lower extremities bilaterally assessed via light touch Results & Data Results & Data Vital Signs (Past 12 Hours) Vital Signs Temp Pulse Pulse Resp BP BP Pulse Ox 01/08/25 16:52 68 01/08/25 16:39 69 20 135/65 100 01/08/25 13:58 36.9 C 78 20 131/75 97 O2 Del Method 01/08/25 16:52 01/08/25 16:39 Room Air 01/08/25 13:58 Room Air Laboratory Results Abnormal lab results 01/08/25 Range/Units 14:16 MCHC 31.9 L (32.0-36.0) g/dL RDW Coeff of Cleo 15.4 H (11.5-14.5) % Creatinine 1.40 H (0.6-1.2) mg/dl Glucose 105 H (70-99(Fasting)) mg/dl Diagnostic Findings Foot X-Ray 01/08/25 16:52 EXAMINATION: X-ray foot left minimum 3 view routine CLINICAL HISTORY: Possible for infection osteomyelitis PRIORS: 07/23/2024 left foot TECHNIQUE: Frontal, oblique and lateral view FINDINGS: Absence of the third distal, middle and distal aspect of the proximal phalanx noted, appearing in the interval. Mild diffuse osseous demineralization is noted. No erosion, periosteal reaction or subcutaneous gas. Moderate soft tissue swelling of the lateral aspect of the foot noted. Diffuse soft tissue swelling of the forefoot noted on the lateral view. Moderate degenerative change of the midfoot. Large inferior calcaneal spur noted. Enthesophyte of the Achilles insertion present. No radiopaque foreign body. IMPRESSION: No plain film evidence of osteomyelitis. Please follow-up as clinically appropriate. MRI could be considered if clinical concern warrants. Electronically signed by Theresa Sánchez 01-08-2025 6:22 PM Code Status & VTE Plan Code Status Full code VTE Prophylaxis Plan VTE Prophylaxis will be ordered: Yes Supervising Physician Co-Signing Physician Notes Patient was seen and examined independently I discussed the case with Ji Kan PA-C I reviewed pertinent past medical social family history and also the plan of care and agree with the plan of care. Patient presents with worsening of diabetic foot infection. Patient reportedly was at rehab for approximately 2 weeks after discharge been on for about a week. She claims she is trying to stay off of her foot only ambulating short distances but wearing a cam boot. Her left foot dorsum is erythematous the lateral ulcer which is unstageable has a swelling about it and is having some drainage. There is also a blister on the skin just to the lateral aspect of her foot likely from rubbing her cam boot. Patient states this has been worsening for about 3 days and she was sent in by wound care clinic. She has had no fevers or chills at home Assessment to be diabetic foot infection failing outpatient treatment. Patient be admitted for intravenous antibiotics and evaluation for osteomyelitis with likely podiatric consultation. Any exceptions will be noted below PG Care Time/CCT Total # of Minutes Spent Total Time Spent with Patient: Total time spent is greater than 50% in coordination of care (as documented) at patient's floor/unit and/or counseling patient: [place] [address] INT INP/OBS CARE 3/75MIN Patient Type Established Medical Decision Making High Complexity Diagnoses Diabetic ulcer of left midfoot associated with diabetes mellitus due to underlying condition, with fat layer exposed E08.621; L97.422 Diabetic foot ulcer location: midfoot Cellulitis of left foot L03.116 Hx MRSA infection Z86.14 (1) Diabetic ulcer of left foot associated with diabetes mellitus due to underlying condition, with fat layer exposed Diabetic foot ulcer location: midfoot Qualified Code(s): E08.621 - Diabetes mellitus due to underlying condition with foot ulcer; L97.422 - Non-pressure chronic ulcer of left heel and midfoot with fat layer exposed
--- NOTE | 2025-01-08 18:22 | XRay Report ---
EXAMINATION: X-ray foot left minimum 3 view routine CLINICAL HISTORY: Possible for infection osteomyelitis PRIORS: 07/23/2024 left foot TECHNIQUE: Frontal, oblique and lateral view FINDINGS: Absence of the third distal, middle and distal aspect of the proximal phalanx noted, appearing in the interval. Mild diffuse osseous demineralization is noted. No erosion, periosteal reaction or subcutaneous gas. Moderate soft tissue swelling of the lateral aspect of the foot noted. Diffuse soft tissue swelling of the forefoot noted on the lateral view. Moderate degenerative change of the midfoot. Large inferior calcaneal spur noted. Enthesophyte of the Achilles insertion present. No radiopaque foreign body. IMPRESSION: No plain film evidence of osteomyelitis. Please follow-up as clinically appropriate. MRI could be considered if clinical concern warrants. Electronically signed by Theresa Sánchez 01-08-2025 6:22 PM
--- NOTE | 2025-01-08 22:33 | Magnetic Resonance Report ---
Exam(s): MRI LEFT FOOT Without Contrast EXAM: MR Left Lower Extremity Without Intravenous Contrast, Foot CLINICAL HISTORY: Reason for exam: Osteomyelitis r/o. TECHNIQUE: Multiplanar magnetic resonance images of the left foot without intravenous contrast. COMPARISON: X-ray 01/08/2025. FINDINGS: Images are degraded by motion artifact. Amputation of the third digit. Normal marrow signal. No evidence of acute osteomyelitis. Soft tissue ulcer adjacent to the fifth metatarsal base. Skin thickening and soft tissue edema. No joint effusion or fluid collection. IMPRESSION: 1. Soft tissue ulceration along the lateral forefoot with skin thickening. No evidence of osteomyelitis. Electronically signed by: Terence Marina MD 01/08/25 22:32 PM
[2025-01-08] MEDS ORDERED: GLUCAGON FOR INJ 1 MG VIAL SQ PRN (22:35)
[2025-01-08] MEDS ORDERED: ALBUTEROL 0.083% NEBU SOLN 3 ML VIAL INH PRN (22:35)
[2025-01-08] MEDS ORDERED: MELATONIN 3 MG TAB PO PRN (22:35)
[2025-01-08] MEDS ORDERED: GLUCOSE 10 TAB/TUBE PO PRN (22:35)
[2025-01-08] MEDS ORDERED: DEXTROSE 50% 50 ML SYRINGE IV PRN (22:35)
[2025-01-08] MEDS ORDERED: ALBUTEROL HFA 8 GM INHALER INH PRN (22:35)
[2025-01-08] MEDS ORDERED: CARBOHYDRATES FOR HYPOGLYCEMIA PO PRN (22:35)
[2025-01-08] MEDS ORDERED: GLUCOSE 40% GEL 15 GM TUBE PO PRN (22:35)
--- NOTE | 2025-01-08 22:37 | Magnetic Resonance Report ---
Exam(s): MRI LEFT ANKLE Without Contrast EXAM: MR Left Lower Extremity Without Intravenous Contrast, Ankle CLINICAL HISTORY: Reason for exam: assess for osteo. TECHNIQUE: Multiplanar magnetic resonance images of the left ankle without intravenous contrast. COMPARISON: X-ray 01/08/2025. FINDINGS: Artifacts: Images are degraded by motion artifact. LIGAMENTS: Anterior talofibular: Unremarkable. Posterior talofibular: Unremarkable. Anterior tibiofibular: Unremarkable. Posterior tibiofibular: Unremarkable. Calcaneofibular: Unremarkable. Deltoid: Unremarkable. Spring: Unremarkable. Lisfranc: Unremarkable. TENDONS: Achilles: Unremarkable. Flexor: Unremarkable. Extensor: Unremarkable. Peroneal: Unremarkable. Tibialis anterior: Unremarkable. Tibialis posterior: Unremarkable. Muscles: Unremarkable. Fluid: Unremarkable. No joint effusion. Sinus tarsi: Unremarkable. Tarsal tunnel: Unremarkable. Plantar fascia: Unremarkable. Cartilage: Unremarkable. Bones/joints: Normal marrow signal. No evidence of acute osteomyelitis. Soft tissues: Circumferential subcutaneous soft tissue edema. No fluid collection. Soft tissue ulcer adjacent to the base of the fifth metatarsal. IMPRESSION: Normal marrow signal. No evidence of acute osteomyelitis. Electronically signed by: Terence Marina MD 01/08/25 22:35 PM
[2025-01-08] MEDS ORDERED: EPINEPHrine INJ 1 MG/ML AMP IM PRN (23:08)
[2025-01-08] MEDS: INSULIN ASPART PER UNIT CHARGE SC SCH (23:33)
[2025-01-08] MEDS: HEPARIN SOD 5,000 UNIT/0.5 ML VIAL SQ SCH (23:34)
[2025-01-08] MEDS: SENNA 8.6 MG TAB PO SCH (23:37)
[2025-01-08] MEDS: MONTELUKAST SODIUM 10 MG TABLET PO SCH (23:39)
[2025-01-08] MEDS: GABAPENTIN 400 MG CAP PO SCH (23:40)
[2025-01-08] MEDS: CETIRIZINE HCL 10 MG TABLET PO SCH (23:40)
[2025-01-08] MEDS: busPIRone 15 MG TAB PO SCH (23:41)
[2025-01-08] MEDS: CHOLECALCIFEROL 25 MCG (1000 UNITS) TAB PO SCH (23:41)
[2025-01-08] MEDS: FAMOTIDINE 40 MG TABLET PO SCH (23:42)
[2025-01-08] MEDS: DICLOFENAC SOD 1% GEL 100 GM TUBE EXT SCH (23:43)
[2025-01-08] MEDS: SPIRONOLACTONE 25 MG TAB PO SCH (23:46)
[2025-01-09] MEDS: metroNIDAZOLE 500 MG/100 ML BAG IV SCH (01:46)
[2025-01-09] MEDS: CEFEPIME 2000MG 2,000 MG/20 ML SYR IV SCH (01:47)
[2025-01-09] MEDS: ACETAMINOPHEN 325 MG TAB PO PRN (03:03)
[2025-01-09 06:19] LABS: Hematocrit (blood only) 34.9 % (37.0-47.0); Hemoglobin 11.4 g/dl (12.0-16.0); Mean Corpuscular Hemoglobin 27.0 pg (25.0-34.0); Mean Corpuscular Volume 82.5 fL (80.0-100.0); Platelet Count 241 K/uL (130-400); RDW Standard Deviation 45.2 fL (36.4-46.3); Red Blood Count 4.23 M/uL (4.20-5.40); White Blood Count 7.48 K/ul (4.8-10.8)
[2025-01-09 06:54] LABS: Anion Gap 4.0 (3-11); Blood Urea Nitrogen 13.0 mg/dl (6-23); Calcium 8.6 mg/dl (8.6-10.3); Carbon Dioxide 30.0 mmol/L (21-32); Chloride 106.0 mmol/L (98-107); Creatinine Clr Calc Pharmacy 79.2 ml/min; Glucose 90.0 mg/dl (70-99(Fasting)); Potassium 3.6 mmol/L (3.5-5.1); Sodium 140.0 mmol/L (136-145)
[2025-01-09 07:49] LABS: Hemoglobin A1C 5.5 % (4.5-5.6)
[2025-01-09] MEDS: LOSARTAN POTASSIUM 25 MG TAB PO SCH (09:19)
[2025-01-09] MEDS: POTASSIUM CHLORIDE CRTAB 20 MEQ TABCR PO SCH (09:19)
[2025-01-09] MEDS: METOPROLOL SUCC 25MG EXT REL TAB PO SCH (09:19)
[2025-01-09] MEDS: ASPIRIN 81 MG ECTAB PO SCH (09:20)
[2025-01-09] MEDS: EMPAGLIFLOZIN 10 MG TAB PO SCH (09:21)
[2025-01-09] MEDS: POLYETHYLENE (MIRALAX) 17 GM PACK PO SCH (09:21)
--- NOTE | 2025-01-09 11:11 | Hospitalist Progress Note ---
"Date of Service January 09, 2025 Assessment & Plan (1) Diabetic ulcer of left foot associated with diabetes mellitus due to u nderlying condition, with fat layer exposed: (2) Cellulitis of left foot: (3) Hx MRSA infection: Plan This patient is a 64-year-old female with PMH of T2DM who presents on 01/08 at the behest of the wound care clinic for a left diabetic foot infection. 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 H/o MRSA infection + reported drainage from the ulcers on 01/08. #Left diabetic foot ulcer/infection | cellulitis Preliminary wound culture on 01/09 growing Staphylococcus aureus Left foot/ankle MRI did not reveal evidence of acute osteomyelitis Most recent blood culture on 12/06/2024 grew Staphylococcus lugdunensis (pansensitive) Most recent wound culture on 11/07/2024 grew MRSA + Proteus mirabilis Contact isolation precautions given history of MRSA Antibiotic regimen as follows: Daptomycin 900 mg IV q24h Cefepime 2000 mg IV q8h Metronidazole 500mg IV q12h Pain control with acetaminophen and oxycodone 5-10 mg p.o. PRN Bowel regimen: MiraLAX 17 g daily + Senna BID Daily wound care Wound care nurse consult appreciated Podiatry consult appreciated PT/OT evaluations appreciated Nonweightbearing on the left foot Suspect there may be a compensatory/overuse injury to the right hip due to patient putting increased weight on the leg while at home #T2DM With neuropathy, on gabapentin A1c 5.5% on 01/09/2025 Hold Jardiance Loose SSI with target BSG range 110-150mg/dL, CF 40, carb ratio deferred T2DM diet BSG ACHS Adjust regimen as needed #HFpEF Daily weights Strict I&O monitoring Continue Jardiance Continue torsemide 60mg p.o. BID Continue spironolactone 25 mg p.o. daily # Chronic back pain Currently taking oxycodone 5 mg tablets; prescribed in December 2024; indepen dently verified in PDMP Oxycodone for left foot pain (as above) Diclofenac gel application QID #ANDRZEJ CPAP HS #HTN Continue losartan, metoprolol #CKD, stage IIIa/b Follows with nephrology, most recent visit 10/20/2024. Baseline Cr 1.4-1.5; Cr at admission 1.40 -- BMP am Caution use of nephrotoxic agents #Gout Continue allopurinol #Asthma | Allergies Continue cetirizine, hydroxyzine, montelukast, inhaler, and nebs #Anxiety | Depression Continue buspirone, bupropion, duloxetine #GERD Continue famotidine, pantoprazole, and sucralfate PRN #H/o CVA April 2017; continue aspirin Disposition: Continued stay on MedSurg pending wound/blood cultures + PT/OT evaluations VTE PPx: Heparin 7500 mg SQ q12h Admission and Anticipated Discharge Date Admission Date: January 08, 2025 Subjective Mrs. Tristan is still having significant pain this morning, but reports it is ma inly in the right lower extremity extending from her thigh up into her hip. Patient reports the pain in her left foot is about a 7 out of 10, but the pain in her right thigh is a 9 out of 10. Patient reports she cannot use lidocaine patches due to her allergy to adhesives. She does report that the oxycodone 10 mg tablets have been helping. Other than that, she reports she has no new complaints at this time. ROS: Patient endorses right hip pain, left foot pain, and neuropathy in the legs bilaterally (chronic). Patient denies any fevers, chills, night sweats, chest pain, SOB, abdominal pain , or N/V/D. Review of Systems Review of Systems: See HPI above Physical Exam Physical Exam: General: no acute distress; pleasant affect; patient is sitting upright in her bed and doing a crossword puzzle; non-toxic appearing; well-nourished; cooperative; SpO2 90% on RA HEENT: normocephalic, atraumatic; no scleral icterus; PERRLA; vision and hearing intact Neck: supple; trachea midline Skin: warm, dry without signs of tenting; no cyanosis; no rashes, bruising, lesions, or erythema noted CV: chest wall NTP; RRR; S1/S2 normal; no murmurs/rubs/gallops; pulses intact and symmetric at radial, DP, and PT Lungs: no acute respiratory distress; symmetrical chest wall expansion; clear breath sounds across all lung razo w/o adventitious sounds; no wheezing ABD: Soft, NTP; BS present; no rebound/guarding; suboptimal exam secondary to body habitus MSK: no tics or fasciculations; no edema noted in the LEs b/l, nonerythematous Lower extremities: Left foot is wrapped, but patient does demonstrate the ability to wiggle her toes in both feet bilaterally Neuro: A&Ox3; normal mood and affect; fluent speech; no focal deficits; she reports no sensation in the lower extremities bilaterally assessed via light to uch at the toes Results & Data Results & Data Vital Signs (Past 12 Hours) Vital Signs Temp Pulse Resp BP Pulse Ox O2 Del Method 01/09/25 07:08 36.4 C L 68 17 111/68 97 Room Air PG Care Time/CCT Total # of Minutes Spent Total Time Spent with Patient: Total time spent is greater than 50% in coordination of care (as documented) at patient's floor/unit and/or counseling patient: Coding [place] [address] SUB INP/OBS CARE 3/50MIN Patient Type Established History Comprehensive Exam Comprehensive Medical Decision Making High Complexity Diagnoses Diabetic ulcer of left midfoot associated with diabetes mellitus due to underlying condition, with fat layer exposed E08.621; L97.422 Diabetic foot ulcer location: midfoot Cellulitis of left foot L03.116 Hx MRSA infection Z86.14 (1) Diabetic ulcer of left foot associated with diabetes mellitus due to underlying condition, with fat layer exposed Diabetic foot ulcer location: midfoot Qualified Code(s): E08.621 - Diabetes mellitus due to underlying condition with foot ulcer; L97.422 - Non-pressure chronic ulcer of left heel and midfoot with fat layer exposed"
[2025-01-09] MEDS: DAPTOmycin 600 MG in SYRINGE 0 ML IV SCH (18:12)
--- NOTE | 2025-01-09 23:03 | Podiatry Consultation ---
Date of Consultation January 09, 2025 Assessment & Plan (1) Cellulitis of foot, left: (2) Diabetic ulcer of left foot: Diabetic foot ulcer location: midfoot Non-pressure ulcer stage: unspecified non-pressure ulcer stage Diabetes mellitus type: type 2 Qualified Code(s): E11.621 - Type 2 diabetes mellitus with foot ulcer; L97.429 - Non- pressure chronic ulcer of left heel and midfoot with unspecified severity (3) Diabetic ulcer of left foot associated with diabetes mellitus due to underlying condition, with fat layer exposed: Diabetic foot ulcer location: midfoot Qualified Code(s): E08.621 - Diabetes mellitus due to underlying condition with foot ulcer; L97.422 - Non- pressure chronic ulcer of left heel and midfoot with fat layer exposed (4) Diabetic foot infection: Plan Diabetic ulcer left foot x 2, Cellulitis left foot: - Nonweightbearing left foot. Continue CAM boot to right foot for transfers. - Continue once daily dressing change to plantar left foot wounds with Aquacel Ag and a dry sterile dressing. - Change dressing to the dorsal abrasion of the left foot with Aquacel Ag and a dry sterile dressing daily. - Elevate feet to help reduce fluid accumulation and promote healing - Protect heels to prevent breakdown - Wound Culture left foot 01/08: Preliminary growing Staph aureus - Continues IV Daptomycin, Cefepime, Metronidazole History of Present Illness Reason for Consultation: Diabetic ulcer left foot x 2 Attending Physician: Sundeep Painter MD History of Present Illness Trevor is a 64-year-old female past medical history significant for type 2 diabetes with diabetic peripheral neuropathy and history of left third digit amputation, chronic diabetic ulceration x 2 to the plantar left foot, HFpEF and RV dysfunction who presents to [facility] emergency department 01/09/2025 with following follow-up in the wound center earlier today as she was noted to have increased redness swelling and drainage to the left foot. She denies nausea vomiting fever chills. Reports increased pain in the left foot over the last 48 hours. Unfortunately this is patient's fourth hospitalization this year for management of her foot wounds which remain open on the left foot. While patient has been hospitalized and with subsequent stays in care home facilities wounds generally show relatively the rapid improvement due to patient's limited weightbearing requirement. However, on return home patient is unable to limit weightbearing and wounds quickly regress and have had multiple recurrent infections over the past 6 months. Patient's case is complicated by instability of gait, morbid obesity, lymphedema, availability of transportation. She is unable to remain nonweightbearing to the left foot in her home and has primarily been weightbearing in a cam walker which has proven to be insufficient to offload her ulcerations. Most recently after failing multiple attempts to place the left lower extremity in a total contact cast we initiated a trial of "football dressings" which were being changed every Wednesday in the wound care center. This modality initially showed promise however unfortunately the increased time of wear from Wednesday to Wednesday patient had excess drainage from the wound left subfifth metatarsal head and subsequently developed infection in the left foot. White blood count on admission is 8.72, ESR 65, CRP 3.09. MRI left foot with no evidence of osteomyelitis. Allergies Allergy/AdvReac Type Severity Reaction Status Date / Time Corticosteroids Allergy Severe Anaphylaxis Verified 01/08/25 18:37 (Glucocorticoids) clindamycin Allergy Intermediate Rash Verified 01/08/25 18:37 dog dander Allergy Intermediate Rash Verified 01/08/25 18:37 iron [From Venofer] Allergy Intermediate Rash Verified 01/08/25 18:37 morphine Allergy Intermediate mouth and Verified 01/08/25 18:37 face swells Penicillins Allergy Intermediate rash/hives Verified 01/08/25 18:37 adhesive Allergy Mild Skin rash Verified 01/08/25 18:37 localized zolpidem Allergy Unknown Unknown Verified 01/08/25 18:37 pregabalin AdvReac Intermediate "makes Verified 01/08/25 18:37 goofy" Home Medications Medication Instructions Recorded Confirmed Type calcium carbonate (Tums) 900 mg PO QAM 03/03/22 01/08/25 History cyanocobalamin (vitamin B-12) 1,000 mcg PO QAM 03/03/22 01/08/25 History 1,000 mcg tablet (Vitamin B-12) albuterol sulfate 2.5 mg/3 mL 2.5 mg (3 mL) inhalation Q6H PRN 06/25/23 01/08/25 Rx (0.083 %) solution for nebulization Shortness Of Breath #90 mL aspirin 81 mg tablet,delayed 81 mg PO QAM 06/25/23 01/08/25 History release diclofenac sodium 1 % topical gel 4 g EXT QID #1 tube 08/30/23 01/08/25 Rx (Voltaren Arthritis Pain) nystatin 100,000 unit/gram topical 1 applic topical TID PRN yeast 08/30/23 01/08/25 Rx powder rash under breasts, abdominal skin folds #30 grams CPAP Supplies #1 ea 09/28/23 01/08/25 Rx CPAP Machine #1 ea 09/29/23 01/08/25 Rx cetirizine 10 mg tablet (Zyrtec) 10 mg PO BID 10/20/23 01/08/25 History empagliflozin 10 mg tablet 10 mg PO QAM #90 tabs 12/02/23 01/08/25 Rx (Jardiance) montelukast 10 mg tablet 10 mg PO QPM #90 tabs 01/03/24 01/08/25 Rx (Singulair) albuterol sulfate 90 mcg/actuation 2 puff inhalation Q4H PRN 01/04/24 01/08/25 Rx aerosol inhaler (Ventolin HFA) Shortness Of Breath Or Wheezing #18 grams epinephrine 0.3 mg/0.3 mL 0.3 mg IM UD PRN anaphylaxis 01/06/24 01/08/25 History injection, auto-injector acetaminophen 500 mg tablet 1,000 mg (2 x 500 mg) PO TID PRN 02/04/24 01/08/25 Rx fever or pain #90 tabs bupropion HCl 150 mg 24 hr tablet, 150 mg PO QAM #90 tabs 06/08/24 01/08/25 Rx extended release gabapentin 400 mg capsule 400 mg PO QID #360 caps 06/30/24 01/08/25 Rx losartan 25 mg tablet 25 mg PO QAM 07/23/24 01/08/25 History nystatin 100,000 unit/gram topical 1 applic EXT TID PRN FLARE 07/23/24 01/08/25 History ointment sucralfate 1 gram tablet (Carafate) 1 g PO AC PRN heartburn #30 tabs 07/31/24 01/08/25 Rx buspirone 15 mg tablet 15 mg PO QID 08/01/24 01/08/25 History cholecalciferol (vitamin D3) 50 2,000 unit PO TID 09/01/24 01/08/25 History mcg (2,000 unit) capsule (Vitamin D3) hydroxyzine HCl 25 mg tablet 25 mg PO HS 09/01/24 01/08/25 History oxycodone 5 mg tablet 5 mg PO Q4H PRN pain #30 tabs 09/12/24 01/08/25 Rx allopurinol 100 mg tablet 100 mg PO BID #180 tabs 09/13/24 01/08/25 Rx sennosides 8.6 mg tablet (Senokot) 17.2 mg PO BID 10/06/24 01/08/25 History famotidine 40 mg tablet 40 mg PO QPM 10/23/24 01/08/25 History gentamicin 0.1 % topical ointment 1 applic topical DAILY 2 weeks #30 11/09/24 01/08/25 Rx grams spironolactone 25 mg tablet 25 mg PO BID #180 tabs 12/01/24 01/08/25 Rx polyethylene glycol 3350 17 17 g PO DAILY PRN Constipation 12/06/24 01/08/25 History gram/dose oral powder (Miralax) pantoprazole 40 mg tablet,delayed 40 mg PO BID #90 tabs 12/07/24 01/08/25 Rx release (Protonix) potassium chloride 20 mEq 20 meq PO QAM #90 tabs 12/18/24 01/08/25 Rx tablet,extended release(part/cryst) (Klor-Con M) torsemide 20 mg tablet 60 mg (3 x 20 mg) PO Q2D #30 tabs 12/18/24 01/08/25 Rx duloxetine 60 mg capsule,delayed 60 mg PO BID 01/08/25 01/08/25 History release metoprolol succinate 25 mg 25 mg PO QAM 01/08/25 01/08/25 History tablet,extended release 24 hr multivitamin (Daily-Holli tablet) 1 tab PO QAM 01/08/25 01/08/25 History tramadol 50 mg tablet 50 mg PO BID PRN pain #30 tabs 01/08/25 01/08/25 Rx Patient History Medical History Diabetes Acute kidney injury superimposed on stage 3b chronic kidney disease Acute UTI (urinary tract infection) Sepsis Diabetic foot ulcer Abdominal wall cellulitis Hypokalemia Mast cell disease B-cell lymphoma Hx-TIA (transient ischemic attack) 2017 > ASA for prevention > no residual effects Hx of sepsis 09/2021 r/t left knee infection Hypertension Lumbar spinal stenosis Arthritis Allergic rhinitis Gout Other ovarian cyst, left side present, just monitoring Acid reflux Severe obstructive sleep apnea cpap Stage 3 chronic kidney disease follows with Dr. Wood Fatty liver CHF (congestive heart failure) follows with Ashlyn Gaby Solitary kidney, congenital Diabetes mellitus, type 2 Ulcer of foot one ulcer present to bottom of bilat feet > follows with wound clinic at [facility], improving per pt History of COVID-19 09/2021 Iron deficiency anemia Venous stasis of both lower extremities MDD (major depressive disorder), recurrent episode, moderate Ambulatory dysfunction uses walker Depression with anxiety Degenerative joint disease, shoulder, right Lymphedema left leg and abdomen / chronic Asthma well controlled, rare res inh use Hyperlipidemia no meds Surgical History Hx of biopsy (12/29/23) Left Neck Lymph Node Biopsy(Left) - Yohan Maldonado, DO, FACS History of insertion of central venous access port removed in 2022 History of revision of total replacement of left knee joint History of cardiac cath remote hx over 20 yrs ago, no stents History of colonoscopy History of esophagogastroduodenoscopy (EGD) History of bilateral knee replacement (10/16/22) H/O knee surgery (12/2021) L knee washout w/ polyexchange S/P tonsillectomy and adenoidectomy Status post total shoulder arthroplasty (10/17/18) right History of carpal tunnel release B/L H/O ventral hernia repair History of appendectomy History of cholecystectomy Family History Mother Diabetes Coronary heart disease Myocardial infarction S/P CABG x 3 Hypertension Gallbladder disease Sister Hodgkins lymphoma Brother Kidney disease Grandmother Breast cancer Aunt Ovarian cancer Father , 02/11/20. Peripheral vascular disease Daughter Diabetes Other Cancer No family history of adverse response to anesthesia Denies family history of Prostate cancer Colorectal cancer Social History Smoking Status: Never smoker Tobacco Type: Cigarettes Age Started Using Tobacco: 22; Age Quit Using Tobacco: 24; packs per day: 1; Second Hand Exposure: No; Do You Dip or Chew Tobacco: No; Hx Alcohol Use: No Hx Substance Use: No Preferred Language: Korean 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 Ability: Effective Visual Impairment: Limited Hearing Ability: Normal Software Specialist Required: No Beliefs That Will Affect Care: None marital status: marital status details: ; lives with parents & 1 daughter Current Living Situation: Parent Current Living Situation Comment: lives with her mom and daughter current occupational status: disabled other: worked in [employer] in [employer]; worked for [employer] district Feels Safe at Home: Yes Childhood Exposure to Second-Hand Smoke: No Diet: regular Diet Comment: regular caffeine: No Dental Care, Regularly: No Physical Activity Frequency: Does not Exercise Seatbelt Use: always Sunscreen Use: Yes Assistive Devices: Walker Review of Systems Review of Systems: Denies nausea, vomiting, or, chills.Denies shortness of breath or chest pain.Reports increased pain in the left foot specifically to the left heel. Physical Exam Physical Exam: Const: Appears well developed and well nourished. Obese. No signs of acute distress present. CV: Extremities: No cyanosis. Bilateral lower extremity edema left greater than right. Capillary refill time is less than 2 seconds all digits of the bilateral foot. Posterior tibial and dorsalis pedis pulses are palpable bilateral. Skin: Thin atrophic skin with loss of hair growth bilateral lower extremity below the knee with stasis changes to the skin bilateral. Neuro: Loss of protective sensation to toes bilateral. Diminished protective sensation to bilateral plantar foot. Notable pain to palpation areas of ulceration. Psych: Mood/Affect: Mood is normal. Affect is normal. Cognition: Orientation is intact to person, place and time. Focused lower extremity musculoskeletal exam: Abnormal gait pattern with sh uffling of feet and heavy heel strike. Uses a walker for ambulation. Leg: No pain with compression of the calf muscle. Lymphedema bilateral leg left greater than right. Ankles: Normal to inspection and palpation. No tenderness bilaterally. Motor strength is intact. Range of motion pain-free and unlimited. Posterior lateral right ankle is evaluated with no signs of external injury. There is a firm well-circumscribed 1.6 cm diameter subcutaneous soft tissue mass/nodule no signs of local soft tissue irritation or infection. On palpation there is generalized tenderness which is noted bilaterally. Feet: Bilateral flatfoot deformity. Right foot: Plantar diabetic foot ulceration. With dry stable blood-tinged hype rkeratotic tissue. No signs of local soft tissue infection Left foot: Well-healed third digit amputation. Diabetic ulceration subfifth metatarsal base: Moderate serous drainage to the dressing. Slough to the wound bed. Wound does not probe or track in any direction. Periwound erythema and edema. Diabetic ulceration subfirst metatarsal head: Healthy granular wound bed. Wound does not probe or track in any direction. No undermining. Scant serous drainage to the dressing. No signs of local soft tissue infection. Results & Data Vital Signs (Past 12 Hours) Vital Signs Temp Pulse Resp BP Pulse Ox O2 Del Method 01/09/25 22:15 36.4 C L 65 18 132/84 95 Room Air 01/09/25 15:56 36.4 C L 57 L 17 109/70 97 Room Air PG Care Time/CCT Total # of Minutes Spent Total Time Spent with Patient: Total time spent is greater than 50% in coordination of care (as documented) at patient's floor/unit and/or counseling patient: Coding Level of Care Code 65764 INT INP/OBS CARE 2/55MIN Diagnoses Cellulitis of foot, left L03.116 Diabetic ulcer of left midfoot associated with type 2 diabetes mellitus, unspecified ulcer stage E11.621; L97.429 Diabetic foot ulcer location: midfoot Non-pressure ulcer stage: unspecified non-pressure ulcer stage Diabetes mellitus type: type 2 Diabetic ulcer of left midfoot associated with diabetes mellitus due to underlying condition, with fat layer exposed E08.621; L97.422 Diabetic foot ulcer location: midfoot Diabetic foot infection E11.628; L08.9
[2025-01-10] MEDS: TORSEMIDE 20 MG TAB PO SCH (08:43)
--- NOTE | 2025-01-10 10:30 | Hospitalist Progress Note ---
Date of Service January 10, 2025 Assessment & Plan (1) Diabetic ulcer of left foot associated with diabetes mellitus due to u nderlying condition, with fat layer exposed: (2) Cellulitis of left foot: (3) Hx MRSA infection: Plan This patient is a 64-year-old female with PMH of T2DM who presents on 01/08 at the behest of the wound care clinic for a left diabetic foot infection. Worsening x 2 days [employer]. H/o MRSA infection + reported drainage from the ulcers on 01/08. #Left diabetic foot ulcer/infection | cellulitis | right thigh pain Left foot/ankle MRI did not reveal evidence of acute osteomyelitis Wound culture finalized on 01/10 growing Staphylococcus aureus Maintain contact isolation precautions in the setting of recent MRSA infection Recommend f/u nasal swab on 01/14; if negative, can d/c MRSA isolation precautions Will adjust antibiotics to the following: Cefazolin 2 g IV q8h Metronidazole 500 mg p.o. q12h Suspect there may be a compensatory/overuse injury to the right hip/IT band due to patient putting increased weight on that leg at home Pain control with acetaminophen and oxycodone 5-10 mg p.o. PRN Bowel regimen: MiraLAX 17 g daily + Senna BID Daily wound care Wound care nurse consult appreciated Podiatry consult appreciated PT/OT evaluations appreciated Nonweightbearing on the left foot Per PT eval on 01/10, patient would benefit from SNF level rehab following admission CM following #T2DM With neuropathy, on gabapentin A1c 5.5% on 01/09/2025 Hold Jardiance Loose SSI with target BSG range 110-150mg/dL, CF 40, carb ratio deferred T2DM diet BSG ACHS Adjust regimen as needed #HFpEF Daily weights Strict I&O monitoring Continue Jardiance Continue torsemide 60mg p.o. BID Continue spironolactone 25 mg p.o. daily # Chronic back pain Currently taking oxycodone 5 mg tablets; prescribed in December 2024; independently verified in PDMP Oxycodone for left foot pain (as above) Diclofenac gel application QID #ANDRZEJ CPAP HS #HTN Continue losartan, metoprolol #CKD, stage IIIa/b Follows with nephrology, most recent visit 10/20/2024. Baseline Cr 1.4-1.5; Cr at admission 1.40 -- BMP am Caution use of nephrotoxic agents #Gout Continue allopurinol #Asthma | Allergies Continue cetirizine, hydroxyzine, montelukast, inhaler, and nebs #Anxiety | Depression Continue buspirone, bupropion, duloxetine #GERD Continue famotidine, pantoprazole, and sucralfate PRN #H/o CVA April 2017; continue aspirin Disposition: Continued stay on MedSurg VTE PPx: Heparin 7500 mg SQ q12h Admission and Anticipated Discharge Date Admission Date: January 08, 2025 Subjective Mrs. Tristan is doing well this morning. She reports that the pain in the bottom of her foot is improved from prior. However she is still having significant pain extending from her right coles up into her hip and lower back. She believes this is due to compensating for not putting weight on her left foot. She reports the pain in her right hip/lower back is an 8 out of 10. She reports the pain in her back is "crippled" whenever she gets up to walk on it. In regard to her penicillin allergy, she reports she had impetigo when she was a kid (60 years ago); she has not taken penicillin since. However she reports she has been tolerating the cefepime well while in the hospital. Her only other concern at this time is that she has some swelling in her left lower extremity. She denies prior history of DVT/PE. ROS: Patient endorses mild pain in the sole of the left foot, as well as more severe pain in the right coles extending up to the right hip and lower back. Patient denies fever, chest pain, SOB, abdominal pain, or N/V. Review of Systems Review of Systems: See HPI above Physical Exam Physical Exam: General: no acute distress; pleasant affect; sitting upright on the side of the bed; non-toxic appearing; well-nourished; cooperative; SpO2 95% on RA HEENT: normocephalic, atraumatic; no scleral icterus; PERRLA; vision and hearing intact Neck: supple; trachea midline Skin: warm, dry without signs of tenting; no cyanosis; no rashes, bruising, lesions, or erythema noted CV: chest wall NTP; RRR; S1/S2 normal; no murmurs/rubs/gallops; pulses intact and symmetric at radial, DP, and PT Lungs: no acute respiratory distress; symmetrical chest wall expansion; clear breath sounds across all lung razo w/o adventitious sounds; no wheezing ABD: Soft, NTP; BS present; no rebound/guarding; suboptimal exam secondary to body habitus Back: Upper spine NTP; lower spine TTP just above the sacrum MSK: no tics or fasciculations; nonpitting edema in the lower extremities bilaterally (L>R) Lower extremities: Left foot is wrapped, but patient does demonstrate the ability to wiggle her toes in both feet bilaterally Neuro: A&Ox3; normal mood and affect; fluent speech; no focal deficits; she reports no sensation in the lower extremities bilaterally assessed via light sumit ch at the toes; she does have sensations bilaterally Results & Data Results & Data Vital Signs (Past 12 Hours) Vital Signs Temp Pulse Resp BP Pulse Ox O2 Del Method 01/10/25 07:30 36.6 C 61 16 115/68 95 Room Air PG Care Time/CCT Total # of Minutes Spent Total Time Spent with Patient: Total time spent is greater than 50% in coordination of care (as documented) at patient's floor/unit and/or counseling patient: Coding [place] [address] SUB INP/OBS CARE 3/50MIN Patient Type Established History Comprehensive Exam Comprehensive Medical Decision Making High Complexity Diagnoses Diabetic ulcer of left midfoot associated with diabetes mellitus due to underlying condition, with fat layer exposed E08.621; L97.422 Diabetic foot ulcer location: midfoot Cellulitis of left foot L03.116 Hx MRSA infection Z86.14 (1) Diabetic ulcer of left foot associated with diabetes mellitus due to underlying condition, with fat layer exposed Diabetic foot ulcer location: midfoot Qualified Code(s): E08.621 - Diabetes mellitus due to underlying condition with foot ulcer; L97.422 - Non-pressure chronic ulcer of left heel and midfoot with fat layer exposed
[2025-01-10] MEDS: metroNIDAZOLE 500 MG TAB PO SCH (21:27)
--- NOTE | 2025-01-10 22:51 | Podiatry Progress Note ---
Date of Service January 10, 2025 Assessment & Plan (1) Cellulitis of foot, left: (2) Diabetic ulcer of left foot: (3) Diabetic ulcer of left foot associated with diabetes mellitus due to underlying condition, with fat layer exposed: Plan Diabetic ulcer left foot x 2, Cellulitis left foot: -Left foot wounds debrided as detailed in procedure note below. - Nonweightbearing left foot. Continue CAM boot to right foot for transfers. - Continue once daily dressing change to plantar left foot wounds with Aquacel Ag and a dry sterile dressing. - Change dressing to the dorsal abrasion of the left foot with Aquacel Ag and a dry sterile dressing daily. - Elevate feet to help reduce fluid accumulation and promote healing - Protect heels to prevent breakdown - Wound Culture left foot 01/08: Staph aureus - MRI results 01/08 reviewed: No evidence of osteomyelitis - Continues IV cefazolin, Metronidazole Patient would benefit from discharge to [facility]. She will is unable to remain nonweightbearing to the left foot in her home. As an outpatient she exhausted all feasible means of offloading to the left foot and her wounds continue to decline and ultimately fail requiring rehospitalization once she returns to home. Surgical Excisional Debridement: Indication:Removal of necrotic tissue to promote healing Pre-op diagnosis: diabetic ulcer subfifth metatarsal base left, diabetic ulcer subfirst metatarsal head left Post-op diagnosis: Same Procedure: Surgical excisional debridement left subfifth metatarsal base and subfirst metatarsal head left ulceration Surgeon: Jerrell Somers DPM Anesthesia: None Bleeding:Minimal Disposition: Tolerated well Procedure: Informed consent obtained, Time Out taken. Patient understands and agrees to procedure. Excisional debridement was carried out of bilateral subfifth metatarsal base ulceration and left subfirst metatarsal head ulceration consisting of hyperkeratotic, slough, fibrotic and subcutaneous tissue was carried out utilizing a curette and 15 blade. Anesthesia-none. Patient tolerated the procedure well. Bleeding-minimal. Controlled with-direct pressure. Post-debridement measurements: left foot subfifth metatarsal base: 1.5 x 1.0 x 0.4 cm. Left foot subfirst met head: 1.0 x 0.7 x 0.3 cm. A total of 2.2 cm2 were debrided. (2) Abrasion, left foot, initial encounter: Admission and Anticipated Discharge Date Admission Date: January 08, 2025 Subjective Kriss is seen resting comfortably in hospital bed. Denies nausea vomiting fever chills. Reports persistent pain to the left plantar foot. Dressing remains clean dry and intact to the left foot. Reports remaining nonweightbearing since admission to the hospital. Review of Systems Review of Systems: Denies nausea vomiting fever chills. Reports pain to the left foot. All other systems reviewed and negative unless otherwise stated in subjective. Physical Exam Physical Exam: Const: Appears well developed and well nourished. Obese. No signs of acute distress present. CV: Extremities: No cyanosis. Bilateral lower extremity edema left greater than right. Capillary refill time is less than 2 seconds all digits of the bilateral foot. Posterior tibial and dorsalis pedis pulses are palpable bilateral. Skin: Thin atrophic skin with loss of hair growth bilateral lower extremity below the knee with stasis changes to the skin bilateral. Neuro: Loss of protective sensation to toes bilateral. Diminished protective sensation to bilateral plantar foot. Notable pain to palpation areas of ulceration. Psych: Mood/Affect: Mood is normal. Affect is normal. Cognition: Orientation is intact to person, place and time. Focused lower extremity musculoskeletal exam: Abnormal gait pattern with shuffling of feet and heavy heel strike. Uses a walker for ambulation. Leg: No pain with compression of the calf muscle. Lymphedema bilateral leg left greater than right. Ankles: Normal to inspection and palpation. No tenderness bilaterally. Motor strength is intact. Range of motion pain-free and unlimited. Posterior lateral right ankle is evaluated with no signs of external injury. There is a firm well-circumscribed 1.6 cm diameter subcutaneous soft tissue mass/nodule no signs of local soft tissue irritation or infection. On palpation there is gener alized tenderness which is noted bilaterally. Feet: Bilateral flatfoot deformity. Right foot: Plantar diabetic foot ulceration. With dry stable blood-tinged hyperkeratotic tissue. No signs of local soft tissue infection Left foot: Well-healed third digit amputation. Diabetic ulceration subfifth metatarsal base: Moderate serous drainage to the dressing. Slough to the wound bed. Wound does not probe or track in any direction. Periwound erythema and edema. Diabetic ulceration subfirst metatarsal head: Healthy granular wound bed. Wound does not probe or track in any direction. No undermining. Scant serous drainage to the dressing. No signs of local soft tissue infection. Results & Data Results & Data Vital Signs (Past 12 Hours) Vital Signs Temp Pulse Resp BP Pulse Ox O2 Del Method 01/10/25 15:08 36.6 C 69 16 119/72 96 Room Air 01/10/25 11:49 36.7 C 71 16 120/70 96 Room Air Coding Level of Care Code 93547 SUB INP/OBS CARE 2/35MIN Diagnoses Cellulitis of foot, left L03.116 Diabetic ulcer of left midfoot associated with type 2 diabetes mellitus, unspecified ulcer stage E11.621; L97.429 Diabetes mellitus type: type 2 Diabetic foot ulcer location: midfoot Non-pressure ulcer stage: unspecified non-pressure ulcer stage Diabetic ulcer of left midfoot associated with diabetes mellitus due to underlying condition, with fat layer exposed E08.621; L97.422 Diabetic foot ulcer location: midfoot CPT Codes Debride Skin/Tissue - [id number] ([id number]) (2) Diabetic ulcer of left foot Diabetes mellitus type: type 2 Diabetic foot ulcer location: midfoot Non- pressure ulcer stage: unspecified non-pressure ulcer stage Qualified Code(s): E11.621 - Type 2 diabetes mellitus with foot ulcer; L97.429 - Non-pressure chronic ulcer of left heel and midfoot with unspecified severity (3) Diabetic ulcer of left foot associated with diabetes mellitus due to underlying condition, with fat layer exposed Diabetic foot ulcer location: midfoot Qualified Code(s): E08.621 - Diabetes mellitus due to underlying condition with foot ulcer; L97.422 - Non-pressure chronic ulcer of left heel and midfoot with fat layer exposed
[2025-01-11 06:06] LABS: Hematocrit (blood only) 36.4 % (37.0-47.0); Hemoglobin 11.9 g/dl (12.0-16.0); Mean Corpuscular Hemoglobin 26.7 pg (25.0-34.0); Mean Corpuscular Volume 81.8 fL (80.0-100.0); Platelet Count 249 K/uL (130-400); RDW Standard Deviation 44.4 fL (36.4-46.3); Red Blood Count 4.45 M/uL (4.20-5.40); White Blood Count 7.18 K/ul (4.8-10.8)
[2025-01-11 06:30] LABS: Anion Gap 8.0 (3-11); Blood Urea Nitrogen 17.0 mg/dl (6-23); Calcium 8.5 mg/dl (8.6-10.3); Carbon Dioxide 31.0 mmol/L (21-32); Chloride 100.0 mmol/L (98-107); Creatinine Clr Calc Pharmacy 58.4 ml/min; Glucose 93.0 mg/dl (70-99(Fasting)); Potassium 3.7 mmol/L (3.5-5.1); Sodium 139.0 mmol/L (136-145)
[2025-01-11] MEDS: SUCRALFATE 1 GM TAB PO PRN (08:24)
--- NOTE | 2025-01-11 10:38 | Podiatry Progress Note ---
Date of Service January 11, 2025 Assessment & Plan (1) Cellulitis of foot, left: (2) Diabetic ulcer of left foot: (3) Diabetic ulcer of left foot associated with diabetes mellitus due to underlying condition, with fat layer exposed: Plan Diabetic ulcer left foot x 2, Cellulitis left foot: Dressing changed with minimal sanguinous drainage to the left plantar foot wound status postdebridement 01/10/2025. - Continue nonweightbearing left foot. Continue CAM boot to right foot for transfers. - Continue once daily dressing change to plantar left foot wounds with Aquacel Ag and a dry sterile dressing. - Change dressing to the dorsal abrasion of the left foot with Aquacel Ag and a dry sterile dressing daily. - Elevate feet to help reduce fluid accumulation and promote healing - Protect heels to prevent breakdown - Wound Culture left foot 01/08: MSSA - MRI results 01/08 reviewed: No evidence of osteomyelitis - Continues IV cefazolin, Metronidazole Patient would benefit from discharge to assisted facility. She will is unable to remain nonweightbearing to the left foot in her home. As an outpatient she exhausted all feasible means of offloading to the left foot and her wounds continue to decline and ultimately fail requiring rehospitalization once she returns to home. Discussed discharge to assisted facility and patient is agreeable to this plan assuming insurance approval. Admission and Anticipated Discharge Date Admission Date: January 08, 2025 Subjective Patient seen resting comfortably in hospital bed. Reports decreased pain to the left foot since time of admission. She is having intermittent hip pain which is currently well-controlled. Reports remaining nonweightbearing since last seen. Dressing is clean dry and intact. Review of Systems Review of Systems: Denies nausea vomiting fever chills. Reports pain to the left foot. All other systems reviewed and negative unless otherwise stated in subjective. Physical Exam Physical Exam: Const: Appears well developed and well nourished. Obese. No signs of acute distress present. CV: Extremities: No cyanosis. Bilateral lower extremity edema left greater than right. Capillary refill time is less than 2 seconds all digits of the bilateral foot. Posterior tibial and dorsalis pedis pulses are palpable bilateral. Skin: Thin atrophic skin with loss of hair growth bilateral lower extremity below the knee with stasis changes to the skin bilateral. Neuro: Loss of protective sensation to toes bilateral. Diminished protective sensation to bilateral plantar foot. Notable pain to palpation areas of ulceration. Psych: Mood/Affect: Mood is normal. Affect is normal. Cognition: Orientation is intact to person, place and time. Focused lower extremity musculoskeletal exam: Abnormal gait pattern with shuffling of feet and heavy heel strike. Uses a walker for ambulation. Leg: No pain with compression of the calf muscle. Lymphedema bilateral leg left greater than right. Ankles: Normal to inspection and palpation. No tenderness bilaterally. Motor strength is intact. Range of motion pain-free and unlimited. Posterior lateral right ankle is evaluated with no signs of external injury. There is a firm well-circumscribed 1.6 cm diameter subcutaneous soft tissue mass/nodule no signs of local soft tissue irritation or infection. On palpation there is ge neralized tenderness which is noted bilaterally. Feet: Bilateral flatfoot deformity. Right foot: Plantar diabetic foot ulceration. With dry stable blood-tinged hyperkeratotic tissue. No signs of local soft tissue infection Left foot: Well-healed third digit amputation. Diabetic ulceration subfifth metatarsal base: Moderate sanguinous drainage to the dressing 1 day postdebridement. Surrounding soft tissue irritation is improving with decreased erythema and edema. Minimal slough buildup to the wound bed which was mechanically removed exposing healthy underlying granular tissue. Diabetic ulceration subfirst metatarsal head: Wound bed is more superficial with healthy granular tissue. No signs of local soft tissue infection. No active drainage. Wound does not probe or track in any direction. Results & Data Results & Data Vital Signs (Past 12 Hours) Vital Signs Temp Pulse Pulse Resp BP Pulse Ox O2 Del Method 01/11/25 07:12 36.3 C L 64 18 107/68 95 Room Air 01/10/25 23:34 37.3 C 64 18 116/66 96 Room Air Coding Level of Care Code 19967 SUB INP/OBS CARE 06/10MIN Diagnoses Cellulitis of foot, left L03.116 Diabetic ulcer of left midfoot associated with type 2 diabetes mellitus, unspecified ulcer stage E11.621; L97.429 Diabetes mellitus type: type 2 Diabetic foot ulcer location: midfoot Non-pressure ulcer stage: unspecified non-pressure ulcer stage Diabetic ulcer of left midfoot associated with diabetes mellitus due to underlying condition, with fat layer exposed E08.621; L97.422 Diabetic foot ulcer location: midfoot (2) Diabetic ulcer of left foot Diabetes mellitus type: type 2 Diabetic foot ulcer location: midfoot Non- pressure ulcer stage: unspecified non-pressure ulcer stage Qualified Code(s): E11.621 - Type 2 diabetes mellitus with foot ulcer; L97.429 - Non-pressure chronic ulcer of left heel and midfoot with unspecified severity (3) Diabetic ulcer of left foot associated with diabetes mellitus due to underlying condition, with fat layer exposed Diabetic foot ulcer location: midfoot Qualified Code(s): E08.621 - Diabetes mellitus due to underlying condition with foot ulcer; L97.422 - Non-pressure chronic ulcer of left heel and midfoot with fat layer exposed
--- NOTE | 2025-01-11 12:46 | Hospitalist Progress Note ---
Date of Service January 11, 2025 Assessment & Plan (1) Diabetic ulcer of left foot associated with diabetes mellitus due to u nderlying condition, with fat layer exposed: (2) Cellulitis of left foot: (3) Hx MRSA infection: Plan This patient is a 64-year-old female with PMH of T2DM who presents on 01/08 at the behest of the wound care clinic for a left diabetic foot infection. 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 H/o MRSA infection + reported drainage from the ulcers on 01/08. #Left diabetic foot ulcer/infection | cellulitis | right thigh pain Left foot/ankle MRI did not reveal evidence of acute osteomyelitis Wound culture finalized on 01/10 growing Staphylococcus aureus Maintain contact isolation precautions in the setting of recent MRSA infection Recommend f/u nasal swab on 01/14; if negative, can d/c MRSA isolation precautions Will adjust antibiotics to the following: Cefazolin 2 g IV q8h Metronidazole 500 mg p.o. q12h Suspect there may be a compensatory/overuse injury to the right hip/IT band due to patient putting increased weight on that leg at home Pain control with acetaminophen and oxycodone 5-10 mg p.o. PRN Bowel regimen: MiraLAX 17 g daily + Senna BID Daily wound care Wound care nurse consult appreciated Podiatry consult appreciated Left heel wound debrided with Dr. Somers on 01/10 PT/OT evaluations appreciated Nonweightbearing on the left foot Per PT eval on 01/10, patient would benefit from SNF level rehab following admission CM following #Noncompliance with nonweightbearing status Per review of PT note on 01/11, patient reportedly did not want to don her CAM boot She was also found to be resting her left heel on a stool, putting pressure on the heel Patient was also reportedly doing well while in the hospital in the rehab, but then her wound clinically deteriorated at home 1 week after leaving [facility] following her most recent admission Discussed case with [facility] Patient has reportedly ran into issues with her insurance with prior attempts at obtaining long-term SNF placement She has declined home health services in the past due to her current living environment Also, she reportedly has an open case with the office of aging Difficult discharge disposition Patient has exhausted most options for returning home at this time (patient lives in a trailer with her mother and daughter; wheelchair/knee scooter not feasible) Will plan to apply for SNF level rehab ? Outpatient therapy with [facility] as a backup plan Will touch base with patient's PCP prior to discharge for continuity/transitional care #T2DM With neuropathy, on gabapentin A1c 5.5% on 01/09/2025 Hold Jardiance Loose SSI with target BSG range 110-150mg/dL, CF 40, carb ratio deferred T2DM diet BSG ACHS Adjust regimen as needed #HFpEF Daily weights Strict I&O monitoring Continue Jardiance Continue torsemide 60mg p.o. BID Continue spironolactone 25 mg p.o. daily # Chronic back pain Currently taking oxycodone 5 mg tablets; prescribed in December 2024; i ndependently verified in PDMP Oxycodone for left foot pain (as above) Diclofenac gel application QID #ANDRZEJ CPAP HS #HTN Continue losartan, metoprolol #CKD, stage IIIa/b Follows with nephrology, most recent visit 10/20/2024. Baseline Cr 1.4-1.5; Cr at admission 1.40 -- BMP am Caution use of nephrotoxic agents #Gout Continue allopurinol #Asthma | Allergies Continue cetirizine, hydroxyzine, montelukast, inhaler, and nebs #Anxiety | Depression Continue buspirone, bupropion, duloxetine #GERD Continue famotidine, pantoprazole, and sucralfate PRN #H/o CVA April 2017; continue aspirin Disposition: Continued stay on MedSurg VTE PPx: Heparin 7500 mg SQ q12h Admission and Anticipated Discharge Date Admission Date: January 08, 2025 Subjective Mrs. Tristan is doing well this morning. She reports that the debridement with Dr. Somers went well last night. She was able to get up into her chair for a while, but working with therapy has been "killing her". Additionally, she is having significant right inguinal crease pain and pain in her right upper thigh. Patient reported the pain was so bad last night that she did not use the bathroom because she was afraid it would hurt too much. She reports it feels like she "pulled something" while working with PT. ROS: Patient endorses severe pain in her right hip and upper thigh, which will occasionally radiate to her right lower back. Patient denies fever, chills, chest pain, SOB, abdominal pain, N/V, or changes in urinary bowel habits. Review of Systems Review of Systems: See HPI above Physical Exam Physical Exam: General: no acute distress; pleasant affect; sitting upright on the side of the bed; non-toxic appearing; well-nourished; cooperative; SpO2 97% on RA HEENT: normocephalic, atraumatic; no scleral icterus; PERRLA; vision and hearing intact Neck: supple; trachea midline Skin: warm, dry without signs of tenting; no cyanosis; no rashes, bruising, lesions, or erythema noted CV: chest wall NTP; RRR; S1/S2 normal; no murmurs/rubs/gallops; pulses intact and symmetric at radial, DP, and PT Lungs: no acute respiratory distress; symmetrical chest wall expansion; clear breath sounds across all lung razo w/o adventitious sounds; no wheezing ABD: Soft, NTP; BS present; no rebound/guarding; suboptimal exam secondary to body habitus Back: Upper spine NTP; lower spine TTP just above the sacrum MSK: no tics or fasciculations; nonpitting edema in the lower extremities bilaterally (L>R); patient exhibits point tenderness to palpation in right upper thigh and inguinal crease; no rashes or bruising appreciated along the right flank Lower extremities: Left foot is wrapped, but patient does demonstrate the ability to wiggle her toes in both feet bilaterally Neuro: A&Ox3; normal mood and affect; fluent speech; no focal deficits; she reports no sensation in the lower extremities bilaterally assessed via light touch at the toes; she does have sensations bilaterally Results & Data Results & Data Vital Signs (Past 12 Hours) Vital Signs Temp Pulse Resp BP Pulse Ox O2 Del Method 01/11/25 07:12 36.3 C L 64 18 107/68 95 Room Air PG Care Time/CCT Total # of Minutes Spent Total Time Spent with Patient: Total time spent is greater than 50% in coordination of care (as documented) at patient's floor/unit and/or counseling patient: C[place] [address] SUB INP/OBS CARE 3/50MIN Patient Type Established History Comprehensive Exam Comprehensive Medical Decision Making High Complexity Diagnoses Diabetic ulcer of left midfoot associated with diabetes mellitus due to underlying condition, with fat layer exposed E08.621; L97.422 Diabetic foot ulcer location: midfoot Cellulitis of left foot L03.116 Hx MRSA infection Z86.14 (1) Diabetic ulcer of left foot associated with diabetes mellitus due to underlying condition, with fat layer exposed Diabetic foot ulcer location: midfoot Qualified Code(s): E08.621 - Diabetes mellitus due to underlying condition with foot ulcer; L97.422 - Non-pressure chronic ulcer of left heel and midfoot with fat layer exposed
[2025-01-11] MEDS ORDERED: HYDROmorphone INJ 0.5 MG/0.5 ML SYR IV PRN (19:40)
[2025-01-11] MEDS: HYDROmorphone INJ 1 MG/ML SYRINGE IV PRN (20:24)
--- NOTE | 2025-01-12 15:38 | Hospitalist Progress Note ---
Date of Service January 12, 2025 Assessment & Plan (1) Diabetic ulcer of left foot associated with diabetes mellitus due to u nderlying condition, with fat layer exposed: (2) Cellulitis of left foot: (3) Hx MRSA infection: Plan This patient is a 64-year-old female with PMH of T2DM who presents on 01/08 at the behest of the wound care clinic for a left diabetic foot infection. 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 H/o MRSA infection + reported drainage from the ulcers on 01/08. #Left diabetic foot ulcer/infection | cellulitis | right thigh pain Left foot/ankle MRI did not reveal evidence of acute osteomyelitis Wound culture finalized on 01/10 growing Staphylococcus aureus Maintain contact isolation precautions in the setting of recent MRSA infection Recommend f/u nasal swab on 01/14; if negative, can d/c MRSA isolation precautions Will adjust antibiotics to the following: Cefazolin 2 g IV q8h Metronidazole 500 mg p.o. q12h Suspect there may be a compensatory/overuse injury to the right hip and IT band due to patient putting increased weight on that leg at home Magnesium sulfate 1 mg IV x 1 to assist with muscle loosening Trial of trazodone 50 mg p.o. HS x 1 to assist with sleep/pain control at night Pain control with acetaminophen and oxycodone 5-10 mg p.o. PRN Bowel regimen: MiraLAX 17 g daily + Senna BID Daily wound care Wound care nurse consult appreciated Podiatry consult appreciated Left heel wound debrided with Dr. Somers on 01/10 PT/OT evaluations appreciated Nonweightbearing on the left foot Per PT eval on 01/10, patient would benefit from SNF level rehab following admission [facility] following #Noncompliance with nonweightbearing status Per review of PT note on 01/11, patient reportedly did not want to don her CAM boot She was also found to be resting her left heel on a stool, putting pressure on the heel Patient was also reportedly doing well while in the hospital in the rehab, but then her wound clinically deteriorated at home 1 week after leaving [facility] following her most recent admission Discussed case with [facility] Patient has reportedly ran into issues with her insurance with prior attempts at obtaining long-term SNF placement She has declined home health services in the past due to her current living environment Also, she reportedly has an open case with the office of aging Difficult discharge disposition Patient has exhausted most options for returning home at this time (patient lives in a trailer with her mother and daughter; wheelchair/knee scooter not feasible) Will plan to apply for SNF level rehab ? Outpatient therapy with [facility] as a backup plan Will touch base with patient's PCP prior to discharge for continuity/transitional care #T2DM With neuropathy, on gabapentin A1c 5.5% on 01/09/2025 Hold Jardiance Loose SSI with target BSG range 110-150mg/dL, CF 40, carb ratio deferred T2DM diet BSG ACHS Adjust regimen as needed #HFpEF Daily weights Strict I&O monitoring Continue Jardiance Continue torsemide 60mg p.o. BID Continue spironolactone 25 mg p.o. daily # Chronic back pain Currently taking oxycodone 5 mg tablets; prescribed in December 2024; independently verified in PDMP Oxycodone for left foot pain (as above) Diclofenac gel application QID #ANDRZEJ CPAP HS #HTN Continue losartan, metoprolol #CKD, stage IIIa/b Follows with nephrology, most recent visit 10/20/2024. Baseline Cr 1.4-1.5; Cr at admission 1.40 -- BMP am Caution use of nephrotoxic agents #Gout Continue allopurinol #Asthma | Allergies Continue cetirizine, hydroxyzine, montelukast, inhaler, and nebs #Anxiety | Depression Continue buspirone, bupropion, duloxetine #GERD Continue famotidine, pantoprazole, and sucralfate PRN #H/o CVA April 2017; continue aspirin Disposition: Continued stay on MedSurg VTE PPx: Heparin 7500 mg SQ q12h Admission and Anticipated Discharge Date Admission Date: January 08, 2025 Subjective Mrs. Tristan reports that her pain is better controlled after receiving IV Dilaudid last night. She reports she definitely needed it last night, as she has been having some of her worst pain in the evenings. Her pain is 7/10 at present, but was more alleviated this morning. She has difficulty with bending at the waist and moving her right hip. The pain in her left foot feels decent (she reports is a 4 out of 10 at this time) Long discussion with patient regarding potential discharge planning when asked if she felt like she could stay off her foot at home, she reports that her hallway in her home trailer is too long for her to stay off the foot. She asks as concerns that her foot will worsen if she returns home. When asked what the best environment would be for healing, she does believe that SNF would be the best option. During her last visit [facility], she reportedly became upset after she was told she could go home, but then this was taken back. She was then told that she had to leave Wednesday because her insurance would not be paying for any additional days. She declined home health at that time, stating that they will be around to help her "walk to the bathroom" every time she needs to at home. She does believe that better pain control for the right hip would also help. ROS: Patient endorses right groin/thigh pain, and left foot pain. Patient denies fever, chills, night sweats, chest pain, SOB, cough, abdominal pain, N/D, or changes in urinary/bowel habits. Review of Systems Review of Systems: See HPI above Physical Exam Physical Exam: General: no acute distress; non-toxic appearing; well-nourished; cooperative; SpO2 96% on RA HEENT: normocephalic, atraumatic; no scleral icterus; PERRLA; vision and hearing grossly intact Neck: supple; no lymphadenopathy; trachea midline Skin: warm, dry without signs of tenting; no cyanosis; no rashes, bruising, lesions, or erythema noted CV: chest wall NTP; RRR; S1/S2 normal; no murmurs/rubs/gallops; pulses intact and symmetric at radial, DP, and PT Lungs: no acute respiratory distress; symmetrical chest wall expansion; clear breath sounds across all lung razo w/o adventitious sounds; no wheezing ABD: Soft, NTP; BS present; no rebound/guarding; no distention MSK: no tics or fasciculations; no edema noted in the LEs b/l, nonerythematous Neuro: A&Ox3; normal mood and affect; fluent speech; no focal deficits; sensation grossly intact in the LEs b/l Results & Data Results & Data Vital Signs (Past 12 Hours) Vital Signs Temp Pulse Resp BP Pulse Ox O2 Del Method 01/12/25 07:25 36.5 C 63 16 113/72 96 Room Air PG Care Time/CCT Total # of Minutes Spent Total Time Spent with Patient: Total time spent is greater than 50% in coordination of care (as documented) at patient's floor/unit and/or counseling patient: C[place] [address] SUB INP/OBS CARE 350MIN Patient Type Established History Comprehensive Exam Comprehensive Medical Decision Making High Complexity Diagnoses Diabetic ulcer of left midfoot associated with diabetes mellitus due to underlying condition, with fat layer exposed E08.621; L97.422 Diabetic foot ulcer location: midfoot Cellulitis of left foot L03.116 Hx MRSA infection Z86.14 (1) Diabetic ulcer of left foot associated with diabetes mellitus due to underlying condition, with fat layer exposed Diabetic foot ulcer location: midfoot Qualified Code(s): E08.621 - Diabetes mellitus due to underlying condition with foot ulcer; L97.422 - Non-pressure chronic ulcer of left heel and midfoot with fat layer exposed
--- NOTE | 2025-01-12 17:00 | Podiatry Progress Note ---
Date of Service January 12, 2025 Assessment & Plan (1) Cellulitis of foot, left: (2) Diabetic ulcer of left foot: (3) Diabetic ulcer of left foot associated with diabetes mellitus due to underlying condition, with fat layer exposed: Plan Diabetic ulcer left foot x 2, Cellulitis left foot: Dressing changed with minimal sanguinous drainage to the left plantar foot wound status postdebridement 01/10/2025. - Continue nonweightbearing left foot. Continue CAM boot to right foot for transfers. - Continue once daily dressing change to plantar left foot wounds with Aquacel Ag and a dry sterile dressing. - Change dressing to the dorsal abrasion of the left foot with Aquacel Ag and a dry sterile dressing daily. - Elevate feet to help reduce fluid accumulation and promote healing - Protect heels to prevent breakdown - Wound Culture left foot 01/08: MSSA - MRI results 01/08 reviewed: No evidence of osteomyelitis - Continues IV cefazolin, Metronidazole Patient's wounds have shown significant improvement during her current admission despite noncompliance with use of cam boot. Patient would benefit from discharge to group home facility. She will is unable to remain nonweightbearing to the left foot in her home. As an outpatient she exhausted all feasible means of offloading to the left foot and her wounds continue to decline and ultimately fail requiring rehospitalization once she returns to home. Discussed discharge to group home facility and patient is agreeable to this plan assuming insurance approval. Admission and Anticipated Discharge Date Admission Date: January 08, 2025 Subjective Patient resting comfortably in hospital bed with family present at bedside. Reports decreased pain to left foot over the past 24 hours. Dressing to left foot remains clean dry and intact. Case discussed with physical therapy who reports patient's poor compliance with use of cam walker during this admission which makes me question her compliance with use of cam walker as an outpatient but she does not wear it to her outpatient wound care appointments. Review of Systems Review of Systems: Denies nausea vomiting fever chills. Reports pain to the left foot. All other systems reviewed and negative unless otherwise stated in subjective. Physical Exam Physical Exam: Const: Appears well developed and well nourished. Obese. No signs of acute distress present. CV: Extremities: No cyanosis. Bilateral lower extremity edema left greater than right. Capillary refill time is less than 2 seconds all digits of the bilateral foot. Posterior tibial and dorsalis pedis pulses are palpable bilateral. Skin: Thin atrophic skin with loss of hair growth bilateral lower extremity below the knee with stasis changes to the skin bilateral. Neuro: Loss of protective sensation to toes bilateral. Diminished protective sensation to bilateral plantar foot. Notable pain to palpation areas of ulceration. Psych: Mood/Affect: Mood is normal. Affect is normal. Cognition: Orientation is intact to person, place and time. Focused lower extremity musculoskeletal exam: Abnormal gait pattern with shuffling of feet and heavy heel strike. Uses a walker for ambulation. Leg: No pain with compression of the calf muscle. Lymphedema bilateral leg left greater than right. Ankles: Normal to inspection and palpation. No tenderness bilaterally. Motor strength is intact. Range of motion pain-free and unlimited. Posterior lateral right ankle is evaluated with no signs of external injury. There is a firm well-circumscribed 1.6 cm diameter subcutaneous soft tissue mass/nodule no signs of local soft tissue irritation or infection. On palpation there is generalized tenderness which is noted bilaterally. Feet: Bilateral flatfoot deformity. Right foot: Plantar diabetic foot ulceration. With dry stable blood-tinged hyperkeratotic tissue. No signs of local soft tissue infection Left foot: Well-healed third digit amputation. Diabetic ulceration subfifth metatarsal base: Decreased wound dimensions noted over the past 24 hours. Minimal sanguinous drainage to the dressing. Mild persistent periwound erythema extending laterally over the fifth metatarsal base. Minimal slough buildup to the wound bed which was mechanically removed exposing healthy underlying granular tissue. Diabetic ulceration subfirst metatarsal head: Decreased wound dimensions. Wound bed is more superficial with healthy granular tissue. No signs of local soft tissue infection. No active drainage. Wound does not probe or track in any direction. Results & Data Results & Data Vital Signs (Past 12 Hours) Vital Signs Temp Pulse Resp BP Pulse Ox O2 Del Method 01/12/25 07:25 36.5 C 63 16 113/72 96 Room Air Coding Level of Care Code 35912 SUB INP/OBS CARE 2/35MIN Diagnoses Cellulitis of foot, left L03.116 Diabetic ulcer of left midfoot associated with type 2 diabetes mellitus, unspecified ulcer stage E11.621; L97.429 Diabetes mellitus type: type 2 Diabetic foot ulcer location: midfoot Non-pressure ulcer stage: unspecified non-pressure ulcer stage Diabetic ulcer of left midfoot associated with diabetes mellitus due to underlying condition, with fat layer exposed E08.621; L97.422 Diabetic foot ulcer location: midfoot (2) Diabetic ulcer of left foot Diabetes mellitus type: type 2 Diabetic foot ulcer location: midfoot Non- pressure ulcer stage: unspecified non-pressure ulcer stage Qualified Code(s): E11.621 - Type 2 diabetes mellitus with foot ulcer; L97.429 - Non-pressure chronic ulcer of left heel and midfoot with unspecified severity (3) Diabetic ulcer of left foot associated with diabetes mellitus due to underlying condition, with fat layer exposed Diabetic foot ulcer location: midfoot Qualified Code(s): E08.621 - Diabetes mellitus due to underlying condition with foot ulcer; L97.422 - Non-pressure chronic ulcer of left heel and midfoot with fat layer exposed
[2025-01-12] MEDS: MAGNESIUM SULFATE / D5W 1 GM/100 ML BAG IV ONE (19:24)
[2025-01-13 06:57] LABS: Hematocrit (blood only) 39.6 % (37.0-47.0); Hemoglobin 12.8 g/dl (12.0-16.0); Mean Corpuscular Hemoglobin 26.9 pg (25.0-34.0); Mean Corpuscular Volume 83.4 fL (80.0-100.0); Platelet Count 274 K/uL (130-400); RDW Standard Deviation 45.3 fL (36.4-46.3); Red Blood Count 4.75 M/uL (4.20-5.40); White Blood Count 6.65 K/ul (4.8-10.8)
[2025-01-13 07:07] VITALS: BP 109/71; PULSE 67; RESP 19; TEMP 97.5; O2SAT 96
[2025-01-13 07:54] LABS: Anion Gap 5.0 (3-11); Blood Urea Nitrogen 22.0 mg/dl (6-23); Calcium 8.9 mg/dl (8.6-10.3); Carbon Dioxide 37.0 mmol/L (21-32); Chloride 98.0 mmol/L (98-107); Creatinine Clr Calc Pharmacy 60.7 ml/min; Glucose 93.0 mg/dl (70-99(Fasting)); Magnesium 2.0 mg/dl (1.7-2.4); Potassium 3.9 mmol/L (3.5-5.1); Sodium 140.0 mmol/L (136-145)
--- NOTE | 2025-01-13 11:41 | Discharge Summary ---
Discharge Summary Date of Service January 13, 2025 Principal Dx & Hospital Course #1 = Principal Diagnosis (1) Diabetic ulcer of left foot associated with diabetes mellitus due to underlying condition, with fat layer exposed: (2) Cellulitis of left foot: (3) Hx MRSA infection: Plan This patient is a 64-year-old female with PMH of T2DM who presents on 01/08 at the behest of the wound care clinic for a left diabetic foot infection. Worsening x 2 days [employer]. H/o MRSA infection + reported drainage from the ulcers on 01/08. Day of discharge 01/13: Mrs. Tristan reports she slept okay last night; trial of trazadone did help, but she was still woke up twice. She is unsure if the magnesium helped at all with her muscle pain in the right upper thigh. Overall, she does feel that the increase in oxycodone "works for a while", but she still is having 8/10 pain this morning. She is having little to no pain in her left foot at this time, and feels like her wounds are improving. Again, when asked where she felt the best environment for healing, she responded SNF. She understands that she should be nonweightbearing on the left foot. She does feel ready to go to [facility] today if possible. ROS: Patient endorses pain in the right IT band (extending up the right thigh, into the right lower back). Patient denies fever, chills, night sweats, chest pain, chest palpitations, SOB, cough, abdominal pain, N/V/D, or changes in urinary/bowel habits. #Left diabetic foot ulcer/infection | cellulitis (resolved) Left foot/ankle MRI did not reveal evidence of acute osteomyelitis Wound culture finalized on 01/10 growing Staphylococcus aureus Maintain contact isolation precautions in the setting of recent MRSA infection Recommend f/u nasal swab on 01/14; if negative, can d/c MRSA isolation precautions Recommend repeat MRSA swab on 01/14 or on an outpatient basis Patient received 5 days of antibiotics while in the hospital to cover for Staph aureus (including daptomycin x 2 days, cefepime x 3 days, Ancef x 3 days, and metronidazole x 5 days) Discharged on cephalexin 5 mg p.o. QID x 2 additional days Recommend that patient continue to get daily wound care Podiatry consult appreciated Left heel wound debrided with Dr. Somers on 01/10 PT/OT evaluations appreciated Nonweightbearing on the left foot Per PT eval on 01/10, patient would benefit from SNF level rehab following admission Accepted at [facility]; will plan for discharge on 01/13 #Right thigh pain Suspect there may be a compensatory/overuse injury to the right hip and IT band due to patient putting increased weight on that leg at home Magnesium sulfate 1 mg IV x 1 did not seem to help with muscle loosening Patient cannot use lidocaine patches due to adhesive allergy Pain control with acetaminophen and oxycodone 5-10 mg p.o. PRN Can reinitiate tramadol upon discharge Bowel regimen: MiraLAX 17 g daily + Senna BID #Noncompliance with nonweightbearing status | recurrent admissions Per review of PT note on 01/11, patient reportedly did not want to don her CAM boot She was also found to be resting her left heel on a stool, putting pressure on the heel Patient was also reportedly doing well while in the hospital and SNF placement following her last admission, but then her wound clinically deteriorated at home 1 week after leaving [facility] Discussed with CM Patient has reportedly ran into issues with her insurance with prior attempts at obtaining long-term SNF placement She has declined home health services in the past due to her current living environment Also, she reportedly has an open case with the office of aging Difficult discharge disposition Patient has exhausted most options for returning home at this time (patient lives in a trailer with her mother and daughter; wheelchair/knee scooter not feasible) Discussed with patient, and she does feel that SNF level of care would best facilitate her wound healing Suspect patient would benefit the most from long-term SNF placement #T2DM With neuropathy, on gabapentin A1c 5.5% on 01/09/2025 Hold Jardiance Loose SSI with target BSG range 110-150mg/dL, CF 40, carb ratio deferred T2DM diet BSG ACHS Adjust regimen as needed #HFpEF Daily weights Strict I&O monitoring Continue Jardiance Continue torsemide 60mg p.o. BID Continue spironolactone 25 mg p.o. daily # Chronic back pain Currently taking oxycodone 5 mg tablets; prescribed in December 2024; independently verified in PDMP Oxycodone for left foot pain (as above) Diclofenac gel application QID #ANDRZEJ CPAP HS #HTN Continue losartan, metoprolol #CKD, stage IIIa/b Follows with nephrology, most recent visit 10/20/2024. Baseline Cr 1.4-1.5; Cr at admission 1.40 -- BMP am Caution use of nephrotoxic agents #Gout Continue allopurinol #Asthma | Allergies Continue cetirizine, hydroxyzine, montelukast, inhaler, and nebs #Anxiety | Depression Continue buspirone, bupropion, duloxetine #GERD Continue famotidine, pantoprazole, and sucralfate PRN #H/o CVA April 2017; continue aspirin Disposition: Transfer to [facility] Notes For Next Care Provider Patient was hospitalized from 01/08 - 01/13 for a left diabetic foot infection. Not septic in the hospital. Imaging of the left foot/ankle did not reveal osteomyelitis. She underwent debridement with Dr. Somers on 01/10. Wound cultures grew Staphylococcus aureus with susceptibility to oxacillin. Discharged on Keflex 500 mg p.o. QID x 2 additional days to complete course. Recommend a follow-up MRSA swab outpatient (if negative, she could potentially avoid isolation precautions during future hospitalizations). Being discharged to [facility] for additional strength and conditioning. Patient has now gone through multiple re-admissions over the last several months secondary to her diabetic foot infection. Following her last hospitalization, she went to [facility], but then left and was back at the hospital approximately 1 week later. She has difficulty remaining nonweightbearing on her left foot at home due to her home living environment. Do feel that she potentially long-term SNF placement, as she has exhausted most feasible options for returning home with this current foot infection. We did discuss wheelchair and knee scooter while she was in the hospital, but these do not seem feasible with her housing situation at home. Admission HPI Per Admitting Provider Mrs. Tristan is a 64-year-old female with PMH of severe ANDRZEJ, asthma, morbid obesity, CVA, HFpEF, CKD, anxiety, depression, cellulitis, diabetic foot infections, and MRSA infections. She presented on 01/08 at the behest of the wound care clinic for a left diabetic foot infection. Patient reports she was feeling fine on Friday 01/05. Then, over the weekend, she developed pain on the sole of her left foot with occasional sharp pains radiating from her heel up into the coles. She characterizes the pain as a "throbbing pain" that she rates a 6 out of 10 at present. She has been taking Tylenol and oxycodone 5 mg tablets as needed for pain control at home, which have helped. She also reportedly has chronic neuropathy in her feet at baseline. Patient was previously at [facility], but was discharged home approximately 1 week ago. She lives in a trailer with her daughter and mother. Patient ambulates with a walker at baseline, but reports she only gets up from the bedroom to the bathroom in terms of movement. She reports that she did have purulent drainage, which she first noticed from her wound sites today on 01/08. History of MRSA infections. Patient took her regular morning medicine today. The only recent change in medication was that she was taken off of Bumex and started on torsemide 60 mg every other day. She does manage her medicine at home. Patient uses a CPAP at night. She denies smoking, tobacco use, recent alcohol use. Vital stable at time of admission. ED course: Daptomycin 700 mg IV Metronidazole 500 mg IV Cefepime 2000 mg IV ROS: Patient endorses ZENG, left foot pain, drainage from the left foot, pain in the right leg extending up from the knee to the hip (which patient attributes to overcompensating for not bearing weight on her left foot), and neuropathy from the knees down b/l. Patient denies fever, chills, night-sweats, dizziness, lightheadedness, chest pain, SOB, abdominal pain, or changes in urinary/bowel habits. Admission Exam Per Admitting Provider General: no acute distress; pleasant affect; non-toxic appearing; well- nourished; cooperative; SpO2 100% on RA HEENT: normocephalic, atraumatic; no scleral icterus; PERRLA w/ EOMs intact; vision and hearing grossly intact Neck: supple; no lymphadenopathy; trachea midline Skin: warm, dry without signs of tenting; no cyanosis; no rashes, bruising, lesions, or erythema noted CV: chest wall NTP; RRR; S1/S2 normal; no murmurs/rubs/gallops; pulses intact and symmetric at radial, DP, and PT Lungs: no acute respiratory distress; symmetrical chest wall expansion; clear breath sounds across all lung razo w/o adventitious sounds; no wheezing ABD: Soft, NTP; BS present; no rebound/guarding; moderate distention secondary to body habitus; suboptimal exam secondary to body habitus MSK: no tics or fasciculations; nonpitting edema in the lower extremities bilaterally extending to the knees Left foot: Erythema on the dorsal aspect of the foot; amputated third digit; 2 cm diabetic foot ulcesr on the medial plantar and sural aspects of the foot with surrounding eschar (see photos below); no purulent drainage appreciated; non- malodorous Neuro: A&Ox3; normal mood and affect; fluent speech; no focal deficits; patient reports diminished sensation in lower extremities bilaterally assessed via light touch Discharge Exam General: no acute distress; sitting upright in her chair watching TV; non-toxic appearing; well-nourished; cooperative; SpO2 96% on RA HEENT: normocephalic, atraumatic; no scleral icterus; PERRLA; vision and hearing grossly intact Neck: supple; trachea midline Skin: warm, dry without signs of tenting; no cyanosis; no rashes, bruising, lesions, or erythema noted CV: chest wall NTP; RRR; S1/S2 normal; no murmurs/rubs/gallops; pulses intact and symmetric at radial, DP, and PT Lungs: no acute respiratory distress; symmetrical chest wall expansion; clear breath sounds across all lung razo w/o adventitious sounds; no wheezing ABD: Soft, NTP; BS present; no rebound/guarding; no distention MSK: no tics or fasciculations; no edema noted in the LEs b/l, nonerythematous; patient demonstrates ability wiggle toes bilaterally Right thigh/hip: TTP across the lateral quadriceps following the IT band; mild TTP in the right lower back; no bruising appreciated Neuro: A&Ox3; normal mood and affect; fluent speech; no focal deficits; she reports no sensation below the knees bilaterally assessed via light touch; diminished sensation in the knees bilaterally Discharge Plan Discharge Items Patient Disposition: Transfer Shelter Fac Reason For Visit: LEFT DIABETIC FOOT INFECTION Discharge Diagnosis: Left diabetic foot infection Condition on Discharge: Good Activity: As commented below Activity Comment: Left foot nonweightbearing; follow-up PT/OT recommendation Weightbearing: Left non-weightbearing Non-emergency contact: Primary Care Provider Call non-emergency contact if: you have any medication questions, your symptoms worsen, your pain is not controlled, your pain is worsening and you have a fever Follow-up/Referrals: Awilda Eric CRNP [Primary Care Provider] - Diet: Carb Consistent or DM2 Addtl Attending Provider Instructions: You were hospitalized at [facility] from 01/08 - 01/13 for a diabetic left foot infection and nonhealing ulcers. An MRI was taking of your foot and ankle which did not reveal osteomyelitis (which is when the infection gets into the bone). Given your recent history of MRSA infection, you were covered with broad-spectrum antibiotics arrival. However, your final wound culture grew Staphylococcus aureus that was not methicillin-resistant and your antibiotics were adjusted accordingly. You underwent a debridement with Dr. Somers (podiatry) on 01/10 that reportedly went well. Your blood work did not reveal elevated white blood cell count to indicate signs of severe infection, and a blood marker that assesses for inflammation gradually decreased throughout your hospital stay. Your vitals are stable at time of discharge. For this reason, we feel you are safe to be transferred to [facility] to undergo additional strength and conditioning while left foot wounds heal. You are to remain nonweightbearing on your left foot. We will plan to send you on the following antibiotic: - Cephalexin 500 mg tablets (to be taken 4 times daily x 2 additional days) Please plan to follow-up with your PCP in the next 1 to 2 weeks for a transitional care appointment. If you develop any new or worsening symptoms, such as fever, chills, night sweats, chest pain, trouble breathing, inability to walk, intractable pain in the left foot, or intractable pain in the right thigh/hip, please return to the emergency department immediately. It is a pleasure taking care of you. Please reach out any questions or concerns. Sincerely, The Hospital medicine team at [facility] Pending Studies at Discharge: No Stand-Alone Forms: My [facility] Skilled Items Patient informed of condition?: Yes DNR: No Discharge Level of Care: Skilled Communicable Disease: Yes Discharge Prognosis: Improving Lines: None Urinary Catheter: No Medications and DC Order Prescriptions: New cephalexin 500 mg capsule 500 mg PO QID Qty: 8 0RF Rx Instructions: Take 1 capsule 4 times daily Continued gentamicin 0.1 % ointment 1 applic topical DAILY 14 Days Qty: 30 1RF (DME) CPAP Supplies Misc See Rx Instructions .Route Qty: 1 0RF Rx Instructions: As directed (DME) CPAP Machine Misc See Rx Instructions .Route Qty: 1 0RF Rx Instructions: As directed 11cm water pressure Jardiance 10 mg tablet 10 mg PO QAM Qty: 90 3RF Hold Instructions: Provider's Order Rx Instructions: for congestive heart failure montelukast [Singulair] 10 mg tablet 10 mg PO QPM Qty: 90 3RF albuterol sulfate [Ventolin HFA] 90 mcg/actuation HFA aerosol inhaler 2 puff INHALATION Q4H PRN (Reason: Shortness Of Breath Or Wheezing) Qty: 18 3RF bupropion HCl 150 mg tablet extended release 24 hr 150 mg PO QAM Qty: 90 2RF Rx Instructions: ON HOLD FOR TWO WEEKS OF 12/04/2024 gabapentin 400 mg capsule 400 mg PO QID Qty: 360 0RF allopurinol 100 mg tablet 100 mg PO BID Qty: 180 1RF pantoprazole [Protonix] 40 mg tablet,delayed release (DR/EC) 40 mg PO BID Qty: 90 3RF potassium chloride [Klor-Con M20] 20 mEq tablet,ER particles/crystals 20 meq PO QAM Qty: 90 3RF aspirin 81 mg tablet,delayed release (DR/EC) 81 mg PO QAM albuterol sulfate 2.5 mg /3 mL (0.083 %) solution for nebulization 2.5 mg inhalation Q6H PRN (Reason: Shortness Of Breath) Qty: 90 1RF Rx Instructions: needed spironolactone 25 mg tablet 25 mg PO BID Qty: 180 3RF Rx Instructions: ON HOLD FOR TWO WEEKS OF 12/04/2024 buspirone 15 mg tablet 15 mg PO QID tramadol 50 mg tablet 50 mg PO BID PRN (Reason: pain) Qty: 30 0RF cyanocobalamin (vitamin B-12) [Vitamin B-12] 1,000 mcg tablet 1,000 mcg PO QAM Tums 300 mg (750 mg) tablet,chewable 900 mg PO QAM diclofenac sodium [Voltaren Arthritis Pain] 1 % Gel 4 g EXT QID Qty: 1 0RF Rx Instructions: purchase [id number]; may use 4 grams on your lower back, either knee, either hip, back of neck. nystatin 100,000 unit/gram powder 1 applic topical TID PRN (Reason: yeast rash under breasts, abdominal skin folds) Qty: 30 0RF hydroxyzine HCl 25 mg tablet 25 mg PO HS cholecalciferol (vitamin D3) [Vitamin D3] 50 mcg (2,000 unit) capsule 2,000 unit PO TID oxycodone 5 mg Tablet 5 mg PO Q4H PRN (Reason: pain) Qty: 30 0RF sennosides [Senokot] 8.6 mg tablet 17.2 mg PO BID Rx Instructions: purchase [id number] famotidine 40 mg tablet 40 mg PO QPM polyethylene glycol 3350 [Miralax] 17 gram/dose powder 17 g PO DAILY PRN (Reason: Constipation) Rx Instructions: Take 17gm mixed in 8 ounces of water once daily. Can be increased up to TID as needed for constipation. torsemide 20 mg Tablet 60 mg PO Q2D Qty: 30 0RF cetirizine [Zyrtec] 10 mg tablet 10 mg PO BID epinephrine 0.3 mg/0.3 mL auto-injector 0.3 mg IM UD PRN (Reason: anaphylaxis) acetaminophen 500 mg tablet 1,000 mg PO TID PRN (Reason: fever or pain) Qty: 90 0RF losartan 25 mg tablet 25 mg PO QAM nystatin 100,000 unit/gram ointment 1 applic EXT TID PRN (Reason: FLARE) sucralfate [Carafate] 1 gram tablet 1 g PO AC PRN (Reason: heartburn) Qty: 30 0RF multivitamin [Daily-Holli] Tablet 1 tab PO QAM duloxetine 60 mg capsule,delayed release(DR/EC) 60 mg PO BID metoprolol succinate 25 mg tablet extended release 24 hr 25 mg PO QAM Discharge Orders: Discharge Order (Routine); Ordered 01/13/25 Ordered By: Ji Uriarte/Other Patient Handouts: Nutrition for Wound Healing Admission Data Admit Date/Time: 01/08/25 18:27 Attending Provider: Chris Howell Admit Provider: Sundeep Painter Primary Care Provider: Awilda Eric Other Providers: Sundeep Painter; Jerrell Somers; [facility] Hospital Stay Data Consultations 01/08/25 17:12 ED Decision to Admit Stat 01/09/25 11:10 Consult Podiatry Routine Diagnostic Imagining Performed 01/08/25 19:21 MRI Foot [MR foot LT w/o con] Urgent 01/08/25 20:28 MR ankle LT wo con Stat Discharge Instructions Given to Patient (Per Discharging Provider) You were hospitalized at [facility] from 01/08 - 01/13 for a diabetic left foot infection and nonhealing ulcers. An MRI was taking of your foot and ankle which did not reveal osteomyelitis (which is when the infection gets into the bone). Given your recent history of MRSA infection, you were covered with broad-spectrum antibiotics arrival. However, your final wound culture grew Staphylococcus aureus that was not methicillin-resistant and your antibiotics were adjusted accordingly. You underwent a debridement with Dr. Somers (podiatry) on 01/10 that reportedly went well. Your blood work did not reveal elevated white blood cell count to indicate signs of severe infection, and a blood marker that assesses for inflammation gradually decreased throughout your hospital stay. Your vitals are stable at time of discharge. For this reason, we feel you are safe to be transferred to [facility] to undergo additional strength and conditioning while left foot wounds heal. You are to remain nonweightbearing on your left foot. We will plan to send you on the following antibiotic: - Cephalexin 500 mg tablets (to be taken 4 times daily x 2 additional days) Please plan to follow-up with your PCP in the next 1 to 2 weeks for a transitional care appointment. If you develop any new or worsening symptoms, such as fever, chills, night sweats, chest pain, trouble breathing, inability to walk, intractable pain in the left foot, or intractable pain in the right thigh/hip, please return to the emergency department immediately. It is a pleasure taking care of you. Please reach out any questions or concerns. Sincerely, The Hospital medicine team at [facility] Total Time Total Time Spent Total Time Spent (In Minutes): 25 C[place] [address] INP/OBS DISCH >30 MIN Patient Type Established History Comprehensive Exam Comprehensive Medical Decision Making High Complexity Diagnoses Diabetic ulcer of left midfoot associated with diabetes mellitus due to underlying condition, with fat layer exposed E08.621; L97.422 Diabetic foot ulcer location: midfoot Cellulitis of left foot L03.116 Hx MRSA infection Z86.14
== END 2025-01-13 14:24 | DRG 623 ==
LOC: SUATTDRO → ED 13:55 → 3E 18:27 → SUATTDRO 18:27 → 3E 20:33

== ENCOUNTER 2025-02-08 10:59 | Inpatient (IN) ==
--- NOTE | 2025-02-08 11:29 | Emergency Department Note ---
Impression & Plan Cellulitis, Ambulatory dysfunction, Lymphedema ED Provider Note NAME: CELIO ARGUELLES AGE: 64 SEX: F : 1960 ARRIVES VIA: Walk-In INFORMANT: Patient ED PROVIDER(S): Chaitanya Toscano DO CHIEF COMPLAINT: Swelling of her bilateral lower extremities, inability to walk HPI: Patient is a 64-year-old female with a past medical history of diabetes, lymphedema, aortic stenosis, pyelonephritis and gangrene who presents to the ER for swelling of her bilateral lower extremities which has worsened over the past several weeks. She notes recently she has been getting redness and warmth of her right coles as well as her left leg. She denies any fevers. No chest pain or shortness of breath. No nausea, vomiting, or diarrhea. No dysuria, urgency, or frequency. No other exacerbating or remitting factors. ADDITIONAL HISTORY OBTAINED: Per HPI Chronic Medical/Social Conditions Affecting Care: Per HPI PAST MEDICAL HISTORY:See Below PAST SURGICAL HISTORY:See Below FAMILY HISTORY:See Below SOCIAL HISTORY:See Below HOME MEDICATIONS:See Below ALLERGIES:See Below VITALS:See Below PHYSICAL EXAMINATION: GENERAL: Sitting up in bed, alert, well appearing, well nourished, no distress, non-toxic EYE EXAM: normal conjunctiva. PERRL and EOM's grossly intact. OROPHARYNX: no exudate, no erythema, lips, buccal mucosa, and tongue normal and mucous membranes are moist NECK: supple, no nuchal rigidity, no adenopathy, non-tender LUNGS: Clear to auscultation. Normal chest wall mechanics HEART: no murmurs, S1 normal and S2 normal ABDOMEN: abdomen soft, non-tender, normo-active bowel sounds, no masses, no rebound or guarding. BACK: Back is symmetrical on inspection and there is no deformity, no midline tenderness, no CVA tenderness. SKIN: no rashes and no bruising UPPER EXTREMITIES: upper extremities are grossly normal. LOWER EXTREMITIES: Pitting edema in the bilateral lower extremities with erythema over the right anterior coles tracking up to the knee and erythema over the left coles tracking up into the left mid thigh medially. 2 wounds 1 at the base of the first metatarsal and 1 laterally tracking towards the heel. Neither have exposed bone. No drainage or discharge. NEURO EXAM: Normal sensorium, cranial nerves II-XII grossly intact, normal speech, no gross weakness of arms, no gross weakness of legs. MEDICAL DECISION MAKING: Patient is a 64-year-old diabetic who presents to the ER for inability to walk in combination with bilateral lower extremity swelling and redness. IV was established and blood work was obtained. Labs show a mild leukocytosis of nearly 11,000. No significant anemia. BMP with a creatinine 1.5. LFTs troponin and BNP were unremarkable. Lipase was normal. She has 2 wounds on the base of her left foot. No obvious osteo on exam. X-rays of the chest and foot were fairly unremarkable. She clearly has lymphedema bilaterally with chronic venous insufficiency which is likely worsened by bilateral cellulitis. Patient was given IV Rocephin and vancomycin. Duplex of lower extremities were obtained. Case was discussed with the hospitalist for further evaluation management treatment. Consults/Care Managements Discussions: Per [facility] Triage Nursing notes reviewed. Limited review of prior medical records performed Vital Signs: reviewed and remarkable for no significant abnormalities Differential diagnosis: Cellulitis, abscess, MRSA infection, DVT, necrotizing fasciitis, dermatitis, drug eruption, allergic reaction, as well as other pathologies. ER treatment provided: See below Diagnostics interpreted by me include EKG and cardiac monitoring as listed below: -Cardiac Monitoring: An order was placed for continuous cardiac monitoring. The monitor shows a rate of 80 with sinus rhythm. -ECG: Sinus rhythm rate 82 Left axis No PVCs QTc 432 Poor baseline in the lateral leads -Laboratory studies:Interpreted by me as stated above in MDM and shown below. Imaging studies: Xrays: As interpreted by me: Portable AP upright 1 view of the chest shows no focal infiltrate X-rays of the foot show no obvious osteo CTs show: None Duplex of the bilateral lower extremities was negative Procedures: None Critical Care: None Past Med/Surg History Problem List (Updated 02/08/25 @ 12:21 by Chaitanya Toscano DO) Lymphedema (Acute) Ambulatory dysfunction (Acute) Cellulitis (Acute) Loss of protective sensation of skin of deformed foot Gait instability Iliotibial band syndrome of right side Diabetic ulcer of left foot (Acute) Pressure ulcer of left foot, stage 1 (Acute) Acute gout Pedal edema (Acute) Weight gain (Acute) Cellulitis (Acute) Fluid overload (Acute) Aortic stenosis Mild 07/2024 Abrasion, left foot, initial encounter Diabetic ulcer of left foot associated with diabetes mellitus due to underlying condition, with fat layer exposed (Acute) Pyelonephritis (Acute) Trauma of ear canal Dietary counseling and surveillance Mass of soft tissue of ankle Ambulatory dysfunction (Acute) Diabetic foot infection (Acute) Diabetic foot infection Left radial head fracture Diabetic ulcer of left foot Diabetic ulcer of right foot Venous ulcers of both lower extremities Adnexal cyst Postprandial nausea Chronic diastolic (congestive) heart failure Iron deficiency anemia Iron deficiency anemia Perforated ear drum Acute osteomyelitis of toe of left foot (Acute) Diabetic infection of left foot (Acute) Toe gangrene Cellulitis of both lower extremities 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 Status post panniculectomy Musculoskeletal pain Cellulitis of left leg (Acute) Weakness (Acute) Weight gain (Acute) CHF (congestive heart failure) (Acute) Panniculitis (Acute) Acute kidney injury superimposed on CKD Obesity (Acute) Failure of outpatient treatment (Acute) Cellulitis (Acute) Supraclavicular lymphadenopathy Acute on chronic heart failure with preserved ejection fraction Open wound of abdomen (Acute) Morbid obesity HAYES (dyspnea on exertion) (Acute) CKD (chronic kidney disease) stage 3, GFR 30-59 ml/min (Acute) Acute exacerbation of CHF (congestive heart failure) (Acute) Cellulitis (Acute) Cellulitis of suprapubic region Acute on chronic heart failure VARINDER (acute kidney injury) Osteoarthritis of hip Constipation Lymphoma Hip pain, right Failure of outpatient treatment (Acute) CRF (chronic renal failure) (Acute) Edema of both lower extremities (Acute) Fluid overload (Acute) Edema of abdominal wall (Acute) Ulcer of both feet Volume overload Hx MRSA infection 09/2021 s/p left knee infection > resolved > continues with doxycycline daily for prevention Lymphadenopathy of left cervical region Urticaria Chronic ulcer of left foot with fat layer exposed Diabetes mellitus type 2 with neurological manifestations Candidiasis of skin Solitary kidney, congenital Bilateral hip pain Low back pain Weakness (Acute) Lower extremity edema (Acute) CHF (congestive heart failure) (Acute) Abdominal pannus Fatty liver Dependent lymphedema Stage 3b chronic kidney disease Anemia reason for procedure. iron infusions recently. 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 Other ovarian cyst, left side Vitamin D deficiency Peripheral neuropathy Lumbar spinal stenosis 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- DISCOVERED WITH INCIDENTAL IMAGING Gout CKD (chronic kidney disease) stage 3, GFR 30-59 ml/min monitoring Chronic back pain Acid reflux Medical History Cellulitis of foot, left Cellulitis of left foot Diabetes Acute kidney injury superimposed on stage 3b chronic kidney disease Acute UTI (urinary tract infection) Sepsis Diabetic foot ulcer Abdominal wall cellulitis Hypokalemia Mast cell disease B-cell lymphoma Hx-TIA (transient ischemic attack) Hx of sepsis Hypertension Lumbar spinal stenosis Arthritis Allergic rhinitis Gout Other ovarian cyst, left side Acid reflux Severe obstructive sleep apnea Stage 3 chronic kidney disease Fatty liver CHF (congestive heart failure) Solitary kidney, congenital Diabetes mellitus, type 2 Ulcer of foot History of COVID-19 Iron deficiency anemia Venous stasis of both lower extremities MDD (major depressive disorder), recurrent episode, moderate Ambulatory dysfunction Depression with anxiety Degenerative joint disease, shoulder, right Lymphedema Asthma Hyperlipidemia Surgical History Hx of biopsy (12/29/23) History of insertion of central venous access port History of revision of total replacement of left knee joint History of cardiac cath History of colonoscopy History of esophagogastroduodenoscopy (EGD) History of bilateral knee replacement (10/16/22) H/O knee surgery (12/2021) S/P tonsillectomy and adenoidectomy Status post total shoulder arthroplasty (10/17/18) History of carpal tunnel release H/O ventral hernia repair History of appendectomy History of cholecystectomy Family History Mother Diabetes Coronary heart disease Myocardial infarction S/P CABG x 3 Hypertension Gallbladder disease Sister Hodgkins lymphoma Brother Kidney disease Grandmother Breast cancer Aunt Ovarian cancer Father Peripheral vascular disease Daughter Diabetes Other Cancer No family history of adverse response to anesthesia Denies family history of Prostate cancer Colorectal cancer Social History Smoking Status: Former smoker Tobacco Type: Cigarettes Age Started Using Tobacco: 22; Age Quit Using Tobacco: 24; packs per day: 1; Second Hand Exposure: No; Do You Dip or Chew Tobacco: No; Hx Alcohol Use: No Hx Substance Use: No Preferred Language: Macedonian 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 Ability: Effective Visual Impairment: Limited Hearing Ability: Normal Curatorial Specialist Required: No Beliefs That Will Affect Care: None marital status: marital status details: ; lives with parents & 1 daughter Current Living Situation: Parent Current Living Situation Comment: lives with her mom and daughter current occupational status: disabled other: worked in [employer] in [place]; worked for [employer] Feels Safe at Home: Yes Childhood Exposure to Second-Hand Smoke: No Diet: regular Diet Comment: regular caffeine: No Dental Care, Regularly: No Physical Activity Frequency: Does not Exercise Seatbelt Use: always Sunscreen Use: Yes Assistive Devices: Walker Allergies Allergies Allergy/AdvReac Type Severity Reaction Status Date / Time Corticosteroids Allergy Severe Anaphylaxis Verified 02/08/25 10:02 (Glucocorticoids) clindamycin Allergy Intermediate Rash Verified 02/08/25 10:02 dog dander Allergy Intermediate Rash Verified 02/08/25 10:02 iron [From Venofer] Allergy Intermediate Rash Verified 02/08/25 10:02 morphine Allergy Intermediate mouth and Verified 02/08/25 10:02 face swells Penicillins Allergy Intermediate rash/hives Verified 02/08/25 10:02 adhesive Allergy Mild Skin rash Verified 02/08/25 10:02 localized zolpidem Allergy Unknown Unknown Verified 02/08/25 10:02 pregabalin AdvReac Intermediate "makes Verified 02/08/25 10:02 goofbert" Home Meds Home Medications Medication Instructions Recorded Confirmed calcium carbonate (Tums) 900 mg PO QAM 03/03/22 02/08/25 cyanocobalamin (vitamin B-12) 1,000 mcg PO QAM 03/03/22 02/08/25 1,000 mcg tablet (Vitamin B-12) aspirin 81 mg tablet,delayed 81 mg PO QAM 06/25/23 02/08/25 release cetirizine 10 mg tablet (Zyrtec) 10 mg PO BID 10/20/23 02/08/25 epinephrine 0.3 mg/0.3 mL 0.3 mg IM UD PRN anaphylaxis 01/06/24 02/08/25 injection, auto-injector losartan 25 mg tablet 25 mg PO QAM 07/23/24 02/08/25 nystatin 100,000 unit/gram topical 1 applic EXT TID PRN FLARE 07/23/24 02/08/25 ointment buspirone 15 mg tablet 15 mg PO QID 08/01/24 02/08/25 cholecalciferol (vitamin D3) 50 2,000 unit PO TID 09/01/24 02/08/25 mcg (2,000 unit) capsule (Vitamin D3) hydroxyzine HCl 25 mg tablet 25 mg PO HS 09/01/24 02/08/25 sennosides 8.6 mg tablet (Senokot) 17.2 mg PO BID 10/06/24 02/08/25 famotidine 40 mg tablet 40 mg PO QPM 10/23/24 02/08/25 polyethylene glycol 3350 17 17 g PO DAILY PRN Constipation 12/06/24 02/08/25 gram/dose oral powder (Miralax) duloxetine 60 mg capsule,delayed 60 mg PO BID 01/08/25 02/08/25 release metoprolol succinate 25 mg 25 mg PO QAM 01/08/25 02/08/25 tablet,extended release 24 hr multivitamin (Daily-Holli tablet) 1 tab PO QAM 01/08/25 02/08/25 bupropion HCl 150 mg 24 hr tablet, 300 mg PO QAM 02/08/25 extended release Previous Rx's Medication Instructions Recorded albuterol sulfate 2.5 mg/3 mL 2.5 mg (3 mL) inhalation Q6H PRN 06/25/23 (0.083 %) solution for nebulization Shortness Of Breath #90 mL diclofenac sodium 1 % topical gel 4 g EXT QID #1 tube 08/30/23 (Voltaren Arthritis Pain) nystatin 100,000 unit/gram topical 1 applic topical TID PRN yeast 08/30/23 powder rash under breasts, abdominal skin folds #30 grams CPAP Supplies #1 ea 09/28/23 CPAP Machine #1 ea 09/29/23 empagliflozin 10 mg tablet 10 mg PO QAM #90 tabs 12/02/23 (Jardiance) montelukast 10 mg tablet 10 mg PO QPM #90 tabs 01/03/24 (Singulair) albuterol sulfate 90 mcg/actuation 2 puff inhalation Q4H PRN 01/04/24 aerosol inhaler (Ventolin HFA) Shortness Of Breath Or Wheezing #18 grams acetaminophen 500 mg tablet 1,000 mg (2 x 500 mg) PO TID PRN 02/04/24 fever or pain #90 tabs gabapentin 400 mg capsule 400 mg PO QID #360 caps 06/30/24 sucralfate 1 gram tablet (Carafate) 1 g PO AC PRN heartburn #30 tabs 07/31/24 allopurinol 100 mg tablet 100 mg PO BID #180 tabs 09/13/24 gentamicin 0.1 % topical ointment 1 applic topical DAILY 2 weeks #30 11/09/24 grams spironolactone 25 mg tablet 25 mg PO BID #180 tabs 12/01/24 pantoprazole 40 mg tablet,delayed 40 mg PO BID #90 tabs 12/07/24 release (Protonix) potassium chloride 20 mEq 20 meq PO QAM #90 tabs 12/18/24 tablet,extended release(part/cryst) (Klor-Con M) torsemide 20 mg tablet 60 mg (3 x 20 mg) PO Q2D #30 tabs 12/18/24 tramadol 50 mg tablet 50 mg PO BID PRN pain #30 tabs 01/08/25 oxycodone 5 mg tablet 5 mg PO Q6H PRN pain (scale score 01/14/25 7-10) #10 tabs Results & Data (ED) Vital Signs Vital Signs - 24 hr 02/08/25 11:04 02/08/25 11:23 Temperature 36.5 C Temperature Source Temporal Artery Scan Pulse Rate 60 Respiratory Rate 18 Blood Pressure 121/76 Blood Pressure Mean 91 Pulse Oximetry 93 Oxygen Delivery Method Room Air Room Air Sepsis Recent Fever Within 48 Hours No Sepsis New/Unexplained Change in Mental Status No Sepsis Action Taken by Nursing No Action Required Laboratory Data 02/08/25 11:51 02/08/25 11:35 Lab Results 02/08/25 02/08/25 Range/Units 11:35 11:51 WBC 10.93 H (4.8-10.8) K/ul RBC 4.69 (4.20-5.40) M/uL Hgb 12.6 (12.0-16.0) g/dl Hct 38.7 (37.0-47.0) % MCV 82.5 (80.0-100.0) fL MCH 26.9 (25.0-34.0) pg MCHC 32.6 (32.0-36.0) g/dL RDW Std Deviation 44.5 (36.4-46.3) fL RDW Coeff of Cleo 14.8 H (11.5-14.5) % Plt Count 289 (130-400) K/uL MPV 9.6 (9.4-12.4) fL Immature Gran % (Auto) 0.4 % Neut % (Auto) 75.9 % Lymph % (Auto) 12.9 % [place] % (Auto) 5.6 % Eos % (Auto) 4.8 % Baso % (Auto) 0.4 % Neut # (Auto) 8.30 H (1.40-6.50) K/uL Lymph # (Auto) 1.41 (1.20-3.40) K/uL [place] # (Auto) 0.61 H (0.11-0.59) K/uL Eos # (Auto) 0.53 H (0.00-0.50) K/uL Baso # (Auto) 0.04 (0.00-0.20) K/uL Immature Gran # (Auto) 0.04 (0.01-0.20) K/uL Sodium 139 (136-145) mmol/L Potassium 3.8 (3.5-5.1) mmol/L Chloride 100 (98-107) mmol/L Carbon Dioxide 32 (21-32) mmol/L Anion Gap 7 (3-11) BUN 20 (6-23) mg/dl Creatinine 1.55 H (0.6-1.2) mg/dl Est Cr Clr Drug Dosing Not Reportable eGFR 37.65 BUN/Creatinine Ratio 12.9 (10-20) Glucose 90 (70-99(Fasting)) mg/dl Calcium 9.3 (8.6-10.3) mg/dl Total Bilirubin 0.7 (0.2-1.0) mg/dl AST 17 (13-39) U/L ALT 13 (7-52) U/L Alkaline Phosphatase 85 (34-104) U/L Troponin I High Sens 3.2 (0-14) pg/ml B-Natriuretic Peptide 18 (0-100) pg/ml Total Protein 7.9 (6.0-8.3) gm/dl Albumin 3.9 (3.4-5.0) gm/dl Globulin 4.0 (2.5-4.0) gm/dl Albumin/Globulin Ratio 1.0 (0.9-2) Lipase 18 (11-82) U/L Administered Medications Discontinued Medications Ceftriaxone Sodium (Rocephin) 2,000 mg in 50 mls @ 100 mls/hr IV NOW STA Stop: 02/08/25 11:53 Last Infusion: 02/08/25 12:12 Dose: Infused Documented By: Admin: 02/08/25 11:40 Dose: 100 mls/hr Documented By: BS Imaging Data Radiologist's Impression: Chest X-Ray 02/08/25 11:23 XR chest 1V portable CLINICAL HISTORY: Chest pain, nonspecific COMPARISON STUDY: 12/06/2024 FINDINGS: Stable mild cardiomegaly without pulmonary vascular congestion. No consolidation or pleural effusion. No pneumothorax. IMPRESSION: No acute findings. ACT 112: Negative or not required by law. Electronically signed by: Yohan Wright M.D. 02/08/2025 11:56 AM Foot X-Ray 02/08/25 11:24 XR foot LT min 3V routine CLINICAL HISTORY: 2 wounds base left foot COMPARISON: 01/08/2025 FINDINGS: Stable amputation of the third toe. There is soft tissue swelling at the great toe and about the first MTP joint. No acute fracture or dislocation is seen. No evidence of osteomyelitis. IMPRESSION: No osteomyelitis seen. ACT 112: Negative or not required by law. Electronically signed by: Yohan Wright M.D. 02/08/2025 12:01 PM Venous Doppler Study 02/08/25 11:24 BILATERAL LOWER EXTREMITY VENOUS DOPPLER HISTORY: Acute pain and swelling of the lower legs swelling b/l COMPARISON STUDY: None. FINDINGS: Limited exam secondary to patient body habitus and subcutaneous edema. There is normal compressibility, flow, and augmentation within the bilateral lower extremity deep venous systems. IMPRESSION: No DVT within the right or left lower extremity. ACT 112: Negative or not required by law. Electronically signed by: Reinaldo Todd M.D. 02/08/2025 12:45 PM Discharge Plan Visit Data Chief Complaint: Leg Injury/Pain Stated Complaint: SWELLING IN LEGS AND FEET ED Provider: Chaitanya Toscano Discharge Problem: Cellulitis, Ambulatory dysfunction, Lymphedema Condition: Fair Forms Stand Alone Forms: My [facility] Prescriptions Prescriptions: No Action gentamicin 0.1 % ointment 1 applic topical DAILY 14 Days Qty: 30 1RF (DME) CPAP Supplies Misc See Rx Instructions .Route Qty: 1 0RF Rx Instructions: As directed (DME) CPAP Machine Misc See Rx Instructions .Route Qty: 1 0RF Rx Instructions: As directed 11cm water pressure Jardiance 10 mg tablet 10 mg PO QAM Qty: 90 3RF Hold Instructions: Provider's Order Rx Instructions: for congestive heart failure montelukast [Singulair] 10 mg tablet 10 mg PO QPM Qty: 90 3RF albuterol sulfate [Ventolin HFA] 90 mcg/actuation HFA aerosol inhaler 2 puff INHALATION Q4H PRN (Reason: Shortness Of Breath Or Wheezing) Qty: 18 3RF gabapentin 400 mg capsule 400 mg PO QID Qty: 360 0RF allopurinol 100 mg tablet 100 mg PO BID Qty: 180 1RF pantoprazole [Protonix] 40 mg tablet,delayed release (DR/EC) 40 mg PO BID Qty: 90 3RF potassium chloride [Klor-Con M20] 20 mEq tablet,ER particles/crystals 20 meq PO QAM Qty: 90 3RF aspirin 81 mg tablet,delayed release (DR/EC) 81 mg PO QAM albuterol sulfate 2.5 mg /3 mL (0.083 %) solution for nebulization 2.5 mg inhalation Q6H PRN (Reason: Shortness Of Breath) Qty: 90 1RF Rx Instructions: needed spironolactone 25 mg tablet 25 mg PO BID Qty: 180 3RF Rx Instructions: ON HOLD FOR TWO WEEKS OF 12/04/2024 buspirone 15 mg tablet 15 mg PO QID tramadol 50 mg tablet 50 mg PO BID PRN (Reason: pain) Qty: 30 0RF bupropion HCl 150 mg tablet extended release 24 hr 300 mg PO QAM cyanocobalamin (vitamin B-12) [Vitamin B-12] 1,000 mcg tablet 1,000 mcg PO QAM Tums 300 mg (750 mg) tablet,chewable 900 mg PO QAM diclofenac sodium [Voltaren Arthritis Pain] 1 % Gel 4 g EXT QID Qty: 1 0RF Rx Instructions: purchase [id number]; may use 4 grams on your lower back, either knee, either hip, back of neck. nystatin 100,000 unit/gram powder 1 applic topical TID PRN (Reason: yeast rash under breasts, abdominal skin folds) Qty: 30 0RF hydroxyzine HCl 25 mg tablet 25 mg PO HS cholecalciferol (vitamin D3) [Vitamin D3] 50 mcg (2,000 unit) capsule 2,000 unit PO TID sennosides [Senokot] 8.6 mg tablet 17.2 mg PO BID Rx Instructions: purchase [id number] famotidine 40 mg tablet 40 mg PO QPM polyethylene glycol 3350 [Miralax] 17 gram/dose powder 17 g PO DAILY PRN (Reason: Constipation) Rx Instructions: Take 17gm mixed in 8 ounces of water once daily. Can be increased up to TID as needed for constipation. torsemide 20 mg Tablet 60 mg PO Q2D Qty: 30 0RF cetirizine [Zyrtec] 10 mg tablet 10 mg PO BID epinephrine 0.3 mg/0.3 mL auto-injector 0.3 mg IM UD PRN (Reason: anaphylaxis) acetaminophen 500 mg tablet 1,000 mg PO TID PRN (Reason: fever or pain) Qty: 90 0RF losartan 25 mg tablet 25 mg PO QAM nystatin 100,000 unit/gram ointment 1 applic EXT TID PRN (Reason: FLARE) sucralfate [Carafate] 1 gram tablet 1 g PO AC PRN (Reason: heartburn) Qty: 30 0RF multivitamin [Daily-Holli] Tablet 1 tab PO QAM duloxetine 60 mg capsule,delayed release(DR/EC) 60 mg PO BID metoprolol succinate 25 mg tablet extended release 24 hr 25 mg PO QAM oxycodone 5 mg tablet 5 mg PO Q6H PRN (Reason: pain (scale score 7-10)) Qty: 10 0RF Rx Instructions: Take 1 tablet by mouth every 6 hours as needed for severe pain (scale 7-10) Referrals Referrals: Awilda Eric CRNP [Primary Care Provider] - Discharge Problem: Cellulitis Qualifiers: Site of cellulitis: unspecified site Qualified Code(s): L03.90 - Cellulitis, unspecified
[2025-02-08] MEDS: cefTRIAXone SODIUM 2,000 MG/50 ML BAG IV STA (11:40)
--- NOTE | 2025-02-08 11:57 | XRay Report ---
XR chest 1V portable CLINICAL HISTORY: Chest pain, nonspecific COMPARISON STUDY: 12/06/2024 FINDINGS: Stable mild cardiomegaly without pulmonary vascular congestion. No consolidation or pleural effusion. No pneumothorax. IMPRESSION: No acute findings. ACT 112: Negative or not required by law. Electronically signed by: Yohan Wright M.D. 02/08/2025 11:56 AM
--- NOTE | 2025-02-08 12:03 | XRay Report ---
XR foot LT min 3V routine CLINICAL HISTORY: 2 wounds base left foot COMPARISON: 01/08/2025 FINDINGS: Stable amputation of the third toe. There is soft tissue swelling at the great toe and abo ut the first MTP joint. No acute fracture or dislocation is seen. No evidence of osteomyelitis. IMPRESSION: No osteomyelitis seen. ACT 112: Negative or not required by law. Electronically signed by: Yohan Wright M.D. 02/08/2025 12:01 PM
[2025-02-08 12:04] LABS: Alanine Aminotransferase 13 U/L (7-52); Albumin Globulin Ratio 1.0 (0.9-2); Albumin Level 3.9 gm/dl (3.4-5.0); Alkaline Phosphatase 85 U/L (34-104); Anion Gap 7 (3-11); Bilirubin,Total 0.7 mg/dl (0.2-1.0); Blood Urea Nitrogen 20 mg/dl (6-23); Calcium 9.3 mg/dl (8.6-10.3); Carbon Dioxide 32 mmol/L (21-32); Chloride 100 mmol/L (98-107); Globulin 4.0 gm/dl (2.5-4.0); Glucose 90 mg/dl (70-99(Fasting)); Lipase 18 U/L (11-82); Potassium 3.8 mmol/L (3.5-5.1); Sodium 139 mmol/L (136-145); Total Protein 7.9 gm/dl (6.0-8.3)
[2025-02-08 12:11] LABS: Hematocrit (blood only) 38.7 % (37.0-47.0); Hemoglobin 12.6 g/dl (12.0-16.0); Immature Granulocytes # (auto) 0.04 K/uL (0.01-0.20); Immature Granulocytes % (auto) 0.4 %; Mean Corpuscular Hemoglobin 26.9 pg (25.0-34.0); Mean Corpuscular Volume 82.5 fL (80.0-100.0); Platelet Count 289 K/uL (130-400); RDW Standard Deviation 44.5 fL (36.4-46.3); Red Blood Count 4.69 M/uL (4.20-5.40); White Blood Count 10.93 K/ul (4.8-10.8)
[2025-02-08] MEDS ORDERED: VANCOMYCIN CONSULT ACTIVE PRN (12:15)
--- NOTE | 2025-02-08 12:47 | Ultrasound Report ---
BILATERAL LOWER EXTREMITY VENOUS DOPPLER HISTORY: Acute pain and swelling of the lower legs swelling b/l COMPARISON STUDY: None. FINDINGS: Limited exam secondary to patient body habitus and subcutaneous edema. There is normal comp ressibility, flow, and augmentation within the bilateral lower extremity deep venous systems. IMPRESSION: No DVT within the right or left lower extremity. ACT 112: Negative or not required by law. Electronically signed by: Reinaldo Todd M.D. 02/08/2025 12:45 PM
--- NOTE | 2025-02-08 13:13 | History & Physical Report ---
Date of Service February 08, 2025 Assessment & Plan (1) Cellulitis: (2) Lymphedema: (3) Acute kidney injury superimposed on stage 3b chronic kidney disease: (4) Acute on chronic heart failure with preserved ejection fraction: (5) Hx-TIA (transient ischemic attack): (6) Diabetes mellitus type 2 with neurological manifestations: Plan This is a 64-year-old female with a history of recurrent lower extremity cellulitis, diabetic foot ulcer infection, who presents to the hospital today with worsening bilateral lower extremity edema redness #Nonpurulent cellulitis bilateral lower extremity Failed outpatient management No evidence of purulence or weeping. During her previous hospital stay, she completed a course of antibiotics. The most recent wound culture grew MSSA Will start her on IV ceftriaxone Also IV Bumex 1 mg twice daily to help with edema on 01/13, Left foot/ankle MRI did not reveal evidence of acute osteomyelitis Foot x-ray today did not show any evidence of osteomyelitis #T2DM With neuropathy, on gabapentin A1c 5.5% on 01/09/2025 Hold Jardiance Loose SSI with target BSG range 110-150mg/dL, CF 40, carb ratio deferred T2DM diet BSG ACHS Adjust regimen as needed #HFpEF Daily weights Strict I&O monitoring Hold torsemide 60mg p.o. BID Start IV Bumex 1 mg twice daily Continue spironolactone 25 mg p.o. daily # Chronic back pain Currently taking oxycodone 5 mg tablets; prescribed in December 2024; Oxycodone for left foot pain (as above) Diclofenac gel application QID #ANDRZEJ CPAP HS #HTN Continue losartan, metoprolol #CKD, stage IIIa/b Serum creatinine close to baseline Caution use of nephrotoxic agents #Gout Continue allopurinol #Asthma | Allergies Continue cetirizine, hydroxyzine, montelukast, inhaler, and nebs #Anxiety | Depression Continue buspirone, bupropion, duloxetine #GERD Continue famotidine, pantoprazole, and sucralfate PRN #H/o CVA April 2017; continue aspirin Full code History of Present Illness Chief Complaint: leg swelling, redness Primary Care Provider: CARRIE Monaco Is a 65-year-old female with a history of obstructive sleep apnea, morbid obesity, previous CVA, heart failure with preserved ejection fraction, recurrent lower extremity cellulitis diabetic foot infections who presents to the hospital today on account of worsening lower extremity swelling and redness. Patient has a history of recurrent lower extremity cellulitis and also diabetic foot infections and often goes to wound care. Has been admitted to the hospital several times for the same complaint. Last time she was discharged from this facility was January 13, 2025 after she was managed for diabetic foot ulcer, she completed a course of daptomycin metronidazole and cefepime. However over the past several days, she noticed that her legs were beginning to get more swollen and red. She denies fevers or chills and denies any weeping wounds. Here in the emergency department WBC was 11,000. Cultures have been obtained and she has been empirically started on IV antibiotics and will be admitted to the hospital further management. Allergies Allergy/AdvReac Type Severity Reaction Status Date / Time Corticosteroids Allergy Severe Anaphylaxis Verified 02/08/25 10:02 (Glucocorticoids) clindamycin Allergy Intermediate Rash Verified 02/08/25 10:02 dog dander Allergy Intermediate Rash Verified 02/08/25 10:02 iron [From Venofer] Allergy Intermediate Rash Verified 02/08/25 10:02 morphine Allergy Intermediate mouth and Verified 02/08/25 10:02 face swells Penicillins Allergy Intermediate rash/hives Verified 02/08/25 10:02 adhesive Allergy Mild Skin rash Verified 02/08/25 10:02 localized zolpidem Allergy Unknown Unknown Verified 02/08/25 10:02 pregabalin AdvReac Intermediate "makes Verified 02/08/25 10:02 goofy" Home Medications Medication Instructions Recorded Confirmed Type calcium carbonate (Tums) 900 mg PO QAM 03/03/22 02/08/25 History cyanocobalamin (vitamin B-12) 1,000 mcg PO QAM 03/03/22 02/08/25 History 1,000 mcg tablet (Vitamin B-12) albuterol sulfate 2.5 mg/3 mL 2.5 mg (3 mL) inhalation Q6H PRN 06/25/23 02/08/25 Rx (0.083 %) solution for nebulization Shortness Of Breath #90 mL aspirin 81 mg tablet,delayed 81 mg PO QAM 06/25/23 02/08/25 History release diclofenac sodium 1 % topical gel 4 g EXT QID #1 tube 08/30/23 02/08/25 Rx (Voltaren Arthritis Pain) nystatin 100,000 unit/gram topical 1 applic topical TID PRN yeast 08/30/23 02/08/25 Rx powder rash under breasts, abdominal skin folds #30 grams CPAP Supplies #1 ea 09/28/23 02/08/25 Rx CPAP Machine #1 ea 09/29/23 02/08/25 Rx cetirizine 10 mg tablet (Zyrtec) 10 mg PO BID 10/20/23 02/08/25 History empagliflozin 10 mg tablet 10 mg PO QAM #90 tabs 12/02/23 02/08/25 Rx (Jardiance) montelukast 10 mg tablet 10 mg PO QPM #90 tabs 01/03/24 02/08/25 Rx (Singulair) albuterol sulfate 90 mcg/actuation 2 puff inhalation Q4H PRN 01/04/24 02/08/25 Rx aerosol inhaler (Ventolin HFA) Shortness Of Breath Or Wheezing #18 grams epinephrine 0.3 mg/0.3 mL 0.3 mg IM UD PRN anaphylaxis 01/06/24 02/08/25 History injection, auto-injector acetaminophen 500 mg tablet 1,000 mg (2 x 500 mg) PO TID PRN 02/04/24 02/08/25 Rx fever or pain #90 tabs gabapentin 400 mg capsule 400 mg PO QID #360 caps 06/30/24 02/08/25 Rx losartan 25 mg tablet 25 mg PO QAM 07/23/24 02/08/25 History nystatin 100,000 unit/gram topical 1 applic EXT TID PRN FLARE 07/23/24 02/08/25 History ointment sucralfate 1 gram tablet (Carafate) 1 g PO AC PRN heartburn #30 tabs 07/31/24 02/08/25 Rx buspirone 15 mg tablet 15 mg PO QID 08/01/24 02/08/25 History cholecalciferol (vitamin D3) 50 2,000 unit PO TID 09/01/24 02/08/25 History mcg (2,000 unit) capsule (Vitamin D3) hydroxyzine HCl 25 mg tablet 25 mg PO HS 09/01/24 02/08/25 History allopurinol 100 mg tablet 100 mg PO BID #180 tabs 09/13/24 02/08/25 Rx sennosides 8.6 mg tablet (Senokot) 17.2 mg PO BID 10/06/24 02/08/25 History famotidine 40 mg tablet 40 mg PO QPM 10/23/24 02/08/25 History gentamicin 0.1 % topical ointment 1 applic topical DAILY 2 weeks #30 11/09/24 02/08/25 Rx grams spironolactone 25 mg tablet 25 mg PO BID #180 tabs 12/01/24 02/08/25 Rx polyethylene glycol 3350 17 17 g PO DAILY PRN Constipation 12/06/24 02/08/25 History gram/dose oral powder (Miralax) pantoprazole 40 mg tablet,delayed 40 mg PO BID #90 tabs 12/07/24 02/08/25 Rx release (Protonix) potassium chloride 20 mEq 20 meq PO QAM #90 tabs 12/18/24 02/08/25 Rx tablet,extended release(part/cryst) (Klor-Con M) torsemide 20 mg tablet 60 mg (3 x 20 mg) PO Q2D #30 tabs 12/18/24 02/08/25 Rx duloxetine 60 mg capsule,delayed 60 mg PO BID 01/08/25 02/08/25 History release metoprolol succinate 25 mg 25 mg PO QAM 01/08/25 02/08/25 History tablet,extended release 24 hr multivitamin (Daily-Holli tablet) 1 tab PO QAM 01/08/25 02/08/25 History tramadol 50 mg tablet 50 mg PO BID PRN pain #30 tabs 01/08/25 02/08/25 Rx oxycodone 5 mg tablet 5 mg PO Q6H PRN pain (scale score 01/14/25 02/08/25 Rx 7-10) #10 tabs bupropion HCl 150 mg 24 hr tablet, 300 mg PO QAM 02/08/25 History extended release Past Med/Surg History Problem List (Updated 02/08/25 @ 12:21 by Chaitanya Toscano DO) Lymphedema (Acute) Ambulatory dysfunction (Acute) Cellulitis (Acute) Loss of protective sensation of skin of deformed foot Gait instability Iliotibial band syndrome of right side Diabetic ulcer of left foot (Acute) Pressure ulcer of left foot, stage 1 (Acute) Acute gout Pedal edema (Acute) Weight gain (Acute) Cellulitis (Acute) Fluid overload (Acute) Aortic stenosis Mild 07/2024 Abrasion, left foot, initial encounter Diabetic ulcer of left foot associated with diabetes mellitus due to underlying condition, with fat layer exposed (Acute) Pyelonephritis (Acute) Trauma of ear canal Dietary counseling and surveillance Mass of soft tissue of ankle Ambulatory dysfunction (Acute) Diabetic foot infection (Acute) Diabetic foot infection Left radial head fracture Diabetic ulcer of left foot Diabetic ulcer of right foot Venous ulcers of both lower extremities Adnexal cyst Postprandial nausea Chronic diastolic (congestive) heart failure Iron deficiency anemia Iron deficiency anemia Perforated ear drum Acute osteomyelitis of toe of left foot (Acute) Diabetic infection of left foot (Acute) Toe gangrene Cellulitis of both lower extremities 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 Status post panniculectomy Musculoskeletal pain Cellulitis of left leg (Acute) Weakness (Acute) Weight gain (Acute) CHF (congestive heart failure) (Acute) Panniculitis (Acute) Acute kidney injury superimposed on CKD Obesity (Acute) Failure of outpatient treatment (Acute) Cellulitis (Acute) Supraclavicular lymphadenopathy Acute on chronic heart failure with preserved ejection fraction Open wound of abdomen (Acute) Morbid obesity HAYES (dyspnea on exertion) (Acute) CKD (chronic kidney disease) stage 3, GFR 30-59 ml/min (Acute) Acute exacerbation of CHF (congestive heart failure) (Acute) Cellulitis (Acute) Cellulitis of suprapubic region Acute on chronic heart failure VARINDER (acute kidney injury) Osteoarthritis of hip Constipation Lymphoma Hip pain, right Failure of outpatient treatment (Acute) CRF (chronic renal failure) (Acute) Edema of both lower extremities (Acute) Fluid overload (Acute) Edema of abdominal wall (Acute) Ulcer of both feet Volume overload Hx MRSA infection 09/2021 s/p left knee infection > resolved > continues with doxycycline daily for prevention Lymphadenopathy of left cervical region Urticaria Chronic ulcer of left foot with fat layer exposed Diabetes mellitus type 2 with neurological manifestations Candidiasis of skin Solitary kidney, congenital Bilateral hip pain Low back pain Weakness (Acute) Lower extremity edema (Acute) CHF (congestive heart failure) (Acute) Abdominal pannus Fatty liver Dependent lymphedema Stage 3b chronic kidney disease Anemia reason for procedure. iron infusions recently. 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 Other ovarian cyst, left side Vitamin D deficiency Peripheral neuropathy Lumbar spinal stenosis 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- DISCOVERED WITH INCIDENTAL IMAGING Gout CKD (chronic kidney disease) stage 3, GFR 30-59 ml/min monitoring Chronic back pain Acid reflux Medical History Cellulitis of foot, left Cellulitis of left foot Diabetes Acute kidney injury superimposed on stage 3b chronic kidney disease Acute UTI (urinary tract infection) Sepsis Diabetic foot ulcer Abdominal wall cellulitis Hypokalemia Mast cell disease B-cell lymphoma Hx-TIA (transient ischemic attack) Hx of sepsis Hypertension Lumbar spinal stenosis Arthritis Allergic rhinitis Gout Other ovarian cyst, left side Acid reflux Severe obstructive sleep apnea Stage 3 chronic kidney disease Fatty liver CHF (congestive heart failure) Solitary kidney, congenital Diabetes mellitus, type 2 Ulcer of foot History of COVID-19 Iron deficiency anemia Venous stasis of both lower extremities MDD (major depressive disorder), recurrent episode, moderate Ambulatory dysfunction Depression with anxiety Degenerative joint disease, shoulder, right Lymphedema Asthma Hyperlipidemia Surgical History Hx of biopsy (12/29/23) History of insertion of central venous access port History of revision of total replacement of left knee joint History of cardiac cath History of colonoscopy History of esophagogastroduodenoscopy (EGD) History of bilateral knee replacement (10/16/22) H/O knee surgery (12/2021) S/P tonsillectomy and adenoidectomy Status post total shoulder arthroplasty (10/17/18) History of carpal tunnel release H/O ventral hernia repair History of appendectomy History of cholecystectomy Family History Mother Diabetes Coronary heart disease Myocardial infarction S/P CABG x 3 Hypertension Gallbladder disease Sister Hodgkins lymphoma Brother Kidney disease Grandmother Breast cancer Aunt Ovarian cancer Father Peripheral vascular disease Daughter Diabetes Other Cancer No family history of adverse response to anesthesia Denies family history of Prostate cancer Colorectal cancer Social History Smoking Status: Former smoker Tobacco Type: Cigarettes Age Started Using Tobacco: 22; Age Quit Using Tobacco: 24; packs per day: 1; Second Hand Exposure: No; Do You Dip or Chew Tobacco: No; Hx Alcohol Use: No Hx Substance Use: No Preferred Language: Monegasque 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 Ability: Effective Visual Impairment: Limited Hearing Ability: Normal Counselor Education Professor Required: No Beliefs That Will Affect Care: None marital status: marital status details: ; lives with parents & 1 daughter Current Living Situation: Parent Current Living Situation Comment: lives with her mom and daughter current occupational status: disabled other: worked in [employer] in [employer]; worked for [employer] district Feels Safe at Home: Yes Childhood Exposure to Second-Hand Smoke: No Diet: regular Diet Comment: regular caffeine: No Dental Care, Regularly: No Physical Activity Frequency: Does not Exercise Seatbelt Use: always Sunscreen Use: Yes Assistive Devices: Walker Review of Systems Review of Systems: All systems reviewed are negative, apart from the ones contained in the history. Physical Exam Physical Exam: The patient is awake, alert and oriented 3, well developed and well nourished, normocephalic and atraumatic, lying in bed and in no acute distress. HEENT--PERRL, EOMI, mucous membranes and oropharynx mildly dry Neck--supple. No JVD. No bruits. Thyroid normal, trachea midline, no adenopathy. Heart--normal S1 and S2. No murmurs, rubs or gallops. Lungs--clear bilaterally, no respiratory distress, no accessory muscle use. Abdomen--normal bowel sounds and soft. Extremities--Bilateral lower extremity edema, redness Dermatologic--normal skin turgor, normal color, no abnormal lymph nodes, no rash. Neurologic--cranial nerves II through XII grossly intact. Rheumatologic--normal range of motion. Psychiatric--normal affect. Results & Data Results & Data Vital Signs (Past 12 Hours) Vital Signs Temp Pulse Resp BP Pulse Ox O2 Del Method 02/08/25 11:23 Room Air 02/08/25 11:04 97.7 F 60 18 121/76 93 Room Air PG Care Time/CCT Total # of Minutes Spent Total Time Spent with Patient: Total time spent is greater than 50% in coordination of care (as documented) at patient's floor/unit and/or counseling patient: Coding Level of Care Code 12987 INT INP/OBS CARE MIN Diagnoses Cellulitis L03.90 Site of cellulitis: unspecified site Lymphedema I89.0 Acute kidney injury superimposed on stage 3b chronic kidney disease N17.9; N18.32 Acute on chronic heart failure with preserved ejection fraction I50.33 Hx-TIA (transient ischemic attack) Z86.73 Diabetes mellitus type 2 with neurological manifestations E11.49 Time Spent (min) 75 (1) Cellulitis Site of cellulitis: unspecified site Qualified Code(s): L03.90 - Cellulitis, unspecified
[2025-02-08] MEDS: VANCOMYCIN HCL 2,750 MG in SODIUM CHLORIDE 0.9% 500 ML IV ONE (14:50)
[2025-02-08] MEDS: GABAPENTIN 400 MG CAP PO SCH (16:29)
[2025-02-08] MEDS: busPIRone 15 MG TAB PO SCH (16:29)
[2025-02-08] MEDS: BUMETANIDE 1 MG in SYRINGE 0 ML IV SCH (17:32)
[2025-02-08] MEDS: INSULIN ASPART PER UNIT CHARGE SC SCH (17:32)
[2025-02-08] MEDS: CETIRIZINE HCL 10 MG TABLET PO SCH (20:53)
[2025-02-08] MEDS: CHOLECALCIFEROL 25 MCG (1000 UNITS) TAB PO SCH (20:53)
[2025-02-08] MEDS: ACETAMINOPHEN 325 MG TAB PO PRN (21:01)
[2025-02-09 06:15] LABS: Hematocrit (blood only) 33.7 % (37.0-47.0); Hemoglobin 11.2 g/dl (12.0-16.0); Mean Corpuscular Hemoglobin 26.7 pg (25.0-34.0); Mean Corpuscular Volume 80.2 fL (80.0-100.0); Platelet Count 277 K/uL (130-400); RDW Standard Deviation 42.6 fL (36.4-46.3); Red Blood Count 4.20 M/uL (4.20-5.40); White Blood Count 7.90 K/ul (4.8-10.8)
[2025-02-09 06:38] LABS: Anion Gap 7.0 (3-11); Blood Urea Nitrogen 20.0 mg/dl (6-23); Calcium 8.4 mg/dl (8.6-10.3); Carbon Dioxide 31.0 mmol/L (21-32); Chloride 101.0 mmol/L (98-107); Creatinine Clr Calc Pharmacy 60.5 ml/min; Glucose 94.0 mg/dl (70-99(Fasting)); Potassium 3.3 mmol/L (3.5-5.1); Sodium 139.0 mmol/L (136-145)
[2025-02-09] MEDS: POTASSIUM CHLORIDE CRTAB 20 MEQ TABCR PO STA (08:19)
[2025-02-09] MEDS: ASPIRIN 81 MG ECTAB PO SCH (08:22)
[2025-02-09] MEDS: CALCIUM CARBONATE 500 MG CHEWABLE TAB PO SCH (08:23)
[2025-02-09] MEDS: CYANOCOBALAMIN (B-12) 500 MCG TABLET PO SCH (08:23)
[2025-02-09] MEDS: POTASSIUM CHLORIDE CRTAB 20 MEQ TABCR PO SCH (08:24)
--- NOTE | 2025-02-09 09:51 | Palliative Care Consultation ---
Date of Consultation February 09, 2025 Assessment & Plan (1) Foot pain, left: Currently managed to her liking with OxyIR 5mg PO q6h prn Tells me home regimen with tramadol did not help Her complex case was discussed with PCP prior to this visit and we were in agreement that minimal opioid rx is best given her overall medical complexity. Bowel regimen ordered (2) Weakness generalized: Multiple admissions for recurrent wound infection, bedrest, no rehab, no in home PT - she and dtr repeatedly refuse home health nursing which would come with home PT. She tells me this is bc her Mom can manage her wounds and "the wound center always tells me the dressings look gen so Mom is doing a good job, why do I need a nurse then?" Discussed how repeated admissions, progressive chronic illness and prolonged bedrest can all take away from muscle conditioning and needs PT/rehab to build b ack up. This happens over time and needs daily attention. (3) Advanced care planning/counseling discussion: I had a 60 min face to face with Trevor at bedside. She referenced not being able to avoid weight bearing on left foot because right hip needs replacement. do you feel this is something we can think about doing while she is here? she saw ortho previously. She will need rehab and then move to LTC until this wound heals, and use that time to let care management coordinator mgt help find her better housing etc. We had a long discussion about her complex, progressive chronic illness: she did not have a good understanding of diabetes other than blood sugars. She felt that since the BS #s were often "ok," that her DM was not an issue. We spoke about the longer term end organ impact of DM tania on circulation, kidney and heart function. We spoke about other complications such as neuropathy, vision changes, muscle weakness. She tells me her neuropathy has to be from her back injury 20+ years ago - I advised maybe that contributes but overall worsening of it with recurrent, non healing wounds and immobility/deconditioning are related to DM. We talked about longer term effects on other organ systems including heart, lung, kidneys when living with progressive chronic illness. She has a clear awareness her home is really not ideal to healing and recovery. She tells me her current home is a trailer which is not equipped for handicapped people. She states she needs a home with 3 bedrooms bc her mom and her dtr live with her and she will not live without them. Ambulatory CM is trying to help but somewhat hampered by pt refusal to move anywhere that does not have 3 bedrooms so that her family unit can stay together She is willing to stay in a SNF until the wound heals which is what PCP and I have discussed with her in past. She expressed worries about how SNF stay will "take ankita my disability money" and I encouraged her to follow up with OP care mgt and her disability pan helper for more information re this issue (likely bes to do this from ambulatory CM side since this is an acute IP admission and not a LTC stay.) She felt that if we can fix her hip then she can avoid weight bearing on left foot and the right leg can support her weight. plus 2 qualifying reasons for rehab may help get her a longer stay approved (I hope). We will see if ortho can see her this admission to help facilitate this possible plan. (4) Hip pain, right: (5) Palliative care by specialist: Introduced Palliative Medicine and explained our role in patient's care. Patient and/or family were receptive to palliative services for goals of care discussions. Reviewed we are different from hospice, a home health nurse visiting service. History of Present Illness Reason for Consultation: symptom mgt, goals of care Attending Physician: Leonel Boyd MD History of Present Illness Trevor was sent to ED from PCP with worsening cellulitis of left leg and new onset redness and warmth of right leg and complex history with recurrent DM foot ulcers = has had multiple admissions for these same ongoing issues. Refuses home health when nurses arrive at home or call to schedule visits, daughter rports "Mom doesn't want you." Pt resides in a trailer and it is not handicapped accessible. She cannot remain NWB - +Noncompliance with nonweightbearing status leading to recurrent admissions. She shares this trailer with her mother and her daughter. She has been unable to find other handicapped housing bc she wants a aplce with 3 bedrooms so that her Mom and dtr can come with her. She ahs been advised of need for long-term placement for her foot wounds and has been referred to Palliative Medicine for ongoing management of her multiple chronic conditions Most recent blood culture on 12/06/2024 grew Staphylococcus lugdunensis (pansensitive). Most recent wound culture on 11/07/2024 grew MRSA + Proteus mirabilis. Left foot/ankle MRI did not reveal evidence of acute osteomyelitis PMH includes DMT2, CKD, CHF, B-cell lymphoma, HTN, asthma, neuropathy, venous stasis and gout Allergies Allergy/AdvReac Type Severity Reaction Status Date / Time Corticosteroids Allergy Severe Anaphylaxis Verified 02/08/25 10:02 (Glucocorticoids) clindamycin Allergy Intermediate Rash Verified 02/08/25 10:02 dog dander Allergy Intermediate Rash Verified 02/08/25 10:02 iron [From Venofer] Allergy Intermediate Rash Verified 02/08/25 10:02 morphine Allergy Intermediate mouth and Verified 02/08/25 10:02 face swells Penicillins Allergy Intermediate rash/hives Verified 02/08/25 10:02 adhesive Allergy Mild Skin rash Verified 02/08/25 10:02 localized zolpidem Allergy Unknown Unknown Verified 02/08/25 10:02 pregabalin AdvReac Intermediate "makes Verified 02/08/25 10:02 goofy" Home Medications Medication Instructions Recorded Confirmed Type calcium carbonate (Tums) 900 mg PO QAM 03/03/22 02/08/25 History cyanocobalamin (vitamin B-12) 1,000 mcg PO QAM 03/03/22 02/08/25 History 1,000 mcg tablet (Vitamin B-12) albuterol sulfate 2.5 mg/3 mL 2.5 mg (3 mL) inhalation Q6H PRN 06/25/23 02/08/25 Rx (0.083 %) solution for nebulization Shortness Of Breath #90 mL aspirin 81 mg tablet,delayed 81 mg PO QAM 06/25/23 02/08/25 History release diclofenac sodium 1 % topical gel 4 g EXT QID #1 tube 08/30/23 02/08/25 Rx (Voltaren Arthritis Pain) nystatin 100,000 unit/gram topical 1 applic topical TID PRN yeast 08/30/23 02/08/25 Rx powder rash under breasts, abdominal skin folds #30 grams CPAP Supplies #1 ea 09/28/23 02/08/25 Rx CPAP Machine #1 ea 09/29/23 02/08/25 Rx cetirizine 10 mg tablet (Zyrtec) 10 mg PO BID 10/20/23 02/08/25 History empagliflozin 10 mg tablet 10 mg PO QAM #90 tabs 12/02/23 02/08/25 Rx (Jardiance) montelukast 10 mg tablet 10 mg PO QPM #90 tabs 01/03/24 02/08/25 Rx (Singulair) albuterol sulfate 90 mcg/actuation 2 puff inhalation Q4H PRN 01/04/24 02/08/25 Rx aerosol inhaler (Ventolin HFA) Shortness Of Breath Or Wheezing #18 grams epinephrine 0.3 mg/0.3 mL 0.3 mg IM UD PRN anaphylaxis 01/06/24 02/08/25 History injection, auto-injector acetaminophen 500 mg tablet 1,000 mg (2 x 500 mg) PO TID PRN 02/04/24 02/08/25 Rx fever or pain #90 tabs gabapentin 400 mg capsule 400 mg PO QID #360 caps 06/30/24 02/08/25 Rx losartan 25 mg tablet 25 mg PO QAM 07/23/24 02/08/25 History nystatin 100,000 unit/gram topical 1 applic EXT TID PRN FLARE 07/23/24 02/08/25 History ointment buspirone 15 mg tablet 15 mg PO QID 08/01/24 02/08/25 History cholecalciferol (vitamin D3) 50 2,000 unit PO TID 09/01/24 02/08/25 History mcg (2,000 unit) capsule (Vitamin D3) hydroxyzine HCl 25 mg tablet 25 mg PO HS 09/01/24 02/08/25 History allopurinol 100 mg tablet 100 mg PO BID #180 tabs 09/13/24 02/08/25 Rx sennosides 8.6 mg tablet (Senokot) 17.2 mg PO BID 10/06/24 02/08/25 History famotidine 40 mg tablet 40 mg PO QPM 10/23/24 02/08/25 History gentamicin 0.1 % topical ointment 1 applic topical DAILY 2 weeks #30 11/09/24 02/08/25 Rx grams spironolactone 25 mg tablet 25 mg PO BID #180 tabs 12/01/24 02/08/25 Rx polyethylene glycol 3350 17 17 g PO DAILY PRN Constipation 12/06/24 02/08/25 History gram/dose oral powder (Miralax) pantoprazole 40 mg tablet,delayed 40 mg PO BID #90 tabs 12/07/24 02/08/25 Rx release (Protonix) potassium chloride 20 mEq 20 meq PO QAM #90 tabs 12/18/24 02/08/25 Rx tablet,extended release(part/cryst) (Klor-Con M) torsemide 20 mg tablet 60 mg (3 x 20 mg) PO Q2D #30 tabs 12/18/24 02/08/25 Rx duloxetine 60 mg capsule,delayed 60 mg PO BID 01/08/25 02/08/25 History release metoprolol succinate 25 mg 25 mg PO QAM 01/08/25 02/08/25 History tablet,extended release 24 hr multivitamin (Daily-Holli tablet) 1 tab PO QAM 01/08/25 02/08/25 History tramadol 50 mg tablet 50 mg PO BID PRN pain #30 tabs 01/08/25 02/08/25 Rx bupropion HCl 150 mg 24 hr tablet, 300 mg PO QAM 02/08/25 02/08/25 History extended release Patient History Medical History Cellulitis of foot, left Cellulitis of left foot Diabetes Acute kidney injury superimposed on stage 3b chronic kidney disease Acute UTI (urinary tract infection) Sepsis Diabetic foot ulcer Abdominal wall cellulitis Hypokalemia Mast cell disease B-cell lymphoma Hx-TIA (transient ischemic attack) Hx of sepsis Hypertension Lumbar spinal stenosis Arthritis Allergic rhinitis Gout Other ovarian cyst, left side Acid reflux Severe obstructive sleep apnea Stage 3 chronic kidney disease Fatty liver CHF (congestive heart failure) Solitary kidney, congenital Diabetes mellitus, type 2 Ulcer of foot History of COVID-19 Iron deficiency anemia Venous stasis of both lower extremities MDD (major depressive disorder), recurrent episode, moderate Ambulatory dysfunction Depression with anxiety Degenerative joint disease, shoulder, right Lymphedema Asthma Hyperlipidemia Surgical History Hx of biopsy (12/29/23) History of insertion of central venous access port History of revision of total replacement of left knee joint History of cardiac cath History of colonoscopy History of esophagogastroduodenoscopy (EGD) History of bilateral knee replacement (10/16/22) H/O knee surgery (12/2021) S/P tonsillectomy and adenoidectomy Status post total shoulder arthroplasty (10/17/18) History of carpal tunnel release H/O ventral hernia repair History of appendectomy History of cholecystectomy Family History Mother Diabetes Coronary heart disease Myocardial infarction S/P CABG x 3 Hypertension Gallbladder disease Sister Hodgkins lymphoma Brother Kidney disease Grandmother Breast cancer Aunt Ovarian cancer Father Peripheral vascular disease Daughter Diabetes Other Cancer No family history of adverse response to anesthesia Denies family history of Prostate cancer Colorectal cancer Social History Smoking Status: Never smoker Tobacco Type: Cigarettes Age Started Using Tobacco: 22; Age Quit Using Tobacco: 24; packs per day: 1; Second Hand Exposure: No; Do You Dip or Chew Tobacco: No; Hx Alcohol Use: No Hx Substance Use: No Preferred Language: Armenian 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 Ability: Effective Visual Impairment: Limited Hearing Ability: Normal Ergonomics Engineer Required: No Beliefs That Will Affect Care: None marital status: marital status details: ; lives with parents & 1 daughter Current Living Situation: Family Current Living Situation Comment: lives with mom and dtr current occupational status: disabled other: worked in [employer] in [employer]; worked for [employer] Feels Safe at Home: Yes Childhood Exposure to Second-Hand Smoke: No Diet: regular Diet Comment: regular caffeine: No Dental Care, Regularly: No Physical Activity Frequency: Does not Exercise Seatbelt Use: always Sunscreen Use: Yes Assistive Devices: CPAP and Walker Review of Systems Review of Systems: All systems reviewed & are unremarkable except as noted in Subjective Physical Exam Physical Exam: chronically, ill, appearing female, resting in bed, semi reclined. Normal cephalic and a traumatic head. Pupils equal round and reactive to light. Neck is supple, no strider, no thyromegaly. Respiratory effort within acceptable limits. Lungs diminished but clear. Heart tones S1/S2. Abdomen soft, + pannus, nontender to palpation. Bales draining sl cloudy yellow urine. Bilateral lower extremities +venous insufficiency changes, erythema, and slightly woody texture to the lower aspects. Wound to the left foot with intact dressing. Strength this diminished overall. She is awake alert and oriented x3. She is able to follow commands and answer questions appropriately. She was cooperative with this exam. Insight is fair, but at times with some wandering thoughts, perseveration, and wishful thinking. Results & Data Vital Signs (Past 12 Hours) Vital Signs Temp Pulse Resp BP Pulse Ox O2 Del Method 02/09/25 07:50 36.5 C 60 18 115/77 95 Room Air 02/08/25 23:02 36.7 C 74 18 109/66 93 Room Air Laboratory Results 02/09/25 02/09/25 02/08/25 Range/Units 07:44 05:39 20:40 WBC 7.90 (4.8-10.8) K/ul RBC 4.20 (4.20-5.40) M/uL Hgb 11.2 L (12.0-16.0) g/dl Hct 33.7 L (37.0-47.0) % MCV 80.2 (80.0-100.0) fL MCH 26.7 (25.0-34.0) pg MCHC 33.2 (32.0-36.0) g/dL RDW Std Deviation 42.6 (36.4-46.3) fL RDW Coeff of Cleo 14.6 H (11.5-14.5) % Plt Count 277 (130-400) K/uL MPV 9.9 (9.4-12.4) fL Immature Gran % (Auto) % Neut % (Auto) % Lymph % (Auto) % [place] % (Auto) % Eos % (Auto) % Baso % (Auto) % Neut # (Auto) (1.40-6.50) K/uL Lymph # (Auto) (1.20-3.40) K/uL [place] # (Auto) (0.11-0.59) K/uL Eos # (Auto) (0.00-0.50) K/uL Baso # (Auto) (0.00-0.20) K/uL Immature Gran # (Auto) (0.01-0.20) K/uL Sodium 139 (136-145) mmol/L Potassium 3.3 L (3.5-5.1) mmol/L Chloride 101 (98-107) mmol/L Carbon Dioxide 31 (21-32) mmol/L Anion Gap 7 (3-11) BUN 20 (6-23) mg/dl Creatinine 1.55 H (0.6-1.2) mg/dl Est Cr Clr Drug Dosing 60.5 eGFR 37.65 BUN/Creatinine Ratio 12.9 (10-20) Glucose 94 (70-99(Fasting)) mg/dl POC Glucose 77 97 (70-99) mg/dl Calcium 8.4 L (8.6-10.3) mg/dl Total Bilirubin (0.2-1.0) mg/dl AST (13-39) U/L ALT (7-52) U/L Alkaline Phosphatase (34-104) U/L Troponin I High Sens (0-14) pg/ml B-Natriuretic Peptide (0-100) pg/ml Total Protein (6.0-8.3) gm/dl Albumin (3.4-5.0) gm/dl Globulin (2.5-4.0) gm/dl Albumin/Globulin Ratio (0.9-2) Lipase (11-82) U/L 02/08/25 02/08/25 02/08/25 Range/Units 16:36 11:51 11:35 WBC 10.93 H (4.8-10.8) K/ul RBC 4.69 (4.20-5.40) M/uL Hgb 12.6 (12.0-16.0) g/dl Hct 38.7 (37.0-47.0) % MCV 82.5 (80.0-100.0) fL MCH 26.9 (25.0-34.0) pg MCHC 32.6 (32.0-36.0) g/dL RDW Std Deviation 44.5 (36.4-46.3) fL RDW Coeff of Cleo 14.8 H (11.5-14.5) % Plt Count 289 (130-400) K/uL MPV 9.6 (9.4-12.4) fL Immature Gran % (Auto) 0.4 % Neut % (Auto) 75.9 % Lymph % (Auto) 12.9 % [place] % (Auto) 5.6 % Eos % (Auto) 4.8 % Baso % (Auto) 0.4 % Neut # (Auto) 8.30 H (1.40-6.50) K/uL Lymph # (Auto) 1.41 (1.20-3.40) K/uL [place] # (Auto) 0.61 H (0.11-0.59) K/uL Eos # (Auto) 0.53 H (0.00-0.50) K/uL Baso # (Auto) 0.04 (0.00-0.20) K/uL Immature Gran # (Auto) 0.04 (0.01-0.20) K/uL Sodium 139 (136-145) mmol/L Potassium 3.8 (3.5-5.1) mmol/L Chloride 100 (98-107) mmol/L Carbon Dioxide 32 (21-32) mmol/L Anion Gap 7 (3-11) BUN 20 (6-23) mg/dl Creatinine 1.55 H (0.6-1.2) mg/dl Est Cr Clr Drug Dosing Not Reportable eGFR 37.65 BUN/Creatinine Ratio 12.9 (10-20) Glucose 90 (70-99(Fasting)) mg/dl POC Glucose 76 (70-99) mg/dl Calcium 9.3 (8.6-10.3) mg/dl Total Bilirubin 0.7 (0.2-1.0) mg/dl AST 17 (13-39) U/L ALT 13 (7-52) U/L Alkaline Phosphatase 85 (34-104) U/L Troponin I High Sens 3.2 (0-14) pg/ml B-Natriuretic Peptide 18 (0-100) pg/ml Total Protein 7.9 (6.0-8.3) gm/dl Albumin 3.9 (3.4-5.0) gm/dl Globulin 4.0 (2.5-4.0) gm/dl Albumin/Globulin Ratio 1.0 (0.9-2) Lipase 18 (11-82) U/L Diagnostic Findings Chest X-Ray 02/08/25 11:23 XR chest 1V portable CLINICAL HISTORY: Chest pain, nonspecific COMPARISON STUDY: 12/06/2024 FINDINGS: Stable mild cardiomegaly without pulmonary vascular congestion. No consolidation or pleural effusion. No pneumothorax. IMPRESSION: No acute findings. ACT 112: Negative or not required by law. Electronically signed by: Yohan Wright M.D. 02/08/2025 11:56 AM Foot X-Ray 02/08/25 11:24 XR foot LT min 3V routine CLINICAL HISTORY: 2 wounds base left foot COMPARISON: 01/08/2025 FINDINGS: Stable amputation of the third toe. There is soft tissue swelling at the great toe and about the first MTP joint. No acute fracture or dislocation is seen. No evidence of osteomyelitis. IMPRESSION: No osteomyelitis seen. ACT 112: Negative or not required by law. Electronically signed by: Yohan Wright M.D. 02/08/2025 12:01 PM Venous Doppler Study 02/08/25 11:24 BILATERAL LOWER EXTREMITY VENOUS DOPPLER HISTORY: Acute pain and swelling of the lower legs swelling b/l COMPARISON STUDY: None. FINDINGS: Limited exam secondary to patient body habitus and subcutaneous edema. There is normal compressibility, flow, and augmentation within the bilateral lower extremity deep venous systems. IMPRESSION: No DVT within the right or left lower extremity. ACT 112: Negative or not required by law. Electronically signed by: Reinaldo Todd M.D. 02/08/2025 12:45 PM PG Care Time/CCT Total # of Minutes Spent Total Time Spent with Patient: Total time spent is greater than 50% in coordination of care (as documented) at patient's floor/unit and/or counseling patient: I spent 140 minutes overall addressing this case: 25 min in medical data review/discussion with referring provider(s) and/or preparation for the visit incl d/w PCP 20 min in direct interaction with the patient/exam 60 min in Advance Care Planning/Goals of Care discussions as detailed above in note (must be >16min) 15 min in subsequent review and synthesis of assessment and plan 20 min communicating with other providers regarding the patient's case: pcp, primary team, nursing Advanced Care Planning 42646 Advanced Care Planning 30 Min 31686 Advanced Care Planning Additional 30 [place] [address] IN/OBS CONSULT LVL 5,80M (25 - SIGNIFICANT, SEPARATELY IDENTIFIABLE ) Patient Type New Medical Decision Making High Complexity Diagnoses Foot pain, left M79.672 Weakness generalized R53.1 Advanced care planning/counseling discussion Z71.89 Hip pain, right M25.551 Palliative care by specialist Z51.5 Additional Codes Advanced Care Planning - 55875 Advanced Care Planning 30 Min: 00083 Advanced Care Planning 30 Min ([id number]) Advanced Care Planning - 49150 Advanced Care Planning Additional 30 Min: 93639 Advanced Care Planning Additional 30 Min ([id number]) Comment [id number], [id number]
--- NOTE | 2025-02-09 11:36 | Hospitalist Progress Note ---
"Date of Service February 09, 2025 Assessment & Plan (1) Cellulitis: (2) Lymphedema: (3) Acute kidney injury superimposed on stage 3b chronic kidney disease: (4) Acute on chronic heart failure with preserved ejection fraction: (5) Hx-TIA (transient ischemic attack): (6) Diabetes mellitus type 2 with neurological manifestations: Plan This is a 64-year-old female with a history of recurrent lower extremity cellulitis, diabetic foot ulcer infection, who presents to the hospital today with worsening bilateral lower extremity edema redness #Nonpurulent cellulitis bilateral lower extremity Failed outpatient management No evidence of purulence or weeping. During her previous hospital stay, she completed a course of antibiotics. The most recent wound culture grew MSSA Will start her on IV ceftriaxone Also IV Bumex 2 mg twice daily to help with edema on 01/13, Left foot/ankle MRI did not reveal evidence of acute osteomyelitis Most recent Foot x-ray did not show any evidence of osteomyelitis #T2DM With neuropathy, on gabapentin A1c 5.5% on 01/09/2025 Hold Jardiance Loose SSI with target BSG range 110-150mg/dL, CF 40, carb ratio deferred T2DM diet BSG ACHS Adjust regimen as needed #HFpEF Daily weights Strict I&O monitoring Hold torsemide 60mg p.o. BID Start IV Bumex 2 mg twice daily Continue spironolactone 25 mg p.o. daily she is making good urine # Chronic back pain Currently taking oxycodone 5 mg tablets; prescribed in December 2024; Oxycodone for left foot pain (as above) Diclofenac gel application QID #ANDRZEJ CPAP HS #HTN Continue losartan, metoprolol #CKD, stage IIIa/b Serum creatinine close to baseline Caution use of nephrotoxic agents #Gout Continue allopurinol #Asthma | Allergies Continue cetirizine, hydroxyzine, montelukast, inhaler, and nebs #Anxiety | Depression Continue buspirone, bupropion, duloxetine #GERD Continue famotidine, pantoprazole, and sucralfate PRN #H/o CVA April 2017; continue aspirin Full code Admission and Anticipated Discharge Date Admission Date: February 08, 2025 Subjective patient seen and examined, says she feels better Review of Systems Review of Systems: All systems reviewed are negative, apart from the ones contained in the history. Physical Exam Physical Exam: The patient is awake, alert and oriented 3, well developed and well nourished, normocephalic and atraumatic, lying in bed and in no acute distress. HEENT--PERRL, EOMI, mucous membranes and oropharynx mildly dry Neck--supple. No JVD. No bruits. Thyroid normal, trachea midline, no adenopathy. Heart--normal S1 and S2. No murmurs, rubs or gallops. Lungs--clear bilaterally, no respiratory distress, no accessory muscle use. Abdomen--normal bowel sounds and soft. Extremities--Bilateral lower extremity edema, redness Dermatologic--normal skin turgor, normal color, no abnormal lymph nodes, no rash. Neurologic--cranial nerves II through XII grossly intact. Rheumatologic--normal range of motion. Psychiatric--normal affect. Results & Data Results & Data Vital Signs (Past 12 Hours) Vital Signs Temp Pulse Resp BP Pulse Ox O2 Del Method 02/09/25 07:50 97.7 F 60 18 115/77 95 Room Air PG Care Time/CCT Total # of Minutes Spent Total Time Spent with Patient: Total time spent is greater than 50% in coordination of care (as documented) at patient's floor/unit and/or counseling patient: Coding Level of Care Code 76222 SUB INP/OBS CARE 2/35MIN Diagnoses Cellulitis L03.90 Site of cellulitis: unspecified site Lymphedema I89.0 Acute kidney injury superimposed on stage 3b chronic kidney disease N17.9; N18.32 Acute on chronic heart failure with preserved ejection fraction I50.33 Hx-TIA (transient ischemic attack) Z86.73 Diabetes mellitus type 2 with neurological manifestations E11.49 Time Spent (min) 35 (1) Cellulitis Site of cellulitis: unspecified site Qualified Code(s): L03.90 - Cellulitis, unspecified"
[2025-02-09] MEDS: cefTRIAXone SODIUM 2,000 MG/50 ML BAG IV SCH (12:28)
[2025-02-09] MEDS: BUMETANIDE 2 MG in SYRINGE 0 ML IV SCH (16:19)
[2025-02-09] MEDS: POLYETHYLENE (MIRALAX) 17 GM PACK PO PRN (21:03)
[2025-02-10 06:49] LABS: Hematocrit (blood only) 35.3 % (37.0-47.0); Hemoglobin 11.7 g/dl (12.0-16.0); Mean Corpuscular Hemoglobin 26.8 pg (25.0-34.0); Mean Corpuscular Volume 80.8 fL (80.0-100.0); Platelet Count 266 K/uL (130-400); RDW Standard Deviation 42.7 fL (36.4-46.3); Red Blood Count 4.37 M/uL (4.20-5.40); White Blood Count 6.77 K/ul (4.8-10.8)
--- NOTE | 2025-02-10 06:53 | Electrocardiogram Report ---
Test Reason : Blood Pressure : */* mmHG Vent. Rate : 82 BPM Atrial Rate : 82 BPM P-R Int : 152 ms QRS Dur : 94 ms QT Int : 370 ms P-R-T Axes : 29 -25 40 degrees QTcB Int : 432 ms Normal sinus rhythm Inferior infarct (cited on or before 23-Jul-2017) Anterior infarct (cited on or before 01-Oct-2017) Nonspecific T wave abnormality Abnormal ECG When compared with ECG of 16-Dec-2024 21:00, No significant change Confirmed by Jai Watkins ([id number]) on 02/10/2025 6:53:08 AM Referred By: Awilda Eric Confirmed By: Jai Watkins
[2025-02-10 07:05] LABS: Anion Gap 6.0 (3-11); Blood Urea Nitrogen 16.0 mg/dl (6-23); Calcium 8.6 mg/dl (8.6-10.3); Carbon Dioxide 33.0 mmol/L (21-32); Chloride 102.0 mmol/L (98-107); Creatinine Clr Calc Pharmacy 73.3 ml/min; Glucose 91.0 mg/dl (70-99(Fasting)); Potassium 3.6 mmol/L (3.5-5.1); Sodium 141.0 mmol/L (136-145)
--- NOTE | 2025-02-10 10:28 | Hospitalist Progress Note ---
"Date of Service February 10, 2025 Assessment & Plan (1) Cellulitis: (2) Lymphedema: (3) Acute kidney injury superimposed on stage 3b chronic kidney disease: (4) Acute on chronic heart failure with preserved ejection fraction: (5) Hx-TIA (transient ischemic attack): (6) Diabetes mellitus type 2 with neurological manifestations: Plan This is a 64-year-old female with a history of recurrent lower extremity cellulitis, diabetic foot ulcer infection, who presents to the hospital today with worsening bilateral lower extremity edema redness #Nonpurulent cellulitis bilateral lower extremity Failed outpatient management No evidence of purulence or weeping. During her previous hospital stay, she completed a course of antibiotics. The most recent wound culture grew MSSA Will continue her on IV ceftriaxone Also IV Bumex 2 mg twice daily to help with edema on 01/13, Left foot/ankle MRI did not reveal evidence of acute osteomyelitis Most recent Foot x-ray did not show any evidence of osteomyelitis Edema is much improved, so is the area of redness Right Hip pain: Patient said her right hip has been giving her problems Will obtain CT hip #T2DM With neuropathy, on gabapentin A1c 5.5% on 01/09/2025 Hold Jardiance Loose SSI with target BSG range 110-150mg/dL, CF 40, carb ratio deferred T2DM diet BSG ACHS Adjust regimen as needed #HFpEF Daily weights Strict I&O monitoring Hold torsemide 60mg p.o. BID Start IV Bumex 2 mg twice daily Continue spironolactone 25 mg p.o. daily she is making good urine # Chronic back pain Currently taking oxycodone 5 mg tablets; prescribed in December 2024; Oxycodone for left foot pain (as above) Diclofenac gel application QID #ANDRZEJ CPAP HS #HTN Continue losartan, metoprolol #CKD, stage IIIa/b Serum creatinine close to baseline Caution use of nephrotoxic agents #Gout Continue allopurinol #Asthma | Allergies Continue cetirizine, hydroxyzine, montelukast, inhaler, and nebs #Anxiety | Depression Continue buspirone, bupropion, duloxetine #GERD Continue famotidine, pantoprazole, and sucralfate PRN #H/o CVA April 2017; continue aspirin Full code Admission and Anticipated Discharge Date Admission Date: February 08, 2025 Subjective patient seen and examined, says she feels better Review of Systems Review of Systems: All systems reviewed are negative, apart from the ones contained in the history. Physical Exam Physical Exam: The patient is awake, alert and oriented 3, well developed and well nourished, normocephalic and atraumatic, lying in bed and in no acute distress. HEENT--PERRL, EOMI, mucous membranes and oropharynx mildly dry Neck--supple. No JVD. No bruits. Thyroid normal, trachea midline, no adenopathy. Heart--normal S1 and S2. No murmurs, rubs or gallops. Lungs--clear bilaterally, no respiratory distress, no accessory muscle use. Abdomen--normal bowel sounds and soft. Extremities--Bilateral lower extremity edema, redness Dermatologic--normal skin turgor, normal color, no abnormal lymph nodes, no rash. Neurologic--cranial nerves II through XII grossly intact. Rheumatologic--normal range of motion. Psychiatric--normal affect. Results & Data Results & Data Vital Signs (Past 12 Hours) Vital Signs Temp Pulse Resp BP Pulse Ox O2 Del Method 02/10/25 07:37 97.7 F 67 18 111/71 95 Room Air 02/09/25 23:56 98.1 F 66 18 109/67 93 Room Air PG Care Time/CCT Total # of Minutes Spent Total Time Spent with Patient: Total time spent is greater than 50% in coordination of care (as documented) at patient's floor/unit and/or counseling patient: Coding Level of Care Code 23120 SUB INP/OBS CARE 2/35MIN Diagnoses Cellulitis L03.90 Site of cellulitis: unspecified site Lymphedema I89.0 Acute kidney injury superimposed on stage 3b chronic kidney disease N17.9; N18.32 Acute on chronic heart failure with preserved ejection fraction I50.33 Hx-TIA (transient ischemic attack) Z86.73 Diabetes mellitus type 2 with neurological manifestations E11.49 Time Spent (min) 35 (1) Cellulitis Site of cellulitis: unspecified site Qualified Code(s): L03.90 - Cellulitis, unspecified"
[2025-02-11 06:17] LABS: Hematocrit (blood only) 36.3 % (37.0-47.0); Hemoglobin 11.6 g/dl (12.0-16.0); Mean Corpuscular Hemoglobin 26.0 pg (25.0-34.0); Mean Corpuscular Volume 81.4 fL (80.0-100.0); Platelet Count 262 K/uL (130-400); RDW Standard Deviation 43.0 fL (36.4-46.3); Red Blood Count 4.46 M/uL (4.20-5.40); White Blood Count 6.70 K/ul (4.8-10.8)
[2025-02-11 06:38] LABS: Anion Gap 7.0 (3-11); Blood Urea Nitrogen 16.0 mg/dl (6-23); Calcium 8.7 mg/dl (8.6-10.3); Carbon Dioxide 34.0 mmol/L (21-32); Chloride 99.0 mmol/L (98-107); Creatinine Clr Calc Pharmacy 74.1 ml/min; Glucose 91.0 mg/dl (70-99(Fasting)); Potassium 3.6 mmol/L (3.5-5.1); Sodium 140.0 mmol/L (136-145)
--- NOTE | 2025-02-11 10:40 | Hospitalist Progress Note ---
"Date of Service February 11, 2025 Assessment & Plan (1) Cellulitis: (2) Lymphedema: (3) Acute kidney injury superimposed on stage 3b chronic kidney disease: (4) Acute on chronic heart failure with preserved ejection fraction: (5) Hx-TIA (transient ischemic attack): (6) Diabetes mellitus type 2 with neurological manifestations: Plan This is a 64-year-old female with a history of recurrent lower extremity cellulitis, diabetic foot ulcer infection, who presents to the hospital today with worsening bilateral lower extremity edema redness #Nonpurulent cellulitis bilateral lower extremity Failed outpatient management No evidence of purulence or weeping. During her previous hospital stay, she completed a course of antibiotics. The most recent wound culture grew MSSA Will continue her on IV ceftriaxone Also IV Bumex 1 mg twice daily to help with edema on 01/13, Left foot/ankle MRI did not reveal evidence of acute osteomyelitis Most recent Foot x-ray did not show any evidence of osteomyelitis Edema is much improved, so is the area of redness Will transition her to PO antibiotics prior to discharge Right Hip pain: Patient said her right hip has been giving her problems Will obtain CT hip #T2DM With neuropathy, on gabapentin A1c 5.5% on 01/09/2025 Hold Jardiance Loose SSI with target BSG range 110-150mg/dL, CF 40, carb ratio deferred T2DM diet BSG ACHS Adjust regimen as needed #HFpEF Daily weights Strict I&O monitoring Hold torsemide 60mg p.o. BID Start IV Bumex 2 mg twice daily Continue spironolactone 25 mg p.o. daily she is making good urine # Chronic back pain Currently taking oxycodone 5 mg tablets; prescribed in December 2024; Oxycodone for left foot pain (as above) Diclofenac gel application QID #ANDRZEJ CPAP HS #HTN Continue losartan, metoprolol #CKD, stage IIIa/b Serum creatinine close to baseline Caution use of nephrotoxic agents #Gout Continue allopurinol #Asthma | Allergies Continue cetirizine, hydroxyzine, montelukast, inhaler, and nebs #Anxiety | Depression Continue buspirone, bupropion, duloxetine #GERD Continue famotidine, pantoprazole, and sucralfate PRN #H/o CVA April 2017; continue aspirin Disposition; Awaiting PT eval Full code Admission and Anticipated Discharge Date Admission Date: February 08, 2025 Subjective patient seen and examined, says she feels better, complains of back pain Review of Systems Review of Systems: All systems reviewed are negative, apart from the ones contained in the history. Physical Exam Physical Exam: The patient is awake, alert and oriented 3, well developed and well nourished, normocephalic and atraumatic, lying in bed and in no acute distress. HEENT--PERRL, EOMI, mucous membranes and oropharynx mildly dry Neck--supple. No JVD. No bruits. Thyroid normal, trachea midline, no adenopathy. Heart--normal S1 and S2. No murmurs, rubs or gallops. Lungs--clear bilaterally, no respiratory distress, no accessory muscle use. Abdomen--normal bowel sounds and soft. Extremities--Bilateral lower extremity edema, redness Dermatologic--normal skin turgor, normal color, no abnormal lymph nodes, no rash. Neurologic--cranial nerves II through XII grossly intact. Rheumatologic--normal range of motion. Psychiatric--normal affect. Results & Data Results & Data Vital Signs (Past 12 Hours) Vital Signs Temp Pulse Resp BP BP Pulse Ox O2 Del Method 02/11/25 07:18 97.5 F L 73 18 122/78 94 Room Air 02/11/25 00:06 97.9 F 73 18 102/66 92 Room Air PG Care Time/CCT Total # of Minutes Spent Total Time Spent with Patient: Total time spent is greater than 50% in coordination of care (as documented) at patient's floor/unit and/or counseling patient: Coding Level of Care Code 52655 SUB INP/OBS CARE 2/35MIN Diagnoses Cellulitis L03.90 Site of cellulitis: unspecified site Lymphedema I89.0 Acute kidney injury superimposed on stage 3b chronic kidney disease N17.9; N18.32 Acute on chronic heart failure with preserved ejection fraction I50.33 Hx-TIA (transient ischemic attack) Z86.73 Diabetes mellitus type 2 with neurological manifestations E11.49 Time Spent (min) 35 (1) Cellulitis Site of cellulitis: unspecified site Qualified Code(s): L03.90 - Cellulitis, unspecified"
[2025-02-11] MEDS: LIDOCAINE 5% 1 PATCH TD STA (13:06)
[2025-02-11] MEDS: BUMETANIDE 1 MG in SYRINGE 0 ML IV SCH (16:59)
[2025-02-11] MEDS: REMOVE LIDODERM PATCH SCH (20:14)
[2025-02-12 06:04] LABS: Hematocrit (blood only) 35.4 % (37.0-47.0); Hemoglobin 11.7 g/dl (12.0-16.0); Mean Corpuscular Hemoglobin 26.5 pg (25.0-34.0); Mean Corpuscular Volume 80.3 fL (80.0-100.0); Platelet Count 275 K/uL (130-400); RDW Standard Deviation 42.5 fL (36.4-46.3); Red Blood Count 4.41 M/uL (4.20-5.40); White Blood Count 8.66 K/ul (4.8-10.8)
[2025-02-12 06:24] LABS: Anion Gap 5.0 (3-11); Blood Urea Nitrogen 17.0 mg/dl (6-23); Calcium 8.9 mg/dl (8.6-10.3); Carbon Dioxide 38.0 mmol/L (21-32); Chloride 95.0 mmol/L (98-107); Creatinine Clr Calc Pharmacy 61.0 ml/min; Glucose 96.0 mg/dl (70-99(Fasting)); Potassium 3.9 mmol/L (3.5-5.1); Sodium 138.0 mmol/L (136-145)
--- NOTE | 2025-02-12 13:32 | Hospitalist Progress Note ---
"Date of Service February 12, 2025 Assessment & Plan (1) Cellulitis: (2) Lymphedema: (3) Acute kidney injury superimposed on stage 3b chronic kidney disease: (4) Acute on chronic heart failure with preserved ejection fraction: (5) Hx-TIA (transient ischemic attack): (6) Diabetes mellitus type 2 with neurological manifestations: Plan 64-year-old woman with type 2 diabetes and neuropathy complicated by plantar ulcers, HFpEF and RV dysfunction, recurrent cellultits, who presents with worsening LE cellulitis. #Nonpurulent cellulitis bilateral lower extremity - Failed outpatient management (doxycyline). Foot xray without evidence of ostemylitis. Doppler negative for DVT. Most recent wound culture grew MSSA - continue IV ceftriaxone Continue IV Bumex 1 mg twice daily to help with edema - okay for phillips to remain in place Per Dr. Somers - to remain NWB LLE Erythema is improving, mobility significantly limited 2/2 hip pain Right Hip pain: Will obtain CT hip Consult ortho - to see if anyting can be done in preperation for a surgery #T2DM With neuropathy, on gabapentin A1c 5.5% on 01/09/2025. Hold Jardiance Loose SSI with target BSG range 110-150mg/dL, CF 40, carb ratio deferred BSG acceptable #HFpEF Daily weights, Strict I&O monitoring Hold torsemide 60mg p.o. BID Continue IV Bumex 2 mg twice daily Continue spironolactone 25 mg p.o. daily Monitor BMP with diuresis, so far kidney function stable # Chronic back pain Currently taking oxycodone 5 mg tablets; prescribed in December 2024; Oxycodone for left foot pain/right hip pain Diclofenac gel application QID #ANDRZEJ CPAP HS #HTN Continue losartan, metoprolol #CKD, stage IIIa/b Serum creatinine close to baseline Caution use of nephrotoxic agents #Gout Continue allopurinol #Asthma | Allergies Continue cetirizine, hydroxyzine, montelukast, inhaler, and nebs #Anxiety | Depression Continue buspirone, bupropion, duloxetine #GERD Continue famotidine, pantoprazole, and sucralfate PRN #H/o CVA April 2017; continue aspirin Disposition; Awaiting PT eval, ortho eval DVT proh: lovenox added Admission and Anticipated Discharge Date Admission Date: February 08, 2025 Subjective patient seen sitting in the chair after working with therapy reports that her leg is looking better however her mobility is much much worse. Barely able to transfer to chair. Having difficulty maintaining nonweightbearing status because her right hip pain is so severe. Reports that someone told her they would order a CT scan but it has not been done yet. Review of Systems Review of Systems: All systems reviewed & are unremarkable except as noted in Subjective Physical Exam Physical Exam: General: NAD, VS as above, Sitting up in the chair, clearly in pain Resp: normal respiratory effort, lungs clear to auscultation CV: RRR, no murmur, Abd: normal bowel sounds, non tender, no hepatosplenomegaly Extremities: Moves all extremities, no edema Neuro: A&O x3, Skin: cellulitis this to the area is reportedly improved, now appears more consistent with venous stasis Results & Data Results & Data Vital Signs (Past 12 Hours) Vital Signs Temp Pulse Resp BP Pulse Ox O2 Del Method 02/12/25 08:24 97.3 F L 72 16 124/79 94 Room Air Laboratory Results CBC and chemistry reviewed PG Care Time/CCT Total # of Minutes Spent Total Time Spent with Patient: Total time spent is greater than 50% in coordination of care (as documented) at patient's floor/unit and/or counseling patient: Coding Level of Care Code 49335 SUB INP/OBS CARE 3/50MIN Diagnoses Cellulitis L03.90 Site of cellulitis: unspecified site Lymphedema I89.0 Acute kidney injury superimposed on stage 3b chronic kidney disease N17.9; N18 .32 Acute on chronic heart failure with preserved ejection fraction I50.33 Hx-TIA (transient ischemic attack) Z86.73 Diabetes mellitus type 2 with neurological manifestations E11.49 (1) Cellulitis Site of cellulitis: unspecified site Qualified Code(s): L03.90 - Cellulitis, unspecified"
--- NOTE | 2025-02-12 13:54 | CT Scan Report ---
CT hip RT wo con CLINICAL HISTORY: Hip pain COMPARISON STUDY: 09/03/2024 FINDINGS: There are severe degenerative changes at the right hip with severe joint space narrowing an d subchondral sclerosis and cysts. No fracture or dislocation seen. No evidence of osteomyelitis. No soft tissue hematoma seen. IMPRESSION: Severe degenerative changes at the right hip. ACT 112: Negative or not required by law. Electronically signed by: Yohan Wright M.D. 02/12/2025 1:52 PM
--- NOTE | 2025-02-12 14:56 | Orthopedic Consultation ---
Date of Service February 12, 2025 Assessment & Plan (1) Osteoarthritis of hip: 64-year-old female currently admitted for cellulitis of the left foot. Patient has severe osteoarthritis of the right hip resulting in significant limitation in mobility. Patient would greatly benefit from surgical intervention. Because she is currently admitted for infection of the left foot, it is not recommended she undergo surgery at this time. She needs to follow-up on an outpatient basis once her foot is healed completely and can bear weight as she may not be able to bear weight on her right leg following a total hip arthroplasty. I discussed this with the patient and she understands that she cannot undergo surgery at this time due to the infection on her left foot. I, Dr. Dickerson, agree with above. If hip is severely limiting function, she may want to consider toe amputation to get rid of infection and proceed with hip replacement in 43-6 weeks once wound healed. History of Present Illness Reason for Consultation: Right hip pain. Requesting Physician: Luciana Santo PA-C Attending Physician: Sundeep Painter MD 64-year-old female currently admitted for cellulitis of her left foot. Patient has increase in right hip pain. Patient has a history of osteoarthritis of the hips bilaterally. Patient was consulted on in August 2024 for the same issue. At that time it was determined she was not a good surgical candidate due to ongoing bilateral foot infections. Patient currently has a nonhealing diabetic foot ulcer on her left foot. She had been seeing Dr. Somers on an outpatient basis, but outpatient treatment failed and she was admitted on 02/08. Patient is nonweightbearing on left lower extremity. Consult was requested because patient is having difficulty transferring with nonweightbearing of the left lower extremity and pain in the right hip. Allergies Allergy/AdvReac Type Severity Reaction Status Date / Time Corticosteroids Allergy Severe Anaphylaxis Verified 02/08/25 10:02 (Glucocorticoids) clindamycin Allergy Intermediate Rash Verified 02/08/25 10:02 dog dander Allergy Intermediate Rash Verified 02/08/25 10:02 iron [From Venofer] Allergy Intermediate Rash Verified 02/08/25 10:02 morphine Allergy Intermediate mouth and Verified 02/08/25 10:02 face swells Penicillins Allergy Intermediate rash/hives Verified 02/08/25 10:02 adhesive Allergy Mild Skin rash Verified 02/08/25 10:02 localized zolpidem Allergy Unknown Unknown Verified 02/08/25 10:02 pregabalin AdvReac Intermediate "makes Verified 02/08/25 10:02 goofy" Home Medications Medication Instructions Recorded Confirmed Type calcium carbonate (Tums) 900 mg PO QAM 03/03/22 02/08/25 History cyanocobalamin (vitamin B-12) 1,000 mcg PO QAM 03/03/22 02/08/25 History 1,000 mcg tablet (Vitamin B-12) albuterol sulfate 2.5 mg/3 mL 2.5 mg (3 mL) inhalation Q6H PRN 06/25/23 02/08/25 Rx (0.083 %) solution for nebulization Shortness Of Breath #90 mL aspirin 81 mg tablet,delayed 81 mg PO QAM 06/25/23 02/08/25 History release diclofenac sodium 1 % topical gel 4 g EXT QID #1 tube 08/30/23 02/08/25 Rx (Voltaren Arthritis Pain) nystatin 100,000 unit/gram topical 1 applic topical TID PRN yeast 08/30/23 02/08/25 Rx powder rash under breasts, abdominal skin folds #30 grams CPAP Supplies #1 ea 09/28/23 02/08/25 Rx CPAP Machine #1 ea 09/29/23 02/08/25 Rx cetirizine 10 mg tablet (Zyrtec) 10 mg PO BID 10/20/23 02/08/25 History empagliflozin 10 mg tablet 10 mg PO QAM #90 tabs 12/02/23 02/08/25 Rx (Jardiance) montelukast 10 mg tablet 10 mg PO QPM #90 tabs 01/03/24 02/08/25 Rx (Singulair) albuterol sulfate 90 mcg/actuation 2 puff inhalation Q4H PRN 01/04/24 02/08/25 Rx aerosol inhaler (Ventolin HFA) Shortness Of Breath Or Wheezing #18 grams epinephrine 0.3 mg/0.3 mL 0.3 mg IM UD PRN anaphylaxis 01/06/24 02/08/25 History injection, auto-injector acetaminophen 500 mg tablet 1,000 mg (2 x 500 mg) PO TID PRN 02/04/24 02/08/25 Rx fever or pain #90 tabs gabapentin 400 mg capsule 400 mg PO QID #360 caps 06/30/24 02/08/25 Rx losartan 25 mg tablet 25 mg PO QAM 07/23/24 02/08/25 History nystatin 100,000 unit/gram topical 1 applic EXT TID PRN FLARE 07/23/24 02/08/25 History ointment buspirone 15 mg tablet 15 mg PO QID 08/01/24 02/08/25 History cholecalciferol (vitamin D3) 50 2,000 unit PO TID 09/01/24 02/08/25 History mcg (2,000 unit) capsule (Vitamin D3) hydroxyzine HCl 25 mg tablet 25 mg PO HS 09/01/24 02/08/25 History allopurinol 100 mg tablet 100 mg PO BID #180 tabs 09/13/24 02/08/25 Rx sennosides 8.6 mg tablet (Senokot) 17.2 mg PO BID 10/06/24 02/08/25 History famotidine 40 mg tablet 40 mg PO QPM 10/23/24 02/08/25 History gentamicin 0.1 % topical ointment 1 applic topical DAILY 2 weeks #30 11/09/24 02/08/25 Rx grams spironolactone 25 mg tablet 25 mg PO BID #180 tabs 12/01/24 02/08/25 Rx polyethylene glycol 3350 17 17 g PO DAILY PRN Constipation 12/06/24 02/08/25 History gram/dose oral powder (Miralax) pantoprazole 40 mg tablet,delayed 40 mg PO BID #90 tabs 12/07/24 02/08/25 Rx release (Protonix) potassium chloride 20 mEq 20 meq PO QAM #90 tabs 12/18/24 02/08/25 Rx tablet,extended release(part/cryst) (Klor-Con M) torsemide 20 mg tablet 60 mg (3 x 20 mg) PO Q2D #30 tabs 12/18/24 02/08/25 Rx duloxetine 60 mg capsule,delayed 60 mg PO BID 01/08/25 02/08/25 History release metoprolol succinate 25 mg 25 mg PO QAM 01/08/25 02/08/25 History tablet,extended release 24 hr multivitamin (Daily-Holli tablet) 1 tab PO QAM 01/08/25 02/08/25 History tramadol 50 mg tablet 50 mg PO BID PRN pain #30 tabs 01/08/25 02/08/25 Rx bupropion HCl 150 mg 24 hr tablet, 300 mg PO QAM 02/08/25 02/08/25 History extended release Past Med/Surg History Problem List (Updated 02/12/25 @ 15:41 by Reinaldo Membreno PA-C) Therapeutic opioid-induced constipation (OIC) Palliative care by specialist Advanced care planning/counseling discussion Weakness generalized Foot pain, left Lymphedema (Acute) Ambulatory dysfunction (Acute) Cellulitis (Acute) Loss of protective sensation of skin of deformed foot Gait instability Iliotibial band syndrome of right side Diabetic ulcer of left foot (Acute) Pressure ulcer of left foot, stage 1 (Acute) Acute gout Pedal edema (Acute) Weight gain (Acute) Cellulitis (Acute) Fluid overload (Acute) Aortic stenosis Mild 07/2024 Abrasion, left foot, initial encounter Diabetic ulcer of left foot associated with diabetes mellitus due to underlying condition, with fat layer exposed (Acute) Pyelonephritis (Acute) Trauma of ear canal Dietary counseling and surveillance Mass of soft tissue of ankle Ambulatory dysfunction (Acute) Diabetic foot infection (Acute) Diabetic foot infection Left radial head fracture Diabetic ulcer of left foot Diabetic ulcer of right foot Venous ulcers of both lower extremities Adnexal cyst Postprandial nausea Chronic diastolic (congestive) heart failure Iron deficiency anemia Iron deficiency anemia Perforated ear drum Acute osteomyelitis of toe of left foot (Acute) Diabetic infection of left foot (Acute) Toe gangrene Cellulitis of both lower extremities 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 Status post panniculectomy Musculoskeletal pain Cellulitis of left leg (Acute) Weakness (Acute) Weight gain (Acute) CHF (congestive heart failure) (Acute) Panniculitis (Acute) Acute kidney injury superimposed on CKD Obesity (Acute) Failure of outpatient treatment (Acute) Cellulitis (Acute) Supraclavicular lymphadenopathy Acute on chronic heart failure with preserved ejection fraction Open wound of abdomen (Acute) Morbid obesity HAYES (dyspnea on exertion) (Acute) CKD (chronic kidney disease) stage 3, GFR 30-59 ml/min (Acute) Acute exacerbation of CHF (congestive heart failure) (Acute) Cellulitis (Acute) Cellulitis of suprapubic region Acute on chronic heart failure VARINDER (acute kidney injury) Osteoarthritis of hip Constipation Lymphoma Hip pain, right Failure of outpatient treatment (Acute) CRF (chronic renal failure) (Acute) Edema of both lower extremities (Acute) Fluid overload (Acute) Edema of abdominal wall (Acute) Ulcer of both feet Volume overload Hx MRSA infection 09/2021 s/p left knee infection > resolved > continues with doxycycline daily for prevention Lymphadenopathy of left cervical region Urticaria Chronic ulcer of left foot with fat layer exposed Diabetes mellitus type 2 with neurological manifestations Candidiasis of skin Solitary kidney, congenital Bilateral hip pain Low back pain Weakness (Acute) Lower extremity edema (Acute) CHF (congestive heart failure) (Acute) Abdominal pannus Fatty liver Dependent lymphedema Stage 3b chronic kidney disease Anemia reason for procedure. iron infusions recently. 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 Other ovarian cyst, left side Vitamin D deficiency Peripheral neuropathy Lumbar spinal stenosis 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- DISCOVERED WITH INCIDENTAL IMAGING Gout CKD (chronic kidney disease) stage 3, GFR 30-59 ml/min monitoring Chronic back pain Acid reflux Medical History Cellulitis of foot, left Cellulitis of left foot Diabetes Acute kidney injury superimposed on stage 3b chronic kidney disease Acute UTI (urinary tract infection) Sepsis Diabetic foot ulcer Abdominal wall cellulitis Hypokalemia Mast cell disease B-cell lymphoma Hx-TIA (transient ischemic attack) 2017 > ASA for prevention > no residual effects Hx of sepsis 09/2021 r/t left knee infection Hypertension Lumbar spinal stenosis Arthritis Allergic rhinitis Gout Other ovarian cyst, left side present, just monitoring Acid reflux Severe obstructive sleep apnea cpap Stage 3 chronic kidney disease follows with Dr. Wood Fatty liver CHF (congestive heart failure) follows with Ashlyn Griffin Solitary kidney, congenital Diabetes mellitus, type 2 Ulcer of foot one ulcer present to bottom of bilat feet > follows with wound clinic at [facility], improving per pt History of COVID-19 09/2021 Iron deficiency anemia Venous stasis of both lower extremities MDD (major depressive disorder), recurrent episode, moderate Ambulatory dysfunction uses walker Depression with anxiety Degenerative joint disease, shoulder, right Lymphedema left leg and abdomen / chronic Asthma well controlled, rare res inh use Hyperlipidemia no meds Surgical History Hx of biopsy (12/29/23) Left Neck Lymph Node Biopsy(Left) - Yohan Maldonado, DO, FACS History of insertion of central venous access port removed in 2022 History of revision of total replacement of left knee joint History of cardiac cath remote hx over 20 yrs ago, no stents History of colonoscopy History of esophagogastroduodenoscopy (EGD) History of bilateral knee replacement (10/16/22) H/O knee surgery (12/2021) L knee washout w/ polyexchange S/P tonsillectomy and adenoidectomy Status post total shoulder arthroplasty (10/17/18) right History of carpal tunnel release B/L H/O ventral hernia repair History of appendectomy History of cholecystectomy Family History Mother Diabetes Coronary heart disease Myocardial infarction S/P CABG x 3 Hypertension Gallbladder disease Sister Hodgkins lymphoma Brother Kidney disease Grandmother Breast cancer Aunt Ovarian cancer Father , 02/11/20. Peripheral vascular disease Daughter Diabetes Other Cancer No family history of adverse response to anesthesia Denies family history of Prostate cancer Colorectal cancer Social History Smoking Status: Never smoker Tobacco Type: Cigarettes Age Started Using Tobacco: 22; Age Quit Using Tobacco: 24; packs per day: 1; Second Hand Exposure: No; Do You Dip or Chew Tobacco: No; Hx Alcohol Use: No Hx Substance Use: No Preferred Language: Angolan 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 Ability: Effective Visual Impairment: Limited Hearing Ability: Normal Life Skills Coach Required: No Beliefs That Will Affect Care: None marital status: marital status details: ; lives with parents & 1 daughter Current Living Situation: Family Current Living Situation Comment: lives with mom and dtr current occupational status: disabled other: worked in [employer] in [place]; 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 Physical Exam 64-year-old female reclined in her hospital bed in no acute distress. Patient is alert and oriented. Vital signs reviewed. Right hip: No overlying skin changes. Tenderness to palpation along the greater trochanter and along the lateral thigh. Patient has significantly limited flexion of the hip. Approximately 0 to 40 degrees. Patient has significantly limited internal extra rotation of the hip approximately 20 degrees in both directions. Further examination of the hip was adjourned secondary to pain. Imaging: Both CT and plain films were reviewed. Patient has severe arthritis of the right hip. Both imaging studies show [id number] arthritis. CT shows cystic lesions of both the acetabulum and femoral head. Reports from both the studies can be read in the results and data section below. Results & Data Results & Data Laboratory Results 02/12/25 02/12/25 02/12/25 11:28 07:45 05:52 WBC 8.66 RBC 4.41 Hgb 11.7 L Hct 35.4 L MCV 80.3 MCH 26.5 MCHC 33.1 RDW Std Deviation 42.5 RDW Coeff of Cleo 14.6 H Plt Count 275 MPV 9.6 Sodium 138 Potassium 3.9 Chloride 95 L Carbon Dioxide 38 H Anion Gap 5 BUN 17 Creatinine 1.47 H Est Cr Clr Drug Dosing 61.0 eGFR 40.12 BUN/Creatinine Ratio 11.6 Glucose 96 POC Glucose 107 H 88 Calcium 8.9 02/11/25 02/11/25 20:30 16:25 WBC RBC Hgb Hct MCV MCH MCHC RDW Std Deviation RDW Coeff of Cleo Plt Count MPV Sodium Potassium Chloride Carbon Dioxide Anion Gap BUN Creatinine Est Cr Clr Drug Dosing eGFR BUN/Creatinine Ratio Glucose POC Glucose 132 H 100 H Calcium Diagnostic Findings Hip CT 02/12/25 07:31 CT hip RT wo con CLINICAL HISTORY: Hip pain COMPARISON STUDY: 09/03/2024 FINDINGS: There are severe degenerative changes at the right hip with severe joint space narrowing and subchondral sclerosis and cysts. No fracture or dislocation seen. No evidence of osteomyelitis. No soft tissue hematoma seen. IMPRESSION: Severe degenerative changes at the right hip. ACT 112: Negative or not required by law. Electronically signed by: Yohan Wright M.D. 02/12/2025 1:52 PM Hip/Pelvis X-Ray 02/12/25 13:54 XR hip RT 2V w pelvis CLINICAL HISTORY: Hip pain COMPARISON: 09/02/2024 FINDINGS: No fracture or dislocation. There are severe degenerative changes at both hips with severe joint space narrowing, right greater than left. SI joints are unremarkable. There are lower lumbar degenerative changes. IMPRESSION: Severe degenerative changes of both hips, right greater than left. ACT 112: Negative or not required by law. Electronically signed by: Yohan Wright M.D. 02/12/2025 3:21 PM PG Care Time/CCT Total # of Minutes Spent Total Time Spent with Patient: Total time spent is greater than 50% in coordination of care (as documented) at patient's floor/unit and/or counseling patient: [place] [address] IN/OBS CONSULT LVL 2,35M Patient Type New Medical Decision Making Low Complexity Diagnoses Primary osteoarthritis of right hip M16.11 Laterality: right Osteoarthritis type: primary (1) Osteoarthritis of hip Laterality: right Osteoarthritis type: primary Qualified Code(s): M16.11 - Unilateral primary osteoarthritis, right hip
--- NOTE | 2025-02-12 15:22 | XRay Report ---
XR hip RT 2V w pelvis CLINICAL HISTORY: Hip pain COMPARISON: 09/02/2024 FINDINGS: No fracture or dislocation. There are severe degenerative changes at both hips with severe joint space narrowing, right greater than left. SI joints are unremarkable. There are lower lumbar d egenerative changes. IMPRESSION: Severe degenerative changes of both hips, right greater than left. ACT 112: Negative or not required by law. Electronically signed by: Yohan Wright M.D. 02/12/2025 3:21 PM
--- NOTE | 2025-02-12 15:29 | Palliative Care Progress Note ---
Date of Service February 12, 2025 Assessment & Plan (1) Hip pain, right: Plan: Patient c/o 10::10 pain in right hip and lower back radiating down inner thigh to her knee. She has minimal relief from current pain regime and states that at best pain has been a 6::10 over weekend. Discussed increase in dose of oxycodone, pt agreeable. Increase Oxycodone HCl IR to 7.5 mg PO Q6H PRN (2) Foot pain, left: Plan: (3) Therapeutic opioid-induced constipation (OIC): Plan: Pt had BM this morning, counseled pt on importance of prevention of constipation while on opiods. (4) Weakness generalized: Plan: Deconditioning secondary to frequent hospitalization, progressive chronic illness and prolonged bedrest, pt would like Ortho consult to determine surgical options and PT/rehab to optimize strength and functional independence. (5) Palliative care by specialist: Plan: Palliative care will continue to follow for ongoing pain management and patient support. Plan as above Admission and Anticipated Discharge Date Admission Date: February 08, 2025 Subjective pt assessed at bedside, sitting up in chair, no visitors present. NAD on RA. Pt shared that she has 10::10 pain in right hip and lower back radiating down inner thigh to her knee. She has minimal relief from current pain regime. Review of Systems Review of Systems: All systems reviewed & are unremarkable except as noted in Subjective Physical Exam Constitutional: + ill appearing and + morbidly obese; no acute distress and not in distress Eyes: PERRL, conjunctivae normal, anicteric sclerae Respiratory: normal respiratory effort, lungs clear to auscultation Gastrointestinal (Abdomen): normal bowel sounds, soft, nontender, no hepatosplenomegaly Skin: no rashes, warm and dry Neurologic: PERRL, EOMI, accommodation nl, no face palsy, no dysarthria Psychiatric: A+Ox3, euthymic affect Results & Data Vital Signs (Past 12 Hours) Vital Signs Temp Pulse Resp BP Pulse Ox O2 Del Method 02/12/25 14:12 37.0 C 81 16 114/76 93 Room Air 02/12/25 08:24 36.3 C L 72 16 124/79 94 Room Air Laboratory Results Abnormal lab results 02/11/25 02/11/25 02/12/25 Range/Units 16:25 20:30 05:52 Hgb 11.7 L (12.0-16.0) g/dl Hct 35.4 L (37.0-47.0) % RDW Coeff of Cleo 14.6 H (11.5-14.5) % Chloride 95 L (98-107) mmol/L Carbon Dioxide 38 H (21-32) mmol/L Creatinine 1.47 H (0.6-1.2) mg/dl POC Glucose 100 H 132 H (70-99) mg/dl 02/12/25 Range/Units 11:28 Hgb (12.0-16.0) g/dl Hct (37.0-47.0) % RDW Coeff of Cleo (11.5-14.5) % Chloride (98-107) mmol/L Carbon Dioxide (21-32) mmol/L Creatinine (0.6-1.2) mg/dl POC Glucose 107 H (70-99) mg/dl Diagnostic Findings Chest X-Ray 02/08/25 11:23 XR chest 1V portable CLINICAL HISTORY: Chest pain, nonspecific COMPARISON STUDY: 12/06/2024 FINDINGS: Stable mild cardiomegaly without pulmonary vascular congestion. No consolidation or pleural effusion. No pneumothorax. IMPRESSION: No acute findings. ACT 112: Negative or not required by law. Electronically signed by: Yohan Wright M.D. 02/08/2025 11:56 AM Foot X-Ray 02/08/25 11:24 XR foot LT min 3V routine CLINICAL HISTORY: 2 wounds base left foot COMPARISON: 01/08/2025 FINDINGS: Stable amputation of the third toe. There is soft tissue swelling at the great toe and about the first MTP joint. No acute fracture or dislocation is seen. No evidence of osteomyelitis. IMPRESSION: No osteomyelitis seen. ACT 112: Negative or not required by law. Electronically signed by: Yohan Wright M.D. 02/08/2025 12:01 PM Venous Doppler Study 02/08/25 11:24 BILATERAL LOWER EXTREMITY VENOUS DOPPLER HISTORY: Acute pain and swelling of the lower legs swelling b/l COMPARISON STUDY: None. FINDINGS: Limited exam secondary to patient body habitus and subcutaneous edema. There is normal compressibility, flow, and augmentation within the bilateral lower extremity deep venous systems. IMPRESSION: No DVT within the right or left lower extremity. ACT 112: Negative or not required by law. Electronically signed by: Reinaldo Todd M.D. 02/08/2025 12:[address] 02/12/25 07:31 CT hip RT wo con CLINICAL HISTORY: Hip pain COMPARISON STUDY: 09/03/2024 FINDINGS: There are severe degenerative changes at the right hip with severe joint space narrowing and subchondral sclerosis and cysts. No fracture or dislocation seen. No evidence of osteomyelitis. No soft tissue hematoma seen. IMPRESSION: Severe degenerative changes at the right hip. ACT 112: Negative or not required by law. Electronically signed by: Yohan Wright M.D. 02/12/2025 1:52 PM Medications Administered Current Inpatient Medications Acetaminophen (Acetaminophen 325 Mg Tab) 650 mg PO Q4H PRN PRN Reason: pain/fever Stop: 03/10/25 14:43 Last Admin: 02/12/25 09:06 Dose: 650 mg Allopurinol (Allopurinol 100 Mg Tab) 100 mg PO BID [facility] Stop: 03/10/25 20:59 Last Admin: 02/12/25 09:07 Dose: 100 mg Aspirin (Aspirin 81 Mg Ectab) 81 mg PO QAM [facility] Stop: 03/11/25 08:59 Last Admin: 02/12/25 09:08 Dose: 81 mg Bupropion HCl (Bupropion Xl 300 Mg Tabcr) 300 mg PO QAM [facility] Stop: 03/11/25 08:59 Last Admin: 02/12/25 09:08 Dose: 300 mg Buspirone HCl (Buspirone 15 Mg Tab) 15 mg PO QID [facility] Stop: 03/10/25 14:43 Last Admin: 02/12/25 12:43 Dose: 15 mg Calcium Carbonate (Calcium Carbonate 500 Mg Chewable Tab) 500 mg PO QAM [facility] Stop: 03/11/25 08:59 Last Admin: 02/12/25 09:08 Dose: 500 mg Cetirizine HCl (Cetirizine Hcl 10 Mg Tablet) 10 mg PO BID [facility] Stop: 03/10/25 20:59 Last Admin: 02/12/25 09:08 Dose: 10 mg Cyanocobalamin (Cyanocobalamin (B-12) 500 Mcg Tablet) 1,000 mcg PO QAM [facility] Stop: 03/11/25 08:59 Last Admin: 02/12/25 09:08 Dose: 1,000 mcg Duloxetine HCl (Duloxetine Hcl 60 Mg Cap) 60 mg PO BID [facility] Stop: 03/10/25 20:59 Last Admin: 02/12/25 09:08 Dose: 60 mg Enoxaparin Sodium (Enoxaparin Inj 40 Mg/0.4 Ml Syr) 40 mg SQ QAM [facility] Stop: 03/15/25 08:59 Gabapentin (Gabapentin 400 Mg Cap) 400 mg PO QID [facility] Stop: 03/10/25 14:43 Last Admin: 02/12/25 12:43 Dose: 400 mg Ceftriaxone Sodium (Rocephin) 2,000 mg in 50 mls @ 100 mls/hr IV Q24H [facility] Stop: 02/16/25 11:59 Last Infusion: 02/12/25 12:42 Dose: Infused Bumetanide 1 mg/ Syringe 4 mls @ 4 mls/min IV BID@0900,1700 [facility] Stop: 03/13/25 16:59 Last Admin: 02/12/25 09:08 Dose: 4 mls/min Insulin Aspart (Insulin Aspart Per Unit Charge) 0 units SC ACHS [facility] Stop: 03/10/25 16:29 Last Admin: 02/12/25 12:45 Dose: 5 units Oxycodone HCl (Oxycodone Hcl Ir 5 Mg Tab (Immediate Release)) 7.5 mg PO Q6H PRN PRN Reason: pain (scale score 7-10) Stop: 02/22/25 14:43 Pantoprazole Sodium (Pantoprazole 40 Mg Tab) 40 mg PO BID [facility] Stop: 03/10/25 20:59 Last Admin: 02/12/25 09:08 Dose: 40 mg Polyethylene Glycol (Polyethylene (Miralax) 17 Gm Pack) 17 gm PO DAILY PRN PRN Reason: Constipation Stop: 03/10/25 14:43 Last Admin: 02/12/25 09:07 Dose: 17 gm Potassium Chloride (Potassium Chloride Crtab 20 Meq Tabcr) 20 meq PO QAM [facility] Stop: 03/11/25 08:59 Last Admin: 02/12/25 09:08 Dose: 20 meq Vitamin D (Cholecalciferol 25 Mcg (1000 Units) Tab) 50 mcg PO TID [facility] Stop: 03/10/25 20:59 Last Admin: 02/12/25 12:43 Dose: 50 mcg PG Care Time/CCT Total # of Minutes Spent Total Time Spent with Patient: Total time spent is greater than 50% in coordination of care (as documented) at patient's floor/unit and/or counseling patient: Coding [place] [address] SUB INP/OBS CARE 50MIN Patient Type Established History Expanded Problem Focused Exam Expanded Problem Focused Medical Decision Making Moderate Complexity Diagnoses Hip pain, right M25.551 Foot pain, left M79.672 Therapeutic opioid-induced constipation (OIC) K59.03; T40.2X5A Weakness generalized R53.1 Palliative care by specialist Z51.5
[2025-02-13 08:00] LABS: Anion Gap 7.0 (3-11); Blood Urea Nitrogen 22.0 mg/dl (6-23); Calcium 9.4 mg/dl (8.6-10.3); Carbon Dioxide 35.0 mmol/L (21-32); Chloride 96.0 mmol/L (98-107); Creatinine Clr Calc Pharmacy 74.1 ml/min; Glucose 95.0 mg/dl (70-99(Fasting)); Potassium 3.6 mmol/L (3.5-5.1); Sodium 138.0 mmol/L (136-145)
[2025-02-13] MEDS: ENOXAPARIN INJ 40 MG/0.4 ML SYR SQ SCH (08:41)
[2025-02-13] MEDS ORDERED: TRIAMCINOLONE ACET 0.1% CR 15 GM TUBE EXT PRN (09:21)
--- NOTE | 2025-02-13 14:37 | Hospitalist Progress Note ---
"Date of Service February 13, 2025 Assessment & Plan (1) Cellulitis: (2) Lymphedema: (3) Acute kidney injury superimposed on stage 3b chronic kidney disease: (4) Acute on chronic heart failure with preserved ejection fraction: (5) Hx-TIA (transient ischemic attack): (6) Diabetes mellitus type 2 with neurological manifestations: Plan 64-year-old woman with type 2 diabetes and neuropathy complicated by plantar ulcers, HFpEF and RV dysfunction, recurrent cellultits, who presents with worsening LE cellulitis. #Nonpurulent cellulitis bilateral lower extremity - Failed outpatient management (doxycyline). Foot xray without evidence of ostemylitis. Doppler negative for DVT. Most recent wound culture grew MSSA - continue IV ceftriaxone Per Dr. Somers - to remain NWB LLE Erythema is improving, mobility significantly limited 2/2 hip pain PT/OT rec rehab, CM following - ? consider knee scooter Right Hip pain | Severe hip Osteoarthritis POA Hip CT revealed severe degenerative changes of the hip, no osteo. Consult ortho - cannot have hip surgery while she has an infected wound on her foot, needs to be able to bear weight on LLE to have right hip done. Could consider amputation of LLE to speed up the process, hip could be done 4-6 weeks later. Discussed this with patient 02/13 - she is not interested in amputation at this time and just wants wound to heal. Will continue with pain management of R hip #T2DM With neuropathy, on gabapentin A1c 5.5% on 01/09/2025. Hold Jardiance Loose SSI with target BSG range 110-150mg/dL, CF 40, carb ratio deferred BSG acceptable #HFpEF Daily weights, Strict I&O monitoring Resume torsemide 60mg p.o. BID Continue spironolactone 25 mg p.o. daily Monitor BMP with diuresis, so far kidney function stable # Chronic back pain Currently taking oxycodone 5 mg tablets; prescribed in December 2024; - increased to 7.5mg Q6h per palliative Oxycodone for left foot pain/right hip pain Diclofenac gel application QID #ANDRZEJ CPAP HS #HTN Continue losartan, metoprolol #CKD, stage IIIa/b Serum creatinine close to baseline Caution use of nephrotoxic agents #Gout Continue allopurinol #Asthma | Allergies Continue cetirizine, hydroxyzine, montelukast, inhaler, and nebs #Anxiety | Depression Continue buspirone, bupropion, duloxetine #GERD Continue famotidine, pantoprazole, and sucralfate PRN #H/o CVA April 2017; continue aspirin Disposition;awaiting SNF DVT proh: lovenox added Admission and Anticipated Discharge Date Admission Date: February 08, 2025 Subjective Patient seen sitting up in bed, we discussed the results of her ortho consult yesterday. She states she is not ready to have an amputation. Her hip pain is managable at this time but will consider concerned about new rash on arm, itchy and raised. Happened overnight, denies having an IV site in the area Review of Systems Review of Systems: All systems reviewed & are unremarkable except as noted in Subjective Physical Exam Physical Exam: General: NAD, vitals as above, sitting on the side of bed Pulm: breathing unlabored CV: well perfused extremities: moves all extremities skin: small rash to left inner forearm, raised and erythematous Results & Data Results & Data Vital Signs (Past 12 Hours) Vital Signs Temp Pulse Resp BP Pulse Ox O2 Del Method 02/13/25 08:00 97.9 F 71 18 119/71 97 Room Air Laboratory Results BMP reviewed PG Care Time/CCT Total # of Minutes Spent Total Time Spent with Patient: Total time spent is greater than 50% in coordination of care (as documented) at patient's floor/unit and/or counseling patient: Coding Level of Care Code 79492 SUB INP/OBS CARE 2/35MIN Diagnoses Cellulitis L03.90 Site of cellulitis: unspecified site Lymphedema I89.0 Acute kidney injury superimposed on stage 3b chronic kidney disease N17.9; N18.32 Acute on chronic heart failure with preserved ejection fraction I50.33 Hx-TIA (transient ischemic attack) Z86.73 Diabetes mellitus type 2 with neurological manifestations E11.49 (1) Cellulitis Site of cellulitis: unspecified site Qualified Code(s): L03.90 - Cellulitis, unspecified"
[2025-02-13] MEDS: TORSEMIDE 20 MG TAB PO SCH (17:19)
--- NOTE | 2025-02-14 14:04 | Hospitalist Progress Note ---
"Date of Service February 14, 2025 Assessment & Plan (1) Cellulitis: (2) Lymphedema: (3) Acute kidney injury superimposed on stage 3b chronic kidney disease: (4) Acute on chronic heart failure with preserved ejection fraction: (5) Hx-TIA (transient ischemic attack): (6) Diabetes mellitus type 2 with neurological manifestations: Plan 64-year-old woman with type 2 diabetes and neuropathy complicated by plantar ulcers, HFpEF and RV dysfunction, recurrent cellultits, who presents with worsening LE cellulitis. #Nonpurulent cellulitis bilateral lower extremity - Failed outpatient management (doxycyline). Foot xray without evidence of ostemylitis. Doppler negative for DVT. Most recent wound culture grew MSSA - continue IV ceftriaxone Per Dr. Somers - to remain NWB LLE Erythema is improving, mobility significantly limited 2/2 hip pain PT/OT rec rehab, CM following - ? consider knee scooter - pt reluctant to try Right Hip pain | Severe hip Osteoarthritis POA Hip CT revealed severe degenerative changes of the hip, no osteo. Consult ortho - cannot have hip surgery while she has an infected wound on her foot, needs to be able to bear weight on LLE to have right hip done. Could consider amputation of LLE to speed up the process, hip could be done 4-6 weeks later. Discussed this with patient 02/13 - she is not interested in amputation at this time and just wants wound to heal. Will continue with pain management of R hip #T2DM With neuropathy, on gabapentin A1c 5.5% on 01/09/2025. Hold Jardiance Loose SSI with target BSG range 110-150mg/dL, CF 40, carb ratio deferred BSG acceptable #HFpEF Daily weights, Strict I&O monitoring Resume torsemide 60mg p.o. BID Continue spironolactone 25 mg p.o. daily Monitor BMP with diuresis, so far kidney function stable # Chronic back pain Currently taking oxycodone 5 mg tablets; prescribed in December 2024; - increased to 7.5mg Q6h per palliative Oxycodone for left foot pain/right hip pain Diclofenac gel application QID #ANDRZEJ CPAP HS #HTN Continue losartan, metoprolol #CKD, stage IIIa/b Serum creatinine close to baseline Caution use of nephrotoxic agents #Gout Continue allopurinol #Asthma | Allergies Continue cetirizine, hydroxyzine, montelukast, inhaler, and nebs #Anxiety | Depression Continue buspirone, bupropion, duloxetine #GERD Continue famotidine, pantoprazole, and sucralfate PRN #H/o CVA April 2017; continue aspirin Disposition;awaiting SNF DVT proh: lovenox added Admission and Anticipated Discharge Date Admission Date: February 08, 2025 Subjective patient seen sitting up in the chair knows that we are waiting for insurance auth reports pain is much better controlled with the increase in her oxycodone still not interested in amputation Review of Systems Review of Systems: All systems reviewed & are unremarkable except as noted in Subjective Physical Exam Physical Exam: General: NAD, vitals as above, sitting on the side of bed Pulm: breathing unlabored CV: well perfused extremities: moves all extremities, LE non pitting edema, venous stasis changes Results & Data Results & Data Vital Signs (Past 12 Hours) Vital Signs Temp Pulse Resp BP Pulse Ox O2 Del Method 02/14/25 07:30 97.7 F 80 16 128/78 97 Room Air Laboratory Results POC BSG reviewed - acceptable PG Care Time/CCT Total # of Minutes Spent Total Time Spent with Patient: Total time spent is greater than 50% in coordination of care (as documented) at patient's floor/unit and/or counseling patient: Coding Level of Care Code 79922 SUB INP/OBS CARE 06/10MIN Diagnoses Cellulitis L03.90 Site of cellulitis: unspecified site Lymphedema I89.0 Acute kidney injury superimposed on stage 3b chronic kidney disease N17.9; N18.32 Acute on chronic heart failure with preserved ejection fraction I50.33 Hx-TIA (transient ischemic attack) Z86.73 Diabetes mellitus type 2 with neurological manifestations E11.49 (1) Cellulitis Site of cellulitis: unspecified site Qualified Code(s): L03.90 - Cellulitis, unspecified"
[2025-02-15 06:27] LABS: Creatinine Clr Calc Pharmacy 64.5 ml/min
[2025-02-15] MEDS: LIDOCAINE 5% 1 PATCH TD STA (10:58)
--- NOTE | 2025-02-15 16:20 | Hospitalist Progress Note ---
"Date of Service February 15, 2025 Assessment & Plan (1) Cellulitis: (2) Lymphedema: (3) Acute kidney injury superimposed on stage 3b chronic kidney disease: (4) Acute on chronic heart failure with preserved ejection fraction: (5) Hx-TIA (transient ischemic attack): (6) Diabetes mellitus type 2 with neurological manifestations: Plan 64-year-old woman with type 2 diabetes and neuropathy complicated by plantar ulcers, HFpEF and RV dysfunction, recurrent cellultits, who presents with worsening LE cellulitis. #Nonpurulent cellulitis bilateral lower extremity - Failed outpatient management (doxycyline). Foot xray without evidence of ostemylitis. Doppler negative for DVT. Most recent wound culture grew MSSA - continue IV ceftriaxone Per Dr. Somers - to remain NWB LLE Erythema is improving, mobility significantly limited 2/2 hip pain PT/OT rec rehab, CM following - ? consider knee scooter - pt reluctant to try Right Hip pain | Severe hip Osteoarthritis POA Hip CT revealed severe degenerative changes of the hip, no osteo. Consult ortho - cannot have hip surgery while she has an infected wound on her foot, needs to be able to bear weight on LLE to have right hip done. Could consider amputation of LLE to speed up the process, hip could be done 4-6 weeks later. Discussed this with patient 02/13 - she is not interested in amputation at this time and just wants wound to heal. Will continue with pain management of R hip #T2DM With neuropathy, on gabapentin A1c 5.5% on 01/09/2025. Hold Jardiance SSI Parameters loosened today #HFpEF Daily weights, Strict I&O monitoring Resume torsemide 60mg p.o. BID Continue spironolactone 25 mg p.o. daily Monitor BMP with diuresis, so far kidney function stable # Chronic back pain Currently taking oxycodone 5 mg tablets; prescribed in December 2024; - increased to 7.5mg Q6h per palliative Oxycodone for left foot pain/right hip pain Diclofenac gel application QID Add lidocaine patch and heat for associated back pain #ANDRZEJ CPAP HS #HTN Continue losartan, metoprolol #CKD, stage IIIa/b Serum creatinine close to baseline Caution use of nephrotoxic agents #Gout Continue allopurinol #Asthma | Allergies Continue cetirizine, hydroxyzine, montelukast, inhaler, and nebs #Anxiety | Depression Continue buspirone, bupropion, duloxetine #GERD Continue famotidine, pantoprazole, and sucralfate PRN #H/o CVA April 2017; continue aspirin Disposition;awaiting SNF DVT proh: lovenox added Admission and Anticipated Discharge Date Admission Date: February 08, 2025 Subjective Patient seen sitting up in the chair legs look improved pain is more in her back today - agreeable to lidocaine patch and heat Review of Systems Review of Systems: All systems reviewed & are unremarkable except as noted in Subjective Physical Exam Physical Exam: General: NAD, vitals as above, sitting up in the chair Pulm: breathing unlabored CV: well perfused Back: diffused MSK tenderness extremities: moves all extremities, LE non pitting edema, venous stasis changes Results & Data Results & Data Vital Signs (Past 12 Hours) Vital Signs Temp Pulse Resp BP Pulse Ox O2 Del Method 02/15/25 15:41 97.3 F L 74 18 121/78 99 Room Air 02/15/25 07:30 Room Air 02/15/25 07:11 97.2 F L 74 18 132/82 97 Room Air Laboratory Results Cr reviewed POC BSG reviewed PG Care Time/CCT Total # of Minutes Spent Total Time Spent with Patient: Total time spent is greater than 50% in coordination of care (as documented) at patient's floor/unit and/or counseling patient: Coding Level of Care Code 59319 SUB INP/OBS CARE 06/10MIN Diagnoses Cellulitis L03.90 Site of cellulitis: unspecified site Lymphedema I89.0 Acute kidney injury superimposed on stage 3b chronic kidney disease N17.9; N18.32 Acute on chronic heart failure with preserved ejection fraction I50.33 Hx-TIA (transient ischemic attack) Z86.73 Diabetes mellitus type 2 with neurological manifestations E11.49 (1) Cellulitis Site of cellulitis: unspecified site Qualified Code(s): L03.90 - Cellulitis, unspecified"
[2025-02-15] MEDS: REMOVE LIDODERM PATCH SCH (21:11)
[2025-02-15] MEDS: HYDROmorphone INJ 0.5 MG/0.5 ML SYR IV STA (21:31)
[2025-02-16] MEDS: ACETAMINOPHEN 500 MG TAB PO SCH (13:28)
[2025-02-16 15:57] VITALS: BP 122/77; PULSE 69; RESP 18; TEMP 97.9; O2SAT 94
--- NOTE | 2025-02-16 16:38 | Discharge Summary ---
Discharge Summary Date of Service February 16, 2025 Principal Dx & Hospital Course #1 = Principal Diagnosis (1) Cellulitis: (2) Lymphedema: (3) Acute kidney injury superimposed on stage 3b chronic kidney disease: (4) Acute on chronic heart failure with preserved ejection fraction: (5) Hx-TIA (transient ischemic attack): (6) Diabetes mellitus type 2 with neurological manifestations: Ricky Tristan is a 64 year old female admitted to [facility] from February 08 - February 16, 2025 due to cellulitis from left diabetic foot ulcer. She was treated with ceftriaxone during her inpatient stay and completed a course of intravenous ceftriaxone therefore no further antibiotics required on discharge. She should continue nonweightbearing left foot. Continue CAM boot to right foot for transfers. - Continue once daily dressing change to plantar left foot wounds with Aquacel Ag and a dry sterile dressing. - Change dressing to the dorsal abrasion of the left foot with Aquacel Ag and a dry sterile dressing daily. - Elevate feet to help reduce fluid accumulation and promote healing Notes For Next Care Provider Follow up with podiatry as outpatient Medication Changes From Visit Torsemide has been increased to help with swelling (previously was on Bumex total 6mg/day) Started Celebrex as needed for up to two weeks to help with pain but recheck BMP in 1 week to make sure Cr not going above 1.8. Oxycodone has also been increased temporarily to help with pain but this should be weaned as able. Start clotrimazole cream to help with crusting of skin on feet. Admission HPI Per Admitting Provider Is a 65-year-old female with a history of obstructive sleep apnea, morbid obesity, previous CVA, heart failure with preserved ejection fraction, recurrent lower extremity cellulitis diabetic foot infections who presents to the hospital today on account of worsening lower extremity swelling and redness. Patient has a history of recurrent lower extremity cellulitis and also diabetic foot infections and often goes to wound care. Has been admitted to the hospital several times for the same complaint. Last time she was discharged from this facility was January 13, 2025 after she was managed for diabetic foot ulcer, she completed a course of daptomycin metronidazole and cefepime. However over the past several days, she noticed that her legs were beginning to get more swollen and red. She denies fevers or chills and denies any weeping wounds. Here in the emergency department WBC was 11,000. Cultures have been obtained and she has been empirically started on IV antibiotics and will be admitted to the hospital further management. Discharge Exam Respiratory normal respiratory effort, lungs clear to auscultation Cardiovascular RRR, no murmur, no edema Gastrointestinal (Abdomen) normal bowel sounds, soft, nontender, no hepatosplenomegaly Skin Discharge Plan Discharge Items Patient Disposition: Transfer Nursing Home Fac Reason For Visit: CELLULITIS Discharge Diagnosis: Cellulitis Condition on Discharge: Fair Activity: As commented below Activity Comment: Non weight bearing left foot Non-emergency contact: Primary Care Provider Call non-emergency contact if: you have any medication questions and your symptoms worsen Follow-up/Referrals: Awilda Eric CRNP [Primary Care Provider] - Jerrell Somers DPM [Surgeon] - (Follow up diabetic foot ulcer) Diet: Carb Consistent or DM2 Addtl Attending Provider Instructions: You were admitted to [facility] from February 08 - February 16, 2025 due to cellulitis from left diabetic foot ulcer. You were treated with ceftriaxone during you inpatient stay and completed a course of antibiotics therefore no further antibiotics required on discharge. Continue nonweightbearing left foot. Continue CAM boot to right foot for transfers. - Continue once daily dressing change to plantar left foot wounds with Aquacel Ag and a dry sterile dressing. - Change dressing to the dorsal abrasion of the left foot with Aquacel Ag and a dry sterile dressing daily. - Elevate feet to help reduce fluid accumulation and promote healing Torsemide has been increased to help with swelling (previously was on Bumex total 6mg/day). Start Celebrex as needed for up to two weeks to help with pain but recheck BMP in 1 week to make sure Cr not going above 1.8. Start clotrimazole cream to help with crusting of skin on feet Oxycodone has also been increased temporarily to help with pain but this should be weaned as able. Follow up with podiatry as outpatient Pending Studies at Discharge: No Stand-Alone Forms: [facility] Skilled Items Patient informed of condition?: Yes DNR: No Discharge Level of Care: Acute rehab Communicable Disease: Yes (Hx MRSA) Discharge Prognosis: Stable Lines: None Urinary Catheter: No Medications and DC Order Prescriptions: New clotrimazole 1 % cream 1 applic topical AMPM 28 Days Qty: 45 0RF celecoxib [Celebrex] 200 mg capsule 200 mg PO DAILY Qty: 14 0RF acetaminophen 500 mg tablet 1,000 mg PO TID Qty: 90 0RF oxycodone 5 mg Tablet 7.5 mg PO Q6H PRN (Reason: pain) Qty: 30 0RF Continued gentamicin 0.1 % ointment 1 applic topical DAILY 14 Days Qty: 30 1RF (DME) CPAP Supplies Misc See Rx Instructions .Route Qty: 1 0RF Rx Instructions: As directed (DME) CPAP Machine Misc See Rx Instructions .Route Qty: 1 0RF Rx Instructions: As directed 11cm water pressure Jardiance 10 mg tablet 10 mg PO QAM Qty: 90 3RF Hold Instructions: Provider's Order Rx Instructions: for congestive heart failure montelukast [Singulair] 10 mg tablet 10 mg PO QPM Qty: 90 3RF albuterol sulfate [Ventolin HFA] 90 mcg/actuation HFA aerosol inhaler 2 puff INHALATION Q4H PRN (Reason: Shortness Of Breath Or Wheezing) Qty: 18 3RF gabapentin 400 mg capsule 400 mg PO QID Qty: 360 0RF allopurinol 100 mg tablet 100 mg PO BID Qty: 180 1RF pantoprazole [Protonix] 40 mg tablet,delayed release (DR/EC) 40 mg PO BID Qty: 90 3RF potassium chloride [Klor-Con M20] 20 mEq tablet,ER particles/crystals 20 meq PO QAM Qty: 90 3RF aspirin 81 mg tablet,delayed release (DR/EC) 81 mg PO QAM albuterol sulfate 2.5 mg /3 mL (0.083 %) solution for nebulization 2.5 mg inhalation Q6H PRN (Reason: Shortness Of Breath) Qty: 90 1RF Rx Instructions: needed spironolactone 25 mg tablet 25 mg PO BID Qty: 180 3RF Rx Instructions: ON HOLD FOR TWO WEEKS OF 12/04/2024 buspirone 15 mg tablet 15 mg PO QID bupropion HCl 150 mg tablet extended release 24 hr 300 mg PO QAM cyanocobalamin (vitamin B-12) [Vitamin B-12] 1,000 mcg tablet 1,000 mcg PO QAM Tums 300 mg (750 mg) tablet,chewable 900 mg PO QAM diclofenac sodium [Voltaren Arthritis Pain] 1 % Gel 4 g EXT QID Qty: 1 0RF Rx Instructions: purchase [id number]; may use 4 grams on your lower back, either knee, either hip, back of neck. nystatin 100,000 unit/gram powder 1 applic topical TID PRN (Reason: yeast rash under breasts, abdominal skin folds) Qty: 30 0RF hydroxyzine HCl 25 mg tablet 25 mg PO HS cholecalciferol (vitamin D3) [Vitamin D3] 50 mcg (2,000 unit) capsule 2,000 unit PO TID sennosides [Senokot] 8.6 mg tablet 17.2 mg PO BID Rx Instructions: purchase [id number] famotidine 40 mg tablet 40 mg PO QPM polyethylene glycol 3350 [Miralax] 17 gram/dose powder 17 g PO DAILY PRN (Reason: Constipation) Rx Instructions: Take 17gm mixed in 8 ounces of water once daily. Can be increased up to TID as needed for constipation. cetirizine [Zyrtec] 10 mg tablet 10 mg PO BID epinephrine 0.3 mg/0.3 mL auto-injector 0.3 mg IM UD PRN (Reason: anaphylaxis) losartan 25 mg tablet 25 mg PO QAM nystatin 100,000 unit/gram ointment 1 applic EXT TID PRN (Reason: FLARE) multivitamin [Daily-Holli] Tablet 1 tab PO QAM duloxetine 60 mg capsule,delayed release(DR/EC) 60 mg PO BID metoprolol succinate 25 mg tablet extended release 24 hr 25 mg PO QAM Changed torsemide 20 mg Tablet 60 mg PO BID17 Qty: 30 0RF Discontinued tramadol 50 mg tablet 50 mg PO BID PRN (Reason: pain) Qty: 30 0RF acetaminophen 500 mg tablet 1,000 mg PO TID PRN (Reason: fever or pain) Qty: 90 0RF Discharge Orders: Discharge Order (Routine); Ordered 02/16/25 Ordered By: Candido Uriarte/Other Patient Handouts: Nutrition for Wound Healing, Managing Type 2 Diabetes Admission Data Admit Date/Time: 02/08/25 12:50 Attending Provider: Candido Varma Admit Provider: Leonel Boyd Primary Care Provider: Awilda Eric Other Providers: Karly Ny; Sharron Betancourt; Ivan Dickerson; Sundeep Painter Hospital Stay Data Consultations 02/08/25 12:17 ED Decision to Admit Stat 02/09/25 09:20 Consult Palliative Care Routine 02/12/25 13:31 Consult Orthopedic Surgery Routine Diagnostic Imagining Performed 02/08/25 11:24 US venous doppler LE BI Stat 02/12/25 07:31 CT hip RT wo con Routine Pending Results Patient Have Any Pending Studies at Discharge: No Discharge Instructions Given to Patient (Per Discharging Provider) You were admitted to [facility] from February 08 - February 16, 2025 due to cellulitis from left diabetic foot ulcer. You were treated with ceftriaxone during you inpatient stay and completed a course of antibiotics therefore no further antibiotics required on discharge. Continue nonweightbearing left foot. Continue CAM boot to right foot for transfers. - Continue once daily dressing change to plantar left foot wounds with Aquacel Ag and a dry sterile dressing. - Change dressing to the dorsal abrasion of the left foot with Aquacel Ag and a dry sterile dressing daily. - Elevate feet to help reduce fluid accumulation and promote healing Torsemide has been increased to help with swelling (previously was on Bumex total 6mg/day). Start Celebrex as needed for up to two weeks to help with pain but recheck BMP in 1 week to make sure Cr not going above 1.8. Start clotrimazole cream to help with crusting of skin on feet Oxycodone has also been increased temporarily to help with pain but this should be weaned as able. Follow up with podiatry as outpatient Total Time Total Time Spent Total Time Spent (In Minutes): 40 Total Time Includes: Examination of the Patient, Discharge Planning and Medication Reconciliation Coding Level of Care Code 05252 INP/OBS DISCH >30 MIN Diagnoses Cellulitis L03.90 Site of cellulitis: unspecified site Lymphedema I89.0 Acute kidney injury superimposed on stage 3b chronic kidney disease N17.9; N18.32 Acute on chronic heart failure with preserved ejection fraction I50.33 Hx-TIA (transient ischemic attack) Z86.73 Diabetes mellitus type 2 with neurological manifestations E11.49
== END 2025-02-16 18:08 | DRG 602 ==
LOC: ED 10:59 → EDINP 12:50 → SUATTDRO 12:50 → 3E 14:43
DX: Z91.199 Patient's noncompliance with other medical treatment and regimen due to unspecified reason; N17.9 Acute kidney failure, unspecified; L03.116 Cellulitis of left lower limb; E11.49 Type 2 diabetes mellitus with other diabetic neurological complication; Z86.73 Personal history of transient ischemic attack (TIA), and cerebral infarction without residual deficits; Z88.0 Allergy status to penicillin; Z87.891 Personal history of nicotine dependence; I35.0 Nonrheumatic aortic (valve) stenosis; K21.9 Gastro-esophageal reflux disease without esophagitis; Z79.82 Long term (current) use of aspirin; L03.115 Cellulitis of right lower limb; I13.0 Hypertensive heart and chronic kidney disease with heart failure and stage 1 through stage 4 chronic kidney disease, or unspecified chronic kidney disease; J45.909 Unspecified asthma, uncomplicated; C83.3A Diffuse large B-cell lymphoma, in remission; I50.33 Acute on chronic diastolic (congestive) heart failure; I89.0 Lymphedema, not elsewhere classified; G47.33 Obstructive sleep apnea (adult) (pediatric); Z79.84 Long term (current) use of oral hypoglycemic drugs; E11.621 Type 2 diabetes mellitus with foot ulcer; M10.9 Gout, unspecified; Z86.14 Personal history of Methicillin resistant Staphylococcus aureus infection; E66.01 Morbid (severe) obesity due to excess calories; Z88.1 Allergy status to other antibiotic agents; L97.528 Non-pressure chronic ulcer of other part of left foot with other specified severity; M16.11 Unilateral primary osteoarthritis, right hip; N18.32 Chronic kidney disease, stage 3b